=== PATIENT | female | born 1975 | race Caucasian/White ===

== ENCOUNTER 2016-05-05 16:12 | Inpatient (IN) | payer OTHER ==
[~2016-05-05] VITALS: Ht 167.6 cm; Wt 100.2 kg
[~2016-05-05 16:12] MED LIST: ALBUTEROL0.09 MG/A1 INH; ALBUTEROL1.25 MG/3 INH; AMITRIPTYLINE50 MG PO; ANUSOL-HC30 GM TOP; ATIVAN0.5 MG PO; ATIVAN1 M1 PO; ATIVAN1 MG PO; AUGMENTIN 875 M1 TAB PO; AUGMENTIN 875875 MG PO; BACTRIM 400 MG-1 TAB PO; BACTRIM DS 8001 TAB PO; BENADRYL25 MG PO; CLINDAMYCIN HC300 M1 PO; CYMBALTA 20 MG20 MG PO; DILAUDID2 MG PO; DIPHENHYDRAMINE25 M1 PO; DIPHENHYDRAMINE25 M4 PO; DRISDOL50000 UNIT PO; FLAGYL500 MG/100 IV; FORTAZ IV; GABAPENTIN300 MG PO; HYDROCORTISONE30 G1 TOP; HYDROXYZINE HCL50 M1 PO; HYDROXYZINE50 MG PO; KEFLEX500 MG PO; LANTUS SOLOS100 U/ML SC; LEVEMIR 10100 UNITS/ SC; LEVEMIR FL100 UNIT/1 SC; LEVEMIR FL300 UNITS/ SC; LEVEMIR FLEX100 U/M1 SC; LEVEMIR100 U/ML SC; LEVEMIR100 UNIT/1 SC; LEXAPRO5 MG PO; LOMOTIL 2.5-0.1 EACH PO; LORAZEPAM1 MG PO; LYRICA150 M1 PO; LYRICA25 MG PO; LYRICA75 M1 PO; MELATONIN3 MG PO; MICORT-HC28.4 GM TOP; MYCOSTATIN POWD15 GM TOP; Mucinex PO; NOVOLOG 10300 UNITS/ SC; NOVOLOG100 U/ML; NOVOLOG100 U/ML SC; NOVOLOG100 UNIT/2 SC; ONE DAILY MULT1 EAC2 PO; OXACILLIN SODIUM2 G1 IV; OXACILLIN SODIUM2 G2 IV; OXACILLIN2 GM/50 M1 IV; OXYCODONE HCL15 M1 PO; OXYCODONE HCL5 M1 PO; OXYCODONE5 M1 PO; OXYCONTIN15 MG PO; OXYCONTIN30 MG PO; PERCOCET 325 MG1 TA2 PO; PERCOCET 325 MG1 TAB PO; PERCOCET 5-3251 EACH PO; PHENERGAN25 M1 PO; PHENERGAN25 MG PR; PREDNISONE 20MG20 MG PO; PREDNISONE10 MG PO; PRILOSEC 20MG C20 MG PO; PROAIR HFA0.09 MG/Ac INH; PROAIR HFA0.09 MG/Ac PO; PROAIR HFA8.5 GM INH; PROMETHAZINE12.5 M1 PO; PROMETHAZINE25 M1 PO; PROPRANOLOL HCL20 M1 PO; REGLAN10 M1 PO; REGLAN10 MG PO; ROXICODONE15 M1 PO; ROXICODONE30 MG PO; ROXICODONE5 M1 PO; SEROQUEL (MONO200 MG PO; SEROQUEL 100MG100 MG PO; TRAMADOL HCL50 M1 PO; TRIAMCINOLONE A15 G3 TOP; TYLENOL TAB 32325 MG PO; VALIUM5 M2 PO; VANCOMYCIN 11000 MG IV; VANCOMYCIN HCL125 MG PO; VANCOMYCIN HCL5 G1 PO; XANAX1 M1 PO; ZOFRAN ODT4 M1 PO; ZOFRAN ODT4 M1 SL; ZOFRAN4 M2 PO; ZOSYN 4 GM/100100 ML OTHER
--- NOTE | 2016-05-05 16:15 | ED GENERAL ADULT ---
See Addendum History of Present Illness General Chief Complaint: Female Urogenital Problems Stated Complaint: BIBA PELVIC PAIN Source: patient Exam Limitations: poor historian Vital Signs & Intake/Output Vital Signs & Intake/Output Vital Signs Date Time Temp Pulse Resp B/P Pulse O2 O2 Flow FiO2 Ox Delivery Rate 05/05 2139 99.8 113 16 128/74 96 Room Air 05/05 1951 98.0 114 18 128/60 95 Room Air Room Air 05/05 1744 Room Air Room Air 05/05 1618 97.9 108 16 172/65 99 Room Air Allergies Coded Allergies: codeine (Intermediate, HIVES 05/05/16) nickel (Intermediate, RASH 05/05/16) adhesive tape (Mild, RASH 05/05/16) duloxetine (Intermediate, NAUSEA 05/05/16) hydrocodone (GI UPSET (ESOPHAGITIS) 05/05/16) ibuprofen (GI UPSET (ESOPHAGITIS) 05/05/16) Reconcile Medications Albuterol Sulfate (Proair Hfa) 90 MCG HFA.AER.AD 2 PUF INH Q4-6 PRN PRN SOB ( Reported) Diphenhydramine HCl (Benadryl) 25 MG CAPSULE 1 CAP PO Q6 PRN ITCHING ( Reported) Ergocalciferol (Vitamin D2) (Drisdol) 50,000 UNIT CAPSULE 1 CAP PO QW Supplement Please take one of these medications every week for the next eight weeks. After that, you will be required to take one every two weeks for mainainance of your vitamin D Levels. Hydrocortisone Acetate (Micort-Hc) 2.5 % CREAM.APPL 1 DEMETRA TOP TID ITCHING ( Reported) Hydroxyzine HCl 50 MG TABLET 1 TAB PO TID PRN itching Insulin Aspart (Novolog) 100 UNIT/ML VIAL 0 SC SEE ADMIN CRITERIA Diabetes Your insulin coverage was changed while in hospital. Sliding Scale Blood Sugar Less that 80mg/dl Initiate Hypoglycemia protocol 80-150 mg/dl 12 units 151-200 mg/dl 14 units 201-250 mg/dl 16 units 251-300 mg/dl 18 units 301-350 mg/dl 20 units 351-400 mg/dl 22 units More than 400 mg/dl 24 units call MD Please check your blood sugar at least three times a day. Inform your management consulting about this change. Insulin Detemir (Levemir) 100 UNIT/ML VIAL 50 UNITS SC BID DM (Reported) Ondansetron HCl (Zofran) 4 MG TABLET 1 TAB PO Q6-8P PRN nausea Oxacillin Sodium 2 GRAM VIAL.PORT 2,000 MG IV Q4 Sepsis Please dose 2000mg. Q4. IV. 100ml 0.9% NaCL Oxycodone HCl (Roxicodone) 15 MG TABLET 1 TAB PO TID PRN pain Pregabalin (Lyrica) 150 MG CAPSULE 1 CAP PO BID NEUROPATHY (Reported) Propranolol HCl 20 MG TABLET 1 TAB PO BID ANXIETY (Reported) Triage Nurses Notes Reviewed? yes Onset: Abrupt Duration: week(s): Timing: recent history Severity: severe HPI: 05/05/16 40-year-old female complains of severe pelvic pain. 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 She has severe pain in her pelvic area. The onset of the symptoms have been gradual, the duration has been days, the severity is significant as her symptoms required to come to the emergency department for care. She admits to low-grade fever. Also generalized myalgias. Past History Travel History Traveled to [place] past 21 day No Medical History Any Pertinent Medical History? see below for history Neurological: NONE EENT: hearing loss (? if real) Cardiovascular: NONE Respiratory: asthma Gastrointestinal: necrotizing fasciitis of the perineum Hepatic: NONE Renal: left pararenal abscess Musculoskeletal: OSTEOMYELITIS OF PUBIS PUBIS FX HX MRSA- CURRENTLY HAS PROLINE ACCESS L CHEST WALL FOR IV ABX. 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 FH: cirrhosis Hx Contributory? No Review of Systems Review of Systems Constitutional: Reports: fever. EENTM: Reports: no symptoms. Respiratory: Denies: short of breath. Cardiovascular: Reports: no symptoms. GI: Reports: abdominal pain (pelvic). Genitourinary: Reports: no symptoms. Musculoskeletal: Reports: see HPI. Skin: Reports: no symptoms. Neurological/Psychological: Reports: no symptoms. Hematologic/Endocrine: Reports: no symptoms. Physical Exam Physical Exam General Appearance: alert, awake, anxious, moderate distress Head: atraumatic, normal appearance Eyes: Bilateral: normal appearance, PERRL, EOMI. Ears, Nose, Throat: normal pharynx, normal ENT inspection Neck: normal inspection, supple Respiratory: normal breath sounds, chest non-tender, no respiratory distress Cardiovascular: regular rate/rhythm Peripheral Pulses: 4+ radial (R), 4+ radial (L) Gastrointestinal: soft, pain in bilateral inguinal ligament areas, severe tenderness with any motion of the pelvis, Back: decreased range of motion Extremities: pedal edema, tenderness Neurologic/Psych: no motor/sensory deficits, awake, alert, oriented x 3 Skin: intact, normal color, warm/dry Core Measures ACS in differential dx? No CVA/TIA Diagnosis: No Severe Sepsis Present: No Septic Shock Present: No Progress Differential Diagnoses I considered the following diagnoses in my evaluation of the patient: [ Hyponatremia, DKA, pelvic osteomyelitis, pelvic fracture, exacerbation of chronic.] Plan of Care: Orders Procedure Date/time Status Heart Healthy Diet 05/06 B Active BASIC ELECTROLYTES PLUS BUN&CR 05/05 2200 Active URINALYSIS 05/05 2137 Active FingerStick- Glucose 05/05 2136 Active URINE OSMOLALITY 05/05 2136 Active SERUM OSMOLALITY 05/05 2136 Active Patient Data 05/05 2135 Active Admit to inpatient 05/05 1912 Active Vital Signs 05/05 1912 Active Code Status 05/05 1912 Active EKG 05/05 1858 Active COMPREHENSIVE METABOLIC PANEL 05/05 162 Complete CBC WITHOUT DIFFERENTIAL 05/05 162 Complete Laboratory Tests 05/05/16 1725: Anion Gap 13, Estimated GFR > 60, BUN/Creatinine Ratio 29.0 H, Glucose 628 *H, Calcium 8.6, Total Bilirubin 1.0, AST 50 H, ALT 64 H, Alkaline Phosphatase 162 H, Total Protein 6.6, Albumin 3.7, Globulin 2.9, Albumin/Globulin Ratio 1.3, CBC w Diff MAN DIFF ORDERED, RBC 4.62, MCV 73.2 L, MCH 23.4 L, RDW 19.5 H, MPV 12.0 H, Gran % 94.9 H, Lymphocytes % 2.0 L, Monocytes % 2.8, Eosinophils % 0.3, Basophils % 0 L, Absolute Granulocytes 9.3 H, Segmented Neutrophils 43, Band Neutrophils 48 H, Absolute Lymphocytes 0.2 L, Lymphocytes 4 L, Monocytes 5, Absolute Monocytes 0.3, Absolute Eosinophils 0, Absolute Basophils 0, Platelet Estimate VERIFIED BY SMEAR, Polychromasia 1+, Anisocytosis 1+, PUBS MCHC 32.0 L, Fld Total RBCs Counted 100 Initial ED EKG: NSR Departure Departure Disposition: STILL A PATIENT Condition: Stable Clinical Impression Primary Impression: Hyponatremia Secondary Impressions: Chronic pain, Hyperglycemia Referrals: YUNG BENOIT MD (PCP/Family) Referred to [facility] as new patient No Departure Forms: Customer Survey General Discharge Information Comments The patient was treated with IV fluids (normal saline), IV insulin 10 units, IV Diluadid, IV Ativan, IV Zofran. She was admitted to the hospital for further care. Admission Note Spoke With: ANGEL WOOD MD Documentation of Exam: Documentation of any treatments & extenuating circumstances including Concerns Regarding Discharge (functional status, medication knowledge or non-compliance, living conditions, etc.) that warrant an admission rather than observation: [The patient needs IV normal saline, IV insulin, consider MRI of the pelvis, PT evaluation. The patient cannot manage in her current home setting.] Critical Care Note Critical Care Note Critical Care Time: non-applicable
--- NOTE | 2016-05-05 16:34 | NUR ---
PT BIBA TO [facility] C/C PELVIC PAIN WHICH IS CAUSING HER TO HAVE DIFFICULTY WITH AMBULATING. PT WAS SEEN HERE YESTERDAY FOR SAME AND D/C'D WITH INSTRUCTIONS ON CHRONIC PAIN AND PRESCRIPTIONS FOR OXYCODONE AND ZOFRAN. STATES SHE HAS BEEN TAKING THEM BUT HAS BEEN VOMITING AND UNABLE TO KEEP THEM DOWN. DR ALMARAZ OVER TO EVALUATE PATIENT ON ARRIVAL TO ER. PT HAS PREHOSPITAL PICC LINE, DR ALMARAZ ORDERING XRAY TO CONFIRM PLACEMENT.
--- NOTE | 2016-05-05 16:45 | NUR ---
PT MOVED TO [facility] RM 11
--- NOTE | 2016-05-05 16:56 | NUR ---
TO BEDSIDE FOR EVALUATION.
--- NOTE | 2016-05-05 17:04 | NUR ---
PORTABLE XRAY BEING DONE AT PRESENT
[2016-05-05 17:32] LABS: ABSOLUTE BASOPHIL COUNT 0 /CUMM (0.0-0.2); ABSOLUTE EOSINOPHIL COUNT 0 /CUMM (0.0-0.7); ABSOLUTE GRANULOCYTE CT 9.3 /CUMM (1.4-6.5); ABSOLUTE LYMPH COUNT 0.2 /CUMM (1.2-3.4); ABSOLUTE MONOCYTE COUNT 0.3 /CUMM (0.10-0.60); BASOPHIL % 0 % (0.0-2.0); EOSINOPHIL % 0.3 % (0-5); HEMATOCRIT 33.8 % (37-47); MEAN CORPUSCULAR HGB 23.4 PG (27.0-31.0); MEAN CORPUSCULAR VOLUME 73.2 FL (81.0-99.0); RBC DISTRIBUTION WIDTH 19.5 % (11.5-14.5); RED BLOOD CELL CT 4.62 /CUMM (4.20-5.40); WHITE BLOOD CELL COUNT 9.8 /CUMM (4.8-10.8)
--- NOTE | 2016-05-05 17:33 | RADIOLOGY REPORT ---
EXAMINATION: XR PORTABLE CHEST CLINICAL INFORMATION: Confirm PICC line position. COMPARISON: 03/06/2016 TECHNIQUE: AP portable semiupright view of the chest FINDINGS: Left IJ central venous catheter terminates in the SVC at the cavoatrial junction. Examination is somewhat apical lordotic. No consolidation. No effusion or pneumothorax. Cardiac and mediastinal contours are within normal limits. Pulmonary vasculature is unremarkable. Osseous structures are normal. IMPRESSION: Left IJ central venous catheter terminates at the cavoatrial junction.
--- NOTE | 2016-05-05 17:40 | NUR ---
PLACEMENT OF PREHOSPITAL CENTRAL LINE TO L CHEST WALL CONFIRMED VIA XRAY. OK TO USE PER DR ALMARAZ. LABS DRAWN/SENT IVF N/S INFUSION INITIATED AND PATIENT MEDICATED WITH ZOFRAN AND DILAUDID.
[2016-05-05 17:45] LABS: GRANULOCYTE % 94.9 % (42.2-75.2)
[2016-05-05 18:17] LABS: PLATELET COUNT 59 /CUMM (130-400)
--- NOTE | 2016-05-05 18:18 | NUR ---
CRITICAL TEST RESULTS [id number] SIS MARTINI 40 F TESTS AND RESULTS: GLUCOSE 628, SODIUM 114 Results received and read back by: MERY REYES Results received date and time: 05/05/161818 The following provider was notified of the results, and read the results back: DR ALMARAZ Notified date and time: 05/05/16 at 1819
--- NOTE | 2016-05-05 19:36 | NUR ---
PT CARE ASSUMED BY THIS RN AT THIS TIME. PT CHANGED INTO HOSPITAL GOWN, PT REFUSING TO CHANGE OUT OF PANTS. PT MEDICATED WITH ATIVAN 1MG IV, PHENERGAN 12.5MG IV AND NOVOLIN 10 UNITS IV. NS RUNNING AT 150ML/HR. PT REQUESTING MORE PAIN MEDICATION, DR. ALMARAZ MADE AWARE.
--- NOTE | 2016-05-05 22:53 | NUR ---
PT ASSISTED TO BEDSIDE COMMODE. URINE TRIO SENT.
--- NOTE | 2016-05-05 23:31 | NUR ---
HELD IV INFUSION PER HOUSESTAFF.
--- NOTE | 2016-05-06 00:30 | NUR ---
MOVED TO ROOM 16. MEDICATED WITH DILAUDID IVP, INSULINS ORDERED FOR FINGER STICK >500. MEDICATED WITH TYLENOL PO FOR TEMP 100.1. CALL LIGHT WITHIN REACH
--- NOTE | 2016-05-06 01:43 | NUR ---
BLOOD CULTURE FIRST SET DRAWN AND SENT. SECOND SET IN PROGRESS.
--- NOTE | 2016-05-06 02:40 | NUR ---
CT SCAN DONE. SECOND SET OF BLOOD CULTURES DRAWN AND SENT. AWAITING ANTIBIOTIC FROM PHARMACY. FINGER STICK 444. RECHECK TEMPERATURE 99.8. NOTIFIED HOUSE STAFF.
[2016-05-06 02:42] VITALS: BP 107/63
--- NOTE | 2016-05-06 03:20 | NUR ---
Emergency Dept UC Admit Note: To be admitted to [facility] by DR. WOOD with HYPERGLYCEMIA as the diagnosis, to HOLD NO BEDS location. Nursing Oxygen Equipment Aide and admitting notified 05/06/16 at
--- NOTE | 2016-05-06 03:36 | NUR ---
PT SOUND ASLEEP. NO S/S RESPIRATORY DISTRESS. O2 SAT 99%RA AT THIS TIME.
--- NOTE | 2016-05-06 04:19 | CT SCAN REPORT ---
EXAMINATION: CT ABDOMEN AND PELVIS WITHOUT CONTRAST CLINICAL INFORMATION: Abdominal pain COMPARISON: 04/16/2016 TECHNIQUE: Multidetector volumetric imaging was performed from the superior aspect of the liver through the pubic symphysis. Sagittal and coronal reformatted images were obtained on the technologist's workstation. DLP: 1330.77 mGy-cm. FINDINGS: LUNG BASES: There are mild dependent pulmonary opacities favoring atelectasis. LIVER, GALLBLADDER, AND BILIARY TREE: The liver is enlarged, measuring approximately 23 cm in craniocaudal dimension. No focal hepatic lesion or biliary ductal dilatation is present. The gallbladder is unremarkable with no evidence of radiopaque gallstones, gallbladder wall thickening, or obvious pericholecystic inflammatory changes. PANCREAS: Parenchymal atrophy is again noted. SPLEEN: Mildly enlarged, measuring approximately 14 cm in craniocaudal dimension. ADRENAL GLANDS: Unremarkable. KIDNEYS AND URETERS: No hydronephrosis bilaterally. No renal or ureteral calculi are identified. The previously seen subtle hypodensity in the posterior renal cortex is suboptimally assessed in the absence of intravenous contrast. BLADDER: Unremarkable. GASTROINTESTINAL TRACT: No evidence of bowel obstruction. No abnormal bowel wall thickening is seen. A suture line is noted in the transverse colon. The appendix is unremarkable. ABDOMINAL WALL: There is a small fat-containing umbilical hernia. LYMPH NODES: Scattered mesenteric and retroperitoneal subcentimeter lymph nodes are present, without significant enlargement by size criteria. VASCULAR: Scattered atherosclerotic calcifications are present. PELVIC VISCERA: Unremarkable. OSSEOUS STRUCTURES: There are essentially nondisplaced fractures of the anterior column of the right acetabulum as well as the right inferior pubic ramus; these are suspected to be subacute in nature, with minimal surrounding calcified callus formation. There is chronic osseous deformity around the pubic symphysis. Degenerative changes are noted in the spine. IMPRESSION: 1. No acute findings identified in the abdomen/pelvis. 2. Subacute appearing fractures of the right anterior acetabular column and inferior pubic ramus.
--- NOTE | 2016-05-06 04:40 | History & Physical ---
[facility] 05/06/16 0439: General Information and HPI MD Statement: I have seen and personally examined SIS MARTINI and documented this H&P. The patient is a 40 year old F who presented with a patient stated chief complaint of [right hip pain for 2 days]. Source of Information: patient, old records Exam Limitations: poor historian History of Present Illness: Ms. Martini is 40-year-old female with chief complaint of right pelvic and hip pain for 2 days. She has past medical history of osteomyelitis of pubis, necrotizing fasciitis of the perineum, hysterectomy, colostomy reversed, left renal abscess, C. difficile colitis,anxiety, depression, chronic pain disorder, chronic back pain,chronic anemia, insulin-dependent diabetes mellitus type 2 uncontrolled, DKA, recent fall with minimal displaced pelvic fracture, right shoulder cellulitis s/p incision and drainage on oxacillin to finish a course of 4 weeks (May 12) was discharged 04/18/16. The patient is a very poor historian. She reported that 2 days ago she started to have severe right hip and pelvic pain that radiated to her right abdomen, used to take oxcodeine for the pain but ran out of it 2 days ago, contacted Dr. Benoit (her pcp) looks like she didnot get a refill prescription. She has a very high glucose level on admission 600, reported not taking her insulin or levemir yesterday. She reported nausea and vomiting 3 times, fever, denied chills. She reported chest pain on and off on exertion. Allergies/Medications Allergies: Coded Allergies: codeine (Intermediate, HIVES 05/05/16) nickel (Intermediate, RASH 05/05/16) adhesive tape (Mild, RASH 05/05/16) duloxetine (Intermediate, NAUSEA 05/05/16) hydrocodone (GI UPSET (ESOPHAGITIS) 05/05/16) ibuprofen (GI UPSET (ESOPHAGITIS) 05/05/16) Home Med list Albuterol Sulfate (Proair Hfa) 90 MCG HFA.AER.AD 2 PUF INH Q4-6 PRN PRN SOB ( Reported) Diphenhydramine HCl (Benadryl) 25 MG CAPSULE 1 CAP PO Q6 PRN ITCHING ( Reported) Ergocalciferol (Vitamin D2) (Drisdol) 50,000 UNIT CAPSULE 1 CAP PO QW Supplement Please take one of these medications every week for the next eight weeks. After that, you will be required to take one every two weeks for mainainance of your vitamin D Levels. Hydrocortisone Acetate (Micort-Hc) 2.5 % CREAM.APPL 1 DEMETRA TOP TID ITCHING ( Reported) Hydroxyzine HCl 50 MG TABLET 1 TAB PO TID PRN itching Insulin Aspart (Novolog) 100 UNIT/ML VIAL 0 SC SEE ADMIN CRITERIA Diabetes Your insulin coverage was changed while in hospital. Sliding Scale Blood Sugar Less that 80mg/dl Initiate Hypoglycemia protocol 80-150 mg/dl 12 units 151-200 mg/dl 14 units 201-250 mg/dl 16 units 251-300 mg/dl 18 units 301-350 mg/dl 20 units 351-400 mg/dl 22 units More than 400 mg/dl 24 units call MD Please check your blood sugar at least three times a day. Inform your draw bench operator helper about this change. Insulin Detemir (Levemir) 100 UNIT/ML VIAL 50 UNITS SC BID DM (Reported) Ondansetron HCl (Zofran) 4 MG TABLET 1 TAB PO Q6-8P PRN nausea Oxacillin Sodium 2 GRAM VIAL.PORT 2,000 MG IV Q4 Sepsis Please dose 2000mg. Q4. IV. 100ml 0.9% NaCL Oxycodone HCl (Roxicodone) 15 MG TABLET 1 TAB PO TID PRN pain Pregabalin (Lyrica) 150 MG CAPSULE 1 CAP PO BID NEUROPATHY (Reported) Propranolol HCl 20 MG TABLET 1 TAB PO BID ANXIETY (Reported) Past History Travel History Traveled to [place] past 21 day No Medical History Neurological: NONE EENT: hearing loss (? if real) Cardiovascular: NONE Respiratory: asthma Gastrointestinal: necrotizing fasciitis of the perineum Hepatic: NONE Renal: left pararenal abscess Musculoskeletal: OSTEOMYELITIS OF PUBIS PUBIS FX HX MRSA- CURRENTLY HAS PROLINE ACCESS L CHEST WALL FOR IV ABX. Psychiatric: anxiety, chronic pain disorder, depression, opioid dependence, POLYSUBSTANCE ABUSE NARCOTIC DEPENDENCE SUICIDAL IDEATION Endocrine: INSULIN DEPENDENT DIABETES - noncompliant Blood Disorders: anemia Cancer(s): NONE BUILDING SERVICES TECHNICIAN/Reproductive: ECTOPIC Other Medical Hx: Left axillary abscess secondary to MSSA status post I&D November 2014 History of MRSA: No History of VRE: Yes History of CDIFF: Yes Surgical History Surgical History: , hysterectomy, D&C colostomy with reversal left axillary abscess November 2014 Past Family/Social History Family History Relations & Conditions if any FATHER (diabetese mellitis Currently 06/16/2015- unable to get any meaningful FHx from patient, s/p drug OD.). FH: cirrhosis Psychosocial History Who Do You Live With? with friend Primary Language: Vietnamese ETOH Use: denies use Illicit Drug Use: denies illicit drug use Living Will? no Power of Real Estate Appraiser/HCP? no Functional Ability ADLs Independent: dressing, eating, toileting, bathing. Ambulation: independent IADLs Independent: shopping, housework, finances, food prep, telephone, transportation , medication admin. Review of Systems Review of Systems Constitutional: Denies: see HPI. Exam & Diagnostic Data Last 24 Hrs of Vital Signs/I&O Vital Signs Date Time Temp Pulse Resp B/P Pulse O2 O2 Flow FiO2 Ox Delivery Rate 05/06 0742 98.7 122 18 123/56 96 05/06 0643 100.0 91 18 130/56 96 Room Air 05/06 0626 100.0 05/06 0242 99.8 111 24 107/63 94 Room Air 05/06 0236 99.8 05/06 0100 100.1 113 05/05 2330 101.1 114 20 145/64 96 Room Air 05/05 2139 99.8 113 16 128/74 96 Room Air 05/05 1951 98.0 114 18 128/60 95 Room Air Room Air 05/05 1744 Room Air Room Air 05/05 1618 97.9 108 16 172/65 99 Room Air Intake & Output 05/06 1600 05/06 0800 05/06 0000 Intake Total 1000 Output Total Balance 1000 Intake, IV 1000 Patient 100.244 kg 100.244 kg Weight Physical Exam General Appearance Alert, Cooperative, Mild Distress, orianted to time and person Skin No Rashes, No Breakdown, No Significant Lesion HEENT Atraumatic, PERRLA, EOMI, Mucous Membr. moist/pink Neck Supple, No JVD Cardiovascular Regular Rate, Normal S1, Normal S2, No Murmurs Abdomen Normal Bowel Sounds, mild tenderness on the right side Neurological Normal Speech, Strength at 5/5 X4 Ext, Normal Tone Extremities No Clubbing, No Cyanosis, No Edema, right shoulder wound, oozing pus , mutiple scratch beckwith over all over her body Vascular Normal Pulses Assessment/Plan Assessment: Ms. Martini is 40-year-old female with chief complaint of right pelvic and hip pain for 2 days. She has past medical history of osteomyelitis of pubis, necrotizing fasciitis of the perineum, hysterectomy, colostomy reversed, left renal abscess, C. difficile colitis,anxiety, depression, chronic pain disorder, chronic back pain,chronic anemia, insulin-dependent diabetes mellitus type 2 uncontrolled, DKA, recent fall with minimal displaced pelvic fracture, right shoulder cellulitis s/p incision and drainage on oxacillin to finish a course of 4 weeks (May 12) was discharged 04/18/16. On admission Vital signs temperature 97.9, pulse 108, respirations 16. 99% saturation, blood pressure 172/65 TUTORING ASSISTANT 9.5, H&H 10.8/33.8, platelets 59, sodium 114, AST 50, ALT 64, alkaline phosphatase 162 Problem list #Right hip/pelvic pain #Right abdomen pain #Right shoulder cellulitis/osteomyelitis #Chronic pain #Thrombocytopenia #Hyponatremia #Right hip/pelvic pain -History of minimally displaced fracture of the right inferior pubic ramus. Orthopedic consultation was obtained during last admission, with recommendation for mobilization out of bed, and weightbearing as tolerated on the right lower extremity. #Right abdomen pain -We'll obtain abdomen CT to rule out other causes #Right shoulder cellulitis/osteomyelitis -Patient supposed to finish 4 weeks of IV oxacillin, PICC line was placed patent with no erythema. -It's not clear when the last time patient received last dose of oxacillin -Will receive amoxicillin to finish total of 4 weeks -We'll get shoulder x-ray to rule out osteomyelitis #Chronic pain -Patient used to complain of pain all over, was on OxyContin that ran out 2 days ago #Thrombocytopenia -new finding, had normal level during last admission one month ago -f/u CBC -CT abdomin for any signs of splenomegally - No history of bleeding -Could be drug related -Consider hepatitis panel and HIV #Hyponatremia -Consider serum osmolarity -Check urine sodium excretion and urine osmolarity -Patient has history of chronic pain but couldn't participate SIAADH Diet regular diet DVT prophylaxis heparin subcutaneous Full code As Ranked By This Provider Problem List: 1. Pubic ramus fracture 2. Diabetes mellitus 3. Cellulitis 4. Skin abscess Core Measures/Miscellaneous Acute Coronary Syndrome ACS Diagnosis: No Cerebrovascular Accident CVA/TIA Diagnosis: No Congestive Heart Failure CHF Diagnosis: No Venous Thromboembolism VTE Risk Factors: Acute medical illness VTE Prophylaxis Ordered Inpt: Pharm- Heparin No Mech VTE prophylaxis d/t: No contraindications No VTE Pharm Prophylaxis d/t: No contraindications VTE Diagnosis: No VTE Type: NONE VTE Confirmed by (Test): NONE Severe Sepsis Severe Sepsis Present: No Septic Shock Septic Shock Present: No Miscellaneous Documentation Attending Case Discussed With: ANGEL WOOD MD Primary Care Physician: YUNG BENOIT MD Patient sees these Specialists endocrine Level of Patient Care: General Medicine RIC LEGER MD 05/06/16 0443: Resident Review Statement Resident Statement: examined this patient, discussed with brand marketing intern, agreed with brand marketing intern Other Findings: 40 YO F with pmh of chronic pain, uncontrolled dm, asthma, osteomyelits presents to the er complaining of severe abdominal pain that will not provide clear description. Despite multipe times proving about context of pain provides limited details, only yelling that pain is severe in her lower abdomen. She is found to have elevated bloodsugars w/o gap. Admits to not taking medications as prescribed, however will not provide a reason for non complaince. was recently admitted and discharged on oxacillin that is to be continued until 05/12/16 by the recommendation of ID for recurrent staph infection in deltoid region. Soduim 114, in the presence of BS 628, correction 122. Imaging demonstates no new findings. We will provide pain control at this time, control her sugars with basal-bolus coverage, continue antibiotics as recommended by ID. Monitor Na levels. DVT ppx platelets low, started heparin, monitor closely. ANGEL WOOD 05/06/16 0928: Attending MD Review Statement Attending Statement Attending MD Statement: examined this patient, discuss w/resident/PA/BUILDING PERFORMANCE SPECIALIST, agreed w/resident/PA/BUILDING PERFORMANCE SPECIALIST, reviewed EMR data (avail), reviewed images, amended to note Attending Assessment/Plan: CC: Pain all over, especially right hip PMHx : DM, chronic pain, anxiety depression, history of C. difficile, history of osteomyelitis of pubis, history of necrotizing fasciitis of perineum, history of MRSA infections, history of renal abscess, status post hysterectomy. Patient has extensive past medical history along with the chronic pain and opiate dependence came for multiple location pain especially right hip pain according to ER notes patient mentioned that "my pelvic osteomyelitis is acting up." Patient has a central line in she takes antibiotics at home. Patient constantly cries and does not provide any history. She was recently admitted and discharged for right scapular area region abscess status post I/D and on antibiotics. Tmax 101.1, Tachycardia, BP stable, saturating well on room air. On exam a O 3, extremely anxious, and cries most of the time, RS: Clear CVS: S1-S2 RRR abdomen: Some fall smelling discharge in her umbilicus, abdominal fold shows fungal infection, otherwise abdomen soft bowel sounds present. Complete examination of her skin shows unhealthy granulation of the right shoulder/scapular region wound. Multiple skin lesions without signs of infection, PICC line on the left side. dressed, I could not see the site for inflammation. NO ulcers on dependent area on back or pelvis. No focal neuro deficit but she does move her right LE, due to pain. NO obvious effusion. Labs: WBC 9.8 but neutrophils 94%. Platelets 59, sodium 114, glucose 629, AST 50, ALT 62, alkaline phosphatase 162, anion gap 13. UA shows ketone no leukocyte esterase or nitrites. CXR: Left IJ CT abdomen and pelvis: Subacute appearing fractures of the right anterior acetabular column and inferior pubic ramus. A and P #1 hyponatremia: sodium 114 patient has chronic hyponatremia but this is lower than her previous values. Even though it's corrected for pseudohyponatremia secondary to hyperglycemia, her stool sodium is still around 122, does not have any neurological symptoms, checked urine osmolality serum osmolality. Patient received some IV fluids in ER. Saline lock IV, it appears more like SIADH been volume restrict, and correct glucose with subcutaneous insulin and basal insulin. (Avoid corrected sodium increase more than 8-10 mEq per 24-hour) #2 hyperglycemia: patient has been noncompliant and reportedly comes for hyperglycemia. Continue basal and sliding scale insulin. #3 chronic pain: Currently patient has is right hip pain, CT abdomen and pelvis shows old pubic rami fracture. Obtained x-ray of her right hip. #4 patient is febrile in ER, uncertain source of infection except her recent abscess which was drained and dressed and scapular region. Does not have any other skin infections after complete examination. Chest x-ray and chest examination is clear. CT abdomen and pelvis unremarkable. Continue her oxacillin. Consult ID #[id number] depression and anxiety continue her home medications. #6 DVT prophylaxis, pain pathway for pain control.
--- NOTE | 2016-05-06 05:00 | NUR ---
FINGER STICK 326. PAGED HOUSE STAFF.
--- NOTE | 2016-05-06 05:00 | NUR ---
NOTED DEEP 4CMX 4CM DEEP OPEN ABCESS WOUND ON RIGHT SHOULDER. NO DRAINS NOTED.
--- NOTE | 2016-05-06 05:14 | NUR ---
NOTIFIED HOUSE STAFF ABOUT PT'S FINGER STICK 326. NO NEW ORDER.
--- NOTE | 2016-05-06 06:42 | NUR ---
IV OXACILLIN INFUSING ORDERED. TYLENOL PO FOR [id number]. DILAUDID IVP ORDERED.
--- NOTE | 2016-05-06 07:40 | NUR ---
PT AWAKE AND ALERT,COMPLAINS OF ALL OVER BODY PAIN BUT STATES THAT SHE HAD IMPROVEMENT FROM HER PRN PAIN MEDICATION, PT SINUS TACH ON MONITOR WITH HR 122, AND FS 410, HOUSE STAFF AWARE OF HR AND BS, PT MEDICATED WITH 14 UNITS INSULIN PER ORDER, PT O2 SAT NOTED TO BE 86 % ON RA WHILE PT AT REST, PLACED ON 2L VIA NC AND SAT UP TO 94 % . HOUSE STAFF AT BEDSIDE
--- NOTE | 2016-05-06 08:24 | Admission Certification ---
Admission Certification Certification Statement - As attending physician, I certify that at the time of - admission, based on clinical presentation, severity of - symptoms, need for further diagnostic testing and - therapeutic interventions, and risk of adverse outcomes - without in-hospital treatment, in my clinical assessment, - this patient requires an acute hospital stay for a minimum - of two nights or longer. I have also considered psychsocial - factors such as support system, advanced age, financial - issues, cognitive issues, and failed out-patient treatments, - past re-admission history, safety of patient, and lack of - compliance as applicable. Specific rationale supporting this admission is: hyponatremia, nyperglycemia
--- NOTE | 2016-05-06 08:36 | NUR ---
PT MEDICATED WITH ADDITIONAL 1 MG DILAUDID AT THIS TIME
[2016-05-06 09:01] VITALS: BP 123/56
--- NOTE | 2016-05-06 09:07 | NUR ---
LEFT FOR XRAY
--- NOTE | 2016-05-06 09:35 | NUR ---
PHARMACY CALLED FOR 10 AM MEDS
--- NOTE | 2016-05-06 09:36 | RADIOLOGY REPORT ---
EXAMINATION: XR SHOULDER, RIGHT CLINICAL INFORMATION: Injury COMPARISON: Chest radiograph performed previous day TECHNIQUE: 3 views FINDINGS: There is normal alignment. No fracture is demonstrated. No soft tissue calcifications or radiopaque foreign body. IMPRESSION: No acute finding.
--- NOTE | 2016-05-06 11:10 | NUR ---
CARE ASSUMED BY THIS RN NOW. PT SLEEPING, NORMAL RR NOTED.
--- NOTE | 2016-05-06 12:18 | NUR ---
LACTIC DRAWN AND SENT TO LAB.
--- NOTE | 2016-05-06 12:19 | NUR ---
PT MEDICATED WITH INSULIN PER EMAR.
--- NOTE | 2016-05-06 12:23 | PN- Att Addend ---
Attending Addendum Attending Brief Note Patient seen and examined. Lying in bed in the emergency room sleepy but easily aroused. Patient reports not feeling well for the past several days. She admits to not taking her insulin yesterday due to her malaise. She reports that she continues to have pain in the pelvic area and hips. She reports that at home the pain was controlled with analgesia 6 but she ran out of prescriptions. She reports current emergency room for evaluation in order to obtain more pain medications. The ER she was found to be markedly hyperglycemic and referred for inpatient admission. While in the emergency room about 7 patient has been tachycardic (sinus per EKG) , blood pressure occasionally in the low 100 and a MAXIMUM TEMPERATURE of 101 overnight. Blood cultures have returned with gram-positive cocci in clusters in 1 sets of cultures. Patient recently completed 14 days of oral vancomycin and is to complete a four- week course of oxacillin next week for MSSA bacteremia and the right trapezius wound. She had a negative CT scan of the abdomen and pelvis overnight and negative MONICA last week. Vital Signs Date Time Temp Pulse Resp B/P Pulse O2 O2 Flow FiO2 Ox Delivery Rate 05/06 1058 98.9 112 18 120/52 96 Nasal 2.0L Cannula 05/06 1051 96.9 113 18 152/70 05/06 0909 94 Nasal 2.0L Cannula 05/06 0901 98.7 122 20 123/56 94 Nasal 2.0L Cannula 05/06 0742 98.7 122 18 123/56 96 05/06 0643 100.0 91 18 130/56 96 Room Air 05/06 0626 100.0 05/06 0242 99.8 111 24 107/63 94 Room Air 05/06 0236 99.8 05/06 0100 100.1 113 05/05 2330 101.1 114 20 145/64 96 Room Air 05/05 2139 99.8 113 16 128/74 96 Room Air 05/05 1951 98.0 114 18 128/60 95 Room Air Room Air 05/05 1744 Room Air Room Air 05/05 1618 97.9 108 16 172/65 99 Room Air Intake & Output 05/06 1600 05/06 0800 05/06 0000 Intake Total 340 1000 Output Total Balance 340 1000 Intake, IV 1000 Intake, Oral 340 Patient 100.244 kg 100.244 kg Weight Gen. appearance: Obese, not in acute distress Neurologic: Alert and oriented 3 when awake with no gross focal deficit. Extremities: She has a 3 x 3 cm deep ulcer over the right trapezius muscle. It is extremely foul-smelling with a purulent discharge. The surrounding skin has no erythema. It is nontender to touch. She has no tenderness over the shoulder. Range of motion is intact. Trace pedal edema bilaterally. She has capillary refill greater than 2 seconds. Pulses are normal. Skin is warm and not cyanotic. HEENT: Anicteric, no pallor. Heart: S1-S2 regular Lungs: Good entry bilaterally, clear to auscultation. PICC line is intact with no surrounding erythema at the point of insertion. Abdomen: Soft, nontender with normal bowel sounds Laboratory Tests 05/06/16 0635: Anion Gap 12, Estimated GFR 55 L, BUN/Creatinine Ratio 27.3 H 05/05/16 2250: Urine Osmolality 404 05/05/16 2250: Urinalysis LIGHT H, Urine Color STRAW, Urine Clarity CLDY H, Urine pH 6.0, Ur Specific Cowan 1.010, Urine Protein NEG, Urine Ketones 15 H, Urine Nitrite NEG, Urine Bilirubin NEG, Urine Urobilinogen 0.2, Ur Leukocyte Esterase NEG, Ur Microscopic SEDIMENT EXAMINED, Urine RBC 1-3, Urine WBC 5-10 H, Ur Epithelial Cells MOD H, Urine Mucus RARE, Urine Hemoglobin LARGE H, Urine Glucose >=1000 H 05/05/16 2230: Anion Gap 13, Estimated GFR > 60, BUN/Creatinine Ratio 27.0 H, Glucose 494 H, Serum Osmolality 293 05/05/16 2136: Serum Osmolality Cancelled 05/05/16 1725: Anion Gap 13, Estimated GFR > 60, BUN/Creatinine Ratio 29.0 H, Glucose 628 *H, Calcium 8.6, Total Bilirubin 1.0, AST 50 H, ALT 64 H, Alkaline Phosphatase 162 H, Total Protein 6.6, Albumin 3.7, Globulin 2.9, Albumin/Globulin Ratio 1.3, CBC w Diff MAN DIFF ORDERED, RBC 4.62, MCV 73.2 L, MCH 23.4 L, RDW 19.5 H, MPV 12.0 H, Gran % 94.9 H, Lymphocytes % 2.0 L, Monocytes % 2.8, Eosinophils % 0.3, Basophils % 0 L, Absolute Granulocytes 9.3 H, Segmented Neutrophils 43, Band Neutrophils 48 H, Absolute Lymphocytes 0.2 L, Lymphocytes 4 L, Monocytes 5, Absolute Monocytes 0.3, Absolute Eosinophils 0, Absolute Basophils 0, Platelet Estimate VERIFIED BY SMEAR, Polychromasia 1+, Anisocytosis 1+, PUBS MCHC 32.0 L, Fld Total RBCs Counted 100 Microbiology 05/06 1115 URINE ROUT: Urine Culture - ORD 05/06 0230 BLOOD: Blood Culture - RECD 05/06 0100 BLOOD: Blood Culture - RES GRAM POSITIVE COCCI Problems: 1. Sepsis secondary to bacteremia and nonhealing right trapezius cellulitis 2. Uncontrolled diabetes; likely secondary to underlying infection or medication compliance. 3. Chronic pain syndrome 4. Hyponatremia secondary to hyperglycemia. 5. History of pelvic fracture. 6. Chronic anemia Plan: -Follow-up with the ID service regarding appropriate antibiotic regimen. -Wound care consult. -We'll consider further imaging of the shoulder after discussing with ID service to rule out underlying abscess or bone involvement. -Obtain baseline ESR. -Obtain by pain regimen. -Patient has been restarted on her home insulin regimen. Monitor blood glucose levels closely. Levels have currently improved significantly from admission.
--- NOTE | 2016-05-06 13:24 | NUR ---
LAV SENT TO LAB NOW. PT SLEEPING, NORMAL RR NOTED. AROUSABLE TO VERBAL STIMULI.
--- NOTE | 2016-05-06 14:13 | NUR ---
PT ASSIGNED TO ROOM 221, RN NOTIFIED
--- NOTE | 2016-05-06 14:49 | NUR ---
DR. COWART AT BEDSIDE.
--- NOTE | 2016-05-06 15:05 | NUR ---
REPORT GIVEN TO REINA GRESHAM.
--- NOTE | 2016-05-06 15:12 | NUR ---
IV NS BOLUS INFUSING NOW.
--- NOTE | 2016-05-06 15:34 | NUR ---
PT MEDICATED WITH TYLENOL FOR PAIN.
--- NOTE | 2016-05-06 16:19 | NUR ---
pt arrived on unit from ED on stretcher, pt was a Ax3 onto bed and c/o pain to r hip. pt has r chest proline with NS bolus infusing. abx line was backed up with blood, abx line was disconnected and flushed witn 10ml ns. pt was noteded to be incontinent of urine, yao was placed per order and drained cloudy urine, interin denis rodríguez notified. pt c/o pain to r hip requesting pain meds before being turned and having extra bedding removed. VS bp 100/70, hr 116, o2 97 on 2lnc. oriented to room bed controls and call button. will cont to monitor
--- NOTE | 2016-05-06 16:27 | Cons- Infect Disease ---
General Information and HPI Consulting Request Date of Consult: 05/06/16 Requested By: ANGEL WOOD MD Reason for Consult: Positive blood cultures for gram-positive cocci in clusters Source of Information: patient, old records History of Present Illness: This is a 40-year-old woman with diabetes, with a history of necrotizing fasciitis of the perineum with osteomyelitis of the pubic symphysis over one year prior to admission, treated with multiple surgeries, including a temporary colostomy, which was complicated by a nonhealing abdominal wound, hospitalized 6 months prior to admission with MSSA sepsis secondary to a pararenal abscess, requiring drainage and a four-week course of IV antibiotics, with a relapse for which she required another four-week course of IV antibiotics, followed by several weeks of oral antibiotics, which was complicated by C. difficile 3 months prior to admission, treated with a two-week course of po Vancomycin, hospitalized 3 1/2 weeks prior to admission, after several falls, found to have a minimally displaced fracture of the right inferior pubic ramus and with a right trapezius infection, drained at the bedside, with no cultures obtained, but with blood cultures again positive for MSSA, and with C. difficile again positive, treated with Oxacillin and po Vancomycin, with a Pro-Line inserted and discharged after one week on Oxacillin to complete a four-week course, and po Vancomycin to complete a two-week course, seen in the ER 9 days after discharge with "pelvic pain", treated with pain meds, seen again in the ER 1 day prior to admission with pain in the right upper back and right hip, found to be afebrile and discharged on pain meds, admitted on May 05 after returning to the emergency room with pelvic pain causing her difficulty in ambulating. On admission she was febrile to 101.1. Laboratory data revealed a white blood cell count of 10,000, with 43 segs and 48 bands, platelet count 59,000, glucose 628, BUN/creatinine 29 and 1.0, sodium 114, alk phosphatase 162, AST/ALT 50 and 64. Urinalysis 1-3 RBC/5-10 WBCs. Chest x-ray was negative. CT of the abdomen and pelvis without contrast revealed subacute appearing fractures of the right anterior acetabular column and inferior pubic ramus, with a mildly enlarged spleen. X-ray of the right shoulder was negative. She was restarted on Oxacillin. She had low-grade fevers of 100 this morning. At present she complains of pain all over, particularly in her hips, hands and lower back. She notes nausea and abdominal discomfort, but no significant diarrhea. She denies any respiratory symptoms and has had no urinary complaints. She does report undocumented fevers at home and chills. Allergies/Medications Allergies: Coded Allergies: codeine (Intermediate, HIVES 05/05/16) nickel (Intermediate, RASH 05/05/16) adhesive tape (Mild, RASH 05/05/16) duloxetine (Intermediate, NAUSEA 05/05/16) hydrocodone (GI UPSET (ESOPHAGITIS) 05/05/16) ibuprofen (GI UPSET (ESOPHAGITIS) 05/05/16) Home Med List: Albuterol Sulfate (Proair Hfa) 90 MCG HFA.AER.AD 2 PUF INH Q4-6 PRN PRN SOB ( Reported) Diphenhydramine HCl (Benadryl) 25 MG CAPSULE 1 CAP PO Q6 PRN ITCHING ( Reported) Ergocalciferol (Vitamin D2) (Drisdol) 50,000 UNIT CAPSULE 1 CAP PO QW Supplement Please take one of these medications every week for the next eight weeks. After that, you will be required to take one every two weeks for mainainance of your vitamin D Levels. Hydrocortisone Acetate (Micort-Hc) 2.5 % CREAM.APPL 1 DEMETRA TOP TID ITCHING ( Reported) Hydroxyzine HCl 50 MG TABLET 1 TAB PO TID PRN itching Insulin Aspart (Novolog) 100 UNIT/ML VIAL 0 SC SEE ADMIN CRITERIA Diabetes Your insulin coverage was changed while in hospital. Sliding Scale Blood Sugar Less that 80mg/dl Initiate Hypoglycemia protocol 80-150 mg/dl 12 units 151-200 mg/dl 14 units 201-250 mg/dl 16 units 251-300 mg/dl 18 units 301-350 mg/dl 20 units 351-400 mg/dl 22 units More than 400 mg/dl 24 units call MD Please check your blood sugar at least three times a day. Inform your general scrap worker about this change. Insulin Detemir (Levemir) 100 UNIT/ML VIAL 50 UNITS SC BID DM (Reported) Ondansetron HCl (Zofran) 4 MG TABLET 1 TAB PO Q6-8P PRN nausea Oxacillin Sodium 2 GRAM VIAL.PORT 2,000 MG IV Q4 Sepsis Please dose 2000mg. Q4. IV. 100ml 0.9% NaCL Oxycodone HCl (Roxicodone) 15 MG TABLET 1 TAB PO TID PRN pain Pregabalin (Lyrica) 150 MG CAPSULE 1 CAP PO BID NEUROPATHY (Reported) Propranolol HCl 20 MG TABLET 1 TAB PO BID ANXIETY (Reported) Past History Travel History Traveled to [place] past 21 day No Medical History Neurological: NONE EENT: hearing loss Cardiovascular: NONE Respiratory: asthma Gastrointestinal: necrotizing fasciitis of the perineum Hepatic: NONE Renal: left pararenal abscess Musculoskeletal: OSTEOMYELITIS OF PUBIS PUBIS FX Psychiatric: anxiety, chronic pain disorder, depression, opioid dependence, POLYSUBSTANCE ABUSE NARCOTIC DEPENDENCE SUICIDAL IDEATION Endocrine: INSULIN DEPENDENT DIABETES - noncompliant Blood Disorders: anemia Cancer(s): NONE STUDIO ASSISTANT/Reproductive: ECTOPIC Other Medical Hx: Left axillary abscess secondary to MSSA status post I&D November 2014 Right deltoid abscess March 2016 secondary to MSSA History of MRSA: No History of VRE: Yes History of CDIFF: Yes Isolation History: Contact Surgical History Surgical History: , hysterectomy, D&C colostomy with reversal left axillary abscess November 2014 Family History Relations & Conditions If Any: FATHER (diabetese mellitis Currently 06/16/2015- unable to get any meaningful FHx from patient, s/p drug OD.). FH: cirrhosis Psychosocial History Where Do You Live? Home Who Do You Live With? with friend Primary Language: Portuguese Smoking Status: Current Everyday Smoker ETOH Use: denies use Illicit Drug Use: denies illicit drug use Living Will? no Power of Wax Pourer/HCP? no Functional Ability ADLs Independent: dressing, eating, toileting, bathing. Ambulation: independent IADLs Independent: shopping, housework, finances, food prep, telephone, transportation , medication admin. Review of Systems Review of Systems Cardiovascular: Denies: chest pain. Respiratory: Denies: cough, short of breath. GI: Reports: see HPI. Genitourinary: Reports: no symptoms. Musculoskeletal: Reports: back pain, joint pain, muscle pain, neck pain. Skin: Reports: rash (pruritus). All Other Systems: Reviewed and Negative Exam & Diagnostic Data Last 24 Hrs of Vital Signs/I&O Vital Signs Date Time Temp Pulse Resp B/P Pulse O2 O2 Flow FiO2 Ox Delivery Rate 05/06 1458 100/50 05/06 1431 98.7 96 18 99/54 96 05/06 1058 98.9 112 18 120/52 96 Nasal 2.0L Cannula 05/06 1051 96.9 113 18 152/70 05/06 0909 94 Nasal 2.0L Cannula 05/06 0901 98.7 122 20 123/56 94 Nasal 2.0L Cannula 05/06 0742 98.7 122 18 123/56 96 05/06 0643 100.0 91 18 130/56 96 Room Air 05/06 0626 100.0 05/06 0242 99.8 111 24 107/63 94 Room Air 05/06 0236 99.8 05/06 0100 100.1 113 05/05 2330 101.1 114 20 145/64 96 Room Air 05/05 2139 99.8 113 16 128/74 96 Room Air 05/05 1951 98.0 114 18 128/60 95 Room Air Room Air 05/05 1744 Room Air Room Air Intake & Output 05/06 1600 05/06 0800 05/06 0000 Intake Total 540 1000 Output Total 0 Balance 540 1000 Intake, IV 200 1000 Intake, Oral 340 Output, Urine 0 Patient 221 lb 221 lb Weight Physical Exam Other Physical Findings: She is awake and alert in no acute distress. MAXIMUM TEMPERATURE 101.1. Skin reveals scattered excoriations. HEENT exam is negative. Neck is supple with no adenopathy. Chest left upper chest Pro-Line catheter site with no inflammation. Lungs are clear. Heart regular rhythm with no murmur. Abdomen is soft, mildly tender over the lower abdomen, with no guarding or rebound, positive bowel sounds. Back right upper back wound clean, with a necrotic eschar, but with no purulent drainage, induration or surrounding erythema; no CVA tenderness. Extremities no cyanosis, clubbing or edema; limited exam secondary to pain on flexion of her hips. Neuro is without focality. Last 24 Hours of Lab Results: Laboratory Tests 05/06 05/06 05/06 05/05 1320 1215 0635 2250 Chemistry Sodium (137 - 145 mmol/L) 129 L Potassium (3.5 - 5.1 mmol/L) 4.3 Chloride (98 - 107 mmol/L) 93 L Carbon Dioxide (22 - 30 mmol/L) 24 Anion Gap (5 - 16) 12 BUN (7 - 17 mg/dL) 30 H Creatinine (0.5 - 1.0 mg/dL) 1.1 H Estimated GFR (>60 ml/min) 55 L BUN/Creatinine Ratio (7 - 25 %) 27.3 H Lactic Acid (0.7 - 2.1 mmol/L) 1.5 Hematology ESR Westergren (0 - 20 MM) 7 Urines Urine Osmolality (300 - 1000 MOSM/KG) 404 05/05 05/05 05/05 2250 2230 2136 Chemistry Sodium (137 - 145 mmol/L) 123 L Potassium (3.5 - 5.1 mmol/L) 4.8 Chloride (98 - 107 mmol/L) 89 L Carbon Dioxide (22 - 30 mmol/L) 22 Anion Gap (5 - 16) 13 BUN (7 - 17 mg/dL) 27 H Creatinine (0.5 - 1.0 mg/dL) 1.0 Estimated GFR (>60 ml/min) > 60 BUN/Creatinine Ratio (7 - 25 %) 27.0 H Glucose (65 - 99 mg/dL) 494 H Serum Osmolality (285 - 295 MOSM/KG) 293 Cancelled Urines Urinalysis LIGHT H Urine Color (YEL,AMB,STR) STRAW Urine Clarity (CLEAR) CLDY H Urine pH (5.0 - 8.0) 6.0 Ur Specific Moodus (1.001 - 1.035) 1.010 Urine Protein (NEG,<30 MG/DL) NEG Urine Ketones (NEG) 15 H Urine Nitrite (NEG) NEG Urine Bilirubin (NEG) NEG Urine Urobilinogen (0.1 - 1.0 EU/dl) 0.2 Ur Leukocyte Esterase (NEG) NEG Ur Microscopic SEDIMENT EXAMINED Urine RBC (0 - 5 /HPF) 1-3 Urine WBC (0 - 2 /HPF) 5-10 H Ur Epithelial Cells (NONE,FEW) MOD H Urine Mucus (FEW,NONE) RARE Urine Hemoglobin (NEG) LARGE H Urine Glucose (N MG/DL) >=1000 H 05/05 1725 Chemistry Sodium (137 - 145 mmol/L) 114 *L Potassium (3.5 - 5.1 mmol/L) 5.4 H Chloride (98 - 107 mmol/L) 80 L Carbon Dioxide (22 - 30 mmol/L) 21 L Anion Gap (5 - 16) 13 BUN (7 - 17 mg/dL) 29 H Creatinine (0.5 - 1.0 mg/dL) 1.0 Estimated GFR (>60 ml/min) > 60 BUN/Creatinine Ratio (7 - 25 %) 29.0 H Glucose (65 - 99 mg/dL) 628 *H Calcium (8.4 - 10.2 mg/dL) 8.6 Total Bilirubin (0.2 - 1.3 mg/dL) 1.0 AST (14 - 36 U/L) 50 H ALT (9 - 52 U/L) 64 H Alkaline Phosphatase (<127 U/L) 162 H Total Protein (6.3 - 8.2 g/dL) 6.6 Albumin (3.5 - 5.0 g/dL) 3.7 Globulin (1.9 - 4.2 gm/dL) 2.9 Albumin/Globulin Ratio (1.1 - 2.2 %) 1.3 Hematology CBC w Diff MAN DIFF ORDERED WBC (4.8 - 10.8 /CUMM) 9.8 RBC (4.20 - 5.40 /CUMM) 4.62 Hgb (12.0 - 16.0 G/DL) 10.8 L Hct (37 - 47 %) 33.8 L MCV (81.0 - 99.0 FL) 73.2 L MCH (27.0 - 31.0 PG) 23.4 L RDW (11.5 - 14.5 %) 19.5 H Plt Count (130 - 400 /CUMM) 59 L MPV (7.4 - 10.4 FL) 12.0 H Gran % (42.2 - 75.2 %) 94.9 H Lymphocytes % (20.5 - 51.1 %) 2.0 L Monocytes % (1.7 - 9.3 %) 2.8 Eosinophils % (0 - 5 %) 0.3 Basophils % (0.0 - 2.0 %) 0 L Absolute Granulocytes (1.4 - 6.5 /CUMM) 9.3 H Segmented Neutrophils (42.2 - 75.2 %) 43 Band Neutrophils (0.0 - 5.0 %) 48 H Absolute Lymphocytes (1.2 - 3.4 /CUMM) 0.2 L Lymphocytes (20.5 - 51.1 %) 4 L Monocytes (1.7 - 9.3 %) 5 Absolute Monocytes (0.10 - 0.60 /CUMM) 0.3 Absolute Eosinophils (0.0 - 0.7 /CUMM) 0 Absolute Basophils (0.0 - 0.2 /CUMM) 0 Platelet Estimate (ADEQUATE) VERIFIED BY SMEAR Polychromasia 1+ Anisocytosis 1+ PUBS MCHC (33.0 - 37.0 G/DL) 32.0 L Other Body Source Fld Total RBCs Counted (%) 100 Last 24 Hours of Haris Results: Blood cultures 2 May 06 positive for gram-positive cocci in clusters Diagnostic Data Recent Imaging Findings: Chest x-ray May 05, personally reviewed, negative CT of the abdomen and pelvis without contrast May 06 subacute appearing fractures of the right anterior acetabular column and inferior pubic ramus X-ray of the right shoulder negative Assessment/Plan Assessment/Plan Impression: This is a 40-year-old woman with diabetes, multiple infections including necrotizing fasciitis of the perineum, recurrent MSSA sepsis over the past 6 months, initially associated with a left pararenal abscess, which appears to have resolved, and, most recently, a right trapezius infection, for which she is currently on Oxacillin, and with a right pubic ramus fracture diagnosed on her last hospitalization secondary to a previous fall, and with 2 episodes of C. difficile over the past 3 months, admitted on May 05 with pelvic pain, found to be febrile with a normal white blood cell count but with significant bandemia, and with blood cultures again positive for gram-positive cocci in clusters. If this proves to be MSSA this would imply that she has an occult focus of infection, for example an abscess, which was likely seeded from her recent bacteremia. Areas of concern would include her lower back or pelvis, including the right hip, given her current complaints, though the CT scan does not demonstrate any obvious collection, as well as endocarditis, with with splenomegaly noted on the CT scan, (she had a negative transthoracic echo on her recent admission, but no MONICA was done). Her Pro-Line catheter could also have become seeded, though there is no overlying inflammation. If her positive blood culture proves to be MRSA or coag-negative Staph then a new infection must be considered and would then be more concerned about the Pro-Line catheter. There does not appear to be any residual inflammation over the right trapezius other than the necrotic eschar, which has been unroofed. The left pararenal process appears to be resolved on her recent CT scan, though this was without contrast. The hyponatremia is likely in part related to her hyperglycemia and has improved. Her thrombocytopenia is likely secondary to sepsis. Suggestion: 1. Repeat blood cultures 2 2. Echocardiogram, with consideration of a MONICA if negative 3. Would do an MRI of the pelvis with gadolinium 4. Consider further imaging, for example a nuclear study such as a bone scan or HMPAO scan, based on above 5. Follow-up recent blood cultures 6. Begin Vancomycin 1 g IV every 12 hours pending above 7. Continue Oxacillin pending above Consult Acknowledgment - Thank you for your consult request.
[2016-05-06 16:43] VITALS: BP 104/70
[2016-05-06 17:05] VITALS: BP 98/58
--- NOTE | 2016-05-06 17:16 | NUR ---
S/P NS BOLUS BP 98/58 INTER PRADEEP NOTIFED, NS 1L BOLUS #2 NOW INFUSING
[2016-05-06 18:30] VITALS: BP 94/44
--- NOTE | 2016-05-06 18:33 | NUR ---
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
--- NOTE | 2016-05-06 19:11 | NUR ---
BP 94/44 MANUALLY, O2 WAS 89% ON RA PLACE ON 2L AND INCREASED TO 93%, TEMP 99.3, HR 109 BOLUS #3 INFUSING AT 500ML/HR. PT DROUSY AND AROUSABLE HOWEVER TOOK STERNAL RUB TO AWAKEN. 2 SETS OF BLOOD CULTURES BEING DRAWN. ELIAS DRAINING DARK URINE ORDER FOR PT TO BE TRANSFERED TO ICU, ASSIGNED RM 111, REPORT WAS CALLED HOWEVER UNIT IS IN EMERGENCY RIGHT NOW, TOLD RN HOLLEY VELAZQUEZ TO HAVE ASSIGNED NURSE CALL THE FLOOR WHEN READY TO RECEIVE.
--- NOTE | 2016-05-06 21:36 | Event Note ---
Event Note Event Note: Patient was having low BP 90/70, discussed with Dr Clark, advised to give 1000cc bolus/hr and watch for BP. I also stopped propranolol as BP was low.There are a wound on the left shoulder and cetntral line is having a small oozing of serouse fluids. Updated to the Dr Clark and also advised to nurse to continue Dry dressigs.
--- NOTE | 2016-05-07 01:40 | NUR ---
PT TRANSFER FROM FLOOR VIA BED WITH NO ISSUES.DROWSY BUT AROUSABLE.ORIENTED PT TO SURROUNDINGS.C/O GEN DISCOMFORT AND PAIN MGT MAINTAINED.AVSS.SB 90'S.RECEIVED 1L IV BOLUS WITH NO ISSUES.LUNG SOUNDS DIMINISHED.ON 2L WITH SATS >95%.HOB ELEVATED.+PP.IVF AND ABX CONT VIA PICC LINE.LABS SENT AND RESULTS PENDING.JARRET PO WELL. ELIAS PATENT WITH GOOD UO.RIGHT SHOULDER DSG CDI.PLAN OF CARE REVIEWED.
[2016-05-07 01:41] LABS: MEAN CORPUSCULAR HGB 23.5 PG (27.0-31.0); MEAN CORPUSCULAR HGB CONC 32.3 G/DL (33.0-37.0); MEAN CORPUSCULAR VOLUME 72.7 FL (81.0-99.0); MEAN PLATELET VOLUME 11.4 FL (7.4-10.4); RBC DISTRIBUTION WIDTH 19.3 % (11.5-14.5); RED BLOOD CELL CT 3.91 /CUMM (4.20-5.40); WHITE BLOOD CELL COUNT 7.7 /CUMM (4.8-10.8)
[2016-05-07 01:46] LABS: HEMATOCRIT 28.4 % (37-47); PLATELET COUNT 40 /CUMM (130-400)
[2016-05-07 05:02] LABS: ABSOLUTE BASOPHIL COUNT 0 /CUMM (0.0-0.2); ABSOLUTE EOSINOPHIL COUNT 0.4 /CUMM (0.0-0.7); ABSOLUTE GRANULOCYTE CT 6.3 /CUMM (1.4-6.5); ABSOLUTE LYMPH COUNT 0.7 /CUMM (1.2-3.4); ABSOLUTE MONOCYTE COUNT 0.2 /CUMM (0.10-0.60); BASOPHIL % 0 % (0.0-2.0); GRANULOCYTE % 83.2 % (42.2-75.2); HEMATOCRIT 27.6 % (37-47); MEAN CORPUSCULAR HGB 23.6 PG (27.0-31.0); MEAN CORPUSCULAR HGB CONC 32.5 G/DL (33.0-37.0); MEAN CORPUSCULAR VOLUME 72.7 FL (81.0-99.0); RBC DISTRIBUTION WIDTH 19.7 % (11.5-14.5); WHITE BLOOD CELL COUNT 7.6 /CUMM (4.8-10.8)
[2016-05-07 05:45] LABS: PLATELET COUNT 36 /CUMM (130-400)
[2016-05-07 07:00] VITALS: BP 110/60
--- NOTE | 2016-05-07 08:22 | Cons- Wound Care ---
General Information and HPI Consulting Request Date of Consult: 05/07/16 Requested By: ERIBERTO MORATAYA M.D Reason for Consult: Right upper back ulcer present on admission History of Present Illness: DOHERTY 80-year-old with diabetes, kidney past medical history of osteomyelitis of the pelvis renal abscess C. difficile who is again admitted with pelvic pain and found to have staph bacteremia. She reports having had a abscess over her right upper back which was incised and drained Lan Trammell MD the past. She's had a small area of residual necrotic eschar. There's been no significant drainage periwound induration. Allergies/Medications Allergies: Coded Allergies: codeine (Intermediate, HIVES 05/05/16) nickel (Intermediate, RASH 05/05/16) adhesive tape (Mild, RASH 05/05/16) duloxetine (Intermediate, NAUSEA 05/05/16) hydrocodone (GI UPSET (ESOPHAGITIS) 05/05/16) ibuprofen (GI UPSET (ESOPHAGITIS) 05/05/16) Home Med List: Albuterol Sulfate (Proair Hfa) 90 MCG HFA.AER.AD 2 PUF INH Q4-6 PRN PRN SOB ( Reported) Diphenhydramine HCl (Benadryl) 25 MG CAPSULE 1 CAP PO Q6 PRN ITCHING ( Reported) Ergocalciferol (Vitamin D2) (Drisdol) 50,000 UNIT CAPSULE 1 CAP PO QW Supplement Please take one of these medications every week for the next eight weeks. After that, you will be required to take one every two weeks for mainainance of your vitamin D Levels. Hydrocortisone Acetate (Micort-Hc) 2.5 % CREAM.APPL 1 DEMETRA TOP TID ITCHING ( Reported) Hydroxyzine HCl 50 MG TABLET 1 TAB PO TID PRN itching Insulin Aspart (Novolog) 100 UNIT/ML VIAL 0 SC SEE ADMIN CRITERIA Diabetes Your insulin coverage was changed while in hospital. Sliding Scale Blood Sugar Less that 80mg/dl Initiate Hypoglycemia protocol 80-150 mg/dl 12 units 151-200 mg/dl 14 units 201-250 mg/dl 16 units 251-300 mg/dl 18 units 301-350 mg/dl 20 units 351-400 mg/dl 22 units More than 400 mg/dl 24 units call MD Please check your blood sugar at least three times a day. Inform your boat painter about this change. Insulin Detemir (Levemir) 100 UNIT/ML VIAL 50 UNITS SC BID DM (Reported) Ondansetron HCl (Zofran) 4 MG TABLET 1 TAB PO Q6-8P PRN nausea Oxacillin Sodium 2 GRAM VIAL.PORT 2,000 MG IV Q4 Sepsis Please dose 2000mg. Q4. IV. 100ml 0.9% NaCL Oxycodone HCl (Roxicodone) 15 MG TABLET 1 TAB PO TID PRN pain Pregabalin (Lyrica) 150 MG CAPSULE 1 CAP PO BID NEUROPATHY (Reported) Propranolol HCl 20 MG TABLET 1 TAB PO BID ANXIETY (Reported) Review of Systems Review of Systems: Patient has continued right hip and pelvic pain Past History Travel History Traveled to [place] past 21 day No Medical History Neurological: NONE EENT: hearing loss Cardiovascular: NONE Respiratory: asthma Gastrointestinal: necrotizing fasciitis of the perineum Hepatic: NONE Renal: left pararenal abscess Musculoskeletal: OSTEOMYELITIS OF PUBIS PUBIS FX Psychiatric: anxiety, chronic pain disorder, depression, opioid dependence, POLYSUBSTANCE ABUSE NARCOTIC DEPENDENCE SUICIDAL IDEATION Endocrine: INSULIN DEPENDENT DIABETES - noncompliant Blood Disorders: anemia Cancer(s): NONE 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 FH: cirrhosis Psychosocial History Where Do You Live? Home Who Do You Live With? with friend Primary Language: Polish Smoking Status: Current Everyday Smoker ETOH Use: denies use Illicit Drug Use: denies illicit drug use Living Will? no Power of Employee Relations Assistant/HCP? no Functional Ability ADLs Independent: dressing, eating, toileting, bathing. Ambulation: independent IADLs Independent: shopping, housework, finances, food prep, telephone, transportation , medication admin. Exam & Diagnostic Data Vital Signs and I&O Vital Signs Result Date Time Pulse Ox 95 05/07 347 O2 Delivery Nasal Cannula 05/07 347 O2 Flow Rate 2.0L 05/07 347 Temp 99.3 05/06 1846 Pulse 107 05/06 1846 B/P 94/44 05/06 1830 Resp 20 05/06 1643 Intake & Output 05/07 0000 05/06 1600 05/06 0800 Intake Total 1620 540 Output Total 580 0 Balance 1040 540 Intake, IV 1500 200 Intake, Oral 120 340 Output, Urine 580 0 Patient 221 lb Weight On exam of the right posterior upper back shows her to be a 5.5 x 3.5 cm full- thickness ulcer with an area of dry necrotic eschar. It is no undermining sinus tracking exposed bone periwound erythema or induration Assessment/Plan Impression/Plan: 40-year-old woman with diabetes multiple medical problems with recurrent staph rectum anemia was admitted with persistent right hip and pelvic pain and again found to be bacteremic. The right posterior chest wound does not appear to be infected. The eschar was easily removed was loosely adherent. Recommend wound care with daily cleansing avoidance of pressure and daily Aquacel Ag dressings Consult Acknowledgment - Thank you for your consult request.
--- NOTE | 2016-05-07 09:05 | NUR ---
ASSUMED CARE OF PATIENT. PATIENT ALERT AND ORIENTATED X3. VSS. C/O RIGHT ARM AND HIP PAIN 02/24. MEDICATED WITH OXICODONE 10MG PO AND DILAUDID 1MG IV FOR BREAKTHROUGH PAIN. PATIENT WEEPY. WOUND EVAL DONE BY DR RANDOLPH. PLANNED MRI TODAY AT 1130 A.M. PATIENT AWARE. WILL CONTINUE WITH CURRENT PLAN OF CARE.
--- NOTE | 2016-05-07 09:33 | PN- Housestaff ---
Assessment/Plan Assessment: Ms. Urias is 40-year-old female with a past medical history of osteomyelitis of pubis, necrotizing fasciitis of the perineum, hysterectomy, colostomy reversed, left renal abscess, C. difficile colitis,anxiety, depression, chronic pain disorder,chronic back pain,chronic anemia, poorly controlled IDDM 2, DKA, recent fall with minimal displaced pelvic fracture, right shoulder cellulitis s/ p incision and drainage on oxacillin to finish a course of 4 weeks (May 12) discharged 04/18/16, presenting with a chief complaint of worsening right pelvic and hip pain for 2 days. # GPC sepsis 2/2 bacteremia and celluitis Patient found to be septic on admission with fever, tachycardia and first set of blood cultures growing staph aureus. Patient was placed on vancomycin in addition to oxacillin which patient had already been on for cellulitis prior the this admission. Patient was persistently hypotensive in 90's systolically despite aggressive IVF resucitation, resulting in a septic shock and subsequent transfer to ICU on 05/07. Patient's SBP was evetually brought up above 100 without pharmacological interventions and she returned to on 05/08. * ID consulted, follow recs * Follow repeat blood cultures 2 - growing GPC * Follow TTE to rule out endocarditis * Follow MRI pelvis to look for possible other source of infection * Follow Doppler of the right upper extremity * Continue Oxacillin * Discontinue vancomycin * Cont to monitor for signs of infection, especially blood pressure # Hyponatremia: Patient presented with a sodium level of 114 (corrected Na 122), consistent with acute on chronic hyponatremia. This is most attributable to pseudohyponatremia in the setting of hyperglycemia, possibly with a component of SIADH/sepsis/poor intake. Patient is currently with no significantn neurological symptoms, checked urine osmolality serum osmolality. Patient received some IV fluids in ER. Saline lock IV, it appears more like SIADH been volume restrict, and correct glucose with subcutaneous insulin and basal insulin. (Avoid corrected sodium increase more than 8-10 mEq per 24-hour) #2 hyperglycemia: patient has been noncompliant and reportedly comes for hyperglycemia. Continue basal and sliding scale insulin. #3 chronic pain: Currently patient has is right hip pain, CT abdomen and pelvis shows old pubic rami fracture. Obtained x-ray of her right hip. #4 patient is febrile in ER, uncertain source of infection except her recent abscess which was drained and dressed and scapular region. Does not have any other skin infections after complete examination. Chest x-ray and chest examination is clear. CT abdomen and pelvis unremarkable. Continue her oxacillin. Consult ID #[id number] depression and anxiety continue her home medications. #6 DVT prophylaxis, pain pathway for pain control. Diet regular diet DVT prophylaxis heparin subcutaneous Full code
--- NOTE | 2016-05-07 10:32 | PN- Housestaff ---
Subjective Follow-up For: Bacteremia Right hip pain Generalized malaise Subjective: Patient seen and examined at bedside in ICU. Patient was reportedly transferred to critical unit yesterday evening because of persistent hypotension despite IVF resucitation. Per records patient received normal saline amounting to about 8L total yesterday. Since then patient's blood pressure has improved and been holding above 100 systolically this morning. Patient is subsequently being transferred back to service today. Patient currently complains of severe pain "all over the body," worst in the right hip and abdomen diffusely. Patient also continues to be febrile but nontachcardic. Denies any dizziness/lightheadedness, n/v/c/d. Review of Systems Constitutional: Reports: fever, malaise. Denies: chills, diaphoresis. Comments: Genitourinary: Denies: dysuria, frequency, hematuria. Skin: Denies: rash. Neurological/Psychological: Denies: confusion, numbness. Hematologic/Endocrine: Denies: bruising, bleeding. Objective Last 24 Hrs of Vital Signs/I&O Vital Signs Date Time Temp Pulse Resp B/P Pulse O2 O2 Flow FiO2 Ox Delivery Rate 05/07 0800 96 Nasal 2.0L Cannula 05/07 0700 99.8 100 20 110/60 95 Nasal 2.0L Cannula 05/07 0347 95 Nasal 2.0L Cannula 05/07 0109 95 Nasal 2.0L Cannula 05/06 2015 96 Nasal 2.0L Cannula 05/06 1846 99.3 107 05/06 1830 94/44 05/06 1705 98/58 05/06 1643 97.6 112 20 104/70 97 05/06 1458 100/50 05/06 1431 98.7 96 18 99/54 96 Intake & Output 05/07 1600 05/07 0800 05/07 0000 Intake Total 1640 1620 Output Total 440 580 Balance 1200 1040 Intake, IV 1200 1500 Intake, Oral 440 120 Output, Urine 440 580 Physical Exam General Appearance: Alert, Oriented X3, Cooperative, Moderate Distress Other Physical Findings: Skin right shoulder wound, oozing pus, mutiple scratch beckwith over all over her body HEENT Atraumatic, PERRLA, EOMI, Mucous Membr. moist/pink Neck Supple, No JVD Cardiovascular Regular Rate, Normal S1, Normal S2, No Murmurs Abdomen Normal Bowel Sounds, mild tenderness on the right side Neurological Normal Speech, Strength at 5/5 X4 Ext, Normal Tone Extremities No Clubbing, No Cyanosis, No Edema, Vascular Normal Pulses Current Medications: Current Medications Sig/Shahla Start time Last Medication Dose Route Stop Time Status Admin Acetaminophen 0 .STK-MED ONE 05/06 1532 DC PO Acetaminophen 1,000 MG Q6P PRN 05/06 0600 AC IV Acetaminophen 650 MG Q6P PRN 05/06 0015 AC 05/06 PO 1534 Albuterol Sulfate 2 PUF Q4-6 PRN PRN 05/06 0100 AC INH Heparin Sodium 0 .STK-MED ONE 05/06 1429 DC (Porcine) .ROUTE Heparin Sodium 5,000 UNIT Q8 05/06 0600 AC 05/07 (Porcine) SC 0502 Hydromorphone HCl 2 MG Q3P PRN 05/07 1045 AC 05/07 IV 1120 Hydromorphone HCl 1 MG Q4P PRN 05/06 1300 DC 05/07 IV 0828 Influenza Virus 0.5 ML ONCE ONE 05/06 1945 DC Vaccine IM 05/06 1946 Insulin Aspart 0 TIDAC 05/06 0800 AC 05/06 SC 1635 Insulin Detemir 50 UNITS BID 05/06 1000 AC 05/07 SC 1006 Lorazepam 1 MG ONE ONE 05/07 1130 DC 05/07 IV 05/07 1131 1124 Oxacillin Sodium 2,000 MG Q4 05/06 0200 AC 05/07 Sodium Chloride 100 ML IV 05/16 1300 1009 Oxycodone HCl 10 MG Q8P PRN 05/06 1130 AC 05/07 PO 0817 Pregabalin 150 MG BID 05/06 0046 AC 05/07 PO 1008 Propranolol HCl 20 MG BID 05/06 1000 DC 05/06 PO 1051 Sodium Chloride 1,000 ML BOLUS ONE 05/06 2130 DC 05/06 IV 05/06 2229 2141 Sodium Chloride 1,000 ML BOLUS ONE 05/06 1845 DC 05/06 IV 05/06 2044 1848 Sodium Chloride 1,000 ML BOLUS ONE 05/06 1700 DC 05/06 IV 05/06 1859 1709 Sodium Chloride 1,000 ML BOLUS ONE 05/06 1500 DC 05/06 IV 05/06 1559 1512 Sodium Chloride 1,000 ML .Q8H 05/06 1200 AC 05/07 IV 0834 Vancomycin HCl 1,000 MG 7:30 AM, & 4:30 PM 05/07 0730 DC 05/07 Sodium Chloride 250 ML IV 0817 Vancomycin HCl 1,000 MG ONCE ONE 05/06 1645 DC 05/06 Sodium Chloride 250 ML IV 05/06 1744 1818 Last 24 Hrs of Lab/Haris Results Last 24 Hrs of Labs/Mics: Laboratory Tests 05/07/16 0410: Lactic Acid 1.1 05/07/16 041: Anion Gap 5, Estimated GFR > 60, BUN/Creatinine Ratio 30.0 H, CBC w Diff NO MAN DIFF REQ, RBC 3.80 L, MCV 72.7 L, MCH 23.6 L, RDW 19.7 H, MPV 11.0 H, Gran % 83.2 H, Lymphocytes % 9.1 L, Monocytes % 2.7, Eosinophils % 5.0, Basophils % 0 L, Absolute Granulocytes 6.3, Absolute Lymphocytes 0.7 L, Absolute Monocytes 0.2, Absolute Eosinophils 0.4, Absolute Basophils 0, PUBS MCHC 32.5 L 05/07/16 0100: Lactic Acid 1.1, CBC w Diff MAN DIFF ORDERED, RBC 3.91 L, MCV 72.7 L, MCH 23.5 L, RDW 19.3 H, MPV 11.4 H, Segmented Neutrophils 78 H, Band Neutrophils 10 H, Lymphocytes 2 L, Monocytes 5, Eosinophils 5, Platelet Estimate DECREASED, Polychromasia 1+, Hypochromic-Microcytic 1+, Poikilocytosis 1+, Anisocytosis 1+, Microcytic Cells 1+, Ovalocytes 1+, Elliptocytes FEW, PUBS MCHC 32.3 L, Fld Total RBCs Counted 100 Microbiology 05/06 2231 UPPER RESP: Surveillance Culture - RECD 05/06 2231 GI: Surveillance Culture - RECD 05/06 1910 BLOOD: Blood Culture - RES GRAM POSITIVE COCCI 05/06 1900 BLOOD: Blood Culture - RES GRAM POSITIVE COCCI Assessment/Plan Assessment: Ms. Urias is 40-year-old female with a past medical history of osteomyelitis of pubis, necrotizing fasciitis of the perineum, hysterectomy, colostomy reversed, left renal abscess, C. difficile colitis,anxiety, depression, chronic pain disorder,chronic back pain,chronic anemia, poorly controlled IDDM 2, DKA, recent fall with minimal displaced pelvic fracture, right shoulder cellulitis s/ p incision and drainage on oxacillin to finish a course of 4 weeks (untill May 12) discharged 04/18/16, presenting with a chief complaint of worsening right pelvic and hip pain for 2 days. # GPC sepsis 2/2 bacteremia and celluitis Patient found to be septic on admission with fever, tachycardia and first set of blood cultures growing staph aureus. Patient was placed on vancomycin in addition to oxacillin which patient had already been on for cellulitis prior the this admission. Patient was persistently hypotensive in 90's systolically despite aggressive IVF resucitation, resulting in a septic shock and subsequent transfer to ICU on 05/07. Patient's SBP was evetually brought up above 100 without pharmacological interventions and she returned to on 05/08. * ID consulted, follow recs * Follow repeat blood cultures 2 - growing GPC * Follow TTE to rule out endocarditis * Follow MRI pelvis to look for possible other source of infection * Follow Doppler of the right upper extremity * Continue Oxacillin * Discontinue vancomycin * Cont to monitor for signs of infection, especially blood pressure # Hyponatremia Patient presented with a sodium level of 114 (corrected Na 122), consistent with acute on chronic hyponatremia. This is most attributable to pseudohyponatremia in the setting of hyperglycemia, possibly with a component of SIADH/sepsis/poor intake. Patient is currently has no significant neurological symptoms. * Follow urine osmolality * Check BEP daily, trend Na # Poor controlled diabetes * Novolog SSI with accuchecks * Continue Levemir 50U SQ BID # Chronic pain syndrome Patient carries a hx of chronic pain disorder. Patient does have a fracture in the right hip from a fall a month ago. Ortho saw the patient and recommended conservative management without any further interventions at that time. * Adequate pain control with Dilaudid 2mg Q3 PRN breaktrhoughs and Roxicodone 10mg PO TID # Diet regular diet # Moderate-Severe pain pathway # DVT prophylaxis heparin subcutaneous # Full code Problem List: 1. Sepsis 2. Cellulitis 3. Fracture of right inferior pubic ramus 4. Chronic pain syndrome 5. Hyponatremia 6. Bacteremia Pain Ratin Pain Location: Right hip Diffuse abdomen Pain Goal: Pain 4 or less Pain Plan: Dilaudid 2mg Q4 breaktrhough Roxicodone 10mg Q8 Tomorrow's Labs & Rationales: CBC - trend WBC to monitor infection and H/H to monitor for acute on chronic anemia BEP - monitor for electrolyte disturbance and renal fx in the setting of sepsis Dilaudid 2mg Q4 breaktrhough Roxicodone 10mg Q8 Tomorrow's Labs & Rationales: CBC - trend WBC to monitor infection and H/H to monitor for acute on chronic anemia BEP - monitor for electrolyte disturbance and renal fx in the setting of sepsis
--- NOTE | 2016-05-07 11:05 | PN- Infect Dx ---
Subjective Subjective: Afebrile. She complains of pain in both hands, with swelling of the right hand, resulting in inability to raise her arms. She also reports severe pain in the right hip, preventing her from raising her right leg. Objective Last 24 Hrs of Vital Signs/I&O Vital Signs Date Time Temp Pulse Resp B/P Pulse O2 O2 Flow FiO2 Ox Delivery Rate 05/07 0800 96 Nasal 2.0L Cannula 05/07 0700 99.8 100 20 110/60 95 Nasal 2.0L Cannula 05/07 0347 95 Nasal 2.0L Cannula 05/07 0109 95 Nasal 2.0L Cannula 05/06 2015 96 Nasal 2.0L Cannula 05/06 1846 99.3 107 05/06 1830 94/44 05/06 1705 98/58 05/06 1643 97.6 112 20 104/70 97 05/06 1458 100/50 05/06 1431 98.7 96 18 99/54 96 05/06 1058 98.9 112 18 120/52 96 Nasal 2.0L Cannula Intake & Output 05/07 1600 05/07 0800 05/07 0000 Intake Total 1640 1620 Output Total 440 580 Balance 1200 1040 Intake, IV 1200 1500 Intake, Oral 440 120 Output, Urine 440 580 Physical Exam Other Physical Findings: She is awake and alert in no acute distress, but very emotional Lungs are clear Heart regular rhythm with no murmur Chest Pro-Line catheter site in the left upper chest with no inflammation at the site Back right upper back wound clean, with no surrounding inflammation Extremities right hand swelling, tender to palpation, with no erythema; right forearm larger than the left forearm; right hip tender on minimal movement Neuro unable to evaluate fully secondary to pain Orta catheter is in place Results Last 24 Hours of Lab Results: Laboratory Tests 05/07 05/07 0410 0410 Chemistry Sodium (137 - 145 mmol/L) 125 L Potassium (3.5 - 5.1 mmol/L) 3.7 Chloride (98 - 107 mmol/L) 98 Carbon Dioxide (22 - 30 mmol/L) 22 Anion Gap (5 - 16) 5 BUN (7 - 17 mg/dL) 30 H Creatinine (0.5 - 1.0 mg/dL) 1.0 Estimated GFR (>60 ml/min) > 60 BUN/Creatinine Ratio (7 - 25 %) 30.0 H Lactic Acid (0.7 - 2.1 mmol/L) 1.1 Hematology CBC w Diff NO MAN DIFF REQ WBC (4.8 - 10.8 /CUMM) 7.6 RBC (4.20 - 5.40 /CUMM) 3.80 L Hgb (12.0 - 16.0 G/DL) 9.0 L Hct (37 - 47 %) 27.6 L MCV (81.0 - 99.0 FL) 72.7 L MCH (27.0 - 31.0 PG) 23.6 L RDW (11.5 - 14.5 %) 19.7 H Plt Count (130 - 400 /CUMM) 36 L MPV (7.4 - 10.4 FL) 11.0 H Gran % (42.2 - 75.2 %) 83.2 H Lymphocytes % (20.5 - 51.1 %) 9.1 L Monocytes % (1.7 - 9.3 %) 2.7 Eosinophils % (0 - 5 %) 5.0 Basophils % (0.0 - 2.0 %) 0 L Absolute Granulocytes (1.4 - 6.5 /CUMM) 6.3 Absolute Lymphocytes (1.2 - 3.4 /CUMM) 0.7 L Absolute Monocytes (0.10 - 0.60 /CUMM) 0.2 Absolute Eosinophils (0.0 - 0.7 /CUMM) 0.4 Absolute Basophils (0.0 - 0.2 /CUMM) 0 PUBS MCHC (33.0 - 37.0 G/DL) 32.5 L 05/07 05/06 05/06 0100 1320 1215 Chemistry Lactic Acid (0.7 - 2.1 mmol/L) 1.1 1.5 Hematology CBC w Diff MAN DIFF ORDERED WBC (4.8 - 10.8 /CUMM) 7.7 RBC (4.20 - 5.40 /CUMM) 3.91 L Hgb (12.0 - 16.0 G/DL) 9.2 L Hct (37 - 47 %) 28.4 L MCV (81.0 - 99.0 FL) 72.7 L MCH (27.0 - 31.0 PG) 23.5 L RDW (11.5 - 14.5 %) 19.3 H Plt Count (130 - 400 /CUMM) 40 L MPV (7.4 - 10.4 FL) 11.4 H Segmented Neutrophils (42.2 - 75.2 %) 78 H Band Neutrophils (0.0 - 5.0 %) 10 H Lymphocytes (20.5 - 51.1 %) 2 L Monocytes (1.7 - 9.3 %) 5 Eosinophils (0 - 5.0 %) 5 Platelet Estimate (ADEQUATE) DECREASED Polychromasia 1+ Hypochromic-Microcytic 1+ Poikilocytosis 1+ Anisocytosis 1+ Microcytic Cells 1+ Ovalocytes 1+ Elliptocytes FEW PUBS MCHC (33.0 - 37.0 G/DL) 32.3 L ESR Westergren (0 - 20 MM) 7 Other Body Source Fld Total RBCs Counted (%) 100 Last 24 Hours of Haris Results: Blood cultures 2 May 06 positive for Staph aureus sensitive to Oxacillin Repeat blood cultures 2 later on May 06 positive for gram-positive cocci in clusters Assessment/Plan Impression: Recurrent Methicillin sensitive Staph aureus sepsis despite treatment with Oxacillin now Day 23 for recent MSSA sepsis presumed secondary to the abscess on her right upper back, which appears to have resolved. She presumably has a focus of infection that she seeded on her recent bacteremia and she will require further workup to identify this focus. Given her multiple complaints this will be challenging, but would focus first on her right hip, which appears to be her primary complaint. The etiology of her right hand inflammation is unclear, with no report of any venipuncture, attempts at IV placement or trauma to this area. Other areas of concern would include the spine, though the recent CT of the abdomen and pelvis did not reveal any paraspinal process, and the Pro-Line catheter, which may require removal if her bacteremia persists. Finally endocarditis must be ruled out. Her thrombocytopenia is presumably secondary to her sepsis. Suggestion: 1. Repeat blood cultures 2 2. Echocardiogram, followed by [facility] if negative 3. Await MRI of the pelvis 4. Consider Doppler of the right upper extremity 5. Consider further imaging, for example a nuclear study such as a bone scan or HMPAO scan, based on above 6. Psychiatric evaluation 7. Discontinue Vancomycin 8. Continue Oxacillin
--- NOTE | 2016-05-07 11:06 | PN- Att Addend ---
Attending Addendum Attending Brief Note In the emergency room yesterday patient remained tachycardic and blood pressure dropped into the 90s. Following over 2 L fluid bolus she remained hypotensive and was transferred to the intensive care unit for further management. Fluid resuscitation continued to the ICU with improvement of her blood pressure overnight. This morning her blood pressure is in the 120s systolic. She remains mildly tachycardic. She has been afebrile overnight with MAXIMUM TEMPERATURE of 100.0 yesterday. She is currently growing gram-positive cocci in clusters in 4 out of 4 bottles. On examination while in the ICU patient was lying in bed crying stating that she remains in pain. She reports suboptimal pain control overnight with her current pain regimen. Vital Signs Date Time Temp Pulse Resp B/P Pulse O2 O2 Flow FiO2 Ox Delivery Rate 05/07 0800 96 Nasal 2.0L Cannula 05/07 0700 99.8 100 20 110/60 95 Nasal 2.0L Cannula 05/07 0347 95 Nasal 2.0L Cannula 05/07 0109 95 Nasal 2.0L Cannula 05/06 2015 96 Nasal 2.0L Cannula 05/06 1846 99.3 107 05/06 1830 94/44 05/06 1705 98/58 05/06 1643 97.6 112 20 104/70 97 05/06 1458 100/50 05/06 1431 98.7 96 18 99/54 96 Gen. appearance: Well-developed, not in any respiratory distress. HEENT: Anicteric, no pallor Heart: S1-S2 mildly tachycardic, no murmurs Lungs: Fair entry bilaterally with no added sounds Abdomen: Normal bowel sounds, soft right upper quadrant tenderness with no rebound or guarding. Extremities: No pedal edema. The necrotic eschar over the right trapezius ulcer has been removed. The ulcer base is clean. There is no foul-smelling or focal discharge. CT abdomen done yesterday. LIVER, GALLBLADDER, AND BILIARY TREE: The liver is enlarged, measuring approximately 23 cm in craniocaudal dimension. No focal hepatic lesion or biliary ductal dilatation is present. The gallbladder is unremarkable with no evidence of radiopaque gallstones, gallbladder wall thickening, or obvious pericholecystic inflammatory changes. Laboratory Tests 05/07/16 0410: Lactic Acid 1.1 05/07/16 0410: Anion Gap 5, Estimated GFR > 60, BUN/Creatinine Ratio 30.0 H, CBC w Diff NO MAN DIFF REQ, RBC 3.80 L, MCV 72.7 L, MCH 23.6 L, RDW 19.7 H, MPV 11.0 H, Gran % 83.2 H, Lymphocytes % 9.1 L, Monocytes % 2.7, Eosinophils % 5.0, Basophils % 0 L, Absolute Granulocytes 6.3, Absolute Lymphocytes 0.7 L, Absolute Monocytes 0.2, Absolute Eosinophils 0.4, Absolute Basophils 0, PUBS MCHC 32.5 L 05/07/16 0100: Lactic Acid 1.1, CBC w Diff MAN DIFF ORDERED, RBC 3.91 L, MCV 72.7 L, MCH 23.5 L, RDW 19.3 H, MPV 11.4 H, Segmented Neutrophils 78 H, Band Neutrophils 10 H, Lymphocytes 2 L, Monocytes 5, Eosinophils 5, Platelet Estimate DECREASED, Polychromasia 1+, Hypochromic-Microcytic 1+, Poikilocytosis 1+, Anisocytosis 1+, Microcytic Cells 1+, Ovalocytes 1+, Elliptocytes FEW, PUBS MCHC 32.3 L, Fld Total RBCs Counted 100 05/06/16 1320: ESR Westergren 7 05/06/16 1215: Lactic Acid 1.5 Microbiology 05/06 223 UPPER RESP: Surveillance Culture - RECD 05/06 223 GI: Surveillance Culture - RECD 05/06 1910 BLOOD: Blood Culture - RES GRAM POSITIVE COCCI 05/06 190 BLOOD: Blood Culture - RES GRAM POSITIVE COCCI 05/06 1115 URINE ROUT: Urine Culture - COLB Problems: 1. Sepsis with possible septic shock in view of her hypotension. 2. Staph aureus bacteremia; query etiology 3. Right trapezius ulcer 4. Chronic pain syndrome 5. Subacute pelvic Fracture. 6. Thrombocytopenia; likely secondary to sepsis Plan: -Continue antibiotic therapy with IV vancomycin and oxacillin. -Follow-up transthoracic echocardiogram to rule out underlying endocarditis -MRI of the pelvis has been ordered to evaluate for any other source causing seeding to the bloodstream. -No gross evidence of recurrent renal abscess on CT imaging. -Increase Dilaudid to 2 mg every 3 hours to further optimize pain control. -Maintain thrombocytopenia precautions. DVT prophylaxis with compression devices. -Patient may be downgraded to general medical floor. -Case discussed with nursing staff and medical team.
--- NOTE | 2016-05-07 14:18 | ULTRASOUND REPORT ---
EXAMINATION: US DUPLEX UPPER EXTREMITY VEINS, RIGHT CLINICAL INFORMATION: Right upper extremity pain and edema. COMPARISON: None. TECHNIQUE: Doppler spectral analysis and color mapping was performed of the right upper extremity. Compression and augmentation maneuvers were performed where feasible. FINDINGS: The right brachial, basilic, and cephalic veins from the antecubital region to the shoulder were visualized and compressible. The axillary and subclavian veins were visualized and compressible where feasible. The lower aspect of the jugular vein was visualized and compressible. The central portion of the brachiocephalic vein were examined. There is color saturation of the venous system of the upper extremity. IMPRESSION: No evidence for right upper extremity vein thrombosis.
[2016-05-07 16:45] VITALS: BP 112/62
--- NOTE | 2016-05-07 17:17 | MRI REPORT ---
EXAMINATION: MR PELVIS WITHOUT CONTRAST CLINICAL INFORMATION: 40-year-old female with history of sepsis and right hip pain. Evaluate for osteomyelitis. COMPARISON: CT of the abdomen pelvis from 05/14/2015, 03/06/2016, 04/16/2016 and 05/06/2016. TECHNIQUE: MR imaging of the pelvis was performed on a high-field 1.5 Joanna magnet without contrast using axial, coronal and sagittal T1-weighted, coronal STIR and axial STIR pulse sequences. FINDINGS: Multiple images are partially degraded by motion. At L4-L5, there is severe degenerative loss of disc space with endplate irregularity, T2 signal hyperintensity within the disc space, disc bulge and osteophyte formation. There is no surrounding reactive marrow edema at the vertebral endplates of this chronically degenerated disc. At L5-S1, there is mild disc bulge. There is soft tissue edema extending along the psoas muscles without focal paraspinal fluid collection. Small amount of T2 signal hyperintensity/fluid is present within both sacroiliac joints; these joints exhibit vacuum phenomenon on the CT exam of 05/06/2016. There is no periarticular marrow edema at either sacroiliac joint. At the chronically widened pubic symphysis, the comparison CT images demonstrate old, healed articular surface erosions. There is articular surface irregularity and T2 hyperintense, fluid like signal intensity within the joint space of the pubic symphysis -- possibly chronic. The pubic plate is suboptimally evaluated due to motion degradation of images. There appears to be a cleft/tear within the pubic plate attachment to the right pubic bone (image 16, series 3). A 1.3 x 2.2 x 1.3 cm focus of fluidlike signal intensity extends from the region of the pubic symphysis and overlies the right pubic bone (image 31, series 7). It is not possible to determine whether this is a bland fluid collection or infected collection. There is bone marrow edema of the right pubic rami, and the mildly displaced fracture of the right inferior pubic ramus is suboptimally visualized due to motion degradation of images. Also, the nondisplaced fracture involving the base of the right superior ramus is poorly visualized. There is surrounding soft tissue edema, predominantly involving the adjacent obturator internus and externus muscles and extending into the proximal thigh. There is a small right hip joint effusion; this appears new compared to 04/16/2016 but is nonspecific and could be reactive to trauma or altered biomechanical stress at the hip. In a patient with history of sepsis, septic arthritis would be difficult to exclude. There is no osseous resorption at the hip observed on the recent CT exam of 05/06/2016. Also, no osseous erosion or periostitis is observed at the right hip on this suboptimal MRI examination. The femoral head is well-positioned within the acetabulum and the femur has normal marrow signal intensity. There is soft tissue edema extending along right and left iliopsoas. Also, subcutaneous tissue edema is present within each thigh. Urinary bladder is decompressed by a Orta catheter. There is edema within the presacral space. IMPRESSION: 1. The known pubic rami fractures are suboptimally visualized on these motion degraded images. Bone marrow edema within the pubic rami extending to the right acetabulum is compatible with posttraumatic inflammatory change. Soft tissue edema surrounds the rami fractures without evidence of a focal, organized fluid collection in this region. 2. Small right hip joint effusion is nonspecific and may be reactive to recent trauma and/or altered biomechanical stress at the hip. However, in a patient with sepsis, early infectious arthritis would be difficult to exclude. However, there is no bone marrow edema in the femoral head to significantly raise suspicion for septic arthritis, and there is no osteomyelitis. 3. 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 Likely septic arthritis of the pubic symphysis in the past. On this MRI, fluid signal intensity is present within the pubic symphysis and overlying the adjacent right pubic bone -- possibly chronic. There is no gross inflammatory change within the surrounding soft tissue. No acute findings within the pubic symphysis on the recent CT exams.
--- NOTE | 2016-05-07 18:38 | NUR ---
16:45- PT ARRIVED TO FLOOR VIA STRETCHER. DRESSING TO R SHOULDER C,D,I. DL PROLINE TO LCW. VSS. ELEVATED HR [address] ROSARIO. 18:00- DR. ROSARIO NOTIFIED PT HAS BILATERAL CRACKLES TO LUNG BASES. EDEMA TO R HAND AND TRACE EDEMA TO BLE. PT HAS IVF AT 125 ML/HR. PT REC'D 8L IVF 05/06 FOR HYPOTENSION. NO SOB AT THIS TIME. PER DR. ROSARIO, IVF TO BE DISCONTINUED.
[2016-05-07 22:54] VITALS: BP 112/60
--- NOTE | 2016-05-08 04:19 | NUR ---
NURSING NOTE: PT LYING IN BED SHOUTING "OW,OW,OW" "SOMEONE HELP ME, PLEASE SOMEONE HELP ME". RN PROVIDED EMOTIONAL SUPPORT TO THE PT AND ADMINISTERED 2MG IV DIALUDID PER PRN MED ORDER FOR A PAIN OF 10/10 TO "WHOLE BODY". MD FLOR ZIMMERMAN PAGED PT IS STATING SHE HAS ITCHING OVER HER ENTIRE BACK. PER THIS COIL ASSEMBLER THERE IS NO VISUAL RASH ON BACK. SLIGHT RASH TO BILAT FEET THAT PT IS STATING IS NEW ONSET. WILL MONITOR PT & AWAIT CALL BACK FROM .
[2016-05-08 06:30] VITALS: BP 110/60
--- NOTE | 2016-05-08 06:33 | PN- Housestaff ---
MARLENE FARFAN,ROXANNE 05/08/16 0632: Subjective Follow-up For: Bacteremia Right hip pain Subjective: Patient seen and examined at bedside. Patient continues to report pain in the lower abdomen and in right pelvis. She would like higher dose of narcotics. When told about removing Yao, patient breaks down and cries, stating that she cannot get up and move. Review of Systems Constitutional: Reports: malaise, weakness. Denies: chills, diaphoresis, fever. Comments: Genitourinary: Denies: dysuria, frequency, hematuria. Skin: Denies: rash. Neurological/Psychological: Denies: confusion, numbness. Hematologic/Endocrine: Denies: bruising, bleeding. Objective Last 24 Hrs of Vital Signs/I&O Vital Signs Date Time Temp Pulse Resp B/P Pulse O2 O2 Flow FiO2 Ox Delivery Rate 05/08 1543 99.3 113 22 110/70 93 05/08 0800 Nasal 2.0L Cannula 05/08 0630 98.9 106 20 110/60 95 Nasal Cannula 05/08 0000 94 Nasal 2.0L Cannula 05/07 2254 99.9 108 20 112/60 94 Nasal Cannula Intake & Output 05/08 1600 05/08 0800 05/08 0000 Intake Total 1550 800 800 Output Total 4787 830 1437 Balance 250 250 -300 Intake, IV 350 300 150 Intake, Oral 1200 500 650 Number 0 Bowel Movements Output, Urine 9853 714 0318 Physical Exam General Appearance: Alert, Oriented X3, Cooperative, Mild Distress Other Physical Findings: Skin right shoulder wound, oozing pus, mutiple scratch beckwith over all over her body HEENT Atraumatic, PERRLA, EOMI, Mucous Membr. moist/pink Neck Supple, No JVD Cardiovascular Regular Rate, Normal S1, Normal S2, No Murmurs Abdomen Normal Bowel Sounds, mild tenderness on the right side Neurological Normal Speech, Strength at 5/5 X4 Ext, Normal Tone Extremities No Clubbing, No Cyanosis, No Edema, Vascular Normal Pulses Current Medications: Current Medications Sig/Shahla Start time Last Medication Dose Route Stop Time Status Admin Acetaminophen 1,000 MG Q6P PRN 05/06 0600 AC IV Acetaminophen 650 MG Q6P PRN 05/06 0015 AC 05/06 PO 1534 Albuterol Sulfate 2 PUF Q4-6 PRN PRN 05/06 0100 AC INH Diphenhydramine HCl 25 MG Q8P PRN 05/08 0830 AC PO Diphenhydramine HCl 25 MG ONCE ONE 05/08 0445 DC 05/08 IV 05/08 0446 0454 Heparin Sodium 5,000 UNIT Q8 05/06 0600 AC 05/08 (Porcine) SC 1403 Hydromorphone HCl 2 MG Q3P PRN 05/07 1045 AC 05/08 IV 1406 Insulin Aspart 0 TIDAC 05/06 0800 AC 05/08 SC 1817 Insulin Detemir 50 UNITS BID 05/06 1000 AC 05/08 SC 0942 Oxacillin Sodium 2,000 MG Q4 05/06 0200 AC 05/08 Sodium Chloride 100 ML IV 05/16 1300 1817 Oxycodone HCl 10 MG Q8P PRN 05/06 1130 AC 05/07 PO 0817 Pregabalin 150 MG BID 05/06 0046 AC 05/08 PO 0942 Last 24 Hrs of Lab/Haris Results Last 24 Hrs of Labs/Mics: Laboratory Tests 05/08/16 0505: Anion Gap 9, Estimated GFR > 60, BUN/Creatinine Ratio 26.3 H, CBC w Diff NO MAN DIFF REQ, RBC 3.69 L, MCV 73.7 L, MCH 24.0 L, RDW 20.4 H, MPV 12.2 H, Gran % 78.3 H, Lymphocytes % 13.9 L, Monocytes % 3.3, Eosinophils % 4.3, Basophils % 0.2, Absolute Granulocytes 5.7, Absolute Lymphocytes 1.0 L, Absolute Monocytes 0.2, Absolute Eosinophils 0.3, Absolute Basophils 0, PUBS MCHC 32.5 L Microbiology 05/08 1035 BLOOD: Blood Culture - RECD 05/08 1000 BLOOD: Blood Culture - RECD 05/08 0926 BLOOD: Blood Culture - CAN Cancelled: Cancelled via OE: Duplicate Order Assessment/Plan Assessment: Ms. Urias is 40-year-old female with a past medical history of osteomyelitis of pubis, necrotizing fasciitis of the perineum, hysterectomy, colostomy reversed, left renal abscess, C. difficile colitis,anxiety, depression, chronic pain disorder,chronic back pain,chronic anemia, poorly controlled IDDM 2, DKA, recent fall with minimal displaced pelvic fracture, right shoulder cellulitis s/ p incision and drainage on oxacillin to finish a course of 4 weeks (untill May 12) discharged 04/18/16, presenting with a chief complaint of worsening right pelvic and hip pain for 2 days. # GPC sepsis 2/2 bacteremia and celluitis Patient found to be septic on admission with fever, tachycardia and first set of blood cultures growing staph aureus. Patient was placed on vancomycin in addition to oxacillin on which patient had already been for cellulitis prior the this admission. Patient went into a septic shock which resolved with aggressive IVF resucsitation. Blood cultures are growing staph aureus. At this point, there is still need to search the source of bacteremia besides the cellulitis. TTE was negative fbut MONICA is still warranted to rule out endocarditis. MRI pelvis (05/07) - Bone marrow edema within the pubic rami extending to the right acetabulum compatible with posttraumatic inflammatory change. Soft tissue edema surrounds the rami fractures without evidence of a focal, organized fluid collection in this region. Small right hip joint effusion nonspecific but possibly indicative of early infectious arthritis. * ID consulted, follow recs * Continue Oxacillin * Cont to monitor for signs of infection, especially blood pressure * Follow repeat blood cultures 2 * Follow MONICA to rule out endocarditis (Dr. Moseley consulted) * IR aspiration of joint effusion was pursued but refused by the patient * WBC scan tomorrow * Remove yao and substitute with straight cath when patient agrees. # Hyponatremia Patient presented with a sodium level of 114 (corrected Na 122), consistent with acute on chronic hyponatremia. This is most attributable to pseudohyponatremia in the setting of hyperglycemia, possibly with a component of SIADH/sepsis/poor intake. Patient is currently has no significant neurological symptoms. * Follow urine osmolality * Check BEP daily, trend Na # Poor controlled diabetes * Novolog SSI with accuchecks * Continue Levemir 50U SQ BID # Chronic pain syndrome Patient carries a hx of chronic pain disorder. Patient does have a fracture in the right hip from a fall a month ago. Ortho saw the patient and recommended conservative management without any further interventions at that time. * Adequate pain control with Dilaudid 2mg Q3 PRN breaktrhoughs and Roxicodone 10mg PO TID # Mood disorders * Psych consulted, appreciate recs * Clonidine 0.1 mg PO every 8 hours as needed, if opiate withdrawal symptoms. Hold Clonidine for blood pressure less than 90 mmHg systolic, less than 60 mmHg diastolic or pulse less than 55 BPM. * Baclofen 10 mg PO every 6 hours, as needed, for muscle cramps. * Dicyclomine (Bentyl) 20 mg PO every 6 hours, as needed, for GI cramps. * Hydroxyzine (Atarax or Vistaril) 50 mg PO every 6 hours, as needed, for anxiety. # Diet regular diet # Moderate-Severe pain pathway # DVT prophylaxis heparin subcutaneous # Full code Problem List: 1. Abdominal pain in 2. Constipation 3. Diabetes mellitus 4. HYPEREMISIS 5. LOWER GI BLEEDING 6. intractable vomitting 7. Abdominal pain 8. Hypoglycemia 9. 10. Hyperemesis gravidarum 11. Abdominal pain complicating 12. Anxiety 13. Vomiting and diarrhea 14. Hyperglycemia 15. Hypoglycemia associated with diabetes 16. Drug abuse 17. Urinary tract infection 18. Bronchitis 19. Rib pain 20. Asthma exacerbation 21. Skin abscess 22. Cellulitis 23. Cellulitis 24. Diabetes mellitus 25. Asthma 26. DVT prophylaxis 27. Full code status 28. Pain management 29. Abscess 30. DKA (diabetic ketoacidoses) 31. Renal failure 32. Sepsis 33. Cellulitis and abscess 34. Hyponatremia 35. Anay-rectal abscess 36. Perineal abscess, superficial 37. 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 Depressive disorder, not elsewhere classified 40. Dehydration 41. Ketosis 42. Intractable abdominal pain 43. Opioid dependence 44. Pain, abdominal, nonspecific 45. Vomiting alone 46. Intractable nausea and vomiting 47. Narcotic withdrawal 48. Narcotic dependence 49. Colostomy care 50. Abdominal pain 51. Perineal abscess 52. Leukocytosis 53. Abdominal pain 54. Back pain 55. Muscle spasm 56. Chronic osteomyelitis 57. Necrotizing fasciitis 58. Hypokalemia 59. Anemia 60. Vitamin D deficiency 61. Chronic pain 62. Depression (emotion) 63. Acute hypoxemic respiratory failure 64. Aspiration pneumonitis 65. Overdose 66. Overdose 67. PCP abuse 68. Chronic abdominal pain 69. Chronic back pain 70. Hyperglycemia due to type 2 diabetes mellitus 71. Abdominal pain 72. Metabolic acidosis 73. Osteomyelitis 74. Morbid obesity 75. Asthma 76. DVT prophylaxis 77. Full code status 78. Depression 79. Altered mental status 80. DKA (diabetic ketoacidoses) 81. Hematemesis 82. Acute blood loss anemia 83. Hypotension 84. Anemia 85. Guaiac positive stools 86. Parastomal hernia 87. Polysubstance abuse 88. Abnormal LFTs 89. Colostomy hernia 90. Coffee ground emesis 91. Pneumonia 92. Exacerbation of chronic back pain 93. Abdominal pain 94. Elevated transaminase level 95. Uncontrolled diabetes mellitus 96. Postoperative pain 97. Post-op pain 98. Abdominal pain 99. Vomiting 100. Abdominal wall abscess 101. Abdominal pain 102. Nausea and vomiting 103. Hyperglycemia without ketosis 104. Nausea & vomiting 105. Hyperglycemia 106. Urinary tract infection 107. Abscess 108. Perinephric abscess 109. Nephrostomy complication 110. Abdominal pain 111. Diarrhea 112. Flank pain 113. Hematuria 114. Hyperkalemia 115. Hypernatremia 116. Acute kidney injury 117. Bacteremia 118. Intractable vomiting 119. Abdominal pain 120. C. difficile colitis 121. Flank pain, chronic 122. Chest pain 123. Chronic vomiting 124. Contact dermatitis 125. Contact dermatitis 126. Hyponatremia 127. Chronic pain syndrome 128. C. difficile colitis 129. Uncontrolled diabetes mellitus with ketoacidosis 130. Opiate withdrawal 131. Polysubstance abuse 132. Anemia 133. Head injury 134. Knee contusion 135. Hip strain 136. Fall 137. Fracture of right inferior pubic ramus 138. Cellulitis 139. Abscess or cellulitis of back 140. Sepsis 141. Pubic ramus fracture 142. Chronic pruritus 143. Wound check, abscess Pain Ratin Pain Location: Right hip, lower abdomen Pain Goal: Pain 4 or less Pain Plan: Moderate pain pathway Tomorrow's Labs & Rationales: CBC - trend WBC to monitor infection and H/H to monitor for acute on chronic anemia BEP - monitor for electrolyte disturbance and renal fx in the setting of sepsis [facility]E [facility] 1811: Attending MD Review Statement Attending Statement Attending MD Statement: examined this patient, discuss w/resident/PA/INDUCTION FURNACE OPERATOR, agreed w/resident/PA/INDUCTION FURNACE OPERATOR, reviewed EMR data (avail), discussed with nursing, discussed with case mgmt, amended to note Attending Assessment/Plan: Patient seen and examined. Lying in bed and not in acute distress. She continues complain of pelvic pain. Reports adequate control with her current regimen. She was upset this morning when nursing staff could not administer her medications during the shift change. She Complains of generalized pruritus and is requesting for Benadryl. She has been hemodynamically stable since transferring out of the ICU yesterday. She has been afebrile. MRI of the hip done yesterday shows small right joint effusion. Case was discussed with ID service. Recommendations from the ID service is to obtain IR guided drainage of the hip joint to rule out septic joint. Patient reports that no abdominal pain is worse than baseline has been requiring IV Dilaudid essentially around-the- clock for pain relief. On examination the upper back wound has a clean base with no surrounding erythema and no drainage. Abdomen is soft with diffuse lower abdominal tenderness and with normal bowel sounds. Recommendations; -Continue current antibiotic course for her bacteremia. Repeat blood cultures. -Infectious sources likely from her back wound however joint aspiration and MONICA will be attempted per the ID recommendations to rule out other infectious etiology. -Continue current pain regimen. -Discontinuation of Yao catheter was recommended. Patient however became very tearful and wants the Yao catheter to remain. Psychiatric consultation was placed on account of her labile emotions.
--- NOTE | 2016-05-08 08:24 | NUR ---
NURSING NOTE: PT NOTED TO HAVE BREAK DOWN TO COCCYX/BUTTOCKS. AREA IS PURPLE/NON BLANCHABLE. SIZEWISE ORDERED. SKIN MAN, SKIN INTEGRITY PROTOCOL, AND T&P INTERVENTIONS ENTERED. PT EDUCATED ON SKIN CARE BUT IS REFUSING TO BE POSITIONED ON SIDE DUE TO PAIN. CONSULT PLACED WITH BREANA.
[2016-05-08 08:27] LABS: ABSOLUTE BASOPHIL COUNT 0 /CUMM (0.0-0.2); ABSOLUTE EOSINOPHIL COUNT 0.3 /CUMM (0.0-0.7); ABSOLUTE GRANULOCYTE CT 5.7 /CUMM (1.4-6.5); ABSOLUTE MONOCYTE COUNT 0.2 /CUMM (0.10-0.60); BASOPHIL % 0.2 % (0.0-2.0); EOSINOPHIL % 4.3 % (0-5); GRANULOCYTE % 78.3 % (42.2-75.2); HEMATOCRIT 27.2 % (37-47); MEAN CORPUSCULAR HGB CONC 32.5 G/DL (33.0-37.0); MEAN CORPUSCULAR VOLUME 73.7 FL (81.0-99.0); MEAN PLATELET VOLUME 12.2 FL (7.4-10.4); PLATELET COUNT 53 /CUMM (130-400); RBC DISTRIBUTION WIDTH 20.4 % (11.5-14.5); RED BLOOD CELL CT 3.69 /CUMM (4.20-5.40); WHITE BLOOD CELL COUNT 7.2 /CUMM (4.8-10.8)
--- NOTE | 2016-05-08 10:01 | ECHOCARDIOGRAM REPORT ---
SIS MARTINI Age: 40 : 1975 Gender: F Exam Date: 05/07/2016 18:58 Exam Location: [facility] Ht (in): 66 Wt (lb): 221 BSA: 2.20 BP: 94 / 44 Ordering Physician: MICHEL ROSARIO MD Referring Physician: MICHEL ROSARIO MD Technologist: Nisa Epps [facility] Room Number: 237 Indications: INFECTIVE ENDOCARDITIS Rhythm: Sinus Technical Quality: Fair FINDINGS Left Ventricle Normal size left ventricle. Mild concentric left ventricular hypertrophy. Normal left ventricular ejection fraction visually estimated at >65 %. No obvious regional wall motion abnormalities. Normal left ventricular diastolic filling pattern for age. Right Ventricle The right ventricle is normal in size and function. Right Atrium The right atrium is normal in size. Left Atrium The left atrium is normal in size. The interatrial septum is intact. Mitral Valve The mitral valve is normal in structure and function. There is no mitral regurgitation. Aortic Valve Structurally normal aortic valve without significant sclerosis or stenosis. There is no aortic regurgitation. Tricuspid Valve The tricuspid valve is normal in structure and function. There is mild tricuspid regurgitation. Pulmonary artery systolic pressure is normal. Pulmonic Valve Structurally normal pulmonic valve. There is no pulmonic regurgitation. Pericardium Normal pericardium without effusion. No pleural effusion. Great Vessels Normal aortic root dimension. The aortic arch and great vessels are well seen and are normal. CONCLUSIONS Mild concentric left ventricular hypertrophy. Normal left ventricular ejection fraction visually estimated at >65 No significant valve abnormalities. Physiologic valvular regurgitation. No evidence of valvular vegetations on this study, MONICA is more sensitive if cliiniclally indicated. Mehrdad Moseley M.D. (Electronically Signed) Final Date: 08 May 2016 10:00 MEASUREMENTS (Male / Female) Normal Values 2D ECHO LV Diastolic Diameter PLAX 4.6 cm 4.2 - 5.9 / 3.9 - 5.3 cm LV Systolic Diameter PLAX 2.6 cm 2.1 - 4.0 cm LV Fractional Shortening PLAX 43.5 % 25 - 46 % LV Ejection Fraction 2D Teich 74.7 % IVS Diastolic Thickness 1.2 cm LVPW Diastolic Thickness 1.2 cm LV Relative Wall Thickness 0.5 RV Internal Dim ED PLAX 2.2 cm 1.9 - 3.8 cm LVOT Diameter 2.1 cm Aortic Root Diameter 2.6 cm LA Systolic Diameter LX 4.1 cm 3.0 - 4.0 / 2.7 - 3.8 cm LA Volume 17.0 cm 18 - 58 / 22 - 52 cm Ascending Aorta Diameter 2.6 cm DOPPLER AV Peak Velocity 166.0 cm/s AV Peak Gradient 11.0 mmHg AV Mean Velocity 118.0 cm/s AV Mean Gradient 7.0 mmHg AV Velocity Time Integral 24.5 cm LVOT Peak Velocity 117.0 cm/s LVOT Peak Gradient 5.5 mmHg LVOT Mean Velocity 81.6 cm/s LVOT Mean Gradient 3.0 mmHg LVOT Velocity Time Integral 18.3 cm LVOT Stroke Volume 63.4 cm AV Area Cont Eq vti 2.6 cm AV Area Cont Eq pk 2.4 cm MV Peak Velocity 138.0 cm/s MV Peak Gradient 7.6 mmHg MV Mean Velocity 80.0 cm/s MV Mean Gradient 3.0 mmHg Mitral E Point Velocity 101.0 cm/s Mitral A Point Velocity 82.9 cm/s Mitral E to A Ratio 1.2 MV PHT Velocity 146.0 cm/s MV Deceleration [place] 874.0 cm/s MV Pressure Half Time 50.1 ms MV Area PHT 4.4 cm MV Deceleration Time 164.0 ms TR Peak Velocity 258.0 cm/s TR Peak Gradient 26.6 mmHg Right Atrial Pressure 5.0 mmHg Pulmonary Artery Systolic Pressu 31.6 mmHg Right Ventricular Systolic Press 31.6 mmHg PV Peak Velocity 123.0 cm/s PV Peak Gradient 6.1 mmHg PV Mean Velocity 83.0 cm/s PV Mean Gradient 3.0 mmHg PV Velocity Time Integral 22.7 cm LV E' Lateral Velocity 12.7 cm/s Mitral E to LV E' Lateral Ratio 8.0 LV E' Septal Velocity 8.8 cm/s Mitral E to LV E' Septal Ratio 11.5
--- NOTE | 2016-05-08 10:29 | PN- Infect Dx ---
Subjective Subjective: Afebrile. She feels somewhat improved though continues to complain of right hip pain, preventing her from moving and ambulating. She also complains of bilateral upper extremity pain, right-sided lower back pain, abdominal pain and shortness of breath with wheezing. Objective Last 24 Hrs of Vital Signs/I&O Vital Signs Date Time Temp Pulse Resp B/P Pulse O2 O2 Flow FiO2 Ox Delivery Rate 05/08 0630 98.9 106 20 110/60 95 Nasal Cannula 05/08 0000 94 Nasal 2.0L Cannula 05/07 2254 99.9 108 20 112/60 94 Nasal Cannula 05/07 1700 98 Nasal 2.0L Cannula 05/07 1645 99.0 118 20 112/62 98 Nasal 2.0L Cannula 05/07 1400 97 Nasal 2.0L Cannula Intake & Output 05/08 1600 05/08 0800 05/08 0000 Intake Total 800 800 Output Total 550 1100 Balance 250 -300 Intake, IV 300 150 Intake, Oral 500 650 Number 0 Bowel Movements Output, Urine 550 1100 Physical Exam Other Physical Findings: She appears comfortable in no acute distress Skin maculopapular rash over her lower extremities Chest Pro-Line catheter in the left upper chest with no inflammation Lungs mild expiratory wheezing bilaterally Heart regular rhythm with no murmur Abdomen is soft, tender on minimal palpation, with no guarding or rebound, positive bowel sounds Back right upper back lesion clean, with no surrounding inflammation Extremities pain on minimal movement or palpation of the right hip; 1+ edema both lower extremities Neuro unable to fully evaluate secondary to pain Orta catheter remains in place Results Last 24 Hours of Lab Results: Laboratory Tests 05/08 05/07 0505 1945 Chemistry Sodium (137 - 145 mmol/L) 131 L 126 L Potassium (3.5 - 5.1 mmol/L) 3.4 L 3.5 Chloride (98 - 107 mmol/L) 101 99 Carbon Dioxide (22 - 30 mmol/L) 21 L 21 L Anion Gap (5 - 16) 9 6 BUN (7 - 17 mg/dL) 21 H 22 H Creatinine (0.5 - 1.0 mg/dL) 0.8 0.9 Estimated GFR (>60 ml/min) > 60 > 60 BUN/Creatinine Ratio (7 - 25 %) 26.3 H 24.4 Hematology CBC w Diff NO MAN DIFF REQ WBC (4.8 - 10.8 /CUMM) 7.2 RBC (4.20 - 5.40 /CUMM) 3.69 L Hgb (12.0 - 16.0 G/DL) 8.8 L Hct (37 - 47 %) 27.2 L MCV (81.0 - 99.0 FL) 73.7 L MCH (27.0 - 31.0 PG) 24.0 L RDW (11.5 - 14.5 %) 20.4 H Plt Count (130 - 400 /CUMM) 53 L MPV (7.4 - 10.4 FL) 12.2 H Gran % (42.2 - 75.2 %) 78.3 H Lymphocytes % (20.5 - 51.1 %) 13.9 L Monocytes % (1.7 - 9.3 %) 3.3 Eosinophils % (0 - 5 %) 4.3 Basophils % (0.0 - 2.0 %) 0.2 Absolute Granulocytes (1.4 - 6.5 /CUMM) 5.7 Absolute Lymphocytes (1.2 - 3.4 /CUMM) 1.0 L Absolute Monocytes (0.10 - 0.60 /CUMM) 0.2 Absolute Eosinophils (0.0 - 0.7 /CUMM) 0.3 Absolute Basophils (0.0 - 0.2 /CUMM) 0 PUBS MCHC (33.0 - 37.0 G/DL) 32.5 L Last 24 Hours of Haris Results: Blood cultures May 06 positive for MSSA Recent Imaging Studies: MRI of the pelvis May 07 bone marrow edema within the pubic rami extending to the right acetabulum compatible with posttraumatic inflammatory change; soft tissue edema surrounding the rami fractures with no evidence of any focal, organized fluid collection; small right hip joint effusion; old articular erosive deformity/osteolysis of the chronically widened pubic symphysis; no surrounding reactive marrow edema at the vertebral endplates of the chronically degenerated L4-L5 disc with no focal paraspinal fluid collections Doppler of the right upper extremity May 07 negative Echocardiogram May 07 no valvular vegetations Assessment/Plan Impression: Recurrent Methicillin sensitive Staph aureus sepsis despite treatment with Oxacillin now Day 24 for recent MSSA sepsis presumed secondary to the abscess on her right upper back, which has resolved. She presumably has a focus of infection that she seeded on her recent bacteremia and she will require further workup to identify this focus. Areas of concern include the right hip, status post a recent fracture, with a small effusion noted on the MRI, the heart valves , including an abscess, with MONICA not performed on her recent admission, though her transthoracic echo is negative, the Pro-Line catheter, placed on her recent admission, though there is no inflammation at the site and it was placed after blood cultures were negative, and the spine, though the MRI did not reveal any paraspinal process. She appears fluid overloaded, with wheezing likely related to this. Suggestion: 1. Repeat blood cultures 2 2. Would pursue aspiration of the right hip (discussed with IR) 3. Would pursue a MONICA 4. Consider white blood cell scan if above negative 5. Would consider need for diuresis given I's and O's 6. Would remove Orta catheter once I's and O's are stable 7. Continue Oxacillin
--- NOTE | 2016-05-08 13:01 | Cons- Cardiology ---
General Information and HPI Consulting Request Date of Consult: 05/08/16 Requested By: ERIBERTO MORATAYA M.D Reason for Consult: Question need for transesophageal echocardiogram Source of Information: patient, old records Exam Limitations: poor historian History of Present Illness: Patient is a 40-year-old female with type I diabetes and multiple other medical problems, but no known heart disease. She presents with recurrent staph aureus sepsis thought to be from a skin abscess. This is despite being on long-term antibiotics. She had an echocardiogram done yesterday which was technically a suboptimal study but did not show any evidence of infective endocarditis. Infectious disease consult has suggested MONICA for completeness. The patient gives no history of heart disease. She does have shortness of breath on exertion. She does not describe chest pain or edema. Her EKGs have been unremarkable. She's had a few troponins over the years in the computer and none have shown significant elevations. Allergies/Medications Allergies: Coded Allergies: codeine (Intermediate, HIVES 05/05/16) nickel (Intermediate, RASH 05/05/16) adhesive tape (Mild, RASH 05/05/16) duloxetine (Intermediate, NAUSEA 05/05/16) hydrocodone (GI UPSET (ESOPHAGITIS) 05/05/16) ibuprofen (GI UPSET (ESOPHAGITIS) 05/05/16) Home Med List: Albuterol Sulfate (Proair Hfa) 90 MCG HFA.AER.AD 2 PUF INH Q4-6 PRN PRN SOB ( Reported) Diphenhydramine HCl (Benadryl) 25 MG CAPSULE 1 CAP PO Q6 PRN ITCHING ( Reported) Ergocalciferol (Vitamin D2) (Drisdol) 50,000 UNIT CAPSULE 1 CAP PO QW Supplement Please take one of these medications every week for the next eight weeks. After that, you will be required to take one every two weeks for mainainance of your vitamin D Levels. Hydrocortisone Acetate (Micort-Hc) 2.5 % CREAM.APPL 1 DEMETRA TOP TID ITCHING ( Reported) Hydroxyzine HCl 50 MG TABLET 1 TAB PO TID PRN itching Insulin Aspart (Novolog) 100 UNIT/ML VIAL 0 SC SEE ADMIN CRITERIA Diabetes Your insulin coverage was changed while in hospital. Sliding Scale Blood Sugar Less that 80mg/dl Initiate Hypoglycemia protocol 80-150 mg/dl 12 units 151-200 mg/dl 14 units 201-250 mg/dl 16 units 251-300 mg/dl 18 units 301-350 mg/dl 20 units 351-400 mg/dl 22 units More than 400 mg/dl 24 units call MD Please check your blood sugar at least three times a day. Inform your it systems engineer about this change. Insulin Detemir (Levemir) 100 UNIT/ML VIAL 50 UNITS SC BID DM (Reported) Ondansetron HCl (Zofran) 4 MG TABLET 1 TAB PO Q6-8P PRN nausea Oxacillin Sodium 2 GRAM VIAL.PORT 2,000 MG IV Q4 Sepsis Please dose 2000mg. Q4. IV. 100ml 0.9% NaCL Oxycodone HCl (Roxicodone) 15 MG TABLET 1 TAB PO TID PRN pain Pregabalin (Lyrica) 150 MG CAPSULE 1 CAP PO BID NEUROPATHY (Reported) Propranolol HCl 20 MG TABLET 1 TAB PO BID ANXIETY (Reported) Current Medications: Current Medications Sig/Shahla Start time Last Medication Dose Route Stop Time Status Admin Acetaminophen 1,000 MG Q6P PRN 05/06 0600 AC IV Acetaminophen 650 MG Q6P PRN 05/06 0015 AC 05/06 PO 1534 Albuterol Sulfate 2 PUF Q4-6 PRN PRN 05/06 0100 AC INH Diphenhydramine HCl 25 MG Q8P PRN 05/08 0830 AC PO Diphenhydramine HCl 25 MG ONCE ONE 05/08 0445 DC 05/08 IV 05/08 0446 0454 Heparin Sodium 5,000 UNIT Q8 05/06 0600 AC 05/08 (Porcine) SC 0500 Hydromorphone HCl 2 MG Q3P PRN 05/07 1045 AC 05/08 IV 1118 Insulin Aspart 0 TIDAC 05/06 0800 AC 05/08 SC 1256 Insulin Detemir 50 UNITS BID 05/06 1000 AC 05/08 SC 0942 Oxacillin Sodium 2,000 MG Q4 05/06 0200 AC 05/08 Sodium Chloride 100 ML IV 05/16 1300 0942 Oxycodone HCl 10 MG Q8P PRN 05/06 1130 AC 05/07 PO 0817 Pregabalin 150 MG BID 05/06 0046 AC 05/08 PO 0942 Sodium Chloride 1,000 ML .Q8H 05/06 1200 DC 05/07 IV 1431 Review of Systems Review of Systems: She complains of generalized pain Past History Travel History Traveled to [place] past 21 day No Medical History Neurological: NONE EENT: hearing loss Cardiovascular: NONE Respiratory: asthma Gastrointestinal: necrotizing fasciitis of the perineum Hepatic: NONE Renal: left pararenal abscess Musculoskeletal: OSTEOMYELITIS OF PUBIS PUBIS FX Psychiatric: anxiety, chronic pain disorder, depression, opioid dependence, POLYSUBSTANCE ABUSE NARCOTIC DEPENDENCE SUICIDAL IDEATION Endocrine: INSULIN DEPENDENT DIABETES - noncompliant Blood Disorders: anemia Cancer(s): NONE 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 FH: cirrhosis Psychosocial History Where Do You Live? Home Who Do You Live With? with friend Primary Language: Kenyan Smoking Status: Current Everyday Smoker ETOH Use: denies use Illicit Drug Use: denies illicit drug use Living Will? no Power of Digital Computer Systems Analyst/HCP? no Functional Ability ADLs Independent: dressing, eating, toileting, bathing. Ambulation: independent IADLs Independent: shopping, housework, finances, food prep, telephone, transportation , medication admin. Exam & Diagnostic Data Vital Signs and I&O Vital Signs Date Time Temp Pulse Resp B/P Pulse O2 O2 Flow FiO2 Ox Delivery Rate 05/08 0630 98.9 106 20 110/60 95 Nasal Cannula 05/08 0000 94 Nasal 2.0L Cannula 05/07 2254 99.9 108 20 112/60 94 Nasal Cannula 05/07 1700 98 Nasal 2.0L Cannula 05/07 1645 99.0 118 20 112/62 98 Nasal 2.0L Cannula 05/07 1400 97 Nasal 2.0L Cannula Intake & Output 05/08 1600 05/08 0800 05/08 0000 05/07 1600 05/07 0800 05/07 0000 Intake Total 609 690 5076 1640 1620 Output Total 550 1100 1325 440 580 Balance 250 -924 652 9237 1040 Intake, IV 856 380 4514 1200 1500 Intake, Oral 500 650 480 440 120 Number 0 Bowel Movements Output, Urine 550 1100 1325 440 580 Physical Exam: This is an obese young middle-aged female complaining of generalized pain HEENT exam is normal Chest is clear to limited exam Heart reveals regular rhythm and no murmurs Extremities reveal good pulses and no edema. There are no stigmata of infective endocarditis found Assessment/Plan Assessment/Plan This patient presents with recurrent staph aureus septicemia. The source is probably the skin but it has apparently been difficult to eradicate even with long-term IV antibiotic therapy. A recent transthoracic echocardiogram was negative but was a suboptimal study. MONICA is indicated for completeness. We will try and schedule this soon. Consult Acknowledgment - Thank you for your consult request.
--- NOTE | 2016-05-08 14:00 | NUR ---
ORDER TO REMOVE ELIAS. PT REFUSED, STATES "I CAN'T GET OUT OF BED TO PEE, AND I CAN'T USE THE BEDPAN BECAUSE IT IS TOO PAINFUL." DR ROSARIO NOTIFIED, HE WILL SEE PT AND SPEAK TO HER.
--- NOTE | 2016-05-08 14:30 | NUR ---
TRANSPORT ARRIVED TO SR VICE PRESIDENT PT FOR HIP ASPIRATION PROCEDURE. PT BEGAN CRYING STATING HER FEARS OF THE PROCDEURE AND PAIN, AND THAT HER PAIN MEDS ARE DUE AT 1715 AND SHE DOES NOT WANT TO MISS THEM. CALLED, AND CAME IN TO SEE PT. PT WILL HAVE A DIFFERENT PROCEDURE TOMORROW INSTEAD.
[2016-05-08 15:43] VITALS: BP 110/70
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
--- NOTE | 2016-05-08 19:03 | Event Note ---
Event Note Event Note: Refused IR aspiration. Spoke to Dr. Dunbar who said pt will get tagged WBC scan tommorrow. order placed. Pt informed.
--- NOTE | 2016-05-08 20:47 | NUR ---
NSG NOTE: PATIENT IS REFUSING TO BE PLACED ON SIZEWISE MATTRESS AT THIS TIME; THIS RN EXPLAINED TO PATIENT THE BENEFITS OF THE SIZEWISE; PATIENT STATES " I AM FEELING VERY DEPRESSED RIGHT NOW AND I DONT WANT TO MOVE, I AM COMFORTABLE WHERE I AM" RADIATION CONTROL SPECIALIST KAITLIN GRESHAM AND [employer] AWARE;
[2016-05-08 23:02] VITALS: BP 106/48
--- NOTE | 2016-05-09 06:31 | PN- Housestaff ---
See Addendum Subjective Follow-up For: Bacteremia Right hip pain Subjective: Patient seen and examined at bedside. Patient complains of persistent pain in the right hip. Refusing IR aspiration, stating "I don't want anybody to touch me." Patient requests general anesthesia for further procedures. Remains HDS and afebrile with no active signs of SIRS on oxacillin. Blood culture from the Pro line is growing GPC. NGTD in the culture from peripheral line. Review of Systems Constitutional: Denies: chills, diaphoresis, fever. Musculoskeletal: Reports: joint pain (Right hip pain). Comments: Genitourinary: Denies: dysuria, frequency, hematuria. Skin: Denies: rash. Neurological/Psychological: Denies: confusion, numbness. Hematologic/Endocrine: Denies: bruising, bleeding. Objective Last 24 Hrs of Vital Signs/I&O Vital Signs Date Time Temp Pulse Resp B/P Pulse O2 O2 Flow FiO2 Ox Delivery Rate 05/09 0730 98.0 93 18 116/64 95 Room Air 05/09 0000 Nasal 2.0L Cannula 05/08 2302 99.0 104 20 106/48 93 Room Air 05/08 1543 99.3 113 22 110/70 93 Intake & Output 05/09 1600 05/09 0800 05/09 0000 Intake Total 330 570 Output Total 900 1350 Balance -570 -780 Intake, IV 330 120 Intake, Oral 450 Number 0 0 Bowel Movements Output, Urine 900 1350 Physical Exam General Appearance: Alert, Oriented X3, Cooperative, Mild Distress Other Physical Findings: Skin right shoulder wound oozing - improving HEENT Atraumatic, PERRLA, EOMI, Mucous Membr. moist/pink Neck Supple, No JVD Cardiovascular Regular Rate, Normal S1, Normal S2, No Murmurs Abdomen Normal Bowel Sounds, mild tenderness on the right side Neurological Normal Speech, Strength at 5/5 X4 Ext, Normal Tone MSK severe TTP and limited ROM in R hip Extremities No Clubbing, No Cyanosis, No Edema, Vascular Normal Pulses Current Medications: Current Medications Sig/Shahla Start time Last Medication Dose Route Stop Time Status Admin Acetaminophen 1,000 MG Q6P PRN 05/06 0600 AC IV Acetaminophen 650 MG Q6P PRN 05/06 0015 AC 05/06 PO 1534 Albuterol Sulfate 2 PUF Q4-6 PRN PRN 05/06 0100 AC INH Baclofen 10 MG Q6P PRN 05/08 2030 AC PO Clonidine 0.1 MG Q8 05/080 AC PO Dicyclomine HCl 20 MG 4 TIMES/DAY PRN 05/08 2030 AC PO Diphenhydramine HCl 25 MG Q8P PRN 05/08 0830 DC PO Heparin Sodium 5,000 UNIT Q8 05/06 0600 AC 05/09 (Porcine) SC 0620 Hydromorphone HCl 2 MG Q3P PRN 05/07 1045 AC 05/09 IV 0901 Hydroxyzine HCl 50 MG Q6-PRN PRN 05/08 2030 AC PO Insulin Aspart 0 TIDAC 05/06 0800 DC 05/08 SC 1817 Insulin Detemir 50 UNITS BID 05/06 1000 AC 05/08 SC 2200 Insulin Human Regular 0 Q6 05/09 1200 AC SC Oxacillin Sodium 2,000 MG Q4 05/06 0200 AC 05/09 Sodium Chloride 100 ML IV 05/16 1300 0620 Oxycodone HCl 10 MG Q8P PRN 05/06 1130 AC 05/07 PO 0817 Potassium Chloride 10 MEQ ONCE ONE 05/08 2115 DC IV 05/08 2116 Potassium Chloride 10 MEQ ONCE ONE 05/08 2115 DC 05/09 IV 05/08 211 0520 Pregabalin 150 MG BID 05/06 0046 AC 05/08 PO 2200 Last 24 Hrs of Lab/Haris Results Last 24 Hrs of Labs/Mics: Laboratory Tests 05/09/16 0705: Anion Gap 8, Estimated GFR > 60, BUN/Creatinine Ratio 27.1 H, Magnesium 1.7, CBC w Diff NO MAN DIFF REQ, RBC 3.78 L, MCV 73.0 L, MCH 23.5 L, RDW 19.8 H, MPV 12.2 H, Gran % 80.9 H, Lymphocytes % 11.3 L, Monocytes % 2.2, Eosinophils % 5.5 H, Basophils % 0.1, Absolute Granulocytes 6.3, Absolute Lymphocytes 0.9 L, Absolute Monocytes 0.2, Absolute Eosinophils 0.4, Absolute Basophils 0, PUBS MCHC 32.2 L Microbiology 05/09 1017 BLOOD: Blood Culture - COLB 05/09 1017 BLOOD: Blood Culture - COLB Assessment/Plan Assessment: Ms. Urias is 40-year-old female with a past medical history of osteomyelitis of pubis, necrotizing fasciitis of the perineum, hysterectomy, colostomy reversed, left renal abscess, C. difficile colitis,anxiety, depression, chronic pain disorder,chronic back pain,chronic anemia, poorly controlled IDDM 2, DKA, recent fall with minimal displaced pelvic fracture, right shoulder cellulitis s/ p incision and drainage on oxacillin to finish a course of 4 weeks (untilMay 12) discharged 04/18/16, presenting with a chief complaint of worsening right pelvic and hip pain for 2 days. # GPC sepsis 2/2 bacteremia and celluitis Patient found to be septic on admission with fever, tachycardia and first set of blood cultures growing staph aureus. Patient was placed on vancomycin in addition to oxacillin on which patient had already been for cellulitis prior the this admission. Patient went into a septic shock on 05/06 which resolved with aggressive IVF resucsitation. Blood cultures are growing staph aureus. At this point, there is still need to search for the definite source of bacteremia besides the cellulitis. TTE was negative fbut MONICA is still warranted to rule out endocarditis. Blood culture from the Pro line is growing GPC but nothing in the culture from peripheral line. This could potentially indicate the source of infection is the central line. - MRI pelvis (05/07) - Bone marrow edema within the pubic rami extending to the right acetabulum compatible with posttraumatic inflammatory change. Soft tissue edema surrounds the rami fractures without evidence of a focal, organized fluid collection in this region. Small right hip joint effusion nonspecific but possibly indicative of early infectious arthritis. * ID consulted, follow recs * Continue Oxacillin * Cont to monitor for signs of infection, especially blood pressure * Pursue IR aspiration of joint effusion (patient currently refusing) * Repeat blood cultures 2 (one from pro-line, other from periph line) * MONICA today - to rule out endocarditis (Dr. Moseley consulted) * WBC scan at 3:30PM today * Remove yao and substitute with straight cath once patient tolerates/consents # Hyponatremia Patient presented with a sodium level of 114 (corrected Na 122), consistent with acute on chronic hyponatremia. This is most attributable to pseudohyponatremia in the setting of hyperglycemia, possibly with a component of SIADH/sepsis/poor intake. Patient is currently has no significant neurological symptoms. Serum & urine osmolality WNL. * Check BEP daily, trend Na - improving, currently stable # Poor controlled diabetes * Novolog SSI with accuchecks * Continue Levemir 50U SQ BID # Chronic pain syndrome Patient carries a hx of chronic pain disorder. Patient does have a fracture in the right hip from a fall a month ago. Ortho saw the patient and recommended conservative management without any further interventions at that time. * Adequate pain control with Dilaudid 2mg Q3 PRN breaktrhoughs and Roxicodone 10mg PO TID # Mood disorders * Psych consulted, appreciate recs * Clonidine 0.1 mg PO every 8 hours as needed, if opiate withdrawal symptoms. Hold Clonidine for blood pressure less than 90 mmHg systolic, less than 60 mmHg diastolic or pulse less than 55 BPM. * Baclofen 10 mg PO every 6 hours, as needed, for muscle cramps. * Dicyclomine (Bentyl) 20 mg PO every 6 hours, as needed, for GI cramps. * Hydroxyzine (Atarax or Vistaril) 50 mg PO every 6 hours, as needed, for anxiety and itching. # Diet regular diet # Moderate-Severe pain pathway # DVT prophylaxis heparin subcutaneous # Full code Problem List: 1. Pubic ramus fracture 2. Cellulitis 3. Fracture of right inferior pubic ramus 4. Chronic pain syndrome 5. Right hip pain Pain Ratin Pain Location: R hip Pain Goal: Pain 4 or less Pain Plan: Moderate pain pathway Tomorrow's Labs & Rationales: CBC - trend WBC to monitor infection and H/H to monitor for acute on chronic anemia BEP - monitor for electrolyte disturbance and renal fx in the setting of sepsis
[2016-05-09 07:30] VITALS: BP 116/64
[2016-05-09 08:50] LABS: ABSOLUTE BASOPHIL COUNT 0 /CUMM (0.0-0.2); ABSOLUTE EOSINOPHIL COUNT 0.4 /CUMM (0.0-0.7); ABSOLUTE GRANULOCYTE CT 6.3 /CUMM (1.4-6.5); ABSOLUTE LYMPH COUNT 0.9 /CUMM (1.2-3.4); ABSOLUTE MONOCYTE COUNT 0.2 /CUMM (0.10-0.60); BASOPHIL % 0.1 % (0.0-2.0); EOSINOPHIL % 5.5 % (0-5); HEMATOCRIT 27.6 % (37-47); MEAN CORPUSCULAR HGB 23.5 PG (27.0-31.0); MEAN CORPUSCULAR HGB CONC 32.2 G/DL (33.0-37.0); MEAN PLATELET VOLUME 12.2 FL (7.4-10.4); PLATELET COUNT 78 /CUMM (130-400); RBC DISTRIBUTION WIDTH 19.8 % (11.5-14.5); RED BLOOD CELL CT 3.78 /CUMM (4.20-5.40); WHITE BLOOD CELL COUNT 7.7 /CUMM (4.8-10.8)
[2016-05-09 09:32] LABS: GRANULOCYTE % 80.9 % (42.2-75.2)
--- NOTE | 2016-05-09 11:01 | PN- Infect Dx ---
Subjective Subjective: Afebrile. She continues to complain of generalized pain, but does focus on the right hip and, to a lesser extent, the left shoulder. Objective Last 24 Hrs of Vital Signs/I&O Vital Signs Date Time Temp Pulse Resp B/P Pulse O2 O2 Flow FiO2 Ox Delivery Rate 05/09 0730 98.0 93 18 116/64 95 Room Air 05/09 0000 Nasal 2.0L Cannula 05/08 2302 99.0 104 20 106/48 93 Room Air 05/08 1543 99.3 113 22 110/70 93 Intake & Output 05/09 1600 05/09 0800 05/09 0000 Intake Total 330 570 Output Total 900 1350 Balance -570 -780 Intake, IV 330 120 Intake, Oral 450 Number 0 0 Bowel Movements Output, Urine 900 1350 Physical Exam Other Physical Findings: She is emotional and tearful but appears in no acute distress Lungs are clear Chest Pro-Line catheter in the left upper chest with no inflammation at the site Heart regular rhythm with no murmur Extremities tender on palpation over the left shoulder with good range of motion ; right hip difficult to evaluate given pain on minimal movement or palpation; right thigh swelling compared to the left thigh, with no tenderness on palpation Orta catheter remains in place Results Last 24 Hours of Lab Results: Laboratory Tests 05/09 07 Chemistry Sodium (137 - 145 mmol/L) 129 L Potassium (3.5 - 5.1 mmol/L) 3.9 Chloride (98 - 107 mmol/L) 100 Carbon Dioxide (22 - 30 mmol/L) 22 Anion Gap (5 - 16) 8 BUN (7 - 17 mg/dL) 19 H Creatinine (0.5 - 1.0 mg/dL) 0.7 Estimated GFR (>60 ml/min) > 60 BUN/Creatinine Ratio (7 - 25 %) 27.1 H Magnesium (1.6 - 2.3 mg/dL) 1.7 Hematology CBC w Diff NO MAN DIFF REQ WBC (4.8 - 10.8 /CUMM) 7.7 RBC (4.20 - 5.40 /CUMM) 3.78 L Hgb (12.0 - 16.0 G/DL) 8.9 L Hct (37 - 47 %) 27.6 L MCV (81.0 - 99.0 FL) 73.0 L MCH (27.0 - 31.0 PG) 23.5 L RDW (11.5 - 14.5 %) 19.8 H Plt Count (130 - 400 /CUMM) 78 L MPV (7.4 - 10.4 FL) 12.2 H Gran % (42.2 - 75.2 %) 80.9 H Lymphocytes % (20.5 - 51.1 %) 11.3 L Monocytes % (1.7 - 9.3 %) 2.2 Eosinophils % (0 - 5 %) 5.5 H Basophils % (0.0 - 2.0 %) 0.1 Absolute Granulocytes (1.4 - 6.5 /CUMM) 6.3 Absolute Lymphocytes (1.2 - 3.4 /CUMM) 0.9 L Absolute Monocytes (0.10 - 0.60 /CUMM) 0.2 Absolute Eosinophils (0.0 - 0.7 /CUMM) 0.4 Absolute Basophils (0.0 - 0.2 /CUMM) 0 PUBS MCHC (33.0 - 37.0 G/DL) 32.2 L Last 24 Hours of Haris Results: Blood cultures May 08 one bottle (drawn from the line) positive for gram- positive cocci in clusters Urine culture May 06 greater than 100,000 colonies of gram negative rods Assessment/Plan Impression: Recurrent Methicillin sensitive Staph aureus sepsis despite treatment with Oxacillin now Day 25 for recent MSSA sepsis presumed secondary to the abscess on her right upper back, which has resolved. She presumably has a focus of infection that she seeded on her recent bacteremia, with areas of concern including the right hip, status post a recent fracture, with a small effusion noted on the MRI, with right hip aspiration scheduled for yesterday canceled by IR, the heart valves, including an abscess, with MONICA scheduled for later today, the Pro-Line catheter, placed on her recent admission, though there is no inflammation at the site and it was placed after blood cultures were negative, and the spine, though the MRI did not reveal any paraspinal process. The positive urine culture is of unclear significance and, as she had no urinary symptoms on admission, likely represents asymptomatic bacteriuria. The right thigh swelling may be related to her right hip fracture, but a DVT should be ruled out. Suggestion: 1. Repeat blood cultures 2 (one from the line and 1 from the periphery) 2. Await MONICA later today 3. Await white blood cell scan (to be done today) 4. Doppler of the right lower extremity 5. Would check INR 6. Would remove Orta catheter as soon as feasible 7. Continue Oxacillin
--- NOTE | 2016-05-09 13:10 | ECHOCARDIOGRAM REPORT ---
SIS MARTINI Age: 40 : Gender: F Exam Date: 05/09/2016 11:16 Exam Location: [place] Ht (in): 65 Wt (lb): 221 BSA: 2.19 BP: 108 / 58 Ordering Physician: GAYATHRI MOSELEY MD Referring Physician: GAYATHRI MOSELEY MD Technologist: Fede Conner [facility] Room Number: 237-1 Indications: INFECTIVE ENDOCARDITIS Rhythm: Sinus Technical Quality: Good Medications Propofol administered by Anesthesiology. Ease of Transducer Insertion No Difficulty Complications None. Technical Difficulty none FINDINGS Left Ventricle Normal left ventricular size, wall thickness and systolic function with no obvious regional wall motion abnormalities. Right Ventricle The right ventricle is normal in size and function. Right Atrium The right atrium is normal in size. Left Atrium The left atrium is normal in size. The interatrial septum is intact. LA Appendage Normal IA Septum Intact Mitral Valve The mitral valve is normal in structure and function. There is trace mitral regurgitation. Aortic Valve Structurally normal aortic valve without significant sclerosis or stenosis. There is no aortic regurgitation. Tricuspid Valve The tricuspid valve is normal in structure and function. There is trace tricuspid regurgitation. Pulmonic Valve Structurally normal pulmonic valve. There is no pulmonic regurgitation. Pericardium Normal pericardium without effusion Great Vessels Normal descending aorta and aortic arch. CONCLUSIONS Normal transesophageal echocardiogram. No vegetations seen on this study. Gayathri Moseley M.D. (Electronically Signed) Final Date: 09 May 2016 13:09 MEASUREMENTS (Male / Female) Normal Values
[2016-05-09 14:22] VITALS: BP 100/68
[2016-05-09 15:05] LABS: PT 11.1 SEC (9.4-12.5)
--- NOTE | 2016-05-09 16:51 | ULTRASOUND REPORT ---
EXAMINATION: US TRIPLEX LOWER EXTREMITY, RIGHT CLINICAL INFORMATION: Right leg pain COMPARISON: None. TECHNIQUE: Color-flow triplex imaging with spectral analysis and compression Doppler were performed on the right lower extremity. FINDINGS: Respiratory variation, normal compression and augmented flow are noted throughout the lower extremity. The visualized common femoral vein, superficial femoral vein, profunda femoral vein, popliteal vein and mid calf peroneal and posterior tibial venous segments show no evidence of deep venous thrombosis. There is no Turner's cyst. IMPRESSION: Normal triplex scan without evidence of deep venous thrombosis involving the right lower extremity.
--- NOTE | 2016-05-09 18:07 | NUCLEAR MEDICINE REPORT ---
EXAMINATION: TC-99M CERETEC WHITE BLOOD CELL STUDY CLINICAL INFORMATION: Infection. Bacteremia. COMPARISON: No previous labeled white cell study is available for comparison. Radiographs of the chest dated 05/05/2016 are available for comparison. The diagnostic CT scan of the abdomen and pelvis, dated 05/06/2016, is available for comparison. TECHNIQUE: Multiple gamma scintillation camera images of the whole body were performed 2 hours following the intravenous administration via the patient's PICC line of 17.5 millicuries technetium 99m Ceretec labeled autologous white cells. Abdomen and pelvis additional oblique views of the chest, abdomen, and pelvis were also obtained. FINDINGS: There is moderately intense diffusely increased activity present in the lungs. A small focus of activity in the region of the superior vena cava likely represents some minimal retention of activity in the intravenous line used to to administer the labeled white cells, and is best seen on the posterior view of the whole body. No other abnormal activity is visualized. The spleen is moderately enlarged but the activity in the spleen appears homogeneous. All the other activity visualized appears physiological. Some urinary activity is visualized in the bladder and a a draining Orta catheter. Chest radiographs dated 05/05/2016 is the most recent available for comparison and shows no abnormality that would correspond to the diffuse white cell activity visualized in the lungs on this study. IMPRESSION: Moderately intense diffuse lung activity is nonspecific and may be due to some white cell damage during the labeling procedure. A diffuse inflammatory process in the lungs cannot be ruled out, however. The spleen is moderately enlarged, but the activity in the spleen is homogeneous. No other abnormalities are noted. All the other activity appears physiological.
[2016-05-09 23:09] VITALS: BP 110/70
[2016-05-10 05:49] LABS: ABSOLUTE BASOPHIL COUNT 0 /CUMM (0.0-0.2); ABSOLUTE EOSINOPHIL COUNT 0.6 /CUMM (0.0-0.7); ABSOLUTE GRANULOCYTE CT 6.9 /CUMM (1.4-6.5); ABSOLUTE LYMPH COUNT 1.1 /CUMM (1.2-3.4); ABSOLUTE MONOCYTE COUNT 0.3 /CUMM (0.10-0.60); BASOPHIL % 0.3 % (0.0-2.0); EOSINOPHIL % 7.1 % (0-5); GRANULOCYTE % 77.2 % (42.2-75.2); HEMATOCRIT 26.7 % (37-47); MEAN CORPUSCULAR HGB 23.6 PG (27.0-31.0); MEAN CORPUSCULAR HGB CONC 32.1 G/DL (33.0-37.0); MEAN CORPUSCULAR VOLUME 73.5 FL (81.0-99.0); MEAN PLATELET VOLUME 11.2 FL (7.4-10.4); PLATELET COUNT 114 /CUMM (130-400); RED BLOOD CELL CT 3.64 /CUMM (4.20-5.40)
[2016-05-10 06:24] VITALS: BP 110/64
--- NOTE | 2016-05-10 08:40 | PN- Housestaff ---
FRANNY FARFAN,[facility] [place] 05/10/16 0840: Subjective Follow-up For: Bacteremia Right hip pain Subjective: Patient seen and examined this morning. She is complaining of severe pain in her R hip and L shoulder and crying. She endorses pain at the left chest Pro-Line site. She feels itchy all over and reports that only IV Benadryl works. Review of Systems Constitutional: Denies: chills, fever. Cardiovascular: Denies: chest pain. Respiratory: Denies: cough, short of breath. Gastrointestinal: Denies: abdominal pain, constipation, diarrhea, nausea, vomiting. Musculoskeletal: Reports: joint pain. Objective Last 24 Hrs of Vital Signs/I&O Vital Signs Date Time Temp Pulse Resp B/P Pulse O2 O2 Flow FiO2 Ox Delivery Rate 05/10 1459 97.6 90 22 120/72 98 05/10 1314 84 120/72 05/10 0624 97.7 100 20 110/64 96 Room Air 05/10 0524 100 100/64 05/09 2309 97.9 95 20 110/70 97 Room Air 05/09 2217 95 110/70 Intake & Output 05/10 1600 05/10 0800 05/10 0000 Intake Total 600 900 600 Output Total 350 650 401 Balance 250 250 199 Intake, IV 300 Intake, Oral 600 600 600 Number 2 1 1 Bowel Movements Output, Stool 1 Output, Urine 350 650 400 Patient 100.244 kg Weight Physical Exam General Appearance: Alert, Oriented X3, Mild Distress, Crying HEENT: Mucous Membr. moist/pink Cardiovascular: Regular Rate, Normal S1, Normal S2, No Murmurs, Gallops, Rubs Lungs: Clear to Auscultation, Normal Air Movement Abdomen: Soft, No Tenderness, Positive Bowel Sounds Extremities: No Clubbing, No Cyanosis, No Edema Current Medications: Current Medications Sig/Shahla Start time Last Medication Dose Route Stop Time Status Admin Acetaminophen 1,000 MG Q6P PRN 05/06 0600 AC IV Acetaminophen 650 MG Q6P PRN 05/06 0015 AC 05/06 PO 1534 Albuterol Sulfate 2 PUF Q4-6 PRN PRN 05/06 0100 AC INH Baclofen 10 MG Q6P PRN 05/08 2030 AC PO Clonidine 0.1 MG Q8 05/08 2200 AC 05/10 PO 1314 Dicyclomine HCl 20 MG 4 TIMES/DAY PRN 05/08 2030 AC PO Diphenhydramine HCl 25 MG ONCE ONE 05/10 1045 DC 05/10 IV 05/10 1046 1217 Diphenhydramine HCl 25 MG ONCE ONE 05/09 2230 DC 05/09 IV 05/09 2231 2308 Heparin Sodium 5,000 UNIT Q8 05/06 0600 AC 05/10 (Porcine) SC 1322 Hydromorphone HCl 2 MG ONCE PRN 05/09 1430 AC 05/09 IV 1701 Hydromorphone HCl 2 MG Q3P PRN 05/07 1045 AC 05/10 IV 1843 Hydroxyzine HCl 50 MG Q6-PRN PRN 05/08 2030 AC PO Insulin Aspart 0 TIDAC 05/09 1700 AC 05/10 SC 1826 Insulin Detemir 50 UNITS BID 05/06 1000 AC 05/10 SC 1001 Oxacillin Sodium 2,000 MG Q4H 05/10 0200 AC 05/10 Sodium Chloride 100 ML IV 1830 Oxacillin Sodium 2,000 MG Q4 05/06 0200 DC 05/09 Sodium Chloride 100 ML IV 05/16 1300 2210 Oxycodone HCl 10 MG Q8P PRN 05/06 1130 AC 05/07 PO 0817 Pregabalin 150 MG .STK-MED ONE 05/09 2149 DC PO 05/09 2150 Pregabalin 150 MG BID 05/06 0046 AC 05/10 PO 1001 Last 24 Hrs of Lab/Haris Results Last 24 Hrs of Labs/Mics: Laboratory Tests 05/10/16 0525: Anion Gap 7, Estimated GFR > 60, BUN/Creatinine Ratio 23.3, CBC w Diff NO MAN DIFF REQ, RBC 3.64 L, MCV 73.5 L, MCH 23.6 L, RDW 20.0 H, MPV 11.2 H, Gran % 77.2 H, Lymphocytes % 12.5 L, Monocytes % 2.9, Eosinophils % 7.1 H, Basophils % 0.3, Absolute Granulocytes 6.9 H, Absolute Lymphocytes 1.1 L, Absolute Monocytes 0.3, Absolute Eosinophils 0.6, Absolute Basophils 0, PUBS MCHC 32.1 L Microbiology BCx (05/08): GPCs in pairs and chains from both line and periphery BCx (05/09): GPCs in pairs and chains from line culture, periphery culture negative Orders Radiology Findings: RLE VENOUS DOPPLER (05/09): Normal triplex scan without evidence of deep venous thrombosis involving the right lower extremity. MONICA (05/09): Normal transesophageal echocardiogram. No vegetations seen on this study. Assessment/Plan Assessment: Ms. Urias is 40-year-old female with a past medical history of osteomyelitis of pubis, necrotizing fasciitis of the perineum, hysterectomy, colostomy reversed, left renal abscess, C. difficile colitis,anxiety, depression, chronic pain disorder,chronic back pain,chronic anemia, poorly controlled IDDM 2, DKA, recent fall with minimal displaced pelvic fracture, right shoulder cellulitis s/ p incision and drainage on oxacillin to finish a course of 4 weeks (untill May 12) discharged 04/18/16, presenting with a chief complaint of worsening right pelvic and hip pain for 2 days. # GPC sepsis 2/2 bacteremia and celluitis Patient found to be septic on admission with fever, tachycardia and first set of blood cultures growing staph aureus. Patient was placed on vancomycin in addition to oxacillin on which patient had already been for cellulitis prior the this admission. Patient went into a septic shock on 05/06 which resolved with aggressive IVF resucsitation. Blood cultures are growing staph aureus. At this point, there is still need to search for the definite source of bacteremia besides the cellulitis. TTE was negative fbut MONICA is still warranted to rule out endocarditis. Blood culture from the Pro line is growing GPC but nothing in the culture from peripheral line. This could potentially indicate the source of infection is the central line. - MRI pelvis (05/07) - Bone marrow edema within the pubic rami extending to the right acetabulum compatible with posttraumatic inflammatory change. Soft tissue edema surrounds the rami fractures without evidence of a focal, organized fluid collection in this region. Small right hip joint effusion nonspecific but possibly indicative of early infectious arthritis. Per nursing staff, PICC line could not be successfully placed. * ID consulted, follow recs * Continue Oxacillin * Cont to monitor for signs of infection, especially blood pressure * Pursue IR aspiration of joint effusion (patient currently refusing) * Repeat blood cultures 2 (one from pro-line, other from periph line) * MONICA with no evidence of endocarditis. * WBC scan with moderately diffuse lung activity which may be an artifact, although an inflammatory process in the lungs cannot be ruled out. * Remove yao and substitute with straight cath once patient tolerates/consents # Hyponatremia Patient presented with a sodium level of 114 (corrected Na 122), consistent with acute on chronic hyponatremia. This is most attributable to pseudohyponatremia in the setting of hyperglycemia, possibly with a component of SIADH/sepsis/poor intake. Patient is currently has no significant neurological symptoms. Serum & urine osmolality WNL. * Check BEP daily, trend Na - improving, currently stable # Poor controlled diabetes * Novolog SSI with accuchecks * Continue Levemir 50U SQ BID # Chronic pain syndrome Patient carries a hx of chronic pain disorder. Patient does have a fracture in the right hip from a fall a month ago. Ortho saw the patient and recommended conservative management without any further interventions at that time. * Adequate pain control with Dilaudid 2mg Q3 PRN breaktrhoughs and Roxicodone 10mg PO TID # Mood disorders * Psych consulted, appreciate recs * Clonidine 0.1 mg PO every 8 hours as needed, if opiate withdrawal symptoms. Hold Clonidine for blood pressure less than 90 mmHg systolic, less than 60 mmHg diastolic or pulse less than 55 BPM. * Baclofen 10 mg PO every 6 hours, as needed, for muscle cramps. * Dicyclomine (Bentyl) 20 mg PO every 6 hours, as needed, for GI cramps. * Hydroxyzine (Atarax or Vistaril) 50 mg PO every 6 hours, as needed, for anxiety and itching. # Diet regular diet # Moderate-Severe pain pathway # DVT prophylaxis heparin subcutaneous # Full code Problem List: 1. Abdominal pain in 2. Constipation 3. Diabetes mellitus 4. HYPEREMISIS 5. LOWER GI BLEEDING 6. intractable vomitting 7. Abdominal pain 8. Hypoglycemia 9. 10. Hyperemesis gravidarum 11. Abdominal pain complicating 12. Anxiety 13. Vomiting and diarrhea 14. Hyperglycemia 15. Hypoglycemia associated with diabetes 16. Drug abuse 17. Urinary tract infection 18. Bronchitis 19. Rib pain 20. Asthma exacerbation 21. Skin abscess 22. Cellulitis 23. Cellulitis 24. Diabetes mellitus 25. Asthma 26. DVT prophylaxis 27. Full code status 28. Pain management 29. Abscess 30. DKA (diabetic ketoacidoses) 31. Renal failure 32. Sepsis 33. Cellulitis and abscess 34. Hyponatremia 35. Anay-rectal abscess 36. Perineal abscess, superficial 37. 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 Depressive disorder, not elsewhere classified 40. Dehydration 41. Ketosis 42. Intractable abdominal pain 43. Opioid dependence 44. Pain, abdominal, nonspecific 45. Vomiting alone 46. Intractable nausea and vomiting 47. Narcotic withdrawal 48. Narcotic dependence 49. Colostomy care 50. Abdominal pain 51. Perineal abscess 52. Leukocytosis 53. Abdominal pain 54. Back pain 55. Muscle spasm 56. Chronic osteomyelitis 57. Necrotizing fasciitis 58. Hypokalemia 59. Anemia 60. Vitamin D deficiency 61. Chronic pain 62. Depression (emotion) 63. Acute hypoxemic respiratory failure 64. Aspiration pneumonitis 65. Overdose 66. Overdose 67. PCP abuse 68. Chronic abdominal pain 69. Chronic back pain 70. Hyperglycemia due to type 2 diabetes mellitus 71. Abdominal pain 72. Metabolic acidosis 73. Osteomyelitis 74. Morbid obesity 75. Asthma 76. DVT prophylaxis 77. Full code status 78. Depression 79. Altered mental status 80. DKA (diabetic ketoacidoses) 81. Hematemesis 82. Acute blood loss anemia 83. Hypotension 84. Anemia 85. Guaiac positive stools 86. Parastomal hernia 87. Polysubstance abuse 88. Abnormal LFTs 89. Colostomy hernia 90. Coffee ground emesis 91. Pneumonia 92. Exacerbation of chronic back pain 93. Abdominal pain 94. Elevated transaminase level 95. Uncontrolled diabetes mellitus 96. Postoperative pain 97. Post-op pain 98. Abdominal pain 99. Vomiting 100. Abdominal wall abscess 101. Abdominal pain 102. Nausea and vomiting 103. Hyperglycemia without ketosis 104. Nausea & vomiting 105. Hyperglycemia 106. Urinary tract infection 107. Abscess 108. Perinephric abscess 109. Nephrostomy complication 110. Abdominal pain 111. Diarrhea 112. Flank pain 113. Hematuria 114. Hyperkalemia 115. Hypernatremia 116. Acute kidney injury 117. Bacteremia 118. Intractable vomiting 119. Abdominal pain 120. C. difficile colitis 121. Flank pain, chronic 122. Chest pain 123. Chronic vomiting 124. Contact dermatitis 125. Contact dermatitis 126. Hyponatremia 127. Chronic pain syndrome 128. C. difficile colitis 129. Uncontrolled diabetes mellitus with ketoacidosis 130. Opiate withdrawal 131. Polysubstance abuse 132. Anemia 133. Head injury 134. Knee contusion 135. Hip strain 136. Fall 137. Fracture of right inferior pubic ramus 138. Cellulitis 139. Abscess or cellulitis of back 140. Sepsis 141. Pubic ramus fracture 142. Chronic pruritus 143. Wound check, abscess 144. Right hip pain Pain Ratin Pain Location: R hip and L shoulder Pain Goal: Remain pain free Pain Plan: Dilaudid 2 mg IV PRN for severe pain (scale 7-10) Dilaudid 2 mg IV Q3H PRN for breakthrough pain Roxicodone 10 mg PO Q8H PRN for severe pain (scale 7-10) Tylenol 1 g IV Q6H PRN for moderate pain (scale 4-6) Lyrica 150 mg PO BID Tylenol 650 mg PO Q6H PRN for mild pain (scale 1-3) Tomorrow's Labs & Rationales: CBC to monitor WBC in the setting of active infection BMP and Mg to monitor lytes and kidney function in the setting of electrolyte disturbances ROCKY FARFAN,[facility] 05/10/16 1255: Attending MD Review Statement Attending Statement Attending MD Statement: examined this patient, discuss w/resident/PA/MINE MANAGER, agreed w/resident/PA/MINE MANAGER, reviewed EMR data (avail), reviewed images Attending Assessment/Plan: 40-year-old female with past medical history significant for diabetes mellitus and recently discharged with a ronal cath after being managed for MSSA. She was monitored again complaining of worsening pelvic pain at the site of her pelvic fracture. She was found to be in sepsis with positive blood cultures and was initially ICU but then downgraded to the general floor. Her recent MRI shows small fluid in the right pelvic joint but the patient has refused to allow joint aspiration. Her carotids esophageal echocardiogram, lower extremity Dopplers and white blood cell scan remained inconclusive for a clear source of infection. She remains on oxacillin 2 g IV every 4. She is on IV insulin for control of her diabetes. Her recent to sets of line blood cultures cultures grew gram- positive cocci. The resident discussed the planned with the idea in detail and would follow his recommendations.
[2016-05-10 14:59] VITALS: BP 120/72
[2016-05-10 22:58] VITALS: BP 130/80
[2016-05-11 06:41] VITALS: BP 120/70
[2016-05-11 08:09] LABS: ABSOLUTE BASOPHIL COUNT 0 /CUMM (0.0-0.2); ABSOLUTE EOSINOPHIL COUNT 0.5 /CUMM (0.0-0.7); ABSOLUTE GRANULOCYTE CT 4.9 /CUMM (1.4-6.5); ABSOLUTE MONOCYTE COUNT 0.4 /CUMM (0.10-0.60); BASOPHIL % 0.4 % (0.0-2.0); EOSINOPHIL % 7.8 % (0-5); GRANULOCYTE % 71.5 % (42.2-75.2); HEMATOCRIT 24.9 % (37-47); MEAN CORPUSCULAR HGB 23.5 PG (27.0-31.0); MEAN CORPUSCULAR HGB CONC 31.7 G/DL (33.0-37.0); MEAN CORPUSCULAR VOLUME 74.3 FL (81.0-99.0); MEAN PLATELET VOLUME 10.4 FL (7.4-10.4); PLATELET COUNT 149 /CUMM (130-400); RBC DISTRIBUTION WIDTH 20.1 % (11.5-14.5); RED BLOOD CELL CT 3.36 /CUMM (4.20-5.40); WHITE BLOOD CELL COUNT 6.8 /CUMM (4.8-10.8)
--- NOTE | 2016-05-11 08:49 | PN- Housestaff ---
MARLENE FARFAN,MICHEL 05/11/16 0849: Subjective Follow-up For: Bacteremia Right hip pain Subjective: Patient seen and examined at bedside. Patient continues to have pain in the right hip. 8 out of 10 after receiving Dilaudid this morning. Remains HDS and afebrile with no active signs of SIRS on oxacillin. Repeat blood cultures growing GPC. Review of Systems Constitutional: Reports: see HPI. Objective Last 24 Hrs of Vital Signs/I&O Vital Signs Date Time Temp Pulse Resp B/P Pulse O2 O2 Flow FiO2 Ox Delivery Rate 05/11 0641 98.1 92 20 120/70 96 Room Air 05/11 0618 92 120/70 05/10 2258 97.6 86 22 130/80 98 Room Air 05/10 2231 130/80 05/10 1459 97.6 90 22 120/72 98 05/10 1314 84 120/72 Intake & Output 05/11 1600 05/11 0800 05/11 0000 Intake Total 150 390 Output Total 400 450 Balance -400 150 -60 Intake, IV 150 150 Intake, Oral 240 Number 1 Bowel Movements Output, Urine 400 450 Physical Exam General Appearance: Alert, Oriented X3, Cooperative, Mild Distress Other Physical Findings: Skin right shoulder wound oozing - improving HEENT Atraumatic, PERRLA, EOMI, Mucous Membr. moist/pink Neck Supple, No JVD Cardiovascular Regular Rate, Normal S1, Normal S2, No Murmurs Abdomen Normal Bowel Sounds, mild tenderness on the right side Neurological Normal Speech, Strength at 5/5 X4 Ext, Normal Tone MSK severe TTP and limited ROM in R hip Extremities No Clubbing, No Cyanosis, No Edema, Vascular Normal Pulses Current Medications: Current Medications Sig/Shahla Start time Last Medication Dose Route Stop Time Status Admin Acetaminophen 1,000 MG Q6P PRN 05/06 06 AC IV Acetaminophen 650 MG Q6P PRN 05/06 0015 AC 05/06 PO 1534 Albuterol Sulfate 2 PUF Q4-6 PRN PRN 05/06 100 AC INH Baclofen 10 MG Q6P PRN 05/08 2030 AC PO Clonidine 0.1 MG Q8 05/08 2200 AC 05/11 PO 0618 Dicyclomine HCl 20 MG 4 TIMES/DAY PRN 05/08 2030 AC PO Heparin Sodium 5,000 UNIT Q8 05/06 0600 AC 05/11 (Porcine) SC 0624 Hydromorphone HCl 2 MG ONCE PRN 05/09 1430 AC 05/09 IV 1701 Hydromorphone HCl 2 MG Q3P PRN 05/07 1045 AC 05/11 IV 0924 Hydroxyzine HCl 50 MG Q6-PRN PRN 05/08 2030 AC PO Insulin Aspart 0 TIDAC 05/09 1700 AC 05/11 SC 0924 Insulin Detemir 50 UNITS BID 05/06 1000 AC 05/11 SC 0925 Magnesium Oxide 400 MG ONE ONE 05/100 DC 05/11 PO 05/10 2131 0023 Oxacillin Sodium 2,000 MG Q4H 05/10 0200 AC 05/11 Sodium Chloride 100 ML IV 0925 Oxycodone HCl 10 MG Q8P PRN 05/06 1130 AC 05/11 PO 1046 Potassium Chloride 40 MEQ ONCE ONE 05/10 2115 DC 05/10 PO 05/10 2116 223 Pregabalin 150 MG BID 05/06 0046 AC 05/11 PO 0925 Last 24 Hrs of Lab/Haris Results Last 24 Hrs of Labs/Mics: Laboratory Tests 05/11/16 0630: Anion Gap 5, Estimated GFR > 60, BUN/Creatinine Ratio 20.0, Magnesium 1.4 L, CBC w Diff NO MAN DIFF REQ, RBC 3.36 L, MCV 74.3 L, MCH 23.5 L, RDW 20.1 H, MPV 10.4, Gran % 71.5, Lymphocytes % 15.1 L, Monocytes % 5.2, Eosinophils % 7.8 H, Basophils % 0.4, Absolute Granulocytes 4.9, Absolute Lymphocytes 1.0 L, Absolute Monocytes 0.4, Absolute Eosinophils 0.5, Absolute Basophils 0, PUBS MCHC 31.7 L Microbiology 05/10 1250 BLOOD: Blood Culture - RECD 05/10 1115 BLOOD: Blood Culture - RECD Assessment/Plan Assessment: Ms. Urias is 40-year-old female with a past medical history of osteomyelitis of pubis, necrotizing fasciitis of the perineum, hysterectomy, colostomy reversed, left renal abscess, C. difficile colitis,anxiety, depression, chronic pain disorder,chronic back pain,chronic anemia, poorly controlled IDDM 2, DKA, recent fall with minimal displaced pelvic fracture, right shoulder cellulitis s/ p incision and drainage on oxacillin to finish a course of 4 weeks (untill May 12) discharged 04/18/16, presenting with a chief complaint of worsening right pelvic and hip pain for 2 days. # S. aureus bacteremia Patient found to be septic on admission with fever, tachycardia and first set of blood cultures growing staph aureus. Patient was placed on vancomycin in addition to oxacillin on which patient had already been for cellulitis prior the this admission. Patient went into a septic shock on 05/06 which resolved with aggressive IVF resucsitation. Initial blood cultures grew staph aureus. Repeat cultures growing GPC. At this point, there is still need to search for the definite source of bacteremia besides the cellulitis. TTE and MONICA negative for endocarditis. Blood culture from the Pro line grew GPC before the peripheral line. This raises the suspicion that the source of infection could be from the Pro-line. - MRI pelvis (05/07): - Bone marrow edema within the pubic rami extending to the right acetabulum compatible with posttraumatic inflammatory change. Soft tissue edema surrounds the rami fractures without evidence of a focal, organized fluid collection in this region. Small right hip joint effusion nonspecific but possibly indicative of early infectious arthritis. - WBC scan (05/09): Grossly unremarkable except for moderately intense diffuse lung activity (nonspecific), possibly due to a diffuse inflammatoryprocess in the lungs * ID consulted, follow recs * Continue Oxacillin * Cont to monitor for signs of infection, especially blood pressure * Pursue IR aspiration of joint effusion (patient currently refusing) * Repeat blood cultures 2 (one from pro-line, other from periph line) * Remove Pro-line and try to establish IV access (IV oxacillin may be substituted with IM CTX) * Remove yao and substitute with straight cath once patient tolerates/consents # Hyponatremia Patient presented with a sodium level of 114 (corrected Na 122), consistent with acute on chronic hyponatremia. This is most attributable to pseudohyponatremia in the setting of hyperglycemia, possibly with a component of SIADH/sepsis/poor intake. Patient is currently has no significant neurological symptoms. Serum & urine osmolality WNL. * Check BEP daily, trend Na - improving, currently stable # Poor controlled diabetes * Novolog SSI with accuchecks * Continue Levemir 50U SQ BID # Chronic pain syndrome Patient carries a hx of chronic pain disorder. Patient does have a fracture in the right hip from a fall a month ago. Ortho saw the patient and recommended conservative management without any further interventions at that time. * Adequate pain control with Dilaudid 2mg Q3 PRN breaktrhoughs and Roxicodone 10mg PO TID # Mood disorders * Psych consulted, appreciate recs * Clonidine 0.1 mg PO every 8 hours as needed, if opiate withdrawal symptoms. Hold Clonidine for blood pressure less than 90 mmHg systolic, less than 60 mmHg diastolic or pulse less than 55 BPM. * Baclofen 10 mg PO every 6 hours, as needed, for muscle cramps. * Dicyclomine (Bentyl) 20 mg PO every 6 hours, as needed, for GI cramps. * Hydroxyzine (Atarax or Vistaril) 50 mg PO every 6 hours, as needed, for anxiety and itching. # Diet regular diet # Moderate-Severe pain pathway # DVT prophylaxis heparin subcutaneous # Full code Problem List: 1. Sepsis 2. Pubic ramus fracture 3. Right hip pain 4. Cellulitis 5. Diabetes mellitus Pain Ratin Pain Location: R hip Pain Goal: Pain 4 or less Pain Plan: Moderate-Severe pain pathway Tomorrow's Labs & Rationales: CBC - trend WBC to monitor infection and H/H to monitor for acute on chronic anemia BEP - monitor for electrolyte disturbance and renal fx in the setting of sepsis [facility] 1301: Attending MD Review Statement Attending Statement Attending MD Statement: examined this patient, discuss w/resident/PA/INSURANCE INSTRUCTOR, agreed w/resident/PA/INSURANCE INSTRUCTOR, reviewed EMR data (avail), discussed with nursing, reviewed images Attending Assessment/Plan: 40-year-old female with past medical history significant for diabetes mellitus and recently discharged with a ronal cath after being managed for MSSA. She was monitored again complaining of worsening pelvic pain at the site of her pelvic fracture. She was found to be in sepsis with positive blood cultures and was initially ICU but then downgraded to the general floor. Her recent MRI shows small fluid in the right pelvic joint but the patient has refused to allow joint aspiration. Her carotids esophageal echocardiogram, lower extremity Dopplers and white blood cell scan remained inconclusive for a clear source of infection. She remains on oxacillin 2 g IV every 4. She is on IV insulin for control of her diabetes. Her recent to sets of line blood cultures cultures grew gram- positive cocci. IDs on board and is suggested that her Proline cathetor might be the source for her infection, and is recommended that it should be removed and send the tip for culture, but since the patient is a hard stick and previous multiple attempts has been a failure to get an IV line, patient is reluctant to remove the proline as she won't then be able to get her IV pain medications. The issue has been discussed with the residents and contents and we tried to get an experience nurse to help us putting an IV line for continuation of oxacillin and removing the Proline, or else would give ceftriaxone 1 g IM every 24 hours. We'll continue to follow-up on the patient.
--- NOTE | 2016-05-11 10:18 | PN- Infect Dx ---
Subjective Subjective: Afebrile. She continues to complain of pain in both groins and, to a lesser extent, in the left shoulder. Objective Last 24 Hrs of Vital Signs/I&O Vital Signs Date Time Temp Pulse Resp B/P Pulse O2 O2 Flow FiO2 Ox Delivery Rate 05/11 0641 98.1 92 20 120/70 96 Room Air 05/11 0618 92 120/70 05/10 2258 97.6 86 22 130/80 98 Room Air 05/10 2231 130/80 05/10 1459 97.6 90 22 120/72 98 05/10 1314 84 120/72 Intake & Output 05/11 1600 05/11 0800 05/11 0000 Intake Total 150 390 Output Total 400 450 Balance -400 150 -60 Intake, IV 150 150 Intake, Oral 240 Number 1 Bowel Movements Output, Urine 400 450 Physical Exam Other Physical Findings: She appears more comfortable in no acute distress Chest Pro-Line in the left upper chest with no inflammation at the site Abdomen is soft, nontender Extremities left shoulder with no overlying inflammation and with full range of motion; right hip pain with any movement or palpation Results Last 24 Hours of Lab Results: Laboratory Tests 05/11 0630 Chemistry Sodium (137 - 145 mmol/L) 134 L Potassium (3.5 - 5.1 mmol/L) 3.8 Chloride (98 - 107 mmol/L) 106 Carbon Dioxide (22 - 30 mmol/L) 23 Anion Gap (5 - 16) 5 BUN (7 - 17 mg/dL) 12 Creatinine (0.5 - 1.0 mg/dL) 0.6 Estimated GFR (>60 ml/min) > 60 BUN/Creatinine Ratio (7 - 25 %) 20.0 Magnesium (1.6 - 2.3 mg/dL) 1.4 L Hematology CBC w Diff NO MAN DIFF REQ WBC (4.8 - 10.8 /CUMM) 6.8 RBC (4.20 - 5.40 /CUMM) 3.36 L Hgb (12.0 - 16.0 G/DL) 7.9 L Hct (37 - 47 %) 24.9 L MCV (81.0 - 99.0 FL) 74.3 L MCH (27.0 - 31.0 PG) 23.5 L RDW (11.5 - 14.5 %) 20.1 H Plt Count (130 - 400 /CUMM) 149 MPV (7.4 - 10.4 FL) 10.4 Gran % (42.2 - 75.2 %) 71.5 Lymphocytes % (20.5 - 51.1 %) 15.1 L Monocytes % (1.7 - 9.3 %) 5.2 Eosinophils % (0 - 5 %) 7.8 H Basophils % (0.0 - 2.0 %) 0.4 Absolute Granulocytes (1.4 - 6.5 /CUMM) 4.9 Absolute Lymphocytes (1.2 - 3.4 /CUMM) 1.0 L Absolute Monocytes (0.10 - 0.60 /CUMM) 0.4 Absolute Eosinophils (0.0 - 0.7 /CUMM) 0.5 Absolute Basophils (0.0 - 0.2 /CUMM) 0 PUBS MCHC (33.0 - 37.0 G/DL) 31.7 L Last 24 Hours of Haris Results: Blood cultures May 09 positive for gram positive cocci in clusters Blood cultures May 10 negative so far Recent Imaging Studies: White blood cell scan May 09 reveals moderately intense diffuse lung activity, which is nonspecific, with no other abnormalities noted Right lower extremity Doppler May 09 negative MONICA May 09 no evidence of vegetations Assessment/Plan Impression: Recurrent Methicillin sensitive Staph aureus sepsis despite treatment with Oxacillin now Day 27 for MSSA sepsis identified on her recent admission, which was presumed secondary to the abscess on her right upper back, which has resolved. Her workup to date has not revealed any new focus of infection, with the white blood cell scan only revealing uptake in the lungs, which is felt to be a nonspecific finding and which does not correlate with any clinical findings. She continues to complain of right hip pain, but, with no uptake on the white blood cell scan, and with just a minimal right hip effusion, doubt this is the source of infection and suspect that her pain is secondary to the recent fracture. Her MONICA was negative, making endocarditis unlikely. At this point it appears that the Pro-Line catheter is her most likely source and, therefore, feel that it should be removed. If no peripheral access is able to be obtained then options include placement of a short-term central venous catheter or leaving her with no IV access and giving her medications orally or IM temporarily. Ultimately she will require placement of another tunneled catheter, but this would be done only after her blood cultures are clearly negative. Suggestion: 1. Repeat blood cultures 2 (one from the line and 1 from the periphery) IF her recent blood cultures from May 10 turn positive 2. Would remove the Pro-Line catheter and send the tip for culture 3. Attempt to obtain peripheral access or, if not feasible, would place a short -term central line 4. Continue Oxacillin, but if she is left with no IV access, would begin Ceftriaxone 1 g IM every 24 hours
[2016-05-11 14:31] VITALS: BP 125/72
--- NOTE | 2016-05-11 17:09 | Event Note ---
Event Note Event Note: I spoke to IR work media services coordinator for the weekend and requested the removal of the pro line cathetet as it was placed under IR guidance. I gave my personal cell phone number and the floor number for the call back. No response was received in the next 2 hours. I then discussed with the ID staff who recommended that we should consult to Gen. surgery in seeking help regarding the removal of the pro line. I spoke to Dr. Farrell who was medical secretary receptionist and after discussing with him he recommended and requested the surgical PA to a evaluated the patient. After discussing with the surgical PA was decided that the patient would need IR guided removal of the pro line catheter and also recommend that the patient should receive PICC line at the time the catheter is removed.
[2016-05-11 22:54] VITALS: BP 136/60
[2016-05-12 06:00] VITALS: BP 140/66
[2016-05-12 06:06] LABS: ABSOLUTE BASOPHIL COUNT 0 /CUMM (0.0-0.2); ABSOLUTE EOSINOPHIL COUNT 0.5 /CUMM (0.0-0.7); ABSOLUTE GRANULOCYTE CT 4.3 /CUMM (1.4-6.5); ABSOLUTE LYMPH COUNT 1.2 /CUMM (1.2-3.4); ABSOLUTE MONOCYTE COUNT 0.4 /CUMM (0.10-0.60); BASOPHIL % 0.4 % (0.0-2.0); EOSINOPHIL % 7.9 % (0-5); GRANULOCYTE % 66.8 % (42.2-75.2); HEMATOCRIT 27.3 % (37-47); MEAN CORPUSCULAR HGB 23.8 PG (27.0-31.0); MEAN CORPUSCULAR VOLUME 74.3 FL (81.0-99.0); MEAN PLATELET VOLUME 8.9 FL (7.4-10.4); PLATELET COUNT 187 /CUMM (130-400); RBC DISTRIBUTION WIDTH 20.7 % (11.5-14.5); RED BLOOD CELL CT 3.67 /CUMM (4.20-5.40); WHITE BLOOD CELL COUNT 6.5 /CUMM (4.8-10.8)
--- NOTE | 2016-05-12 06:31 | PN- Housestaff ---
MARLENE FARFAN,MICHEL 05/12/16 0631: Subjective Follow-up For: Bacteremia Right hip pain Subjective: Patient seen and examined this morning. Patient endorses right hip pain stable from yesterday but well-controlled with the current regimen. She reports pain rated at 4 out of 10 with Dilaudid and Roxicodone. No new complaints otherwise. Review of Systems Constitutional: Reports: see HPI. Objective Last 24 Hrs of Vital Signs/I&O Vital Signs Date Time Temp Pulse Resp B/P Pulse O2 O2 Flow FiO2 Ox Delivery Rate 05/12 0705 88 136/68 05/12 06 98.3 85 20 140/66 95 Room Air 05/11 2254 97.9 102 20 136/60 99 Room Air 05/11 2157 102 148/74 05/11 1431 98.5 72 20 125/72 96 Intake & Output 05/12 1600 05/12 0800 05/12 0000 Intake Total 250 250 Output Total 550 575 Balance -300 -325 Intake, IV 150 150 Intake, Oral 100 100 Output, Urine 550 575 Physical Exam General Appearance: Alert, Oriented X3, Cooperative, No Acute Distress Other Physical Findings: Cardiovascular: Denies: chest pain. Respiratory: Denies: cough, short of breath. Gastrointestinal: Denies: abdominal pain, constipation, diarrhea, nausea, vomiting. Musculoskeletal: Reports: joint pain. Current Medications: Current Medications Sig/Shahla Start time Last Medication Dose Route Stop Time Status Admin Acetaminophen 1,000 MG Q6P PRN 05/06 06 AC IV Acetaminophen 650 MG Q6P PRN 05/06 0015 AC 05/06 PO 1534 Albuterol Sulfate 2 PUF Q4-6 PRN PRN 05/06 0100 AC INH Baclofen 10 MG Q6P PRN 05/08 2030 AC PO Clonidine 0.1 MG Q8 05/08 2200 AC 05/12 PO 0705 Dicyclomine HCl 20 MG 4 TIMES/DAY PRN 05/08 2030 AC PO Heparin Sodium 5,000 UNIT Q8 05/06 06 AC 05/12 (Porcine) SC 0542 Hydromorphone HCl 2 MG ONCE PRN 05/09 1430 AC 05/09 IV 1701 Hydromorphone HCl 2 MG Q3P PRN 05/07 1045 AC 05/12 IV 0542 Hydroxyzine HCl 50 MG Q6-PRN PRN 12/22 2030 AC PO Insulin Aspart 0 TIDAC 05/09 1700 AC 05/11 SC 1745 Insulin Detemir 50 UNITS BID 05/06 1000 AC 05/11 SC 2159 Magnesium Chloride 64 MG BID 05/11 1127 DC 05/11 PO 05/11 2300 2156 Oxacillin Sodium 2,000 MG Q4H 05/10 0200 AC 05/12 Sodium Chloride 100 ML IV 0542 Oxycodone HCl 10 MG Q8P PRN 05/06 1130 AC 05/11 PO 1046 Pregabalin 150 MG BID 05/06 0046 AC 05/11 PO 2155 Last 24 Hrs of Lab/Haris Results Last 24 Hrs of Labs/Mics: Laboratory Tests 05/12/16 0550: Magnesium 1.4 L, CBC w Diff NO MAN DIFF REQ, RBC 3.67 L, MCV 74.3 L, MCH 23.8 L, RDW 20.7 H, MPV 8.9, Gran % 66.8, Lymphocytes % 18.9 L, Monocytes % 6.0, Eosinophils % 7.9 H, Basophils % 0.4, Absolute Granulocytes 4.3, Absolute Lymphocytes 1.2, Absolute Monocytes 0.4, Absolute Eosinophils 0.5, Absolute Basophils 0, PUBS MCHC 32.0 L Microbiology 05/11 1500 BLOOD: Blood Culture - CAN Cancelled: Cancelled via OE: Per MD Decision 05/11 1500 BLOOD: Blood Culture - CAN Cancelled: Cancelled via OE: Per MD Decision 05/11 1325 CATH TIP: Catheter Tip Culture - COLB Assessment/Plan Assessment: Ms. Urias is 40-year-old female with a past medical history of osteomyelitis of pubis, necrotizing fasciitis of the perineum, hysterectomy, colostomy reversed, left renal abscess, C. difficile colitis,anxiety, depression, chronic pain disorder,chronic back pain,chronic anemia, poorly controlled IDDM 2, DKA, recent fall with minimal displaced pelvic fracture, right shoulder cellulitis s/ p incision and drainage on oxacillin to finish a course of 4 weeks (untill May 12) discharged 04/18/16, presenting with a chief complaint of worsening right pelvic and hip pain for 2 days. # S. aureus bacteremia Patient found to be septic on admission with fever, tachycardia and first set of blood cultures growing staph aureus. Patient was placed on vancomycin in addition to oxacillin on which patient had already been for cellulitis prior the this admission. Patient went into a septic shock on 05/06 which resolved with aggressive IVF resucsitation. Initial blood cultures grew staph aureus. Repeat cultures growing GPC. At this point, there is still need to search for the definite source of bacteremia besides the cellulitis. TTE and MONICA negative for endocarditis. Blood culture from the Pro line grew GPC before the peripheral line. This raises the suspicion that the source of infection could be from the Pro-line. - MRI pelvis (05/07): - Bone marrow edema within the pubic rami extending to the right acetabulum compatible with posttraumatic inflammatory change. Soft tissue edema surrounds the rami fractures without evidence of a focal, organized fluid collection in this region. Small right hip joint effusion nonspecific but possibly indicative of early infectious arthritis. - WBC scan (05/09): Grossly unremarkable except for moderately intense diffuse lung activity (nonspecific), possibly due to a diffuse inflammatoryprocess in the lungs * ID consulted, follow recs * Continue Oxacillin * Cont to monitor for signs of infection, especially blood pressure * Pursue IR aspiration of joint effusion (patient currently refusing) * Repeat blood cultures 2 (one from pro-line, other from periph line) * Remove Pro-line (IV oxacillin may be substituted with IM CTX). IR was contacted today and yesterday regarding Pro-Line removal. Per [facility] protocol, Pro-Line must be removed by IR only. Order and consult placed for IR intervention accordingly this morning. Pending their input. * Remove yao and substitute with straight cath once patient tolerates/consents * Follow wound care recs # Hyponatremia Patient presented with a sodium level of 114 (corrected Na 122), consistent with acute on chronic hyponatremia. This is most attributable to pseudohyponatremia in the setting of hyperglycemia, possibly with a component of SIADH/sepsis/poor intake. Patient is currently has no significant neurological symptoms. Serum & urine osmolality WNL. * Check BEP daily, trend Na - improving, currently stable # Poor controlled diabetes * Novolog SSI with accuchecks * Continue Levemir 50U SQ BID # Chronic pain syndrome Patient carries a hx of chronic pain disorder. Patient does have a fracture in the right hip from a fall a month ago. Ortho saw the patient and recommended conservative management without any further interventions at that time. * Adequate pain control with Dilaudid 2mg Q3 PRN breaktrhoughs and Roxicodone 10mg PO TID # Mood disorders * Psych consulted, appreciate recs * Clonidine 0.1 mg PO every 8 hours as needed, if opiate withdrawal symptoms. Hold Clonidine for blood pressure less than 90 mmHg systolic, less than 60 mmHg diastolic or pulse less than 55 BPM. * Baclofen 10 mg PO every 6 hours, as needed, for muscle cramps. * Dicyclomine (Bentyl) 20 mg PO every 6 hours, as needed, for GI cramps. * Hydroxyzine (Atarax or Vistaril) 50 mg PO every 6 hours, as needed, for anxiety and itching. # Diet regular diet # Moderate-Severe pain pathway # DVT prophylaxis heparin subcutaneous # Full code Problem List: 1. Abdominal pain in 2. Constipation 3. Diabetes mellitus 4. HYPEREMISIS 5. LOWER GI BLEEDING 6. intractable vomitting 7. Abdominal pain 8. Hypoglycemia 9. 10. Hyperemesis gravidarum 11. Abdominal pain complicating 12. Anxiety 13. Vomiting and diarrhea 14. Hyperglycemia 15. Hypoglycemia associated with diabetes 16. Drug abuse 17. Urinary tract infection 18. Bronchitis 19. Rib pain 20. Asthma exacerbation 21. Skin abscess 22. Cellulitis 23. Cellulitis 24. Diabetes mellitus 25. Asthma 26. DVT prophylaxis 27. Full code status 28. Pain management 29. Abscess 30. DKA (diabetic ketoacidoses) 31. Renal failure 32. Sepsis 33. Cellulitis and abscess 34. Hyponatremia 35. Anay-rectal abscess 36. Perineal abscess, superficial 37. 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 Depressive disorder, not elsewhere classified 40. Dehydration 41. Ketosis 42. Intractable abdominal pain 43. Opioid dependence 44. Pain, abdominal, nonspecific 45. Vomiting alone 46. Intractable nausea and vomiting 47. Narcotic withdrawal 48. Narcotic dependence 49. Colostomy care 50. Abdominal pain 51. Perineal abscess 52. Leukocytosis 53. Abdominal pain 54. Back pain 55. Muscle spasm 56. Chronic osteomyelitis 57. Necrotizing fasciitis 58. Hypokalemia 59. Anemia 60. Vitamin D deficiency 61. Chronic pain 62. Depression (emotion) 63. Acute hypoxemic respiratory failure 64. Aspiration pneumonitis 65. Overdose 66. Overdose 67. PCP abuse 68. Chronic abdominal pain 69. Chronic back pain 70. Hyperglycemia due to type 2 diabetes mellitus 71. Abdominal pain 72. Metabolic acidosis 73. Osteomyelitis 74. Morbid obesity 75. Asthma 76. DVT prophylaxis 77. Full code status 78. Depression 79. Altered mental status 80. DKA (diabetic ketoacidoses) 81. Hematemesis 82. Acute blood loss anemia 83. Hypotension 84. Anemia 85. Guaiac positive stools 86. Parastomal hernia 87. Polysubstance abuse 88. Abnormal LFTs 89. Colostomy hernia 90. Coffee ground emesis 91. Pneumonia 92. Exacerbation of chronic back pain 93. Abdominal pain 94. Elevated transaminase level 95. Uncontrolled diabetes mellitus 96. Postoperative pain 97. Post-op pain 98. Abdominal pain 99. Vomiting 100. Abdominal wall abscess 101. Abdominal pain 102. Nausea and vomiting 103. Hyperglycemia without ketosis 104. Nausea & vomiting 105. Hyperglycemia 106. Urinary tract infection 107. Abscess 108. Perinephric abscess 109. Nephrostomy complication 110. Abdominal pain 111. Diarrhea 112. Flank pain 113. Hematuria 114. Hyperkalemia 115. Hypernatremia 116. Acute kidney injury 117. Bacteremia 118. Intractable vomiting 119. Abdominal pain 120. C. difficile colitis 121. Flank pain, chronic 122. Chest pain 123. Chronic vomiting 124. Contact dermatitis 125. Contact dermatitis 126. Hyponatremia 127. Chronic pain syndrome 128. C. difficile colitis 129. Uncontrolled diabetes mellitus with ketoacidosis 130. Opiate withdrawal 131. Polysubstance abuse 132. Anemia 133. Head injury 134. Knee contusion 135. Hip strain 136. Fall 137. Fracture of right inferior pubic ramus 138. Cellulitis 139. Abscess or cellulitis of back 140. Sepsis 141. Pubic ramus fracture 142. Chronic pruritus 143. Wound check, abscess 144. Right hip pain Pain Ratin Pain Location: R hip Pain Goal: Pain 4 or less Pain Plan: Dilaudid 2 mg IV PRN for severe pain (scale 7-10) Dilaudid 2 mg IV Q3H PRN for breakthrough pain Roxicodone 10 mg PO Q8H PRN for severe pain (scale 7-10) Tylenol 1 g IV Q6H PRN for moderate pain (scale 4-6) Lyrica 150 mg PO BID Tylenol 650 mg PO Q6H PRN for mild pain (scale 1-3) Tomorrow's Labs & Rationales: CBC to monitor WBC in the setting of active infection BMP and Mg to monitor lytes and kidney function in the setting of electrolyte disturbances ROCKY FARFAN,BERNAL 05/12/16 1250: Attending MD Review Statement Attending Statement Attending MD Statement: examined this patient, discuss w/resident/PA/[employer], agreed w/resident/PA/[employer], reviewed EMR data (avail), reviewed images Attending Assessment/Plan: thank [id number] female with past medical history significant for diabetes mellitus and recently discharged with a ronal cath after being managed for MSSA. She was monitored again complaining of worsening pelvic pain at the site of her pelvic fracture. She was found to be in sepsis with positive blood cultures and was initially ICU but then downgraded to the general floor. Her recent MRI shows small fluid in the right pelvic joint but the patient has refused to allow joint aspiration. Her carotids esophageal echocardiogram, lower extremity Dopplers and white blood cell scan remained inconclusive for a clear source of infection. She remains on oxacillin 2 g IV every 4. She is on IV insulin for control of her diabetes. Her recent to sets of line blood cultures cultures grew gram-positive cocci. IDs on board and is suggested that her Proline cathetor might be the source for her infection, and is recommended that it should be removed and send the tip for culture, but since the patient is a hard stick and previous multiple attempts has been a failure to get an IV line, patient is reluctant to remove the proline as she won't then be able to get her IV pain medications. Currently waiting for IV remove the And put a PICC line at the same time. For now continue on oxacillin for MSSA.
--- NOTE | 2016-05-12 09:11 | PN- Wound Care ---
Subjective Subjective: Patient denies pain over her right shoulder has noticed markedly reduced drainage Objective Vital Signs and I&Os Vital Signs Result Date Time B/P 136/68 05/12 07 Pulse 88 05/12 07 Pulse Ox 95 05/12 600 O2 Delivery Room Air 05/12 600 Temp 98.3 05/12 06 Resp 20 05/12 600 O2 Flow Rate 2.0L 05/09 0000 Intake & Output 05/12 0000 05/11 1600 05/11 0800 Intake Total 250 600 150 Output Total 575 850 Balance -325 -250 150 Intake, IV 150 150 Intake, Oral 100 600 Output, Urine 575 850 Right shoulder ulcer has clean base and appears to be healing there is minimal drainage is no periwound erythema or induration. Impression/Plan Impression/Plan Impression/Plan: 40-year-old woman with diabetes multiple medical problems with recurrent staph rectum anemia was admitted with persistent right hip and pelvic pain and again found to be bacteremic. The right posterior chest wound does not appear to be infected. The eschar was easily removed was loosely adherent. Recommend wound care with daily cleansing avoidance of pressure and daily Aquacel Ag dressings. Continue offloading the area daily cleansing and Aquacel Ag dressings
--- NOTE | 2016-05-12 12:29 | Event Note ---
Event Note Event Note: Consulted interventional radiologist education research analyst regarding Pro-line removal today. Discussed about the patient's bacteremia and urgent need to take out the line as soon as possible as it is the most likely source of her infection at this point. The physician education research analyst stated that he is currently in [facility] and will take him at least several hours for him to come in today. He said he will try to come in today and keep me updated about the timing later.
[2016-05-12 14:54] VITALS: BP 125/72
--- NOTE | 2016-05-12 16:05 | NUR ---
16:00- REPORTED TO DR. ARREOLA THAT WHEN PROLINE DRESSING WAS CHANGED, A CLOUDY, SLIMY SUBSTANCE WAS NOTED UNDER THE BIOPATCH AT THE PROLINE INSERTION SITE. NO ODOR NOTED. OF THIS NOTE, PROLINE REMAINS IN PLACE AND IS TO BE REMOVED BY INTERVENTIONAL RADIOLOGY.
[2016-05-12 22:35] VITALS: BP 140/70
--- NOTE | 2016-05-13 06:39 | PN- Housestaff ---
MARLENE FARFAN,MICHEL 05/13/16 0639: Subjective Follow-up For: Bacteremia Right hip pain Subjective: Patient seen and examined this morning. Patient is crying because of right hip pain, asking more additional dose of IV Dilaudid. No new complaints otherwise. Understands the need for removing Pro-line and agrees with the plan. Review of Systems Constitutional: Reports: see HPI. Objective Last 24 Hrs of Vital Signs/I&O Vital Signs Date Time Temp Pulse Resp B/P Pulse O2 O2 Flow FiO2 Ox Delivery Rate 05/13 1418 98.0 99 18 160/90 96 Room Air 05/13 1302 156/80 05/13 0708 97.9 98 20 142/78 97 Room Air 05/13 0652 98 142/78 05/12 2235 98.0 95 20 140/70 96 Room Air 05/12 2147 140/71 Intake & Output 05/13 1600 05/13 0800 05/13 0000 Intake Total 600 800 900 Output Total 1050 751 Balance 600 -250 149 Intake, IV 100 400 Intake, Oral 500 800 500 Number 0 Bowel Movements Output, Stool 1 Output, Urine 1050 750 Physical Exam General Appearance: Alert, Oriented X3, Cooperative, Mild Distress Other Physical Findings: Cardiovascular: Denies: chest pain. Respiratory: Denies: cough, short of breath. Gastrointestinal: Denies: abdominal pain, constipation, diarrhea, nausea, vomiting. Musculoskeletal: Reports: right hip pain Current Medications: Current Medications Sig/Shahla Start time Last Medication Dose Route Stop Time Status Admin Acetaminophen 1,000 MG Q6P PRN 05/06 06 AC IV Acetaminophen 650 MG Q6P PRN 05/06 0015 AC 05/06 PO 1534 Albuterol Sulfate 2 PUF Q4-6 PRN PRN 05/06 0100 AC INH Baclofen 10 MG Q6P PRN 05/08 2030 AC 05/13 PO 0859 Clonidine 0.1 MG Q8 05/08 2200 AC 05/13 PO 1302 Dicyclomine HCl 20 MG 4 TIMES/DAY PRN 05/08 2030 AC PO Heparin Sodium 5,000 UNIT Q8 05/06 0600 AC 05/13 (Porcine) SC 1301 Hydromorphone HCl 0.6 MG ONCE ONE 05/13 0845 DC 05/13 IV 05/13 0846 0858 Hydromorphone HCl 2 MG ONCE PRN 05/09 1430 AC 05/09 IV 1701 Hydromorphone HCl 2 MG Q3P PRN 05/07 1045 AC 05/13 IV 1301 Hydroxyzine HCl 50 MG Q6-PRN PRN 05/08 2030 AC 05/13 PO 0859 Influenza Virus 0.5 ML ONCE ONE 05/06 1945 AC Vaccine IM 05/13 2359 Insulin Aspart 0 TIDAC 05/09 1700 AC 05/13 SC 1201 Insulin Detemir 50 UNITS BID 05/06 1000 AC 05/13 SC 0857 Magnesium Sulfate 1 GM Q2H 05/12 1330 DC 05/12 Dextrose/Water 100 ML IV 05/12 1729 1848 Oxacillin Sodium 2,000 MG Q4H 05/10 0200 AC 05/13 Sodium Chloride 100 ML IV 1301 Oxycodone HCl 10 MG Q8P PRN 05/06 1130 AC 05/13 PO 1107 Patient Medication 1 ED .STK-MED ONE 05/13 1427 [facility] Teaching ED 05/13 1428 Pregabalin 150 MG BID 05/06 0046 AC 05/13 PO 0907 Last 24 Hrs of Lab/Haris Results Last 24 Hrs of Labs/Mics: Laboratory Tests 05/13/16 0640: Anion Gap 8, Estimated GFR > 60, BUN/Creatinine Ratio 17.1, Magnesium 1.5 L, CBC w Diff NO MAN DIFF REQ, RBC 3.39 L, MCV 74.8 L, MCH 24.1 L, RDW 21.3 H, MPV 8.9, Gran % 66.9, Lymphocytes % 19.6 L, Monocytes % 6.0, Eosinophils % 7.1 H, Basophils % 0.4, Absolute Granulocytes 4.3, Absolute Lymphocytes 1.3, Absolute Monocytes 0.4, Absolute Eosinophils 0.5, Absolute Basophils 0, PUBS MCHC 32.2 L Microbiology 05/13 1451 URINE ROUT: Urine Culture - ORD 05/13 1451 BLOOD: Blood Culture - ORD 05/13 145 BLOOD: Blood Culture - ORD 05/13 0945 CATH TIP: Catheter Tip Culture - RECD Assessment/Plan Assessment: Ms. Urias is 40-year-old female with a past medical history of osteomyelitis of pubis, necrotizing fasciitis of the perineum, hysterectomy, colostomy reversed, left renal abscess, C. difficile colitis,anxiety, depression, chronic pain disorder,chronic back pain,chronic anemia, poorly controlled IDDM 2, DKA, recent fall with minimal displaced pelvic fracture, right shoulder cellulitis s/ p incision and drainage on oxacillin to finish a course of 4 weeks (untill May 12) discharged 04/18/16, presenting with a chief complaint of worsening right pelvic and hip pain for 2 days. # S. aureus bacteremia Patient found to be septic on admission with fever, tachycardia and first set of blood cultures growing staph aureus. Patient was placed on vancomycin in addition to oxacillin on which patient had already been for cellulitis prior the this admission. Patient went into a septic shock on 05/06 which resolved with aggressive IVF resucsitation. Initial blood cultures grew staph aureus. Repeat cultures growing GPC. TTE and MONICA negative for endocarditis. Blood culture from the Pro line grew GPC before the peripheral line. This raises the suspicion that the source of infection could be from the Pro-line. Blood culture from 2nd venous on 05/10 growing staph coag negative and GPC. Bcx from Pro-line on 05/12 growing GNR. - MRI pelvis (05/07): - Bone marrow edema within the pubic rami extending to the right acetabulum compatible with posttraumatic inflammatory change. Soft tissue edema surrounds the rami fractures without evidence of a focal, organized fluid collection in this region. Small right hip joint effusion nonspecific but possibly indicative of early infectious arthritis. - WBC scan (05/09): Grossly unremarkable except for moderately intense diffuse lung activity (nonspecific), possibly due to a diffuse inflammatoryprocess in the lungs * ID consulted, follow recs * Continue IV Oxacillin - if periph access cannot be established, start IM CTX 1g daily * Cont to monitor for signs of infection, especially blood pressure * Consider IR aspiration of joint effusion (patient currently refusing) * Follow wound care recs * Repeat blood cultures (from periph line) * Remove Pro-line * Follow culture of the tip of catheter * Follow UA, Ucx * Appreciate ortho recs about right hip fracture # Hyponatremia Patient presented with a sodium level of 114 (corrected Na 122), consistent with acute on chronic hyponatremia. This is most attributable to pseudohyponatremia in the setting of hyperglycemia, possibly with a component of SIADH/sepsis/poor intake. Patient is currently has no significant neurological symptoms. Serum & urine osmolality WNL. * Check BEP daily, trend Na - improving, currently stable # Poor controlled diabetes * Novolog SSI with accuchecks * Continue Levemir 50U SQ BID # Chronic pain syndrome Patient carries a hx of chronic pain disorder. Patient does have a fracture in the right hip from a fall a month ago. Ortho saw the patient and recommended conservative management without any further interventions at that time. * Adequate pain control with Dilaudid 2mg Q3 PRN breaktrhoughs and Roxicodone 10mg PO TID # Mood disorders * Psych consulted, appreciate recs * Clonidine 0.1 mg PO every 8 hours as needed, if opiate withdrawal symptoms. Hold Clonidine for blood pressure less than 90 mmHg systolic, less than 60 mmHg diastolic or pulse less than 55 BPM. * Baclofen 10 mg PO every 6 hours, as needed, for muscle cramps. * Dicyclomine (Bentyl) 20 mg PO every 6 hours, as needed, for GI cramps. * Hydroxyzine (Atarax or Vistaril) 50 mg PO every 6 hours, as needed, for anxiety and itching. # Diet regular diet # Moderate-Severe pain pathway # DVT prophylaxis heparin subcutaneous # Full code Problem List: 1. Right hip pain 2. C. difficile colitis 3. Anemia 4. Anxiety 5. Bacteremia Pain Ratin Pain Location: R hip Pain Goal: Pain 4 or less Pain Plan: Dilaudid 2 mg IV PRN for severe pain (scale 7-10) Dilaudid 2 mg IV Q3H PRN for breakthrough pain Roxicodone 10 mg PO Q8H PRN for severe pain (scale 7-10) Tylenol 1 g IV Q6H PRN for moderate pain (scale 4-6) Lyrica 150 mg PO BID Tylenol 650 mg PO Q6H PRN for mild pain (scale 1-3) Tomorrow's Labs & Rationales: CBC to monitor WBC in the setting of active infection BMP and Mg to monitor lytes and kidney function in the setting of electrolyte disturbances ANDREY ALVAREZ MD 05/13/16 1158: Attending MD Review Statement Attending Statement Attending MD Statement: examined this patient, discuss w/resident/PA/SALVAGE MACHINE OPERATOR, agreed w/resident/PA/SALVAGE MACHINE OPERATOR, reviewed EMR data (avail), discussed with nursing, discussed with case mgmt, reviewed images, amended to note Attending Assessment/Plan: Patient seen and examined, complains of pain in the left hip. Patient is here with the staph aureus bacteremia. The source of bacteremia is considered to be her pro-line which is removed today. Vital Signs Date Time Temp Pulse Resp B/P Pulse O2 O2 Flow FiO2 Ox Delivery Rate 05/13 0708 97.9 98 20 142/78 97 Room Air 05/13 0652 98 142/78 05/12 2235 98.0 95 20 140/70 96 Room Air 05/12 2147 140/71 05/12 1454 98.2 80 20 125/72 98 05/12 1422 80 140/64 on exam; aox3, nad. cv; s1,s2, rrr. chest; Pro-line removed and the site has a dressing on now. NO surrounding erythema. resp; clear abd; spft, nt, bs+. ext: no edema Laboratory Tests 05/13 0640 Chemistry Sodium (137 - 145 mmol/L) 135 L Potassium (3.5 - 5.1 mmol/L) 3.8 Chloride (98 - 107 mmol/L) 100 Carbon Dioxide (22 - 30 mmol/L) 27 Anion Gap (5 - 16) 8 BUN (7 - 17 mg/dL) 12 Creatinine (0.5 - 1.0 mg/dL) 0.7 Estimated GFR (>60 ml/min) > 60 BUN/Creatinine Ratio (7 - 25 %) 17.1 Magnesium (1.6 - 2.3 mg/dL) 1.5 L Hematology CBC w Diff NO MAN DIFF REQ WBC (4.8 - 10.8 /CUMM) 6.4 RBC (4.20 - 5.40 /CUMM) 3.39 L Hgb (12.0 - 16.0 G/DL) 8.2 L Hct (37 - 47 %) 25.3 L MCV (81.0 - 99.0 FL) 74.8 L MCH (27.0 - 31.0 PG) 24.1 L RDW (11.5 - 14.5 %) 21.3 H Plt Count (130 - 400 /CUMM) 212 MPV (7.4 - 10.4 FL) 8.9 Gran % (42.2 - 75.2 %) 66.9 Lymphocytes % (20.5 - 51.1 %) 19.6 L Monocytes % (1.7 - 9.3 %) 6.0 Eosinophils % (0 - 5 %) 7.1 H Basophils % (0.0 - 2.0 %) 0.4 Absolute Granulocytes (1.4 - 6.5 /CUMM) 4.3 Absolute Lymphocytes (1.2 - 3.4 /CUMM) 1.3 Absolute Monocytes (0.10 - 0.60 /CUMM) 0.4 Absolute Eosinophils (0.0 - 0.7 /CUMM) 0.5 Absolute Basophils (0.0 - 0.2 /CUMM) 0 PUBS MCHC (33.0 - 37.0 G/DL) 32.2 L A/P; Ms. Urias is 40-year-old female with a past medical history of osteomyelitis of pubis, necrotizing fasciitis of the perineum, hysterectomy, colostomy reversed, left renal abscess, C. difficile colitis,anxiety, depression , chronic pain disorder,chronic back pain,chronic anemia, poorly controlled IDDM 2, DKA, recent fall with minimal displaced pelvic fracture, right shoulder cellulitis s/p incision and drainage on oxacillin to finish a course of 4 weeks (untill May 12) discharged 04/18/16, presenting with a chief complaint of worsening right pelvic and hip pain. Currently admitted with STaph Aureus MSSA bacteremia. Had an extensive workup done and so far the source of bacteremia is considered to be her pro-line which was removed today. Transesophageal echocardiogram was negative for endocarditis. Patient currently getting treated with oxacillin. Currently she has a peripheral IV line. As per Gerald Dunbar MD, if she loses her IV then can be treated with ceftriaxone IM. She will ultimately need another pro-line for the long course of antibiotics. Currently her pain is managed with IV Dilaudid. Blood sugars are in acceptable range on current insulin regimen. DVT prophylaxis: Heparin subcutaneous.
[2016-05-13 07:08] VITALS: BP 142/78
[2016-05-13 08:08] LABS: ABSOLUTE BASOPHIL COUNT 0 /CUMM (0.0-0.2); ABSOLUTE EOSINOPHIL COUNT 0.5 /CUMM (0.0-0.7); ABSOLUTE GRANULOCYTE CT 4.3 /CUMM (1.4-6.5); ABSOLUTE LYMPH COUNT 1.3 /CUMM (1.2-3.4); ABSOLUTE MONOCYTE COUNT 0.4 /CUMM (0.10-0.60); BASOPHIL % 0.4 % (0.0-2.0); EOSINOPHIL % 7.1 % (0-5); GRANULOCYTE % 66.9 % (42.2-75.2); HEMATOCRIT 25.3 % (37-47); MEAN CORPUSCULAR HGB 24.1 PG (27.0-31.0); MEAN CORPUSCULAR HGB CONC 32.2 G/DL (33.0-37.0); MEAN CORPUSCULAR VOLUME 74.8 FL (81.0-99.0); MEAN PLATELET VOLUME 8.9 FL (7.4-10.4); PLATELET COUNT 212 /CUMM (130-400); RBC DISTRIBUTION WIDTH 21.3 % (11.5-14.5); RED BLOOD CELL CT 3.39 /CUMM (4.20-5.40); WHITE BLOOD CELL COUNT 6.4 /CUMM (4.8-10.8)
--- NOTE | 2016-05-13 10:32 | NUR ---
PT REMAINS ANXIOUS, CRYING, INCONSOLABLE. MEDICATED WITH DILAUDID 06. MG IV IN ADDITION TO HER SCHEDULED PAIN MEDS. PROLINE TO BE REMOVED TODAY . LACK OF IV ACCESS EXCEPT FOR ONE PEREPHERAL #24 DISCUSSED WITH TEAM.
--- NOTE | 2016-05-13 10:32 | PN- Infect Dx ---
Subjective Subjective: Afebrile. She continues to complain of pain in the right groin. Objective Last 24 Hrs of Vital Signs/I&O Vital Signs Date Time Temp Pulse Resp B/P Pulse O2 O2 Flow FiO2 Ox Delivery Rate 05/13 0708 97.9 98 20 142/78 97 Room Air 05/13 0652 98 142/78 05/12 2235 98.0 95 20 140/70 96 Room Air 05/12 2147 140/71 05/12 1454 98.2 80 20 125/72 98 05/12 1422 80 140/64 Intake & Output 05/13 1600 05/13 0800 05/13 0000 Intake Total 800 900 Output Total 1050 751 Balance -250 149 Intake, IV 400 Intake, Oral 800 500 Output, Stool 1 Output, Urine 1050 750 Physical Exam Other Physical Findings: She is awake and alert in no acute distress Chest Pro-Line in the left upper chest with no inflammation at the site Lungs are clear Heart regular rhythm with no murmur Extremities right lower extremity pain on minimal palpation or movement Results Last 24 Hours of Lab Results: Laboratory Tests 05/13 0640 Chemistry Sodium (137 - 145 mmol/L) 135 L Potassium (3.5 - 5.1 mmol/L) 3.8 Chloride (98 - 107 mmol/L) 100 Carbon Dioxide (22 - 30 mmol/L) 27 Anion Gap (5 - 16) 8 BUN (7 - 17 mg/dL) 12 Creatinine (0.5 - 1.0 mg/dL) 0.7 Estimated GFR (>60 ml/min) > 60 BUN/Creatinine Ratio (7 - 25 %) 17.1 Magnesium (1.6 - 2.3 mg/dL) 1.5 L Hematology CBC w Diff NO MAN DIFF REQ WBC (4.8 - 10.8 /CUMM) 6.4 RBC (4.20 - 5.40 /CUMM) 3.39 L Hgb (12.0 - 16.0 G/DL) 8.2 L Hct (37 - 47 %) 25.3 L MCV (81.0 - 99.0 FL) 74.8 L MCH (27.0 - 31.0 PG) 24.1 L RDW (11.5 - 14.5 %) 21.3 H Plt Count (130 - 400 /CUMM) 212 MPV (7.4 - 10.4 FL) 8.9 Gran % (42.2 - 75.2 %) 66.9 Lymphocytes % (20.5 - 51.1 %) 19.6 L Monocytes % (1.7 - 9.3 %) 6.0 Eosinophils % (0 - 5 %) 7.1 H Basophils % (0.0 - 2.0 %) 0.4 Absolute Granulocytes (1.4 - 6.5 /CUMM) 4.3 Absolute Lymphocytes (1.2 - 3.4 /CUMM) 1.3 Absolute Monocytes (0.10 - 0.60 /CUMM) 0.4 Absolute Eosinophils (0.0 - 0.7 /CUMM) 0.5 Absolute Basophils (0.0 - 0.2 /CUMM) 0 PUBS MCHC (33.0 - 37.0 G/DL) 32.2 L Last 24 Hours of Haris Results: Blood cultures May 08 positive for Staph aureus sensitive to Oxacillin Blood cultures May 09 positive for Staph aureus, with coag-negative Staph also isolated from one of the bottles Blood cultures May 10 1 (labeled venous) positive for coag-negative Staph Blood culture 1 (labeled line) May 12 negative so far Assessment/Plan Impression: Recurrent Methicillin sensitive Staph aureus sepsis despite treatment with Oxacillin now Day 29 for MSSA sepsis identified on her recent admission, which was presumed secondary to the abscess on her right upper back, which has resolved. Her workup to date has not revealed any new focus of infection, with the white blood cell scan only revealing uptake in the lungs, which is felt to be a nonspecific finding and which does not correlate with any clinical findings. She continues to complain of right hip pain, but, with no uptake on the white blood cell scan, and with just a minimal right hip effusion, doubt this is the source of infection and suspect that her pain is secondary to the recent fracture. Her MONICA was negative, making endocarditis unlikely. At this point it appears that the Pro-Line catheter is her most likely source and, therefore, feel that it should be removed. She does have peripheral access currently, but if she loses this access, options would include placement of a short-term central venous catheter or leaving her with no IV access and giving her medications orally, subcutaneously or intramuscularly temporarily. Ultimately she will require placement of another tunneled catheter, but this would be done only after her blood cultures are clearly negative. Of interest her most recent positive blood culture is positive for coag-negative Staph, and this may represent a contaminant. Suggestion: 1. Would remove the Pro-Line catheter and send the tip for culture 2. Orthopedic follow-up regarding her pelvic fracture 3. Continue Oxacillin, but if she is left with no IV access, would begin Ceftriaxone 1 g IM every 24 hours
--- NOTE | 2016-05-13 12:36 | INTERVENTIONAL RADIOLOGY RPT ---
EXAMINATION: FL GUIDED LEFT INTERNAL JUGULAR VEIN TUNNELED PROLINE CATHETER REMOVAL INTERVENTIONAL RADIOLOGIST: Joseph Monreal CLINICAL HISTORY: 40-year-old female with question of infected left IJ tunneled proline catheter. COMPARISON: None TECHNIQUE: Informed consent was obtained from the patient prior to the procedure. During this process, the procedure and potential alternatives were explained along with the intended outcome and benefits. The risks of the procedure, including the possibility of an unsuccessful procedure, as well as the risk of not doing the procedure were discussed. The patient was given the opportunity to ask questions regarding the procedure and appeared competent to make medical decisions. A signed consent form which documents this discussion was placed in the medical record. A timeout procedure was performed. Following informed consent the procedure was performed portably in the patient's room. Intravenous conscious sedation was not utilized. Fluoroscopic guidance was not utilized. The left neck and chest were prepped and draped in usual sterile fashion. The retention sutures on the patient's catheter were cut and removed. Using gentle traction to break up the adhesions between the cuff and the subcutaneous tissues, the catheter was removed from the tunnel in total. The tip of the catheter was sent for culture and sensitivity. Good hemostasis was achieved. Sterile dressing was placed on the wound site. The patient tolerated the procedure well. IMPRESSION: Successful removal of tunneled proline catheter. The tip was sent for culture and sensitivity.
[2016-05-13 14:18] VITALS: BP 160/90
--- NOTE | 2016-05-13 15:25 | PN- Psychiatry ---
Assessment/Plan Impression: 40-year-old single female well known to this service presents to [facility] emergency department on May 06 with severe right hip pain. She was hyperglycemic and hypotensive on admission was transferred to critical care unit now on 2NA being treated for bacteremia. Attempted to interview patient in bed and she declines psychiatric evaluation at this time due to pain and fatigue. She is open to responding to a few questions , denies SI/HI/AVH and contracts for safety the hospital. She denies any symptoms of opiate withdrawal, stating that her Dilaudid is keeping symptoms at bay. Does however report continued high anxiety. She reports IV Ativan has worked well for her in the past, educated on risks of combining benzodiazepine medication with opiates. States clonidine and Atarax have been ineffective, states Neurontin has been ineffective in the past. Verbalizes understanding that Seroquel and other SGAs like it would potentially contribute to further poor glycemic control. Mental Status Exam Orientation/Presentation: Alert, grossly oriented, hospital garb Mood: "I'm tired," somewhat irritable related to being woken by a student. Affect: Somewhat constricted Sadness: Tearful, does not explicitly endorse depression Anxiety: Endorses high anxiety Denies SI/HI, AH/VH, PI. States and also believes they will not kill themselves. 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 Please increase hydroxyzine to 100 mg every 6 hours as needed for anxiety. 2. Continue other medications per opiate withdrawal protocol for potential breakthrough withdrawal symptoms. May consider increasing clonidine in the future. 3. Patient is open to outpatient psychiatry and regular psychotropic medication , we'll make recommendations once patient is able to engage in discussion regarding risks and benefits. Preferred agents as per previous note. Thank you for including psychiatry in this case we'll continue to follow. Yrn Morillo APRN, pager [phone] Subjective Subjective: .
--- NOTE | 2016-05-13 17:40 | Event Note ---
Event Note Event Note: I received a call back from Dr. Camp from orthopedics regarding consultation for subacute pubic rami fracture. Patient was discussed in detail and Dr. Camp reviewed her imaging from this admission and also other workup. At this point Dr. Camp is thinking patient does not need any surgical intervention and needs to be managed conservatively and he will also give Gerald Dunbar MD a call and will discuss with him as well. Attending Addendum Attending Brief Note Discussed case with Dr. Quick. Orthopaedic re-evaluation suggested by Dr. Dunbar due to continued right hip pain. Patient not re-examined as of time of this note, but additional imaging studies including a TC99M WBC study on 2015 and pelvis MRI on 05/07/2016 were reviewed. The TC99M WBC study showed increased lung activity but was negative for increased bone activity. The pelvis MRI once again showed a chronically widened pubic symphysis with old healed articular surface erosions and with probable chronic fluid like signal intensity within the joint space of the pubic symphysis and a cleft/tear within the pubic plate attachment to the right pubic bone. Some fluidlike signal intensity extends from the region of the pubic symphysis and overlies the right pubic bone. The radiologist could not determine if this this was an unremarkable fluid collection or an infected collection. MRI of the right inferior pubic ramus was suboptimally visualized due to motion artificat but bone marrow edema of the right pubic rami and mildly displaced fracture of the right infermior pubic ramus was identified. A nondisplaced fracture involving the base of the right superior pubic ramus was identified but again poorly visualized. There was some surrounding soft tissue edema, predominantly involving the adjacent obturator internus and externus muscles extending into the proximal thigh. A small nonspecific right hip joint effusion was noted and was suggested to possibly be reactive or secondary to trauma, though septic arthritis was not ruled out based upon MRI. No osseoius resorption and no evidence of periostitis observed. The cause of the patient's continued right hip girdle pain is not specific and is likely related to her healing subacture pubic rami fractures. There is no compelling evidence for anything new found on workup that would seem to correlate clearly with the patient having continued right hip pain. Unfortunately, in a patient with widespread chronic multi-focal pain, this is likely a specific area of pain for the moment and may certainly continue indefinitely. There is really nothing that I see that would warrant any orthopaedic intervention at this time. If there is concern about the small right hip joint effusion then an image guided aspiration of the hip joint could be performed by interventional radiology for fluid for microbiological analysis to definitively rule out a septic joint. If there is concern about the fluid over and about the pubic ramus as identified on MRI, I would suggest perhaps having interventional radiology perform a needle aspiration of the fluid to send to microbiology. If this in fact should field return repairer to be an infected collection, then it would seem to me that gynecology or urology would be best to debride and irrigate the tissues. If there is remote concern for infection (osteomyelitis) involving the pubic ramus then perhaps an image guided needle or core biopsy could be performed by interventional radiology. In the event that a bone infection should be found then this should be treated nonoperatively with IV antibiotics. If bone debridement should be felt to be needed then once again either gynecology or perhaps urology would need to perform an approach to the pubic ramus and if they could not scrape the bone then certainly orthopaedics could come in to the OR suite after exposure to debride bone. Again, I think this is not at all likely. I would suggest a pain management consult at some point, but this will have to be performed on an outpatient basis after the patient has been discharged from acute inpatient care. Attending MD Review Statement Attending Statement Attending MD Statement: discuss w/resident/PA/GUSSET MAKER, agreed w/resident/PA/GUSSET MAKER
[2016-05-13 23:08] VITALS: BP 168/78
--- NOTE | 2016-05-14 06:27 | PN- Housestaff ---
MARLENE FARFAN,MICHEL 05/14/16626: Subjective Follow-up For: Bacteremia Right hip pain Subjective: Patient seen and examined this morning. Patient is sitting on the chair today with no new complaints. She is still complaining of severe right hip pain. Pro- line has been removed finally with an establishment of a new peripheral line access. Currently HDS, alert, awake and oriented x 3. Denies any chest pain, palpitations, short of breath, fever, chills, nausea, vomiting, abdominal pain, diarrhea. Review of Systems Constitutional: Reports: see HPI. Objective Last 24 Hrs of Vital Signs/I&O Vital Signs Date Time Temp Pulse Resp B/P Pulse O2 O2 Flow FiO2 Ox Delivery Rate 05/14 0631 97.5 77 20 120/60 94 Room Air 05/14 0506 79 168/68 05/13 2308 98.1 99 18 168/78 96 Room Air 05/13 2136 99 160/90 05/13 1418 98.0 99 18 160/90 96 Room Air Intake & Output 05/14 1600 05/14 0800 05/14 0000 Intake Total 800 800 Output Total 600 1101 Balance 200 -301 Intake, Oral 800 800 Output, Stool 1 Output, Urine 600 1100 Physical Exam General Appearance: Alert, Oriented X3, Cooperative, Mild Distress Other Physical Findings: HEENT: Mucous Membr. moist/pink Cardiovascular: Regular Rate, Normal S1, Normal S2, No Murmurs, Gallops, Rubs Pulmonary: CTA, no crackles/rales/rhonchi Abdomen: Normal Bowel Sounds, Soft, Mild Diffuse Tenderness to Palpation, Percutaneous Biliary Catheter with no leakage or signs of infection MSK: severe pain in the right hip Extremities: No Clubbing, No Cyanosis, No Edema Current Medications: Current Medications Sig/Shahla Start time Last Medication Dose Route Stop Time Status Admin Acetaminophen 1,000 MG Q6P PRN 05/06 0600 AC IV Acetaminophen 650 MG Q6P PRN 05/06 0015 AC 05/06 PO 1534 Albuterol Sulfate 2 PUF Q4-6 PRN PRN 05/06 0100 AC INH Baclofen 10 MG Q6P PRN 05/08 2030 AC 05/13 PO 0859 Ceftriaxone Sodium 1,000 MG DAILY 05/13 1536 DC 05/13 IM 1734 Clonidine 0.1 MG Q8 05/08 2200 AC 05/14 PO 0506 Dicyclomine HCl 20 MG 4 TIMES/DAY PRN 05/08 2030 AC PO Heparin Sodium 5,000 UNIT Q8 05/06 0600 AC 05/13 (Porcine) SC 1301 Hydromorphone HCl 2 MG Q3P PRN 05/14 0215 AC 05/14 IV 1128 Hydromorphone HCl 2 MG Q3P PRN 05/13 1630 DC 05/13 SC 2208 Hydromorphone HCl 2 MG ONCE PRN 05/13 1615 DC 05/13 SC 1616 Hydromorphone HCl 2 MG ONCE PRN 05/09 1430 DC 05/09 IV 1701 Hydromorphone HCl 2 MG Q3P PRN 05/07 1045 DC 05/13 IV 1301 Hydroxyzine HCl 100 MG Q6-PRN PRN 05/13 1545 AC PO Hydroxyzine HCl 50 MG Q6-PRN PRN 05/08 2030 DC 05/13 PO 0859 Influenza Virus 0.5 ML ONCE ONE 05/06 1945 DC Vaccine IM 05/13 2359 Insulin Aspart 0 TIDAC 05/09 1700 AC 05/14 SC 1141 Insulin Detemir 50 UNITS BID 05/06 1000 05/14 SC 0806 Magnesium Chloride 64 MG ONCE ONE 05/14 0915 DC 05/14 PO 05/14 0916 1127 Oxacillin Sodium 2,000 MG Q4H 05/14 0800 AC 05/14 Sodium Chloride 100 ML IV 1127 Oxacillin Sodium 2,000 MG Q4H 05/14 0230 DC Sodium Chloride 100 ML IV Oxacillin Sodium 2,000 MG Q4H 05/10 0200 DC 05/13 Sodium Chloride 100 ML IV 1301 Oxycodone HCl 10 MG Q8P PRN 05/06 1130 05/14 PO 0631 Patient Medication 1 ED .STK-MED ONE 05/13 1427 DC Teaching ED 05/13 1428 Pregabalin 150 MG BID 05/06 0046 AC 05/14 PO 0806 Last 24 Hrs of Lab/Haris Results Last 24 Hrs of Labs/Mics: Laboratory Tests 05/14/16 0700: Anion Gap 9, Estimated GFR > 60, BUN/Creatinine Ratio 25.0, CBC w Diff NO MAN DIFF REQ, RBC 3.45 L, MCV 74.2 L, MCH 23.7 L, RDW 20.8 H, MPV 8.7, Gran % 68.0, Lymphocytes % 20.5, Monocytes % 5.8, Eosinophils % 5.2 H, Basophils % 0.5 , Absolute Granulocytes 4.7, Absolute Lymphocytes 1.4, Absolute Monocytes 0.4, Absolute Eosinophils 0.4, Absolute Basophils 0, PUBS MCHC 31.9 L Microbiology 05/13 1720 BLOOD: Blood Culture - RES 05/13 1553 BLOOD: Blood Culture - RES 05/13 1451 URINE ROUT: Urine Culture - CAN Cancelled: NO SAMPLE COLLECTED FOR [facility] DE[facility]\ Assessment/Plan Assessment: Ms. Urias is 40-year-old female with a past medical history of osteomyelitis of pubis, necrotizing fasciitis of the perineum, hysterectomy, colostomy reversed, left renal abscess, C. difficile colitis,anxiety, depression, chronic pain disorder,chronic back pain,chronic anemia, poorly controlled IDDM 2, DKA, recent fall with minimal displaced pelvic fracture, right shoulder cellulitis s/ p incision and drainage on oxacillin to finish a course of 4 weeks (untill May 12) discharged 04/18/16, presenting with a chief complaint of worsening right pelvic and hip pain for 2 days. # S. aureus bacteremia Patient found to be septic on admission with fever, tachycardia and first set of blood cultures growing staph aureus. Patient was placed on vancomycin in addition to oxacillin on which patient had already been for cellulitis prior the this admission. Patient went into a septic shock on 05/06 which resolved with aggressive IVF resucsitation. Initial blood cultures and a series of repeat bcx' s grew MSSA. TTE and MONICA negative for endocarditis. Blood culture from the Pro line grew GPC before the peripheral line. This raised the suspicion that the source of infection could be from the Pro-line. Blood cultures from 05/12 growing GNR. Pro-line removed on 05/13. Tip of the catheter growing GNR, GPC, and staph coag negative. - MRI pelvis (05/07): - Bone marrow edema within the pubic rami extending to the right acetabulum compatible with posttraumatic inflammatory change. Soft tissue edema surrounds the rami fractures without evidence of a focal, organized fluid collection in this region. Small right hip joint effusion nonspecific but possibly indicative of early infectious arthritis. - WBC scan (05/09): Grossly unremarkable except for moderately intense diffuse lung activity (nonspecific), possibly due to a diffuse inflammatoryprocess in the lungs * ID consulted, follow recs * Continue IV Oxacillin - if periph access cannot be established, start IM CTX 1g daily * Consider IR aspiration of joint effusion (patient currently refusing) * Follow wound care recs * Repeat blood cultures * Follow UA, Ucx # Chronic pain syndrome Patient carries a hx of chronic pain disorder. Patient does have a fracture in the right hip from a fall a month ago. Ortho saw the patient and recommended conservative management without any further interventions at that time. Ortho was contacted again on 05/13 and no interventions were recommended. * Roxicodone 10mg PO TID and Dilaudid 2mg Q3 PRN breaktrhoughs # Hyponatremia - resolved Patient presented with a sodium level of 114 (corrected Na 122), consistent with acute on chronic hyponatremia. This is most attributable to pseudohyponatremia in the setting of hyperglycemia, possibly with a component of SIADH/sepsis/poor intake. Patient is currently has no significant neurological symptoms. Serum & urine osmolality WNL. * Check BEP daily, trend Na - improving, currently stable # Poor controlled diabetes * Novolog SSI with accuchecks * Continue Levemir 50U SQ BID # Mood disorders * Psych consulted, appreciate recs * Clonidine 0.1 mg PO every 8 hours as needed, if opiate withdrawal symptoms. Hold Clonidine for blood pressure less than 90 mmHg systolic, less than 60 mmHg diastolic or pulse less than 55 BPM. * Baclofen 10 mg PO every 6 hours, as needed, for muscle cramps. * Dicyclomine (Bentyl) 20 mg PO every 6 hours, as needed, for GI cramps. * Hydroxyzine (Atarax or Vistaril) 50 mg PO every 6 hours, as needed, for anxiety and itching. # Diet regular diet # Moderate-Severe pain pathway # DVT prophylaxis heparin subcutaneous # Full code Problem List: 1. Bacteremia 2. Right hip pain 3. Cellulitis 4. Pubic ramus fracture 5. Anemia 6. Diabetes mellitus Pain Ratin Pain Location: R hip Pain Goal: Pain 4 or less Pain Plan: Dilaudid 2 mg IV PRN for severe pain (scale 7-10) Dilaudid 2 mg IV Q3H PRN for breakthrough pain Roxicodone 10 mg PO Q8H PRN for severe pain (scale 7-10) Tylenol 1 g IV Q6H PRN for moderate pain (scale 4-6) Lyrica 150 mg PO BID Tylenol 650 mg PO Q6H PRN for mild pain (scale 1-3) Tomorrow's Labs & Rationales: CBC to monitor WBC in the setting of active infection BMP and Mg to monitor lytes and kidney function in the setting of electrolyte disturbances ERIBERTO MORATAYA MD 05/14/16 1216: Attending MD Review Statement Attending Statement Attending MD Statement: examined this patient, discuss w/resident/PA/ROUSTABOUT SUPERVISOR, agreed w/resident/PA/ROUSTABOUT SUPERVISOR, reviewed EMR data (avail), discussed with nursing, discussed with case mgmt, amended to note Attending Assessment/Plan: Patient seen and examined. No issues overnight reported by nursing staff. Patient remains afebrile hemodynamically stable. Her sister reports that she ambulates freely out of bed unassisted to the bathroom. She continues to complain of abdominal pain continues to require IV analgesics essentially around -the-clock. Observed patient lying comfortably in bed and not in any acute distress. I did talk with her about transitioning to oral allergy 6. She however very adamantly refused insistent on receiving only IV appears well in the hospital and transitioned to oral medication upon discharge. I did discuss with her that one advantage of transitioning to oral medications would be to assess for what dose controls her pain. She however continued to refuse and remains insistent on only IV medications. ID and orthopedic follow-up appreciated. The impression is that her pain is not secondary to an infectious process. The orthopedic service has recommended LAUNDR[facility] OPERATOR W[facility] ROOM and urology evaluation if surgical intervention is to be pursued. However at present there does not appear to be any clear evidence for need for surgical intervention. This was discussed with the patient. Her most recent blood cultures from yesterday are negative. Blood cultures from May 12 is growing gram-negative rods. Catheter tip is growing gram- negative rods, gram-positive cocci coagulation negative. Blood from the catheter is growing GNR, likely contaminant. Recommendations: -Follow-up with the ID service regarding antibiotic recommendations on duration. -Continue present pain regimen. Transition to oral medications at the time of discharge. -Patient encouraged to continue to mobilize as tolerated. -Place on bowel regimen to prevent opioid-induced constipation.
[2016-05-14 06:31] VITALS: BP 120/60
[2016-05-14 08:15] LABS: ABSOLUTE BASOPHIL COUNT 0 /CUMM (0.0-0.2); ABSOLUTE EOSINOPHIL COUNT 0.4 /CUMM (0.0-0.7); ABSOLUTE GRANULOCYTE CT 4.7 /CUMM (1.4-6.5); ABSOLUTE LYMPH COUNT 1.4 /CUMM (1.2-3.4); ABSOLUTE MONOCYTE COUNT 0.4 /CUMM (0.10-0.60); BASOPHIL % 0.5 % (0.0-2.0); EOSINOPHIL % 5.2 % (0-5); HEMATOCRIT 25.6 % (37-47); MEAN CORPUSCULAR HGB 23.7 PG (27.0-31.0); MEAN CORPUSCULAR HGB CONC 31.9 G/DL (33.0-37.0); MEAN CORPUSCULAR VOLUME 74.2 FL (81.0-99.0); MEAN PLATELET VOLUME 8.7 FL (7.4-10.4); PLATELET COUNT 238 /CUMM (130-400); RBC DISTRIBUTION WIDTH 20.8 % (11.5-14.5); RED BLOOD CELL CT 3.45 /CUMM (4.20-5.40); WHITE BLOOD CELL COUNT 6.8 /CUMM (4.8-10.8)
--- NOTE | 2016-05-14 08:38 | NUR ---
WOUNDCARE RN (BREANA) AND THIS RN AT THE PATIENT'S BEDSIDE AT THIS TIME. OFFERED PATIENT SPECIALITY MATRESS SHE HAS BREAKDOWN TO HER COCCYX. PATIENT CRYING HYSTERICALLY AND SAYING SHE "I CAN'T MOVE IN THAT BED". CONTINUES TO CRY AND SHE SAY'S SHE DOES NOT WANT A DIFFERENT MATRESS AT THIS TIME. SHE WILL THINK ABOUT IT AND LET US KNOW IF SHE CHANGES HER MIND. WILL CONT TO OFFER PATIENT THE SPECIALTY MATRESS SHE NEEDS OFFLOADING FROM HER COCCYX. WILL CONT TO MONITOR
--- NOTE | 2016-05-14 13:41 | PN- Infect Dx ---
Subjective Subjective: Afebrile. She continues to report right hip pain but appears to be more mobile. Objective Last 24 Hrs of Vital Signs/I&O Vital Signs Date Time Temp Pulse Resp B/P Pulse O2 O2 Flow FiO2 Ox Delivery Rate 05/14 0631 97.5 77 20 120/60 94 Room Air 05/14 0506 79 168/68 05/13 2308 98.1 99 18 168/78 96 Room Air 05/13 2136 99 160/90 05/13 1418 98.0 99 18 16090 96 Room Air Intake & Output 05/14 1600 05/14 0800 05/14 0000 Intake Total 800 800 Output Total 600 1101 Balance 200 -301 Intake, Oral 800 800 Output, Stool 1 Output, Urine 600 1100 Physical Exam Other Physical Findings: She is in good spirits and appears more comfortable Exam unchanged Results Last 24 Hours of Lab Results: Laboratory Tests 05/14 0700 Chemistry Sodium (137 - 145 mmol/L) 137 Potassium (3.5 - 5.1 mmol/L) 3.8 Chloride (98 - 107 mmol/L) 99 Carbon Dioxide (22 - 30 mmol/L) 29 Anion Gap (5 - 16) 9 BUN (7 - 17 mg/dL) 15 Creatinine (0.5 - 1.0 mg/dL) 0.6 Estimated GFR (>60 ml/min) > 60 BUN/Creatinine Ratio (7 - 25 %) 25.0 Hematology CBC w Diff NO MAN DIFF REQ WBC (4.8 - 10.8 /CUMM) 6.8 RBC (4.20 - 5.40 /CUMM) 3.45 L Hgb (12.0 - 16.0 G/DL) 8.2 L Hct (37 - 47 %) 25.6 L MCV (81.0 - 99.0 FL) 74.2 L MCH (27.0 - 31.0 PG) 23.7 L RDW (11.5 - 14.5 %) 20.8 H Plt Count (130 - 400 /CUMM) 238 MPV (7.4 - 10.4 FL) 8.7 Gran % (42.2 - 75.2 %) 68.0 Lymphocytes % (20.5 - 51.1 %) 20.5 Monocytes % (1.7 - 9.3 %) 5.8 Eosinophils % (0 - 5 %) 5.2 H Basophils % (0.0 - 2.0 %) 0.5 Absolute Granulocytes (1.4 - 6.5 /CUMM) 4.7 Absolute Lymphocytes (1.2 - 3.4 /CUMM) 1.4 Absolute Monocytes (0.10 - 0.60 /CUMM) 0.4 Absolute Eosinophils (0.0 - 0.7 /CUMM) 0.4 Absolute Basophils (0.0 - 0.2 /CUMM) 0 PUBS MCHC (33.0 - 37.0 G/DL) 31.9 L Last 24 Hours of Haris Results: Blood cultures 2 May 13 remain negative Proline tip culture greater than 15 colonies of Staph coag-negative and less than 15 colonies of gram-negative rods and a second gram-positive cocci Blood cultures May 12 1 bottle (drawn from the line) positive for probable Klebsiella Assessment/Plan Impression: Appears improved with less discomfort, with repeat blood cultures from yesterday so far negative and with temperatures and white blood cell count remaining normal on Oxacillin now Day 30 of treatment for MSSA sepsis, initially diagnosed on her previous admission, felt to be secondary to the right upper back abscess, with recurrent MSSA sepsis developing while on treatment with Oxacillin. The most like source of her sepsis appears to be the Pro-Line catheter, which was removed yesterday, with the tip positive for greater than 15 colonies of coag- negative Staph, with gram-negative rods and a second gram-positive cocci also isolated, though in lower colony counts. She does have peripheral access currently, but she did receive a dose of Ceftriaxone IM yesterday prior to its establishment and, if she again loses peripheral IV access, options would include placement of a short-term central venous catheter or leaving her with no IV access and giving all of her medications orally, subcutaneously or intramuscularly temporarily. Ultimately she will require placement of another tunneled catheter, but this can be done only after her blood cultures are clearly negative. Suggestion: 1. Continue Oxacillin, but if she is left with no IV access, would again give Ceftriaxone 1 g IM every 24 hours until or unless IV access can be established.
[2016-05-14 14:10] VITALS: BP 120/70
--- NOTE | 2016-05-14 15:47 | NUR ---
WOUND CARE: PT EVALUATED THIS AM 730 WITH (2) STAFF NURSES PRESENT AT BEDSIDE - PT PRESENTS WITH A 4X2 UNSTAGEABLE PRESSURE INJURY TO THE COCCYX 100% MOIST YELLOW SLOUGH WITH PERIWOUND EDGE LIGHT PURPLE DISCOLORED HUE - SCANT DRNG - PT RESISTIVE TO REPOSITIONING AND ASSESSMENTN INITIALLY CRYING STATING "IT HURTS, I CANT MOVE" - PT EDUCATED RE: NECESSITY FOR REPOSITIONING TO PREVENT DETERIORATION AND NEED FOR GROUP 2 APM - PT REFUSED ALL INTERVENTIONS TO PREVENT DETERIORATION AND PROMOTE HEALING - DR TESFAYE MADE AWARE - WILL CONT TO MONITOR AND EDUCATE RECOMMENDATION: SIZE HARRIS MATTRESS - APPLY DUODERM CGF Q 3 DAYS AND PRN - ENCOURAGE SIDELYING POSITION WIB
[2016-05-14 22:51] VITALS: BP 132/64
[2016-05-15 06:27] VITALS: BP 116/60
--- NOTE | 2016-05-15 06:33 | PN- Housestaff ---
MARLENE FARFAN,MICHEL 05/15/16 0632: Subjective Follow-up For: Bacteremia Right hip pain Subjective: Patient seen and examined this morning. Patient continues to feel better today. Still complaining of right hip pain but also that is improving. Complaining of mild soreness in the arm from pulling the muscle. Currently HDS, alert, awake and oriented x 3. Bcx from 05/13 negative. Denies any chest pain, palpitations, short of breath, fever, chills, nausea, vomiting, abdominal pain, diarrhea. Eating well without constipation. Review of Systems Constitutional: Reports: see HPI. Objective Last 24 Hrs of Vital Signs/I&O Vital Signs Date Time Temp Pulse Resp B/P Pulse O2 O2 Flow FiO2 Ox Delivery Rate 05/15 06 98.1 88 20 116/60 93 Room Air 05/15 0500 74 138/64 05/14 2251 98.2 89 20 132/64 96 Room Air 05/14 2158 80 120/72 05/14 1426 118/68 05/14 1410 97.2 77 20 120/70 98 Intake & Output 05/15 1600 05/15 0800 05/15 0000 Intake Total 1100 510 Output Total 800 826 Balance 300 -316 Intake, IV 300 150 Intake, Oral 800 360 Number 3 1 Bowel Movements Output, Stool 1 Output, Urine 800 825 Physical Exam General Appearance: Alert, Oriented X3, Cooperative, No Acute Distress Other Physical Findings: Skin cellulitis healing well on the right shoulder with no oozing or drainage HEENT: Mucous Membr. moist/pink Cardiovascular: Regular Rate, Normal S1, Normal S2, No Murmurs, Gallops, Rubs Pulmonary: CTA, no crackles/rales/rhonchi Abdomen: Normal Bowel Sounds, Soft, Mild Diffuse Tenderness to Palpation, Percutaneous Biliary Catheter with no leakage or signs of infection MSK: severe pain in the right hip Extremities: No Clubbing, No Cyanosis, No Edema Current Medications: Current Medications Sig/Shahla Start time Last Medication Dose Route Stop Time Status Admin Acetaminophen 1,000 MG Q6P PRN 05/06 0600 AC IV Acetaminophen 650 MG Q6P PRN 05/06 0015 AC 05/06 PO 1534 Albuterol Sulfate 2 PUF Q4-6 PRN PRN 05/06 0100 AC INH Baclofen 10 MG Q6P PRN 05/08 2030 AC 05/13 PO 0859 Clonidine 0.1 MG Q8 05/08 2200 AC 05/15 PO 0500 Dicyclomine HCl 20 MG 4 TIMES/DAY PRN 05/08 2030 AC PO Heparin Sodium 5,000 UNIT Q8 05/06 0600 AC 05/14 (Porcine) SC 2158 Hydromorphone HCl 2 MG Q3P PRN 05/14 0215 AC 05/15 IV 0807 Hydroxyzine HCl 100 MG Q6-PRN PRN 05/13 1545 AC 05/14 PO 2231 Insulin Aspart 0 TIDAC 05/09 1700 AC 05/15 SC 0807 Insulin Detemir 50 UNITS BID 05/06 1000 AC 05/15 SC 0930 Oxacillin Sodium 2,000 MG Q4H 05/14 0800 AC 05/15 Sodium Chloride 100 ML IV 0807 Oxycodone HCl 10 MG Q8P PRN 05/06 1130 AC 05/15 PO 0315 Pregabalin 150 MG BID 05/06 0046 AC 05/15 PO 0931 Last 24 Hrs of Lab/Haris Results Last 24 Hrs of Labs/Mics: Laboratory Tests 05/15/16 0710: CBC w Diff NO MAN DIFF REQ, RBC 3.28 L, MCV 74.3 L, MCH 23.1 L, RDW 20.7 H, MPV 8.4, Gran % 58.1, Lymphocytes % 26.5, Monocytes % 7.8, Eosinophils % 7.0 H, Basophils % 0.6, Absolute Granulocytes 3.1, Absolute Lymphocytes 1.4, Absolute Monocytes 0.4, Absolute Eosinophils 0.4, Absolute Basophils 0, PUBS MCHC 31.1 L Assessment/Plan Assessment: Ms. Urias is 40-year-old female with a past medical history of osteomyelitis of pubis, necrotizing fasciitis of the perineum, hysterectomy, colostomy reversed, left renal abscess, C. difficile colitis,anxiety, depression, chronic pain disorder,chronic back pain,chronic anemia, poorly controlled IDDM 2, DKA, recent fall with minimal displaced pelvic fracture, right shoulder cellulitis s/ p incision and drainage on oxacillin to finish a course of 4 weeks (untill May 12) discharged 04/18/16, presenting with a chief complaint of worsening right pelvic and hip pain for 2 days. # S. aureus bacteremia Patient found to be septic on admission with fever, tachycardia and first set of blood cultures growing staph aureus. Patient was placed on vancomycin in addition to oxacillin on which patient had already been for cellulitis prior the this admission. Patient went into a septic shock on 05/06 which resolved with aggressive IVF resucsitation. Initial blood cultures and a series of repeat bcx' s grew MSSA. TTE and MONICA negative for endocarditis. Blood culture from the Pro line grew GPC before the peripheral line. This raised the suspicion that the source of infection could be from the Pro-line. Blood cultures from 05/12 growing GNR. Pro-line removed on 05/13. Tip of the catheter growing GNR, GPC, and staph coag negative. Repeat blood cultures from 05/13 NGTD - MRI pelvis (05/07): - Bone marrow edema within the pubic rami extending to the right acetabulum compatible with posttraumatic inflammatory change. Soft tissue edema surrounds the rami fractures without evidence of a focal, organized fluid collection in this region. Small right hip joint effusion nonspecific but possibly indicative of early infectious arthritis. - WBC scan (05/09): Grossly unremarkable except for moderately intense diffuse lung activity (nonspecific), possibly due to a diffuse inflammatoryprocess in the lungs * ID consulted, follow recs * Continue IV Oxacillin - if periph access cannot be established, start IM CTX 1g daily * Consider IR aspiration of joint effusion (patient currently refusing) * Follow wound care recs * Repeat blood culture next Thursday * Pro-line placement by IR tentatively planned for next Thursday # Chronic pain syndrome Patient carries a hx of chronic pain disorder. Patient does have a fracture in the right hip from a fall a month ago. Ortho saw the patient and recommended conservative management without any further interventions at that time. Ortho was contacted again on 05/13 and no interventions were recommended. * Roxicodone 10mg PO TID and Dilaudid 2mg Q3 PRN breaktrhoughs # Hyponatremia - resolved Patient presented with a sodium level of 114 (corrected Na 122), consistent with acute on chronic hyponatremia. This is most attributable to pseudohyponatremia in the setting of hyperglycemia, possibly with a component of SIADH/sepsis/poor intake. Patient is currently has no significant neurological symptoms. Serum & urine osmolality WNL. # Poor controlled diabetes * Novolog SSI with accuchecks * Continue Levemir 50U SQ BID # Mood disorders * Psych consulted, appreciate recs * Clonidine 0.1 mg PO Q8P, if opiate withdrawal symptoms. Hold Clonidine for blood pressure less than 90 mmHg systolic, less than 60 mmHg diastolic or pulse less than 55 BPM. * Baclofen 10 mg PO every 6 hours, as needed, for muscle cramps. * Dicyclomine 20 mg PO every 6 hours, as needed, for GI cramps. * Hydroxyzine 100 mg PO every 6 hours, as needed, for anxiety and itching. # Diet regular diet # Moderate-Severe pain pathway # DVT prophylaxis heparin subcutaneous # Full code Problem List: 1. Diabetes mellitus 2. Bacteremia 3. Right hip pain Pain Ratin Pain Location: Right hip Pain Goal: Pain 4 or less Pain Plan: Dilaudid 2 mg IV PRN for severe pain (scale 7-10) Dilaudid 2 mg IV Q3H PRN for breakthrough pain Roxicodone 10 mg PO Q8H PRN for severe pain (scale 7-10) Tylenol 1 g IV Q6H PRN for moderate pain (scale 4-6) Lyrica 150 mg PO BID Tylenol 650 mg PO Q6H PRN for mild pain (scale 1-3) Tomorrow's Labs & Rationales: CBC to monitor WBC in the setting of active infection BMP to monitor lytes and kidney function in the setting of electrolyte disturbances ERIBERTO MORATAYA MD 05/15/16 1248: Attending MD Review Statement Attending Statement Attending MD Statement: examined this patient, discuss w/resident/PA/GLASS DEPOSITION TENDER, agreed w/resident/PA/GLASS DEPOSITION TENDER, reviewed EMR data (avail), discussed with nursing, discussed with case mgmt, amended to note Attending Assessment/Plan: Patient seen and examined. Resting comfortably not in any acute distress. She is quite please with her current pain regimen. She does no want any change in her current pain management until she is ready for discharge. She has been afebrile and hemodynamically stable. Repeat blood cultures are currently negative. We'll follow-up with the ID service. Her right shoulder wound has improved remarkably compared to its appearance on admission. The base is very clean. There is no surrounding erythema. There is no discharge or foul smell. If she remains afebrile and cultures are negative, Will plan for placement of a new PICC line probably tomorrow and to discharging patient on long-term antibiotic therapy.
[2016-05-15 08:06] LABS: ABSOLUTE BASOPHIL COUNT 0 /CUMM (0.0-0.2); ABSOLUTE EOSINOPHIL COUNT 0.4 /CUMM (0.0-0.7); ABSOLUTE GRANULOCYTE CT 3.1 /CUMM (1.4-6.5); ABSOLUTE LYMPH COUNT 1.4 /CUMM (1.2-3.4); ABSOLUTE MONOCYTE COUNT 0.4 /CUMM (0.10-0.60); BASOPHIL % 0.6 % (0.0-2.0); GRANULOCYTE % 58.1 % (42.2-75.2); HEMATOCRIT 24.3 % (37-47); MEAN CORPUSCULAR HGB 23.1 PG (27.0-31.0); MEAN CORPUSCULAR HGB CONC 31.1 G/DL (33.0-37.0); MEAN CORPUSCULAR VOLUME 74.3 FL (81.0-99.0); MEAN PLATELET VOLUME 8.4 FL (7.4-10.4); PLATELET COUNT 243 /CUMM (130-400); RBC DISTRIBUTION WIDTH 20.7 % (11.5-14.5); RED BLOOD CELL CT 3.28 /CUMM (4.20-5.40); WHITE BLOOD CELL COUNT 5.4 /CUMM (4.8-10.8)
--- NOTE | 2016-05-15 08:53 | PN- Wound Care ---
Subjective Subjective: Patient feels well she has no local tenderness over the right shoulder ulcer Objective Vital Signs and I&Os Vital Signs Result Date Time Pulse Ox 93 05/15 627 B/P 116/60 05/15 627 O2 Delivery Room Air 05/15 627 Temp 98.1 05/15 627 Pulse 88 05/15 627 Resp 20 05/15 627 O2 Flow Rate 2.0L 05/09 0000 Intake & Output 05/15 0000 05/14 1600 05/14 0800 Intake Total 510 1900 800 Output Total 826 450 600 Balance -316 1450 200 Intake, IV 150 Intake, Oral 360 1900 800 Number 1 1 Bowel Movements Output, Stool 1 Output, Urine 825 450 600 Exam of the right shoulder ulcers shows it to have 100% granulation tissue there is evidence of new skin growth emanating from the edges the wound is smaller clean without erythema or induration Impression/Plan Impression/Plan Impression/Plan: 40-year-old woman with diabetes multiple medical problems with recurrent staph bacteremia. The right shoulder ulcer is healing well with minimal drainage and no evidence of local infection. Continue daily cleansing and Aquacel Ag wound care dressings
--- NOTE | 2016-05-15 12:37 | PN- Infect Dx ---
Subjective Subjective: Afebrile without new complaints. Objective Last 24 Hrs of Vital Signs/I&O Vital Signs Date Time Temp Pulse Resp B/P Pulse O2 O2 Flow FiO2 Ox Delivery Rate 05/15 0627 98.1 88 20 116/60 93 Room Air 05/15 0500 74 138/64 05/14 2251 98.2 89 20 132/64 96 Room Air 05/14 2158 80 120/72 05/14 1426 118/68 05/14 1410 97.2 77 20 120/70 98 Intake & Output 05/15 1600 05/15 0800 05/15 0000 Intake Total 1100 510 Output Total 1000 826 Balance 100 -316 Intake, IV 300 150 Intake, Oral 800 360 Number 4 1 Bowel Movements Output, Stool 1 Output, Urine 1000 825 Physical Exam Other Physical Findings: She appears comfortable in no acute distress Lungs are clear Heart regular rhythm with no murmur Extremities right hip tender on movement Results Last 24 Hours of Lab Results: Laboratory Tests 05/15 0710 Hematology CBC w Diff NO MAN DIFF REQ WBC (4.8 - 10.8 /CUMM) 5.4 RBC (4.20 - 5.40 /CUMM) 3.28 L Hgb (12.0 - 16.0 G/DL) 7.6 L Hct (37 - 47 %) 24.3 L MCV (81.0 - 99.0 FL) 74.3 L MCH (27.0 - 31.0 PG) 23.1 L RDW (11.5 - 14.5 %) 20.7 H Plt Count (130 - 400 /CUMM) 243 MPV (7.4 - 10.4 FL) 8.4 Gran % (42.2 - 75.2 %) 58.1 Lymphocytes % (20.5 - 51.1 %) 26.5 Monocytes % (1.7 - 9.3 %) 7.8 Eosinophils % (0 - 5 %) 7.0 H Basophils % (0.0 - 2.0 %) 0.6 Absolute Granulocytes (1.4 - 6.5 /CUMM) 3.1 Absolute Lymphocytes (1.2 - 3.4 /CUMM) 1.4 Absolute Monocytes (0.10 - 0.60 /CUMM) 0.4 Absolute Eosinophils (0.0 - 0.7 /CUMM) 0.4 Absolute Basophils (0.0 - 0.2 /CUMM) 0 PUBS MCHC (33.0 - 37.0 G/DL) 31.1 L Last 24 Hours of Haris Results: Blood cultures 2 May 13 remain negative Pro-Line tip culture May 13 greater than 15 colonies of coag-negative Staph and less than 15 colonies of Enterobacter and Staph aureus Blood culture May 12 positive for Enterobacter aerogenes Assessment/Plan Impression: Stable with her most recent blood cultures sent 2 days ago remaining negative and with temperatures and white blood cell count remaining normal on Oxacillin now Day 31 of treatment for recurrent MSSA sepsis despite treatment with Oxacillin. The most like source of her sepsis appears to be the Pro-Line catheter, which was removed 2 days ago, and her most recent blood cultures remain negative. She will require another Pro-Line as she will require a four- week course of IV antibiotics from the date of her negative blood cultures, but would prefer that this be delayed until it is clear that her bacteremia has cleared. She does have peripheral access currently, but if she loses this, options would include placement of a short-term central venous catheter or leaving her with no IV access and giving all of her medications orally, subcutaneously or intramuscularly temporarily. The positive blood culture for Enterobacter is of unclear significance as it was drawn from the line and suspect that it represents contamination, particularly as the repeat blood cultures from May 13 remain negative. Likewise the previous positive blood culture for coag-negative Staph also likely represents a contaminant. Suggestion: 1. Repeat blood cultures 2 today 2. Would prefer to defer on placement of a new Pro-Line for several more days 3. Continue Oxacillin, but if she is left with no IV access, would give Ceftriaxone 1 gram IM every 24 hours until or unless IV access can be established.
[2016-05-15 13:31] VITALS: BP 122/70
--- NOTE | 2016-05-15 14:43 | NUR ---
10:00- DUODERM APPLIED TO COCCYX. EDUCATED PT ON NEED FOR SIZEWISE MATTRESS AND FREQUENT REPOSITIONING. PT REFUSES SIZEWISE MATTRESS, STATING IT IS TOO HARD FOR HER TO MOVE ON THAT TYPE OF MATTRESS. SIDELYING POSITION ENCOURAGED WHILE IN BED, HOWEVER PT STATES THAT IT IS NOT COMFORTABLE FOR HER.
[2016-05-15 22:40] VITALS: BP 130/80
--- NOTE | 2016-05-16 06:21 | PN- Housestaff ---
MARLENE FARFAN,MICHEL 05/16/16 0621: Subjective Follow-up For: Bacteremia Right hip pain Subjective: Patient seen and examined this morning. Patient reports feeling well. Right hip pain well-controlled with Dilaudid. Complains of worsening soreness in the left arm from, however. Agreeable to trying a lidocane patch. Remains afebrile and HDS, alert, awake and oriented x 3. Bcx from 05/13 still negative. Denies any chest pain, palpitations, short of breath, fever, chills, nausea, vomiting, abdominal pain, diarrhea. Eating well without constipation. Review of Systems Constitutional: Reports: see HPI. Objective Last 24 Hrs of Vital Signs/I&O Vital Signs Date Time Temp Pulse Resp B/P Pulse O2 O2 Flow FiO2 Ox Delivery Rate 05/16 1456 130/80 05/16 1450 98.1 90 18 128/68 98 05/16 0630 97.9 83 20 120/70 97 Room Air 05/16 0622 120/70 05/15 2240 97.6 104 20 130/80 95 Room Air 05/15 2041 130/70 Intake & Output 05/16 1600 05/16 0800 05/16 0000 Intake Total 1120 440 240 Output Total 800 951 600 Balance 320 -511 -360 Intake, IV 400 200 Intake, Oral 720 240 240 Number 3 1 Bowel Movements Output, Stool 1 Output, Urine 800 950 600 Physical Exam General Appearance: Alert, Oriented X3, Cooperative, No Acute Distress Other Physical Findings: Skin cellulitis healing well on the right shoulder with no oozing or drainage, no signs of infection around the previous Pro-line insertion site - mild serous drainage but intact without erythema/tenderness. 4 x 2 unstageable pressure ulcer in the coccyx - moist yellow slough with periwound edge light purple discolored hue and scant drainage. HEENT: Mucous Membr. moist/pink Cardiovascular: Regular Rate, Normal S1, Normal S2, No Murmurs, Gallops, Rubs Pulmonary: CTA, no crackles/rales/rhonchi Abdomen: Normal Bowel Sounds, Soft, Mild Diffuse Tenderness to Palpation, Percutaneous Biliary Catheter with no leakage or signs of infection MSK: severe pain in the right hip Extremities: No Clubbing, No Cyanosis, No Edema Current Medications: Current Medications Sig/Shahla Start time Last Medication Dose Route Stop Time Status Admin Acetaminophen 1,000 MG Q6P PRN 05/06 06 AC IV Acetaminophen 650 MG Q6P PRN 05/06 0015 AC 05/06 PO 1534 Albuterol Sulfate 2 PUF Q4-6 PRN PRN 05/06 0100 AC INH Baclofen 10 MG Q6P PRN 05/08 2030 AC 05/13 PO 0859 Clonidine 0.1 MG Q8 05/08 2200 AC 05/16 PO 1456 Dicyclomine HCl 20 MG 4 TIMES/DAY PRN 05/08 2030 AC PO Diphenhydramine HCl 25 MG ONCE ONE 05/16 630 DC 05/16 IV 05/16 0631 0633 Heparin Sodium 5,000 UNIT Q8 05/06 06 AC 05/16 (Porcine) SC 1455 Hydromorphone HCl 2 MG Q3P PRN 05/14 0215 AC 05/16 IV 1910 Hydroxyzine HCl 100 MG Q6-PRN PRN 05/13 1545 AC 05/14 PO 2231 Insulin Aspart 0 TIDAC 05/09 1700 AC 05/16 SC 1710 Insulin Detemir 50 UNITS BID 05/06 1000 AC 05/16 SC 0941 Lidocaine 1 PAT ONCE ONE 05/16 09 DC 05/16 EXT 05/16 0901 1131 Oxacillin Sodium 2,000 MG Q4H 05/14 08 AC 05/16 Sodium Chloride 100 ML IV 1601 Oxycodone HCl 10 MG Q8P PRN 05/06 1130 AC 05/15 PO 2150 Pantoprazole Sodium 40 MG ONCE ONE 05/16 1600 CAN IV 05/16 1601 Pregabalin 150 MG BID 05/06 0046 AC 05/16 PO 0942 Last 24 Hrs of Lab/Haris Results Last 24 Hrs of Labs/Mics: Laboratory Tests 05/16/16 0625: PT 10.6, INR 1.01, APTT 30, CBC w Diff NO MAN DIFF REQ, RBC 3.32 L, MCV 74.4 L , MCH 23.5 L, RDW 20.7 H, MPV 8.2, Gran % 59.5, Lymphocytes % 24.7, Monocytes % 6.5, Eosinophils % 8.6 H, Basophils % 0.7, Absolute Granulocytes 3.3, Absolute Lymphocytes 1.4, Absolute Monocytes 0.4, Absolute Eosinophils 0.5, Absolute Basophils 0, PUBS MCHC 31.6 L Assessment/Plan Assessment: Ms. Urias is 40-year-old female with a past medical history of osteomyelitis of pubis, necrotizing fasciitis of the perineum, hysterectomy, colostomy reversed, left renal abscess, C. difficile colitis,anxiety, depression, chronic pain disorder,chronic back pain,chronic anemia, poorly controlled IDDM 2, DKA, recent fall with minimal displaced pelvic fracture, right shoulder cellulitis s/ p incision and drainage on oxacillin to finish a course of 4 weeks (untilMay 12) discharged 04/18/16, presenting with a chief complaint of worsening right pelvic and hip pain for 2 days. # S. aureus bacteremia Patient found to be septic on admission with fever, tachycardia and first set of blood cultures growing staph aureus. Patient was placed on vancomycin in addition to oxacillin on which patient had already been for cellulitis prior the this admission. Patient went into a septic shock on 05/06 which resolved with aggressive IVF resucsitation. Initial blood cultures and a series of repeat bcx' s grew MSSA. TTE and MONICA negative for endocarditis. Blood culture from the Pro line grew GPC before the peripheral line. This raised the suspicion that the source of infection could be from the Pro-line. Blood cultures from 05/12 growing GNR. Pro-line removed on 05/13. Tip of the catheter growing GNR, GPC, and staph coag negative. Repeat blood cultures from 05/13 and 05/15 NGTD - MRI pelvis (05/07): - Bone marrow edema within the pubic rami extending to the right acetabulum compatible with posttraumatic inflammatory change. Soft tissue edema surrounds the rami fractures without evidence of a focal, organized fluid collection in this region. Small right hip joint effusion nonspecific but possibly indicative of early infectious arthritis. - WBC scan (05/09): Grossly unremarkable except for moderately intense diffuse lung activity (nonspecific), possibly due to a diffuse inflammatoryprocess in the lungs * ID consulted, follow recs * Continue IV Oxacillin - if periph access cannot be established, start IM CTX 1g daily * Consider IR aspiration of joint effusion (patient currently refusing) * Follow wound care recs * Pro-line placement by IR tentatively planned for next week # Chronic pain syndrome Patient carries a hx of chronic pain disorder. Patient does have a fracture in the right hip from a fall a month ago. Ortho saw the patient and recommended conservative management without any further interventions at that time. Ortho was contacted again on 05/13 and no interventions were recommended. * Roxicodone 10mg PO TID and Dilaudid 2mg Q3 PRN breaktrhoughs # Hyponatremia - resolved Patient presented with a sodium level of 114 (corrected Na 122), consistent with acute on chronic hyponatremia. This is most attributable to pseudohyponatremia in the setting of hyperglycemia, possibly with a component of SIADH/sepsis/poor intake. Patient is currently has no significant neurological symptoms. Serum & urine osmolality WNL. # Poor controlled diabetes * Novolog SSI with accuchecks * Continue Levemir 50U SQ BID # Mood disorders * Psych consulted, appreciate recs * Clonidine 0.1 mg PO Q8P, if opiate withdrawal symptoms. Hold Clonidine for blood pressure less than 90 mmHg systolic, less than 60 mmHg diastolic or pulse less than 55 BPM. * Baclofen 10 mg PO every 6 hours, as needed, for muscle cramps. * Dicyclomine 20 mg PO every 6 hours, as needed, for GI cramps. * Hydroxyzine 100 mg PO every 6 hours, as needed, for anxiety and itching. # Diet regular diet # Moderate-Severe pain pathway # DVT prophylaxis heparin subcutaneous # Full code Problem List: 1. Diabetes mellitus 2. Bacteremia 3. Right hip pain Pain Ratin Pain Location: R hip LUE Pain Goal: Pain 4 or less Pain Plan: Dilaudid 2 mg IV PRN for severe pain (scale 7-10) Dilaudid 2 mg IV Q3H PRN for breakthrough pain Roxicodone 10 mg PO Q8H PRN for severe pain (scale 7-10) Tylenol 1 g IV Q6H PRN for moderate pain (scale 4-6) Lyrica 150 mg PO BID Tylenol 650 mg PO Q6H PRN for mild pain (scale 1-3) Tomorrow's Labs & Rationales: CBC to monitor WBC in the setting of active infection ERIBERTO MORATAYA MD 05/16/16 1541: Attending MD Review Statement Attending Statement Attending Statement: examined this patient, discuss w/resident/PA/DOCTOR OF NAPRAPATHY, agreed w/resident/PA/DOCTOR OF NAPRAPATHY, reviewed EMR data (avail), discussed with nursing, discussed with case mgmt, amended to note Attending Assessment/Plan: Patient seen and examined. Resting comfortably. Not in any distress. No issues overnight. She remains afebrile and repeat cultures have been negative. Case discussed with ID service. We'll monitor patient over the weekend. If blood cultures remain negative we'll consider placing a central line for long- term antibiotic therapy. She is anemic likely secondary to chronic disease. No evidence of active bleeding at present. We'll repeat CBC in 48 hours. Please ensure that stool guaiac is done.
[2016-05-16 06:30] VITALS: BP 120/70
[2016-05-16 08:02] LABS: ABSOLUTE BASOPHIL COUNT 0 /CUMM (0.0-0.2); ABSOLUTE EOSINOPHIL COUNT 0.5 /CUMM (0.0-0.7); ABSOLUTE GRANULOCYTE CT 3.3 /CUMM (1.4-6.5); ABSOLUTE LYMPH COUNT 1.4 /CUMM (1.2-3.4); ABSOLUTE MONOCYTE COUNT 0.4 /CUMM (0.10-0.60); BASOPHIL % 0.7 % (0.0-2.0); EOSINOPHIL % 8.6 % (0-5); GRANULOCYTE % 59.5 % (42.2-75.2); HEMATOCRIT 24.7 % (37-47); MEAN CORPUSCULAR HGB 23.5 PG (27.0-31.0); MEAN CORPUSCULAR HGB CONC 31.6 G/DL (33.0-37.0); MEAN CORPUSCULAR VOLUME 74.4 FL (81.0-99.0); MEAN PLATELET VOLUME 8.2 FL (7.4-10.4); PLATELET COUNT 256 /CUMM (130-400); RBC DISTRIBUTION WIDTH 20.7 % (11.5-14.5); RED BLOOD CELL CT 3.32 /CUMM (4.20-5.40); WHITE BLOOD CELL COUNT 5.6 /CUMM (4.8-10.8)
[2016-05-16 08:31] LABS: PT 10.6 SEC (9.4-12.5); PTT 30 SEC (25-37)
[2016-05-16 14:50] VITALS: BP 128/68
--- NOTE | 2016-05-16 18:36 | NUR ---
11:00- PT EDUCATED ON NEED FOR SIZEWISE MATTRESS AND NEED FOR REPOSITIONING. PT REFUSED SIZEWISE MATTRESS. PT AGREED TO REPOSITION. DUODERM IN PLACE TO COCCYX.
--- NOTE | 2016-05-16 19:54 | ULTRASOUND REPORT ---
EXAMINATION: US TRIPLEX UPPER EXTREMITY, LEFT CLINICAL INFORMATION: Left upper extremity pain. COMPARISON: None available. TECHNIQUE: Color-flow triplex imaging with spectral analysis and compression Doppler were performed on the left upper extremity. FINDINGS: The visualized left internal jugular vein, subclavian vein, axillary vein, brachial vein, basilic vein, and cephalic vein exhibit normal color Doppler fill in without evidence of venous thrombosis. IMPRESSION: There is no deep venous thrombosis within the left upper extremity.
[2016-05-16 22:27] VITALS: BP 128/80
[2016-05-17 07:27] VITALS: BP 122/68
--- NOTE | 2016-05-17 09:03 | NUR ---
PATIENT REFUSED BLOOD WORK THIS AM. PT STATES TOO MUCH PAIN AND DIFFICULT STICK, NERVOUS OF MULTIPLE STICKS. PHOTO TECH RUTH HIDALGO NOTIFIED.
--- NOTE | 2016-05-17 09:11 | NUR ---
ROUGH ROUNDER AT BEDSIDE EVALUATING PT AND DISCUSSING BLOOD WORK. ENCOURAGING PT TO HAVE BLOOD WORK DRAWN TODAY IF POSSIBLE. PT AGREEABLE AND WILL LET RN KNOW WHEN ALLOWING BLOOD TO BE DRAWN. PT STATES ARMS "FEEL RAW" AND KNOWS "ALCOHOL SWABS WILL BURN ALOT". WILL MONITOR.
--- NOTE | 2016-05-17 11:22 | PN- Housestaff ---
ROCKY FARFAN,[facility] 05/17/16 1121: Subjective Follow-up For: Bacteremia Right hip pain Subjective: And seen and examined this morning. Was alert oriented. She was complaining of feeling weak. He refused labs this a.m. Stating that alcohol swabs make her itchy. Remains afebrile, Denies any chest pain, palpitations, short of breath, fever, chills, nausea, vomiting, abdominal pain, diarrhea. Review of Systems Constitutional: Reports: see HPI. Objective Last 24 Hrs of Vital Signs/I&O Vital Signs Date Time Temp Pulse Resp B/P Pulse O2 O2 Flow FiO2 Ox Delivery Rate 05/17 0727 98.0 88 18 122/68 96 Room Air 05/17 0522 88 122/68 05/17 0000 98 Room Air 05/16 2227 98.4 94 20 128/80 98 Room Air 05/16 2209 94 128/80 05/16 1456 130/80 05/16 1450 98.1 90 18 128/68 98 Intake & Output 05/17 1600 05/17 0800 05/17 0000 Intake Total 600 800 Output Total 300 Balance 300 800 Intake, IV 300 300 Intake, Oral 300 500 Number 1 1 Bowel Movements Output, Urine 300 Physical Exam General Appearance: Alert, Oriented X3 Skin: ellulitis healing well on the right shoulderwith no oozing or drainage, no signs of infection around pro line insertion site, Cardiovascular: Regular Rate, Normal S1, Normal S2, No Murmurs Lungs: Clear to Auscultation, Normal Air Movement Abdomen: Normal Bowel Sounds, Soft, No Tenderness Extremities: No Clubbing, No Cyanosis, No Edema Current Medications: Current Medications Sig/Shahla Start time Last Medication Dose Route Stop Time Status Admin Acetaminophen 1,000 MG Q6P PRN 05/06 0600 AC IV Acetaminophen 650 MG Q6P PRN 05/06 0015 AC 05/06 PO 1534 Albuterol Sulfate 2 PUF Q4-6 PRN PRN 05/06 0100 AC INH Baclofen 10 MG Q6P PRN 05/08 2030 AC 05/13 PO 0859 Clonidine 0.1 MG Q8 05/08 2200 AC 05/17 PO 0522 Dicyclomine HCl 20 MG 4 TIMES/DAY PRN 05/08 2030 AC PO Diphenhydramine HCl 25 MG ONCE PRN 05/16 2245 DC 05/17 IV 05/17 0700 0411 Heparin Sodium 5,000 UNIT Q8 05/06 0600 AC 05/17 (Porcine) SC 0522 Hydromorphone HCl 2 MG Q3P PRN 05/14 0215 AC 05/17 IV 1004 Hydroxyzine HCl 100 MG Q6-PRN PRN 05/13 1545 AC 05/14 PO 2231 Insulin Aspart 0 TIDAC 05/09 1700 AC 05/17 SC 0818 Insulin Detemir 50 UNITS BID 05/06 1000 AC 05/17 SC 1004 Oxacillin Sodium 2,000 MG Q4H 05/14 0800 AC 05/17 Sodium Chloride 100 ML IV 0819 Oxycodone HCl 10 MG Q8P PRN 05/06 1130 AC 05/16 PO 2002 Pantoprazole Sodium 40 MG ONCE ONE 05/16 1600 CAN IV 05/16 1601 Pregabalin 150 MG BID 05/06 0046 AC 05/17 PO 1004 Assessment/Plan Assessment: Ms. Urias is 40-year-old female with a past medical history of osteomyelitis of pubis, necrotizing fasciitis of the perineum, hysterectomy, colostomy reversed, left renal abscess, C. difficile colitis,anxiety, depression, chronic pain disorder,chronic back pain,chronic anemia, poorly controlled IDDM 2, DKA, recent fall with minimal displaced pelvic fracture, right shoulder cellulitis s/ p incision and drainage on oxacillin to finish a course of 4 weeks (untill May 12) discharged 04/18/16, presenting with a chief complaint of worsening right pelvic and hip pain for 2 days. # S. aureus bacteremia Patient found to be septic on admission with fever, tachycardia and first set of blood cultures growing staph aureus. Patient was placed on vancomycin in addition to oxacillin on which patient had already been for cellulitis prior the this admission. Patient went into a septic shock on 05/06 which resolved with aggressive IVF resucsitation. Initial blood cultures and a series of repeat bcx' s grew MSSA. TTE and MONICA negative for endocarditis. Blood culture from the Pro line grew GPC before the peripheral line. This raised the suspicion that the source of infection could be from the Pro-line. Blood cultures from 05/12 growing GNR. Pro-line removed on 05/13. Tip of the catheter growing GNR, GPC, and staph coag negative. Repeat blood cultures from 05/13 and 05/15 NGTD - MRI pelvis (05/07): - Bone marrow edema within the pubic rami extending to the right acetabulum compatible with posttraumatic inflammatory change. Soft tissue edema surrounds the rami fractures without evidence of a focal, organized fluid collection in this region. Small right hip joint effusion nonspecific but possibly indicative of early infectious arthritis. - WBC scan (05/09): Grossly unremarkable except for moderately intense diffuse lung activity (nonspecific), possibly due to a diffuse inflammatoryprocess in the lungs * ID consulted, follow recs * Continue IV Oxacillin - if periph access cannot be established, start IM CTX 1g daily * Consider IR aspiration of joint effusion (patient currently refusing) * Follow wound care recs * Pro-line placement by IR tentatively planned for next week # Chronic pain syndrome Patient carries a hx of chronic pain disorder. Patient does have a fracture in the right hip from a fall a month ago. Ortho saw the patient and recommended conservative management without any further interventions at that time. Ortho was contacted again on 05/13 and no interventions were recommended. * Roxicodone 10mg PO TID and Dilaudid 2mg Q3 PRN breaktrhoughs # Hyponatremia - resolved Patient presented with a sodium level of 114 (corrected Na 122), consistent with acute on chronic hyponatremia. This is most attributable to pseudohyponatremia in the setting of hyperglycemia, possibly with a component of SIADH/sepsis/poor intake. Patient is currently has no significant neurological symptoms. Serum & urine osmolality WNL. # Poor controlled diabetes * Novolog SSI with accuchecks * Continue Levemir 50U SQ BID # Mood disorders * Psych consulted, appreciate recs * Clonidine 0.1 mg PO Q8P, if opiate withdrawal symptoms. Hold Clonidine for blood pressure less than 90 mmHg systolic, less than 60 mmHg diastolic or pulse less than 55 BPM. * Baclofen 10 mg PO every 6 hours, as needed, for muscle cramps. * Dicyclomine 20 mg PO every 6 hours, as needed, for GI cramps. * Hydroxyzine 100 mg PO every 6 hours, as needed, for anxiety and itching. # Diet regular diet # Moderate-Severe pain pathway # DVT prophylaxis heparin subcutaneous # Full code Problem List: 1. Bacteremia 2. Right hip pain 3. Chronic pruritus 4. Cellulitis 5. Abscess or cellulitis of back Pain Ratin Pain Location: R hip LUE Pain Goal: Remain pain free Pain Plan: Dilaudid 2 mg IV Q3H PRN for breakthrough pain Roxicodone 10 mg PO Q8H PRN for severe pain (scale 7-10) Tylenol 1 g IV Q6H PRN for moderate pain (scale 4-6) Lyrica 150 mg PO BID Tylenol 650 mg PO Q6H PRN for mild pain (scale 1-3) Tomorrow's Labs & Rationales: CBC to monitor WBC in the setting of active infection ERIBERTO MORATAYA MD 05/17/16 1215: Attending MD Review Statement Attending Statement Attending MD Statement: examined this patient, discuss w/resident/PA/LIFE MANAGER, agreed w/resident/PA/LIFE MANAGER, reviewed EMR data (avail), discussed with nursing, discussed with case mgmt, amended to note Attending Assessment/Plan: Patient seen and examined. Lying comfortably in bed not in any acute distress when I evaluated her. No issues overnight. She remains afebrile and hemodynamically stable. Blood cultures remain negative. Right shoulder wound is healing appropriately. I did have an extensive discussion with the patient this morning about transitioning her to oral Dilaudid. Patient became very tearful stating that she has tried oral Dilaudid in the past and it doesn't provide pain relief. She reports that she also has no pain relief with oxycodone which was taken at home. I did discuss trial of oral analgesic regimen however patient continues to refuse despite extensive counseling about the side effects and potential complications of continued opioid use. Records showed that she was started on a methadone taper during a previous admission to [facility]. She does no want to undergo a methadone taper. Recommendations: -Continue current antibiotic course. -If cultures remain negative after the weekend follow-up with the ID service regarding placement of a central line for long-term antibiotic therapy. -Continue current analgesic regimen. Recommend referral to outpatient pain management program upon discharge.
[2016-05-17 14:59] VITALS: BP 120/70
--- NOTE | 2016-05-17 22:54 | NUR ---
PT REFUSED HS DOSE OF SC HEPARIN STATED "NOT TONIGHT IM TIRED OF BEING POKED" ALSO, REFUSED DAILY LABS WHEN [facility] AND THIS NURSE ASKED. "I TOLD THEM THIS MORNING NO AND I STILL DONT WANT IT, THE ALCOHOL HURTS MY SKIN AND I DONT WANT TO BE POKED AGAIN" . INTERN PRODUCT MARKETING MANAGER MADE AWARE
[2016-05-17 22:58] VITALS: BP 130/72
--- NOTE | 2016-05-18 00:59 | NUR ---
2330 REC'D PT IN THE ROOM CRYING WHILE IN BED. ASKED HER WHAT'S WRONG, PT STATED SHE FEELS VERY ANXIOUS & GETS PANIC ATTACKS. REQUESTED ATIVAN WHICH HELPS HER ANXIETY. INFORMED DR. MIKE HANSON RE. PT'S STATUS. ORDERS GIVEN. ATIVAN 0.5MG IV GIVEN SEE EMAR FOR TIMES. ON RA POX STABLE. NON LABORED BREATHING. NO C/O PAIN VOICEDWAS MEDICATED EARLIER. 0000 AFTER FEW MINUTES FELT RELAXED. PT DID NOT WANT TO SHOW THE RN/MYSELF HER BUTTOCK ONLY WHEN SHE GETS UP TO THE [facility]. CMS+VE RLE, DIMINISHED PEDAL PULSES TO R FOOT. CONT TO MONITOR.
[2016-05-18 07:35] VITALS: BP 128/70
--- NOTE | 2016-05-18 08:40 | PN- Housestaff ---
ROCKY FARFAN,[facility] 05/18/16 0840: Subjective Follow-up For: Bacteremia Right hip pain Subjective: Patient seen and examined this morning. He was lying in bed in no acute distress. Remains afebrile, Denies any chest pain, palpitations, short of breath, fever, chills, nausea, vomiting, abdominal pain, diarrhea. She will get a new Pro line on Thursday Review of Systems Constitutional: Reports: see HPI. Objective Last 24 Hrs of Vital Signs/I&O Vital Signs Date Time Temp Pulse Resp B/P Pulse O2 O2 Flow FiO2 Ox Delivery Rate 05/18 0735 98.1 70 20 128/70 95 Room Air 05/18 0508 88 136/70 05/18 0000 96 Room Air 05/17 2258 98.3 94 20 130/72 96 Room Air 05/17 1459 98.0 70 20 120/70 96 05/17 1358 85 110/78 Intake & Output 05/18 1600 05/18 0800 05/18 0000 Intake Total 370 850 Output Total 300 852 Balance 70 -2 Intake, IV 250 250 Intake, Oral 120 600 Number 0 Bowel Movements Output, Stool 2 Output, Urine 300 850 Physical Exam General Appearance: Alert, Oriented X3, Cooperative, No Acute Distress Cardiovascular: Regular Rate, Normal S1, Normal S2, No Murmurs Lungs: Clear to Auscultation, Normal Air Movement Abdomen: Normal Bowel Sounds, Soft, No Tenderness Extremities: No Clubbing, No Cyanosis, No Edema Current Medications: Current Medications Sig/Shahla Start time Last Medication Dose Route Stop Time Status Admin Acetaminophen 1,000 MG Q6P PRN 05/06 06 AC IV Acetaminophen 650 MG Q6P PRN 05/06 0015 AC 05/06 PO 1534 Albuterol Sulfate 2 PUF Q4-6 PRN PRN 05/06 0100 AC INH Baclofen 10 MG Q6P PRN 05/08 2030 AC 05/13 PO 0859 Clonidine 0.1 MG Q8 05/08 2200 AC 05/18 PO 0508 Dicyclomine HCl 20 MG 4 TIMES/DAY PRN 05/08 2030 AC PO Diphenhydramine HCl 25 MG ONCE ONE 05/18 0500 DC 05/18 IV 05/18 0501 0507 Heparin Sodium 5,000 UNIT Q8 05/06 06 AC 05/18 (Porcine) SC 0507 Hydromorphone HCl 2 MG Q3P PRN 05/14 0215 AC 05/18 IV 1000 Hydroxyzine HCl 100 MG Q6-PRN PRN 05/13 1545 AC 05/14 PO 2231 Insulin Aspart 0 TIDAC 05/09 1700 AC 05/18 SC 0812 Insulin Detemir 50 UNITS BID 05/06 1000 AC 05/18 SC 0812 Lorazepam 0.5 MG ONCE ONE 05/17 2345 DC 05/17 IV 05/17 2346 2354 Oxacillin Sodium 2,000 MG Q4H 05/14 0800 AC 05/18 Sodium Chloride 100 ML IV 0812 Oxycodone HCl 10 MG Q8P PRN 05/06 1130 AC 05/16 PO 2002 Pregabalin 150 MG BID 05/06 0046 AC 05/18 PO 0812 Assessment/Plan Assessment: Ms. Urias is 40-year-old female with a past medical history of osteomyelitis of pubis, necrotizing fasciitis of the perineum, hysterectomy, colostomy reversed, left renal abscess, C. difficile colitis,anxiety, depression, chronic pain disorder,chronic back pain,chronic anemia, poorly controlled IDDM 2, DKA, recent fall with minimal displaced pelvic fracture, right shoulder cellulitis s/ p incision and drainage on oxacillin to finish a course of 4 weeks (untill May 12) discharged 04/18/16, presenting with a chief complaint of worsening right pelvic and hip pain for 2 days. # S. aureus bacteremia Patient found to be septic on admission with fever, tachycardia and first set of blood cultures growing staph aureus. Patient was placed on vancomycin in addition to oxacillin on which patient had already been for cellulitis prior the this admission. Patient went into a septic shock on 05/06 which resolved with aggressive IVF resucsitation. Initial blood cultures and a series of repeat bcx' s grew MSSA. TTE and MONICA negative for endocarditis. Blood culture from the Pro line grew GPC before the peripheral line. This raised the suspicion that the source of infection could be from the Pro-line. Blood cultures from 05/12 growing GNR. Pro-line removed on 05/13. Tip of the catheter growing GNR, GPC, and staph coag negative. Repeat blood cultures from 05/13 and 05/15 NGTD - MRI pelvis (05/07): - Bone marrow edema within the pubic rami extending to the right acetabulum compatible with posttraumatic inflammatory change. Soft tissue edema surrounds the rami fractures without evidence of a focal, organized fluid collection in this region. Small right hip joint effusion nonspecific but possibly indicative of early infectious arthritis. - WBC scan (05/09): Grossly unremarkable except for moderately intense diffuse lung activity (nonspecific), possibly due to a diffuse inflammatoryprocess in the lungs * ID consulted, follow recs * Continue IV Oxacillin - if periph access cannot be established, start IM CTX 1g daily * Consider IR aspiration of joint effusion (patient currently refusing) * Follow wound care recs * Pro-line placement by IR tentatively planned for Thursday. # Chronic pain syndrome Patient carries a hx of chronic pain disorder. Patient does have a fracture in the right hip from a fall a month ago. Ortho saw the patient and recommended conservative management without any further interventions at that time. Ortho was contacted again on 05/13 and no interventions were recommended. * Roxicodone 10mg PO TID and Dilaudid 2mg Q3 PRN breaktrhoughs # Hyponatremia - resolved Patient presented with a sodium level of 114 (corrected Na 122), consistent with acute on chronic hyponatremia. This is most attributable to pseudohyponatremia in the setting of hyperglycemia, possibly with a component of SIADH/sepsis/poor intake. Patient is currently has no significant neurological symptoms. Serum & urine osmolality WNL. # Poor controlled diabetes * Novolog SSI with accuchecks * Continue Levemir 50U SQ BID # Mood disorders * Psych consulted, appreciate recs * Clonidine 0.1 mg PO Q8P, if opiate withdrawal symptoms. Hold Clonidine for blood pressure less than 90 mmHg systolic, less than 60 mmHg diastolic or pulse less than 55 BPM. * Baclofen 10 mg PO every 6 hours, as needed, for muscle cramps. * Dicyclomine 20 mg PO every 6 hours, as needed, for GI cramps. * Hydroxyzine 100 mg PO every 6 hours, as needed, for anxiety and itching. # Diet regular diet # Moderate-Severe pain pathway # DVT prophylaxis heparin subcutaneous # Full code Problem List: 1. Bacteremia 2. Right hip pain 3. Cellulitis Pain Ratin Pain Location: R hip LUE Pain Goal: Remain pain free Pain Plan: Dilaudid 2 mg IV Q3H PRN for breakthrough pain Roxicodone 10 mg PO Q8H PRN for severe pain (scale 7-10) Tylenol 1 g IV Q6H PRN for moderate pain (scale 4-6) Lyrica 150 mg PO BID Tylenol 650 mg PO Q6H PRN for mild pain (scale 1-3) Tomorrow's Labs & Rationales: CBC to monitor WBC in the setting of active infection ERIBERTO MORATAYA MD 05/18/16 1031: Attending MD Review Statement Attending Statement Attending MD Statement: examined this patient, discuss w/resident/PA/MARKETING GRAPHICS SPECIALIST, agreed w/resident/PA/MARKETING GRAPHICS SPECIALIST, reviewed EMR data (avail), discussed with nursing, discussed with case mgmt, amended to note Attending Assessment/Plan: Patient seen and examined. Audial, lying comfortably in bed, not in any acute distress. She is pleased to continue receiving her IV Dilaudid. She does no want to transition to oral medications on to the time of discharge despite counseling regarding transitioning to oral medications. She complains of left upper extremity discomfort. On examination she has no significant edema. Distal pulses are palpable. Doppler of the left upper extremity shows no evidence of thrombosis. Patient reports she believes she strained her arm as she uses that for support whenever she gets out of bed. She reports that she has been ambulating freely with in her room. Continue to encourage her to try to ambulate outside of the room and calling the nursing staff for help if needed. Right shoulder wound continues to heal adequately with no drainage or discharge. She remains afebrile and hemodynamically stable. Lab work has been difficult to obtain as she is a difficult stick. Recommendations: -Case discussed with the ID service. She will receive a proline on Thursday. -Continue current antibiotic course. -Continue current pain regimen. We'll transition to oral analgesics at the time of discharge. -Continue to encourage mobilization. -Her blood glucose levels remain in the 200s. Continue current insulin regimen. Her hemoglobin A1c was 11.3, 3 months ago. Repeat hemoglobin A1c level. If no significant improvement will reconsult endocrinology service.
--- NOTE | 2016-05-18 11:20 | PN- Infect Dx ---
Subjective Subjective: Afebrile without complaints Objective Last 24 Hrs of Vital Signs/I&O Vital Signs Date Time Temp Pulse Resp B/P Pulse O2 O2 Flow FiO2 Ox Delivery Rate 05/18 0735 98.1 70 20 128/70 95 Room Air 05/18 0508 88 136/70 05/18 0000 96 Room Air 05/17 2258 98.3 94 20 130/72 96 Room Air 05/17 1459 98.0 70 20 120/70 96 05/17 1358 85 110/78 Intake & Output 05/18 1600 05/18 0800 05/18 0000 Intake Total 370 850 Output Total 300 852 Balance 70 -2 Intake, IV 250 250 Intake, Oral 120 600 Number 0 Bowel Movements Output, Stool 2 Output, Urine 300 850 Physical Exam Other Physical Findings: She appears more comfortable Exam is unchanged Results Last 24 Hours of Lab Results: Laboratory Tests 05/17 0600 Hematology CBC w Diff Cancelled WBC Cancelled RBC Cancelled Hgb Cancelled Hct Cancelled MCV Cancelled MCH Cancelled RDW Cancelled Plt Count Cancelled MPV Cancelled PUBS MCHC Cancelled Last 24 Hours of Haris Results: Blood cultures May 13 remain negative Blood cultures May 15 remain negative Assessment/Plan Impression: Stable with her most recent blood cultures sent 3 and 5 days ago remaining negative and with temperatures and white blood cell count remaining normal on Oxacillin now Day 34 of treatment for recurrent MSSA sepsis despite treatment with Oxacillin. The most like source of her sepsis appears to be the Pro-Line catheter, which was removed 5 days ago, and, as her most recent blood cultures remain negative, a new Pro-Line should be able to be inserted on May 20. She will need to be continued on Oxacillin to complete a four-week course of antibiotics from the date of her negative blood cultures. Suggestion: 1. Would proceed with placement of a new Pro-Line on May 20 if blood cultures remain negative 2. Continue Oxacillin, but if she is left with no IV access, would give Ceftriaxone 1 gram IM every 24 hours until or unless IV access can be established.
[2016-05-18 15:22] VITALS: BP 126/62
[2016-05-18 22:45] VITALS: BP 120/70
[2016-05-19 06:02] VITALS: BP 140/80
--- NOTE | 2016-05-19 08:21 | PN- Housestaff ---
ANG FARFAN,[facility] 05/19/16 0821: Subjective Follow-up For: bacteremia Subjective: pt seen today, was lying comfortably in bed. she was in good spirit. she has been walking to the [place] by herself with a walker, and would only need help getting her legs up on the bed. She still has pain in the right hip, and also some muscle pain in the left shoulder, however neither is particularly bothering her at this point. plan for proline insertion with IR tomorrow, possibly needing anesthesia. will put her NPO past midnight. benadryl ordered for itching. told her to avoid itching the proline removal site. site currently without dressing, appears to be healing well. will keep it that way. Review of Systems Constitutional: Denies: chills, diaphoresis, fever. EENTM: Denies: visual changes. Cardiovascular: Denies: chest pain, palpitations. Respiratory: Denies: cough, short of breath. Gastrointestinal: Denies: abdominal pain, bloating, constipation, diarrhea. Genitourinary: Denies: dysuria. Objective Last 24 Hrs of Vital Signs/I&O Vital Signs Date Time Temp Pulse Resp B/P Pulse O2 O2 Flow FiO2 Ox Delivery Rate 05/19 0602 97.9 94 20 140/80 96 Room Air 05/19 0429 94 140/80 05/18 2245 98.0 99 20 120/70 95 Room Air 05/18 2201 86 128/64 05/18 1522 98.5 84 20 126/62 95 Intake & Output 05/19 1600 05/19 0800 05/19 0000 Intake Total 660 200 Output Total 801 1252 Balance -141 -1052 Intake, IV 300 200 Intake, Oral 360 Output, Stool 1 2 Output, Urine 800 1250 Physical Exam General Appearance: Alert, Oriented X3, Cooperative, No Acute Distress Skin: left chest proline removal site clean HEENT: Atraumatic, PERRLA Cardiovascular: Regular Rate, Normal S1, Normal S2 Lungs: Clear to Auscultation, Normal Air Movement Abdomen: Normal Bowel Sounds, Soft, No Tenderness Neurological: Normal Speech Extremities: No Edema Current Medications: Current Medications Sig/Shahla Start time Last Medication Dose Route Stop Time Status Admin Acetaminophen 1,000 MG Q6P PRN 05/06 0600 AC IV Acetaminophen 650 MG Q6P PRN 05/06 0015 AC 05/06 PO 1534 Albuterol Sulfate 2 PUF Q4-6 PRN PRN 05/06 0100 AC INH Baclofen 10 MG Q6P PRN 05/08 2030 AC 05/13 PO 0859 Clonidine 0.1 MG Q8 05/08 2200 AC 05/19 PO 0429 Dicyclomine HCl 20 MG 4 TIMES/DAY PRN 05/08 2030 AC PO Diphenhydramine HCl 25 MG Q6P PRN 05/19 1200 AC PO Heparin Sodium 5,000 UNIT Q8 05/06 0600 AC 05/18 (Porcine) SC 2201 Hydromorphone HCl 2 MG Q3P PRN 05/14 0215 AC 05/19 IV 1121 Hydroxyzine HCl 100 MG Q6-PRN PRN 05/13 1545 AC 05/19 PO 0824 Insulin Aspart 0 TIDAC 05/09 1700 AC 05/19 SC 0753 Insulin Detemir 50 UNITS BID 05/06 1000 AC 05/19 SC 0954 Lorazepam 0.5 MG ONCE ONE 05/18 2330 DC 05/18 IV 05/18 2331 2332 Oxacillin Sodium 2,000 MG Q4H 05/14 0800 AC 05/19 Sodium Chloride 100 ML IV 1121 Oxycodone HCl 10 MG Q8P PRN 05/06 1130 AC 05/16 PO 2003 Pregabalin 150 MG BID 05/06 0046 AC 05/19 PO 0955 Last 24 Hrs of Lab/Haris Results Last 24 Hrs of Labs/Mics: Laboratory Tests 05/19/16 0757: Hemoglobin A1c Pending Assessment/Plan Assessment: Ms. Urias is 40-year-old female with a past medical history of osteomyelitis of pubis, necrotizing fasciitis of the perineum, hysterectomy, colostomy reversed, left renal abscess, C. difficile colitis,anxiety, depression, chronic pain disorder,chronic back pain,chronic anemia, poorly controlled IDDM 2, DKA, recent fall with minimal displaced pelvic fracture, right shoulder cellulitis s/ p incision and drainage on oxacillin to finish a course of 4 weeks (untill May 12) discharged 04/18/16, presenting with a chief complaint of worsening right pelvic and hip pain for 2 days. # S. aureus bacteremia Patient found to be septic on admission with fever, tachycardia and first set of blood cultures growing staph aureus. Patient was placed on vancomycin in addition to oxacillin on which patient had already been for cellulitis prior the this admission. Patient went into a septic shock on 05/06 which resolved with aggressive IVF resucsitation. Initial blood cultures and a series of repeat bcx' s grew MSSA. TTE and MONICA negative for endocarditis. Blood culture from the Pro line grew GPC before the peripheral line. This raised the suspicion that the source of infection could be from the Pro-line. Blood cultures from 05/12 growing GNR. Pro-line removed on 05/13. Tip of the catheter growing GNR, GPC, and staph coag negative. Repeat blood cultures from 05/13 and 05/15 NGTD - MRI pelvis (05/07): - Bone marrow edema within the pubic rami extending to the right acetabulum compatible with posttraumatic inflammatory change. Soft tissue edema surrounds the rami fractures without evidence of a focal, organized fluid collection in this region. Small right hip joint effusion nonspecific but possibly indicative of early infectious arthritis. - WBC scan (05/09): Grossly unremarkable except for moderately intense diffuse lung activity (nonspecific), possibly due to a diffuse inflammatoryprocess in the lungs * ID consulted, follow recs * Continue IV Oxacillin - if periph access cannot be established, start IM CTX 1g daily * Consider IR aspiration of joint effusion (patient currently refusing) * Follow wound care recs * Pro-line placement by IR tentatively planned for Thursday, order in, NPO past midnight, migt need general anesthesia. # Chronic pain syndrome Patient carries a hx of chronic pain disorder. Patient does have a fracture in the right hip from a fall a month ago. Ortho saw the patient and recommended conservative management without any further interventions at that time. Ortho was contacted again on 05/13 and no interventions were recommended. * Roxicodone 10mg PO TID and Dilaudid 2mg Q3 PRN breaktrhoughs # Hyponatremia - resolved Patient presented with a sodium level of 114 (corrected Na 122), consistent with acute on chronic hyponatremia. This is most attributable to pseudohyponatremia in the setting of hyperglycemia, possibly with a component of SIADH/sepsis/poor intake. Patient is currently has no significant neurological symptoms. Serum & urine osmolality WNL. # Poor controlled diabetes * Novolog SSI with accuchecks * Continue Levemir 50U SQ BID # Mood disorders * Psych consulted, appreciate recs * Clonidine 0.1 mg PO Q8P, if opiate withdrawal symptoms. Hold Clonidine for blood pressure less than 90 mmHg systolic, less than 60 mmHg diastolic or pulse less than 55 BPM. * Baclofen 10 mg PO every 6 hours, as needed, for muscle cramps. * Dicyclomine 20 mg PO every 6 hours, as needed, for GI cramps. * Hydroxyzine 100 mg PO every 6 hours, as needed, for anxiety and itching. # Diet regular diet # Moderate-Severe pain pathway # DVT prophylaxis heparin subcutaneous # Full code Problem List: 1. Bacteremia Pain Ratin Pain Location: right hip and left shoulder Pain Goal: Pain 4 or less Pain Plan: mod pp Tomorrow's Labs & Rationales: none DVT/Prophylaxis: mechanical, pharmacological RAFIA FARFAN,ERIBERTO 05/19/16 1157: Attending MD Review Statement Attending Statement Attending MD Statement: examined this patient, discuss w/resident/PA/STEEL CHIPPER, agreed w/resident/PA/STEEL CHIPPER, reviewed EMR data (avail), discussed with nursing, discussed with case mgmt, amended to note Attending Assessment/Plan: Patient seen and examined. Resting comfortably not in acute distress. Complains of some pruritus. She reports relief with use of Benadryl. Denies chest pain or shortness of breath. She has been afebrile and hemodynamically stable. On examination the right shoulder wound continues to heal appropriately. Her lungs are clear bilaterally. Abdomen is soft and nontender. Left lower extremity edema is improving. She reports less pain. Recommendations: -Place proline tomorrow. -Obtain CBC and serum chemistry tomorrow once proline in place. -Following placement of proline we will begin discharge planning. Patient agrees to be transitioned to oral analgesics medications at that time. -PT consultation for discharge planning.
--- NOTE | 2016-05-19 13:43 | NUR ---
10:00- PER LASHA HSIEH PROLINE PUNCTURE SITE TO BE LEFT OPEN TO AIR.
[2016-05-19 14:10] VITALS: BP 120/70
[2016-05-19 22:51] VITALS: BP 110/70
--- NOTE | 2016-05-20 06:07 | PN- Housestaff ---
MARLENE FARFAN,MICHEL 05/20/16 0607: Subjective Follow-up For: Bacteremia Right hip pain Subjective: Patient seen and examined at bedside. No events reported overnight. Patient reports improvement in the right hip pain and left arm soreness. Remains HDS and afebrile with a normal white count. Feels very anxious about the IR procedure today and crying. No acute complaints otherwise. Eating well without constipation. Denies any chest pain, palpitations, short of breath, fever, chills, nausea, vomiting, abdominal pain, diarrhea. Review of Systems Constitutional: Reports: see HPI. Objective Last 24 Hrs of Vital Signs/I&O Vital Signs Date Time Temp Pulse Resp B/P Pulse O2 O2 Flow FiO2 Ox Delivery Rate 05/20 0741 98.5 88 20 110/60 95 Room Air 05/20 0606 86 100/60 05/19 2251 98.9 93 20 110/70 94 Room Air 05/19 2141 110/70 05/19 1410 98.2 111 20 120/70 94 05/19 1406 140/80 Intake & Output 05/20 1600 05/20 0800 05/20 0000 Intake Total 600 650 Output Total 801 450 Balance -201 200 Intake, IV 300 150 Intake, Oral 300 500 Output, Stool 1 Output, Urine 800 450 Physical Exam General Appearance: Alert, Oriented X3, Cooperative, No Acute Distress Other Physical Findings: Skin cellulitis healing well on the right shoulder with no oozing or drainage, no signs of infection around the previous Pro-line insertion site without drainage/erythema/tenderness. 4 x 2 unstageable pressure ulcer in the coccyx - moist yellow slough with periwound edge light purple discolored hue and scant drainage. HEENT: Mucous Membr. moist/pink Cardiovascular: Regular Rate, Normal S1, Normal S2, No Murmurs, Gallops, Rubs Pulmonary: CTA, no crackles/rales/rhonchi Abdomen: Normal Bowel Sounds, Soft, Mild Diffuse Tenderness to Palpation, Percutaneous Biliary Catheter with no leakage or signs of infection MSK: severe pain in the right hip Extremities: No Clubbing, No Cyanosis, No Edema Current Medications: Current Medications Sig/Shahla Start time Last Medication Dose Route Stop Time Status Admin Acetaminophen 1,000 MG Q6P PRN 05/06 0600 DC IV Acetaminophen 650 MG Q6P PRN 05/06 0015 DC 05/06 PO 1534 Albuterol Sulfate 2 PUF Q4-6 PRN PRN 05/06 0100 AC INH Baclofen 10 MG Q6P PRN 05/08 2030 AC 05/13 PO 0859 Clonidine 0.1 MG Q8 05/08 2200 AC 05/20 PO 0606 Dextrose/Sodium 1,000 ML Q10H 05/20 0900 AC 05/20 Chloride IV 0859 Dicyclomine HCl 20 MG 4 TIMES/DAY PRN 05/08 2030 AC PO Diphenhydramine HCl 25 MG Q6P PRN 05/19 1200 AC PO Heparin Sodium 0 .STK-MED ONE 05/20 1130 DC (Porcine) IV Heparin Sodium 5,000 UNIT Q8 05/06 0600 AC 05/20 (Porcine) SC 0600 Hydromorphone HCl 4 MG Q4P PRN 05/21 0000 AC PO Hydromorphone HCl 4 MG Q4P PRN 05/20 1100 DC PO Hydromorphone HCl 2 MG Q3P PRN 05/14 0215 AC 05/20 IV 05/21 0000 0953 Hydroxyzine HCl 100 MG Q6-PRN PRN 05/13 1545 AC 05/19 PO 0824 Insulin Aspart 0 TIDAC 05/09 1700 DC 05/19 SC 1710 Insulin Detemir 50 UNITS BID 05/06 1000 AC 05/19 SC 2137 Insulin Human Regular 0 Q6 05/20 0839 AC SC Lidocaine 0 .STK-MED ONE 05/20 1131 DC .ROUTE Lidocaine/Epinephrine 0 .STK-MED ONE 05/20 1131 DC .ROUTE Lorazepam 0.5 MG ONCE ONE 05/20 0845 DC 05/20 IV 05/20 0846 0859 Oxacillin Sodium 2,000 MG Q4H 05/14 0800 AC 05/20 Sodium Chloride 100 ML IV 0858 Oxycodone HCl 10 MG Q8P PRN 05/06 1130 AC 05/19 PO 2005 Oxycodone/ 1 TAB Q4P PRN 05/21 0000 AC Acetaminophen PO Pregabalin 150 MG BID 05/06 0046 AC 05/19 PO 2138 Assessment/Plan Assessment: Ms. Urias is 40-year-old female with a past medical history of osteomyelitis of pubis, necrotizing fasciitis of the perineum, hysterectomy, colostomy reversed, left renal abscess, C. difficile colitis,anxiety, depression, chronic pain disorder,chronic back pain,chronic anemia, poorly controlled IDDM 2, DKA, recent fall with minimal displaced pelvic fracture, right shoulder cellulitis s/ p incision and drainage on oxacillin to finish a course of 4 weeks (untilMay 12) discharged 04/18/16, presenting with a chief complaint of worsening right pelvic and hip pain for 2 days. # S. aureus bacteremia Patient found to be septic on admission with fever, tachycardia and first set of blood cultures growing staph aureus. Patient was placed on vancomycin in addition to oxacillin on which patient had already been for cellulitis prior the this admission. Patient went into a septic shock on 05/06 which resolved with aggressive IVF resucsitation. Initial blood cultures and a series of repeat bcx' s grew MSSA. TTE and MONICA negative for endocarditis. Blood culture from the Pro line grew GPC before the peripheral line. This raised the suspicion that the source of infection could be from the Pro-line. Blood cultures from 05/12 growing GNR. Pro-line removed on 05/13. Tip of the catheter growing GNR, GPC, and staph coag negative. Repeat blood cultures from 05/13 and 05/15 NGTD - MRI pelvis (05/07): - Bone marrow edema within the pubic rami extending to the right acetabulum compatible with posttraumatic inflammatory change. Soft tissue edema surrounds the rami fractures without evidence of a focal, organized fluid collection in this region. Small right hip joint effusion nonspecific but possibly indicative of early infectious arthritis. - WBC scan (05/09): Grossly unremarkable except for moderately intense diffuse lung activity (nonspecific), possibly due to a diffuse inflammatoryprocess in the lungs * ID consulted, follow recs * Continue IV Oxacillin - if periph access cannot be established, start IM CTX 1g daily * Consider IR aspiration of joint effusion (patient currently refusing) * Follow wound care recs * Pro-line placement by IR today # Chronic pain syndrome Patient carries a hx of chronic pain disorder. Patient does have a fracture in the right hip from a fall a month ago. Ortho saw the patient and recommended conservative management without any further interventions at that time. Ortho was contacted again on 05/13 and no interventions were recommended. * Roxicodone 10mg PO TID and Dilaudid 2mg Q3 PRN breaktrhoughs # Hyponatremia - resolved Patient presented with a sodium level of 114 (corrected Na 122), consistent with acute on chronic hyponatremia. This is most attributable to pseudohyponatremia in the setting of hyperglycemia, possibly with a component of SIADH/sepsis/poor intake. Patient is currently has no significant neurological symptoms. Serum & urine osmolality WNL. # Poor controlled diabetes * Novolog SSI with accuchecks * Continue Levemir 50U SQ BID # Mood disorders * Psych consulted, appreciate recs * Clonidine 0.1 mg PO Q8P, if opiate withdrawal symptoms. Hold Clonidine for blood pressure less than 90 mmHg systolic, less than 60 mmHg diastolic or pulse less than 55 BPM. * Baclofen 10 mg PO every 6 hours, as needed, for muscle cramps. * Dicyclomine 20 mg PO every 6 hours, as needed, for GI cramps. * Hydroxyzine 100 mg PO every 6 hours, as needed, for anxiety and itching. # Diet regular diet # Moderate-Severe pain pathway # DVT prophylaxis heparin subcutaneous # Full code Problem List: 1. Bacteremia 2. Right hip pain Pain Ratin Pain Location: R hip Pain Goal: Pain 4 or less Pain Plan: Dilaudid 2 mg IV PRN for severe pain (scale 7-10) Dilaudid 2 mg IV Q3H PRN for breakthrough pain Roxicodone 10 mg PO Q8H PRN for severe pain (scale 7-10) Tylenol 1 g IV Q6H PRN for moderate pain (scale 4-6) Lyrica 150 mg PO BID Tylenol 650 mg PO Q6H PRN for mild pain (scale 1-3) Tomorrow's Labs & Rationales: CBC to monitor WBC in the setting of active infection BEP to monitor for electrolyte disturbances ERIBERTO MORATAYA MD 05/20/16 1128: Attending MD Review Statement Attending Statement Attending MD Statement: examined this patient, discuss w/resident/PA/MACHINE FITTER, agreed w/resident/PA/MACHINE FITTER, reviewed EMR data (avail), discussed with nursing, discussed with case mgmt, amended to note Attending Assessment/Plan: She is seen and examined. No issues overnight. She remains afebrile and hemodynamically stable. She is scheduled to undergo proline placement today and is a little anxious. She reports adequate control of her pain with the current regimen. Following placement of the line she will be medically stable for discharge. Patient has only been ambulating within her room and declined to ambulate outside. She feels she is okay to be discharged home and does not want to consider short-term rehabilitation. We will obtain physical therapy consult to assist in discharge disposition. Continue antibiotics as recommended by the ID service. Follow-up serum chemistry and CBC today
[2016-05-20 07:41] VITALS: BP 110/60
--- NOTE | 2016-05-20 08:42 | Discharge Summary ---
Visit Information Visit Dates Admission Date: 05/05/16 Discharge Date: 06/10/16 Hospital Course Course Attending Physician: ERIBERTO MORATAYA M.D Primary Care Physician: YUNG BENOIT MD Consulting Request: Consulting Specialty: Infectious Disease Consulting Physician: Gerald Dunbar MD Reason for Consult: bacteremia Hospital Course: Patient is 40 year old woman with a complicated past medical history including poorly controlled insulin-dependent diabetes type 2, DKA, necrotizing fasciitis of the perineum of the perineum with osteomyelitis of the pubic symphysis, MSSA sepsis secondary to pararenal abscess, C. diff colitis, recurrent cellulitis, displaced fracture of right inferior pubic ramus status post fall, neck pain syndrome, and mood disorders including depression and anxiety, who presented with intractable right hip pain on 05/05/2016. On admission patient was found to septic with a fever and tachycardia. The patient was admitted to general medicine floor where she was treated and managed for the following problems with the plans as discussed below: # MSSA sepsis secondary to bacteremia and cellulitis Patient was found to be septic on admission with a fever up to 101.1 and tachycardia. The first set of blood culture grew staph aureus. Patient was placed on vancomycin in addition to oxacillin on which she had already been for cellulitis prior to this admission. Vancomycin was discontinued as the organism was identified as MSSA. Patient was continued on oxacillin through the existing Pro-Line. On May 07, the patient was persistently hypotensive with systolic BP down to 90's despite aggressive IV fluid resuscitation. She was subsequently transferred to ICU for septic shock and possible need for vasopressor infusion. In ICU, patient's blood pressure was brought up with aggressive IV fluid resuscitation and transferred back to general medical floor on May 08. Despite the antibiotic therapy the patient's repeat cultures continued to grow MSSA. She patient was presumed to have a focus of infection that she possibly seeded on her recent bacteremia, with areas of concern including the right hip s/p a recent fracture with a small effusion noted on the MRI, the heart valves, the Pro-Line catheter placed on her previous admission a month prior (though there was no inflammation at the site and it was placed after blood cultures were negative), and the spine (though the MRI did not reveal any paraspinal process). At that time transthoracic and transesophageal echocardiogram were done and showed no evidence of infective endocarditis. White blood cell scan was subsequently done on 05/09/2016 and only revealed uptake in the lungs, which was considered a nonspecific finding given its inconsistency with any clinical findings. At this point we attributed her source of infection to the Pro-Line catheter and therefore it was removed on May 13. The tip of the Pro-Line cathether was cultured and positive for staph coag negative with gram-negative rods and MSSA. Of note her blood culture drawn from the peripheral line on May 12 was positive for Enterobacter but this was considered a contaminant along with the staph negative from the tip of the Pro-Line. The repeat blood cultures from May 13 remained negative. A new Pro-Line was placed and patient received oxacillin for 52 days, completed on 06/10/15. # Acute on chronic anemia most likely 2/2 hemothorax Since the admission, patient's H/H gradually decreased, which was initially considered to be secondary to hemodilution. However her hemoglobin actuely dropped to 6.9 on May 21. She was transfused 3 unit of packed red blood cells with an appropriate response. The source of her acute anemia was unclear initially as stool guaic was negative and there was no gross bleeding from any orifice. Her anemia was later attributted to hemothorax when we incidentally found on the CTA on 06/05/2016. Problem #3 hyponatremia Patient had hyponatremia which was profound on admission (114) and later resolved with treatment likely secondary to underlying hyperglycemia. Problem #4 Poorly controlled diabetes Patient was noncompliant with her medications as outpatient. During her admission patient was kept on Accu-Cheks and on NovoLog sliding scale and her blood sugars were adequately controlled. She will require close follow up. Problem #5 Chronic pain syndrome/shoulder abscess status post I&D last admission Wound consultation was placed and the dressings were changed regularly while on admission. Right shoulder ulcer was healing adequately with minimal drainage. No evidence of local infection, daily cleansing and Aquacel AG wound care dressings were done. Shoulder xray shows no abnormality. Pain management was with IV dilaudid will be discontinued on discharge. She is on Roxicodone 15mg Q4hrs PRN, increased from her home medication. She needs a pain mgt consult as out patient for adequate pain control. Problem #5 depression/anxiety Anxiety and depression because of underlying multiple comorbidities. She is on hydroxyzine 100 mg every 6 hours and PO benadryl 25mg Q6hrs as needed for anxiety and seroquel was added for depression. Patient has been instructed to follow-up with outpatient psychiatry on discharge. Problem #6 Large Right sided Pleural Effusion Following new complaints of chest pain by the patient about 2+ weeks into admission, CTA was done to r/o a PE and revealed a new large right pleural effusion that was in part loculated with associated complete collapse of the right lower lobe and partial collapse of the right middle and right upper lobes. There were also a few patchy airspace opacities within the right upper and right middle lobes suspicious for superimposed pneumonia, as well several nodular opacities in the left lung suspicious for septic emboli. She denied any trauma to the chest wall, her proline is on the left chest wall and her vitals remained stable. A pleurex catheter was placed which has drained more than 3L of serosanguinous fluid since placement. Culture of the fluid and blood cultures drawn afterward have revelead no growth so far. Repeat CXRs show interval improvement in fluid collection and airspace disease. Plan is to remove pleurex catheter when drainage is less than 50cc/day. Follow surgery and pulm recommendations. Complications: Hemothorax Allergies: Coded Allergies: codeine (Intermediate, HIVES 05/05/16) nickel (Intermediate, RASH 05/05/16) adhesive tape (Mild, RASH 05/05/16) duloxetine (Intermediate, NAUSEA 05/05/16) hydrocodone (GI UPSET (ESOPHAGITIS) 05/05/16) ibuprofen (GI UPSET (ESOPHAGITIS) 05/05/16) Significant Procedures: 1. Right Thoracentesis-Draining Serosanguinous fluid 2. MONICA Indications: INFECTIVE ENDOCARDITIS Rhythm: Sinus Technical Quality: Good Medications Propofol administered by Anesthesiology. Ease of Transducer Insertion No Difficulty Complications None. Technical Difficulty none FINDINGS Left Ventricle Normal left ventricular size, wall thickness and systolic function with no obvious regional wall motion abnormalities. Right Ventricle The right ventricle is normal in size and function. Right Atrium The right atrium is normal in size. Left Atrium The left atrium is normal in size. The interatrial septum is intact. LA Appendage Normal IA Septum Intact Mitral Valve The mitral valve is normal in structure and function. There is trace mitral regurgitation. Aortic Valve Structurally normal aortic valve without significant sclerosis or stenosis. There is no aortic regurgitation. Tricuspid Valve The tricuspid valve is normal in structure and function. There is trace tricuspid regurgitation. Pulmonic Valve Structurally normal pulmonic valve. There is no pulmonic regurgitation. Pericardium Normal pericardium without effusion Great Vessels Normal descending aorta and aortic arch. CONCLUSIONS Normal transesophageal echocardiogram. No vegetations seen on this study. Mehrdad Moseley M.D. (Electronically Signed) Final Date: 09 May 2016 13:09 MEASUREMENTS (Male / Female) Normal Values Disposition Summary Disposition Principal Diagnosis: MSSA sepsis/bacteremia, Acute Anemia Additional Diagnosis: Diabetes, Anxiety, Depression, Hyponatremia, Chronic pain syndrome (chronic hip pain) Discharge Disposition: SNF Discharge Instructions General Discharge Information Code Status: Full Code Patient's Diet: Consistent carbohydrate 3 Patient's Activity: As tolerated with assistance Follow-Up Instructions/Appts: 1. Please follow up with Dr. Benoit (primary care), Dr. Dunbar (infection disease) and outpatient psychiatrist/psychologist. 2. Follow up with Dr. Lester (pain specialist) and Dr. Camp (orthopedist) if your right hip pain persists or worsens. 3. Take medications as prescribed and instructed. Medications at Discharge Discharge Medications: Stop taking the following medications: Hydroxyzine HCl (Hydroxyzine HCl) 50 MG TABLET ORAL THREE TIMES DAILY as needed for itching Qty = 30 Ondansetron HCl (Zofran) 4 MG TABLET ORAL Every 6-8 Hours as Needed as needed for nausea Qty = 10 Continue taking these medications: Pregabalin (Lyrica) 150 MG CAPSULE 1 Capsule ORAL TWICE DAILY Comments: Last Taken:06/10/16 Time: 1000 Albuterol Sulfate (Proair Hfa) 90 MCG HFA.AER.AD 2 Puff Inhale through mouth EVERY 4-6 HOURS NEEDED as needed for SOB Comments: Last Taken: 06/10/16 Time: 1000 Propranolol HCl (Propranolol HCl) 20 MG TABLET 1 Tablet ORAL TWICE DAILY Comments: NOT TAKEN IN HOSPITAL Diphenhydramine HCl (Benadryl) 25 MG CAPSULE 1 Capsule ORAL EVERY SIX HOURS as needed for ITCHING Comments: Last Taken: 06/10/16 Time:0800 Hydrocortisone Acetate (Micort-Hc) 2.5 % CREAM.APPL 1 Application On the skin THREE TIMES DAILY Comments: NOT TAKEN IN HOSPITAL Ergocalciferol (Vitamin D2) (Drisdol) 50,000 UNIT CAPSULE 1 Capsule ORAL Once a Week Qty = 8 Instructions: Please take one of these medications every week for the next eight weeks. After that, you will be required to take one every two weeks for mainainance of your vitamin D Levels. Comments: Last Taken:NOT GIVEN IN HOSPITAL Time: Insulin Aspart (Novolog) 100 UNIT/ML VIAL 0 Inject into fatty tissue SEE INSTRUCTIONS Days = 30 Instructions: Your insulin coverage was changed while in hospital. Sliding Scale Blood Sugar Less that 80mg/dl Initiate Hypoglycemia protocol 80-150 mg/dl 12 units 151-200 mg/dl 14 units 201-250 mg/dl 16 units 251-300 mg/dl 18 units 301-350 mg/dl 20 units 351-400 mg/dl 22 units More than 400 mg/dl 24 units call MD Please check your blood sugar at least three times a day. Inform your service center specialist about this change. Comments: Last Taken:06/10/16 Time:1145 AM Oxycodone HCl (Roxicodone) 15 MG TABLET 1 Tablet ORAL EVERY 4 HOURS NEEDED as needed for SEVERE PAIN Qty = 15 Comments: Last Taken: 06/10/16 Time: 1145 This prescription has been renewed Start taking the following new medications: Furosemide (Lasix) 20 MG TABLET 1 Tablet ORAL DAILY as needed for LEG SWELLING Qty = 3 No Refills Comments: Last Taken: 06/10/16 Time: 1000 Clonidine HCl (Clonidine HCl) 0.1 MG TABLET 0.1 Milligram ORAL EVERY 8 HOURS Days = 14 No Refills Instructions: Stop if you feel lightheaded or dizzy. Stop if your systolic blood pressure is below 90. Comments: Last Taken: 06/10/16 Time: 0600 Ferrous Sulfate (Ferrous Sulfate) 325 MG (65 MG IRON) TABLET. 325 Milligram ORAL THREE TIMES DAILY Days = 30 No Refills Comments: Last Taken: 06/10/16 Time: 1000 Quetiapine Fumarate (Quetiapine Fumarate) 100 MG TABLET 100 Milligram ORAL AT BEDTIME Days = 14 No Refills Comments: Last Taken: 06/09/16 Time: 2215 Magnesium Chloride (Slow-Mag) 71.5 MG TABLET. 64 Milligram ORAL DAILY Days = 30 No Refills Comments: Last Taken: 06/10/16 Time: 1000 Baclofen (Baclofen) 10 MG TABLET 10 Milligram ORAL EVERY SIX HOURS NEEDED as needed for muscle cramp Days = 14 No Refills Comments: NOT TAKEN IN HOSPITAL The following medications have been changed: Old: Insulin Detemir (Levemir) 100 UNIT/ML VIAL 55 Units Inject into fatty tissue TWICE DAILY Days = 30 New: Insulin Detemir (Levemir) 100 UNIT/ML VIAL 60 Units Inject into fatty tissue TWICE DAILY Days = 30 Comments: Last Taken: 06/10/16 Time: 1000 Copies To: CY FARFAN,YUNG Attending Review Statement Documenting Attending: ERIBERTO MORATAYA M.D
--- NOTE | 2016-05-20 10:56 | NUR ---
PHYSICAL THERAPY: RECIEVED CONSULT ORDERS, REVIEWED CHART, SPOKE W/ RN. PATIENT PREPARING FOR PROLINE PROCEDURE AND WILL BE FREDRICK. P.T. WILL F/U APPROPRIATE LATER TODAY TO COMPLETE EVALUATION AND D/C RECS.
--- NOTE | 2016-05-20 13:48 | NUR ---
PHYSICAL THERAPY: PATIENT RECENTLY RETURNED FROM PROCEDURE; P.T. ENTERED TO INTRODUCE SELF AND ROLE. PATIENT DEFERRING EVALUATION AT THIS TIME DUE TO PAIN; PATIENT IN VISIBLE DISTRESS. P.T. DISCUSSED W/ RN; WILL F/U APPROPRIATE.
--- NOTE | 2016-05-20 13:51 | ULTRASOUND REPORT ---
LEFT-SIDED TUNNELED [facility] INTERVENTIONAL RADIOLOGIST: Joseph Monreal M.D. CLINICAL INDICATION: Needs long-term antibiotics. ACCESS: Left internal jugular vein. GUIDANCE: Ultrasound and Fluoroscopy-39 seconds. SEDATION: Provided by the anesthesia service. COMPLICATIONS: None. CONTRAST: None. INFORMED CONSENT: Informed consent was obtained from the patient prior to the procedure. During this process, the procedure and potential alternatives were explained, along with the intended outcome and benefits. The risks of the procedure including the possibility of an unsuccessful procedure, as well as the risk of not doing the procedure were discussed. The patient was given the opportunity to ask questions regarding the procedure and appeared competent to make decisions. A signed consent form documenting this discussion was placed in the medical record. A time out procedure was performed. DESCRIPTION: The left neck and chest wall were prepped and draped. Ultrasound guidance for vascular access was utilized with ultrasound evaluation of the potential access site and documentation that the left internal jugular vein was patent. Under real-time ultrasound, I visualized the vascular needle entry and recorded and reported US images from this in our PACS system. Under fluoroscopic guidance, a 0.018 guidewire was advanced into the right atrium. Fluoroscopic landmarks were utilized to calculate a tunnel length. A tunnel was then created along the left chest wall to the jugular puncture site. A 6-Austrian double-lumen Pro-Line catheter was then pulled through the tunnel. After serial dilatation with 6 and 8-Austrian dilators, a 7-Austrian peel-away sheath was then placed into the left jugular vein. During a breath-hold, the Pro-Line catheter was passed through the peel-away sheath and positioned with its tip in the mid-right atrium. The peel-away sheath was removed and the wings of the Pro-Line catheter were secured to the skin using 2-0 Ethilon. The jugular entry site was closed with Dermabond. The lumens of the Pro-Line catheter were flushed with normal saline and subsequently filled with Hep-Lock. A sterile dressing was applied. IMPRESSION: Successful placement of tunneled left sided jugular Pro-Line catheter.
--- NOTE | 2016-05-20 15:31 | NUR ---
PHYSICAL THERAPY: ATTEMPTED TO SEE PATIENT AFTER ADM OF PAIN MEDS; PATIENT ADAMENTLY REFUSING. WITH ENCOURAGEMENT AND EDUCATION ON THE BENEFITS OF P.T. AND FORMAL ASSESSMENT, PATIENT STATES THAT SHE IS "TIRED" AND "UNWELL." PATIENT STATES SHE WILL TRY TOMORROW. P.T. TO F/U APPROPRIATE IN A.M.
--- NOTE | 2016-05-20 15:50 | NUR ---
11:10- PT LEFT FLOOR VIA STRETCHER FOR IR FOR PROLONE PLACEMENT. 13:30- PT RETURNED TO FLOOR VIA STRETCHER. REPORT RECEIVED FROM ANYI MORA RN. PROLINE PLACED TO LCW, TUNNELED DOUBLE LUMEN AND IS READY TO BE USED. VSS UPON RETURN TO FLOOR.
--- NOTE | 2016-05-20 15:56 | NUR ---
09:00- LABS FOR 06:00 NOT DRAWN. WHEN MST WENT TO DRAW LABS, PT BEING BUT ON STRETCHER FOR PROLINE PLACEMENT. PT DID NOT RETURN TO FLOOR UNTIL 13:50. DR. ROSARIO NOTIFIED OF ABOVE. DR. ROSARIO TO D/C 6 AM LABS AND REORDER NECESSARY LABS FOR NOW.
[2016-05-20 17:44] LABS: ABSOLUTE BASOPHIL COUNT 0.1 /CUMM (0.0-0.2); ABSOLUTE EOSINOPHIL COUNT 0.3 /CUMM (0.0-0.7); ABSOLUTE GRANULOCYTE CT 2.9 /CUMM (1.4-6.5); ABSOLUTE LYMPH COUNT 1.1 /CUMM (1.2-3.4); ABSOLUTE MONOCYTE COUNT 0.3 /CUMM (0.10-0.60); BASOPHIL % 1.1 % (0.0-2.0); EOSINOPHIL % 6.8 % (0-5); GRANULOCYTE % 62.2 % (42.2-75.2); HEMATOCRIT 24.4 % (37-47); MEAN CORPUSCULAR HGB 23.5 PG (27.0-31.0); MEAN CORPUSCULAR HGB CONC 31.6 G/DL (33.0-37.0); MEAN CORPUSCULAR VOLUME 74.3 FL (81.0-99.0); MEAN PLATELET VOLUME 7.9 FL (7.4-10.4); PLATELET COUNT 291 /CUMM (130-400); RBC DISTRIBUTION WIDTH 20.4 % (11.5-14.5); RED BLOOD CELL CT 3.28 /CUMM (4.20-5.40); WHITE BLOOD CELL COUNT 4.6 /CUMM (4.8-10.8)
[2016-05-20 22:47] VITALS: BP 120/80
--- NOTE | 2016-05-21 06:27 | PN- Housestaff ---
MARLENE FARFAN,MICHEL 05/21/16 0626: Subjective Follow-up For: Bacteremia Right hip pain Subjective: Patient seen and examined at bedside. Patient had a new Pro-line placed yesterday. Hgb dropped to 7.1 from 7.5 this morning. Received 1 unit of pRBC. Patient endorses persistent right hip pain, demanding IV Dilaudid or increased dose of Roxicodone. No acute complaints otherwise. Remains aferbile. Eating well without constipation. Denies any chest pain, palpitations, short of breath, fever, chills, nausea, vomiting, abdominal pain, diarrhea. Review of Systems Constitutional: Reports: see HPI. Objective Last 24 Hrs of Vital Signs/I&O Vital Signs Date Time Temp Pulse Resp B/P Pulse O2 O2 Flow FiO2 Ox Delivery Rate 05/21 1442 98.4 84 20 118/64 95 05/21 1431 85 110/60 05/21 0643 98.3 96 18 124/76 93 Room Air 05/21 0549 78 112/80 05/20 2247 98.5 98 20 120/80 92 Room Air Intake & Output 05/21 1600 05/21 0800 05/21 0000 Intake Total 8520 513 7067 Output Total 1100 600 Balance 70 200 1000 Intake, Blood 350 Product Intake, IV 220 300 Intake, Oral 711 065 7629 Number 0 1 2 Bowel Movements Output, Urine 1100 600 Physical Exam General Appearance: Alert, Oriented X3, Cooperative, Mild Distress Other Physical Findings: Skin cellulitis healing well on the right shoulder with no oozing or drainage, no signs of infection around the previous Pro-line insertion site without drainage/erythema/tenderness. 4 x 2 unstageable pressure ulcer in the coccyx - moist yellow slough with periwound edge light purple discolored hue and scant drainage. HEENT: Mucous Membr. moist/pink Cardiovascular: Regular Rate, Normal S1, Normal S2, No Murmurs, Gallops, Rubs Pulmonary: CTA, no crackles/rales/rhonchi Abdomen: Normal Bowel Sounds, Soft, Mild Diffuse Tenderness to Palpation, Percutaneous Biliary Catheter with no leakage or signs of infection MSK: severe pain in the right hip Extremities: No Clubbing, No Cyanosis, No Edema Current Medications: Current Medications Sig/Shahla Start time Last Medication Dose Route Stop Time Status Admin Albuterol Sulfate 2 PUF Q4-6 PRN PRN 05/06 0100 AC INH Baclofen 10 MG Q6P PRN 05/08 2030 AC 05/13 PO 0859 Clonidine 0.1 MG Q8 05/08 2200 AC 05/21 PO 1431 Dicyclomine HCl 20 MG 4 TIMES/DAY PRN 05/08 2030 AC PO Diphenhydramine HCl 25 MG Q6P PRN 05/19 1200 AC 05/21 PO 1518 Ferrous Sulfate 325 MG TID 05/21 1600 AC 05/21 PO 1623 Heparin Sodium 5,000 UNIT Q8 05/06 0600 AC 05/21 (Porcine) SC 0547 Hydromorphone HCl 1 MG Q4P PRN 05/21 1430 AC 05/21 IV 1431 Hydromorphone HCl 2 MG ONCE ONE 05/21 0945 DC 05/21 IV 05/21 0946 0945 Hydromorphone HCl 2 MG ONCE ONE 05/21 0200 DC 05/21 IV 05/21 0201 0149 Hydromorphone HCl 4 MG Q4P PRN 05/21 0000 DC PO Hydromorphone HCl 2 MG Q3P PRN 05/14 0215 DC 05/20 IV 05/21 0000 2243 Hydroxyzine HCl 100 MG Q6-PRN PRN 05/13 1545 AC 05/20 PO 2247 Insulin Aspart 0 TIDAC 05/20 1700 AC 05/21 MO 1623 Insulin Detemir 50 UNITS BID 05/06 1000 AC 05/21 SC 0945 Lorazepam 0.5 MG ONCE ONE 05/20 2115 DC 05/20 IV 05/20 2116 2130 Magnesium Chloride 64 MG DAILY 05/21 1246 AC 05/21 PO 1508 Oxacillin Sodium 2,000 MG Q4H 05/20 1800 AC 05/21 Sodium Chloride 100 ML IV 1430 Oxycodone HCl 15 MG Q6P PRN 05/21 1430 AC PO Oxycodone HCl 15 MG Q8 05/21 1400 DC 05/21 PO 1309 Oxycodone HCl 10 MG Q4P PRN 05/21 0945 DC PO Oxycodone HCl 10 MG Q8P PRN 05/06 1130 DC 05/19 PO 2005 Oxycodone/ 1 TAB Q4P PRN 05/21 0000 AC Acetaminophen PO Pregabalin 150 MG BID 05/06 0046 AC 05/21 PO 0945 Last 24 Hrs of Lab/Haris Results Last 24 Hrs of Labs/Mics: Laboratory Tests 05/21/16 0530: Anion Gap 11, Estimated GFR > 60, BUN/Creatinine Ratio 36.7 H, Iron 18 L, TIBC 453, Ferritin 14.1, CBC w Diff NO MAN DIFF REQ, RBC 3.03 L, MCV 74.5 L, MCH 23.3 L, RDW 20.4 H, MPV 8.4, Gran % 49.4, Lymphocytes % 32.2, Monocytes % 7.0, Eosinophils % 10.0 H, Basophils % 1.4, Absolute Granulocytes 2.0, Absolute Lymphocytes 1.3, Absolute Monocytes 0.3, Absolute Eosinophils 0.4, Absolute Basophils 0.1, PUBS MCHC 31.3 L Assessment/Plan Assessment: Ms. Urias is 40-year-old female with a past medical history of osteomyelitis of pubis, necrotizing fasciitis of the perineum, hysterectomy, colostomy reversed, left renal abscess, C. difficile colitis,anxiety, depression, chronic pain disorder,chronic back pain,chronic anemia, poorly controlled IDDM 2, DKA, recent fall with minimal displaced pelvic fracture, right shoulder cellulitis s/ p incision and drainage on oxacillin to finish a course of 4 weeks (untilMay 12) discharged 04/18/16, presenting with a chief complaint of worsening right pelvic and hip pain for 2 days. # S. aureus bacteremia Patient found to be septic on admission with fever, tachycardia and first set of blood cultures growing staph aureus. Patient was placed on vancomycin in addition to oxacillin on which patient had already been for cellulitis prior the this admission. Patient went into a septic shock on 05/06 which resolved with aggressive IVF resucsitation. Initial blood cultures and a series of repeat bcx' s grew MSSA. TTE and MONICA negative for endocarditis. Blood culture from the Pro line grew GPC before the peripheral line. This raised the suspicion that the source of infection could be from the Pro-line. Blood cultures from 05/12 growing GNR. Pro-line removed on 05/13. Tip of the catheter growing GNR, GPC, and staph coag negative. Repeat blood cultures from 05/13 and 05/15 NGTD - MRI pelvis (05/07): - Bone marrow edema within the pubic rami extending to the right acetabulum compatible with posttraumatic inflammatory change. Soft tissue edema surrounds the rami fractures without evidence of a focal, organized fluid collection in this region. Small right hip joint effusion nonspecific but possibly indicative of early infectious arthritis. New Pro-line placement on 05/20. - WBC scan (05/09): Grossly unremarkable except for moderately intense diffuse lung activity (nonspecific), possibly due to a diffuse inflammatoryprocess in the lungs * ID consulted, follow recs * Continue IV Oxacillin - if periph access cannot be established, start IM CTX 1g daily * Follow wound care recs # Chronic pain syndrome Patient carries a hx of chronic pain disorder. Patient does have a fracture in the right hip from a fall a month ago. Ortho saw the patient and recommended conservative management without any further interventions at that time. Ortho was contacted again on 05/13 and no interventions were recommended. * Roxicodone 15mg PO Q6 and Dilaudid 1mg Q4 PRN breaktrhoughs # Anemia Patient's hemoglobin dropped to 7.1 this morning. Iron studies normal. Patient was transfused 1 unit. Most likely anemia of chronic disease vs. ACBL. * Check repeat CBC at 6PM * Transfuse if Hgb < 7 * Follow [place] stool test # Hyponatremia - resolved Patient presented with a sodium level of 114 (corrected Na 122), consistent with acute on chronic hyponatremia. This is most attributable to pseudohyponatremia in the setting of hyperglycemia, possibly with a component of SIADH/sepsis/poor intake. Patient is currently has no significant neurological symptoms. Serum & urine osmolality WNL. # Poor controlled diabetes * Novolog SSI with accuchecks * Continue Levemir 50U SQ BID # Mood disorders * Psych consulted, appreciate recs * Clonidine 0.1 mg PO Q8P, if opiate withdrawal symptoms. Hold Clonidine for blood pressure less than 90 mmHg systolic, less than 60 mmHg diastolic or pulse less than 55 BPM. * Baclofen 10 mg PO every 6 hours, as needed, for muscle cramps. * Dicyclomine 20 mg PO every 6 hours, as needed, for GI cramps. * Hydroxyzine 100 mg PO every 6 hours, as needed, for anxiety and itching. # Diet regular diet # Moderate-Severe pain pathway # DVT prophylaxis heparin subcutaneous # Full code Problem List: 1. Diabetes mellitus 2. Anemia 3. Bacteremia 4. Cellulitis 5. Right hip pain Pain Ratin Pain Location: R hip Pain Goal: Remain pain free Pain Plan: Moderate pathway Tomorrow's Labs & Rationales: CBC to check for leukocytosis and anemia Consulting Request: Consulting Specialty: Infectious Disease Consulting Physician: Gerald Dunbar MD Reason for Consult: bacteremia RAFIA FARFAN,ERIBERTO 05/21/16 1440: Attending MD Review Statement Attending Statement Attending MD Statement: examined this patient, discuss w/resident/PA/SURGERY SCHEDULING COORDINATOR, agreed w/resident/PA/SURGERY SCHEDULING COORDINATOR, reviewed EMR data (avail), discussed with nursing, discussed with case mgmt, amended to note Attending Assessment/Plan: Patient seen and examined. Hemodynamically stable and afebrile. This morning hemoglobin level continues to trend downwards. No evidence of rectal bleeding. Her guaiac was negative earlier on. She is hemodynamically stable. Anemia is likely secondary to chronic disease. There is no evidence of bleeding at the site of proline placement. She continues to complain of pain request and analgesic therapy. She has agreed to transition to oral medication but prefers OxyContin at her home dose rather than Dilaudid. Recommendations: -Transfuse 1 unit of PRBC. Repeat hemoglobin posttransfusion today and begin in the morning. -If her hemoglobin level is stable will anticipate discharge. -Physical therapy consult was placed as patient refused ambulate outside the room. She reports ambulating inside the room and insists on being discharged home. She was found to be unsteady by the physical therapist and recommendations are for discharge to [facility] facility. Patient is currently resisting this. We will continue to encourage her discharge to [facility] facility for her safety.
[2016-05-21 06:43] VITALS: BP 124/76
[2016-05-21] MEDS ORDERED: HYDROMORPHONE HC2 M1 PO (06:49)
[2016-05-21] MEDS ORDERED: ROXICODONE15 M1 PO (06:49)
[2016-05-21] MEDS ORDERED: PERCOCET 5-3251 EACH PO (06:49)
[2016-05-21] MEDS ORDERED: CLONIDINE HCL0.1 MG PO (06:53)
[2016-05-21] MEDS ORDERED: HYDROXYZINE HCL50 M1 PO (06:53)
[2016-05-21 08:14] LABS: ABSOLUTE BASOPHIL COUNT 0.1 /CUMM (0.0-0.2); ABSOLUTE EOSINOPHIL COUNT 0.4 /CUMM (0.0-0.7); ABSOLUTE LYMPH COUNT 1.3 /CUMM (1.2-3.4); ABSOLUTE MONOCYTE COUNT 0.3 /CUMM (0.10-0.60); BASOPHIL % 1.4 % (0.0-2.0); MEAN CORPUSCULAR HGB 23.3 PG (27.0-31.0); MEAN CORPUSCULAR HGB CONC 31.3 G/DL (33.0-37.0); MEAN CORPUSCULAR VOLUME 74.5 FL (81.0-99.0); MEAN PLATELET VOLUME 8.4 FL (7.4-10.4); RBC DISTRIBUTION WIDTH 20.4 % (11.5-14.5); RED BLOOD CELL CT 3.03 /CUMM (4.20-5.40); WHITE BLOOD CELL COUNT 4.1 /CUMM (4.8-10.8)
[2016-05-21 08:36] LABS: HEMATOCRIT 22.6 % (37-47)
--- NOTE | 2016-05-21 08:46 | NUR ---
PHYSICAL THERAPY: ATTEMPTED TO SEE PATIENT THIS A.M. PATIENT ADAMENTLY REFUSING P.T. STATING THAT SHE "PAIN ALL OVER, IN MY CHEST, IN MY L HIP AND LEG, I CANNOT DO ANYTHING, I CANNOT MOVE." WITH EDUCATION REGARDING TO EFFECTS OF BED REST, THE IMPROTANCE/BENEFIT OF PHYSICAL THERAPY, AND THE NEED FOR FORMAL D/C RECOMMENDATIONS/ASSESSMENT, AND OFFERED TO TRIAL SITITNG EOB IF UNABLE TO TRANSFER/AMBULATION. PATIENT CONTINUES TO REFUSE STATING "I CANNOT DO ANYTHING, YOU ARE STRESSING ME OUT, I WILL NOT SIT AT THE EDGE OF THE BED, STOP COMING HERE AND ASKING ME." P.T. WILL F/U WITH MD AND RN REGARDING MULTIPLE REFUSALS FOR P.T. EVALUATION.
[2016-05-21 09:20] LABS: GRANULOCYTE % 49.4 % (42.2-75.2); PLATELET COUNT 270 /CUMM (130-400)
[2016-05-21 14:42] VITALS: BP 118/64
--- NOTE | 2016-05-21 15:57 | PN- Infect Dx ---
Subjective Subjective: Afebrile. She continues to complain of pain in the right groin. Objective Last 24 Hrs of Vital Signs/I&O Vital Signs Date Time Temp Pulse Resp B/P Pulse O2 O2 Flow FiO2 Ox Delivery Rate 05/21 1442 98.4 84 20 118/64 95 05/21 1431 85 110/60 05/21 0643 98.3 96 18 124/76 93 Room Air 05/21 0549 78 112/80 05/20 2247 98.5 98 20 120/80 92 Room Air Intake & Output 05/21 1600 05/21 0800 05/21 0000 Intake Total 800 1000 Output Total 600 Balance 200 1000 Intake, IV 300 Intake, Oral 500 1000 Number 1 2 Bowel Movements Output, Urine 600 Physical Exam Other Physical Findings: She appears comfortable in no acute distress Chest Pro-Line in the left upper chest with no inflammation at the site Lungs are clear Heart regular rhythm with no murmur Results Last 24 Hours of Lab Results: Laboratory Tests 05/21 05/20 0530 1640 Chemistry Sodium (137 - 145 mmol/L) 136 L Potassium (3.5 - 5.1 mmol/L) 4.5 Chloride (98 - 107 mmol/L) 98 Carbon Dioxide (22 - 30 mmol/L) 28 Anion Gap (5 - 16) 11 BUN (7 - 17 mg/dL) 22 H Creatinine (0.5 - 1.0 mg/dL) 0.6 Estimated GFR (>60 ml/min) > 60 BUN/Creatinine Ratio (7 - 25 %) 36.7 H Hemoglobin A1c Pending Iron (37 - 170 ug/dL) 18 L TIBC (265 - 497 ug/dL) 453 Ferritin (6.24 - 137 ng/mL) 14.1 Hematology CBC w Diff NO MAN DIFF REQ WBC (4.8 - 10.8 /CUMM) 4.1 L RBC (4.20 - 5.40 /CUMM) 3.03 L Hgb (12.0 - 16.0 G/DL) 7.1 *L Hct (37 - 47 %) 22.6 L MCV (81.0 - 99.0 FL) 74.5 L MCH (27.0 - 31.0 PG) 23.3 L RDW (11.5 - 14.5 %) 20.4 H Plt Count (130 - 400 /CUMM) 270 MPV (7.4 - 10.4 FL) 8.4 Gran % (42.2 - 75.2 %) 49.4 Lymphocytes % (20.5 - 51.1 %) 32.2 Monocytes % (1.7 - 9.3 %) 7.0 Eosinophils % (0 - 5 %) 10.0 H Basophils % (0.0 - 2.0 %) 1.4 Absolute Granulocytes (1.4 - 6.5 /CUMM) 2.0 Absolute Lymphocytes (1.2 - 3.4 /CUMM) 1.3 Absolute Monocytes (0.10 - 0.60 /CUMM) 0.3 Absolute Eosinophils (0.0 - 0.7 /CUMM) 0.4 Absolute Basophils (0.0 - 0.2 /CUMM) 0.1 PUBS MCHC (33.0 - 37.0 G/DL) 31.3 L 01/03 1640 Chemistry Sodium (137 - 145 mmol/L) 138 Potassium (3.5 - 5.1 mmol/L) 4.1 Chloride (98 - 107 mmol/L) 100 Carbon Dioxide (22 - 30 mmol/L) 28 Anion Gap (5 - 16) 10 BUN (7 - 17 mg/dL) 19 H Creatinine (0.5 - 1.0 mg/dL) 0.6 Estimated GFR (>60 ml/min) > 60 BUN/Creatinine Ratio (7 - 25 %) 31.7 H Magnesium (1.6 - 2.3 mg/dL) 1.4 L Hematology CBC w Diff NO MAN DIFF REQ WBC (4.8 - 10.8 /CUMM) 4.6 L RBC (4.20 - 5.40 /CUMM) 3.28 L Hgb (12.0 - 16.0 G/DL) 7.7 L Hct (37 - 47 %) 24.4 L MCV (81.0 - 99.0 FL) 74.3 L MCH (27.0 - 31.0 PG) 23.5 L RDW (11.5 - 14.5 %) 20.4 H Plt Count (130 - 400 /CUMM) 291 MPV (7.4 - 10.4 FL) 7.9 Gran % (42.2 - 75.2 %) 62.2 Lymphocytes % (20.5 - 51.1 %) 24.2 Monocytes % (1.7 - 9.3 %) 5.7 Eosinophils % (0 - 5 %) 6.8 H Basophils % (0.0 - 2.0 %) 1.1 Absolute Granulocytes (1.4 - 6.5 /CUMM) 2.9 Absolute Lymphocytes (1.2 - 3.4 /CUMM) 1.1 L Absolute Monocytes (0.10 - 0.60 /CUMM) 0.3 Absolute Eosinophils (0.0 - 0.7 /CUMM) 0.3 Absolute Basophils (0.0 - 0.2 /CUMM) 0.1 PUBS MCHC (33.0 - 37.0 G/DL) 31.6 L Last 24 Hours of Haris Results: Blood cultures May 13 negative Blood cultures May 15 negative Assessment/Plan Impression: Stable on Oxacillin now Day 37 of treatment for recurrent MSSA sepsis, felt most likely secondary to the Pro-Line catheter, which was removed 8 days ago, with her most recent blood cultures sent 6 days and 8 days ago remaining negative and with temperatures and white blood cell count remaining normal. A new Pro-Line catheter was inserted yesterday, and she will need to be continued on Oxacillin to complete a four-week course of antibiotics from the date of her negative blood cultures. Suggestion: 1. Continue Oxacillin until June 10 2. CBC and CMP weekly while on Oxacillin
[2016-05-21 20:31] LABS: ABSOLUTE BASOPHIL COUNT 0.1 /CUMM (0.0-0.2); ABSOLUTE EOSINOPHIL COUNT 0.4 /CUMM (0.0-0.7); ABSOLUTE GRANULOCYTE CT 2.3 /CUMM (1.4-6.5); ABSOLUTE LYMPH COUNT 1.2 /CUMM (1.2-3.4); ABSOLUTE MONOCYTE COUNT 0.3 /CUMM (0.10-0.60); BASOPHIL % 1.2 % (0.0-2.0); EOSINOPHIL % 8.9 % (0-5); GRANULOCYTE % 54.3 % (42.2-75.2); MEAN CORPUSCULAR HGB 23.5 PG (27.0-31.0); MEAN CORPUSCULAR HGB CONC 30.8 G/DL (33.0-37.0); MEAN CORPUSCULAR VOLUME 76.2 FL (81.0-99.0); MEAN PLATELET VOLUME 8.4 FL (7.4-10.4); PLATELET COUNT 254 /CUMM (130-400); RED BLOOD CELL CT 2.94 /CUMM (4.20-5.40); WHITE BLOOD CELL COUNT 4.2 /CUMM (4.8-10.8)
[2016-05-21 20:44] LABS: HEMATOCRIT 22.4 % (37-47)
[2016-05-21 22:34] VITALS: BP 122/60
--- NOTE | 2016-05-22 06:26 | PN- Housestaff ---
MARLEEN FARFAN,MICHEL 05/22/16 0626: Subjective Follow-up For: Bacteremia Right hip pain Anemia Subjective: Patient seen and examined at bedside. Patient's Hgb dropped to 6.9 despite receiving 1 unit of pRBC. She received 2 additional units with an appropriate response - Hgb over 10 this morning. Patient feels anxious and complains of right hip pain, asking for more IV Dilaudid. Agrees to going to rehab facility upon discharge. No acute complaints otherwise. Remains aferbile. Eating well without constipation. Denies any chest pain, palpitations, short of breath, fever, chills, nausea, vomiting, abdominal pain, diarrhea. Review of Systems Constitutional: Reports: see HPI. Objective Last 24 Hrs of Vital Signs/I&O Vital Signs Date Time Temp Pulse Resp B/P Pulse O2 O2 Flow FiO2 Ox Delivery Rate 05/22 0510 82 116/80 05/22 0000 90 05/21 2234 99.0 90 20 122/60 91 Room Air 05/21 2202 140/88 05/21 1442 98.4 84 20 118/64 95 05/21 1431 85 110/60 Intake & Output 05/22 1600 05/22 0800 05/22 0000 Intake Total 1350 550 Output Total 350 500 Balance 1000 50 Intake, Blood 500 Product Intake, IV 400 Intake, Oral 450 550 Number 2 2 Bowel Movements Output, Urine 350 500 Physical Exam General Appearance: Alert, Oriented X3, Cooperative, No Acute Distress Other Physical Findings: Skin cellulitis healing well on the right shoulder with no oozing or drainage, no signs of infection around the Pro-line insertion site without drainage/ erythema/tenderness. 4 x 2 unstageable pressure ulcer in the coccyx - moist yellow slough with periwound edge light purple discolored hue and scant drainage. HEENT: Mucous Membr. moist/pink Cardiovascular: Regular Rate, Normal S1, Normal S2, No Murmurs, Gallops, Rubs Pulmonary: CTA, no crackles/rales/rhonchi Abdomen: Normal Bowel Sounds, Soft, Mild Diffuse Tenderness to Palpation, Percutaneous Biliary Catheter with no leakage or signs of infection MSK: severe pain in the right hip Extremities: No Clubbing, No Cyanosis, No Edema Current Medications: Current Medications Sig/Shahla Start time Last Medication Dose Route Stop Time Status Admin Albuterol Sulfate 2 PUF Q4-6 PRN PRN 05/06 0100 AC INH Baclofen 10 MG Q6P PRN 05/08 2030 AC 05/13 PO 0859 Clonidine 0.1 MG Q8 05/08 2200 AC 05/22 PO 0510 Dicyclomine HCl 20 MG 4 TIMES/DAY PRN 05/08 2030 AC PO Diphenhydramine HCl 25 MG .STK-MED ONE 05/22 0527 DC PO 05/22 0528 Diphenhydramine HCl 25 MG Q6P PRN 05/19 1200 AC 05/22 PO 0543 Ferrous Sulfate 325 MG TID 05/21 1600 AC 05/22 PO 1112 Heparin Sodium 5,000 UNIT Q8 05/06 0600 AC 05/21 (Porcine) SC 0547 Hydromorphone HCl 1 MG ONCE ONE 05/22 0900 DC 05/22 IV 05/22 0901 0910 Hydromorphone HCl 1 MG ONCE ONE 05/22 0830 DC 05/22 IV 05/22 0831 0840 Hydromorphone HCl 1 MG ONCE ONE 05/22 0030 DC 05/22 IV 05/22 0031 0059 Hydromorphone HCl 1 MG Q4P PRN 05/21 1430 DC 05/22 IV 0510 Hydroxyzine HCl 100 MG Q6-PRN PRN 05/13 1545 AC 05/20 PO 2247 Insulin Aspart 0 TIDAC 05/20 1700 AC 05/21 SC 1623 Insulin Detemir 50 UNITS BID 05/06 1000 AC 05/22 SC 1113 Lorazepam 1 MG ONCE ONE 05/22 1130 DC 05/22 IV 05/22 1131 1125 Lorazepam 0.5 MG ONCE ONE 05/21 2100 DC 05/21 IV 05/21 2101 2106 Magnesium Chloride 64 MG DAILY 05/21 1246 AC 05/22 PO 1113 Oxacillin Sodium 2,000 MG Q4H 05/20 1800 AC 05/22 Sodium Chloride 100 ML IV 1110 Oxycodone HCl 15 MG Q4 HRS NEEDED PRN 05/22 1030 AC 05/22 PO 1111 Oxycodone HCl 15 MG Q6P PRN 05/21 1430 DC 05/22 PO 0351 Oxycodone HCl 15 MG Q8 05/21 1400 DC 05/21 PO 1309 Oxycodone/ 1 TAB Q4P PRN 05/21 0000 AC Acetaminophen PO Pregabalin 150 MG BID 05/06 0046 AC 05/22 PO 1112 Last 24 Hrs of Lab/Haris Results Last 24 Hrs of Labs/Mics: Laboratory Tests 05/22/16 0520: CBC w Diff NO MAN DIFF REQ, RBC 4.01 L, MCV 78.8 L, MCH 25.4 L, RDW 19.6 H, MPV 8.2, Gran % 46.5, Lymphocytes % 31.9, Monocytes % 9.7 H, Eosinophils % 10.9 H, Basophils % 1.0, Absolute Granulocytes 2.3, Absolute Lymphocytes 1.6, Absolute Monocytes 0.5, Absolute Eosinophils 0.5, Absolute Basophils 0.1, PUBS MCHC 32.3 L 05/21/16 1730: CBC w Diff NO MAN DIFF REQ, RBC 2.94 L, MCV 76.2 L, MCH 23.5 L, RDW 20.0 H, MPV 8.4, Gran % 54.3, Lymphocytes % 28.6, Monocytes % 7.0, Eosinophils % 8.9 H, Basophils % 1.2, Absolute Granulocytes 2.3, Absolute Lymphocytes 1.2, Absolute Monocytes 0.3, Absolute Eosinophils 0.4, Absolute Basophils 0.1, PUBS MCHC 30.8 L Assessment/Plan Assessment: Ms. Urias is 40-year-old female with a past medical history of osteomyelitis of pubis, necrotizing fasciitis of the perineum, hysterectomy, colostomy reversed, left renal abscess, C. difficile colitis,anxiety, depression, chronic pain disorder,chronic back pain,chronic anemia, poorly controlled IDDM 2, DKA, recent fall with minimal displaced pelvic fracture, right shoulder cellulitis s/ p incision and drainage on oxacillin to finish a course of 4 weeks (untill May 12) discharged 04/18/16, presenting with a chief complaint of worsening right pelvic and hip pain for 2 days. # S. aureus bacteremia Patient found to be septic on admission with fever, tachycardia and first set of blood cultures growing staph aureus. Patient was placed on vancomycin in addition to oxacillin on which patient had already been for cellulitis prior the this admission. Patient went into a septic shock on 05/06 which resolved with aggressive IVF resucsitation. Initial blood cultures and a series of repeat bcx' s grew MSSA. TTE and MONICA negative for endocarditis. Blood culture from the Pro line grew GPC before the peripheral line. This raised the suspicion that the source of infection could be from the Pro-line. Blood cultures from 05/12 growing GNR. Pro-line removed on 05/13. Tip of the catheter growing GNR, GPC, and staph coag negative. Repeat blood cultures from 05/13 and 05/15 NGTD - MRI pelvis (05/07): - Bone marrow edema within the pubic rami extending to the right acetabulum compatible with posttraumatic inflammatory change. Soft tissue edema surrounds the rami fractures without evidence of a focal, organized fluid collection in this region. Small right hip joint effusion nonspecific but possibly indicative of early infectious arthritis. New Pro-line placement on 05/20. - WBC scan (05/09): Grossly unremarkable except for moderately intense diffuse lung activity (nonspecific), possibly due to a diffuse inflammatoryprocess in the lungs * ID consulted, follow recs * Continue IV oxacillin - if periph access cannot be established, start IM CTX 1g daily * To be discharged on IV oxacillin until 06/10/16 * Follow wound care recs # Chronic pain syndrome Patient carries a hx of chronic pain disorder. Patient does have a fracture in the right hip from a fall a month ago. Ortho saw the patient and recommended conservative management without any further interventions at that time. Ortho was contacted again on 05/13 and no interventions were recommended. * Increase Roxicodone to 15mg PO Q4 PRN * Discontinue IV Dilaudid 1mg Q4 PRN breaktrhoughs # Anemia most likely 2/2 iron deficiency and possibly acute GI blood loss Patient's hemoglobin dropped to 7.1 on 05/22. Hgb dropped to 6.9 despite receiving 1 unit of pRBC. She received 2 additional units with an appropriate response. Gu[place] stool test negative. Iron studies significant for low Fe and slightly elevated TIBC. Patient was transfused a total of 3 units on 05/22. Most likely anemia of chronic disease vs. ACBL vs. Fe deficiency. * Repeat CBC - 10.2 today * Cont iron supplementation * Transfuse if Hgb < 7 # Hyponatremia - resolved Patient presented with a sodium level of 114 (corrected Na 122), consistent with acute on chronic hyponatremia. This is most attributable to pseudohyponatremia in the setting of hyperglycemia, possibly with a component of SIADH/sepsis/poor intake. Patient is currently has no significant neurological symptoms. Serum & urine osmolality WNL. # Poor controlled diabetes * Novolog SSI with accuchecks * Continue Levemir 50U SQ BID # Mood disorders * Psych consulted, appreciate recs * Clonidine 0.1 mg PO Q8P, if opiate withdrawal symptoms. Hold Clonidine for blood pressure less than 90 mmHg systolic, less than 60 mmHg diastolic or pulse less than 55 BPM. * Baclofen 10 mg PO every 6 hours, as needed, for muscle cramps. * Dicyclomine 20 mg PO every 6 hours, as needed, for GI cramps. * Hydroxyzine 100 mg PO every 6 hours, as needed, for anxiety and itching. # Diet regular diet # Moderate-Severe pain pathway # DVT prophylaxis heparin subcutaneous # Full code Problem List: 1. Anxiety 2. Diabetes mellitus 3. Cellulitis 4. Sepsis 5. Bacteremia 6. Right hip pain Pain Ratin Pain Location: R hip Pain Goal: Pain 4 or less Pain Plan: Roxicodone 15mg Q4 PRN Tomorrow's Labs & Rationales: CBC - anemia and leukocytosis Consulting Request: Consulting Specialty: Infectious Disease Consulting Physician: Gerald Dunbar MD Reason for Consult: bacteremia RAFIA FARFAN,ERIBERTO 05/22/16 1207: Attending MD Review Statement Attending Statement Attending MD Statement: examined this patient, discuss w/resident/PA/CHICKEN TENDER, agreed w/resident/PA/CHICKEN TENDER, reviewed EMR data (avail), discussed with nursing, discussed with case mgmt, amended to note Attending Assessment/Plan: Patient seen and examined. She received a total of 3 units of blood yesterday as labs after the initial unit appeared to show drop in hemoglobin. However she did have significant improvement overnight suggesting that the initial posttransfusion lab may not have been entirely accurate. I hemoglobin however is currently in an acceptable range. She is hemodynamically stable. She is not tachycardic. Stool guaiac was negative yesterday. The right shoulder wound continues to heal appropriately. At this point in time she is medically stable to be discharged. She is in agreement with recommendations from the physical therapist to discharge to a shelter facility for short-term rehabilitation. Recommendations: -Continue antibiotic therapy with OXACILLIN with last date on June 10. -Patient is requesting only Roxicodone for pain control. She is however requested higher doses for control. At home she is on 15 mg 3 times a day. Her dose has been increased to 15 mg every 4 hours. She is in agreement with this recommendation. -Add bowel regimen to her discharge medications to prevent opioid-induced constipation. -She is being discharged on clonidine and hydroxyzine as recommended by the psychiatric service. -She is medically stable to be discharged once a bed becomes available at a shelter facility.
[2016-05-22 08:09] LABS: ABSOLUTE BASOPHIL COUNT 0.1 /CUMM (0.0-0.2); ABSOLUTE EOSINOPHIL COUNT 0.5 /CUMM (0.0-0.7); ABSOLUTE LYMPH COUNT 1.6 /CUMM (1.2-3.4); ABSOLUTE MONOCYTE COUNT 0.5 /CUMM (0.10-0.60)
[2016-05-22 08:50] LABS: ABSOLUTE GRANULOCYTE CT 2.3 /CUMM (1.4-6.5); EOSINOPHIL % 10.9 % (0-5); GRANULOCYTE % 46.5 % (42.2-75.2); MEAN CORPUSCULAR HGB 25.4 PG (27.0-31.0); MEAN CORPUSCULAR HGB CONC 32.3 G/DL (33.0-37.0); MEAN CORPUSCULAR VOLUME 78.8 FL (81.0-99.0); MEAN PLATELET VOLUME 8.2 FL (7.4-10.4); PLATELET COUNT 279 /CUMM (130-400); RBC DISTRIBUTION WIDTH 19.6 % (11.5-14.5); WHITE BLOOD CELL COUNT 4.9 /CUMM (4.8-10.8)
[2016-05-22 08:58] LABS: HEMATOCRIT 31.6 % (37-47); RED BLOOD CELL CT 4.01 /CUMM (4.20-5.40)
[2016-05-22] MEDS ORDERED: ROXICODONE15 M1 PO (09:10)
--- NOTE | 2016-05-22 09:33 | Patient Discharge Instructions ---
Discharge Instructions General Discharge Information You were seen/treated for: Sepsis Bacteremia Cellulitis Chronic hip pain You had these procedures: Thoracentesis with a peural catheter placement Pro-Line placement Watch for these problems: Return to ED if you have persisent/worsening fever, chills, chest/abdominal pain , shortness of breath, etc. Special Instructions: 1. Please follow up with Dr. Espinosa (primary care) within a week of discharge. 2. Please follow up with Dr. Batista (lung doctor), Dr. Yang (pain specialist) within a week of discharge. Please get a chest X-ray taken before you see Dr. Brown. 3. Please call and make an appointment at [facility] unit within a week of discharge. 4. Follow up with Dr. Camp (orthopedist) if your right hip pain persists or worsens. 5. Take medications as prescribed and instructed. Diet Continue normal diet: Yes Activity Activity Limited to: Weight bear as tolerated Acute Coronary Syndrome Inclusion Criteria At DC or during hospital stay patient has or had the following: ACS DIAGNOSIS No Discharge Core Measures Meds if any: Prescribed or Continued at Discharge Meds if any: NOT Prescribed or Continued at Discharge Congestive Heart Failure Inclusion Criteria At DC or during hospital stay patient has or had the following: CHF DIAGNOSIS No Discharge Core Measures Meds if any: Prescribed or Continued at Discharge Meds if any: NOT Prescribed or Continued at Discharge Cerebrovascular accident Inclusion Criteria At DC or during hospital stay patient has or had the following: CVA/TIA Diagnosis No Discharge Core Measures Meds if any: Prescribed or Continued at Discharge Meds if any: NOT Prescribed or Continued at Discharge Venous thromboembolism Inclusion Criteria VTE Diagnosis No VTE Type NONE VTE Confirmed by (Test) NONE Discharge Core Measures - Per Current guidelines, there needs to be overlap - treatment for the first 5 days of Warfarin therapy. - If discharged on Warfarin prior to 5 days of - overlap therapy, the patient will need to be - assessed for post discharge needs including - *Post discharge parental anticoagulation - *Warfarin and/or parental anticoagulation education - *Follow up date to check INR post discharge At least 5 days overlap therapy as Inpatient No Meds if any: Prescribed or Continued at Discharge Note: Overlap Therapy is Warfarin and Anticoagulant Meds if any: NOT Prescribed or Continued at Discharge Meds if any: NOT Prescribed or Continued at Discharge
[2016-05-22] MEDS ORDERED: OXACILLIN SODIUM2 G2 IV (09:35)
[2016-05-22] MEDS ORDERED: FERROUS SULFAT325 M2 PO (10:30)
[2016-05-22 15:49] VITALS: BP 126/80
--- NOTE | 2016-05-22 20:30 | NUR ---
AT THIS TIME, PT STATING "I AM GOING TO FREAK OUT" "I NEED IV DILAUDID, IT IS THE ONLY THING THAT WORKS FOR MY PAIN" "CALL THE INTERNS MANY TIMES YOU CAN, I AM GOING TO HAVE AN ANXIETY ATTACK". THIS RN CALLED MACHINE TURNER SWETHA AND NOTIFIED HER OF PTS COMPLAINTS. ONE TIME DILAUDID ORDER 0.6MG IV ORDERED AND 0.5MG OF IV ATIVAN ORDERED. THIS RN ADMINISTERED PTS MEDICATIONS. PT STATED ON PHONE "THEY AREN'T GIVING ME ENOUGH MEDICATIONS, THEY AREN'T MAKING ME COMFORTABLE". PT STATED "I WOULD LIKE TO SPEAK TO THE MACHINE TURNER" MACHINE TURNER SWETHA NOTIFIED. TO COME AND SPEAK WITH PT. WILL CONTINUE TO MONITOR.
[2016-05-22 22:51] VITALS: BP 120/70
--- NOTE | 2016-05-22 23:58 | Event Note ---
Event Note Event Note: Pt received roxicodone around 8pm and was still in severe pain 2 hours later. She was crying and anxious. With 1 time 0.5 mg IV ativan and 0.6 mg IV dilaudid, she was able to sleep. Around midnight, she was awake and again crying in pain, and anxious. She complains of pain most severe on the right hip, pleuritic chest pain when she breathe, and right and left shoulder pain. She also reported feeling sad that her family has not been coming to see her because they are busy working. Her dad has her baby but has not been bringing her to the hospital. She is anxious about going to [facility] but knows that it is the best discharge disposition for her. She also reports "feeling anxious just being on this hospital bed" She reports that the roxicodone does not help at all. She is aware that medicating her pain with IV dilaudid might prolong her hospital stay. She refused to try other medications for pain, including baclofen. I discontinued her roxicodone, i told the nurse to not give the midnight dose. I gave her another 0.5 mg of IV ativan and 0.6 mg of IV dilaudid. At 1AM, she is still crying and wants to have a total of 1 mg of IV dilaudid for her pain. I ordered another 0.4 mg of IV dilaudid once. At 630am, nurse called and said a friend visited her in the middle of the night and since then she has been asleep and no longer complaining of pain. She is arousable. There is a possibility of the friend could have given her medications.
--- NOTE | 2016-05-23 04:30 | NUR ---
NURSING NOTE: MD SWETHA FRY ON UNIT TO CHECK ON PT. PT CURRENTLY SLEEPING. PER , DO NOT WAKE PT FOR 0430 IV ABX. ABX TO BE ADMINISTER WHEN PT AWAKES.
--- NOTE | 2016-05-23 06:24 | PN- Housestaff ---
MARLENE FARFAN,MICHEL 05/23/16 0624: Subjective Follow-up For: Bacteremia Right hip pain Anemia Subjective: Patient seen and examined at bedside. No events reported overnight. Patient continues to complain of right hip pain despite increasing Roxicodone to 15mg Q4 yesterday. She is asking for IV Dilaudid, no less than 1mg. No acute complaints otherwise. Remains aferbile. Eating well without constipation. Denies any chest pain, palpitations, short of breath, fever, chills, nausea, vomiting, abdominal pain, diarrhea. Review of Systems Constitutional: Reports: see HPI. Objective Last 24 Hrs of Vital Signs/I&O Vital Signs Date Time Temp Pulse Resp B/P Pulse O2 O2 Flow FiO2 Ox Delivery Rate 05/22 2350 80 120/70 05/22 2251 98.0 80 20 120/70 91 Room Air 05/22 1549 98.0 79 20 126/80 91 05/22 1511 Room Air 2.0L 05/22 1507 94 126/80 05/22 0800 Room Air Intake & Output 05/23 0800 05/23 0000 05/22 1600 Intake Total 820 162 2182 Output Total 400 Balance 658 017 0060 Intake, IV 300 130 450 Intake, Oral 635 322 9476 Output, Urine 400 Physical Exam General Appearance: Alert, Oriented X3, Cooperative, No Acute Distress Other Physical Findings: Skin cellulitis healing well on the right shoulder with no oozing or drainage, no signs of infection around the Pro-line insertion site without drainage/ erythema/tenderness. 4 x 2 unstageable pressure ulcer in the coccyx - moist yellow slough with periwound edge light purple discolored hue and scant drainage. HEENT: Mucous Membr. moist/pink Cardiovascular: Regular Rate, Normal S1, Normal S2, No Murmurs, Gallops, Rubs Pulmonary: CTA, no crackles/rales/rhonchi Abdomen: Normal Bowel Sounds, Soft, Mild Diffuse Tenderness to Palpation, Percutaneous Biliary Catheter with no leakage or signs of infection MSK: severe pain in the right hip Extremities: No Clubbing, No Cyanosis, No Edema Current Medications: Current Medications Sig/Shahla Start time Last Medication Dose Route Stop Time Status Admin Albuterol Sulfate 2 PUF Q4-6 PRN PRN 05/06 0100 AC INH Baclofen 10 MG Q6P PRN 05/08 2030 AC 05/13 PO 0859 Clonidine 0.1 MG Q8 05/08 2200 AC 05/22 PO 2350 Dicyclomine HCl 20 MG 4 TIMES/DAY PRN 05/08 2030 AC PO Diphenhydramine HCl 25 MG Q6P PRN 05/19 1200 AC 05/23 PO 0121 Ferrous Sulfate 325 MG TID 05/21 1600 AC 05/22 PO 2350 Heparin Sodium 5,000 UNIT Q8 05/06 0600 AC 05/21 (Porcine) SC 0547 Hydromorphone HCl 0.4 MG ONCE ONE 05/23 0100 DC 05/23 IV 05/23 010 0121 Hydromorphone HCl 0.6 MG ONCE ONE 05/22 2345 DC 05/23 IV 05/22 234 0021 Hydromorphone HCl 0.6 MG ONCE ONE 05/22 2030 DC 05/22 IV 05/22 Hydromorphone HCl 1 MG ONCE ONE 05/22 1430 DC 05/22 IV 05/22 1431 1506 Hydromorphone HCl 1 MG ONCE ONE 05/22 0900 DC 05/22 IV 05/22 0901 0910 Hydromorphone HCl 1 MG ONCE ONE 05/22 0830 DC 05/22 IV 05/22 0831 0840 Hydromorphone HCl 1 MG Q4P PRN 05/21 1430 GA 05/22 IV 0510 Hydroxyzine HCl 100 MG Q6-PRN PRN 05/13 1545 05/20 PO 2247 Insulin Aspart 0 TIDAC 05/20 1700 05/22 LA 1814 Insulin Detemir 25 UNITS ONCE ONE 05/22 2315 DC 05/22 SC 05 2316 2351 Insulin Detemir 50 UNITS BID 05/06 1000 05/22 SC 1113 Lorazepam 0.5 MG ONCE ONE 05/22 2345 DC 05/23 IV 05/22 2346 0021 Lorazepam 0.5 MG ONCE ONE 05/22 2030 DC 05/22 IV 05/22 Lorazepam 1 MG ONCE ONE 05/22 1130 DC 05/22 IV 05/22 1131 1125 Magnesium Chloride 64 MG DAILY 05/21 1246 05/22 PO 1113 Oxacillin Sodium 2,000 MG Q4H 05/23 0030 05/23 Sodium Chloride 100 ML IV 0625 Oxacillin Sodium 2,000 MG Q4H 05/20 1800 DC 05/22 Sodium Chloride 100 ML IV 2032 Oxycodone HCl 15 MG Q4 HRS NEEDED PRN 05/22 1030 DC 05/22 PO 1813 Oxycodone HCl 15 MG Q6P PRN 05/21 1430 DC 05/22 PO 0351 Oxycodone/ 1 TAB Q4P PRN 05/21 0000 AC Acetaminophen PO Pregabalin 150 MG BID 05/06 0046 AC 05/22 PO 2351 Last 24 Hrs of Lab/Haris Results Last 24 Hrs of Labs/Mics: Laboratory Tests 05/23/16 0625: CBC w Diff Pending, WBC Pending, RBC Pending, Hgb Pending, Hct Pending, MCV Pending, MCH Pending, RDW Pending, Plt Count Pending, MPV Pending, PUBS MCHC Pending Assessment/Plan Assessment: Ms. Urias is 40-year-old female with a past medical history of osteomyelitis of pubis, necrotizing fasciitis of the perineum, hysterectomy, colostomy reversed, left renal abscess, C. difficile colitis,anxiety, depression, chronic pain disorder,chronic back pain,chronic anemia, poorly controlled IDDM 2, DKA, recent fall with minimal displaced pelvic fracture, right shoulder cellulitis s/ p incision and drainage on oxacillin to finish a course of 4 weeks (untill May 12) discharged 04/18/16, presenting with a chief complaint of worsening right pelvic and hip pain for 2 days. # S. aureus bacteremia Patient found to be septic on admission with fever, tachycardia and first set of blood cultures growing staph aureus. Patient was placed on vancomycin in addition to oxacillin on which patient had already been for cellulitis prior the this admission. Patient went into a septic shock on 05/06 which resolved with aggressive IVF resucsitation. Initial blood cultures and a series of repeat bcx' s grew MSSA. TTE and MONICA negative for endocarditis. Blood culture from the Pro line grew GPC before the peripheral line. This raised the suspicion that the source of infection could be from the Pro-line. Blood cultures from 05/12 growing GNR. Pro-line removed on 05/13. Tip of the catheter growing GNR, GPC, and staph coag negative. Repeat blood cultures from 05/13 and 12/29 NGTD - MRI pelvis (05/07): - Bone marrow edema within the pubic rami extending to the right acetabulum compatible with posttraumatic inflammatory change. Soft tissue edema surrounds the rami fractures without evidence of a focal, organized fluid collection in this region. Small right hip joint effusion nonspecific but possibly indicative of early infectious arthritis. New Pro-line placement on 05/20. - WBC scan (05/09): Grossly unremarkable except for moderately intense diffuse lung activity (nonspecific), possibly due to a diffuse inflammatoryprocess in the lungs * ID consulted, follow recs * Continue IV oxacillin - if periph access cannot be established, start IM CTX 1g daily * To be discharged on IV oxacillin until 06/10/16 * Follow wound care recs # Chronic pain syndrome Patient carries a hx of chronic pain disorder. Patient does have a fracture in the right hip from a fall a month ago. Ortho saw the patient and recommended conservative management without any further interventions at that time. Ortho was contacted again on 05/13 and no interventions were recommended. * Cont Roxicodone to 15mg PO Q4 PRN * Minimize IV narcotics # Anemia most likely 2/2 iron deficiency and possibly acute GI blood loss Patient's hemoglobin dropped to 7.1 on 05/22. Hgb dropped to 6.9 despite receiving 1 unit of pRBC. She received 2 additional units with an appropriate response. [place] stool test negative. Iron studies significant for low Fe and slightly elevated TIBC. Patient was transfused a total of 3 units on 05/22. Most likely anemia of chronic disease vs. ACBL vs. Fe deficiency. * Check CBC daily, trend H/H * Cont iron supplementation * Transfuse if Hgb < 7 # Hyponatremia - resolved Patient presented with a sodium level of 114 (corrected Na 122), consistent with acute on chronic hyponatremia. This is most attributable to pseudohyponatremia in the setting of hyperglycemia, possibly with a component of SIADH/sepsis/poor intake. Patient is currently has no significant neurological symptoms. Serum & urine osmolality WNL. # Poor controlled diabetes * Novolog SSI with accuchecks * Continue Levemir 50U SQ BID # Mood disorders * Psych consulted, appreciate recs * Clonidine 0.1 mg PO Q8P, if opiate withdrawal symptoms. Hold Clonidine for blood pressure less than 90 mmHg systolic, less than 60 mmHg diastolic or pulse less than 55 BPM. * Baclofen 10 mg PO every 6 hours, as needed, for muscle cramps. * Dicyclomine 20 mg PO every 6 hours, as needed, for GI cramps. * Hydroxyzine 100 mg PO every 6 hours, as needed, for anxiety and itching. # Diet regular diet # Moderate-Severe pain pathway # DVT prophylaxis heparin subcutaneous # Full code Problem List: 1. Diabetes mellitus 2. Cellulitis 3. Sepsis 4. Pubic ramus fracture 5. Right hip pain 6. Bacteremia Pain Ratin Pain Location: R hip pain Pain Goal: Pain 4 or less Pain Plan: Roxicodone to 15mg PO Q4 PRN Tomorrow's Labs & Rationales: None - discharge Consulting Request: Consulting Specialty: Infectious Disease Consulting Physician: Gerald Dunbar MD Reason for Consult: bacteremia RAFIA FARFAN,PAULETTESARINAPUJA 05/23/16 1730: Attending MD Review Statement Attending Statement Attending MD Statement: examined this patient, discuss w/resident/PA/MARINE PROPULSION TECHNICIAN, agreed w/resident/PA/MARINE PROPULSION TECHNICIAN, reviewed EMR data (avail), discussed with nursing, discussed with case mgmt, amended to note Attending Assessment/Plan: Patient seen and examined. His be medically stable for discharge to the fdc facility due to deconditioning and unsafe ambulation from her pelvic fracture and to complete her antibiotic course. A bed has been obtained for her at a fdc facility however bilingual patient support caseworker are awaited state approval. Since transition to oral analgesia and doubling of her home dose patient has a very adamant on returning to IV analgesics. She becomes very emotional and prompted Several calls to housestaff overnight. Pain management consult was obtained this morning to assist in optimizing her pain control. We have recommended discontinuing IV Dilaudid and prescribing Percocet. Patient however remains very adamant in stating on IV analgesics. She becomes very emotional and coop provided with IV Dilaudid she becomes very calm and off was no complaints. Recommendations for lumbar CT and MRI noted however patient complains of pain in the lower pelvic region at the site of her pelvic fracture. Her right shoulder wound continues to heal appropriately. Recommendations: -Maintain patient on Dilaudid 1 mg IV every 4 hours. -Reduce the Roxicodone back to home dose of 15mg 3 times a day. -Add Flexeril to her regimen. -Continue bowel regimen. -Continue IV antibiotics. -Nursing staff to mobilize patient daily. -Discharge to fdc facility once approval is obtained.
[2016-05-23 08:00] LABS: ABSOLUTE BASOPHIL COUNT 0.1 /CUMM (0.0-0.2); ABSOLUTE EOSINOPHIL COUNT 0.7 /CUMM (0.0-0.7); ABSOLUTE GRANULOCYTE CT 2.5 /CUMM (1.4-6.5); ABSOLUTE LYMPH COUNT 1.5 /CUMM (1.2-3.4); ABSOLUTE MONOCYTE COUNT 0.5 /CUMM (0.10-0.60); BASOPHIL % 1.2 % (0.0-2.0); EOSINOPHIL % 12.9 % (0-5); GRANULOCYTE % 47.7 % (42.2-75.2); MEAN CORPUSCULAR HGB 25.5 PG (27.0-31.0); MEAN CORPUSCULAR HGB CONC 32.5 G/DL (33.0-37.0); MEAN CORPUSCULAR VOLUME 78.3 FL (81.0-99.0); MEAN PLATELET VOLUME 8.3 FL (7.4-10.4); PLATELET COUNT 258 /CUMM (130-400); RBC DISTRIBUTION WIDTH 20.6 % (11.5-14.5); RED BLOOD CELL CT 3.96 /CUMM (4.20-5.40); WHITE BLOOD CELL COUNT 5.3 /CUMM (4.8-10.8)
--- NOTE | 2016-05-23 08:00 | NUR ---
PT C/O ALL OVER PAIN 10/10 THIS MORNING, NOT RELIEVED BY REPOSITIONING. REPORTED TO DR ROSARIO, WHO ORDERED ONE TIME DOSE OF 1MG IV DILAUDID.
[2016-05-23 08:10] VITALS: BP 122/72
--- NOTE | 2016-05-23 08:10 | PN- Wound Care ---
Subjective Subjective: Patient continues to complain of pain. Right shoulder wound continues to heal nicely Objective Vital Signs and I&Os Vital Signs Result Date Time B/P 120/70 05/22 2349 Pulse 80 05/22 2349 Pulse Ox 91 05/22 2250 O2 Delivery Room Air 05/22 2250 Temp 98.0 05/22 2250 Resp 20 05/22 2250 O2 Flow Rate 2.0L 05/22 1511 Intake & Output 05/23 0000 05/22 1600 05/22 0800 Intake Total 630 1750 1350 Output Total 400 350 Balance 630 1350 1000 Intake, Blood 500 Product Intake, IV 130 450 400 Intake, Oral 500 1300 450 Number 2 Bowel Movements Output, Urine 400 350 Exam of the right shoulder shows a small dry eschar measuring approximately 0.5 x 0.8 cm the remainder of the wound is epithelialized Impression/Plan Impression/Plan Impression/Plan: 40-year-old woman with diabetes multiple medical problems with recurrent staph bacteremia. The right shoulder ulcer is healing well with minimal drainage and no evidence of local infection. The wound appears overly dry with DC Aquacel Ag and begin Xeroform daily
--- NOTE | 2016-05-23 11:34 | NUR ---
09:30- OPEN AREA TO R AXILLARY NOTED: 3.0X 1.2CM. PER PT, PT HAS BEEN PICKING AND SCRATCHING AREA. SKIN/WOUND MAN UPDATED WITH OPEN AREAS TO BODY. PT CONTINUES TO REFUSE SIZEWISE MATTRESS. DR. ROSARIO NOTIFIED OF ABOVE.
[2016-05-23 14:16] VITALS: BP 120/80
--- NOTE | 2016-05-23 15:26 | NUR ---
PT HAD TWO EPISODES OF URINARY INCONTINENCE TODAY. DENIES BURNGING WITH URINATION. DR ROSARIO NOTIFIED, WILL CONTINUE TO MONITOR.
--- NOTE | 2016-05-23 16:57 | Cons- Pain Management ---
General Information and HPI Consulting Request Date of Consult: 05/23/16 Requested By: ERIBERTO MORATAYA M.D History of Present Illness: I was asked to consult on this patient who was admitted to the floor for hyperglycemia and right hip pain and possible endocarditis. Found to be laying in her bed comfortably on arrival. She has a history of uncontrolled Type II diabetes. Alert and oriented X3. She states today that she has pain in her right hip from a fracture. She also complains of body-wide but she is very unspecific to where this body wide pain is. She is currently not in pain management. She states she gets medications from any proivder willing to prescribe her pain medication. Allergies/Medications Allergies: Coded Allergies: codeine (Intermediate, HIVES 05/05/16) nickel (Intermediate, RASH 05/05/16) adhesive tape (Mild, RASH 05/05/16) duloxetine (Intermediate, NAUSEA 05/05/16) hydrocodone (GI UPSET (ESOPHAGITIS) 05/05/16) ibuprofen (GI UPSET (ESOPHAGITIS) 05/05/16) Home Med List: Albuterol Sulfate (Proair Hfa) 90 MCG HFA.AER.AD 2 PUF INH Q4-6 PRN PRN SOB ( Reported) Clonidine HCl 0.1 MG TABLET 0.1 MG PO Q8 Anxiety Stop if you feel lightheaded or dizzy. Stop if your systolic blood pressure is below 90. Diphenhydramine HCl (Benadryl) 25 MG CAPSULE 1 CAP PO Q6 PRN ITCHING ( Reported) Ergocalciferol (Vitamin D2) (Drisdol) 50,000 UNIT CAPSULE 1 CAP PO QW Supplement Please take one of these medications every week for the next eight weeks. After that, you will be required to take one every two weeks for mainainance of your vitamin D Levels. Ferrous Sulfate 325 MG (65 MG IRON) TABLET.DR 325 MG PO TID IRON DEFICIENCY Hydrocortisone Acetate (Micort-Hc) 2.5 % CREAM.APPL 1 DEMETRA TOP TID ITCHING ( Reported) Hydroxyzine HCl 50 MG TABLET 1 TAB PO TID PRN itching Hydroxyzine HCl 50 MG TABLET 100 MG PO Q6-PRN PRN Anxiety or Itching Insulin Aspart (Novolog) 100 UNIT/ML VIAL 0 SC SEE ADMIN CRITERIA Diabetes Your insulin coverage was changed while in hospital. Sliding Scale Blood Sugar Less that 80mg/dl Initiate Hypoglycemia protocol 80-150 mg/dl 12 units 151-200 mg/dl 14 units 201-250 mg/dl 16 units 251-300 mg/dl 18 units 301-350 mg/dl 20 units 351-400 mg/dl 22 units More than 400 mg/dl 24 units call MD Please check your blood sugar at least three times a day. Inform your storage facility rental clerk about this change. Insulin Detemir (Levemir) 100 UNIT/ML VIAL 50 UNITS SC BID DM (Reported) Ondansetron HCl (Zofran) 4 MG TABLET 1 TAB PO Q6-8P PRN nausea Oxacillin Sodium 2 GRAM VIAL.PORT 2,000 MG IV Q4 Sepsis Please dose 2000mg. Q4. IV. 100ml 0.9% NaCL Last dose to be administered on 06/10/16. Oxycodone HCl (Roxicodone) 15 MG TABLET 1 TAB PO Q4 HRS NEEDED PRN SEVERE PAIN Pregabalin (Lyrica) 150 MG CAPSULE 1 CAP PO BID NEUROPATHY (Reported) Propranolol HCl 20 MG TABLET 1 TAB PO BID ANXIETY (Reported) Past History Medical History Neurological: NONE EENT: hearing loss Cardiovascular: NONE Respiratory: asthma Gastrointestinal: necrotizing fasciitis of the perineum Hepatic: NONE Renal: left pararenal abscess Musculoskeletal: OSTEOMYELITIS OF PUBIS PUBIS FX Psychiatric: anxiety, chronic pain disorder, depression, opioid dependence, POLYSUBSTANCE ABUSE NARCOTIC DEPENDENCE SUICIDAL IDEATION Endocrine: INSULIN DEPENDENT DIABETES - noncompliant Blood Disorders: anemia Cancer(s): NONE RIBBON WEAVER/Reproductive: ECTOPIC Other Medical Hx Left axillary abscess secondary to MSSA status post I&D November 2014 Right deltoid abscess March 2016 secondary to MSSA Surgical History Surgical History: , hysterectomy, D&C colostomy with reversal left axillary abscess November 2014 Family History Relations & Conditions If Any FATHER (diabetese mellitis Currently 06/16/2015- unable to get any meaningful FHx from patient, s/p drug OD.). FH: cirrhosis Psychosocial History Where Do You Live? Home Who Do You Live With? with friend Primary Language: Romanian Smoking Status: Current Everyday Smoker ETOH Use: denies use Illicit Drug Use: denies illicit drug use Living Will? no Power of Supervisor Pig Machine/HCP? no Functional Ability ADLs Independent: dressing, eating, toileting, bathing. Ambulation: independent IADLs Independent: shopping, housework, finances, food prep, telephone, transportation , medication admin. Educational History Highest Level of Education: some college Highest Grade Completed: 2 years comm college Special Communication Needs: None reported Exam & Diagnostic Data Last 24 Hrs of Vitals/I&Os: Vital Signs Date Time Temp Pulse Resp B/P Pulse O2 O2 Flow FiO2 Ox Delivery Rate 05/23 1627 68 120/80 05/23 1416 98.2 80 20 120/80 96 05/23 0851 60 122/72 05/23 0810 98.8 60 20 122/72 98 05/22 2350 80 120/70 05/22 2251 98.0 80 20 120/70 91 Room Air Intake & Output 05/23 1600 05/23 0800 05/23 0000 Intake Total 900 700 630 Output Total Balance 900 700 630 Intake, IV 300 300 130 Intake, Oral 600 400 500 Assessment/Plan Assessment/Plan: The following is my reccommendations for this patient: - D/C IV Dilaudid - Continue percocet 5mg Q6 hours - Consider CT scan or MRI dedicated to Lumbar spine due to L4-L5 herniated disc with severe disc degeneration seen on Pelvic CT scan - Consider steriod dose pack obviouslly control for hyperglycemia - Consider Flexeril 10mg QHS PRN fo rmuscle spasms - Increase Physical Therapy with dedicated lumbar spine ROM and exercises - Needs referall for outpatient pain management if chronic pain continues (not a candidiate for [facility] because we do not accept medicaid [place]) - D/C to home or rehab [facility] Consult Acknowledgment - Thank you for your consult request.
[2016-05-23 22:12] VITALS: BP 110/80
[2016-05-24 06:37] VITALS: BP 120/70
--- NOTE | 2016-05-24 07:27 | PN- Housestaff ---
See Addendum Subjective Follow-up For: Bacteremia Right hip pain Anemia Subjective: Patient seen and examined at bedside. Patient starts crying as soon as I come into the room, complaining of right hip pain. Patient was resumed on IV Dilaudid 1mg Q4P yesterday. She is asking for her next IV Dilaudid to be given now. She also says she is "about to have panic attack," asking for IV Ativan. No new complaints. Remains aferbile. Eating well without constipation. Denies any chest pain, palpitations, short of breath, fever, chills, nausea, vomiting, abdominal pain, diarrhea. No events reported overnight. Review of Systems Constitutional: Reports: see HPI. Objective Last 24 Hrs of Vital Signs/I&O Vital Signs Date Time Temp Pulse Resp B/P Pulse O2 O2 Flow FiO2 Ox Delivery Rate 05/24 637 97.0 70 18 132/74 05/24 0637 98.1 82 20 120/70 92 Room Air 05/23 2212 98.1 75 18 110/80 93 Room Air 05/23 2205 78 130/68 05/23 1627 68 120/80 05/23 1416 98.2 80 20 120/80 96 05/23 0851 60 122/72 Intake & Output 05/24 1600 05/24 0800 05/24 0000 Intake Total 100 Output Total 700 700 Balance -700 -600 Intake, IV 100 Number 1 Bowel Movements Output, Urine 700 700 Physical Exam General Appearance: Alert, Oriented X3, Cooperative, No Acute Distress Other Physical Findings: Skin cellulitis healing well on the right shoulder with no oozing or drainage, no signs of infection around the Pro-line insertion site without drainage/ erythema/tenderness. 4 x 2 unstageable pressure ulcer in the coccyx - moist yellow slough with periwound edge light purple discolored hue and scant drainage. HEENT: Mucous Membr. moist/pink Cardiovascular: Regular Rate, Normal S1, Normal S2, No Murmurs, Gallops, Rubs Pulmonary: CTA, no crackles/rales/rhonchi Abdomen: Normal Bowel Sounds, Soft, Mild Diffuse Tenderness to Palpation, Percutaneous Biliary Catheter with no leakage or signs of infection MSK: severe pain in the right hip Extremities: No Clubbing, No Cyanosis, No Edema Current Medications: Current Medications Sig/Shahla Start time Last Medication Dose Route Stop Time Status Admin Albuterol Sulfate 2 PUF Q4-6 PRN PRN 05/06 0100 AC INH Baclofen 10 MG Q6P PRN 05/08 2030 AC 05/13 PO 0859 Clonidine 0.1 MG Q8 05/08 2200 AC 05/24 PO 0638 Cyclobenzaprine HCl 10 MG AT BEDTIME 05/23 2200 AC 05/23 PO 2206 Dicyclomine HCl 20 MG 4 TIMES/DAY PRN 05/08 2030 AC PO Diphenhydramine HCl 25 MG Q6P PRN 05/19 1200 AC 05/24 PO 0110 Ferrous Sulfate 325 MG TID 05/21 1600 AC 05/23 PO 1627 Heparin Sodium 5,000 UNIT Q8 05/06 0600 AC 05/21 (Porcine) SC 0547 Hydromorphone HCl 1 MG Q4P PRN 05/23 2245 AC 05/24 IV 0639 Hydromorphone HCl 1 MG Q4P PRN 05/23 1430 DC 05/23 IV 1845 Hydromorphone HCl 4 MG .STK-MED ONE 05/23 0845 DC IV 05/23 0846 Hydromorphone HCl 1 MG ONCE ONE 05/23 0830 DC 05/23 IV 05/23 0831 0850 Hydroxyzine HCl 100 MG Q6-PRN PRN 05/13 1545 AC 05/20 PO 2247 Insulin Aspart 0 TIDAC 05/20 1700 AC 05/23 SC 1252 Insulin Detemir 50 UNITS BID 05/06 1000 AC 05/23 SC 1046 Lorazepam 1 MG ONCE ONE 05/23 1100 DC 05/23 IV 05/23 1101 1113 Magnesium Chloride 64 MG DAILY 05/21 1246 AC 05/23 PO 1046 Oxacillin Sodium 2,000 MG Q4H 05/23 1030 AC 05/24 Sodium Chloride 100 ML IV 0642 Oxacillin Sodium 2,000 MG Q4H 05/23 0030 DC 05/23 Sodium Chloride 100 ML IV 0625 Oxycodone HCl 15 MG Q8P PRN 05/23 1730 AC PO Oxycodone/ 1 TAB Q4P PRN 05/21 0000 DC 05/23 Acetaminophen PO 1252 Pregabalin 150 MG BID 05/06 0046 AC 05/23 PO 1045 Assessment/Plan Assessment: Ms. Landino is 40-year-old female with a past medical history of osteomyelitis of pubis, necrotizing fasciitis of the perineum, hysterectomy, colostomy reversed, left renal abscess, C. difficile colitis,anxiety, depression, chronic pain disorder,chronic back pain,chronic anemia, poorly controlled IDDM 2, DKA, recent fall with minimal displaced pelvic fracture, right shoulder cellulitis s/ p incision and drainage on oxacillin to finish a course of 4 weeks (untilMay 12) discharged 04/18/16, presenting with a chief complaint of worsening right pelvic and hip pain for 2 days. # S. aureus bacteremia Patient found to be septic on admission with fever, tachycardia and first set of blood cultures growing staph aureus. Patient was placed on vancomycin in addition to oxacillin on which patient had already been for cellulitis prior the this admission. Patient went into a septic shock on 05/06 which resolved with aggressive IVF resucsitation. Initial blood cultures and a series of repeat bcx' s grew MSSA. TTE and MONICA negative for endocarditis. Blood culture from the Pro line grew GPC before the peripheral line. This raised the suspicion that the source of infection could be from the Pro-line. Blood cultures from 05/12 growing GNR. Pro-line removed on 05/13. Tip of the catheter growing GNR, GPC, and staph coag negative. Repeat blood cultures from 05/13 and 05/15 NGTD - MRI pelvis (05/07): - Bone marrow edema within the pubic rami extending to the right acetabulum compatible with posttraumatic inflammatory change. Soft tissue edema surrounds the rami fractures without evidence of a focal, organized fluid collection in this region. Small right hip joint effusion nonspecific but possibly indicative of early infectious arthritis. New Pro-line placement on 05/20. - WBC scan (05/09): Grossly unremarkable except for moderately intense diffuse lung activity (nonspecific), possibly due to a diffuse inflammatoryprocess in the lungs * ID consulted, follow recs * Continue IV oxacillin - if periph access cannot be established, start IM CTX 1g daily * To be discharged on IV oxacillin until 06/10/16 * Follow wound care recs # Chronic pain syndrome Patient carries a hx of chronic pain disorder. Patient does have a fracture in the right hip from a fall a month ago. Ortho saw the patient and recommended conservative management without any further interventions at that time. Ortho was contacted again on 05/13 and no interventions were recommended. * Cont Roxicodone to 15mg PO Q8P with IV Dilaudid 1mg IV Q4P * Minimize IV narcotics * Pain management was consulted - recommended discontuing IV Dilaudid # Anemia most likely 2/2 iron deficiency - Resolved Patient's hemoglobin dropped to 7.1 on 05/22. Hgb dropped to 6.9 despite receiving 1 unit of pRBC. She received 2 additional units with an appropriate response. Guaic stool test negative. Iron studies significant for low Fe and slightly elevated TIBC. Patient was transfused a total of 3 units on 05/22. Most likely anemia of chronic disease vs. ACBL vs. Fe deficiency. * Cont iron supplementation * Transfuse if Hgb < 7 # Hyponatremia -Resolved Patient presented with a sodium level of 114 (corrected Na 122), consistent with acute on chronic hyponatremia. This is most attributable to pseudohyponatremia in the setting of hyperglycemia, possibly with a component of SIADH/sepsis/poor intake. Patient is currently has no significant neurological symptoms. Serum & urine osmolality WNL. # Poor controlled diabetes * Novolog SSI with accuchecks * Continue Levemir 50U SQ BID # Mood disorders * Psych consulted, appreciate recs * Clonidine 0.1 mg PO Q8P, if opiate withdrawal symptoms. Hold Clonidine for blood pressure less than 90 mmHg systolic, less than 60 mmHg diastolic or pulse less than 55 BPM. * Baclofen 10 mg PO every 6 hours, as needed, for muscle cramps. * Dicyclomine 20 mg PO every 6 hours, as needed, for GI cramps. * Hydroxyzine 100 mg PO every 6 hours, as needed, for anxiety and itching. # Diet regular diet # Moderate-Severe pain pathway # DVT prophylaxis heparin subcutaneous # Full code Problem List: 1. Right hip pain 2. Cellulitis 3. Full code status 4. DVT prophylaxis Pain Ratin Pain Location: Right hip Pain Goal: Pain 4 or less Pain Plan: Dilaudid 1mg IV Q4P Roxicodone to 15mg PO Q8 PRN Tomorrow's Labs & Rationales: None - discharge Consulting Request: Consulting Specialty: Infectious Disease Consulting Physician: Gerald Dunbar MD Reason for Consult: bacteremia
--- NOTE | 2016-05-24 10:15 | NUR ---
PT C/O SEVERE PAIN 10/10 IN R HIP AT 0930, PRN OXYCODONE GIVEN WITH REPORTED POOR EFFECT. DR ROSARIO IN TO SEE PT. DR ROSARIO SAID OKAY TO GIVEN PRN DILAUDID 30 MIN EARLY THAN DUE, AND ORDERED OBTAINED FOR 0.5MG ATIVAN IV X1. AWARE THAT PT HAD JUST RECIEVED OXYCODONE 15MG AND BENADRYL AT 0930.
--- NOTE | 2016-05-24 10:37 | NUR ---
PHYSICAL THERAPY: Pt HYSTERICAL THIS AM AND SPOKE WITH NURSING REPORTING SHE GOT PAIN MEDS BUT THE Pt WANTED DIFFERENT PAIN MEDS (DILUADED). HOWEVER, THIS Pt WAS NOT DUE UNTIL 10:30AM. Pt REFUSING THERAPY REPORTING "I JUST GOT MY PAIN MEDS I JUST WANT TO RELAX NOW". PT WILL NOT RETURN PER Pt NOT RELIABLE PER PREVIOUS NOTE.
[2016-05-24 14:52] VITALS: BP 120/62
[2016-05-24 21:53] VITALS: BP 143/80
[2016-05-25 06:00] VITALS: BP 118/72
[2016-05-25 08:28] LABS: ABSOLUTE BASOPHIL COUNT 0.1 /CUMM (0.0-0.2); ABSOLUTE GRANULOCYTE CT 2.4 /CUMM (1.4-6.5); ABSOLUTE LYMPH COUNT 1.8 /CUMM (1.2-3.4); ABSOLUTE MONOCYTE COUNT 0.6 /CUMM (0.10-0.60); BASOPHIL % 0.9 % (0.0-2.0); GRANULOCYTE % 42.4 % (42.2-75.2)
[2016-05-25 08:59] LABS: ABSOLUTE EOSINOPHIL COUNT 0.8 /CUMM (0.0-0.7); EOSINOPHIL % 14.9 % (0-5); MEAN CORPUSCULAR HGB 25.4 PG (27.0-31.0); MEAN CORPUSCULAR HGB CONC 32.2 G/DL (33.0-37.0); MEAN CORPUSCULAR VOLUME 79.1 FL (81.0-99.0); MEAN PLATELET VOLUME 8.4 FL (7.4-10.4); PLATELET COUNT 281 /CUMM (130-400); RBC DISTRIBUTION WIDTH 21.1 % (11.5-14.5); RED BLOOD CELL CT 4.69 /CUMM (4.20-5.40); WHITE BLOOD CELL COUNT 5.7 /CUMM (4.8-10.8)
--- NOTE | 2016-05-25 09:01 | PN- Housestaff ---
ROCKY FARFAN,[facility] 05/25/16 0900: Subjective Follow-up For: Bacteremia Right hip pain Anemia Subjective: pt seen and examined. She was crying and c/o pain in her back and left hip. vitals otherwise in normal limits Review of Systems Constitutional: Reports: see HPI. Objective Last 24 Hrs of Vital Signs/I&O Vital Signs Date Time Temp Pulse Resp B/P Pulse O2 O2 Flow FiO2 Ox Delivery Rate 05/25 1452 98.2 68 20 120/72 98 05/25 1417 140/82 05/25 0600 97.8 91 18 118/72 93 Room Air 05/25 0512 97.8 91 18 118/72 05/24 2158 92 143/80 05/24 2153 98.0 92 20 143/80 93 Intake & Output 05/25 1600 05/25 0800 05/25 0000 Intake Total 980 250 340 Output Total 600 500 Balance 380 -250 340 Intake, IV 260 250 100 Intake, Oral 720 240 Output, Urine 600 500 Physical Exam General Appearance: Alert, Oriented X3, Cooperative Cardiovascular: Regular Rate, Normal S1, Normal S2 Lungs: Clear to Auscultation, Normal Air Movement Abdomen: Normal Bowel Sounds, Soft, No Tenderness Extremities: No Clubbing, No Cyanosis Current Medications: Current Medications Sig/Shahla Start time Last Medication Dose Route Stop Time Status Admin Albuterol Sulfate 2 PUF Q4-6 PRN PRN 05/06 0100 AC INH Baclofen 10 MG Q6P PRN 05/08 2030 AC 05/13 PO 0859 Clonidine 0.1 MG Q8 05/08 2200 AC 05/25 PO 1417 Cyclobenzaprine HCl 10 MG AT BEDTIME 05/23 2200 AC 05/24 PO 2200 Dicyclomine HCl 20 MG 4 TIMES/DAY PRN 05/08 2030 AC PO Diphenhydramine HCl 25 MG Q6P PRN 05/19 1200 AC 05/25 PO 1249 Ferrous Sulfate 325 MG TID 05/21 1600 AC 05/25 PO 1717 Heparin Sodium 5,000 UNIT Q8 05/06 0600 AC 05/25 (Porcine) SC 1416 Hydromorphone HCl 1 MG Q4P PRN 05/23 2245 AC 05/25 IV 1717 Hydroxyzine HCl 100 MG Q6-PRN PRN 05/13 1545 AC 05/20 PO 2247 Insulin Aspart 0 TIDAC 05/20 1700 05/25 [place] 1415 Insulin Detemir 50 UNITS BID 05/06 1000 AC 05/25 SC 0930 Magnesium Chloride 64 MG DAILY 05/21 1246 AC 05/25 PO 0930 Oxacillin Sodium 2,000 MG Q4H 05/23 1030 AC 05/25 Sodium Chloride 100 ML IV 1843 Oxycodone HCl 15 MG Q8P PRN 05/23 1730 AC 05/25 PO 1842 Pregabalin 150 MG BID 05/06 0046 AC 05/25 PO 0930 Last 24 Hrs of Lab/Haris Results Last 24 Hrs of Labs/Mics: Laboratory Tests 05/25/16 0510: Anion Gap 15, Estimated GFR > 60, BUN/Creatinine Ratio 32.0 H, Magnesium 1.7, CBC w Diff NO MAN DIFF REQ, RBC 4.69, MCV 79.1 L, MCH 25.4 L, RDW 21.1 H, MPV 8.4, Gran % 42.4, Lymphocytes % 31.0, Monocytes % 10.8 H, Eosinophils % 14.9 H , Basophils % 0.9, Absolute Granulocytes 2.4, Absolute Lymphocytes 1.8, Absolute Monocytes 0.6, Absolute Eosinophils 0.8, Absolute Basophils 0.1, PUBS MCHC 32.2 L Assessment/Plan Assessment: Ms. Urias is 40-year-old female with a past medical history of osteomyelitis of pubis, necrotizing fasciitis of the perineum, hysterectomy, colostomy reversed, left renal abscess, C. difficile colitis,anxiety, depression, chronic pain disorder,chronic back pain,chronic anemia, poorly controlled IDDM 2, DKA, recent fall with minimal displaced pelvic fracture, right shoulder cellulitis s/ p incision and drainage on oxacillin to finish a course of 4 weeks (untill May 12) discharged 04/18/16, presenting with a chief complaint of worsening right pelvic and hip pain for 2 days. # S. aureus bacteremia Patient found to be septic on admission with fever, tachycardia and first set of blood cultures growing staph aureus. Patient was placed on vancomycin in addition to oxacillin on which patient had already been for cellulitis prior the this admission. Patient went into a septic shock on 05/06 which resolved with aggressive IVF resucsitation. Initial blood cultures and a series of repeat bcx' s grew MSSA. TTE and MONICA negative for endocarditis. Blood culture from the Pro line grew GPC before the peripheral line. This raised the suspicion that the source of infection could be from the Pro-line. Blood cultures from 05/12 growing GNR. Pro-line removed on 05/13. Tip of the catheter growing GNR, GPC, and staph coag negative. Repeat blood cultures from 05/13 and 05/15 NGTD - MRI pelvis (05/07): - Bone marrow edema within the pubic rami extending to the right acetabulum compatible with posttraumatic inflammatory change. Soft tissue edema surrounds the rami fractures without evidence of a focal, organized fluid collection in this region. Small right hip joint effusion nonspecific but possibly indicative of early infectious arthritis. New Pro-line placement on 05/20. - WBC scan (05/09): Grossly unremarkable except for moderately intense diffuse lung activity (nonspecific), possibly due to a diffuse inflammatoryprocess in the lungs * ID consulted, follow recs * Continue IV oxacillin - if periph access cannot be established, start IM CTX 1g daily * To be discharged on IV oxacillin until 06/10/16 * Follow wound care recs # Chronic pain syndrome Patient carries a hx of chronic pain disorder. Patient does have a fracture in the right hip from a fall a month ago. Ortho saw the patient and recommended conservative management without any further interventions at that time. Ortho was contacted again on 05/13 and no interventions were recommended. * Cont Roxicodone to 15mg PO Q8P with IV Dilaudid 1mg IV Q4P * Minimize IV narcotics * Pain management was consulted - recommended discontuing IV Dilaudid # Anemia most likely 2/2 iron deficiency - Resolved Patient's hemoglobin dropped to 7.1 on 05/22. Hgb dropped to 6.9 despite receiving 1 unit of pRBC. She received 2 additional units with an appropriate response. Guaic stool test negative. Iron studies significant for low Fe and slightly elevated TIBC. Patient was transfused a total of 3 units on 05/22. Most likely anemia of chronic disease vs. ACBL vs. Fe deficiency. * Cont iron supplementation * Transfuse if Hgb < 7 # Hyponatremia -Resolved Patient presented with a sodium level of 114 (corrected Na 122), consistent with acute on chronic hyponatremia. This is most attributable to pseudohyponatremia in the setting of hyperglycemia, possibly with a component of SIADH/sepsis/poor intake. Patient is currently has no significant neurological symptoms. Serum & urine osmolality WNL. # Poor controlled diabetes * Novolog SSI with accuchecks * Continue Levemir 50U SQ BID # Mood disorders * Psych consulted, appreciate recs * Clonidine 0.1 mg PO Q8P, if opiate withdrawal symptoms. Hold Clonidine for blood pressure less than 90 mmHg systolic, less than 60 mmHg diastolic or pulse less than 55 BPM. * Baclofen 10 mg PO every 6 hours, as needed, for muscle cramps. * Dicyclomine 20 mg PO every 6 hours, as needed, for GI cramps. * Hydroxyzine 100 mg PO every 6 hours, as needed, for anxiety and itching. # Diet regular diet # Moderate-Severe pain pathway # DVT prophylaxis heparin subcutaneous # Full code Problem List: 1. Bacteremia 2. Right hip pain Pain Ratin Pain Location: right hip Pain Goal: Remain pain free Pain Plan: dilaudid Tomorrow's Labs & Rationales: bep to monitor lytes Consulting Request: Consulting Specialty: Infectious Disease Consulting Physician: Gerald Dunbar MD Reason for Consult: bacteremia [facility] 05/25/16 1509: Attending MD Review Statement Attending Statement Attending MD Statement: examined this patient, discuss w/resident/PA/SECURITY SYSTEMS INTEGRATOR, agreed w/resident/PA/SECURITY SYSTEMS INTEGRATOR, reviewed EMR data (avail), discussed with nursing, reviewed images Attending Assessment/Plan: 60-year-old female with past medical history significant for uncontrolled diverticulitis and a recent pelvic fracture is being admitted on the floor for sepsis secondary to his left shoulder cellulitis. She is currently getting IV oxacillin white PICC line. Patient is clinically stable to be discharged but is awaiting clearance from the state [facility]. He was seen and examined on the bedside and did not complain of any pain, though she had an episode of hypoglycemia which was treated with orange juice. The patient reported that she did not eat yesterday which could have provoked her hypoglycemia as she doesn't gets hypoglycemic episodes ever. Patient will remained admitted on the floor until Thursday. Patient has been receiving IV Dilaudid for her uncontrolled pain. She is also getting oral Benadryl. We will continue to monitor over the weekeekend.
[2016-05-25 09:12] LABS: HEMATOCRIT 37.1 % (37-47)
[2016-05-25 14:52] VITALS: BP 120/72
--- NOTE | 2016-05-25 15:19 | NUR ---
1000- PT REFUSES SIZEWISE BED AND ALPS. EDUCATED ON NEED FOR DVT PROPHYLAXIS. PT STATES SHE WILL TAKE HEPARIN WHEN DUE. 1400- PT HAD HEPARIN SC.
--- NOTE | 2016-05-25 20:48 | NUR ---
0730- PT BS 66- ORANGE JUICE GIVEN 0800- BS 74- PT BREAKFAST TRAY IN FRONT OF PT AND PT EATING 0900- BS 91 DR. RUTH HIDALGO NOTIFIED OF ABOVE.
[2016-05-25 22:19] VITALS: BP 132/82
--- NOTE | 2016-05-26 06:25 | PN- Housestaff ---
Subjective Follow-up For: Bactermia Chronic pain syndrome Subjective: Patient seen and examined at bedside. Patient endorses significant amount of substernal chest pain, worsened with breathing. She also reports associated dyspnea. Patient starts crying and asks for additional IV Dilaudid along with IV Ativan. Her right hip pain persists without much improvement. She repeatedly asserts that IV Dilaudid 1mg Q4P is not enough for her. She is asking for her next IV Dilaudid to be given now. Denies any chest pain, palpitations, short of breath, fever, chills, nausea, vomiting, abdominal pain, diarrhea. No events reported overnight. Review of Systems Constitutional: Reports: see HPI. Objective Last 24 Hrs of Vital Signs/I&O Vital Signs Date Time Temp Pulse Resp B/P Pulse O2 O2 Flow FiO2 Ox Delivery Rate 05/26 0956 Room Air 2.0L 05/26 0653 98.1 98 20 104/70 91 Room Air 05/25 2219 97.7 86 20 132/82 94 05/25 1452 98.2 68 20 120/72 98 05/25 1417 140/82 Intake & Output 05/26 1600 05/26 0800 05/26 0000 Intake Total 250 250 Output Total 1600 Balance -1350 250 Intake, IV 150 250 Intake, Oral 100 Output, Urine 1600 Physical Exam General Appearance: Alert, Oriented X3, Cooperative, No Acute Distress Other Physical Findings: Skin cellulitis on the right shoulder healing well with scar formation, no oozing or drainage. No signs of infection around the Pro-line insertion site without drainage/erythema/tenderness. 4 x 2 unstageable pressure ulcer in the coccyx - moist yellow slough with periwound edge light purple discolored hue and scant drainage - improving. HEENT: Mucous Membr. moist/pink Cardiovascular: Regular Rate, Normal S1, Normal S2, No Murmurs, Gallops, Rubs Pulmonary: CTA, no crackles/rales/rhonchi Abdomen: Normal Bowel Sounds, Soft, Mild Diffuse Tenderness to Palpation, Percutaneous Biliary Catheter with no leakage or signs of infection MSK: severe pain in the right hip Extremities: No Clubbing, No Cyanosis, No Edema Current Medications: Current Medications Sig/Shahla Start time Last Medication Dose Route Stop Time Status Admin Albuterol Sulfate 2 PUF Q4-6 PRN PRN 05/06 0100 AC INH Baclofen 10 MG Q6P PRN 05/08 2030 AC 05/13 PO 0859 Clonidine 0.1 MG Q8 05/08 2200 AC 05/26 PO 0626 Cyclobenzaprine HCl 10 MG AT BEDTIME 05/23 2200 AC 05/25 PO 2137 Dicyclomine HCl 20 MG 4 TIMES/DAY PRN 05/08 2030 AC PO Diphenhydramine HCl 25 MG Q6P PRN 05/19 1200 AC 05/25 PO 2140 Ferrous Sulfate 325 MG TID 05/21 1600 AC 05/25 PO 2137 Heparin Sodium 5,000 UNIT Q8 05/06 0600 AC 05/25 (Porcine) SC 1416 Hydromorphone HCl 0.6 MG ONCE ONE 05/26 844 DC 05/26 IV 05/26 0846 0919 Hydromorphone HCl 1 MG Q4P PRN 05/23 2245 AC 05/26 IV 1333 Hydroxyzine HCl 100 MG Q6-PRN PRN 05/13 1545 AC 05/20 PO 2247 Insulin Aspart 0 TIDAC 05/20 1700 AC 05/25 SC 1415 Insulin Detemir 50 UNITS BID 05/06 1000 05/26 SC 1100 Lorazepam 0.5 MG ONCE ONE 05/26 1100 DC 05/26 IV 05/26 1101 1104 Lorazepam 0.5 MG ONCE ONE 05/26 0845 DC 05/26 IV 05/26 0846 0918 Lorazepam 0.5 MG ONCE ONE 05/26 0200 DC 05/26 IV 05/26 0201 0219 Lorazepam 0.5 MG ONCE ONE 05/25 2030 DC 05/25 IV 05/25 2031 2045 Magnesium Chloride 64 MG DAILY 05/21 1246 AC 05/25 PO 0930 Oxacillin Sodium 2,000 MG Q4H 05/23 1030 AC 05/26 Sodium Chloride 100 ML IV 1246 Oxycodone HCl 15 MG Q8P PRN 05/23 1730 AC 05/26 PO 0655 Pregabalin 150 MG BID 05/06 0046 DC 05/25 PO 2137 Last 24 Hrs of Lab/Haris Results Last 24 Hrs of Labs/Mics: Laboratory Tests 05/26/16 1045: Urinalysis LIGHT H, Urine Color YEL, Urine Clarity HAZY H, Urine pH 6.0, Ur Specific [place] 1.025, Urine Protein NEG, Urine Ketones NEG, Urine Nitrite NEG, Urine Bilirubin NEG, Urine Urobilinogen 0.2, Ur Leukocyte Esterase LARGE H, Ur Microscopic SEDIMENT EXAMINED, Urine RBC 1-3, Urine WBC > 75 H, Ur Epithelial Cells MOD H, Urine Mucus RARE, Urine Hemoglobin TRACE-INTACT, Urine Glucose NEG 05/26/16 1000: Troponin I < 0.01 05/26/16 0845: D-Dimer 950 H Microbiology 05/26 1045 URINE ROUT: Urine Culture - RECD Assessment/Plan Assessment: Ms. Urias is 40-year-old female with a past medical history of osteomyelitis of pubis, necrotizing fasciitis of the perineum, hysterectomy, colostomy reversed, left renal abscess, C. difficile colitis,anxiety, depression, chronic pain disorder,chronic back pain,chronic anemia, poorly controlled IDDM 2, DKA, recent fall with minimal displaced pelvic fracture, right shoulder cellulitis s/ p incision and drainage on oxacillin to finish a course of 4 weeks (untill May 12) discharged 04/18/16, presenting with a chief complaint of worsening right pelvic and hip pain for 2 days. # S. aureus bacteremia Patient found to be septic on admission with fever, tachycardia and first set of blood cultures growing staph aureus. Patient was placed on vancomycin in addition to oxacillin on which patient had already been for cellulitis prior the this admission. Patient went into a septic shock on 05/06 which resolved with aggressive IVF resucsitation. Initial blood cultures and a series of repeat bcx' s grew MSSA. TTE and MONICA negative for endocarditis. Blood culture from the Pro line grew GPC before the peripheral line. This raised the suspicion that the source of infection could be from the Pro-line. Blood cultures from 05/12 growing GNR. Pro-line removed on 05/13. Tip of the catheter growing GNR, GPC, and staph coag negative. Repeat blood cultures from 05/13 and 05/15 NGTD - MRI pelvis (05/07): - Bone marrow edema within the pubic rami extending to the right acetabulum compatible with posttraumatic inflammatory change. Soft tissue edema surrounds the rami fractures without evidence of a focal, organized fluid collection in this region. Small right hip joint effusion nonspecific but possibly indicative of early infectious arthritis. New Pro-line placement on 05/20. - WBC scan (05/09): Grossly unremarkable except for moderately intense diffuse lung activity (nonspecific), possibly due to a diffuse inflammatoryprocess in the lungs * ID consulted, follow recs * Continue IV oxacillin, to be discontinued on 06/10/16 * Follow wound care recs # Chronic pain syndrome Patient carries a hx of chronic pain disorder. Patient does have a fracture in the right hip from a fall a month ago. Ortho saw the patient and recommended conservative management without any further interventions at that time. Ortho was contacted again on 05/13 and no interventions were recommended. * Cont Roxicodone to 15mg PO Q8P with IV Dilaudid 1mg IV Q4P * Minimize IV narcotics * Pain management was consulted - recommended discontuing IV Dilaudid # Substernal/pleuritic chest pain Patient endorses significant amount of substernal chest pain, worsened with breathing. She also reports associated dyspnea. * Follow CTA chest given elevated D-dimer in 900s. * Check troponin and EKG to r/o ACS - negative # Dysuria Patient reports a new onset of right flank pain with dysuria and oliguria, concerning for possible pyelonephritis. CVA tenderness positive on physical exam. UA remakrable for a large amount of leuk esterase and WBC, and moderate epith cells. * Hold onto antibiotic tx for UTI * Follow urine culture # Anemia most likely 2/2 iron deficiency - Resolved Patient's hemoglobin dropped to 7.1 on 05/22. Hgb dropped to 6.9 despite receiving 1 unit of pRBC. She received 2 additional units with an appropriate response. [place] stool test negative. Iron studies significant for low Fe and slightly elevated TIBC. Patient was transfused a total of 3 units on 05/22. Most likely anemia of chronic disease vs. ACBL vs. Fe deficiency. * Cont iron supplementation * Transfuse if Hgb < 7 # Hyponatremia -Resolved Patient presented with a sodium level of 114 (corrected Na 122), consistent with acute on chronic hyponatremia. This is most attributable to pseudohyponatremia in the setting of hyperglycemia, possibly with a component of SIADH/sepsis/poor intake. Patient is currently has no significant neurological symptoms. Serum & urine osmolality WNL. # Poor controlled diabetes * Novolog SSI with accuchecks * Continue Levemir 50U SQ BID # Mood disorders * Psych consulted, appreciate recs * Clonidine 0.1 mg PO Q8P, if opiate withdrawal symptoms. Hold Clonidine for blood pressure less than 90 mmHg systolic, less than 60 mmHg diastolic or pulse less than 55 BPM. * Baclofen 10 mg PO every 6 hours, as needed, for muscle cramps. * Dicyclomine 20 mg PO every 6 hours, as needed, for GI cramps. * Hydroxyzine 100 mg PO every 6 hours, as needed, for anxiety and itching. # Diet regular diet # Moderate-Severe pain pathway # DVT prophylaxis heparin subcutaneous # Full code Problem List: 1. Bacteremia 2. Chronic pruritus 3. Cellulitis 4. Full code status 5. DVT prophylaxis 6. Pain management 7. Diabetes mellitus Pain Ratin Pain Location: R hip Chest R flank Pain Goal: Pain 4 or less Pain Plan: Dilaudid 1mg IV Q4P Roxicodone to 15mg PO Q8 PRN Tomorrow's Labs & Rationales: None - discharge Consulting Request: Consulting Specialty: Infectious Disease Consulting Physician: Gerald Dunbar MD Reason for Consult: bacteremia
[2016-05-26 06:53] VITALS: BP 104/70
--- NOTE | 2016-05-26 09:04 | NUR ---
WOUND CARE: LATE ENTRY Thursday05/23/15 11 AM - PT EXAMINED AT CHAIR SIDE WITH RN AND MD PRESENT - F/U WOUND ASSESSMENT - PT CONT TO REFUSE MULTIPLE RECOMMENDATIONS FOR REPOSITIONING AND USE OF GROUP 2 ALTERNATING PRESSURE MATTRESS - EDUCATED RE: RISKS AND CONT TO REFUSE - COCCYX UNSTAGEABLE 1.2 X 0.3 CM, RIGHT BUTTOCKS 1.8 X 1.1 CM UNSTAGEABLE, LOWER BACK UNSTAGEABLE INJURY 0.3 X 0.7 CM - SL PERIRECTAL EXCORATION ALSO NOTED PT INC SOFT BM - RECOMMENDATION: CONT CURRENT WOUND CARE PREVIOSLY ORDERED - TO NOTE, DR TESFAYE HAS BEEN AWARE OF ALL PTS SKIN PRESSURE RELATED CHANGES AND REQUESTED TO EVALUATE WELL
--- NOTE | 2016-05-26 16:35 | CT SCAN REPORT ---
EXAMINATION: CT ANGIOGRAM CHEST CLINICAL INFORMATION: Pleuritic chest pain and substernal chest pain. COMPARISON: Abdominal CT from 05/06/2016 and chest x-ray from 05/05/2016. Chest CT from 04/11/2016. TECHNIQUE: Multiple axial images were obtained through the chest after the administration of 50 mL of Optiray 320 intravenous contrast. Images were reviewed on a dedicated 3-D workstation. FINDINGS: No central, lobar, or segmental pulmonary emboli. Subsegmental pulmonary arterial branches are limitedly assessed secondary to artifact. There is a new large right pleural effusion that is in part loculated with associated complete collapse of the right lower lobe and partial collapse of the right middle and right upper lobes. There are also a few patchy airspace opacities within the right upper and right middle lobes. There are several 1 cm areas of intraparenchymal hypoattenuation within the right upper lobe on image 37 of series 400, within the collapsed right lower lobe on image 29 of series 400, and within the right lower lobe on image 44 of series 400 with the latter of several areas associated with small volume gas. There is a 6 mm subpleural nodular opacity within the left upper lobe that is not present on the previous study and there are several nodular opacities within the posterior aspect of the left upper lobe and within the superior segment of the left lower lobe that are not seen previously. An infectious etiology such as septic emboli is favored in light of the clinical history and short interval development time. The left lung is otherwise clear. No pneumothorax. The partially imaged thyroid gland is normal. There is no mediastinal lymphadenopathy. No axillary lymphadenopathy. Heart is normal in size. Small pericardial effusion. Nondiagnostic assessment for striated nephrograms given the presence of significant streak artifact obscuring the kidneys bilaterally. Pyelonephritis cannot be excluded by this study. Remainder the visualized upper abdomen appears unremarkable. No acute osseous findings. There is a left IJ central venous catheter in place. Previously seen inflammatory changes within the right upper back have resolved. IMPRESSION: - No pulmonary emboli. - There is a new large right pleural effusion that is in part loculated with associated complete collapse of the right lower lobe and partial collapse of the right middle and right upper lobes. There are also a few patchy airspace opacities within the right upper and right middle lobes and I cannot exclude superimposed pneumonia. - There are several 1 cm areas of intraparenchymal hypoattenuation within the right upper lobe on image 37 of series 400, within the collapsed right lower lobe on image 29 of series 400, and within the right lower lobe on image 44 of series 400 with the latter of several areas associated with small volume gas that are concerning for areas of pulmonary abscess formation. - There is a 6 mm subpleural nodular opacity within the left upper lobe that is not present on the previous study and there are several nodular opacities within the posterior aspect of the left upper lobe and within the superior segment of the left lower lobe that are not seen previously. An infectious etiology such as septic emboli is favored in light of the clinical history and short interval development time. - Nondiagnostic assessment for striated nephrograms given the presence of significant streak artifact obscuring the kidneys bilaterally. Pyelonephritis cannot be excluded by this study. Findings discussed with Jazmyne Venegas M.D. at 4:26 PM on 05/26/2016.
--- NOTE | 2016-05-26 17:00 | PN- Att Addend ---
Attending Addendum Attending Brief Note Patient seen and examined. Complains of new right sided chest pain posteriorly radiating to the flank. She denies any trauma. Denies any cough or shortness of breath. Denies palpitations. She remains afebrile and hemodynamically stable. She complains of this new pain despite her current analgesic regimen. Gen. appearance: Well-developed, not in respiratory distress HEENT: Anicteric. No pallor. Heart: S1-S2 regular with no audible normal Lungs: Diminished air entry right lung base. Tenderness right chest wall posteriorly. Abdomen: Soft, nontender with normal bowel sounds. Right lower abdominal tenderness. No rebound. No guarding. Bowel sounds normal. Extremities: No pedal edema. Wound over right shoulder is healing appropriately. CT angiogram done to evaluate her chest pain shows no evidence of pulmonary embolism. He shows a new large pleural effusion at is in part loculated with associated collapse of the right lower lobe and partial collapse of the right upper and middle lobe. Few patchy opacities in the lungs. There is concern for pulmonary abscess and septic emboli. A similar concern for septic emboli in the left lung as well. Problems: 1. Large right pleural effusion with lung collapse. 2. Concern for septic emboli to the lungs. 3. Right lower quadrant abdominal pain. 4. Sepsis with MSSA bacteremia; currently on long-term antibiotic therapy with Oxacillin. Probably due to line sepsis versus right shoulder wound. Negative MONICA 2. Negative white cell nuclear scan 5. Chronic pain syndrome 6. Anxiety disorder 7. Insulin-dependent diabetes mellitus Plan: -Patient is currently afebrile and hemodynamically stable. She is currently not requiring oxygen supplementation. She has no leukocytosis on previous labs however it is noted that even while bacteremic her white cell count was within normal limits. -Hold off changing antibiotic regimen until reevaluation by the ID service. -Consultation has been placed with the thoracic surgery service with Timbo Anne MD. -Obtain Pulmonary consultation. Patient will require diagnostic and therapeutic thoracocentesis. -Repeat CBC and serum chemistry. Check PTT INR for procedure in the a.m. -Patient continues to request increasing amount of pain medication. In light of the new right-sided chest pain will increase her Dilaudid to 1.5 mg every 4 hours. Recommend caution to avoid oversedation. -Obtain CT of the abdomen and pelvis to further evaluate her complaint of abdominal pain and rule out pelvic abscess. -If patient develops shortness of breath, recommend transferring to the intensive care unit for closer monitoring and ventilatory support as needed.
[2016-05-26 17:41] LABS: ABSOLUTE BASOPHIL COUNT 0 /CUMM (0.0-0.2); ABSOLUTE EOSINOPHIL COUNT 0.7 /CUMM (0.0-0.7); ABSOLUTE GRANULOCYTE CT 2.5 /CUMM (1.4-6.5); ABSOLUTE LYMPH COUNT 1.3 /CUMM (1.2-3.4); ABSOLUTE MONOCYTE COUNT 0.5 /CUMM (0.10-0.60); BASOPHIL % 0.9 % (0.0-2.0); EOSINOPHIL % 13.8 % (0-5); HEMATOCRIT 33.2 % (37-47); MEAN CORPUSCULAR HGB CONC 31.6 G/DL (33.0-37.0); MEAN CORPUSCULAR VOLUME 78.9 FL (81.0-99.0); MEAN PLATELET VOLUME 7.4 FL (7.4-10.4); PLATELET COUNT 239 /CUMM (130-400); RBC DISTRIBUTION WIDTH 21.8 % (11.5-14.5); RED BLOOD CELL CT 4.21 /CUMM (4.20-5.40)
--- NOTE | 2016-05-26 18:05 | PN- Thoracic Surgery ---
Subjective Subjective: Consult placed for Pleural effusion management recommendations Patient is complaining of new right sided chest pain posteriorly radiating to the flank. She denies any trauma. Denies any cough or shortness of breath. Denies palpitations. She remains afebrile and hemodynamically stable. Objective Vital Signs and I&Os Vital Signs Date Time Temp Pulse Resp B/P Pulse O2 O2 Flow FiO2 Ox Delivery Rate 05/26 1516 98 104/70 05/26 0956 Room Air 2.0L 05/26 0653 98.1 98 20 104/70 91 Room Air 05/25 2219 97.7 86 20 132/82 94 Intake & Output 05/26 1600 05/26 0800 05/26 0000 05/25 1600 05/25 0800 05/25 0000 Intake Total 250 250 980 250 340 Output Total 1600 600 500 Balance -1350 250 380 -250 340 Intake, IV 150 250 260 250 100 Intake, Oral 100 720 240 Output, Urine 1600 600 500 Results Last 48 Hours of Labs: Laboratory Tests 05/26 05/26 1720 1045 Chemistry Sodium (137 - 145 mmol/L) 136 L Potassium (3.5 - 5.1 mmol/L) 4.4 Chloride (98 - 107 mmol/L) 98 Carbon Dioxide (22 - 30 mmol/L) 27 Anion Gap (5 - 16) 11 BUN (7 - 17 mg/dL) 14 Creatinine (0.5 - 1.0 mg/dL) 0.6 Estimated GFR (>60 ml/min) > 60 BUN/Creatinine Ratio (7 - 25 %) 23.3 Hematology CBC w Diff NO MAN DIFF REQ WBC (4.8 - 10.8 /CUMM) 5.0 RBC (4.20 - 5.40 /CUMM) 4.21 Hgb (12.0 - 16.0 G/DL) 10.5 L Hct (37 - 47 %) 33.2 L MCV (81.0 - 99.0 FL) 78.9 L MCH (27.0 - 31.0 PG) 25.0 L RDW (11.5 - 14.5 %) 21.8 H Plt Count (130 - 400 /CUMM) 239 MPV (7.4 - 10.4 FL) 7.4 Gran % (42.2 - 75.2 %) 50.0 Lymphocytes % (20.5 - 51.1 %) 25.8 Monocytes % (1.7 - 9.3 %) 9.5 H Eosinophils % (0 - 5 %) 13.8 H Basophils % (0.0 - 2.0 %) 0.9 Absolute Granulocytes (1.4 - 6.5 /CUMM) 2.5 Absolute Lymphocytes (1.2 - 3.4 /CUMM) 1.3 Absolute Monocytes (0.10 - 0.60 /CUMM) 0.5 Absolute Eosinophils (0.0 - 0.7 /CUMM) 0.7 Absolute Basophils (0.0 - 0.2 /CUMM) 0 PUBS MCHC (33.0 - 37.0 G/DL) 31.6 L Urines Urinalysis LIGHT H Urine Color (YEL,AMB,STR) YEL Urine Clarity (CLEAR) HAZY H Urine pH (5.0 - 8.0) 6.0 Ur Specific [place] (1.001 - 1.035) 1.025 Urine Protein (NEG,<30 MG/DL) NEG Urine Ketones (NEG) NEG Urine Nitrite (NEG) NEG Urine Bilirubin (NEG) NEG Urine Urobilinogen (0.1 - 1.0 EU/dl) 0.2 Ur Leukocyte Esterase (NEG) LARGE H Ur Microscopic SEDIMENT EXAMINED Urine RBC (0 - 5 /HPF) 1-3 Urine WBC (0 - 2 /HPF) > 75 H Ur Epithelial Cells (NONE,FEW) MOD H Urine Mucus (FEW,NONE) RARE Urine Hemoglobin (NEG) TRACE-INTACT Urine Glucose (N MG/DL) NEG 05/26 05/26 05/25 1000 0845 0510 Chemistry Sodium (137 - 145 mmol/L) 138 Potassium (3.5 - 5.1 mmol/L) 4.2 Chloride (98 - 107 mmol/L) 98 Carbon Dioxide (22 - 30 mmol/L) 26 Anion Gap (5 - 16) 15 BUN (7 - 17 mg/dL) 16 Creatinine (0.5 - 1.0 mg/dL) 0.5 Estimated GFR (>60 ml/min) > 60 BUN/Creatinine Ratio (7 - 25 %) 32.0 H Magnesium (1.6 - 2.3 mg/dL) 1.7 Troponin I (< 0.11 ng/ml) < 0.01 Coagulation D-Dimer (70 - 232 ng/ml) 950 H Hematology CBC w Diff NO MAN DIFF REQ WBC (4.8 - 10.8 /CUMM) 5.7 RBC (4.20 - 5.40 /CUMM) 4.69 Hgb (12.0 - 16.0 G/DL) 11.9 L Hct (37 - 47 %) 37.1 MCV (81.0 - 99.0 FL) 79.1 L MCH (27.0 - 31.0 PG) 25.4 L RDW (11.5 - 14.5 %) 21.1 H Plt Count (130 - 400 /CUMM) 281 MPV (7.4 - 10.4 FL) 8.4 Gran % (42.2 - 75.2 %) 42.4 Lymphocytes % (20.5 - 51.1 %) 31.0 Monocytes % (1.7 - 9.3 %) 10.8 H Eosinophils % (0 - 5 %) 14.9 H Basophils % (0.0 - 2.0 %) 0.9 Absolute Granulocytes (1.4 - 6.5 /CUMM) 2.4 Absolute Lymphocytes (1.2 - 3.4 /CUMM) 1.8 Absolute Monocytes (0.10 - 0.60 /CUMM) 0.6 Absolute Eosinophils (0.0 - 0.7 /CUMM) 0.8 Absolute Basophils (0.0 - 0.2 /CUMM) 0.1 PUBS MCHC (33.0 - 37.0 G/DL) 32.2 L Recent Imaging Studies: CT angiogram done to evaluate her chest pain shows no evidence of pulmonary embolism. But a new large pleural effusion in part loculated with associated collapse of the right lower lobe and partial collapse of the right upper and middle lobe. Few patchy opacities in the lungs. There is concern for pulmonary abscess and septic emboli. A similar concern for septic emboli in the left lung as well. Assessment/Plan Assessment/Plan Discussed with Dr Anne who has spoken to Dr Delgado Plan: -Patient is currently afebrile and hemodynamically stable. She is currently not requiring oxygen supplementation. She has no leukocytosis on previous labs however it is noted that even while bacteremic her white cell count was within normal limits. -Abx per medical team and ID -?diagnostic and therapeutic thoracocentesis. Recommendation from thoracic surgery is for IR catheter to be placed to drain the chest Follow up recommendations will be based on drainage - need for lytics etc assessed at that time Will follow
--- NOTE | 2016-05-26 19:21 | CT SCAN REPORT ---
EXAMINATION: CT ABDOMEN AND PELVIS WITHOUT CONTRAST CLINICAL INFORMATION: Abdominal pain. Presumptive diagnosis of colitis or diverticulitis. COMPARISON: CTA of the chest dated 05/26/2016. CT scan of the abdomen and pelvis dated 05/06/2016 and 04/16/2016. TECHNIQUE: Multidetector volumetric imaging was performed from the superior aspect of the liver through the pubic symphysis. Sagittal and coronal reformatted images were obtained on the technologist's workstation. DLP: 1458.49 mGy-cm FINDINGS: LUNG BASES: As seen on the CTA, there is a large right-sided pleural effusion with collapse of the right lower lobe. Mild dependent atelectasis is also seen in the left lower lobe. LIVER, GALLBLADDER, AND BILIARY TREE: The liver is normal in size, shape, and attenuation. No focal hepatic lesion on noncontrast imaging. No biliary ductal dilatation is present. The gallbladder is unremarkable with no evidence of radiopaque gallstones, gallbladder wall thickening, or obvious pericholecystic inflammatory changes. PANCREAS: Markedly atrophic, similar to the previous exam. Only portions of the pancreatic body and head are visualized. No pancreatic mass. SPLEEN: Enlarged, measuring 14.8 cm longitudinally. No focal splenic mass. ADRENAL GLANDS: Unremarkable on noncontrast imaging. KIDNEYS AND URETERS: The kidneys are normal in size, shape, and attenuation. No hydronephrosis, hydroureter, or calculi seen. No perinephric stranding. Contrast excretion into the renal collecting system and the ureters is seen from prior CTA today. BLADDER: Well-distended and filled with contrast. A few air locules also seen, likely due to recent catheterization. GASTROINTESTINAL TRACT: Suture line is seen in the transverse colon region, similar to the prior exam. Small and large bowel loops are decompressed and grossly unremarkable. The appendix is unremarkable. ABDOMINAL WALL: There is a small fat-containing umbilical hernia. An indirect left inguinal hernia is seen, containing nonobstructed loops of small and large bowel. Anasarca is seen in the soft tissues of the pelvis. LYMPH NODES, VASCULAR: Unremarkable. PELVIC VISCERA: Air locules are seen within the vagina, presumably related to recent manipulation. No definite fistulous connection to bowel is appreciated. Uterus otherwise unremarkable. No suspicious adnexal mass. OSSEOUS STRUCTURES: Ununited fracture of the right inferior pubic ramus and partially healed fracture of the right superior pubic ramus are again noted, similar to the prior exam. Diffuse osteopenia is seen with mild wedge compression deformity of the T11 vertebral body (30% reduction in vertebral body height). Moderate degenerative disc disease with discogenic sclerosis, spurring and cystic changes in the vertebral endplates seen at L4-L5. Mild convex left lumbar scoliosis. IMPRESSION: 1. No acute intra-abdominal or pelvic process is seen. Specifically, no evidence of colitis or diverticulitis is seen. 2. Large right-sided pleural effusion with collapse of the right lower lobe. 3. Markedly atrophic pancreas. Enlarged spleen, similar to the prior exam. 4. Air locules are seen within the bladder and the vagina, presumably related to recent manipulation. No definite fistulous connections noted. 5. Healing fracture deformities of the right superior and inferior pubic rami.
[2016-05-26 22:24] VITALS: BP 140/60
[2016-05-27 01:54] VITALS: BP 130/70
[2016-05-27 06:00] VITALS: BP 140/68
--- NOTE | 2016-05-27 06:19 | PN- Housestaff ---
See Addendum Subjective Follow-up For: Pleural effusion Bactermia Chronic pain syndrome Subjective: Patient seen and examined at bedside. Patient continues to complain of severe pain in the right sided chest and flank. Pain worse with breathing. Denies dysuria this morning. Patient would like extra IV Dilaudid and Ativan. Denies any palpitations, shortness of breath, fever, chills, nausea, vomiting, abdominal pain, diarrhea. Thoracentesis pending. Review of Systems Constitutional: Reports: see HPI. Objective Last 24 Hrs of Vital Signs/I&O Vital Signs Date Time Temp Pulse Resp B/P Pulse O2 O2 Flow FiO2 Ox Delivery Rate 05/27 0745 110 22 91 Room Air 05/27 0609 90 140/60 05/27 0600 98.4 90 18 140/68 91 05/27 0313 92 Room Air 05/27 0154 98.3 97 19 130/70 94 Room Air 05/27 0000 94 Room Air 05/26 2224 98.0 103 20 140/60 95 Room Air 05/26 2100 98.0 103 20 140/80 05/26 1516 98 104/70 Intake & Output 05/27 1600 05/27 0800 05/27 0000 Intake Total 425 680 Output Total 800 1600 Balance -800 425 -920 Intake, IV 300 200 Intake, Oral 125 480 Output, Urine 800 1600 Physical Exam General Appearance: Alert, Oriented X3, Cooperative, Mild Distress Other Physical Findings: Skin cellulitis on the right shoulder healing well with scar formation, no oozing or drainage. No signs of infection around the Pro-line insertion site without drainage/erythema/tenderness. 4 x 2 unstageable pressure ulcer in the coccyx - moist yellow slough with periwound edge light purple discolored hue and scant drainage - improving. HEENT: Mucous Membr. moist/pink Cardiovascular: Regular Rate, Normal S1, Normal S2, No Murmurs, Gallops, Rubs Pulmonary: CTA, no crackles/rales/rhonchi Abdomen: Normal Bowel Sounds, Soft, Severe tenderenss in right flank. MSK: severe pain in the right hip Extremities: No Clubbing, No Cyanosis, No Edema Current Medications: Current Medications Sig/Shahla Start time Last Medication Dose Route Stop Time Status Admin Albuterol Sulfate 2 PUF Q4-6 PRN PRN 05/06 0100 AC INH Baclofen 10 MG Q6P PRN 05/08 2030 AC 05/13 PO 0859 Clonidine 0.1 MG Q8 05/08 2200 AC 05/27 PO 0609 Cyclobenzaprine HCl 10 MG AT BEDTIME 05/23 2200 AC 05/26 PO 2100 Dextrose/Sodium 1,000 ML Q20H 05/27 0945 AC 05/27 Chloride IV 1011 Dicyclomine HCl 20 MG 4 TIMES/DAY PRN 05/08 2030 AC PO Diphenhydramine HCl 50 MG .STK-MED ONE 05/26 2140 DC IM 05/26 2141 Diphenhydramine HCl 25 MG Q6P PRN 05/19 1200 AC 05/25 PO 2140 Ferrous Sulfate 325 MG TID 05/21 1600 AC 05/27 PO 1011 Heparin Sodium 5,000 UNIT Q8 05/06 0600 DC 05/26 (Porcine) SC 2120 Hydromorphone HCl 1 MG ONCE ONE 05/27 1245 DC IV 05/27 1246 Hydromorphone HCl 1 MG ONCE ONE 05/27 08 DC 05/27 IV 05/27 0801 0809 Hydromorphone HCl 1.5 MG Q4P PRN 05/26 1645 AC 05/27 IV 1005 Hydromorphone HCl 1 MG ONCE ONE 05/26 1515 DC 05/26 IV 05/26 1516 1516 Hydromorphone HCl 1 MG Q4P PRN 05/23 2245 DC 05/26 IV 1333 Hydroxyzine HCl 100 MG Q6-PRN PRN 05/13 1545 AC 05/20 PO 2247 Insulin Aspart 0 TIDAC 05/20 1700 DC 05/25 SC 1415 Insulin Detemir 25 UNITS BID 05/27 1000 CAN SC Insulin Detemir 10 UNITS ONCE ONE 05/27 0945 DC 05/27 SC 05/27 0946 1006 Insulin Detemir 50 UNITS BID 05/06 1000 DC 05/26 SC 2102 Insulin Human Regular 0 Q6 05/27 1200 DC SC Insulin Human Regular 0 Q6 05/27 1200 AC SC Lorazepam 0.5 MG ONCE ONE 05/27 0800 DC 05/27 IV 05/27 0801 0809 Lorazepam 1 MG ONCE ONE 05/27 0245 DC 05/27 IV 05/27 0246 0245 Lorazepam 1 MG ONCE ONE 05/26 2300 DC 05/26 IV 05/26 2301 2255 Lorazepam 1 MG ONCE ONE 05/26 1745 DC 05/26 IV 05/26 1746 1744 Magnesium Chloride 64 MG DAILY 05/21 1246 AC 05/27 PO 1005 Oxacillin Sodium 2,000 MG Q4H 05/23 1030 AC 05/27 Sodium Chloride 100 ML IV 1006 Oxycodone HCl 15 MG Q8P PRN 05/23 1730 AC 05/26 PO 1733 Pregabalin 150 MG BID 05/27 1000 AC 05/27 PO 1005 Pregabalin 150 MG BID 05/06 0046 DC 05/25 PO 2137 Last 24 Hrs of Lab/Haris Results Last 24 Hrs of Labs/Mics: Laboratory Tests 05/27/16 0615: Anion Gap 13, Estimated GFR > 60, BUN/Creatinine Ratio 21.4, Magnesium 1.6, Lactate Dehydrogenase 539, Troponin I < 0.01, Total Protein 5.9 L, Albumin 3.1 L, PT 11.2, INR 1.07, APTT 31, CBC w Diff NO MAN DIFF REQ, RBC 4.01 L, MCV 79.2 L, MCH 25.6 L, RDW 22.3 H, MPV 8.5, Gran % 45.1, Lymphocytes % 27.5, Monocytes % 10.6 H, Eosinophils % 16.0 H, Basophils % 0.8, Absolute Granulocytes 2.0, Absolute Lymphocytes 1.2, Absolute Monocytes 0.5, Absolute Eosinophils 0.7, Absolute Basophils 0, PUBS MCHC 32.3 L 05/26/16 1720: Anion Gap 11, Estimated GFR > 60, BUN/Creatinine Ratio 23.3, CBC w Diff NO MAN DIFF REQ, RBC 4.21, MCV 78.9 L, MCH 25.0 L, RDW 21.8 H, MPV 7.4, Gran % 50.0, Lymphocytes % 25.8, Monocytes % 9.5 H, Eosinophils % 13.8 H, Basophils % 0.9, Absolute Granulocytes 2.5, Absolute Lymphocytes 1.3, Absolute Monocytes 0.5, Absolute Eosinophils 0.7, Absolute Basophils 0, PUBS MCHC 31.6 L Microbiology 05/27 08 BODY FLUID: Body Fluid Culture - COLB 05/27 799 BODY FLUID: Gram Stain - COLB 01/09 2120 BLOOD: Blood Culture - RES 05/26 2114 BLOOD: Blood Culture - RES 05/26 2099 BLOOD: Blood Culture - RES Assessment/Plan Assessment: Ms. Urias is 40-year-old female with a past medical history of osteomyelitis of pubis, necrotizing fasciitis of the perineum, hysterectomy, colostomy reversed, left renal abscess, C. difficile colitis,anxiety, depression, chronic pain disorder,chronic back pain,chronic anemia, poorly controlled IDDM 2, DKA, recent fall with minimal displaced pelvic fracture, right shoulder cellulitis s/ p incision and drainage on oxacillin to finish a course of 4 weeks (untilMay 12) discharged 04/18/16, presenting with a chief complaint of worsening right pelvic and hip pain. Now found to have pulmonary findings on CTA including a large pleural effusion, concerning for pneumonia, septic embolism and lung abscess. # Pulmonary abscess with possible pneumonia and septic emboli - CTA (05/27) shows a new large right pleural effusion with collapse of the right lung and patchy airspace opacities concerning for pneumonia. There are also severeal areas of intraparenchymal hypoattenuation and small volume gas concerning for areas of pulmonary abscess formation. In the left lung there are 6 mm subpleural nodular opacity and several nodular opacities, concerning for septic emboli. Pyelonephritis cannot be excluded. * ID/Pulm/Thoracic surgery consulted, follow recs * Chest tube to be inserted today under general anesthesia * Follow pleural fluid analysis * Monitor off abx pending above per ID rec * Check CBC daily, trend WBC * Vitals per protocol, watch for fever # S. aureus bacteremia Patient found to be septic on admission with fever, tachycardia and first set of blood cultures growing staph aureus. Patient was placed on vancomycin in addition to oxacillin on which patient had already been for cellulitis prior the this admission. Patient went into a septic shock on 05/06 which resolved with aggressive IVF resucsitation. Initial blood cultures and a series of repeat bcx' s grew MSSA. TTE and MONICA negative for endocarditis. Blood culture from the Pro line grew GPC before the peripheral line. This raised the suspicion that the source of infection could be from the Pro-line. Blood cultures from 05/12 growing GNR. Pro-line removed on 05/13. Tip of the catheter growing GNR, GPC, and staph coag negative. Repeat blood cultures from 05/13 and 05/15 NGTD - MRI pelvis (05/07): - Bone marrow edema within the pubic rami extending to the right acetabulum compatible with posttraumatic inflammatory change. Soft tissue edema surrounds the rami fractures without evidence of a focal, organized fluid collection in this region. Small right hip joint effusion nonspecific but possibly indicative of early infectious arthritis. New Pro-line placement on 05/20. - WBC scan (05/09): Grossly unremarkable except for moderately intense diffuse lung activity (nonspecific), possibly due to a diffuse inflammatoryprocess in the lungs * ID consulted, follow recs * Continue IV oxacillin, to be discontinued on 06/10/16 * Follow wound care recs # Chronic pain syndrome Patient carries a hx of chronic pain disorder. Patient does have a fracture in the right hip from a fall a month ago. Ortho saw the patient and recommended conservative management without any further interventions at that time. Ortho was contacted again on 05/13 and no interventions were recommended. * Cont Roxicodone to 15mg PO Q8P with IV Dilaudid 1mg IV Q4P * Minimize IV narcotics * Pain management was consulted - recommended discontuing IV Dilaudid # Substernal/pleuritic chest pain Patient endorses significant amount of substernal chest pain, worsened with breathing. She also reports associated dyspnea. * Follow CTA chest given elevated D-dimer in 900s. * Check troponin and EKG to r/o ACS - negative # Dysuria Patient reports a new onset of right flank pain with dysuria and oliguria, concerning for possible pyelonephritis. CVA tenderness positive on physical exam. UA remakrable for a large amount of leuk esterase and WBC, and moderate epith cells. * Hold onto antibiotic tx for UTI * Follow urine culture # Anemia most likely 2/2 iron deficiency - Resolved Patient's hemoglobin dropped to 7.1 on 05/22. Hgb dropped to 6.9 despite receiving 1 unit of pRBC. She received 2 additional units with an appropriate response. [place] stool test negative. Iron studies significant for low Fe and slightly elevated TIBC. Patient was transfused a total of 3 units on 05/22. Most likely anemia of chronic disease vs. ACBL vs. Fe deficiency. * Cont iron supplementation * Transfuse if Hgb < 7 # Hyponatremia -Resolved Patient presented with a sodium level of 114 (corrected Na 122), consistent with acute on chronic hyponatremia. This is most attributable to pseudohyponatremia in the setting of hyperglycemia, possibly with a component of SIADH/sepsis/poor intake. Patient is currently has no significant neurological symptoms. Serum & urine osmolality WNL. # Poor controlled diabetes * Novolog SSI with accuchecks * Continue Levemir 50U SQ BID # Mood disorders * Psych consulted, appreciate recs * Clonidine 0.1 mg PO Q8P, if opiate withdrawal symptoms. Hold Clonidine for blood pressure less than 90 mmHg systolic, less than 60 mmHg diastolic or pulse less than 55 BPM. * Baclofen 10 mg PO every 6 hours, as needed, for muscle cramps. * Dicyclomine 20 mg PO every 6 hours, as needed, for GI cramps. * Hydroxyzine 100 mg PO every 6 hours, as needed, for anxiety and itching. # Diet regular diet # Moderate-Severe pain pathway # DVT prophylaxis heparin subcutaneous # Full code Problem List: 1. Right hip pain 2. S/P colostomy takedown 3. Pleural effusion 4. Bacteremia 5. Pubic ramus fracture Pain Ratin Pain Location: 0 Pain Goal: Remain pain free Pain Plan: Dilaudid 1.5mg IV Q4P Roxicodone to 15mg PO Q8 PRN Tomorrow's Labs & Rationales: CBC to monitor for infection BEP to monitor for electrolyte disturbance and renal fx Consulting Request: Consulting Specialty: Infectious Disease Consulting Physician: Gerald Dunbar MD Reason for Consult: bacteremia
--- NOTE | 2016-05-27 07:46 | NUR ---
LATE ENTRY NURSING NOTE: PT WOKE UP AROUND 0240 - SHOUTING IN PAIN, RR 20, O2SAT @ 94% RA, PAIN 10/10 TO R CHEST. MD SWETHA FRY PLACED 1 TIME ORDER FOR IV ATIVAN PER PT SHE IS EXTREMELY ANXIOUS. AFTER ATIVAN, PT CALMED DOWN & WENT TO BED. AROUND 0430 PT WOKE UP - ONCE AGAIN SHOUTING, YELLING "I NEED HELP. I CAN'T TAKE THIS PAIN". MD SWETHA FRY MADE AWARE. PER , OK TO GIVE SCHED. DILAUDID DOSE EARLY. PT EXPRESSING PAIN ON R SIDE OF CHEST WHICH WORSENS W BREATHING. AWARE. PLACED ORDER FOR 0630 EKG. RN WILL CONTINUE TO MONITOR.
[2016-05-27 08:20] LABS: ABSOLUTE BASOPHIL COUNT 0 /CUMM (0.0-0.2); ABSOLUTE EOSINOPHIL COUNT 0.7 /CUMM (0.0-0.7); ABSOLUTE LYMPH COUNT 1.2 /CUMM (1.2-3.4); ABSOLUTE MONOCYTE COUNT 0.5 /CUMM (0.10-0.60); BASOPHIL % 0.8 % (0.0-2.0); GRANULOCYTE % 45.1 % (42.2-75.2); HEMATOCRIT 31.7 % (37-47); MEAN CORPUSCULAR HGB 25.6 PG (27.0-31.0); MEAN CORPUSCULAR HGB CONC 32.3 G/DL (33.0-37.0); MEAN CORPUSCULAR VOLUME 79.2 FL (81.0-99.0); MEAN PLATELET VOLUME 8.5 FL (7.4-10.4); PLATELET COUNT 220 /CUMM (130-400); RBC DISTRIBUTION WIDTH 22.3 % (11.5-14.5); RED BLOOD CELL CT 4.01 /CUMM (4.20-5.40); WHITE BLOOD CELL COUNT 4.5 /CUMM (4.8-10.8)
[2016-05-27 08:25] LABS: PT 11.2 SEC (9.4-12.5); PTT 31 SEC (25-37)
--- NOTE | 2016-05-27 11:02 | PN- Infect Dx ---
Subjective Subjective: Afebrile. She complains of right sided chest pain, which began yesterday, prompting a CTA of the chest, which revealed a large right pleural effusion. She does report continued chest pain on the right side of her chest, radiating to the back, with mild shortness of breath but with no cough. She denies dysuria though states she is urinating less. She continues to complain of right hip pain. Objective Last 24 Hrs of Vital Signs/I&O Vital Signs Date Time Temp Pulse Resp B/P Pulse O2 O2 Flow FiO2 Ox Delivery Rate 05/27 0745 110 22 91 Room Air 05/27 0609 90 140/60 05/27 0600 98.4 90 18 140/68 91 05/27 0313 92 Room Air 05/27 0154 98.3 97 19 130/70 94 Room Air 05/27 0000 94 Room Air 05/26 2224 98.0 103 20 140/60 95 Room Air 05/26 2100 98.0 103 20 140/80 05/26 1516 98 104/70 Intake & Output 05/27 1600 05/27 0800 05/27 0000 Intake Total 425 680 Output Total 800 1600 Balance -800 425 -920 Intake, IV 300 200 Intake, Oral 125 480 Output, Urine 800 1600 Physical Exam Other Physical Findings: She appears comfortable in no acute distress but resistant to any movement required for a proper examination Chest Pro-Line in the left upper chest with no inflammation at the site Lungs decreased breath sounds bilaterally, with exam limited Heart regular rhythm with no murmur Abdomen is soft, nontender with positive bowel sounds Extremities exam limited secondary to right hip pain Results Last 24 Hours of Lab Results: Laboratory Tests 05/27 05/26 0615 1720 Chemistry Sodium (137 - 145 mmol/L) 137 136 L Potassium (3.5 - 5.1 mmol/L) 4.3 4.4 Chloride (98 - 107 mmol/L) 97 L 98 Carbon Dioxide (22 - 30 mmol/L) 27 27 Anion Gap (5 - 16) 13 11 BUN (7 - 17 mg/dL) 15 14 Creatinine (0.5 - 1.0 mg/dL) 0.7 0.6 Estimated GFR (>60 ml/min) > 60 > 60 BUN/Creatinine Ratio (7 - 25 %) 21.4 23.3 Magnesium (1.6 - 2.3 mg/dL) 1.6 Lactate Dehydrogenase (313 - 618 U/L) 539 Troponin I (< 0.11 ng/ml) < 0.01 Total Protein (6.3 - 8.2 g/dL) 5.9 L Albumin (3.5 - 5.0 g/dL) 3.1 L Coagulation PT (9.4 - 12.5 SEC) 11.2 INR (0.90 - 1.19) 1.07 APTT (25 - 37 SEC) 31 Hematology CBC w Diff NO MAN DIFF REQ NO MAN DIFF REQ WBC (4.8 - 10.8 /CUMM) 4.5 L 5.0 RBC (4.20 - 5.40 /CUMM) 4.01 L 4.21 Hgb (12.0 - 16.0 G/DL) 10.3 L 10.5 L Hct (37 - 47 %) 31.7 L 33.2 L MCV (81.0 - 99.0 FL) 79.2 L 78.9 L MCH (27.0 - 31.0 PG) 25.6 L 25.0 L RDW (11.5 - 14.5 %) 22.3 H 21.8 H Plt Count (130 - 400 /CUMM) 220 239 MPV (7.4 - 10.4 FL) 8.5 7.4 Gran % (42.2 - 75.2 %) 45.1 50.0 Lymphocytes % (20.5 - 51.1 %) 27.5 25.8 Monocytes % (1.7 - 9.3 %) 10.6 H 9.5 H Eosinophils % (0 - 5 %) 16.0 H 13.8 H Basophils % (0.0 - 2.0 %) 0.8 0.9 Absolute Granulocytes (1.4 - 6.5 /CUMM) 2.0 2.5 Absolute Lymphocytes (1.2 - 3.4 /CUMM) 1.2 1.3 Absolute Monocytes (0.10 - 0.60 /CUMM) 0.5 0.5 Absolute Eosinophils (0.0 - 0.7 /CUMM) 0.7 0.7 Absolute Basophils (0.0 - 0.2 /CUMM) 0 0 PUBS MCHC (33.0 - 37.0 G/DL) 32.3 L 31.6 L Last 24 Hours of Haris Results: Blood cultures May 26 (2 from venous and one from the line) negative Urine culture May 26 negative Recent Imaging Studies: CTA of the chest May 26 reveals a new large right pleural effusion, in part loculated with associated complete collapse of the right lower lobe and partial collapse of the right middle lobe and right upper lobes, with a few patchy airspace opacities within the right upper lobe and right middle lobe; no evidence of pulmonary emboli; several nodular opacities within the posterior aspect of the left upper lobe and within the superior segment of the left lower lobe CT of the abdomen and pelvis May 26 no acute intra-abdominal or pelvic process; enlarged spleen, also seen on the previous exam; air locules within the bladder and vagina, with no definite fistulous connections; healing fractures of the right superior and inferior pubic rami Assessment/Plan Impression: New right pleural effusion, possibly secondary to seeding from her recent bacteremia, with nodular opacities also noted, raising concern for septic pulmonary emboli, though her MONICA on this admission was negative. She remains afebrile with white blood cell count normal on Oxacillin now Day 43 of treatment for recurrent MSSA sepsis, felt most likely secondary to the Pro-Line catheter, which was removed 2 weeks ago, with her last positive blood cultures for Staph aureus 18 days ago. The pyuria, increased from previous urinalyses, is noted, but she has no urinary symptoms. The air locules within the bladder and vagina seen on the recent CT scan are of unclear significance, with no recent instrumentation, but with no evidence of fistula on the recent exam. Suggestion: 1. Await right thoracentesis 2. Ensure that she is not injecting any drugs into her Pro-Line catheter 3. Follow-up recent blood and urine cultures 4. Continue Oxacillin
--- NOTE | 2016-05-27 12:06 | Cons- Pulmonary ---
General Information and HPI Consulting Request Date of Consult: 05/27/16 Requested By: Dr. Delgado Reason for Consult: abnromal ct, pleural effusion Source of Information: patient Exam Limitations: no limitations History of Present Illness: Consultation for an abnormal CT chest: Pleural effusion on right, loculated, RLL atelectasis, RML and RUL partial atelectasis. Patchy airspace opacities. Several areas associated with small volume gas that are concerning for abscess formation. Complicated history including DM, hx of necrotizing fasciitis of perineum, OM of pubic symphysis. Multiple surgical interventions. MSSA bacteremia, currently on Oxacillin therapy second month. History of C.diff. Proline catheter likely source of mssa bactermia. Now with CT sherwin findings above, CT performed after patient has had right sided chest pain. Dyspnea on exertion, no cough. No fevers, normal wbc. Allergies/Medications Allergies: Coded Allergies: codeine (Intermediate, HIVES 05/05/16) nickel (Intermediate, RASH 05/05/16) adhesive tape (Mild, RASH 05/05/16) duloxetine (Intermediate, NAUSEA 05/05/16) hydrocodone (GI UPSET (ESOPHAGITIS) 05/05/16) ibuprofen (GI UPSET (ESOPHAGITIS) 05/05/16) Home Med List: Albuterol Sulfate (Proair Hfa) 90 MCG HFA.AER.AD 2 PUF INH Q4-6 PRN PRN SOB ( Reported) Clonidine HCl 0.1 MG TABLET 0.1 MG PO Q8 Anxiety Stop if you feel lightheaded or dizzy. Stop if your systolic blood pressure is below 90. Diphenhydramine HCl (Benadryl) 25 MG CAPSULE 1 CAP PO Q6 PRN ITCHING ( Reported) Ergocalciferol (Vitamin D2) (Drisdol) 50,000 UNIT CAPSULE 1 CAP PO QW Supplement Please take one of these medications every week for the next eight weeks. After that, you will be required to take one every two weeks for mainainance of your vitamin D Levels. Ferrous Sulfate 325 MG (65 MG IRON) TABLET.DR 325 MG PO TID IRON DEFICIENCY Hydrocortisone Acetate (Micort-Hc) 2.5 % CREAM.APPL 1 DEMETRA TOP TID ITCHING ( Reported) Hydroxyzine HCl 50 MG TABLET 1 TAB PO TID PRN itching Hydroxyzine HCl 50 MG TABLET 100 MG PO Q6-PRN PRN Anxiety or Itching Insulin Aspart (Novolog) 100 UNIT/ML VIAL 0 SC SEE ADMIN CRITERIA Diabetes Your insulin coverage was changed while in hospital. Sliding Scale Blood Sugar Less that 80mg/dl Initiate Hypoglycemia protocol 80-150 mg/dl 12 units 151-200 mg/dl 14 units 201-250 mg/dl 16 units 251-300 mg/dl 18 units 301-350 mg/dl 20 units 351-400 mg/dl 22 units More than 400 mg/dl 24 units call MD Please check your blood sugar at least three times a day. Inform your doper about this change. Insulin Detemir (Levemir) 100 UNIT/ML VIAL 50 UNITS SC BID DM (Reported) Ondansetron HCl (Zofran) 4 MG TABLET 1 TAB PO Q6-8P PRN nausea Oxacillin Sodium 2 GRAM VIAL.PORT 2,000 MG IV Q4 Sepsis Please dose 2000mg. Q4. IV. 100ml 0.9% NaCL Last dose to be administered on 06/10/16. Oxycodone HCl (Roxicodone) 15 MG TABLET 1 TAB PO Q4 HRS NEEDED PRN SEVERE PAIN Pregabalin (Lyrica) 150 MG CAPSULE 1 CAP PO BID NEUROPATHY (Reported) Propranolol HCl 20 MG TABLET 1 TAB PO BID ANXIETY (Reported) Current Medications: Current Medications Sig/Shahla Start time Last Medication Dose Route Stop Time Status Admin Albuterol Sulfate 2 PUF Q4-6 PRN PRN 05/06 0100 AC INH Baclofen 10 MG Q6P PRN 05/08 2030 AC 05/13 PO 0859 Clonidine 0.1 MG Q8 05/080 AC 05/27 PO 0609 Cyclobenzaprine HCl 10 MG AT BEDTIME 05/23 2200 AC 05/26 PO 2100 Dextrose/Sodium 1,000 ML Q20H 05/27 0945 AC 05/27 Chloride IV 1011 Dicyclomine HCl 20 MG 4 TIMES/DAY PRN 05/08 2030 AC PO Diphenhydramine HCl 50 MG .STK-MED ONE 05/26 2139 DC IM 05/26 2140 Diphenhydramine HCl 25 MG Q6P PRN 05/19 1200 AC 05/25 PO 2140 Ferrous Sulfate 325 MG TID 05/21 1600 AC 05/27 PO 1011 Heparin Sodium 5,000 UNIT Q8 05/06 0600 DC 05/26 (Porcine) SC 2120 Hydromorphone HCl 1 MG ONCE ONE 05/27 0800 DC 05/27 IV 05/27 0801 0809 Hydromorphone HCl 1.5 MG Q4P PRN 05/26 1645 AC 05/27 IV 1005 Hydromorphone HCl 1 MG ONCE ONE 05/26 1515 DC 05/26 IV 05/26 1516 1516 Hydromorphone HCl 1 MG Q4P PRN 05/23 2245 DC 05/26 IV 1333 Hydroxyzine HCl 100 MG Q6-PRN PRN 05/13 1545 AC 05/20 PO 2247 Insulin Aspart 0 TIDAC 05/20 1700 DC 05/25 SC 1415 Insulin Detemir 25 UNITS BID 05/27 1000 CAN SC Insulin Detemir 10 UNITS ONCE ONE 05/27 0945 DC 05/27 SC 05/27 0946 1006 Insulin Detemir 50 UNITS BID 05/06 1000 DC 05/26 SC 2102 Insulin Human Regular 0 Q6 05/27 1200 DC SC Insulin Human Regular 0 Q6 05/27 1200 AC SC Lorazepam 0.5 MG ONCE ONE 05/27 0800 DC 05/27 IV 05/27 0801 0809 Lorazepam 1 MG ONCE ONE 05/27 0245 DC 05/27 IV 05/27 0246 0245 Lorazepam 1 MG ONCE ONE 05/26 2300 DC 05/26 IV 05/26 2301 2255 Lorazepam 1 MG ONCE ONE 05/26 1745 DC 05/26 IV 05/26 1746 1744 Magnesium Chloride 64 MG DAILY 05/21 1246 AC 05/27 PO 1005 Oxacillin Sodium 2,000 MG Q4H 05/23 1030 AC 05/27 Sodium Chloride 100 ML IV 1006 Oxycodone HCl 15 MG Q8P PRN 05/23 1730 AC 05/26 PO 1733 Pregabalin 150 MG BID 05/27 1000 AC 05/27 PO 1005 Pregabalin 150 MG BID 05/06 0046 DC 05/25 PO 2137 Review of Systems Comments 18 point Review of Systems performed. Positive and negative pertinent findings are deliniated in the HPI. Otherwise the ROS is negative. 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 FH: cirrhosis Psychosocial History Where Do You Live? Home Who Do You Live With? with friend Primary Language: Citizen Of [place] Smoking Status: Current Everyday Smoker ETOH Use: denies use Illicit Drug Use: denies illicit drug use Living Will? no Power of Fruit [employer] Veget[employer] Factory Worker/HCP? no Functional Ability ADLs Independent: dressing, eating, toileting, bathing. Ambulation: independent IADLs Independent: shopping, housework, finances, food prep, telephone, transportation , medication admin. Exam & Diagnostic Data Last 24 Hrs of Vital Signs/I&O Vital Signs Date Time Temp Pulse Resp B/P Pulse O2 O2 Flow FiO2 Ox Delivery Rate 05/27 0745 110 22 91 Room Air 05/27 0609 90 140/60 05/27 0600 98.4 90 18 140/68 91 05/27 0313 92 Room Air 05/27 0154 98.3 97 19 130/70 94 Room Air 05/27 0000 94 Room Air 05/26 2224 98.0 103 20 140/60 95 Room Air 05/26 2100 98.0 103 20 140/80 05/26 1516 98 104/70 Intake & Output 05/27 1600 05/27 0800 05/27 0000 Intake Total 425 680 Output Total 800 1600 Balance -800 425 -920 Intake, IV 300 200 Intake, Oral 125 480 Output, Urine 800 1600 Physical Exam Other Physical Findings: General - Alert, awake and oriented HEENT - normocephalic, atraumatic Cardiovascular - S1, S2 Lungs - diminished breath sounds bilaterally, left-sided central catheter Abdomen - soft, bowel sounds positive, no tenderness Extremities - without edema or cyanosis Last 48 Hrs of Labs/Haris: Laboratory Tests 05/27/16 0615: Anion Gap 13, Estimated GFR > 60, BUN/Creatinine Ratio 21.4, Magnesium 1.6, Lactate Dehydrogenase 539, Troponin I < 0.01, Total Protein 5.9 L, Albumin 3.1 L, PT 11.2, INR 1.07, APTT 31, CBC w Diff NO MAN DIFF REQ, RBC 4.01 L, MCV 79.2 L, MCH 25.6 L, RDW 22.3 H, MPV 8.5, Gran % 45.1, Lymphocytes % 27.5, Monocytes % 10.6 H, Eosinophils % 16.0 H, Basophils % 0.8, Absolute Granulocytes 2.0, Absolute Lymphocytes 1.2, Absolute Monocytes 0.5, Absolute Eosinophils 0.7, Absolute Basophils 0, PUBS MCHC 32.3 L 05/26/16 1720: Anion Gap 11, Estimated GFR > 60, BUN/Creatinine Ratio 23.3, CBC w Diff NO MAN DIFF REQ, RBC 4.21, MCV 78.9 L, MCH 25.0 L, RDW 21.8 H, MPV 7.4, Gran % 50.0, Lymphocytes % 25.8, Monocytes % 9.5 H, Eosinophils % 13.8 H, Basophils % 0.9, Absolute Granulocytes 2.5, Absolute Lymphocytes 1.3, Absolute Monocytes 0.5, Absolute Eosinophils 0.7, Absolute Basophils 0, PUBS MCHC 31.6 L 05/26/16 1045: Urinalysis LIGHT H, Urine Color YEL, Urine Clarity HAZY H, Urine pH 6.0, Ur Specific [place] 1.025, Urine Protein NEG, Urine Ketones NEG, Urine Nitrite NEG, Urine Bilirubin NEG, Urine Urobilinogen 0.2, Ur Leukocyte Esterase LARGE H, Ur Microscopic SEDIMENT EXAMINED, Urine RBC 1-3, Urine WBC > 75 H, Ur Epithelial Cells MOD H, Urine Mucus RARE, Urine Hemoglobin TRACE-INTACT, Urine Glucose NEG 05/26/16 1000: Troponin I < 0.01 05/26/16 0845: D-Dimer 950 H Assessment/Plan Impression/Plan: Impression Pleural effusion on right, loculated, RLL atelectasis, RML and RUL partial atelectasis. Patchy airspace opacities. MSSA bacteremia, C.diff. Plan -IR guided pleural drainage and indwelling pleural catheter insertion -will evaluate pleural fluid - check cytology, microbiology and lights criteria including t.protein, cell count, ldh -f/u Dr. Dunbar's recommendations -DVT prophylaxis at all times Consult Acknowledgment - Thank you for your consult request.
--- NOTE | 2016-05-27 16:51 | CT SCAN REPORT ---
PROCEDURE: CT Guided Chest Tube Placement. INDICATION: Large right pleural effusion. ACCESS: 6 Fr. One-Step Needle REQUESTING PRACTITIONER: MICHEL ROSARIO MD Interventional Radiologist: Can Dunaway M.D. CONSENT: Informed consent was obtained from the patient prior to the procedure. During this process, the procedure and potential alternatives were explained along with the intended outcome and benefits. The risks of the procedure, including the possibility of an unsuccessful procedure as well as the risk of not doing the procedure were discussed. The patient was given the opportunity to ask any questions regarding the procedure and appeared competent to make medical decisions. A signed consent form which documents this discussion was placed in the medical record. A timeout procedure was performed. HISTORY: SIS MARTINI is a 40 years old Female with shortness of breath. A recent chest x-ray demonstrates a right pleural effusion. The patient was referred for CT-guided right chest tube placement. MEDICATIONS: - 10ml 1% lidocaine. - Sedation was provided by the anesthesia department. Please see their note for detailed findings. TECHNIQUE/FINDINGS: Appropriate pre-procedure medical history and imaging studies were reviewed. The patient was placed in the left side down decubitus position on the scanner table. CT images of the right thorax were obtained to localize a large pleural effusion. Images were permanently saved to the record. An area of the patient's right back was prepped and draped in the standard sterile fashion. 10 mL of 1% lidocaine was used to obtain local anesthesia of the skin and deeper tissues. A standard small bore needle was introduced to sample fluid and demonstrate a safe access route. A 6 Tamazight one step needle was then used to access the pleural cavity. Nonclotting blood-tinged fluid was aspirated. A guidewire was then placed through the introducer into the chest. The access site was then sequentially dilated using dilators sized 8, 10 and 12 Tamazight. A 12 Tamazight pigtail catheter was then advanced over the wire into the pleural cavity. The wire was removed and the catheter was secured to the skin with a single suture, StatLock device and a sterile dressing was placed over the site. The catheter was then connected to a closed chest drainage system. Approximately 1 L of nonclotting, blood-tinged fluid was drained. The closed drainage system was then clamped off. The patient was recovered from sedation by the anesthesia department and returned to the floor following verbal and written instructions. The patient tolerated the procedure well without evidence of complications. IMPRESSION: Successful CT-guided placement of right-sided pleural drain as described above. RECOMMENDATIONS: Findings and case discussed with Dinh Rosario M.D. Primary team will manage closed chest drainage system.
--- NOTE | 2016-05-27 17:26 | Cons- Thoracic Surgery ---
General Information and HPI Consulting Request Date of Consult: 05/27/16 Requested By: ERIBERTO MORATAYA M.D Reason for Consult: Evaluate large right pleural effusion Source of Information: patient, old records, PCP Exam Limitations: no limitations History of Present Illness: I was asked to evaluate Ms. Urias who is a 40-year-old woman who has had a prolonged hospitalization for multiple problems of many of them infectious. She was recently being evaluated with hopes for discharge and began complaining of right-sided pleuritic chest pain. A CT scan of the chest was done showing a an unsuspected large right pleural effusion with significant atelectasis associated with it. A pleural catheter has been placed for drainage and thoracic surgical evaluation is asked for help in management and treatment. Allergies/Medications Allergies: Coded Allergies: codeine (Intermediate, HIVES 05/05/16) nickel (Intermediate, RASH 05/05/16) adhesive tape (Mild, RASH 05/05/16) duloxetine (Intermediate, NAUSEA 05/05/16) hydrocodone (GI UPSET (ESOPHAGITIS) 05/05/16) ibuprofen (GI UPSET (ESOPHAGITIS) 05/05/16) Home Med List: Albuterol Sulfate (Proair Hfa) 90 MCG HFA.AER.AD 2 PUF INH Q4-6 PRN PRN SOB ( Reported) Clonidine HCl 0.1 MG TABLET 0.1 MG PO Q8 Anxiety Stop if you feel lightheaded or dizzy. Stop if your systolic blood pressure is below 90. Diphenhydramine HCl (Benadryl) 25 MG CAPSULE 1 CAP PO Q6 PRN ITCHING ( Reported) Ergocalciferol (Vitamin D2) (Drisdol) 50,000 UNIT CAPSULE 1 CAP PO QW Supplement Please take one of these medications every week for the next eight weeks. After that, you will be required to take one every two weeks for mainainance of your vitamin D Levels. Ferrous Sulfate 325 MG (65 MG IRON) TABLET.DR 325 MG PO TID IRON DEFICIENCY Hydrocortisone Acetate (Micort-Hc) 2.5 % CREAM.APPL 1 DEMETRA TOP TID ITCHING ( Reported) Hydroxyzine HCl 50 MG TABLET 1 TAB PO TID PRN itching Hydroxyzine HCl 50 MG TABLET 100 MG PO Q6-PRN PRN Anxiety or Itching Insulin Aspart (Novolog) 100 UNIT/ML VIAL 0 SC SEE ADMIN CRITERIA Diabetes Your insulin coverage was changed while in hospital. Sliding Scale Blood Sugar Less that 80mg/dl Initiate Hypoglycemia protocol 80-150 mg/dl 12 units 151-200 mg/dl 14 units 201-250 mg/dl 16 units 251-300 mg/dl 18 units 301-350 mg/dl 20 units 351-400 mg/dl 22 units More than 400 mg/dl 24 units call MD Please check your blood sugar at least three times a day. Inform your publications inspector about this change. Insulin Detemir (Levemir) 100 UNIT/ML VIAL 50 UNITS SC BID DM (Reported) Ondansetron HCl (Zofran) 4 MG TABLET 1 TAB PO Q6-8P PRN nausea Oxacillin Sodium 2 GRAM VIAL.PORT 2,000 MG IV Q4 Sepsis Please dose 2000mg. Q4. IV. 100ml 0.9% NaCL Last dose to be administered on 06/10/16. Oxycodone HCl (Roxicodone) 15 MG TABLET 1 TAB PO Q4 HRS NEEDED PRN SEVERE PAIN Pregabalin (Lyrica) 150 MG CAPSULE 1 CAP PO BID NEUROPATHY (Reported) Propranolol HCl 20 MG TABLET 1 TAB PO BID ANXIETY (Reported) Current Medications: Current Medications Sig/Shahla Start time Last Medication Dose Route Stop Time Status Admin Albuterol Sulfate 2 PUF Q4-6 PRN PRN 05/06 0100 AC INH Baclofen 10 MG Q6P PRN 05/08 2030 AC 05/13 PO 0859 Clonidine 0.1 MG Q8 05/080 AC 05/27 PO 1314 Cyclobenzaprine HCl 10 MG AT BEDTIME 05/23 2200 AC 05/26 PO 2100 Dextrose/Sodium 1,000 ML Q20H 05/27 0945 AC 05/27 Chloride IV 1011 Dicyclomine HCl 20 MG 4 TIMES/DAY PRN 05/08 2030 AC PO Diphenhydramine HCl 50 MG .STK-MED ONE 05/26 2140 DC IM 05/26 2141 Diphenhydramine HCl 25 MG Q6P PRN 05/19 1200 AC 05/25 PO 2140 Ferrous Sulfate 325 MG TID 05/21 1600 AC 05/27 PO 1011 Heparin Sodium 5,000 UNIT Q8 05/06 0600 DC 05/26 (Porcine) SC 2120 Hydromorphone HCl 1 MG ONCE ONE 05/27 1245 DC 05/27 IV 05/27 1246 1313 Hydromorphone HCl 1 MG ONCE ONE 05/27 0800 DC 05/27 IV 05/27 0801 0809 Hydromorphone HCl 1.5 MG Q4P PRN 05/26 1645 AC 05/27 IV 1005 Hydroxyzine HCl 100 MG Q6-PRN PRN 05/13 1545 AC 05/20 PO 2247 Insulin Aspart 0 TIDAC 05/27 1700 AC SC Insulin Aspart 0 TIDAC 05/20 1700 DC 05/25 SC 1415 Insulin Detemir 25 UNITS BID 05/27 1000 CAN SC Insulin Detemir 10 UNITS ONCE ONE 05/27 0945 DC 05/27 SC 05/27 0946 1006 Insulin Detemir 50 UNITS BID 05/06 1000 DC 05/26 SC 2102 Insulin Human Regular 0 Q6 05/27 1200 DC SC Insulin Human Regular 0 Q6 05/27 1200 DC SC Lidocaine 1 ML .STK-MED ONE 05/27 1415 DC ID 05/27 1416 Lorazepam 0.5 MG ONCE ONE 05/27 0800 DC 05/27 IV 05/27 0801 0809 Lorazepam 1 MG ONCE ONE 05/27 0245 DC 05/27 IV 05/27 0246 0245 Lorazepam 1 MG ONCE ONE 05/26 2300 DC 05/26 IV 05/26 2301 2255 Lorazepam 1 MG ONCE ONE 05/26 1745 DC 05/26 IV 05/26 1746 1744 Magnesium Chloride 64 MG DAILY 05/21 1246 AC 05/27 PO 1005 Oxacillin Sodium 2,000 MG Q4H 05/23 1030 AC 05/27 Sodium Chloride 100 ML IV 1321 Oxycodone HCl 15 MG Q8P PRN 05/23 1730 AC 05/26 PO 1733 Pregabalin 150 MG BID 05/27 1000 AC 05/27 PO 1005 Past History Medical History Neurological: NONE EENT: hearing loss Cardiovascular: NONE Respiratory: asthma Gastrointestinal: necrotizing fasciitis of the perineum Hepatic: NONE Renal: left pararenal abscess Musculoskeletal: OSTEOMYELITIS OF PUBIS PUBIS FX Psychiatric: anxiety, chronic pain disorder, depression, opioid dependence, POLYSUBSTANCE ABUSE NARCOTIC DEPENDENCE SUICIDAL IDEATION Endocrine: INSULIN DEPENDENT DIABETES - noncompliant Blood Disorders: anemia Cancer(s): NONE 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 FH: cirrhosis Psychosocial History Where Do You Live? Home Who Do You Live With? with friend Primary Language: [place] Smoking Status: Current Everyday Smoker ETOH Use: denies use Illicit Drug Use: denies illicit drug use Living Will? no Power of Engineer Booster And Exhauster/HCP? no Functional Ability ADLs Independent: dressing, eating, toileting, bathing. Ambulation: independent IADLs Independent: shopping, housework, finances, food prep, telephone, transportation , medication admin. Review of Systems Review of Systems: Is notable for some right-sided chest pain which is worse now at the catheter site. She says her breathing is improved with significantly less dyspnea. She has had no fevers or night sweats. The rest of her current 12 point review of systems unremarkable. Exam & Diagnostic Data Vital Signs and I&O Vital Signs Date Time Temp Pulse Resp B/P Pulse O2 O2 Flow FiO2 Ox Delivery Rate 05/27 1314 101 140/70 05/27 0745 110 22 91 Room Air 05/27 0609 90 140/60 05/27 0600 98.4 90 18 140/68 91 05/27 0313 92 Room Air 05/27 0154 98.3 97 19 130/70 94 Room Air 05/27 0000 94 Room Air 05/26 2224 98.0 103 20 140/60 95 Room Air 05/26 2100 98.0 103 20 140/80 Intake & Output 05/27 1600 05/27 0800 05/27 0000 05/26 1600 05/26 0000 Intake Total 425 680 650 250 250 Output Total 800 3996 015 1236 Balance -800 425 - 250 Intake, IV 300 200 250 150 250 Intake, Oral 125 480 400 100 Number 0 Bowel Movements Output, Urine [phone] Physical Exam: On physical examination she appears well. Her skin is warm and well perfused no suspicious lesions noted. The sclerae are anicteric and mucous membranes are moist. There is no cervical or subclavicular lymphadenopathy. Her breath sounds are diminished on the right side. There is a pleural catheter in place and is draining serosanguineous fluid for a total of 1200 mL. Her cardiac exam shows a regular rhythm and rate no murmurs or sounds. The abdomen is soft and nontender with no masses. Periphery shows no cyanosis clubbing or edema. Her neurologic exam is grossly normal motor and sensory function. Last 24 Hours of Labs: Laboratory Tests 05/27 05/27 05/27 1515 1500 1500 Miscellaneous Phlebotomy Draw Site R THORACENTESIS Other Body Source Fluid WBC Pending Fld Total RBCs Counted Pending Fluid Glucose (mg/dL) 77 Fluid Total Protein (g/dL) 4.1 Fluid Albumin (g/dL) 2.0 Fluid LDH (U/L) 2142 Fluid Amylase (U/L) < 30 Pleural pH (PH) 7.25 05/27 0615 Chemistry Sodium (137 - 145 mmol/L) 137 Potassium (3.5 - 5.1 mmol/L) 4.3 Chloride (98 - 107 mmol/L) 97 L Carbon Dioxide (22 - 30 mmol/L) 27 Anion Gap (5 - 16) 13 BUN (7 - 17 mg/dL) 15 Creatinine (0.5 - 1.0 mg/dL) 0.7 Estimated GFR (>60 ml/min) > 60 BUN/Creatinine Ratio (7 - 25 %) 21.4 Magnesium (1.6 - 2.3 mg/dL) 1.6 Lactate Dehydrogenase (313 - 618 U/L) 539 Troponin I (< 0.11 ng/ml) < 0.01 Total Protein (6.3 - 8.2 g/dL) 5.9 L Albumin (3.5 - 5.0 g/dL) 3.1 L Coagulation PT (9.4 - 12.5 SEC) 11.2 INR (0.90 - 1.19) 1.07 APTT (25 - 37 SEC) 31 Hematology CBC w Diff NO MAN DIFF REQ WBC (4.8 - 10.8 /CUMM) 4.5 L RBC (4.20 - 5.40 /CUMM) 4.01 L Hgb (12.0 - 16.0 G/DL) 10.3 L Hct (37 - 47 %) 31.7 L MCV (81.0 - 99.0 FL) 79.2 L MCH (27.0 - 31.0 PG) 25.6 L RDW (11.5 - 14.5 %) 22.3 H Plt Count (130 - 400 /CUMM) 220 MPV (7.4 - 10.4 FL) 8.5 Gran % (42.2 - 75.2 %) 45.1 Lymphocytes % (20.5 - 51.1 %) 27.5 Monocytes % (1.7 - 9.3 %) 10.6 H Eosinophils % (0 - 5 %) 16.0 H Basophils % (0.0 - 2.0 %) 0.8 Absolute Granulocytes (1.4 - 6.5 /CUMM) 2.0 Absolute Lymphocytes (1.2 - 3.4 /CUMM) 1.2 Absolute Monocytes (0.10 - 0.60 /CUMM) 0.5 Absolute Eosinophils (0.0 - 0.7 /CUMM) 0.7 Absolute Basophils (0.0 - 0.2 /CUMM) 0 PUBS MCHC (33.0 - 37.0 G/DL) 32.3 L Assessment/Plan Assessment/Plan The patient has a very large new onset right pleural effusion. Given the appearance I am suspicious that there was some degree of trauma. However her scan also shows him evidence of lung parenchymal abscesses. This does not appear like a grossly infected fluid collection. I think it is a simple effusion and I think complete drainage should allow for resolution. Will allow her to drain over the course of the next 24-48 hours and then reevaluate with repeat CT scan of the chest. Catheter along with pulmonary and for now I can remain on low wall suction. Consult Acknowledgment - Thank you for your consult request.
[2016-05-27 17:30] VITALS: BP 140/90
--- NOTE | 2016-05-27 21:08 | NUR ---
MD IS AWARE OF PT'S PAIN LEVEL. PT REMAINS ON DILAUDID 1.5MG Q 4. PT HAD A PIGTAIL CATH PLACED ATTACHED TO CHEST TUBE TO LWS. SURGICAL PA'S AWARE. PT'S SUGAR WAS 68 SINCE PT WAS NPO. MD AWARE. ORANGE JUICE AND FOOD WAS GIVEN SUGAR WENT UP TO 120'S. NO FURTHER ORDERS. SPOKE TO MD TO HAVE HIM PUT CHEST TUBE ORDER IN. NO FURTHER ORDERS CONTINUE TO MONITOR.
[2016-05-27 22:31] VITALS: BP 132/90
--- NOTE | 2016-05-28 06:19 | PN- Housestaff ---
MARLENE FARFAN,MICHEL 05/28/16 0619: Subjective Follow-up For: Pleural effusion Bactermia Chronic pain syndrome Subjective: Patient seen and examined at bedside. Day 1 s/p pleural catheter placement. Drainage amounting to about 2L of blood tinged fluid. She starts crying as soon as I come into the room, complaining of persistent pain in the right sided chest , flank and hip. She demands that IV Dilaudid be increased to 2mg Q4. She refuses to take any PO narcotics, however. Denies any palpitations, shortness of breath, fever, chills, nausea, vomiting, abdominal pain, diarrhea. Review of Systems Constitutional: Reports: see HPI. Objective Last 24 Hrs of Vital Signs/I&O Vital Signs Date Time Temp Pulse Resp B/P Pulse O2 O2 Flow FiO2 Ox Delivery Rate 05/28 1536 98.2 107 20 126/72 97 05/28 1422 Room Air 2.0L 05/28 1327 100 130/60 05/28 0810 105 97 Nasal 2.0L Cannula 05/28 0800 97 Nasal 2.0L Cannula 05/28 0645 98.0 106 20 136/74 86 Room Air 05/28 0532 102 120/70 05/28 0000 91 Room Air 05/27 2231 98.1 108 20 132/90 92 Room Air 05/27 2157 105 120/80 Intake & Output 05/28 1600 05/28 0800 05/28 0000 Intake Total 850 450 550 Output Total 450 937 8431 Balance 0 -270 -1525 Intake, IV 250 300 300 Intake, Oral 600 150 250 Output, Chest 954 062 2223 Tube Drainage Output, Urine 500 Physical Exam General Appearance: Alert, Oriented X3, Cooperative, Mild Distress Other Physical Findings: Skin cellulitis on the right shoulder healing well with scar formation, no oozing or drainage. No signs of infection around the Pro-line insertion site without drainage/erythema/tenderness. 4 x 2 unstageable pressure ulcer in the coccyx - moist yellow slough with periwound edge light purple discolored hue and scant drainage - improving. HEENT: Mucous Membr. moist/pink Cardiovascular: Regular Rate, Normal S1, Normal S2, No Murmurs, Gallops, Rubs Pulmonary: CTA, no crackles/rales/rhonchi Abdomen: Normal Bowel Sounds, Soft, Severe tenderenss in right flank. MSK: Severe pain in the right hip with limited ROM. Extremities: No Clubbing, No Cyanosis, No Edema Current Medications: Current Medications Sig/Shahla Start time Last Medication Dose Route Stop Time Status Admin Albuterol Sulfate 2 PUF Q4-6 PRN PRN 05/06 0100 AC INH Baclofen 10 MG Q6P PRN 05/08 2030 AC 05/13 PO 0859 Clonidine 0.1 MG Q8 05/08 2200 AC 05/28 PO 1327 Cyclobenzaprine HCl 10 MG AT BEDTIME 05/23 2200 AC 05/27 PO 2157 Dextrose/Sodium 1,000 ML Q20H 05/27 0945 DC 05/27 Chloride IV 1011 Dicyclomine HCl 20 MG 4 TIMES/DAY PRN 05/08 2030 AC PO Diphenhydramine HCl 25 MG Q6P PRN 05/19 1200 AC 05/25 PO 2140 Ferrous Sulfate 325 MG TID 05/21 1600 AC 05/28 PO 1633 Hydromorphone HCl 2 MG Q4P PRN 05/28 0930 AC 05/28 IV 1810 Hydromorphone HCl 1 MG ONCE ONE 05/28 08 DC 05/28 IV 05/28 0801 0806 Hydromorphone HCl 1.5 MG Q4P PRN 05/26 1645 DC 05/28 IV 0526 Hydroxyzine HCl 100 MG Q6-PRN PRN 05/13 1545 AC 05/20 PO 2247 Insulin Aspart 0 TIDAC 05/27 1700 AC 05/28 SC 1810 Lorazepam 0.5 MG ONCE ONE 05/28 799 DC 05/28 IV 05/28 0801 0806 Lorazepam 0.5 MG ONCE ONE 05/27 2014 DC 05/27 IV 05/27 2016 203 Magnesium Chloride 64 MG DAILY 05/21 1246 AC 05/28 PO 1056 Oxacillin Sodium 2,000 MG Q4H 05/23 1030 AC 05/28 Sodium Chloride 100 ML IV 06/13 2355 1810 Oxycodone HCl 15 MG Q4 HRS NEEDED PRN 05/28 0900 AC 05/28 PO 1637 Oxycodone HCl 15 MG Q8P PRN 05/23 1730 AC 05/26 PO 1733 Pregabalin 150 MG BID 05/27 1000 AC 05/28 PO 1056 Quetiapine Fumarate 100 MG AT BEDTIME 05/28 2200 AC PO Quetiapine Fumarate 25 MG Q8P PRN 05/28 1515 AC 05/28 PO 1703 Last 24 Hrs of Lab/Haris Results Last 24 Hrs of Labs/Mics: Laboratory Tests 05/28/16 0540: CBC w Diff NO MAN DIFF REQ, RBC 4.22, MCV 79.1 L, MCH 25.6 L, RDW 22.9 H, MPV 8.5, Gran % 51.4, Lymphocytes % 26.4, Monocytes % 9.1, Eosinophils % 12.6 H, Basophils % 0.5, Absolute Granulocytes 2.3, Absolute Lymphocytes 1.2, Absolute Monocytes 0.4, Absolute Eosinophils 0.6, Absolute Basophils 0, PUBS MCHC 32.4 L Assessment/Plan Assessment: Ms. Urias is 40-year-old female with a past medical history of osteomyelitis of pubis, necrotizing fasciitis of the perineum, hysterectomy, colostomy reversed, left renal abscess, C. difficile colitis,anxiety, depression, chronic pain disorder,chronic back pain,chronic anemia, poorly controlled IDDM 2, DKA, recent fall with minimal displaced pelvic fracture, right shoulder cellulitis s/ p incision and drainage on oxacillin to finish a course of 4 weeks (untill May 12) discharged 04/18/16, presenting with a chief complaint of worsening right pelvic and hip pain. Now found to have pulmonary findings on CTA including a large pleural effusion, concerning for pneumonia, septic embolism and lung abscess. # Right sided pleural effusion - CTA (05/27) shows a new large right pleural effusion with collapse of the right lung and patchy airspace opacities concerning for pneumonia. There are also severeal areas of intraparenchymal hypoattenuation and small volume gas concerning for areas of pulmonary abscess formation. In the left lung there are 6 mm subpleural nodular opacity and several nodular opacities, concerning for septic emboli. Pyelonephritis cannot be excluded. - Pleural catheter placement (05/28) - Drained about 1L of blood-tinged fluid. * ID/Pulm/Thoracic surgery consulted, follow recs * Continue low wall suction per thoracic surg rec. * Follow pleural fluid analysis * Monitor off abx pending above per ID rec * Check CBC daily, trend WBC * Vitals per protocol, watch for fever # S. aureus bacteremia Patient found to be septic on admission with fever, tachycardia and first set of blood cultures growing staph aureus. Patient was placed on vancomycin in addition to oxacillin on which patient had already been for cellulitis prior the this admission. Patient went into a septic shock on 05/06 which resolved with aggressive IVF resucsitation. Initial blood cultures and a series of repeat bcx' s grew MSSA. TTE and MONICA negative for endocarditis. Blood culture from the Pro line grew GPC before the peripheral line. This raised the suspicion that the source of infection could be from the Pro-line. Blood cultures from 05/12 growing GNR. Pro-line removed on 05/13. Tip of the catheter growing GNR, GPC, and staph coag negative. Repeat blood cultures from 05/13 and 05/15 NGTD - MRI pelvis (05/07): - Bone marrow edema within the pubic rami extending to the right acetabulum compatible with posttraumatic inflammatory change. Soft tissue edema surrounds the rami fractures without evidence of a focal, organized fluid collection in this region. Small right hip joint effusion nonspecific but possibly indicative of early infectious arthritis. New Pro-line placement on 05/20. - WBC scan (05/09): Grossly unremarkable except for moderately intense diffuse lung activity (nonspecific), possibly due to a diffuse inflammatoryprocess in the lungs * ID consulted, follow recs * Continue IV oxacillin, to be discontinued on 06/10/16 * Follow wound care recs # Chronic pain syndrome Patient carries a hx of chronic pain disorder. Patient does have a fracture in the right hip from a fall a month ago. Ortho saw the patient and recommended conservative management without any further interventions at that time. Ortho was contacted again on 05/13 and no interventions were recommended. * Increase IV Dilaudid 1mg IV Q4P to 2mg IV Q4P * Cont Roxicodone to 15mg PO Q8P * Minimize IV narcotics * Pain management was consulted - recommended discontuing IV Dilaudid # Substernal/pleuritic chest pain Patient endorses significant amount of substernal chest pain, worsened with breathing. She also reports associated dyspnea. * Follow CTA chest given elevated D-dimer in 900s. * Check troponin and EKG to r/o ACS - negative # Dysuria Patient reports a new onset of right flank pain with dysuria and oliguria, concerning for possible pyelonephritis. CVA tenderness positive on physical exam. UA remakrable for a large amount of leuk esterase and WBC, and moderate epith cells. * Hold onto antibiotic tx for UTI * Follow urine culture # Anemia most likely 2/2 iron deficiency - Resolved Patient's hemoglobin dropped to 7.1 on 05/22. Hgb dropped to 6.9 despite receiving 1 unit of pRBC. She received 2 additional units with an appropriate response. [place] stool test negative. Iron studies significant for low Fe and slightly elevated TIBC. Patient was transfused a total of 3 units on 05/22. Most likely anemia of chronic disease vs. ACBL vs. Fe deficiency. * Cont iron supplementation * Transfuse if Hgb < 7 # Hyponatremia -Resolved Patient presented with a sodium level of 114 (corrected Na 122), consistent with acute on chronic hyponatremia. This is most attributable to pseudohyponatremia in the setting of hyperglycemia, possibly with a component of SIADH/sepsis/poor intake. Patient is currently has no significant neurological symptoms. Serum & urine osmolality WNL. # Poor controlled diabetes * Novolog SSI with accuchecks * Continue Levemir 50U SQ BID # Mood disorders * Psych consulted, appreciate recs * Clonidine 0.1 mg PO Q8P, if opiate withdrawal symptoms. Hold Clonidine for blood pressure less than 90 mmHg systolic, less than 60 mmHg diastolic or pulse less than 55 BPM. * Baclofen 10 mg PO every 6 hours, as needed, for muscle cramps. * Dicyclomine 20 mg PO every 6 hours, as needed, for GI cramps. * Hydroxyzine 100 mg PO every 6 hours, as needed, for anxiety and itching. # Diet regular diet # Moderate-Severe pain pathway # DVT prophylaxis heparin subcutaneous # Full code Problem List: 1. Pleural effusion 2. Bacteremia 3. Right hip pain 4. Cellulitis 5. Fracture of right inferior pubic ramus Pain Ratin Pain Location: Right sided chest/abdomen/hip Pain Goal: Pain 4 or less Pain Plan: Dilaudid 2mg IV Q4P Roxicodone to 15mg PO Q8 PRN Tomorrow's Labs & Rationales: CBC to monitor for infection Consulting Request: Consulting Specialty: Infectious Disease Consulting Physician: Gerald Dunbar MD Reason for Consult: bacteremia RAFIA FARFAN,ERIBERTO 05/28/16 1416: Attending MD Review Statement Attending Statement Attending MD Statement: examined this patient, discuss w/resident/PA/CLOCK REPAIR TECHNICIAN, agreed w/resident/PA/CLOCK REPAIR TECHNICIAN, reviewed EMR data (avail), discussed with nursing, discussed with case mgmt, amended to note Attending Assessment/Plan: Patient seen and examined. We entered room she was sleeping soundly and did not pain acute distress. When she awoke for the round she complained of generalized pain insisting on high doses of Dilaudid. I suggested resuming her home regimen of oxycodone however she was adamant on not taking the medication. I Counseled her on the need to try oral analgesia 6 as opposed to strictly intravenous medications and she later agreed. We will be increasing her Dilaudid to 2 mg every 4 hours but have encouraged her to utilize her oxycodone as well. On examination she has diminished breath sounds in the right lung base. Heart sounds are regular with no audible murmur. Proline site is intact with mild excoriation beckwith. Apparently she has allergy to adhesives. She has no peripheral edema. She has tenderness. Thoracocentesis was done yesterday with placement of a pigtail catheter. About 2 L of fluid was drained yesterday. Fluid was bloody in nature. Her last fall was 2 months ago that resulted in her pelvic fracture. Imaging since then has not shown evidence of an effusion. It is noted that a week ago she became anemic requiring blood transfusion. Workup for bleeding was negative at that time. The progressed very content suggested old blood. Her H&H has been stable. Input output results noted. Problems: 1. Large right-sided pleural effusion 2. Concern for septic pulmonary emboli. 3. Status post fall with pelvic fracture in March 2016. 4. Chronic pain syndrome. Opioid dependence. Status post rapid methadone taper in the hospital in 2016. 5. Diabetes mellitus. 6. MSSA bacteremia Plan: -Continue drainage with a pigtail catheter per recommendations of the cardiothoracic surgery service. -Pleural fluid cultures are currently negative. Follow up cytology. -Follow-up with ID service for antibiotics recommendations. She is currently on Oxacillin for MSSA bacteremia. -Please recall psychiatry service regarding evaluating patient for another inpatient rapid methadone taper. She is also insistent on having IV Ativan as well. Please follow-up with psychiatry service regarding medication therapy for her anxiety.
[2016-05-28 06:45] VITALS: BP 136/74
[2016-05-28 08:08] LABS: ABSOLUTE BASOPHIL COUNT 0 /CUMM (0.0-0.2); ABSOLUTE EOSINOPHIL COUNT 0.6 /CUMM (0.0-0.7); ABSOLUTE GRANULOCYTE CT 2.3 /CUMM (1.4-6.5); ABSOLUTE LYMPH COUNT 1.2 /CUMM (1.2-3.4); ABSOLUTE MONOCYTE COUNT 0.4 /CUMM (0.10-0.60); BASOPHIL % 0.5 % (0.0-2.0); GRANULOCYTE % 51.4 % (42.2-75.2); HEMATOCRIT 33.4 % (37-47); MEAN CORPUSCULAR HGB 25.6 PG (27.0-31.0); MEAN CORPUSCULAR HGB CONC 32.4 G/DL (33.0-37.0); MEAN CORPUSCULAR VOLUME 79.1 FL (81.0-99.0); MEAN PLATELET VOLUME 8.5 FL (7.4-10.4); PLATELET COUNT 235 /CUMM (130-400); RBC DISTRIBUTION WIDTH 22.9 % (11.5-14.5); RED BLOOD CELL CT 4.22 /CUMM (4.20-5.40); WHITE BLOOD CELL COUNT 4.4 /CUMM (4.8-10.8)
--- NOTE | 2016-05-28 08:22 | NUR ---
0730- SURG ADI PHIPPS NOTIFIED OF DARK RED BLOOD DRAINING FROM PIGTAIL CHEST CATHETER TO R POSTERIOR CHEST. 800ML DRAINED OVERNIGHT. ADDITIONAL 150 ML SINCE 0600. PER SURG ADI PHIPPS, HE IS AWARE OF ABOVE AND IS EXPECTED. O2 SAT 97% ON 2L NC. HR 105. 0745- CXR ORDERED, PT CRYING AND REFUSING. DR. ROSARIO ASSESSED AT BEDSIDE. IV DILAUDID AND ATIVAN ORDERED PRIOR TO PORTABLE CXR AND TO BE GIVEN. 0815-PORTABLE CXR TAKEN. RESULTS PENDING.
[2016-05-28 08:30] LABS: EOSINOPHIL % 12.6 % (0-5)
--- NOTE | 2016-05-28 08:58 | RADIOLOGY REPORT ---
EXAMINATION: XR PORTABLE CHEST CLINICAL INFORMATION: Follow-up pleural effusion with chest tube. COMPARISON: Chest CT of 05/26/2016 and 05/27/2016 TECHNIQUE: Portable view of the chest was obtained. FINDINGS: The tip of the left internal jugular central catheter appears to terminate in the mid superior vena cava. A moderate right pleural effusion has decreased in size after pleural catheter placement. There is persistent opacity of the right lower lobe and middle lobe. Also, subsegmental atelectasis is present in the right upper lobe. No pulmonary edema, pneumothorax or other significant interval change. IMPRESSION: Moderate right pleural effusion has decreased after pleural catheter placement. There is atelectasis and/or consolidation within the right lung base. No new pulmonary findings compared to the chest CT of 05/26/2016.
--- NOTE | 2016-05-28 09:41 | NUR ---
PHYSICAL THERAPY: ATTEMPTED TO SEE PATIENT THIS A.M., PATIENT REFUSING P.T. STATING THAT SHE "IS IN A LOT OF PAIN SINCE CHEST TUBE PLACEMENT" THIS VERBAL ENCOURAGEMENT AND EDUCATION, PATIENT IS AGREEABLE TO BEDLEVEL THEREX ONLY AFTER PAIN MEDICATIONS ARE ADMINISTERED. P.T. F/U WITH RN REGARDING MED SCHEDULE AND WILL F/U APPROPRIATE.
--- NOTE | 2016-05-28 12:57 | PN- Pulmonary ---
Subjective HPI/Critical Care Issues: Patient seen and examined this morning. She is been afebrile and saturating 97% 2 L nasal cannula. She was saturating as low as 86% on room air however earlier this morning. White blood cell count is 4.4. She status post a right-sided pleural drain catheter. The 12 Angolan in nature. Objective Current Medications: Current Medications Sig/Shahla Start time Last Medication Dose Route Stop Time Status Admin Albuterol Sulfate 2 PUF Q4-6 PRN PRN 05/06 0100 AC INH Baclofen 10 MG Q6P PRN 05/08 2030 AC 05/13 PO 0859 Clonidine 0.1 MG Q8 05/08 2200 AC 05/28 PO 0532 Cyclobenzaprine HCl 10 MG AT BEDTIME 05/23 2200 AC 05/27 PO 2157 Dextrose/Sodium 1,000 ML Q20H 05/27 0945 DC 05/27 Chloride IV 1011 Dicyclomine HCl 20 MG 4 TIMES/DAY PRN 05/08 2030 AC PO Diphenhydramine HCl 25 MG Q6P PRN 05/19 1200 AC 05/25 PO 2140 Ferrous Sulfate 325 MG TID 05/21 1600 AC 05/28 PO 1056 Hydromorphone HCl 2 MG Q4P PRN 05/28 0930 AC 05/28 IV 1023 Hydromorphone HCl 1 MG ONCE ONE 05/28 0800 DC 05/28 IV 05/28 0801 0806 Hydromorphone HCl 0.6 MG ONCE ONE 05/27 1815 DC 05/27 IV 05/27 1816 1823 Hydromorphone HCl 1.5 MG Q4P PRN 05/26 1645 DC 05/28 IV 0526 Hydroxyzine HCl 100 MG Q6-PRN PRN 05/13 1545 AC 05/20 PO 2247 Insulin Aspart 0 TIDAC 05/27 1700 AC 05/28 SC 1023 Insulin Human Regular 0 Q6 05/27 1200 DC SC Ketamine HCl 50 MG .STK-MED ONE 05/27 1341 DC IM 05/27 1342 Lidocaine 1 ML .STK-MED ONE 05/27 1415 DC ID 05/27 1416 Lorazepam 0.5 MG ONCE ONE 05/28 0800 DC 05/28 IV 05/28 0801 0806 Lorazepam 0.5 MG ONCE ONE 05/27 2014 DC 05/27 IV 05/27 Magnesium Chloride 64 MG DAILY 05/21 1246 AC 05/28 PO 1056 Midazolam HCl 5 MG .STK-MED ONE 05/27 1421 DC IM 05/27 1422 Midazolam HCl 5 MG .STK-MED ONE 05/27 1341 DC IM 05/27 1342 Oxacillin Sodium 2,000 MG Q4H 05/23 1030 AC 05/28 Sodium Chloride 100 ML IV 06/13 2355 1056 Oxycodone HCl 15 MG Q4 HRS NEEDED PRN 05/28 0900 AC PO Oxycodone HCl 15 MG Q8P PRN 05/23 1730 AC 05/26 PO 1733 Pregabalin 150 MG BID 05/27 1000 AC 05/28 PO 1056 Vital Signs & I&O Last 24 Hrs of Vitals and I&O: Vital Signs Date Time Temp Pulse Resp B/P Pulse O2 O2 Flow FiO2 Ox Delivery Rate 05/28 08 105 97 Nasal 2.0L Cannula 05/28 08 97 Nasal 2.0L Cannula 05/28 0645 98.0 106 20 136/74 86 Room Air 05/28 0532 102 120/70 05/28 0000 91 Room Air 05/27 2231 98.1 108 20 132/90 92 Room Air 05/27 2157 105 120/80 05/27 1730 102 19 140/90 05/27 1314 101 140/70 Intake & Output 05/28 1600 05/28 0800 05/28 0000 Intake Total 450 550 Output Total 720 2075 Balance -270 -1525 Intake, IV 300 300 Intake, Oral 150 250 Output, Chest 720 2075 Tube Drainage Exam Other Physical Findings: General - Alert, awake and oriented HEENT - normocephalic, atraumatic Cardiovascular - S1, S2 Lungs - diminished breath sounds bilaterally, left-sided central catheter, 12 Angolan indwelling pleural catheter is present Abdomen - soft, bowel sounds positive, no tenderness Extremities - without edema or cyanosis Results Last 24 Hrs of Lab Results: Laboratory Tests 05/28/16 0540: CBC w Diff NO MAN DIFF REQ, RBC 4.22, MCV 79.1 L, MCH 25.6 L, RDW 22.9 H, MPV 8.5, Gran % 51.4, Lymphocytes % 26.4, Monocytes % 9.1, Eosinophils % 12.6 H, Basophils % 0.5, Absolute Granulocytes 2.3, Absolute Lymphocytes 1.2, Absolute Monocytes 0.4, Absolute Eosinophils 0.6, Absolute Basophils 0, PUBS MCHC 32.4 L 05/27/16 1515: Phlebotomy Draw Site R THORACENTESIS, Pleural pH 7.25 05/27/16 1500: Fluid WBC 889 H, Fld Mesothelial Cells 7, Fld Total RBCs Counted 181668 H 05/27/16 1500: Lymphocytes 16, % Normal PMNs 77, Fluid Glucose 77, Fluid Total Protein 4.1, Fluid Albumin 2.0, Fluid LDH 2142, Fluid Amylase < 30 Impression/Plan Impression/Plan Impression/Plan: Impression Pleural effusion on right, loculated, RLL atelectasis, RML and RUL partial atelectasis. Patchy airspace opacities. MSSA bacteremia, C.diff. Hemorrhagic exudative pleural fluid Plan -Continue drainage of the 12 Angolan indwelling pleural catheter -will evaluate pleural fluid -Hemorrhagic exudative fluid cytologies pending, follow-up all labs and microbiology -f/u Dr. Dunbar's recommendations -DVT prophylaxis at all times
--- NOTE | 2016-05-28 14:38 | PN- Psychiatry ---
Assessment/Plan Impression: Identifying Info: 40-year-old single female well known to this service presents to emergency department on May 06 with severe right hip pain. She was hyperglycemic and hypotensive on admission was transferred to critical care unit now on 2NA being treated for bacteremia and pulmonary abscess. SUBJECTIVE "I'm in pain." Pt continues to endorse pain and high anxiety related to it. States IV ativan is the only medication that has been helpful to her. Educated re: issues with ativan and her current respiratory status but pt continues to ask for medication. Offered alternatives to help with baseline mood instability and anxiety. Is agreeable to Seroquel. OBJECTIVE Mental Status Exam Presentation/Appearance: Cooperative with evaluation. Hospital garb. Lying in bed Orientation: Oriented x4 Sensorium: Awake and alert Eye contact: Appropriate Affect: Somewhat blunted but congruent with stated mood Mood: Dysphoric, anxious Depression: Endorses Anxiety: Endorses Thought Content: - Denies SI/HI, AH/VH, PI. States and also believes they will not kill themselves. - Denies Hopeless/Helpless Thoughts Thought Process: Linear and goal directed with some perseveration on medications Speech: Normal tone and rate Language: Hungarian, fluent Judgment: Fair Insight: Fair Cognition: Memory: Grossly intact Attention/Concentration: Grossly intact MMSE: Did not assess Brief ROS Gait: Impaired, pt is fall risk Sleep: Reports is poor r/t pain Appetite: Adequate ASSESSMENT 40 yo SCF with pain and high medication tolerance is requesting benzos for anxiety. At this point she is agreeable to Seroquel. 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 Please start seroquel 100mg po qhs. 2. Please start seroquel 25mg po prn anxiety q8h. 3. Pt to call Dual dx [facility] for intake appointment post d/c from [facility]. Thank you for including psychiatry in this case we'll continue to follow. Yrn Morillo APRN, pager [phone] Subjective Subjective: . Objective Last 24 Hrs of Vital Signs/I&O Vital Signs Date Time Temp Pulse Resp B/P Pulse O2 O2 Flow FiO2 Ox Delivery Rate 05/28 1327 100 130/60 05/28 0810 105 97 Nasal 2.0L Cannula 05/28 08 97 Nasal 2.0L Cannula 05/28 0645 98.0 106 20 136/74 86 Room Air 05/28 0532 102 120/70 05/28 0000 91 Room Air 05/27 2231 98.1 108 20 132/90 92 Room Air 05/27 2157 105 120/80 05/27 1730 102 19 140/90 Intake & Output 05/28 1600 05/28 0800 05/28 0000 Intake Total 450 550 Output Total 720 2075 Balance -270 -1525 Intake, IV 300 300 Intake, Oral 150 250 Output, Chest 720 2075 Tube Drainage
[2016-05-28 15:36] VITALS: BP 126/72
--- NOTE | 2016-05-28 16:18 | PN- Infect Dx ---
Subjective Subjective: Afebrile. She notes right chest discomfort at the site of the chest tube. She continues to complain of right hip pain, though this has improved with pain meds. Objective Last 24 Hrs of Vital Signs/I&O Vital Signs Date Time Temp Pulse Resp B/P Pulse O2 O2 Flow FiO2 Ox Delivery Rate 05/28 1536 98.2 107 20 126/72 97 05/28 1422 Room Air 2.0L 05/28 1327 100 130/60 05/28 0810 105 97 Nasal 2.0L Cannula 05/28 0800 97 Nasal 2.0L Cannula 05/28 0645 98.0 106 20 136/74 86 Room Air 05/28 0532 102 120/70 05/28 0000 91 Room Air 05/27 2231 98.1 108 20 132/90 92 Room Air 05/27 2157 105 120/80 05/27 1730 102 19 140/90 Intake & Output 05/28 1600 05/28 0800 05/28 0000 Intake Total 850 450 550 Output Total 198 564 6968 Balance 0 -270 -1525 Intake, IV 250 300 300 Intake, Oral 600 150 250 Output, Chest 847 028 3476 Tube Drainage Output, Urine 500 Physical Exam Other Physical Findings: She appears comfortable in no acute distress Lungs decreased breath sounds on the right Chest pleural catheter in place in the right chest, with serosanguineous fluid draining; Pro-Line catheter in the left upper chest with no inflammation at the site Heart regular rhythm with no murmur Extremities no cyanosis, clubbing or edema Results Last 24 Hours of Lab Results: Laboratory Tests 05/28 0540 Hematology CBC w Diff NO MAN DIFF REQ WBC (4.8 - 10.8 /CUMM) 4.4 L RBC (4.20 - 5.40 /CUMM) 4.22 Hgb (12.0 - 16.0 G/DL) 10.8 L Hct (37 - 47 %) 33.4 L MCV (81.0 - 99.0 FL) 79.1 L MCH (27.0 - 31.0 PG) 25.6 L RDW (11.5 - 14.5 %) 22.9 H Plt Count (130 - 400 /CUMM) 235 MPV (7.4 - 10.4 FL) 8.5 Gran % (42.2 - 75.2 %) 51.4 Lymphocytes % (20.5 - 51.1 %) 26.4 Monocytes % (1.7 - 9.3 %) 9.1 Eosinophils % (0 - 5 %) 12.6 H Basophils % (0.0 - 2.0 %) 0.5 Absolute Granulocytes (1.4 - 6.5 /CUMM) 2.3 Absolute Lymphocytes (1.2 - 3.4 /CUMM) 1.2 Absolute Monocytes (0.10 - 0.60 /CUMM) 0.4 Absolute Eosinophils (0.0 - 0.7 /CUMM) 0.6 Absolute Basophils (0.0 - 0.2 /CUMM) 0 PUBS MCHC (33.0 - 37.0 G/DL) 32.4 L Last 24 Hours of Haris Results: Blood cultures 3 May 26 negative Urine culture May 26 negative Right pleural fluid culture May 27 negative Recent Imaging Studies: Chest x-ray May 28, personally reviewed, reveals a decreased right pleural effusion, with persistent opacity of the right lower lobe and middle lobe Assessment/Plan Impression: Stable status post drainage of 2 L of serosanguineous pleural fluid from the right chest yesterday, with fluid suggestive of an exudate, but with no evidence of infection. The etiology of this hemorrhagic effusion is unclear, and it may be related to her recent trauma, though this was nearly 2 months ago. The nodular opacities seen on the CT scan raise concern for septic pulmonary emboli, though her MONICA, done earlier on this admission, was negative. She remains afebrile with white blood cell count normal on Oxacillin now Day 44 of treatment for recurrent MSSA sepsis, felt most likely secondary to the Pro-Line catheter, which was removed 15 days ago, with her last positive blood cultures for Staph aureus 19 days ago and with blood cultures obtained 18 days ago negative for Staph aureus. The significance of the pyuria is unclear, with the urine culture negative, though the recent CT scan did reveal air locules within the bladder and vagina, raising concern for a possible fistula. Suggestion: 1. Would review CT findings with Radiology to further evaluate for possible fistula 2. Follow-up pleural fluid culture and cytology 3. Continue Oxacillin
[2016-05-28 22:08] VITALS: BP 104/70
[2016-05-29 06:14] LABS: ABSOLUTE BASOPHIL COUNT 0 /CUMM (0.0-0.2); ABSOLUTE EOSINOPHIL COUNT 0.7 /CUMM (0.0-0.7); ABSOLUTE LYMPH COUNT 1.2 /CUMM (1.2-3.4); ABSOLUTE MONOCYTE COUNT 0.5 /CUMM (0.10-0.60); BASOPHIL % 0.7 % (0.0-2.0); EOSINOPHIL % 15.7 % (0-5); GRANULOCYTE % 46.3 % (42.2-75.2); HEMATOCRIT 30.2 % (37-47); MEAN CORPUSCULAR HGB 25.7 PG (27.0-31.0); MEAN CORPUSCULAR HGB CONC 32.2 G/DL (33.0-37.0); MEAN CORPUSCULAR VOLUME 79.9 FL (81.0-99.0); MEAN PLATELET VOLUME 8.2 FL (7.4-10.4); PLATELET COUNT 216 /CUMM (130-400); RBC DISTRIBUTION WIDTH 23.3 % (11.5-14.5); RED BLOOD CELL CT 3.78 /CUMM (4.20-5.40); WHITE BLOOD CELL COUNT 4.4 /CUMM (4.8-10.8)
[2016-05-29 06:15] VITALS: BP 120/72
--- NOTE | 2016-05-29 06:21 | PN- Housestaff ---
MARLENE FARFAN,ROXANNE 05/29/16 0621: Subjective Follow-up For: Pleural effusion Bactermia Chronic pain syndrome Subjective: Patient seen and examined at bedside. Day 2 s/p pleural catheter placement. Drainage amounting to about -0.5L of pink fluid. Patient endroses persistent pain in the right sided chest, flank and hip, under control with the current regimen. She demands that IV Dilaudid be increased to 2mg Q3 though. She agrees to take any PO narcotics first. Denies any palpitations, shortness of breath, fever, chills, nausea, vomiting, abdominal pain, diarrhea. Review of Systems Constitutional: Reports: see HPI. Objective Last 24 Hrs of Vital Signs/I&O Vital Signs Date Time Temp Pulse Resp B/P Pulse O2 O2 Flow FiO2 Ox Delivery Rate 05/29 0615 97.7 101 20 120/72 93 Nasal 2.0L Cannula 05/29 0550 120/72 05/29 0000 Nasal 2.0L Cannula 05/28 2208 97.9 126 20 104/70 91 Room Air 05/28 2135 126 104/70 05/28 1600 96 Nasal 2.0L Cannula 05/28 1536 98.2 107 20 126/72 97 05/28 1422 Room Air 2.0L 05/28 1327 100 130/60 Intake & Output 05/29 1600 05/29 0800 05/29 0000 Intake Total 520 680 Output Total 1000 230 Balance -480 450 Intake, IV 270 200 Intake, Oral 250 480 Output, Chest 230 Tube Drainage Output, Urine 1000 Physical Exam General Appearance: Alert, Oriented X3, Cooperative, No Acute Distress Other Physical Findings: Skin cellulitis on the right shoulder healing well with scar formation, no oozing or drainage. No signs of infection around the Pro-line insertion site without drainage/erythema/tenderness. 4 x 2 unstageable pressure ulcer in the coccyx - moist yellow slough with periwound edge light purple discolored hue and scant drainage - improving. HEENT: Mucous Membr. moist/pink Cardiovascular: Regular Rate, Normal S1, Normal S2, No Murmurs, Gallops, Rubs Pulmonary: CTA, no crackles/rales/rhonchi Abdomen: Normal Bowel Sounds, Soft, Severe tenderenss in right flank. MSK: Severe pain in the right hip with limited ROM. Extremities: No Clubbing, No Cyanosis, No Edema Current Medications: Current Medications Sig/Shahla Start time Last Medication Dose Route Stop Time Status Admin Albuterol Sulfate 2 PUF Q4-6 PRN PRN 05/06 0100 AC INH Baclofen 10 MG Q6P PRN 05/08 2030 AC 05/13 PO 0859 Clonidine 0.1 MG Q8 05/08 2200 AC 05/29 PO 0550 Cyclobenzaprine HCl 10 MG AT BEDTIME 05/23 2200 AC 05/28 PO 2135 Dicyclomine HCl 20 MG 4 TIMES/DAY PRN 05/08 2030 AC PO Diphenhydramine HCl 50 MG .STK-MED ONE 05/28 2219 DC IM 05/28 222 Diphenhydramine HCl 25 MG Q6P PRN 05/19 1200 AC 05/29 PO 0556 Ferrous Sulfate 325 MG TID 05/21 1600 AC 05/28 PO 2135 Hydromorphone HCl 2 MG Q4P PRN 05/28 0930 AC 05/29 IV 0548 Hydromorphone HCl 1.5 MG Q4P PRN 05/26 1645 DC 05/28 IV 0526 Hydroxyzine HCl 100 MG Q6-PRN PRN 05/13 1545 AC 05/20 PO 2247 Insulin Aspart 0 TIDAC 05/27 1700 AC 05/29 SC 0816 Magnesium Chloride 64 MG DAILY 05/21 1246 AC 05/28 PO 1056 Oxacillin Sodium 2,000 MG Q4H 05/23 1030 AC 05/29 Sodium Chloride 100 ML IV 06/13 2355 0552 Oxycodone HCl 15 MG Q4 HRS NEEDED PRN 05/28 0900 AC 05/28 PO 1637 Oxycodone HCl 15 MG Q8P PRN 05/23 1730 AC 05/26 PO 1733 Pregabalin 150 MG BID 05/27 1000 AC 05/28 PO 2135 Quetiapine Fumarate 100 MG AT BEDTIME 05/28 2200 AC 05/28 PO 2135 Quetiapine Fumarate 25 MG Q8P PRN 05/28 1515 AC 05/28 PO 1703 Last 24 Hrs of Lab/Ahris Results Last 24 Hrs of Labs/Mics: Laboratory Tests 05/29/16 0555: CBC w Diff MAN DIFF ORDERED, RBC 3.78 L, MCV 79.9 L, MCH 25.7 L, RDW 23.3 H, MPV 8.2, Gran % 46.3, Lymphocytes % 27.0, Monocytes % 10.3 H, Eosinophils % 15.7 H, Basophils % 0.7, Absolute Granulocytes 2.0, Segmented Neutrophils 35 L , Band Neutrophils 1, Absolute Lymphocytes 1.2, Lymphocytes 39, Monocytes 6, Absolute Monocytes 0.5, Eosinophils 17 H, Absolute Eosinophils 0.7, Basophils 1 , Absolute Basophils 0, Metamyelocytes 1, Platelet Estimate ADEQUATE, Polychromasia 1+, Hypochromic-Microcytic 1+, Poikilocytosis 1+, Basophilic Stippling RARE, Anisocytosis 1+, Microcytic Cells 1+, Ovalocytes 1+, PUBS MCHC 32.2 L, Fld Total RBCs Counted 100 Assessment/Plan Assessment: Ms. Urias is 40-year-old female with a past medical history of osteomyelitis of pubis, necrotizing fasciitis of the perineum, hysterectomy, colostomy reversed, left renal abscess, C. difficile colitis,anxiety, depression, chronic pain disorder,chronic back pain,chronic anemia, poorly controlled IDDM 2, DKA, recent fall with minimal displaced pelvic fracture, right shoulder cellulitis s/ p incision and drainage on oxacillin to finish a course of 4 weeks (untill May 12) discharged 04/18/16, presenting with a chief complaint of worsening right pelvic and hip pain. Now found to have pulmonary findings on CTA including a large pleural effusion, concerning for pneumonia, septic embolism and lung abscess. # Right sided pleural effusion - CTA (05/27) shows a new large right pleural effusion with collapse of the right lung and patchy airspace opacities concerning for pneumonia. There are also severeal areas of intraparenchymal hypoattenuation and small volume gas concerning for areas of pulmonary abscess formation. In the left lung there are 6 mm subpleural nodular opacity and several nodular opacities, concerning for septic emboli. Pyelonephritis cannot be excluded. - Pleural catheter placement (05/28) - Drained about 1L of blood-tinged fluid. * ID/Pulm/Thoracic surgery consulted, follow recs * Continue low wall suction per thoracic surg rec. * Follow pleural fluid analysis * Monitor off abx pending above per ID rec * Check CBC daily, trend WBC * Vitals per protocol, watch for fever # S. aureus bacteremia Patient found to be septic on admission with fever, tachycardia and first set of blood cultures growing staph aureus. Patient was placed on vancomycin in addition to oxacillin on which patient had already been for cellulitis prior the this admission. Patient went into a septic shock on 05/06 which resolved with aggressive IVF resucsitation. Initial blood cultures and a series of repeat bcx' s grew MSSA. TTE and MONICA negative for endocarditis. Blood culture from the Pro line grew GPC before the peripheral line. This raised the suspicion that the source of infection could be from the Pro-line. Blood cultures from 05/12 growing GNR. Pro-line removed on 05/13. Tip of the catheter growing GNR, GPC, and staph coag negative. Repeat blood cultures from 05/13 and 05/15 NGTD - MRI pelvis (05/07): - Bone marrow edema within the pubic rami extending to the right acetabulum compatible with posttraumatic inflammatory change. Soft tissue edema surrounds the rami fractures without evidence of a focal, organized fluid collection in this region. Small right hip joint effusion nonspecific but possibly indicative of early infectious arthritis. New Pro-line placement on 05/20. - WBC scan (05/09): Grossly unremarkable except for moderately intense diffuse lung activity (nonspecific), possibly due to a diffuse inflammatoryprocess in the lungs * ID consulted, follow recs * Continue IV oxacillin, to be discontinued on 06/10/16 * Follow wound care recs # Chronic pain syndrome Patient carries a hx of chronic pain disorder. Patient does have a fracture in the right hip from a fall a month ago. Ortho saw the patient and recommended conservative management without any further interventions at that time. Ortho was contacted again on 05/13 and no interventions were recommended. * Increase IV Dilaudid 1mg IV Q4P to 2mg IV Q4P * Cont Roxicodone to 15mg PO Q8P * Minimize IV narcotics * Pain management was consulted - recommended discontuing IV Dilaudid # Substernal/pleuritic chest pain Patient endorses significant amount of substernal chest pain, worsened with breathing. She also reports associated dyspnea. * Follow CTA chest given elevated D-dimer in 900s. * Check troponin and EKG to r/o ACS - negative # Dysuria Patient reports a new onset of right flank pain with dysuria and oliguria, concerning for possible pyelonephritis. CVA tenderness positive on physical exam. UA remakrable for a large amount of leuk esterase and WBC, and moderate epith cells. * Hold onto antibiotic tx for UTI * Follow urine culture # Anemia most likely 2/2 iron deficiency - Resolved Patient's hemoglobin dropped to 7.1 on 05/22. Hgb dropped to 6.9 despite receiving 1 unit of pRBC. She received 2 additional units with an appropriate response. [place] stool test negative. Iron studies significant for low Fe and slightly elevated TIBC. Patient was transfused a total of 3 units on 05/22. Most likely anemia of chronic disease vs. ACBL vs. Fe deficiency. * Cont iron supplementation * Transfuse if Hgb < 7 # Hyponatremia -Resolved Patient presented with a sodium level of 114 (corrected Na 122), consistent with acute on chronic hyponatremia. This is most attributable to pseudohyponatremia in the setting of hyperglycemia, possibly with a component of SIADH/sepsis/poor intake. Patient is currently has no significant neurological symptoms. Serum & urine osmolality WNL. # Poor controlled diabetes * Novolog SSI with accuchecks * Continue Levemir 50U SQ BID # Mood disorders * Psych consulted, appreciate recs * Clonidine 0.1 mg PO Q8P, if opiate withdrawal symptoms. Hold Clonidine for blood pressure less than 90 mmHg systolic, less than 60 mmHg diastolic or pulse less than 55 BPM. * Baclofen 10 mg PO every 6 hours, as needed, for muscle cramps. * Dicyclomine 20 mg PO every 6 hours, as needed, for GI cramps. * Hydroxyzine 100 mg PO every 6 hours, as needed, for anxiety and itching. # Diet regular diet # Moderate-Severe pain pathway # DVT prophylaxis heparin subcutaneous # Full code Problem List: 1. Fall 2. Pleural effusion 3. Bacteremia 4. Right hip pain 5. Chronic pruritus 6. Pubic ramus fracture Pain Ratin Pain Location: Right hip/abdomen/chest Pain Goal: Pain 4 or less Pain Plan: Dilaudid 2mg IV Q4P Roxicodone to 15mg PO Q8 PRN Tomorrow's Labs & Rationales: CBC to monitor for infection Consulting Request: Consulting Specialty: Infectious Disease Consulting Physician: Gerald Dunbar MD Reason for Consult: bacteremia PARADAJOSE TAVERASLINDA 05/29/16 8079: Attending MD Review Statement Attending Statement Attending MD Statement: examined this patient, discuss w/resident/PA/[employer], agreed w/resident/PA/[employer], reviewed EMR data (avail), discussed with nursing, discussed with case mgmt Attending Assessment/Plan: Patient had chest tube Drainage of 1300 cc in last 24 hours. We'll continue to monitor the drainage for now. Uncontrolled diabetes-patient was off Levemir due to previous hypoglycemic episode. Resumed the Levemir and will follow up on blood sugar. Pain management consulted to help with pain meds management.
--- NOTE | 2016-05-29 11:13 | PN- Pulmonary ---
Subjective HPI/Critical Care Issues: Patient seen and examined. Improved dyspnea with drainage Afebrile and hemodynamically stable. Objective Current Medications: Current Medications Sig/Shahla Start time Last Medication Dose Route Stop Time Status Admin Albuterol Sulfate 2 PUF Q4-6 PRN PRN 05/06 0100 AC INH Baclofen 10 MG Q6P PRN 05/08 2030 AC 05/13 PO 0859 Clonidine 0.1 MG Q8 05/08 2200 AC 05/29 PO 0550 Cyclobenzaprine HCl 10 MG AT BEDTIME 05/23 2200 AC 05/28 PO 2135 Dicyclomine HCl 20 MG 4 TIMES/DAY PRN 05/08 2030 AC PO Diphenhydramine HCl 12.5 MG ONCE ONE 05/29 0915 DC 05/29 PO 05/29 0916 0930 Diphenhydramine HCl 50 MG .STK-MED ONE 05/28 2219 DC IM 05/28 2220 Diphenhydramine HCl 25 MG Q6P PRN 05/19 1200 AC 05/29 PO 0556 Ferrous Sulfate 325 MG TID 05/21 1600 AC 05/29 PO 0927 Hydromorphone HCl 0.4 MG ONCE ONE 05/29 0900 CAN IV 05/29 0901 Hydromorphone HCl 2 MG Q4P PRN 05/28 0930 AC 05/29 IV 0924 Hydroxyzine HCl 100 MG Q6-PRN PRN 05/13 1545 AC 05/20 PO 2247 Insulin Aspart 0 TIDAC 05/27 1700 AC 05/29 SC 0816 Insulin Detemir 25 UNITS BID 05/29 1000 AC SC Magnesium Chloride 64 MG DAILY 05/21 1246 AC 05/29 PO 0927 Oxacillin Sodium 2,000 MG Q4H 05/23 1030 AC 05/29 Sodium Chloride 100 ML IV 06/13 2355 0927 Oxycodone HCl 15 MG Q4 HRS NEEDED PRN 05/28 0900 AC 05/28 PO 1637 Oxycodone HCl 15 MG Q8P PRN 05/23 1730 AC 05/26 PO 1733 Pregabalin 150 MG BID 05/27 1000 AC 05/29 PO 0927 Quetiapine Fumarate 100 MG AT BEDTIME 05/28 2200 AC 05/28 PO 2135 Quetiapine Fumarate 25 MG Q8P PRN 05/28 1515 AC 05/28 PO 1703 Vital Signs & I&O Last 24 Hrs of Vitals and I&O: Vital Signs Date Time Temp Pulse Resp B/P Pulse O2 O2 Flow FiO2 Ox Delivery Rate 05/29 0615 97.7 101 20 120/72 93 Nasal 2.0L Cannula 05/29 0550 120/72 05/29 0000 Nasal 2.0L Cannula 05/28 2208 97.9 126 20 104/70 91 Room Air 05/28 2135 126 104/70 05/28 1600 96 Nasal 2.0L Cannula 05/28 1536 98.2 107 20 126/72 97 11 1422 Room Air 2.0L 05/28 1327 100 130/60 Intake & Output 05/29 1600 05/29 0800 05/29 0000 Intake Total 520 680 Output Total 1000 230 Balance -480 450 Intake, IV 270 200 Intake, Oral 250 480 Output, Chest 230 Tube Drainage Output, Urine 1000 Exam Other Physical Findings: General - Alert, awake and oriented HEENT - normocephalic, atraumatic Cardiovascular - S1, S2 Lungs - diminished breath sounds bilaterally, left-sided central catheter, 12 [place] indwelling pleural catheter is present Abdomen - soft, bowel sounds positive, no tenderness Extremities - without edema or cyanosis Results Last 24 Hrs of Lab Results: Laboratory Tests 05/29/16 0555: CBC w Diff MAN DIFF ORDERED, RBC 3.78 L, MCV 79.9 L, MCH 25.7 L, RDW 23.3 H, MPV 8.2, Gran % 46.3, Lymphocytes % 27.0, Monocytes % 10.3 H, Eosinophils % 15.7 H, Basophils % 0.7, Absolute Granulocytes 2.0, Segmented Neutrophils 35 L , Band Neutrophils 1, Absolute Lymphocytes 1.2, Lymphocytes 39, Monocytes 6, Absolute Monocytes 0.5, Eosinophils 17 H, Absolute Eosinophils 0.7, Basophils 1 , Absolute Basophils 0, Metamyelocytes 1, Platelet Estimate ADEQUATE, Polychromasia 1+, Hypochromic-Microcytic 1+, Poikilocytosis 1+, Basophilic Stippling RARE, Anisocytosis 1+, Microcytic Cells 1+, Ovalocytes 1+, PUBS MCHC 32.2 L, Fld Total RBCs Counted 100 Impression/Plan Impression/Plan Impression/Plan: Impression Pleural effusion on right, loculated, RLL atelectasis, RML and RUL partial atelectasis. Patchy airspace opacities. MSSA bacteremia, C.diff. Hemorrhagic exudative pleural fluid Plan -Continue drainage of the 12 [place] indwelling pleural catheter until reduced to about <100/24hrs -Hemorrhagic exudative fluid cytologies pending, follow-up all labs and microbiology -f/u Dr. Dunbar's recommendations -DVT prophylaxis at all times
[2016-05-29 14:03] VITALS: BP 110/88
--- NOTE | 2016-05-29 16:06 | PN- Psychiatry ---
Assessment/Plan Impression: Identifying Info: 40-year-old single female well known to this service presents to [facility] emergency department on May 06 with severe right hip pain. She was hyperglycemic and hypotensive on admission was transferred to critical care unit now on 2NA being treated for bacteremia and pulmonary abscess. SUBJECTIVE Patient continues to complain of pain and anxiety. Reports worry about stopping diluadid. States Seroquel just made her tired but she wants continue taking it. Brief ROS Gait: Impaired, pt is fall risk Sleep: Endorses quality sleep last night Appetite: Poor today OBJECTIVE Mental Status Exam Presentation/Appearance: Cooperative with evaluation. Hospital garb. Lying in bed Orientation: Oriented x4 Sensorium: Awake and alert Eye contact: Appropriate Affect: Somewhat blunted but congruent with stated mood, affect is brighter today Mood: Dysphoric, anxious Depression: Endorses Anxiety: Endorses Thought Content: - Denies SI/HI, AH/VH, PI. States and also believes they will not kill themselves. - Denies Hopeless/Helpless Thoughts Thought Process: Linear and goal directed with continued perseveration on medications Speech: Normal tone and rate Language: [place], fluent Judgment: Fair Insight: Fair Cognition: Memory: Grossly intact Attention/Concentration: Grossly intact MMSE: Did not assess ASSESSMENT 40 yo SCF with pain and high medication tolerance reports continued distress but some relief with Seroquel. Would likely benefit from increase in the evening dose in a few days to bring her closer to a mood stabilizing dose. 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 Continue psychotropic medication as currently ordered, we may recommend increase in Seroquel and a few days. 2. Pt to call [facility] for intake appointment post d/c from [facility]. 3. Continue to monitor blood glucose closely. Patient has tolerated Seroquel past but can increase blood sugars and lipids. Thank you for including psychiatry in this case we'll continue to follow. Yrn Morillo APRN, pager [phone] Subjective Subjective: .
--- NOTE | 2016-05-29 20:12 | NUR ---
1000- PT REFUSES SIZEWISE MATTRESS. DRESSING CHANGED TO OPEN AREAS TO COCCYX/BUTTOCKS. EDUCATED ON NEED TO REPOSITION FREQUENTLY.
[2016-05-29 22:53] VITALS: BP 120/70
--- NOTE | 2016-05-30 06:27 | PN- Housestaff ---
MARLENE FARFAN,MICHEL 05/30/16 0626: Subjective Follow-up For: Pleural effusion Bactermia Chronic pain syndrome Subjective: Patient seen and examined at bedside. Day 3 s/p pleural catheter placement. Drainage amounting to about 500cc of pink fluid over the past 24 hours. Patient endorses persistent pain in the right sided chest, flank and hip, under control with the current regimen. Denies any palpitations, shortness of breath, fever, chills, nausea, vomiting, abdominal pain, diarrhea. Review of Systems Constitutional: Reports: see HPI. Objective Last 24 Hrs of Vital Signs/I&O Vital Signs Date Time Temp Pulse Resp B/P Pulse O2 O2 Flow FiO2 Ox Delivery Rate 05/30 0651 97.9 97 20 120/74 96 Nasal 3.0L Cannula 05/30 0552 97 120/74 05/30 0000 96 Nasal 3.0L Cannula 05/29 2253 97.9 102 20 120/70 96 Nasal 3.0L Cannula 05/29 1403 97.9 103 20 110/88 95 Intake & Output 05/30 1600 05/30 0800 05/30 0000 Intake Total 780 440 Output Total 175 Balance 605 440 Intake, IV 300 200 Intake, Oral 480 240 Output, Chest 175 Tube Drainage Physical Exam General Appearance: Alert, Oriented X3, Cooperative, No Acute Distress Other Physical Findings: Skin cellulitis on the right shoulder healing well with scar formation, no oozing or drainage. No signs of infection around the Pro-line insertion site without drainage/erythema/tenderness. 4 x 2 unstageable pressure ulcer in the coccyx - moist yellow slough with periwound edge light purple discolored hue and scant drainage - improving. HEENT: Mucous Membr. moist/pink Cardiovascular: Regular Rate, Normal S1, Normal S2, No Murmurs, Gallops, Rubs Pulmonary: CTA, no crackles/rales/rhonchi Abdomen: Normal Bowel Sounds, Soft, Severe tenderenss in right flank. MSK: Severe pain in the right hip with limited ROM. Extremities: No Clubbing, No Cyanosis, No Edema Current Medications: Current Medications Sig/Shahla Start time Last Medication Dose Route Stop Time Status Admin Albuterol Sulfate 2 PUF Q4-6 PRN PRN 05/06 0100 AC INH Baclofen 10 MG Q6P PRN 05/08 2030 AC 05/29 PO 2113 Clonidine 0.1 MG Q8 05/08 2200 AC 05/30 PO 0552 Cyclobenzaprine HCl 10 MG AT BEDTIME 05/23 2200 AC 05/29 PO 2124 Dicyclomine HCl 20 MG 4 TIMES/DAY PRN 05/08 2030 AC PO Diphenhydramine HCl 12.5 MG ONCE ONE 05/29 0915 DC 05/29 PO 05/29 0916 0930 Diphenhydramine HCl 25 MG Q6P PRN 05/19 1200 AC 05/30 PO 0552 Ferrous Sulfate 325 MG TID 05/21 1600 AC 05/29 PO 2124 Hydromorphone HCl 0.4 MG ONCE ONE 05/29 0900 CAN IV 05/29 09 Hydromorphone HCl 2 MG Q4P PRN 05/28 0930 AC 05/30 IV 0541 Hydroxyzine HCl 100 MG Q6-PRN PRN 05/13 1545 AC 05/20 PO 2247 Insulin Aspart 0 TIDAC 05/27 1700 AC 05/29 SC 1806 Insulin Detemir 30 UNITS BID 05/30 1000 AC SC Insulin Detemir 25 UNITS BID 05/29 1000 DC 05/29 SC 2216 Lorazepam 0.5 MG ONCE ONE 05/29 1700 DC 05/29 IV 05/29 1701 1718 Magnesium Chloride 64 MG DAILY 05/21 1246 AC 05/29 PO 0927 Oxacillin Sodium 2,000 MG Q4H 05/23 1030 AC 05/30 Sodium Chloride 100 ML IV 06/13 2355 0552 Oxycodone HCl 15 MG Q4 HRS NEEDED PRN 05/28 0900 AC 05/29 PO 205 Oxycodone HCl 15 MG Q8P PRN 05/23 1730 DC 05/26 PO 1733 Pregabalin 150 MG BID 05/27 1000 AC 05/29 PO 2123 Quetiapine Fumarate 100 MG AT BEDTIME 05/28 2200 AC 05/29 PO 212 Quetiapine Fumarate 25 MG Q8P PRN 05/28 1515 AC 05/29 PO 1135 Last 24 Hrs of Lab/Haris Results Last 24 Hrs of Labs/Mics: Laboratory Tests 05/30/16 0545: CBC w Diff Pending, WBC Pending, RBC Pending, Hgb Pending, Hct Pending, MCV Pending, MCH Pending, RDW Pending, Plt Count Pending, MPV Pending, Gran % Pending, Lymphocytes % Pending, Monocytes % Pending, Eosinophils % Pending, Basophils % Pending, Absolute Granulocytes Pending, Absolute Lymphocytes Pending , Absolute Monocytes Pending, Absolute Eosinophils Pending, Absolute Basophils Pending, PUBS MCHC Pending Assessment/Plan Assessment: Ms. Urias is 40-year-old female with a past medical history of osteomyelitis of pubis, necrotizing fasciitis of the perineum, hysterectomy, colostomy reversed, left renal abscess, C. difficile colitis,anxiety, depression, chronic pain disorder,chronic back pain,chronic anemia, poorly controlled IDDM 2, DKA, recent fall with minimal displaced pelvic fracture, right shoulder cellulitis s/ p incision and drainage on oxacillin to finish a course of 4 weeks (untill May 12) discharged 04/18/16, presenting with a chief complaint of worsening right pelvic and hip pain. Now found to have pulmonary findings on CTA including a large pleural effusion, concerning for pneumonia, septic embolism and lung abscess. # Right sided pleural effusion - CTA (05/27) shows a new large right pleural effusion with collapse of the right lung and patchy airspace opacities concerning for pneumonia. There are also severeal areas of intraparenchymal hypoattenuation and small volume gas concerning for areas of pulmonary abscess formation. In the left lung there are 6 mm subpleural nodular opacity and several nodular opacities, concerning for septic emboli. Pyelonephritis cannot be excluded. - Pleural catheter placement (05/28) - Drained about 1L of blood-tinged fluid at the time of placement. * ID/Pulm/Thoracic surgery consulted, follow recs * Continue low wall suction per thoracic surg rec. * Follow pleural fluid analysis - hemorrhagic exudative fluid * Follow pleural cytology * Monitor off abx pending above per ID rec * Check CBC daily, trend WBC - WNL * Vitals per protocol, watch for fever # S. aureus bacteremia Patient found to be septic on admission with fever, tachycardia and first set of blood cultures growing staph aureus. Patient was placed on vancomycin in addition to oxacillin on which patient had already been for cellulitis prior the this admission. Patient went into a septic shock on 05/06 which resolved with aggressive IVF resucsitation. Initial blood cultures and a series of repeat bcx' s grew MSSA. TTE and MONICA negative for endocarditis. Blood culture from the Pro line grew GPC before the peripheral line. This raised the suspicion that the source of infection could be from the Pro-line. Blood cultures from 05/12 growing GNR. Pro-line removed on 05/13. Tip of the catheter growing GNR, GPC, and staph coag negative. Repeat blood cultures from 05/13 and 05/15 NGTD - MRI pelvis (05/07): - Bone marrow edema within the pubic rami extending to the right acetabulum compatible with posttraumatic inflammatory change. Soft tissue edema surrounds the rami fractures without evidence of a focal, organized fluid collection in this region. Small right hip joint effusion nonspecific but possibly indicative of early infectious arthritis. New Pro-line placement on 05/20. - WBC scan (05/09): Grossly unremarkable except for moderately intense diffuse lung activity (nonspecific), possibly due to a diffuse inflammatoryprocess in the lungs * ID consulted, follow recs * Continue IV oxacillin, to be discontinued on 06/10/16 * Follow wound care recs # Chronic pain syndrome Patient carries a hx of chronic pain disorder. Patient does have a fracture in the right hip from a fall a month ago. Ortho saw the patient and recommended conservative management without any further interventions at that time. Ortho was contacted again on 05/13 and no interventions were recommended. * Cont IV Dilaudid 2mg IV Q4P * Cont Roxicodone to 15mg PO Q8P * Minimize IV narcotics * Pain management was consulted about methadone taper, follow recs # Dysuria - Resolved Patient reports a new onset of right flank pain with dysuria and oliguria, concerning for possible pyelonephritis. CVA tenderness positive on physical exam. UA remakrable for a large amount of leuk esterase and WBC, and moderate epith cells. * Hold onto antibiotic tx for UTI * Follow urine culture - negative # Anemia most likely 2/2 iron deficiency - Resolved Patient's hemoglobin dropped to 7.1 on 05/22. Hgb dropped to 6.9 despite receiving 1 unit of pRBC. She received 2 additional units with an appropriate response. [place] stool test negative. Iron studies significant for low Fe and slightly elevated TIBC. Patient was transfused a total of 3 units on 05/22. Most likely anemia of chronic disease vs. ACBL vs. Fe deficiency. * Cont iron supplementation * Transfuse if Hgb < 7 # Hyponatremia - Resolved Patient presented with a sodium level of 114 (corrected Na 122), consistent with acute on chronic hyponatremia. This is most attributable to pseudohyponatremia in the setting of hyperglycemia, possibly with a component of SIADH/sepsis/poor intake. Patient is currently has no significant neurological symptoms. Serum & urine osmolality WNL. # Poor controlled diabetes * Novolog SSI with accuchecks * Continue Levemir 50U SQ BID # Mood disorders * Psych consulted, appreciate recs * Clonidine 0.1 mg PO Q8P, if opiate withdrawal symptoms. Hold Clonidine for blood pressure less than 90 mmHg systolic, less than 60 mmHg diastolic or pulse less than 55 BPM. * Baclofen 10 mg PO every 6 hours, as needed, for muscle cramps. * Dicyclomine 20 mg PO every 6 hours, as needed, for GI cramps. * Hydroxyzine 100 mg PO every 6 hours, as needed, for anxiety and itching. # Diet regular diet # Moderate-Severe pain pathway # DVT prophylaxis heparin subcutaneous # Full code Problem List: 1. Pleural effusion 2. Bacteremia 3. Right hip pain 4. Pubic ramus fracture Pain Ratin Pain Location: Right-sided flank/chest/hip Pain Goal: Pain 4 or less Pain Plan: Dilaudid 2mg IV Q4P Roxicodone to 15mg PO Q8 PRN Tomorrow's Labs & Rationales: CBC to monitor for infection Consulting Request: Consulting Specialty: Pain Food Or Baggage Handling [place]ampman Physician: Gerald Dunbar MD Reason for Consult: bacteremia LONDON PARADA 05/30/16 1702: Attending MD Review Statement Attending Statement Attending MD Statement: examined this patient, discuss w/resident/PA/BRAID CUTTER, agreed w/resident/PA/BRAID CUTTER, reviewed EMR data (avail), discussed with nursing, discussed with case mgmt Attending Assessment/Plan: Patient seen and examined at bedside. Still having a lot of output through her chest tubes. We'll continue to monitor the output. Discussed with data services developer and patient the care plan. Appreciate pain management input. Once patient's output from chest tube decreases we will be able to take out the chest tube. Patient's blood sugars are better compared with yesterday. We will continue to monitor them closely and increase her Levemir as needed. Discussed with patient the care plan
[2016-05-30 06:51] VITALS: BP 120/74
[2016-05-30 08:10] LABS: ABSOLUTE BASOPHIL COUNT 0 /CUMM (0.0-0.2); ABSOLUTE EOSINOPHIL COUNT 0.9 /CUMM (0.0-0.7); ABSOLUTE GRANULOCYTE CT 1.9 /CUMM (1.4-6.5); ABSOLUTE LYMPH COUNT 1.3 /CUMM (1.2-3.4); ABSOLUTE MONOCYTE COUNT 0.5 /CUMM (0.10-0.60); BASOPHIL % 0.7 % (0.0-2.0); GRANULOCYTE % 42.7 % (42.2-75.2); HEMATOCRIT 28.9 % (37-47); MEAN CORPUSCULAR HGB 26.2 PG (27.0-31.0); MEAN CORPUSCULAR HGB CONC 32.5 G/DL (33.0-37.0); MEAN CORPUSCULAR VOLUME 80.5 FL (81.0-99.0); MEAN PLATELET VOLUME 8.4 FL (7.4-10.4); PLATELET COUNT 210 /CUMM (130-400); RBC DISTRIBUTION WIDTH 22.6 % (11.5-14.5); RED BLOOD CELL CT 3.59 /CUMM (4.20-5.40); WHITE BLOOD CELL COUNT 4.6 /CUMM (4.8-10.8)
--- NOTE | 2016-05-30 08:52 | RADIOLOGY REPORT ---
EXAMINATION: XR PORTABLE CHEST CLINICAL INFORMATION: Status post pigtail drainage of pleural effusion. COMPARISON: CXR from 05/28/2016 TECHNIQUE: Portable view of the chest was obtained. FINDINGS: The tip of the left internal jugular central catheter terminates in the proximal superior vena cava. The lungs are hypoexpanded. A moderate right pleural effusion appears loculated. The effusion has slightly decreased in size compared to 05/28/2016. A small amount of fluid appears loculated within the minor fissure, as well. The pigtail pleural drainage catheter remains in stable position at the base of the hemithorax. No pneumothorax. Minimal atelectasis is present within the left lung base. There is persistent opacity of the right middle/lower lobes. No acute skeletal findings. IMPRESSION: The pigtail drainage catheter remains in stable position at the base of the right hemithorax. The loculated right pleural effusion has decreased in size compared to 05/28/2016.
[2016-05-30 09:03] LABS: EOSINOPHIL % 18.8 % (0-5)
[2016-05-30] MEDS ORDERED: QUETIAPINE FUM100 M1 PO (10:06)
--- NOTE | 2016-05-30 11:40 | PN- Pulmonary ---
Subjective HPI/Critical Care Issues: Patient seen and examined. No chest pain, at respiratory baseline. No nausea, vomiting, diarrhea or constipation. Afebrile and hemodynamically stable. Some discomfort at the chest tube site night. Objective Current Medications: Current Medications Sig/Shahla Start time Last Medication Dose Route Stop Time Status Admin Albuterol Sulfate 2 PUF Q4-6 PRN PRN 05/06 0100 AC INH Baclofen 10 MG Q6P PRN 05/08 2030 AC 05/29 PO 2114 Clonidine 0.1 MG Q8 05/08 2200 AC 05/30 PO 0552 Cyclobenzaprine HCl 10 MG AT BEDTIME 05/23 220 AC 05/29 PO 2124 Dicyclomine HCl 20 MG 4 TIMES/DAY PRN 05/08 2030 AC PO Diphenhydramine HCl 25 MG Q6P PRN 05/19 1200 AC 05/30 PO 0552 Ferrous Sulfate 325 MG TID 05/21 1600 AC 05/30 PO 1131 Hydromorphone HCl 2 MG Q4P PRN 05/28 0930 AC 05/30 IV 0851 Hydroxyzine HCl 100 MG Q6-PRN PRN 05/13 1545 AC 05/20 PO 2247 Insulin Aspart 0 TIDAC 05/27 1700 AC 05/30 SC 0849 Insulin Detemir 30 UNITS BID 05/30 1000 AC 05/30 SC 1129 Insulin Detemir 25 UNITS BID 05/29 1000 DC 05/29 SC 2216 Lorazepam 0.5 MG ONCE ONE 05/29 1700 DC 05/29 IV 05/29 1701 1718 Magnesium Chloride 64 MG DAILY 05/21 1246 AC 05/30 PO 1130 Oxacillin Sodium 2,000 MG Q4H 05/23 1030 AC 05/30 Sodium Chloride 100 ML IV 06/13 2355 1128 Oxycodone HCl 15 MG Q4 HRS NEEDED PRN 05/28 0900 AC 05/30 PO 1130 Oxycodone HCl 15 MG Q8P PRN 05/23 1730 DC 05/26 PO 1733 Pregabalin 150 MG BID 05/27 1000 AC 05/30 PO 1130 Quetiapine Fumarate 100 MG AT BEDTIME 05/28 2200 AC 05/29 PO 2124 Quetiapine Fumarate 25 MG Q8P PRN 05/28 1515 AC 05/29 PO 1135 Vital Signs & I&O Last 24 Hrs of Vitals and I&O: Vital Signs Date Time Temp Pulse Resp B/P Pulse O2 O2 Flow FiO2 Ox Delivery Rate 05/30 1135 Room Air 2.0L 05/30 0651 97.9 97 20 120/74 96 Nasal 3.0L Cannula 05/30 0552 97 120/74 05/30 0000 96 Nasal 3.0L Cannula 05/29 2253 97.9 102 20 120/70 96 Nasal 3.0L Cannula 05/29 1403 97.9 103 20 110/88 95 Intake & Output 05/30 1600 05/30 0800 05/30 0000 Intake Total 780 440 Output Total 175 Balance 605 440 Intake, IV 300 200 Intake, Oral 480 240 Output, Chest 175 Tube Drainage Exam Other Physical Findings: General - Alert, awake and oriented HEENT - normocephalic, atraumatic Cardiovascular - S1, S2 Lungs - bilateral wheezing Abdomen - soft, bowel sounds positive, no tenderness Extremities - some edema Neuro patient is paraplegic Skin wound was not evaluated during this examination Results Last 24 Hrs of Lab Results: Laboratory Tests 05/30/16 0545: CBC w Diff NO MAN DIFF REQ, RBC 3.59 L, MCV 80.5 L, MCH 26.2 L, RDW 22.6 H, MPV 8.4, Gran % 42.7, Lymphocytes % 27.9, Monocytes % 9.9 H, Eosinophils % 18.8 H, Basophils % 0.7, Absolute Granulocytes 1.9, Absolute Lymphocytes 1.3, Absolute Monocytes 0.5, Absolute Eosinophils 0.9, Absolute Basophils 0, PUBS MCHC 32.5 L Impression/Plan Impression/Plan Impression/Plan: Impression Pleural effusion on right, loculated, RLL atelectasis, RML and RUL partial atelectasis. Patchy airspace opacities. MSSA bacteremia, C.diff. Hemorrhagic exudative pleural fluid Plan -Continue drainage of the 12 Japanese indwelling pleural catheter until reduced to about <100/24hrs -Once fluid slows down to the above-mentioned number would repeat CAT scan of the chest to reevaluate lung parenchyma and pleural disease -Hemorrhagic exudative fluid cytologies pending, follow-up all labs and microbiology -f/u Dr. Dunbar's recommendations -DVT prophylaxis at all times
--- NOTE | 2016-05-30 11:46 | NUR ---
PHYSICAL THERAPY: Attempted to see patient; patient politely refusing at this time stating that she is awaiting to speak with MD regarding her current pain levels. Patient states that she does want to ambulate however and is motivated to work w/ PT towards home goals. P.T. to f/u as appropriate this afternoon.
--- NOTE | 2016-05-30 12:59 | PN- Pain Management ---
Subjective Subjective: Patient states severe pain from chest tube and pneumothorax Objective Last 24 Hrs of Vital Signs/I&O Vital Signs Date Time Temp Pulse Resp B/P Pulse O2 O2 Flow FiO2 Ox Delivery Rate 05/30 1135 Room Air 2.0L 05/30 0651 97.9 97 20 120/74 96 Nasal 3.0L Cannula 05/30 0552 97 120/74 05/30 0000 96 Nasal 3.0L Cannula 05/29 2253 97.9 102 20 120/70 96 Nasal 3.0L Cannula 05/29 1403 97.9 103 20 110/88 95 Intake & Output 05/30 1600 05/30 0800 05/30 0000 Intake Total 780 440 Output Total 175 Balance 605 440 Intake, IV 300 200 Intake, Oral 480 240 Output, Chest 175 Tube Drainage Assessment/Plan Assessment/Recommendations: The following is my reccommendations for this patient: -We will decrease IV dilaudid over the next three days and we will transition patient to oral methadone over time according to the following schedule: Dilaudid- Decrease to 2mg IV Q6 hours today; Beginning Thursday, decrease to 1mg IV Q6 hours; Beginning Thursday, decrease to 0.5mg IV Q8 hours; D/C all IV dilaudid by Thursday morning Methadone- Today begin Methadone 5mg bid po for 10 days. You must start this slow to prime the receptors and allow for metabolization because if not you risk a a build up of methadone in the system causing toxic adverse reactions; After 10 days, may increase methadone 5mg every week untill provider feels patient is appropriately titrated - D/C oxycodone 15mg - Begin oxycodone 10mg Q8 hours prn for break through pain only - Consult social science analyst to find patient more consistent pain management
--- NOTE | 2016-05-30 14:58 | PN- Infect Dx ---
Subjective Subjective: Afebrile. She complains of pain at the chest tube site. Her right hip pain has improved. Objective Last 24 Hrs of Vital Signs/I&O Vital Signs Date Time Temp Pulse Resp B/P Pulse O2 O2 Flow FiO2 Ox Delivery Rate 05/30 1135 Room Air 2.0L 05/30 0651 97.9 97 20 120/74 96 Nasal 3.0L Cannula 05/30 0552 97 120/74 05/30 0000 96 Nasal 3.0L Cannula 05/29 2253 97.9 102 20 120/70 96 Nasal 3.0L Cannula Intake & Output 05/30 1600 05/30 0800 05/30 0000 Intake Total 780 440 Output Total 175 Balance 605 440 Intake, IV 300 200 Intake, Oral 480 240 Output, Chest 175 Tube Drainage Physical Exam Other Physical Findings: She appears more comfortable, sitting up in a chair Chest Pro-Line in the left upper chest with no inflammation at the site Lungs decreased breath sounds on the right; pigtail catheter in place with 125 mL output yesterday and 175 mL output overnight of bloody fluid Heart regular rhythm with no murmur Extremities no cyanosis, clubbing or edema Results Last 24 Hours of Lab Results: Laboratory Tests 05/30 0545 Hematology CBC w Diff NO MAN DIFF REQ WBC (4.8 - 10.8 /CUMM) 4.6 L RBC (4.20 - 5.40 /CUMM) 3.59 L Hgb (12.0 - 16.0 G/DL) 9.4 L Hct (37 - 47 %) 28.9 L MCV (81.0 - 99.0 FL) 80.5 L MCH (27.0 - 31.0 PG) 26.2 L RDW (11.5 - 14.5 %) 22.6 H Plt Count (130 - 400 /CUMM) 210 MPV (7.4 - 10.4 FL) 8.4 Gran % (42.2 - 75.2 %) 42.7 Lymphocytes % (20.5 - 51.1 %) 27.9 Monocytes % (1.7 - 9.3 %) 9.9 H Eosinophils % (0 - 5 %) 18.8 H Basophils % (0.0 - 2.0 %) 0.7 Absolute Granulocytes (1.4 - 6.5 /CUMM) 1.9 Absolute Lymphocytes (1.2 - 3.4 /CUMM) 1.3 Absolute Monocytes (0.10 - 0.60 /CUMM) 0.5 Absolute Eosinophils (0.0 - 0.7 /CUMM) 0.9 Absolute Basophils (0.0 - 0.2 /CUMM) 0 PUBS MCHC (33.0 - 37.0 G/DL) 32.5 L Pleural fluid cytology May 28 negative Last 24 Hours of Haris Results: Right pleural fluid culture May 27 negative Blood cultures 3 May 26 negative Recent Imaging Studies: Chest x-ray May 30 decreased size of right loculated pleural effusion Assessment/Plan Impression: Stable status post drainage of 2 L of serosanguineous pleural fluid from the right chest 2 days ago, with characteristics of an exudate, but with etiology unclear, with cytology and culture negative, and it may be related to her previous trauma, though this was nearly 2 months ago. The nodular opacities seen on the CT scan raise concern for septic pulmonary emboli, though her MONICA, done earlier on this admission, was negative. She remains afebrile with white blood cell count normal on Oxacillin now Day 46 of treatment for recurrent MSSA sepsis , felt most likely secondary to the Pro-Line catheter, which was removed 17 days ago, with her last positive blood cultures for Staph aureus 21 days ago and with blood cultures obtained 20 days ago negative for Staph aureus. The significance of the pyuria is unclear, with the urine culture negative, though the recent CT scan did reveal air locules within the bladder and vagina, raising concern for a possible fistula in the absence of any recent instrumentation/catheterization. Suggestion: 1. Would repeat the CT of the abdomen and pelvis with oral, IV and rectal contrast 2. Continue Oxacillin
[2016-05-30 15:59] VITALS: BP 132/86
--- NOTE | 2016-05-30 19:07 | Event Note ---
Event Note Event Note: The patient is supposed to get a CT scan of abdomen and pelvis to check on the GI tract problems she is having right now. She received the oral contrast and a plan was made with the radiologist earlier during the day to conduct a rectal contrast procedure as well at the same time. However, I have been informed by the radiology department that a radiologist is currently not available to carry out the procedure and the person can only get up oral and IV contrast CAT scan right now. However, this creates a problem, because the patient cannot get another IV contrast within next 48 hours for the risk of acute renal injury. I have discussed this with the nursing staff and my resident, to plan further management. 1906hrs. After discussing with my resident Dr Joe Cazares, patient sent to CT scan for the available tests, i.e. CT scan with oral and IV contrast. Nursing staff notified. Signed out to the night staff accordingly.
--- NOTE | 2016-05-30 20:45 | NUR ---
17:00- CT OF ABD/PELVIS ORDERED WITH IV, RECTAL AND ORAL CONTRAST. PT DRINKING CONTRAST NOW. DR. ROSARIO TO PUT IN ORDERS FOR ATIVAN AND DILAUDID PRIOR TO LEAVING FLOOR FOR RADILOGY 19:00- PT READY TO HAVE CT STUDY. RADILOGY CALLED TO INFORM RECTAL CONTRAST CANNOT BE GIVEN DUE TO NO RADIOLOGIST IN HOUSE AT THIS TIME. DR. SUAREZ, RN ANIMAL SCIENCE PROFESSOR AND RN RELIEF CHARGE NOTIFIED 19:30- PT TO HAVE SCANS REQUIRING IV AND ORAL CONTRAST NOW. WILL HAVE SCAN REQUIRING RECTAL CONTRAST TOMORROW. PT LEFT FLOOR VIA STRETCHER. PT CANNOT HAVE IV CONTRAST TOMORROW 05/30, DUE TO HAVING IV CONTRAST TODAY.
[2016-05-30 23:05] VITALS: BP 98/60
--- NOTE | 2016-05-30 23:27 | CT SCAN REPORT ---
EXAMINATION: CT ABDOMEN AND PELVIS WITH CONTRAST CLINICAL INFORMATION: Pain. Suspect infection. COMPARISON: CT from 05/26/2016 TECHNIQUE: Multidetector volumetric imaging was performed of the abdomen and pelvis before and after the IV administration of 91 mL of Optiray 320 intravenous contrast. Sagittal and coronal reformatted images were obtained on the technologist's workstation. DLP: 1595 mGy-cm. FINDINGS: LUNG BASES: There is a pigtail catheter in place within the right-sided pleural effusion. There is gas within the effusion. The size of the pleural effusion appears to have decreased since the prior study. There is consolidation along the right major fissure and at the periphery of the right lung. Minimal left basilar atelectasis. LIVER, GALLBLADDER, AND BILIARY TREE: The liver is normal in size, shape, and attenuation. No focal hepatic lesion or biliary ductal dilatation is present. The gallbladder is unremarkable with no evidence of radiopaque gallstones, gallbladder wall thickening, or obvious pericholecystic inflammatory changes. PANCREAS: Atrophic. Minimal pancreatic parenchyma is visualized. No focal abnormality. SPLEEN: The spleen remains mildly prominent. No focal abnormality. ADRENAL GLANDS: Unremarkable. KIDNEYS AND URETERS: The kidneys are normal in size and attenuation with a somewhat lobulated contour. No hydronephrosis, hydroureter, or calculi seen. No perinephric stranding. BLADDER: The bladder is mostly decompressed. Gas is seen within the bladder lumen. GASTROINTESTINAL TRACT: The stomach is unremarkable. The small bowel is nonobstructed. Fecalization of the distal ileum suggests slow transit. There is no colonic wall thickening or inflammatory change. No free air or free fluid. ABDOMINAL WALL: Mild anasarca. Prominent pannus. There is laxity of the abdominal wall with eventration. This is particularly evident in the left lower quadrant. LYMPH NODES: Normal. VASCULAR: Scattered upper carotid calcifications. PELVIC VISCERA: The uterus and adnexa are unremarkable. Calcification noted adjacent to the uterine body. This is unchanged. OSSEOUS STRUCTURES: Redemonstration of the fractures of the right superior and inferior pubic rami. Diffuse osteopenia. Degenerative changes at L4-L5. IMPRESSION: 1. Drainage catheter in place in the right pleural effusion. Multiple foci of gas are seen within the fluid. Areas of consolidation are seen in the right lung along the major fissure and at the periphery which could represent atelectasis or pneumonia. 2. Gas is seen within the bladder lumen, which is mostly decompressed. Correlate for recent catheterization. No definite fistula is visualized. 3. Additional stable findings as above.
[2016-05-31 07:21] VITALS: BP 124/80
--- NOTE | 2016-05-31 08:43 | PN- Housestaff ---
Subjective Follow-up For: Pleural effusion Bactermia Chronic pain syndrome Subjective: Patient seen and examined at bedside. Day 4 s/p pleural catheter placement. Drainage amounting to about 70cc of serosanguinous fluid over the past 24 hours. Patient endorses persistent pain in the right sided chest, flank and hip, under control with the current regimen. Denies any palpitations, shortness of breath, fever, chills, nausea, vomiting, abdominal pain, diarrhea. Review of Systems Constitutional: Reports: see HPI. Objective Last 24 Hrs of Vital Signs/I&O Vital Signs Date Time Temp Pulse Resp B/P Pulse O2 O2 Flow FiO2 Ox Delivery Rate 05/31 0721 97.8 100 20 124/80 96 Room Air 05/31 0654 102 132/82 05/31 0000 Nasal 3.0L Cannula 05/30 2305 97.8 109 20 98/60 96 Nasal Cannula 05/30 2151 102 122/82 05/30 1559 97.9 104 20 132/86 97 Nasal Cannula 05/30 1555 90 124/70 05/30 1135 Room Air 2.0L Intake & Output 05/31 1600 05/31 0800 05/31 0000 Intake Total 400 350 Output Total 470 575 Balance -70 -225 Intake, IV 300 150 Intake, Oral 100 200 Output, Chest 70 75 Tube Drainage Output, Urine 400 500 Physical Exam General Appearance: Alert, Oriented X3, Cooperative, No Acute Distress Other Physical Findings: Skin cellulitis on the right shoulder healing well with scar formation, no oozing or drainage. No signs of infection around the Pro-line insertion site without drainage/erythema/tenderness. 4 x 2 unstageable pressure ulcer in the coccyx - moist yellow slough with periwound edge light purple discolored hue and scant drainage - improving. HEENT: Mucous Membr. moist/pink Cardiovascular: Regular Rate, Normal S1, Normal S2, No Murmurs, Gallops, Rubs Pulmonary: CTA, no crackles/rales/rhonchi Abdomen: Normal Bowel Sounds, Soft, Severe tenderenss in right flank. MSK: Severe pain in the right hip with limited ROM. Extremities: No Clubbing, No Cyanosis, No Edema Current Medications: Current Medications Sig/Shahla Start time Last Medication Dose Route Stop Time Status Admin Albuterol Sulfate 2 PUF Q4-6 PRN PRN 05/06 0100 AC INH Baclofen 10 MG Q6P PRN 05/08 2030 AC 05/29 PO 2114 Clonidine 0.1 MG Q8 05/08 2200 AC 05/31 PO 0654 Cyclobenzaprine HCl 10 MG AT BEDTIME 05/23 220 AC 05/30 PO 2136 Dicyclomine HCl 20 MG 4 TIMES/DAY PRN 05/08 2030 AC PO Diphenhydramine HCl 25 MG Q6P PRN 05/19 1200 AC 05/30 PO 0552 Ferrous Sulfate 325 MG TID 05/21 1600 AC 05/30 PO 2136 Hydromorphone HCl 1 MG ONCE ONE 05/30 1900 DC 05/30 IV 05/30 Hydromorphone HCl 0.6 MG ONCE ONE 05/30 1245 CAN IV 05/30 124 Hydromorphone HCl 2 MG Q4P PRN 05/28 0930 AC 05/31 IV 0628 Hydroxyzine HCl 100 MG Q6-PRN PRN 05/13 1545 AC 05/20 PO 2247 Insulin Aspart 0 AT BEDTIME 05/31 2199 AC SC Insulin Aspart 0 TIDAC/HS 05/31 0800 CAN SC Insulin Aspart 0 TIDAC 05/31 0800 AC SC Insulin Aspart 4 UNITS ONCE ONE 05/31 0230 DC 05/31 SC 05/31 0231 0243 Insulin Aspart 4 UNITS ONCE ONE 05/30 2345 DC 05/31 SC 05/30 2346 0001 Insulin Aspart 8 UNITS ONCE ONE 05/30 2145 DC 05/30 SC 05/30 214 2137 Insulin Aspart 0 TIDAC 05/27 1700 DC 05/30 MN 1219 Insulin Detemir 30 UNITS BID 05/30 1000 05/30 SC 2139 Lorazepam 0.5 MG ONCE ONE 05/30 1900 DC 05/30 IV 05/30 190 2000 Magnesium Chloride 64 MG DAILY 05/21 1246 AC 05/30 PO 1130 Oxacillin Sodium 2,000 MG Q4H 05/23 1030 AC 05/31 Sodium Chloride 100 ML IV 06/13 2355 0628 Oxycodone HCl 15 MG Q4 HRS NEEDED PRN 05/28 0900 AC 05/31 PO 0830 Pregabalin 150 MG BID 05/27 1000 AC 05/30 PO 2136 Quetiapine Fumarate 100 MG AT BEDTIME 05/28 220 AC 05/30 PO 2136 Quetiapine Fumarate 25 MG Q8P PRN 05/28 1515 AC 05/30 PO 1307 Last 24 Hrs of Lab/Haris Results Last 24 Hrs of Labs/Mics: Laboratory Tests 05/31/16 0815: Sodium Pending, Potassium Pending, Chloride Pending, Carbon Dioxide Pending, Anion Gap Pending, BUN Pending, Creatinine Pending, BUN/Creatinine Ratio Pending , Magnesium Pending, CBC w Diff Pending, WBC Pending, RBC Pending, Hgb Pending, Hct Pending, MCV Pending, MCH Pending, RDW Pending, Plt Count Pending, MPV Pending, PUBS MCHC Pending Assessment/Plan Assessment: Ms. Urias is 40-year-old female with a past medical history of osteomyelitis of pubis, necrotizing fasciitis of the perineum, hysterectomy, colostomy reversed, left renal abscess, C. difficile colitis,anxiety, depression, chronic pain disorder,chronic back pain,chronic anemia, poorly controlled IDDM 2, DKA, recent fall with minimal displaced pelvic fracture, right shoulder cellulitis s/ p incision and drainage on oxacillin to finish a course of 4 weeks (untill May 12) discharged 04/18/16, presenting with a chief complaint of worsening right pelvic and hip pain. Now found to have pulmonary findings on CTA including a large pleural effusion, concerning for pneumonia, septic embolism and lung abscess. # Right sided pleural effusion - CTA (05/27) shows a new large right pleural effusion with collapse of the right lung and patchy airspace opacities concerning for pneumonia. There are also severeal areas of intraparenchymal hypoattenuation and small volume gas concerning for areas of pulmonary abscess formation. In the left lung there are 6 mm subpleural nodular opacity and several nodular opacities, concerning for septic emboli. Pyelonephritis cannot be excluded. - Pleural catheter placement (05/28) - Drained about 1L of blood-tinged fluid at the time of placement. * ID/Pulm/Thoracic surgery consulted, follow recs * Continue low wall suction per thoracic surg rec. * Follow pleural fluid analysis - hemorrhagic exudative fluid * Follow pleural cytology & culture - negative * Monitor off abx pending above per ID rec * Check CBC daily, trend WBC - WNL * Vitals per protocol, watch for fever # Pyuria possibly 2/2 fistula UA remakrable for a large amount of leuk esterase and WBC, and moderate epith cells. Ucx was negative. Patient currently has no urinary symptoms but CT abdomen/pelvis (05/27) showed air locules within the bladder and vagina. No h/o recent instrumentation and no evidence of signs/sxs of fistula on physical exam. - CT abd/pelvis with contrast (05/30): Drainage catheter in place in the right pleural effusion. Multiple foci of gas are seen within the fluid. Areas of consolidation are seen in the right lung along the major fissure and at the periphery which could represent atelectasis or pneumonia. Gas is seen within the bladder lumen, which is mostly decompressed. Correlate for recent catheterization. No definite fistula is visualized. * Rule out fistula on CT abdomen/pevlis with rectal IV (this couldn't be done yesterday because radiologist was not available) # S. aureus bacteremia Patient found to be septic on admission with fever, tachycardia and first set of blood cultures growing staph aureus. Patient was placed on vancomycin in addition to oxacillin on which patient had already been for cellulitis prior the this admission. Patient went into a septic shock on 05/06 which resolved with aggressive IVF resucsitation. Initial blood cultures and a series of repeat bcx' s grew MSSA. TTE and MONICA negative for endocarditis. Blood culture from the Pro line grew GPC before the peripheral line. This raised the suspicion that the source of infection could be from the Pro-line. Blood cultures from 05/12 growing GNR. Pro-line removed on 05/13. Tip of the catheter growing GNR, GPC, and staph coag negative. Repeat blood cultures from 05/13 and 05/15 NGTD - MRI pelvis (05/07): - Bone marrow edema within the pubic rami extending to the right acetabulum compatible with posttraumatic inflammatory change. Soft tissue edema surrounds the rami fractures without evidence of a focal, organized fluid collection in this region. Small right hip joint effusion nonspecific but possibly indicative of early infectious arthritis. New Pro-line placement on 05/20. - WBC scan (05/09): Grossly unremarkable except for moderately intense diffuse lung activity (nonspecific), possibly due to a diffuse inflammatoryprocess in the lungs * ID consulted, follow recs * Continue IV oxacillin, to be discontinued on 06/10/16 * Follow wound care recs # Chronic pain syndrome Patient carries a hx of chronic pain disorder. Patient does have a fracture in the right hip from a fall a month ago. Ortho saw the patient and recommended conservative management without any further interventions at that time. Ortho was contacted again on 05/13 and no interventions were recommended. * Cont IV Dilaudid 2mg IV Q4P * Cont Roxicodone to 15mg PO Q8P * Minimize IV narcotics * Pain management was consulted about methadone taper, follow recs # Anemia most likely 2/2 iron deficiency - Resolved Patient's hemoglobin dropped to 7.1 on 05/22. Hgb dropped to 6.9 despite receiving 1 unit of pRBC. She received 2 additional units with an appropriate response. [place] stool test negative. Iron studies significant for low Fe and slightly elevated TIBC. Patient was transfused a total of 3 units on 05/22. Most likely anemia of chronic disease vs. ACBL vs. Fe deficiency. * Cont iron supplementation * Transfuse if Hgb < 7 # Hyponatremia - Resolved Patient presented with a sodium level of 114 (corrected Na 122), consistent with acute on chronic hyponatremia. This is most attributable to pseudohyponatremia in the setting of hyperglycemia, possibly with a component of SIADH/sepsis/poor intake. Patient is currently has no significant neurological symptoms. Serum & urine osmolality WNL. # Poor controlled diabetes * Novolog SSI with accuchecks * Increase Levemir to 39U SQ BID # Mood disorders * Psych consulted, appreciate recs * Clonidine 0.1 mg PO Q8P, if opiate withdrawal symptoms. Hold Clonidine for blood pressure less than 90 mmHg systolic, less than 60 mmHg diastolic or pulse less than 55 BPM. * Baclofen 10 mg PO every 6 hours, as needed, for muscle cramps. * Dicyclomine 20 mg PO every 6 hours, as needed, for GI cramps. * Hydroxyzine 100 mg PO every 6 hours, as needed, for anxiety and itching. # Diet regular diet # Moderate-Severe pain pathway # DVT prophylaxis heparin subcutaneous # Full code Problem List: 1. Pleural effusion 2. Bacteremia 3. Right hip pain 4. Chronic pruritus 5. Pubic ramus fracture 6. Cellulitis Pain Ratin Pain Location: Right sided chest/abdomen/hip Pain Goal: Pain 4 or less Pain Plan: Dilaudid 2mg IV Q4P Roxicodone to 15mg PO Q8 PRN Tomorrow's Labs & Rationales: CBC to monitor for infection Consulting Request: Consulting Specialty: Pain Supervisor Assembly And Packing Physician: Gerald Dunbar MD Reason for Consult: bacteremia
[2016-05-31 08:58] LABS: ABSOLUTE BASOPHIL COUNT 0 /CUMM (0.0-0.2); ABSOLUTE EOSINOPHIL COUNT 0.8 /CUMM (0.0-0.7); ABSOLUTE GRANULOCYTE CT 2.3 /CUMM (1.4-6.5); ABSOLUTE LYMPH COUNT 1.1 /CUMM (1.2-3.4); ABSOLUTE MONOCYTE COUNT 0.4 /CUMM (0.10-0.60); BASOPHIL % 0.7 % (0.0-2.0); EOSINOPHIL % 18.1 % (0-5); GRANULOCYTE % 49.1 % (42.2-75.2); HEMATOCRIT 27.2 % (37-47); MEAN CORPUSCULAR HGB 26.3 PG (27.0-31.0); MEAN CORPUSCULAR HGB CONC 32.8 G/DL (33.0-37.0); MEAN CORPUSCULAR VOLUME 80.3 FL (81.0-99.0); PLATELET COUNT 219 /CUMM (130-400); RBC DISTRIBUTION WIDTH 23.1 % (11.5-14.5); RED BLOOD CELL CT 3.39 /CUMM (4.20-5.40); WHITE BLOOD CELL COUNT 4.6 /CUMM (4.8-10.8)
--- NOTE | 2016-05-31 13:37 | PN- Pulmonary ---
Subjective HPI/Critical Care Issues: Patient seen and examined at bedside. Day 3 s/p pleural catheter placement. Drainage amounting to about 500cc of pink fluid over the past 24 hours. Patient endorses persistent pain in the right sided chest, flank and hip, under control with the current regimen. Denies any palpitations, shortness of breath, fever, chills, nausea, vomiting, abdominal pain, diarrhea. Review of Systems Constitutional: Reports: see HPI. Objective Current Medications: Current Medications Sig/Shahla Start time Last Medication Dose Route Stop Time Status Admin Albuterol Sulfate 2 PUF Q4-6 PRN PRN 05/06 0100 AC INH Baclofen 10 MG Q6P PRN 05/08 2030 AC 05/29 PO 2114 Clonidine 0.1 MG Q8 05/080 AC 05/31 PO 0654 Cyclobenzaprine HCl 10 MG AT BEDTIME 05/23 2200 AC 05/30 PO 2136 Dicyclomine HCl 20 MG 4 TIMES/DAY PRN 05/08 2030 AC PO Diphenhydramine HCl 25 MG Q6P PRN 05/19 1200 AC 05/31 PO 1132 Ferrous Sulfate 325 MG TID 05/21 1600 AC 05/31 PO 1012 Heparin Sodium 5,000 UNIT Q8 05/31 1400 AC (Porcine) SC Hydromorphone HCl 1 MG ONCE ONE 05/30 1900 DC 05/30 IV 05/30 190 2000 Hydromorphone HCl 2 MG Q4P PRN 05/28 0930 AC 05/31 IV 1017 Hydroxyzine HCl 100 MG Q6-PRN PRN 05/13 1545 AC 05/20 PO 2247 Insulin Aspart 0 AT BEDTIME 05/31 2200 AC SC Insulin Aspart 0 TIDAC/HS 05/31 0800 CAN SC Insulin Aspart 0 TIDAC 05/31 0800 AC 05/31 SC 1306 Insulin Aspart 4 UNITS ONCE ONE 05/31 0230 DC 05/31 SC 05/31 0231 0243 Insulin Aspart 4 UNITS ONCE ONE 05/30 2345 DC 05/31 SC 05/30 2346 0001 Insulin Aspart 8 UNITS ONCE ONE 05/30 2145 DC 05/30 SC 05/30 2146 2137 Insulin Aspart 0 TIDAC 05/27 1700 DC 05/30 SC 1219 Insulin Detemir 39 UNITS BID 05/31 2200 AC SC Insulin Detemir 30 UNITS BID 05/30 1000 DC 05/31 [place] 1013 Lorazepam 0.5 MG ONCE ONE 05/30 1900 DC 05/30 IV 05/30 1901999 Magnesium Chloride 64 MG DAILY 05/21 1246 AC 05/31 PO 1013 Oxacillin Sodium 2,000 MG Q4H 05/23 1030 AC 05/31 Sodium Chloride 100 ML IV 06/13 2355 1014 Oxycodone HCl 15 MG Q4 HRS NEEDED PRN 05/28 0900 AC 05/31 PO 1247 Pregabalin 150 MG BID 05/27 1000 AC 05/31 PO 1012 Quetiapine Fumarate 100 MG AT BEDTIME 05/28 2200 AC 05/30 PO 2136 Quetiapine Fumarate 25 MG Q8P PRN 05/28 1515 AC 05/30 PO 1307 Vital Signs & I&O Last 24 Hrs of Vitals and I&O: Vital Signs Date Time Temp Pulse Resp B/P Pulse O2 O2 Flow FiO2 Ox Delivery Rate 05/31 0721 97.8 100 20 124/80 96 Room Air 05/31 0654 102 132/82 05/31 0000 Nasal 3.0L Cannula 05/30 2305 97.8 109 20 98/60 96 Nasal Cannula 05/30 2151 102 122/82 05/30 1559 97.9 104 20 132/86 97 Nasal Cannula 05/30 1555 90 124/70 Intake & Output 05/31 1600 05/31 0800 05/31 0000 Intake Total 400 350 Output Total 470 575 Balance -70 -225 Intake, IV 300 150 Intake, Oral 100 200 Output, Chest 70 75 Tube Drainage Output, Urine 400 500 Laboratory Tests 05/31 05/30 0815 0545 Chemistry Sodium (137 - 145 mmol/L) 135 L Potassium (3.5 - 5.1 mmol/L) 4.4 Chloride (98 - 107 mmol/L) 95 L Carbon Dioxide (22 - 30 mmol/L) 31 H Anion Gap (5 - 16) 9 BUN (7 - 17 mg/dL) 15 Creatinine (0.5 - 1.0 mg/dL) 0.7 Estimated GFR (>60 ml/min) > 60 BUN/Creatinine Ratio (7 - 25 %) 21.4 Magnesium (1.6 - 2.3 mg/dL) 1.5 L Hematology CBC w Diff MAN DIFF ORDERED NO MAN DIFF REQ WBC (4.8 - 10.8 /CUMM) 4.6 L 4.6 L RBC (4.20 - 5.40 /CUMM) 3.39 L 3.59 L Hgb (12.0 - 16.0 G/DL) 8.9 L 9.4 L Hct (37 - 47 %) 27.2 L 28.9 L MCV (81.0 - 99.0 FL) 80.3 L 80.5 L MCH (27.0 - 31.0 PG) 26.3 L 26.2 L RDW (11.5 - 14.5 %) 23.1 H 22.6 H Plt Count (130 - 400 /CUMM) 219 210 MPV (7.4 - 10.4 FL) 8.0 8.4 Gran % (42.2 - 75.2 %) 49.1 42.7 Lymphocytes % (20.5 - 51.1 %) 23.6 27.9 Monocytes % (1.7 - 9.3 %) 8.5 9.9 H Eosinophils % (0 - 5 %) 18.1 H 18.8 H Basophils % (0.0 - 2.0 %) 0.7 0.7 Absolute Granulocytes (1.4 - 6.5 /CUMM) 2.3 1.9 Absolute Lymphocytes (1.2 - 3.4 /CUMM) 1.1 L 1.3 Absolute Monocytes (0.10 - 0.60 /CUMM) 0.4 0.5 Absolute Eosinophils (0.0 - 0.7 /CUMM) 0.8 0.9 Absolute Basophils (0.0 - 0.2 /CUMM) 0 0 Platelet Estimate (ADEQUATE) VERIFIED BY SMEAR Polychromasia 1+ Hypochromic-Microcytic 1+ Anisocytosis 1+ PUBS MCHC (33.0 - 37.0 G/DL) 32.8 L 32.5 L Impression/Plan Impression/Plan Impression/Plan: Physical Exam General Appearance: Alert, Oriented X3, Cooperative, No Acute Distress Other Physical Findings: Skin cellulitis on the right shoulder healing well with scar formation, no oozing or drainage. No signs of infection around the Pro-line insertion site without drainage/erythema/tenderness. 4 x 2 unstageable pressure ulcer in the coccyx - moist yellow slough with periwound edge light purple discolored hue and scant drainage - improving. HEENT: Mucous Membr. moist/pink Cardiovascular: Regular Rate, Normal S1, Normal S2, No Murmurs, Gallops, Rubs Pulmonary: CTA, no crackles/rales/rhonchi Abdomen: Normal Bowel Sounds, Soft, Severe tenderenss in right flank. MSK: Severe pain in the right hip with limited ROM. Extremities: No Clubbing, No Cyanosis, No Edema Pleural effusion on right, loculated, RLL atelectasis, RML and RUL partial atelectasis. Patchy airspace opacities. MSSA bacteremia, C.diff. Hemorrhagic exudative pleural fluid REC Cont drainage Still has sig amount Adequate po fluid Follow ID rec CT abd noted Will follow Pt may need decortication if no sig improvement
[2016-05-31 14:56] VITALS: BP 118/56
--- NOTE | 2016-05-31 15:47 | PN- Att Addend ---
Attending MD Review Statement Attending Statement Attending MD Statement: examined this patient, discuss w/resident/PA/METAL MACHINE OPERATOR, agreed w/resident/PA/METAL MACHINE OPERATOR, reviewed EMR data (avail), discussed w/nursing, discussed w/ case mgmt Attending Assessment/Plan: Patient seen and examined at bedside and they agree with the resident's care plan. Hemothorax status post chest tube placement. Patient still currently having the significant drainage from the chest tube which though has decreased. We'll follow up with pulmonary recommendations regarding discontinuation of chest tube once the drainage decreases below a certain level. We will continue with oxacillin until June 10 for possible endocarditis. Infectious disease is following we'll follow up with the recommendations. We'll try to get CT abdomen and pelvis with rectal contrast to rule out fistula done today. Next Discussed with patient the care plan and patient is agreeable to the above plan.
--- NOTE | 2016-05-31 16:29 | CT SCAN REPORT ---
EXAMINATION: CT ABDOMEN AND PELVIS WITHOUT CONTRAST CLINICAL INFORMATION: Assess for fistula. COMPARISON: CT abdomen and pelvis 05/30/2016. TECHNIQUE: Multidetector volumetric imaging was performed from the superior aspect of the liver through the pubic symphysis. Rectal contrast was administered. Sagittal and coronal reformatted images were obtained on the technologist's workstation. DLP: 1599 mGy-cm. FINDINGS: LUNG BASES: Right basilar chest tube with small pleural effusion and foci of gas are redemonstrated. There is adjacent right basilar consolidation. LIVER, GALLBLADDER, AND BILIARY TREE: The liver is normal in size, shape, and attenuation. No focal hepatic lesion or biliary ductal dilatation is present. The gallbladder is unremarkable with no evidence of radiopaque gallstones, gallbladder wall thickening, or obvious pericholecystic inflammatory changes. PANCREAS: Unremarkable. SPLEEN: Mild splenomegaly. ADRENAL GLANDS: Unremarkable. KIDNEYS AND URETERS: The kidneys are normal in size, shape, and attenuation. No hydronephrosis, hydroureter, or calculi seen. No perinephric stranding. BLADDER: High density material within the bladder lumen. GASTROINTESTINAL TRACT: Bowel gas pattern is nonobstructive. Rectal tube is in place. Contrast extends through the colon and into the terminal ileum. Surgical anastomotic material along the transverse colon redemonstrated. No evidence of extravasation of contrast or discrete fistula. No acute bowel pathology is demonstrated. ABDOMINAL WALL: No significant hernia is appreciated. LYMPH NODES: No pathologically enlarged lymph nodes are demonstrated. VASCULAR: Minimal scattered atherosclerotic calcification. PELVIC VISCERA: No suspicious uterine or adnexal lesion. OSSEOUS STRUCTURES: No acute osseous abnormalities. Degenerative endplate changes at L4-L5. Suggestion of increased cortical irregularity of the endplates at L4-L5 compared to prior CT scan from 05/06/2016. This is superimposed on significant degenerative endplate sclerosis/degenerative endplate change. IMPRESSION: 1. No evidence of acute bowel pathology. No fistula is demonstrated. 2. Right-sided chest tube in place. Small right pleural effusion with foci of gas. Persistent right basilar consolidation. 3. Suggestion of increased cortical irregularity at the L4-L5 endplates compared to CT 05/06/2016. This is superimposed on significant local degenerative endplate change. Although nonspecific, local osteomyelitis/discitis is not excluded. 4. Additional findings as above.
--- NOTE | 2016-05-31 17:13 | NUR ---
Session canceled today as pt is [facility] for testing.
[2016-05-31 22:07] VITALS: BP 140/80
[2016-06-01 06:00] VITALS: BP 116/70
--- NOTE | 2016-06-01 06:02 | PN- Housestaff ---
MARLENE FARFAN,MICHEL 06/01/16 0601: Subjective Follow-up For: Pleural effusion Bactermia Chronic pain syndrome Subjective: Patient seen and examined at bedside. Day 5 s/p pleural catheter placement. Drainage amounting to about 190 mL of serosanguinous fluid over the past 24 hours. Patient endorses persistent pain in the right sided chest, flank and hip, under control with the current regimen, currently at 4 out of 10. However she c/ o worsening pain in the left shoulder and says that "it feels like the bones are dislocated." Denies any palpitations, shortness of breath, fever, chills, nausea , vomiting, abdominal pain, diarrhea. Review of Systems Constitutional: Reports: see HPI. Objective Last 24 Hrs of Vital Signs/I&O Vital Signs Date Time Temp Pulse Resp B/P Pulse O2 O2 Flow FiO2 Ox Delivery Rate 06/01 0600 108 18 116/70 99 Nasal 3.0L Cannula 06/01 0552 108 18 116/70 06/01 0000 Nasal 3.0L Cannula 05/31 2207 98.2 113 20 140/80 96 Nasal 3.0L Cannula 05/31 2131 113 140/84 05/31 1600 Nasal 3.0L Cannula 05/31 1456 98.6 113 20 118/56 98 05/31 1416 80 124/68 Intake & Output 06/01 1600 06/01 0800 06/01 0000 Intake Total 540 950 Output Total 950 1340 Balance -410 -390 Intake, IV 240 Intake, Oral 300 950 Number 1 2 Bowel Movements Output, Chest 50 40 Tube Drainage Output, Urine 900 1300 Physical Exam General Appearance: Alert, Oriented X3, Cooperative, No Acute Distress Other Physical Findings: Skin cellulitis on the right shoulder healing well with scar formation, no oozing or drainage. No signs of infection around the Pro-line insertion site without drainage/erythema/tenderness. 4 x 2 unstageable pressure ulcer in the coccyx - moist yellow slough with periwound edge light purple discolored hue and scant drainage - improving. HEENT: Mucous Membr. moist/pink Cardiovascular: Regular Rate, Normal S1, Normal S2, No Murmurs, Gallops, Rubs Pulmonary: CTA, no crackles/rales/rhonchi Abdomen: Normal Bowel Sounds, Soft, Severe tenderenss in right flank. MSK: Severe pain in the right hip with limited ROM. Extremities: No Clubbing, No Cyanosis, No Edema Current Medications: Current Medications Sig/Shahla Start time Last Medication Dose Route Stop Time Status Admin Albuterol Sulfate 2 PUF Q4-6 PRN PRN 05/06 0100 AC INH Baclofen 10 MG Q6P PRN 05/08 2030 AC 05/29 PO 2114 Clonidine 0.1 MG Q8 05/08 2200 AC 06/01 PO 0552 Cyclobenzaprine HCl 10 MG AT BEDTIME 05/23 2200 AC 05/31 PO 2130 Dicyclomine HCl 20 MG 4 TIMES/DAY PRN 05/08 2030 AC PO Diphenhydramine HCl 25 MG Q6P PRN 05/19 1200 AC 06/01 PO 0404 Ferrous Sulfate 325 MG TID 05/21 1600 AC 06/01 PO 0800 Heparin Sodium 5,000 UNIT Q8 05/31 1400 AC 06/01 (Porcine) MA 0549 Hydromorphone HCl 0.6 MG ONCE ONE 05/31 1500 DC 05/31 IV 05/31 1501 1456 Hydromorphone HCl 0.6 MG ONCE ONE 05/31 1445 DC IV 05/31 1446 Hydromorphone HCl 2 MG Q4P PRN 05/28 0930 AC 06/01 IV 0900 Hydroxyzine HCl 100 MG Q6-PRN PRN 05/13 1545 AC 05/20 PO 2247 Insulin Aspart 0 AT BEDTIME 05/31 2200 AC 05/31 MA 2132 Insulin Aspart 0 TIDAC 05/31 0800 AC 06/01 MA 0801 Insulin Detemir 39 UNITS BID 05/31 2200 AC 06/01 MA 0802 Insulin Detemir 30 UNITS BID 05/30 1000 DC 05/31 MA 1013 Lorazepam 0.5 MG ONCE ONE 05/31 1500 DC 05/31 IV 05/31 1501 1456 Lorazepam 0.5 MG ONCE ONE 05/31 1445 DC IV 05/31 1446 Magnesium Chloride 64 MG DAILY 05/21 1246 AC 06/01 PO 0801 Oxacillin Sodium 2,000 MG Q4H 05/23 1030 AC 06/01 Sodium Chloride 100 ML IV 06/13 2355 0802 Oxycodone HCl 15 MG Q4 HRS NEEDED PRN 05/28 0900 AC 06/01 PO 0801 Pregabalin 150 MG BID 05/27 1000 AC 06/01 PO 0801 Quetiapine Fumarate 100 MG AT BEDTIME 05/28 2200 AC 05/31 PO 2134 Quetiapine Fumarate 25 MG Q8P PRN 05/28 1515 AC 05/30 PO 1307 Last 24 Hrs of Lab/Haris Results Last 24 Hrs of Labs/Mics: Laboratory Tests 06/01/16 0548: CBC w Diff MAN DIFF ORDERED, RBC 3.36 L, MCV 80.8 L, MCH 26.2 L, RDW 23.2 H, MPV 8.5, Gran % 45.0, Lymphocytes % 29.1, Monocytes % 9.4 H, Eosinophils % 15.8 H, Basophils % 0.7, Absolute Granulocytes 1.9, Absolute Lymphocytes 1.3, Absolute Monocytes 0.4, Absolute Eosinophils 0.7, Absolute Basophils 0, Platelet Estimate VERIFIED BY SMEAR, Polychromasia 1+, Basophilic Stippling SLIGHT, Anisocytosis 1+, PUBS MCHC 32.4 L Assessment/Plan Assessment: Ms. Urias is 40-year-old female with a past medical history of osteomyelitis of pubis, necrotizing fasciitis of the perineum, hysterectomy, colostomy reversed, left renal abscess, C. difficile colitis,anxiety, depression, chronic pain disorder,chronic back pain,chronic anemia, poorly controlled IDDM 2, DKA, recent fall with minimal displaced pelvic fracture, right shoulder cellulitis s/ p incision and drainage on oxacillin to finish a course of 4 weeks (untill May 12) discharged 04/18/16, presenting with a chief complaint of worsening right pelvic and hip pain. Now found to have pulmonary findings on CTA including a large pleural effusion, concerning for pneumonia, septic embolism and lung abscess. # Right sided pleural effusion - CTA (05/27) shows a new large right pleural effusion with collapse of the right lung and patchy airspace opacities concerning for pneumonia. There are also severeal areas of intraparenchymal hypoattenuation and small volume gas concerning for areas of pulmonary abscess formation. In the left lung there are 6 mm subpleural nodular opacity and several nodular opacities, concerning for septic emboli. Pyelonephritis cannot be excluded. - Pleural catheter placement (05/28) - Drained about 1L of blood-tinged fluid at the time of placement. Pleural fluid analysis - hemorrhagic exudative fluid, pleural cytology & culture - negativ. * 06/01: Draining 190 mL of serosanguinous fluid over the past 24 hours. * ID/Pulm/Thoracic surgery consulted, follow recs * Continue low wall suction until [id number] < 100 mL * Monitor off abx pending above per ID rec * Check CBC daily, trend WBC - WNL * Vitals per protocol, watch for fever # Pyuria possibly 2/2 fistula UA remakrable for a large amount of leuk esterase and WBC, and moderate epith cells. Ucx was negative. Patient currently has no urinary symptoms but CT abdomen/pelvis (05/27) showed air locules within the bladder and vagina. No h/o recent instrumentation and no evidence of signs/sxs of fistula on physical exam. - CT abd/pelvis with oral/IV/rectal contrast (05/30): No evidence of fistula or any other acute bowel pathology. Drainage catheter in place in the right pleural effusion with multiple foci of gas within the fluid. Areas of consolidation in the right lung concerning for possible atelectasis vs. pneumonia. Gas is seen within the bladder lumen, which is mostly decompressed. # S. aureus bacteremia Patient found to be septic on admission with fever, tachycardia and first set of blood cultures growing staph aureus. Patient was placed on vancomycin in addition to oxacillin on which patient had already been for cellulitis prior the this admission. Patient went into a septic shock on 05/06 which resolved with aggressive IVF resucsitation. Initial blood cultures and a series of repeat bcx' s grew MSSA. TTE and MONICA negative for endocarditis. Blood culture from the Pro line grew GPC before the peripheral line. This raised the suspicion that the source of infection could be from the Pro-line. Blood cultures from 05/12 growing GNR. Pro-line removed on 05/13. Tip of the catheter growing GNR, GPC, and staph coag negative. Repeat blood cultures from 05/13 and 05/15 NGTD - MRI pelvis (05/07): - Bone marrow edema within the pubic rami extending to the right acetabulum compatible with posttraumatic inflammatory change. Soft tissue edema surrounds the rami fractures without evidence of a focal, organized fluid collection in this region. Small right hip joint effusion nonspecific but possibly indicative of early infectious arthritis. New Pro-line placement on 05/20. - WBC scan (12/23): Grossly unremarkable except for moderately intense diffuse lung activity (nonspecific), possibly due to a diffuse inflammatoryprocess in the lungs * ID consulted, follow recs * Continue IV oxacillin, to be discontinued on 06/10/16 * Follow wound care recs # Chronic pain syndrome Patient carries a hx of chronic pain disorder. Patient does have a fracture in the right hip from a fall a month ago. Ortho saw the patient and recommended conservative management without any further interventions at that time. Ortho was contacted again on 05/13 and no interventions were recommended. * Cont IV Dilaudid 2mg IV Q4P * Cont Roxicodone to 15mg PO Q8P * Minimize IV narcotics * Pain management was consulted about methadone taper, follow recs # Anemia most likely 2/2 iron deficiency - Resolved Patient's hemoglobin dropped to 7.1 on 05/22. Hgb dropped to 6.9 despite receiving 1 unit of pRBC. She received 2 additional units with an appropriate response. [place] stool test negative. Iron studies significant for low Fe and slightly elevated TIBC. Patient was transfused a total of 3 units on 05/22. Most likely anemia of chronic disease vs. ACBL vs. Fe deficiency. * Cont iron supplementation * Transfuse if Hgb < 7 # Hyponatremia - Resolved Patient presented with a sodium level of 114 (corrected Na 122), consistent with acute on chronic hyponatremia. This is most attributable to pseudohyponatremia in the setting of hyperglycemia, possibly with a component of SIADH/sepsis/poor intake. Patient is currently has no significant neurological symptoms. Serum & urine osmolality WNL. # Poor controlled diabetes * Novolog SSI with accuchecks * Increase Levemir to 39U SQ BID # Mood disorders * Psych consulted, appreciate recs * Clonidine 0.1 mg PO Q8P, if opiate withdrawal symptoms. Hold Clonidine for blood pressure less than 90 mmHg systolic, less than 60 mmHg diastolic or pulse less than 55 BPM. * Baclofen 10 mg PO every 6 hours, as needed, for muscle cramps. * Dicyclomine 20 mg PO every 6 hours, as needed, for GI cramps. * Hydroxyzine 100 mg PO every 6 hours, as needed, for anxiety and itching. # Diet regular diet # Moderate-Severe pain pathway # DVT prophylaxis heparin subcutaneous # Full code Problem List: 1. Bacteremia 2. Pleural effusion 3. Right hip pain 4. Cellulitis Pain Ratin Pain Location: R hip Pain Goal: Pain 4 or less Pain Plan: Dilaudid 2mg IV Q4P Roxicodone to 15mg PO Q8 PRN Tomorrow's Labs & Rationales: CBC to monitor for infection Consulting Request: Consulting Specialty: Pain Web Master Physician: Gerald Dunbar MD Reason for Consult: bacteremia LONDON PARADA 06/06/16 1247: Attending MD Review Statement Attending Statement Attending MD Statement: examined this patient, discuss w/resident/PA/MUNITIONS WORKER, agreed w/resident/PA/MUNITIONS WORKER, reviewed EMR data (avail) Attending Assessment/Plan: Hemothorax status post chest tube placement. Patient still currently having the significant drainage from the chest tube which though has decreased to 190ml over last 24 hrs.. We'll follow up with pulmonary recommendations regarding discontinuation of chest tube once the drainage decreases below a certain level. Recurrent MSSA sepsis, felt most likely secondary to the Pro-Line catheter-We will continue with oxacillin until June 10 . Infectious disease is following we'll follow up with the recommendations. ? Fistula- CT abdomen and pelvis with rectal contrast to rule out fistula done on thursday-no fistula .
[2016-06-01 07:47] LABS: ABSOLUTE BASOPHIL COUNT 0 /CUMM (0.0-0.2); ABSOLUTE EOSINOPHIL COUNT 0.7 /CUMM (0.0-0.7); ABSOLUTE GRANULOCYTE CT 1.9 /CUMM (1.4-6.5); ABSOLUTE LYMPH COUNT 1.3 /CUMM (1.2-3.4); ABSOLUTE MONOCYTE COUNT 0.4 /CUMM (0.10-0.60); BASOPHIL % 0.7 % (0.0-2.0); EOSINOPHIL % 15.8 % (0-5); HEMATOCRIT 27.2 % (37-47); MEAN CORPUSCULAR HGB 26.2 PG (27.0-31.0); MEAN CORPUSCULAR HGB CONC 32.4 G/DL (33.0-37.0); MEAN CORPUSCULAR VOLUME 80.8 FL (81.0-99.0); MEAN PLATELET VOLUME 8.5 FL (7.4-10.4); PLATELET COUNT 210 /CUMM (130-400); RBC DISTRIBUTION WIDTH 23.2 % (11.5-14.5); RED BLOOD CELL CT 3.36 /CUMM (4.20-5.40); WHITE BLOOD CELL COUNT 4.3 /CUMM (4.8-10.8)
--- NOTE | 2016-06-01 10:47 | PN- Pulmonary ---
See Addendum Subjective HPI/Critical Care Issues: Day 5 s/p pleural catheter placement. Drainage amounting to about 190 mL of serosanguinous fluid over the past 24 hours. Patient endorses persistent pain in the right sided chest, flank and hip, under control with the current regimen, currently at 4 out of 10. However she c/o worsening pain in the left shoulder and says that "it feels like the bones are dislocated." Denies any palpitations, shortness of breath, fever, chills, nausea, vomiting, abdominal pain, diarrhea. Review of Systems Constitutional: Reports: see HPI. Objective Current Medications: Current Medications Sig/Shahla Start time Last Medication Dose Route Stop Time Status Admin Albuterol Sulfate 2 PUF Q4-6 PRN PRN 05/06 0100 AC INH Baclofen 10 MG Q6P PRN 05/08 2030 AC 05/29 PO 2114 Clonidine 0.1 MG Q8 05/080 AC 06/01 PO 0552 Cyclobenzaprine HCl 10 MG AT BEDTIME 05/23 2200 AC 05/31 PO 2130 Dicyclomine HCl 20 MG 4 TIMES/DAY PRN 05/08 2030 AC PO Diphenhydramine HCl 25 MG Q6P PRN 05/19 1200 AC 06/01 PO 0404 Ferrous Sulfate 325 MG TID 05/21 1600 AC 06/01 PO 0800 Heparin Sodium 5,000 UNIT Q8 05/31 1400 AC 06/01 (Porcine) SC 0549 Hydromorphone HCl 0.6 MG ONCE ONE 05/31 1500 DC 05/31 IV 05/31 1501 1456 Hydromorphone HCl 0.6 MG ONCE ONE 05/31 1445 DC IV 05/31 1446 Hydromorphone HCl 2 MG Q4P PRN 05/28 0930 AC 06/01 IV 0900 Hydroxyzine HCl 100 MG Q6-PRN PRN 05/13 1545 AC 05/20 PO 2247 Insulin Aspart 0 AT BEDTIME 05/31 2199 AC 05/31 SC 2132 Insulin Aspart 0 TIDAC 05/31 0800 AC 06/01 SC 0801 Insulin Detemir 39 UNITS BID 05/31 2200 AC 06/01 SC 0802 Insulin Detemir 30 UNITS BID 05/30 1000 DC 05/31 SC 1013 Lidocaine 1 PAT DAILY 01/15 1000 AC EXT Lorazepam 0.5 MG ONCE ONE 05/31 1500 DC 05/31 IV 05/31 1501 1456 Lorazepam 0.5 MG ONCE ONE 05/31 1445 DC IV 05/31 1446 Magnesium Chloride 64 MG DAILY 05/21 1246 AC 06/01 PO 0801 Oxacillin Sodium 2,000 MG Q4H 05/23 1030 AC 06/01 Sodium Chloride 100 ML IV 06/13 2355 0802 Oxycodone HCl 15 MG Q4 HRS NEEDED PRN 05/28 0900 AC 06/01 PO 0801 Pregabalin 150 MG BID 05/27 1000 AC 06/01 PO 0801 Quetiapine Fumarate 100 MG AT BEDTIME 05/28 2200 AC 05/31 PO 2134 Quetiapine Fumarate 25 MG Q8P PRN 05/28 1515 AC 05/30 PO 1307 Laboratory Tests 06/01 0548 Hematology CBC w Diff MAN DIFF ORDERED WBC (4.8 - 10.8 /CUMM) 4.3 L RBC (4.20 - 5.40 /CUMM) 3.36 L Hgb (12.0 - 16.0 G/DL) 8.8 L Hct (37 - 47 %) 27.2 L MCV (81.0 - 99.0 FL) 80.8 L MCH (27.0 - 31.0 PG) 26.2 L RDW (11.5 - 14.5 %) 23.2 H Plt Count (130 - 400 /CUMM) 210 MPV (7.4 - 10.4 FL) 8.5 Gran % (42.2 - 75.2 %) 45.0 Lymphocytes % (20.5 - 51.1 %) 29.1 Monocytes % (1.7 - 9.3 %) 9.4 H Eosinophils % (0 - 5 %) 15.8 H Basophils % (0.0 - 2.0 %) 0.7 Absolute Granulocytes (1.4 - 6.5 /CUMM) 1.9 Absolute Lymphocytes (1.2 - 3.4 /CUMM) 1.3 Absolute Monocytes (0.10 - 0.60 /CUMM) 0.4 Absolute Eosinophils (0.0 - 0.7 /CUMM) 0.7 Absolute Basophils (0.0 - 0.2 /CUMM) 0 Platelet Estimate (ADEQUATE) VERIFIED BY SMEAR Polychromasia 1+ Basophilic Stippling SLIGHT Anisocytosis 1+ PUBS MCHC (33.0 - 37.0 G/DL) 32.4 L 05/31 0815 Chemistry Sodium (137 - 145 mmol/L) 135 L Potassium (3.5 - 5.1 mmol/L) 4.4 Chloride (98 - 107 mmol/L) 95 L Carbon Dioxide (22 - 30 mmol/L) 31 H Anion Gap (5 - 16) 9 BUN (7 - 17 mg/dL) 15 Creatinine (0.5 - 1.0 mg/dL) 0.7 Estimated GFR (>60 ml/min) > 60 BUN/Creatinine Ratio (7 - 25 %) 21.4 Magnesium (1.6 - 2.3 mg/dL) 1.5 L Hematology CBC w Diff MAN DIFF ORDERED WBC (4.8 - 10.8 /CUMM) 4.6 L RBC (4.20 - 5.40 /CUMM) 3.39 L Hgb (12.0 - 16.0 G/DL) 8.9 L Hct (37 - 47 %) 27.2 L MCV (81.0 - 99.0 FL) 80.3 L MCH (27.0 - 31.0 PG) 26.3 L RDW (11.5 - 14.5 %) 23.1 H Plt Count (130 - 400 /CUMM) 219 MPV (7.4 - 10.4 FL) 8.0 Gran % (42.2 - 75.2 %) 49.1 Lymphocytes % (20.5 - 51.1 %) 23.6 Monocytes % (1.7 - 9.3 %) 8.5 Eosinophils % (0 - 5 %) 18.1 H Basophils % (0.0 - 2.0 %) 0.7 Absolute Granulocytes (1.4 - 6.5 /CUMM) 2.3 Absolute Lymphocytes (1.2 - 3.4 /CUMM) 1.1 L Absolute Monocytes (0.10 - 0.60 /CUMM) 0.4 Absolute Eosinophils (0.0 - 0.7 /CUMM) 0.8 Absolute Basophils (0.0 - 0.2 /CUMM) 0 Platelet Estimate (ADEQUATE) VERIFIED BY SMEAR Polychromasia 1+ Hypochromic-Microcytic 1+ Anisocytosis 1+ PUBS MCHC (33.0 - 37.0 G/DL) 32.8 L Vital Signs & I&O Last 24 Hrs of Vitals and I&O: Vital Signs Date Time Temp Pulse Resp B/P Pulse O2 O2 Flow FiO2 Ox Delivery Rate 06/01 0600 108 18 116/70 99 Nasal 3.0L Cannula 06/01 0552 108 18 116/70 06/01 0000 Nasal 3.0L Cannula 05/31 2207 98.2 113 20 140/80 96 Nasal 3.0L Cannula 05/31 2131 113 140/84 05/31 1600 Nasal 3.0L Cannula 05/31 1456 98.6 113 20 118/56 98 05/31 1416 80 124/68 Intake & Output 06/01 1600 06/01 0800 06/01 0000 Intake Total 540 950 Output Total 950 1340 Balance -410 -390 Intake, IV 240 Intake, Oral 300 950 Number 1 2 Bowel Movements Output, Chest 50 40 Tube Drainage Output, Urine 900 1300 Impression/Plan Impression/Plan Impression/Plan: Physical Exam General Appearance: Alert, Oriented X3, Cooperative, No Acute Distress Other Physical Findings: Skin cellulitis on the right shoulder healing well with scar formation, no oozing or drainage. No signs of infection around the Pro-line insertion site without drainage/erythema/tenderness. 4 x 2 unstageable pressure ulcer in the coccyx - moist yellow slough with periwound edge light purple discolored hue and scant drainage - improving. HEENT: Mucous Membr. moist/pink Cardiovascular: Regular Rate, Normal S1, Normal S2, No Murmurs, Gallops, Rubs Pulmonary: CTA, no crackles/rales/rhonchi Abdomen: Normal Bowel Sounds, Soft, Severe tenderenss in right flank. MSK: Severe pain in the right hip with limited ROM. Extremities: No Clubbing, No Cyanosis, No Edema IMPRESSION Pleural effusion on right, loculated, RLL atelectasis, RML and RUL partial atelectasis. Patchy airspace opacities. MSSA bacteremia, C.diff. Hemorrhagic exudative pleural fluid REC Cont drainage Still has more than 100 mL drainage Adequate po fluid Follow ID rec Repeat chest x-ray Pt may need decortication if no sig improvement
--- NOTE | 2016-06-01 13:02 | RADIOLOGY REPORT ---
EXAMINATION: 2 VIEW CHEST AND LEFT SHOULDER CLINICAL INFORMATION: Shortness of breath. Left shoulder pain with diminished range of motion. COMPARISON: Chest x-ray of May 30, 2016 and studies dating back to November 25, 2015 TECHNIQUE: Three-view left shoulder. AP and lateral chest. FINDINGS: AP and lateral views of the chest again demonstrate parenchymal disease in the right hemithorax which is a combination of pleural fluid and airspace disease. A right-sided chest tube is seen in place with what appears to be partially loculated pleural effusion with density seen about the anterior hemithorax as well as the posterior pleura where the catheter is located. There is a discoid region of atelectasis seen within the lower left lung. Heart normal size. No evidence of pulmonary edema. No pneumothorax is appreciated. Left internal jugular catheter is seen in place with its tip region of the junction of the left innominate vein and superior vena cava. Appearance of airspace disease is improved compared to prior study of May 30, 2016 3 views of the left shoulder do not demonstrate any evidence of acute fracture or dislocation. No calcific tendinitis. Glenohumeral joint appears unremarkable other than for some inferior spurring of the glenoid. IMPRESSION: Right-sided chest tube in place with continued airspace space disease and pleural effusion with improvement of right upper lung airspace disease. No significant left shoulder abnormality identified.
[2016-06-01 14:50] VITALS: BP 118/58
--- NOTE | 2016-06-01 18:00 | PN- Att Addend ---
Attending MD Review Statement Attending Statement Attending MD Statement: examined this patient, discuss w/resident/PA/CIRCUS LABORER, agreed w/resident/PA/CIRCUS LABORER, reviewed EMR data (avail), discussed w/nursing Attending Assessment/Plan: Patient seen and examined at bedside and they agree with the resident's care plan. Hemothorax status post chest tube placement. Patient still currently having the significant drainage from the chest tube which though has decreased to 190ml over last 24 hrs.. We'll follow up with pulmonary recommendations regarding discontinuation of chest tube once the drainage decreases below a certain level. Recurrent MSSA sepsis, felt most likely secondary to the Pro-Line catheter-We will continue with oxacillin until June 10 . Infectious disease is following we'll follow up with the recommendations. ? Fistula- CT abdomen and pelvis with rectal contrast to rule out fistula done on thursday-no fistula . d/w pt the care plan.
--- NOTE | 2016-06-01 18:08 | NUR ---
ADI CAREY NOTIFIED OF DRESSING CHANGE TO CHEST TUBE SITE. ADI IN PROCESS OF FINDING DRESSING CHANGE KIT.
[2016-06-01 22:26] VITALS: BP 138/76
--- NOTE | 2016-06-02 06:27 | PN- Housestaff ---
MARLENE FARFAN,MICHEL 06/02/16 0627: Subjective Follow-up For: Pleural effusion Bactermia Chronic pain syndrome Subjective: Patient seen and examined at bedside. Pleural cath draning about 250 mL of serosanguinous fluid over the past 24 hours. Patient endorses persistent pain in the right sided chest, flank and hip, under control with the current regimen. She reports feeling well with no new complaints. Denies any palpitations, shortness of breath, fever, chills, nausea, vomiting, abdominal pain, diarrhea. Review of Systems Constitutional: Reports: see HPI. Objective Last 24 Hrs of Vital Signs/I&O Vital Signs Date Time Temp Pulse Resp B/P Pulse O2 O2 Flow FiO2 Ox Delivery Rate 06/02 0731 97.6 102 20 136/74 97 Nasal 3.0L Cannula 06/02 0613 102 118/70 06/02 0000 Nasal 3.0L Cannula 06/01 2226 97.8 105 20 138/76 98 Nasal 3.0L Cannula 06/01 2127 105 138/76 06/01 1600 Nasal 3.0L Cannula 06/01 1450 98.7 107 20 118/58 97 06/01 1241 108 116/70 Intake & Output 06/02 1600 06/02 0800 06/02 0000 Intake Total 500 250 Output Total 1140 221 Balance -640 29 Intake, IV 300 150 Intake, Oral 200 100 Number 1 Bowel Movements Output, Chest 40 20 Tube Drainage Output, Stool 1 Output, Urine 1100 200 Physical Exam General Appearance: Alert, Oriented X3, Cooperative, No Acute Distress Other Physical Findings: Skin cellulitis on the right shoulder healing well with scar formation, no oozing or drainage. No signs of infection around the Pro-line insertion site without drainage/erythema/tenderness. 4 x 2 unstageable pressure ulcer in the coccyx - moist yellow slough with periwound edge light purple discolored hue and scant drainage - improving. HEENT: Mucous Membr. moist/pink Cardiovascular: Regular Rate, Normal S1, Normal S2, No Murmurs, Gallops, Rubs Pulmonary: Decreased breath sounds on the right lung. CTA on the left lung. Abdomen: Normal Bowel Sounds, Soft, Severe tenderenss in right flank. MSK: Severe pain in the right hip with limited ROM. Extremities: No Clubbing, No Cyanosis, No Edema Current Medications: Current Medications Sig/Shahla Start time Last Medication Dose Route Stop Time Status Admin Albuterol Sulfate 2 PUF Q4-6 PRN PRN 05/06 0100 AC INH Baclofen 10 MG Q6P PRN 05/08 2030 AC 05/29 PO 211 Clonidine 0.1 MG Q8 05/08 2200 AC 06/02 PO 0613 Cyclobenzaprine HCl 10 MG AT BEDTIME 05/23 2200 AC 06/01 PO 211 Dicyclomine HCl 20 MG 4 TIMES/DAY PRN 05/08 2030 AC PO Diphenhydramine HCl 25 MG ONCE ONE 06/02 0415 DC 06/02 PO 06/02 0416 0413 Diphenhydramine HCl 25 MG Q6P PRN 05/19 1200 AC 06/01 PO 1345 Ferrous Sulfate 325 MG TID 05/21 1600 AC 06/01 PO 211 Heparin Sodium 5,000 UNIT Q8 05/31 1400 AC 06/02 (Porcine) SC 0612 Hydromorphone HCl 2 MG Q4P PRN 05/28 0930 AC 06/02 IV 0803 Hydroxyzine HCl 100 MG Q6-PRN PRN 05/13 1545 AC 05/20 PO 2247 Insulin Aspart 0 AT BEDTIME 05/31 2199 AC 06/01 SC 2215 Insulin Aspart 0 TIDAC 05/31 0800 AC 06/02 SC 0803 Insulin Detemir 39 UNITS BID 05/31 220 AC 06/01 SC 211 Lidocaine 1 PAT DAILY 06/01 1000 AC 06/01 EXT 1201 Lorazepam 0.5 MG ONCE ONE 06/01 2199 DC 06/01 IV 06/01 220 2214 Magnesium Chloride 64 MG DAILY 05/21 1246 AC 06/01 PO 0801 Oxacillin Sodium 2,000 MG Q4H 05/23 1030 AC 06/02 Sodium Chloride 100 ML IV 06/13 2355 0613 Oxycodone HCl 15 MG Q4 HRS NEEDED PRN 05/28 0900 AC 06/02 PO 0654 Pregabalin 150 MG BID 05/27 1000 AC 06/01 PO 211 Quetiapine Fumarate 100 MG AT BEDTIME 05/28 2200 AC 06/01 PO 2114 Quetiapine Fumarate 25 MG Q8P PRN 05/28 1515 AC 05/30 PO 1307 Last 24 Hrs of Lab/Haris Results Last 24 Hrs of Labs/Mics: Laboratory Tests 06/02/16 0600: CBC w Diff Pending, WBC Pending, RBC Pending, Hgb Pending, Hct Pending, MCV Pending, MCH Pending, RDW Pending, Plt Count Pending, MPV Pending, PUBS MCHC Pending Assessment/Plan Assessment: Ms. Urias is 40-year-old female with a past medical history of osteomyelitis of pubis, necrotizing fasciitis of the perineum, hysterectomy, colostomy reversed, left renal abscess, C. difficile colitis,anxiety, depression, chronic pain disorder,chronic back pain,chronic anemia, poorly controlled IDDM 2, DKA, recent fall with minimal displaced pelvic fracture, right shoulder cellulitis s/ p incision and drainage on oxacillin to finish a course of 4 weeks (untill May 12) discharged 04/18/16, presenting with a chief complaint of worsening right pelvic and hip pain. Now found to have pulmonary findings on CTA including a large pleural effusion, concerning for pneumonia, septic embolism and lung abscess. # Right sided pleural effusion - CTA (05/27) shows a new large right pleural effusion with collapse of the right lung and patchy airspace opacities concerning for pneumonia. There are also severeal areas of intraparenchymal hypoattenuation and small volume gas concerning for areas of pulmonary abscess formation. In the left lung there are 6 mm subpleural nodular opacity and several nodular opacities, concerning for septic emboli. Pyelonephritis cannot be excluded. - Pleural catheter placement (05/28) - Drained about 1L of blood-tinged fluid at the time of placement. Pleural fluid analysis - hemorrhagic exudative fluid, pleural cytology & culture - negativ. * 06/02: Draining 250 mL of serosanguinous fluid over the past 24 hours. * ID/Pulm/Thoracic surgery consulted, follow recs * Continue low wall suction until 25-jlag-caxrjnzo < 100 mL * Monitor off abx pending above per ID rec * Check CBC daily, trend WBC - WNL * Vitals per protocol, watch for fever # Pyuria possibly 2/2 fistula UA remakrable for a large amount of leuk esterase and WBC, and moderate epith cells. Ucx was negative. Patient currently has no urinary symptoms but CT abdomen/pelvis (05/27) showed air locules within the bladder and vagina. No h/o recent instrumentation and no evidence of signs/sxs of fistula on physical exam. - CT abd/pelvis with oral/IV/rectal contrast (05/30): No evidence of fistula or any other acute bowel pathology. Drainage catheter in place in the right pleural effusion with multiple foci of gas within the fluid. Areas of consolidation in the right lung concerning for possible atelectasis vs. pneumonia. Gas is seen within the bladder lumen, which is mostly decompressed. # S. aureus bacteremia Patient found to be septic on admission with fever, tachycardia and first set of blood cultures growing staph aureus. Patient was placed on vancomycin in addition to oxacillin on which patient had already been for cellulitis prior the this admission. Patient went into a septic shock on 05/06 which resolved with aggressive IVF resucsitation. Initial blood cultures and a series of repeat bcx' s grew MSSA. TTE and MONICA negative for endocarditis. Blood culture from the Pro line grew GPC before the peripheral line. This raised the suspicion that the source of infection could be from the Pro-line. Blood cultures from 05/12 growing GNR. Pro-line removed on 05/13. Tip of the catheter growing GNR, GPC, and staph coag negative. Repeat blood cultures from 05/13 and 05/15 NGTD - MRI pelvis (05/07): - Bone marrow edema within the pubic rami extending to the right acetabulum compatible with posttraumatic inflammatory change. Soft tissue edema surrounds the rami fractures without evidence of a focal, organized fluid collection in this region. Small right hip joint effusion nonspecific but possibly indicative of early infectious arthritis. New Pro-line placement on 05/20. - WBC scan (05/09): Grossly unremarkable except for moderately intense diffuse lung activity (nonspecific), possibly due to a diffuse inflammatoryprocess in the lungs * ID consulted, follow recs * Continue IV oxacillin, to be discontinued on 06/10/16 * Follow wound care recs # Chronic pain syndrome Patient carries a hx of chronic pain disorder. Patient does have a fracture in the right hip from a fall a month ago. Ortho saw the patient and recommended conservative management without any further interventions at that time. Ortho was contacted again on 05/13 and no interventions were recommended. * Cont IV Dilaudid 2mg IV Q4P * Cont Roxicodone to 15mg PO Q8P * Minimize IV narcotics * Pain management was consulted about methadone taper, follow recs # Anemia most likely 2/2 iron deficiency - Resolved Patient's hemoglobin dropped to 7.1 on 05/22. Hgb dropped to 6.9 despite receiving 1 unit of pRBC. She received 2 additional units with an appropriate response. [place] stool test negative. Iron studies significant for low Fe and slightly elevated TIBC. Patient was transfused a total of 3 units on 05/22. Most likely anemia of chronic disease vs. ACBL vs. Fe deficiency. * Cont iron supplementation * Transfuse if Hgb < 7 # Hyponatremia - Resolved Patient presented with a sodium level of 114 (corrected Na 122), consistent with acute on chronic hyponatremia. This is most attributable to pseudohyponatremia in the setting of hyperglycemia, possibly with a component of SIADH/sepsis/poor intake. Patient is currently has no significant neurological symptoms. Serum & urine osmolality WNL. # Poor controlled diabetes * Novolog SSI with accuchecks * Increase Levemir to 39U SQ BID # Mood disorders * Psych consulted, appreciate recs * Clonidine 0.1 mg PO Q8P, if opiate withdrawal symptoms. Hold Clonidine for blood pressure less than 90 mmHg systolic, less than 60 mmHg diastolic or pulse less than 55 BPM. * Baclofen 10 mg PO every 6 hours, as needed, for muscle cramps. * Dicyclomine 20 mg PO every 6 hours, as needed, for GI cramps. * Hydroxyzine 100 mg PO every 6 hours, as needed, for anxiety and itching. # Diet regular diet # Moderate-Severe pain pathway # DVT prophylaxis - Lovenox # Full code Problem List: 1. Diabetes mellitus 2. Cellulitis 3. Pleural effusion 4. Bacteremia Pain Ratin Pain Location: R chest Pain Goal: Pain 4 or less Pain Plan: Dilaudid Roxicodone Tomorrow's Labs & Rationales: CBC to monitor for infection Consulting Request: Consulting Specialty: Pain Buggy Operator Physician: Gerald Dunbar MD Reason for Consult: bacteremia PARADAJOSELINDA 06/03/16 1328: Attending MD Review Statement Attending Statement Attending MD Statement: examined this patient, discuss w/resident/PA/INSPECTOR MACHINE CUT GLASS, agreed w/resident/PA/INSPECTOR MACHINE CUT GLASS, reviewed EMR data (avail), discussed with case mgmt Attending Assessment/Plan: Hemothorax status post chest tube placement. Patients drainage from the chest tube since 10pm last night is 60 ml. We'll follow up with pulmonary recommendations regarding discontinuation of chest tube once the drainage decreases below a certain level. Recurrent MSSA sepsis, felt most likely secondary to the Pro-Line catheter-We will continue with oxacillin until June 10 . Infectious disease is following we'll follow up with the recommendations. ? Fistula- CT abdomen and pelvis with rectal contrast to rule out fistula done on thursday-no fistula .
[2016-06-02 07:31] VITALS: BP 136/74
[2016-06-02 08:34] LABS: ABSOLUTE BASOPHIL COUNT 0 /CUMM (0.0-0.2); ABSOLUTE EOSINOPHIL COUNT 0.6 /CUMM (0.0-0.7); ABSOLUTE GRANULOCYTE CT 2.4 /CUMM (1.4-6.5); ABSOLUTE LYMPH COUNT 1.2 /CUMM (1.2-3.4); ABSOLUTE MONOCYTE COUNT 0.4 /CUMM (0.10-0.60); BASOPHIL % 0.5 % (0.0-2.0); EOSINOPHIL % 13.2 % (0-5); HEMATOCRIT 27.5 % (37-47); MEAN CORPUSCULAR HGB 26.3 PG (27.0-31.0); MEAN CORPUSCULAR HGB CONC 32.2 G/DL (33.0-37.0); MEAN CORPUSCULAR VOLUME 81.6 FL (81.0-99.0); MEAN PLATELET VOLUME 8.4 FL (7.4-10.4); PLATELET COUNT 216 /CUMM (130-400); RBC DISTRIBUTION WIDTH 23.3 % (11.5-14.5); RED BLOOD CELL CT 3.38 /CUMM (4.20-5.40); WHITE BLOOD CELL COUNT 4.6 /CUMM (4.8-10.8)
--- NOTE | 2016-06-02 09:38 | PN- Pulmonary ---
See Addendum Subjective HPI/Critical Care Issues: pt seen and examined continues to have some discomfort and chest tube output is continued no quintanilla no n/v/d/c no dyspnea at rest Objective Current Medications: Current Medications Sig/Shahla Start time Last Medication Dose Route Stop Time Status Admin Albuterol Sulfate 2 PUF Q4-6 PRN PRN 05/06 0100 AC INH Baclofen 10 MG Q6P PRN 05/08 2030 AC 05/29 PO 211 Clonidine 0.1 MG Q8 05/08 2200 AC 06/02 PO 0613 Cyclobenzaprine HCl 10 MG AT BEDTIME 05/23 2200 AC 06/01 PO 211 Dicyclomine HCl 20 MG 4 TIMES/DAY PRN 05/08 2030 AC PO Diphenhydramine HCl 25 MG ONCE ONE 06/02 0415 DC 06/02 PO 06/02 0416 0413 Diphenhydramine HCl 25 MG Q6P PRN 05/19 1200 AC 06/01 PO 1345 Ferrous Sulfate 325 MG TID 05/21 1600 AC 06/01 PO 211 Heparin Sodium 5,000 UNIT Q8 05/31 1400 AC 06/02 (Porcine) SC 0612 Hydromorphone HCl 2 MG Q4P PRN 05/28 0930 AC 06/02 IV 0803 Hydroxyzine HCl 100 MG Q6-PRN PRN 05/13 1545 AC 05/20 PO 2247 Insulin Aspart 0 AT BEDTIME 05/31 220 AC 06/01 SC 2215 Insulin Aspart 0 TIDAC 05/31 0800 AC 06/02 SC 0803 Insulin Detemir 39 UNITS BID 05/31 2200 AC 06/01 SC 211 Lidocaine 1 PAT DAILY 06/01 1000 AC 06/01 EXT 1201 Lorazepam 0.5 MG ONCE ONE 06/01 2199 DC 06/01 IV 06/01 220 221 Magnesium Chloride 64 MG DAILY 05/21 1246 AC 06/01 PO 0801 Oxacillin Sodium 2,000 MG Q4H 05/23 1030 AC 06/02 Sodium Chloride 100 ML IV 06/13 2355 0613 Oxycodone HCl 15 MG Q4 HRS NEEDED PRN 05/28 0900 AC 06/02 PO 0654 Pregabalin 150 MG BID 05/27 1000 AC 06/01 PO 211 Quetiapine Fumarate 100 MG AT BEDTIME 05/28 220 AC 06/01 PO 2114 Quetiapine Fumarate 25 MG Q8P PRN 05/28 1515 AC 05/30 PO 1307 Vital Signs & I&O Last 24 Hrs of Vitals and I&O: Vital Signs Date Time Temp Pulse Resp B/P Pulse O2 O2 Flow FiO2 Ox Delivery Rate 06/02 0731 97.6 102 20 136/74 97 Nasal 3.0L Cannula 06/02 06 102 118/70 06/02 0000 Nasal 3.0L Cannula 06/01 2226 97.8 105 20 138/76 98 Nasal 3.0L Cannula 06/01 2127 105 138/76 06/01 1600 Nasal 3.0L Cannula 06/01 1450 98.7 107 20 118/58 97 06/01 1241 108 116/70 Intake & Output 06/02 1600 06/02 0800 06/02 0000 Intake Total 500 250 Output Total 1140 221 Balance -640 29 Intake, IV 300 150 Intake, Oral 200 100 Number 1 Bowel Movements Output, Chest 40 20 Tube Drainage Output, Stool 1 Output, Urine 1100 200 Exam Other Physical Findings: General - Alert, awake and oriented HEENT - normocephalic, atraumatic Cardiovascular - S1, S2 Lungs - bilateral wheezing Abdomen - soft, bowel sounds positive, no tenderness Extremities - some edema Neuro patient is paraplegic Skin wound was not evaluated during this examination Results Last 24 Hrs of Lab Results: Laboratory Tests 06/02/16 0600: CBC w Diff NO MAN DIFF REQ, RBC 3.38 L, MCV 81.6, MCH 26.3 L, RDW 23.3 H, MPV 8.4, Gran % 52.0, Lymphocytes % 25.3, Monocytes % 9.0, Eosinophils % 13.2 H, Basophils % 0.5, Absolute Granulocytes 2.4, Absolute Lymphocytes 1.2, Absolute Monocytes 0.4, Absolute Eosinophils 0.6, Absolute Basophils 0, PUBS MCHC 32.2 L Impression/Plan Impression/Plan Impression/Plan: Impression Pleural effusion on right, loculated, RLL atelectasis, RML and RUL partial atelectasis. Patchy airspace opacities. MSSA bacteremia, C.diff. Hemorrhagic exudative pleural fluid Plan -Continue drainage of the 12 Danish indwelling pleural catheter until reduced to about <100/24hrs -Once fluid slows down to the above-mentioned number would repeat CAT scan of the chest to reevaluate lung parenchyma and pleural disease -Hemorrhagic exudative fluid, cytology negative -f/u Dr. Dunbar's recommendations -DVT prophylaxis at all times
--- NOTE | 2016-06-02 11:44 | NUR ---
PHYSICAL THERAPY-ATTEMPTED TO SEE Pt THIS AM. Pt POLITELY REFUSED AT THIS TIME STATING THAT SHE NEEDS TO GET SOME REST SHE HAD DIFFICULTY SLEEPING LAST NIGHT DUE TO THE PAIN. SHE IS REQUESTING FOR SOMEONE TO COME BACK LATER AT HER NEXT DOSE OF MEDICATION (3 PM). WILL F/U APPROPRIATE
--- NOTE | 2016-06-02 13:14 | PN- Infect Dx ---
Subjective Subjective: Afebrile. She feels improved with decreased pain in the right hip. She is ambulating more. She still notes discomfort in the right chest at the site of the pleural catheter. Objective Last 24 Hrs of Vital Signs/I&O Vital Signs Date Time Temp Pulse Resp B/P Pulse O2 O2 Flow FiO2 Ox Delivery Rate 06/02 1041 Room Air 2.0L 06/02 1039 Room Air 2.0L 06/02 0731 97.6 102 20 136/74 97 Nasal 3.0L Cannula 06/02 0613 102 118/70 06/02 0000 Nasal 3.0L Cannula 06/01 2226 97.8 105 20 138/76 98 Nasal 3.0L Cannula 06/01 2127 105 138/76 06/01 1600 Nasal 3.0L Cannula 06/01 1450 98.7 107 20 118/58 97 Intake & Output 06/02 1600 06/02 0800 06/02 0000 Intake Total 500 250 Output Total 1140 221 Balance -640 29 Intake, IV 300 150 Intake, Oral 200 100 Number 1 Bowel Movements Output, Chest 40 20 Tube Drainage Output, Stool 1 Output, Urine 1100 200 Physical Exam Other Physical Findings: She appears comfortable in no acute distress Chest Pro-Line in the left upper chest with no inflammation at the site; pleural catheter in place in the right chest, with 305 mL output yesterday and 40 mL overnight Lungs decreased breath sounds bilaterally Results Last 24 Hours of Lab Results: Laboratory Tests 06/02 0600 Hematology CBC w Diff NO MAN DIFF REQ WBC (4.8 - 10.8 /CUMM) 4.6 L RBC (4.20 - 5.40 /CUMM) 3.38 L Hgb (12.0 - 16.0 G/DL) 8.9 L Hct (37 - 47 %) 27.5 L MCV (81.0 - 99.0 FL) 81.6 MCH (27.0 - 31.0 PG) 26.3 L RDW (11.5 - 14.5 %) 23.3 H Plt Count (130 - 400 /CUMM) 216 MPV (7.4 - 10.4 FL) 8.4 Gran % (42.2 - 75.2 %) 52.0 Lymphocytes % (20.5 - 51.1 %) 25.3 Monocytes % (1.7 - 9.3 %) 9.0 Eosinophils % (0 - 5 %) 13.2 H Basophils % (0.0 - 2.0 %) 0.5 Absolute Granulocytes (1.4 - 6.5 /CUMM) 2.4 Absolute Lymphocytes (1.2 - 3.4 /CUMM) 1.2 Absolute Monocytes (0.10 - 0.60 /CUMM) 0.4 Absolute Eosinophils (0.0 - 0.7 /CUMM) 0.6 Absolute Basophils (0.0 - 0.2 /CUMM) 0 PUBS MCHC (33.0 - 37.0 G/DL) 32.2 L Last 24 Hours of Haris Results: No recent cultures Recent Imaging Studies: CT of the abdomen and pelvis with oral, IV and rectal contrast May 30 and negative for any fistula Chest x-ray June 01 improved aeration in the right lung Assessment/Plan Impression: Overall improved status post placement of a pleural catheter for a hemorrhagic pleural effusion in the right chest 5 days ago, possibly related to her prior trauma nearly 2 months prior to admission, with cytology and culture negative. She remains afebrile with white blood cell count normal on Oxacillin now Day 49 of treatment for recurrent MSSA sepsis, felt most likely secondary to the Pro- Line catheter, which was removed 20 days ago, with her last positive blood cultures for Staph aureus 24 days ago and with blood cultures obtained 23 days ago negative for Staph aureus. The recent CT scan did not suggest any evidence for a fistula despite the presence of air in the bladder on the previous CT scan. Suggestion: 1. Further management of her pleural catheter per Pulmonary 2. Continue Oxacillin
[2016-06-02 14:33] VITALS: BP 140/80
--- NOTE | 2016-06-02 15:43 | NUR ---
WOUND CARE: REEVAL OF WOUNDS - HEALING WELL DESPITE PT NONADHERENCE TO TOPICAL MANAGEMENT AND REFUSAL OF OFFLOADING MATTRESSES - COCCYX UNSTAGEABLE 1 X 0.3 CM PALE PINK BED WITH < 25% MOIST NONADHERENT SLOUGH - RIGHT BUTTOCKS UNSTAGEABLE 0.5 X 0.3 CM CLEAN PINK FILL WITH EPIBOLE - IN NEED OF CHEMICAL CAUTERIZATION TO WOUND EDGES - PT REFUSING RECOMMENDATION: CONT CURRENT WOUND CARE PREVIOUSLY ORDERED
--- NOTE | 2016-06-02 15:57 | PN- Att Addend ---
Attending MD Review Statement Attending Statement Attending MD Statement: examined this patient, discuss w/resident/PA/ANTENNA MACHINE OPERATOR, agreed w/resident/PA/ANTENNA MACHINE OPERATOR, reviewed EMR data (avail) Attending Assessment/Plan: Patient seen and examined at bedside and they agree with the resident's care plan. Hemothorax status post chest tube placement. Patients drainage from the chest tube since 10pm last night is 60 ml. We'll follow up with pulmonary recommendations regarding discontinuation of chest tube once the drainage decreases below a certain level. Recurrent MSSA sepsis, felt most likely secondary to the Pro-Line catheter-We will continue with oxacillin until June 10 . Infectious disease is following we'll follow up with the recommendations. ? Fistula- CT abdomen and pelvis with rectal contrast to rule out fistula done on thursday-no fistula . once the chest tube is removed, will switch her pain meds to po.
[2016-06-02 22:28] VITALS: BP 150/88
--- NOTE | 2016-06-03 06:35 | PN- Housestaff ---
See Addendum Subjective Follow-up For: Hemothorax Bactermia Chronic pain syndrome Subjective: Patient seen and examined at bedside. Pleural cath draning about 310 mL of serosanguinous fluid over the past 24 hours. She reports feeling well and even organized the room today. She endorses persistent pain in the right sided chest, flank and hip, under control with the current regimen. No new complaints. Denies any palpitations, shortness of breath, fever, chills, nausea, vomiting, abdominal pain, diarrhea, constipation. Review of Systems Constitutional: Reports: see HPI. Objective Last 24 Hrs of Vital Signs/I&O Vital Signs Date Time Temp Pulse Resp B/P Pulse O2 O2 Flow FiO2 Ox Delivery Rate 06/03 0800 Nasal 3.0L Cannula 06/03 0714 98.0 100 18 114/62 94 Room Air 06/03 0634 98.0 100 18 114/62 06/02 2228 97.9 105 20 150/88 93 Room Air 06/02 1452 100 140/80 06/02 1433 97.9 100 20 140/80 98 Room Air Intake & Output 06/03 1600 06/03 0800 06/03 0000 Intake Total 1240 950 Output Total 400 1980 40 Balance -400 -740 910 Intake, IV 260 250 Intake, Oral 980 700 Number 0 2 Bowel Movements Output, Chest 130 40 Tube Drainage Output, Urine 400 1850 Physical Exam General Appearance: Alert, Oriented X3, Cooperative, No Acute Distress Other Physical Findings: Skin cellulitis on the right shoulder healing well with scar formation, no oozing or drainage. No signs of infection around the Pro-line insertion site without drainage/erythema/tenderness. 4 x 2 unstageable pressure ulcer in the coccyx - moist yellow slough with periwound edge light purple discolored hue and scant drainage - improving. HEENT: Mucous Membr. moist/pink Cardiovascular: Regular Rate, Normal S1, Normal S2, No Murmurs, Gallops, Rubs Pulmonary: Decreased breath sounds on the right lung. CTA on the left lung. Abdomen: Normal Bowel Sounds, Soft, Severe tenderenss in right flank. MSK: Severe pain in the right hip with limited ROM. Extremities: No Clubbing, No Cyanosis, No Edema Current Medications: Current Medications Sig/Shahla Start time Last Medication Dose Route Stop Time Status Admin Albuterol Sulfate 2 PUF Q4-6 PRN PRN 05/06 0100 AC INH Baclofen 10 MG Q6P PRN 05/08 2030 AC 06/02 PO 2229 Clonidine 0.1 MG Q8 05/08 220 AC 06/03 PO 0634 Cyclobenzaprine HCl 10 MG AT BEDTIME 05/23 2200 AC 06/02 PO 2143 Dicyclomine HCl 20 MG 4 TIMES/DAY PRN 05/08 2030 AC PO Diphenhydramine HCl 25 MG Q6P PRN 05/19 1200 AC 06/03 PO 0642 Enoxaparin Sodium 40 MG DAILY@1500 06/02 1501 SC Ferrous Sulfate 325 MG TID 05/21 1600 AC 06/03 PO 0823 Heparin Sodium 5,000 UNIT Q8 05/31 1400 DC 06/02 (Porcine) SC 1500 Hydromorphone HCl 2 MG Q4P PRN 05/28 0930 06/03 IV 1021 Hydroxyzine HCl 100 MG Q6-PRN PRN 05/13 1545 AC 05/20 PO 2247 Insulin Aspart 0 AT BEDTIME 05/31 2199 06/02 SC 2141 Insulin Aspart 0 TIDAC 05/31 0800 06/03 SC 1238 Insulin Detemir 45 UNITS BID 06/02 2199 AC 06/03 SC 0824 Insulin Detemir 39 UNITS BID 05/31 220 DC 06/02 SC 1110 Lidocaine 1 PAT DAILY 06/01 1000 AC 06/03 EXT 0824 Lorazepam 0.5 MG ONCE ONE 06/02 1315 DC 06/02 IV 06/02 1316 1329 Magnesium Chloride 64 MG DAILY 05/21 1246 06/03 PO 0823 Oxacillin Sodium 2,000 MG Q4H 05/23 1030 06/03 Sodium Chloride 100 ML IV 06/13 2355 1024 Oxycodone HCl 15 MG Q4 HRS NEEDED PRN 05/28 09 AC 06/03 PO 1238 Pregabalin 150 MG BID 05/27 1000 06/03 PO 0823 Quetiapine Fumarate 100 MG AT BEDTIME 05/28 220 AC 06/02 PO 2143 Quetiapine Fumarate 25 MG Q8P PRN 05/28 1515 DC 05/30 PO 1307 Last 24 Hrs of Lab/Haris Results Last 24 Hrs of Labs/Mics: Laboratory Tests 06/03/16 0615: Anion Gap 7, Estimated GFR > 60, BUN/Creatinine Ratio 30.0 H, CBC w Diff NO MAN DIFF REQ, RBC 3.55 L, MCV 81.8, MCH 26.5 L, RDW 23.7 H, MPV 8.3, Gran % 48.8, Lymphocytes % 29.2, Monocytes % 8.9, Eosinophils % 12.5 H, Basophils % 0.6, Absolute Granulocytes 2.3, Absolute Lymphocytes 1.4, Absolute Monocytes 0.4, Absolute Eosinophils 0.6, Absolute Basophils 0, PUBS MCHC 32.4 L Assessment/Plan Assessment: Ms. Urias is 40-year-old female with a past medical history of osteomyelitis of pubis, necrotizing fasciitis of the perineum, hysterectomy, colostomy reversed, left renal abscess, C. difficile colitis,anxiety, depression, chronic pain disorder,chronic back pain,chronic anemia, poorly controlled IDDM 2, DKA, recent fall with minimal displaced pelvic fracture, right shoulder cellulitis s/ p incision and drainage on oxacillin to finish a course of 4 weeks (untill May 12) discharged 04/18/16, presenting with a chief complaint of worsening right pelvic and hip pain. Now found to have pulmonary findings on CTA including a large pleural effusion, concerning for pneumonia, septic embolism and lung abscess. # Right sided pleural effusion - CTA (05/27) shows a new large right pleural effusion with collapse of the right lung and patchy airspace opacities concerning for pneumonia. There are also severeal areas of intraparenchymal hypoattenuation and small volume gas concerning for areas of pulmonary abscess formation. In the left lung there are 6 mm subpleural nodular opacity and several nodular opacities, concerning for septic emboli. Pyelonephritis cannot be excluded. - Pleural catheter placement (05/28) - Drained about 1L of blood-tinged fluid at the time of placement. Pleural fluid analysis - hemorrhagic exudative fluid, pleural cytology & culture - negativ. * 06/03: Draining 310 mL of serosanguinous fluid over the past 24 hours. * ID/Pulm/Thoracic surgery consulted, follow recs * Continue low wall suction until 99-[id number]-[id number] < 100 mL * Monitor off abx pending above per ID rec * Check CBC daily, trend WBC - WNL * Vitals per protocol, watch for fever # Pyuria possibly 2/2 fistula UA remakrable for a large amount of leuk esterase and WBC, and moderate epith cells. Ucx was negative. Patient currently has no urinary symptoms but CT abdomen/pelvis (05/27) showed air locules within the bladder and vagina. No h/o recent instrumentation and no evidence of signs/sxs of fistula on physical exam. - CT abd/pelvis with oral/IV/rectal contrast (05/30): No evidence of fistula or any other acute bowel pathology. Drainage catheter in place in the right pleural effusion with multiple foci of gas within the fluid. Areas of consolidation in the right lung concerning for possible atelectasis vs. pneumonia. Gas is seen within the bladder lumen, which is mostly decompressed. # S. aureus bacteremia Patient found to be septic on admission with fever, tachycardia and first set of blood cultures growing staph aureus. Patient was placed on vancomycin in addition to oxacillin on which patient had already been for cellulitis prior the this admission. Patient went into a septic shock on 05/06 which resolved with aggressive IVF resucsitation. Initial blood cultures and a series of repeat bcx' s grew MSSA. TTE and MONICA negative for endocarditis. Blood culture from the Pro line grew GPC before the peripheral line. This raised the suspicion that the source of infection could be from the Pro-line. Blood cultures from 05/12 growing GNR. Pro-line removed on 05/13. Tip of the catheter growing GNR, GPC, and staph coag negative. Repeat blood cultures from 05/13 and 05/15 NGTD - MRI pelvis (05/07): - Bone marrow edema within the pubic rami extending to the right acetabulum compatible with posttraumatic inflammatory change. Soft tissue edema surrounds the rami fractures without evidence of a focal, organized fluid collection in this region. Small right hip joint effusion nonspecific but possibly indicative of early infectious arthritis. New Pro-line placement on 05/20. - WBC scan (05/09): Grossly unremarkable except for moderately intense diffuse lung activity (nonspecific), possibly due to a diffuse inflammatoryprocess in the lungs * ID consulted, follow recs * Continue IV oxacillin, to be discontinued on 06/10/16 * Arrange Pro-line removal outpatient by IR * Follow wound care recs # Chronic pain syndrome Patient carries a hx of chronic pain disorder. Patient does have a fracture in the right hip from a fall a month ago. Ortho saw the patient and recommended conservative management without any further interventions at that time. Ortho was contacted again on 05/13 and no interventions were recommended. * Cont IV Dilaudid 2mg IV Q4P * Cont Roxicodone to 15mg PO Q8P * Minimize IV narcotics * Pain management was consulted about methadone taper, follow recs # Anemia most likely 2/2 iron deficiency - Resolved Patient's hemoglobin dropped to 7.1 on 05/22. Hgb dropped to 6.9 despite receiving 1 unit of pRBC. She received 2 additional units with an appropriate response. [place] stool test negative. Iron studies significant for low Fe and slightly elevated TIBC. Patient was transfused a total of 3 units on 05/22. Most likely anemia of chronic disease vs. ACBL vs. Fe deficiency. * Cont iron supplementation * Transfuse if Hgb < 7 # Hyponatremia - Resolved Patient presented with a sodium level of 114 (corrected Na 122), consistent with acute on chronic hyponatremia. This is most attributable to pseudohyponatremia in the setting of hyperglycemia, possibly with a component of SIADH/sepsis/poor intake. Patient is currently has no significant neurological symptoms. Serum & urine osmolality WNL. # Poor controlled diabetes * Novolog SSI with accuchecks * Increase Levemir to 45U SQ BID # Mood disorders * Psych consulted, appreciate recs * Cont Seroquel at bedtime as pt finds it helpful # Diet regular diet # Moderate-Severe pain pathway # DVT prophylaxis - Lovenox # Full code Problem List: 1. Diabetes mellitus 2. Hypoglycemia 3. Pleural effusion 4. Bacteremia 5. Right hip pain Pain Ratin Pain Location: R chest/hip Pain Goal: Pain 4 or less Pain Plan: Dilaudid Roxicodone Tomorrow's Labs & Rationales: CBC to monitor for infection Consulting Request: Consulting Specialty: Pain Cash Applications Analyst Physician: Gerald Dunbar MD Reason for Consult: bacteremia
[2016-06-03 07:14] VITALS: BP 114/62
[2016-06-03 08:13] LABS: ABSOLUTE BASOPHIL COUNT 0 /CUMM (0.0-0.2); ABSOLUTE EOSINOPHIL COUNT 0.6 /CUMM (0.0-0.7); ABSOLUTE GRANULOCYTE CT 2.3 /CUMM (1.4-6.5); ABSOLUTE LYMPH COUNT 1.4 /CUMM (1.2-3.4); ABSOLUTE MONOCYTE COUNT 0.4 /CUMM (0.10-0.60); BASOPHIL % 0.6 % (0.0-2.0); EOSINOPHIL % 12.5 % (0-5); GRANULOCYTE % 48.8 % (42.2-75.2); MEAN CORPUSCULAR HGB 26.5 PG (27.0-31.0); MEAN CORPUSCULAR HGB CONC 32.4 G/DL (33.0-37.0); MEAN CORPUSCULAR VOLUME 81.8 FL (81.0-99.0); MEAN PLATELET VOLUME 8.3 FL (7.4-10.4); PLATELET COUNT 221 /CUMM (130-400); RBC DISTRIBUTION WIDTH 23.7 % (11.5-14.5); RED BLOOD CELL CT 3.55 /CUMM (4.20-5.40); WHITE BLOOD CELL COUNT 4.7 /CUMM (4.8-10.8)
--- NOTE | 2016-06-03 12:04 | PN- Pulmonary ---
Subjective HPI/Critical Care Issues: Patient seen and examined. No chest pain, at respiratory baseline. No nausea, vomiting, diarrhea or constipation. Afebrile and hemodynamically stable. Objective Current Medications: Current Medications Sig/Shahla Start time Last Medication Dose Route Stop Time Status Admin Albuterol Sulfate 2 PUF Q4-6 PRN PRN 05/06 0100 AC INH Baclofen 10 MG Q6P PRN 05/08 2030 AC 06/02 PO 2229 Clonidine 0.1 MG Q8 05/080 AC 06/03 PO 0634 Cyclobenzaprine HCl 10 MG AT BEDTIME 05/23 2200 AC 06/02 PO 2143 Dicyclomine HCl 20 MG 4 TIMES/DAY PRN 05/08 2030 AC PO Diphenhydramine HCl 25 MG Q6P PRN 05/19 1200 AC 06/03 PO 0642 Enoxaparin Sodium 40 MG DAILY@1500 06/02 1501 AC SC Ferrous Sulfate 325 MG TID 05/21 1600 AC 06/03 PO 0823 Heparin Sodium 5,000 UNIT Q8 05/31 1400 DC 06/02 (Porcine) SC 1500 Hydromorphone HCl 2 MG Q4P PRN 05/28 0930 AC 06/03 IV 1021 Hydroxyzine HCl 100 MG Q6-PRN PRN 05/13 1545 AC 05/20 PO 2247 Insulin Aspart 0 AT BEDTIME 05/31 2199 AC 06/02 SC 2141 Insulin Aspart 0 TIDAC 05/31 0800 AC 06/03 SC 0824 Insulin Detemir 45 UNITS BID 06/02 220 AC 06/03 SC 0824 Insulin Detemir 39 UNITS BID 05/31 2200 DC 06/02 SC 1110 Lidocaine 1 PAT DAILY 06/01 1000 AC 06/03 EXT 0824 Lorazepam 0.5 MG ONCE ONE 06/02 1315 DC 06/02 IV 06/02 1316 1329 Magnesium Chloride 64 MG DAILY 05/21 1246 AC 06/03 PO 0823 Oxacillin Sodium 2,000 MG Q4H 05/23 1030 AC 06/03 Sodium Chloride 100 ML IV 06/13 2355 1024 Oxycodone HCl 15 MG Q4 HRS NEEDED PRN 05/28 0900 AC 06/03 PO 0822 Pregabalin 150 MG BID 05/27 1000 AC 06/03 PO 0823 Quetiapine Fumarate 100 MG AT BEDTIME 05/28 2200 AC 06/02 PO 2143 Quetiapine Fumarate 25 MG Q8P PRN 05/28 1515 DC 05/30 PO 1307 Vital Signs & I&O Last 24 Hrs of Vitals and I&O: Vital Signs Date Time Temp Pulse Resp B/P Pulse O2 O2 Flow FiO2 Ox Delivery Rate 06/03 0800 Nasal 3.0L Cannula 06/03 0714 98.0 100 18 114/62 94 Room Air 06/03 0634 98.0 100 18 114/62 06/02 2228 97.9 105 20 150/88 93 Room Air 06/02 1452 100 140/80 06/02 1433 97.9 100 20 140/80 98 Room Air Intake & Output 06/03 1600 06/03 0800 06/03 0000 Intake Total 1240 950 Output Total 1980 40 Balance -740 910 Intake, IV 260 250 Intake, Oral 980 700 Number 0 2 Bowel Movements Output, Chest 130 40 Tube Drainage Output, Urine 1850 Exam Other Physical Findings: General - Alert and awake HEENT - NCAT Cardiovascular - S1, S2 Lungs - diminished breath sounds bilaterally, left-sided central catheter, 12 [place] indwelling pleural catheter Abdomen - soft, bowel sounds positive, no tenderness Extremities - without edema or cyanosis Results Last 24 Hrs of Lab Results: Laboratory Tests 06/03/16 0615: Anion Gap 7, Estimated GFR > 60, BUN/Creatinine Ratio 30.0 H, CBC w Diff NO MAN DIFF REQ, RBC 3.55 L, MCV 81.8, MCH 26.5 L, RDW 23.7 H, MPV 8.3, Gran % 48.8, Lymphocytes % 29.2, Monocytes % 8.9, Eosinophils % 12.5 H, Basophils % 0.6, Absolute Granulocytes 2.3, Absolute Lymphocytes 1.4, Absolute Monocytes 0.4, Absolute Eosinophils 0.6, Absolute Basophils 0, PUBS MCHC 32.4 L Impression/Plan Impression/Plan Impression/Plan: Impression Pleural effusion on right, loculated, RLL atelectasis, RML and RUL partial atelectasis. Patchy airspace opacities. MSSA bacteremia, C.diff. Hemorrhagic exudative pleural fluid Plan -will d/w Dr. Anne consideration for lytics -Hemorrhagic exudative fluid, cytology negative -f/u Dr. Dunbar's recommendations -DVT prophylaxis at all times
[2016-06-03 13:58] VITALS: BP 120/80
[2016-06-03] MEDS ORDERED: SLOW-MAG71.5 MG PO (15:34)
[2016-06-03] MEDS ORDERED: CYCLOBENZAPRINE10 M1 PO (15:37)
[2016-06-03] MEDS ORDERED: BACLOFEN10 M1 PO (15:37)
--- NOTE | 2016-06-03 15:56 | NUR ---
SHARIFA HAS ARRIVED AT THIS TIME CALL PLACED TO SURGICAL PA
--- NOTE | 2016-06-03 16:15 | NUR ---
SURGICAL PA WILFRID TO FLOOR AT THIS TIME TO INSTILL [place]. CLAMPED OFF AT THIS TIME PER ORDERS FOR 4 HOURS, WILL UNCLAMP AT 2000.
--- NOTE | 2016-06-03 16:16 | PN- Thoracic Surgery ---
Subjective Subjective: AT BEDSIDE AT REQUEST OF DR MALONE FOR LYTICS Objective Vital Signs and I&Os Vital Signs Date Time Temp Pulse Resp B/P Pulse O2 O2 Flow FiO2 Ox Delivery Rate 06/03 1358 97.6 100 20 120/80 97 Nasal 3.0L Cannula 06/03 1316 100 114/62 06/03 0800 Nasal 3.0L Cannula 06/03 0714 98.0 100 18 114/62 94 Room Air 06/03 0634 98.0 100 18 114/62 06/02 2228 97.9 105 20 150/88 93 Room Air Intake & Output 06/03 1600 06/03 0800 06/03 0000 06/02 1600 06/02 0800 06/02 0000 Intake Total 940 8036 148 6076 500 250 Output Total 2450 1980 40 2690 1140 221 Balance -1510 -740 910 -1430 -640 29 Intake, IV 220 260 250 260 300 150 Intake, Oral 720 019 263 6986 200 100 Number 0 2 1 1 Bowel Movements Output, Chest 100 130 40 140 40 20 Tube Drainage Output, Stool 1 Output, Urine 2350 1850 2550 1100 200 Physical Exam: COMFORTABLE Assessment/Plan Assessment/Plan AT BEDSIDE FOR ALTEPLASE INJECTION INTO RIGTH CHEST TUBE ALTEPLASE 10MG/1OML NS INJECTED INTO L\RIGHT CHEST TUBE PATIENT TOLERATED PROCEDURE PLAN CLAMP CHEST TUBE FOR [address]HR [address] BACK ON SUCTION
--- NOTE | 2016-06-03 18:57 | NUR ---
1819 CALLED INTO ROOM BY PT AT THIS TIME STATING SHE "FEELS SO ANXIOUS" AND "NEEDS SOMETHING TO CALM DOWN" ACCOUNTING/FINANCE TUTOR MARILU ON FLOOR AT THIS TIME. ONE TIME ORDER PLACED FOR 1MG IV DILAUDID, MEDICATION ADMINISTERED AT THIS TIME ORDERED. PT STATING THAT SHE HAS "SHARP PAINS" IN RIGHT SIDE "WHERE THE TUBE IS" AND STATING "REALLY ANXIOUS". 1899 CALLED TO ROOM BY PT STATING THAT "MEDICATION DIDNT WORK" AND "NEED SOMETHING ELSE, THIS HURTS AND IM SO ANXIOUS" PT ROCKING BACK AND FORTH, CRYING. CALL PLACED TO ACCOUNTING/FINANCE TUTOR MARILU AT THIS TIME, SEE NEW ORDERS. EMOTIONAL SUPPORT GIVEN, WILL CONTINUE TO MONITOR
--- NOTE | 2016-06-03 20:25 | NUR ---
CHEST TUBE UNCLAMPED AT THIS TIME PT C/O 02/24 PAIN TO SITE RIGHT BEFORE AND AFTER UNCLAMPING. BLOODY DRAINAGE FREELY FLOWING FROM TUBE INTO CANISTER. TOTAL OF 500 OBTAINED INITIALLY. CANISTER CHANGED AT THIS TIME PREVIOUS HAS MAXED OUT TOTAL VOLUME TO HOLD. CALL PLACED TO WOOL SAMPLER AT THIS TIME PT CONTINUES TO COMPAIN OF " EXTREME PAIN IN MY SIDE" HOLDING RIGHT SIDE, HUNCHED OVER. CALL PLACED TO MOD AT THIS TIME
--- NOTE | 2016-06-03 20:35 | NUR ---
call from corporate communications intern at this time, stated to try prn roxicodone, pt is refusing this medication "NO! Zainab been sitting here all this time tell her to come here i need dilaudid!" call placed back to corporate communications intern
[2016-06-03 21:57] VITALS: BP 108/68
--- NOTE | 2016-06-04 06:24 | PN- Housestaff ---
See Addendum Subjective Follow-up For: Hemothorax Bactermia Chronic pain syndrome Subjective: Patient seen and examined at bedside. Patient reports increasing pain after tPA injection yesterday. She starts crying as soon as I come into the room, complaining of persistent pain in the right sided chest, flank and hip. She demands that IV Dilaudid be increased to every 3 hours. Denies any palpitations, shortness of breath, fever, chills, nausea, vomiting, abdominal pain, diarrhea. Review of Systems Constitutional: Reports: see HPI. Objective Last 24 Hrs of Vital Signs/I&O Vital Signs Date Time Temp Pulse Resp B/P Pulse O2 O2 Flow FiO2 Ox Delivery Rate 06/04 0640 98.4 109 20 110/70 97 Nasal Cannula 06/04 0625 98.4 109 20 110/70 06/03 2157 98.7 119 20 108/68 97 Nasal Cannula 06/03 1358 97.6 100 20 120/80 97 Nasal 3.0L Cannula 06/03 1316 100 114/62 Intake & Output 06/04 1600 06/04 0800 06/04 0000 Intake Total 1200 Output Total 900 Balance 300 Intake, IV 500 Intake, Oral 700 Number 1 Bowel Movements Output, Chest 900 Tube Drainage Physical Exam General Appearance: Alert, Oriented X3, Cooperative, Mild Distress Other Physical Findings: Skin cellulitis on the right shoulder healing well with scar formation, no oozing or drainage. No signs of infection around the Pro-line insertion site without drainage/erythema/tenderness. 4 x 2 unstageable pressure ulcer in the coccyx - moist yellow slough with periwound edge light purple discolored hue and scant drainage - improving. HEENT: Mucous Membr. moist/pink Cardiovascular: Regular Rate, Normal S1, Normal S2, No Murmurs, Gallops, Rubs Pulmonary: Decreased breath sounds on the right lung. CTA on the left lung. Abdomen: Normal Bowel Sounds, Soft, Severe tenderenss in right flank. MSK: Severe pain in the right hip with limited ROM. Extremities: No Clubbing, No Cyanosis, No Edema Assessment/Plan Assessment: Ms. Urias is 40-year-old female with a past medical history of osteomyelitis of pubis, necrotizing fasciitis of the perineum, hysterectomy, colostomy reversed, left renal abscess, C. difficile colitis,anxiety, depression, chronic pain disorder,chronic back pain,chronic anemia, poorly controlled IDDM 2, DKA, recent fall with minimal displaced pelvic fracture, right shoulder cellulitis s/ p incision and drainage on oxacillin to finish a course of 4 weeks (untill May 12) discharged 04/18/16, presenting with a chief complaint of worsening right pelvic and hip pain. Now found to have pulmonary findings on CTA including a large pleural effusion, concerning for pneumonia, septic embolism and lung abscess. # Right sided pleural effusion - CTA (05/27) shows a new large right pleural effusion with collapse of the right lung and patchy airspace opacities concerning for pneumonia. There are also severeal areas of intraparenchymal hypoattenuation and small volume gas concerning for areas of pulmonary abscess formation. In the left lung there are 6 mm subpleural nodular opacity and several nodular opacities, concerning for septic emboli. Pyelonephritis cannot be excluded. - Pleural catheter placement (05/28) - Drained about 1L of blood-tinged fluid at the time of placement. Pleural fluid analysis - hemorrhagic exudative fluid, pleural cytology & culture - negativ. * 06/04: Drained close to 1L of serosanguinous fluid over the past 24 hours after TPA injection by surgery * ID/Pulm/Thoracic surgery consulted, follow recs * Remove pleural cath when [id number] < 100 mL and then repeat CT chest * Monitor off abx pending above per ID rec * Check CBC daily, trend WBC - WNL * Vitals per protocol, watch for fever # Pyuria possibly 2/2 fistula UA remakrable for a large amount of leuk esterase and WBC, and moderate epith cells. Ucx was negative. Patient currently has no urinary symptoms but CT abdomen/pelvis (05/27) showed air locules within the bladder and vagina. No h/o recent instrumentation and no evidence of signs/sxs of fistula on physical exam. - CT abd/pelvis with oral/IV/rectal contrast (05/30): No evidence of fistula or any other acute bowel pathology. Drainage catheter in place in the right pleural effusion with multiple foci of gas within the fluid. Areas of consolidation in the right lung concerning for possible atelectasis vs. pneumonia. Gas is seen within the bladder lumen, which is mostly decompressed. # S. aureus bacteremia Patient found to be septic on admission with fever, tachycardia and first set of blood cultures growing staph aureus. Patient was placed on vancomycin in addition to oxacillin on which patient had already been for cellulitis prior the this admission. Patient went into a septic shock on 05/06 which resolved with aggressive IVF resucsitation. Initial blood cultures and a series of repeat bcx' s grew MSSA. TTE and MONICA negative for endocarditis. Blood culture from the Pro line grew GPC before the peripheral line. This raised the suspicion that the source of infection could be from the Pro-line. Blood cultures from 05/12 growing GNR. Pro-line removed on 05/13. Tip of the catheter growing GNR, GPC, and staph coag negative. Repeat blood cultures from 05/13 and 05/15 NGTD - MRI pelvis (05/07): - Bone marrow edema within the pubic rami extending to the right acetabulum compatible with posttraumatic inflammatory change. Soft tissue edema surrounds the rami fractures without evidence of a focal, organized fluid collection in this region. Small right hip joint effusion nonspecific but possibly indicative of early infectious arthritis. New Pro-line placement on 05/20. - WBC scan (05/09): Grossly unremarkable except for moderately intense diffuse lung activity (nonspecific), possibly due to a diffuse inflammatoryprocess in the lungs * ID consulted, follow recs * Continue IV oxacillin, to be discontinued on 06/10/16 * Arrange Pro-line removal outpatient by IR * Follow wound care recs # Chronic pain syndrome Patient carries a hx of chronic pain disorder. Patient does have a fracture in the right hip from a fall a month ago. Ortho saw the patient and recommended conservative management without any further interventions at that time. Ortho was contacted again on 05/13 and no interventions were recommended. * Cont IV Dilaudid 2mg IV Q4P * Cont Roxicodone to 15mg PO Q8P * Minimize IV narcotics * Pain management was consulted about methadone taper, follow recs # Poor controlled diabetes * Novolog SSI with accuchecks * Increase Levemir to 50U SQ BID # Anemia most likely 2/2 iron deficiency - Resolved Patient's hemoglobin dropped to 7.1 on 05/22. Hgb dropped to 6.9 despite receiving 1 unit of pRBC. She received 2 additional units with an appropriate response. [place] stool test negative. Iron studies significant for low Fe and slightly elevated TIBC. Patient was transfused a total of 3 units on 05/22. Most likely anemia of chronic disease vs. ACBL vs. Fe deficiency. * Cont iron supplementation * Transfuse if Hgb < 7 # Hyponatremia - Resolved Patient presented with a sodium level of 114 (corrected Na 122), consistent with acute on chronic hyponatremia. This is most attributable to pseudohyponatremia in the setting of hyperglycemia, possibly with a component of SIADH/sepsis/poor intake. Patient is currently has no significant neurological symptoms. Serum & urine osmolality WNL. # Mood disorders * Psych consulted, appreciate recs * Cont Seroquel at bedtime as pt finds it helpful # Diet regular diet # Moderate-Severe pain pathway # DVT prophylaxis - Lovenox # Full code Problem List: 1. Pleural effusion 2. Bacteremia 3. Right hip pain 4. Cellulitis 5. Fracture of right inferior pubic ramus Pain Ratin Pain Location: Right hip/chest/flank Pain Goal: Pain 4 or less Pain Plan: Dilaudid Roxicodone Tomorrow's Labs & Rationales: CBC to monitor H/H for possible anemia Consulting Request: Consulting Specialty: Pain Core Drier Physician: Gerald Dunbar MD Reason for Consult: bacteremia
[2016-06-04 06:40] VITALS: BP 110/70
[2016-06-04 08:55] LABS: ABSOLUTE BASOPHIL COUNT 0 /CUMM (0.0-0.2); ABSOLUTE EOSINOPHIL COUNT 0.5 /CUMM (0.0-0.7); MEAN CORPUSCULAR HGB 26.7 PG (27.0-31.0); RBC DISTRIBUTION WIDTH 24.1 % (11.5-14.5)
[2016-06-04 09:03] LABS: ABSOLUTE GRANULOCYTE CT 5.8 /CUMM (1.4-6.5); ABSOLUTE LYMPH COUNT 1.2 /CUMM (1.2-3.4); ABSOLUTE MONOCYTE COUNT 0.4 /CUMM (0.10-0.60); BASOPHIL % 0.3 % (0.0-2.0); EOSINOPHIL % 6.3 % (0-5); HEMATOCRIT 31.4 % (37-47); MEAN CORPUSCULAR HGB CONC 32.5 G/DL (33.0-37.0); MEAN CORPUSCULAR VOLUME 82.3 FL (81.0-99.0); MEAN PLATELET VOLUME 8.4 FL (7.4-10.4); PLATELET COUNT 214 /CUMM (130-400); RED BLOOD CELL CT 3.81 /CUMM (4.20-5.40)
[2016-06-04 09:05] LABS: WHITE BLOOD CELL COUNT 7.9 /CUMM (4.8-10.8)
--- NOTE | 2016-06-04 10:10 | PN- Pulmonary ---
Subjective HPI/Critical Care Issues: Patient seen and examined. No chest pain, at respiratory baseline. No nausea, vomiting, diarrhea or constipation. Afebrile and hemodynamically stable. Objective Current Medications: Current Medications Sig/Shahla Start time Last Medication Dose Route Stop Time Status Admin Albuterol Sulfate 2 PUF Q4-6 PRN PRN 05/06 0100 AC INH Alteplase, 10 MG ONE ONE 06/04 0930 DC Recombinant IV 06/04 0931 Alteplase, 10 MG ONE ONE 06/03 1430 DC 06/03 Recombinant IV 06/03 1431 1606 Alteplase, 10 MG ONE ONE 06/03 1400 CAN Recombinant IV 06/04 1401 Baclofen 10 MG Q6P PRN 05/08 2030 AC 06/02 PO 2229 Clonidine 0.1 MG Q8 05/08 2200 AC 06/04 PO 0625 Cyclobenzaprine HCl 10 MG AT BEDTIME 05/23 2200 AC 06/03 PO 2140 Dicyclomine HCl 20 MG 4 TIMES/DAY PRN 05/08 2030 AC PO Diphenhydramine HCl 25 MG Q6P PRN 05/19 1200 AC 06/04 PO 0822 Enoxaparin Sodium 40 MG DAILY@1500 06/02 1501 AC 06/03 SC 1316 Ferrous Sulfate 325 MG TID 05/21 1600 AC 06/04 PO 0823 Hydromorphone HCl 2 MG ONCE PRN 06/03 2045 AC 06/03 IV 2043 Hydromorphone HCl 1 MG ONCE ONE 06/03 1830 DC 06/03 IV 06/03 1831 1823 Hydromorphone HCl 2 MG Q4P PRN 05/28 0930 AC 06/04 IV 0730 Hydroxyzine HCl 100 MG Q6-PRN PRN 05/13 1545 AC 05/20 PO 2247 Insulin Aspart 0 AT BEDTIME 05/31 2200 AC 06/03 SC 2141 Insulin Aspart 0 TIDAC 05/31 0800 AC 06/04 SC 0822 Insulin Detemir 47 UNITS BID 06/04 1000 DC 06/04 SC 0822 Insulin Detemir 50 UNITS BID 06/04 1000 AC SC Insulin Detemir 45 UNITS BID 06/02 2200 DC 06/03 SC 2141 Lidocaine 1 PAT DAILY 06/01 1000 AC 06/04 EXT 0823 Lorazepam 0.5 MG ONCE ONE 06/04 0800 DC 06/04 IV 06/04 0801 0822 Lorazepam 0.5 MG ONCE ONE 06/03 1999 DC 06/03 IV 06/03 Magnesium Chloride 64 MG DAILY 05/21 1246 AC 06/04 PO 0823 Oxacillin Sodium 2,000 MG Q4H 05/23 1030 AC 06/04 Sodium Chloride 100 ML IV 06/13 2355 0633 Oxycodone HCl 15 MG Q4 HRS NEEDED PRN 05/28 0900 AC 06/04 PO 0620 Pregabalin 150 MG BID 05/27 1000 AC 06/04 PO 0823 Quetiapine Fumarate 100 MG AT BEDTIME 05/28 2200 AC 06/03 PO 2140 Vital Signs & I&O Last 24 Hrs of Vitals and I&O: Vital Signs Date Time Temp Pulse Resp B/P Pulse O2 O2 Flow FiO2 Ox Delivery Rate 06/04 08 Nasal 4.0L Cannula 06/04 0640 98.4 109 20 110/70 97 Nasal Cannula 06/04 0625 98.4 109 20 110/70 06/03 2157 98.7 119 20 108/68 97 Nasal Cannula 06/03 1358 97.6 100 20 120/80 97 Nasal 3.0L Cannula 06/03 1316 100 114/62 Intake & Output 06/04 1600 06/04 0800 06/04 0000 Intake Total 1200 Output Total 900 Balance 300 Intake, IV 500 Intake, Oral 700 Number 1 Bowel Movements Output, Chest 900 Tube Drainage Exam Other Physical Findings: General - Alert and awake HEENT - NCAT Cardiovascular - S1, S2 Lungs - diminished breath sounds bilaterally, left-sided central catheter, 12 Irish indwelling pleural catheter Abdomen - soft, bowel sounds positive, no tenderness Extremities - without edema or cyanosis Results Last 24 Hrs of Lab Results: Laboratory Tests 06/04/16 0830: CBC w Diff NO MAN DIFF REQ, RBC 3.81 L, MCV 82.3, MCH 26.7 L, RDW 24.1 H, MPV 8.4, Gran % 73.0, Lymphocytes % 14.9 L, Monocytes % 5.5, Eosinophils % 6.3 H, Basophils % 0.3, Absolute Granulocytes 5.8, Absolute Lymphocytes 1.2, Absolute Monocytes 0.4, Absolute Eosinophils 0.5, Absolute Basophils 0, PUBS MCHC 32.5 L Impression/Plan Impression/Plan Impression/Plan: Impression Pleural effusion on right, loculated, RLL atelectasis, RML and RUL partial atelectasis. Patchy airspace opacities. MSSA bacteremia, C.diff. Hemorrhagic exudative pleural fluid Plan -Status post TPA will continue lytic therapy and re-image after completion -Hemorrhagic exudative fluid, cytology negative -f/u Dr. Dunbar's recommendations -DVT prophylaxis at all times
--- NOTE | 2016-06-04 11:39 | PN- Thoracic Surgery ---
Subjective Subjective: She reportedly experienced significant right sided pleuritic pain just prior to placing the chest tube to drainage yesterday (after alteplase). She has drained over a liter of serosang drainage since the alteplase was instilled yesterday. Although she initially refused repeat treatment today, she is now agreeable after receiving pain and anxiety medication. Objective Vital Signs and I&Os Vital Signs Date Time Temp Pulse Resp B/P Pulse O2 O2 Flow FiO2 Ox Delivery Rate 06/04 0800 Nasal 4.0L Cannula 06/04 0640 98.4 109 20 110/70 97 Nasal Cannula 06/04 0625 98.4 109 20 110/70 06/04 0000 97 Room Air 06/03 2157 98.7 119 20 108/68 97 Nasal Cannula 06/03 1358 97.6 100 20 120/80 97 Nasal 3.0L Cannula 06/03 1316 100 114/62 Intake & Output 06/04 1600 06/04 0800 06/04 0000 06/03 1600 06/03 0800 06/03 0000 Intake Total 460 5414 598 9304 950 Output Total 275 557 2457 1980 40 Balance -40 300 -1510 -740 910 Intake, IV 260 500 220 260 250 Intake, Oral 200 700 720 980 700 Number 0 1 0 2 Bowel Movements Output, Chest 900 100 130 40 Tube Drainage Output, Urine 500 2350 1850 Assessment/Plan Assessment/Plan 40 year old white female with multiple medical problems and right sided pleural effusion s/p IR catheter and alteplase treatment yesterday repeat alteplase done today @ 11:30 am after given pain & anxiety medication opent to drainage in 4 hours f/u cxr will d/w
[2016-06-04 14:27] VITALS: BP 110/80
--- NOTE | 2016-06-04 15:53 | NUR ---
NURSING NOTE: 1530 UNCLAMPED CHEST TUBE BACK TO REGULAR DRAINAGE AND LOW WALL SUCTION PER SURGICAL PA BARI. WILL CONTINUE TO MONITOR.
--- NOTE | 2016-06-04 20:35 | NUR ---
AT THIS TIME, PT STATED TO THIS RN THAT SHE IS IN 10/10 PAIN AND IS MOANING AND GRIMACING WITH MOVEMENT. BRAKE OPERATOR HELPER PAGED, MOD PAGED. MOD STATED HE WILL LOOK IT UP AND GET BACK TO THIS RN. AT 2099: NO RESPONSE FROM BRAKE OPERATOR HELPER OR MOD. AT 2109: BRAKE OPERATOR HELPER RESPONDED THAT SHE WILL BE UP IN 20 MINUTES TO SEE PT. PT STILL GRAIMCING IN PLACE, STATING SHE WANTS ME TO CALL THE DOCTOR. DR JASSO NOTIFIED OF PTS PAIN LEVEL AT 2114. WILL CONTINUE TO MONITOR.
--- NOTE | 2016-06-04 21:30 | NUR ---
ENGINEERING PRODUCTION WORKER KARINA AND SHAYY UP TO FLOOR. STATED "PT SLEEPING, SO SHE DOESN'T APPEAR TO BE IN ANY PAIN". TOLD THIS RN TO CALL IF PT WAKES UP AND STATES SHE IS IN PAIN. NO NEW ORDERS. WILL CONTINUE TO MONITOR.
--- NOTE | 2016-06-04 22:00 | NUR ---
PT AWAKE AT THIS TIME, CRYING. PT ASKING IF DOCTOR CAME UP TO SEE PT. PT STATED "YOU SHOULDVE WOKEN ME UP TO TALK TO THE DOCTORS". PT STATING HER PAIN IS 10/10. ADMISSIONS RN KARINA IN TO SEE PT AT THIS TIME. WILL CONTINUE TO MONITOR.
[2016-06-04 22:31] VITALS: BP 120/70
--- NOTE | 2016-06-05 06:36 | PN- Housestaff ---
MARLENE FARFAN,MICHEL 06/05/16 0636: Subjective Follow-up For: Hemothorax Bactermia Chronic pain syndrome Subjective: Patient seen and examined at bedside. Pleural cath draning about 700 mL of serosanguinous fluid over the past 24 hours. She reports significant pain in the right sided chest, flank and hip, under control with the current regimen. No new complaints. Denies any palpitations, shortness of breath, fever, chills, nausea, vomiting, abdominal pain, diarrhea, constipation. Review of Systems Constitutional: Reports: see HPI. Objective Last 24 Hrs of Vital Signs/I&O Vital Signs Date Time Temp Pulse Resp B/P Pulse O2 O2 Flow FiO2 Ox Delivery Rate 06/05 1431 112 120/70 06/05 0800 Nasal 4.0L Cannula 06/05 0654 98.4 108 20 120/70 98 Nasal 4.0L Cannula 06/05 0620 109 118/80 06/05 0000 97 Nasal 4.0L Cannula 06/04 2231 97.9 115 20 120/70 98 Nasal Cannula 06/04 2229 115 120/70 06/04 1600 Nasal 4.0L Cannula Intake & Output 06/05 1600 06/05 0800 06/05 0000 Intake Total 540 1060 Output Total 1040 1300 Balance -500 -240 Intake, IV 240 360 Intake, Oral 300 700 Number 0 Bowel Movements Output, Chest 40 600 Tube Drainage Output, Urine 1000 700 Physical Exam General Appearance: Alert, Oriented X3, Cooperative, Mild Distress Other Physical Findings: Skin cellulitis on the right shoulder healing well with scar formation, no oozing or drainage. No signs of infection around the Pro-line insertion site without drainage/erythema/tenderness. 4 x 2 unstageable pressure ulcer in the coccyx - moist yellow slough with periwound edge light purple discolored hue and scant drainage - improving. HEENT: Mucous Membr. moist/pink Cardiovascular: Regular Rate, Normal S1, Normal S2, No Murmurs, Gallops, Rubs Pulmonary: Decreased breath sounds on the right lung. CTA on the left lung. Abdomen: Normal Bowel Sounds, Soft, Severe tenderenss in right flank. MSK: Severe pain in the right hip with limited ROM. Extremities: No Clubbing, No Cyanosis, No Edema Current Medications: Current Medications Sig/Shahla Start time Last Medication Dose Route Stop Time Status Admin Albuterol Sulfate 2 PUF Q4-6 PRN PRN 05/06 0100 AC INH Baclofen 10 MG Q6P PRN 05/08 2030 AC 06/02 PO 2229 Clonidine 0.1 MG Q8 05/08 2200 AC 06/05 PO 1431 Cyclobenzaprine HCl 10 MG AT BEDTIME 05/23 2200 AC 06/04 PO 2229 Dicyclomine HCl 20 MG 4 TIMES/DAY PRN 05/08 2030 AC PO Diphenhydramine HCl 25 MG Q6P PRN 05/19 1200 AC 06/05 PO 1303 Enoxaparin Sodium 40 MG DAILY@1500 06/02 1501 AC 06/05 SC 1425 Ferrous Sulfate 325 MG TID 05/21 1600 AC 06/05 PO 1135 Hydromorphone HCl 2 MG Q3P PRN 06/05 1000 AC 06/05 IV 1425 Hydromorphone HCl 2 MG ONCE ONE 06/05 0445 DC 06/05 IV 06/05 0446 0454 Hydromorphone HCl 1 MG ONCE ONE 06/04 1600 DC 06/04 IV 06/04 1601 1604 Hydromorphone HCl 2 MG ONCE PRN 06/03 2045 DC 06/03 IV 2043 Hydromorphone HCl 2 MG Q4P PRN 05/28 0930 DC 06/05 IV 0814 Hydroxyzine HCl 100 MG Q6-PRN PRN 05/13 1545 AC 05/20 PO 2247 Insulin Aspart 0 AT BEDTIME 05/31 2200 AC 06/04 SC 2229 Insulin Aspart 0 TIDAC 05/31 0800 06/05 SC 1228 Insulin Detemir 50 UNITS BID 06/04 1000 AC 06/05 SC 1135 Lidocaine 1 PAT DAILY 06/01 1000 AC 06/05 EXT 1136 Lorazepam 0.5 MG ONCE ONE 06/05 1330 DC 06/05 IV 06/05 1331 1343 Lorazepam 1 MG ONCE ONE 06/05 0830 DC 06/05 IV 06/05 0831 0846 Lorazepam 1 MG ONE ONE 06/04 2230 DC 06/04 IV 06/04 2231 2254 Lorazepam 0.5 MG ONCE ONE 06/04 1600 DC 06/04 IV 06/04 1601 1604 Magnesium Chloride 64 MG DAILY 05/21 1246 AC 06/05 PO 1135 Oxacillin Sodium 2,000 MG Q4H 05/23 1030 AC 06/05 Sodium Chloride 100 ML IV 06/13 2355 1425 Oxycodone HCl 15 MG Q4 HRS NEEDED PRN 05/28 0900 DC 06/04 PO 0620 Pregabalin 150 MG BID 05/27 1000 AC 06/05 PO 1135 Quetiapine Fumarate 100 MG AT BEDTIME 05/28 2200 AC 06/04 PO 2229 Last 24 Hrs of Lab/Haris Results Last 24 Hrs of Labs/Mics: Laboratory Tests 06/05/16 0630: CBC w Diff NO MAN DIFF REQ, RBC 3.42 L, MCV 82.6, MCH 26.8 L, RDW 24.5 H, MPV 8.5, Gran % 56.5, Lymphocytes % 25.1, Monocytes % 8.6, Eosinophils % 9.2 H, Basophils % 0.6, Absolute Granulocytes 2.7, Absolute Lymphocytes 1.2, Absolute Monocytes 0.4, Absolute Eosinophils 0.4, Absolute Basophils 0, PUBS MCHC 32.5 L Assessment/Plan Assessment: Ms. Urias is 40-year-old female with a past medical history of osteomyelitis of pubis, necrotizing fasciitis of the perineum, hysterectomy, colostomy reversed, left renal abscess, C. difficile colitis,anxiety, depression, chronic pain disorder,chronic back pain,chronic anemia, poorly controlled IDDM 2, DKA, recent fall with minimal displaced pelvic fracture, right shoulder cellulitis s/ p incision and drainage on oxacillin to finish a course of 4 weeks (untill May 12) discharged 04/18/16, presenting with a chief complaint of worsening right pelvic and hip pain. Now found to have pulmonary findings on CTA including a large pleural effusion, concerning for pneumonia, septic embolism and lung abscess. # Right sided pleural effusion - CTA (05/27) shows a new large right pleural effusion with collapse of the right lung and patchy airspace opacities concerning for pneumonia. There are also severeal areas of intraparenchymal hypoattenuation and small volume gas concerning for areas of pulmonary abscess formation. In the left lung there are 6 mm subpleural nodular opacity and several nodular opacities, concerning for septic emboli. Pyelonephritis cannot be excluded. - Pleural catheter placement (05/28) - Drained about 1L of blood-tinged fluid at the time of placement. Pleural fluid analysis - hemorrhagic exudative fluid, pleural cytology & culture - negativ. - Repeat CXR (06/05): right drainage catheter remains in place, unchanged, with persistent right pleural effusion. There is a new small amount of lucency, likely air, along the lateral aspect of the pleural space. Increasing discoid atelectasis at the left base. * 06/05: Drained close to 700L of serosanguinous fluid over the past 24 hours after second TPA injection by surgery yest. Per surgery and Dr. Brown's recommendation the pleural cath will most likely be removed tomorrow after which CT chest without contrast will be done. * ID/Pulm/Thoracic surgery consulted, follow recs * Remove pleural cath when [id number] < 100 mL [address] then [address] chest * Monitor off abx pending above per ID rec * Check CBC daily, trend WBC - WNL * Vitals per protocol, watch for fever * Provide incentive spirometry * Pain control as discussed below # Poor controlled diabetes * Novolog SSI with accuchecks - increase from medium to high dose * Increase Levemir to 50U SQ BID # Pyuria possibly 2/2 fistula UA remakrable for a large amount of leuk esterase and WBC, and moderate epith cells. Ucx was negative. Patient currently has no urinary symptoms but CT abdomen/pelvis (05/27) showed air locules within the bladder and vagina. No h/o recent instrumentation and no evidence of signs/sxs of fistula on physical exam. - CT abd/pelvis with oral/IV/rectal contrast (05/30): No evidence of fistula or any other acute bowel pathology. Drainage catheter in place in the right pleural effusion with multiple foci of gas within the fluid. Areas of consolidation in the right lung concerning for possible atelectasis vs. pneumonia. Gas is seen within the bladder lumen, which is mostly decompressed. # S. aureus bacteremia Patient found to be septic on admission with fever, tachycardia and first set of blood cultures growing staph aureus. Patient was placed on vancomycin in addition to oxacillin on which patient had already been for cellulitis prior the this admission. Patient went into a septic shock on 05/06 which resolved with aggressive IVF resucsitation. Initial blood cultures and a series of repeat bcx' s grew MSSA. TTE and MONICA negative for endocarditis. Blood culture from the Pro line grew GPC before the peripheral line. This raised the suspicion that the source of infection could be from the Pro-line. Blood cultures from 05/12 growing GNR. Pro-line removed on 05/13. Tip of the catheter growing GNR, GPC, and staph coag negative. Repeat blood cultures from 05/13 and 05/15 NGTD - MRI pelvis (05/07): - Bone marrow edema within the pubic rami extending to the right acetabulum compatible with posttraumatic inflammatory change. Soft tissue edema surrounds the rami fractures without evidence of a focal, organized fluid collection in this region. Small right hip joint effusion nonspecific but possibly indicative of early infectious arthritis. New Pro-line placement on 05/20. - WBC scan (05/09): Grossly unremarkable except for moderately intense diffuse lung activity (nonspecific), possibly due to a diffuse inflammatoryprocess in the lungs * ID consulted, follow recs * Continue IV oxacillin, to be discontinued on 06/10/16 * Arrange Pro-line removal outpatient by IR * Follow wound care recs # Chronic pain syndrome Patient carries a hx of chronic pain disorder. Patient does have a fracture in the right hip from a fall a month ago. Ortho saw the patient and recommended conservative management without any further interventions at that time. Ortho was contacted again on 05/13 and no interventions were recommended. * Increase IV Dilaudid 2mg IV Q4P to Q3P * Discontinue Roxicodone to 15mg PO Q8P * Minimize IV narcotics * Pain management was consulted about methadone taper, follow recs # Anemia most likely 2/2 iron deficiency - Resolved Patient's hemoglobin dropped to 7.1 on 05/22. Hgb dropped to 6.9 despite receiving 1 unit of pRBC. She received 2 additional units with an appropriate response. [place] stool test negative. Iron studies significant for low Fe and slightly elevated TIBC. Patient was transfused a total of 3 units on 05/22. Most likely anemia of chronic disease vs. ACBL vs. Fe deficiency. * Cont iron supplementation * Transfuse if Hgb < 7 # Hyponatremia - Resolved Patient presented with a sodium level of 114 (corrected Na 122), consistent with acute on chronic hyponatremia. This is most attributable to pseudohyponatremia in the setting of hyperglycemia, possibly with a component of SIADH/sepsis/poor intake. Patient is currently has no significant neurological symptoms. Serum & urine osmolality WNL. # Mood disorders * Psych consulted, appreciate recs * Cont Seroquel at bedtime as pt finds it helpful # Diet regular diet # Moderate-Severe pain pathway # DVT prophylaxis - Lovenox # Full code Problem List: 1. Pleural effusion 2. Bacteremia 3. Right hip pain Pain Ratin Pain Location: Right hip/flank/chest Pain Goal: Pain 4 or less Pain Plan: Dilaudid 2mg IV Q3P Tomorrow's Labs & Rationales: CBC to monitor for infection and anemia Consulting Request: Consulting Specialty: Pain Orthotic Practitioner Physician: Gerald Dunbar MD Reason for Consult: bacteremia RAFIA FARFAN,OMARIGERALDMonica 06/05/16 1651: Attending MD Review Statement Attending Statement Attending MD Statement: examined this patient, discuss w/resident/PA/NURSE FIRST AID, agreed w/resident/PA/NURSE FIRST AID, reviewed EMR data (avail), discussed with nursing, discussed with case mgmt, amended to note Attending Assessment/Plan: Patient seen and examined. No issues overnight reported by nursing staff. She continues to have drainage from her chest tube. She put out about 750 mL in the past 24 hours. Case was discussed with Dr. Timbo Anne MD. Patient is currently refusing to have further thrombolytic therapy administered. The thoracic surgery service is recommending monitor patient overnight and possibly discontinuing her chest tube tomorrow with surveillance CT scans. Patient continues reports Anxiety on and off and requesting for IV Ativan to be administered as needed. She refuses to comply with recommendations from the psychiatric service.
[2016-06-05 06:54] VITALS: BP 120/70
--- NOTE | 2016-06-05 07:57 | NUR ---
CALLED INTO PT'S ROOM AT 0400, PT CRYING STATING "I'M IN SO MUCH PAIN, CALL THE DR TO GET A ONE TIME ORDER OF DILAUDID". LAST PRN DILAUDID IV GIVEN AT 0300, PT NOT DUE TILL 0700, PAGED KARINA CASTLE MD, 2MG IV DILAUDID ORDERED.
[2016-06-05 08:18] LABS: ABSOLUTE BASOPHIL COUNT 0 /CUMM (0.0-0.2); ABSOLUTE EOSINOPHIL COUNT 0.4 /CUMM (0.0-0.7); ABSOLUTE GRANULOCYTE CT 2.7 /CUMM (1.4-6.5); ABSOLUTE LYMPH COUNT 1.2 /CUMM (1.2-3.4); ABSOLUTE MONOCYTE COUNT 0.4 /CUMM (0.10-0.60); BASOPHIL % 0.6 % (0.0-2.0); EOSINOPHIL % 9.2 % (0-5); GRANULOCYTE % 56.5 % (42.2-75.2); HEMATOCRIT 28.2 % (37-47); MEAN CORPUSCULAR HGB 26.8 PG (27.0-31.0); MEAN CORPUSCULAR HGB CONC 32.5 G/DL (33.0-37.0); MEAN CORPUSCULAR VOLUME 82.6 FL (81.0-99.0); MEAN PLATELET VOLUME 8.5 FL (7.4-10.4); PLATELET COUNT 194 /CUMM (130-400); RBC DISTRIBUTION WIDTH 24.5 % (11.5-14.5); RED BLOOD CELL CT 3.42 /CUMM (4.20-5.40); WHITE BLOOD CELL COUNT 4.9 /CUMM (4.8-10.8)
--- NOTE | 2016-06-05 12:21 | PN- Pulmonary ---
Subjective HPI/Critical Care Issues: pt seen and examined had significant discomfort with lytics hesitant in pursuing lytics at this point will get a cxr and if improvement plan for removal of cather with a further plan to rescan the chest. Objective Current Medications: Current Medications Sig/Shahla Start time Last Medication Dose Route Stop Time Status Admin Albuterol Sulfate 2 PUF Q4-6 PRN PRN 05/06 0100 AC INH Baclofen 10 MG Q6P PRN 05/08 2030 AC 06/02 PO 2229 Clonidine 0.1 MG Q8 05/08 2200 AC 06/05 PO 0620 Cyclobenzaprine HCl 10 MG AT BEDTIME 05/23 2200 AC 06/04 PO 2229 Dicyclomine HCl 20 MG 4 TIMES/DAY PRN 05/08 2030 AC PO Diphenhydramine HCl 25 MG Q6P PRN 05/19 1200 AC 06/05 PO 0619 Enoxaparin Sodium 40 MG DAILY@1500 06/02 1501 AC 06/04 SC 1314 Ferrous Sulfate 325 MG TID 05/21 1600 AC 06/05 PO 1135 Hydromorphone HCl 2 MG Q3P PRN 06/05 1000 AC 06/05 IV 1135 Hydromorphone HCl 2 MG ONCE ONE 06/05 0445 DC 06/05 IV 06/05 0446 0454 Hydromorphone HCl 1 MG ONCE ONE 06/04 1600 DC 06/04 IV 06/04 1601 1604 Hydromorphone HCl 1 MG ONCE ONE 06/04 1315 DC 06/04 IV 06/04 1316 1314 Hydromorphone HCl 2 MG ONCE PRN 06/03 2045 DC 06/03 IV 2043 Hydromorphone HCl 2 MG Q4P PRN 05/28 0930 DC 06/05 IV 0814 Hydroxyzine HCl 100 MG Q6-PRN PRN 05/13 1545 AC 05/20 PO 2247 Insulin Aspart 0 AT BEDTIME 05/31 2200 AC 06/04 SC 2229 Insulin Aspart 0 TIDAC 05/31 0800 AC 06/05 SC 0814 Insulin Detemir 50 UNITS BID 06/04 1000 AC 06/05 SC 1135 Lidocaine 1 PAT DAILY 06/01 1000 AC 06/05 EXT 1136 Lorazepam 1 MG ONCE ONE 06/05 0830 DC 06/05 IV 06/05 0831 0846 Lorazepam 1 MG ONE ONE 06/04 2230 DC 06/04 IV 06/04 2231 2254 Lorazepam 0.5 MG ONCE ONE 06/04 1600 DC 06/04 IV 06/04 1601 1604 Magnesium Chloride 64 MG DAILY 05/21 1246 AC 06/05 PO 1135 Oxacillin Sodium 2,000 MG Q4H 05/23 1030 AC 06/05 Sodium Chloride 100 ML IV 06/13 2355 1135 Oxycodone HCl 15 MG Q4 HRS NEEDED PRN 05/28 0900 DC 06/04 PO 0620 Pregabalin 150 MG BID 05/27 1000 AC 06/05 PO 1135 Quetiapine Fumarate 100 MG AT BEDTIME 05/28 2200 AC 06/04 PO 2229 Vital Signs & I&O Last 24 Hrs of Vitals and I&O: Vital Signs Date Time Temp Pulse Resp B/P Pulse O2 O2 Flow FiO2 Ox Delivery Rate 06/05 0800 Nasal 4.0L Cannula 06/05 0654 98.4 108 20 120/70 98 Nasal 4.0L Cannula 06/05 0620 109 118/80 06/05 0000 97 Nasal 4.0L Cannula 06/04 2231 97.9 115 20 120/70 98 Nasal Cannula 06/04 2229 115 120/70 06/04 1600 Nasal 4.0L Cannula 06/04 1427 97.9 114 20 110/80 97 Nasal 4.0L Cannula 06/04 1314 109 110/70 Intake & Output 06/05 1600 06/05 0800 06/05 0000 Intake Total 540 1060 Output Total 1040 1300 Balance -500 -240 Intake, IV 240 360 Intake, Oral 300 700 Number 0 Bowel Movements Output, Chest 40 600 Tube Drainage Output, Urine 1000 700 Exam Other Physical Findings: General - Alert and awake HEENT - NCAT Cardiovascular - S1, S2 Lungs - diminished breath sounds bilaterally, left-sided central catheter, 12 Pashto indwelling pleural catheter Abdomen - soft, bowel sounds positive, no tenderness Extremities - without edema or cyanosis Results Last 24 Hrs of Lab Results: Laboratory Tests 06/05/16 0630: CBC w Diff NO MAN DIFF REQ, RBC 3.42 L, MCV 82.6, MCH 26.8 L, RDW 24.5 H, MPV 8.5, Gran % 56.5, Lymphocytes % 25.1, Monocytes % 8.6, Eosinophils % 9.2 H, Basophils % 0.6, Absolute Granulocytes 2.7, Absolute Lymphocytes 1.2, Absolute Monocytes 0.4, Absolute Eosinophils 0.4, Absolute Basophils 0, PUBS MCHC 32.5 L Impression/Plan Impression/Plan Impression/Plan: Impression Pleural effusion on right, loculated, RLL atelectasis, RML and RUL partial atelectasis. Patchy airspace opacities. MSSA bacteremia, C.diff. Hemorrhagic exudative pleural fluid Plan -Status post TPA, cxr today, pt declines lytic therapy at this time, will remove catheter if cxr improved, will need further re-imaging afterwards -Hemorrhagic exudative fluid, cytology negative -DVT prophylaxis at all times
--- NOTE | 2016-06-05 13:56 | RADIOLOGY REPORT ---
EXAMINATION: XR PORTABLE CHEST CLINICAL INFORMATION: Pleural effusion. COMPARISON: Multiple prior examinations most recent chest 06/01/2016. TECHNIQUE: Portable view of the chest was obtained. FINDINGS: Right pleural drainage catheter remains in place at the right base. There is a persistent right pleural effusion. There appears to be some lucency, likely air, noted within the pleural space laterally in the area of pleural density\E\fluid. This is new compared to prior. The lung volumes are decreased bilaterally. There is slight increased linear opacity at the left base compatible with worsening atelectasis. A central venous catheter remains in place with the tip in the region of the SVC, unchanged. Chest otherwise unchanged IMPRESSION: 1. Right drainage catheter remains in place, unchanged, with persistent right pleural effusion. There is a new small amount of lucency, likely air, along the lateral aspect of the pleural space. 2. Increasing discoid atelectasis at the left base.
[2016-06-05 15:23] VITALS: BP 120/70
--- NOTE | 2016-06-05 17:49 | PN- Infect Dx ---
Subjective Subjective: Afebrile. She continues to complain pain at the site of the right pleural catheter. Objective Last 24 Hrs of Vital Signs/I&O Vital Signs Date Time Temp Pulse Resp B/P Pulse O2 O2 Flow FiO2 Ox Delivery Rate 06/05 1523 98.2 112 20 120/70 99 06/05 1431 112 120/70 06/05 0800 Nasal 4.0L Cannula 06/05 0654 98.4 108 20 120/70 98 Nasal 4.0L Cannula 06/05 0620 109 118/80 06/05 0000 97 Nasal 4.0L Cannula 06/04 2231 97.9 115 20 120/70 98 Nasal Cannula 06/04 2229 115 120/70 Intake & Output 06/05 1600 06/05 0800 06/05 0000 Intake Total 885 535 2939 Output Total 575 1040 1300 Balance 125 -500 -240 Intake, IV 200 240 360 Intake, Oral 500 300 700 Number 0 Bowel Movements Output, Chest 40 600 Tube Drainage Output, Urine 575 1000 700 Physical Exam Other Physical Findings: She appears comfortable in no acute distress Chest right pleural catheter bloody drainage, with 750 mL out yesterday and 40 mL overnight; Pro-Line catheter in the left upper chest with no inflammation at the site Results Last 24 Hours of Lab Results: Laboratory Tests 06/05 0630 Hematology CBC w Diff NO MAN DIFF REQ WBC (4.8 - 10.8 /CUMM) 4.9 RBC (4.20 - 5.40 /CUMM) 3.42 L Hgb (12.0 - 16.0 G/DL) 9.2 L Hct (37 - 47 %) 28.2 L MCV (81.0 - 99.0 FL) 82.6 MCH (27.0 - 31.0 PG) 26.8 L RDW (11.5 - 14.5 %) 24.5 H Plt Count (130 - 400 /CUMM) 194 MPV (7.4 - 10.4 FL) 8.5 Gran % (42.2 - 75.2 %) 56.5 Lymphocytes % (20.5 - 51.1 %) 25.1 Monocytes % (1.7 - 9.3 %) 8.6 Eosinophils % (0 - 5 %) 9.2 H Basophils % (0.0 - 2.0 %) 0.6 Absolute Granulocytes (1.4 - 6.5 /CUMM) 2.7 Absolute Lymphocytes (1.2 - 3.4 /CUMM) 1.2 Absolute Monocytes (0.10 - 0.60 /CUMM) 0.4 Absolute Eosinophils (0.0 - 0.7 /CUMM) 0.4 Absolute Basophils (0.0 - 0.2 /CUMM) 0 PUBS MCHC (33.0 - 37.0 G/DL) 32.5 L Last 24 Hours of Haris Results: No recent cultures Recent Imaging Studies: Chest x-ray June 05 persistent right pleural effusion with some lucency, likely air, within the pleural space Assessment/Plan Impression: Overall stable status post placement of a pleural catheter for a right-sided hemorrhagic pleural effusion 8 days ago, with cytology and culture negative. She was given lytic therapy twice, with good results, though she has refused further treatments and her drainage does appear to have decreased today, possibly related to this. She remains afebrile with white blood cell count normal on Oxacillin now Day 52 of treatment for recurrent MSSA sepsis, felt most likely secondary to the Pro-Line catheter, which was removed 23 days ago, with her last positive blood cultures for Staph aureus 27 days ago and with blood cultures obtained 26 days ago negative for Staph aureus. The significance of the lucency within the right pleural space seen on the recent chest x-ray is unclear. Suggestion: 1. Further evaluation/management of her pleural catheter per Pulmonary 2. Continue Oxacillin
--- NOTE | 2016-06-05 17:50 | PN- Psychiatry ---
Assessment/Plan Impression: Identifying Info: 40-year-old single female well known to this service presents to [facility] emergency department on May 06 with severe right hip pain. She was hyperglycemic and hypotensive on admission was transferred to critical care unit now on 2NA being treated for bacteremia and pulmonary abscess. SUBJECTIVE Patient endorses high anxiety and pain despite IV medication. States she understands the need for her thrombolytics but "they feel like knives when they are coming out of me." Brief ROS Gait: Impaired but improved. Patient ambulated unit independently with a walker today Sleep: Endorses quality sleep last night Appetite: Poor today OBJECTIVE Mental Status Exam Presentation/Appearance: Cooperative with evaluation. Hospital garb. Lying in bed Orientation: Oriented x4 Sensorium: Somnolent Eye contact: Appropriate Affect: Somewhat blunted but congruent with stated mood Mood: Dysphoric, anxious Depression: Endorses Anxiety: Endorses Thought Content: - Denies SI/HI, AH/VH, PI. States and also believes they will not kill themselves. - Denies Hopeless/Helpless Thoughts Thought Process: Linear and goal directed with continued perseveration on medications Speech: Normal tone and rate Judgment: Fair Insight: Fair Cognition: Memory: Grossly intact Attention/Concentration: Grossly intact MMSE: Did not assess ASSESSMENT 40 yo SCF with pain and high medication tolerance reports continued distress but some relief with IV Ativan. 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 Consider increasing evening Seroquel dose to 200 mg for increased mood stabilization and decreased anxiety. 2. Pt to call [facility] for intake appointment post d/c from [facility]. 3. Continue to monitor blood glucose closely. Patient has tolerated Seroquel past but can increase blood sugars and lipids. Thank you for including psychiatry in this case we'll continue to follow. Yrn Morillo APRN, pager [phone] Subjective Subjective: .
[2016-06-05 22:40] VITALS: BP 112/60
--- NOTE | 2016-06-05 23:28 | NUR ---
LATE ENTRY- THIS NURSE CHANGED CENTRAL LINE DRESSING TO PT'S LCW PROLINE APPROX 2130-PT REQUESTED STATING "ITS LEAKING CAN YOU CHANGE IT" SMALL AMOUNT OF BROWISH-YELLOWISH FLUID NOTED AT SITE WHEN OLD DRESSING REMOVED. OLD BIOPATCH SATURATED WITH BROWN FLUID. SOME REDNESS NOTED TO SKIN AREA. DRESSING CHANGED PER PROTOCOL. BOTTLE HOP MADE AWARE
--- NOTE | 2016-06-06 03:38 | PN- Housestaff ---
MARLENE FARFAN,MICHEL 06/06/16 0338: Subjective Follow-up For: Hemothorax Bactermia Chronic pain syndrome Subjective: Patient seen and examined at bedside. Pleural cath draning about 50 mL of serosanguinous fluid over the past 24 hours. She reports an improvement pain in the right sided chest, flank and hip, under control with the current regimen. She says her Pro-line is "leaky" although it appears to be intact with no active leakage when the nursing staff and I checked. Denies any palpitations, shortness of breath, fever, chills, nausea, vomiting, abdominal pain, diarrhea, constipation. Review of Systems Constitutional: Reports: see HPI. Objective Last 24 Hrs of Vital Signs/I&O Vital Signs Date Time Temp Pulse Resp B/P Pulse O2 O2 Flow FiO2 Ox Delivery Rate 06/06 0640 97.6 103 20 120/70 98 Nasal 3.0L Cannula 06/06 0612 102 120/70 06/06 0000 Nasal 3.0L Cannula 06/05 2240 97.6 106 20 112/60 98 Nasal Cannula 06/05 2024 Nasal 5.0L Cannula 06/05 1523 98.2 112 20 120/70 99 06/05 1431 112 120/70 Intake & Output 06/06 1600 06/06 0800 06/06 0000 Intake Total 560 1050 Output Total 1825 0 Balance -1265 1050 Intake, IV 240 250 Intake, Oral 320 800 Number 0 Bowel Movements Output, Chest 25 0 Tube Drainage Output, Urine 1800 Physical Exam General Appearance: Alert, Oriented X3, Cooperative, No Acute Distress Current Medications: Current Medications Sig/Shahla Start time Last Medication Dose Route Stop Time Status Admin Albuterol Sulfate 2 PUF Q4-6 PRN PRN 05/06 0100 AC INH Baclofen 10 MG Q6P PRN 05/08 2030 AC 06/02 PO 2229 Clonidine 0.1 MG Q8 05/08 2200 AC 06/06 PO 0612 Cyclobenzaprine HCl 10 MG AT BEDTIME 05/23 2199 AC 06/05 PO 2017 Dicyclomine HCl 20 MG 4 TIMES/DAY PRN 05/08 2030 AC PO Diphenhydramine HCl 25 MG Q6P PRN 05/19 1200 AC 06/06 PO 0212 Enoxaparin Sodium 40 MG DAILY@1500 06/02 1501 AC 06/05 SC 1425 Ferrous Sulfate 325 MG TID 05/21 1600 AC 06/06 PO 0940 Hydromorphone HCl 1 MG ONCE ONE 06/06 1300 DC IV 06/06 1301 Hydromorphone HCl 2 MG Q3P PRN 06/05 1000 AC 06/06 IV 1058 Hydroxyzine HCl 100 MG Q6-PRN PRN 05/13 1545 AC 05/20 PO 2247 Insulin Aspart 0 AT BEDTIME 05/31 2200 AC 06/05 SC 2050 Insulin Aspart 0 TIDAC 05/31 0800 AC 06/06 SC 1231 Insulin Detemir 55 UNITS BID 06/06 2200 AC AL Insulin Detemir 60 UNITS BID 06/06 1000 DC 06/06 SC 0940 Insulin Detemir 50 UNITS BID 06/04 1000 DC 06/05 SC 2049 Lidocaine 1 PAT DAILY 06/01 1000 AC 06/06 EXT 0940 Lorazepam 0.5 MG ONCE ONE 06/06 0900 DC 06/06 IV 06/06 0901 0937 Magnesium Chloride 64 MG DAILY 05/21 1246 AC 06/06 PO 0940 Oxacillin Sodium 2,000 MG Q4H 05/23 1030 AC 06/06 Sodium Chloride 100 ML IV 06/13 2355 1049 Pregabalin 150 MG BID 05/27 1000 AC 06/06 PO 0941 Quetiapine Fumarate 100 MG AT BEDTIME 05/28 220 AC 06/05 PO 2018 Last 24 Hrs of Lab/Haris Results Last 24 Hrs of Labs/Mics: Laboratory Tests 06/06/16 0615: Anion Gap 5, Estimated GFR > 60, BUN/Creatinine Ratio 26.7 H, Magnesium 1.7, CBC w Diff NO MAN DIFF REQ, RBC 3.33 L, MCV 82.4, MCH 27.1, RDW 24.3 H, MPV 8.1, Gran % 57.0, Lymphocytes % 23.1, Monocytes % 8.5, Eosinophils % 10.8 H, Basophils % 0.6, Absolute Granulocytes 2.7, Absolute Lymphocytes 1.1 L, Absolute Monocytes 0.4, Absolute Eosinophils 0.5, Absolute Basophils 0, PUBS MCHC 32.9 L Assessment/Plan Assessment: Ms. Urias is 40-year-old female with a past medical history of osteomyelitis of pubis, necrotizing fasciitis of the perineum, hysterectomy, colostomy reversed, left renal abscess, C. difficile colitis,anxiety, depression, chronic pain disorder,chronic back pain,chronic anemia, poorly controlled IDDM 2, DKA, recent fall with minimal displaced pelvic fracture, right shoulder cellulitis s/ p incision and drainage on oxacillin to finish a course of 4 weeks (untill May 12) discharged 04/18/16, presenting with a chief complaint of worsening right pelvic and hip pain. Now found to have pulmonary findings on CTA including a large pleural effusion, concerning for pneumonia, septic embolism and lung abscess. # Right sided pleural effusion - CTA (05/27) shows a new large right pleural effusion with collapse of the right lung and patchy airspace opacities concerning for pneumonia. There are also severeal areas of intraparenchymal hypoattenuation and small volume gas concerning for areas of pulmonary abscess formation. In the left lung there are 6 mm subpleural nodular opacity and several nodular opacities, concerning for septic emboli. Pyelonephritis cannot be excluded. - Pleural catheter placement (05/28) - Drained about 1L of blood-tinged fluid at the time of placement. Pleural fluid analysis - hemorrhagic exudative fluid, pleural cytology & culture - negativ. - Repeat CXR (06/05): right drainage catheter remains in place, unchanged, with persistent right pleural effusion. There is a new small amount of lucency, likely air, along the lateral aspect of the pleural space. Increasing discoid atelectasis at the left base. * 06/06: Drained about 50mL of serosanguinous fluid over the past 24 hours. She received a tPA injection for 2 days but has been refusing it since yest. improvement. * Repeat CT chest w/o contrast, remove pleural cath if CT chest shows improvement per pulm/surgery recs. * ID/Pulm/Thoracic surgery consulted, follow recs * Monitor off abx pending above per ID rec * Check CBC daily, trend WBC - WNL * Vitals per protocol, watch for fever * Encourage incentive spirometry use * Pain control as discussed below # S. aureus bacteremia Patient found to be septic on admission with fever, tachycardia and first set of blood cultures growing staph aureus. Patient was placed on vancomycin in addition to oxacillin on which patient had already been for cellulitis prior the this admission. Patient went into a septic shock on 05/06 which resolved with aggressive IVF resucsitation. Initial blood cultures and a series of repeat bcx' s grew MSSA. TTE and MONICA negative for endocarditis. Blood culture from the Pro line grew GPC before the peripheral line. This raised the suspicion that the source of infection could be from the Pro-line. Blood cultures from 05/12 growing GNR. Pro-line removed on 05/13. Tip of the catheter growing GNR, GPC, and staph coag negative. Repeat blood cultures from 05/13 and 05/15 NGTD - MRI pelvis (05/07): - Bone marrow edema within the pubic rami extending to the right acetabulum compatible with posttraumatic inflammatory change. Soft tissue edema surrounds the rami fractures without evidence of a focal, organized fluid collection in this region. Small right hip joint effusion nonspecific but possibly indicative of early infectious arthritis. New Pro-line placement on 05/20. - WBC scan (05/09): Grossly unremarkable except for moderately intense diffuse lung activity (nonspecific), possibly due to a diffuse inflammatoryprocess in the lungs * ID consulted, follow recs * Continue IV oxacillin, to be discontinued on 06/10/16 * Arrange Pro-line removal outpatient by IR - per IR dept, patient needs to follow up with a PCP in order to set up the appointment for Pro-line removal outpatient. An appointment was scheduled with Dr. Espinosa on 06/09/16 at 1:15PM. IR dept and Dr. Espinosa's office both notified about the need for the Pro-line to be removed on 06/10. * Follow wound care recs # Poor controlled diabetes * Increase Levemir to 55U SQ BID * Novolog SSI with accuchecks - decrease back to medium dose SSI # Pyuria possibly 2/2 fistula UA remakrable for a large amount of leuk esterase and WBC, and moderate epith cells. Ucx was negative. Patient currently has no urinary symptoms but CT abdomen/pelvis (05/27) showed air locules within the bladder and vagina. No h/o recent instrumentation and no evidence of signs/sxs of fistula on physical exam. - CT abd/pelvis with oral/IV/rectal contrast (05/30): No evidence of fistula or any other acute bowel pathology. Drainage catheter in place in the right pleural effusion with multiple foci of gas within the fluid. Areas of consolidation in the right lung concerning for possible atelectasis vs. pneumonia. Gas is seen within the bladder lumen, which is mostly decompressed. # Chronic pain syndrome Patient carries a hx of chronic pain disorder. Patient does have a fracture in the right hip from a fall a month ago. Ortho saw the patient and recommended conservative management without any further interventions at that time. Ortho was contacted again on 05/13 and no interventions were recommended. * Increase IV Dilaudid 2mg IV Q4P to Q3P * Discontinue Roxicodone to 15mg PO Q8P * Minimize IV narcotics * Pain management was consulted about methadone taper, follow recs # Anemia most likely 2/2 iron deficiency - Resolved Patient's hemoglobin dropped to 7.1 on 05/22. Hgb dropped to 6.9 despite receiving 1 unit of pRBC. She received 2 additional units with an appropriate response. [place] stool test negative. Iron studies significant for low Fe and slightly elevated TIBC. Patient was transfused a total of 3 units on 05/22. Most likely anemia of chronic disease vs. ACBL vs. Fe deficiency. * Cont iron supplementation * Transfuse if Hgb < 7 # Hyponatremia - Resolved Patient presented with a sodium level of 114 (corrected Na 122), consistent with acute on chronic hyponatremia. This is most attributable to pseudohyponatremia in the setting of hyperglycemia, possibly with a component of SIADH/sepsis/poor intake. Patient is currently has no significant neurological symptoms. Serum & urine osmolality WNL. # Mood disorders * Psych consulted, appreciate recs * Cont Seroquel at bedtime as pt finds it helpful # Diet regular diet # Moderate-Severe pain pathway # DVT prophylaxis - Lovenox # Full code Problem List: 1. Pleural effusion 2. Bacteremia 3. Right hip pain Pain Ratin Pain Location: Left hip/flank Pain Goal: Pain 4 or less Pain Plan: Severe pathway Tomorrow's Labs & Rationales: CBC to monitor H/H for anemia Consulting Request: Consulting Specialty: Pain Dat Instructor Physician: Gerald Dunbar MD Reason for Consult: bacteremia RAFIA FARFAN,ERIBERTO 06/06/16 1303: Attending MD Review Statement Attending Statement Attending MD Statement: examined this patient, discuss w/resident/PA/CONFECTIONERY COOKER, agreed w/resident/PA/CONFECTIONERY COOKER, reviewed EMR data (avail), discussed with nursing, discussed with case mgmt, amended to note Attending Assessment/Plan: Patient seen and examined. She ambulates around the unit freely with the aid of walker. When observed she is resting comfortably and not in acute distress however when she is engaged she becomes very tearful complaining of pain requesting to have intravenous analgesia. I did discuss with the patient about transitioning to oral analgesics ambulating without her regimen however she remains adamant receiving only IV pain medications. She again becomes very tearful. She refuses to follow recommendations of the psychiatric service. I have discussed the case further with the psychiatric team and their recommendations are for patient to follow-up in the outpatient setting as she does not appear willing to follow any inpatient medication recommendations. We also concerned that her prolactin was leaking. On evaluation it is intact. There is no surrounding erythema. There is no discharge or leakage. She does have allergies to the adhesive and this needs to be changed regularly. She remains afebrile and hemodynamically stable. She has no evidence of an acute infection at present. She will be completing her antibiotic dose early next week. Her blood glucose levels have been trending on the high side since starting the patient on Seroquel. This is a known side effect. That being said her hemoglobin A1c at home is 11 suggesting poor glucose control. We are titrating up her Levemir slowly with close monitoring of her glucose levels. She is scheduled to have a chest CT today prior to discontinuation of her chest tube. Once a chest tube is discontinued she will be monitored over the weekend and repeat imaged to determining the extent of fluid reaccumulation. After this if stable she may be discharged during the week after completion of her antibiotic regimen. She is not willing to transition to oral analgesics prior to then.
[2016-06-06 06:40] VITALS: BP 120/70
[2016-06-06 08:08] LABS: ABSOLUTE BASOPHIL COUNT 0 /CUMM (0.0-0.2); ABSOLUTE EOSINOPHIL COUNT 0.5 /CUMM (0.0-0.7); ABSOLUTE GRANULOCYTE CT 2.7 /CUMM (1.4-6.5); ABSOLUTE LYMPH COUNT 1.1 /CUMM (1.2-3.4); ABSOLUTE MONOCYTE COUNT 0.4 /CUMM (0.10-0.60); BASOPHIL % 0.6 % (0.0-2.0); EOSINOPHIL % 10.8 % (0-5); HEMATOCRIT 27.5 % (37-47); MEAN CORPUSCULAR HGB 27.1 PG (27.0-31.0); MEAN CORPUSCULAR HGB CONC 32.9 G/DL (33.0-37.0); MEAN CORPUSCULAR VOLUME 82.4 FL (81.0-99.0); MEAN PLATELET VOLUME 8.1 FL (7.4-10.4); PLATELET COUNT 196 /CUMM (130-400); RBC DISTRIBUTION WIDTH 24.3 % (11.5-14.5); RED BLOOD CELL CT 3.33 /CUMM (4.20-5.40); WHITE BLOOD CELL COUNT 4.8 /CUMM (4.8-10.8)
--- NOTE | 2016-06-06 10:47 | PN- Pulmonary ---
Subjective HPI/Critical Care Issues: Patient seen and examined. No chest pain, at respiratory baseline. No nausea, vomiting, diarrhea or constipation. Afebrile and hemodynamically stable. Objective Current Medications: Current Medications Sig/Shahla Start time Last Medication Dose Route Stop Time Status Admin Albuterol Sulfate 2 PUF Q4-6 PRN PRN 05/06 0100 AC INH Baclofen 10 MG Q6P PRN 05/08 2030 AC 06/02 PO 2229 Clonidine 0.1 MG Q8 05/08 2200 AC 06/06 PO 0612 Cyclobenzaprine HCl 10 MG AT BEDTIME 05/23 2200 AC 06/05 PO 2017 Dicyclomine HCl 20 MG 4 TIMES/DAY PRN 05/08 2030 AC PO Diphenhydramine HCl 25 MG Q6P PRN 05/19 1200 AC 06/06 PO 0212 Enoxaparin Sodium 40 MG DAILY@1500 06/02 1501 AC 06/05 SC 1425 Ferrous Sulfate 325 MG TID 05/21 1600 AC 06/06 PO 0940 Hydromorphone HCl 2 MG Q3P PRN 06/05 1000 AC 06/06 IV 0801 Hydroxyzine HCl 100 MG Q6-PRN PRN 05/13 1545 AC 05/20 PO 2247 Insulin Aspart 0 AT BEDTIME 05/31 2200 AC 06/05 SC 2050 Insulin Aspart 0 TIDAC 05/31 0800 AC 06/05 SC 1729 Insulin Detemir 55 UNITS BID 06/06 2200 AC SC Insulin Detemir 60 UNITS BID 06/06 1000 DC 06/06 SC 0940 Insulin Detemir 50 UNITS BID 06/04 1000 DC 06/05 SC 2049 Lidocaine 1 PAT DAILY 06/01 1000 AC 06/06 EXT 0940 Lorazepam 0.5 MG ONCE ONE 06/06 0900 DC 06/06 IV 06/06 0901 0937 Lorazepam 0.5 MG ONCE ONE 06/05 1330 DC 06/05 IV 06/05 1331 1343 Magnesium Chloride 64 MG DAILY 05/21 1246 AC 06/06 PO 0940 Oxacillin Sodium 2,000 MG Q4H 05/23 1030 AC 06/06 Sodium Chloride 100 ML IV 06/13 2355 0612 Pregabalin 150 MG BID 05/27 1000 AC 06/06 PO 0941 Quetiapine Fumarate 100 MG AT BEDTIME 05/28 2200 AC 06/05 PO 2018 Vital Signs & I&O Last 24 Hrs of Vitals and I&O: Vital Signs Date Time Temp Pulse Resp B/P Pulse O2 O2 Flow FiO2 Ox Delivery Rate 06/06 0640 97.6 103 20 120/70 98 Nasal 3.0L Cannula 06/06 0612 102 120/70 06/06 0000 Nasal 3.0L Cannula 06/05 2240 97.6 106 20 112/60 98 Nasal Cannula 06/05 2024 Nasal 5.0L Cannula 06/05 1523 98.2 112 20 120/70 99 06/05 1431 112 120/70 Intake & Output 06/06 1600 06/06 0800 06/06 0000 Intake Total 560 1050 Output Total 1825 0 Balance -1265 1050 Intake, IV 240 250 Intake, Oral 320 800 Number 0 Bowel Movements Output, Chest 25 0 Tube Drainage Output, Urine 1800 Exam Other Physical Findings: General - Alert and awake HEENT - NCAT Cardiovascular - S1, S2 Lungs - diminished breath sounds bilaterally, left-sided central catheter, 12 [place] indwelling pleural catheter Abdomen - soft, bowel sounds positive, no tenderness Extremities - without edema or cyanosis Results Last 24 Hrs of Lab Results: Laboratory Tests 06/06/1615: Anion Gap 5, Estimated GFR > 60, BUN/Creatinine Ratio 26.7 H, Magnesium 1.7, CBC w Diff NO MAN DIFF REQ, RBC 3.33 L, MCV 82.4, MCH 27.1, RDW 24.3 H, MPV 8.1, Gran % 57.0, Lymphocytes % 23.1, Monocytes % 8.5, Eosinophils % 10.8 H, Basophils % 0.6, Absolute Granulocytes 2.7, Absolute Lymphocytes 1.1 L, Absolute Monocytes 0.4, Absolute Eosinophils 0.5, Absolute Basophils 0, PUBS MCHC 32.9 L Impression/Plan Impression/Plan Impression/Plan: Impression Pleural effusion on right, loculated, RLL atelectasis, RML and RUL partial atelectasis. Patchy airspace opacities. MSSA bacteremia, C.diff. Hemorrhagic exudative pleural fluid Plan -s/p tpa, declines further tpa tx -get CT chest today to evaluate previous ?gas formation and assess fluid, if improvement, will consider CT removal -Hemorrhagic exudative fluid, cytology negative -DVT prophylaxis at all times
[2016-06-06 14:25] VITALS: BP 120/90
--- NOTE | 2016-06-06 14:49 | Event Note ---
Event Note Event Note: Right chest pigtail catheter dc'd bedside. Patient tolerated well. Site dressed with occlusive dressing of xeroform and cover bandages. Patient stable post pull.
--- NOTE | 2016-06-06 15:01 | CT SCAN REPORT ---
EXAMINATION: CT CHEST WITHOUT CONTRAST CLINICAL INFORMATION: Chest pain, persisting hemothorax and pleural effusion. COMPARISON: 05/27/2016, CTA 05/26/2016. 04/11/2016. TECHNIQUE: Multidetector volumetric CT imaging of the chest was done. Axial MIP volume rendering provided. Sagittal and coronal reformatted images were obtained. DLP: 740 mGy-cm. FINDINGS: Previously identified right-sided drainage tube has been removed. There is been a dramatic decrease in the large right-sided pleural effusion since the previous examination with only a small residual right-sided pleural effusion. There is a moderate-sized loculated hydropneumothorax identified posteriorly and inferiorly just above the pleural catheter. The air is likely iatrogenic given the indwelling chest drain. Clinical correlation recommended. There is persistent collapse involving a large portion of the right lower lobe. The majority of the superior segment appears reexpanded. There is a rounded density abutting the right lateral chest wall which likely a focus of rounded atelectasis extending to the minor fissure. Peripheral groundglass opacity identified anteriorly in the right upper lobe laterally appears largely unchanged from the 04/06/2016 exam. There is some fluid along the major fissure. There are some scattered pulmonary nodules bilaterally likely related to the patient's acute process, none of these were definitively identified on the 04/11/2016 exam. Soft tissue stranding involving the upper lateral right hemithorax posteriorly appears improved. There is a left IJ central venous catheter with its tip in the lower SVC. Mediastinum is otherwise unremarkable. Imaging through the upper abdomen demonstrates persistent mild splenomegaly,: Is stool-filled, stomach debris filled. Osseous structures demonstrate no suspicious findings appear IMPRESSION: 1. Decreasing pleural effusion with a chest drain in place. 2. There is a small to moderate size hydropneumothorax. Iatrogenic versus infectious. Clinical correlation recommended. 3. Majority of the right lower lobe with the exception of the superior segment remain collapsed. Otherwise findings appear largely unchanged. Left lung remains relatively clear.
--- NOTE | 2016-06-06 16:06 | NUR ---
CHEST TUBE REMOVED AT 1435 BY SURGICAL ADI LANGLEY.
[2016-06-06] MEDS ORDERED: LEVEMIR100 UNIT/1 SC (21:48)
[2016-06-06 22:19] VITALS: BP 148/88
[2016-06-07 07:14] VITALS: BP 130/76
--- NOTE | 2016-06-07 07:59 | PN- Housestaff ---
See Addendum Subjective Follow-up For: Hemothorax Bactermia Chronic pain syndrome Subjective: Patient seen and examined at bedside this AM. She reports she is feeling better, though she occasionally becomes anxious and appreciates IV ativan. She also reports mild splinting secondary to pain at site of catheter removal, though this is getting better as she uses her incentive spirometer. Review of Systems Constitutional: Denies: chills, malaise. EENTM: Denies: visual changes, nasal congestion. Cardiovascular: Denies: chest pain, palpitations. Respiratory: Reports: short of breath (Mild, improving). Denies: stridor, wheezing. Gastrointestinal: Denies: abdominal pain, diarrhea. Genitourinary: Denies: dysuria, hematuria. Musculoskeletal: Reports: muscle pain (Right sided chest). Skin: Reports: dryness. Neurological/Psychological: Denies: confusion, headache. Hematologic/Endocrine: Denies: bruising, bleeding. Objective Last 24 Hrs of Vital Signs/I&O Vital Signs Date Time Temp Pulse Resp B/P Pulse O2 O2 Flow FiO2 Ox Delivery Rate 06/07 0714 97.6 101 20 130/76 99 06/07 0607 101 130/76 06/07 0000 98 Nasal 3.0L Cannula 06/06 2219 107 148/88 06/06 2219 98.1 107 20 148/88 98 Nasal 3.0L Cannula 06/06 1426 100 120/90 06/06 1425 98.1 120 20 120/90 94 Intake & Output 06/07 1600 06/07 0800 06/07 0000 Intake Total 780 780 Output Total Balance 780 780 Intake, IV 300 300 Intake, Oral 480 480 Physical Exam General Appearance: Alert, Oriented X3, Cooperative, No Acute Distress Skin: Occasional excoriations, dryness appreciated. HEENT: Atraumatic, Mucous Membr. moist/pink Neck: Supple Lymphatic: Cervical nl Cardiovascular: Normal S1, Normal S2 Lungs: Normal Air Movement Abdomen: Normal Bowel Sounds, Soft Neurological: Normal Gait, Normal Speech, Normal Tone Extremities: No Clubbing, No Cyanosis Vascular: Pulses Symmetrical Current Medications: Current Medications Sig/Shahla Start time Last Medication Dose Route Stop Time Status Admin Albuterol Sulfate 2 PUF Q4-6 PRN PRN 05/06 0100 AC INH Baclofen 10 MG Q6P PRN 05/08 2030 AC 06/02 PO 2229 Clonidine 0.1 MG Q8 05/08 2200 AC 06/07 PO 0607 Cyclobenzaprine HCl 10 MG AT BEDTIME 05/23 2200 AC 06/06 PO 2219 Dicyclomine HCl 20 MG 4 TIMES/DAY PRN 05/08 2030 AC PO Diphenhydramine HCl 25 MG Q6P PRN 05/19 1200 AC 06/07 PO 0156 Enoxaparin Sodium 40 MG DAILY@1500 06/02 1501 AC 06/06 SC 1427 Ferrous Sulfate 325 MG TID 05/21 1600 AC 06/06 PO 2219 Hydromorphone HCl 1 MG ONCE ONE 06/06 1300 DC 06/06 IV 06/06 1301 1320 Hydromorphone HCl 2 MG Q3P PRN 06/05 1000 AC 06/07 IV 0631 Hydroxyzine HCl 100 MG Q6-PRN PRN 05/13 1545 AC 05/20 PO 2247 Insulin Aspart 0 AT BEDTIME 05/31 2200 AC 06/06 SC 2218 Insulin Aspart 0 TIDAC 05/31 0800 AC 06/07 SC 0820 Insulin Detemir 55 UNITS BID 06/06 2200 AC 06/06 SC 2218 Insulin Detemir 60 UNITS BID 06/06 1000 DC 06/06 SC 0940 Lidocaine 1 PAT DAILY 06/01 1000 AC 06/06 EXT 0940 Lorazepam 1 MG ONCE ONE 06/06 1500 DC 06/06 IV 06/06 1501 1511 Lorazepam 0.5 MG ONCE ONE 06/06 0900 DC 06/06 IV 06/06 0901 0937 Magnesium Chloride 64 MG DAILY 05/21 1246 AC 06/06 PO 0940 Oxacillin Sodium 2,000 MG Q4H 05/23 1030 AC 06/07 Sodium Chloride 100 ML IV 06/13 2355 0607 Patient Medication 1 ED .STK-MED ONE 06/06 1339 DC Teaching ED 06/06 1340 Pregabalin 150 MG BID 05/27 1000 AC 06/06 PO 2219 Quetiapine Fumarate 100 MG AT BEDTIME 05/28 220 AC 06/06 PO 2219 Last 24 Hrs of Lab/Haris Results Last 24 Hrs of Labs/Mics: Laboratory Tests 06/07/16 0600: CBC w Diff Pending, WBC Pending, RBC Pending, Hgb Pending, Hct Pending, MCV Pending, MCH Pending, RDW Pending, Plt Count Pending, MPV Pending, PUBS MCHC Pending Orders Radiology Findings: EXAMINATION: CT CHEST WITHOUT CONTRAST CLINICAL INFORMATION: Chest pain, persisting hemothorax and pleural effusion. COMPARISON: 05/27/2016, CTA 05/26/2016. 04/11/2016. TECHNIQUE: Multidetector volumetric CT imaging of the chest was done. Axial MIP volume rendering provided. Sagittal and coronal reformatted images were obtained. DLP: 740 mGy-cm. FINDINGS: Previously identified right-sided drainage tube has been removed. There is been a dramatic decrease in the large right-sided pleural effusion since the previous examination with only a small residual right-sided pleural effusion. There is a moderate-sized loculated hydropneumothorax identified posteriorly and inferiorly just above the pleural catheter. The air is likely iatrogenic given the indwelling chest drain. Clinical correlation recommended. There is persistent collapse involving a large portion of the right lower lobe. The majority of the superior segment appears reexpanded. There is a rounded density abutting the right lateral chest wall which likely a focus of rounded atelectasis extending to the minor fissure. Peripheral groundglass opacity identified anteriorly in the right upper lobe laterally appears largely unchanged from the 04/06/2016 exam. There is some fluid along the major fissure. There are some scattered pulmonary nodules bilaterally likely related to the patient's acute process, none of these were definitively identified on the 04/11/2016 exam. Soft tissue stranding involving the upper lateral right hemithorax posteriorly appears improved. There is a left IJ central venous catheter with its tip in the lower SVC. Mediastinum is otherwise unremarkable. Imaging through the upper abdomen demonstrates persistent mild splenomegaly,: Is stool-filled, stomach debris filled. Osseous structures demonstrate no suspicious findings appear IMPRESSION: 1. Decreasing pleural effusion with a chest drain in place. 2. There is a small to moderate size hydropneumothorax. Iatrogenic versus infectious. Clinical correlation recommended. 3. Majority of the right lower lobe with the exception of the superior segment remain collapsed. Otherwise findings appear largely unchanged. Left lung remains relatively clear. Assessment/Plan Assessment: Ms. Urias is 40-year-old female with a past medical history of osteomyelitis of pubis, necrotizing fasciitis of the perineum, hysterectomy, colostomy reversed, left renal abscess, C. difficile colitis,anxiety, depression, chronic pain disorder,chronic back pain,chronic anemia, poorly controlled IDDM 2, DKA, recent fall with minimal displaced pelvic fracture, right shoulder cellulitis s/ p incision and drainage on oxacillin to finish a course of 4 weeks (untill May 12) discharged 04/18/16, presenting with a chief complaint of worsening right pelvic and hip pain. Now found to have pulmonary findings on CTA including a large pleural effusion, concerning for pneumonia, septic embolism and lung abscess. # Right sided pleural effusion - CTA (05/27) shows a new large right pleural effusion with collapse of the right lung and patchy airspace opacities concerning for pneumonia. There are also severeal areas of intraparenchymal hypoattenuation and small volume gas concerning for areas of pulmonary abscess formation. In the left lung there are 6 mm subpleural nodular opacity and several nodular opacities, concerning for septic emboli. Pyelonephritis cannot be excluded. - Pleural catheter placement (05/28) - Drained about 1L of blood-tinged fluid at the time of placement. Pleural fluid analysis - hemorrhagic exudative fluid, pleural cytology & culture - negativ. - Repeat CXR (06/05): right drainage catheter remains in place, unchanged, with persistent right pleural effusion. There is a new small amount of lucency, likely air, along the lateral aspect of the pleural space. Increasing discoid atelectasis at the left base. * 06/06: Drained about 50mL of serosanguinous fluid over the past 24 hours. She received a tPA injection for 2 days but has been refusing it since yest. improvement. * Repeat CT chest on 06/06 showed decreased effusion size with small/moderate hydropneumothorax. Right pigtail catheter discontinued by surgery yesterday without complication, patient tolerated removal well and reports only mild pain. * Patient will require repeat imaging later this weekend to monitor for reaccumulation of fluid before discharge * ID/Pulm/Thoracic surgery consulted, follow recs * Monitor off abx pending above per ID rec * Check CBC daily, trend WBC - WNL * Vitals per protocol, watch for fever * Encourage incentive spirometry use * Pain control as discussed below # S. aureus bacteremia Patient found to be septic on admission with fever, tachycardia and first set of blood cultures growing staph aureus. Patient was placed on vancomycin in addition to oxacillin on which patient had already been for cellulitis prior the this admission. Patient went into a septic shock on 05/06 which resolved with aggressive IVF resucsitation. Initial blood cultures and a series of repeat bcx' s grew MSSA. TTE and MONICA negative for endocarditis. Blood culture from the Pro line grew GPC before the peripheral line. This raised the suspicion that the source of infection could be from the Pro-line. Blood cultures from 05/12 growing GNR. Pro-line removed on 05/13. Tip of the catheter growing GNR, GPC, and staph coag negative. Repeat blood cultures from 05/13 and 05/15 NGTD - MRI pelvis (05/07): - Bone marrow edema within the pubic rami extending to the right acetabulum compatible with posttraumatic inflammatory change. Soft tissue edema surrounds the rami fractures without evidence of a focal, organized fluid collection in this region. Small right hip joint effusion nonspecific but possibly indicative of early infectious arthritis. New Pro-line placement on 05/20. - WBC scan (05/09): Grossly unremarkable except for moderately intense diffuse lung activity (nonspecific), possibly due to a diffuse inflammatoryprocess in the lungs * ID consulted, follow recs * Continue IV oxacillin, to be discontinued on 06/10/16 (renewed on 06/07/16) * Arrange Pro-line removal outpatient by IR - per IR dept, patient needs to follow up with a PCP in order to set up the appointment for Pro-line removal outpatient. An appointment was scheduled with Dr. Espinosa on 06/09/16 at 1:15PM. IR dept and Dr. Espinosa's office both notified about the need for the Pro-line to be removed on 06/10. * Follow wound care recs # Poor controlled diabetes * Increased Levemir to 55U SQ BID yesterday, patient's FSGs remain slightly elevated and close to 100 * Novolog SSI with accuchecks - decrease back to medium dose SSI # Pyuria possibly 2/2 fistula UA remakrable for a large amount of leuk esterase and WBC, and moderate epith cells. Ucx was negative. Patient currently has no urinary symptoms but CT abdomen/pelvis (05/27) showed air locules within the bladder and vagina. No h/o recent instrumentation and no evidence of signs/sxs of fistula on physical exam. - CT abd/pelvis with oral/IV/rectal contrast (05/30): No evidence of fistula or any other acute bowel pathology. Drainage catheter in place in the right pleural effusion with multiple foci of gas within the fluid. Areas of consolidation in the right lung concerning for possible atelectasis vs. pneumonia. Gas is seen within the bladder lumen, which is mostly decompressed. # Chronic pain syndrome Patient carries a hx of chronic pain disorder. Patient does have a fracture in the right hip from a fall a month ago. Ortho saw the patient and recommended conservative management without any further interventions at that time. Ortho was contacted again on 05/13 and no interventions were recommended. * IV Dilaudid 2mg IV Q4P to Q3P * Discontinue Roxicodone to 15mg PO Q8P * Minimize IV narcotics * Pain management was consulted about methadone taper, follow recs # Anemia most likely 2/2 iron deficiency - Resolved Patient's hemoglobin dropped to 7.1 on 05/22. Hgb dropped to 6.9 despite receiving 1 unit of pRBC. She received 2 additional units with an appropriate response. [place] stool test negative. Iron studies significant for low Fe and slightly elevated TIBC. Patient was transfused a total of 3 units on 05/22. Most likely anemia of chronic disease vs. ACBL vs. Fe deficiency. * Cont iron supplementation * Transfuse if Hgb < 7 # Hyponatremia - Resolved Patient presented with a sodium level of 114 (corrected Na 122), consistent with acute on chronic hyponatremia. This is most attributable to pseudohyponatremia in the setting of hyperglycemia, possibly with a component of SIADH/sepsis/poor intake. Patient is currently has no significant neurological symptoms. Serum & urine osmolality WNL. # Mood disorders * Psych consulted, appreciate recs * Cont Seroquel at bedtime as pt finds it helpful # Diet regular diet # Moderate-Severe pain pathway # DVT prophylaxis - Lovenox # Full code Problem List: 1. Pleural effusion 2. Bacteremia 3. Right hip pain Pain Ratin Pain Location: Back, shoulder, leg, right chest. Pain Goal: Pain 7 or less Pain Plan: Severe pain pathway. Tomorrow's Labs & Rationales: CBC to monitor H/H for anemia Consulting Request: Consulting Specialty: Pain Church Organist Physician: Gerald Dunbar MD Reason for Consult: bacteremia
[2016-06-07 08:36] LABS: ABSOLUTE BASOPHIL COUNT 0 /CUMM (0.0-0.2); ABSOLUTE EOSINOPHIL COUNT 0.5 /CUMM (0.0-0.7); ABSOLUTE GRANULOCYTE CT 2.7 /CUMM (1.4-6.5); ABSOLUTE LYMPH COUNT 1.1 /CUMM (1.2-3.4); ABSOLUTE MONOCYTE COUNT 0.4 /CUMM (0.10-0.60); BASOPHIL % 0.6 % (0.0-2.0); EOSINOPHIL % 11.2 % (0-5); GRANULOCYTE % 56.7 % (42.2-75.2); MEAN CORPUSCULAR HGB 27.1 PG (27.0-31.0); MEAN CORPUSCULAR HGB CONC 32.3 G/DL (33.0-37.0); MEAN CORPUSCULAR VOLUME 83.9 FL (81.0-99.0); MEAN PLATELET VOLUME 8.3 FL (7.4-10.4); PLATELET COUNT 186 /CUMM (130-400); RBC DISTRIBUTION WIDTH 24.5 % (11.5-14.5); RED BLOOD CELL CT 3.34 /CUMM (4.20-5.40); WHITE BLOOD CELL COUNT 4.8 /CUMM (4.8-10.8)
--- NOTE | 2016-06-07 11:08 | PN- Pulmonary ---
Subjective HPI/Critical Care Issues: Chest tube has been removed patient is comfortable on room air Objective Current Medications: Current Medications Sig/Shahla Start time Last Medication Dose Route Stop Time Status Admin Albuterol Sulfate 2 PUF Q4-6 PRN PRN 05/06 0100 AC INH Baclofen 10 MG Q6P PRN 05/08 2030 AC 06/02 PO 2229 Clonidine 0.1 MG Q8 05/08 2200 AC 06/07 PO 0607 Cyclobenzaprine HCl 10 MG AT BEDTIME 05/23 2200 AC 06/06 PO 2219 Dicyclomine HCl 20 MG 4 TIMES/DAY PRN 05/08 2030 AC PO Diphenhydramine HCl 25 MG Q6P PRN 05/19 1200 AC 06/07 PO 0156 Enoxaparin Sodium 40 MG DAILY@1500 06/02 1501 AC 06/06 SC 1427 Ferrous Sulfate 325 MG TID 05/21 1600 AC 06/07 PO 0921 Hydromorphone HCl 1 MG ONCE ONE 06/06 1300 DC 06/06 IV 06/06 1301 1320 Hydromorphone HCl 2 MG Q3P PRN 06/05 1000 AC 06/07 IV 0921 Hydroxyzine HCl 100 MG Q6-PRN PRN 05/13 1545 AC 05/20 PO 2247 Insulin Aspart 0 AT BEDTIME 05/31 2200 AC 06/06 SC 2218 Insulin Aspart 0 TIDAC 05/31 0800 AC 06/07 SC 0820 Insulin Detemir 55 UNITS BID 06/06 2200 AC 06/07 SC 0921 Lidocaine 1 PAT DAILY 06/01 1000 AC 06/07 EXT 0921 Lorazepam 0.5 MG ONCE ONE 06/07 0915 DC 06/07 IV 06/07 0916 0921 Lorazepam 1 MG ONCE ONE 06/06 1500 DC 06/06 IV 06/06 1501 1511 Magnesium Chloride 64 MG DAILY 05/21 1246 AC 06/07 PO 0921 Oxacillin Sodium 2,000 MG Q4H 05/23 1030 AC 06/07 Sodium Chloride 100 ML IV 06/13 2355 0607 Patient Medication 1 ED .STK-MED ONE 06/06 1339 DC Teaching ED 06/06 1340 Pregabalin 150 MG BID 05/27 1000 AC 06/07 PO 0920 Quetiapine Fumarate 100 MG AT BEDTIME 05/28 220 AC 06/06 PO 2219 Similar chest shows diminished breath sounds over the right hemithorax left chest is clear cardiac exam shows regular S1 and S2 without murmurs Vital Signs & I&O Last 24 Hrs of Vitals and I&O: Vital Signs Date Time Temp Pulse Resp B/P Pulse O2 O2 Flow FiO2 Ox Delivery Rate 06/07 0714 97.6 101 20 130/76 99 06/07 0607 101 130/76 06/07 0000 98 Nasal 3.0L Cannula 06/06 2218 107 148/88 06/06 221 98.1 107 20 148/88 98 Nasal 3.0L Cannula 06/06 1426 100 120/90 06/06 1425 98.1 120 20 120/90 94 Intake & Output 06/07 1600 06/07 0800 06/07 0000 Intake Total 780 780 Output Total Balance 780 780 Intake, IV 300 300 Intake, Oral 480 480 Symptoms the chest continues showed diminished breath sounds over the right Impression/Plan Impression/Plan Impression/Plan: 40-year-old woman status post removal of chest strain with residual small hydropneumothorax and Recommendations: Aggressive pulmonary toilet. Incentive spirometry. Increased mobilization. Repeat chest x-ray tomorrow
[2016-06-07 14:04] VITALS: BP 110/70
--- NOTE | 2016-06-07 16:40 | NUR ---
THIS RN INTO PTS ROOM AT THIS TIME, PT STATING SHE IS 10/10 PAIN IN HER HIPS. PT NOT DUE AT THIS TIME FOR PRN IV DILAUDID. APPLIANCE LINE ASSEMBLER MARILU MADE AWARE. ORDER FOR 1MG IV DILAUDID ACKNOWLEDGED. WHEN THIS RN WENT INTO PTS ROOM, PT SLEEPING. APPLIANCE LINE ASSEMBLER MARILU MADE AWARE. DILAUDID NOT GIVEN. WILL CONTINUE TO MONITOR.
--- NOTE | 2016-06-07 17:02 | NUR ---
PT AWAKE AT THIS TIME, CRYING THAT SHE IS IN PAIN. SHOPPING CENTRE MANAGER MARILU MADE AWARE. PER SHOPPING CENTRE MANAGER, OK TO GIVE PRN DOSE 30 MIN EARLY AT 1725. WILL CONTINUE TO MONITOR.
--- NOTE | 2016-06-07 21:00 | NUR ---
PT STATING TO THIS RN THAT SHE IS IN 10/10 PAIN AND THE 2MG IV DILAUDID AT 2019 DID NOT HELP HER. SHE IS STATING THAT SHE CANNOT WAIT UNTIL 2319 TO HAVE THE NEXT DOSE. NITRIC ACID PLANT OPERATOR KARINA NOTIFIED. ORDER ACKNOWLEDGED FOR 1MG IV DILAUDID AT THIS TIME. PT AWARE THAT NEXT DOSE DUE FOR DILAUDID WOULD BE 3 HOURS FROM 1MG IV DILAUDID DOSE. PT A/V/OX3. AMBULATING THE HALLS. RR 20. WILL CONTINUE TO MONITOR.
[2016-06-07 22:00] VITALS: BP 134/86
[2016-06-08 06:48] VITALS: BP 136/90
[2016-06-08 07:59] LABS: ABSOLUTE BASOPHIL COUNT 0 /CUMM (0.0-0.2); ABSOLUTE EOSINOPHIL COUNT 0.6 /CUMM (0.0-0.7); ABSOLUTE GRANULOCYTE CT 3.4 /CUMM (1.4-6.5); ABSOLUTE LYMPH COUNT 1.4 /CUMM (1.2-3.4); ABSOLUTE MONOCYTE COUNT 0.6 /CUMM (0.10-0.60); BASOPHIL % 0.4 % (0.0-2.0); EOSINOPHIL % 9.3 % (0-5); GRANULOCYTE % 56.9 % (42.2-75.2); HEMATOCRIT 29.9 % (37-47); MEAN CORPUSCULAR HGB 27.3 PG (27.0-31.0); MEAN CORPUSCULAR HGB CONC 32.9 G/DL (33.0-37.0); MEAN CORPUSCULAR VOLUME 83.2 FL (81.0-99.0); MEAN PLATELET VOLUME 8.6 FL (7.4-10.4); PLATELET COUNT 201 /CUMM (130-400); RBC DISTRIBUTION WIDTH 24.2 % (11.5-14.5); RED BLOOD CELL CT 3.59 /CUMM (4.20-5.40)
--- NOTE | 2016-06-08 08:32 | PN- Housestaff ---
MARLENE FARFAN,MICHEL 06/08/16 0832: Subjective Follow-up For: Hemothorax Bactermia Chronic pain syndrome Subjective: Patient seen and examined at bedside. She reports persistent pain in the right sided chest, flank and hip, still requiring IV analgesics and refusing any PO. She also has persistent anxiety for which she demands IV Ativan. Denies any palpitations, shortness of breath, fever, chills, nausea, vomiting, abdominal pain, diarrhea, constipation. Review of Systems Constitutional: Reports: see HPI. Objective Last 24 Hrs of Vital Signs/I&O Vital Signs Date Time Temp Pulse Resp B/P Pulse O2 O2 Flow FiO2 Ox Delivery Rate 06/08 211 113 172/98 06/08 1355 98.1 100 18 122/60 98 Room Air 06/08 0648 97.9 109 20 136/90 95 Room Air 06/08 0628 134/86 Intake & Output 06/08 1600 06/08 0800 06/08 0000 Intake Total 700 400 860 Output Total Balance 700 400 860 Intake, IV 200 260 Intake, Oral 500 400 600 Physical Exam General Appearance: Alert, Oriented X3, Cooperative, Mild Distress Other Physical Findings: Skin cellulitis on the right shoulder healing well with scar formation, no oozing or drainage. No signs of infection around the Pro-line insertion site without drainage/erythema/tenderness. 4 x 2 unstageable pressure ulcer in the coccyx - moist yellow slough with periwound edge light purple discolored hue and scant drainage - improving. HEENT: Mucous Membr. moist/pink Cardiovascular: Regular Rate, Normal S1, Normal S2, No Murmurs, Gallops, Rubs Pulmonary: Decreased breath sounds on the right lung. CTA on the left lung. Abdomen: Normal Bowel Sounds, Soft, Severe tenderenss in right flank. MSK: Severe pain in the right hip with limited ROM. Extremities: No Clubbing, No Cyanosis, No Edema Current Medications: Current Medications Sig/Shahla Start time Last Medication Dose Route Stop Time Status Admin Albuterol Sulfate 2 PUF Q4-6 PRN PRN 05/06 0100 AC INH Baclofen 10 MG Q6P PRN 05/08 2030 AC 06/02 PO 2228 Clonidine 0.1 MG Q8 05/08 2200 AC 06/08 PO 2115 Cyclobenzaprine HCl 10 MG AT BEDTIME 05/23 2199 AC 06/08 PO 2116 Dicyclomine HCl 20 MG 4 TIMES/DAY PRN 05/08 2030 AC PO Diphenhydramine HCl 25 MG Q6P PRN 05/19 1200 AC 06/08 PO 1545 Enoxaparin Sodium 40 MG DAILY@1500 06/02 1501 06/06 SC 1427 Ferrous Sulfate 325 MG TID 05/21 1600 AC 06/08 PO 2115 Hydromorphone HCl 2 MG Q3P PRN 06/08 1815 AC 06/08 IV 2111 Hydromorphone HCl 2 MG Q4 HRS NEEDED PRN 06/08 1530 DC 06/08 IV 1541 Hydromorphone HCl 1 MG ONCE ONE 06/08 1300 DC 06/08 IV 06/08 1301 1210 Hydromorphone HCl 1 MG ONCE ONE 06/08 1100 DC 06/08 IV 06/08 1101 1118 Hydromorphone HCl 2 MG Q3P PRN 06/05 1000 DC 06/08 IV 0908 Hydroxyzine HCl 100 MG Q6-PRN PRN 05/13 1545 05/20 PO 2247 Insulin Aspart 0 AT BEDTIME 05/31 220 06/08 ND 2116 Insulin Aspart 0 TIDAC 05/31 0800 06/08 SC 1210 Insulin Detemir 55 UNITS BID 06/06 220 06/08 SC 2115 Lidocaine 1 PAT DAILY 06/01 1000 AC 06/08 EXT 0909 Lorazepam 0.5 MG ONCE ONE 06/08 1800 DC 06/08 IV 06/08 1801 1810 Lorazepam 1 MG ONCE ONE 06/08 1100 DC 06/08 IV 06/08 1101 1118 Lorazepam 1 MG ONE ONE 06/07 2230 DC 06/07 IV 06/07 2231 2224 Magnesium Chloride 64 MG DAILY 05/21 1246 06/08 PO 0909 Oxacillin Sodium 2,000 MG Q4H 05/23 1030 AC 06/08 Sodium Chloride 100 ML IV 06/13 2355 2211 Pregabalin 150 MG BID 05/27 1000 AC 06/08 PO 2115 Quetiapine Fumarate 100 MG AT BEDTIME 05/28 220 AC 06/08 PO 2116 Last 24 Hrs of Lab/Haris Results Last 24 Hrs of Labs/Mics: Laboratory Tests 06/08/16 0630: CBC w Diff NO MAN DIFF REQ, RBC 3.59 L, MCV 83.2, MCH 27.3, RDW 24.2 H, MPV 8.6, Gran % 56.9, Lymphocytes % 23.9, Monocytes % 9.5 H, Eosinophils % 9.3 H, Basophils % 0.4, Absolute Granulocytes 3.4, Absolute Lymphocytes 1.4, Absolute Monocytes 0.6, Absolute Eosinophils 0.6, Absolute Basophils 0, PUBS MCHC 32.9 L Assessment/Plan Assessment: Ms. Urias is 40-year-old female with a past medical history of osteomyelitis of pubis, necrotizing fasciitis of the perineum, hysterectomy, colostomy reversed, left renal abscess, C. difficile colitis,anxiety, depression, chronic pain disorder,chronic back pain,chronic anemia, poorly controlled IDDM 2, DKA, recent fall with minimal displaced pelvic fracture, right shoulder cellulitis s/ p incision and drainage on oxacillin to finish a course of 4 weeks (untill May 12) discharged 04/18/16, presenting with a chief complaint of worsening right pelvic and hip pain. Now found to have pulmonary findings on CTA including a large pleural effusion, concerning for pneumonia, septic embolism and lung abscess. # Right sided pleural effusion - CTA (05/27) shows a new large right pleural effusion with collapse of the right lung and patchy airspace opacities concerning for pneumonia. There are also severeal areas of intraparenchymal hypoattenuation and small volume gas concerning for areas of pulmonary abscess formation. In the left lung there are 6 mm subpleural nodular opacity and several nodular opacities, concerning for septic emboli. Pleural catheter inserted on 05/28 and removed on 06/07. - Repeat CXR (06/08): No pneumothorax is seen status-post right thoracostomy tube removal. There is persistent moderate right base airspace disease and effusion. There is a stable mild linear scar/subsegmental atelectasis at the lateral left base. * Consider repeat CXR tmrw * ID/Pulm/Thoracic surgery consulted, follow recs * Monitor off abx pending above per ID rec * Check CBC daily, trend WBC - WNL * Vitals per protocol, watch for fever * Encourage incentive spirometry use * Pain control as discussed below # S. aureus bacteremia Patient found to be septic on admission with fever, tachycardia and first set of blood cultures growing staph aureus. Patient was placed on vancomycin in addition to oxacillin on which patient had already been for cellulitis prior the this admission. Patient went into a septic shock on 05/06 which resolved with aggressive IVF resucsitation. Initial blood cultures and a series of repeat bcx' s grew MSSA. TTE and MONICA negative for endocarditis. Blood culture from the Pro line grew GPC before the peripheral line. This raised the suspicion that the source of infection could be from the Pro-line. Blood cultures from 05/12 growing GNR. Pro-line removed on 05/13. Tip of the catheter growing GNR, GPC, and staph coag negative. Repeat blood cultures from 05/13 and 05/15 NGTD - MRI pelvis (05/07): - Bone marrow edema within the pubic rami extending to the right acetabulum compatible with posttraumatic inflammatory change. Soft tissue edema surrounds the rami fractures without evidence of a focal, organized fluid collection in this region. Small right hip joint effusion nonspecific but possibly indicative of early infectious arthritis. New Pro-line placement on 05/20. - WBC scan (05/09): Grossly unremarkable except for moderately intense diffuse lung activity (nonspecific), possibly due to a diffuse inflammatoryprocess in the lungs * ID consulted, follow recs * Continue IV oxacillin, to be discontinued on 06/10/16 (renewed on 06/07/16) * In case the patient gets discharged tomorrow, Pro-line removal arranged outpatient by IR - per IR dept, patient needs to follow up with a PCP in order to set up the appointment for Pro-line removal outpatient. An appointment was scheduled with Dr. Espinosa on 06/09/16 at 1:15PM. IR dept and Dr. Espinosa's office both notified about the need for the Pro-line to be removed on 06/10. * Follow wound care recs # Poor controlled diabetes * Increase Levemir to 58U SQ BID * Novolog SSI with accuchecks - decrease back to medium dose SSI # Pyuria possibly 2/2 fistula UA remakrable for a large amount of leuk esterase and WBC, and moderate epith cells. Ucx was negative. Patient currently has no urinary symptoms but CT abdomen/pelvis (05/27) showed air locules within the bladder and vagina. No h/o recent instrumentation and no evidence of signs/sxs of fistula on physical exam. - CT abd/pelvis with oral/IV/rectal contrast (05/30): No evidence of fistula or any other acute bowel pathology. Drainage catheter in place in the right pleural effusion with multiple foci of gas within the fluid. Areas of consolidation in the right lung concerning for possible atelectasis vs. pneumonia. Gas is seen within the bladder lumen, which is mostly decompressed. # Chronic pain syndrome Patient carries a hx of chronic pain disorder. Patient does have a fracture in the right hip from a fall a month ago. Ortho saw the patient and recommended conservative management without any further interventions at that time. Ortho was contacted again on 05/13 and no interventions were recommended. * IV Dilaudid 2mg IV Q4P to Q3P * Discontinue Roxicodone to 15mg PO Q8P * Minimize IV narcotics * Pain management was consulted about methadone taper, follow recs # Anemia most likely 2/2 iron deficiency - Resolved Patient's hemoglobin dropped to 7.1 on 05/22. Hgb dropped to 6.9 despite receiving 1 unit of pRBC. She received 2 additional units with an appropriate response. [place] stool test negative. Iron studies significant for low Fe and slightly elevated TIBC. Patient was transfused a total of 3 units on 05/22. Most likely anemia of chronic disease vs. ACBL vs. Fe deficiency. * Cont iron supplementation * Transfuse if Hgb < 7 # Hyponatremia - Resolved Patient presented with a sodium level of 114 (corrected Na 122), consistent with acute on chronic hyponatremia. This is most attributable to pseudohyponatremia in the setting of hyperglycemia, possibly with a component of SIADH/sepsis/poor intake. Patient is currently has no significant neurological symptoms. Serum & urine osmolality WNL. # Mood disorders * Psych consulted, appreciate recs * Cont Seroquel at bedtime as pt finds it helpful # Diet regular diet # Moderate-Severe pain pathway # DVT prophylaxis - Lovenox # Full code Problem List: 1. S/P colostomy takedown 2. Pleural effusion 3. Bacteremia 4. Right hip pain 5. Chronic pruritus Pain Ratin Pain Location: Right chest, hip, flank Pain Goal: Pain 4 or less Pain Plan: Severe pathway Tomorrow's Labs & Rationales: CBC to monitor for infection and anemia Consulting Request: Consulting Specialty: Pain Passenger Locomotive Engineer Physician: Gerald Dunbar MD Reason for Consult: bacteremia HAN FARFNA,[facility] 06/08/16 1331: Attending MD Review Statement Attending Statement Attending MD Statement: examined this patient, discuss w/resident/PA/HAND VIOLIN MAKER, agreed w/resident/PA/HAND VIOLIN MAKER, discussed with family, reviewed EMR data (avail), discussed with nursing, discussed with case mgmt, reviewed images, amended to note Attending Assessment/Plan: Patient seen and examined. Agree with interns assessment and plan. Patient sitting comfortably, has anxiety. She is still requesting IV pain medications not agreeable to switch to by mouth. Appreciate pulmonary input. Repeat chest x-ray showed stable effusion.
--- NOTE | 2016-06-08 10:01 | RADIOLOGY REPORT ---
EXAMINATION: XR PORTABLE CHEST CLINICAL INFORMATION: Status-post right thoracostomy tube removal. COMPARISON: Chest radiographs, most recently 06/05/2016; CT thorax dated 06/06/2016. TECHNIQUE: An AP portable upright view of the chest was obtained. FINDINGS: The heart, great vessels, pulmonary vasculature and mediastinum are stable. There is interim removal of the previously placed right thoracostomy tube. There is persistent right base pleural and parenchymal disease. No pneumothorax is seen. There is stable linear atelectasis at the lateral left base. A left central line is unchanged position. There is no acute osseous abnormality. IMPRESSION: No pneumothorax is seen status-post right thoracostomy tube removal. There is persistent moderate right base airspace disease and effusion. There is a stable mild linear scar/subsegmental atelectasis at the lateral left base.
[2016-06-08 13:55] VITALS: BP 122/60
--- NOTE | 2016-06-08 16:15 | NUR ---
PT WALKING DOWN HALLWAY STATING SHE WANTS TO GO HOME. STRATEGIC BUSINESS DEVELOPMENT MICHEL NOTIFIED AND TO COME SEE PT. AFTER SEEING PT, PT AGREEABLE TO STAY AT HOSP. WILL CONTINUE TO MONITOR.
--- NOTE | 2016-06-08 20:24 | NUR ---
PT C/O OF STICKINESS TO HER LCW PROLINE SITE. PT STATES SHE HAS A SUBSTANCE THAT IS SECRETED FROM HER SKIN UNDERNEATH DRSG. DRSG INTACT. FURNACE MAINTENANCE KARINA MADE AWARE. WILL CONTINUE TO MONITOR.
--- NOTE | 2016-06-08 21:10 | NUR ---
CHECKED PTS BP MANUALLY 172/98 SITTING. PULSE 113. PT DENIES CHEST PAIN. PT C/O OF PAIN 10/10 THROUGHOUT BODY. MEDICATED WITH 2MG IV DILAUDID PER EMAR. PROFESSOR OF GRAPHIC DESIGN KARINA NOTIFIED. TO REASSESS BP IN HALF AN HOUR. WILL CONTINUE TO MONITOR.
[2016-06-08 22:11] VITALS: BP 172/98
[2016-06-08 22:18] VITALS: BP 142/70
--- NOTE | 2016-06-08 22:20 | NUR ---
REASSESSMENT OF PTS PULSE MANUALLY 142/70. PULSE 110. SUPERVISOR WET END KARINA MADE AWARE. NO NEW ORDERS AT THIS TIME. WILL CONTINUE TO MONITOR.
--- NOTE | 2016-06-09 02:50 | NUR ---
PT REQUESTED PAIN MEDICATION EARLY. MD ORELLANA AWARE, AND GRANTED PERMISSION TO GIVE DILAUDID 20 MINUTES EARLY.
[2016-06-09 06:21] VITALS: BP 150/90
--- NOTE | 2016-06-09 06:47 | PN- Housestaff ---
MARLENE FARFAN,MICHEL 06/09/16 0647: Subjective Follow-up For: Chronic pain syndrome Subjective: Patient seen and examined at bedside. No events reported overnight. Patient continues to complain of right hip/chest/flank pain. She is asking for IV Dilaudid but understands that this will delay her discharge to home. She agrees to discontinuing IV opiates and staying on by mouth oxycodone only. , no less than 1mg. No acute complaints otherwise. Remains aferbile. Denies any chest pain , palpitations, short of breath, fever, chills, nausea, vomiting, abdominal pain , diarrhea. Review of Systems Constitutional: Reports: see HPI. Objective Last 24 Hrs of Vital Signs/I&O Vital Signs Date Time Temp Pulse Resp B/P Pulse O2 O2 Flow FiO2 Ox Delivery Rate 06/09 1408 97.9 100 18 128/60 98 Room Air 06/09 0621 98.3 106 20 150/90 94 Room Air 06/09 0620 106 150/90 06/08 2218 110 142/70 06/08 2211 98.1 113 18 172/98 98 Room Air 06/08 2116 113 172/98 Intake & Output 06/09 1600 06/09 0800 06/09 0000 Intake Total 250 960 Output Total Balance 250 960 Intake, IV 130 260 Intake, Oral 120 700 Physical Exam General Appearance: Alert, Oriented X3, Cooperative, No Acute Distress Other Physical Findings: Skin cellulitis on the right shoulder nearly recovered with scar formation, no oozing or drainage. No signs of infection around the Pro-line insertion site or the ex-pleural cath site, without drainage/erythema/tenderness. 4 x 2 unstageable pressure ulcer in the coccyx improving. HEENT: Mucous Membr. moist/pink Cardiovascular: Regular Rate, Normal S1, Normal S2, No Murmurs, Gallops, Rubs Pulmonary: Decreased breath sounds on the right lung. CTA on the left lung. Abdomen: Normal Bowel Sounds, Soft, Severe tenderenss in right flank. MSK: Severe pain in the right hip with limited ROM. Extremities: No Clubbing, No Cyanosis, No Edema Current Medications: Current Medications Sig/Shahla Start time Last Medication Dose Route Stop Time Status Admin Albuterol Sulfate 2 PUF Q4-6 PRN PRN 05/06 0100 AC INH Baclofen 10 MG Q6P PRN 05/08 2030 AC 06/02 PO 2229 Clonidine 0.1 MG Q8 05/08 2200 AC 06/09 PO 0620 Cyclobenzaprine HCl 10 MG AT BEDTIME 05/23 2200 AC 06/08 PO 2116 Dicyclomine HCl 20 MG 4 TIMES/DAY PRN 05/08 2030 AC PO Diphenhydramine HCl 25 MG Q6P PRN 05/19 1200 AC 06/09 PO 1025 Enoxaparin Sodium 40 MG DAILY@1500 06/02 1501 AC 06/06 SC 1427 Ferrous Sulfate 325 MG TID 05/21 1600 AC 06/09 PO 1029 Hydromorphone HCl 2 MG Q3P PRN 06/09 0945 DC 06/09 IV 06/09 0946 1022 Hydromorphone HCl 2 MG Q3P PRN 06/08 1815 DC 06/09 IV 0824 Hydromorphone HCl 2 MG Q4 HRS NEEDED PRN 06/08 1530 DC 06/08 IV 1541 Hydroxyzine HCl 100 MG Q6-PRN PRN 05/13 1545 AC 05/20 PO 2247 Insulin Aspart 0 AT BEDTIME 05/31 2200 AC 06/08 SC 2116 Insulin Aspart 0 TIDAC 05/31 0800 AC 06/09 SC 1238 Insulin Detemir 58 UNITS BID 06/09 1000 AC 06/09 SC 1023 Insulin Detemir 55 UNITS BID 06/06 2200 DC 06/08 SC 2115 Lidocaine 1 PAT DAILY 06/01 1000 AC 06/09 EXT 1030 Lorazepam 1 MG ONE ONE 06/09 1015 DC 06/09 PO 06/09 1016 1025 Lorazepam 0.5 MG ONCE ONE 06/08 1800 DC 06/08 IV 06/08 1801 1810 Magnesium Chloride 64 MG DAILY 05/21 1246 AC 06/09 PO 1029 Oxacillin Sodium 2,000 MG Q4H 05/23 1030 AC 06/09 Sodium Chloride 100 ML IV 06/13 2355 1031 Oxycodone HCl 15 MG Q4-6 PRN PRN 06/09 0945 AC 06/09 PO 1242 Polyethylene Glycol 17 GM DAILY 06/09 1000 AC PO Pregabalin 150 MG BID 05/27 1000 AC 06/09 PO 1024 Quetiapine Fumarate 100 MG AT BEDTIME 05/28 2200 AC 06/08 PO 2116 Senna/Docusate Sodium 1 TAB BID PRN 06/09 0945 AC PO Last 24 Hrs of Lab/Haris Results Last 24 Hrs of Labs/Mics: Laboratory Tests 06/09/16 0615: Anion Gap 8, Estimated GFR > 60, BUN/Creatinine Ratio 30.0 H, CBC w Diff NO MAN DIFF REQ, RBC 3.63 L, MCV 83.7, MCH 27.7, RDW 24.9 H, MPV 8.6, Gran % 58.4, Lymphocytes % 23.0, Monocytes % 6.5, Eosinophils % 11.5 H, Basophils % 0.6, Absolute Granulocytes 3.2, Absolute Lymphocytes 1.3, Absolute Monocytes 0.4, Absolute Eosinophils 0.6, Absolute Basophils 0, PUBS MCHC 33.1 Assessment/Plan Assessment: Ms. Urias is 40-year-old female with a past medical history of osteomyelitis of pubis, necrotizing fasciitis of the perineum, hysterectomy, colostomy reversed, left renal abscess, C. difficile colitis,anxiety, depression, chronic pain disorder,chronic back pain,chronic anemia, poorly controlled IDDM 2, DKA, recent fall with minimal displaced pelvic fracture, right shoulder cellulitis s/ p incision and drainage on oxacillin to finish a course of 4 weeks (untill May 12) discharged 04/18/16, presenting with a chief complaint of worsening right pelvic and hip pain. Now found to have pulmonary findings on CTA including a large pleural effusion, concerning for pneumonia, septic embolism and lung abscess. # Right sided pleural effusion most likely due to hemothorax - CTA (05/27) shows a new large right pleural effusion with collapse of the right lung and patchy airspace opacities concerning for pneumonia. There are also severeal areas of intraparenchymal hypoattenuation and small volume gas concerning for areas of pulmonary abscess formation. In the left lung there are 6 mm subpleural nodular opacity and several nodular opacities, concerning for septic emboli. Pleural catheter inserted on 05/28 and removed on 06/07. - Repeat CXR (06/08): No pneumothorax is seen status-post right thoracostomy tube removal. There is persistent moderate right base airspace disease and effusion. There is a stable mild linear scar/subsegmental atelectasis at the lateral left base. * Follow repeat CXR tmrw * ID/Pulm/Thoracic surgery consulted, follow recs * Monitor off abx pending above per ID rec * Check CBC daily, trend WBC - WNL * Vitals per protocol, watch for fever * Encourage incentive spirometry use * Pain control as discussed below # S. aureus bacteremia Patient found to be septic on admission with fever, tachycardia and first set of blood cultures growing staph aureus. Patient was placed on vancomycin in addition to oxacillin on which patient had already been for cellulitis prior the this admission. Patient went into a septic shock on 05/06 which resolved with aggressive IVF resucsitation. Initial blood cultures and a series of repeat bcx' s grew MSSA. TTE and MONICA negative for endocarditis. Blood culture from the Pro line grew GPC before the peripheral line. This raised the suspicion that the source of infection could be from the Pro-line. Blood cultures from 05/12 growing GNR. Pro-line removed on 05/13. Tip of the catheter growing GNR, GPC, and staph coag negative. Repeat blood cultures from 05/13 and 05/15 NGTD - MRI pelvis (05/07): - Bone marrow edema within the pubic rami extending to the right acetabulum compatible with posttraumatic inflammatory change. Soft tissue edema surrounds the rami fractures without evidence of a focal, organized fluid collection in this region. Small right hip joint effusion nonspecific but possibly indicative of early infectious arthritis. New Pro-line placement on 05/20. - WBC scan (05/09): Grossly unremarkable except for moderately intense diffuse lung activity (nonspecific), possibly due to a diffuse inflammatoryprocess in the lungs * ID consulted, follow recs * Continue IV oxacillin, to be discontinued on 06/10/16 * In case the patient gets discharged tomorrow, Pro-line removal arranged outpatient by IR - per IR dept, patient needs to follow up with a PCP in order to set up the appointment for Pro-line removal outpatient. An appointment was scheduled with Dr. Espinosa on 06/09/16 at 1:15PM. IR dept and Dr. Espinosa's office both notified about the need for the Pro-line to be removed on 06/10. * Follow wound care recs # Poor controlled diabetes * Increase Levemir to60U SQ BID * Novolog SSI with accuchecks - decrease back to medium dose SSI # Pyuria possibly 2/2 fistula UA remakrable for a large amount of leuk esterase and WBC, and moderate epith cells. Ucx was negative. Patient currently has no urinary symptoms but CT abdomen/pelvis (05/27) showed air locules within the bladder and vagina. No h/o recent instrumentation and no evidence of signs/sxs of fistula on physical exam. - CT abd/pelvis with oral/IV/rectal contrast (05/30): No evidence of fistula or any other acute bowel pathology. Drainage catheter in place in the right pleural effusion with multiple foci of gas within the fluid. Areas of consolidation in the right lung concerning for possible atelectasis vs. pneumonia. Gas is seen within the bladder lumen, which is mostly decompressed. # Chronic pain syndrome Patient carries a hx of chronic pain disorder. Patient does have a fracture in the right hip from a fall a month ago. Ortho saw the patient and recommended conservative management without any further interventions at that time. Ortho was contacted again on 05/13 and no interventions were recommended. * IV Dilaudid 2mg IV Q4P to Q3P * Discontinue Roxicodone to 15mg PO Q8P * Minimize IV narcotics * Pain management was consulted about methadone taper, follow recs # Anemia most likely 2/2 iron deficiency - Resolved Patient's hemoglobin dropped to 7.1 on 05/22. Hgb dropped to 6.9 despite receiving 1 unit of pRBC. She received 2 additional units with an appropriate response. [place] stool test negative. Iron studies significant for low Fe and slightly elevated TIBC. Patient was transfused a total of 3 units on 05/22. Most likely anemia of chronic disease vs. ACBL vs. Fe deficiency. * Cont iron supplementation * Transfuse if Hgb < 7 # Hyponatremia - Resolved Patient presented with a sodium level of 114 (corrected Na 122), consistent with acute on chronic hyponatremia. This is most attributable to pseudohyponatremia in the setting of hyperglycemia, possibly with a component of SIADH/sepsis/poor intake. Patient is currently has no significant neurological symptoms. Serum & urine osmolality WNL. # Mood disorders * Psych consulted, appreciate recs * Cont Seroquel at bedtime as pt finds it helpful # Diet regular diet # Moderate-Severe pain pathway # DVT prophylaxis - Lovenox # Full code Problem List: 1. Diabetes mellitus 2. Pleural effusion 3. Bacteremia 4. 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 Resting comfortably, she is not in acute distress today. She is not tearful this morning when we examined her. She is due to complete her antibiotic dose today and will be medically stable for discharge tomorrow. We did discuss the need to transition to oral analgesic therapy. Patient is known to be transitioned to oral Dilaudid. She wants to be transitioned to oral Roxicodone. She stated that after a dose of IV Dilaudid this morning she was willing to transition to oral analgesic therapy. Once her antibiotic course is completed her pro-line will be discontinued she can be discharged home in the morning.
[2016-06-09 08:14] LABS: ABSOLUTE BASOPHIL COUNT 0 /CUMM (0.0-0.2); ABSOLUTE EOSINOPHIL COUNT 0.6 /CUMM (0.0-0.7); ABSOLUTE GRANULOCYTE CT 3.2 /CUMM (1.4-6.5); ABSOLUTE LYMPH COUNT 1.3 /CUMM (1.2-3.4); ABSOLUTE MONOCYTE COUNT 0.4 /CUMM (0.10-0.60); BASOPHIL % 0.6 % (0.0-2.0); EOSINOPHIL % 11.5 % (0-5); GRANULOCYTE % 58.4 % (42.2-75.2); HEMATOCRIT 30.4 % (37-47); MEAN CORPUSCULAR HGB 27.7 PG (27.0-31.0); MEAN CORPUSCULAR HGB CONC 33.1 G/DL (33.0-37.0); MEAN CORPUSCULAR VOLUME 83.7 FL (81.0-99.0); MEAN PLATELET VOLUME 8.6 FL (7.4-10.4); PLATELET COUNT 214 /CUMM (130-400); RBC DISTRIBUTION WIDTH 24.9 % (11.5-14.5); RED BLOOD CELL CT 3.63 /CUMM (4.20-5.40); WHITE BLOOD CELL COUNT 5.5 /CUMM (4.8-10.8)
--- NOTE | 2016-06-09 12:03 | PN- Pulmonary ---
Subjective HPI/Critical Care Issues: pt seen and examined chest tube has been removed some discomfort xr stable no fevers comfortable Objective Current Medications: Current Medications Sig/Shahla Start time Last Medication Dose Route Stop Time Status Admin Albuterol Sulfate 2 PUF Q4-6 PRN PRN 05/06 0100 AC INH Baclofen 10 MG Q6P PRN 05/08 2030 AC 06/02 PO 2229 Clonidine 0.1 MG Q8 05/08 2200 AC 06/09 PO 0620 Cyclobenzaprine HCl 10 MG AT BEDTIME 05/23 2200 AC 06/08 PO 2116 Dicyclomine HCl 20 MG 4 TIMES/DAY PRN 05/08 2030 AC PO Diphenhydramine HCl 25 MG Q6P PRN 05/19 1200 AC 06/09 PO 1025 Enoxaparin Sodium 40 MG DAILY@1500 06/02 1501 AC 06/06 SC 1427 Ferrous Sulfate 325 MG TID 05/21 1600 AC 06/09 PO 1029 Hydromorphone HCl 2 MG Q3P PRN 06/09 0945 DC 06/09 IV 06/09 0946 1022 Hydromorphone HCl 2 MG Q3P PRN 06/08 1815 DC 06/09 IV 0824 Hydromorphone HCl 2 MG Q4 HRS NEEDED PRN 06/08 1530 DC 06/08 IV 1541 Hydromorphone HCl 1 MG ONCE ONE 06/08 1300 DC 06/08 IV 06/08 1301 1210 Hydroxyzine HCl 100 MG Q6-PRN PRN 05/13 1545 AC 05/20 PO 2247 Insulin Aspart 0 AT BEDTIME 05/31 2200 AC 06/08 PR 2116 Insulin Aspart 0 TIDAC 05/31 0800 AC 06/09 SC 0826 Insulin Detemir 58 UNITS BID 06/09 1000 AC 06/09 SC 1023 Insulin Detemir 55 UNITS BID 06/06 2200 DC 06/08 SC 2115 Lidocaine 1 PAT DAILY 06/01 1000 AC 06/09 EXT 1030 Lorazepam 1 MG ONE ONE 06/09 1015 DC 06/09 PO 06/09 1016 1025 Lorazepam 0.5 MG ONCE ONE 06/08 1800 DC 06/08 IV 06/08 1801 1810 Magnesium Chloride 64 MG DAILY 05/21 1246 AC 06/09 PO 1029 Oxacillin Sodium 2,000 MG Q4H 05/23 1030 AC 06/09 Sodium Chloride 100 ML IV 06/13 2355 1031 Oxycodone HCl 15 MG Q4-6 PRN PRN 06/09 0945 AC PO Polyethylene Glycol 17 GM DAILY 06/09 1000 AC PO Pregabalin 150 MG BID 05/27 1000 AC 06/09 PO 1024 Quetiapine Fumarate 100 MG AT BEDTIME 05/28 2200 AC 06/08 PO 2116 Senna/Docusate Sodium 1 TAB BID PRN 06/09 0945 AC PO Vital Signs & I&O Last 24 Hrs of Vitals and I&O: Vital Signs Date Time Temp Pulse Resp B/P Pulse O2 O2 Flow FiO2 Ox Delivery Rate 06/09 0621 98.3 106 20 150/90 94 Room Air 06/09 06 106 150/90 06/08 2218 110 142/70 06/08 2211 98.1 113 18 172/98 98 Room Air 06/08 2116 113 172/98 06/08 1355 98.1 100 18 122/60 98 Room Air Intake & Output 06/09 1600 06/09 0800 06/09 0000 Intake Total 250 960 Output Total Balance 250 960 Intake, IV 130 260 Intake, Oral 120 700 Exam Other Physical Findings: General - Alert and awake HEENT - NCAT Cardiovascular - S1, S2 Lungs - diminished breath sounds bilaterally, left-sided central catheter, 12 Kinyarwanda indwelling pleural catheter Abdomen - soft, bowel sounds positive, no tenderness Extremities - without edema or cyanosis Results Last 24 Hrs of Lab Results: Laboratory Tests 06/09/16 0615: Anion Gap 8, Estimated GFR > 60, BUN/Creatinine Ratio 30.0 H, CBC w Diff NO MAN DIFF REQ, RBC 3.63 L, MCV 83.7, MCH 27.7, RDW 24.9 H, MPV 8.6, Gran % 58.4, Lymphocytes % 23.0, Monocytes % 6.5, Eosinophils % 11.5 H, Basophils % 0.6, Absolute Granulocytes 3.2, Absolute Lymphocytes 1.3, Absolute Monocytes 0.4, Absolute Eosinophils 0.6, Absolute Basophils 0, PUBS MCHC 33.1 Impression/Plan Impression/Plan Impression/Plan: Impression Pleural effusion on right, loculated, RLL atelectasis, RML and RUL partial atelectasis. Patchy airspace opacities. MSSA bacteremia, C.diff. Mild hydropneumothorax Plan -residual hydropneumothorax mild -pain control -can repeat cxr in a few days to a week, dc planning -DVT prophylaxis at all times
[2016-06-09 14:08] VITALS: BP 128/60
--- NOTE | 2016-06-09 16:18 | RADIOLOGY REPORT ---
EXAMINATION: XR PORTABLE CHEST CLINICAL INFORMATION: Status post pigtail catheter removal. Evaluate for pneumothorax or pleural effusion. COMPARISON: Several prior chest x-rays, most recent of which is dated 06/08/2016. CT scan of the chest dated 06/06/2016. TECHNIQUE: AP semierect portable view of the chest was obtained. FINDINGS: A left jugular central venous line is in place with tip in the proximal SVC, unchanged. The cardiomediastinal silhouette is within normal in size. There is persistent opacity seen in the right mid and lower lung with obscuration of the right hemidiaphragm, consistent with small right-sided pleural effusion and associated consolidation/collapse of the right lower lobe. Findings have not significantly changed compared to the prior exam. No significant pneumothorax is seen. The left lung is fully expanded and clear. Bony structures are unremarkable. IMPRESSION: 1. No pneumothorax seen. 2. Persistent right basilar consolidation/right lower lobe collapse and associated small right pleural effusion. Findings are similar to the previous exam.
--- NOTE | 2016-06-09 21:00 | NUR ---
LATE ENTRY NURSING NOTE: PT DUE TO HAVE US OF RLE FOR PAIN. PT REFUSING US. MD KARINA MUSTAFA AWARE.
[2016-06-09 22:25] VITALS: BP 120/80
[2016-06-10 05:43] VITALS: BP 130/60
[2016-06-10 05:44] VITALS: BP 130/60
--- NOTE | 2016-06-10 06:06 | PN- Housestaff ---
MARLENE FARFAN,MICHEL 06/10/16 0606: Subjective Follow-up For: Chronic pain syndrome Bacteremia Subjective: Patient seen and examined at bedside. No events reported overnight. Patient continues to complain of right hip/chest/flank pain but under control with the by mouth narcotics. Patient is very excited about going home today. He reports improvement in her leg swelling and pain. She continues to refuse ultrasound of 4 bilateral lower extremities however. Remains aferbile. Denies any chest pain, palpitations, short of breath, fever, chills, nausea, vomiting, abdominal pain, diarrhea. Review of Systems Constitutional: Reports: see HPI. Objective Last 24 Hrs of Vital Signs/I&O Vital Signs Date Time Temp Pulse Resp B/P Pulse O2 O2 Flow FiO2 Ox Delivery Rate 06/10 0544 106 130/60 06/10 0543 97.6 103 20 130/60 96 Nasal 3.0L Cannula 06/10 0000 98 Nasal 3.0L Cannula 06/09 2225 97.6 94 20 120/80 98 Nasal Cannula 06/09 2218 100 160/80 06/09 1408 97.9 100 18 128/60 98 Room Air Intake & Output 06/10 1600 06/10 0800 06/10 0000 Intake Total 800 1100 Output Total Balance 800 1100 Intake, IV 300 300 Intake, Oral 500 800 Physical Exam General Appearance: Alert, Oriented X3, Cooperative, No Acute Distress Other Physical Findings: Skin cellulitis on the right shoulder nearly recovered with scar formation, no oozing or drainage. No signs of infection around the Pro-line insertion site or the ex-pleural cath site, without drainage/erythema/tenderness. 4 x 2 unstageable pressure ulcer in the coccyx improving. HEENT: Mucous Membr. moist/pink Cardiovascular: Regular Rate, Normal S1, Normal S2, No Murmurs, Gallops, Rubs Pulmonary: Decreased breath sounds on the right lung. CTA on the left lung. Abdomen: Normal Bowel Sounds, Soft, Severe tenderenss in right flank. MSK: Severe pain in the right hip with limited ROM. Extremities: No Clubbing, No Cyanosis, No Edema Current Medications: Current Medications Sig/Shahla Start time Last Medication Dose Route Stop Time Status Admin Albuterol Sulfate 3 ML ONCE ONE 06/10 829 DC 06/10 INH 06/10 830 0832 Albuterol Sulfate 2 PUF Q4-6 PRN PRN 05/06 0100 DCD INH Baclofen 10 MG Q6P PRN 05/08 2030 DCD 06/02 PO 2229 Clonidine 0.1 MG Q8 05/08 2200 DCD 06/10 PO 0544 Cyclobenzaprine HCl 10 MG AT BEDTIME 05/23 2200 DCD 06/09 PO 2214 Dicyclomine HCl 20 MG 4 TIMES/DAY PRN 05/08 2030 DCD PO Diphenhydramine HCl 50 MG ONCE ONE 06/09 1815 DC 06/09 IV 06/09 1816 1843 Diphenhydramine HCl 25 MG Q6P PRN 05/19 1200 DCD 06/10 PO 1343 Enoxaparin Sodium 40 MG DAILY@1500 06/02 1501 DCD 06/06 SC 1427 Ferrous Sulfate 325 MG TID 05/21 1600 DCD 06/10 PO 1012 Furosemide 20 MG ONCE ONE 06/10 0830 DC 06/10 PO 06/10 0831 1012 Furosemide 20 MG ONCE ONE 06/09 1645 DC 06/09 PO 06/09 1646 1700 Hydroxyzine HCl 100 MG Q6-PRN PRN 05/13 1545 DCD 05/20 PO 2247 Insulin Aspart 0 AT BEDTIME 05/31 2200 DCD 06/09 SC 2215 Insulin Aspart 0 TIDAC 05/31 0800 DCD 06/10 SC 1151 Insulin Detemir 60 UNITS BID 06/09 2200 DCD 06/10 SC 1013 Insulin Detemir 58 UNITS BID 06/09 1000 DC 06/09 SC 1023 Lidocaine 1 PAT ONCE ONE 06/09 1645 DC EXT 06/09 1646 Lidocaine 1 PAT DAILY 06/09 1633 DC EXT Lidocaine 1 PAT DAILY 06/01 1000 DCD 06/10 EXT 1012 Magnesium Chloride 64 MG DAILY 05/21 1246 DCD 06/10 PO 1012 Oxacillin Sodium 2,000 MG Q4H 05/23 1030 DC 06/10 Sodium Chloride 100 ML IV 06/13 2355 1012 Oxycodone HCl 20 MG Q4-6 PRN PRN 06/09 1815 DCD 06/10 PO 1152 Oxycodone HCl 15 MG Q4-6 PRN PRN 06/09 1630 DC 06/09 PO 1659 Oxycodone HCl 15 MG Q4-6 PRN PRN 06/09 0945 DC 06/09 PO 1242 Polyethylene Glycol 17 GM DAILY 06/09 1000 DCD PO Pregabalin 150 MG BID 05/27 1000 DCD 06/10 PO 1013 Quetiapine Fumarate 25 MG TIDPRN PRN 06/09 1630 DCD 06/09 PO 1836 Quetiapine Fumarate 100 MG AT BEDTIME 05/28 2200 DCD 06/09 PO 2214 Senna/Docusate Sodium 1 TAB BID PRN 06/09 0945 DCD PO Assessment/Plan Assessment: Ms. Urias is 40-year-old female with a past medical history of osteomyelitis of pubis, necrotizing fasciitis of the perineum, hysterectomy, colostomy reversed, left renal abscess, C. difficile colitis,anxiety, depression, chronic pain disorder,chronic back pain,chronic anemia, poorly controlled IDDM 2, DKA, recent fall with minimal displaced pelvic fracture, right shoulder cellulitis s/ p incision and drainage on oxacillin to finish a course of 4 weeks (untill May 12) discharged 04/18/16, presenting with a chief complaint of worsening right pelvic and hip pain. Now found to have pulmonary findings on CTA including a large pleural effusion, concerning for pneumonia, septic embolism and lung abscess. # Right sided pleural effusion most likely due to hemothorax - CTA (05/27) showed a new large right pleural effusion with collapse of the right lung and patchy airspace opacities concerning for pneumonia. There are also severeal areas of intraparenchymal hypoattenuation and small volume gas concerning for areas of pulmonary abscess formation. In the left lung there are 6 mm subpleural nodular opacity and several nodular opacities, concerning for septic emboli. Pleural catheter inserted on 05/28 and drained liters of serosanguinous fluid consisting of a large amount of blood, most likely 2/2 hemothorax from the trauma given her recent h/o fall about 2 months ago. Catheter was removed on 06/07. - Repeat CXR (06/08): No pneumothorax is seen status-post right thoracostomy tube removal. There is persistent moderate right base airspace disease and effusion. There is a stable mild linear scar/subsegmental atelectasis at the lateral left base. * ID/Pulm/Thoracic surgery consulted, follow recs * Check CBC daily, trend WBC - WNL * Vitals per protocol, watch for fever * Encourage incentive spirometry use * Pain control as discussed below # S. aureus bacteremia Patient found to be septic on admission with fever, tachycardia and first set of blood cultures growing staph aureus. Patient was placed on vancomycin in addition to oxacillin on which patient had already been for cellulitis prior the this admission. Patient went into a septic shock on 05/06 which resolved with aggressive IVF resucsitation. Initial blood cultures and a series of repeat bcx' s grew MSSA. TTE and MONICA negative for endocarditis. Blood culture from the Pro line grew GPC before the peripheral line. This raised the suspicion that the source of infection could be from the Pro-line. Blood cultures from 05/12 growing GNR. Pro-line removed on 05/13. Tip of the catheter growing GNR, GPC, and staph coag negative. Repeat blood cultures from 05/13 and 05/15 NGTD - MRI pelvis (05/07): - Bone marrow edema within the pubic rami extending to the right acetabulum compatible with posttraumatic inflammatory change. Soft tissue edema surrounds the rami fractures without evidence of a focal, organized fluid collection in this region. Small right hip joint effusion nonspecific but possibly indicative of early infectious arthritis. New Pro-line placement on 05/20. - WBC scan (05/09): Grossly unremarkable except for moderately intense diffuse lung activity (nonspecific), possibly due to a diffuse inflammatoryprocess in the lungs * ID consulted, follow recs * Discontinue IV oxacillin * Pro line removal scheduled for 2 PM per IR. * Follow wound care recs # Poor controlled diabetes * Continue and discharged on Levemir 60U SQ BID * Novolog SSI with accuchecks -medium dose SSI # Pyuria possibly 2/2 fistula UA remakrable for a large amount of leuk esterase and WBC, and moderate epith cells. Ucx was negative. Patient currently has no urinary symptoms but CT abdomen/pelvis (05/27) showed air locules within the bladder and vagina. No h/o recent instrumentation and no evidence of signs/sxs of fistula on physical exam. - CT abd/pelvis with oral/IV/rectal contrast (05/30): No evidence of fistula or any other acute bowel pathology. Drainage catheter in place in the right pleural effusion with multiple foci of gas within the fluid. Areas of consolidation in the right lung concerning for possible atelectasis vs. pneumonia. Gas is seen within the bladder lumen, which is mostly decompressed. # Chronic pain syndrome Patient carries a hx of chronic pain disorder. Patient does have a fracture in the right hip from a fall a month ago. Ortho saw the patient and recommended conservative management without any further interventions at that time. Ortho was contacted again on 05/13 and no interventions were recommended. * Discontinued IV Dilaudid * Continue and discharged on Roxicodone to 15mg PO Q4P * Minimize IV narcotics # Anemia most likely 2/2 iron deficiency - Resolved Patient's hemoglobin dropped to 7.1 on 05/22. Hgb dropped to 6.9 despite receiving 1 unit of pRBC. She received 2 additional units with an appropriate response. [place] stool test negative. Iron studies significant for low Fe and slightly elevated TIBC. Patient was transfused a total of 3 units on 05/22. Most likely anemia of chronic disease vs. ACBL vs. Fe deficiency. * Cont iron supplementation * Transfuse if Hgb < 7 # Hyponatremia - Resolved Patient presented with a sodium level of 114 (corrected Na 122), consistent with acute on chronic hyponatremia. This is most attributable to pseudohyponatremia in the setting of hyperglycemia, possibly with a component of SIADH/sepsis/poor intake. Patient is currently has no significant neurological symptoms. Serum & urine osmolality WNL. # Mood disorders * Psych consulted, appreciate recs * Cont Seroquel at bedtime as pt finds it helpful # Diet regular diet # Moderate-Severe pain pathway # DVT prophylaxis - Lovenox # Full code Problem List: 1. Pleural effusion 2. Bacteremia 3. Right hip pain 4. Chronic pruritus 5. Pubic ramus fracture 6. Cellulitis Pain Ratin Pain Location: Right hip chest Pain Goal: Pain 4 or less Pain Plan: Moderate pain pathway Tomorrow's Labs & Rationales: None Consulting Request: Consulting Specialty: Pain Cell Maker Physician: Gerald Dunbar MD Reason for Consult: bacteremia RAFIA FARFAN,ERIBERTO 06/10/16 1303: Attending MD Review Statement Attending Statement Attending MD Statement: examined this patient, discuss w/resident/PA/MISSILE MECHANIC, agreed w/resident/PA/MISSILE MECHANIC, reviewed EMR data (avail), discussed with nursing, discussed with case mgmt, amended to note Attending Assessment/Plan: Patient seen and examined. She was actually quite jovial today. She is eager to go home. She has no new complaints today. She has been provided with referrals to outpatient pain management service and will continue on dose of OxyContin she was on prior to admission. She reports that she usually comes to the emergency room to obtain prescription for analgesia 6. We have advised her to follow-up with her primary care provider and with the pain management service. She has also been advised to follow-up with the pulmonary service as an outpatient. She will require repeat imaging to ensure that her pleural effusion is not reaccumulating. She has completed her course of antibiotic therapy and her proline will be discontinued today prior to discharge. She has been advised to return to the emergency room should she develop fever Patient noted to have mild bilateral lower extremity edema. Doppler studies have been negative. The past. She has no cough tenderness. She has been on DVT prophylaxis and is ambulatory. We are discharging her with Lasix for now 3 days and advised her to follow-up with her PCP. Noted to be wheezing elevated this morning. She did receive bronchodilator therapy and this has currently resolved. She saturating 90% on room air. She is medically stable to be discharged home today.
[2016-06-10] MEDS ORDERED: LASIX20 M1 PO ×2 (08:28→11:39)
[2016-06-10] MEDS ORDERED: LEVEMIR100 UNIT/1 SC (08:35)
--- NOTE | 2016-06-10 11:58 | PN- Infect Dx ---
Subjective Subjective: Afebrile. She continues to complain of pain at the site of the recent pleural catheter, which was removed 4 days ago. Objective Last 24 Hrs of Vital Signs/I&O Vital Signs Date Time Temp Pulse Resp B/P Pulse O2 O2 Flow FiO2 Ox Delivery Rate 06/10 0544 106 130/60 06/10 0543 97.6 103 20 130/60 96 Nasal 3.0L Cannula 06/10 0000 98 Nasal 3.0L Cannula 06/09 2225 97.6 94 20 120/80 98 Nasal Cannula 06/09 2218 100 160/80 06/09 1408 97.9 100 18 128/60 98 Room Air Intake & Output 06/10 1600 06/10 0800 06/10 0000 Intake Total 800 1100 Output Total Balance 800 1100 Intake, IV 300 300 Intake, Oral 500 800 Physical Exam Other Physical Findings: She appears comfortable in no acute distress Chest Pro-Line catheter in the left upper chest with no inflammation at the site Lungs decreased breath sounds on the right Heart regular rhythm with no murmur Extremities no cyanosis, clubbing or edema Results Last 24 Hours of Lab Results: Laboratory Tests 06/09 0615 Chemistry Sodium (137 - 145 mmol/L) 137 Potassium (3.5 - 5.1 mmol/L) 4.4 Chloride (98 - 107 mmol/L) 101 Carbon Dioxide (22 - 30 mmol/L) 28 Anion Gap (5 - 16) 8 BUN (7 - 17 mg/dL) 21 H Creatinine (0.5 - 1.0 mg/dL) 0.7 Estimated GFR (>60 ml/min) > 60 BUN/Creatinine Ratio (7 - 25 %) 30.0 H Hematology CBC w Diff NO MAN DIFF REQ WBC (4.8 - 10.8 /CUMM) 5.5 RBC (4.20 - 5.40 /CUMM) 3.63 L Hgb (12.0 - 16.0 G/DL) 10.1 L Hct (37 - 47 %) 30.4 L MCV (81.0 - 99.0 FL) 83.7 MCH (27.0 - 31.0 PG) 27.7 RDW (11.5 - 14.5 %) 24.9 H Plt Count (130 - 400 /CUMM) 214 MPV (7.4 - 10.4 FL) 8.6 Gran % (42.2 - 75.2 %) 58.4 Lymphocytes % (20.5 - 51.1 %) 23.0 Monocytes % (1.7 - 9.3 %) 6.5 Eosinophils % (0 - 5 %) 11.5 H Basophils % (0.0 - 2.0 %) 0.6 Absolute Granulocytes (1.4 - 6.5 /CUMM) 3.2 Absolute Lymphocytes (1.2 - 3.4 /CUMM) 1.3 Absolute Monocytes (0.10 - 0.60 /CUMM) 0.4 Absolute Eosinophils (0.0 - 0.7 /CUMM) 0.6 Absolute Basophils (0.0 - 0.2 /CUMM) 0 PUBS MCHC (33.0 - 37.0 G/DL) 33.1 Last 24 Hours of [place] Results: No recent cultures Recent Imaging Studies: Chest x-ray June 10 persistent opacity in the right mid and lower lung with obscuration of the right hemidiaphragm consistent with right pleural effusion and associated consolidation/collapse of the right lower lobe Assessment/Plan Impression: Overall stable status post removal of the right-sided pleural catheter 4 days ago for the hemorrhagic pleural effusion, felt possibly secondary to previous trauma. She remains afebrile with white blood cell count normal on Oxacillin now Day 57 of treatment for recurrent MSSA sepsis, felt most likely secondary to the Pro-Line catheter, which was removed 4 weeks ago, with her last positive blood cultures for Staph aureus 32 days ago and with blood cultures obtained 31 days ago negative for Staph aureus. Suggestion: 1. Await removal of the Pro-Line catheter, scheduled for later today 2. Discontinue Oxacillin and follow off antibiotics
--- NOTE | 2016-06-10 15:13 | INTERVENTIONAL RADIOLOGY RPT ---
CLINICAL HISTORY: This patient is a 40-year-old female with multiple recurrent infections, who requires removal of a proline catheter as the catheter is no longer needed. PROCEDURES: 1. Removal of central venous catheter. PHYSICIANS: Dr. Kathryn Sam (attending). MEDICATIONS: 0 mL of 1% lidocaine SQ. COMPLICATIONS: None. ESTIMATED BLOOD LOSS: <50 mL. SPECIMENS: None. CONTRAST: None. FLUOROSCOPY TIME: 0. PROCEDURE NOTE: Informed consent was obtained from the patient prior to the procedure. During this process, the procedure and potential alternatives were explained along with the intended outcome and benefits. The risks of the procedure, including the possibility of an unsuccessful procedure, as well as the risk of not doing the procedure, were discussed. The patient was given the opportunity to ask questions regarding the procedure and appeared competent to make decisions. A signed consent form documenting this discussion was placed in the medical record. A time-out procedure was performed. The patient was placed supine on the hospital bed. The catheter entry site was prepped and draped in the usual sterile fashion. The catheter was removed using traction and blunt dissection. The cuff was removed with the catheter. Direct pressure was applied at the venotomy site and along the tunnel until hemostasis was achieved. The exit site of the tunnel was covered with a sterile dressing. FINDINGS: The exit site of the catheter tunnel was non- erythematous and non- tender. IMPRESSION: Successful removal of the tunneled central venous catheter in the left chest. PLAN: 1. The patient was stable after the procedure. 2. The patient was instructed regarding wound care.
--- NOTE | 2016-06-11 15:59 | Discharge Summary ---
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 diff colitis, recurrent cellulitis, displaced fracture of right inferior pubic ramus status post fall, neck pain syndrome, and mood disorders including depression and anxiety, who presented with intractable right hip pain on 05/05/2016. On admission patient was found to septic with a fever and tachycardia. The patient was admitted to general medicine floor where she was treated and managed for the following problems with the plans as discussed below: # MSSA sepsis secondary to bacteremia and cellulitis Patient was found to be septic on admission with a fever up to 101.1 and tachycardia. The first set of blood culture grew staph aureus. Patient was placed on vancomycin in addition to oxacillin on which she had already been for cellulitis prior to this admission. Vancomycin was discontinued as the organism was identified as MSSA. Patient was continued on oxacillin through the existing Pro-Line. On May 07, the patient was persistently hypotensive with systolic BP down to 90's despite aggressive IV fluid resuscitation. She was subsequently transferred to ICU for septic shock and possible need for vasopressor infusion. In ICU, patient's blood pressure was brought up with aggressive IV fluid resuscitation and transferred back to general medical floor on May 08. Despite the antibiotic therapy the patient's repeat cultures continued to grow MSSA. She patient was presumed to have a focus of infection that she possibly seeded on her recent bacteremia, with areas of concern including the right hip s/p a recent fracture with a small effusion noted on the MRI, the heart valves, the Pro-Line catheter placed on her previous admission a month prior (though there was no inflammation at the site and it was placed after blood cultures were negative), and the spine (though the MRI did not reveal any paraspinal process). At that time transthoracic and transesophageal echocardiogram were done and showed no evidence of infective endocarditis. White blood cell scan was subsequently done on 05/09/2016 and only revealed uptake in the lungs, which was considered a nonspecific finding given its inconsistency with any clinical findings. At this point we attributed her source of infection to the Pro-Line catheter and therefore it was removed on May 13. The tip of the Pro-Line cathether was cultured and positive for staph coag negative with gram-negative rods and MSSA. Of note her blood culture drawn from the peripheral line on May 12 was positive for Enterobacter but this was considered a contaminant along with the staph negative from the tip of the Pro-Line. The repeat blood cultures from May 13 remained negative. A new Pro-Line was placed and patient received oxacillin for 52 days after which her Pro-Line was removed on 06/10/15. # Right sided pleural effusion most likely due to hemothorax On May 26 patient reported a suddneon onset of pleuritic chest pain. CTA was done to rule out pulmonary embolism. There was no evidence of PE. However the CAT scan showed marked for incidental findings including a new large right pleural effusion with collapse of the right lung and patchy airspace opacities concerning for pneumonia. There were also severeal areas of intraparenchymal hypoattenuation and small volume gas concerning for areas of pulmonary abscess formation. In the left lung there were 6 mm subpleural nodular opacity and several nodular opacities, concerning for septic emboli. However patient was afebrile with white blood cell count WNL on Oxacillin (Day 43) at that time. Pleural catheter was inserted on May 28 and drained liters of serosanguinous fluid consisting of a large amount of blood, most likely from the trauma in the setting of her recent fall about 2 months ago. Pleural fluid was suggestive of an exudate but with no evidence of infection. Catheter was removed on 06/07. Repeat CXR (06/08) showed no pneumothorax status-post right thoracostomy tube removal. However there was persistent moderate right base airspace disease and effusion. The patient was instructed to follow up with her it security consultant Dr. Brown with a repeat CXR within a week of discharge. # Acute on chronic anemia most likely 2/2 hemothorax Since the admission, patient's H/H gradually decreased, which was initially considered to be secondary to hemodilution. However her hemoglobin actuely dropped to 6.9 on May 21. She was transfused 3 unit of packed red blood cells with an appropriate response. The source of her acute anemia was unclear initially as stool guaic was negative and there was no gross bleeding from any orifice. Iron studies significant for low Fe and slightly elevated TIBC. As such she was started on iron supplements. Her anemia was later attributed to hemothorax when we incidentally found on the CTA on 05/26/2016. # Hyponatremia Patient presented with a sodium level of 114 (corrected Na 122), consistent with acute on chronic hyponatremia. This is most attributable to pseudohyponatremia in the setting of hyperglycemia, possibly with a component of SIADH/sepsis/poor intake. Patient is currently has no significant neurological symptoms. Serum & urine osmolality WNL. Her sodium level normalized with IV fluid resuscitation. # Poorly controlled diabetes Patient was noncompliant with her medications as outpatient. At home she takes Levemir 50 units twice a day. During her admission patient was initially on Levemir 20 units twice a day with NovoLog sliding scale. However her blood sugars were not adequately controlled. Her Levemir dose was increased to 60 units twice a day by the time of discharge. # Pyuria possibly 2/2 fistula UA remakrable for a large amount of leuk esterase and WBC, and moderate epith cells. Ucx was negative. Patient currently has no urinary symptoms but CT abdomen/pelvis (05/27) showed air locules within the bladder and vagina. No h/o recent instrumentation and no evidence of signs/sxs of fistula on physical exam. - CT abd/pelvis with oral/IV/rectal contrast (05/30): No evidence of fistula or any other acute bowel pathology. Drainage catheter in place in the right pleural effusion with multiple foci of gas within the fluid. Areas of consolidation in the right lung concerning for possible atelectasis vs. pneumonia. Gas is seen within the bladder lumen, which is mostly decompressed. # Chronic pain syndrome Patient carries a hx of chronic pain disorder. Patient does have a fracture in the right hip from a fall a month ago. Ortho saw the patient and recommended conservative management without any further interventions at that time. Ortho was contacted again on 05/13 and no interventions were recommended. Patient was kept on IV Dilaudid 2mg Q3 for the right sided chest pain from the effusion and for her hip pain. She refused to take any other kinds of pain medications including any narcotics by mouth during the admission. This was discontinued the day before the discharge. Patient was sent home on 15 tablets of Roxicodone to 15mg PO Q4P. She was instructed to follow up with us especially upon discharge. # Mood disorders Per psych's recommendation patient was started on Seroquel 100mg at bedtime and clonidine 0.5mg PO Q8 for anxiety. Patient occasionally requested IV Ativan stating that she might go into pending otherwise. She refused to take any other medications for her anxiety especially the ones by by mouth. Allergies: Coded Allergies: codeine (Intermediate, HIVES 05/05/16) nickel (Intermediate, RASH 05/05/16) adhesive tape (Mild, RASH 05/05/16) duloxetine (Intermediate, NAUSEA 05/05/16) hydrocodone (GI UPSET (ESOPHAGITIS) 05/05/16) ibuprofen (GI UPSET (ESOPHAGITIS) 05/05/16) Disposition Summary Disposition Principal Diagnosis: Sepsis Bacteremia Cellulitis Additional Diagnosis: Hemothorax Discharge Disposition: home or self care Discharge Instructions General Discharge Information Code Status: Full Code Patient's Diet: Diabetic Patient's Activity: As tolerated Follow-Up Instructions/Appts: 1. Please follow up with Dr. Benoit (primary care) within a week of discharge. 2. Please follow up with Dr. Batista (lung doctor), Dr. Yang (pain specialist) within a week of discharge. Please get a chest X-ray taken before you see Dr. Brown. 3. Please call and make an appointment at [facility] within a week of discharge. 4. Follow up with Dr. Camp (orthopedist) if your right hip pain persists or worsens. 5. Take medications as prescribed and instructed. Medications at Discharge Discharge Medications: Stop taking the following medications: Hydroxyzine HCl (Hydroxyzine HCl) 50 MG TABLET ORAL THREE TIMES DAILY as needed for itching Qty = 30 Ondansetron HCl (Zofran) 4 MG TABLET ORAL Every 6-8 Hours as Needed as needed for nausea Qty = 10 Continue taking these medications: Pregabalin (Lyrica) 150 MG CAPSULE 1 Capsule ORAL TWICE DAILY Comments: Last Taken:06/10/16 Time: 1000 Albuterol Sulfate (Proair Hfa) 90 MCG HFA.AER.AD 2 Puff Inhale through mouth EVERY 4-6 HOURS NEEDED as needed for SOB Comments: Last Taken: 06/10/16 Time: 1000 Propranolol HCl (Propranolol HCl) 20 MG TABLET 1 Tablet ORAL TWICE DAILY Comments: NOT TAKEN IN HOSPITAL Diphenhydramine HCl (Benadryl) 25 MG CAPSULE 1 Capsule ORAL EVERY SIX HOURS as needed for ITCHING Comments: Last Taken: 06/10/16 Time:0800 Hydrocortisone Acetate (Micort-Hc) 2.5 % CREAM.APPL 1 Application On the skin THREE TIMES DAILY Comments: NOT TAKEN IN HOSPITAL Ergocalciferol (Vitamin D2) (Drisdol) 50,000 UNIT CAPSULE 1 Capsule ORAL Once a Week Qty = 8 Instructions: Please take one of these medications every week for the next eight weeks. After that, you will be required to take one every two weeks for mainainance of your vitamin D Levels. Comments: Last Taken:NOT GIVEN IN HOSPITAL Time: Insulin Aspart (Novolog) 100 UNIT/ML VIAL 0 Inject into fatty tissue SEE INSTRUCTIONS Days = 30 Instructions: Your insulin coverage was changed while in hospital. Sliding Scale Blood Sugar Less that 80mg/dl Initiate Hypoglycemia protocol 80-150 mg/dl 12 units 151-200 mg/dl 14 units 201-250 mg/dl 16 units 251-300 mg/dl 18 units 301-350 mg/dl 20 units 351-400 mg/dl 22 units More than 400 mg/dl 24 units call MD Please check your blood sugar at least three times a day. Inform your rigging helper about this change. Comments: Last Taken:06/10/16 Time:1145 AM Oxycodone HCl (Roxicodone) 15 MG TABLET 1 Tablet ORAL EVERY 4 HOURS NEEDED as needed for SEVERE PAIN Qty = 15 Comments: Last Taken: 06/10/16 Time: 1145 This prescription has been renewed Start taking the following new medications: Furosemide (Lasix) 20 MG TABLET 1 Tablet ORAL DAILY as needed for LEG SWELLING Qty = 3 No Refills Comments: Last Taken: 06/10/16 Time: 1000 Clonidine HCl (Clonidine HCl) 0.1 MG TABLET 0.1 Milligram ORAL EVERY 8 HOURS Days = 14 No Refills Instructions: Stop if you feel lightheaded or dizzy. Stop if your systolic blood pressure is below 90. Comments: Last Taken: 06/10/16 Time: 0600 Ferrous Sulfate (Ferrous Sulfate) 325 MG (65 MG IRON) TABLET. 325 Milligram ORAL THREE TIMES DAILY Days = 30 No Refills Comments: Last Taken: 06/10/16 Time: 1000 Quetiapine Fumarate (Quetiapine Fumarate) 100 MG TABLET 100 Milligram ORAL AT BEDTIME Days = 14 No Refills Comments: Last Taken: 06/09/16 Time: 2215 Magnesium Chloride (Slow-Mag) 71.5 MG TABLET. 64 Milligram ORAL DAILY Days = 30 No Refills Comments: Last Taken: 06/10/16 Time: 1000 Baclofen (Baclofen) 10 MG TABLET 10 Milligram ORAL EVERY SIX HOURS NEEDED as needed for muscle cramp Days = 14 No Refills Comments: NOT TAKEN IN HOSPITAL The following medications have been changed: Old: Insulin Detemir (Levemir) 100 UNIT/ML VIAL 55 Units Inject into fatty tissue TWICE DAILY Days = 30 New: Insulin Detemir (Levemir) 100 UNIT/ML VIAL 60 Units Inject into fatty tissue TWICE DAILY Days = 30 Comments: Last Taken: 06/10/16 Time: 1000 Copies To: CY FARFAN,YUNG; DOMINGUEZ FARFAN,ALISHA [place]; YENNY FARFAN,JERICHO Palma MD Review Statement Documenting Attending: ERIBERTO MORATAYA M.D Other Findings: I have reviewed the discharge summary
== END 2016-06-10 13:53 | DRG 721 ==
LOC: ERH 16:12 → 2NA 19:12 → ENPENDDIS 19:12 → ERHI 19:12 → CRI 19:12 → 2NA 05-06 15:38 → CRI 05-06 20:07 → 2NA 05-07 16:41
PROVIDERS: Dermatology; Emergency Medicine; Internal Medicine; Student in an Organized Health Care Education/Training Program; ADMIT Internal Medicine
PROC: B246ZZ4 Ultrasonography of Right and Left Heart, Transesophageal (ICD-10-PCS; 2016-05-09)
PROC: 2W5 Placement, Anatomical Regions, Removal (ICD-10-PCS; 2016-05-13)
PROC: 3E04329 Introduction of Other Anti-infective into Central Vein, Percutaneous Approach (ICD-10-PCS; 2016-05-20)
PROC: B514ZZA Fluoroscopy of Left Jugular Veins, Guidance (ICD-10-PCS; 2016-05-20)
PROC: 05HN33Z Insertion of Infusion Device into Left Internal Jugular Vein, Percutaneous Approach (ICD-10-PCS; 2016-05-20)
PROC: 30233N1 Transfusion of Nonautologous Red Blood Cells into Peripheral Vein, Percutaneous Approach (ICD-10-PCS; 2016-05-22)
PROC: 0B9N30Z Drainage of Right Pleura with Drainage Device, Percutaneous Approach (ICD-10-PCS; principal; 2016-05-27)
PROC: 2W54XYZ Removal of Other Device on Chest Wall (ICD-10-PCS; 2016-06-10)
DX: T80.211A Bloodstream infection due to central venous catheter, initial encounter (principal); F19.10 Other psychoactive substance abuse, uncomplicated; E87.1 Hypo-osmolality and hyponatremia; G89.29 Other chronic pain; E11.65 Type 2 diabetes mellitus with hyperglycemia; Z79.4 Long term (current) use of insulin; Z91.14 Patient's other noncompliance with medication regimen; F11.20 Opioid dependence, uncomplicated; D69.6 Thrombocytopenia, unspecified; B36.8 Other specified superficial mycoses; F32.9 Major depressive disorder, single episode, unspecified; M60.011 Infective myositis, right shoulder; B95.61 Methicillin susceptible Staphylococcus aureus infection as the cause of diseases classified elsewhere; L98.421 Non-pressure chronic ulcer of back limited to breakdown of skin; I95.9 Hypotension, unspecified; R65.21 Severe sepsis with septic shock; S32.401A Unspecified fracture of right acetabulum, initial encounter for closed fracture; A41.01 Sepsis due to Methicillin susceptible Staphylococcus aureus; L03.312 Cellulitis of back [any part except buttock and flank]; J90 Pleural effusion, not elsewhere classified; D64.89 Other specified anemias; J94.2 Hemothorax
CPT/HCPCS: 04007; 2NAP; 75633; 87070; 87075; 87184; 87205; CCU; ERO; 36415; 73030-LT; 73030-RT; 74176; 74177; 77001; 77012; 81001; 82436; 86920; 87040; 87086; 87147; 88305; 93005; 93010; 93306; 93325; 96374; 96375; 96376; 97001-GP; 97110-GO; 97116-GO; 97161-GP; 97530-GO; 99233; A9569; C1769; G0479; G8988-GP; J0131; J0696; J1170; J1200; J1642; J1644; J1650; J1815; J2060; J2405; J2550; J2997; J3370; J3490; J7040; J7042; J7060; P9016; Q2036

== ENCOUNTER 2016-06-12 02:20 | Observation (INO) | payer OTHER ==
[~2016-06-12] VITALS: Ht 167.6 cm; Wt 95.7 kg
[~2016-06-12 02:20] MED LIST changes: +BACLOFEN10 M1 PO; +CLONIDINE HCL0.1 MG PO; +CYCLOBENZAPRINE10 M1 PO; +FERROUS SULFAT325 M2 PO; +HYDROMORPHONE HC2 M1 PO; +LASIX20 M1 PO; +QUETIAPINE FUM100 M1 PO; +SLOW-MAG71.5 MG PO
--- NOTE | 2016-06-12 02:27 | ED GI/GU/ABDOMINAL COMPLAINT ---
History of Present Illness General Chief Complaint: Nausea, Vomiting, Diarrhea Stated Complaint: NAUSEA AND VOMITING Source: patient Exam Limitations: no limitations Vital Signs & Intake/Output Vital Signs & Intake/Output Vital Signs Date Time Temp Pulse Resp B/P Pulse O2 O2 Flow FiO2 Ox Delivery Rate 06/12 0402 98.6 120 18 179/81 95 Room Air 06/12 0401 96 Room Air Allergies Coded Allergies: codeine (Intermediate, HIVES 06/12/16) nickel (Intermediate, RASH 06/12/16) adhesive tape (Mild, RASH 06/12/16) duloxetine (Intermediate, NAUSEA 06/12/16) hydrocodone (GI UPSET (ESOPHAGITIS) 06/12/16) ibuprofen (GI UPSET (ESOPHAGITIS) 06/12/16) Reconcile Medications Albuterol Sulfate (Proair Hfa) 90 MCG HFA.AER.AD 2 PUF INH Q4-6 PRN PRN SOB ( Reported) Baclofen 10 MG TABLET 10 MG PO Q6P PRN muscle cramp Clonidine HCl 0.1 MG TABLET 0.1 MG PO Q8 Anxiety Stop if you feel lightheaded or dizzy. Stop if your systolic blood pressure is below 90. Diphenhydramine HCl (Benadryl) 25 MG CAPSULE 1 CAP PO Q6 PRN ITCHING ( Reported) Ergocalciferol (Vitamin D2) (Drisdol) 50,000 UNIT CAPSULE 1 CAP PO QW Supplement Please take one of these medications every week for the next eight weeks. After that, you will be required to take one every two weeks for mainainance of your vitamin D Levels. Ferrous Sulfate 325 MG (65 MG IRON) TABLET.DR 325 MG PO TID IRON DEFICIENCY Furosemide (Lasix) 20 MG TABLET 1 TAB PO DAILY PRN LEG SWELLING Hydrocortisone Acetate (Micort-Hc) 2.5 % CREAM.APPL 1 DEMETRA TOP TID ITCHING ( Reported) Insulin Aspart (Novolog) 100 UNIT/ML VIAL 0 SC SEE ADMIN CRITERIA Diabetes Your insulin coverage was changed while in hospital. Sliding Scale Blood Sugar Less that 80mg/dl Initiate Hypoglycemia protocol 80-150 mg/dl 12 units 151-200 mg/dl 14 units 201-250 mg/dl 16 units 251-300 mg/dl 18 units 301-350 mg/dl 20 units 351-400 mg/dl 22 units More than 400 mg/dl 24 units call MD Please check your blood sugar at least three times a day. Inform your vibrator operator about this change. Insulin Detemir (Levemir) 100 UNIT/ML VIAL 60 UNITS SC BID DM Magnesium Chloride (Slow-Mag) 71.5 MG TABLET.DR 64 MG PO DAILY SUPPLEMENT Oxycodone HCl (Roxicodone) 15 MG TABLET 1 TAB PO Q4 HRS NEEDED PRN SEVERE PAIN Pregabalin (Lyrica) 150 MG CAPSULE 1 CAP PO BID NEUROPATHY (Reported) Propranolol HCl 20 MG TABLET 1 TAB PO BID ANXIETY (Reported) Quetiapine Fumarate 100 MG TABLET 100 MG PO AT BEDTIME ANXIETY/SLEEP Triage Nurses Notes Reviewed? yes ? n Is pt currently ? No Duration: day(s):, waxing and waning Timing: recent history Quality/Severity: cramping Severity Numbers: 8 Location: epigastric, generalized abdomen Radiation: no radiation Activities at Onset: none Prior Abdominal Problems: similar symptoms Modifying Factors: Worsens With: vomiting. Associated Symptoms: abdominal pain, nausea/vomiting HPI: 40-year-old woman with a history of advanced diabetes recent admission with the chest to presents with diffuse abdominal pain body aches bilious vomiting for the past several hours. She notes that she has been unable to tolerate her Roxicodone. She shares that she was discharged yesterday after having her chest tube removed. She notes slight increased work of breathing and fatigue. She notes that she has no diarrhea fever. She is otherwise well Past History Travel History Traveled to [place] past 21 day No Medical History Any Pertinent Medical History? 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 FH: cirrhosis Hx Contributory? No Review of Systems Review of Systems Constitutional: Reports: no symptoms. EENTM: Reports: no symptoms. Respiratory: Reports: no symptoms. Cardiovascular: Reports: no symptoms. GI: Reports: no symptoms. Genitourinary: Reports: no symptoms. Musculoskeletal: Reports: no symptoms. Skin: Reports: no symptoms. Neurological/Psychological: Reports: no symptoms. Hematologic/Endocrine: Reports: no symptoms. Immunologic/Allergic: Reports: no symptoms. All Other Systems: Reviewed and Negative Physical Exam Physical Exam General Appearance: well developed/nourished, moderate distress Head: atraumatic, normal appearance Eyes: Bilateral: normal appearance. Ears, Nose, Throat, Mouth: hearing grossly normal Neck: normal inspection, supple, full range of motion Respiratory: chest wall tenderness, decreased breath sounds on right. Cardiovascular: regular rate/rhythm Gastrointestinal: normal bowel sounds, soft, diffuse abdominal tenderness. no rebound. no guarding. Back: normal inspection, normal range of motion Extremities: normal range of motion Neurologic/Psych: no motor/sensory deficits, awake, alert, oriented x 3 Skin: intact, normal color Core Measures ACS in differential dx? No Severe Sepsis Present: No Septic Shock Present: No Progress Differential Diagnosis: appendicitis, biliary colic, bowel obstruction, diverticulitis, gastritis, hepatitis, hernia, ischemic bowel, inflamm bowel dis Plan of Care: Orders Procedure Date/time Status Nothing by Mouth 06/12 B Active Saline Lock 06/[address] in observation 06/12 523 Active Misc Message 06/12 523 Active ED Holding Orders 06/12 523 Active Vital Signs 06/12 523 Active Code Status 06/12 523 Active TROPONIN LEVEL 06/12 0240 Complete ACETONE 06/12 0240 Complete LACTIC ACID 06/12 0230 Complete EKG 06/129 Active LIPASE 06/12 226 Complete HEPATIC FUNCTION PANEL 06/12 226 Complete CBC WITHOUT DIFFERENTIAL 06/12 226 Complete BASIC METABOLIC PANEL 06/12 226 Complete AMYLASE 06/12 226 Complete Current Medications Sig/Shahla Start time Last Medication Dose Stop Time Status Admin Insulin Human Regular 10 UNITS ONCE ONE 06/12 05 UNVr (Novolin R Inj) 06/12 0531 Laboratory Tests 06/12/16 0240: Lactic Acid 1.8 06/12/16 0240: Anion Gap 16, Estimated GFR > 60, BUN/Creatinine Ratio 33.3 H, Glucose 387 H, Calcium 9.9, Total Bilirubin 0.8, Direct Bilirubin 0.5 H, AST 72 H, ALT 91 H, Alkaline Phosphatase 145 H, Troponin I < 0.01, Total Protein 7.7, Albumin 4.3, Amylase 32, Lipase 13 L, CBC w Diff MAN DIFF ORDERED, RBC 4.42, MCV 84.3, MCH 27.4, RDW 23.9 H, MPV 8.2, Gran % 84.7 H, Lymphocytes % 10.2 L, Monocytes % 3.0, Eosinophils % 1.7, Basophils % 0.4, Absolute Granulocytes 7.6 H, Segmented Neutrophils 90 H, Absolute Lymphocytes 0.9 L, Lymphocytes 6 L, Monocytes 1 L , Absolute Monocytes 0.3, Eosinophils 3, Absolute Eosinophils 0.2, Absolute Basophils 0, Platelet Estimate ADEQUATE, Polychromasia 1+, Hypochromic- Microcytic 1+, Poikilocytosis 1+, Ovalocytes 1+, Elliptocytes FEW, PUBS MCHC 32.5 L, Fld Total RBCs Counted 100, Acetone Level NEGATIVE 06/12/16 0229: Troponin I Cancelled Diagnostic Imaging: Viewed by Me: Radiology Read, CT Scan. Discussed w/RAD: Radiology Read, CT Scan. Radiology Impression: ct angio/abd-pelvic - increased fluid, pneumothorax... full report below. CXR Impression: decreased pleural effusion Initial ED EKG: normal axis, normal intervals, normal p-waves, normal QRS complex, normal sinus rhythm Comments: PATIENT: SIS MARTINI PRESENT AGE: 40 PATIENT ACCOUNT NO: [id number] : 76 LOCATION: [facility] ORDERING PHYSICIAN: MAYRA CALDERON MD SERVICE DATE: 06/12/16 EXAM TYPE: CAT - CT ABD & PELVIS W/O IV CONTRAS; CTA CHEST-PULMONARY EMBOLISM EXAMINATION: CT ANGIOGRAM OF THE CHEST WITH AND WITHOUT CONTRAST (CT PULMONARY ANGIOGRAM FOR PE) CT ABDOMEN AND PELVIS WITH IV CONTRAST CLINICAL INFORMATION: Dyspnea. Bilious vomiting. COMPARISON: Chest CT 06/06/[address] 05/31/2015. TECHNIQUE: Prior to contrast administration, noncontrast localization images were obtained. Subsequently, multidetector volumetric imaging was performed from the thoracic inlet to below the diaphragms following the administration of 80 mL Omnipaque 350 intravenous contrast. Additionally, a CT of the abdomen and pelvis was obtained. No contrast reaction reported Sagittal, coronal, and MIP oblique sagittal reformatted images were obtained on the CT workstation, uploaded to PACS, and reviewed. FINDINGS: CHEST: No central, lobar, or segmental pulmonary emboli. Moderate-sized right hemopneumothorax is increased in size in comparison to the 06/06/2016 CT. Associated right lower lobe collapse/consolidation. A small loculated component of pleural fluid along the lateral aspect of the right thoracic cavity is stable and fluid tracks along the major fissure. The left lung remains clear. The central airways are maintained. Thyroid gland normal. Enlarged subcarinal lymph node is stable. No additional mediastinal lymphadenopathy. The thoracic aorta is normal. No significant soft tissue findings. No acute osseous abnormalities. ABDOMEN/PELVIS: The liver, gallbladder, spleen, and adrenal glands are normal. Pancreatic atrophy is again noted. Common bile duct and intrahepatic bile ducts are normal in size. Kidneys exhibit symmetric nephrograms without hydronephrosis nor nephrolithiasis. Slightly lobulated contour of the left kidney is again noted. There is mild aortoiliac atherosclerotic calcification. No retroperitoneal lymphadenopathy. There is a moderate amount of intracolonic stool. There are no inflammatory changes adjacent to the large or the small bowel. Surgical suture surrounding the transverse colon is redemonstrated. The appendix is normal. There is no bowel obstruction. No free air and no free fluid. The uterus and adnexa are normal. Bladder is normal. Opposing endplate sclerosis at L4-L5 with associated endplate irregularity remain stable. No adjacent soft tissue effacement of fat planes. Old ununited fractures of the right inferior pubic ramus and right superior pubic ramus. IMPRESSION: - No pulmonary emboli. - Moderate-sized right hemopneumothorax is increased in size in comparison to the 06/06/2016 CT. Associated right lower lobe collapse/consolidation. A probable small loculated component of pleural fluid along the lateral aspect of the right thoracic cavity is stable and fluid tracks along the major fissure. - No acute findings within the abdomen or pelvis. DICTATED BY: DESIREE BRANHAM MD DATE/TIME DICTATED:06/12/16447 APPLICATIONS SYSTEMS ENGINEER:SHELBIE DATE/TIME TRANSCRIBED:06/12/16447 CONFIDENTIAL, DO NOT COPY WITHOUT APPROPRIATE AUTHORIZATION. <Electronically signed in Other Vendor System> SIGNED BY: DESIREE BRANHAM MD 06/12/16 0507 PATIENT: SIS MARTINI PRESENT AGE: 40 PATIENT ACCOUNT NO: [id number] : 76 LOCATION: [facility] ORDERING PHYSICIAN: MAYRA CALDERON MD SERVICE DATE: 06/12/16 EXAM TYPE: RAD - XRY-PORTABLE CHEST XRAY EXAMINATION: XR PORTABLE CHEST CLINICAL INFORMATION: Dyspnea. COMPARISON: Chest x-ray June 09 2016. TECHNIQUE: Portable view of the chest was obtained. FINDINGS: The left IJ central venous catheter has been removed. A small radiodensity projects over the medial right upper lung that may be external to the patient and should be clinically correlated. Slightly improved opacity of the right lung base most consistent with a small pleural effusion with adjacent airspace disease. Left lung remains clear. No pneumothorax. Cardiac silhouette is normal. Osseous structures stable. Old healed left rib fracture. IMPRESSION: Slightly improved opacity at the right lung base reflecting a small pleural effusion with adjacent airspace disease. A small radiodensity projects over the medial right upper lung that may be external to the patient and should be clinically correlated. DICTATED BY: DESIREE BRANHAM MD DATE/TIME DICTATED:06/12/16405 APPLICATIONS SYSTEMS ENGINEER:SHELBIE DATE/TIME TRANSCRIBED:06/12/16405 CONFIDENTIAL, DO NOT COPY WITHOUT APPROPRIATE AUTHORIZATION. <Electronically signed in Other Vendor System> SIGNED BY: DESIREE BRANHAM MD 06/12/16 0413 Departure Departure Disposition: HOME OR SELF CARE Condition: Stable Clinical Impression Primary Impression: Abdominal pain Secondary Impressions: Nausea and vomiting, Pleural effusion Referrals: YUNG BENOIT MD (PCP/Family) Departure Forms: Customer Survey General Discharge Information Observation Note Spoke With: ANGEL WOOD MD Physician Advisor Notified: DESIREE ALMARAZ DO Place Patient In: Non-ED OBS Care Area Rationale for Observation: My rational for observation is as follows . pt with large pleural effusion, recently discharged after chest tube pulled.... now with increased effusion, vomiting, pain... pt merits evaluation to consider replacing chest tube and optimize pain/medical management.
--- NOTE | 2016-06-12 02:39 | NUR ---
TRIAGE: BIBA FROM HOME S/P CHEST TUBE REMOVED HERE THURSDAY (HAD CHEST TUBE FOR INC FLUID IN LUNGS) AND WAS D/MAUREEN FROM INPATIENT ON THURSDAY. REPORTS PAIN TO ENTIRE BODY, "I DON'T LIKE THE PRINCESS, I THINK THAT'S WHATS MAKING ME +N/V." NOTED W/ APPROX 200ML GREEN BILE ON ARRIVAL. REPORTS HAS NOT HAD DILAUDID SINCE DISCHARGED. LAST TOOK PRINCESS THIS AM. EVALUATED BY MD CALDERON.
--- NOTE | 2016-06-12 02:48 | NUR ---
LABS DRAWN AND SENT BY THIS RN (SST, LAV, BLUE, DE LA ROSA)
--- NOTE | 2016-06-12 02:49 | NUR ---
PT MEDICATED WITH 2MG ATIVAN, NS LITER #1 BOLUS INFUSING, 40MG PROTONIX, 4MG ZOFRAN PER EMAR.
[2016-06-12 02:50] LABS: ABSOLUTE BASOPHIL COUNT 0 /CUMM (0.0-0.2); ABSOLUTE EOSINOPHIL COUNT 0.2 /CUMM (0.0-0.7); ABSOLUTE GRANULOCYTE CT 7.6 /CUMM (1.4-6.5); ABSOLUTE LYMPH COUNT 0.9 /CUMM (1.2-3.4); ABSOLUTE MONOCYTE COUNT 0.3 /CUMM (0.10-0.60); BASOPHIL % 0.4 % (0.0-2.0); EOSINOPHIL % 1.7 % (0-5); GRANULOCYTE % 84.7 % (42.2-75.2); MEAN CORPUSCULAR HGB 27.4 PG (27.0-31.0); MEAN CORPUSCULAR HGB CONC 32.5 G/DL (33.0-37.0); MEAN CORPUSCULAR VOLUME 84.3 FL (81.0-99.0); MEAN PLATELET VOLUME 8.2 FL (7.4-10.4); PLATELET COUNT 262 /CUMM (130-400); RBC DISTRIBUTION WIDTH 23.9 % (11.5-14.5); RED BLOOD CELL CT 4.42 /CUMM (4.20-5.40)
--- NOTE | 2016-06-12 02:53 | NUR ---
PT MEDICATED WITH 2MG DILAUDID IV PER EMAR FOR PAIN 02/24. PT YELLING "I WANT MY DILAUDID IN AN IV PUSH"
--- NOTE | 2016-06-12 02:54 | NUR ---
2MG DILAUDID HUNG IN 50ML NS OVER 30MINS INFUSING.
[2016-06-12 02:55] LABS: WHITE BLOOD CELL COUNT 8.9 /CUMM (4.8-10.8)
[2016-06-12 02:56] LABS: HEMATOCRIT 37.3 % (37-47)
--- NOTE | 2016-06-12 02:59 | NUR ---
PT MEDICATED WITH 50MG BENADRYL PER EMAR.
--- NOTE | 2016-06-12 03:15 | NUR ---
PT STILL STATING SHE IS IN "PAIN, ITS SO BAD", DR CALDERON INFORMED
--- NOTE | 2016-06-12 03:21 | NUR ---
PT MEDICATED WITH 2MG DILAUDID PER EMAR FOR PAIN 12/25.
--- NOTE | 2016-06-12 03:22 | NUR ---
2MG DILAUDID HUNG IN 50ML NS INFUSING OVER 30 MINS, PT STATES "WHY CANT I GET IT IV PUSH??"
--- NOTE | 2016-06-12 03:48 | NUR ---
PT STATING "IM STILL IN PAIN, CANT YOU DO SOMETHING AND GIVE ME IV PUSH DILAUDID, I DONT UNDERSTAND WHY YOU HAVE TO HANG IT IN A BAG WITH SALINE"
--- NOTE | 2016-06-12 03:58 | NUR ---
PT MEDICATED WITH 25 MG PHENERGEN IV INFUSING OVER 30 MINS.
--- NOTE | 2016-06-12 04:07 | NUR ---
PT MEDICATED WITH 2MG DILAUDID PER EMAR FOR PAIN 12/25.
--- NOTE | 2016-06-12 04:08 | NUR ---
2MG DILAUDID HUNG IN 50ML NS INFUSING OVER 30MINS, PT STILL COMPLAINING OF PAIN.
--- NOTE | 2016-06-12 04:13 | RADIOLOGY REPORT ---
EXAMINATION: XR PORTABLE CHEST CLINICAL INFORMATION: Dyspnea. COMPARISON: Chest x-ray June 09 2016. TECHNIQUE: Portable view of the chest was obtained. FINDINGS: The left IJ central venous catheter has been removed. A small radiodensity projects over the medial right upper lung that may be external to the patient and should be clinically correlated. Slightly improved opacity of the right lung base most consistent with a small pleural effusion with adjacent airspace disease. Left lung remains clear. No pneumothorax. Cardiac silhouette is normal. Osseous structures stable. Old healed left rib fracture. IMPRESSION: Slightly improved opacity at the right lung base reflecting a small pleural effusion with adjacent airspace disease. A small radiodensity projects over the medial right upper lung that may be external to the patient and should be clinically correlated.
--- NOTE | 2016-06-12 04:20 | NUR ---
PT TO CT SCAN
--- NOTE | 2016-06-12 05:07 | CT SCAN REPORT ---
EXAMINATION: CT ANGIOGRAM OF THE CHEST WITH AND WITHOUT CONTRAST (CT PULMONARY ANGIOGRAM FOR PE) CT ABDOMEN AND PELVIS WITH IV CONTRAST CLINICAL INFORMATION: Dyspnea. Bilious vomiting. COMPARISON: Chest CT 06/06/[address] 05/31/2015. TECHNIQUE: Prior to contrast administration, noncontrast localization images were obtained. Subsequently, multidetector volumetric imaging was performed from the thoracic inlet to below the diaphragms following the administration of 80 mL Omnipaque 350 intravenous contrast. Additionally, a CT of the abdomen and pelvis was obtained. No contrast reaction reported Sagittal, coronal, and MIP oblique sagittal reformatted images were obtained on the CT workstation, uploaded to PACS, and reviewed. FINDINGS: CHEST: No central, lobar, or segmental pulmonary emboli. Moderate-sized right hemopneumothorax is increased in size in comparison to the 06/06/2016 CT. Associated right lower lobe collapse/consolidation. A small loculated component of pleural fluid along the lateral aspect of the right thoracic cavity is stable and fluid tracks along the major fissure. The left lung remains clear. The central airways are maintained. Thyroid gland normal. Enlarged subcarinal lymph node is stable. No additional mediastinal lymphadenopathy. The thoracic aorta is normal. No significant soft tissue findings. No acute osseous abnormalities. ABDOMEN/PELVIS: The liver, gallbladder, spleen, and adrenal glands are normal. Pancreatic atrophy is again noted. Common bile duct and intrahepatic bile ducts are normal in size. Kidneys exhibit symmetric nephrograms without hydronephrosis nor nephrolithiasis. Slightly lobulated contour of the left kidney is again noted. There is mild aortoiliac atherosclerotic calcification. No retroperitoneal lymphadenopathy. There is a moderate amount of intracolonic stool. There are no inflammatory changes adjacent to the large or the small bowel. Surgical suture surrounding the transverse colon is redemonstrated. The appendix is normal. There is no bowel obstruction. No free air and no free fluid. The uterus and adnexa are normal. Bladder is normal. Opposing endplate sclerosis at L4-L5 with associated endplate irregularity remain stable. No adjacent soft tissue effacement of fat planes. Old ununited fractures of the right inferior pubic ramus and right superior pubic ramus. IMPRESSION: - No pulmonary emboli. - Moderate-sized right hemopneumothorax is increased in size in comparison to the 06/06/2016 CT. Associated right lower lobe collapse/consolidation. A probable small loculated component of pleural fluid along the lateral aspect of the right thoracic cavity is stable and fluid tracks along the major fissure. - No acute findings within the abdomen or pelvis.
--- NOTE | 2016-06-12 05:38 | NUR ---
PTS FS 277, DR CALDERON INFORMED
--- NOTE | 2016-06-12 05:47 | NUR ---
PT MEDICATED WITH 10 UNITS SC NOVOLIN REGULAR PER EMAR FOR BS 277.
--- NOTE | 2016-06-12 07:08 | NUR ---
ASSUMED CARE AT THIS TIME , PT NOTED TO BE SLEEPING AT THIS TIME , REGULAR RESP RATE NOTED. O2 SAT 98 % ON RA,
--- NOTE | 2016-06-12 07:49 | NUR ---
REPORT TO AURELIO
--- NOTE | 2016-06-12 07:51 | History & Physical ---
MAME DIXON 06/12/16 0750: General Information and HPI MD Statement: I have seen and personally examined SIS MARTINI and documented this H&P. The patient is a 40 year old F who presented with a patient stated chief complaint of nausea vomiting and intractable body aches/pain since discharge from hospital on []. 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 difficile colitis, recurrent cellulitis, displaced fracture of right inferior pubic ramus status post fall managed conservatively, neck pain syndrome, mood disorder including depression and anxiety recently discharged from [facility] on after a long hospital stay for intractable right hip pain complicated with MSSA sepsis secondary to bacteremia and cellulitis, right sided pleural effusion most likely due to hemothorax due to recent fall at that point status post chest tube placement and removed on June 07 with persistent moderate right basilar airspace disease and effusion came back this morning to ER with severe body aches along with nausea and vomiting and cannot hold her pain meds because of that. During interview patient was continuously crying and complaining of severe body pains including intractable back pain and pain abdomen. But she was denying any nausea or vomiting at that moment. She denies shortness of breath, chest pain, chills, fever, any drainage from her shoulder wound, chest tube incision wound. She denied headache or dizziness. Vital signs on admission were temperature 98.6, pulse 120, respiratory rate 18, blood pressure 179/81 and she was saturating 96% on room air. Her initial labs were WBC count 8.9, hemoglobin 12.1, hematocrit 37.3, platelet count 262, sodium 141, potassium 4.3, BUNs 20 and creatinine 0.6. Glucose was 387 and lactic as it was 1.8. Bilirubin 0.5, AST 72, AST 91 and alkaline phosphatase 145. Amylase 32 and lipase 13 Allergies/Medications Allergies: Coded Allergies: codeine (Intermediate, HIVES 06/12/16) nickel (Intermediate, RASH 06/12/16) adhesive tape (Mild, RASH 06/12/16) duloxetine (Intermediate, NAUSEA 01/26/17) hydrocodone (GI UPSET (ESOPHAGITIS) 06/12/16) ibuprofen (GI UPSET (ESOPHAGITIS) 06/12/16) Home Med list Albuterol Sulfate (Proair Hfa) 90 MCG HFA.AER.AD 2 PUF INH Q4-6 PRN PRN SOB ( Reported) Baclofen 10 MG TABLET 10 MG PO Q6P PRN muscle cramp Clonidine HCl 0.1 MG TABLET 0.1 MG PO Q8 Anxiety Stop if you feel lightheaded or dizzy. Stop if your systolic blood pressure is below 90. Diphenhydramine HCl (Benadryl) 25 MG CAPSULE 1 CAP PO Q6 PRN ITCHING ( Reported) Ergocalciferol (Vitamin D2) (Drisdol) 50,000 UNIT CAPSULE 1 CAP PO QW Supplement Please take one of these medications every week for the next eight weeks. After that, you will be required to take one every two weeks for mainainance of your vitamin D Levels. Ferrous Sulfate 325 MG (65 MG IRON) TABLET. 325 MG PO TID IRON DEFICIENCY Furosemide (Lasix) 20 MG TABLET 1 TAB PO DAILY PRN LEG SWELLING Hydrocortisone Acetate (Micort-Hc) 2.5 % CREAM.APPL 1 DEMETRA TOP TID ITCHING ( Reported) Insulin Aspart (Novolog) 100 UNIT/ML VIAL 0 SC SEE ADMIN CRITERIA Diabetes Your insulin coverage was changed while in hospital. Sliding Scale Blood Sugar Less that 80mg/dl Initiate Hypoglycemia protocol 80-150 mg/dl 12 units 151-200 mg/dl 14 units 201-250 mg/dl 16 units 251-300 mg/dl 18 units 301-350 mg/dl 20 units 351-400 mg/dl 22 units More than 400 mg/dl 24 units call MD Please check your blood sugar at least three times a day. Inform your manager mining about this change. Insulin Detemir (Levemir) 100 UNIT/ML VIAL 60 UNITS SC BID DM Magnesium Chloride (Slow-Mag) 71.5 MG TABLET. 64 MG PO DAILY SUPPLEMENT Oxycodone HCl (Roxicodone) 15 MG TABLET 1 TAB PO Q4 HRS NEEDED PRN SEVERE PAIN Pregabalin (Lyrica) 150 MG CAPSULE 1 CAP PO BID NEUROPATHY (Reported) Propranolol HCl 20 MG TABLET 1 TAB PO BID ANXIETY (Reported) Quetiapine Fumarate 100 MG TABLET 100 MG PO AT BEDTIME ANXIETY/SLEEP Compliance With Home Meds: FAIR Past History Travel History Traveled to [place] past 21 day No Medical History Neurological: NONE EENT: hearing loss Cardiovascular: NONE Respiratory: asthma, S/P CHEST TUBE 05/2016 Gastrointestinal: necrotizing fasciitis of the perineum S/P COLOSTOMY Hepatic: NONE Renal: left pararenal abscess Musculoskeletal: OSTEOMYELITIS OF PUBIS PUBIS FX Psychiatric: anxiety, chronic pain disorder, depression, opioid dependence, POLYSUBSTANCE ABUSE NARCOTIC DEPENDENCE SUICIDAL IDEATION Endocrine: INSULIN DEPENDENT DIABETES - noncompliant Blood Disorders: anemia Cancer(s): NONE 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 FH: cirrhosis Psychosocial History Who Do You Live With? with friend Primary Language: Albanian Living Will? no Power of Data Analytics Specialist/HCP? no Functional Ability ADLs Independent: dressing, eating, toileting, bathing. Ambulation: independent IADLs Independent: shopping, housework, finances, food prep, telephone, transportation , medication admin. Review of Systems Review of Systems Constitutional: Denies: chills, diaphoresis, fever. EENTM: Denies: blurred vision. Cardiovascular: Denies: chest pain, orthopena. Respiratory: Denies: cough, hemoptysis, orthopnea. GI: Reports: abdominal pain, diarrhea, nausea. Genitourinary: Denies: discharge, dysuria. Musculoskeletal: Reports: joint pain, muscle pain. Exam & Diagnostic Data Last 24 Hrs of Vital Signs/I&O Vital Signs Date Time Temp Pulse Resp B/P Pulse O2 O2 Flow FiO2 Ox Delivery Rate 06/12 0914 95 Room Air Room Air 06/12 0824 98.1 122 20 142/98 94 Room Air 06/12 0731 98.2 116 18 109/59 97 Room Air 06/12 0539 98.6 122 18 114/50 93 06/12 0402 98.6 120 18 179/81 95 Room Air 06/12 0401 96 Room Air Intake & Output 06/12 1600 06/12 0800 06/12 0000 Intake Total Output Total Balance Patient 211 lb 211 lb Weight Physical Exam General Appearance Alert, Oriented X3, Mild Distress Skin No Rashes HEENT Atraumatic Cardiovascular Normal S1, Normal S2 Lungs decreased air movement at right lung base Abdomen Soft, No Tenderness Extremities trace bilateral lower extremity edema Last 24 Hrs of Labs/Haris: Laboratory Tests 06/12/16 0530: Lactic Acid Cancelled 06/12/16 0240: Lactic Acid 1.8 06/12/16 0240: Anion Gap 16, Estimated GFR > 60, BUN/Creatinine Ratio 33.3 H, Glucose 387 H, Calcium 9.9, Total Bilirubin 0.8, Direct Bilirubin 0.5 H, AST 72 H, ALT 91 H, Alkaline Phosphatase 145 H, Troponin I < 0.01, Total Protein 7.7, Albumin 4.3, Amylase 32, Lipase 13 L, CBC w Diff MAN DIFF ORDERED, RBC 4.42, MCV 84.3, MCH 27.4, RDW 23.9 H, MPV 8.2, Gran % 84.7 H, Lymphocytes % 10.2 L, Monocytes % 3.0, Eosinophils % 1.7, Basophils % 0.4, Absolute Granulocytes 7.6 H, Segmented Neutrophils 90 H, Absolute Lymphocytes 0.9 L, Lymphocytes 6 L, Monocytes 1 L , Absolute Monocytes 0.3, Eosinophils 3, Absolute Eosinophils 0.2, Absolute Basophils 0, Platelet Estimate ADEQUATE, Polychromasia 1+, Hypochromic- Microcytic 1+, Poikilocytosis 1+, Ovalocytes 1+, Elliptocytes FEW, PUBS MCHC 32.5 L, Fld Total RBCs Counted 100, Acetone Level NEGATIVE 06/12/16 0229: Troponin I Cancelled Diagnostic Data CXR Results SERVICE DATE: 06/12/16 EXAM TYPE: RAD - XRY-PORTABLE CHEST XRAY EXAMINATION: XR PORTABLE CHEST CLINICAL INFORMATION: Dyspnea. COMPARISON: Chest x-ray June 09 2016. TECHNIQUE: Portable view of the chest was obtained. FINDINGS: The left IJ central venous catheter has been removed. A small radiodensity projects over the medial right upper lung that may be external to the patient and should be clinically correlated. Slightly improved opacity of the right lung base most consistent with a small pleural effusion with adjacent airspace disease. Left lung remains clear. No pneumothorax. Cardiac silhouette is normal. Osseous structures stable. Old healed left rib fracture. IMPRESSION: Slightly improved opacity at the right lung base reflecting a small pleural effusion with adjacent airspace disease. A small radiodensity projects over the medial right upper lung that may be external to the patient and should be clinically correlated. Other Results SERVICE DATE: 06/12/16 EXAM TYPE: CAT - CT ABD & PELVIS W/O IV CONTRAS; CTA CHEST-PULMONARY EMBOLISM EXAMINATION: CT ANGIOGRAM OF THE CHEST WITH AND WITHOUT CONTRAST (CT PULMONARY ANGIOGRAM FOR PE) CT ABDOMEN AND PELVIS WITH IV CONTRAST CLINICAL INFORMATION: Dyspnea. Bilious vomiting. COMPARISON: Chest CT 06/06/[address] 05/31/2015. TECHNIQUE: Prior to contrast administration, noncontrast localization images were obtained. Subsequently, multidetector volumetric imaging was performed from the thoracic inlet to below the diaphragms following the administration of 80 mL Omnipaque 350 intravenous contrast. Additionally, a CT of the abdomen and pelvis was obtained. No contrast reaction reported Sagittal, coronal, and MIP oblique sagittal reformatted images were obtained on the CT workstation, uploaded to PACS, and reviewed. FINDINGS: CHEST: No central, lobar, or segmental pulmonary emboli. Moderate-sized right hemopneumothorax is increased in size in comparison to the 06/06/2016 CT. Associated right lower lobe collapse/consolidation. A small loculated component of pleural fluid along the lateral aspect of the right thoracic cavity is stable and fluid tracks along the major fissure. The left lung remains clear. The central airways are maintained. Thyroid gland normal. Enlarged subcarinal lymph node is stable. No additional mediastinal lymphadenopathy. The thoracic aorta is normal. No significant soft tissue findings. No acute osseous abnormalities. ABDOMEN/PELVIS: The liver, gallbladder, spleen, and adrenal glands are normal. Pancreatic atrophy is again noted. Common bile duct and intrahepatic bile ducts are normal in size. Kidneys exhibit symmetric nephrograms without hydronephrosis nor nephrolithiasis. Slightly lobulated contour of the left kidney is again noted. There is mild aortoiliac atherosclerotic calcification. No retroperitoneal lymphadenopathy. There is a moderate amount of intracolonic stool. There are no inflammatory changes adjacent to the large or the small bowel. Surgical suture surrounding the transverse colon is redemonstrated. The appendix is normal. There is no bowel obstruction. No free air and no free fluid. The uterus and adnexa are normal. Bladder is normal. Opposing endplate sclerosis at L4-L5 with associated endplate irregularity remain stable. No adjacent soft tissue effacement of fat planes. Old ununited fractures of the right inferior pubic ramus and right superior pubic ramus. IMPRESSION: - No pulmonary emboli. - Moderate-sized right hemopneumothorax is increased in size in comparison to the 06/06/2016 CT. Associated right lower lobe collapse/consolidation. A probable small loculated component of pleural fluid along the lateral aspect of the right thoracic cavity is stable and fluid tracks along the major fissure. - No acute findings within the abdomen or pelvis. 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 difficile colitis, recurrent cellulitis, displaced fracture of right inferior pubic ramus status post fall managed conservatively, neck pain syndrome, mood disorder including depression and anxiety recently discharged from [facility] on after a long hospital stay for intractable right hip pain complicated with MSSA sepsis secondary to bacteremia and cellulitis, right sided pleural effusion most likely due to hemothorax due to recent fall at that point status post chest tube placement and removed on June 07 with persistent moderate right basilar airspace disease and effusion came back this morning to ER with severe body aches along with nausea and vomiting. CT chest showed moderate sized right hemopneumothorax which is increased in size in comparison with CAT scan on June 06. Will admit patient to general medical floor and will address following problems Problem #1 nausea and vomiting with severe body aches and abdominal pain most likely due to her underlying chronic pain syndrome -Vital signs every shift -Adequate analgesia with antiemetics, will start with IV Dilaudid and pain management consultation was requested and we will follow their recommendations. -Patient is afebrile with no leukocytosis but if in case of fever we will trend WBC count Problem #2 mildly increased right-sided hemopneumothorax status post chest tube placement and removal on June 07 -Currently patient is not short of breath without any symptoms of infection, pulmonology consultation was requested and Dr. Anne was also notified in case patient needs any chest tube placement again. Problem #3 diabetes mellitus on insulin -We will start her on 40 units subcutaneous twice a day Levemir and NovoLog sliding scale -Accu-Cheks 3 times a day and at bedtime Problem #4 history of anxiety and depression -We will continue her home medications.' Patient is full code Full liquid diet pharmacological DVT prophylaxis As Ranked By This Provider Problem List: 1. Diabetes mellitus 2. Pleural effusion 3. Nausea & vomiting Core Measures/Miscellaneous Acute Coronary Syndrome ACS Diagnosis: No Cerebrovascular Accident CVA/TIA Diagnosis: No Congestive Heart Failure CHF Diagnosis: No Venous Thromboembolism VTE Risk Factors: Acute medical illness VTE Prophylaxis Ordered Inpt: Pharm- Lovenox No Mech VTE prophylaxis d/t: No contraindications No VTE Pharm Prophylaxis d/t: No contraindications VTE Diagnosis: No VTE Type: NONE VTE Confirmed by (Test): NONE Severe Sepsis Severe Sepsis Present: No Septic Shock Septic Shock Present: No Miscellaneous Documentation Attending Case Discussed With: ANGEL WOOD MD Primary Care Physician: YUNG BENOIT MD Patient sees these Specialists Micro Photographer Level of Patient Care: General Medicine Consults Needed: Consulting Specialty: Pulmonary Disease ERIBERTO MORATAYA MD 06/12/16 1523: Attending MD Review Statement Attending Statement Attending MD Statement: examined this patient, discuss w/resident/PA/OUTSIDE MAINTENANCE WORKER, agreed w/resident/PA/OUTSIDE MAINTENANCE WORKER, reviewed EMR data (avail), discussed with nursing, discussed with case mgmt, amended to note Attending Assessment/Plan: Patient returns to the emergency room following a recent discharge from hospital with complaints of nausea vomiting and pain at the site of previous chest tube. On my evaluation she repeatedly denied any history of shortness of breath, cough or anterior chest pain. She states that she has been taking her oxycodone at home but states that she prefers utilizing Dilaudid for pain relief. She reports nausea vomiting however nursing staff on the floor have not witnessed any vomiting. She has received several doses of IV Dilaudid in the emergency room and was continued on Dilaudid IV on admission to the general medical floor. She has been seen by the pain management service this today. Their preliminary recommendations are to discontinue further use of intravenous Dilaudid. I did speak with the patient at length today with herpresent at the bedside. I did explain that she is developing a dependency to intravenous narcotics. I also explained recommendations of the pain management service. He acknowledges their recommendations and is currently requesting a rapid methadone detox. I did explain to her that these have been attempted in the past and she was readmitted and ended up on intravenous narcotics again. I did discuss going to an outpatient drug detox program. She is willing to consider this but states that transportation will be an issue for her. She would like to be rapidly weaned off narcotics him hospital however I did explain to her that she requires a more concrete long-term plan. Problems: 1. Pain syndrome 2. Right hemopneumothorax 3. Insulin-dependent diabetes mellitus 4. Chronic transaminitis 5. Tachycardia; Sinus Plan: -Follow-up full recommendations of the pain management service. -Follow-up with the social worker masters regarding outpatient alcohol rehabilitation program. -May add Lidoderm patch at the site of the previous chesttube -In the absence of any pulmonary symptoms and patient's reluctance to receive lytic therapy as documented by the pulmonary service, no further workup for her hemopneumothorax for now. She will require serial imaging for monitoring which can be done as an outpatient. -Up with her diet. If she is tolerating this change her insulin regimen to her routine home dose. For now she is on a reduced sliding scale coverage and will receive hydration with D5 half half-normal saline at 75 mL an hour. -Her viral hepatitis panel is negative. No acute hepatobiliary disease noted on CT scan. LFTs have been chronically elevated. Avoid hepatotoxic medications. Obtain right upper quadrant sonogram. -Her sinus tachy ma be secondary to her anxiety and agitation. Unklikely withdrawing from opiods as she has been recieving opiod medications.
--- NOTE | 2016-06-12 07:56 | NUR ---
PT REFUSES TO TAKE HER SWEAT PANTS OFF
[2016-06-12 08:24] VITALS: BP 142/98
--- NOTE | 2016-06-12 08:45 | NUR ---
PATIENT ARRIVED TO FLOOR, EMOTIONAL/CRYING, A+OX3. PATIENT C/O PAIN 10/10 TO BACK, MOSTLY NEAR OLD CHEST TUBE SITE. ORDERED IV DILAUDID ADMINISTERED. HR 122, MD AWARE. OTHER VVS. ORIENTED TO ROOM AND CALL HANSEN. ISOLATION PRECAUTIONS FOR VRE INTITIATED. WALKER PROVIDED FOR SAFE AMBULATION. AWAITING FURTHER ORDERS AT THIS TIME WILL CONTINUE TO MONITOR.
--- NOTE | 2016-06-12 10:15 | Cons- Pulmonary ---
General Information and HPI Consulting Request Date of Consult: 06/12/16 Requested By: Dr. Gann Reason for Consult: hydropneumothorax Source of Information: patient Exam Limitations: no limitations History of Present Illness: Consultation for hydropneumothorax. 40 year old woman recent admission for a pleural effusion that was hemorrhagic requiring a pigtail cathter drain. Remained with a residual hydropneumothorax and significant pain. Did not allow full completion of tpa/lytics. Complicated history including DM, hx of necrotizing fasciitis of perineum, OM of pubic symphysis. Multiple surgical interventions. MSSA bacteremia, currently on Oxacillin therapy second month. History of C.diff. S/p cessation of abx and removal of Proline catheter. Returns for vomiting and significant back pain including at the cathter site. No leukocytosis, CT shows a moderate-sized right hemopneumothorax is increased in size in comparison to the 06/06/2016 CT. Associated right lower lobe collapse/consolidation. A probable small loculated component of pleural fluid along the lateral aspect of the right thoracic cavity is stable and fluid tracks along the major fissure. Allergies/Medications Allergies: Coded Allergies: codeine (Intermediate, HIVES 06/12/16) nickel (Intermediate, RASH 06/12/16) adhesive tape (Mild, RASH 06/12/16) duloxetine (Intermediate, NAUSEA 06/12/16) hydrocodone (GI UPSET (ESOPHAGITIS) 06/12/16) ibuprofen (GI UPSET (ESOPHAGITIS) 06/12/16) Home Med List: Albuterol Sulfate (Proair Hfa) 90 MCG HFA.AER.AD 2 PUF INH Q4-6 PRN PRN SOB ( Reported) Baclofen 10 MG TABLET 10 MG PO Q6P PRN muscle cramp Clonidine HCl 0.1 MG TABLET 0.1 MG PO Q8 Anxiety Stop if you feel lightheaded or dizzy. Stop if your systolic blood pressure is below 90. Diphenhydramine HCl (Benadryl) 25 MG CAPSULE 1 CAP PO Q6 PRN ITCHING ( Reported) Ergocalciferol (Vitamin D2) (Drisdol) 50,000 UNIT CAPSULE 1 CAP PO QW Supplement Please take one of these medications every week for the next eight weeks. After that, you will be required to take one every two weeks for mainainance of your vitamin D Levels. Ferrous Sulfate 325 MG (65 MG IRON) TABLET.DR 325 MG PO TID IRON DEFICIENCY Furosemide (Lasix) 20 MG TABLET 1 TAB PO DAILY PRN LEG SWELLING Hydrocortisone Acetate (Micort-Hc) 2.5 % CREAM.APPL 1 DEMETRA TOP TID ITCHING ( Reported) Insulin Aspart (Novolog) 100 UNIT/ML VIAL 0 SC SEE ADMIN CRITERIA Diabetes Your insulin coverage was changed while in hospital. Sliding Scale Blood Sugar Less that 80mg/dl Initiate Hypoglycemia protocol 80-150 mg/dl 12 units 151-200 mg/dl 14 units 201-250 mg/dl 16 units 251-300 mg/dl 18 units 301-350 mg/dl 20 units 351-400 mg/dl 22 units More than 400 mg/dl 24 units call MD Please check your blood sugar at least three times a day. Inform your vice president global digital marketing about this change. Insulin Detemir (Levemir) 100 UNIT/ML VIAL 60 UNITS SC BID DM Magnesium Chloride (Slow-Mag) 71.5 MG TABLET. 64 MG PO DAILY SUPPLEMENT Oxycodone HCl (Roxicodone) 15 MG TABLET 1 TAB PO Q4 HRS NEEDED PRN SEVERE PAIN Pregabalin (Lyrica) 150 MG CAPSULE 1 CAP PO BID NEUROPATHY (Reported) Propranolol HCl 20 MG TABLET 1 TAB PO BID ANXIETY (Reported) Quetiapine Fumarate 100 MG TABLET 100 MG PO AT BEDTIME ANXIETY/SLEEP Current Medications: Current Medications Sig/Shahla Start time Last Medication Dose Route Stop Time Status Admin Acetaminophen 650 MG BID PRN 06/12 0800 AC PO Acetaminophen 1,000 MG Q6P PRN 06/12 0800 AC IV Albuterol Sulfate 2 PUF Q4-6 PRN PRN 06/12 0930 AC INH Baclofen 10 MG Q6P PRN 06/12 0930 AC PO Clonidine 0.1 MG Q8 06/12 1400 AC PO Diphenhydramine HCl 0 .STK-MED ONE 06/13 0257 DC .ROUTE Diphenhydramine HCl 25 MG Q6 PRN 06/12 0930 AC PO Diphenhydramine HCl 50 MG ONCE ONE 06/12 0300 DC 06/12 IV 06/12 0301 0258 Enoxaparin Sodium 40 MG DAILY 06/12 1000 AC SC Furosemide 20 MG DAILY PRN 06/12 0930 AC PO Hydromorphone HCl 0 .STK-MED ONE 06/13 0407 DC .ROUTE Hydromorphone HCl 0 .STK-MED ONE 06/13 0321 DC .ROUTE Hydromorphone HCl 0 .STK-MED ONE 06/13 0236 DC .ROUTE Hydromorphone HCl 1 MG Q6P PRN 06/12 0800 AC 06/12 IV 0831 Hydromorphone HCl 2 MG ONCE ONE 06/12 0415 DC 06/12 IV 06/12 0416 0407 Hydromorphone HCl 2 MG ONCE ONE 06/12 0415 DC IV 06/12 0416 Hydromorphone HCl 2 MG ONCE ONE 06/12 0315 DC 06/12 IV 06/12 0316 0321 Hydromorphone HCl 2 MG ONCE ONE 06/12 0230 DC 06/12 IV 06/12 0231 0253 Insulin Aspart 0 TIDAC 06/12 1200 AC SC Insulin Detemir 40 UNITS BID 06/12 1000 AC SC Insulin Human Regular 0 Q6 06/12 1200 CAN SC Insulin Human Regular 10 UNITS ONCE ONE 06/12 0530 DC 06/12 SC 06/12 0531 0547 Lorazepam 0 .STK-MED ONE 06/13 0236 DC .ROUTE Lorazepam 2 MG ONCE ONE 06/12 0230 DC 06/12 IV 06/12 0231 0249 Ondansetron HCl 0 .STK-MED ONE 06/13 0236 DC .ROUTE Ondansetron HCl 4 MG TID PRN 06/12 0815 AC PO Ondansetron HCl 4 MG ONCE ONE 06/12 0245 DC 06/12 IV 06/12 0246 0249 Pantoprazole Sodium 0 .STK-MED ONE 06/13 0239 DC IV Pantoprazole Sodium 40 MG ONCE ONE 06/12 0245 DC 06/12 IV 06/12 0246 0249 Pregabalin 150 MG BID 06/12 1000 AC PO Promethazine HCl 0 .STK-MED ONE 06/13 0356 DC .ROUTE Promethazine HCl 25 MG ONCE ONE 06/12 0400 DC 06/12 IV 06/12 040 0358 Propranolol HCl 20 MG BID 06/12 1000 AC PO Quetiapine Fumarate 100 MG AT BEDTIME 06/12 2200 AC PO Sodium Chloride 1,000 ML BOLUS ONE 06/12 0545 DC 06/12 IV 06/12 0644 0540 Sodium Chloride 1,000 ML BOLUS ONE 06/12 0230 DC 06/12 IV 06/12 0329 0249 Review of Systems Comments 18 point review of systems was performed and reviewed. Please see pertinent positives and pertinent negatives in the HPI. Otherwise ROS is negative. Past History Travel History Traveled to [place] past 21 day No Medical History Blood Transfusion Hx: Yes Neurological: NONE EENT: hearing loss Cardiovascular: NONE Respiratory: asthma, S/P CHEST TUBE 05/2016 Gastrointestinal: necrotizing fasciitis of the perineum S/P COLOSTOMY Hepatic: NONE Renal: left pararenal abscess Musculoskeletal: OSTEOMYELITIS OF PUBIS PUBIS FX Psychiatric: anxiety, chronic pain disorder, depression, opioid dependence, POLYSUBSTANCE ABUSE NARCOTIC DEPENDENCE SUICIDAL IDEATION Endocrine: INSULIN DEPENDENT DIABETES - noncompliant Blood Disorders: anemia Cancer(s): NONE TUBE BENDER HAND/Reproductive: ECTOPIC Other Medical Hx: Left axillary abscess secondary to MSSA status post I&D November 2014 Right deltoid abscess March 2016 secondary to MSSA Surgical History Surgical History: , hysterectomy, D&C colostomy with reversal left axillary abscess November 2014 Family History Relations & Conditions If Any: FATHER (diabetese mellitis Currently 06/16/2015- unable to get any meaningful FHx from patient, s/p drug OD.). FH: cirrhosis Psychosocial History Who Do You Live With? with friend Primary Language: Iranian Smoking Status: Former Smoker Living Will? no Power of Audio Production Instructor/HCP? no Functional Ability ADLs Independent: dressing, eating, toileting, bathing. Ambulation: independent IADLs Independent: shopping, housework, finances, food prep, telephone, transportation , medication admin. Exam & Diagnostic Data Last 24 Hrs of Vital Signs/I&O Vital Signs Date Time Temp Pulse Resp B/P Pulse O2 O2 Flow FiO2 Ox Delivery Rate 06/12 0914 95 Room Air Room Air 06/12 0824 98.1 122 20 142/98 94 Room Air 06/12 0731 98.2 116 18 109/59 97 Room Air 06/12 0539 98.6 122 18 114/50 93 06/12 0402 98.6 120 18 179/81 95 Room Air 06/12 0401 96 Room Air Intake & Output 06/12 1600 06/12 0800 06/12 0000 Intake Total Output Total Balance Patient 211 lb 211 lb Weight Physical Exam Other Physical Findings: General - Alert and awake HEENT - NCAT Cardiovascular - S1, S2 Lungs - diminished breath sounds bilaterally Abdomen - soft, bowel sounds positive, no tenderness Extremities - without edema or cyanosis Last 48 Hrs of Labs/Haris: Laboratory Tests 06/12/16 0530: Lactic Acid Cancelled 06/12/16 0240: Lactic Acid 1.8 06/12/16 0240: Anion Gap 16, Estimated GFR > 60, BUN/Creatinine Ratio 33.3 H, Glucose 387 H, Calcium 9.9, Total Bilirubin 0.8, Direct Bilirubin 0.5 H, AST 72 H, ALT 91 H, Alkaline Phosphatase 145 H, Troponin I < 0.01, Total Protein 7.7, Albumin 4.3, Amylase 32, Lipase 13 L, CBC w Diff MAN DIFF ORDERED, RBC 4.42, MCV 84.3, MCH 27.4, RDW 23.9 H, MPV 8.2, Gran % 84.7 H, Lymphocytes % 10.2 L, Monocytes % 3.0, Eosinophils % 1.7, Basophils % 0.4, Absolute Granulocytes 7.6 H, Segmented Neutrophils 90 H, Absolute Lymphocytes 0.9 L, Lymphocytes 6 L, Monocytes 1 L , Absolute Monocytes 0.3, Eosinophils 3, Absolute Eosinophils 0.2, Absolute Basophils 0, Platelet Estimate ADEQUATE, Polychromasia 1+, Hypochromic- Microcytic 1+, Poikilocytosis 1+, Ovalocytes 1+, Elliptocytes FEW, PUBS MCHC 32.5 L, Fld Total RBCs Counted 100, Acetone Level NEGATIVE 06/12/16 0229: Troponin I Cancelled Assessment/Plan Impression/Plan: Impression 40-year-old woman Plan -Residual hydropneumothorax slightly increased -The patient is hesitant into pursuing any further management of this point she has not completed a lytic therapy in the past and she is not keen on any further drainage at this point -We'll discuss with cardiothoracic surgery and obtain their opinion -DVT prophylaxis at all times Consult Acknowledgment - Thank you for your consult request.
--- NOTE | 2016-06-12 10:34 | PN- Thoracic Surgery ---
Surgical Brief Attending Note Brief Attending Note: Spoke with Dr. Brown. No indication for further intervention on Right chest. Patient is not consenting to any reintervention according to him. No thoracic surgical issues.
[2016-06-12 11:52] VITALS: BP 142/98
--- NOTE | 2016-06-12 13:34 | NUR ---
PATIENT HAS BEEN REFUSING ALL ORAL MEDS THROUGHOUT SHIFT. INCLUDING BETA BLOCKERS AND OTHER HTN MEDS, HR CONTINUES TO RUN AROUND 120, MD HILL ROSARIO AWARE OF HR AND MEDICATION REFUSAL. PT ALSO REFUSED EKG THIS AM. AWARE.
--- NOTE | 2016-06-12 16:23 | Patient Discharge Instructions ---
Discharge Instructions General Discharge Information You were seen/treated for: Pleural effusion Special Instructions: 1. Please follow up with Dr. Espinosa (primary care) within a week of discharge. 2. Please follow up with Dr. Batista (lung doctor), Dr. Yang (pain specialist) within a week of discharge. Please get a chest X-ray taken before you see Dr. Brown. 3. Please call and make an appointment at [facility] Out[facility] unit within a week of discharge. 4. Follow up with Dr. Camp (orthopedist) if your right hip pain persists or worsens. 5. Take medications as prescribed and instructed. Diet Recommended Diet: Diabetic Activity Full Activity/No Limits: Yes (as tolerated) Acute Coronary Syndrome Inclusion Criteria At DC or during hospital stay patient has or had the following: ACS DIAGNOSIS No Discharge Core Measures Meds if any: Prescribed or Continued at Discharge Meds if any: NOT Prescribed or Continued at Discharge Congestive Heart Failure Inclusion Criteria At DC or during hospital stay patient has or had the following: CHF DIAGNOSIS No Discharge Core Measures Meds if any: Prescribed or Continued at Discharge Meds if any: NOT Prescribed or Continued at Discharge Cerebrovascular accident Inclusion Criteria At DC or during hospital stay patient has or had the following: CVA/TIA Diagnosis No Discharge Core Measures Meds if any: Prescribed or Continued at Discharge Meds if any: NOT Prescribed or Continued at Discharge Venous thromboembolism Inclusion Criteria VTE Diagnosis No VTE Type NONE VTE Confirmed by (Test) NONE Discharge Core Measures - Per Current guidelines, there needs to be overlap - treatment for the first 5 days of Warfarin therapy. - If discharged on Warfarin prior to 5 days of - overlap therapy, the patient will need to be - assessed for post discharge needs including - *Post discharge parental anticoagulation - *Warfarin and/or parental anticoagulation education - *Follow up date to check INR post discharge At least 5 days overlap therapy as Inpatient No Meds if any: Prescribed or Continued at Discharge Note: Overlap Therapy is Warfarin and Anticoagulant Meds if any: NOT Prescribed or Continued at Discharge
--- NOTE | 2016-06-12 16:56 | PN- Pain Management ---
Subjective Subjective: Patient states severe lumbar spine pain as well as N/V/D. Objective Last 24 Hrs of Vital Signs/I&O Vital Signs Date Time Temp Pulse Resp B/P Pulse O2 O2 Flow FiO2 Ox Delivery Rate 06/12 1600 95 Room Air 06/12 1152 122 142/98 06/12 0914 95 Room Air Room Air 06/12 0824 98.1 122 20 142/98 94 Room Air 06/12 0731 98.2 116 18 109/59 97 Room Air 06/12 0539 98.6 122 18 114/50 93 06/12 0402 98.6 120 18 179/81 95 Room Air 06/12 0401 96 Room Air Intake & Output 06/12 1600 06/12 0800 06/12 0000 Intake Total 1500 Output Total 1200 Balance 300 Intake, Oral 1500 Output, 600 Emesis Output, Urine 600 Patient 211 lb 211 lb Weight Assessment/Plan Assessment/Recommendations: Reccommendations are as follows: - Agree with decision to D/C IV Dilaudid - D/C PO Oxycodone and trial Morphine Sulfate Immediate Release 15mg PO Q8 hours prn for severe pain - D/C Zofran and trial Reglan 10mg PO Q8 hours PRN (trial giving 30-45 minutes before MSIR). - If Reglan is non-formulary, trial zofran ODT instead of PO and trial 8mg ODT 30-45 minutes before oral opioids. - Consult with Social work. Patient may qualify for in home PT and if not, she should be referred to outpatient PT for conditioning, core strengthening, gait training, etc. I believe she was given Dr. Yang's name at the [facility] in [place], [place] for pain management but patient never followed through and made an appointment. Please refer again. Patient states she has a follow up appointment with PCP the week of 06/16/2016. - Consider consult with a systems architecture analyst/nutrition for education surrounding food choices and dieting. -Consider consult with PT. - Consider speaking with [facility] physicans to limit all benzodiazepine's and opioid scripts on discharge. Patient has filled multiple scripts for opioids and Benzos from [facility] and [facility] over the last 6 months which is reflected in CTPMP. I do not reccommend any IV or oral Opioids or Benzo's for this patient going forward at least untill she has established herself with a pain management clinic. -Scripts on D/C are not neccessary for this patient considering she has strictly been on short actings alone which do require titrating and do not cause withdrawal symtpoms.
--- NOTE | 2016-06-12 18:51 | NUR ---
EARLIER IN SHIFT PT REQUESTED TO LEAVE AMA. DUCK FARMER CALLED AND HE PRESCRIBED PO PAIN MEDS FOR PT AND SHE AGREED TO STAY. LATER IN SHIFT 1800 WENT TO RE-CHECK FOR PAIN. PT NOT IN ROOM. SEARCHED DEPARTMENT THEN CALLED CODE DEPARTURE. SENIOR CONTROLLER ALERTED US THAT PT LEFT THE BUILDING. WE CALLED [facility] POLICE BECAUSE PT MAY STILL HAVE IV IN [facility]. WE SPOKE TO DISPATCHER CONSULEO AND POLICE ARE ENROUTE TO HER ADDRESS.
--- NOTE | 2016-06-12 18:55 | NUR ---
LATE ENTRY: 1630 PT AGITATED AND ANGRY DUE TO FACT THAT SHE IS NOT GETTING IV PAIN MEDS. PT FOLLOWING DR. MORATAYA AND DRAINMAN AROUND FLOOR. ORDERED US FOR PT AND SHE REFUSED. WHEN THEY STATED THAT THEY WOULD NOT ORDER IV DILAUDID FOR HER SHE STATED TO THIS NURSE "TAKE OUT MY IV, I'M LEAVING AND I'M NOT WAiting FOR THE PAPERWORK" DRAINMAN AND MOD CALLED. DRAINMAN MICHEL CAME TO SPEAK WITH PT. PT AGREED TO GO TO DRUG REHAB IN A.M. AND TO TAKE PO ROXYCODONE 15MG PRESCRIBED AT HOME. PT AGREED TO STAY UNTIL THE MORNING TO GET SET UP WITH DRUG REHAB. PT GIVEN PO PAIN MEDS AT 1652. WILL REASSESS. PT STILL REFUSING VITALS AND BS CHECK. WILL CONTINUE TO MONITOR.
--- NOTE | 2016-06-12 20:11 | NUR ---
AT [address] [facility] NOTIFIED US THAT PT WAS FOUND AND DID NOT HAVE AN IV IN EITHER ARM. PT STATED "I TOOK IT OUT AT THE HOSPITAL AND THREW IT IN THE SHARPS CONTAINER". PT REFUSED TO COME BACK TO THE HOSPITAL.
--- NOTE | 2016-06-25 00:31 | Event Note ---
Event Note Event Note: Notified by the nursing staff around 1900 on 06/12 that patient absconded from the hospital. Patient was last seen by the staffs walking around in the hallway with the walker. She was found to be missing after about 10 minutes with the walker left near the end of 2NA. This was notified to the attending physician. Nursing hatchery supervisor was also became aware.
== END 2016-06-12 18:00 | disposition left against medical advice (07) ==
LOC: ENRESERVTM → ENRESERVDT → ERH 02:20 → ERHI 05:24 → EDBEDREQ 06:45 → 2NB 08:05
PROVIDERS: Pediatrics; ADMIT Internal Medicine
DX: J90 Pleural effusion, not elsewhere classified (principal); R11.2 Nausea with vomiting, unspecified; R10.9 Unspecified abdominal pain; E11.9 Type 2 diabetes mellitus without complications; F41.9 Anxiety disorder, unspecified; G89.29 Other chronic pain; F32.9 Major depressive disorder, single episode, unspecified; F11.20 Opioid dependence, uncomplicated; D64.9 Anemia, unspecified
CPT/HCPCS: 6040; 74176; 93005; 93010; 96365; 96366; 96375; 96376; G0378; J0131; J1200; J1650; J1815; J2405; J2550; J3101; J3490

== ENCOUNTER 2016-06-13 02:40 | Emergency (ER) | payer OTHER ==
[2016-06-13 02:47] VITALS: BP 142/93
--- NOTE | 2016-06-13 04:47 | ED GENERAL ADULT ---
History of Present Illness General Chief Complaint: Abdominal Pain/Flank Pain Stated Complaint: BIBA ABD PAIN Source: patient, old records, EMS Exam Limitations: no limitations Vital Signs & Intake/Output Vital Signs & Intake/Output Vital Signs Date Time Temp Pulse Resp B/P Pulse O2 O2 Flow FiO2 Ox Delivery Rate 06/13 0247 99.7 125 20 142/93 98 Room Air Allergies Coded Allergies: codeine (Intermediate, HIVES 06/12/16) nickel (Intermediate, RASH 06/12/16) adhesive tape (Mild, RASH 06/12/16) duloxetine (Intermediate, NAUSEA 06/12/16) hydrocodone (GI UPSET (ESOPHAGITIS) 06/12/16) ibuprofen (GI UPSET (ESOPHAGITIS) 06/12/16) Reconcile Medications Albuterol Sulfate (Proair Hfa) 90 MCG HFA.AER.AD 2 PUF INH Q4-6 PRN PRN SOB ( Reported) Baclofen 10 MG TABLET 10 MG PO Q6P PRN muscle cramp Clonidine HCl 0.1 MG TABLET 0.1 MG PO Q8 Anxiety Stop if you feel lightheaded or dizzy. Stop if your systolic blood pressure is below 90. Diphenhydramine HCl (Benadryl) 25 MG CAPSULE 1 CAP PO Q6 PRN ITCHING ( Reported) Ergocalciferol (Vitamin D2) (Drisdol) 50,000 UNIT CAPSULE 1 CAP PO QW Supplement Please take one of these medications every week for the next eight weeks. After that, you will be required to take one every two weeks for mainainance of your vitamin D Levels. Ferrous Sulfate 325 MG (65 MG IRON) TABLET.DR 325 MG PO TID IRON DEFICIENCY Furosemide (Lasix) 20 MG TABLET 1 TAB PO DAILY PRN LEG SWELLING Hydrocortisone Acetate (Micort-Hc) 2.5 % CREAM.APPL 1 DEMETRA TOP TID ITCHING ( Reported) Insulin Aspart (Novolog) 100 UNIT/ML VIAL 0 SC SEE ADMIN CRITERIA Diabetes Your insulin coverage was changed while in hospital. Sliding Scale Blood Sugar Less that 80mg/dl Initiate Hypoglycemia protocol 80-150 mg/dl 12 units 151-200 mg/dl 14 units 201-250 mg/dl 16 units 251-300 mg/dl 18 units 301-350 mg/dl 20 units 351-400 mg/dl 22 units More than 400 mg/dl 24 units call MD Please check your blood sugar at least three times a day. Inform your furniture removalist about this change. Insulin Detemir (Levemir) 100 UNIT/ML VIAL 60 UNITS SC BID DM Magnesium Chloride (Slow-Mag) 71.5 MG TABLET.DR 64 MG PO DAILY SUPPLEMENT Oxycodone HCl (Roxicodone) 15 MG TABLET 1 TAB PO Q4 HRS NEEDED PRN SEVERE PAIN Pregabalin (Lyrica) 150 MG CAPSULE 1 CAP PO BID NEUROPATHY (Reported) Propranolol HCl 20 MG TABLET 1 TAB PO BID ANXIETY (Reported) Quetiapine Fumarate 100 MG TABLET 100 MG PO AT BEDTIME ANXIETY/SLEEP Triage Note: TRIAGE: PATIENT PHILIP S/P BEING DISCHARGED FROM INPATIENT FLOOR AT 7PM TONIGHT W/ COMPLAINTS OF GENERALIZED ABDOMEN PAIN AND PAIN TO CHEST TUBE REMOVAL SITE. PATIENT REFUSING TO LET EMS / RN EVALUATE SITE. PATIENT REPORTS PAIN /, IMMEDIATLEY REQUESTING DILAUDID ON ARRIVAL. PLACED ON CONTACT PRECAUTIONS. SPOKE W/ MD JONES. PER PATIENT INPATIENT PAIN MANAGEMENT REPORT, NO IV NARCOTICS AND NO IV BENZOS TO BE ADMINISTERED IN THE ER. Triage Nurses Notes Reviewed? yes Onset: Just prior to arrival Duration: hour(s):, constant, continues in ED Timing: recent history Injury Environment: home Severity: severe Modifying Factors: Improves With: medication. Worsens With: movement. Associated Symptoms: back pain LMP (ages 10-50): unknown : No Patient currently breastfeeds: No HPI: Patient was admitted to the hospital yesterday and discharged 8 hours prior to admission. Pain management consultation was obtained with recommendations to stop IV benzodiazepine and opiate administration. She complains of continued pain about chest catheter site nausea vomiting after taking Roxicodone not improved with Zofran. She denies fever chills diarrhea shortness of breath headache dysuria rash bleeding. Past History Travel History Traveled to [place] past 21 day No Medical History Any Pertinent Medical History? see below for history Neurological: NONE EENT: hearing loss Cardiovascular: NONE Respiratory: asthma, S/P CHEST TUBE 05/2016 Gastrointestinal: necrotizing fasciitis of the perineum S/P COLOSTOMY Hepatic: NONE Renal: left pararenal abscess Musculoskeletal: OSTEOMYELITIS OF PUBIS PUBIS FX Psychiatric: anxiety, chronic pain disorder, depression, opioid dependence, POLYSUBSTANCE ABUSE NARCOTIC DEPENDENCE SUICIDAL IDEATION Endocrine: INSULIN DEPENDENT DIABETES - noncompliant Blood Disorders: anemia Cancer(s): NONE GUEST RELATION OFFICER/Reproductive: ECTOPIC Other Medical Hx: Left axillary abscess secondary to MSSA status post I&D November 2014 Right deltoid abscess March 2016 secondary to MSSA History of MRSA: No History of VRE: Yes History of CDIFF: No Surgical History Surgical History: , hysterectomy, D&C colostomy with reversal left axillary abscess November 2014 Psychosocial History Who do you live with Friend What is your primary language Bulgarian Tobacco Use: Refused to answer Family History Family History, If Any: FATHER (maritza krause Currently 06/16/2015- unable to get any meaningful FHx from patient, s/p drug OD.). FH: cirrhosis Hx Contributory? No Review of Systems Review of Systems Constitutional: Reports: no symptoms. EENTM: Reports: no symptoms. Respiratory: Reports: no symptoms. Cardiovascular: Reports: no symptoms. GI: Reports: see HPI, nausea, vomiting. Genitourinary: Reports: no symptoms. Musculoskeletal: Reports: see HPI, back pain. Skin: Reports: no symptoms. Neurological/Psychological: Reports: no symptoms. Hematologic/Endocrine: Reports: no symptoms. Immunologic/Allergic: Reports: no symptoms. All Other Systems: Reviewed and Negative Physical Exam Physical Exam General Appearance: well developed/nourished, alert, awake, anxious, moderate distress, obese Head: atraumatic, normal appearance Eyes: Bilateral: normal appearance, PERRL, EOMI. Ears, Nose, Throat: normal pharynx, normal ENT inspection Neck: normal inspection, supple, full range of motion Respiratory: normal breath sounds, no respiratory distress, decreased breath sounds, rales Cardiovascular: regular rate/rhythm, normal peripheral pulses, norml femoral pulses equa Peripheral Pulses: 4+ carotid (R), 4+ carotid (L) Gastrointestinal: soft, non-tender, no organomegaly, abnormal bowel sounds Back: decreased range of motion, no vertebral tenderness Extremities: normal inspection, normal capillary refill, normal range of motion, no edema Neurologic/Psych: no motor/sensory deficits, awake, alert, oriented x 3, normal mood/affect, kiss setter hand II-XII nml as tested Reflexes: 2+: bicep (R), bicep (L). Skin: normal color, warm/dry, patient refuses evaluation of chest tube site Lymphatic: no anterior cervical cristobal Core Measures ACS in differential dx? No CVA/TIA Diagnosis: No Severe Sepsis Present: No Septic Shock Present: No Progress Differential Diagnoses I considered the following diagnoses in my evaluation of the patient: drug seeking behavior chronic pain syndrome Plan of Care: Pain management recommendations to be upheld Phenergan IM or HI offerred and patient refused Initial ED EKG: none Departure Departure Time of Disposition: 0500 Disposition: HOME OR SELF CARE Condition: Stable Clinical Impression Primary Impression: Opiate addiction Secondary Impressions: Chronic pain syndrome, Nausea and vomiting Referrals: YUNG BENOIT MD (PCP/Family) Departure Forms: Customer Survey General Discharge Information Critical Care Note Critical Care Note Critical Care Time: non-applicable
== END 2016-06-13 05:10 ==
LOC: ERH 02:40
DX: F11.20 Opioid dependence, uncomplicated (principal); G89.4 Chronic pain syndrome; R11.2 Nausea with vomiting, unspecified

== ENCOUNTER 2016-06-17 22:10 | Emergency (ER) | payer OTHER ==
[~2016-06-17] VITALS: Ht 167.6 cm; Wt 95.7 kg
--- NOTE | 2016-06-17 22:24 | ED AMS/SEIZURE/WEAK/DIZZY ---
History of Present Illness General Chief Complaint: General Adult Stated Complaint: BIBA FOR EVAL HYPERGLYCEMIA Source: patient, old records Exam Limitations: confusion Vital Signs & Intake/Output Vital Signs & Intake/Output Vital Signs Date Time Temp Pulse Resp B/P Pulse O2 O2 Flow FiO2 Ox Delivery Rate 06/18 0641 96.8 89 18 133/98 98 Room Air 06/17 2255 Room Air 06/17 2213 97.6 118 16 194/86 100 Room Air ED Intake and Output 06/18 0000 06/17 1200 Intake Total 0 Output Total Balance 0 Intake, Oral 0 Patient 211 lb Weight Allergies Coded Allergies: codeine (Intermediate, HIVES 06/17/16) nickel (Intermediate, RASH 06/17/16) adhesive tape (Mild, RASH 06/17/16) duloxetine (Intermediate, NAUSEA 06/17/16) hydrocodone (GI UPSET (ESOPHAGITIS) 06/17/16) ibuprofen (GI UPSET (ESOPHAGITIS) 06/17/16) Reconcile Medications Albuterol Sulfate (Proair Hfa) 90 MCG HFA.AER.AD 2 PUF INH Q4-6 PRN PRN SOB ( Reported) Baclofen 10 MG TABLET 10 MG PO Q6P PRN muscle cramp Clonidine HCl 0.1 MG TABLET 0.1 MG PO Q8 Anxiety Stop if you feel lightheaded or dizzy. Stop if your systolic blood pressure is below 90. Diphenhydramine HCl (Benadryl) 25 MG CAPSULE 1 CAP PO Q6 PRN ITCHING ( Reported) Ergocalciferol (Vitamin D2) (Drisdol) 50,000 UNIT CAPSULE 1 CAP PO QW Supplement Please take one of these medications every week for the next eight weeks. After that, you will be required to take one every two weeks for mainainance of your vitamin D Levels. Ferrous Sulfate 325 MG (65 MG IRON) TABLET.DR 325 MG PO TID IRON DEFICIENCY Furosemide (Lasix) 20 MG TABLET 1 TAB PO DAILY PRN LEG SWELLING Hydrocortisone Acetate (Micort-Hc) 2.5 % CREAM.APPL 1 DEMETRA TOP TID ITCHING ( Reported) Insulin Aspart (Novolog) 100 UNIT/ML VIAL 0 SC SEE ADMIN CRITERIA Diabetes Your insulin coverage was changed while in hospital. Sliding Scale Blood Sugar Less that 80mg/dl Initiate Hypoglycemia protocol 80-150 mg/dl 12 units 151-200 mg/dl 14 units 201-250 mg/dl 16 units 251-300 mg/dl 18 units 301-350 mg/dl 20 units 351-400 mg/dl 22 units More than 400 mg/dl 24 units call MD Please check your blood sugar at least three times a day. Inform your early childhood aide classroom about this change. Insulin Detemir (Levemir) 100 UNIT/ML VIAL 60 UNITS SC BID DM Magnesium Chloride (Slow-Mag) 71.5 MG TABLET.DR 64 MG PO DAILY SUPPLEMENT Oxycodone HCl (Roxicodone) 15 MG TABLET 1 TAB PO Q4 HRS NEEDED PRN SEVERE PAIN Pregabalin (Lyrica) 150 MG CAPSULE 1 CAP PO BID NEUROPATHY (Reported) Propranolol HCl 20 MG TABLET 1 TAB PO BID ANXIETY (Reported) Quetiapine Fumarate 100 MG TABLET 100 MG PO AT BEDTIME ANXIETY/SLEEP Triage Note: BIBA FROM HOME FOR HTN AND HYPERGLYCEMIA. FINGERSTICK IN 500'S BY EMS. UPON ARRIVAL BP 194/86, HR 118. ANSWERING MOST QUESTIONS APPROPRIATELY Triage Nurses Notes Reviewed? yes Onset: UNKNOWN Duration: unknown duration Injury Environment: home No Modifying Factors: none HPI: 40-year-old female comes into emergency room with unknown complaint. Patient is confused in the room and is not sure exactly why she is here. Disoriented 2. Patient is not really able to offer any type of information. Denies any pain currently. (OLGA GUNN) Past History Travel History Traveled to [place] past 21 day No Medical History Any Pertinent Medical History? 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 FH: cirrhosis Hx Contributory? No (OLGA GUNN) Review of Systems Review of Systems Constitutional: Reports: no symptoms. EENTM: Reports: no symptoms. Respiratory: Reports: no symptoms. Cardiovascular: Reports: no symptoms. GI: Reports: no symptoms. Genitourinary: Reports: no symptoms. Musculoskeletal: Reports: no symptoms. Skin: Reports: no symptoms. Neurological/Psychological: Reports: see HPI. Hematologic/Endocrine: Reports: no symptoms. Immunologic/Allergic: Reports: no symptoms. All Other Systems: Reviewed and Negative (OLGA GUNN) Physical Exam Physical Exam General Appearance: well developed/nourished, no apparent distress, alert, awake Head: atraumatic, normal appearance Eyes: Bilateral: normal appearance, EOMI. Ears, Nose, Throat: normal pharynx, normal ENT inspection, hearing grossly normal Neck: normal inspection, full range of motion Respiratory: normal breath sounds, no respiratory distress Cardiovascular: regular rate/rhythm, tachycardia Gastrointestinal: soft Back: normal inspection Extremities: normal range of motion Neurologic/Psych: DISORIENTED 2 Skin: intact, normal color Core Measures ACS in differential dx? No CVA/TIA Diagnosis: No Severe Sepsis Present: No Septic Shock Present: No (OLGA GUNN) Progress Differential Diagnosis: arrythmia, alcohol intoxication, anemia, benign positional vertigo, dehydration, drug intoxication, encephalitis, electrolyte imbalance Plan of Care: Orders Procedure Date/time Status Straight Cath 06/18 0237 Active AMMONIA LEVEL 06/17 2352 Complete URINE DRUGS OF ABUSE 06/17 2335 Complete URINALYSIS 06/17 2335 Complete LACTIC ACID 06/17 2224 Complete COMPREHENSIVE METABOLIC PANEL 06/17 222 Complete CBC WITHOUT DIFFERENTIAL 06/17 2222 Complete EKG 06/17 2222 Active Laboratory Tests 06/18/16 0243: Urine Opiates Screen < 100.00, Methadone Screen < 40, Barbiturate Screen < 60, Ur Phencyclidine Scrn > 72.00 H, Amphetamines Screen < 100, U Benzodiazepines Scrn < 85, Urine Cocaine Screen < 50, Urine Cannabis Screen 8.90, Urinalysis LIGHT H, Urine Color STRAW, Urine Clarity CLDY H, Urine pH 6.5, Ur Specific Brutus 1.010, Urine Protein 30 H, Urine Ketones NEG, Urine Nitrite NEG, Urine Bilirubin NEG, Urine Urobilinogen 0.2, Ur Leukocyte Esterase SMALL H, Ur Microscopic SEDIMENT EXAMINED, Urine RBC 3-5, Urine WBC 5-10 H, Ur Epithelial Cells MANY H, Urine Mucus FEW, Urine Hemoglobin TRACE-INTACT, Urine Glucose >= 1000 H 06/18/16 0124: Lactic Acid Cancelled 06/18/16 0000: Ammonia 9 06/17/16 2304: Lactic Acid 2.1 06/17/16 2304: Anion Gap 12, Estimated GFR > 60, BUN/Creatinine Ratio 30.0 H, Glucose 603 *H, Calcium 9.7, Total Bilirubin 0.6, AST 29, ALT 53 H, Alkaline Phosphatase 157 H , Total Protein 7.6, Albumin 4.4, Globulin 3.2, Albumin/Globulin Ratio 1.4, CBC w Diff NO MAN DIFF REQ, RBC 4.62, MCV 83.4, MCH 27.3, RDW 20.2 H, MPV 7.9, Gran % 77.6 H, Lymphocytes % 12.6 L, Monocytes % 4.5, Eosinophils % 5.0, Basophils % 0.3, Absolute Granulocytes 7.9 H, Absolute Lymphocytes 1.3, Absolute Monocytes 0.5, Absolute Eosinophils 0.5, Absolute Basophils 0, PUBS MCHC 32.8 L Initial ED EKG: normal intervals, normal p-waves, normal sinus rhythm, rate (108 ) Hand-Off Endorsed To: RYAN TYLER MD Endorsed Time: 101 Pending: labs (ZOE JOSHI,OLGA) Comments: Patient admits to taking extra narcotic pain medication. I did discuss with the patient that per the plan of her last discharge she was to quickly taper off the narcotic medication. Patient stated that she has a problem and that is why she has been taking extra. Patient denies any suicidal ideations. 06/18/16 0640: Patient is awake alert and oriented. Patient walks with a steady gait. Patient is stable for discharge. (RYAN TYLER MD) Departure Departure Disposition: STILL A PATIENT Condition: Stable Clinical Impression Primary Impression: Hyperglycemia Referrals: CY MD,YUNG (PCP/Family) Departure Forms: Customer Survey General Discharge Information Comments 06/18/2016 12:35:31 AM Patient is being IV hydrated with subcutaneous insulin. (ZOE JOSHI,OLGA) Departure Additional Instructions: RETURN IF SYMPTOMS WORSEN OR FOR ANY CONCERNS (NAYELI FARFAN,RYAN Rodriguez)
[2016-06-17 23:15] LABS: ABSOLUTE BASOPHIL COUNT 0 /CUMM (0.0-0.2); ABSOLUTE EOSINOPHIL COUNT 0.5 /CUMM (0.0-0.7); ABSOLUTE GRANULOCYTE CT 7.9 /CUMM (1.4-6.5); ABSOLUTE LYMPH COUNT 1.3 /CUMM (1.2-3.4); ABSOLUTE MONOCYTE COUNT 0.5 /CUMM (0.10-0.60); BASOPHIL % 0.3 % (0.0-2.0); GRANULOCYTE % 77.6 % (42.2-75.2); HEMATOCRIT 38.6 % (37-47); MEAN CORPUSCULAR HGB 27.3 PG (27.0-31.0); MEAN CORPUSCULAR HGB CONC 32.8 G/DL (33.0-37.0); MEAN CORPUSCULAR VOLUME 83.4 FL (81.0-99.0); MEAN PLATELET VOLUME 7.9 FL (7.4-10.4); PLATELET COUNT 248 /CUMM (130-400); RBC DISTRIBUTION WIDTH 20.2 % (11.5-14.5); RED BLOOD CELL CT 4.62 /CUMM (4.20-5.40); WHITE BLOOD CELL COUNT 10.2 /CUMM (4.8-10.8)
[2016-06-18 06:41] VITALS: BP 133/98
== END 2016-06-18 07:07 ==
LOC: ERH 22:10
PROVIDERS: Physician Assistant Medical
DX: E11.65 Type 2 diabetes mellitus with hyperglycemia (principal); R41.0 Disorientation, unspecified; Z91.14 Patient's other noncompliance with medication regimen
CPT/HCPCS: 80307; 81001; 93005; 93010; 96360; 96372; J1815

== ENCOUNTER 2016-06-19 19:20 | Emergency (ER) | payer OTHER ==
[~2016-06-19] VITALS: Ht 167.6 cm; Wt 113.4 kg
--- NOTE | 2016-06-19 19:46 | ED MVC/FALL/TRAUMA COMPLAINT ---
History of Present Illness General Chief Complaint: General Adult Stated Complaint: BACK PAIN Source: patient, old records, EMS Exam Limitations: no limitations Vital Signs & Intake/Output Vital Signs & Intake/Output Vital Signs Date Time Temp Pulse Resp B/P Pulse O2 O2 Flow FiO2 Ox Delivery Rate 06/20 0324 98.6 98 18 150/90 98 Room Air 06/19 2136 97.9 101 18 185/100 97 Room Air 06/19 1929 99.6 120 20 166/98 98 Room Air ED Intake and Output 06/20 0000 06/19 1200 Intake Total 1620 Output Total Balance 1620 Intake, IV 1500 Intake, Oral 120 Patient 250 lb Weight Allergies Coded Allergies: codeine (Intermediate, HIVES 06/17/16) nickel (Intermediate, RASH 06/17/16) adhesive tape (Mild, RASH 06/17/16) duloxetine (Intermediate, NAUSEA 06/17/16) hydrocodone (GI UPSET (ESOPHAGITIS) 06/17/16) ibuprofen (GI UPSET (ESOPHAGITIS) 06/17/16) Reconcile Medications Albuterol Sulfate (Proair Hfa) 90 MCG HFA.AER.AD 2 PUF INH Q4-6 PRN PRN SOB ( Reported) Baclofen 10 MG TABLET 10 MG PO Q6P PRN muscle cramp Clonidine HCl 0.1 MG TABLET 0.1 MG PO Q8 Anxiety Stop if you feel lightheaded or dizzy. Stop if your systolic blood pressure is below 90. Diphenhydramine HCl (Benadryl) 25 MG CAPSULE 1 CAP PO Q6 PRN ITCHING ( Reported) Ergocalciferol (Vitamin D2) (Drisdol) 50,000 UNIT CAPSULE 1 CAP PO QW Supplement Please take one of these medications every week for the next eight weeks. After that, you will be required to take one every two weeks for mainainance of your vitamin D Levels. Ferrous Sulfate 325 MG (65 MG IRON) TABLET.DR 325 MG PO TID IRON DEFICIENCY Furosemide (Lasix) 20 MG TABLET 1 TAB PO DAILY PRN LEG SWELLING Hydrocortisone Acetate (Micort-Hc) 2.5 % CREAM.APPL 1 DEMETRA TOP TID ITCHING ( Reported) Insulin Aspart (Novolog) 100 UNIT/ML VIAL 0 SC SEE ADMIN CRITERIA Diabetes Your insulin coverage was changed while in hospital. Sliding Scale Blood Sugar Less that 80mg/dl Initiate Hypoglycemia protocol 80-150 mg/dl 12 units 151-200 mg/dl 14 units 201-250 mg/dl 16 units 251-300 mg/dl 18 units 301-350 mg/dl 20 units 351-400 mg/dl 22 units More than 400 mg/dl 24 units call MD Please check your blood sugar at least three times a day. Inform your ferry hand about this change. Insulin Detemir (Levemir) 100 UNIT/ML VIAL 60 UNITS SC BID DM Magnesium Chloride (Slow-Mag) 71.5 MG TABLET.DR 64 MG PO DAILY SUPPLEMENT Oxycodone HCl (Roxicodone) 15 MG TABLET 1 TAB PO Q4 HRS NEEDED PRN SEVERE PAIN Pregabalin (Lyrica) 150 MG CAPSULE 1 CAP PO BID NEUROPATHY (Reported) Propranolol HCl 20 MG TABLET 1 TAB PO BID ANXIETY (Reported) Quetiapine Fumarate 100 MG TABLET 100 MG PO AT BEDTIME ANXIETY/SLEEP Triage Note: PT BIBA FROM HOME C/O CONSTANT LOW BACK PAIN S/P FALL 6 WEEKS AGO. ADI Benítez IN TO [facility] PT Triage Nurses Notes Reviewed? yes Onset: Abrupt Duration: week(s): (1), constant, getting worse Timing: recent history Severity: severe Severity Numbers: 10 Injuries/Fall Location: pelvis Method of Injury: fall Loss of Consciousness: no loss of consciousness No Modifying Factors: none Associated Symptoms: denies : No Patient currently breastfeeds: No HPI: 40 year old female with past medical history including poorly controlled insulin -dependent diabetes type 2, DKA, necrotizing fasciitis of the perineum of the perineum with osteomyelitis of the pubic symphysis, MSSA sepsis secondary to pararenal abscess, C. diff colitis, recurrent cellulitis, displaced fracture of right inferior pubic ramus status post fall, neck pain syndrome, and mood disorders including depression and anxiety who presents brought in by ambulance complaining of exacerbation of her chronic right hip pain after she fell 6 weeks ago sustaining a displaced right inferior pubic rami fracture for which she's been seen numerous times in the past for. The patient ambulates at home with a walker there's been no recent new injury or fall. The patient denies any shortness of breath chest pain abdominal pain nausea vomiting or diarrhea however on arrival patient's blood sugars noted to be 500. She is been compliant with her medications for diabetes no fevers no chills she does not take any medications at home for her pain because she states she "does not want to go through withdrawal" there are no modifying factors or associated symptoms otherwise. (ANALI CURRY) Past History Travel History Traveled to [place] past 21 day No Medical History Any Pertinent Medical History? 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 FH: cirrhosis Hx Contributory? No (ANALI CURRY) Review of Systems Review of Systems Constitutional: Reports: see HPI. All Other Systems: Reviewed and Negative Comments Review of systems: See HPI, All other systems negative. Constitutional, no chills no fever, no malaise no weight loss HEENT: No visual changes no sore throat no congestion, no ear pain Cardiovascular: No chest pain , no palpitation , no orthopnea no ankle swelling Skin, no jaundice no rashes, no change in skin Respiratory: No dyspnea no cough no sputum no hemoptysis GI: No nausea no vomiting, no diarrhea, no bloating/constipation : No dysuria No hematuria, no frequency, no discharge Muscle skeletal: Chronic joint pain, no joint swelling, no back pain, no neck pain, Neurologic: No numbness no headache Psych: No stress Heme/endocrine: No bruising no bleeding Immunology: No lymphadenopathy (ANALI CURRY) Physical Exam Physical Exam General Appearance: well developed/nourished, no apparent distress, alert Comments: Well-developed well-nourished person in no acute distress HEENT: Normal EENT exam; PERRL, EOMI, HEAD is atraumatic. moist mucous membranes. Neck: Supple, no lymphadenopathy, normal range of motion Back: Nontender, no CVA tenderness. Full range of motion Cardiovascular: Regular rate and rhythms no murmurs rubs Respiratory: Chest nontender.There were no bony deformities, no asymmetry. No respiratory distress. Patient speaking in full complete sentences. Breath sounds clear to auscultation bilaterally: NO W/R/R Abdomen: Soft, nontender nondistended, no appreciable organomegaly. Normal bowel sounds. No rebound/guarding Extremity: No edema, full range of motion of extremities, normal and equal pulses bilaterally, 5 out of 5 strength noted to bilateral upper and lower extremities Neuro: Alert oriented x3, motor sensory normal,. There were no obvious focal neurologic abnormalities. Skin: No appreciable rash on exposed skin, skin is warm and dry. Psych: Mood and affect is normal, memory and judgment is normal. Core Measures ACS in differential dx? No Severe Sepsis Present: No Septic Shock Present: No (ANALI CURRY) Progress Differential Diagnosis: C/T/L spine injury, ext injury, DKA, HHS, ELECTROLYTE ABNORMALITY, CHRONIC PAIN Plan of Care: Orders Procedure Date/time Status SERUM OSMOLALITY 06/19 1936 Complete ACETONE 06/19 1936 Complete Saline Lock 06/19 1934 Active HUMAN BETA HCG SCREEN 06/19 1934 Complete COMPREHENSIVE METABOLIC PANEL 06/19 1934 Complete CBC WITHOUT DIFFERENTIAL 06/19 1934 Complete Current Medications Sig/Shahla Start time Last Medication Dose Stop Time Status Admin Hydromorphone HCl 1 MG ONCE ONE 06/19 2214 CAN (Dilaudid) 06/19 2215 Laboratory Tests 06/19/161940: Serum Osmolality 329 H 06/19/161940: Anion Gap 9, Estimated GFR > 60, BUN/Creatinine Ratio 24.3, Glucose 760 *H, Calcium 9.6, Total Bilirubin 0.6, AST 54 H, ALT 64 H, Alkaline Phosphatase 161 H, Total Protein 7.1, Albumin 4.0, Globulin 3.1, Albumin/Globulin Ratio 1.3, Total Beta HCG NEGATIVE, CBC w Diff NO MAN DIFF REQ, RBC 4.74, MCV 83.5, MCH 27.2, RDW 20.3 H, MPV 7.9, Gran % 75.2, Lymphocytes % 10.5 L, Monocytes % 5.7, Eosinophils % 8.0 H, Basophils % 0.6, Absolute Granulocytes 4.7, Absolute Lymphocytes 0.7 L, Absolute Monocytes 0.4, Absolute Eosinophils 0.5, Absolute Basophils 0, PUBS MCHC 32.6 L, Acetone Level NEGATIVE Old records reviewed labs ordered IV fluids running for elevated sugar Discussed with patient all her lab results to date she states she has been compliant with her insulin. She's been seen numerous times in the past and most recently last week for uncontrolled diabetes patient reports pain is improved with Dilaudid I discussed with her her CT findings blood sugar is responding with insulin and fluids, case d/w dr jones Patient attempted ambulation here in the emergency room with unstable gait worsening pain secondary to chronic hip pain will place patient in ED observation for PT consult in the morning (ROMY JOSHI,ANALI) Diagnostic Imaging: Viewed by Me: CT Scan. Discussed w/RAD: CT Scan. Radiology Impression: PATIENT: SIS MARTINI PRESENT AGE: 40 PATIENT ACCOUNT NO: [id number] : 76 LOCATION: [facility] ORDERING PHYSICIAN: ANALI JOSHI SERVICE DATE: 06/19/16 EXAM TYPE: CAT - CT PELVIS WO IV CONTRAST EXAMINATION: CT PELVIS WITHOUT CONTRAST CLINICAL INFORMATION: Pubic rami fracture with worsening hip pain. COMPARISON: 05/31/2016 TECHNIQUE: Helical scanning was performed with submillimeter collimation through the pelvis. Sagittal and coronal multiplanar 2-D reconstructions were obtained. DLP: 1030 mGy-cm. FINDINGS: There has been some callus formation along the inferior pubic ramus fracture as well as a fracture at the junction of the acetabulum and superior pubic ramus although no osseous bridging is evident. Otherwise, no significant change again noting extensive endplate erosions and sclerosis at L4-L5 and marked arthritis of the pubic symphysis. Normal appendix. IMPRESSION: 1. Some callus formation although no osseous bridging is demonstrated of the right pubic fractures. 2. Again demonstrated are marked arthritic changes of the pubic symphysis and endplate sclerosis and erosions at L4-L5, potentially sites of treated or chronic infection. DICTATED BY: EDUIN ARENAS MD DATE/TIME DICTATED:06/19/162115 STAFF AIR DEFENSE OFFICER: SHELBIE DATE/TIME TRANSCRIBED:06/19/162115 CONFIDENTIAL, DO NOT COPY WITHOUT APPROPRIATE AUTHORIZATION. <Electronically signed in Other Vendor System> SIGNED BY: EDUIN ARENAS MD 06/19/162129 (ANALI CURRY) Comments: Multiple episodes demanding narcotics. Found lying in her vomit, urine and feces. Ambulates about ED without walker. (NBA JONES MD) Departure Departure Time of Disposition: 2338 Referrals: YUNG BENOIT MD (PCP/Family) Observation Note Spoke With: NBA JONES MD Place Patient In: ED Observation Rationale for Observation: My rational for observation is as follows patient with worsening pain requiring multiple rounds of IV pain medication given patient is a fall risk premature discharge would BE medically harmful will require PT consult (ANALI CURRY) Departure Time of Disposition: 313 Disposition: HOME OR SELF CARE Condition: Stable Clinical Impression Primary Impression: Hip pain Qualifiers: Laterality: unspecified laterality Qualified Code: M25.559 - Pain in unspecified hip Secondary Impressions: Drug-seeking behavior Gait instability Hyperglycemia Pubic ramus fracture Qualifiers: Encounter type: subsequent encounter Laterality: unspecified laterality Fracture healing: with delayed healing Qualified Code: S32.599G - Other specified fracture of unspecified pubis, subsequent encounter for fracture with delayed healing Departure Forms: General Discharge Information PA/ENVIRONMENTAL TECHNICAL OFFICER Co-Sign Statement Statement: ED Attending supervision documentation- x I saw and evaluated the patient. I have also reviewed all the pertinent lab results and diagnostic results. I agree with the findings and the plan of care as documented in the PA's/ENVIRONMENTAL TECHNICAL OFFICER's documentation. [] I have reviewed the ED Record and agree with the PA's/ENVIRONMENTAL TECHNICAL OFFICER's documentation. [] Additions or exceptions (if any) to the PAs/ENVIRONMENTAL TECHNICAL OFFICER's note and plan are summarized below: [] (NBA JONES MD)
[2016-06-19 19:55] LABS: ABSOLUTE BASOPHIL COUNT 0 /CUMM (0.0-0.2); ABSOLUTE EOSINOPHIL COUNT 0.5 /CUMM (0.0-0.7); ABSOLUTE GRANULOCYTE CT 4.7 /CUMM (1.4-6.5); ABSOLUTE LYMPH COUNT 0.7 /CUMM (1.2-3.4); ABSOLUTE MONOCYTE COUNT 0.4 /CUMM (0.10-0.60); BASOPHIL % 0.6 % (0.0-2.0); GRANULOCYTE % 75.2 % (42.2-75.2); HEMATOCRIT 39.5 % (37-47); MEAN CORPUSCULAR HGB 27.2 PG (27.0-31.0); MEAN CORPUSCULAR HGB CONC 32.6 G/DL (33.0-37.0); MEAN CORPUSCULAR VOLUME 83.5 FL (81.0-99.0); MEAN PLATELET VOLUME 7.9 FL (7.4-10.4); PLATELET COUNT 218 /CUMM (130-400); RBC DISTRIBUTION WIDTH 20.3 % (11.5-14.5); RED BLOOD CELL CT 4.74 /CUMM (4.20-5.40); WHITE BLOOD CELL COUNT 6.3 /CUMM (4.8-10.8)
--- NOTE | 2016-06-19 21:30 | CT SCAN REPORT ---
EXAMINATION: CT PELVIS WITHOUT CONTRAST CLINICAL INFORMATION: Pubic rami fracture with worsening hip pain. COMPARISON: 05/31/2016 TECHNIQUE: Helical scanning was performed with submillimeter collimation through the pelvis. Sagittal and coronal multiplanar 2-D reconstructions were obtained. DLP: 1030 mGy-cm. FINDINGS: There has been some callus formation along the inferior pubic ramus fracture as well as a fracture at the junction of the acetabulum and superior pubic ramus although no osseous bridging is evident. Otherwise, no significant change again noting extensive endplate erosions and sclerosis at L4-L5 and marked arthritis of the pubic symphysis. Normal appendix. IMPRESSION: 1. Some callus formation although no osseous bridging is demonstrated of the right pubic fractures. 2. Again demonstrated are marked arthritic changes of the pubic symphysis and endplate sclerosis and erosions at L4-L5, potentially sites of treated or chronic infection.
[2016-06-20 03:24] VITALS: BP 150/90
== END 2016-06-20 03:28 ==
LOC: ERH 19:20
PROVIDERS: Physician Assistant Medical
DX: S32.509A Unspecified fracture of unspecified pubis, initial encounter for closed fracture (principal); R73.9 Hyperglycemia, unspecified; R26.81 Unsteadiness on feet; Z76.5 Malingerer [conscious simulation]; W19.XXXA Unspecified fall, initial encounter
CPT/HCPCS: 96361; 96372; 96374; J1815

== ENCOUNTER 2016-07-27 23:31 | Inpatient (IN) | payer OTHER ==
[~2016-07-27] VITALS: Ht 167.6 cm; Wt 119.9 kg
--- NOTE | 2016-07-27 23:38 | NUR ---
PT BIBA FROM HOME C/O R HIP PAIN/PELVIC PAIN. PT HAS HX OF PELVIC FRACTURE AND FELL AGAIN THURSDAY. PT REPORTS BEING UNABLE TO WALK SINCE. PT CRYING UPON ARRIVAL TO ER SPEAKING TO THIS RN AND STATING "I WAS HOPING I COULD JUST GET A CAT SCAN, IT SHOWS IT BETTER, MEDICINE THROUGH THE IV AND TO BE ADMITTED.
--- NOTE | 2016-07-27 23:38 | NUR ---
PT SMELLS OF URINE. REFUSING TO LET THIS RN CHANGE HER.
--- NOTE | 2016-07-27 23:43 | ED UPPER/LOWER EXTREMITY COMPL ---
See Addendum History of Present Illness General Chief Complaint: Hip Injury Stated Complaint: BIBA RIGHT HIP PAIN Source: patient, old records, EMS Exam Limitations: no limitations Vital Signs & Intake/Output Vital Signs & Intake/Output Vital Signs Date Time Temp Pulse Resp B/P Pulse O2 O2 Flow FiO2 Ox Delivery Rate 07/28 0521 98.3 113 20 126/58 97 Room Air 07/27 2343 Room Air 07/27 2336 96.4 112 22 120/57 97 Room Air ED Intake and Output 07/28 0000 07/27 1200 Intake Total 0 Output Total Balance 0 Intake, Oral 0 Patient 211 lb Weight Allergies Coded Allergies: codeine (Intermediate, HIVES 06/17/16) nickel (Intermediate, RASH 06/17/16) adhesive tape (Mild, RASH 06/17/16) duloxetine (Intermediate, NAUSEA 06/17/16) hydrocodone (GI UPSET (ESOPHAGITIS) 06/17/16) ibuprofen (GI UPSET (ESOPHAGITIS) 06/17/16) Triage Note: PT BIBA FROM HOME C/O R HIP PAIN/PELVIC PAIN. PT HAS HX OF PELVIC FRACTURE AND FELL AGAIN THURSDAY. PT REPORTS BEING UNABLE TO WALK SINCE. PT CRYING UPON ARRIVAL TO ER SPEAKING TO THIS RN AND STATING "I WAS HOPING I COULD JUST GET A CAT SCAN, IT SHOWS IT BETTER, MEDICINE THROUGH THE IV AND TO BE ADMITTED. Triage Nurses Notes Reviewed? yes Onset: Abrupt Duration: day(s): Timing: recent history Severity: moderate Pain/Injury Location: Right: Hip. Method of Injury: fall Modifying Factors: Worsens With: movement. Associated Symptoms: right hip/pelvic pain HPI: 40 yo woman, h/o chronic pain, presents after a fall 3 days ago. "I had a pelvis fracture and I think I broke it again... It really hurts and I can't walk." She states that she has been spending most of her time in bed. (KVNG FARFAN,MAYRA Welsh) Reconcile Medications Albuterol Sulfate (Proair Hfa) 90 MCG HFA.AER.AD 2 PUF INH Q4-6 PRN PRN SOB ( Reported) Diphenhydramine HCl (Benadryl) 25 MG CAPSULE 1 CAP PO Q6 PRN ITCHING ( Reported) Ergocalciferol (Vitamin D2) (Drisdol) 50,000 UNIT CAPSULE 1 CAP PO QW Supplement Please take one of these medications every week for the next eight weeks. After that, you will be required to take one every two weeks for mainainance of your vitamin D Levels. Hydrocortisone Acetate (Micort-Hc) 2.5 % CREAM.APPL 1 DEMETRA TOP TID ITCHING ( Reported) Insulin Aspart (Novolog) 100 UNIT/ML VIAL 0 SC SEE ADMIN CRITERIA Diabetes Your insulin coverage was changed while in hospital. Sliding Scale Blood Sugar Less that 80mg/dl Initiate Hypoglycemia protocol 80-150 mg/dl 12 units 151-200 mg/dl 14 units 201-250 mg/dl 16 units 251-300 mg/dl 18 units 301-350 mg/dl 20 units 351-400 mg/dl 22 units More than 400 mg/dl 24 units call MD Please check your blood sugar at least three times a day. Inform your skin pass operator about this change. Insulin Detemir (Levemir) 100 UNIT/ML VIAL 60 UNITS SC BID DM Pregabalin (Lyrica) 150 MG CAPSULE 1 CAP PO BID NEUROPATHY (Reported) Propranolol HCl 20 MG TABLET 1 TAB PO BID ANXIETY (Reported) Quetiapine Fumarate 100 MG TABLET 100 MG PO AT BEDTIME ANXIETY/SLEEP (KAREN FARFAN,NBA) Past History Travel History Traveled to [place] past 21 day No Medical History Any Pertinent Medical History? 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 FH: cirrhosis Hx Contributory? No (KVNG FARFAN,MAYRA Welsh) Review of Systems Review of Systems Constitutional: Reports: no symptoms. EENTM: Reports: no symptoms. Respiratory: Reports: no symptoms. Cardiovascular: Reports: no symptoms. Gastrointestinal/Abdominal: Reports: no symptoms. Genitourinary: Reports: no symptoms. Musculoskeletal: Reports: no symptoms. Skin: Reports: no symptoms. Neurological/Psychological: Reports: no symptoms. Hematologic/Endocrine: Reports: no symptoms. Immunological: Reports: no symptoms. All Other Systems: Reviewed and Negative (KVNG FARFAN,MAYRA Welsh) Physical Exam Physical Exam General Appearance: well developed/nourished, mild distress Head: atraumatic Eyes: Bilateral: normal appearance. Ears, Nose, Throat: normal pharynx, normal ENT inspection, hearing grossly normal Neck: normal inspection, supple Cardiovascular/Respiratory: regular rate/rhythm Back: normal inspection Hip Right: diffuse pain in right groin area. no rotation. 2+ distal pulse. Skin: intact, normal color, warm/dry Lymphatic: no anterior cervical cristobal (KVNG FARFAN,MAYRA Welsh) Progress Differential Diagnosis: contusion, dislocation, fracture Plan of Care: Orders Procedure Date/time Status Consistent Carbohydrate 2 07/28 B Active COMPREHENSIVE METABOLIC PANEL 07/28 0630 Active CBC WITHOUT DIFFERENTIAL 07/28 729 Active ACETONE 07/28 07 Active Continuous Observation Monitor 07/28 0615 Active Continuous Observation Monitor 07/28 214 Active ED CRISIS PSYCH CONSULT 07/28 214 Active Diagnostic Imaging: Viewed by Me: CT Scan. Discussed w/RAD: CT Scan. Radiology Impression: abd/pelvic ct... no acute fx... likely hematomas... full report below. Hand-Off Endorsed To: NBA JONES MD Endorsed Time: 0700 Pending: consult Comments: PATIENT: SIS MARTINI PRESENT AGE: 40 PATIENT ACCOUNT NO: [id number] : 76 LOCATION: [facility] ORDERING PHYSICIAN: MAYRA CALDERON MD SERVICE DATE: 07/27/169063 EXAM TYPE: CAT - CT PELVIS WO IV CONTRAST EXAMINATION: CT PELVIS WITHOUT CONTRAST CLINICAL INFORMATION: Fall with history of pubic rami fracture. Question new fracture. COMPARISON: CT from 06/19/2016 TECHNIQUE: Helical scanning was performed with submillimeter collimation through the pelvis. Sagittal and coronal multiplanar 2-D reconstructions were obtained. DLP: 1271 mGy-cm FINDINGS: PELVIS: There is a prominent collection, likely a hematoma, in the right hemipelvis with mass effect upon the bladder. This measures approximately 9.3 x 5.4 x 10.7 cm. There is additional asymmetric thickening of the right iliopsoas muscle. This is suggestive of hemorrhage. These findings are new when compared to the prior CT. The bladder is partially distended without wall thickening. The uterus and adnexa are unremarkable. The visualized bowel is unremarkable. No lymphadenopathy. OSSEOUS STRUCTURES: There is a comminuted right superior pubic ramus fracture with extension to the acetabulum. A fracture line remains present. There is partial interval healing since the prior study, with bony bridging seen and increased callus formation. There is also evidence of partial healing of the inferior pubic ramus fracture on the right. Diffuse heterogeneous ossification is seen at the pubic symphysis, similar to prior. There is no acute fracture. There is increased sclerosis of the right pubic rami. Prominent endplate changes are seen at L4-L5 which are similar to prior. There is associated sclerosis. The sacroiliac joints are intact. The femoral heads are well-seated within their acetabula. Mild degenerative changes are seen bilaterally. IMPRESSION: 1. Fractures of the right superior and inferior pubic rami are again noted with partial interval healing since the prior study. No acute fractures are seen. Increased sclerosis at the right pubic rami is nonspecific. An infectious process is difficult to exclude. 2. New appearance of a right pelvic collection with mass effect upon the bladder. This likely represents hematoma in the setting of fracture. There is also hematoma of the right iliopsoas. 3. Chronic changes at L4-L5 disc space. DICTATED BY: JONAS MOON MD DATE/TIME DICTATED:07/28/1616 DYNAMICS AX DEVELOPER:SHELBIE DATE/TIME TRANSCRIBED:07/28/1616 CONFIDENTIAL, DO NOT COPY WITHOUT APPROPRIATE AUTHORIZATION. <Electronically signed in Other Vendor System> SIGNED BY: JONAS MOON MD 07/28 0028 (KVNG FARFANMAYRA) Hand-Off Endorsed To: DESIREE ALMARAZ DO Endorsed Time: 0700 Pending: consult (crisis, case mgmt, PT) (KAREN FARFAN,NBA) Departure Departure Disposition: HOME OR SELF CARE Condition: Stable Clinical Impression Primary Impression: Fall Secondary Impressions: Hematoma, Pubic ramus fracture Referrals: YUNG BENOIT MD (PCP/Family) Departure Forms: Customer Survey General Discharge Information (KVNG FARFAN,MAYRA Welsh) Departure Comments 07/28/16 7 am The patient was signed out to me by Dr. Camacho. She is pending evaluation by crisis. (DESIREE ALMARAZ DO)
--- NOTE | 2016-07-27 23:57 | NUR ---
PT TO CAT SCAN VIA STRETCHER
--- NOTE | 2016-07-28 00:20 | NUR ---
PT SHOUTING FOR THE NURSES AND "I NEED SOMEONE TO GIVE ME PAIN MEDICATION." "I NEED A SHOT!" PT REDIRECTED TO STOP YELLING, PROVIDED WITH WATER BY FATOU AND MP DE OLIVEIRA.
--- NOTE | 2016-07-28 00:28 | CT SCAN REPORT ---
EXAMINATION: CT PELVIS WITHOUT CONTRAST CLINICAL INFORMATION: Fall with history of pubic rami fracture. Question new fracture. COMPARISON: CT from 06/19/2016 TECHNIQUE: Helical scanning was performed with submillimeter collimation through the pelvis. Sagittal and coronal multiplanar 2-D reconstructions were obtained. DLP: 1271 mGy-cm FINDINGS: PELVIS: There is a prominent collection, likely a hematoma, in the right hemipelvis with mass effect upon the bladder. This measures approximately 9.3 x 5.4 x 10.7 cm. There is additional asymmetric thickening of the right iliopsoas muscle. This is suggestive of hemorrhage. These findings are new when compared to the prior CT. The bladder is partially distended without wall thickening. The uterus and adnexa are unremarkable. The visualized bowel is unremarkable. No lymphadenopathy. OSSEOUS STRUCTURES: There is a comminuted right superior pubic ramus fracture with extension to the acetabulum. A fracture line remains present. There is partial interval healing since the prior study, with bony bridging seen and increased callus formation. There is also evidence of partial healing of the inferior pubic ramus fracture on the right. Diffuse heterogeneous ossification is seen at the pubic symphysis, similar to prior. There is no acute fracture. There is increased sclerosis of the right pubic rami. Prominent endplate changes are seen at L4-L5 which are similar to prior. There is associated sclerosis. The sacroiliac joints are intact. The femoral heads are well-seated within their acetabula. Mild degenerative changes are seen bilaterally. IMPRESSION: 1. Fractures of the right superior and inferior pubic rami are again noted with partial interval healing since the prior study. No acute fractures are seen. Increased sclerosis at the right pubic rami is nonspecific. An infectious process is difficult to exclude. 2. New appearance of a right pelvic collection with mass effect upon the bladder. This likely represents hematoma in the setting of fracture. There is also hematoma of the right iliopsoas. 3. Chronic changes at L4-L5 disc space.
--- NOTE | 2016-07-28 01:00 | NUR ---
PATIENT NOTED TO BE YELLING IN ROOM, SCREAMING "NURSE!! I NEED HELP!!" THIS RN TO BEDSIDE, PATIENT YELLING REQUESTING WATER. PATIENT INFORMED THAT YELLING WILL NOT BE TOLERATED, PATIENT NOW APOLOGETIC. WATER PROVIDED. WHEN THIS RN WALKED OUT OF ROOM AFTER PROVIDING WATER, PATIENT THEN BEGAN YELLING AGAIN, THIS RN RETURNED TO ROOM, PATIENT STATES "SORRY, I CAN'T TALK. I NEED MILK." PATIENT INFORMED AGAIN THAT YELLNIG WILL NOT BE TOLERATED. PATIENT APOLOGETIC AGAIN. TV AND LIGHTS ALSO TURNED OFF PER REQUEST.
--- NOTE | 2016-07-28 01:27 | NUR ---
PT MEDICATED WITH GI COCKTAIL PER EMAR.
--- NOTE | 2016-07-28 01:29 | NUR ---
AFTER THIS RN WALKED OUT OF ROOM FROM MEDICATED PT WITH GI COCKTAIL PT YELLING "I NEED AN IV FOR PAIN MEDS." AWARE.
--- NOTE | 2016-07-28 01:32 | NUR ---
PER PT WILL BE HELD IN ED FOR REMAINDER OF THE NIGHT TO SEE CASE MANAGMENT AND PHYSICAL THERAPY IN THE MORNING.
--- NOTE | 2016-07-28 01:45 | NUR ---
PT ASSISTED TO BED MOROCHO. VOIDED APPROX 400 CCS CLEAR YELLOW URINE. NOW ALLOWED THIS RN TO CHANGE HER. PT YELLING AT THIS RN, DEMANDING I BRING HER "50MG BENADRYL AND 30MG ROXICODONE NOW." LINEN CHANGED AND PT CONTINUES TO YELL "JUST BRING ME MILK." MILK PROVIDED.
--- NOTE | 2016-07-28 01:46 | NUR ---
PT NOW SCREAMING FOR SOMETHING FOR HEARTBURN. REMINDED THAT PT WAS JUST GIVEN GI COCKTAIL AND IT NEEDS TIME TO WORK.
--- NOTE | 2016-07-28 02:20 | NUR ---
PT STATED "IF I DO NOT GET PAIN MEDS I WILL KILL MYSELF AND HAVE A PANIC ATTACK." ASKED PT IF HOMICIDAL, PT DENIES. MD CALDERON AWARE. SECURITY, THIS RN AND ÁNGEL RN WENT INTO ROOM TO WAND AND CHANGE PT AND DISCUSS PLAN. PT SCREAMING "I DID NOT MEAN IT, I DID NOT MEAN IT, I DO NOT WANT TO ." ÁNGEL GRESHAM AND THIS RN EXPLAINED THESE COMMENTS ARE TAKEN SERIOUSLY AND THEREFORE SHE HAS TO SPEAK WITH CRISIS. PT CHANGED INTO HOSPITAL GOWN D/T INJURED R LEG AND PHYSICAL THERAPY EVAL BY THIS RN AND ÁNGEL GRESHAM WITH SECURITY AT BEDSIDE FOR ASSISTANCE. PT WANDED AND MOVED TO [facility]. COOPERATIVE ABOUT TRANSFER. YELLING FOR PEGGYL AT THIS TIME. 2 BELONGINGS IN CLOSET.
--- NOTE | 2016-07-28 02:48 | NUR ---
REPORT TO THIS RN TAKEN, PATIENT TO GRACIE Bill SPEAKING W/ AMY GRESHAM. PATIENT YELLING, AWARE THAT YELLING WILL NOT BE TOLERATED. PATIENT NOW QUIET. SITTERS REMAIN W/ PATIENT.
--- NOTE | 2016-07-28 03:03 | NUR ---
PATIENT YELLING FOR DR. CALDERON AGAIN. MD CALDERON AT BEDSIDE. PATIENT INFORMED BY MD THAT BENADRYL PO HAD BEEN ORDERED, PATIENT STATES "I CAN'T TAKE PILLS BECAUSE I'M ALLERGIC!" MD INFORMED PATIENT THAT MED WILL BE GIVEN LIQUID, NO INJECTIONS WILL BE GIVEN PER MD.
--- NOTE | 2016-07-28 03:30 | NUR ---
PATIENT MEDICATED W/ BENADRYL 50MG PO LIQUID PER EMAR. TOLERATED WELL. PATIENT NOW ASKING FOR MILK, ADDITIONAL MILK PROVIDED.
--- NOTE | 2016-07-28 04:08 | NUR ---
PATIENT NOW CRYING AND YELLING IN HALLWAY, RN TO BEDSIDE. PATIENT STATES "I NEED A BEDPAN, I CAN'T WALK." PATIENT TAKEN TO ROOM 11 BY STRETCHER TO BE PLACED ON BEDPAN BY RNS.
--- NOTE | 2016-07-28 04:11 | NUR ---
PATIENT VOIDED APPROX 200ML INTO BEDPAN. APTIENT TAKEN BACK TO BOWMAN BY ANILA RICHARD REMAIN W/ PATIENT.
--- NOTE | 2016-07-28 05:14 | NUR ---
PT MEDICATED WITH 975MG ACETAMINOPHEN FOR PAIN PER EMAR
--- NOTE | 2016-07-28 07:05 | NUR ---
PATIENT AWAKE X APPROX 30 SECONDS AT THIS TIME, YELLING, THIS RN TO BEDSIDE. PATIENT REPORTS "NEED TO USE BEDPAN!" RN IMMEDIATLEY WENT TO ROOM TO MOVE STRETCHER FOR PATIENT PRIVACY W/ MST PARRISH AND PATIENT NOTED TO HAVE BEEN INCONTINENT OF URINE ON STRETCHER AND ON FLOOR D/T "LONG WAIT." ENVIRONMENTAL CALLED.
--- NOTE | 2016-07-28 07:30 | NUR ---
ASSUMED CARE, ACCU CHECK GREATER THAN 500, DR. ALMARAZ AWARE. REQUESTING PAIN MEDICATION.
--- NOTE | 2016-07-28 07:58 | NUR ---
andrea drawn and sent to lab
--- NOTE | 2016-07-28 07:59 | NUR ---
LABS DRAWN, ( 2 SST'S, 1 BLUE, 1 RICHARDSON).
[2016-07-28 08:04] LABS: ABSOLUTE BASOPHIL COUNT 0 /CUMM (0.0-0.2); ABSOLUTE EOSINOPHIL COUNT 0.1 /CUMM (0.0-0.7); ABSOLUTE GRANULOCYTE CT 13.1 /CUMM (1.4-6.5); ABSOLUTE LYMPH COUNT 0.5 /CUMM (1.2-3.4); ABSOLUTE MONOCYTE COUNT 0.2 /CUMM (0.10-0.60); BASOPHIL % 0.1 % (0.0-2.0); EOSINOPHIL % 0.8 % (0-5); GRANULOCYTE % 94.2 % (42.2-75.2); HEMATOCRIT 38.8 % (37-47); MEAN CORPUSCULAR HGB 26.2 PG (27.0-31.0); MEAN CORPUSCULAR HGB CONC 32.6 G/DL (33.0-37.0); MEAN CORPUSCULAR VOLUME 80.3 FL (81.0-99.0); MEAN PLATELET VOLUME 8.6 FL (7.4-10.4); PLATELET COUNT 180 /CUMM (130-400); RBC DISTRIBUTION WIDTH 17.5 % (11.5-14.5); RED BLOOD CELL CT 4.84 /CUMM (4.20-5.40); WHITE BLOOD CELL COUNT 13.9 /CUMM (4.8-10.8)
--- NOTE | 2016-07-28 08:49 | NUR ---
CRITICAL TEST RESULTS [id number] SIS MARTINI 40 F TESTS AND RESULTS: GLUCOSE 619 Results received and read back by: GEOVANNY NICHOLS Results received date and time: 07/28/16 0849 The following provider was notified of the results, and read the results back: DR. HANSEN Notified date and time: 07/28/16 at 0850
--- NOTE | 2016-07-28 09:33 | ED CARE PLAN ---
Plan of Care - Opiate analgesics and benzodiazepines should only be utilized if there is objective criteria to necessitate their use.
--- NOTE | 2016-07-28 09:51 | NUR ---
IV ATTEMPTED X 2, UNSUCCESSFUL.
--- NOTE | 2016-07-28 10:04 | NUR ---
EVALUATED BY SEAFOOD FARMER. PT REFUSING TORADOL, WANTS STRONGER PAIN MED AND ATIVAN. CONTINUES TO YELL OUT FOR MEDS.
--- NOTE | 2016-07-28 10:08 | ED PSYCH CRISIS CONSULTATION ---
Crisis Consult Basic Assessment Date of Consult: 07/28/16 Responsible Person/Accompanied By: self Insurance Authorization: Insurance #1: Insurance name: DARRELL Anderson C&A Phone number: Policy number: [id number] Group number: Authorization number: ED Provider: Patient's ED Provider: DESIREE ALMARAZ DO Primary Care Physician: Patient's PCP: YUNG BENOIT MD PCP's Current Psychiatrist: none Chief Complaint: Hip Injury Patient's Quote: "I did not say I was going to kill myself." Present Illness: Pt is a 40yo female who presented to the ED due to hip pain. When pt did not get her pain meds she reportedly told the ED staff that she was going to kill herself if they don't give her pain meds. Therefore, crisis was asked to see pt. Upon crisis eval, pt denies making suicidal statements, and says they misunderstood her as she was expressing that she was in so much pain that she felt like she was dying. Pt adamantly denies suicidal ideation. She expressed that she is in pain and just wants help with her pain. Pt denies that she is in any current out pt mental health tx and she declines any referral for out pt tx for follow-up. Pt does have a previous mental health hx for substance induced mood disorder where she was admitted to [facility] in 2011 and 2016. Pt was also in [facility] in 2016. Pt expresses that she would like to go to a snf. Crisis spoke to pt's friend Risa Bhatia who confirmed that pt becomes hopeless and depressed about her pain, but she has never known her to be suicidal. Pt denies that she has any pain management. She was seeing a primary care Doctor Dr. Kaba at [facility], but pt has not followed-up there since Dr. Benoit left the practice. Pt denies she has any current PCP. This clinician called and spoke to Arlette Moran who confirmed that pt has not followed up and was last seen in November 2015 and has not kept any appointments since. Pt expresses that she would like to go to a snf because she is in so much pain that she can't walk. Dr. Valerio and case management are aware of this and they plan to have PT evaluate pt. Case reviewed with Dr. Walton of Psychiatry who informed that if pt is discharged she would follow-up with out pt psych tx and if she goes to an ECF than psych should see her there. Dr. Valerio and Vangie from Case Management made aware of Dr. Walton's recommendations. Patient's Address: [address] [place] [address] [address] [place] [place] [address] Other Phone Number: Who Do You Live With? Patient/Self Family/Informants Interviewed: Friend and GFP Allergies - Coded Allergies: codeine (Intermediate, HIVES 06/17/16) nickel (Intermediate, RASH 06/17/16) adhesive tape (Mild, RASH 06/17/16) duloxetine (Intermediate, NAUSEA 06/17/16) hydrocodone (GI UPSET (ESOPHAGITIS) 06/17/16) ibuprofen (GI UPSET (ESOPHAGITIS) 06/17/16) Current Medications - Scheduled Medications Ergocalciferol (Vitamin D2) (Drisdol) 50,000 UNIT CAPSULE 1 CAP PO QW Supplement #8 CAP Prescribed by VARUN MORALES MD on 04/16/16 Hydrocortisone Acetate (Micort-Hc) 2.5 % CREAM.APPL 1 DEMETRA TOP TID ITCHING ( Reported) Entered as Reported by LAURITA GROVE MD on 04/11/162208 Last Taken: At an unknown date and time Insulin Aspart (Novolog) 100 UNIT/ML VIAL 0 SC SEE ADMIN CRITERIA Diabetes 30 Days Prescribed by VARUN MORALES MD on 04/17/16 Last Taken: At an unknown date and time Insulin Detemir (Levemir) 100 UNIT/ML VIAL 60 UNITS SC BID DM 30 Days Prescribed by MICHEL ROSARIO MD on 06/10/16 Last Taken: At an unknown date and time Pregabalin (Lyrica) 150 MG CAPSULE 1 CAP PO BID NEUROPATHY (Reported) Entered as Reported by LAURITA GROVE MD on 04/11/162206 Last Taken: At an unknown date and time Propranolol HCl 20 MG TABLET 1 TAB PO BID ANXIETY (Reported) Entered as Reported by LAURITA GROVE MD on 04/11/162206 Last Taken: At an unknown date and time Quetiapine Fumarate 100 MG TABLET 100 MG PO AT BEDTIME ANXIETY/SLEEP 14 Days Prescribed by MICHEL ROSARIO MD on 05/30/16 Last Taken: At an unknown date and time Scheduled PRN Medications Albuterol Sulfate (Proair Hfa) 90 MCG HFA.AER.AD 2 PUF INH Q4-6 PRN PRN SOB ( Reported) Entered as Reported by LAURITA GROVE MD on 04/11/162206 Diphenhydramine HCl (Benadryl) 25 MG CAPSULE 1 CAP PO Q6 PRN ITCHING ( Reported) Entered as Reported by LAURITA GROVE MD on 04/11/162207 Laboratory Results: Laboratory Tests 07/28/16 1334: Sodium Pending, Potassium Pending, Chloride Pending, Carbon Dioxide Pending, Anion Gap Pending, BUN Pending, Creatinine Pending, BUN/Creatinine Ratio Pending , Glucose Pending, Calcium Pending 07/28/16 0757: Anion Gap 18 H, Estimated GFR > 60, BUN/Creatinine Ratio 34.4 H, Glucose 619 * H, Calcium 9.6, Total Bilirubin 0.5, AST 15, ALT 30, Alkaline Phosphatase 189 H , Total Protein 5.2 L, Albumin 2.9 L, Globulin 2.3, Albumin/Globulin Ratio 1.3 , CBC w Diff NO MAN DIFF REQ, RBC 4.84, MCV 80.3 L, MCH 26.2 L, RDW 17.5 H, MPV 8.6, Gran % 94.2 H, Lymphocytes % 3.7 L, Monocytes % 1.2 L, Eosinophils % 0.8, Basophils % 0.1, Absolute Granulocytes 13.1 H, Absolute Lymphocytes 0.5 L , Absolute Monocytes 0.2, Absolute Eosinophils 0.1, Absolute Basophils 0, PUBS MCHC 32.6 L, Acetone Level POSITIVE AT 1:16 DIL Past History Past Medical History Neurological: NONE EENT: hearing loss Cardiovascular: NONE Respiratory: asthma, S/P CHEST TUBE 05/2016 Gastrointestinal: necrotizing fasciitis of the perineum S/P COLOSTOMY Hepatic: NONE Renal: left pararenal abscess Musculoskeletal: OSTEOMYELITIS OF PUBIS PUBIS FX Psychiatric: anxiety, chronic pain disorder, depression, opioid dependence, POLYSUBSTANCE ABUSE NARCOTIC DEPENDENCE SUICIDAL IDEATION Endocrine: INSULIN DEPENDENT DIABETES - noncompliant Blood Disorders: anemia Cancer(s): NONE 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 Past Surgical History Surgical History: , hysterectomy, D&C colostomy with reversal left axillary abscess November 2014 Psychosocial History Strengths/Capabilities: Able to articulate her needs Physical Limitations (Interventions): hip pain Psychiatric Treatment History Psych Treatment Psychiatric Treatment Yes Inpatient Treatment Yes Outpatient Treatment Yes Location of Treatment [facility] Reason for Treatment substance ind mood d/o Dates of Treatment 2011, 2015 Response to Treatment variable Diagnosis by History: F43.10 PTSD/Unspecified R/O F41.1 Generalized Anxiety Disorder vs Bipolar Disorder F11.10 Opiate Use Disorder, severe, 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, severe F12.10 Cannibis Use Disorder F14.10 Cocaine Use Disorder Substance Use/Abuse History Drug Use/Abuse Substances Used/Abused Yes Substance Used/Abused Prescribed Opiates Substance Abuse Treatment Substance Abuse Treatment Past Substance Abuse [place] Yes Inpatient Treatment Yes Outpatient Treatment Yes Location of Treatment [place] Reason for Treatment Opiate use Dates of Treatment 2015 Response to Treatment variable Current Mental Status Mental Status Orientation: Person, Place, Situation Affect: Anxious, Angry Speech: WNL Neuro-vegetative: WNL Appearance Appearance- Dress/Hygiene: fairly goomed, tearful at times Behaviors Thought Process: WNL Thought Content: WNL Memory: WNL Insight: Poor SI/HI Risk Assessment Past Suicidal Ideation/Attempts Yes Current Suicidal Ideation/Att No Past Homicidal Ideation/Att: No Current Homicidal Ideation/Attempts No Degree of Intent: None Gravely Disabled: Lack of Insight Risk Factors: chronic/serious med cond., high anxiety/distress, SA/MH hospitalized, substance abuse, lives alone, limited support Lethality Ratin (mild) PTSD Checklist PTSD Done? patient declined ED Management Sitter: Yes Restraints: No DSM5/PS Stressors/Medical Prob Diagnosis' (DSM 5, Stressors, Medical): unspecified depression f32.9, chronic pain, opiate use d/o f11.20 Current GAF: 35 Departure Disposition Psych Medical Clearance Date: 07/28/16 Medically Cleared at: 1000 Time Started: 1000 Time Ended: 1020 Psychiatrist Consulted: Percy Walton MD Date Disposition Established: 07/28/16 Time Disposition Established: 1019 Plan for Disposition - Modality: case management/PT Facility: pending Rationale for Disposition: Denies active SI and wants to go to an ECF Referrals YUNG BENOIT MD (PCP/Family)
--- NOTE | 2016-07-28 10:53 | NUR ---
Jeyson, MARVIN GRESHAM IN ROOM ATTEMPTING IV.
--- NOTE | 2016-07-28 11:00 | NUR ---
AWAITING CRISIS EVALUATION.
--- NOTE | 2016-07-28 11:32 | NUR ---
PT HITTING CALL [facility] FOR BACK SCRATCH. UPON INTRODUCING SELF TO PT, PT REFUSING REQUEST TO ATTEMPT AMBULATION. EXPLAINED THAT TRIAL IS NEEDED FOR EVALUATION FOR APPROPRIATE PLACEMENT. PT STATES "I THOUGHT THAT'S WHAT PHYSICAL THERAPY IS FOR, I SAID I WANTED TO SEE THEM AND GO TO A REHAB".
--- NOTE | 2016-07-28 12:02 | NUR ---
07/28 CASE MGMT- PAGED PT- AWAITING RETURN CALL BACK.
--- NOTE | 2016-07-28 13:36 | NUR ---
SST X 2 SENT TO LAB FOR REEVAL OF SERUM GLUCOSE AND ANION GAP. PT CONT TO COMPLAIN OF R ELBOW SWELLING AND PAIN, PITTING EDEMA OBSERVED WITH MILD ERYTHEMA. ELEVATED AND PT WHIMPERING IN PAIN. DECLINING ICE PACK OFFERED. REQUESTING PAIN MEDICINE AND INFORMED THAT THIS RN WILL DISCUSS OPTIONS WITH DR ALMARAZ
--- NOTE | 2016-07-28 13:50 | NUR ---
MEDICATED WITH TYLENOL IV PER eMAR AND NS IVF BOLUS RUNNING. LIGHTS REMAIN OFF PER REQUEST AND DOOR SLIGHTLY AJAR. CALL HANSEN IN REACH.
--- NOTE | 2016-07-28 14:38 | NUR ---
PT ADMITTED TO ROOM 226-1
--- NOTE | 2016-07-28 14:58 | History & Physical ---
General Information and HPI Allergies/Medications Allergies: Coded Allergies: codeine (Intermediate, HIVES 06/17/16) nickel (Intermediate, RASH 06/17/16) adhesive tape (Mild, RASH 06/17/16) duloxetine (Intermediate, NAUSEA 06/17/16) hydrocodone (GI UPSET (ESOPHAGITIS) 06/17/16) ibuprofen (GI UPSET (ESOPHAGITIS) 06/17/16) Home Med list Albuterol Sulfate (Proair Hfa) 90 MCG HFA.AER.AD 2 PUF INH Q4-6 PRN PRN SOB ( Reported) Diphenhydramine HCl (Benadryl) 25 MG CAPSULE 1 CAP PO Q6 PRN ITCHING ( Reported) Ergocalciferol (Vitamin D2) (Drisdol) 50,000 UNIT CAPSULE 1 CAP PO QW Supplement Please take one of these medications every week for the next eight weeks. After that, you will be required to take one every two weeks for mainainance of your vitamin D Levels. Hydrocortisone Acetate (Micort-Hc) 2.5 % CREAM.APPL 1 DEMETRA TOP TID ITCHING ( Reported) Insulin Aspart (Novolog) 100 UNIT/ML VIAL 0 SC SEE ADMIN CRITERIA Diabetes Your insulin coverage was changed while in hospital. Sliding Scale Blood Sugar Less that 80mg/dl Initiate Hypoglycemia protocol 80-150 mg/dl 12 units 151-200 mg/dl 14 units 201-250 mg/dl 16 units 251-300 mg/dl 18 units 301-350 mg/dl 20 units 351-400 mg/dl 22 units More than 400 mg/dl 24 units call MD Please check your blood sugar at least three times a day. Inform your city planning engineer about this change. Insulin Detemir (Levemir) 100 UNIT/ML VIAL 60 UNITS SC BID DM Pregabalin (Lyrica) 150 MG CAPSULE 1 CAP PO BID NEUROPATHY (Reported) Propranolol HCl 20 MG TABLET 1 TAB PO BID ANXIETY (Reported) Quetiapine Fumarate 100 MG TABLET 100 MG PO AT BEDTIME ANXIETY/SLEEP Past History Travel History Traveled to [place] past 21 day No Medical History Neurological: NONE EENT: hearing loss Cardiovascular: NONE Respiratory: asthma, S/P CHEST TUBE 05/2016 Gastrointestinal: necrotizing fasciitis of the perineum S/P COLOSTOMY Hepatic: NONE Renal: left pararenal abscess Musculoskeletal: OSTEOMYELITIS OF PUBIS PUBIS FX Psychiatric: anxiety, chronic pain disorder, depression, opioid dependence, POLYSUBSTANCE ABUSE NARCOTIC DEPENDENCE SUICIDAL IDEATION Endocrine: INSULIN DEPENDENT DIABETES - noncompliant Blood Disorders: anemia Cancer(s): NONE 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 FH: cirrhosis Psychosocial History Who Do You Live With? with friend Primary Language: Cambodian ETOH Use: denies use Living Will? no Power of Catalyst Unit Operator/HCP? no Functional Ability ADLs Independent: dressing, eating, toileting, bathing. Ambulation: independent IADLs Independent: shopping, housework, finances, food prep, telephone, transportation , medication admin. Core Measures/Miscellaneous Severe Sepsis Severe Sepsis Present: No Septic Shock Septic Shock Present: No
--- NOTE | 2016-07-28 15:44 | NUR ---
REPORT GIVEN TO MP DE LA FUENTE WHO WILL CALL TO INFORM WHEN ROOM IS READY
--- NOTE | 2016-07-28 16:09 | History & Physical ---
See Addendum RAMBO GARCIA 07/28/16 1608: General Information and HPI MD Statement: I have seen and personally examined SIS MARTINI and documented this H&P. The patient is a 40 year old F who presented with a patient stated chief complaint of [right hip pain]. Source of Information: patient Exam Limitations: no limitations History of Present Illness: Ms Martini is a 40-year-old lady with a PMH of diabetes, previous right-sided hemorrhagic pleural effusion S/P Pleurx catheter, lytic therapy 2, previous MSSA sepsis likely secondary to pro-line catheter, previous necrotizing fasciitis of the perineum, left pararenal abscess, osteomyelitis of pubic bone, polysubstance abuse, depression, opiate dependence who presented with complaints of right-sided hip pain. Patient endorses a recent fall while walking with resultant right-sided groin pain, cramping/stabbing in nature, exacerbated with any kind of movement. She denies any fevers, chills but does endorse poor oral intake since then. Patient endorses some right upper extremity discomfort that occurred with the fall. Allergies/Medications Allergies: Coded Allergies: codeine (Intermediate, HIVES 06/17/16) nickel (Intermediate, RASH 06/17/16) adhesive tape (Mild, RASH 06/17/16) duloxetine (Intermediate, NAUSEA 06/17/16) hydrocodone (GI UPSET (ESOPHAGITIS) 06/17/16) ibuprofen (GI UPSET (ESOPHAGITIS) 06/17/16) Home Med list Albuterol Sulfate (Proair Hfa) 90 MCG HFA.AER.AD 2 PUF INH Q4-6 PRN PRN SOB ( Reported) Diphenhydramine HCl (Benadryl) 25 MG CAPSULE 1 CAP PO Q6 PRN ITCHING ( Reported) Ergocalciferol (Vitamin D2) (Drisdol) 50,000 UNIT CAPSULE 1 CAP PO QW Supplement Please take one of these medications every week for the next eight weeks. After that, you will be required to take one every two weeks for mainainance of your vitamin D Levels. Hydrocortisone Acetate (Micort-Hc) 2.5 % CREAM.APPL 1 DEMETRA TOP TID ITCHING ( Reported) Insulin Aspart (Novolog) 100 UNIT/ML VIAL 0 SC SEE ADMIN CRITERIA Diabetes Your insulin coverage was changed while in hospital. Sliding Scale Blood Sugar Less that 80mg/dl Initiate Hypoglycemia protocol 80-150 mg/dl 12 units 151-200 mg/dl 14 units 201-250 mg/dl 16 units 251-300 mg/dl 18 units 301-350 mg/dl 20 units 351-400 mg/dl 22 units More than 400 mg/dl 24 units call MD Please check your blood sugar at least three times a day. Inform your head of commission department about this change. Insulin Detemir (Levemir) 100 UNIT/ML VIAL 60 UNITS SC BID DM Pregabalin (Lyrica) 150 MG CAPSULE 1 CAP PO BID NEUROPATHY (Reported) Propranolol HCl 20 MG TABLET 1 TAB PO BID ANXIETY (Reported) Quetiapine Fumarate 100 MG TABLET 100 MG PO AT BEDTIME ANXIETY/SLEEP Past History Travel History Traveled to [place] past 21 day No Medical History Neurological: NONE EENT: hearing loss Cardiovascular: NONE Respiratory: asthma, S/P CHEST TUBE 05/2016 Gastrointestinal: necrotizing fasciitis of the perineum S/P COLOSTOMY Hepatic: NONE Renal: left pararenal abscess Musculoskeletal: OSTEOMYELITIS OF PUBIS PUBIS FX Psychiatric: anxiety, chronic pain disorder, depression, opioid dependence, POLYSUBSTANCE ABUSE NARCOTIC DEPENDENCE SUICIDAL IDEATION Endocrine: INSULIN DEPENDENT DIABETES - noncompliant Blood Disorders: anemia Cancer(s): NONE 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 FH: cirrhosis Psychosocial History Who Do You Live With? with friend Primary Language: Nepali ETOH Use: denies use Living Will? no Power of Geriatric Physical Therapist/HCP? no Functional Ability ADLs Independent: dressing, eating, toileting, bathing. Ambulation: independent IADLs Independent: shopping, housework, finances, food prep, telephone, transportation , medication admin. Review of Systems Review of Systems Constitutional: Reports: see HPI. EENTM: Reports: see HPI. Cardiovascular: Reports: no symptoms. Respiratory: Reports: no symptoms. GI: Reports: see HPI. Musculoskeletal: Reports: see HPI. Skin: Reports: see HPI. Neurological/Psychological: Reports: see HPI. Exam & Diagnostic Data Last 24 Hrs of Vital Signs/I&O Vital Signs Date Time Temp Pulse Resp B/P Pulse O2 O2 Flow FiO2 Ox Delivery Rate 07/28 1422 98.2 102 18 129/65 98 Room Air 07/28 1350 98.2 07/28 1046 98.2 116 18 115/70 98 Room Air 07/28 0807 98.2 110 18 124/60 98 Room Air 07/28 0521 98.3 113 20 126/58 97 Room Air 07/27 2343 Room Air 07/27 2336 96.4 112 22 120/57 97 Room Air Intake & Output 07/28 1600 07/28 0800 07/28 0000 Intake Total 1000 0 Output Total 200 Balance 1000 -200 0 Intake, IV 1000 Intake, Oral 0 Output, Urine 200 Patient 211 lb Weight Physical Exam General Appearance Mild Distress Skin RUE extemity appears mildly bruised. HEENT EOMI, Mucous Membr. moist/pink Cardiovascular Regular Rate, Normal S1, Normal S2 Lungs Normal Air Movement, Diminished breath sounds in the basilar regions BL Abdomen Normal Bowel Sounds, Soft, No Tenderness Extremities Tenderness elicited on palpation of tyher right hip Vascular Pulses Symmetrical Last 24 Hrs of Labs/Haris: Laboratory Tests 07/28/16 1334: Anion Gap 12, Estimated GFR > 60, BUN/Creatinine Ratio 42.9 H, Glucose 312 H, Calcium 9.0 07/28/16 0757: Anion Gap 18 H, Estimated GFR > 60, BUN/Creatinine Ratio 34.4 H, Glucose 619 * H, Calcium 9.6, Total Bilirubin 0.5, AST 15, ALT 30, Alkaline Phosphatase 189 H , Total Protein 5.2 L, Albumin 2.9 L, Globulin 2.3, Albumin/Globulin Ratio 1.3 , CBC w Diff NO MAN DIFF REQ, RBC 4.84, MCV 80.3 L, MCH 26.2 L, RDW 17.5 H, MPV 8.6, Gran % 94.2 H, Lymphocytes % 3.7 L, Monocytes % 1.2 L, Eosinophils % 0.8, Basophils % 0.1, Absolute Granulocytes 13.1 H, Absolute Lymphocytes 0.5 L , Absolute Monocytes 0.2, Absolute Eosinophils 0.1, Absolute Basophils 0, PUBS MCHC 32.6 L, Acetone Level POSITIVE AT 1:16 DIL Diagnostic Data Other Results CT pelvis without IV contrast: Fractures of the right superior and inferior pubic rami are again noted with partial interval healing since the prior study. No acute fractures are seen. Increased sclerosis at the right pubic rami is nonspecific. An infectious process is difficult to exclude. New appearance of a right pelvic collection with mass effect upon the bladder. This likely represents hematoma in the setting of fracture. There is also hematoma of the right iliopsoas. Chronic changes at L4-L5 disc space. Assessment/Plan Assessment: 40-year-old lady with a PMH of diabetes, previous right-sided hemorrhagic pleural effusion S/P Pleurx catheter, lytic therapy 2, previous MSSA sepsis likely secondary to pro-line catheter, previous necrotizing fasciitis of the perineum, left pararenal abscess, osteomyelitis of pubic bone, polysubstance abuse, depression, opiate dependence who presented with complaints of right-sided hip pain. VS on admission: BP 120/57, HR 112, RR 22, SPO2 97% on RA, T 96.4 Pertinent labs: WBC 13.9, H&H 4.7/30.8, sodium 120, chloride 88, BUN/CR/0.9, glucose 619 Anion gap: 18 CT abdomen and pelvis: PELVIS: There is a prominent collection, likely a hematoma, in the right hemipelvis with mass effect upon the bladder. This measures approximately 9.3 x 5.4 x 10.7 cm. There is additional asymmetric thickening of the right iliopsoas muscle. This is suggestive of hemorrhage. These findings are new when compared to the prior CT. Problem list: 1. Fluid collection in right pelvis: DDX hematoma versus abscess 2. Diabetes with hyperglycemia, elevated anion gap 3. Polysubstance abuse 4. Depression 5. Peripheral neuropathy Plan: * Admit to general medicine floor * We'll consult with IR in the morning for possible drainage of fluid collection in the pelvis. NPO after midnight * ID consult in the a.m. Patient spikes fever, will obtain blood cultures. CBC in the a.m. * Pain management: Patient has an established history of narcotic dependence. However in the setting of current CT findings, will provide appropriate analgesia overnight with Dilaudid 0.4 mg Q6P, lidocaine patch * History of anxiety/depression: We'll provide Benadryl for symptomatic control and propranolol 20 mg PO * Peripheral neuropathy: Continuing Lyrica 150 mg PO BID * Diabetic diet, continue Levemir 60 units BID, insulin sliding scale * NPO after midnight, NPO sliding scale starting the a.m. * History of asthma: TRCs * CODE STATUS: Full code * DVT prophylaxis: ALPs As Ranked By This Provider Problem List: 1. Hematoma 2. Hyperglycemia 3. Diabetes mellitus 4. Hyponatremia Core Measures/Miscellaneous Acute Coronary Syndrome ACS Diagnosis: No Cerebrovascular Accident CVA/TIA Diagnosis: No Congestive Heart Failure CHF Diagnosis: No Venous Thromboembolism VTE Risk Factors: Acute medical illness No Mech VTE prophylaxis d/t: No contraindications No VTE Pharm Prophylaxis d/t: No contraindications VTE Diagnosis: No VTE Type: NONE VTE Confirmed by (Test): NONE Severe Sepsis Severe Sepsis Present: No Septic Shock Septic Shock Present: No Miscellaneous Documentation Attending Case Discussed With: KARIN CARPENTER MD Primary Care Physician: YUNG BENOIT MD Patient sees these Specialists NA Level of Patient Care: General Medicine Resident Review Statement Resident Statement: examined this patient, discussed with director internal communications, agreed with director internal communications, reviewed EMR data (avail), discussed with nursing, reviewed images KARIN CARPENTER MD 07/28/168: Attending Review Statement Attending Statement Attending Statement: examined this patient, discuss w/resident/PA/PHYSICIAN SCIENTIST, agreed w/resident/PA/PHYSICIAN SCIENTIST, reviewed EMR data (avail), discussed with nursing, reviewed images, amended to note Attending Assessment/Plan: The patient is a 40 yo female with h/o polysubstance abuse/narcotic addiction with h/o multiple [facility] admissions for various diagnoses that required IV narcotics who presented on the day of admission in the [facility] ED s/p another fall onto her right side with c/o right hip & pelvic pain. CT scan shows a new large right pelvic hematoma (10.7 cm) that is causing deviation of the bladder ot the left side. She has a h/o necrotizing fasciitis, para- renal abscess, h/o hemothorax requiring drainage, h/o recent pelvic fractures. In the ED decision was for no narcotics and was given IV Tylenol and toradol. She had psych evaluation due to some expression of suicidal ideation and was felt not to be suicidal. Upon arrival on the floor the patient c/o severe pain in spite of above medication. Her blood sugar was noted to be 619 with bicarb 14 with significant decrease in sugar post insulin and fluids in ED. Physical Exam: VS: T 98.2, P 102, R 18, BP 129/65, PO 98% HEENT: eyes- PERRLA, EOMI [place]- moist mucosa w/o lesions Neck: no JVD/bruits/adenopathy Chest: clear Cor: tachy, reg, nl S1, S2 w/o murm Abd: BS+, soft, ? minimal tenderness right pelvic area w/o guarding/rebound when distracted Ext: some tenderness right hip/thigh area and right arm (s/p fall on right side) Neuro: non-focal, alert & oriented Labs/Tests- as above Impression/Plan: #Hyperglycemia/Acidosis- sugars decreased post fluids/insulin in ED (sugar in 300 range). Unclear if patient had run out of medication at home. Plan: Admit to medical floor. Monitor sugars closely- insulin coverage. Consider Endocrinology input in morning. #Right Pelvic Fluid Collection- ? hematoma vs infection. Concern is that patient has had multiple infections in the past. She fell again after her prior pelvic fractures that appear to be healing on CT. Plan: Check INR, ESR. Follow-up H/H and WBC count in morning. Would get ID input regarding potential that this could be infected (has elevated WBC). Surgical evaluation- consider whether drainage is needed. #Acute on Chronic Pain- patient c/o severe right hip/pelvic pain and above large hematoma is a new finding suggesting acute post fall. Concern that patient has presented with multiple illnesses producing pain and has required narcotics. She states no response to IV Tylenol/Toradol. Plan: Will treat patient tonight with low dose of Dilaudid along with tylenol. Await surgical and ID evaluations to see if drainage of this collection is suggested. Agree with lidocaine patch. May consider pain consult. Will attempt to minimize narcotics. Physical Therapy evaluation. Restart Lyrica (she had run out). #Anxiety/Depression-patient had stopped psych meds. Attempting to avoid benzos as she has also had dependence. Plan: Will treat with benadryl this evening. Psych consult in morning. #Asthma- lungs are clear at present. Plan: Continue Albuterol inhaler prn. Will attempt to minimize narcotics, however with new finding of large probable right pelvic hematoma need to consider possibility that she had true pain. Await specialty evaluations and PT evaluation.
[2016-07-28 17:15] VITALS: BP 118/70
--- NOTE | 2016-07-28 19:50 | NUR ---
PT ARRIVED TO FLOOR AT 0515, REPORT RECEIVED FROM LEISA GRESHAM AT 1900. PT IS CRYING IN PAIN STATING "PLEASE CALL THE DR FOR MORE PAIN MEDS". PT RECEIVED IV DILAUDID AT 1809 0.6MG, SPOKE WITH ZA GARCIA MD, PER NOT TO GIVE ANY ADDITIONAL IV DILAUDID, WILL ORDER IV TORADOL ONCE FOR PAIN. MD AT BEDSIDE TO INFORM PT, PT IS A/0X3 ON RA, LUNGS CLEAR, FALL RISK PRECAUTIONS IN PLACE BUT PT REFUSES BED ALARM, ZA GARCIA MD MADE AWARE, PT ALSO REFUSES TO LET THIS RN ASSESS SKIN AND BOTTOM, ALSO AWARE. VSS, ORIENTED PT TO ROOM, CALL HANSEN AND STAFF. WILL MONITOR.
--- NOTE | 2016-07-28 21:56 | Admission Certification ---
Admission Certification Certification Statement - As attending physician, I certify that at the time of - admission, based on clinical presentation, severity of - symptoms, need for further diagnostic testing and - therapeutic interventions, and risk of adverse outcomes - without in-hospital treatment, in my clinical assessment, - this patient requires an acute hospital stay for a minimum - of two nights or longer. I have also considered psychsocial - factors such as support system, advanced age, financial - issues, cognitive issues, and failed out-patient treatments, - past re-admission history, safety of patient, and lack of - compliance as applicable. Specific rationale supporting this admission is: The patient presents with hyperglycemia (glu 619), severe right pelvic pain and large pelvic hematoma that is new (s/p another fall on right side per patient), h/o DM2, h/o hemorrhagic pleural effusion, h/o necrotizing fasciitis of the perineum, h/o left pararenal abscess, recent pelvic fractures and poly substance abuse. Unable to ambulate secondary to pain. Needs admission for pain control. Evaluation for drainage of hematoma. Psych evaluation.
--- NOTE | 2016-07-29 01:25 | NUR ---
MST IN TO CHANGE PT BED. SATURATED WITH URINE. PT REFUSING BED CHANGE AT THIS TIME.
[2016-07-29 07:29] VITALS: BP 142/68
[2016-07-29 09:52] LABS: ABSOLUTE BASOPHIL COUNT 0 /CUMM (0.0-0.2); ABSOLUTE EOSINOPHIL COUNT 0.1 /CUMM (0.0-0.7); ABSOLUTE GRANULOCYTE CT 11.7 /CUMM (1.4-6.5); ABSOLUTE LYMPH COUNT 0.5 /CUMM (1.2-3.4); ABSOLUTE MONOCYTE COUNT 0.1 /CUMM (0.10-0.60); BASOPHIL % 0 % (0.0-2.0); EOSINOPHIL % 1.2 % (0-5); GRANULOCYTE % 93.6 % (42.2-75.2); HEMATOCRIT 40.7 % (37-47); MEAN CORPUSCULAR HGB 26.1 PG (27.0-31.0); MEAN CORPUSCULAR HGB CONC 32.6 G/DL (33.0-37.0); MEAN CORPUSCULAR VOLUME 80.3 FL (81.0-99.0); MEAN PLATELET VOLUME 8.4 FL (7.4-10.4); PLATELET COUNT 191 /CUMM (130-400); RED BLOOD CELL CT 5.08 /CUMM (4.20-5.40); WHITE BLOOD CELL COUNT 12.5 /CUMM (4.8-10.8)
[2016-07-29 10:14] LABS: PT 10.3 SEC (9.4-12.5)
--- NOTE | 2016-07-29 10:53 | PN- Housestaff ---
RAMBO GARCIA 07/29/16 1039: Subjective Follow-up For: Pelvic hematoma Diabetes Pain management Anxiety/depression Subjective: Interval history: This morning the patient states that her pelvic pain has been better controlled. She does report intermittent throbbing discomfort in the pelvic region. Patient complains of pain in her right arm with no improvement over the past 24 hours. She endorses new onset vaginal discomfort that was managed with miconazole topical cream. She denies any nausea, vomiting, abdominal pain, fevers. Review of Systems Constitutional: Reports: see HPI. EENTM: Reports: no symptoms. Cardiovascular: Reports: no symptoms. Respiratory: Reports: no symptoms. Gastrointestinal: Reports: no symptoms. Genitourinary: Reports: see HPI. Musculoskeletal: Reports: see HPI. Objective Last 24 Hrs of Vital Signs/I&O Vital Signs Date Time Temp Pulse Resp B/P Pulse O2 O2 Flow FiO2 Ox Delivery Rate 07/29 0729 98.1 94 20 142/68 94 07/28 2331 97.5 92 20 94 Room Air 07/28 2151 90 140/65 07/28 2125 Room Air Room Air 07/28 1715 97.3 102 18 118/70 95 Room Air 07/28 1422 98.2 102 18 129/65 98 Room Air 07/28 1350 98.2 07/28 1046 98.2 116 18 115/70 98 Room Air Intake & Output 07/29 1600 07/29 0800 07/29 0000 Intake Total 120 Output Total Balance 120 Intake, Oral 120 Patient 211 lb Weight Physical Exam General Appearance: Alert, Cooperative, No Acute Distress Skin: RUE skin slightly more erythematous than left HEENT: EOMI, Mucous Membr. moist/pink Cardiovascular: Regular Rate, Normal S1, Normal S2 Lungs: Normal Air Movement Abdomen: Normal Bowel Sounds, Soft, No Tenderness Neurological: Normal Speech Extremities: No Edema, Normal Pulses Vascular: Pulses Symmetrical Current Medications: Current Medications Sig/Shahla Start time Last Medication Dose Route Stop Time Status Admin Acetaminophen 1,000 MG Q6P PRN 07/29 0630 AC 07/29 IV 0829 Acetaminophen 0 .STK-MED ONE 07/28 1346 DC IV Acetaminophen 1,000 MG ONCE ONE 07/28 1345 DC 07/28 IV 07/28 1346 1350 Diphenhydramine HCl 50 MG Q6P PRN 07/28 1745 AC 07/29 IV 0547 Diphenhydramine HCl 0 .STK-MED ONE 07/28 1108 DC .ROUTE Diphenhydramine HCl 50 MG ONCE ONE 07/28 1100 DC 07/28 IV PUSH 07/28 1101 1109 Hydromorphone HCl 0.5 MG Q4P PRN 07/29 0630 DC IV Hydromorphone HCl 0.6 MG Q6P PRN 07/28 1745 AC 07/29 IV 0547 Insulin Aspart 0 TIDAC 07/29 0800 DC SC 07/29 0805 Insulin Aspart 0 TIDAC 07/28 1945 DC 07/28 SC 07/29 0000 2010 Insulin Detemir 60 UNITS BID 07/28 2200 AC 07/28 SC 2151 Insulin Human Regular 0 Q6 07/29 0800 DC SC Insulin Human Regular 0 Q6 07/29 0100 AC 07/29 SC 0002 Ketorolac 30 MG ONCE ONE 07/29 0145 DC 07/29 Tromethamine IV 07/29 0146 0147 Ketorolac 30 MG ONCE PRN 07/28 1945 AC 07/28 Tromethamine IV 2003 Ketorolac 0 .STK-MED ONE 07/28 1114 DC Tromethamine .ROUTE Lidocaine 1 PAT Q24H 07/29 0630 CAN EXT Lidocaine 1 PAT DAILY 07/28 1800 AC 07/28 EXT 2004 Miconazole Nitrate 1 DEMETRA AT BEDTIME 07/29 0130 AC 07/29 VAG 0200 Pregabalin 150 MG BID 07/28 2200 AC 07/28 PO 2151 Propranolol HCl 20 MG BID 07/28 2200 AC 07/28 PO 2151 Sodium Chloride 1,000 ML ONCE ONE 07/29 0100 AC IV 07/29 1419 Sodium Chloride 1,000 ML BOLUS ONE 07/28 1330 DC 07/28 IV 07/28 1429 1350 Last 24 Hrs of Lab/Haris Results Last 24 Hrs of Labs/Mics: Laboratory Tests 07/29/16 0900: Anion Gap 7, Estimated GFR > 60, BUN/Creatinine Ratio 41.3 H, PT 10.3, INR 0.98 , CBC w Diff MAN DIFF ORDERED, RBC 5.08, MCV 80.3 L, MCH 26.1 L, RDW 17.0 H, MPV 8.4, Gran % 93.6 H, Lymphocytes % 4.4 L, Monocytes % 0.8 L, Eosinophils % 1.2, Basophils % 0 L, Absolute Granulocytes 11.7 H, Segmented Neutrophils 63, Band Neutrophils 28 H, Absolute Lymphocytes 0.5 L, Lymphocytes 7 L, Monocytes 1 L, Absolute Monocytes 0.1 L, Eosinophils 1, Absolute Eosinophils 0.1, Absolute Basophils 0, Platelet Estimate VERIFIED BY SMEAR, Polychromasia , Anisocytosis 1+, Stomatocytes 1+, PUBS MCHC 32.6 L, ESR [facility] Pending 07/28/16 1334: Anion Gap 12, Estimated GFR > 60, BUN/Creatinine Ratio 42.9 H, Glucose 312 H, Calcium 9.0 Assessment/Plan Assessment: 40-year-old lady with a PMH of diabetes, previous right-sided hemorrhagic pleural effusion S/P Pleurx catheter, lytic therapy 2, previous MSSA sepsis likely secondary to pro-line catheter, previous necrotizing fasciitis of the perineum, left pararenal abscess, osteomyelitis of pubic bone, polysubstance abuse, depression, opiate dependence who presented with complaints of right-sided hip pain. CT abdomen and pelvis: PELVIS: There is a prominent collection, likely a hematoma, in the right hemipelvis with mass effect upon the bladder. This measures approximately 9.3 x 5.4 x 10.7 cm. There is additional asymmetric thickening of the right iliopsoas muscle. This is suggestive of hemorrhage. These findings are new when compared to the prior CT. Problem list 1. Pelvic hematoma 2. Leukocytosis 3. Right shoulder pain and swelling 4. Diabetes 5. Depression/anxiety 6. Peripheral neuropathy 7. Pain management Plan: 1. Pelvic hematoma * Spoke with interventional radiologist this morning (Dr. Dunaway). Based on findings shown on CT, it appears that the fluid collection is a hematoma. Recommend conservative management. Concerned that placement of a drain into a sterile fluid collection may be a nidus for infection to setting. Hematoma should resolve over time * No need for repeat imaging unless worsening pain 2. Leukocytosis * Persistent leukocytosis, new onset bandemia 28% * Afebrile at this time * Fluid collection less likely to be an abscess * Etiology could be secondary to her vaginal discomfort * We'll obtain blood and urine cultures 3. Right shoulder pain and swelling: DDX fracture versus sprain versus hematoma * Symptoms occurred s/p fall * We'll obtain x-rays right forearm/humerus * Supportive therapy with arm elevation 4. Diabetes * We'll restart her diet. Levemir 60 mg BID * Consistent carbohydrate 3 5. Depression/anxiety * Holding off restarting Seroquel * Psychiatry consult tomorrow on recommendations on restarting dosage 6. Peripheral neuropathy * Continue Lyrica 150 mg BID 7. DVT prophylaxis * ALps, Lovenox 8. CODE STATUS * Full code Problem List: 1. Hematoma 2. Leukocytosis 3. Arm pain 4. Anxiety 5. Diabetes mellitus 6. Fall 7. Right hip pain Pain Ratin Pain Location: Right pelvis Pain Goal: Pain 4 or less Pain Plan: Dilaudid Lidocaine patch Tomorrow's Labs & Rationales: CBC _ monitoring bandemia DVT/Prophylaxis: pharmacological KARIN CARPENTER MD 07/29/16 1233: Attending MD Review Statement Attending Statement Attending MD Statement: examined this patient, discuss w/resident/PA/ELEVATOR DISPATCHER, agreed w/resident/PA/ELEVATOR DISPATCHER, reviewed EMR data (avail), discussed with nursing, reviewed images, amended to note Attending Assessment/Plan: The patient was seen and discussed with house staff. Agree with the plan of care as outlined.
--- NOTE | 2016-07-29 12:00 | NUR ---
PT HAD PREVIOUS BEEN REFUSING TO TURN OR LET NURSE ASSESS SKIN. PT FOUND TO BE IN WET LINENS, TOLD SHE MUST BE CHANGED. PT TURNED TO SIDE, 4X3 CM NECROTIC AREA NOTED TO RIGHT BUTTOCK. PT TOLD THAT SHE WILL HAVE AN AIR MATTRESS ORDERED AND IS ADAMANTLY REFUSING. PT INFORMED OF RISKS ASSOCIATED WITH NONCOMPIANCE TO SKIN INTEGRITY PROTOCOLS AND VERBALIZES UNDERSTANDING OF RISKS. CONTINUES TO REFUSE ANY REPOSITIONING. WILL MONITOR.
[2016-07-29 14:36] VITALS: BP 80/60
[2016-07-29 15:15] VITALS: BP 80/50
--- NOTE | 2016-07-29 15:18 | RADIOLOGY REPORT ---
EXAMINATION: XR HUMERUS, RIGHT CLINICAL INFORMATION: Pain. Swelling. Trauma. Fall. COMPARISON: None TECHNIQUE: AP and lateral views of the right humerus. FINDINGS: No fracture of humerus. Elbow and shoulder are unremarkable. No soft tissue abnormality. IMPRESSION: Normal right humerus.
--- NOTE | 2016-07-29 15:19 | RADIOLOGY REPORT ---
EXAMINATION: XR FOREARM, RIGHT CLINICAL INFORMATION: Fall. Pain. Swelling. COMPARISON: None TECHNIQUE: AP and lateral views of the right forearm were obtained. FINDINGS: No fracture. Radius and ulna are intact. Wrist and elbow are unremarkable. No soft tissue abnormality. IMPRESSION: Normal right forearm.
[2016-07-29 22:15] VITALS: BP 80/60
--- NOTE | 2016-07-30 05:54 | PN- Housestaff ---
HIRAM FARFAN,DERECK 07/30/16 0554: Subjective Follow-up For: Pelvic hematoma Hyponatremia Polysubtance abuse Subjective: Patient seen and examined. She is seen lying flat in bed resting comfortably. She appear uncomfortable and in mild distress. She states that her pain is uncontrolled and is requesting increases in her pain medication, specifically asking for dilaudid. She is refusing to ambulate or participate with physical therapy. Otherwise she denies any headache, fever, chills, chest pain, palpitations, shortness of breath, nausea, vomiting, diarrhea, urinary frequency/urgency/ burning pain. No overnight events reported. Review of Systems Constitutional: Reports: see HPI. Objective Last 24 Hrs of Vital Signs/I&O Vital Signs Date Time Temp Pulse Resp B/P Pulse O2 O2 Flow FiO2 Ox Delivery Rate 07/30 0637 98.6 98 20 102/56 94 Room Air 07/29 2215 99.2 101 20 80/60 95 Room Air 07/29 2120 101 80/60 07/29 1625 99.1 07/29 1622 99.1 07/29 1518 101.4 07/29 1515 96 80/50 07/29 1436 101.4 102 20 80/60 93 Room Air Intake & Output 07/30 1600 07/30 0800 07/30 0000 Intake Total 500 450 Output Total Balance 500 450 Intake, Oral 500 450 Physical Exam General Appearance: Alert, Mild Distress Other Physical Findings: General - well developed, well nourished obese woman in mild distress HEENT - NCAT, PERRL, EOMI, anicteric sclera CVS - S1, S2 w/o m/g/r Resp -CTA bilaterally GI - soft, obese, nontender, nondistended, bowel sounds intact Neuro - Awake and alert, argumentative and agitated, CN II - XII grossly intact Ext - normal pulses, no cyanosis/clubbing/edema Current Medications: Current Medications Sig/Shahla Start time Last Medication Dose Route Stop Time Status Admin Acetaminophen 1,000 MG Q6P PRN 07/29 0630 AC 07/30 IV 0800 Celecoxib 100 MG BID 07/30 1000 UNVr PO Diphenhydramine HCl 50 MG Q6P PRN 07/28 1745 AC 07/30 IV 0530 Enoxaparin Sodium 40 MG DAILY 07/30 1000 AC 07/30 SC 0804 Hydromorphone HCl 0.6 MG Q6P PRN 07/28 1745 AC 07/30 IV 0530 Insulin Aspart 0 TIDAC 07/29 1200 AC 07/30 SC 0803 Insulin Detemir 60 UNITS BID 07/28 2200 AC 07/30 SC 0803 Insulin Human Regular 0 Q6 07/29 0100 DC 07/29 SC 0002 Ketorolac 15 MG ONCE ONE 07/29 1245 DC 07/29 Tromethamine IV 07/29 1246 1254 Ketorolac 30 MG ONCE PRN 07/28 1945 AC 07/28 Tromethamine IV 2002 Lidocaine 1 PAT DAILY 07/28 1800 AC 07/28 EXT 2004 Miconazole Nitrate 1 DEMETRA AT BEDTIME 07/29 0130 AC 07/29 VAG 2120 Pregabalin 150 MG BID 07/28 220 AC 07/30 PO 0804 Propranolol HCl 20 MG BID 07/28 220 AC 07/30 PO 0804 Sodium Chloride 1,000 ML ONCE ONE 07/29 0100 DC IV 07/29 1419 Last 24 Hrs of Lab/Haris Results Last 24 Hrs of Labs/Mics: Laboratory Tests 07/30/16 0930: Sodium Pending, Potassium Pending, Chloride Pending, Carbon Dioxide Pending, Anion Gap Pending, BUN Pending, Creatinine Pending, BUN/Creatinine Ratio Pending , CBC w Diff Pending, WBC Pending, RBC Pending, Hgb Pending, Hct Pending, MCV Pending, MCH Pending, RDW Pending, Plt Count Pending, MPV Pending, PUBS MCHC Pending 07/29/16 1530: Urine Color YEL, Urine Clarity HAZY H, Urine pH 6.0, Ur Specific Roy 1.020, Urine Protein NEG, Urine Ketones TRACE H, Urine Nitrite NEG, Urine Bilirubin NEG@ICTO, Urine Urobilinogen 0.2, Ur Leukocyte Esterase SMALL H, Ur Microscopic SEDIMENT EXAMINED, Urine RBC RARE, Urine WBC 50-75 H, Ur Epithelial Cells RARE, Urine Bacteria PACKD H, Urine Hemoglobin NEG, Urine Glucose 250 H Microbiology 07/29 1541 BLOOD: Blood Culture - [facility] 07/29 1530 URINE ROUT: Urine Culture - RES GRAM NEGATIVE RODS 07/29 1130 BLOOD: Blood Culture - [facility] Assessment/Plan Assessment: Patient is continuing to request intravenous narcotic pain medications and is refusing to ambulate or get out of bed. There is some concern that patient is harming herself to gain medical attention as she is a frequent flyer and consistently requesting Dilaudid for pain relief. Patient is to be started on celebrex for pain control while being encouraged to ambulate as tolerated with warm compresses applied as necessary. She is to be discontinued from dilaudid today with strict instruction to follow up off any intravenous medications. Pelvic Hematoma CT abdomen/pelivs demonstrated a new right pelvic collection with mass effect upon the bladder most likely account service representative of a hematoma, additional hematoma of the right iliopoas also identified. -General medicine -Warm compresses -NO NARCOTICS -Celebrex 100mg PO BID -PT evaluation Anxiety/Depression -Propranolol 20mg PO BID -Psych consult Insulin Dependent Diabetes Mellitus -Accuchecks TIDAC/HS -Hold oral hypoglycemics -Novolog Sliding Scale insulin -Levemir on hold Right shoulder/arm pain Radiographs of the right upper extremity did not demonstrate any acute process. Peripheral Neuropathy- racquel 150mg PO BID Pain Plan- Celebrex, NO NARCOTICS Diet-Diabetic Diet DVT PPx- Lovenox Code Status- FULL CODE Problem List: 1. Hematoma Pain Ratin Pain Location: Pelvis Right shoulder Pain Goal: Pain 7 or less Pain Plan: As noted in plan Tomorrow's Labs & Rationales: CBC - leukocytosis BEP - hyponatremia KARIN CARPENTER MD 07/30/16 1335: Attending MD Review Statement Attending Statement Attending MD Statement: examined this patient, discuss w/resident/PA/PRECISION OPTICAL GOODS WORKER, agreed w/resident/PA/PRECISION OPTICAL GOODS WORKER, reviewed EMR data (avail), discussed with nursing, discussed with case mgmt, reviewed images, amended to note Attending Assessment/Plan: The patient was seen and discussed with house staff. Agree with the plan of care as outlined. The patient was advised that we will not give further narcotics. Will try Celebrex. She will not take po benadryl as it is "pink" and she is concerned regarding allergy. We will substitute Atarax which is a white pill. Psychiatry to see regarding use of anti-depressant. * Continue Lyrica 150 mg BID 7. DVT prophylaxis * ALps, Lovenox 8. CODE STATUS * Full code Problem List: 1. Hematoma Pain Ratin Pain Location: Pelvis Right shoulder Pain Goal: Pain 7 or less Pain Plan: As noted in plan Tomorrow's Labs & Rationales: CBC - leukocytosis BEP - hyponatremia KARIN ACRPENTER MD 07/30/16 1335: Attending MD Review Statement Attending Statement Attending MD Statement: examined this patient, discuss w/resident/PA/PRECISION OPTICAL GOODS WORKER, agreed w/resident/PA/PRECISION OPTICAL GOODS WORKER, reviewed EMR data (avail), discussed with nursing, discussed with case mgmt, reviewed images, amended to note Attending Assessment/Plan: The patient was seen and discussed with house staff. Agree with the plan of care as outlined. The patient was advised that we will not give further narcotics. Will try Celebrex. She will not take po benadryl as it is "pink" and she is concerned regarding allergy. We will substitute Atarax which is a white pill. Psychiatry to see regarding use of anti-depressant.
[2016-07-30 06:37] VITALS: BP 102/56
[2016-07-30 10:16] LABS: ABSOLUTE BASOPHIL COUNT 0 /CUMM (0.0-0.2); ABSOLUTE EOSINOPHIL COUNT 0.1 /CUMM (0.0-0.7); ABSOLUTE LYMPH COUNT 0.4 /CUMM (1.2-3.4); ABSOLUTE MONOCYTE COUNT 0.2 /CUMM (0.10-0.60); BASOPHIL % 0.1 % (0.0-2.0); EOSINOPHIL % 0.6 % (0-5); GRANULOCYTE % 95.9 % (42.2-75.2); MEAN CORPUSCULAR HGB 26.3 PG (27.0-31.0); MEAN CORPUSCULAR HGB CONC 32.7 G/DL (33.0-37.0); MEAN CORPUSCULAR VOLUME 80.4 FL (81.0-99.0); MEAN PLATELET VOLUME 8.9 FL (7.4-10.4); PLATELET COUNT 181 /CUMM (130-400); RBC DISTRIBUTION WIDTH 17.1 % (11.5-14.5); WHITE BLOOD CELL COUNT 16.7 /CUMM (4.8-10.8)
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
[2016-07-30 14:56] VITALS: BP 102/58
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
[2016-07-30 22:53] VITALS: BP 110/60
[2016-07-31 06:27] VITALS: BP 98/56
--- NOTE | 2016-07-31 07:12 | PN- Housestaff ---
DERECK GANDHI MD 07/31/16 0711: Subjective Follow-up For: Pelvic hematoma Hyponatremia Polysubtance abuse Subjective: Patient seen and examined. She is seen lying flat in bed resting comfortably. She appears uncomfortable but in no acute distress. She reports sleeping poorly last night secondary to pain/discomfort. She also states that she is unable to ambulate under any circumstances, even getting out of bed to chair. The room is malodorous as patient is refusing to shower. She is cooperative with the interview however she is visibly agitated. She does also admit that her right upper extremity is still quite painful and she is "unable to move it". Other than multiple old pain complaints she reports no new issues. Additionally she denies any headache, fever, chills, chest pain, palpitations, shortness of breath, cough, nausea, vomiting, diarrhea. No overnight events reported. Review of Systems Constitutional: Reports: see HPI. Objective Last 24 Hrs of Vital Signs/I&O Vital Signs Date Time Temp Pulse Resp B/P Pulse O2 O2 Flow FiO2 Ox Delivery Rate 07/31 0627 98.7 91 20 98/56 96 Room Air 07/31 0000 96 Room Air 07/30 2253 99.0 99 20 110/60 96 07/30 2106 84 114/60 07/30 1508 Room Air Room Air 07/30 1456 98.8 90 20 102/58 94 Intake & Output 07/31 1600 07/31 0800 07/31 0000 Intake Total 550 500 Output Total 825 Balance 550 -325 Intake, Oral 550 500 Number 1 1 Bowel Movements Output, Urine 825 Physical Exam General Appearance: Alert, Cooperative, No Acute Distress Other Physical Findings: General - well developed, well nourished obese woman in no acute distress HEENT - NCAT, PERRL, EOMI, anicteric sclera CVS - S1, S2 w/o m/g/r Resp -CTA bilaterally GI - soft, obese, nontender, nondistended, bowel sounds intact Neuro - Awake and alert, argumentative and agitated, CN II - XII grossly intact Ext - normal pulses, no cyanosis/clubbing/edema, right upper extremity is tender to passive range of motion with no obvious deformity or bruising, sensation and pulses intact Current Medications: Current Medications Sig/Shahla Start time Last Medication Dose Route Stop Time Status Admin Acetaminophen 650 MG Q4 HRS NEEDED PRN 07/31 0800 AC PO Acetaminophen 325 MG Q4P PRN 07/30 1930 DC 07/31 PO 0403 Acetaminophen 650 MG Q6P PRN 07/30 1200 DC 07/30 PO 1452 Acetaminophen 1,000 MG Q6P PRN 07/29 0630 DC 07/30 IV 0800 Albuterol Sulfate 2 PUF Q4P PRN 07/30 2200 AC INH Celecoxib 100 MG BID 07/30 1000 AC 07/30 PO 2108 Diclofenac Sodium 1 DEMETRA TID PRN 07/30 1145 AC 07/30 TOP 2107 Diphenhydramine HCl 50 MG Q6P PRN 07/31 0830 AC PO Diphenhydramine HCl 25 MG ONCE ONE 07/30 2030 DC 07/30 PO 07/30 2031 210 Diphenhydramine HCl 25 MG Q6P PRN 07/30 1730 DC 07/31 PO 0223 Diphenhydramine HCl 50 MG Q6P PRN 07/28 1745 DC 07/30 IV 1138 Enoxaparin Sodium 40 MG DAILY 07/30 1000 AC 07/30 SC 0804 Hydromorphone HCl 0.6 MG Q6P PRN 07/28 1745 DC 07/30 IV 1137 Hydroxyzine HCl 10 MG 4 TIMES/DAY PRN 07/30 1145 DC PO Insulin Aspart 0 TIDAC 07/29 1200 AC 07/30 SC 1712 Insulin Detemir 60 UNITS BID 07/28 2200 AC 07/30 SC 2107 Ketorolac 30 MG ONCE PRN 07/28 1945 DC 07/28 Tromethamine IV 2002 Lidocaine 1 PAT DAILY 07/28 1800 AC 07/28 EXT 2004 Miconazole Nitrate 1 DEMETRA AT BEDTIME 07/29 0130 AC 07/30 VAG 2108 Pregabalin 150 MG BID 07/28 2200 AC 07/30 PO 210 Propranolol HCl 20 MG BID 07/28 2200 AC 07/30 PO 210 Last 24 Hrs of Lab/Haris Results Last 24 Hrs of Labs/Mics: Laboratory Tests 07/31/16 0740: Sodium Pending, Potassium Pending, Chloride Pending, Carbon Dioxide Pending, Anion Gap Pending, BUN Pending, Creatinine Pending, BUN/Creatinine Ratio Pending , CBC w Diff Pending, WBC Pending, RBC Pending, Hgb Pending, Hct Pending, MCV Pending, MCH Pending, RDW Pending, Plt Count Pending, MPV Pending, PUBS MCHC Pending 07/30/16 0930: Anion Gap 9, Estimated GFR 55 L, BUN/Creatinine Ratio 39.1 H, Serum Osmolality 294, CBC w Diff MAN DIFF ORDERED, RBC 4.60, MCV 80.4 L, MCH 26.3 L, RDW 17.1 H, MPV 8.9, Gran % 95.9 H, Lymphocytes % 2.5 L, Monocytes % 0.9 L, Eosinophils % 0.6, Basophils % 0.1, Absolute Granulocytes 16.0 H, Segmented Neutrophils 71, Band Neutrophils 27 H, Absolute Lymphocytes 0.4 L, Lymphocytes 1 L, Monocytes 1 L, Absolute Monocytes 0.2, Absolute Eosinophils 0.1, Absolute Basophils 0, Platelet Estimate VERIFIED BY SMEAR, Anisocytosis 1+, PUBS MCHC 32.7 L 07/30/16 0830: Urine Osmolality Cancelled, Ur Random Creatinine Cancelled, Ur Random Sodium Cancelled, Ur Random Potassium Cancelled, Fraction Sodium Excret Cancelled Assessment/Plan Assessment: Patient did not require or receive any intravenous medications, including narcotics overnight as per the recommendations of the day team. She is stating that her pain is floridly uncontrolled and she is unwilling to participate in physical therapy or get out of bed to chair, or even shower. She is requesting an increase of her Benadryl to 50 mg by mouth. She is tolerating the Celebrex well but does not believe it is helping with her pain. She is consistently saying that her right upper extremity still painful and she is unable to move it. Patient is to be seen by occupational therapy for further evaluation of these findings. Patient was begun on Zoloft today that will be monitored as an outpatient. Novolog SSI was increased for persistently elevated blood sugars. Urine culture demonstrated growth of Klebsiella. For persistent/worsening bandemia infectious disease consult was placed. Case was discussed with Dr. Dunbar whom recommended trending lactic acid, intravenous hydration, following off macrodantin as patient consistent has positive urine culture without symptoms, and to consider IR aspiration of the hematoma to assess for occult infection. Case was discussed with Dr. Dunaway of interventional radiology whom determined that aspiration of the hematoma would most likely yield a sterile aspirate and potentially introduce a source of infection; however would consider the procedure should her clinical condition worsen. Patient was made NPO overnight in anticipation of this with celebrex and lovenox on hold. 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 -General medicine -Warm compresses -NO NARCOTICS -Celebrex 100mg PO BID -Acetaminophen 650 mg by mouth every 4 hours as needed (4 g daily maximum) -Physical therapy/occupational therapy evaluation Sepsis / Elevated Lactic Acid Patient meets criteria for SIRS with tachycardia, bandemia, and being febrile to 101.4. Patient also has several potential sites of infection. Lactic found to be elevated. -Trend Lactic acid until normal -Intravenous normal saline -Monitor for hemodynamic instability Hyponatremia Corrected sodium within normal limits. Urinary Tract Infection Patient denies any urinary frequency/urgency/burning pain. She has been incontinent secondary to refusing to ambulate to the restroom. She denies any saddle anesthia or fecal incontinence. -Urine culture: Klebsiella Anxiety/Depression -Propranolol 20mg PO BID -Zoloft 25 mg by mouth daily started -Psych consult Insulin Dependent Diabetes Mellitus -Accuchecks TIDAC/HS -Hold oral hypoglycemics -Novolog Sliding Scale insulin -Levemir on hold Right shoulder/arm pain Radiographs of the right upper extremity did not demonstrate any acute process. Peripheral Neuropathy- racquel 150mg PO BID Pain Plan- Celebrex, NO NARCOTICS Diet-NPO overnight, restart diabetic diet when able DVT PPx- Lovenox Code Status- FULL CODE Problem List: 1. Hip pain Pain Ratin Pain Location: Right hip Right arm Pain Goal: Pain 7 or less Pain Plan: As noted in plan Tomorrow's Labs & Rationales: CBC - sepsis BEP - hyponatremia KARIN CARPENTER MD 07/31/16 3344: Attending MD Review Statement Attending Statement Attending MD Statement: examined this patient, discuss w/resident/PA/BUTTERMILK DRIER OPERATOR, agreed w/resident/PA/BUTTERMILK DRIER OPERATOR, reviewed EMR data (avail), discussed with nursing, discussed with case mgmt, amended to note Attending Assessment/Plan: The patient was seen and discussed with house staff. Agree with the plan of care as outlined. ID input in morning.
[2016-07-31 08:36] LABS: ABSOLUTE BASOPHIL COUNT 0 /CUMM (0.0-0.2); ABSOLUTE EOSINOPHIL COUNT 0.1 /CUMM (0.0-0.7); ABSOLUTE GRANULOCYTE CT 11.9 /CUMM (1.4-6.5); ABSOLUTE LYMPH COUNT 0.5 /CUMM (1.2-3.4); ABSOLUTE MONOCYTE COUNT 0.1 /CUMM (0.10-0.60); BASOPHIL % 0 % (0.0-2.0); EOSINOPHIL % 0.9 % (0-5); GRANULOCYTE % 93.9 % (42.2-75.2); MEAN CORPUSCULAR HGB 26.6 PG (27.0-31.0); MEAN CORPUSCULAR HGB CONC 33.2 G/DL (33.0-37.0); MEAN CORPUSCULAR VOLUME 79.9 FL (81.0-99.0); MEAN PLATELET VOLUME 8.7 FL (7.4-10.4); PLATELET COUNT 207 /CUMM (130-400); RBC DISTRIBUTION WIDTH 17.3 % (11.5-14.5); RED BLOOD CELL CT 4.88 /CUMM (4.20-5.40); WHITE BLOOD CELL COUNT 12.7 /CUMM (4.8-10.8)
--- NOTE | 2016-07-31 09:59 | NUR ---
PHYSICAL THERAPY: ATTEMPTED TO SEE PATIENT THIS A.M. WITH OCCUPATIONAL THERAPY. PATIENT IS REFUSING TO TRANSFER OR AMBULATE. PATIENT STATES "MY PAIN IS TOO HIGH, I WILL NOT MOVE MY LEG, I HAVE A HEMATOMA IN MY HIP AND IT IS ALL BRUISED. I CANNOT MOVE MY ARM, IT IS ALL SWOLLEN. THEY JUST CHANGED ME AND THAT WAS AWFUL." PATIENT WAS EDUCATED ON BENEFITS OF MOBILITY, EFFECTS OF BEDREST, AND NEED FOR FURTHER ASSESSMENT. PATIENT CONTINUES TO REFUSE STATING "PLEASE JUST LET ME BE, LEAVE, I WANT TO BE ALONE." AND BECAME VISIBLY UPSET. P.T. TO F/U APPROPRAITE TOMORROW.
--- NOTE | 2016-07-31 11:38 | NUR ---
OCCUPATIONAL THERAPY NOTE: OT CONSULT RECEIVED AND CHART REVIEWED. BOTH OT AND PT PROVIDED MAXIMUM ENCOURAGEMENT AND EDUCATION OF BENEFITS OF MOBILITY TO PATIENT. PT C/O PAIN TO LEFT SHOULDER AND LEFT LEG REFUSING ALL AND ANY MOBILITY TODAY. OT WILL F/U WITH PT TOMORROW IF APPROPRIATE.
[2016-07-31 15:35] VITALS: BP 110/60
--- NOTE | 2016-07-31 17:41 | NUR ---
PT FSG AT DINNER 426 FIELD ARTILLERY CREWMEMBER GIANNI MADE AWARE AND INSULIN COVERAGE INCREASED 14 UNITS GIVEN PER NEW INSULIN SCALE. IVF ORDERED FOR PT. PT HAS NO IV ACCESS. EXTREMLY DIFFICULT STICK FIELD ARTILLERY CREWMEMBER AWARE OF NO LINE. ? PLAN TO INSERTR IV TOMORROW IN IR PER FIELD ARTILLERY CREWMEMBER GIANNI. WILL MONITOR
--- NOTE | 2016-07-31 22:00 | NUR ---
3-11 SHIFT NOTE. PT RESISTANT TO T/R TO OFFSET PRESSURE POINTS. PER REPORT PT WITH NECROTIC AREA TO R BUTTOCK. THIS RN UNABALE TO ASSESS. PT YELLIN AT THIS RN THAT PT WILL NOT BE TURNING. PT EDUCATED ON RISKS OF NOT CHANGING POSITIONS SUCH SKIN BREAKDOWN AND ULCER FORMATION . PER PT " I DONT CARE ". CUBE MACHINE TENDER BRITTANY AWARE OF PT REFUSAL OF NOT BEING REPOSITIONED. PT NONAMBULATORY AT THIS TIME. PER PT PAIN NOT CONTROLLED PAIN LEVEL 10/10 WITH NO RELIEF. CUBE MACHINE TENDER BRITTANY AND NADEEN BEYER MADE WELL AWARE. NO CHANGES MADE TO PAIN REGIME . RICE SOCKS HEATED FREQUENTLY TO ASSIST WITH PAIN RELIEF TO GROIN AND R HIP.PT YELLING OUT MOST OF SHIFT AND USING VULGARITIES AT STAFF. APOLOGETIC AT TIMES. INTERNS X 2 IN TO SEE PT. PT REFUSED LACTIC ACID BLOODRAWN AT 2100 IN ADDITION REFUSED VITALS AND ALPS. CUBE MACHINE TENDER PEPITO AWARE
[2016-08-01 06:40] VITALS: BP 112/56
--- NOTE | 2016-08-01 07:30 | PN- Housestaff ---
HIRAM FARFAN,DERECK 08/01/16 1498: Subjective Follow-up For: Pelvic hematoma Hyponatremia Polysubtance abuse Subjective: Patient seen and examined. She is seen lying flat in bed in mild discomfort. However she appears to be in no acute distress. She remains tearful and is requesting intravenous narcotic pain medications, specifically Dilaudid. She reports persistent severe pelvic pain and continues to decline any physical therapy. No new complaints at this time. Additionally she denies any fever, chills, chest pain, shortness of breath, nausea, vomiting, diarrhea, urinary frequency/urgency/burning/pain. Overnight patient requested multiple times from nursing/housestaff to be given intravenous narcotic pain medications and Benadryl. Review of Systems Constitutional: Reports: see HPI. Objective Last 24 Hrs of Vital Signs/I&O Vital Signs Date Time Temp Pulse Resp B/P Pulse O2 O2 Flow FiO2 Ox Delivery Rate 08/01 1531 Room Air Room Air 08/01 0918 90/50 08/01 0640 98.2 64 18 112/56 96 Room Air 07/31 1957 70 148/70 Intake & Output 08/01 1600 08/01 0800 08/01 0000 Intake Total 180 Output Total 900 Balance 180 -900 Intake, Oral 180 Output, Urine 900 Physical Exam General Appearance: Alert, Oriented X3, Cooperative, Mild Distress Other Physical Findings: General - well developed, well nourished obese woman in no acute distress HEENT - NCAT, PERRL, EOMI, anicteric sclera, EJ line in place on right neck, triple-lumen catheter in place on left neck CVS - S1, S2 w/o m/g/r Resp -CTA bilaterally GI - soft, obese, nontender, nondistended, bowel sounds intact Neuro - Awake and alert, argumentative and agitated, CN II - XII grossly intact Ext - normal pulses, no cyanosis/clubbing/edema, right upper extremity is tender to passive range of motion with no obvious deformity or bruising, sensation and pulses intact Current Medications: Current Medications Sig/Shahla Start time Last Medication Dose Route Stop Time Status Admin Acetaminophen 1,000 MG ONCE ONE 08/01 1630 DC N/A 1 UNIT IV 08/01 1644 Acetaminophen 650 MG .STK-MED ONE 08/01 0524 DC PO 08/01 0525 Acetaminophen 650 MG .STK-MED ONE 08/01 0148 DC PO 08/01 0149 Acetaminophen 650 MG Q4 HRS NEEDED PRN 07/31 0800 AC 08/01 PO 1038 Albuterol Sulfate 2 PUF Q4P PRN 07/30 2200 AC INH Ceftriaxone Sodium 1,000 MG DAILY 08/01 1545 AC IV Ceftriaxone Sodium 0 .STK-MED ONE 08/01 1308 DC .ROUTE Celecoxib 100 MG BID 08/01 2200 AC PO Diclofenac Sodium 1 DEMETRA TID PRN 07/30 1145 AC 08/01 TOP 1044 Diphenhydramine HCl 50 MG ONCE ONE 08/01 1630 DC IV 08/01 1631 Diphenhydramine HCl 75 MG Q6P PRN 07/31 1100 AC 08/01 PO 0900 Docusate Sodium 100 MG DAILY 07/31 1000 AC 08/01 PO 0903 Enoxaparin Sodium 40 MG DAILY 08/02 1000 AC SC Hydromorphone HCl 0.4 MG ONCE ONE 08/01 1515 DC 08/01 IV 08/01 1516 1538 Insulin Aspart 0 TIDAC/HS 08/01 0800 AC 08/01 SC 0917 Insulin Aspart 0 TIDAC 07/31 1700 DC 07/31 SC 1702 Insulin Detemir 60 UNITS BID 07/28 2200 AC 08/01 SC 0918 Lidocaine 1 PAT DAILY 07/28 1800 AC 07/28 EXT 2004 Miconazole Nitrate 1 DEMETRA AT BEDTIME 07/29 0130 AC 07/31 VAG 1958 Pregabalin 150 MG BID 07/28 2200 AC 08/01 PO 0917 Propranolol HCl 20 MG BID 07/28 2200 AC 08/01 PO 0918 Quetiapine Fumarate 100 MG AT BEDTIME 08/01 2200 AC PO Ramelteon 8 MG ONCE ONE 07/31 2145 DC 07/31 PO 07/31 2146 2200 Senna/Docusate Sodium 2 TAB DAILY 07/31 1000 AC PO Sertraline HCl 25 MG DAILY 07/31 1054 AC 08/01 PO 0902 Sodium Chloride 1,000 ML BOLUS ONE 08/01 1545 DC 08/01 IV 08/01 1644 1544 Sodium Chloride 250 ML BOLUS ONE 08/01 1515 DC 08/01 IV 08/01 1614 1505 Sodium Chloride 1,000 ML BOLUS ONE 08/01 1015 DC 08/01 IV 08/01 1114 1040 Sodium Chloride 500 ML BOLUS ONE 08/01 1015 CAN IV 08/01 1114 Sodium Chloride 1,000 ML Q8H 07/31 1515 AC IV Vancomycin HCl 1,250 MG Q12H 08/01 1600 AC Dextrose/Water 250 ML IV Last 24 Hrs of Lab/Haris Results Last 24 Hrs of Labs/Mics: Laboratory Tests 08/01/16 0958: Lactic Acid 4.0 H 08/01/16 0750: Anion Gap 10, Estimated GFR 55 L, BUN/Creatinine Ratio 38.2 H, CBC w Diff MAN DIFF ORDERED, RBC 4.48, MCV 80.3 L, MCH 26.4 L, RDW 17.0 H, MPV 8.9, Gran % 90.8 H, Lymphocytes % 6.3 L, Monocytes % 1.7, Eosinophils % 1.2, Basophils % 0 L, Absolute Granulocytes 8.2 H, Segmented Neutrophils 57, Band Neutrophils 31 H, Absolute Lymphocytes 0.6 L, Lymphocytes 6 L, Monocytes 4, Absolute Monocytes 0.2, Eosinophils 1, Absolute Eosinophils 0.1, Absolute Basophils 0, Metamyelocytes 1, Platelet Estimate VERIFIED BY SMEAR, Anisocytosis 1+, PUBS MCHC 32.9 L 07/31/16 2100: Lactic Acid Cancelled 07/31/16 1800: Lactic Acid 4.0 H Microbiology 08/01 1638 UPPER RESP: Surveillance Culture - ORD 08/01 1638 GI: Surveillance Culture - ORD 08/01 1522 BLOOD: Blood Culture - COLB 08/01 1522 BLOOD: Blood Culture - COLB 08/01 UNK TRUNK/O.R.: Culture & Sensitivity - RECD 08/01 UNK TRUNK/O.R.: Gram Stain - RECD Assessment/Plan Assessment: Patient was NPO overnight in anticipation for an potential intervention radiology procedure this morning pending potential imaging studies. A triple lumen catheter was placed in her left IJ in order to give constrast for chest/ abdomen/pelvis CT scan. The imaging demonstrated fluid accumulation in the abdomen for which roughly 300cc of pus was aspirated with drains put in place by interventional radiology. Patient reportedly became hypotensive during the procedure and was transferred to the ICU for closer monitoring. ID Consult placed, formal recommendations pending. 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 -General medicine -Warm compresses -NO NARCOTICS -Celebrex 100mg PO BID -Acetaminophen 650 mg by mouth every 4 hours as needed (4 g daily maximum) -Physical therapy/occupational therapy evaluation Sepsis / Elevated Lactic Acid Patient meets criteria for SIRS with tachycardia, bandemia, and being febrile to 101.4. Patient also has several potential sites of infection. Lactic found to be elevated. -Trend Lactic acid until normal -Intravenous normal saline -Monitor for hemodynamic instability Hyponatremia Corrected sodium within normal limits. Urinary Tract Infection Patient denies any urinary frequency/urgency/burning pain. She has been incontinent secondary to refusing to ambulate to the restroom. She denies any saddle anesthia or fecal incontinence. -Urine culture: Klebsiella Anxiety/Depression -Propranolol 20mg PO BID -Zoloft 25 mg by mouth daily started -Psych consult Insulin Dependent Diabetes Mellitus -Accuchecks TIDAC/HS -Hold oral hypoglycemics -Novolog Sliding Scale insulin -Levemir on hold Right shoulder/arm pain Radiographs of the right upper extremity did not demonstrate any acute process. Peripheral Neuropathy- racquel 150mg PO BID Pain Plan- Celebrex, NO NARCOTICS Diet-NPO overnight, restart diabetic diet when able DVT PPx- Lovenox Code Status- FULL CODE Problem List: 1. Hematoma Pain Ratin Pain Location: Pelvis Pain Goal: Remain pain free Pain Plan: As noted in plan Tomorrow's Labs & Rationales: As per ICU staff KARIN CARPENTER MD 08/01/16 2150: Attending MD Review Statement Attending Statement Attending MD Statement: examined this patient, discuss w/resident/PA/ABORIGINAL COMMUNITY COUNCIL MEMBER, agreed w/resident/PA/ABORIGINAL COMMUNITY COUNCIL MEMBER, reviewed EMR data (avail), discussed with nursing, discussed with case mgmt, reviewed images, amended to note Attending Assessment/Plan: The patient was seen and discussed with house staff. ID and IR input appreciated. S/P drainage of pelvic abscess. Agree with the plan of care to transfer to ICU for closer nursing observation due to low BP. Antibiotics as per ID.
[2016-08-01 08:39] LABS: ABSOLUTE BASOPHIL COUNT 0 /CUMM (0.0-0.2); ABSOLUTE EOSINOPHIL COUNT 0.1 /CUMM (0.0-0.7); ABSOLUTE GRANULOCYTE CT 8.2 /CUMM (1.4-6.5); ABSOLUTE LYMPH COUNT 0.6 /CUMM (1.2-3.4); ABSOLUTE MONOCYTE COUNT 0.2 /CUMM (0.10-0.60); BASOPHIL % 0 % (0.0-2.0); EOSINOPHIL % 1.2 % (0-5); GRANULOCYTE % 90.8 % (42.2-75.2); MEAN CORPUSCULAR HGB 26.4 PG (27.0-31.0); MEAN CORPUSCULAR HGB CONC 32.9 G/DL (33.0-37.0); MEAN CORPUSCULAR VOLUME 80.3 FL (81.0-99.0); MEAN PLATELET VOLUME 8.9 FL (7.4-10.4); PLATELET COUNT 216 /CUMM (130-400); RED BLOOD CELL CT 4.48 /CUMM (4.20-5.40)
--- NOTE | 2016-08-01 09:49 | NUR ---
PHYSICAL THERAPY: Pt RECIEVED IN BED WITH NURSING. REFUSING PT AT THIS TIME STATING "I PHYSICALY CAN NOT GET UP, AND HAVE BEEN MOVING MY L LEG AND ARMS MUCH I CAN". SHE WAS EDUCATED ON BENEFITS OF MOBILITY AND RISKS OF IMMOBILITY. DESPITE THIS EDUCATION Pt ADAMANTLY REFUSING. Pt TO HAVE R HIP DRAINED. WILL F/U TOMORROW APPROPRIATELY. THANK YOU.
--- NOTE | 2016-08-01 10:37 | Cons- Infect Disease ---
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, with initial source felt to be her abdominal wound from a previous colostomy, which was placed at the time of her Bianka's gangrene and eventually reversed, with a recurrent left perirenal abscess, treated with multiple courses of IV antibiotics, most recently hospitalized 3 months prior to admission with persistent pelvic pain after a previous fall that had resulted in a fracture of the right inferior pubic ramus, managed conservatively by Orthopedics, with recurrent MSSA bacteremia felt to be secondary to an infected Pro-Line, treated with a total of nearly 8 weeks of IV Oxacillin, which was completed 2 months prior to admission, with her hospital course also complicated by a right hemothorax, requiring a chest tube, seen in the emergency room several times after discharge with various complaints, most recent 5 weeks prior to admission, with a CT of the pelvis on one of those visits only revealing the right pubic fracture and a CT of the chest revealing a moderate right hemopneumothorax, admitted on July 27, 3 days after a fall with the complaint of right hip and pelvic pain and inability to walk. On admission she was afebrile. Laboratory data revealed a white blood cell count of 14,000, glucose 619, BUN/creatine 31 and 0.9, sodium 120, alk phosphatase 189. CT of the pelvis revealed old fractures of the right superior and inferior pubic rami with partial interval healing and with no acute fractures and a new right pelvic collection with mass effect upon the bladder, measuring 9.3 x 5.4 x 10.7 cm, suggestive of a hematoma. She was followed off antibiotics. She did have a fever to 101.4 on July 29 but has been otherwise afebrile with no complaints of chills or sweats. Her white blood cell count has remained elevated with bandemia. She has had persistent pain since admission, managed with Tylenol and Benadryl. She was begun on Nitrofurantoin yesterday because of a positive urine culture, but this was discontinued after discussion with me as she has had no urinary symptoms. She denies any respiratory or GI symptoms at this time. Allergies/Medications Allergies: Coded Allergies: codeine (Intermediate, HIVES 06/17/16) nickel (Intermediate, RASH 06/17/16) adhesive tape (Mild, RASH 06/17/16) duloxetine (Intermediate, NAUSEA 06/17/16) hydrocodone (GI UPSET (ESOPHAGITIS) 06/17/16) ibuprofen (GI UPSET (ESOPHAGITIS) 06/17/16) Home Med List: Albuterol Sulfate (Proair Hfa) 90 MCG HFA.AER.AD 2 PUF INH Q4-6 PRN PRN SOB ( Reported) Diphenhydramine HCl (Benadryl) 25 MG CAPSULE 1 CAP PO Q6 PRN ITCHING ( Reported) Ergocalciferol (Vitamin D2) (Drisdol) 50,000 UNIT CAPSULE 1 CAP PO QW Supplement Please take one of these medications every week for the next eight weeks. After that, you will be required to take one every two weeks for mainainance of your vitamin D Levels. Hydrocortisone Acetate (Micort-Hc) 2.5 % CREAM.APPL 1 DEMETRA TOP TID ITCHING ( Reported) Insulin Aspart (Novolog) 100 UNIT/ML VIAL 0 SC SEE ADMIN CRITERIA Diabetes Your insulin coverage was changed while in hospital. Sliding Scale Blood Sugar Less that 80mg/dl Initiate Hypoglycemia protocol 80-150 mg/dl 12 units 151-200 mg/dl 14 units 201-250 mg/dl 16 units 251-300 mg/dl 18 units 301-350 mg/dl 20 units 351-400 mg/dl 22 units More than 400 mg/dl 24 units call MD Please check your blood sugar at least three times a day. Inform your airveyor operator about this change. 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 Hepatic: NONE Renal: left pararenal abscess Musculoskeletal: OSTEOMYELITIS OF PUBIS PUBIS FX Psychiatric: anxiety, chronic pain disorder, depression, opioid dependence, POLYSUBSTANCE ABUSE NARCOTIC DEPENDENCE SUICIDAL IDEATION Endocrine: INSULIN DEPENDENT DIABETES - noncompliant Blood Disorders: anemia Cancer(s): NONE 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 FH: cirrhosis Psychosocial History Where Do You Live? Home Who Do You Live With? with friend Primary Language: Spanish Smoking Status: Current Everyday Smoker ETOH Use: denies use Living Will? no Power of [place]/HCP? no Functional Ability ADLs Independent: dressing, eating, toileting, bathing. Ambulation: independent IADLs Independent: shopping, housework, finances, food prep, telephone, transportation , medication admin. Review of Systems Review of Systems All Other Systems: Reviewed and Negative Exam & Diagnostic Data Last 24 Hrs of Vital Signs/I&O Vital Signs Date Time Temp Pulse Resp B/P Pulse O2 O2 Flow FiO2 Ox Delivery Rate 08/01 0918 90/50 08/01 0640 98.2 64 18 112/56 96 Room Air 07/31 1957 70 148/70 07/31 1535 98.1 95 20 110/60 97 Room Air Intake & Output 08/01 1600 08/01 0800 08/01 0000 Intake Total 180 Output Total 900 Balance 180 -900 Intake, Oral 180 Output, Urine 900 Physical Exam Other Physical Findings: She is awake and alert in no acute distress but tearful and hysterical upon any attempts to examine her. She is afebrile. Skin reveals scattered excoriations. HEENT exam 2 fluctuant collections on her scalp, exquisitely tender to palpation. Neck is supple with no adenopathy. Lungs are clear. Heart regular rhythm with no murmur. Abdomen is obese, soft, nontender with positive bowel sounds. Back no CVA tenderness. Extremities right thigh swelling, tender to minimal palpation, with no overlying erythema; right knee unable to evaluate secondary to pain; right upper extremity erythema, swelling and tenderness to palpation particularly around the right elbow, with good range of motion of the right elbow; no cyanosis or clubbing of the lower extremities. Neuro is without focality. Last 24 Hours of Lab Results: Laboratory Tests 08/01 08/01 07/31 0958 0750 2100 Chemistry Sodium (137 - 145 mmol/L) 127 L Potassium (3.5 - 5.1 mmol/L) 4.7 Chloride (98 - 107 mmol/L) 96 L Carbon Dioxide (22 - 30 mmol/L) 21 L Anion Gap (5 - 16) 10 BUN (7 - 17 mg/dL) 42 H Creatinine (0.5 - 1.0 mg/dL) 1.1 H Estimated GFR (>60 ml/min) 55 L BUN/Creatinine Ratio (7 - 25 %) 38.2 H Lactic Acid Pending Cancelled Hematology CBC w Diff MAN DIFF ORDERED WBC (4.8 - 10.8 /CUMM) 9.0 RBC (4.20 - 5.40 /CUMM) 4.48 Hgb (12.0 - 16.0 G/DL) 11.8 L Hct (37 - 47 %) 36.0 L MCV (81.0 - 99.0 FL) 80.3 L MCH (27.0 - 31.0 PG) 26.4 L RDW (11.5 - 14.5 %) 17.0 H Plt Count (130 - 400 /CUMM) 216 MPV (7.4 - 10.4 FL) 8.9 Gran % (42.2 - 75.2 %) 90.8 H Lymphocytes % (20.5 - 51.1 %) 6.3 L Monocytes % (1.7 - 9.3 %) 1.7 Eosinophils % (0 - 5 %) 1.2 Basophils % (0.0 - 2.0 %) 0 L Absolute Granulocytes (1.4 - 6.5 /CUMM) 8.2 H Segmented Neutrophils (42.2 - 75.2 %) 57 Band Neutrophils (0.0 - 5.0 %) 31 H Absolute Lymphocytes (1.2 - 3.4 /CUMM) 0.6 L Lymphocytes (20.5 - 51.1 %) 6 L Monocytes (1.7 - 9.3 %) 4 Absolute Monocytes (0.10 - 0.60 /CUMM) 0.2 Eosinophils (0 - 5.0 %) 1 Absolute Eosinophils (0.0 - 0.7 /CUMM) 0.1 Absolute Basophils (0.0 - 0.2 /CUMM) 0 Metamyelocytes (0.0 - 1.0 %) 1 Platelet Estimate (ADEQUATE) VERIFIED BY SMEAR Anisocytosis 1+ PUBS MCHC (33.0 - 37.0 G/DL) 32.9 L 07/31 07/31 1800 1330 Chemistry Lactic Acid (0.7 - 2.1 mmol/L) 4.0 H 4.4 H Last 24 Hours of [place] Results: Blood cultures 2 July 29 negative Urine culture July 29 greater than 100,000 colonies of Klebsiella resistant to Ampicillin Diagnostic Data Recent Imaging Findings: CT of the pelvis July 27 revealed old fractures of the right superior and inferior pubic rami with partial interval healing and with no acute fractures and a new right pelvic collection with mass effect upon the bladder, measuring 9.3 x 5.4 x 10.7 cm, suggestive of a hematoma X-rays of the right humerus and forearm negative Assessment/Plan Assessment/Plan Impression: This is a 40-year-old woman with diabetes, polysubstance abuse and recurrent infections, most frequently secondary to MSSA, recently treated with a nearly 8 week course of IV Oxacillin, which was completed 2 months prior to admission, with frequent falls that have resulted in pelvic fractures, managed conservatively, admitted on July 28 after another fall with the complaint of severe pelvic pain, found to be afebrile with a mild leukocytosis, with a CT scan revealing a pelvic collection suggestive of a hematoma, but with intermittent fevers and persistent leukocytosis (though her white blood cell count has decreased today) with bandemia. I am concerned about a recurrent or residual infection, with the right pelvic collection a possible source, especially with her pain, perhaps related to her previous fracture, though intervening imaging, including a white blood cell scan on her recent admission, have been negative for any suggestion of infection in this area. Other possible sources of infection include her right upper extremity, perhaps a bursitis, with evidence of inflammation on exam, the scalp lesions, which appear fluctuant, the urinary tract, with her positive urine culture, though she has no urinary symptoms, and the lungs, given her recent hydropneumothorax. Finally endocarditis must again be considered, particularly with her multiple potential foci of infection. Further evaluation will be necessary to identify the source of her presumed infection. Unfortunately her underlying psychological issues and drug dependence make her evaluation difficult. Suggestion: 1. Would pursue CT-guided aspiration of her right pelvic collection (discussed with IR) 2. Would include CT of the chest and right upper extremity with her repeat CT of the abdomen and pelvis (that has been requested by IR with IV contrast) 3. Orthopedic evaluation of her right upper extremity and nonhealing pelvic fractures 4. General or plastic surgery evaluation for I&D of her scalp lesions 5. Will need to establish adequate IV access (for example with a triple lumen catheter) 6. Repeat blood cultures 2 today 7. Would continue to follow off antibiotics pending above Consult Acknowledgment - Thank you for your consult request.
--- NOTE | 2016-08-01 10:39 | PN- Psychiatry ---
Assessment/Plan Impression: The patient is awaiting a decision of whether her hematoma will be aspirated today. Her Celebrex for pain is on hold and she is NPO pending a decision on the procedure. The patient has not been up and working with PT yet. She is agreeable to come to OPS for further evaluation and treatment of her anxiety. The patient verbalizes understanding that she must not use street drugs, specifically PCP, cocaine and cannabis. She is agreeable to re-start quetiapine to help her sleep, and reports that Benadryl is helpful, too. She agrees to continue Zoloft, and reports she is tolerating it well. Suggestion: 1. Continue sertraline/Zoloft 25 mg PO daily. May be advanced to 50 mg PO daily after one week. Further titration may be necessary to effect. This is prescribed to help with depression, panic disorder, generalized anxiety disorder (An off- label use). a. Monitor EKG and stop this medication if arrythmia or QTc greater than 475 mS. b. Stop this medication if exacerbation of hyponatremia. 2. Please start quetiapine 100 mg PO at bedtime. a. Monitor EKG and stop this medication if arrythmia or QTc greater than 475 mS. b. Monitor and replete electrolytes, especially potassium and magnesium. 3. On the W-10 and the discharge instructions, please ask the receiving facility /ECF to call and make an intake appointment at [facility], [address] [place] [address] when her discharge date is known, . We will continue to follow along with you. Deonte Patrick APRN, Pager [phone] Subjective Subjective: A+OX4 Denies SI/HI Reports some mild depression; "I was anxious when the doctors were in here." Patient does not scale either mood. She is tearful secondary to pain in her right arm, right hip and shoulder. Insight and judgment intact. Thought processes logical and linear. Objective Last 24 Hrs of Vital Signs/I&O Vital Signs Date Time Temp Pulse Resp B/P Pulse O2 O2 Flow FiO2 Ox Delivery Rate 08/01 0918 90/50 08/01 0640 98.2 64 18 112/56 96 Room Air 07/31 1957 70 148/70 07/31 1535 98.1 95 20 110/60 97 Room Air Intake & Output 08/01 1600 08/01 0800 08/01 0000 Intake Total 180 Output Total 900 Balance 180 -900 Intake, Oral 180 Output, Urine 900
--- NOTE | 2016-08-01 11:29 | NUR ---
LATE ENTRY: PT'S BP NOTED TO BE 90/50 WITHOUT SYMPTOMS. PATIENT IS A/OX3. DR. DERECK GANDHI & DR. BLACKBURN AT THE BEDSIDE. AWARE OF BP. PT DOES NOT HAVE IV ACCESS AT THIS TIME. PENDING IJ PLACEMENT. WILL RESUME BOLUS FLUIDS AT THAT TIME PER DR. GANDHI. HELD AM DOSE OF PROPANOLOL. WILL CONT TO MONITOR.
--- NOTE | 2016-08-01 12:27 | NUR ---
OCCUPATIONAL THERAPY NOTE: PT REFUSING OT AND PT INTERVENTION. PT STATES SHE IS IN PAIN AND CAN NOT PARTICIPATE. OT WILL F/U ON THURSDAY IF APPROPRIATE.
--- NOTE | 2016-08-01 13:35 | CT SCAN REPORT ---
EXAMINATION: CT CHEST WITHOUT IV CONTRAST CT ABDOMEN AND PELVIS WITH IV CONTRAST CLINICAL INFORMATION: 40-year-old female with sepsis, trauma and central line placement. Evaluate for fracture, abscess and occult disease. Also, history of pelvic hematoma and renal abscess. Evaluate for abscess. COMPARISON: CT of the chest, abdomen and pelvis from 06/12/2016. CT of the pelvis from 07/27/2016. TECHNIQUE: Noncontrast multidetector CT imaging of the chest was performed. Subsequently, multidetector CT imaging evaluation of the abdomen and pelvis was performed with intravenous administration of 95 mL of Optiray 320 nonionic contrast material. Coronal and sagittal reformatted images were generated at the technologist's workstation and submitted for review. DLP: 2209 mGy-cm FINDINGS: CHEST - LUNGS and PLEURA: Trachea and central airways are widely patent and normal in caliber. Stable 0.4 cm subpleural nodule in the lateral aspect of the posterior segment of the right upper lobe (image 211, series 4). Small, 0.2 cm nodular focus is present within the anterior segment of the right upper lobe (image 213, series 4). Discoid atelectasis within the lateral segment of the right middle lobe is seen in a region of prior consolidation. Curvilinear opacity of scarring within the middle lobe, as well. A small, loculated, posteroinferiorly located right pleural effusion is surrounded by thickened visceral and parietal pleura. The pleural fluid has attenuation of approximately 30-35 Hounsfield units, and the size of the pleural collection has decreased compared to 06/12/2016. The right lower lobe is partially collapsed. The consolidation and/or rounded atelectasis in the right lower lobe remains similar in appearance compared to 06/12/2016. There is a stable 0.2 cm nodule within the superior segment of the left lower lobe (image 220, series 4). No acute findings within the left lung. MEDIASTINUM: There is a left IJ central catheter in satisfactory position, its tip terminating in the distal superior vena cava. Cardiac chambers, pulmonary arteries and thoracic aorta are normal in caliber. No pericardial effusion. The esophagus and thyroid gland are grossly unremarkable. LYMPHATICS: No pathologic sized axillary or hilar lymph nodes. Subcarinal lymph node is approximately 1 cm AP. No enlarging mediastinal lymph nodes. CHEST WALL/BONES: There is edema within subcutaneous tissues predominantly observed posterior to the right shoulder without focal fluid collection in this region. The underlying muscles appear swollen and without focal intramuscular collection. This could represent posttraumatic soft tissue contusion. No evidence of scapular fracture or glenohumeral joint effusion. No acute, displaced right rib fractures. ABDOMEN AND PELVIS - HEPATOBILIARY: There is hepatomegaly without focal hepatic lesion or intrahepatic bile duct dilatation. Gallbladder is unremarkable. PANCREAS: Unremarkable. SPLEEN: Prominent spleen is 14.7 cm craniocaudal and not significantly changed in size compared to 06/12/2016. No focal splenic lesions. ADRENAL GLANDS: Unremarkable. KIDNEYS, URETERS, BLADDER: Kidneys are normal in size and enhance symmetrically. No nephrolithiasis, hydronephrosis or perinephric fluid collection. The ureters are normal in caliber. Urinary bladder is compressed and displaced by the complex right pelvic fluid collection, which remains similar in size compared to 07/27/2016. GASTROINTESTINAL TRACT: Stomach is unremarkable. Loops of bowel remain normal in caliber. No evidence of acute inflammation or obstruction along the gastrointestinal tract. The appendix is normal. ABDOMINAL WALL: There is a small fat-containing umbilical hernia. Edema is present within subcutaneous tissues of the flanks and thighs (right more so than left). VASCULAR: Mild atherosclerotic calcification of the abdominal aorta without aneurysm. Inferior vena cava is unremarkable. The right iliac vessels are medially displaced by the persistent fluid collection extending along the distal right iliopsoas muscle. LYMPH NODES: No pathologic sized lymph nodes. Within the infrarenal region, an aortocaval lymph node is 0.8 cm short axis dimension, unchanged. PELVIC VISCERA: Uterus and ovaries are grossly unremarkable. MUSCULOSKELETAL STRUCTURES: Again noted are mildly displaced fractures of right pubic rami. A multiloculated fluid collection within the right pelvis that extends along the distal right iliopsoas and medial to the right obturator internus has a component that exerts mass effect upon the urinary bladder. The collection is difficult to precisely measure given its multiloculated nature and craniocaudal extension. It measures approximately 7.3 cm transverse, 12.5 cm AP and 14 cm craniocaudal and remains similar in size compared to 07/27/2016. The loculated fluid has attenuation in the range of 15-40 Hounsfield units. This could represent complex hematoma and/or abscess. A component of the collection extends posterolaterally along the obturator internus to the posterior hip region. Also, there appears to be a separate collection overlying the right greater trochanter, suggestive of trochanteric bursitis, and a small amount of fluid extends superiorly between the gluteus medius and ashley muscles, as well (images [id number], series 6). At L4-L5, there is chronic endplate erosion and vertebral sclerosis; this could be the sequela of prior discitis-osteomyelitis. There is no paraspinal fluid collection at this level. IMPRESSION: 1. 1. Loculated right pleural effusion has decreased in size compared to 06/12/2016. The loculated fluid has relatively high attenuation and there is persistent thickening of the visceral and parietal pleura. This could represent a decreasing hemothorax or pyothorax. The right lower lobe atelectasis/consolidation remains similar in appearance compared to 06/12/2016. 2. Complex, multiloculated fluid collection in the right pelvis (possibly an infected collection/abscess) exerts mass effect upon the bladder and has a component that travels along the right obturator internus muscle toward the posterior hip. Compared to 07/27/2016, there is a new, small amount of fluid in the right greater trochanteric bursa, suggestive of bursitis. Also, there is a new, small amount of fluid that tracks superiorly from this level between the gluteus muscles. Other findings, as noted above.
--- NOTE | 2016-08-01 15:46 | NUR ---
wound care: reviewed skin integrity reported by icu staff - pt has an unstageable pressure injury to right buttocks 80% thick black eschar 20% nonviable red hue to wound edges - periwound erythematous rash extending across gary buttocks extending to ischium and posterior superior thighs with satelite lesions present - lft buttocks also noted with stage 2 pressure injury clean red fill - pt cont to refuse repositioning and wound consultations despite education recommendation: clinitron mattress or group 2 mattress if pt cont to refuse specialty mattress - pt wound benefit from surgical consult to score necrotic tissue prior to application of enzymatic debridement agent - cleanse buttocks wound with ns fb santyl ointment, xeroform, and dpd daily - cont to encourage repostioning in bed please
--- NOTE | 2016-08-01 15:53 | Event Note ---
See Addendum Event Note Event Note: Pt transferred to ICU after IR drainage of pelvic abscess due to hypotension. I spoke to Dr. Dunbar over the phone about starting her on antibiotics and he recommended starting ceftriaxone 1gm daily and vancomycin 1.25g q12. Can also wait to obtain ortho and gen surg consult. Current active meds: Ceftriaxone Vancomycin Celecoxib 100 bid Diclofenac Lyrica 150 bid Lidocaine patch Benadryl po 75 q6P Sertraline 25 daily (may be advanced to 50 mg PO daily after one week, watch for hyponatremia) Quetiapine 100 mg PO at bedtime Propanolol 20 bid Novolog tidac/qhs Levemir 60 bid Senna Docusate Miconazole Lovenox Plan: - On the W-10 and the discharge instructions, please ask the receiving facility/ ECF to call and make an intake appointment at [facility], [address] [place] [address] when her discharge date is known, . - Minimize narcotics, if needed, she can get dilaudid 0.6mg q6 - Avoid benzo given hx of benzo dependence - Pt will be discharged to rehab - Consider ortho consult for right upper extremity possible bursitis? - Consider gen surg/plastic surg for aspiration/biopsy of scalp lesion..seeding of MSSA?
--- NOTE | 2016-08-01 15:58 | Cons- CRCU ---
ANG FARFAN,SWETHA 08/01/16 1553: General Information and HPI Consulting Request Date of Consult: 08/01/16 Requested By: Dr. Bean Reason for Consult: Hypotension sp IR abscess drainage History of Present Illness: Pt transferred to ICU after IR drainage of pelvic abscess due to hypotension. I spoke to Dr. Dunbar over the phone about starting her on antibiotics and he recommended starting ceftriaxone 1gm daily and vancomycin 1.25g q12. Can also wait to obtain ortho and gen surg consult. Allergies/Medications Allergies: Coded Allergies: codeine (Intermediate, HIVES 06/17/16) nickel (Intermediate, RASH 06/17/16) adhesive tape (Mild, RASH 06/17/16) duloxetine (Intermediate, NAUSEA 06/17/16) hydrocodone (GI UPSET (ESOPHAGITIS) 06/17/16) ibuprofen (GI UPSET (ESOPHAGITIS) 06/17/16) Home Med List: Albuterol Sulfate (Proair Hfa) 90 MCG HFA.AER.AD 2 PUF INH Q4-6 PRN PRN SOB ( Reported) Diphenhydramine HCl (Benadryl) 25 MG CAPSULE 1 CAP PO Q6 PRN ITCHING ( Reported) Ergocalciferol (Vitamin D2) (Drisdol) 50,000 UNIT CAPSULE 1 CAP PO QW Supplement Please take one of these medications every week for the next eight weeks. After that, you will be required to take one every two weeks for mainainance of your vitamin D Levels. Hydrocortisone Acetate (Micort-Hc) 2.5 % CREAM.APPL 1 DEMETRA TOP TID ITCHING ( Reported) Insulin Aspart (Novolog) 100 UNIT/ML VIAL 0 SC SEE ADMIN CRITERIA Diabetes Your insulin coverage was changed while in hospital. Sliding Scale Blood Sugar Less that 80mg/dl Initiate Hypoglycemia protocol 80-150 mg/dl 12 units 151-200 mg/dl 14 units 201-250 mg/dl 16 units 251-300 mg/dl 18 units 301-350 mg/dl 20 units 351-400 mg/dl 22 units More than 400 mg/dl 24 units call MD Please check your blood sugar at least three times a day. Inform your auto specialty services manager about this change. Insulin Detemir (Levemir) 100 UNIT/ML VIAL 60 UNITS SC BID DM Pregabalin (Lyrica) 150 MG CAPSULE 1 CAP PO BID NEUROPATHY (Reported) Propranolol HCl 20 MG TABLET 1 TAB PO BID ANXIETY (Reported) Quetiapine Fumarate 100 MG TABLET 100 MG PO AT BEDTIME ANXIETY/SLEEP Past History Travel History Traveled to [place] past 21 day No Medical History Blood Transfusion Hx: Yes Neurological: NONE EENT: hearing loss Cardiovascular: NONE Respiratory: asthma, S/P CHEST TUBE 05/2016 Gastrointestinal: necrotizing fasciitis of the perineum S/P COLOSTOMY Hepatic: NONE Renal: left pararenal abscess Musculoskeletal: OSTEOMYELITIS OF PUBIS PUBIS FX Psychiatric: anxiety, chronic pain disorder, depression, opioid dependence, POLYSUBSTANCE ABUSE NARCOTIC DEPENDENCE SUICIDAL IDEATION Endocrine: INSULIN DEPENDENT DIABETES - noncompliant Blood Disorders: anemia Cancer(s): NONE 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 FH: cirrhosis Psychosocial History Where Do You Live? Home Who Do You Live With? with friend Primary Language: Bermudian Smoking Status: Current Everyday Smoker ETOH Use: denies use Living Will? no Power of Making Department Preparer/HCP? no Functional Ability ADLs Independent: dressing, eating, toileting, bathing. Ambulation: independent IADLs Independent: shopping, housework, finances, food prep, telephone, transportation , medication admin. Exam & Diagnostic Data Last 24 Hrs of Vital Signs/I&O Vital Signs Date Time Temp Pulse Resp B/P Pulse O2 O2 Flow FiO2 Ox Delivery Rate 08/01 1531 Room Air Room Air 08/01 0918 90/50 08/01 0640 98.2 64 18 112/56 96 Room Air 07/31 1957 70 148/70 Intake & Output 08/01 1600 08/01 0800 08/01 0000 Intake Total 180 Output Total 900 Balance 180 -900 Intake, Oral 180 Output, Urine 900 Last 48 Hrs of Labs/Haris: Laboratory Tests 08/01/16 0958: Lactic Acid 4.0 H 08/01/16 0750: Anion Gap 10, Estimated GFR 55 L, BUN/Creatinine Ratio 38.2 H, CBC w Diff MAN DIFF ORDERED, RBC 4.48, MCV 80.3 L, MCH 26.4 L, RDW 17.0 H, MPV 8.9, Gran % 90.8 H, Lymphocytes % 6.3 L, Monocytes % 1.7, Eosinophils % 1.2, Basophils % 0 L, Absolute Granulocytes 8.2 H, Segmented Neutrophils 57, Band Neutrophils 31 H, Absolute Lymphocytes 0.6 L, Lymphocytes 6 L, Monocytes 4, Absolute Monocytes 0.2, Eosinophils 1, Absolute Eosinophils 0.1, Absolute Basophils 0, Metamyelocytes 1, Platelet Estimate VERIFIED BY SMEAR, Anisocytosis 1+, PUBS MCHC 32.9 L 07/31/16 2100: Lactic Acid Cancelled 07/31/16 1800: Lactic Acid 4.0 H 07/31/16 1330: Lactic Acid 4.4 H 07/31/16 0740: Anion Gap 10, Estimated GFR > 60, BUN/Creatinine Ratio 43.8 H, CBC w Diff MAN DIFF ORDERED, RBC 4.88, MCV 79.9 L, MCH 26.6 L, RDW 17.3 H, MPV 8.7, Gran % 93.9 H, Lymphocytes % 4.3 L, Monocytes % 0.9 L, Eosinophils % 0.9, Basophils % 0 L, Absolute Granulocytes 11.9 H, Segmented Neutrophils 60, Band Neutrophils 33 H, Absolute Lymphocytes 0.5 L, Lymphocytes 2 L, Monocytes 4, Absolute Monocytes 0.1 L, Eosinophils 1, Absolute Eosinophils 0.1, Absolute Basophils 0, Platelet Estimate ADEQUATE, Normocytic RBCs VERIFIED, Normochromic RBCs VERIFIED, PUBS MCHC 33.2 Assessment/Plan Impression/Plan: 40-year-old lady with a PMH of diabetes, previous right-sided hemorrhagic pleural effusion S/P Pleurx catheter, lytic therapy 2, previous MSSA sepsis likely secondary to pro-line catheter, previous necrotizing fasciitis of the perineum, left pararenal abscess, osteomyelitis of pubic bone, polysubstance abuse, depression, opiate dependence who presented with complaints of right-sided hip pain, s/p aspiration of 300 ml of purulent fluid, by Dr. Kathryn Sam on 08/01/16, subsequently found to be hypotensive, requiring close monitoring in the ICU. Cardiovascular # Hypotension * IJ central line in place * Continue NS 125 ml/hr, bolus as needed * Consider levophed if continues to be hypotensive ID # Pelvic abscess sp IR drainage * On Ceftriaxone and Vancomycin * For pain, continue Celecoxib 100 bid, Diclofenac, Lyrica 150 bid, Lidocaine patch, Benadryl po 75 q6P * F/U cultures * Consider ortho consult for right upper extremity possible bursitis? * Consider gen surg/plastic surg for aspiration/biopsy of scalp lesion..seeding of MSSA? * Plan for discharge to rehab * Continue Miconazole * Minimize narcotics, if needed, she can get dilaudid 0.6mg q6 * Avoid benzo given hx of benzo dependence * The tube should be open to external gravity drainage via drainage bag. Tube should be flushed Q shift with 10 mL normal saline. Strict output should be measured, not including these flushes. Psych # Depression * Continue Sertraline 25 daily (may be advanced to 50 mg PO daily after one week , watch for hyponatremia) * Started Quetiapine 100 mg PO at bedtime * Continue Propanolol 20 bid * On the W-10 and the discharge instructions, please ask the receiving facility/ ECF to call and make an intake appointment at [facility], [address] [place] [address] when her discharge date is known, . Endocrinology # Diabetes mellitus * Novolog tidac/qhs * Levemir 60 bid * Watch blood sugar closely * Consider endo consult Alimenrary * Continue Senna, Docusate Diet: CC2 DVT ppx: alps and Lovenox FC Consult Acknowledgment - Thank you for your consult request. MIR RAMON MD 08/01/16 9057: Assessment/Plan Other Findings/Comments: Mir Escobar M.D. 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 The past history and parts of the chart have been autopopulated. TTS 40 min Consult Acknowledgment - Thank you for your consult request.
[2016-08-01 16:00] VITALS: BP 100/48
--- NOTE | 2016-08-01 16:33 | CT SCAN REPORT ---
CLINICAL HISTORY: This patient is a 40 years old Female with right pelvic collection. Aspiration and possible drainage catheter is requested. PROCEDURES: 1. Limited CT of the pelvis. 2. Placement of a 10 Fr locking all-purpose drainage catheter under CT-guidance. PHYSICIANS: Dr. Kathryn Sam (attending). MONITORING: The procedure was performed with total intravenous anesthesia. MEDICATIONS: 1 g ceftriaxone IV COMPLICATIONS: None. ESTIMATED BLOOD LOSS: <5 mL SPECIMENS: Purulent fluid. TOTAL DLP: 2814.73 mGy-cm. PROCEDURE NOTE: Informed consent was obtained from the patient prior to the procedure. During this process, the procedure and potential alternatives were explained along with the intended outcome and benefits. The risks of the procedure, including the possibility of an unsuccessful procedure, as well as the risk of not doing the procedure, were discussed. The patient was given the opportunity to ask questions regarding the procedure and appeared competent to make decisions. A signed consent form documenting this discussion was placed in the medical record. A time-out procedure was performed. The patient was placed in the supine position on the CT table. A limited CT of the pelvis was performed to localize the collection and choose appropriate needle access entry point and trajectory. The anterior lower abdomen was prepped and draped in usual sterile fashion. The skin and subcutaneous tissues were anesthetized with lidocaine. Under CT-guidance, a 6 Fr One Step catheter was advanced into the fluid collection right lateral of the bladder. Purulent fluid was aspirated. A 0.035 in Amplatz super stiff wire was advanced through the needle and coiled in the fluid collection. The needle was removed and exchanged for serial fascial dilators followed by a 10 Fr locking all-purpose catheter. Catheter position within the fluid collection was confirmed by CT evaluation. The wire was removed from the catheter and the tip was coiled within the fluid collection, again confirmed by CT evaluation. Maximal aspiration was performed which indicated partial decompression of the adjacent iliopsoas and posterior ischial fluid collections. Resistance was encountered to further aspiration. Using the plastic stiffener, the drain was advanced deeper into the collection adjacent to the bladder and air was injected through the tube. A repeat scan was performed demonstrating a tiny loculation of air any additional fluid collections. Therefore, the tearing was advanced slightly more deeply into the collection and purulent fluid once again flowed quite easily from the pigtail catheter. A total of 300 mL of purulent fluid was aspirated. A post scan demonstrated decompression at all 3 sites. At the end of the procedure, the patient's blood pressure began to decline and it was decided to transfer the patient to the ICU for further care. The drain was sutured to skin with 0 silk suture and a StatLock device. Samples were sent for microbiology. FINDINGS: 1. Fluid collection located in the pelvis with CT appearance of complex fluid. 2. Successful placement of a 10 Fr locking all-purpose drainage catheter into the fluid collection. IMPRESSION: Successful drainage of a right pelvic abscess and placement of a drainage catheter. PLAN: 1. The patient was stable after the procedure and was transferred to the ICU. 2. The tube should be open to external gravity drainage via drainage bag. 3. Tube should be flushed Q shift with 10 mL normal saline. Strict output should be measured, not including these flushes.
--- NOTE | 2016-08-01 21:11 | NUR ---
NOTIFIED MD DELONG OF PT MANUAL BP 82/48, PER MD THIS IS PT BASELINE BP. NO FURTHER INTERVENTIONS GIVEN.
--- NOTE | 2016-08-01 22:39 | NUR ---
PT MANUAL BP 78/42 NOTIFIED MD MOON, 1LNS BOLUS ORDERED AND HUNG. PT BLOOD SUGAR 75, HAS BEEN SLEEPING MOST OF SHIFT, PT UP AND EATING CHEESEBURGER AND SODA PER PT REQUEST. PT VERY UPSET WHEN DISCUSSING NEED FOR CHANGING INCONTINENCE PAD, EXPLAINED IMPORTANCE OF KEEPING HER CLEAN AND DRY D/T MULTIPLE SKIN ISSUES, PT VERY RELUCTANT. OFFERED EMOTIONAL SUPPORT AT THIS TIME
[2016-08-02] VITALS: BP 78/40
--- NOTE | 2016-08-02 00:30 | Event Note ---
Event Note Event Note: It was reported that patient has persistent low BP, which is not responding to fluid rescusitation. Chart was reviewed Patient was admitted for new right sided hip mass (hematoma vs abscess) in CT scan after sustaining a mechanical fall. Her labs were also remarkable for elevated WBC and also LA of 4, which did not decreased since 07/31/2016. ROS: patient is complaining of pain, tearful (base line), and asking for IV benedryl PH/EX: AOx3; Central line is in IJ Heart: WNL, -JVD; Lungs: clear Abscess drainage is functional, brownish-prulent discharge. urinary incontinence ( base line). List of DDx In the setting of hypotension and elevated lactic acid and clear source of infection the most improtant diagnoses are : 1) sepsis Vs septic shock: patient does not maintain her BP and has elevated LA, which in turn indicates organ hypoperfusion, though, in the review of her prior labs she did not have any eveidence of EOD. 2) Medication side effect: Another possibility for elevation of her LA is medication such as Albuterol and inderal ( which she is on). Other mdication, Seroquel also associated with sever hypotension. Narcotic pain meds( specially Morphine family: e.g Dilaudid) could also contributes to her condition. Plan 1) repeat labs stat: CBC and ICU bunddle: looking for evidence of end organ damage. 2) trending lactic acid- expect 20% reduction ( in case of effective rescusitation) 3) stop the anti HTN medication and possible Seroquel ( if remaiend persistently hypotenssive) 4) continue Abx as is 5) possible CRCU consult in the am- per medical team 6) avoid dilaudid and inderal 7) pain management w/ po acteminophen and IV tylenol for mild-moderate and severe pain, respectively. 8) start Levophed drip; titrate Per MAP w/ the goal of 65 mmhg 9) continue IV fluid resuscitation 10) FC
[2016-08-02 00:45] LABS: ABSOLUTE BASOPHIL COUNT 0 /CUMM (0.0-0.2); ABSOLUTE EOSINOPHIL COUNT 0.1 /CUMM (0.0-0.7); ABSOLUTE GRANULOCYTE CT 10.7 /CUMM (1.4-6.5); ABSOLUTE LYMPH COUNT 0.5 /CUMM (1.2-3.4); ABSOLUTE MONOCYTE COUNT 0.1 /CUMM (0.10-0.60); BASOPHIL % 0 % (0.0-2.0); GRANULOCYTE % 94.4 % (42.2-75.2); MEAN CORPUSCULAR HGB 26.6 PG (27.0-31.0); MEAN CORPUSCULAR HGB CONC 32.7 G/DL (33.0-37.0); MEAN CORPUSCULAR VOLUME 81.5 FL (81.0-99.0); MEAN PLATELET VOLUME 8.9 FL (7.4-10.4); PLATELET COUNT 213 /CUMM (130-400); RBC DISTRIBUTION WIDTH 17.4 % (11.5-14.5); RED BLOOD CELL CT 3.62 /CUMM (4.20-5.40); WHITE BLOOD CELL COUNT 11.4 /CUMM (4.8-10.8)
[2016-08-02 01:02] LABS: HEMATOCRIT 29.5 % (37-47)
--- NOTE | 2016-08-02 01:27 | NUR ---
@2300 PT MANUAL BP 78/40 DESPITE 1LNS BOLUS, PT AWAKE AND CONVERSING. NOTIFIED MD HERNANDEZ. PER MD GIVE ANOTHER 1LNS BOLUS. @0000 SBP REMAINS 70'S AFTER 1LNS BOLUS. NOTIFIED MD HERNANDEZ AND LEVOPHED STARTED AT 5MCG/MIN AND TITRATING FOR MAP OF 65 PER MD. SEE FLOWSHEET FOR TITRATION.
[2016-08-02 05:01] LABS: ABSOLUTE BASOPHIL COUNT 0 /CUMM (0.0-0.2); ABSOLUTE EOSINOPHIL COUNT 0.1 /CUMM (0.0-0.7); ABSOLUTE GRANULOCYTE CT 12.2 /CUMM (1.4-6.5); ABSOLUTE LYMPH COUNT 0.5 /CUMM (1.2-3.4); ABSOLUTE MONOCYTE COUNT 0.1 /CUMM (0.10-0.60); BASOPHIL % 0.1 % (0.0-2.0); EOSINOPHIL % 1.1 % (0-5); GRANULOCYTE % 94.6 % (42.2-75.2); HEMATOCRIT 30.8 % (37-47); MEAN CORPUSCULAR HGB 26.6 PG (27.0-31.0); MEAN CORPUSCULAR HGB CONC 32.7 G/DL (33.0-37.0); MEAN CORPUSCULAR VOLUME 81.4 FL (81.0-99.0); MEAN PLATELET VOLUME 8.6 FL (7.4-10.4); PLATELET COUNT 210 /CUMM (130-400); RBC DISTRIBUTION WIDTH 17.7 % (11.5-14.5); RED BLOOD CELL CT 3.78 /CUMM (4.20-5.40); WHITE BLOOD CELL COUNT 12.9 /CUMM (4.8-10.8)
--- NOTE | 2016-08-02 07:32 | NUR ---
PHYSICAL THERAPY- PT TRANSFERRED TO ICU D/T CHANGE IN MEDICAL STATUS FROM HYPOTENSION AND ?SEPSIS. WILL NEED A NEW PHYSICAL THERAPY CONSULT TO EVALUATE AND FOLLOW. THANK YOU, LEANDRA DOMÍNGUEZT
[2016-08-02 08:00] VITALS: BP 104/40
--- NOTE | 2016-08-02 08:44 | PN- Resident CRCU ---
See Addendum Subjective HPI/CRCU Issues: Patient and examined this point. She is lying in bed in mild distress, complaining of pain in her right pelvic area. she was started on Levophed overnight through the left IJ, Goal map of 65. Blood pressure overnight has been ranging between 93 and 104 systolic, heart rate between 96 and 106, CVP have been maintained above 8, MAXIMUM TEMPERATURE of 99, Remains on vancomycin and ceftriaxone, will monitor white count and fever. Objective Vital Signs & I&O Last 8 Hrs of Vitals and I&O: Laboratory Tests 08/02/16 0416: Anion Gap 9, Estimated GFR 39 L, BUN/Creatinine Ratio 30.7 H, Lactic Acid 3.1 H, CBC w Diff NO MAN DIFF REQ, RBC 3.78 L, MCV 81.4, MCH 26.6 L, RDW 17.7 H, MPV 8.6, Gran % 94.6 H, Lymphocytes % 3.5 L, Monocytes % 0.7 L, Eosinophils % 1.1, Basophils % 0.1, Absolute Granulocytes 12.2 H, Absolute Lymphocytes 0.5 L , Absolute Monocytes 0.1 L, Absolute Eosinophils 0.1, Absolute Basophils 0, PUBS MCHC 32.7 L 08/02/16 0253: Lactic Acid Cancelled 08/02/16 0014: Anion Gap 6, Estimated GFR 42 L, Glucose 99, Calcium 7.8 L, Phosphorus 3.9, Magnesium 1.6, Total Bilirubin 0.2, AST 16, ALT 24, Albumin 1.7 L, CBC w Diff MAN DIFF ORDERED, RBC 3.62 L, MCV 81.5, MCH 26.6 L, RDW 17.4 H, MPV 8.9, Gran % 94.4 H, Lymphocytes % 4.1 L, Monocytes % 0.5 L, Eosinophils % 1.0, Basophils % 0 L, Absolute Granulocytes 10.7 H, Segmented Neutrophils 58, Band Neutrophils 30 H, Absolute Lymphocytes 0.5 L, Lymphocytes 8 L, Monocytes 1 L , Absolute Monocytes 0.1 L, Eosinophils 2, Absolute Eosinophils 0.1, Absolute Basophils 0, Metamyelocytes 1, Platelet Estimate ADEQUATE, Polychromasia 1+, Hypochromic-Microcytic 1+, Anisocytosis 1+, Microcytic Cells 1+, Macrocytic Cells 1+, PUBS MCHC 32.7 L 08/02/16 0008: Lactic Acid 3.5 H Microbiology 08/01 1810 BLOOD: Blood Culture - RES 08/01 1720 BLOOD: Blood Culture - RES Vital Signs Date Time Temp Pulse Resp B/P Pulse O2 O2 Flow FiO2 Ox Delivery Rate 08/02 1200 97.8 118 22 110/48 94 Room Air 08/02 0929 115 118/51 08/02 0800 Nasal 3.0L Cannula 08/02 0800 99.0 110 20 104/40 100 Nasal 3.0L Cannula 08/02 0533 97.5 106 21 93/54 08/02 0400 99 Nasal 3.0L Cannula 08/02 0003 96.9 96 22 75/34 08/02 0000 98 Nasal 3.0L Cannula 08/02 0000 97.4 96 19 78/40 98 Nasal 3.0L Cannula 08/01 2228 78/42 08/01 2000 99 Nasal 3.0L Cannula Intake & Output 08/02 1600 08/02 0800 08/02 0000 Intake Total 2564 2312.6 3766 Output Total 100 20 460 Balance 2464 2292.6 3306 Intake, IV 1124 2072.6 3206 Intake, Oral 1440 240 560 Number 0 Bowel Movements Output, 20 460 Drainage Output, 100 Emesis Exam General Appearance: well developed/nourished, alert, awake, mild distress Head: atraumatic, normal appearance Respiratory: decreased breath sounds Cardiovascular: regular rate/rhythm Gastrointestinal: normal bowel sounds IV Drips IV Drips: Levophed Normal saline thousand mL at 125 mL per hour Nutrition Nutrition: P.O. diet Current Medications: Current Medications Sig/Shahla Start time Last Medication Dose Route Stop Time Status Admin Acetaminophen 1,000 MG ONCE ONE 08/02 0630 DC 08/02 N/A 1 UNIT IV 08/02 0644 0625 Acetaminophen 650 MG .STK-MED ONE 08/01 2249 DC PO 08/01 2250 Acetaminophen 1,000 MG ONCE ONE 08/01 1630 DC 08/01 N/A 1 UNIT IV 08/01 1644 1630 Acetaminophen 650 MG Q4 HRS NEEDED PRN 07/31 0800 AC 08/02 PO 0911 Albuterol Sulfate 2 PUF Q4P PRN 07/30 2200 AC INH Ceftriaxone Sodium 1,000 MG DAILY 08/01 1545 AC 08/02 IV 0911 Ceftriaxone Sodium 0 .STK-MED ONE 08/01 1308 DC .ROUTE Celecoxib 100 MG BID 08/01 2200 AC 08/02 PO 0910 Diclofenac Sodium 1 DEMETRA TID PRN 07/30 1145 AC 08/01 TOP 1044 Diphenhydramine HCl 50 MG ONCE ONE 08/01 2230 DC 08/01 IV 08/01 2231 2227 Diphenhydramine HCl 50 MG ONCE ONE 08/01 1630 DC 08/01 IV 08/01 1631 1630 Diphenhydramine HCl 75 MG Q6P PRN 07/31 1100 AC 08/02 PO 0618 Docusate Sodium 100 MG DAILY 07/31 1000 AC 08/01 PO 0903 Enoxaparin Sodium 40 MG DAILY 08/02 1000 AC 08/02 SC 0911 Hydromorphone HCl 1 MG ONCE ONE 08/02 1045 DC 08/02 IV 08/02 1046 1048 Hydromorphone HCl 0.4 MG ONCE ONE 08/01 1930 DC 08/01 IV 08/01 1931 1922 Hydromorphone HCl 0.4 MG ONCE ONE 08/01 1515 DC 08/01 IV 08/01 1516 1538 Insulin Aspart 0 TIDAC/HS 08/01 0800 AC 08/01 SC 0917 Insulin Detemir 60 UNITS BID 07/28 2200 AC 08/02 SC 0919 Ketamine HCl 50 MG .STK-MED ONE 08/01 1143 DC IM 08/01 1144 Lidocaine 1 PAT DAILY 07/28 1800 AC 07/28 EXT 2004 Magnesium Sulfate 1 GM ONCE ONE 08/02 1100 AC Dextrose/Water 100 ML IV 08/02 1459 Miconazole Nitrate 1 DEMETRA AT BEDTIME 07/29 0130 AC 08/01 VAG 2318 Midazolam HCl 5 MG .STK-MED ONE 08/01 1143 DC IM 08/01 1144 Norepinephrine 4 MG .STK-MED ONE 08/01 2351 DC IV 08/01 2352 Norepinephrine 4 MG Q24H 08/01 2345 AC 08/02 Sodium Chloride 250 ML IV 0533 Pregabalin 150 MG BID 07/28 2200 AC 08/02 PO 0910 Propranolol HCl 20 MG BID 07/28 2200 AC 08/01 PO 0918 Quetiapine Fumarate 100 MG AT BEDTIME 08/01 2200 DC 08/01 PO 2226 Senna/Docusate Sodium 2 TAB DAILY 07/31 1000 AC PO Sertraline HCl 25 MG DAILY 07/31 1054 AC 08/02 PO 1047 Sodium Chloride 1,000 ML ONCE ONE 08/01 2345 DC 08/02 IV 08/02 0624 0053 Sodium Chloride 1,000 ML BOLUS ONE 08/01 2330 DC 08/01 IV 08/02 0029 2319 Sodium Chloride 1,000 ML BOLUS ONE 08/01 2145 DC 08/01 IV 08/01 2244 2229 Sodium Chloride 1,000 ML BOLUS ONE 08/01 1545 DC 08/01 IV 08/01 1644 1544 Sodium Chloride 250 ML BOLUS ONE 08/01 1515 DC 08/01 IV 08/01 1614 1505 Sodium Chloride 1,000 ML Q8H 07/31 1515 AC 08/02 IV 1052 Vancomycin HCl 1,250 MG Q12H 08/01 1600 AC 08/02 Dextrose/Water 250 ML IV 0411 Antibiotics Day #: 2 Impression/Plan Impression/Problem List Impression: 40-year-old lady with a PMH of diabetes, previous right-sided hemorrhagic pleural effusion S/P Pleurx catheter, lytic therapy 2, previous MSSA sepsis likely secondary to pro-line catheter, previous necrotizing fasciitis of the perineum, left pararenal abscess, osteomyelitis of pubic bone, polysubstance abuse, depression, opiate dependence who presented with complaints of right-sided hip pain, s/p aspiration of 300 ml of purulent fluid, by Dr. Kathryn Sam on 08/01/16, subsequently found to be hypotensive, requiring close monitoring in the ICU. Cardiovascular # Hypotension * Left IJ central line in place * Continue NS 125 ml/hr, bolus as needed * Overnight levophed drip was started, titrating per MAP with goal of 65 mmHg ID # Pelvic abscess sp IR drainage * On Ceftriaxone and Vancomycin D#2 * For pain, continue Celecoxib 100 bid, Diclofenac, Lyrica 150 bid, Lidocaine patch, Benadryl po 75 q6P * F/U cultures * Consider ortho consult for right upper extremity possible bursitis? * Consider gen surg/plastic surg for aspiration/biopsy of scalp lesion..seeding of MSSA? * Plan for discharge to rehab * Continue Miconazole * Minimize narcotics, if needed, she can get dilaudid 0.6mg q6 * Avoid benzo given hx of benzo dependence * The tube should be open to external gravity drainage via drainage bag. Tube should be flushed Q shift with 10 mL normal saline. Strict output should be measured, not including these flushes. Psych # Depression * Continue Sertraline 25 daily (may be advanced to 50 mg PO daily after one week , watch for hyponatremia) * Started Quetiapine 100 mg PO at bedtime * Continue Propanolol 20 bid * On the W-10 and the discharge instructions, please ask the receiving facility/ ECF to call and make an intake appointment at [facility], [address] [place] [address] when her discharge date is known, . # Diabetes mellitus * Novolog tidac/qhs * Levemir 60 bid * Watch blood sugar closely * Consider endo consult Alimenrary * Continue Senna, Docusate Diet: CC2 DVT ppx: alps and Lovenox FC Problem List: 1. Pleural effusion 2. Hip pain Pain Ratin Tomorrow's Labs & Rationales: CBC for WBC monitoring BEP for lites monitoring Plan DVT/Prophylaxis: pharmacological
--- NOTE | 2016-08-02 10:06 | Proc Note Internal Medicine ---
Medicine Procedure Procedure Date: 08/01/16 Medical Procedure(s): central venous cath place Pre-Operative Diagnosis: No access Post-Operative Diagnosis: same Estimated Blood Loss: scant Anesthesia: local monitored anesthesi Procedure Findings: Indication: No access - required for IV contrast. Consent was obtained. A time-out was completed verifying correct patient, procedure, site, positioning, and equipment. The patient was placed in a dependent position appropriate for central line placement. The patients LEFT neck was prepped and draped in sterile fashion. 1% Lidocaine was used to anesthetize the surrounding skin area. A triple lumen 7-[place] Arrow catheter was introduced into the the LEFT Internal Jugular vein using the Seldinger technique and under ultrasound guidance. The catheter was threaded smoothly over the guide wire and appropriate blood return was obtained. Each lumen of the catheter was evacuated of air and flushed with sterile saline. A biopatch was placed and the catheter was then sutured in place to the skin and a sterile dressing applied. A chest CT confirmed placement without complications of pneumothorax. Estimated Blood Loss: <5 mL The patient tolerated the procedure well and there were no complications.
--- NOTE | 2016-08-02 10:19 | PN- CRCU ---
Subjective HPI/Critical Care Issues: pt seen and examined started on levophed overnight through her left IJ vancomycin/ceftriaxone pain is tx with dilaudid no other events afebrile respiratory status stable Objective Current Medications: Current Medications Sig/Shahla Start time Last Medication Dose Route Stop Time Status Admin Acetaminophen 1,000 MG ONCE ONE 08/02 0630 DC 08/02 N/A 1 UNIT IV 08/02 0644 0625 Acetaminophen 650 MG .STK-MED ONE 08/01 2249 DC PO 08/01 2250 Acetaminophen 1,000 MG ONCE ONE 08/01 1630 DC 08/01 N/A 1 UNIT IV 08/01 1644 1630 Acetaminophen 650 MG .STK-MED ONE 08/01 1010 DC PO 08/01 1011 Acetaminophen 650 MG Q4 HRS NEEDED PRN 07/31 0800 AC 08/02 PO 0911 Albuterol Sulfate 2 PUF Q4P PRN 07/30 2200 AC INH Ceftriaxone Sodium 1,000 MG DAILY 08/01 1545 AC 08/02 IV 0911 Ceftriaxone Sodium 0 .STK-MED ONE 08/01 1308 DC .ROUTE Celecoxib 100 MG BID 08/01 2200 AC 08/02 PO 0910 Diclofenac Sodium 1 DEMETRA TID PRN 07/30 1145 AC 08/01 TOP 1044 Diphenhydramine HCl 50 MG ONCE ONE 08/01 2230 DC 08/01 IV 08/01 2231 2227 Diphenhydramine HCl 50 MG ONCE ONE 08/01 1630 DC 08/01 IV 08/01 1631 1630 Diphenhydramine HCl 75 MG Q6P PRN 07/31 1100 AC 08/02 PO 0618 Docusate Sodium 100 MG DAILY 07/31 1000 AC 08/01 PO 0903 Enoxaparin Sodium 40 MG DAILY 08/02 1000 AC 08/02 SC 0911 Hydromorphone HCl 0.4 MG ONCE ONE 08/01 1930 DC 08/01 IV 08/01 1931 1922 Hydromorphone HCl 0.4 MG ONCE ONE 08/01 1515 DC 08/01 IV 08/01 1516 1538 Insulin Aspart 0 TIDAC/HS 08/01 0800 AC 08/01 SC 0917 Insulin Detemir 60 UNITS BID 07/28 2200 AC 08/02 SC 0919 Ketamine HCl 50 MG .STK-MED ONE 08/01 1143 DC IM 08/01 1144 Lidocaine 1 PAT DAILY 07/28 1800 AC 07/28 EXT 2004 Miconazole Nitrate 1 DEMETRA AT BEDTIME 07/29 0130 AC 08/01 VAG 2318 Midazolam HCl 5 MG .STK-MED ONE 08/01 1143 DC IM 08/01 1144 Norepinephrine 4 MG .STK-MED ONE 08/01 2351 DC IV 08/01 2352 Norepinephrine 4 MG Q24H 08/01 2345 AC 08/02 Sodium Chloride 250 ML IV 0533 Pregabalin 150 MG BID 07/28 2200 AC 08/02 PO 0910 Propranolol HCl 20 MG BID 07/28 2200 AC 08/01 PO 0918 Quetiapine Fumarate 100 MG AT BEDTIME 08/01 2200 DC 08/01 PO 2226 Senna/Docusate Sodium 2 TAB DAILY 07/31 1000 AC PO Sertraline HCl 25 MG DAILY 07/31 1054 AC 08/01 PO 0902 Sodium Chloride 1,000 ML ONCE ONE 08/01 2345 DC 08/02 IV 08/02 0624 0053 Sodium Chloride 1,000 ML BOLUS ONE 08/01 2330 DC 08/01 IV 08/02 0029 2319 Sodium Chloride 1,000 ML BOLUS ONE 08/01 2145 DC 08/01 IV 08/01 2244 2229 Sodium Chloride 1,000 ML BOLUS ONE 08/01 1545 DC 08/01 IV 08/01 1644 1544 Sodium Chloride 250 ML BOLUS ONE 08/01 1515 DC 08/01 IV 08/01 1614 1505 Sodium Chloride 1,000 ML BOLUS ONE 08/01 1015 DC 08/01 IV 08/01 1114 1040 Sodium Chloride 500 ML BOLUS ONE 08/01 1015 CAN IV 08/01 1114 Sodium Chloride 1,000 ML Q8H 07/31 1515 AC 08/01 IV 1600 Vancomycin HCl 1,250 MG Q12H 08/01 1600 AC 08/02 Dextrose/Water 250 ML IV 0411 Vital Signs & I&O Last 24 Hrs of Vitals and I&O: Vital Signs Date Time Temp Pulse Resp B/P Pulse O2 O2 Flow FiO2 Ox Delivery Rate 08/02 0929 115 118/51 08/02 0800 Nasal 3.0L Cannula 08/02 0800 99.0 110 20 104/40 100 Nasal 3.0L Cannula 08/02 0533 97.5 106 21 93/54 08/02 0400 99 Nasal 3.0L Cannula 08/02 0003 96.9 96 22 75/34 08/02 0000 98 Nasal 3.0L Cannula 08/02 0000 97.4 96 19 78/40 98 Nasal 3.0L Cannula 08/01 2228 78/42 08/02 1999 99 Nasal 3.0L Cannula 08/01 1600 95 Nasal 4.0L Cannula 08/01 1600 98.6 86 14 100/48 93 Nasal 4.0L Cannula 08/01 1531 Room Air Room Air Intake & Output 08/02 1600 08/02 0800 08/02 0000 Intake Total 2312.6 3766 Output Total 20 460 Balance 2292.6 3306 Intake, IV 2072.6 3206 Intake, Oral 240 560 Number 0 Bowel Movements Output, 20 460 Drainage Exam Other Physical Findings: gen awake alert heent ncat, left IJ cvs s1, s2 lungs diminished bases abd diffuse tendereness ext no edema Results Last 24 Hrs of Lab Results: Laboratory Tests 08/02/16 0416: Anion Gap 9, Estimated GFR 39 L, BUN/Creatinine Ratio 30.7 H, Lactic Acid 3.1 H, CBC w Diff NO MAN DIFF REQ, RBC 3.78 L, MCV 81.4, MCH 26.6 L, RDW 17.7 H, MPV 8.6, Gran % 94.6 H, Lymphocytes % 3.5 L, Monocytes % 0.7 L, Eosinophils % 1.1, Basophils % 0.1, Absolute Granulocytes 12.2 H, Absolute Lymphocytes 0.5 L , Absolute Monocytes 0.1 L, Absolute Eosinophils 0.1, Absolute Basophils 0, PUBS MCHC 32.7 L 08/02/16 0253: Lactic Acid Cancelled 08/02/16 0014: Anion Gap 6, Estimated GFR 42 L, Glucose 99, Calcium 7.8 L, Phosphorus 3.9, Magnesium 1.6, Total Bilirubin 0.2, AST 16, ALT 24, Albumin 1.7 L, CBC w Diff MAN DIFF ORDERED, RBC 3.62 L, MCV 81.5, MCH 26.6 L, RDW 17.4 H, MPV 8.9, Gran % 94.4 H, Lymphocytes % 4.1 L, Monocytes % 0.5 L, Eosinophils % 1.0, Basophils % 0 L, Absolute Granulocytes 10.7 H, Segmented Neutrophils 58, Band Neutrophils 30 H, Absolute Lymphocytes 0.5 L, Lymphocytes 8 L, Monocytes 1 L , Absolute Monocytes 0.1 L, Eosinophils 2, Absolute Eosinophils 0.1, Absolute Basophils 0, Metamyelocytes 1, Platelet Estimate ADEQUATE, Polychromasia 1+, Hypochromic-Microcytic 1+, Anisocytosis 1+, Microcytic Cells 1+, Macrocytic Cells 1+, PUBS MCHC 32.7 L 08/02/16 0008: Lactic Acid 3.5 H Impression/Plan Impression/Plan Impression/Plan: Impression 40 year old woman - hx of multiple collections/pus, usual pathogen is MSSA, pt now on vasopressors with hypotension consistent with septic shock secondary to purulent drained pelvic collection with staph aureus in sampled fluid - loculated right pleural effusion - hyponatremia - improved - [place] - hypomagnesemia Plan - vancomycin, ceftraixone, ID follow up, f/u all cultures - pain control - hemodynamic monitoring - levophed titrate to MAP of 65 - replete magnesium - monitor mag, phos, k - finger stick monitoring - check CVP - goal >8, normal saline bolus to achieve CVP of 8 - DVT prophylaxis TTS 40 min
--- NOTE | 2016-08-02 10:33 | NUR ---
0800: RECEIVED PT IN BED. A+OX3. ON 3L NC, LUNGS CLEAR, NO SOB. SINUS TACH ON MONITOR, LOW GRADE TEMP. B/P 104/40, ON LEVO AT 9 MCG/KG/HR. TITRATING FOR MAP OF 65, SEE FLOW SHEET FOR TITRATIONS. DENIES CHEST PAIN. ABDOMEN SOFT, +BS. TOLERATING REGULAR DIET. PT IS INCONTINENT OF URINE AT TIMES. MULTIPLE SKIN ISSUES. UNSTAGEABLE TO BOTTOM, STAGE 2 TO LEFT BUTTOCKS. MULTIPLE SCABS ALL OVER BODY, RIGHT GROIN/ABDOMEN RED, WARM. PERC DRAIN TO RIGHT ABDOMEN DRAINING SERROUS DRAINAGE. WILL MONITOR.
[2016-08-02 12:00] VITALS: BP 110/48
--- NOTE | 2016-08-02 13:05 | PN- Infect Dx ---
Subjective Subjective: Afebrile. She continues to complain of pain in the right hip and pelvis as well as the right upper extremity including the shoulder. Objective Last 24 Hrs of Vital Signs/I&O Vital Signs Date Time Temp Pulse Resp B/P Pulse O2 O2 Flow FiO2 Ox Delivery Rate 08/02 0929 115 118/51 08/02 0800 Nasal 3.0L Cannula 08/02 0800 99.0 110 20 104/40 100 Nasal 3.0L Cannula 08/02 0533 97.5 106 21 93/54 08/02 0400 99 Nasal 3.0L Cannula 08/02 0003 96.9 96 22 75/34 08/02 0000 98 Nasal 3.0L Cannula 08/02 0000 97.4 96 19 78/40 98 Nasal 3.0L Cannula 08/01 2228 78/42 08/01 2000 99 Nasal 3.0L Cannula 08/01 1600 95 Nasal 4.0L Cannula 08/01 1600 98.6 86 14 100/48 93 Nasal 4.0L Cannula 08/01 1531 Room Air Room Air Intake & Output 08/02 1600 08/02 0800 08/02 0000 Intake Total 2312.6 3766 Output Total 20 460 Balance 2292.6 3306 Intake, IV 2072.6 3206 Intake, Oral 240 560 Number 0 Bowel Movements Output, 20 460 Drainage Physical Exam Other Physical Findings: She appears more comfortable in no acute distress HEENT two fluctuant lesions on her scalp unchanged Neck left IJ triple lumen catheter with no inflammation at the site Lungs are clear Heart regular rhythm with no murmur Abdomen is soft, tender on palpation of the right lower quadrant, positive bowel sounds; catheter in place in the lower abdomen with 460 mL output yesterday and 20 mL overnight Extremities right thigh/hip swelling, tender to palpation, limiting ability to fully examine her; right upper extremity swelling with induration over the olecranon bursa, tender to palpation, with swelling, tenderness and limitation to movement of the right shoulder without erythema Results Last 24 Hours of Lab Results: Laboratory Tests 08/02 08/02 0416 0253 Chemistry Sodium (137 - 145 mmol/L) 130 L Potassium (3.5 - 5.1 mmol/L) 5.1 Chloride (98 - 107 mmol/L) 103 Carbon Dioxide (22 - 30 mmol/L) 17 L Anion Gap (5 - 16) 9 BUN (7 - 17 mg/dL) 46 H Creatinine (0.5 - 1.0 mg/dL) 1.5 H Estimated GFR (>60 ml/min) 39 L BUN/Creatinine Ratio (7 - 25 %) 30.7 H Lactic Acid (0.7 - 2.1 mmol/L) 3.1 H Cancelled Hematology CBC w Diff NO MAN DIFF REQ WBC (4.8 - 10.8 /CUMM) 12.9 H RBC (4.20 - 5.40 /CUMM) 3.78 L Hgb (12.0 - 16.0 G/DL) 10.1 L Hct (37 - 47 %) 30.8 L MCV (81.0 - 99.0 FL) 81.4 MCH (27.0 - 31.0 PG) 26.6 L RDW (11.5 - 14.5 %) 17.7 H Plt Count (130 - 400 /CUMM) 210 MPV (7.4 - 10.4 FL) 8.6 Gran % (42.2 - 75.2 %) 94.6 H Lymphocytes % (20.5 - 51.1 %) 3.5 L Monocytes % (1.7 - 9.3 %) 0.7 L Eosinophils % (0 - 5 %) 1.1 Basophils % (0.0 - 2.0 %) 0.1 Absolute Granulocytes (1.4 - 6.5 /CUMM) 12.2 H Absolute Lymphocytes (1.2 - 3.4 /CUMM) 0.5 L Absolute Monocytes (0.10 - 0.60 /CUMM) 0.1 L Absolute Eosinophils (0.0 - 0.7 /CUMM) 0.1 Absolute Basophils (0.0 - 0.2 /CUMM) 0 PUBS MCHC (33.0 - 37.0 G/DL) 32.7 L 08/0218 0014 0008 Chemistry Sodium (137 - 145 mmol/L) 127 L Potassium (3.5 - 5.1 mmol/L) 4.6 Chloride (98 - 107 mmol/L) 103 Carbon Dioxide (22 - 30 mmol/L) 18 L Anion Gap (5 - 16) 6 BUN (7 - 17 mg/dL) 44 H Creatinine (0.5 - 1.0 mg/dL) 1.4 H Estimated GFR (>60 ml/min) 42 L Glucose (65 - 99 mg/dL) 99 Lactic Acid (0.7 - 2.1 mmol/L) 3.5 H Calcium (8.4 - 10.2 mg/dL) 7.8 L Phosphorus (2.5 - 4.5 mg/dL) 3.9 Magnesium (1.6 - 2.3 mg/dL) 1.6 Total Bilirubin (0.2 - 1.3 mg/dL) 0.2 AST (14 - 36 U/L) 16 ALT (9 - 52 U/L) 24 Albumin (3.5 - 5.0 g/dL) 1.7 L Hematology CBC w Diff MAN DIFF ORDERED WBC (4.8 - 10.8 /CUMM) 11.4 H RBC (4.20 - 5.40 /CUMM) 3.62 L Hgb (12.0 - 16.0 G/DL) 9.6 L Hct (37 - 47 %) 29.5 L MCV (81.0 - 99.0 FL) 81.5 MCH (27.0 - 31.0 PG) 26.6 L RDW (11.5 - 14.5 %) 17.4 H Plt Count (130 - 400 /CUMM) 213 MPV (7.4 - 10.4 FL) 8.9 Gran % (42.2 - 75.2 %) 94.4 H Lymphocytes % (20.5 - 51.1 %) 4.1 L Monocytes % (1.7 - 9.3 %) 0.5 L Eosinophils % (0 - 5 %) 1.0 Basophils % (0.0 - 2.0 %) 0 L Absolute Granulocytes (1.4 - 6.5 /CUMM) 10.7 H Segmented Neutrophils (42.2 - 75.2 %) 58 Band Neutrophils (0.0 - 5.0 %) 30 H Absolute Lymphocytes (1.2 - 3.4 /CUMM) 0.5 L Lymphocytes (20.5 - 51.1 %) 8 L Monocytes (1.7 - 9.3 %) 1 L Absolute Monocytes (0.10 - 0.60 /CUMM) 0.1 L Eosinophils (0 - 5.0 %) 2 Absolute Eosinophils (0.0 - 0.7 /CUMM) 0.1 Absolute Basophils (0.0 - 0.2 /CUMM) 0 Metamyelocytes (0.0 - 1.0 %) 1 Platelet Estimate (ADEQUATE) ADEQUATE Polychromasia 1+ Hypochromic-Microcytic 1+ Anisocytosis 1+ Microcytic Cells 1+ Macrocytic Cells 1+ PUBS MCHC (33.0 - 37.0 G/DL) 32.7 L Last 24 Hours of [place] Results: Pelvic abscess culture August 01 positive for Staph aureus Blood cultures 2 August 01 negative Recent Imaging Studies: CT of the chest, abdomen and pelvis with IV contrast August 01 reveals a small, loculated posteroinferiorly located right pleural effusion, decreased in size from previous study, with partial collapse of the right lower lobe; edema within the subcutaneous tissues posterior to the right shoulder with no focal fluid collection; hepatomegaly; prominent spleen; mildly displaced fractures of the right pubic rami, with a multiloculated fluid collection within the right pelvis extending along the distal right iliopsoas and medial to the right obturator internus exerting a mass effect upon the urinary bladder, measuring approximately 7.3 x 12.5 x 14 cm, extending posterolaterally along the obturator internus to the posterior hip region; a separate collection overlying the right greater trochanter; a small amount of fluid extending superiorly between the gluteus medius and ashley muscles; chronic endplate erosion at L4-L5 with no paraspinal fluid collection Assessment/Plan Impression: Stable status post CT-guided drainage of 300 mL of purulent fluid from the right pelvic collection seen on the CT scan, with Staph aureus isolated from the preliminary culture. I suspect that this infection represents a residual infection from her previous sepsis likely secondary to seeding of the pubic rami , though previous imaging 5 weeks prior to admission (and 9 days after her discharge and discontinuation of antibiotics) was negative for any evidence of this collection. A new process is possible, for example secondary to more recent trauma, though this seems less likely. Her right upper extremity inflammation may be secondary to her recent trauma, but this may also may also need to be evaluated for infection if the inflammation persists. Her scalp lesions may be related to trauma but these may warrant drainage if they do not resolve. She remains afebrile with white blood cell count elevated, though with no bands noted, on empiric treatment with Vancomycin and Ceftriaxone pending her cultures. The positive urine culture likely represents asymptomatic bacteriuria and should not require treatment. Her creatinine has increased, possibly secondary to sepsis or medications, but would rule out urinary retention. Suggestion: 1. Follow-up recent culture of the pelvic abscess 2. Bladder scan and straight cath if necessary for urinary retention 3. Reevaluate all of her medications, particularly Celebrex, in view of her renal failure 4. Orthopedic evaluation of her right upper extremity if her inflammation persists 5. General or plastic surgery evaluation for I&D of her scalp lesions if they do not resolve 6. Discontinue Ceftriaxone 7. Continue Vancomycin but would obtain a Vancomycin random level in the morning 8. If Staph aureus proves to be MSSA, would discontinue Vancomycin and begin Oxacillin 2 g IV every 4 hours
[2016-08-02 16:00] VITALS: BP 106/50
--- NOTE | 2016-08-02 16:45 | NUR ---
PT REFUSING INCONTINENT CARE AT THIS TIME. ATTEMPTED TO TURN AND CLEAN PT. PT CRYING AND STATING THAT SHE CAN'T DO IT RIGHT NOW. TOLD PT THAT WE WILL LET HER REST FOR A LITTLE BUT THAT WE DO NEED TO CLEAN HER UP, WE CANNOT LET HER SIT IN URINE. PT AGREED TO GET CLEANED UP IN A LITTLE WHILE.
--- NOTE | 2016-08-02 19:17 | NUR ---
PT FINALLY ALLOWED INCONTINENT CARE TO BE PROVIDED. PT WAS INCONTINENT OF LARGE AMOUNT OF URINE. MULTIPLE SKIN ISSUES TO BOTTOM.
--- NOTE | 2016-08-02 20:28 | NUR ---
PT HAS TWO MODERATE SIZE OPEN AREAS TO TOP OF HEAD THAT PT STATED "BOILS THAT JUST POPPED", BLOODY DRAINAGE NOTED TO [place] AT BEDSIDE. NOTIFIED MD ANDREI VALENZUELA AND WILL ASSESS.
[2016-08-03] VITALS: BP 118/52
--- NOTE | 2016-08-03 00:12 | NUR ---
PT C/O NAUSEA AND BELCHING, PT TEARFUL AND REQUESTING PHENERGAN. NOTIFIED MD ANDREI VALENZUELA AND ONE TIME ORDER OF PHENERGAN ORDERED. AFTER BEGINNING PHENERGAN PT WANTED A SIP OF WATER AND ASKED IF SHE COULD RECEIVE HER DILAUDID EARLY. PT HAS ONLY LAST 3 HOURS BETWEEN DOSES, PT STATES PAIN IN CAUSING HER NAUSEA. OFFERED PT REPOSITIONING MULTIPLE TIMES BUT REFUSING AND STATES PAIN MED IS ONLY THING THAT HELPS HER. NOTIFIED MD VALENZUELA OF [facility]
[2016-08-03 05:24] LABS: ABSOLUTE BASOPHIL COUNT 0 /CUMM (0.0-0.2); ABSOLUTE EOSINOPHIL COUNT 0.1 /CUMM (0.0-0.7); ABSOLUTE GRANULOCYTE CT 10.9 /CUMM (1.4-6.5); ABSOLUTE LYMPH COUNT 0.4 /CUMM (1.2-3.4); ABSOLUTE MONOCYTE COUNT 0.1 /CUMM (0.10-0.60); BASOPHIL % 0.1 % (0.0-2.0); EOSINOPHIL % 0.7 % (0-5); GRANULOCYTE % 95.5 % (42.2-75.2); HEMATOCRIT 31.6 % (37-47); MEAN CORPUSCULAR HGB 26.4 PG (27.0-31.0); MEAN CORPUSCULAR HGB CONC 32.6 G/DL (33.0-37.0); MEAN CORPUSCULAR VOLUME 80.9 FL (81.0-99.0); MEAN PLATELET VOLUME 8.3 FL (7.4-10.4); PLATELET COUNT 199 /CUMM (130-400); RBC DISTRIBUTION WIDTH 17.4 % (11.5-14.5); RED BLOOD CELL CT 3.91 /CUMM (4.20-5.40); WHITE BLOOD CELL COUNT 11.4 /CUMM (4.8-10.8)
[2016-08-03 08:00] VITALS: BP 100/60
--- NOTE | 2016-08-03 08:23 | PN- Resident CRCU ---
Subjective HPI/CRCU Issues: Pt seen today, reports she did not have a good night sleep and feeling tired. Pain currently 5/10. Dr. Brown recommended dilaudid 1 q6P for pain. Ceftriaxone has been discontinued on 08/02, vanc level 31.8 today. Would check if vancomycin dose needs to be adjusted based on current kidney functions. Would change to oxacillin 2g IV q4 if cultures come back MSSA. She has not had bowel movement in 3 days, and is feeling gassy and burpy. Noted right elbow swelling, will get repeat xray of the right elbow to further evaluate. Noted worsening of BUN/Cr from 31/0.9 on admission to 56/1.9. Will get renal ultrasound to rule out obstruction. Na 130 to 121, with glucose around 200, ordered fena, urine lytes, serum osm and urine osm. Continue IVF 125ml/hr. Would discontinue zoloft. Will put renal consult given constillation of hyponatremia, hyperkalemia, and BROOKLYNN. The scalp lesion popped last night, with some pus still draining. Levo has been off since last night, with blood pressure stable. She still complains of right shoulder pain with decreased passive ROM. Objective Vital Signs & I&O Last 8 Hrs of Vitals and I&O: Intake & Output 08/03 1600 08/03 0800 08/03 0000 Intake Total 1504 1728.3 Output Total 40 10 Balance 1464 1718.3 Intake, IV 1104 958.3 Intake, Oral 400 770 Number 0 0 Bowel Movements Output, 40 10 Drainage Laboratory Tests 08/03 0444 Chemistry Sodium (137 - 145 mmol/L) 121 L Potassium (3.5 - 5.1 mmol/L) 5.6 H Chloride (98 - 107 mmol/L) 98 Carbon Dioxide (22 - 30 mmol/L) 16 L Anion Gap (5 - 16) 6 BUN (7 - 17 mg/dL) 56 H Creatinine (0.5 - 1.0 mg/dL) 1.9 H Estimated GFR (>60 ml/min) 29 L Glucose (65 - 99 mg/dL) 190 H Serum Osmolality (285 - 295 MOSM/KG) 290 Calcium (8.4 - 10.2 mg/dL) 8.0 L Phosphorus (2.5 - 4.5 mg/dL) 5.0 H Magnesium (1.6 - 2.3 mg/dL) 1.9 Total Bilirubin (0.2 - 1.3 mg/dL) 0.2 AST (14 - 36 U/L) 24 ALT (9 - 52 U/L) 34 Albumin (3.5 - 5.0 g/dL) 1.8 L Hematology CBC w Diff MAN DIFF ORDERED WBC (4.8 - 10.8 /CUMM) 11.4 H RBC (4.20 - 5.40 /CUMM) 3.91 L Hgb (12.0 - 16.0 G/DL) 10.3 L Hct (37 - 47 %) 31.6 L MCV (81.0 - 99.0 FL) 80.9 L MCH (27.0 - 31.0 PG) 26.4 L RDW (11.5 - 14.5 %) 17.4 H Plt Count (130 - 400 /CUMM) 199 MPV (7.4 - 10.4 FL) 8.3 Gran % (42.2 - 75.2 %) 95.5 H Lymphocytes % (20.5 - 51.1 %) 3.1 L Monocytes % (1.7 - 9.3 %) 0.6 L Eosinophils % (0 - 5 %) 0.7 Basophils % (0.0 - 2.0 %) 0.1 Absolute Granulocytes (1.4 - 6.5 /CUMM) 10.9 H Segmented Neutrophils (42.2 - 75.2 %) 93 H Band Neutrophils (0.0 - 5.0 %) 6 H Absolute Lymphocytes (1.2 - 3.4 /CUMM) 0.4 L Lymphocytes (20.5 - 51.1 %) 1 L Absolute Monocytes (0.10 - 0.60 /CUMM) 0.1 L Absolute Eosinophils (0.0 - 0.7 /CUMM) 0.1 Absolute Basophils (0.0 - 0.2 /CUMM) 0 Platelet Estimate (ADEQUATE) ADEQUATE Hypochromic-Microcytic 1+ Poikilocytosis FEW Anisocytosis 1+ Microcytic Cells 1+ Ovalocytes FEW PUBS MCHC (33.0 - 37.0 G/DL) 32.6 L Other Body Source Fld Total RBCs Counted (%) 100 Toxicology Random Vancomycin (ug/ml) 31.8 Microbiology Date/Time Procedure - Status Source Growth 08/03 0825 Urine Culture - ORD URINE ROUT Vital Signs Date Time Temp Pulse Resp B/P Pulse O2 O2 Flow FiO2 Ox Delivery Rate 08/03 1001 110 107/58 08/03 0800 97.5 110 18 100/60 96 Room Air 08/03 0400 94 Room Air 08/03 0000 97 Nasal 4.0L Cannula 08/03 0000 97.0 107 17 118/52 97 Nasal 4.0L Cannula 08/02 2133 113 118/85 08/02 2000 99 Nasal 4.0L Cannula 08/02 1600 Nasal 4.0L Cannula 08/02 1600 98.3 122 20 106/50 94 Nasal 4.0L Cannula 08/02 1200 97.8 118 22 110/48 94 Room Air Exam General Appearance: alert, awake, comfortable Head: pus draining from lesion on the scalp Respiratory: normal breath sounds, chest non-tender Cardiovascular: regular rate/rhythm Gastrointestinal: normal bowel sounds, soft Extremities: no edema Current Medications: Current Medications Sig/Shahla Start time Last Medication Dose Route Stop Time Status Admin Acetaminophen 650 MG Q4 HRS NEEDED PRN 07/31 0800 AC 08/02 PO 0911 Albuterol Sulfate 2 PUF Q4P PRN 07/30 2200 AC INH Ceftriaxone Sodium 1,000 MG DAILY 08/01 1545 DC 08/02 IV 0911 Celecoxib 100 MG BID 08/01 2200 DC 08/02 PO 2130 Diclofenac Sodium 1 DEMETRA TID PRN 07/30 1145 AC 08/01 TOP 1044 Diphenhydramine HCl 75 MG Q6P PRN 07/31 1100 AC 08/03 PO 0845 Docusate Sodium 100 MG DAILY 07/31 1000 AC 08/03 PO 1001 Enoxaparin Sodium 40 MG DAILY 08/02 1000 AC 08/03 SC 1000 Hydromorphone HCl 1 MG Q6P PRN 08/03 1030 AC IV Hydromorphone HCl 0.6 MG Q6P PRN 08/03 0830 DC 08/03 IV 0834 Hydromorphone HCl 0.6 MG Q4P PRN 08/02 1745 DC 08/03 IV 0441 Hydromorphone HCl 0.6 MG ONCE ONE 08/02 1430 DC 08/02 IV 08/02 1431 1428 Hydromorphone HCl 1 MG ONCE ONE 08/02 1045 DC 08/02 IV 08/02 1046 1048 Insulin Aspart 0 TIDAC/HS 08/01 0800 AC 08/03 SC 0816 Insulin Detemir 60 UNITS BID 07/28 2200 AC 08/03 SC 1000 Lidocaine 1 PAT DAILY 07/28 1800 AC 07/28 EXT 2004 Magnesium Sulfate 1 GM ONCE ONE 08/02 1100 DC 08/02 Dextrose/Water 100 ML IV 08/02 1459 1301 Miconazole Nitrate 1 DEMETRA AT BEDTIME 07/29 0130 AC 08/01 VAG 2318 Norepinephrine 4 MG Q24H 08/01 2345 DC 08/02 Sodium Chloride 250 ML IV 0533 Oxacillin Sodium 2,000 MG Q4 08/03 1400 AC Sodium Chloride 100 ML IV Pregabalin 150 MG BID 07/28 2200 AC 08/03 PO 1000 Promethazine HCl 12.5 MG ONCE ONE 08/02 2345 DC 08/03 IV 08/02 2346 0018 Promethazine HCl 12.5 MG ONCE ONE 08/02 1400 DC 08/02 IV 08/02 1401 1405 Propranolol HCl 20 MG BID 07/28 2200 AC 08/01 PO 0918 Senna/Docusate Sodium 2 TAB DAILY 07/31 1000 AC 08/03 PO 1001 Sertraline HCl 25 MG DAILY 07/31 1054 DC 08/03 PO 1001 Simethicone 80 MG Q6P PRN 08/03 0830 AC 08/03 PO 1001 Sodium Chloride 1,000 ML Q8H 07/31 1515 AC 08/03 IV 1001 Vancomycin HCl 1,250 MG Q12H 08/01 1600 DC 08/03 Dextrose/Water 250 ML IV 0423 Impression/Plan Impression/Problem List Impression: 40-year-old lady with a PMH of diabetes, previous right-sided hemorrhagic pleural effusion S/P Pleurx catheter, lytic therapy 2, previous MSSA sepsis likely secondary to pro-line catheter, previous necrotizing fasciitis of the perineum, left pararenal abscess, osteomyelitis of pubic bone, polysubstance abuse, depression, opiate dependence who presented with complaints of right-sided hip pain, s/p aspiration of 300 ml of purulent fluid, by Dr. Kathryn Sam on 08/01/16, subsequently found to be hypotensive, requiring close monitoring in the ICU. She did require levophed for 1 day, with her BP now stable. Quetiapine discontinued due to concerns of hypotension. She was started on vancomycin and ceftriaxone after the procedure. Ceftriaxone discontinued on day # 2 of abx and vancomycin discontinued on day # 3 of abx. Currently on cefazolin for MSSA. She subsequently developed acute kidney injury, hyponatremia, hyperkalemia while she is in the ICU, thought to be multifactorial, including renal insult by IV contrast, NSAIDs, hypotension, urinary retention. Nephrology consulted. Sertraline, celecoxib, and vancomycin discontinued. While she was in the ICU, the lesion on her scalp spontaneously drained purulent material, with alopecia noted in the affected area. She continues to endorse right upper extremity and shoulder pain. Yao: Day #1 Central line: Day # 3 ID # Pelvic abscess sp IR drainage * Received vancomycin for 2 days (last dose 08/03 at 4am). Vanc level 31.8 today. Vancomycin 1250 Q12 discontinued based on Dr. Dunbar's and pharmacist, Mayra' s recc. Started oxacillin 2g IV q4 for MSSA on 3. * Ceftriaxone has been discontinued after 2 days. * For pain, continue Diclofenac, Lyrica 150 bid, Lidocaine patch, Benadryl po 75 q6P * F/U cultures * Consider gen surg/plastic surg for aspiration/biopsy of scalp lesion..seeding of MSSA? * Plan for discharge to rehab * Continue Miconazole * Continue dilaudid 1mg Q6P * Avoid benzo given hx of benzo dependence * The tube should be open to external gravity drainage via drainage bag. Tube should be flushed Q shift with 10 mL normal saline. Strict output should be measured, not including these flushes. # Right shoulder pain with decreased passive ROM # Right elbow swelling * Would obtain repeat Xray * Would also get ultrasound of right elbow to look for pus pockets * Consider ortho consult for right upper extremity possible bursitis? # The scalp lesion popped 3/18 PM, with purulent drainage noted Metabolic # Acute kidney injury most likely due to IV contrast, NSAIDs, hypotension, urinary retention - Noted worsening of BUN/Cr from 31/0.9 on admission to 56/1.9. - Straight cath put out > 1L of urine , pt also complains of incontinence , would like yao in * Will get renal ultrasound to rule out obstruction. * Follow up fena, urine lytes, serum osm and urine osm. * NS IVF 125ml/hr changed to D51/2NS plus 75 meq/L of NaHCO3, as this will help with acidemia and potassium, start at 100cc/hr, modify depending on UO. * Zoloft discontinued * Appreciate renal input * Celecoxib 100 bid discontinued * Vancomycin discontinued * Yao inserted * No NSAIDs, IV contrast or aminoglycosides # Hyponatremia Hyponatremia predated renal failure, probably related to ADH release with stress /pain as well as contributed by antidepressants, NSAIDS - Na 130 to 121, with glucose around 200 * All drips/IV fluids should be put in NS if possible to try and limit free water. # Hyperkalemia - Most likely resultant of renal insufficiency. Cardiovascular # Hypotension (resolved) * Left IJ central line in place * Levophed from 08/01 at 2345 to 08/02 at 1931. Now off. BP stable Psych # Depression * Started Sertraline 25 daily, but discontinued due to hyponatremia * Started Quetiapine 100 mg PO at bedtime, but discontinued due to concerns of causing hypotension * Continue Propanolol 20 bid * On the -10 and the discharge instructions, please ask the receiving facility/ ECF to call and make an intake appointment at [facility], [address] [place] [address] when her discharge date is known, . # Diabetes mellitus * Novolog tidac/qhs * Levemir 60 bid * Watch blood sugar closely * Consider endo consult Alimentary - She has not had bowel movement since 07/31, and is feeling gassy and burpy. * Continue Senna, Docusate Diet: CC2 DVT ppx: alps and Lovenox FC Consults: ID, psych,renal Labs: bep mag phos for acute kidney injury , cbc for leukocytosis Problem List: 1. Right hip pain Pain Ratin Tomorrow's Labs & Rationales: bep mag phos for acute kidney injury cbc for leukocytosis Plan DVT/Prophylaxis: mechanical, pharmacological
--- NOTE | 2016-08-03 09:50 | PN- CRCU ---
Subjective HPI/Critical Care Issues: pt seen and examined pain controlled with dilaudid nausea overnight off levophed, bp improved Objective Current Medications: Current Medications Sig/Shahla Start time Last Medication Dose Route Stop Time Status Admin Acetaminophen 650 MG Q4 HRS NEEDED PRN 07/31 0800 AC 08/02 PO 0911 Albuterol Sulfate 2 PUF Q4P PRN 07/30 2200 AC INH Ceftriaxone Sodium 1,000 MG DAILY 08/01 1545 DC 08/02 IV 0911 Celecoxib 100 MG BID 08/01 2200 DC 08/02 PO 2130 Diclofenac Sodium 1 DEMETRA TID PRN 07/30 1145 AC 08/01 TOP 1044 Diphenhydramine HCl 75 MG Q6P PRN 07/31 1100 AC 08/03 PO 0845 Docusate Sodium 100 MG DAILY 07/31 1000 AC 08/01 PO 0903 Enoxaparin Sodium 40 MG DAILY 08/02 1000 AC 08/02 SC 0911 Hydromorphone HCl 0.6 MG Q6P PRN 08/03 0830 AC 08/03 IV 0834 Hydromorphone HCl 0.6 MG Q4P PRN 08/02 1745 DC 08/03 IV 0441 Hydromorphone HCl 0.6 MG ONCE ONE 08/02 1430 DC 08/02 IV 08/02 1431 1428 Hydromorphone HCl 1 MG ONCE ONE 08/02 1045 DC 08/02 IV 08/02 1046 1048 Insulin Aspart 0 TIDAC/HS 08/01 0800 AC 08/03 SC 0816 Insulin Detemir 60 UNITS BID 07/28 2200 AC 08/02 SC 2131 Lidocaine 1 PAT DAILY 07/28 1800 AC 07/28 EXT 2004 Magnesium Sulfate 1 GM ONCE ONE 08/02 1100 DC 08/02 Dextrose/Water 100 ML IV 08/02 1459 1301 Miconazole Nitrate 1 DEMETRA AT BEDTIME 07/29 0130 AC 08/01 VAG 2318 Norepinephrine 4 MG Q24H 08/01 2345 DC 08/02 Sodium Chloride 250 ML IV 0533 Pregabalin 150 MG BID 07/28 2200 AC 08/02 PO 2131 Promethazine HCl 12.5 MG ONCE ONE 08/02 2345 DC 08/03 IV 08/02 2346 0018 Promethazine HCl 12.5 MG ONCE ONE 08/02 1400 DC 08/02 IV 08/02 1401 1405 Propranolol HCl 20 MG BID 07/28 2200 AC 08/01 PO 0918 Senna/Docusate Sodium 2 TAB DAILY 07/31 1000 AC PO Sertraline HCl 25 MG DAILY 07/31 1054 AC 08/02 PO 1047 Simethicone 80 MG Q6P PRN 08/03 0830 AC PO Sodium Chloride 1,000 ML Q8H 07/31 1515 AC 08/02 IV 2320 Vancomycin HCl 1,250 MG Q12H 08/01 1600 AC 08/03 Dextrose/Water 250 ML IV 0423 Vital Signs & I&O Last 24 Hrs of Vitals and I&O: Vital Signs Date Time Temp Pulse Resp B/P Pulse O2 O2 Flow FiO2 Ox Delivery Rate 08/03 0800 97.5 110 18 100/60 96 Room Air 08/03 0400 94 Room Air 08/03 0000 97 Nasal 4.0L Cannula 08/03 0000 97.0 107 17 118/52 97 Nasal 4.0L Cannula 08/02 2133 113 118/85 08/02 2000 99 Nasal 4.0L Cannula 08/02 1600 Nasal 4.0L Cannula 08/02 1600 98.3 122 20 106/50 94 Nasal 4.0L Cannula 08/02 1200 97.8 118 22 110/48 94 Room Air Intake & Output 08/03 1600 08/03 0800 08/03 0000 Intake Total 1504 1728.3 Output Total 40 10 Balance 1464 1718.3 Intake, IV 1104 958.3 Intake, Oral 400 770 Number 0 0 Bowel Movements Output, 40 10 Drainage Exam Other Physical Findings: gen awake alert heent ncat, left IJ cvs s1, s2 lungs diminished bases abd diffuse tendereness ext no edema Results Last 24 Hrs of Lab Results: Laboratory Tests 08/03/16 0444: Anion Gap 6, Estimated GFR 29 L, Glucose 190 H, Serum Osmolality 290, Calcium 8.0 L, Phosphorus 5.0 H, Magnesium 1.9, Total Bilirubin 0.2, AST 24, ALT 34, Albumin 1.8 L, CBC w Diff MAN DIFF ORDERED, RBC 3.91 L, MCV 80.9 L, MCH 26.4 L, RDW 17.4 H, MPV 8.3, Gran % 95.5 H, Lymphocytes % 3.1 L, Monocytes % 0.6 L, Eosinophils % 0.7, Basophils % 0.1, Absolute Granulocytes 10.9 H, Segmented Neutrophils 93 H, Band Neutrophils 6 H, Absolute Lymphocytes 0.4 L, Lymphocytes 1 L, Absolute Monocytes 0.1 L, Absolute Eosinophils 0.1, Absolute Basophils 0, Platelet Estimate ADEQUATE, Hypochromic-Microcytic 1+, Poikilocytosis FEW, Anisocytosis 1+, Microcytic Cells 1+, Ovalocytes FEW, PUBS MCHC 32.6 L, Fld Total RBCs Counted 100, Random Vancomycin 31.8 Impression/Plan Impression/Plan Impression/Plan: Impression 40 year old woman - hx of multiple collections/pus, usual pathogen is MSSA, pt now on vasopressors with hypotension consistent with septic shock secondary to purulent drained pelvic collection with staph aureus in sampled fluid - loculated right pleural effusion - hyponatremia - 121 - BROOKLYNN 1.9 - hypomagnesemia Plan - vancomycin, off ceftriaxone, f/u levels - nephrology consultation - hyponatremia/brooklynn/hyperkalemia - adrenal pathology? - pain control - hemodynamic monitoring - off levophed - monitor mag, phos, k and replete as needed - finger stick monitoring - DVT prophylaxis - Dilaudid for pain, increased to 1mg q6h TTS 40 min
--- NOTE | 2016-08-03 09:55 | Event Note ---
Event Note Event Note: Patient's reports of worsening erythema and swelling of her right elbow this morning. The reddness and swelling is extending till mid forarm and she has pitting edema in the surrounding area. She had a fever of 99.9 yesterday morning but has been afebrile since then. Right arm movement is extremely painful at right elbow joint. Will get an urgent right elbow usg to evaluate underlying pus pockets. Patient is already on vancomycin. Will continue to watch her closely.
--- NOTE | 2016-08-03 11:06 | NUR ---
[id number]: RECEIVED PT IN BED. A+OX3. ON RA. LUNGS CLEAR, ON RA. ST ON MONITOR. AFEBRILE. DENIES CHEST PAIN. B/P 90-110'S. PROPRANOLOL HELD, HOUSE STAFF AWARE. PT BURPING A LOT, COMPLAINING OF ABDOMINAL DISTENTION, ABD SOFT, HYPOACTIVE BOWEL SOUNDS, PT DID HAVE ONE SMALL EPISODE OF EMESIS, DARK BROWN IN COLOR. HOWEVER PT KEEPS ASKING FOR WATER, DID NOT EAT BREAKFAST. PT WAS INCONTINENT OF URINE PRIOR TO STRAIGHT CATH FOR LAB SAMPLE, PT REFUSING INCONTINENT CARE AT THIS TIME, EXPRESSED IMPORTANCE FOR SKIN BREAK DOWN, THIS RN AND MP BABB PLACED A DRY PAD FAR UNDER PT POSSIBLE AT THIS TIME TO KEEP WET PAD OFF PT. STRAIGHT CATH 1200ML, NOTIFIED ABOUT LARGE AMOUNT OF URINE RETAINED. WILL MONITOR. RIGHT ARM WARM, RED, SWOLLEN, PAINFUL. RIGHT UPPER THIGH WARM, RED, SWOLLEN, PAINFUL. MULTIPLE SCABS NOTED TO EXTREMITIES AND TO TOP OF PT'S HEAD. TAPE ALLERGY NOTED AROUND LIJ TLC SITE. PT SCRATCHING, INFORMED PT TO NOT SCRATCH AT DRESSINGS, PT HAD SCRATCHED AT REJ AND THE DRESSING AND IV WERE OUT AND KINKED. REJ REMOVED. MULTIPLE SKIN ISSUES TO BOTTOM, PT REFUSING TO TURN TO ALLOW PAD TO BE CHANGED OR SKIN ASSESSMENT. CVP 12. IVF RUNNING AT 125 ML/HR. PRECUTANEOUS DRAIN TO RUQ OF ABOMEN IN PLACE, FLUSHED WITH 10ML NS, REINOSO OUTPUT. AWAITING RIGHT ARM XRAY AND RENAL US. BED ROTATION TURNED ON. WILL MONITOR.
[2016-08-03 12:00] VITALS: BP 110/60
--- NOTE | 2016-08-03 12:06 | Cons- Nephrology ---
General Information and HPI Consulting Request Date of Consult: 08/03/16 Requested By: JERICHO RAMON MD Reason for Consult: brooklynn History of Present Illness: 40 yo femle with DM, multiple infections over last year. 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 She also had fall with pelvic fracure, multiple abdominal collections as well as a right hemothorax after a fall. Most ecently she as admitted after fall, right hip and leg pain, unable to ambulate. CT scan withotut IV contrast showed and right pelvic collection with mass effect on the bladder. Clinically she deteriorated on August [address] scan, with IV contrast, showed persisent pelvic collection, which was drained. After that she developed hypotension and septic picture, required pressors. Her creatinine was normal on admission, but by August 02 it had begun to rise and was 1.9 today. She was incontinent of urine so unclear how much urine she was making. She has been hyponatremic since admission and sodium was down to 121 today. She also has become more hyperkalemic at 5.6 She was straight cathed two hours ago for 1200 cc volume, Orta was not left in. FH: no history of renal disease SH: positive for smoking, negative for ethanol abuse. Allergies/Medications Allergies: Coded Allergies: codeine (Intermediate, HIVES 06/17/16) nickel (Intermediate, RASH 06/17/16) adhesive tape (Mild, RASH 06/17/16) duloxetine (Intermediate, NAUSEA 06/17/16) hydrocodone (GI UPSET (ESOPHAGITIS) 06/17/16) ibuprofen (GI UPSET (ESOPHAGITIS) 06/17/16) Home Med List: Albuterol Sulfate (Proair Hfa) 90 MCG HFA.AER.AD 2 PUF INH Q4-6 PRN PRN SOB ( Reported) Diphenhydramine HCl (Benadryl) 25 MG CAPSULE 1 CAP PO Q6 PRN ITCHING ( Reported) Ergocalciferol (Vitamin D2) (Drisdol) 50,000 UNIT CAPSULE 1 CAP PO QW Supplement Please take one of these medications every week for the next eight weeks. After that, you will be required to take one every two weeks for mainainance of your vitamin D Levels. Hydrocortisone Acetate (Micort-Hc) 2.5 % CREAM.APPL 1 DEMETRA TOP TID ITCHING ( Reported) Insulin Aspart (Novolog) 100 UNIT/ML VIAL 0 SC SEE ADMIN CRITERIA Diabetes Your insulin coverage was changed while in hospital. Sliding Scale Blood Sugar Less that 80mg/dl Initiate Hypoglycemia protocol 80-150 mg/dl 12 units 151-200 mg/dl 14 units 201-250 mg/dl 16 units 251-300 mg/dl 18 units 301-350 mg/dl 20 units 351-400 mg/dl 22 units More than 400 mg/dl 24 units call MD Please check your blood sugar at least three times a day. Inform your customer services manager about this change. Insulin Detemir (Levemir) 100 UNIT/ML VIAL 60 UNITS SC BID DM Pregabalin (Lyrica) 150 MG CAPSULE 1 CAP PO BID NEUROPATHY (Reported) Propranolol HCl 20 MG TABLET 1 TAB PO BID ANXIETY (Reported) Quetiapine Fumarate 100 MG TABLET 100 MG PO AT BEDTIME ANXIETY/SLEEP Current Medications: Current Medications Sig/Shahla Start time Last Medication Dose Route Stop Time Status Admin Acetaminophen 650 MG Q4 HRS NEEDED PRN 07/31 0800 AC 08/02 PO 0911 Albuterol Sulfate 2 PUF Q4P PRN 07/30 2200 AC INH Ceftriaxone Sodium 1,000 MG DAILY 08/01 1545 DC 08/02 IV 0911 Celecoxib 100 MG BID 08/01 2200 DC 08/02 PO 2130 Diclofenac Sodium 1 DEMETRA TID PRN 07/30 1145 AC 08/01 TOP 1044 Diphenhydramine HCl 75 MG Q6P PRN 07/31 1100 AC 08/03 PO 0845 Docusate Sodium 100 MG DAILY 07/31 1000 AC 08/03 PO 1001 Enoxaparin Sodium 40 MG DAILY 08/02 1000 AC 08/03 SC 1000 Hydromorphone HCl 1 MG Q6P PRN 08/03 1030 AC IV Hydromorphone HCl 0.6 MG Q6P PRN 08/03 0830 DC 08/03 IV 0834 Hydromorphone HCl 0.6 MG Q4P PRN 08/02 1745 DC 08/03 IV 0441 Hydromorphone HCl 0.6 MG ONCE ONE 08/02 1430 DC 08/02 IV 08/02 1431 1428 Insulin Aspart 0 TIDAC/HS 08/01 0800 AC 08/03 SC 0816 Insulin Detemir 60 UNITS BID 07/28 2200 AC 08/03 SC 1000 Lidocaine 1 PAT DAILY 07/28 1800 AC 07/28 EXT 2004 Magnesium Sulfate 1 GM ONCE ONE 08/02 1100 DC 08/02 Dextrose/Water 100 ML IV 08/02 1459 1301 Miconazole Nitrate 1 DEMETRA AT BEDTIME 07/29 0130 AC 08/01 VAG 2318 Norepinephrine 4 MG Q24H 08/01 2345 DC 08/02 Sodium Chloride 250 ML IV 0533 Oxacillin Sodium 2,000 MG Q4 08/03 1400 AC Sodium Chloride 100 ML IV Pregabalin 150 MG BID 07/28 2200 AC 08/03 PO 1000 Promethazine HCl 12.5 MG ONCE ONE 08/02 2345 DC 08/03 IV 08/02 2346 0018 Promethazine HCl 12.5 MG ONCE ONE 08/02 1400 DC 08/02 IV 08/02 1401 1405 Propranolol HCl 20 MG BID 07/28 2200 AC 08/01 PO 0918 Senna/Docusate Sodium 2 TAB DAILY 07/31 1000 AC 08/03 PO 1001 Sertraline HCl 25 MG DAILY 07/31 1054 DC 08/03 PO 1001 Simethicone 80 MG Q6P PRN 08/03 0830 AC 08/03 PO 1001 Sodium Chloride 1,000 ML Q8H 07/31 1515 AC 08/03 IV 1001 Vancomycin HCl 1,250 MG Q12H 08/01 1600 DC 08/03 Dextrose/Water 250 ML IV 0423 Review of Systems Review of Systems: Negative except as noted above. 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 FH: cirrhosis Psychosocial History Where Do You Live? Home Who Do You Live With? with friend Primary Language: Kiswahili Smoking Status: Current Everyday Smoker ETOH Use: denies use Living Will? no Power of Lead Tinner/HCP? no Functional Ability ADLs Independent: dressing, eating, toileting, bathing. Ambulation: independent IADLs Independent: shopping, housework, finances, food prep, telephone, transportation , medication admin. Exam & Diagnostic Data Vital Signs and I&O Vital Signs Date Time Temp Pulse Resp B/P Pulse O2 O2 Flow FiO2 Ox Delivery Rate 08/03 1001 110 107/58 08/03 0800 97.5 110 18 100/60 96 Room Air 08/03 0400 94 Room Air 08/03 0000 97 Nasal 4.0L Cannula 08/03 0000 97.0 107 17 118/52 97 Nasal 4.0L Cannula 08/02 2133 113 118/85 08/02 2000 99 Nasal 4.0L Cannula 08/02 1600 Nasal 4.0L Cannula 08/02 1600 98.3 122 20 106/50 94 Nasal 4.0L Cannula 08/02 1200 97.8 118 22 110/48 94 Room Air Intake & Output 08/03 1600 08/03 0400 08/02 1600 08/02 0400 08/01 1600 08/01 0400 Intake Total 1504 1728.3 4876.6 3766 180 Output Total 40 10 120 460 900 Balance 1464 1718.3 4756.6 3306 180 -900 Intake, IV 1104 958.3 3196.6 3206 Intake, Oral 112 155 2521 560 180 Number 0 0 0 Bowel Movements Output, 40 10 20 460 Drainage Output, 100 Emesis Output, Urine 900 Physical Exam: Patient complaint of right hip and side pain. VS as above Eyes: anicteric, PERRLA Neck: no mass or thryomegaly Nodes: negative cervical, couldn't examin inguinal Skin: no rash or induration Lungs: clear P&A CV: no rub or murmur Abd: drain in place, RLQ tenderness, BS positive Exts: 2+ right thigh, hip edema, also edema of right arm. Neuro: A&O, CNI, no asterixis. Results Pertinent Lab Results: Laboratory Tests 08/03 08/02 0444 0416 Chemistry Sodium (137 - 145 mmol/L) 121 L 130 L Potassium (3.5 - 5.1 mmol/L) 5.6 H 5.1 Chloride (98 - 107 mmol/L) 98 103 Carbon Dioxide (22 - 30 mmol/L) 16 L 17 L Anion Gap (5 - 16) 6 9 BUN (7 - 17 mg/dL) 56 H 46 H Creatinine (0.5 - 1.0 mg/dL) 1.9 H 1.5 H Estimated GFR (>60 ml/min) 29 L 39 L BUN/Creatinine Ratio (7 - 25 %) 30.7 H Glucose (65 - 99 mg/dL) 190 H Serum Osmolality (285 - 295 MOSM/KG) 290 Lactic Acid (0.7 - 2.1 mmol/L) 3.1 H Calcium (8.4 - 10.2 mg/dL) 8.0 L Phosphorus (2.5 - 4.5 mg/dL) 5.0 H Magnesium (1.6 - 2.3 mg/dL) 1.9 Total Bilirubin (0.2 - 1.3 mg/dL) 0.2 AST (14 - 36 U/L) 24 ALT (9 - 52 U/L) 34 Albumin (3.5 - 5.0 g/dL) 1.8 L Cortisol AM Sample (4.46 - 22.7 ug/dL) Pending Hematology CBC w Diff MAN DIFF ORDERED NO MAN DIFF REQ WBC (4.8 - 10.8 /CUMM) 11.4 H 12.9 H RBC (4.20 - 5.40 /CUMM) 3.91 L 3.78 L Hgb (12.0 - 16.0 G/DL) 10.3 L 10.1 L Hct (37 - 47 %) 31.6 L 30.8 L MCV (81.0 - 99.0 FL) 80.9 L 81.4 MCH (27.0 - 31.0 PG) 26.4 L 26.6 L RDW (11.5 - 14.5 %) 17.4 H 17.7 H Plt Count (130 - 400 /CUMM) 199 210 MPV (7.4 - 10.4 FL) 8.3 8.6 Gran % (42.2 - 75.2 %) 95.5 H 94.6 H Lymphocytes % (20.5 - 51.1 %) 3.1 L 3.5 L Monocytes % (1.7 - 9.3 %) 0.6 L 0.7 L Eosinophils % (0 - 5 %) 0.7 1.1 Basophils % (0.0 - 2.0 %) 0.1 0.1 Absolute Granulocytes (1.4 - 6.5 /CUMM) 10.9 H 12.2 H Segmented Neutrophils (42.2 - 75.2 %) 93 H Band Neutrophils (0.0 - 5.0 %) 6 H Absolute Lymphocytes (1.2 - 3.4 /CUMM) 0.4 L 0.5 L Lymphocytes (20.5 - 51.1 %) 1 L Absolute Monocytes (0.10 - 0.60 /CUMM) 0.1 L 0.1 L Absolute Eosinophils (0.0 - 0.7 /CUMM) 0.1 0.1 Absolute Basophils (0.0 - 0.2 /CUMM) 0 0 Platelet Estimate (ADEQUATE) ADEQUATE Hypochromic-Microcytic 1+ Poikilocytosis FEW Anisocytosis 1+ Microcytic Cells 1+ Ovalocytes FEW PUBS MCHC (33.0 - 37.0 G/DL) 32.6 L 32.7 L Other Body Source Fld Total RBCs Counted (%) 100 Toxicology Random Vancomycin (ug/ml) 31.8 18 18 08/02 0253 0014 0008 Chemistry Sodium (137 - 145 mmol/L) 127 L Potassium (3.5 - 5.1 mmol/L) 4.6 Chloride (98 - 107 mmol/L) 103 Carbon Dioxide (22 - 30 mmol/L) 18 L Anion Gap (5 - 16) 6 BUN (7 - 17 mg/dL) 44 H Creatinine (0.5 - 1.0 mg/dL) 1.4 H Estimated GFR (>60 ml/min) 42 L Glucose (65 - 99 mg/dL) 99 Lactic Acid (0.7 - 2.1 mmol/L) Cancelled 3.5 H Calcium (8.4 - 10.2 mg/dL) 7.8 L Phosphorus (2.5 - 4.5 mg/dL) 3.9 Magnesium (1.6 - 2.3 mg/dL) 1.6 Total Bilirubin (0.2 - 1.3 mg/dL) 0.2 AST (14 - 36 U/L) 16 ALT (9 - 52 U/L) 24 Albumin (3.5 - 5.0 g/dL) 1.7 L Hematology CBC w Diff MAN DIFF ORDERED WBC (4.8 - 10.8 /CUMM) 11.4 H RBC (4.20 - 5.40 /CUMM) 3.62 L Hgb (12.0 - 16.0 G/DL) 9.6 L Hct (37 - 47 %) 29.5 L MCV (81.0 - 99.0 FL) 81.5 MCH (27.0 - 31.0 PG) 26.6 L RDW (11.5 - 14.5 %) 17.4 H Plt Count (130 - 400 /CUMM) 213 MPV (7.4 - 10.4 FL) 8.9 Gran % (42.2 - 75.2 %) 94.4 H Lymphocytes % (20.5 - 51.1 %) 4.1 L Monocytes % (1.7 - 9.3 %) 0.5 L Eosinophils % (0 - 5 %) 1.0 Basophils % (0.0 - 2.0 %) 0 L Absolute Granulocytes (1.4 - 6.5 /CUMM) 10.7 H Segmented Neutrophils (42.2 - 75.2 %) 58 Band Neutrophils (0.0 - 5.0 %) 30 H Absolute Lymphocytes (1.2 - 3.4 /CUMM) 0.5 L Lymphocytes (20.5 - 51.1 %) 8 L Monocytes (1.7 - 9.3 %) 1 L Absolute Monocytes (0.10 - 0.60 /CUMM) 0.1 L Eosinophils (0 - 5.0 %) 2 Absolute Eosinophils (0.0 - 0.7 /CUMM) 0.1 Absolute Basophils (0.0 - 0.2 /CUMM) 0 Metamyelocytes (0.0 - 1.0 %) 1 Platelet Estimate (ADEQUATE) ADEQUATE Polychromasia 1+ Hypochromic-Microcytic 1+ Anisocytosis 1+ Microcytic Cells 1+ Macrocytic Cells 1+ PUBS MCHC (33.0 - 37.0 G/DL) 32.7 L 08/01 08/01 07/31 0958 0750 2100 Chemistry Sodium (137 - 145 mmol/L) 127 L Potassium (3.5 - 5.1 mmol/L) 4.7 Chloride (98 - 107 mmol/L) 96 L Carbon Dioxide (22 - 30 mmol/L) 21 L Anion Gap (5 - 16) 10 BUN (7 - 17 mg/dL) 42 H Creatinine (0.5 - 1.0 mg/dL) 1.1 H Estimated GFR (>60 ml/min) 55 L BUN/Creatinine Ratio (7 - 25 %) 38.2 H Lactic Acid (0.7 - 2.1 mmol/L) 4.0 H Cancelled Hematology CBC w Diff MAN DIFF ORDERED WBC (4.8 - 10.8 /CUMM) 9.0 RBC (4.20 - 5.40 /CUMM) 4.48 Hgb (12.0 - 16.0 G/DL) 11.8 L Hct (37 - 47 %) 36.0 L MCV (81.0 - 99.0 FL) 80.3 L MCH (27.0 - 31.0 PG) 26.4 L RDW (11.5 - 14.5 %) 17.0 H Plt Count (130 - 400 /CUMM) 216 MPV (7.4 - 10.4 FL) 8.9 Gran % (42.2 - 75.2 %) 90.8 H Lymphocytes % (20.5 - 51.1 %) 6.3 L Monocytes % (1.7 - 9.3 %) 1.7 Eosinophils % (0 - 5 %) 1.2 Basophils % (0.0 - 2.0 %) 0 L Absolute Granulocytes (1.4 - 6.5 /CUMM) 8.2 H Segmented Neutrophils (42.2 - 75.2 %) 57 Band Neutrophils (0.0 - 5.0 %) 31 H Absolute Lymphocytes (1.2 - 3.4 /CUMM) 0.6 L Lymphocytes (20.5 - 51.1 %) 6 L Monocytes (1.7 - 9.3 %) 4 Absolute Monocytes (0.10 - 0.60 /CUMM) 0.2 Eosinophils (0 - 5.0 %) 1 Absolute Eosinophils (0.0 - 0.7 /CUMM) 0.1 Absolute Basophils (0.0 - 0.2 /CUMM) 0 Metamyelocytes (0.0 - 1.0 %) 1 Platelet Estimate (ADEQUATE) VERIFIED BY SMEAR Anisocytosis 1+ PUBS MCHC (33.0 - 37.0 G/DL) 32.9 L 07/31 02/ 1800 1330 Chemistry Lactic Acid (0.7 - 2.1 mmol/L) 4.0 H 4.4 H Imaging/Other Studies: CT scan did not show obstruction on 08-01 Assessment/Plan Assessment/Recommendations Assessment: BROOKLYNN, probably mutifactorial. She had IV contrast, was getting NSAIDs at that time, became septic and hypotensive. At some point after the CT she developed urinary retention, reason not entirely clear although abscess did affect bladder. Hyponatremia predated renal failure, probably related to ADH release with stress/pain as well as contributed by antidepressants, NSAIDS. Hyperkalemia resultant of renal insufficiency. Recommendations: Need to leave Orta in to document urine output in this critically ill woman. I would suggest changing IV fluids to D51/2NS plus 75 meq/L of NaHCO3, as this will help with acidemia and potassium. Would start at around 100 cc/hr, modify rate depending on UO. All drips/IV fluids should be put in NS if possible to try and limit free water. Obviously would not give further NSAIDs, IV contrast or aminoglycosides.
--- NOTE | 2016-08-03 12:15 | RADIOLOGY REPORT ---
EXAMINATION: XR ELBOW, RIGHT CLINICAL INFORMATION: Worsening swelling COMPARISON: None TECHNIQUE: Two views of the right elbow. FINDINGS: Generalized subcutaneous edema. Limited positioning. Assessment for joint effusion is not possible. No gross bony lesion. No periosteal new bone formation. IMPRESSION: Very limited positioning. Nonspecific soft tissue swelling. Assessment for joint effusion not possible.
--- NOTE | 2016-08-03 12:40 | NUR ---
ELIAS PLACED PER DR DURAN. YELLOW CLOUDY URINE OBTAINED. PT TOLERATED WELL. INCONINENT PADS REMOVED AT THIS TIME PER PT REQUEST. WILL MONITOR.
--- NOTE | 2016-08-03 14:04 | NUR ---
1200 CVP NOT DONE, PT REFUSING TO HAVE BED PUT FLAT AT THIS TIME. WILL ATTEMPT LATER.
--- NOTE | 2016-08-03 15:32 | NUR ---
REPEAT ICU BUNDLE DRAWN VIA LIJ TLC, BLOOD FLOW SLOW THRU BLUE PORT, NO BLOOD RETURN THRU WHITE OR BROWN PORT. HAD PT REPOSITION HEAD. CAP CHANGED.
[2016-08-03 16:00] VITALS: BP 112/60
--- NOTE | 2016-08-03 17:43 | ULTRASOUND REPORT ---
EXAMINATION: RIGHT ELBOW ULTRASOUND AND RENAL ULTRASOUND CLINICAL INFORMATION: Right elbow swelling. Renal insufficiency. Left-sided flank pain. COMPARISON: 08/01/2016 TECHNIQUE: As above. Grayscale and color Doppler. FINDINGS: Within the symptomatic area about the posterior aspect of the right upper extremity, extending to the right elbow is diffuse subcutaneous edema. There is a small hypoechoic area measuring approximately 16 x 4 x 9 mm posterior to the elbow which represent a small infected fluid collection versus bursal fluid. No other focal lesion. Imaging of the kidneys demonstrate normal appearance of both kidneys. Right kidney measures approximately 11 cm. Left kidney measures approximately 12.1 cm. No hydronephrosis, mass, or calculus. No perinephric abnormality. The bladder is relatively decompressed. Please note, overall imaging is limited due to body habitus. IMPRESSION: Small amount of likely bursal fluid about the posterior aspect of the right elbow. Limited imaging of the kidneys demonstrate no hydronephrosis or focal lesion.
[2016-08-04] VITALS: BP 98/42
[2016-08-04 04:58] LABS: ABSOLUTE BASOPHIL COUNT 0 /CUMM (0.0-0.2); ABSOLUTE EOSINOPHIL COUNT 0.1 /CUMM (0.0-0.7); ABSOLUTE GRANULOCYTE CT 10.9 /CUMM (1.4-6.5); ABSOLUTE LYMPH COUNT 0.3 /CUMM (1.2-3.4); ABSOLUTE MONOCYTE COUNT 0 /CUMM (0.10-0.60); BASOPHIL % 0.1 % (0.0-2.0); GRANULOCYTE % 95.6 % (42.2-75.2); HEMATOCRIT 31.2 % (37-47); MEAN CORPUSCULAR HGB 26.3 PG (27.0-31.0); MEAN CORPUSCULAR HGB CONC 32.5 G/DL (33.0-37.0); MEAN CORPUSCULAR VOLUME 81.1 FL (81.0-99.0); MEAN PLATELET VOLUME 8.1 FL (7.4-10.4); PLATELET COUNT 216 /CUMM (130-400); RBC DISTRIBUTION WIDTH 17.7 % (11.5-14.5); RED BLOOD CELL CT 3.85 /CUMM (4.20-5.40); WHITE BLOOD CELL COUNT 11.4 /CUMM (4.8-10.8)
--- NOTE | 2016-08-04 06:00 | NUR ---
PT URINE OUTPUT CONTINUES TO DROP. CVP 6. MD NOTIFIED. NS BOLUS 500 MLS GIVEN. PT URINE OUTPUT 12MLS AFTER BOLUS. DR. VALENZUELA AWARE. BP IMPROVED IN THE 120S/60S. PT PREVIOUSLY MEDICATED FOR PAIN AND PT REPOSITIONED TO GIVE HYGIENE. PT WEEPING LARGE AMOUTS OF FLUID FROM RIGHT LEG. SKIN MACERATED. PT HAS LARGE UNSTAGEABLE TO RIGHT BUTTOCK AND SMALL STAGE 2 TO LEFT BUTTOCK. PERCUTANEOUS DRAIN FLUSHED WITH 10 MLS, 10 ML RETURNED.
--- NOTE | 2016-08-04 06:59 | PN- Resident CRCU ---
Subjective HPI/CRCU Issues: Pt seen this morning, reports "feeling like crap", awaiting her pain meds. She continues to feel pain on her left abdomen/flank, she jumps to the slightest touch. She continues to have limited ROM on the right shoulder and elbow. I spoke to Dr. Schulz from orthopedic and she recommended getting MRI. They need her arm to be positioned above her head and she is unwilling to do it, unless she is totally sedated with anesthesia, she refuses the MRI. Proline can only be scheduled on , August 07, at 1030 am, due to anesthesia availability. Pt should be NPO past midnight and have her lovenox held for that day. Na improved from 121 to 127. Fena 0.1. Serum osm 290, urine osm 350. K improved from 5.6 to 4.6 UO 10-20 ml/hr on the 100 ml/hr of 75 meq bicarb in d51/2 . however the catheter was leaking, so urine output measurement was not accurate BUN/cr from 56/1.8 to 59/2.2 Increased rate of 75 meq bicarb in d51/2 to 150 ml/hr --> UO about 30-40ml/hr ABG obtained this morning, ph 7.29. with co2 32, bicarb 15. She has not been eating much, with blood glucose 72, 101, 103. Held this am levemir. 24 Hour Events: Max temp 97 ST 102-112 RR 12-20 Systolic BP 77-129 Diastolic BP 57-69 CVP 6 + 5178 -1877 UO 10-20ml/hr total output from pelvic drain 530ml since it was placed Objective Vital Signs & I&O Last 8 Hrs of Vitals and I&O: Intake & Output 08/04 1600 08/04 0800 08/04 0000 Intake Total 1770 1754 Output Total 117 360 Balance 1653 1394 Intake, IV 1530 1314 Intake, Oral 240 440 Number 0 Bowel Movements Output, 0 Drainage Output, Stool 0 Output, Urine 117 360 Laboratory Tests 08/04 08/04 08/03 1008 0435 1530 Blood Gas pH (7.35 - 7.45 PH) 7.29 *L pCO2 (35 - 45 TORR) 32 L pO2 (80 - 100 TORR) 72 L HCO3 (21 - 28 MEQ/L) 15 L ABG O2 Sat (Measured) (>96.0 %) 94.0 L P-50 (Temp Corrected) N Carboxyhemoglobin (1.5 - 5.0 %) 0.4 L O2 Concentration % .21 Temperature (97.0 - 100.0 FARH) 96.5 L O2 Delivery Method RA Chemistry Sodium (137 - 145 mmol/L) 127 L 124 L Potassium (3.5 - 5.1 mmol/L) 4.6 4.8 Chloride (98 - 107 mmol/L) 100 104 Carbon Dioxide (22 - 30 mmol/L) 17 L 14 L Anion Gap (5 - 16) 9 6 BUN (7 - 17 mg/dL) 59 H 56 H Creatinine (0.5 - 1.0 mg/dL) 2.2 H 1.8 H Estimated GFR (>60 ml/min) 25 L 31 L BUN/Creatinine Ratio (7 - 25 %) 26.8 H Glucose (65 - 99 mg/dL) 104 H Calcium (8.4 - 10.2 mg/dL) 7.6 L Phosphorus (2.5 - 4.5 mg/dL) 4.8 H 4.6 H Magnesium (1.6 - 2.3 mg/dL) 1.9 1.8 Total Bilirubin (0.2 - 1.3 mg/dL) 0.2 AST (14 - 36 U/L) 22 ALT (9 - 52 U/L) 28 Albumin (3.5 - 5.0 g/dL) 1.7 L Hematology CBC w Diff MAN DIFF ORDERED WBC (4.8 - 10.8 /CUMM) 11.4 H RBC (4.20 - 5.40 /CUMM) 3.85 L Hgb (12.0 - 16.0 G/DL) 10.1 L Hct (37 - 47 %) 31.2 L MCV (81.0 - 99.0 FL) 81.1 MCH (27.0 - 31.0 PG) 26.3 L RDW (11.5 - 14.5 %) 17.7 H Plt Count (130 - 400 /CUMM) 216 MPV (7.4 - 10.4 FL) 8.1 Gran % (42.2 - 75.2 %) 95.6 H Lymphocytes % (20.5 - 51.1 %) 2.9 L Monocytes % (1.7 - 9.3 %) 0.4 L Eosinophils % (0 - 5 %) 1.0 Basophils % (0.0 - 2.0 %) 0.1 Absolute Granulocytes (1.4 - 6.5 /CUMM) 10.9 H Segmented Neutrophils (42.2 - 75.2 %) 84 H Band Neutrophils (0.0 - 5.0 %) 11 H Absolute Lymphocytes (1.2 - 3.4 /CUMM) 0.3 L Lymphocytes (20.5 - 51.1 %) 3 L Monocytes (1.7 - 9.3 %) 2 Absolute Monocytes (0.10 - 0.60 /CUMM) 0 L Absolute Eosinophils (0.0 - 0.7 /CUMM) 0.1 Absolute Basophils (0.0 - 0.2 /CUMM) 0 Platelet Estimate (ADEQUATE) ADEQUATE Hypochromic-Microcytic 1+ Ovalocytes 1+ PUBS MCHC (33.0 - 37.0 G/DL) 32.5 L Miscellaneous Phlebotomy Draw Site LEFT RADIAL Vital Signs Date Time Temp Pulse Resp B/P Pulse O2 O2 Flow FiO2 Ox Delivery Rate 08/04 1120 Room Air Room Air 08/04 1109 117 92/64 08/04 0800 96.5 113 20 124/70 98 Room Air 08/04 0800 96 Room Air 08/04 0401 97 Room Air 08/04 0000 96.1 112 16 98/42 99 Room Air 08/04 0000 99 Room Air 08/03 2326 112 96/48 08/03 2000 96 Room Air 08/03 1600 97.0 104 20 112/60 97 Room Air Exam General Appearance: alert, awake, mild distress Head: alopecia noted Respiratory: decreased breath sounds Cardiovascular: tachycardia Gastrointestinal: normal bowel sounds, soft, tender on the left to slightest palpation Extremities: ROM severely limited on right shoulder and right elbow Current Medications: Current Medications Sig/Shahla Start time Last Medication Dose Route Stop Time Status Admin Acetaminophen 650 MG Q4 HRS NEEDED PRN 07/31 0800 AC 08/02 PO 0911 Albuterol Sulfate 2 PUF Q4P PRN 07/30 2200 AC INH Collagenase 1 DEMETRA DAILY 08/04 1000 AC TOP Diclofenac Sodium 1 DEMETRA TID PRN 07/30 1145 AC 08/01 TOP 1044 Diphenhydramine HCl 75 MG Q6P PRN 07/31 1100 AC 08/04 PO 0610 Docusate Sodium 100 MG DAILY 07/31 1000 AC 08/03 PO 1001 Enoxaparin Sodium 40 MG DAILY 08/02 1000 AC 08/04 SC 0955 Hydromorphone HCl 0.2 MG ONCE ONE 08/04 0830 DC 08/04 IV 08/04 0831 0827 Hydromorphone HCl 0.2 MG ONCE ONE 08/03 2315 DC 08/03 IV 08/03 2316 2325 Hydromorphone HCl 1 MG Q6P PRN 08/03 1030 AC 08/04 IV 1108 Insulin Aspart 0 TIDAC/HS 08/01 0800 AC 08/03 SC 1221 Insulin Detemir 20 UNITS ONCE ONE 08/03 2245 DC 08/03 SC 08/03 2300 2324 Insulin Detemir 60 UNITS BID 07/28 2200 AC 08/03 SC 1000 Lidocaine 1 PAT DAILY 07/28 1800 AC 07/28 EXT 2004 Miconazole Nitrate 1 DEMETRA AT BEDTIME 07/29 0130 AC 08/01 VAG 2318 Oxacillin Sodium 2,000 MG Q4 08/03 1400 AC 08/04 Sodium Chloride 100 ML IV 0949 Oxymetazoline HCl 1 SPRAY Q12 08/03 1518 AC ANNETTE 08/05 2201 Pregabalin 150 MG BID 07/28 2200 AC 08/04 PO 0950 Propranolol HCl 20 MG BID 07/28 2200 AC 08/01 PO 0918 Senna/Docusate Sodium 2 TAB DAILY 07/31 1000 AC 08/04 PO 0953 Simethicone 80 MG Q6P PRN 08/03 0830 AC 08/03 PO 1001 Sodium Bicarbonate 150 MEQ Q10H 08/04 1845 DC Dextrose/Sodium 1,000 ML IV Chloride Sodium Bicarbonate 75 MEQ Q6H 08/04 0930 AC 08/04 Dextrose/Sodium 1,000 ML IV 0950 Chloride Sodium Bicarbonate 75 MEQ Q10H 08/03 1245 DC 08/03 Dextrose/Sodium 1,000 ML IV 2325 Chloride Sodium Chloride 500 ML BOLUS ONE 08/04 0500 DC 08/04 IV 08/04 0559 0510 Impression/Plan Impression/Problem List Impression: 40-year-old lady with a PMH of diabetes, previous right-sided hemorrhagic pleural effusion S/P Pleurx catheter, lytic therapy 2, previous MSSA sepsis likely secondary to pro-line catheter, previous necrotizing fasciitis of the perineum, left pararenal abscess, osteomyelitis of pubic bone, polysubstance abuse, depression, opiate dependence who presented with complaints of right-sided hip pain, s/p aspiration of 300 ml of purulent fluid, by Dr. Kahtryn Sam on 08/01/16, subsequently found to be hypotensive, requiring close monitoring in the ICU. She did require levophed for 1 day, with her BP now stable. Quetiapine discontinued due to concerns of hypotension. She was started on vancomycin and ceftriaxone after the procedure. Ceftriaxone discontinued on day # 2 of abx and vancomycin discontinued on day # 3 of abx. Currently on oxacillin for MSSA. She developed acute kidney injury, hyponatremia, hyperkalemia while she is in the ICU, thought to be multifactorial, including renal insult by IV contrast, NSAIDs, hypotension, urinary retention, and vancomycin. Nephrology consulted. Sertraline, celecoxib, and vancomycin discontinued. She was put on 75meq bicarb in d51/2ns, and her hyponatremia and hyperkalemia improved, although BUN/cr continues to be elevated. While she was in the ICU, the lesion on her scalp spontaneously drained purulent material, with alopecia noted in the affected area. She continues to endorse right upper extremity and shoulder pain. Dr. Schulz contacted and recommended MRI to further evaluate soft tissue contusion, but pt refuses to get an MRI or hold her right upper extremity above her head unless she is sedated with anesthesia. Currently stable to be transferred to . Orta: Day #2 Central line: Day #4 Proline can only be scheduled on August 07, at 1030 am, due to anesthesia availability. Pt should be NPO past midnight and have her lovenox held for that day. ID # Pelvic abscess sp IR drainage * Received vancomycin for 2 days (last dose 08/03 at 4am). Vanc level 31.8 on . Vancomycin 1250 Q12 discontinued based on Dr. Dunbar's and pharmacistMayra's recc. Started oxacillin 2g IV q4 for MSSA on 08/03. Today abx day #4 * Proline can only be scheduled on August 07, at 1030 am, due to anesthesia availability. Pt should be NPO past midnight and have her lovenox held for that day. * Ceftriaxone has been discontinued after 2 days. * For pain, continue Diclofenac, Lyrica 150 bid, Lidocaine patch, Benadryl po 75 q6P * F/U cultures (MSSA) * Plan for discharge to rehab (needs to be on IV abx) * Continue Miconazole * Continue dilaudid 1mg Q6P * Avoid benzo given hx of benzo dependence * The tube should be open to external gravity drainage via drainage bag. Tube should be flushed Q shift with 10 mL normal saline. Strict output should be measured, not including these flushes. # Right shoulder pain with decreased passive ROM # Right elbow swelling * Xray and US obtained * Refuses MRI * Ortho (Dr. Schulz) consulted # The scalp lesion popped 08/02 PM, with purulent drainage noted Metabolic # Acute kidney injury most likely due to IV contrast, NSAIDs, hypotension, urinary retention, vancomycin - Noted worsening of BUN/Cr from 31/0.9 on admission to 56/1.9. - Straight cath put out > 1L of urine , pt also complains of incontinence - Renal US did not show hydronephrosis * Follow up fena, urine lytes, serum osm and urine osm. * D51/2NS plus 75 meq/L of NaHCO3 at 150 ml/hr * Zoloft discontinued * Appreciate renal input * Celecoxib 100 bid discontinued * Vancomycin discontinued * Orta inserted * No NSAIDs, IV contrast or aminoglycosides # Hyponatremia Hyponatremia predated renal failure, probably related to ADH release with stress /pain as well as contributed by antidepressants, NSAIDS - 08/03: Na 130 to 121, with glucose around 200. Fena 0.1. Serum osm 290, urine osm 350. * All drips/IV fluids should be put in NS if possible to try and limit free water. * Na improved from 121 to 127. # Hyperkalemia - Most likely resultant of renal insufficiency. - 08/04: K improved from 5.6 to 4.6 Cardiovascular # Hypotension (resolved) * Left IJ central line in place * Levophed from 08/01 at 2345 to 08/02 at 1931. Now off. BP stable Psych # Depression * Started Sertraline 25 daily, but discontinued due to hyponatremia * Started Quetiapine 100 mg PO at bedtime, but discontinued due to concerns of causing hypotension * Continue Propanolol 20 bid (hold if hypotensive) * On the W-10 and the discharge instructions, please ask the receiving facility/ ECF to call and make an intake appointment at [facility], [address] [place] [address] when her discharge date is known, . # Diabetes mellitus * Novolog tidac/qhs * Levemir 60 bid (hold if poor po intake) * Watch blood sugar closely * Consider endo consult Alimentary - She has not had bowel movement since 07/31, and is feeling gassy and burpy. * Continue Senna, Docusate Skin - Pt refused to be examined on admission and refused to be changed, very reluctant to be turned - On 07/30: wound care nurse Latia noted unstageably pressure injury to right buttocks and stage 2 ulcers on left buttocks. I have not seen it personally myself because she refuses to turn or even move slightly for me, but these ulcers are most likely present on admission Diet: CC3 DVT ppx: alps and Lovenox FC Consults: ID, psych,renal Labs: bep mag phos for acute kidney injury , cbc for leukocytosis Problem List: 1. Hip pain 2. Arm pain Pain Ratin Tomorrow's Labs & Rationales: bep mag phos for acute kidney injury , cbc for leukocytosis Plan DVT/Prophylaxis: mechanical, pharmacological
[2016-08-04 08:00] VITALS: BP 124/70
--- NOTE | 2016-08-04 08:01 | NUR ---
OCCUPATIONAL THERAPY NOTE: CHART REVIEWED. PT WITH CHANGE IN MEDICAL STATUS, TRANSFERRED TO ICU. OT ON HOLD. PLEASE RE-CONSULT FOR OT WHEN MEDICALLY APPROPRIATE. THANK YOU.
--- NOTE | 2016-08-04 09:45 | PN- CRCU ---
Subjective HPI/Critical Care Issues: pt seen and examined renal usg no hydronephrosis creatinine now 2.2 sodium improved to 127 nephrology following on bicarbonate drip, no ph on file, will get abg Objective Current Medications: Current Medications Sig/Shahla Start time Last Medication Dose Route Stop Time Status Admin Acetaminophen 650 MG Q4 HRS NEEDED PRN 07/31 0800 AC 08/02 PO 0911 Albuterol Sulfate 2 PUF Q4P PRN 07/30 2200 AC INH Collagenase 1 DEMETRA DAILY 08/04 1000 AC TOP Diclofenac Sodium 1 DEMETRA TID PRN 07/30 1145 AC 08/01 TOP 1044 Diphenhydramine HCl 75 MG Q6P PRN 07/31 1100 AC 08/04 PO 0610 Docusate Sodium 100 MG DAILY 07/31 1000 AC 08/03 PO 1001 Enoxaparin Sodium 40 MG DAILY 08/02 1000 AC 08/03 SC 1000 Hydromorphone HCl 0.2 MG ONCE ONE 08/04 0830 DC 08/04 IV 08/04 0831 0827 Hydromorphone HCl 0.2 MG ONCE ONE 08/03 2315 DC 08/03 IV 08/03 2316 2325 Hydromorphone HCl 1 MG Q6P PRN 08/03 1030 AC 08/04 IV 0446 Hydromorphone HCl 0.6 MG Q6P PRN 08/03 0830 DC 08/03 IV 0834 Insulin Aspart 0 TIDAC/HS 08/01 0800 AC 08/03 SC 1221 Insulin Detemir 20 UNITS ONCE ONE 08/03 2245 DC 08/03 SC 08/03 2300 2324 Insulin Detemir 60 UNITS BID 07/28 2200 AC 08/03 SC 1000 Lidocaine 1 PAT DAILY 07/28 1800 AC 07/28 EXT 2004 Miconazole Nitrate 1 DEMETRA AT BEDTIME 07/29 0130 AC 08/01 VAG 2318 Oxacillin Sodium 2,000 MG Q4 08/03 1400 AC 08/04 Sodium Chloride 100 ML IV 0609 Oxymetazoline HCl 1 SPRAY Q12 08/03 1518 AC ANNETTE 08/05 2201 Pregabalin 150 MG BID 07/28 2200 AC 08/03 PO 2136 Propranolol HCl 20 MG BID 07/28 2200 AC 08/01 PO 0918 Senna/Docusate Sodium 2 TAB DAILY 07/31 1000 AC 08/03 PO 1001 Sertraline HCl 25 MG DAILY 07/31 1054 DC 08/03 PO 1001 Simethicone 80 MG Q6P PRN 08/03 0830 AC 08/03 PO 1001 Sodium Bicarbonate 150 MEQ Q10H 08/04 1845 DC Dextrose/Sodium 1,000 ML IV Chloride Sodium Bicarbonate 75 MEQ Q6H 08/04 0930 AC Dextrose/Sodium 1,000 ML IV Chloride Sodium Bicarbonate 75 MEQ Q10H 08/03 1245 DC 08/03 Dextrose/Sodium 1,000 ML IV 2325 Chloride Sodium Chloride 500 ML BOLUS ONE 08/04 0500 DC 08/04 IV 08/04 0559 0510 Sodium Chloride 1,000 ML Q8H 07/31 1515 DC 08/03 IV 1001 Vancomycin HCl 1,250 MG Q12H 08/01 1600 DC 08/03 Dextrose/Water 250 ML IV 0423 Vital Signs & I&O Last 24 Hrs of Vitals and I&O: Vital Signs Date Time Temp Pulse Resp B/P Pulse O2 O2 Flow FiO2 Ox Delivery Rate 08/04 0800 96.5 113 20 124/70 98 Room Air 08/04 0800 96 Room Air 08/04 0401 97 Room Air 08/04 0000 96.1 112 16 98/42 99 Room Air 08/04 0000 99 Room Air 08/03 2326 112 96/48 08/03 2000 96 Room Air 08/03 1600 97.0 104 20 112/60 97 Room Air 08/03 1200 97.4 102 18 110/60 94 Room Air 08/03 1001 110 107/58 Intake & Output 08/04 1600 08/04 0800 08/04 0000 Intake Total 1770 1754 Output Total 117 360 Balance 1653 1394 Intake, IV 1530 1314 Intake, Oral 240 440 Number 0 Bowel Movements Output, 0 Drainage Output, Stool 0 Output, Urine 117 360 Exam Other Physical Findings: gen awake alert heent ncat, left IJ cvs s1, s2 lungs diminished bases abd diffuse tendereness ext no edema Results Last 24 Hrs of Lab Results: Laboratory Tests 08/04/16 0435: Anion Gap 9, Estimated GFR 25 L, BUN/Creatinine Ratio 26.8 H, Phosphorus 4.8 H, Magnesium 1.9, CBC w Diff MAN DIFF ORDERED, RBC 3.85 L, MCV 81.1, MCH 26.3 L, RDW 17.7 H, MPV 8.1, Gran % 95.6 H, Lymphocytes % 2.9 L, Monocytes % 0.4 L, Eosinophils % 1.0, Basophils % 0.1, Absolute Granulocytes 10.9 H, Segmented Neutrophils 84 H, Band Neutrophils 11 H, Absolute Lymphocytes 0.3 L, Lymphocytes 3 L, Monocytes 2, Absolute Monocytes 0 L, Absolute Eosinophils 0.1 , Absolute Basophils 0, Platelet Estimate ADEQUATE, Hypochromic-Microcytic 1+, Ovalocytes 1+, PUBS MCHC 32.5 L 08/03/16 1530: Anion Gap 6, Estimated GFR 31 L, Glucose 104 H, Calcium 7.6 L, Phosphorus 4.6 H, Magnesium 1.8, Total Bilirubin 0.2, AST 22, ALT 28, Albumin 1.7 L 08/03/16 1040: Urine Color YEL, Urine Clarity HAZY H, Urine pH 6.5, Ur Specific [place] 1.010, Urine Protein TRACE H, Urine Ketones NEG, Urine Nitrite POS H, Urine Bilirubin NEG, Urine Urobilinogen 0.2, Ur Leukocyte Esterase SMALL H, Ur Microscopic SEDIMENT EXAMINED, Urine RBC 3-5, Urine WBC 10-15 H, Ur Epithelial Cells RARE, Urine Bacteria MANY H, Urine Hemoglobin NEG, Urine Glucose NEG 08/03/16 1040: Urine Osmolality 350, Ur Random Creatinine 101.6, Ur Random Sodium 8 L, Ur Random Potassium 28.9, Fraction Sodium Excret 0.1 Impression/Plan Impression/Plan Impression/Plan: Impression 40 year old woman - hx of multiple collections/pus, usual pathogen is MSSA, pt now on vasopressors with hypotension consistent with septic shock secondary to purulent drained pelvic collection with staph aureus in sampled fluid - loculated right pleural effusion chronic - hyponatremia - BROOK[place]NN Plan - abg today - f/u nephrology - oxacillin - nephrology consultation - hyponatremia/brooklynn/hyperkalemia - adrenal pathology? - pain control - hemodynamic monitoring - off levophed - monitor mag, phos, k and replete as needed - finger stick monitoring - DVT prophylaxis - Dilaudid for pain, increased to 1mg q6h TTS 35 min transfer to
--- NOTE | 2016-08-04 10:08 | PN- Infect Dx ---
Subjective Subjective: Afebrile. Her blood pressure is improved now off Levophed. She continues to complain of pain in the right hip region as well as the right upper extremity. A Orta catheter was inserted yesterday with 1200 mL of urine obtained. Objective Last 24 Hrs of Vital Signs/I&O Vital Signs Date Time Temp Pulse Resp B/P Pulse O2 O2 Flow FiO2 Ox Delivery Rate 08/04 0800 96.5 113 20 124/70 98 Room Air 08/04 0800 96 Room Air 08/04 0401 97 Room Air 08/04 0000 96.1 112 16 98/42 99 Room Air 08/04 0000 99 Room Air 08/03 2326 112 96/48 08/03 2000 96 Room Air 08/03 1600 97.0 104 20 112/60 97 Room Air 08/03 1200 97.4 102 18 110/60 94 Room Air 08/03 1001 110 107/58 Intake & Output 08/04 1600 08/04 0800 03 0000 Intake Total 1770 1754 Output Total 117 360 Balance 1653 1394 Intake, IV 1530 1314 Intake, Oral 240 440 Number 0 Bowel Movements Output, 0 Drainage Output, Stool 0 Output, Urine 117 360 Physical Exam Other Physical Findings: She appears comfortable until she is examined, at which point she becomes quite anxious and tearful, limiting ability to examine her. Neck left IJ triple-lumen catheter with no inflammation at the site Lungs are clear Heart regular rhythm with no murmur Abdomen is soft, tender on the right lower quadrant, with positive bowel sounds; drainage catheter in place, with 40 mL output yesterday Back large unstageable decubitus reported on the right buttock Extremities tender on palpation over the right hip; swelling of the right upper extremity, with mild erythema, edema and exquisite tenderness over the right elbow, though with good range of motion; tender over the right shoulder with exam limited by pain Orta catheter is in place Results Last 24 Hours of Lab Results: Laboratory Tests 08/04 08/03 0435 1530 Chemistry Sodium (137 - 145 mmol/L) 127 L 124 L Potassium (3.5 - 5.1 mmol/L) 4.6 4.8 Chloride (98 - 107 mmol/L) 100 104 Carbon Dioxide (22 - 30 mmol/L) 17 L 14 L Anion Gap (5 - 16) 9 6 BUN (7 - 17 mg/dL) 59 H 56 H Creatinine (0.5 - 1.0 mg/dL) 2.2 H 1.8 H Estimated GFR (>60 ml/min) 25 L 31 L BUN/Creatinine Ratio (7 - 25 %) 26.8 H Glucose (65 - 99 mg/dL) 104 H Calcium (8.4 - 10.2 mg/dL) 7.6 L Phosphorus (2.5 - 4.5 mg/dL) 4.8 H 4.6 H Magnesium (1.6 - 2.3 mg/dL) 1.9 1.8 Total Bilirubin (0.2 - 1.3 mg/dL) 0.2 AST (14 - 36 U/L) 22 ALT (9 - 52 U/L) 28 Albumin (3.5 - 5.0 g/dL) 1.7 L Hematology CBC w Diff MAN DIFF ORDERED WBC (4.8 - 10.8 /CUMM) 11.4 H RBC (4.20 - 5.40 /CUMM) 3.85 L Hgb (12.0 - 16.0 G/DL) 10.1 L Hct (37 - 47 %) 31.2 L MCV (81.0 - 99.0 FL) 81.1 MCH (27.0 - 31.0 PG) 26.3 L RDW (11.5 - 14.5 %) 17.7 H Plt Count (130 - 400 /CUMM) 216 MPV (7.4 - 10.4 FL) 8.1 Gran % (42.2 - 75.2 %) 95.6 H Lymphocytes % (20.5 - 51.1 %) 2.9 L Monocytes % (1.7 - 9.3 %) 0.4 L Eosinophils % (0 - 5 %) 1.0 Basophils % (0.0 - 2.0 %) 0.1 Absolute Granulocytes (1.4 - 6.5 /CUMM) 10.9 H Segmented Neutrophils (42.2 - 75.2 %) 84 H Band Neutrophils (0.0 - 5.0 %) 11 H Absolute Lymphocytes (1.2 - 3.4 /CUMM) 0.3 L Lymphocytes (20.5 - 51.1 %) 3 L Monocytes (1.7 - 9.3 %) 2 Absolute Monocytes (0.10 - 0.60 /CUMM) 0 L Absolute Eosinophils (0.0 - 0.7 /CUMM) 0.1 Absolute Basophils (0.0 - 0.2 /CUMM) 0 Platelet Estimate (ADEQUATE) ADEQUATE Hypochromic-Microcytic 1+ Ovalocytes 1+ PUBS MCHC (33.0 - 37.0 G/DL) 32.5 L 08/03 08/03 1040 1040 Urines Urine Color (YEL,AMB,STR) YEL Urine Clarity (CLEAR) HAZY H Urine pH (5.0 - 8.0) 6.5 Ur Specific [place] (1.001 - 1.035) 1.010 Urine Protein (NEG,<30 MG/DL) TRACE H Urine Ketones (NEG) NEG Urine Nitrite (NEG) POS H Urine Bilirubin (NEG) NEG Urine Urobilinogen (0.1 - 1.0 EU/dl) 0.2 Ur Leukocyte Esterase (NEG) SMALL H Ur Microscopic SEDIMENT EXAMINED Urine RBC (0 - 5 /HPF) 3-5 Urine WBC (0 - 2 /HPF) 10-15 H Ur Epithelial Cells (NONE,FEW) RARE Urine Bacteria (NEG/NONE) MANY H Urine Hemoglobin (NEG) NEG Urine Osmolality (300 - 1000 MOSM/KG) 350 Ur Random Creatinine (mg/dL) 101.6 Ur Random Sodium (30 - 90 mmol/L) 8 L Ur Random Potassium (mmol/L) 28.9 Fraction Sodium Excret (<1% %) 0.1 Urine Glucose (N MG/DL) NEG Last 24 Hours of [place] Results: Pelvic abscess August 01 positive for Staph aureus sensitive to Oxacillin Blood cultures 2 August 01 negative Urine culture August 03 negative Recent Imaging Studies: Renal ultrasound August 03 no hydronephrosis or focal lesion Right elbow ultrasound August 03 reveals diffuse subcutaneous edema with a small hypoechoic area measuring 16 x 4 x 9 mm posterior to the elbow, possibly within the bursa Assessment/Plan Impression: Recurrent MSSA sepsis likely related to her previous episode, possibly secondary to seeding of the pubic rami fracture, with the development of a large pelvic abscess, which was drained 3 days ago, with culture positive for MSSA. She remains afebrile and white blood cell count has decreased, with decreased bands, now on Oxacillin. Of interest previous imaging 5 weeks prior to admission (and 9 days after her discharge and discontinuation of antibiotics) was negative for any evidence of this collection. Her right upper extremity inflammation may be secondary to her recent trauma, but the possibility of infection, involving the bursa for example, must be considered. Her right shoulder is difficult to evaluate secondary to her reported pain. Her scalp lesions have apparently drained on their own. Her renal failure is likely multifactorial, with sepsis, urinary retention, for which a Orta catheter was inserted, contrast from the CT scan and medications. Suggestion: 1. Orthopedic evaluation of her right upper extremity 2. Will need to pursue placement of a Pro-Line catheter 3. Continue Oxacillin
--- NOTE | 2016-08-04 11:15 | PN- Nephrology ---
Assessment/Plan Assessment: 1. [place]: no improvement despite relief of urinary retention; likely nonoliguric ATN post mult insults including sepsis, hypotension, IV contrast, & NSAIDs. No renal replacement indication 2. Met acid: improving w IV bicarb supplement 3. Hyponatremia: improving --> continue isotonic IV Suggestion: 1. Continue current IV 2. Change Orta cath Subjective Subjective: No SOB C/o Abd pain; no vomiting Orta leaking but nonoliguric Objective Vital Signs and I&Os Vital Signs Date Time Temp Pulse Resp B/P Pulse O2 O2 Flow FiO2 Ox Delivery Rate 08/04 0800 96.5 113 20 124/70 98 Room Air 08/04 0800 96 Room Air 08/04 0401 97 Room Air 08/04 0000 96.1 112 16 98/42 99 Room Air 08/04 0000 99 Room Air 08/03 2326 112 96/48 08/03 2000 96 Room Air 08/03 1600 97.0 104 20 112/60 97 Room Air 08/03 1200 97.4 102 18 110/60 94 Room Air Intake & Output 08/04 1600 08/04 0400 08/03 1600 08/03 0400 08/02 1600 08/02 0400 Intake Total 1770 1754 3488 1728.3 4876.6 3766 Output Total 014 962 4124 10 120 460 Balance 1653 1394 2048 1718.3 4756.6 3306 Intake, IV 1530 1314 2608 958.3 3196.6 3206 Intake, Oral 240 440 039 120 3655 560 Number 0 0 0 0 Bowel Movements Output, 0 40 10 20 460 Drainage Output, 100 Emesis Output, Stool 0 Output, Urine 803 014 8705 Physical Exam General Appearance: well developed/nourished, no apparent distress, alert Head: atraumatic, normal appearance Ears, Nose, Throat: normal ENT inspection Neck: normal inspection Respiratory: normal breath sounds, no respiratory distress, lungs clear Cardiovascular: regular rate/rhythm, no rub Abdomen: soft, tender diffusely lowe rabd; drain mid lower abd in place Extremities: swelling Neurologic/Psychiatric: awake, alert, 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 nuclear II-XII nml as tested Skin: intact, normal color Current Medications: Current Medications Sig/Shahla Start time Last Medication Dose Route Stop Time Status Admin Acetaminophen 650 MG Q4 HRS NEEDED PRN 07/31 0800 AC 08/02 PO 0911 Albuterol Sulfate 2 PUF Q4P PRN 07/30 2200 AC INH Collagenase 1 DEMETRA DAILY 08/04 1000 AC TOP Diclofenac Sodium 1 DEMETRA TID PRN 07/30 1145 AC 08/01 TOP 1044 Diphenhydramine HCl 75 MG Q6P PRN 07/31 1100 AC 08/04 PO 0610 Docusate Sodium 100 MG DAILY 07/31 1000 AC 08/03 PO 1001 Enoxaparin Sodium 40 MG DAILY 08/02 1000 AC 08/04 SC 0955 Hydromorphone HCl 0.2 MG ONCE ONE 08/04 0830 DC 08/04 IV 08/04 0831 0827 Hydromorphone HCl 0.2 MG ONCE ONE 08/03 2315 DC 08/03 IV 08/03 2316 2325 Hydromorphone HCl 1 MG Q6P PRN 08/03 1030 AC 08/04 IV 0446 Insulin Aspart 0 TIDAC/HS 08/01 0800 AC 08/03 SC 1221 Insulin Detemir 20 UNITS ONCE ONE 08/03 2245 DC 08/03 SC 08/03 2300 2324 Insulin Detemir 60 UNITS BID 07/28 2200 AC 08/03 SC 1000 Lidocaine 1 PAT DAILY 07/28 1800 AC 07/28 EXT 2004 Miconazole Nitrate 1 DEMETRA AT BEDTIME 07/29 0130 AC 08/01 VAG 2318 Oxacillin Sodium 2,000 MG Q4 08/03 1400 AC 08/04 Sodium Chloride 100 ML IV 0949 Oxymetazoline HCl 1 SPRAY Q12 08/03 1518 AC ANNETTE 08/05 2201 Pregabalin 150 MG BID 07/28 2200 AC 08/04 PO 0950 Propranolol HCl 20 MG BID 07/28 2200 AC 08/01 PO 0918 Senna/Docusate Sodium 2 TAB DAILY 07/31 1000 AC 08/04 PO 0953 Simethicone 80 MG Q6P PRN 08/03 0830 AC 08/03 PO 1001 Sodium Bicarbonate 150 MEQ Q10H 08/04 1845 DC Dextrose/Sodium 1,000 ML IV Chloride Sodium Bicarbonate 75 MEQ Q6H 08/04 0930 AC 08/04 Dextrose/Sodium 1,000 ML IV 0950 Chloride Sodium Bicarbonate 75 MEQ Q10H 08/03 1245 DC 08/03 Dextrose/Sodium 1,000 ML IV 2325 Chloride Sodium Chloride 500 ML BOLUS ONE 08/04 0500 DC 08/04 IV 08/04 0559 0510 Sodium Chloride 1,000 ML Q8H 07/31 1515 DC 08/03 IV 1001 Results Pertinent Lab Results: Laboratory Tests 08/04 08/04 08/03 1008 0435 1530 Blood Gas pH (7.35 - 7.45 PH) 7.29 *L pCO2 (35 - 45 TORR) 32 L pO2 (80 - 100 TORR) 72 L HCO3 (21 - 28 MEQ/L) 15 L ABG O2 Sat (Measured) (>96.0 %) 94.0 L P-50 (Temp Corrected) N Carboxyhemoglobin (1.5 - 5.0 %) 0.4 L O2 Concentration % .21 Temperature (97.0 - 100.0 FARH) 96.5 L O2 Delivery Method RA Chemistry Sodium (137 - 145 mmol/L) 127 L 124 L Potassium (3.5 - 5.1 mmol/L) 4.6 4.8 Chloride (98 - 107 mmol/L) 100 104 Carbon Dioxide (22 - 30 mmol/L) 17 L 14 L Anion Gap (5 - 16) 9 6 BUN (7 - 17 mg/dL) 59 H 56 H Creatinine (0.5 - 1.0 mg/dL) 2.2 H 1.8 H Estimated GFR (>60 ml/min) 25 L 31 L BUN/Creatinine Ratio (7 - 25 %) 26.8 H Glucose (65 - 99 mg/dL) 104 H Calcium (8.4 - 10.2 mg/dL) 7.6 L Phosphorus (2.5 - 4.5 mg/dL) 4.8 H 4.6 H Magnesium (1.6 - 2.3 mg/dL) 1.9 1.8 Total Bilirubin (0.2 - 1.3 mg/dL) 0.2 AST (14 - 36 U/L) 22 ALT (9 - 52 U/L) 28 Albumin (3.5 - 5.0 g/dL) 1.7 L Hematology CBC w Diff MAN DIFF ORDERED WBC (4.8 - 10.8 /CUMM) 11.4 H RBC (4.20 - 5.40 /CUMM) 3.85 L Hgb (12.0 - 16.0 G/DL) 10.1 L Hct (37 - 47 %) 31.2 L MCV (81.0 - 99.0 FL) 81.1 MCH (27.0 - 31.0 PG) 26.3 L RDW (11.5 - 14.5 %) 17.7 H Plt Count (130 - 400 /CUMM) 216 MPV (7.4 - 10.4 FL) 8.1 Gran % (42.2 - 75.2 %) 95.6 H Lymphocytes % (20.5 - 51.1 %) 2.9 L Monocytes % (1.7 - 9.3 %) 0.4 L Eosinophils % (0 - 5 %) 1.0 Basophils % (0.0 - 2.0 %) 0.1 Absolute Granulocytes (1.4 - 6.5 /CUMM) 10.9 H Segmented Neutrophils (42.2 - 75.2 %) 84 H Band Neutrophils (0.0 - 5.0 %) 11 H Absolute Lymphocytes (1.2 - 3.4 /CUMM) 0.3 L Lymphocytes (20.5 - 51.1 %) 3 L Monocytes (1.7 - 9.3 %) 2 Absolute Monocytes (0.10 - 0.60 /CUMM) 0 L Absolute Eosinophils (0.0 - 0.7 /CUMM) 0.1 Absolute Basophils (0.0 - 0.2 /CUMM) 0 Platelet Estimate (ADEQUATE) ADEQUATE Hypochromic-Microcytic 1+ Ovalocytes 1+ PUBS MCHC (33.0 - 37.0 G/DL) 32.5 L Miscellaneous Phlebotomy Draw Site LEFT RADIAL 08/03 08/03 1040 1040 Urines Urine Color (YEL,AMB,STR) YEL Urine Clarity (CLEAR) HAZY H Urine pH (5.0 - 8.0) 6.5 Ur Specific [place] (1.001 - 1.035) 1.010 Urine Protein (NEG,<30 MG/DL) TRACE H Urine Ketones (NEG) NEG Urine Nitrite (NEG) POS H Urine Bilirubin (NEG) NEG Urine Urobilinogen (0.1 - 1.0 EU/dl) 0.2 Ur Leukocyte Esterase (NEG) SMALL H Ur Microscopic SEDIMENT EXAMINED Urine RBC (0 - 5 /HPF) 3-5 Urine WBC (0 - 2 /HPF) 10-15 H Ur Epithelial Cells (NONE,FEW) RARE Urine Bacteria (NEG/NONE) MANY H Urine Hemoglobin (NEG) NEG Urine Osmolality (300 - 1000 MOSM/KG) 350 Ur Random Creatinine (mg/dL) 101.6 Ur Random Sodium (30 - 90 mmol/L) 8 L Ur Random Potassium (mmol/L) 28.9 Fraction Sodium Excret (<1% %) 0.1 Urine Glucose (N MG/DL) NEG 08/03 08/02 9284 0416 Chemistry Sodium (137 - 145 mmol/L) 121 L 130 L Potassium (3.5 - 5.1 mmol/L) 5.6 H 5.1 Chloride (98 - 107 mmol/L) 98 103 Carbon Dioxide (22 - 30 mmol/L) 16 L 17 L Anion Gap (5 - 16) 6 9 BUN (7 - 17 mg/dL) 56 H 46 H Creatinine (0.5 - 1.0 mg/dL) 1.9 H 1.5 H Estimated GFR (>60 ml/min) 29 L 39 L BUN/Creatinine Ratio (7 - 25 %) 30.7 H Glucose (65 - 99 mg/dL) 190 H Serum Osmolality (285 - 295 MOSM/KG) 290 Lactic Acid (0.7 - 2.1 mmol/L) 3.1 H Calcium (8.4 - 10.2 mg/dL) 8.0 L Phosphorus (2.5 - 4.5 mg/dL) 5.0 H Magnesium (1.6 - 2.3 mg/dL) 1.9 Total Bilirubin (0.2 - 1.3 mg/dL) 0.2 AST (14 - 36 U/L) 24 ALT (9 - 52 U/L) 34 Albumin (3.5 - 5.0 g/dL) 1.8 L Cortisol AM Sample (4.46 - 22.7 ug/dL) 21.1 Hematology CBC w Diff MAN DIFF ORDERED NO MAN DIFF REQ WBC (4.8 - 10.8 /CUMM) 11.4 H 12.9 H RBC (4.20 - 5.40 /CUMM) 3.91 L 3.78 L Hgb (12.0 - 16.0 G/DL) 10.3 L 10.1 L Hct (37 - 47 %) 31.6 L 30.8 L MCV (81.0 - 99.0 FL) 80.9 L 81.4 MCH (27.0 - 31.0 PG) 26.4 L 26.6 L RDW (11.5 - 14.5 %) 17.4 H 17.7 H Plt Count (130 - 400 /CUMM) 199 210 MPV (7.4 - 10.4 FL) 8.3 8.6 Gran % (42.2 - 75.2 %) 95.5 H 94.6 H Lymphocytes % (20.5 - 51.1 %) 3.1 L 3.5 L Monocytes % (1.7 - 9.3 %) 0.6 L 0.7 L Eosinophils % (0 - 5 %) 0.7 1.1 Basophils % (0.0 - 2.0 %) 0.1 0.1 Absolute Granulocytes (1.4 - 6.5 /CUMM) 10.9 H 12.2 H Segmented Neutrophils (42.2 - 75.2 %) 93 H Band Neutrophils (0.0 - 5.0 %) 6 H Absolute Lymphocytes (1.2 - 3.4 /CUMM) 0.4 L 0.5 L Lymphocytes (20.5 - 51.1 %) 1 L Absolute Monocytes (0.10 - 0.60 /CUMM) 0.1 L 0.1 L Absolute Eosinophils (0.0 - 0.7 /CUMM) 0.1 0.1 Absolute Basophils (0.0 - 0.2 /CUMM) 0 0 Platelet Estimate (ADEQUATE) ADEQUATE Hypochromic-Microcytic 1+ Poikilocytosis FEW Anisocytosis 1+ Microcytic Cells 1+ Ovalocytes FEW PUBS MCHC (33.0 - 37.0 G/DL) 32.6 L 32.7 L Other Body Source Fld Total RBCs Counted (%) 100 Toxicology Random Vancomycin (ug/ml) 31.8 18 18 08/02 0253 0014 0008 Chemistry Sodium (137 - 145 mmol/L) 127 L Potassium (3.5 - 5.1 mmol/L) 4.6 Chloride (98 - 107 mmol/L) 103 Carbon Dioxide (22 - 30 mmol/L) 18 L Anion Gap (5 - 16) 6 BUN (7 - 17 mg/dL) 44 H Creatinine (0.5 - 1.0 mg/dL) 1.4 H Estimated GFR (>60 ml/min) 42 L Glucose (65 - 99 mg/dL) 99 Lactic Acid (0.7 - 2.1 mmol/L) Cancelled 3.5 H Calcium (8.4 - 10.2 mg/dL) 7.8 L Phosphorus (2.5 - 4.5 mg/dL) 3.9 Magnesium (1.6 - 2.3 mg/dL) 1.6 Total Bilirubin (0.2 - 1.3 mg/dL) 0.2 AST (14 - 36 U/L) 16 ALT (9 - 52 U/L) 24 Albumin (3.5 - 5.0 g/dL) 1.7 L Hematology CBC w Diff MAN DIFF ORDERED WBC (4.8 - 10.8 /CUMM) 11.4 H RBC (4.20 - 5.40 /CUMM) 3.62 L Hgb (12.0 - 16.0 G/DL) 9.6 L Hct (37 - 47 %) 29.5 L MCV (81.0 - 99.0 FL) 81.5 MCH (27.0 - 31.0 PG) 26.6 L RDW (11.5 - 14.5 %) 17.4 H Plt Count (130 - 400 /CUMM) 213 MPV (7.4 - 10.4 FL) 8.9 Gran % (42.2 - 75.2 %) 94.4 H Lymphocytes % (20.5 - 51.1 %) 4.1 L Monocytes % (1.7 - 9.3 %) 0.5 L Eosinophils % (0 - 5 %) 1.0 Basophils % (0.0 - 2.0 %) 0 L Absolute Granulocytes (1.4 - 6.5 /CUMM) 10.7 H Segmented Neutrophils (42.2 - 75.2 %) 58 Band Neutrophils (0.0 - 5.0 %) 30 H Absolute Lymphocytes (1.2 - 3.4 /CUMM) 0.5 L Lymphocytes (20.5 - 51.1 %) 8 L Monocytes (1.7 - 9.3 %) 1 L Absolute Monocytes (0.10 - 0.60 /CUMM) 0.1 L Eosinophils (0 - 5.0 %) 2 Absolute Eosinophils (0.0 - 0.7 /CUMM) 0.1 Absolute Basophils (0.0 - 0.2 /CUMM) 0 Metamyelocytes (0.0 - 1.0 %) 1 Platelet Estimate (ADEQUATE) ADEQUATE Polychromasia 1+ Hypochromic-Microcytic 1+ Anisocytosis 1+ Microcytic Cells 1+ Macrocytic Cells 1+ PUBS MCHC (33.0 - 37.0 G/DL) 32.7 L Imaging/Other Studies: Renal US: Imaging of the kidneys demonstrate normal appearance of both kidneys. Right kidney measures approximately 11 cm. Left kidney measures approximately 12.1 cm. No hydronephrosis, mass, or calculus. No perinephric abnormality. The bladder is relatively decompressed CT w IV contrast: 1. 1. Loculated right pleural effusion has decreased in size compared to 06/12/2016. The loculated fluid has relatively high attenuation and there is persistent thickening of the visceral and parietal pleura. This could represent a decreasing hemothorax or pyothorax. The right lower lobe atelectasis/consolidation remains similar in appearance compared to 06/12/2016. 2. Complex, multiloculated fluid collection in the right pelvis (possibly an infected collection/abscess) exerts mass effect upon the bladder and has a component that travels along the right obturator internus muscle toward the posterior hip. Compared to 07/27/2016, there is a new, small amount of fluid in the right greater trochanteric bursa, suggestive of bursitis. Also, there is a new, small amount of fluid that tracks superiorly from this level between the gluteus muscles. Other findings, as noted above
--- NOTE | 2016-08-04 12:00 | NUR ---
Patient is alert and oriented, periods where she hallucinates and becomes confused but is easily reoriented. Can follow commands and move all extremities. Can be uncooperative and will refuse certain care. ST on tele monitor, HR= 100-120's, SBP: 90-100's, pulses are palpable. BP meds were held per Dr. Rose Sun's order for a BP of 92/60 prior to medication administration. CVP this morning was 9. On room air, lungs are clear, O2 sats 94-96%. Lungs are clear and diminished at the bases. Abdomen is soft with + bowel sounds. A RLQ percuteous drain is in place with thick harrell drainage. Carb 3 diet- finger stick this morning was 64 and pt was given orange juice- levemir held per order and pts blood sugar increased to 155 at 0900. Orta was repositioned and 3mls of additional saline was added since catheter was noted to be leaking. At 1100 pt was medicated with IV dilaudid for turning and for wound care. R. buttock remains with an unstageable black necrotic pressure injury and santyl was applied per order. Periwound is macerated with areas of redness and excoration- Left buttock presents with a cluster of stage 2 pressure injuries. 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 Right inner and posterior thigh also presents macerated- A wound is noted the top of her head which patient states is related from her " bumping her head at home" scant amounts of bloody drainage is noted and area is soft. Patient educated multiple times on the importance of wound care and turning and repositioning however she does continue to refuse at times. Bed was turned on rotation mode. LUE is noted to be swollen and red- she can move this extremity however c/o pain 10/10. She refused the MRI since she stated that she will be unable to move her arm or shoulder for the procedure and this MRI requires arm to be lifted above her head. She was requesting to be sedated for exam MRI and Dr. Rose Sun was notified of this. MRI was cancelled at this time and ortho to be in to evaluate. LIJ TLC in place and dressing was reinforced. Blood return is noted on all 3 ports however is positional. Medicated with IV dilaudid for pain. Receiving IV abx per order. Bi-carb gtt continues to infuse at 150mls/hr. Vitals currently stable and pt is now a GEN MED hold. Plan is for proline placement this and this was correlated with anesthesia. Will continue to closely monitor patient.
[2016-08-04 16:00] VITALS: BP 110/80
--- NOTE | 2016-08-04 20:37 | NUR ---
PT C/O SEVERE PAIN "ALL OVER", LAST HAD DILAUDID AT 1730, CAN ONLY HAVE IT Q6. DR VALENZUELA NOTIFIED, NEW ORDER OBTAINED FOR ONE TIME IV DILAUDID 0.2MG. DILAUDID ADMINISTERED AND VOLTARAEN GEL APPLIED TO R HIP REQUESTED. WILL CONTINUE TO MONITOR.
[2016-08-04 22:15] VITALS: BP 122/60
--- NOTE | 2016-08-04 22:33 | Event Note ---
Event Note Event Note: At 10:30 PM rapid response was called bc pt was SOB. Satting 93% RA with sinus tachycardia. BP, RR and temp WNL. Pt AO X3, neuro exam normal. Upon auscultation pt was wheezy and tight. PRN albuteron was on med list but not administered. EKG ordered. TRC ordered. If pt does not improve will start steroids and consider ABG.
[2016-08-04 22:37] VITALS: BP 132/58
[2016-08-04 23:30] VITALS: BP 108/60
[2016-08-05] VITALS (9 sets, daily range): BP systolic 73–112; BP diastolic 33–61
--- NOTE | 2016-08-05 05:21 | NUR ---
0400 PT INC OF LARGE AMOUNTS OF URINE WITH ELIAS IN PLACE. ELIAS CATHETER CHECKED AND REPOSITIONED. DR Marquise TODD NOTIFIED OF THIS INC EPISODE. WILL CONTINUE TO MONITOR.
--- NOTE | 2016-08-05 07:31 | PN- Housestaff ---
HIRAM FARFAN,DERECK 08/05/16 0731: Subjective Follow-up For: Pelvic abscess Right shoulder pain Right elbow swelling/cellulitis Acute kidney injury Hyponatremia Hypotension Subjective: Patient seen and examined. She is seen lying upright in bed resting comfortably. She appears to be in mild respiratory distress. She admits to severe pain throughout her body, but localized to her right arm and pelvis. She also admits that her breathing is "not great" but is otherwise not concerned about it and is asking for her pain medications. She is tearful, apathetic, and requesting an increase to her narcotic pain medications. Otherwise she denies any fever, chills, headache, chest pain, palpitations, cough, nausea, vomiting, diarrhea. Overnight a rapid response was called for patient due to an apparent respiratory distress. Signout from demonstrates that patient was saturating 93% on room air however was audibly wheezing with a pulmonary exam demonstrating decreased airflow and wheezing. Patient was given breathing treatments that minimally resolved her symptoms. Review of Systems Constitutional: Reports: see HPI. Objective Last 24 Hrs of Vital Signs/I&O Vital Signs Date Time Temp Pulse Resp B/P Pulse O2 O2 Flow FiO2 Ox Delivery Rate 08/05 0825 9728.0 96 20 93/52 95 Nasal 2.0L Cannula 08/05 0524 98.4 94 24 105/55 94 Nasal 3.0L Cannula 08/05 0400 88/58 08/05 0327 97.6 92 24 73/55 94 Nasal 3.0L Cannula 08/05 0154 98.3 100 22 90/60 94 Nasal 3.0L Cannula 08/05 0000 94 Nasal 3.0L Cannula 08/04 2330 102 16 108/60 94 Nasal 3.0L Cannula 08/04 2244 130 122/60 08/04 2237 98.2 133 18 132/58 87 Room Air 08/04 2215 130 18 122/60 85 Room Air 08/04 1600 96.5 72 18 110/80 97 Room Air 08/04 1120 Room Air Room Air 08/04 1109 117 92/64 Intake & Output 08/05 1600 08/05 0800 08/05 0000 Intake Total 480 1324 Output Total 50 330 Balance 430 994 Intake, IV 844 Intake, Oral 480 480 Number 0 Bowel Movements Output, 30 Drainage Output, Urine 50 300 Physical Exam General Appearance: Alert, Oriented X3, Mild Distress Other Physical Findings: General -well-developed, well-nourished obese woman in mild respiratory distress HEENT - NCAT, PERRL, EOMI, anicteric sclera, multiple recently drained wounds on her scalp Cardio - S1, S2 w/o murmurs/gallops/rubs Resp -bibasilar wheezing with decreased air flow, use of accessory respiratory muscle, nasal cannula in place GI - soft, obese, nontender, nondistended, bowel sounds present Neuro - Awake and alert, CN II - XII grossly intact Extremities -1+ bilateral lower trimming edema, no cyanosis/clubbing, normal pulses, right upper extremity has limited range of motion secondary to pain without any obvious deformity, multiple wounds, right elbow has a large area of erythematous induration without any obvious drainage or wounds with mild fluctuance/tenderness to the elbow Current Medications: Current Medications Sig/Shahla Start time Last Medication Dose Route Stop Time Status Admin Acetaminophen 650 MG Q4 HRS NEEDED PRN 07/31 0800 AC 08/05 PO 0859 Albuterol Sulfate 3 ML ONCE PRN 08/04 2230 AC INH Albuterol Sulfate 2 PUF Q4P PRN 07/30 2200 AC 08/05 INH 0249 Collagenase 1 DEMETRA DAILY 08/04 1000 AC 08/04 TOP 1130 Diclofenac Sodium 1 DEMETRA TID PRN 07/30 1145 AC 08/04 TOP 2024 Diphenhydramine HCl 75 MG .STK-MED ONE 08/04 1358 DC PO 08/04 1359 Diphenhydramine HCl 50 MG .STK-MED ONE 08/04 1356 DC IM 08/04 1357 Diphenhydramine HCl 75 MG Q6P PRN 07/31 1100 AC 08/04 PO 1401 Docusate Sodium 100 MG DAILY 07/31 1000 AC 08/03 PO 1001 Enoxaparin Sodium 40 MG DAILY 08/02 1000 AC 08/04 SC 0955 Hydromorphone HCl 0.2 MG ONCE ONE 08/04 2014 DC 08/04 IV 08/04 2016 2017 Hydromorphone HCl 1 MG Q6P PRN 08/03 1030 AC 08/04 IV 2354 Insulin Aspart 0 TIDAC/HS 08/01 0800 AC 08/04 SC 1727 Insulin Detemir 20 UNITS ONCE ONE 08/04 2245 DC 08/04 SC 08/04 2246 2250 Insulin Detemir 60 UNITS BID 07/28 2200 AC 08/03 SC 1000 Lidocaine 1 PAT DAILY 07/28 1800 AC 07/28 EXT 2004 Miconazole Nitrate 1 DEMETRA AT BEDTIME 07/29 0130 AC 08/01 VAG 2318 Oxacillin Sodium 2,000 MG Q4 08/03 1400 AC 08/05 Sodium Chloride 100 ML IV 0619 Oxymetazoline HCl 1 SPRAY Q12 08/03 1518 AC 08/04 ANNETTE 08/05 2200 223 Pregabalin 150 MG BID 07/28 2200 AC 08/04 PO 2239 Propranolol HCl 10 MG BID 08/05 1000 AC PO Propranolol HCl 20 MG BID 07/28 2200 DC 08/04 PO 2244 Quetiapine Fumarate 100 MG AT BEDTIME PRN 08/05 220 AC PO Senna/Docusate Sodium 2 TAB DAILY 07/31 1000 AC 08/04 PO 0953 Sertraline HCl 25 MG DAILY 08/05 1000 AC PO Simethicone 80 MG Q6P PRN 08/03 0830 AC 08/03 PO 1001 Sodium Bicarbonate 150 MEQ Q10H 08/04 1845 DC Dextrose/Sodium 1,000 ML IV Chloride Sodium Bicarbonate 75 MEQ Q6H 08/04 0930 AC 08/05 Dextrose/Sodium 1,000 ML IV 0730 Chloride Sodium Chloride 1,000 ML BOLUS ONE 08/05 0400 DC 08/05 IV 08/05 0559 0413 Sodium Chloride 250 ML BOLUS ONE 08/05 0200 DC 08/05 IV 08/05 0259 0208 Last 24 Hrs of Lab/Haris Results Last 24 Hrs of Labs/Mics: Laboratory Tests 08/05/16 0630: Anion Gap 6, Estimated GFR 24 L, BUN/Creatinine Ratio 26.1 H, Phosphorus 5.9 H, Magnesium 1.8, CBC w Diff MAN DIFF ORDERED, RBC 3.60 L, MCV 80.9 L, MCH 26.3 L, RDW 17.9 H, MPV 8.4, Gran % 92.8 H, Lymphocytes % 5.0 L, Monocytes % 1.1 L, Eosinophils % 1.0, Basophils % 0.1, Absolute Granulocytes 8.8 H, Segmented Neutrophils 79 H, Band Neutrophils 14 H, Absolute Lymphocytes 0.5 L , Lymphocytes 4 L, Monocytes 1 L, Absolute Monocytes 0.1 L, Eosinophils 2, Absolute Eosinophils 0.1, Absolute Basophils 0, Platelet Estimate ADEQUATE, Anisocytosis 1+, PUBS MCHC 32.4 L Assessment/Plan Assessment: She was transferred from the intensive care unit to the general medicine floor for further evaluation after her clinical condition was stabilized. She was evaluated by orthopedics for her right shoulder complaints for which they recommended advanced imaging of the extremity to further characterize any occult pathology. She is currently declining any MRI imaging of the extremity unless she can be "knocked out". Her right shoulder has limited range of motion secondary to pain, however her right elbow is mobile but demonstrates a new cellulitis with an associated swelling of the joint. Her blood pressure is still labile for which her propranolol medication dose was reduced. She still maintained on a high dose of intravenous narcotic medications, but admits that her pain is still uncontrolled and is requesting more medications. Chest x-ray obtained this morning for her overnight event of respiratory distress insurance findings suggestive of multiple new areas of opacity in both lungs possibly consistent with sequelae of a multifocal infiltrative process. She is still maintained on intravenous oxacillin and remains afebrile without leukocytosis but with persistent bandemia. Patient is to be placed with a pro-line catheter on and coordination with anesthesia for which she will be made nothing by mouth overnight and Lovenox held that day. Patient was found to be hypotensive to 74/38 this afternoon after receiving a dose of Dilaudid. Given patient's fluid resection she was bolused with 250 mL of normal saline for which her blood pressure improved to 80/44. For hypotension in the setting of infection unresolved sepsis patient was transferred to the ICU for closer monitoring and hemodynamic stabilization and possible utilization of vasopressors. Pelvic abscess / Pelvic Hematoma CT abdomen/pelvis upon initial evaluation demonstrated a right pelvic collection with mass effect upon the bladder most likely maintenance representative of a hematoma. For further evaluation of persistent bandemia and no obvious site of infection a CT abdomen/pelvis with intravenous contrast was obtained that demonstrated a complex multiloculated fluid collection in the right pelvis in addition to the right hematoma. Interventional radiology placed several drains and reportedly removed 300 mL of purulent material from her pelvis. -Gen. medicine -Warm compresses -Oxacillin 2 g IV every 4 hours -Dilaudid 1 g IV every 6 hours as needed for severe pain -Physical therapy/occupational therapy evaluation -Infectious disease consult Right upper extremity pain/right elbow cellulitis Radiographs of the right upper extremity did not demonstrate any acute process. Orthopedic consult placed recommended advanced imaging of the right upper extremity for further characterization of any occult pathology. Patient is currently declining any MRI imaging unless she is "knocked out". -Obtain MRI right upper extremity as outpatient -Orthopedic consult following Respiratory distress with right pleural effusion/possible pneumonia Rapid response was called after transfer to the general floor for respiratory distress where patient was saturating 93% on room air however was audibly wheezing with pulmonary examination significant for decreased airflow in bibasilar wheezing. Chest x-ray obtained demonstrated multiple new areas of opacity in both lungs which may be consistent with sequelae of multifocal infiltrative \\process. -TRC with albuterol/ipratropium when necessary -Supplemental oxygen, goal >92%, taper as tolerated -Incentive spirometry -Pulmonology consult Septic Shock / Elevated Lactic Acid: Resolved Patient met criteria for severe sepsis upon admission. She subsequently developed septic shock for with she was transferred to ICU. During the ICU stay she was given aggressive intravenous fluid resuscitation and vasopressors. Patient subsequently developed end organ damage with acute kidney injury secondary to hypotension. -Monitor vital signs for hemodynamic instability -Triple-lumen catheter in place Hyponatremia Corrected sodium within normal limits. -BEP every 12 hours Acute kidney injury /metabolic acidosis / hyponatremia Patient received intravenous contrast for CT chest and suffered from hypotension /sepsis all of which most likely predispose patient to developing. Renal ultrasound demonstrated normal appearance of both kidneys without any hydronephrosis, mass, or calculus. -Avoid nephrotoxic medications such as NSAIDs -Fluid restriction: 800 mL from all sources -Hold IVF for fluid overload -Strict in's and outs -Orta catheter -D5 1/2NS + 75 mEq NaHCO3 discontinued -NaHCO3 1300mg PO TID started -Nephrology consult -Potassium restriction in diet -Daily BEP Positive urine culture for Klebsiella Patient denies any urinary frequency/urgency/burning pain. She has been incontinent secondary to refusing to ambulate to the restroom. She denies any saddle anesthia or fecal incontinence. -Follow off antibiotics for UTI Anxiety/Depression -Propranolol decreased to 10 mg by mouth twice a day -Zoloft 25 mg by mouth daily -Seroquel 100 mg by mouth daily at bedtime -Psych consult Insulin Dependent Diabetes Mellitus -Accuchecks TIDAC/HS -Hold oral hypoglycemics -Novolog Sliding Scale insulin -Levemir 60 units SC twice a day Unstageable right buttock wound-Local wound care as per wound care assessment Peripheral Neuropathy- Lyrica 150mg PO BID Pain Plan-acetaminophen/Dilaudid/lidocaine patch Bowel regimen-Senokot/Colace Diet-diabetic diet with 2 g potassium restriction DVT PPx- Lovenox Code Status- FULL CODE Problem List: 1. Cellulitis 2. Acute kidney injury Pain Ratin Pain Location: Generalized Right upper extremity Pelvis Pain Goal: Pain 7 or less Pain Plan: As noted in plan Tomorrow's Labs & Rationales: CBC - sepsis/cellulitis BEP - BROOKLYNN KARIN CARPENTER MD 08/05/162054: Attending MD Review Statement Attending Statement Attending MD Statement: examined this patient, discuss w/resident/PA/INTERNET MARKETING ANALYST, agreed w/resident/PA/INTERNET MARKETING ANALYST, reviewed EMR data (avail), discussed with nursing, reviewed images, amended to note Attending Assessment/Plan: The patient was seen and discussed with house staff. BP has been low in 70-80 sys range and increased respiratory rate. RUE appears warm and erythematous which is new since admission. Concern is that cellulitis is not responding to IV oxacillin. Patient now on fluid restriction per Nephrology and majority of allowed fluid is being given with oxacillin leaving only small amount of po intake of fluid. Discussed possibility of decreasing amount of fluid with each oxacillin dose with pharmacy and they were unable to do this. Also discussed with ID possibility of changing antibiotic that would require less frequent dosing and decrease fluid. Orthopedics wanted MRI of RUE, however patient would need anesthesia for this which is difficult in MRI trailer. Spoke with Radiology and they suggested repeating bedside US of RUE to see if any pockets of fluid that may be drained and cultured. Due to hypotension and increased respiratory rate the patient was transferred to ICU for closer observation. May require pressors. Dr. Brown approves of transfer for closer observation. Discussed with ICU team. Propranolol discontinued and will attempt to minimize Dilaudid.
[2016-08-05 08:08] LABS: ABSOLUTE BASOPHIL COUNT 0 /CUMM (0.0-0.2); ABSOLUTE EOSINOPHIL COUNT 0.1 /CUMM (0.0-0.7); ABSOLUTE GRANULOCYTE CT 8.8 /CUMM (1.4-6.5); ABSOLUTE LYMPH COUNT 0.5 /CUMM (1.2-3.4); ABSOLUTE MONOCYTE COUNT 0.1 /CUMM (0.10-0.60); BASOPHIL % 0.1 % (0.0-2.0); GRANULOCYTE % 92.8 % (42.2-75.2); HEMATOCRIT 29.2 % (37-47); MEAN CORPUSCULAR HGB 26.3 PG (27.0-31.0); MEAN CORPUSCULAR HGB CONC 32.4 G/DL (33.0-37.0); MEAN CORPUSCULAR VOLUME 80.9 FL (81.0-99.0); MEAN PLATELET VOLUME 8.4 FL (7.4-10.4); PLATELET COUNT 201 /CUMM (130-400); RBC DISTRIBUTION WIDTH 17.9 % (11.5-14.5); WHITE BLOOD CELL COUNT 9.5 /CUMM (4.8-10.8)
--- NOTE | 2016-08-05 08:15 | RADIOLOGY REPORT ---
EXAMINATION: XR PORTABLE CHEST CLINICAL INFORMATION: Shortness of breath and wheezing. Assess for pulmonary disease. COMPARISON: CT scan of the chest 08/01/2016 and chest x-ray 06/12/2016. TECHNIQUE: Portable AP 75 degree semierect view of the chest was obtained. FINDINGS: The lungs are hypoexpanded bilaterally. There are multiple patchy areas of density in the left and right lungs, most prominent in the right midzone, new compared to the prior studies. There is a right pleural effusion and relatively dense opacification at the right base. The cardiac silhouette is normal in size. No pneumothorax is demonstrated. The study redemonstrates the left internal jugular central venous catheter with the tip at the cavoatrial junction. There are no acute osseous findings. IMPRESSION: 1. There are multiple new areas of opacity in both lungs, which may be consistent with sequelae of multifocal infiltrative process. 2. There is persistent opacity at the right base consistent with a pleural effusion and underlying consolidation.
--- NOTE | 2016-08-05 08:38 | Cons- Orthopedic ---
General Information and HPI Consulting Request Date of Consult: 08/04/16 Requested By: JERICHO RAMON MD Reason for Consult: Right arm pain and swelling Source of Information: patient, old records History of Present Illness: 40yo F admitted on 07/27/2016 after a fall. Per patient, she was walking out of her home and fell down the stairs, injuring her right arm and right hip. She was found to have an intrapelvis abscess that was drained by IR on 08/01/2016; she still has drains in place producing grayish harrell material. Cultures grew MSSA and she is currently on Oxacillin. No positive blood cultures to date. Her WBC count has been trending down and she has been afebrile with Tmax 101.4 on . She has a history of right pelvic rami fractures from March following a fall; evidence of sclerosis but not healed. Per records, she has a history of several abscesses (perirenal, axillary, deltoid) that grow MSSA. Orthopedics was consulted for evaluation of her right upper extremity. Patient notes significant pain with movement and has diffuse swelling. She currently has cellulitis and edema surround the elbow and forearm; no open wounds. She has several scabbed over areas on the upper right shoulder. XRs of the arm do no show fracture or malalignment. An ultrasound of the arm showed bursal fluid posterior to the olecranon. Allergies/Medications Allergies: Coded Allergies: codeine (Intermediate, HIVES 06/17/16) nickel (Intermediate, RASH 06/17/16) adhesive tape (Mild, RASH 06/17/16) duloxetine (Intermediate, NAUSEA 06/17/16) hydrocodone (GI UPSET (ESOPHAGITIS) 06/17/16) ibuprofen (GI UPSET (ESOPHAGITIS) 06/17/16) Home Med List: Albuterol Sulfate (Proair Hfa) 90 MCG HFA.AER.AD 2 PUF INH Q4-6 PRN PRN SOB ( Reported) Diphenhydramine HCl (Benadryl) 25 MG CAPSULE 1 CAP PO Q6 PRN ITCHING ( Reported) Ergocalciferol (Vitamin D2) (Drisdol) 50,000 UNIT CAPSULE 1 CAP PO QW Supplement Please take one of these medications every week for the next eight weeks. After that, you will be required to take one every two weeks for mainainance of your vitamin D Levels. Hydrocortisone Acetate (Micort-Hc) 2.5 % CREAM.APPL 1 DEMETRA TOP TID ITCHING ( Reported) Insulin Aspart (Novolog) 100 UNIT/ML VIAL 0 SC SEE ADMIN CRITERIA Diabetes Your insulin coverage was changed while in hospital. Sliding Scale Blood Sugar Less that 80mg/dl Initiate Hypoglycemia protocol 80-150 mg/dl 12 units 151-200 mg/dl 14 units 201-250 mg/dl 16 units 251-300 mg/dl 18 units 301-350 mg/dl 20 units 351-400 mg/dl 22 units More than 400 mg/dl 24 units call MD Please check your blood sugar at least three times a day. Inform your cras about this change. 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 Hepatic: NONE Renal: left pararenal abscess Musculoskeletal: OSTEOMYELITIS OF PUBIS PUBIS FX Psychiatric: anxiety, chronic pain disorder, depression, opioid dependence, POLYSUBSTANCE ABUSE NARCOTIC DEPENDENCE SUICIDAL IDEATION Endocrine: INSULIN DEPENDENT DIABETES - noncompliant Blood Disorders: anemia Cancer(s): NONE SOLE PAINTER/Reproductive: ECTOPIC Other Medical Hx: Left axillary abscess secondary to MSSA status post I&D November 2014 Right deltoid abscess March 2016 secondary to MSSA Surgical History Pertinent Surgical History: , hysterectomy, D&C colostomy with reversal left axillary abscess November 2014 Family History Relations & Conditions If Any: FATHER (diabetese mellitis Currently 06/16/2015- unable to get any meaningful FHx from patient, s/p drug OD.). FH: cirrhosis Psychosocial History Where Do You Live? Home Who Do You Live With? with friend Primary Language: Albanian Smoking Status: Current Everyday Smoker ETOH Use: denies use Living Will? no Power of Motel Food Service Supervisor/HCP? no Functional Ability ADLs Independent: dressing, eating, toileting, bathing. Ambulation: independent IADLs Independent: shopping, housework, finances, food prep, telephone, transportation , medication admin. Exam & Diagnostic Data Vital Signs and I&O Vital Signs Date Time Temp Pulse Resp B/P Pulse O2 O2 Flow FiO2 Ox Delivery Rate 08/05 0825 9728.0 96 20 93/52 95 Nasal 2.0L Cannula 08/05 0524 98.4 94 24 105/55 94 Nasal 3.0L Cannula 08/05 0400 88/58 08/05 0327 97.6 92 24 73/55 94 Nasal 3.0L Cannula 08/05 0154 98.3 100 22 90/60 94 Nasal 3.0L Cannula 08/05 0000 94 Nasal 3.0L Cannula 08/04 2330 102 16 108/60 94 Nasal 3.0L Cannula 08/04 2244 130 122/60 08/04 2237 98.2 133 18 132/58 87 Room Air 08/04 2215 130 18 122/60 85 Room Air 08/04 1600 96.5 72 18 110/80 97 Room Air 08/04 1120 Room Air Room Air 08/04 1109 117 92/64 Intake & Output 08/05 1600 08/05 0800 08/05 0000 08/04 1600 08/04 0800 08/04 0000 Intake Total 480 1324 2130 1770 1754 Output Total 50 330 160 117 360 Balance 935 737 4716 1653 1394 Intake, IV 844 1480 1530 1314 Intake, Oral 480 480 650 240 440 Number 0 0 Bowel Movements Output, 30 10 0 Drainage Output, Stool 0 Output, Urine 50 300 150 117 360 Physical Exam: Obese female laying in bed, no distress. Eating ice chips. Venous access line in left neck. Skin abrasions to neck and chest, likely from tape. Upper Extremities: Swelling and erythema noted over right elbow and proximal forearm. No open wounds, lacerations, abrasions noted. Ecchymosis in small area over right hand. Several large closed scabs over right shoulder and neck, no drainage or surrounding erythema. No tenderness to palpation of right shoulder or upper arm; no tendernesss over right wrist or hand. Very tender over right elbow and proximal forearm. Intact right shoulder flexion; able to lift arm off the bed. Pain with attempted right elbow flexion and supination. No pain with right wrist flexion/extension or veterinarian. Sensation intact to light touch over bilateral UE in axillary, radial, ulnar, and median nerve distributions. Palpable radial pulses bilaterally. No tenderness over left upper extremity; no pain with shoulder flexion, elbow flexion/extension, or veterinarian with the left hand. Several small areas of ecchymosis and erythema. Lower Extremities: Tenderness to palpation of right lower extremity from hip to ankle. Moves right leg independently but reports pain. Drain from abdomen with mace-harrell thick fluid. Intact bilateral ankle DF/PF. Sensation intact to light touch in bilateral feet. Palpable DP pulses bilaterally. Imaging Results: XR elbow 08/03/2016: Generalized subcutaneous edema. Limited positioning. Assessment for joint effusion is not possible. No gross bony lesion. No periosteal new bone formation. XR right humerus 07/29/2016: No fracture of humerus. Elbow and shoulder are unremarkable. No soft tissue abnormality. XR right forearm 07/29/2016: No fracture. Radius and ulna are intact. Wrist and elbow are unremarkable. No soft tissue abnormality. Ultrasound right arm 08/03/2016: Small amount of likely bursal fluid about the posterior aspect of the right elbow. CT scan abdomen 08/05/2016: 1. Fractures of the right superior and inferior pubic rami are again noted with partial interval healing since the prior study. No acute fractures are seen. Increased sclerosis at the right pubic rami is nonspecific. An infectious process is difficult to exclude. 2. New appearance of a right pelvic collection with mass effect upon the bladder. This likely represents hematoma in the setting of fracture. There is also hematoma of the right iliopsoas. Assessment/Plan Assessment/Plan 40yo F with right elbow and proximal forearm cellulitis. Given history of other abscesses, including MSSA intrapelvic infection on this admission, recommend evaluation for soft tissue abscess. 1. Continue antibiotics for MSSA 2. Advanced imaging of right upper extremity with CT scan. IV contrast would be preferable, but given acute kidney injury recommend noncontrast study unless kidney function improves. 3. Pain control, elevation of arm. 4. May consider splinting of right arm for comfort. 5. Consider evaluation of patient's immune function given recurrent abscesses. Will continue to follow. Consult Acknowledgment - Thank you for your consult request. Attending MD Review Statement Attending Statement Attending MD Statement: examined this patient, reviewed EMR data (avail), reviewed images
--- NOTE | 2016-08-05 09:00 | NUR ---
0700 ELIAS CHANGED SINCE LEAKING CONTINUES.
--- NOTE | 2016-08-05 09:03 | NUR ---
LATE ENTRY FOR 08/04/162129 PT ARRIVED TO RM 211 FROM THE ICU. IVF INFUSING INTO [facility] T[facility]. CALL HANSEN IN REACH. PT IS AOX2-3 (CONFUSION TO TIME). PERC DRAIN TO ABDOMEN. SOME SCABS TO UPPER BODY. 2214 VSIGNS TAKEN AND ABNORMAL. HR 130/ROOM AIR O2 SAT 85%. PT REMAINS AOX2-3. RAPID RESPONSE CALLED TO EVALUATE THE PT. OXYGEN STARTED AT 3LNC. SEE MD NOTES AND VSIGNS.
--- NOTE | 2016-08-05 09:23 | NUR ---
08/05/16 [address] MCKINLEY BP 90/60 AND HR 100. SEE EMAR. [address] MCKINLEY AND MOD DR LEE BP 78/55 AND HR 92. SEE EMAR. 0400 DR TODD HERE TO EVAL THE PT. SEE EMAR FOR BOLUS GIVEN. BP 88/58. 0600 BP 105/54 AND HR 94-BOLUS COMPLETED.
--- NOTE | 2016-08-05 11:05 | PN- Nephrology ---
Assessment/Plan Assessment: 1. BROOK[place]NN: stable nonolioguric ATN post mult insults 2. Met acid: low AG - compensated prob due to BROOK[place]NN; continue bicarb --> change to po 3. Hyponatremia: worse - needs fluid restriction Suggestion: 1. d/c IV 2. Nabicarb 1300 mg tid 3. fluid rstrict 800 ml/day --> total po & IV 4. serial chemistries Subjective Subjective: SOB last night noted Better this AM No vomiting or diarrhea Nonoliguric Objective Vital Signs and I&Os Vital Signs Date Time Temp Pulse Resp B/P Pulse O2 O2 Flow FiO2 Ox Delivery Rate 08/05 0825 97.8 96 20 93/52 95 Nasal 2.0L Cannula 08/05 0524 98.4 94 24 105/55 94 Nasal 3.0L Cannula 08/05 0400 88/58 08/05 0327 97.6 92 24 73/55 94 Nasal 3.0L Cannula 08/05 0154 98.3 100 22 90/60 94 Nasal 3.0L Cannula 08/05 0000 94 Nasal 3.0L Cannula 08/04 2330 102 16 108/60 94 Nasal 3.0L Cannula 08/04 2244 130 122/60 08/04 2237 98.2 133 18 132/58 87 Room Air 08/04 2215 130 18 122/60 85 Room Air 08/04 1600 96.5 72 18 110/80 97 Room Air 08/04 1120 Room Air Room Air 08/04 1109 117 92/64 Intake & Output 08/05 1600 08/05 0400 08/04 1600 08/04 0400 08/03 1600 08/03 0400 Intake Total 480 1324 3900 1754 3488 1728.3 Output Total 50 330 868 074 8311 10 Balance 319 341 8279 1394 2048 1718.3 Intake, IV 844 3010 1314 2608 958.3 Intake, Oral 480 480 890 440 880 770 Number 0 0 0 0 Bowel Movements Output, 30 10 0 40 10 Drainage Output, Stool 0 Output, Urine 50 300 842 803 6702 Physical Exam General Appearance: well developed/nourished, alert Head: atraumatic Ears, Nose, Throat: normal ENT inspection Respiratory: normal breath sounds, lungs clear Cardiovascular: regular rate/rhythm, friction rub (none) Abdomen: soft, non-tender, obese Extremities: swelling (1= bilat legs), R arm erythematous Neurologic/Psychiatric: no motor/sensory deficits, awake, alert, oriented x 3, accountant budget II-XII nml as tested Skin: R arm erythema Current Medications: Current Medications Sig/Shahla Start time Last Medication Dose Route Stop Time Status Admin Acetaminophen 650 MG Q4 HRS NEEDED PRN 07/31 0800 AC 08/05 PO 0859 Albuterol Sulfate 3 ML ONCE PRN 08/04 2230 AC INH Albuterol Sulfate 2 PUF Q4P PRN 07/30 2200 AC 08/05 INH 0249 Collagenase 1 DEMETRA DAILY 08/04 1000 AC 08/04 TOP 1130 Diclofenac Sodium 1 DEMETRA TID PRN 07/30 1145 AC 08/04 TOP 202 Diphenhydramine HCl 75 MG .STK-MED ONE 08/04 1358 DC PO 08/04 1359 Diphenhydramine HCl 50 MG .STK-MED ONE 08/04 1356 DC IM 08/04 1357 Diphenhydramine HCl 75 MG Q6P PRN 07/31 1100 AC 08/04 PO 1401 Docusate Sodium 100 MG DAILY 07/31 1000 AC 08/03 PO 1001 Enoxaparin Sodium 40 MG DAILY 08/02 1000 AC 08/04 SC 0955 Hydromorphone HCl 0.2 MG ONCE ONE 08/04 2014 DC 08/04 IV 08/04 Hydromorphone HCl 1 MG Q6P PRN 08/03 1030 AC 08/04 IV 2354 Insulin Aspart 0 TIDAC/HS 08/01 0800 AC 08/04 SC 1727 Insulin Detemir 20 UNITS ONCE ONE 08/04 2245 DC 08/04 SC 08/04 2246 2250 Insulin Detemir 60 UNITS BID 07/28 2200 AC 08/03 SC 1000 Lidocaine 1 PAT DAILY 07/28 1800 AC 07/28 EXT 2004 Miconazole Nitrate 1 DEMETRA AT BEDTIME 07/29 0130 AC 08/01 VAG 2318 Oxacillin Sodium 2,000 MG Q4 08/03 1400 AC 08/05 Sodium Chloride 100 ML IV 0619 Oxymetazoline HCl 1 SPRAY Q12 08/03 1518 AC 08/04 ANNETTE 08/05 2201 2239 Pregabalin 150 MG BID 07/28 2200 AC 08/04 PO 2239 Propranolol HCl 10 MG BID 08/05 1000 AC PO Propranolol HCl 20 MG BID 07/28 2200 DC 08/04 PO 2244 Quetiapine Fumarate 100 MG AT BEDTIME PRN 08/05 2200 AC PO Senna/Docusate Sodium 2 TAB DAILY 07/31 1000 AC 08/04 PO 0953 Sertraline HCl 25 MG DAILY 08/05 1000 AC PO Simethicone 80 MG Q6P PRN 08/03 0830 AC 08/03 PO 1001 Sodium Bicarbonate 1,300 MG TID 08/05 1059 UNVr PO Sodium Bicarbonate 150 MEQ Q10H 08/04 1845 DC Dextrose/Sodium 1,000 ML IV Chloride Sodium Bicarbonate 75 MEQ Q6H 08/04 0930 DC 08/05 Dextrose/Sodium 1,000 ML IV 0730 Chloride Sodium Chloride 1,000 ML BOLUS ONE 08/05 0400 DC 08/05 IV 08/05 0559 0413 Sodium Chloride 250 ML BOLUS ONE 08/05 0200 DC 08/05 IV 08/05 0259 0208 Results Pertinent Lab Results: Laboratory Tests 08/05 08/04 0630 1008 Blood Gas pH (7.35 - 7.45 PH) 7.29 *L pCO2 (35 - 45 TORR) 32 L pO2 (80 - 100 TORR) 72 L HCO3 (21 - 28 MEQ/L) 15 L ABG O2 Sat (Measured) (>96.0 %) 94.0 L P-50 (Temp Corrected) N Carboxyhemoglobin (1.5 - 5.0 %) 0.4 L O2 Concentration % .21 Temperature (97.0 - 100.0 FARH) 96.5 L O2 Delivery Method RA Chemistry Sodium (137 - 145 mmol/L) 121 L Potassium (3.5 - 5.1 mmol/L) 5.2 H Chloride (98 - 107 mmol/L) 97 L Carbon Dioxide (22 - 30 mmol/L) 18 L Anion Gap (5 - 16) 6 BUN (7 - 17 mg/dL) 60 H Creatinine (0.5 - 1.0 mg/dL) 2.3 H Estimated GFR (>60 ml/min) 24 L BUN/Creatinine Ratio (7 - 25 %) 26.1 H Phosphorus (2.5 - 4.5 mg/dL) 5.9 H Magnesium (1.6 - 2.3 mg/dL) 1.8 Hematology CBC w Diff MAN DIFF ORDERED WBC (4.8 - 10.8 /CUMM) 9.5 RBC (4.20 - 5.40 /CUMM) 3.60 L Hgb (12.0 - 16.0 G/DL) 9.5 L Hct (37 - 47 %) 29.2 L MCV (81.0 - 99.0 FL) 80.9 L MCH (27.0 - 31.0 PG) 26.3 L RDW (11.5 - 14.5 %) 17.9 H Plt Count (130 - 400 /CUMM) 201 MPV (7.4 - 10.4 FL) 8.4 Gran % (42.2 - 75.2 %) 92.8 H Lymphocytes % (20.5 - 51.1 %) 5.0 L Monocytes % (1.7 - 9.3 %) 1.1 L Eosinophils % (0 - 5 %) 1.0 Basophils % (0.0 - 2.0 %) 0.1 Absolute Granulocytes (1.4 - 6.5 /CUMM) 8.8 H Segmented Neutrophils (42.2 - 75.2 %) 79 H Band Neutrophils (0.0 - 5.0 %) 14 H Absolute Lymphocytes (1.2 - 3.4 /CUMM) 0.5 L Lymphocytes (20.5 - 51.1 %) 4 L Monocytes (1.7 - 9.3 %) 1 L Absolute Monocytes (0.10 - 0.60 /CUMM) 0.1 L Eosinophils (0 - 5.0 %) 2 Absolute Eosinophils (0.0 - 0.7 /CUMM) 0.1 Absolute Basophils (0.0 - 0.2 /CUMM) 0 Platelet Estimate (ADEQUATE) ADEQUATE Anisocytosis 1+ PUBS MCHC (33.0 - 37.0 G/DL) 32.4 L Miscellaneous Phlebotomy Draw Site LEFT RADIAL 08/04 08/03 0435 1530 Chemistry Sodium (137 - 145 mmol/L) 127 L 124 L Potassium (3.5 - 5.1 mmol/L) 4.6 4.8 Chloride (98 - 107 mmol/L) 100 104 Carbon Dioxide (22 - 30 mmol/L) 17 L 14 L Anion Gap (5 - 16) 9 6 BUN (7 - 17 mg/dL) 59 H 56 H Creatinine (0.5 - 1.0 mg/dL) 2.2 H 1.8 H Estimated GFR (>60 ml/min) 25 L 31 L BUN/Creatinine Ratio (7 - 25 %) 26.8 H Glucose (65 - 99 mg/dL) 104 H Calcium (8.4 - 10.2 mg/dL) 7.6 L Phosphorus (2.5 - 4.5 mg/dL) 4.8 H 4.6 H Magnesium (1.6 - 2.3 mg/dL) 1.9 1.8 Total Bilirubin (0.2 - 1.3 mg/dL) 0.2 AST (14 - 36 U/L) 22 ALT (9 - 52 U/L) 28 Albumin (3.5 - 5.0 g/dL) 1.7 L Hematology CBC w Diff MAN DIFF ORDERED WBC (4.8 - 10.8 /CUMM) 11.4 H RBC (4.20 - 5.40 /CUMM) 3.85 L Hgb (12.0 - 16.0 G/DL) 10.1 L Hct (37 - 47 %) 31.2 L MCV (81.0 - 99.0 FL) 81.1 MCH (27.0 - 31.0 PG) 26.3 L RDW (11.5 - 14.5 %) 17.7 H Plt Count (130 - 400 /CUMM) 216 MPV (7.4 - 10.4 FL) 8.1 Gran % (42.2 - 75.2 %) 95.6 H Lymphocytes % (20.5 - 51.1 %) 2.9 L Monocytes % (1.7 - 9.3 %) 0.4 L Eosinophils % (0 - 5 %) 1.0 Basophils % (0.0 - 2.0 %) 0.1 Absolute Granulocytes (1.4 - 6.5 /CUMM) 10.9 H Segmented Neutrophils (42.2 - 75.2 %) 84 H Band Neutrophils (0.0 - 5.0 %) 11 H Absolute Lymphocytes (1.2 - 3.4 /CUMM) 0.3 L Lymphocytes (20.5 - 51.1 %) 3 L Monocytes (1.7 - 9.3 %) 2 Absolute Monocytes (0.10 - 0.60 /CUMM) 0 L Absolute Eosinophils (0.0 - 0.7 /CUMM) 0.1 Absolute Basophils (0.0 - 0.2 /CUMM) 0 Platelet Estimate (ADEQUATE) ADEQUATE Hypochromic-Microcytic 1+ Ovalocytes 1+ PUBS MCHC (33.0 - 37.0 G/DL) 32.5 L 08/03 08/03 1040 1040 Urines Urine Color (YEL,AMB,STR) YEL Urine Clarity (CLEAR) HAZY H Urine pH (5.0 - 8.0) 6.5 Ur Specific Scheller (1.001 - 1.035) 1.010 Urine Protein (NEG,<30 MG/DL) TRACE H Urine Ketones (NEG) NEG Urine Nitrite (NEG) POS H Urine Bilirubin (NEG) NEG Urine Urobilinogen (0.1 - 1.0 EU/dl) 0.2 Ur Leukocyte Esterase (NEG) SMALL H Ur Microscopic SEDIMENT EXAMINED Urine RBC (0 - 5 /HPF) 3-5 Urine WBC (0 - 2 /HPF) 10-15 H Ur Epithelial Cells (NONE,FEW) RARE Urine Bacteria (NEG/NONE) MANY H Urine Hemoglobin (NEG) NEG Urine Osmolality (300 - 1000 MOSM/KG) 350 Ur Random Creatinine (mg/dL) 101.6 Ur Random Sodium (30 - 90 mmol/L) 8 L Ur Random Potassium (mmol/L) 28.9 Fraction Sodium Excret (<1% %) 0.1 Urine Glucose (N MG/DL) NEG 08/03 0444 Chemistry Sodium (137 - 145 mmol/L) 121 L Potassium (3.5 - 5.1 mmol/L) 5.6 H Chloride (98 - 107 mmol/L) 98 Carbon Dioxide (22 - 30 mmol/L) 16 L Anion Gap (5 - 16) 6 BUN (7 - 17 mg/dL) 56 H Creatinine (0.5 - 1.0 mg/dL) 1.9 H Estimated GFR (>60 ml/min) 29 L Glucose (65 - 99 mg/dL) 190 H Serum Osmolality (285 - 295 MOSM/KG) 290 Calcium (8.4 - 10.2 mg/dL) 8.0 L Phosphorus (2.5 - 4.5 mg/dL) 5.0 H Magnesium (1.6 - 2.3 mg/dL) 1.9 Total Bilirubin (0.2 - 1.3 mg/dL) 0.2 AST (14 - 36 U/L) 24 ALT (9 - 52 U/L) 34 Albumin (3.5 - 5.0 g/dL) 1.8 L Cortisol AM Sample (4.46 - 22.7 ug/dL) 21.1 Hematology CBC w Diff MAN DIFF ORDERED WBC (4.8 - 10.8 /CUMM) 11.4 H RBC (4.20 - 5.40 /CUMM) 3.91 L Hgb (12.0 - 16.0 G/DL) 10.3 L Hct (37 - 47 %) 31.6 L MCV (81.0 - 99.0 FL) 80.9 L MCH (27.0 - 31.0 PG) 26.4 L RDW (11.5 - 14.5 %) 17.4 H Plt Count (130 - 400 /CUMM) 199 MPV (7.4 - 10.4 FL) 8.3 Gran % (42.2 - 75.2 %) 95.5 H Lymphocytes % (20.5 - 51.1 %) 3.1 L Monocytes % (1.7 - 9.3 %) 0.6 L Eosinophils % (0 - 5 %) 0.7 Basophils % (0.0 - 2.0 %) 0.1 Absolute Granulocytes (1.4 - 6.5 /CUMM) 10.9 H Segmented Neutrophils (42.2 - 75.2 %) 93 H Band Neutrophils (0.0 - 5.0 %) 6 H Absolute Lymphocytes (1.2 - 3.4 /CUMM) 0.4 L Lymphocytes (20.5 - 51.1 %) 1 L Absolute Monocytes (0.10 - 0.60 /CUMM) 0.1 L Absolute Eosinophils (0.0 - 0.7 /CUMM) 0.1 Absolute Basophils (0.0 - 0.2 /CUMM) 0 Platelet Estimate (ADEQUATE) ADEQUATE Hypochromic-Microcytic 1+ Poikilocytosis FEW Anisocytosis 1+ Microcytic Cells 1+ Ovalocytes FEW PUBS MCHC (33.0 - 37.0 G/DL) 32.6 L Other Body Source Fld Total RBCs Counted (%) 100 Toxicology Random Vancomycin (ug/ml) 31.8 Imaging/Other Studies: CXR: 1. There are multiple new areas of opacity in both lungs, which may be consistent with sequelae of multifocal infiltrative process. 2. There is persistent opacity at the right base consistent with a pleural effusion and underlying consolidatio
--- NOTE | 2016-08-05 13:31 | NUR ---
WOUND CARE: PT AGREED TO BODY ASSESSMENT AND BED BATH AFTER MULTIPLE ATTEMPTS TODAY - PT PREMEDICATED WITH IV DILAUDID PRIOR TO - SKIN ASSESSMENT FOLLOWS: RIGHT AXILLA 3X2 CM DRIED SCABBED AREA - RIGHT BREAST 3X2 CM THICK DRY DESICATED SCAB PROXIMAL TO NIPPLE NON DNRG - LEFT ARM BRUISED AREA - INC LARGE AMOUNT URINE - INC CARE PROVIDED - INCONTINENT ASSOCIATED DERMATITIS NOTED TO DOUG BUTTOCKS EXTENDING TO DOUG ISCHIUM WITH MACERATED/DENUDED TISSUE - RIGHT BUTTOCKS PERSISTS WITH AN UNSTAGEABLE PRESSURE INJURY 80% MOIST BLACK FILL, 20% MOIST YELLOW SLOUGH TO EDGES - SCANT SEROUS DRNG - NO EVIDENCE OF INFECTION - 4 X 2.7 CM - LEFT BUTTOCKS STAGE 2 PRESSUR INJURY 1 X 1 CM PALE RED FILL - TOP OF HEAD AT SCALP 1X1 CM UNSTAGEABLE LESION MIXED YELLOW AND BROEN FILL - BOGGY SOFT TEXTURE WITH PURULENT DRNG WHEN PALPATED - PT C/O TENDERNESS - PERIWOUND AREA HAIR LOSS CIRCUMFERENTIALLY TO WOUND - MOD SERSANG DRNG - ETIOLOGY UNKNOWN WOUND IS NOT PRESENT ON BONY PROMINENCE OR PRESSURE AREA - CALL PLACED TO DR TESFAYE TO UPDATE - MD TO EVALUATE TODAY RECOMMENDATION: DUE TO PTS FREQUENT REFUSAL FOR DRESSING CHANGES AND REPOSITIONING DESPITE MULTIPLE ATTEMPTS AT EDUCATION AND RISK REVIEW, CONSIDER DECREASING FREQUENCY OF DRESSING CHANGES TO HOPEFULLY IMPROVE PT COMPLIANCE - CLEANSE BUTTOCKS WITH SOAP AND WATER QS AFTER INC EPISODES - APPLY HYDROCOLLOID CGF DRESSING 3 DAYS AND PRN TO DOUG BUTTOCKS - APPLY DESITIN OINTMENT QS AND PRN AFTER INC EPISODES - CONSIDER IMAGING OF HEAD LESION - SIZE HARRIS MATTRESS HAS ALREADY BEEN ORDERED, AND PT HAS AGREED TO TRIAL GROUP 2 MATTRESS - CONT TO ENCOURAGE SIDE LYING POSITION TOLERATED - AWAIT FURTHER RECOMMEDNATIONS FROM DR TESFAYE FOR HEAD WOUND PLEASE
--- NOTE | 2016-08-05 13:32 | PN- Resident CRCU ---
EDY HERNANDEZ 08/05/16 1236: Subjective HPI/CRCU Issues: Icu post discharge follow up 24 Hour Events: At 10:30 PM rapid response was called bc pt was SOB. Satting 93% RA with sinus tachycardia. BP, RR and temp WNL. Pt AO X3, neuro exam normal. Upon auscultation pt was wheezy and tight. PRN albuteron was on med list but not administered. EKG ordered. TRC ordered. If pt does not improve will start steroids and consider ABG. We followed up on Mrs. Urias for hypoxia and letheragy, which was reported by the primary team. Patient seen and examined. She was sleeping comfortabl and we had to wake her up for interview. She does not appears to be in respiratory distress. She used full sentences and mentined that she had no particular problem with her breathing, though, she admits to severe pain throughout her body, but localized to her right arm and pelvis. She is tearful, apathetic, and requesting an increase to her narcotic pain medications. Otherwise she denies any fever, chills, headache, chest pain, palpitations, cough, nausea, vomiting, diarrhea. On 2 .5 lit of O2 Sat 94-94% Vital signs are all stable. Event note (as above). Labs for today showed worsenig renal function from her base line to Cr 2.3 (> 0.5 mg/dl) increase. WBC is decreasing. ABG was done: 7.29/32/72/15/ Na 121, K 5.2 Chloride 97 HCo3 18 PH/Ex: GA: tired and very sleep; but AO X3; apathic and tearful Chest: normal expansion; Lungs: scattered basilar ronchi; - wheezing; Heart: S1 S2 no murmur Ext: +2-3 b/l pitting pedal edema up to knees. Assessment Icu team follows up on Mrs. Urias, who was recently transferred to [facility] being managed for her septic shock. 1) Hypoxia and abnormal findings on CXR: last night, reportadely, patient became tachypnic and hypoxic and wheezing in PH/Ex. The CXR was done today, which was suggestive of multiple new areas of opacity in both lungs which may be consistent with sequelae of multifocal infiltrative process. Otherwise, patien has no finding suggestive of pneumonia.Additonally, the am CXR had technical difficulties duet to poor inspratory effort and underpenetration and poor positioning. Her lung Ph/Ex was clear w/ some basilar ronchi possibly due to ateletasis. * Obtain ABG and assess acidosis and hypoxia * Continue dueneb and TRc * avoid narcotics and hypnotics * incentive spirometry * O2 supplement 2lit with target O2 sat of 92-94% 2)Acute kidney injury /metabolic acidosis / hyponatremia: worsening Cr. Hold off diuretics. * get ABG and reassess acidosis * follow up w/ nephrology regarding acid-base disturbance and NaHCo3 drip. 3) worsesning B/L lower extremities edema. * obtain doppler U/S Objective Vital Signs & I&O Last 8 Hrs of Vitals and I&O: reviwed Exam General Appearance: no apparent distress, alert, awake, comfortable Head: atraumatic Respiratory: chest non-tender, quiet respiration, rhonchi Cardiovascular: regular rate/rhythm, norml femoral pulses equa Gastrointestinal: normal bowel sounds Extremities: pedal edema Current Medications: Current Medications Sig/Shahla Start time Last Medication Dose Route Stop Time Status Admin Acetaminophen 650 MG Q4 HRS NEEDED PRN 07/31 0800 AC 08/05 PO 0859 Albuterol Sulfate 3 ML ONCE PRN 08/04 2230 AC INH Albuterol Sulfate 2 PUF Q4P PRN 07/30 2200 AC 08/05 INH 0249 Collagenase 1 DEMETRA DAILY 08/04 1000 AC 08/05 TOP 1202 Diclofenac Sodium 1 DEMETRA TID PRN 07/30 1145 AC 08/04 TOP 2024 Diphenhydramine HCl 75 MG .STK-MED ONE 08/04 1358 DC PO 08/04 1359 Diphenhydramine HCl 50 MG .STK-MED ONE 08/04 1356 DC IM 08/04 1357 Diphenhydramine HCl 75 MG Q6P PRN 07/31 1100 AC 08/04 PO 1401 Docusate Sodium 100 MG DAILY 07/31 1000 AC 08/05 PO 1200 Enoxaparin Sodium 40 MG DAILY 08/02 1000 AC 08/05 SC 1202 Hydromorphone HCl 0.2 MG ONCE ONE 08/04 2014 DC 08/04 IV 08/04 Hydromorphone HCl 1 MG Q6P PRN 08/03 1030 AC 03/20 IV 2354 Insulin Aspart 0 TIDAC/HS 08/01 0800 AC 08/04 SC 1727 Insulin Detemir 20 UNITS ONCE ONE 08/04 2245 DC 08/04 SC 08/04 2246 2250 Insulin Detemir 60 UNITS BID 07/28 2200 AC 08/05 SC 1200 Lidocaine 1 PAT DAILY 07/28 1800 AC 07/28 EXT 2004 Miconazole Nitrate 1 DEMETRA AT BEDTIME 07/29 0130 AC 08/01 VAG 2318 Oxacillin Sodium 2,000 MG Q4 08/03 1400 AC 08/05 Sodium Chloride 100 ML IV 1159 Oxymetazoline HCl 1 SPRAY Q12 08/03 1518 AC 08/05 ANNETTE 08/05 2201 1201 Pregabalin 150 MG BID 07/28 2200 AC 08/04 PO 2239 Propranolol HCl 10 MG BID 08/05 1000 AC PO Propranolol HCl 20 MG BID 07/28 2200 DC 08/04 PO 2244 Quetiapine Fumarate 100 MG AT BEDTIME PRN 08/05 2200 AC PO Senna/Docusate Sodium 2 TAB DAILY 07/31 1000 AC 08/05 PO 1159 Sertraline HCl 25 MG DAILY 08/05 1000 AC 08/05 PO 1159 Simethicone 80 MG Q6P PRN 08/03 0830 AC 08/03 PO 1001 Sodium Bicarbonate 1,300 MG TID 08/05 1059 AC PO Sodium Bicarbonate 150 MEQ Q10H 08/04 1845 DC Dextrose/Sodium 1,000 ML IV Chloride Sodium Bicarbonate 75 MEQ Q6H 08/04 0930 DC 08/05 Dextrose/Sodium 1,000 ML IV 0730 Chloride Sodium Chloride 1,000 ML BOLUS ONE 08/05 0400 DC 08/05 IV 08/05 0559 0413 Sodium Chloride 250 ML BOLUS ONE 08/05 0200 DC 08/05 IV 08/05 0259 0208 Impression/Plan Impression/Problem List Impression: mentined above Problem List: 1. Hip pain 2. Pleural effusion 3. Right hip pain Pain Ratin Tomorrow's Labs & Rationales: cbc bep Plan DVT/Prophylaxis: mechanical, pharmacological MIR RAMON MD 08/05/16 1407: Attending MD Review Statement Attending Sign Off Attending Cosign Statement: I have: examined this patient, reviewed aval EMR data, personally reviewd images, discussd w/resident/PA/CRAWLER CRANE OPERATOR, discussed mgmt plan w/elsie, discussed mgmt plan w/CM, discussed mgmt plan w/pt, agreed w/resident/PA/CRAWLER CRANE OPERATOR, amended to note. Other Findings: Mir Escobar M.D. have examined this patient, reviewed available EMR data, personally reviewed images, discussed with resident/PA/CRAWLER CRANE OPERATOR, discussed management plan with housestaff and nursing staff, discussed managment plan all of healthcare providers, discussed management plan with patient and/or family, agreed with resident/PA/CRAWLER CRANE OPERATOR. The past history and parts of the chart have been autopopulated. TTS 35 minutes No ICU upgrade at this time, can remain on floors KARIN CARPENTER MD 08/05/16 5418: Attending MD Review Statement Attending Sign Off Other Findings: Above noted. Will follow.
--- NOTE | 2016-08-05 13:53 | PN- Infect Dx ---
Subjective Subjective: Afebrile. She apparently developed increased respiratory distress overnight with audible wheezing, for which she was given breathing treatments. Presently she feels somewhat improved and is not complaining of any pain at this time. Objective Last 24 Hrs of Vital Signs/I&O Vital Signs Date Time Temp Pulse Resp B/P Pulse O2 O2 Flow FiO2 Ox Delivery Rate 08/05 1201 93 112/61 08/05 0825 97.8 96 20 93/52 95 Nasal 2.0L Cannula 08/05 0524 98.4 94 24 105/55 94 Nasal 3.0L Cannula 08/05 0400 88/58 08/05 0327 97.6 92 24 73/55 94 Nasal 3.0L Cannula 08/05 0154 98.3 100 22 90/60 94 Nasal 3.0L Cannula 08/05 0000 94 Nasal 3.0L Cannula 08/04 2330 102 16 108/60 94 Nasal 3.0L Cannula 08/04 2244 130 122/60 08/04 2237 98.2 133 18 132/58 87 Room Air 08/04 2215 130 18 122/60 85 Room Air 08/04 1600 96.5 72 18 110/80 97 Room Air Intake & Output 08/05 1600 08/05 0800 08/05 0000 Intake Total 480 1324 Output Total 50 330 Balance 430 994 Intake, IV 844 Intake, Oral 480 480 Number 0 Bowel Movements Output, 30 Drainage Output, Urine 50 300 Physical Exam Other Physical Findings: She appears more sedate and comfortable in no acute distress Neck left IJ triple lumen catheter with no inflammation at the site Lungs are clear anteriorly Heart regular rhythm with no murmur Abdomen soft, nontender with positive bowel sounds; catheter remains in place with 10 mL output yesterday and 30 mL overnight Extremities no inflammation around the right shoulder; right elbow and forearm with marked edema and moderate erythema, tender to minimal palpation, with good range of motion of the right elbow; right hip pain on movement Orta catheter is in place Results Last 24 Hours of Lab Results: Laboratory Tests 08/05 08/05 1300 0630 Chemistry Sodium (137 - 145 mmol/L) Cancelled 121 L Potassium (3.5 - 5.1 mmol/L) Cancelled 5.2 H Chloride (98 - 107 mmol/L) Cancelled 97 L Carbon Dioxide (22 - 30 mmol/L) Cancelled 18 L Anion Gap (5 - 16) Cancelled 6 BUN (7 - 17 mg/dL) Cancelled 60 H Creatinine (0.5 - 1.0 mg/dL) Cancelled 2.3 H Estimated GFR (>60 ml/min) 24 L BUN/Creatinine Ratio (7 - 25 %) Cancelled 26.1 H Phosphorus (2.5 - 4.5 mg/dL) 5.9 H Magnesium (1.6 - 2.3 mg/dL) 1.8 Hematology CBC w Diff MAN DIFF ORDERED WBC (4.8 - 10.8 /CUMM) 9.5 RBC (4.20 - 5.40 /CUMM) 3.60 L Hgb (12.0 - 16.0 G/DL) 9.5 L Hct (37 - 47 %) 29.2 L MCV (81.0 - 99.0 FL) 80.9 L MCH (27.0 - 31.0 PG) 26.3 L RDW (11.5 - 14.5 %) 17.9 H Plt Count (130 - 400 /CUMM) 201 MPV (7.4 - 10.4 FL) 8.4 Gran % (42.2 - 75.2 %) 92.8 H Lymphocytes % (20.5 - 51.1 %) 5.0 L Monocytes % (1.7 - 9.3 %) 1.1 L Eosinophils % (0 - 5 %) 1.0 Basophils % (0.0 - 2.0 %) 0.1 Absolute Granulocytes (1.4 - 6.5 /CUMM) 8.8 H Segmented Neutrophils (42.2 - 75.2 %) 79 H Band Neutrophils (0.0 - 5.0 %) 14 H Absolute Lymphocytes (1.2 - 3.4 /CUMM) 0.5 L Lymphocytes (20.5 - 51.1 %) 4 L Monocytes (1.7 - 9.3 %) 1 L Absolute Monocytes (0.10 - 0.60 /CUMM) 0.1 L Eosinophils (0 - 5.0 %) 2 Absolute Eosinophils (0.0 - 0.7 /CUMM) 0.1 Absolute Basophils (0.0 - 0.2 /CUMM) 0 Platelet Estimate (ADEQUATE) ADEQUATE Anisocytosis 1+ PUBS MCHC (33.0 - 37.0 G/DL) 32.4 L Last 24 Hours of Haris Results: Blood cultures August 01 remain negative Urine culture August 03 negative Recent Imaging Studies: Chest x-ray August 05 reveals bilateral patchy densities with a right pleural effusion and dense opacification of the right base Assessment/Plan Impression: Pelvic abscess secondary to MSSA, most likely related to her previous sepsis, with possible seeding of the pubic rami fracture leading to the development of the large pelvic abscess, which was drained 4 days ago. She remains afebrile and white blood cell count has decreased, though with increased bands today, on Oxacillin. Her right upper extremity inflammation persists, with orthopedic evaluation noted and appreciated, and it is not clear if this is secondary to her recent trauma or if it represents seeding of the soft tissues, including muscles, of this area. Her right shoulder is difficult to evaluate, but is of less concern to Ortho and her recent CT of the chest, reviewed with Radiology, did not suggest any fluid within the shoulder joint. Her respiratory distress overnight and densities on chest x-ray most likely represent fluid overload, as she is approximately 18 L ahead. Her renal failure persists and is likely multifactorial, with sepsis, urinary retention, for which a Orta catheter was inserted, contrast from the CT scan and medications. Suggestion: 1. Consider CT of the right elbow and forearm if her inflammation persists 2. Further management of her fluid status per Renal 3. Would pursue placement of a Pro-Line catheter in anticipation of a prolonged course of IV antibiotics 4. Continue Oxacillin
--- NOTE | 2016-08-05 14:25 | NUR ---
EVENT NOTE; BP 76/42 MAUALLY, PT LYING, OXYGEN 89% ON 3L, PULSE 96. MD ARCHER NOTIFIED, CAME TO BEDSIDE. ORDER TO BOLUS 250MLS AT 250ML/HR. RECHECK BP AFTER BOLUS.
--- NOTE | 2016-08-05 17:30 | NUR ---
ASSUMED TRANSFER OF THIS PT. FROM [facility]; PT. A&OX3, BP 86/50, SR 65; PER MD NO PRESSORS AT THIS TIME. BS 122; NO INSULIN PER SS. 3L NC; LUNGS CLEAR/DI'D BM 07/31; PT ASKED FOR BEDPAN, PASSED FLATUS ONLY. WHILE TURNING BLACK AREAS NOTED TO RIGHT AND LEFT BUTTOCK; PER EMAR FROM THIS AM; SANTYL WAS APPLIED, WILL SEND MISSING MED FORM TO PHARMACY FOR MORE SANTYL CREAM FOR TONIGHTS APPLICATION. PT. ASKING FOR IV DILAUDID AND IV BENADRYL AT THIS TIME, ALSO ASKING TO SPEAK TO A DOCTOR. DR. MIRANDA TO BEDSIDE, EXPLAINED THAT PT. CAN HAVE BENADRYL BY MOUTH AT THIS TIME, BUT NO DILAUDID D/T LOW BP, PT. AGREED. TLC TO RIJ INTACT, NO BLOOD RETURN NOTED TO WHITE PORT, IV ANTIBIOTICS RUNNING. ELIAS CATHETER DRAINING CLEAR YELLOW URINE, PERCUTANEOUS DRAIN TO RLQ DRAINING PALE, THICK, YELLOW DRAINAGE. CELLULITIS TO RIGHT ARM CIRCLED WITH SKIN MARKER. PT. NOTED TO HAVE GENERALIZED SCABS OVER BODY. EDEMA NOTED TO RIGHT THIGH AND HIP, PLAN FOR PT. TO HAVE PROLINE PLACED ON THURSDAY. ALL PT.'S BELONGINGS WITH PT., SETTLED INTO ICU BED.CALL HANSEN ON CHEST
--- NOTE | 2016-08-05 17:53 | NUR ---
NURSING NOTE; LATE ENTRY; PT REFUSING SIZEWISE MATTRESS, WILL CONT TO MONITOR.
--- NOTE | 2016-08-05 17:54 | NUR ---
NURSING NOTE; LATE ENTRY; THIS RN ASSUMED CARE OF PATIENT AT 1500. PER PREVIOUS RN, PT B/P AT 1400 WAS 72/46, 250ML BOLUS RUNNING OVER AN HOUR TO IMPROVE HYPOTENSION. VITAL SIGNS CHECKED AT 1600 FOR ANY IMPROVEMENT, B/P 80/48, HR-94, R-24. PT TACHYPNEIC AND COMPLAINING OF HAVING TROUBLE BREATHING. DR. CARPENTER AT BEDSIDE TO ASSESS PT. PLAN TO TRANSFER PT TO ICU.
--- NOTE | 2016-08-05 18:07 | NUR ---
NURSING NOTE; LATE ENTRY; PT B/P-80/48 AFTER NS BOLUS. ORDER TO TRANSFER PATIENT TO ICU. PT ON EMERGENCY SERVICE RESTORER, BELOGNINGS PACKED, BUSINESS DEVELOPMENT MANAGER HIRAM AT BEDSIDE TO TRANSFER PT. AT THIS TIME PT ALERT AND ORIENTED X3, PT C/O "TROUBLE BREATHING" ON 3LNC, O2 SAT - 93%, LUNGS DIMINISHED, PERCUTANEOUS DRAIN TO RLQ DRAINING TO GRAVITY, ELIAS DRAINING ЕКАТЕРИНА URINE, SCABS NOTED OVER BODY, DUODERM TO BUTTOCK, EDEMA AND REDNESS TO COLBY, WILL CONT TO MONITOR
--- NOTE | 2016-08-05 19:24 | NUR ---
MD IN TO TALK TO PT WHO IS REQUESTING PAIN MEDICATION. PER MD CHECK BP, MANUAL BP AT THIS TIME 78/42, NOTIFIED MD RUTH HIDALGO. PT ALSO REQUESTING MORE WATER. PT ON 800ML FLUID RESTRICTION, EXPLAINED WILL CHECK HER INTAKE FOR THE DAY.
--- NOTE | 2016-08-05 20:09 | NUR ---
1939 PT TEARFUL AND REQUESTING DILAUDID "I'M IN SO MUCH PAIN AND NO ONE CARES", OFFERED EMOTIONAL SUPPORT, DISCUSSED WITH PT THAT WE COULD NOT GIVE DILAUDID AT THIS POINT WITH AT BP 78/42, PT VERBALIZED UNDERSTANDING OFFERED PO TYLENOL PT STATES "DOESN'T WORK, I CAN'T TAKE PILLS RIGHT NOW, PT AGREED TO IV TYLENOL BUT STATED "IF THIS DOES NOT WORK CAN I THEN HAVE DILAUDID", EXPLAINED AGAIN HER BP ISSUE. OFFERED TO REPOSTION PT AND GIVE BACK RUB PT CRIED AND SAID "NO LEAVE ME THE WAY I AM". NOTIFIED MD OF HER AGREEING TO IV TYLENOL, MEDICATION ORDERED. WILL MONITOR.
--- NOTE | 2016-08-05 20:19 | NUR ---
MANUAL BP 82/40, PER DR. AUGUSTE NO INTERVENTION AT THIS TIME. PT RECEIVING CHEST PT AND NEB TX AT THIS TIME AND NO COMPLAINTS.
--- NOTE | 2016-08-05 20:46 | NUR ---
AFTER CHEST PT, PT REQUESTING TO KEEP BED ON PERCUSSION FOR WHOLE NIGHT. BOTH THIS RN AND RESPIRATORY EXPLAINED ORDER IS FOR TWICE A DAY.
--- NOTE | 2016-08-05 22:19 | NUR ---
PT PAD NOTED TO BE SATURATED ? LEAKING FROM ELIAS OR DRAINAGE FROM PRESSURE WOUNDS? DISCUSSED WITH PT ABOUT NEEDING TO TURN AND CHANGE PAD TO SEE WHAT IS GOING ON. PT BECAME ANGRY AND STARTED TO REFUSE DEMANDING PAIN MEDICATION. EXPLAINED IV TYLENOL WAS GIVEN FOR HER PAIN D/T SBP 80'S. PT REFUSING AND DEMANDING TO TALK TO DR OR WILL NOT TURN. NOTIFIED MD AUGUSTE, TO BEDSIDE AND DISCUSSED WITH PT AFTER TURN IF BP IS STABLE AND 02 SAT REMAINS STABLE SHE CAN GIVE ONE TIME DOSE. PT AGREED AND TURNED WITH 3 RN'S. BP CHECKED 100/46, ONE TIME DOSE GIVEN 0.2MG IV. WILL MONITOR.
--- NOTE | 2016-08-05 23:35 | Event Note ---
Event Note Event Note: SITUATION : Low BP Brief : At around 1110 pm she was noted pt have low BP at 70/50, checked again in 10 mins manually also found it to be 70/48... rechecked 68/48... Rest of vitals : HR : 80's o2 sats : 95% on 3 litres PE : alert ,oriented X 3, mild distress c/o pain. Rs : aebe, no adventitous sounds. CVs : s1,s2 +, no gallops PA : soft, nontender. Plan : Will start double concetrated ( due to fluid restrictions) levophed for low BP with goal of MAP > 60,ICU lab bundle, CBC, troponin, EKG stat as she c/o chest tightness. will ct to follow.
[2016-08-06] VITALS: BP 80/48
[2016-08-06 00:25] LABS: ABSOLUTE BASOPHIL COUNT 0 /CUMM (0.0-0.2); ABSOLUTE EOSINOPHIL COUNT 0.1 /CUMM (0.0-0.7); ABSOLUTE GRANULOCYTE CT 11.2 /CUMM (1.4-6.5); ABSOLUTE LYMPH COUNT 0.5 /CUMM (1.2-3.4); ABSOLUTE MONOCYTE COUNT 0.1 /CUMM (0.10-0.60); BASOPHIL % 0.1 % (0.0-2.0); EOSINOPHIL % 0.5 % (0-5); GRANULOCYTE % 94.9 % (42.2-75.2); HEMATOCRIT 31.8 % (37-47); MEAN CORPUSCULAR HGB 26.4 PG (27.0-31.0); MEAN CORPUSCULAR VOLUME 80.2 FL (81.0-99.0); MEAN PLATELET VOLUME 7.9 FL (7.4-10.4); PLATELET COUNT 224 /CUMM (130-400); RBC DISTRIBUTION WIDTH 17.3 % (11.5-14.5); RED BLOOD CELL CT 3.96 /CUMM (4.20-5.40); WHITE BLOOD CELL COUNT 11.8 /CUMM (4.8-10.8)
--- NOTE | 2016-08-06 01:26 | Event Note ---
Event Note Event Note: Notified by nursing staff that patient had somewhat agonal breaths. Patient examined and significantly lethargic. On orientation questioning, she believed she was in her house. Exam showed generalized lethargy, sluggish pupils, and decreased breath sounds bilaterally. Recent ABG from this evening shows metabolic acidosis. Will give narcan once and if mental status does not improve will consider head CT. CXR portable ordered. Signed out all events to AM team.
--- NOTE | 2016-08-06 02:10 | RADIOLOGY REPORT ---
EXAMINATION: XR PORTABLE CHEST CLINICAL INFORMATION: Tachypnea. Decreased mental status. COMPARISON: Chest x-ray 08/05/2016 TECHNIQUE: Portable AP view of the chest was obtained. 1:46 AM FINDINGS: Left IJ catheter tip in superior vena cava. Persistent bilateral alveolar opacities and mild central hilar pulmonary vascular prominence. Persistent moderate volume right pleural effusion. Right basilar infiltrate or atelectasis could be present as well. There is no pneumothorax. IMPRESSION: No significant change since prior chest x-ray. Persistent pulmonary vascular congestion, persistent bilateral airspace disease and persistent right pleural effusion. Possible right basilar infiltrate or atelectasis
[2016-08-06 05:08] LABS: ABSOLUTE BASOPHIL COUNT 0 /CUMM (0.0-0.2); ABSOLUTE EOSINOPHIL COUNT 0.1 /CUMM (0.0-0.7); ABSOLUTE GRANULOCYTE CT 13.9 /CUMM (1.4-6.5); ABSOLUTE LYMPH COUNT 0.5 /CUMM (1.2-3.4); ABSOLUTE MONOCYTE COUNT 0.1 /CUMM (0.10-0.60); BASOPHIL % 0 % (0.0-2.0); EOSINOPHIL % 0.6 % (0-5); GRANULOCYTE % 95.3 % (42.2-75.2); HEMATOCRIT 31.5 % (37-47); MEAN CORPUSCULAR HGB 26.2 PG (27.0-31.0); MEAN CORPUSCULAR HGB CONC 32.6 G/DL (33.0-37.0); MEAN CORPUSCULAR VOLUME 80.3 FL (81.0-99.0); PLATELET COUNT 232 /CUMM (130-400); RBC DISTRIBUTION WIDTH 17.6 % (11.5-14.5); RED BLOOD CELL CT 3.92 /CUMM (4.20-5.40); WHITE BLOOD CELL COUNT 14.6 /CUMM (4.8-10.8)
--- NOTE | 2016-08-06 05:20 | NUR ---
@AROUND 2300 PT AUTO CUFF READING IN 70'S, MANUAL BP 74/40, PT NOTED TO HAVE LABORED BREATHING ON 3LNC SAT 95-97%, AWAKENED PT "WHAT I'M SLEEPING" THEN QUICKY FALLS BACK ASLEEP. DR. AUGUSTE TO BEDSIDE TO ASSESS.
--- NOTE | 2016-08-06 05:30 | NUR ---
@2330 SBP DROPPED INTO'S 60'S NOTIFIED MD AUGUSTE, LEVOPHED DOUBLE CONCENTRATED STARTED AT 1MCG/MIN PLEASE SEE ICU FLOWSHEET FOR TITRATION.
--- NOTE | 2016-08-06 05:39 | NUR ---
AROUND 0100 PT BECOMING MORE LETHARGIC AND AGONAL BREATHS, DR. VALENZUELA TO BEDSIDE TO ASSESS PT, AWAKENED PT AND PT WAS CONFUSED TO PLACE AND TIME AND QUICKLY FELL BACK ASLEEP, DECISION WAS MADE BY MD TO GIVE NARCAN 0.4MG X 1. PT THEN BECAME AGITATED AND TWITCHY, YELLING "I'M GOING TO ", PT BECAME TACHYCARDIC LOW 100'S, SBP REMAINED 90'S TO LOW 100'S. DR. TODD TO BEDSIDE TO DISCUSS NOT BEING ABLE TO MEDICATE WITH DILAUDID. STAT CXRAY ORDERED PER MD. WILL CONTINUE TO MONITOR.
--- NOTE | 2016-08-06 07:57 | PN- Resident CRCU ---
See Addendum Subjective HPI/CRCU Issues: Pt was transferred to ICU from for agonal breathing and decreased responsiveness. She received 0.4 mg Narcan around 2am with good response. She was screaming in pain at 5 am. No further opioids given. When I evaluated her around 7am, she was lethargic, and did not wake up even when I moved her right arm (that she usually would not let us do due to pain). I gave another 0.2 mg narcan. She was more responsive within 30 minutes, even before narcan drip was initiated. No narcan drip given. When the orthopedist doctor, Dr. Schulz evaluated her right arm, and she noted that her ROM was improved and reported less pain. Hence we will hold off further imaging for now, as discussed with Dr. Schulz and Dr. Dunbar. Her blood pressure was also noted to be low, for which levophed was started. Currently on levophed at 8, and we are titrating it down as long as MAP > 65. When her BP was 74/38 on the floor, she received 250 ml NS bolus because she is on 800ml fluid restriction (including meds). Urine toxicology obtained this morning and showed opiate 1417 (not surprising given she was given dilaudid, although her last dose was about 10 hours prior to when urine was obtained, was 1868 9 days prior), methadone 86 (same as utox from 9 days prior), PCP (66.50, >72 prior), benzodiazepine (155, NEVER ORDERED SINCE SHE HAS BEEN HERE, and was <85 9 days ago), cocaine (165, was >1000 prior), cannabis 5.30 (was 43.10 prior). Negative for barbiturate, amphetamines. Given the positive benzo screen although it has not been ordered for her since she has been in the hospital, it is likely that someone is bringing it to her or it is part of her belongings. Apparently, she is using an inhaler from home. Psych has been been aware of this. No one reports that she has a visitor yesterday. Her kidney functions continue to worsen despite fluid restriction. Noted increase in WBC from 11.8 to 14.6 with 6 bands Hyponatremia 123 --> 125 K 5.2 --> 5.4 BUN/Cr 60/2.3 to 66/2.9 24 Hour Events: Max temp 97.7 SR 65-90 RR 14-23 Systolic BP 72-114 Diastolic BP 39-63 CVP 9-13 3L NC Objective Vital Signs & I&O Last 8 Hrs of Vitals and I&O: Intake & Output 08/06 1600 08/06 0800 08/06 0000 Intake Total 557.9 750 Output Total 100 195 Balance 457.9 555 Intake, IV 317.9 390 Intake, Oral 240 360 Number 0 0 Bowel Movements Output, 20 Drainage Output, Urine 100 175 Laboratory Tests 08/06 08/06 08/06 1215 1015 0439 Chemistry Sodium (137 - 145 mmol/L) 125 L Potassium (3.5 - 5.1 mmol/L) 5.4 H Chloride (98 - 107 mmol/L) 98 Carbon Dioxide (22 - 30 mmol/L) 18 L Anion Gap (5 - 16) 8 BUN (7 - 17 mg/dL) 66 H Creatinine (0.5 - 1.0 mg/dL) 2.9 H Estimated GFR (>60 ml/min) 18 L BUN/Creatinine Ratio (7 - 25 %) 22.8 Phosphorus (2.5 - 4.5 mg/dL) 7.1 H Magnesium (1.6 - 2.3 mg/dL) 1.9 Hematology CBC w Diff MAN DIFF ORDERED WBC (4.8 - 10.8 /CUMM) 14.6 H RBC (4.20 - 5.40 /CUMM) 3.92 L Hgb (12.0 - 16.0 G/DL) 10.3 L Hct (37 - 47 %) 31.5 L MCV (81.0 - 99.0 FL) 80.3 L MCH (27.0 - 31.0 PG) 26.2 L RDW (11.5 - 14.5 %) 17.6 H Plt Count (130 - 400 /CUMM) 232 MPV (7.4 - 10.4 FL) 8.0 Gran % (42.2 - 75.2 %) 95.3 H Lymphocytes % (20.5 - 51.1 %) 3.6 L Monocytes % (1.7 - 9.3 %) 0.5 L Eosinophils % (0 - 5 %) 0.6 Basophils % (0.0 - 2.0 %) 0 L Absolute Granulocytes (1.4 - 6.5 /CUMM) 13.9 H Segmented Neutrophils (42.2 - 75.2 %) 86 H Band Neutrophils (0.0 - 5.0 %) 6 H Absolute Lymphocytes (1.2 - 3.4 /CUMM) 0.5 L Lymphocytes (20.5 - 51.1 %) 4 L Monocytes (1.7 - 9.3 %) 3 Absolute Monocytes (0.10 - 0.60 /CUMM) 0.1 L Eosinophils (0 - 5.0 %) 1 Absolute Eosinophils (0.0 - 0.7 /CUMM) 0.1 Absolute Basophils (0.0 - 0.2 /CUMM) 0 Platelet Estimate (ADEQUATE) ADEQUATE Polychromasia 1+ Hypochromic-Microcytic 1+ Poikilocytosis 1+ Basophilic Stippling SLIGHT Ovalocytes 1+ PUBS MCHC (33.0 - 37.0 G/DL) 32.6 L Other Body Source Fld Total RBCs Counted (%) 100 Toxicology Urine Opiates Screen (>2000 NG/ML) 1290.00 1417.00 Methadone Screen (>300 NG/ML) 84 86 Barbiturate Screen (>200 NG/ML) < 60 < 60 Ur Phencyclidine Scrn (>25 NG/ML) 63.50 H 66.50 H Amphetamines Screen (>1000 NG/ML) < 100 < 100 U Benzodiazepines Scrn (>200 NG/ML) 136 155 Urine Cocaine Screen (>300 NG/ML) 167 165 Urine Cannabis Screen (>50 NG/ML) < 5.00 5.30 08/06 08/06 08/06 0035 0006 0005 Blood Gas pH (7.35 - 7.45 PH) 7.26 *L pCO2 (35 - 45 TORR) 38 pO2 (80 - 100 TORR) 73 L HCO3 (21 - 28 MEQ/L) 17 L ABG O2 Sat (Measured) (>96.0 %) 95.0 L P-50 (Temp Corrected) Y Carboxyhemoglobin (1.5 - 5.0 %) 0.3 L O2 Concentration % 3 LPM Temperature (97.0 - 100.0 FARH) 95.6 L O2 Delivery Method N/C Chemistry Lactic Acid (0.7 - 2.1 mmol/L) 2.0 Hematology CBC w Diff MAN DIFF ORDERED WBC (4.8 - 10.8 /CUMM) 11.8 H RBC (4.20 - 5.40 /CUMM) 3.96 L Hgb (12.0 - 16.0 G/DL) 10.5 L Hct (37 - 47 %) 31.8 L MCV (81.0 - 99.0 FL) 80.2 L MCH (27.0 - 31.0 PG) 26.4 L RDW (11.5 - 14.5 %) 17.3 H Plt Count (130 - 400 /CUMM) 224 MPV (7.4 - 10.4 FL) 7.9 Gran % (42.2 - 75.2 %) 94.9 H Lymphocytes % (20.5 - 51.1 %) 4.0 L Monocytes % (1.7 - 9.3 %) 0.5 L Eosinophils % (0 - 5 %) 0.5 Basophils % (0.0 - 2.0 %) 0.1 Absolute Granulocytes (1.4 - 6.5 /CUMM) 11.2 H Segmented Neutrophils (42.2 - 75.2 %) 81 H Band Neutrophils (0.0 - 5.0 %) 8 H Absolute Lymphocytes (1.2 - 3.4 /CUMM) 0.5 L Lymphocytes (20.5 - 51.1 %) 6 L Monocytes (1.7 - 9.3 %) 2 Absolute Monocytes (0.10 - 0.60 /CUMM) 0.1 L Eosinophils (0 - 5.0 %) 2 Absolute Eosinophils (0.0 - 0.7 /CUMM) 0.1 Basophils (0.0 - 2.0 %) 1 Absolute Basophils (0.0 - 0.2 /CUMM) 0 Platelet Estimate (ADEQUATE) ADEQUATE Polychromasia 1+ Poikilocytosis 1+ Ovalocytes 1+ PUBS MCHC (33.0 - 37.0 G/DL) 33.0 Miscellaneous Phlebotomy Draw Site LEFT RADIAL Other Body Source Fld Total RBCs Counted (%) 100 08/05 08/05 2351 1600 Chemistry Sodium (137 - 145 mmol/L) 124 L 123 L Potassium (3.5 - 5.1 mmol/L) 5.3 H 5.2 H Chloride (98 - 107 mmol/L) 98 96 L Carbon Dioxide (22 - 30 mmol/L) 19 L 18 L Anion Gap (5 - 16) 7 9 BUN (7 - 17 mg/dL) 65 H 62 H Creatinine (0.5 - 1.0 mg/dL) 2.9 H 2.6 H Estimated GFR (>60 ml/min) 18 L 20 L BUN/Creatinine Ratio (7 - 25 %) 23.8 Glucose (65 - 99 mg/dL) 74 Calcium (8.4 - 10.2 mg/dL) 7.9 L Phosphorus (2.5 - 4.5 mg/dL) 7.1 H Magnesium (1.6 - 2.3 mg/dL) 1.9 Total Bilirubin (0.2 - 1.3 mg/dL) 0.1 L AST (14 - 36 U/L) 29 ALT (9 - 52 U/L) 27 Troponin I (< 0.11 ng/ml) < 0.01 Albumin (3.5 - 5.0 g/dL) 1.7 L Vital Signs Date Time Temp Pulse Resp B/P Pulse O2 O2 Flow FiO2 Ox Delivery Rate 08/06 1102 Room Air Room Air 08/06 1058 Room Air Room Air 08/06 0950 94 Nasal 4.0L Cannula 08/06 0911 98 Nasal 3.0L Cannula 08/06 0611 88 Nasal 3.0L Cannula 08/06 0400 98 Nasal 3.0L Cannula 08/06 0000 95.6 84 19 80/48 95 Nasal 3.0L Cannula 08/05 2337 85 64/38 08/05 2017 98 Nasal 3.0L Cannula 08/05 2000 95 Nasal 3.0L Cannula 08/05 1602 93 24 80/48 93 Nasal 3.0L Cannula 08/05 1600 Nasal 3.0L Cannula 08/05 1450 98.1 97 22 80/33 89 Nasal 2.0L Cannula 08/05 1425 96 20 76/42 89 Nasal 2.0L Cannula Exam General Appearance: lethargic Head: alopecia , no purulent discharge noted Respiratory: agonal breating Cardiovascular: regular rate/rhythm Gastrointestinal: normal bowel sounds, soft, non-tender Current Medications: Current Medications Sig/Shahla Start time Last Medication Dose Route Stop Time Status Admin Acetaminophen 1,000 MG ONCE ONE 08/06 0145 DC N/A 1 UNIT IV 08/06 015 Acetaminophen 1,000 MG .STK-MED ONE 08/05 1929 DC IV 08/05 1930 Acetaminophen 650 MG Q4 HRS NEEDED PRN 07/31 0800 AC 08/05 PO 0859 Albuterol Sulfate 3 ML BID 08/05 2200 AC 08/06 INH 0958 Albuterol Sulfate 3 ML ONCE PRN 08/04 2230 DC INH Albuterol Sulfate 2 PUF Q4P PRN 07/30 2200 AC 08/05 INH 0249 Collagenase 1 DEMETRA DAILY 08/04 1000 AC 08/06 TOP 1229 Diclofenac Sodium 1 DEMETRA TID PRN 07/30 1145 AC 08/05 TOP 2142 Diphenhydramine HCl 50 MG .STK-MED ONE 08/05 1759 DC IM 08/05 1800 Diphenhydramine HCl 75 MG Q6P PRN 07/31 1100 AC 08/05 PO 1808 Docusate Sodium 100 MG DAILY 07/31 1000 AC 08/06 PO 1027 Enoxaparin Sodium 40 MG DAILY 08/02 1000 AC 08/06 SC 1027 Escitalopram Oxalate 5 MG 0800 08/06 0800 AC 08/06 PO 1229 Hydromorphone HCl 1 MG Q6P PRN 08/06 1345 AC IV Hydromorphone HCl 1 MG ONCE ONE 08/06 1000 DC 08/06 IV 08/06 1001 1030 Hydromorphone HCl 0.2 MG ONCE ONE 08/05 2200 DC 08/05 IV 08/05 2201 2151 Hydromorphone HCl 0.6 MG Q6P PRN 08/05 1530 DC IV Hydromorphone HCl 1 MG Q6P PRN 08/03 1030 DC 08/05 IV 1230 Insulin Aspart 0 TIDAC/HS 08/01 0800 AC 08/05 SC 1346 Insulin Detemir 60 UNITS BID 07/28 2200 AC 08/06 SC 1027 Lidocaine 1 PAT DAILY 07/28 1800 AC 07/28 EXT 2004 Miconazole Nitrate 1 DEMETRA AT BEDTIME 07/29 0130 AC 08/01 VAG 2318 Naloxone HCl 4 MG Q24H 08/06 0845 DC Dextrose/Water 1,000 ML IV Naloxone HCl 0.2 MG ONCE ONE 08/06 0800 DC 08/06 IV 08/06 0801 0753 Naloxone HCl 0.4 MG ONCE ONE 08/06 0130 DC 08/06 IV 08/06 0131 0122 Norepinephrine 8 MG Q24H 08/05 2330 AC 08/05 Sodium Chloride 250 ML IV 2337 Norepinephrine 8 MG .STK-MED ONE 08/05 2328 DC IV 08/05 2329 Oxacillin Sodium 2,000 MG Q4 08/03 1400 AC 08/06 Sodium Chloride 100 ML IV 1027 Oxymetazoline HCl 1 SPRAY Q12 08/03 1518 DC 08/05 ANNETTE 08/05 2201 2142 Pregabalin 150 MG BID 07/28 2200 AC 08/06 PO 1027 Propranolol HCl 10 MG BID 08/05 1000 DC PO Quetiapine Fumarate 100 MG AT BEDTIME PRN 08/05 2200 AC 08/05 PO 2142 Senna/Docusate Sodium 2 TAB DAILY 07/31 1000 AC 08/06 PO 1027 Sertraline HCl 25 MG DAILY 08/05 1000 DC 08/05 PO 1159 Simethicone 80 MG Q6P PRN 08/03 0830 AC 08/03 PO 1001 Sodium Bicarbonate 1,300 MG TID 08/05 1059 AC 08/06 PO 1027 Sodium Chloride 250 ML BOLUS ONE 08/05 1500 DC 08/05 IV 08/05 1559 1456 Impression/Plan Impression/Problem List Impression: 40-year-old lady with a PMH of diabetes, previous right-sided hemorrhagic pleural effusion S/P Pleurx catheter, lytic therapy 2, previous MSSA sepsis likely secondary to pro-line catheter, previous necrotizing fasciitis of the perineum, left pararenal abscess, osteomyelitis of pubic bone, polysubstance abuse, depression, opiate dependence who presented with complaints of right-sided hip pain, found to have pelvic abscess, s/p IR drainage was transferred from to ICU for hypotension, lethargy, and agonal breathing. Her poor mentation could be due to drug overdose (urine toxicology suspicious for drug abuse in the hospital, positive benzo even though it has not been ordered for her since admission) or hypotension (possibly also due to drug overdose). Her mentation improved with narcan although she ends up screaming in pain. Orta: Day #4 Central line: Day #6 Proline scheduled on August 07, at 1030 am ID # Pelvic abscess sp IR drainage * Received vancomycin for 2 days (last dose 08/03 at 4am). Vanc level 31.8 on . Vancomycin 1250 Q12 discontinued based on Dr. Dunbar's and pharmacistMayra's recc. Started oxacillin 2g IV q4 for MSSA on 08/03. Today abx day #6 * Proline scheduled on August 07, at 1030 am. NPO in and lovenox discontinued. Consider imaging/aspiration of right upper extremity under anesthesia as well. * Ceftriaxone has been discontinued after 2 days. * Continue dilaudid 1mg Q6P * For pain, continue Diclofenac, Lyrica 150 bid, Lidocaine patch, Benadryl po 75 q6P * F/U cultures (MSSA) * Plan for discharge to rehab (needs to be on IV abx, hx of drug abuse) * Continue Miconazole * Avoid benzo given hx of benzo dependence * The tube should be open to external gravity drainage via drainage bag. Tube should be flushed Q shift with 10 mL normal saline. Strict output should be measured, not including these flushes. # Right shoulder pain with decreased passive and active ROM (improving) # Right elbow swelling (improving) * Xray and US obtained * Refuses MRI * Appreciate Ortho (Dr. Schulz) input. # The scalp lesion popped 08/02 PM, with purulent drainage noted - Alopecia noted Metabolic # Acute kidney injury most likely due to IV contrast, NSAIDs, hypotension, urinary retention, vancomycin - Noted worsening of BUN/Cr from 31/0.9 on admission to 56/1.9. Kidney functions continued to worsen despite IVF. She is then placed on 800ml fluid restriction with na bicarb tabs 1300 tid. Renal functions 60/2.3 to 66/2.9. - Renal US did not show hydronephrosis * continue 800ml fluid restriction (incl meds) with na bicarb tabs 1300 tid * Appreciate renal input * Celecoxib 100 bid discontinued * Vancomycin discontinued * Orta inserted * No NSAIDs, IV contrast or aminoglycosides # Hyponatremia - Hyponatremia predated renal failure, probably related to ADH release with stress/pain as well as contributed by antidepressants, NSAIDS - 08/03: Na 130 to 121, with glucose around 200. Fena 0.1. Serum osm 290, urine osm 350. * All drips/IV fluids should be put in NS if possible to try and limit free water. # Hyperkalemia - Most likely resultant of renal insufficiency. - 08/04: K improved from 5.6 to 4.6 Cardiovascular # Hypotension (resolved) * Left IJ central line in place * Levophed from 08/01 at 2345 to 08/02 at 1931. Now off. BP stable * Levophed again started on 08/05 at 2330 Psych # Depression * Started Sertraline 25 daily, but discontinued due to hyponatremia. * Started on lexapro on 08/05 * Started Quetiapine 100 mg PO at bedtime, but discontinued due to concerns of causing hypotension, restarted on 08/05 * Continue Propanolol 20 bid (hold if hypotensive) * On the W-10 and the discharge instructions, please ask the receiving facility/ ECF to call and make an intake appointment at [facility], [address] [place] [address], [place], [place] when her discharge date is known, . # Drug abuse Pt transferred to ICU from due to lethargy, agonal breathing and hypotension. 08/06 urine toxicology obtained: opiate 1417 (not surprising given she was given dilaudid, although her last dose was about 10 hours prior to when urine was obtained, was 1868 9 days prior), methadone 86 (same as utox from 9 days prior), PCP (66.50, >72 prior), benzodiazepine (155, NEVER ORDERED SINCE SHE HAS BEEN HERE, and was <85 9 days ago), cocaine (165, was >1000 prior), cannabis 5.30 (was 43.10 prior). Negative for barbiturate, amphetamines. Given the positive benzo screen although it has not been ordered for her since she has been in the hospital, it is likely that someone is bringing it to her or it is part of her belongings. Apparently, she is using an inhaler from home. Psych has been been aware of this. * LIMIT VISITORS Endocrine # Diabetes mellitus * Novolog tidac/qhs * Levemir 60 bid (hold if poor po intake) * Watch blood sugar closely * Consider endo consult Alimentary * Continue Senna, Docusate Skin - Pt refused to be examined on admission and refused to be changed, very reluctant to be turned - On 07/30: wound care nurse Latia noted unstageably pressure injury to right buttocks and stage 2 ulcers on left buttocks. I have not seen it personally myself because she refuses to turn or even move slightly for me, but these ulcers are most likely present on admission Diet: CC3 DVT ppx: alps and Lovenox (on hold for proline tomorrow) FC Consults: ID, psych,renal Labs: bep mag phos for acute kidney injury , cbc for leukocytosis Problem List: 1. Hip pain 2. Arm pain 3. Drug-seeking behavior Pain Ratin Tomorrow's Labs & Rationales: ICU bundle and CBC for leukocytosis and abnormal electrolytes Plan DVT/Prophylaxis: mechanical, pharmacological
[2016-08-06 08:00] VITALS: BP 95/50
--- NOTE | 2016-08-06 10:15 | PN- Nephrology ---
Assessment/Plan Assessment: 1. [place]: ATN post mult insults - no dialysis need yet 2. Acidemia: mixed metabolic & resp; pH still acceptable - continue po Nabicarb 3. Hyponatremia: chronic - no indication hypertonic saline or V2 receptor iva Suggestion: 1. continue Nabicarb 1300 mg tid 3. fluid rstrict 800 ml/day --> total po & IV 4. serial chemistries Subjective Subjective: Events overnight noted --> lethargy & hypotension --> given Narcan & begun on IV NE Now awake - coughing Leaking urine around Orta Objective Vital Signs and I&Os Vital Signs Last systolic BP 110 CVP 9 Date Time Temp Pulse Resp B/P Pulse O2 O2 Flow FiO2 Ox Delivery Rate 08/06 0911 98 Nasal 3.0L Cannula 08/06 0611 88 Nasal 3.0L Cannula 08/06 0400 98 Nasal 3.0L Cannula 08/06 0000 95.6 84 19 80/48 95 Nasal 3.0L Cannula 08/05 2337 85 64/38 08/05 2016 98 Nasal 3.0L Cannula 08/05 2000 95 Nasal 3.0L Cannula 08/05 1602 93 24 80/48 93 Nasal 3.0L Cannula 08/05 1600 Nasal 3.0L Cannula 08/05 1450 98.1 97 22 80/33 89 Nasal 2.0L Cannula 08/05 1425 96 20 76/42 89 Nasal 2.0L Cannula 08/05 1201 93 112/61 08/05 1200 98.9 93 20 112/61 95 Nasal 2.0L Cannula Intake & Output 08/06 1600 08/06 0400 08/05 1600 08/05 0400 08/04 1600 08/04 0400 Intake Total 557.9 750 1830 1324 3900 1754 Output Total 100 195 50 330 277 360 Balance 457.9 555 1070 458 1430 1394 Intake, IV 317.9 390 397 526 7236 1314 Intake, Oral 240 360 880 480 890 440 Number 0 0 0 0 Bowel Movements Output, 20 30 10 0 Drainage Output, Stool 0 Output, Urine 100 175 50 300 267 360 Physical Exam General Appearance: no apparent distress, alert, awake Head: atraumatic Ears, Nose, Throat: normal ENT inspection Neck: L IJ cath Respiratory: rhonchi, poor cooperation Cardiovascular: regular rate/rhythm, friction rub (none heard) Abdomen: soft, non-tender, no organomegaly Extremities: swelling Current Medications: Current Medications Sig/Shahla Start time Last Medication Dose Route Stop Time Status Admin Acetaminophen 1,000 MG ONCE ONE 08/06 0145 DC N/A 1 UNIT IV 08/06 0159 Acetaminophen 1,000 MG .STK-MED ONE 08/05 1930 DC IV 08/05 1931 Acetaminophen 650 MG Q4 HRS NEEDED PRN 07/31 0800 AC 08/05 PO 0859 Albuterol Sulfate 3 ML BID 08/05 2200 AC 08/06 INH 0958 Albuterol Sulfate 3 ML ONCE PRN 08/04 2230 DC INH Albuterol Sulfate 2 PUF Q4P PRN 07/30 2200 AC 08/05 INH 0249 Collagenase 1 DEMETRA DAILY 08/04 1000 AC 08/05 TOP 1202 Diclofenac Sodium 1 DEMETRA TID PRN 07/30 1145 AC 08/05 TOP 2142 Diphenhydramine HCl 50 MG .STK-MED ONE 08/05 1759 DC IM 08/05 1800 Diphenhydramine HCl 100 MG .STK-MED ONE 08/05 1342 DC IM 08/05 1343 Diphenhydramine HCl 75 MG .STK-MED ONE 08/05 1339 DC PO 08/05 1340 Diphenhydramine HCl 75 MG Q6P PRN 07/31 1100 AC 08/05 PO 1808 Docusate Sodium 100 MG DAILY 07/31 1000 AC 08/05 PO 1200 Enoxaparin Sodium 40 MG DAILY 08/02 1000 AC 08/05 SC 1202 Escitalopram Oxalate 5 MG 0800 08/06 0800 AC PO Hydromorphone HCl 1 MG ONCE ONE 08/06 1000 DC IV 08/06 1001 Hydromorphone HCl 0.2 MG ONCE ONE 08/05 2200 DC 08/05 IV 08/05 2201 2151 Hydromorphone HCl 0.6 MG Q6P PRN 08/05 1530 DC IV Hydromorphone HCl 1 MG Q6P PRN 08/03 1030 DC 08/05 IV 1230 Insulin Aspart 0 TIDAC/HS 08/01 0800 AC 08/05 SC 1346 Insulin Detemir 60 UNITS BID 07/28 2200 AC 08/05 SC 1200 Lidocaine 1 PAT DAILY 07/28 1800 AC 07/28 EXT 2004 Miconazole Nitrate 1 DEEMTRA AT BEDTIME 07/29 0130 AC 08/01 VAG 2318 Naloxone HCl 4 MG Q24H 08/06 0845 DC Dextrose/Water 1,000 ML IV Naloxone HCl 0.2 MG ONCE ONE 08/06 0800 DC 08/06 IV 08/06 0801 0753 Naloxone HCl 0.4 MG ONCE ONE 08/06 0130 DC 08/06 IV 08/06 0131 0122 Norepinephrine 8 MG Q24H 08/05 2330 AC 08/05 Sodium Chloride 250 ML IV 2337 Norepinephrine 8 MG .STK-MED ONE 08/05 2328 DC IV 08/05 2329 Oxacillin Sodium 2,000 MG Q4 08/03 1400 AC 08/06 Sodium Chloride 100 ML IV 0614 Oxymetazoline HCl 1 SPRAY Q12 08/03 1518 DC 08/05 ANNETTE 08/05 2201 2142 Pregabalin 150 MG BID 07/28 2200 AC 08/05 PO 2132 Propranolol HCl 10 MG BID 08/05 1000 DC PO Quetiapine Fumarate 100 MG AT BEDTIME PRN 08/05 2200 AC 08/05 PO 2142 Senna/Docusate Sodium 2 TAB DAILY 07/31 1000 AC 08/05 PO 1159 Sertraline HCl 25 MG DAILY 08/05 1000 DC 08/05 PO 1159 Simethicone 80 MG Q6P PRN 08/03 0830 AC 08/03 PO 1001 Sodium Bicarbonate 1,300 MG TID 08/05 1059 AC 08/05 PO 2124 Sodium Bicarbonate 75 MEQ Q6H 08/04 0930 DC 08/05 Dextrose/Sodium 1,000 ML IV 0730 Chloride Sodium Chloride 250 ML BOLUS ONE 08/05 1500 DC 08/05 IV 08/05 1559 1456 Results Pertinent Lab Results: Laboratory Tests 08/06 08/06 0439 0035 Chemistry Sodium (137 - 145 mmol/L) 125 L Potassium (3.5 - 5.1 mmol/L) 5.4 H Chloride (98 - 107 mmol/L) 98 Carbon Dioxide (22 - 30 mmol/L) 18 L Anion Gap (5 - 16) 8 BUN (7 - 17 mg/dL) 66 H Creatinine (0.5 - 1.0 mg/dL) 2.9 H Estimated GFR (>60 ml/min) 18 L BUN/Creatinine Ratio (7 - 25 %) 22.8 Lactic Acid (0.7 - 2.1 mmol/L) 2.0 Phosphorus (2.5 - 4.5 mg/dL) 7.1 H Magnesium (1.6 - 2.3 mg/dL) 1.9 Hematology CBC w Diff MAN DIFF ORDERED WBC (4.8 - 10.8 /CUMM) 14.6 H RBC (4.20 - 5.40 /CUMM) 3.92 L Hgb (12.0 - 16.0 G/DL) 10.3 L Hct (37 - 47 %) 31.5 L MCV (81.0 - 99.0 FL) 80.3 L MCH (27.0 - 31.0 PG) 26.2 L RDW (11.5 - 14.5 %) 17.6 H Plt Count (130 - 400 /CUMM) 232 MPV (7.4 - 10.4 FL) 8.0 Gran % (42.2 - 75.2 %) 95.3 H Lymphocytes % (20.5 - 51.1 %) 3.6 L Monocytes % (1.7 - 9.3 %) 0.5 L Eosinophils % (0 - 5 %) 0.6 Basophils % (0.0 - 2.0 %) 0 L Absolute Granulocytes (1.4 - 6.5 /CUMM) 13.9 H Segmented Neutrophils (42.2 - 75.2 %) 86 H Band Neutrophils (0.0 - 5.0 %) 6 H Absolute Lymphocytes (1.2 - 3.4 /CUMM) 0.5 L Lymphocytes (20.5 - 51.1 %) 4 L Monocytes (1.7 - 9.3 %) 3 Absolute Monocytes (0.10 - 0.60 /CUMM) 0.1 L Eosinophils (0 - 5.0 %) 1 Absolute Eosinophils (0.0 - 0.7 /CUMM) 0.1 Absolute Basophils (0.0 - 0.2 /CUMM) 0 Platelet Estimate (ADEQUATE) ADEQUATE Polychromasia 1+ Hypochromic-Microcytic 1+ Poikilocytosis 1+ Basophilic Stippling SLIGHT Ovalocytes 1+ PUBS MCHC (33.0 - 37.0 G/DL) 32.6 L Other Body Source Fld Total RBCs Counted (%) 100 08/06 08/06 08/05 0006 0005 2351 Blood Gas pH (7.35 - 7.45 PH) 7.26 *L pCO2 (35 - 45 TORR) 38 pO2 (80 - 100 TORR) 73 L HCO3 (21 - 28 MEQ/L) 17 L ABG O2 Sat (Measured) (>96.0 %) 95.0 L P-50 (Temp Corrected) Y Carboxyhemoglobin (1.5 - 5.0 %) 0.3 L O2 Concentration % 3 LPM Temperature (97.0 - 100.0 FARH) 95.6 L O2 Delivery Method N/C Chemistry Sodium (137 - 145 mmol/L) 124 L Potassium (3.5 - 5.1 mmol/L) 5.3 H Chloride (98 - 107 mmol/L) 98 Carbon Dioxide (22 - 30 mmol/L) 19 L Anion Gap (5 - 16) 7 BUN (7 - 17 mg/dL) 65 H Creatinine (0.5 - 1.0 mg/dL) 2.9 H Estimated GFR (>60 ml/min) 18 L Glucose (65 - 99 mg/dL) 74 Calcium (8.4 - 10.2 mg/dL) 7.9 L Phosphorus (2.5 - 4.5 mg/dL) 7.1 H Magnesium (1.6 - 2.3 mg/dL) 1.9 Total Bilirubin (0.2 - 1.3 mg/dL) 0.1 L AST (14 - 36 U/L) 29 ALT (9 - 52 U/L) 27 Troponin I (< 0.11 ng/ml) < 0.01 Albumin (3.5 - 5.0 g/dL) 1.7 L Hematology CBC w Diff MAN DIFF ORDERED WBC (4.8 - 10.8 /CUMM) 11.8 H RBC (4.20 - 5.40 /CUMM) 3.96 L Hgb (12.0 - 16.0 G/DL) 10.5 L Hct (37 - 47 %) 31.8 L MCV (81.0 - 99.0 FL) 80.2 L MCH (27.0 - 31.0 PG) 26.4 L RDW (11.5 - 14.5 %) 17.3 H Plt Count (130 - 400 /CUMM) 224 MPV (7.4 - 10.4 FL) 7.9 Gran % (42.2 - 75.2 %) 94.9 H Lymphocytes % (20.5 - 51.1 %) 4.0 L Monocytes % (1.7 - 9.3 %) 0.5 L Eosinophils % (0 - 5 %) 0.5 Basophils % (0.0 - 2.0 %) 0.1 Absolute Granulocytes (1.4 - 6.5 /CUMM) 11.2 H Segmented Neutrophils (42.2 - 75.2 %) 81 H Band Neutrophils (0.0 - 5.0 %) 8 H Absolute Lymphocytes (1.2 - 3.4 /CUMM) 0.5 L Lymphocytes (20.5 - 51.1 %) 6 L Monocytes (1.7 - 9.3 %) 2 Absolute Monocytes (0.10 - 0.60 /CUMM) 0.1 L Eosinophils (0 - 5.0 %) 2 Absolute Eosinophils (0.0 - 0.7 /CUMM) 0.1 Basophils (0.0 - 2.0 %) 1 Absolute Basophils (0.0 - 0.2 /CUMM) 0 Platelet Estimate (ADEQUATE) ADEQUATE Polychromasia 1+ Poikilocytosis 1+ Ovalocytes 1+ PUBS MCHC (33.0 - 37.0 G/DL) 33.0 Miscellaneous Phlebotomy Draw Site LEFT RADIAL Other Body Source Fld Total RBCs Counted (%) 100 08/05 08/05 08/05 1600 1300 UNK Chemistry Sodium (137 - 145 mmol/L) 123 L Cancelled Cancelled Potassium (3.5 - 5.1 mmol/L) 5.2 H Cancelled Cancelled Chloride (98 - 107 mmol/L) 96 L Cancelled Cancelled Carbon Dioxide (22 - 30 mmol/L) 18 L Cancelled Cancelled Anion Gap (5 - 16) 9 Cancelled Cancelled BUN (7 - 17 mg/dL) 62 H Cancelled Cancelled Creatinine (0.5 - 1.0 mg/dL) 2.6 H Cancelled Cancelled Estimated GFR (>60 ml/min) 20 L BUN/Creatinine Ratio (7 - 25 %) 23.8 Cancelled Glucose Cancelled Calcium Cancelled Phosphorus Cancelled Magnesium Cancelled Total Bilirubin Cancelled AST Cancelled ALT Cancelled Albumin Cancelled 08/05 08/04 0630 1008 Blood Gas pH (7.35 - 7.45 PH) 7.29 *L pCO2 (35 - 45 TORR) 32 L pO2 (80 - 100 TORR) 72 L HCO3 (21 - 28 MEQ/L) 15 L ABG O2 Sat (Measured) (>96.0 %) 94.0 L P-50 (Temp Corrected) N Carboxyhemoglobin (1.5 - 5.0 %) 0.4 L O2 Concentration % .21 Temperature (97.0 - 100.0 FARH) 96.5 L O2 Delivery Method RA Chemistry Sodium (137 - 145 mmol/L) 121 L Potassium (3.5 - 5.1 mmol/L) 5.2 H Chloride (98 - 107 mmol/L) 97 L Carbon Dioxide (22 - 30 mmol/L) 18 L Anion Gap (5 - 16) 6 BUN (7 - 17 mg/dL) 60 H Creatinine (0.5 - 1.0 mg/dL) 2.3 H Estimated GFR (>60 ml/min) 24 L BUN/Creatinine Ratio (7 - 25 %) 26.1 H Phosphorus (2.5 - 4.5 mg/dL) 5.9 H Magnesium (1.6 - 2.3 mg/dL) 1.8 Hematology CBC w Diff MAN DIFF ORDERED WBC (4.8 - 10.8 /CUMM) 9.5 RBC (4.20 - 5.40 /CUMM) 3.60 L Hgb (12.0 - 16.0 G/DL) 9.5 L Hct (37 - 47 %) 29.2 L MCV (81.0 - 99.0 FL) 80.9 L MCH (27.0 - 31.0 PG) 26.3 L RDW (11.5 - 14.5 %) 17.9 H Plt Count (130 - 400 /CUMM) 201 MPV (7.4 - 10.4 FL) 8.4 Gran % (42.2 - 75.2 %) 92.8 H Lymphocytes % (20.5 - 51.1 %) 5.0 L Monocytes % (1.7 - 9.3 %) 1.1 L Eosinophils % (0 - 5 %) 1.0 Basophils % (0.0 - 2.0 %) 0.1 Absolute Granulocytes (1.4 - 6.5 /CUMM) 8.8 H Segmented Neutrophils (42.2 - 75.2 %) 79 H Band Neutrophils (0.0 - 5.0 %) 14 H Absolute Lymphocytes (1.2 - 3.4 /CUMM) 0.5 L Lymphocytes (20.5 - 51.1 %) 4 L Monocytes (1.7 - 9.3 %) 1 L Absolute Monocytes (0.10 - 0.60 /CUMM) 0.1 L Eosinophils (0 - 5.0 %) 2 Absolute Eosinophils (0.0 - 0.7 /CUMM) 0.1 Absolute Basophils (0.0 - 0.2 /CUMM) 0 Platelet Estimate (ADEQUATE) ADEQUATE Anisocytosis 1+ PUBS MCHC (33.0 - 37.0 G/DL) 32.4 L Miscellaneous Phlebotomy Draw Site LEFT RADIAL 08/04 08/03 2219 1530 Chemistry Sodium (137 - 145 mmol/L) 127 L 124 L Potassium (3.5 - 5.1 mmol/L) 4.6 4.8 Chloride (98 - 107 mmol/L) 100 104 Carbon Dioxide (22 - 30 mmol/L) 17 L 14 L Anion Gap (5 - 16) 9 6 BUN (7 - 17 mg/dL) 59 H 56 H Creatinine (0.5 - 1.0 mg/dL) 2.2 H 1.8 H Estimated GFR (>60 ml/min) 25 L 31 L BUN/Creatinine Ratio (7 - 25 %) 26.8 H Glucose (65 - 99 mg/dL) 104 H Calcium (8.4 - 10.2 mg/dL) 7.6 L Phosphorus (2.5 - 4.5 mg/dL) 4.8 H 4.6 H Magnesium (1.6 - 2.3 mg/dL) 1.9 1.8 Total Bilirubin (0.2 - 1.3 mg/dL) 0.2 AST (14 - 36 U/L) 22 ALT (9 - 52 U/L) 28 Albumin (3.5 - 5.0 g/dL) 1.7 L Hematology CBC w Diff MAN DIFF ORDERED WBC (4.8 - 10.8 /CUMM) 11.4 H RBC (4.20 - 5.40 /CUMM) 3.85 L Hgb (12.0 - 16.0 G/DL) 10.1 L Hct (37 - 47 %) 31.2 L MCV (81.0 - 99.0 FL) 81.1 MCH (27.0 - 31.0 PG) 26.3 L RDW (11.5 - 14.5 %) 17.7 H Plt Count (130 - 400 /CUMM) 216 MPV (7.4 - 10.4 FL) 8.1 Gran % (42.2 - 75.2 %) 95.6 H Lymphocytes % (20.5 - 51.1 %) 2.9 L Monocytes % (1.7 - 9.3 %) 0.4 L Eosinophils % (0 - 5 %) 1.0 Basophils % (0.0 - 2.0 %) 0.1 Absolute Granulocytes (1.4 - 6.5 /CUMM) 10.9 H Segmented Neutrophils (42.2 - 75.2 %) 84 H Band Neutrophils (0.0 - 5.0 %) 11 H Absolute Lymphocytes (1.2 - 3.4 /CUMM) 0.3 L Lymphocytes (20.5 - 51.1 %) 3 L Monocytes (1.7 - 9.3 %) 2 Absolute Monocytes (0.10 - 0.60 /CUMM) 0 L Absolute Eosinophils (0.0 - 0.7 /CUMM) 0.1 Absolute Basophils (0.0 - 0.2 /CUMM) 0 Platelet Estimate (ADEQUATE) ADEQUATE Hypochromic-Microcytic 1+ Ovalocytes 1+ PUBS MCHC (33.0 - 37.0 G/DL) 32.5 L 08/03 08/03 1040 1040 Urines Urine Color (YEL,AMB,STR) YEL Urine Clarity (CLEAR) HAZY H Urine pH (5.0 - 8.0) 6.5 Ur Specific [place] (1.001 - 1.035) 1.010 Urine Protein (NEG,<30 MG/DL) TRACE H Urine Ketones (NEG) NEG Urine Nitrite (NEG) POS H Urine Bilirubin (NEG) NEG Urine Urobilinogen (0.1 - 1.0 EU/dl) 0.2 Ur Leukocyte Esterase (NEG) SMALL H Ur Microscopic SEDIMENT EXAMINED Urine RBC (0 - 5 /HPF) 3-5 Urine WBC (0 - 2 /HPF) 10-15 H Ur Epithelial Cells (NONE,FEW) RARE Urine Bacteria (NEG/NONE) MANY H Urine Hemoglobin (NEG) NEG Urine Osmolality (300 - 1000 MOSM/KG) 350 Ur Random Creatinine (mg/dL) 101.6 Ur Random Sodium (30 - 90 mmol/L) 8 L Ur Random Potassium (mmol/L) 28.9 Fraction Sodium Excret (<1% %) 0.1 Urine Glucose (N MG/DL) NEG
--- NOTE | 2016-08-06 10:50 | PN- Infect Dx ---
Subjective Subjective: Afebrile. Recent events noted with transfer to ICU because of hypotension, requiring Levophed, and with decreased responsiveness overnight, requiring Narcan. She continues to complain of pain all over. Objective Last 24 Hrs of Vital Signs/I&O Vital Signs Date Time Temp Pulse Resp B/P Pulse O2 O2 Flow FiO2 Ox Delivery Rate 08/06 0911 98 Nasal 3.0L Cannula 08/06 0611 88 Nasal 3.0L Cannula 08/06 0400 98 Nasal 3.0L Cannula 08/06 0000 95.6 84 19 80/48 95 Nasal 3.0L Cannula 08/05 2337 85 64/38 08/05 2017 98 Nasal 3.0L Cannula 08/05 2000 95 Nasal 3.0L Cannula 08/05 1602 93 24 80/48 93 Nasal 3.0L Cannula 08/05 1600 Nasal 3.0L Cannula 08/05 1450 98.1 97 22 80/33 89 Nasal 2.0L Cannula 08/05 1425 96 20 76/42 89 Nasal 2.0L Cannula 08/05 1201 93 112/61 08/05 1200 98.9 93 20 112/61 95 Nasal 2.0L Cannula Intake & Output 08/06 1600 08/06 0800 08/06 0000 Intake Total 557.9 750 Output Total 100 195 Balance 457.9 555 Intake, IV 317.9 390 Intake, Oral 240 360 Number 0 0 Bowel Movements Output, 20 Drainage Output, Urine 100 175 Physical Exam Other Physical Findings: She is awake and alert in no acute distress Neck left IJ triple lumen catheter with no inflammation at the site Lungs scattered rhonchi bilaterally Heart regular rhythm with no murmur Abdomen lower abdominal catheter in place with 50 mL output yesterday Extremities decreased erythema and edema of the right forearm and elbow, with decreased tenderness on palpation and good range of motion; right shoulder with no evidence of inflammation; right hip with no inflammation, able to move with decreased resistance Orta catheter remains in place Results Last 24 Hours of Lab Results: Laboratory Tests 08/06 08/06 08/06 1015 0439 0035 Chemistry Sodium (137 - 145 mmol/L) 125 L Potassium (3.5 - 5.1 mmol/L) 5.4 H Chloride (98 - 107 mmol/L) 98 Carbon Dioxide (22 - 30 mmol/L) 18 L Anion Gap (5 - 16) 8 BUN (7 - 17 mg/dL) 66 H Creatinine (0.5 - 1.0 mg/dL) 2.9 H Estimated GFR (>60 ml/min) 18 L BUN/Creatinine Ratio (7 - 25 %) 22.8 Lactic Acid (0.7 - 2.1 mmol/L) 2.0 Phosphorus (2.5 - 4.5 mg/dL) 7.1 H Magnesium (1.6 - 2.3 mg/dL) 1.9 Hematology CBC w Diff MAN DIFF ORDERED WBC (4.8 - 10.8 /CUMM) 14.6 H RBC (4.20 - 5.40 /CUMM) 3.92 L Hgb (12.0 - 16.0 G/DL) 10.3 L Hct (37 - 47 %) 31.5 L MCV (81.0 - 99.0 FL) 80.3 L MCH (27.0 - 31.0 PG) 26.2 L RDW (11.5 - 14.5 %) 17.6 H Plt Count (130 - 400 /CUMM) 232 MPV (7.4 - 10.4 FL) 8.0 Gran % (42.2 - 75.2 %) 95.3 H Lymphocytes % (20.5 - 51.1 %) 3.6 L Monocytes % (1.7 - 9.3 %) 0.5 L Eosinophils % (0 - 5 %) 0.6 Basophils % (0.0 - 2.0 %) 0 L Absolute Granulocytes (1.4 - 6.5 /CUMM) 13.9 H Segmented Neutrophils (42.2 - 75.2 %) 86 H Band Neutrophils (0.0 - 5.0 %) 6 H Absolute Lymphocytes (1.2 - 3.4 /CUMM) 0.5 L Lymphocytes (20.5 - 51.1 %) 4 L Monocytes (1.7 - 9.3 %) 3 Absolute Monocytes (0.10 - 0.60 /CUMM) 0.1 L Eosinophils (0 - 5.0 %) 1 Absolute Eosinophils (0.0 - 0.7 /CUMM) 0.1 Absolute Basophils (0.0 - 0.2 /CUMM) 0 Platelet Estimate (ADEQUATE) ADEQUATE Polychromasia 1+ Hypochromic-Microcytic 1+ Poikilocytosis 1+ Basophilic Stippling SLIGHT Ovalocytes 1+ PUBS MCHC (33.0 - 37.0 G/DL) 32.6 L Other Body Source Fld Total RBCs Counted (%) 100 Toxicology Methadone Screen (>300 NG/ML) Pending Barbiturate Screen (>200 NG/ML) Pending Ur Phencyclidine Scrn (>25 NG/ML) Pending Amphetamines Screen (>1000 NG/ML) Pending U Benzodiazepines Scrn (>200 NG/ML) Pending Urine Cocaine Screen (>300 NG/ML) Pending Urine Cannabis Screen (>50 NG/ML) Pending 08/06 08/06 08/05 0006 0005 2351 Blood Gas pH (7.35 - 7.45 PH) 7.26 *L pCO2 (35 - 45 TORR) 38 pO2 (80 - 100 TORR) 73 L HCO3 (21 - 28 MEQ/L) 17 L ABG O2 Sat (Measured) (>96.0 %) 95.0 L P-50 (Temp Corrected) Y Carboxyhemoglobin (1.5 - 5.0 %) 0.3 L O2 Concentration % 3 LPM Temperature (97.0 - 100.0 FARH) 95.6 L O2 Delivery Method N/C Chemistry Sodium (137 - 145 mmol/L) 124 L Potassium (3.5 - 5.1 mmol/L) 5.3 H Chloride (98 - 107 mmol/L) 98 Carbon Dioxide (22 - 30 mmol/L) 19 L Anion Gap (5 - 16) 7 BUN (7 - 17 mg/dL) 65 H Creatinine (0.5 - 1.0 mg/dL) 2.9 H Estimated GFR (>60 ml/min) 18 L Glucose (65 - 99 mg/dL) 74 Calcium (8.4 - 10.2 mg/dL) 7.9 L Phosphorus (2.5 - 4.5 mg/dL) 7.1 H Magnesium (1.6 - 2.3 mg/dL) 1.9 Total Bilirubin (0.2 - 1.3 mg/dL) 0.1 L AST (14 - 36 U/L) 29 ALT (9 - 52 U/L) 27 Troponin I (< 0.11 ng/ml) < 0.01 Albumin (3.5 - 5.0 g/dL) 1.7 L Hematology CBC w Diff MAN DIFF ORDERED WBC (4.8 - 10.8 /CUMM) 11.8 H RBC (4.20 - 5.40 /CUMM) 3.96 L Hgb (12.0 - 16.0 G/DL) 10.5 L Hct (37 - 47 %) 31.8 L MCV (81.0 - 99.0 FL) 80.2 L MCH (27.0 - 31.0 PG) 26.4 L RDW (11.5 - 14.5 %) 17.3 H Plt Count (130 - 400 /CUMM) 224 MPV (7.4 - 10.4 FL) 7.9 Gran % (42.2 - 75.2 %) 94.9 H Lymphocytes % (20.5 - 51.1 %) 4.0 L Monocytes % (1.7 - 9.3 %) 0.5 L Eosinophils % (0 - 5 %) 0.5 Basophils % (0.0 - 2.0 %) 0.1 Absolute Granulocytes (1.4 - 6.5 /CUMM) 11.2 H Segmented Neutrophils (42.2 - 75.2 %) 81 H Band Neutrophils (0.0 - 5.0 %) 8 H Absolute Lymphocytes (1.2 - 3.4 /CUMM) 0.5 L Lymphocytes (20.5 - 51.1 %) 6 L Monocytes (1.7 - 9.3 %) 2 Absolute Monocytes (0.10 - 0.60 /CUMM) 0.1 L Eosinophils (0 - 5.0 %) 2 Absolute Eosinophils (0.0 - 0.7 /CUMM) 0.1 Basophils (0.0 - 2.0 %) 1 Absolute Basophils (0.0 - 0.2 /CUMM) 0 Platelet Estimate (ADEQUATE) ADEQUATE Polychromasia 1+ Poikilocytosis 1+ Ovalocytes 1+ PUBS MCHC (33.0 - 37.0 G/DL) 33.0 Miscellaneous Phlebotomy Draw Site LEFT RADIAL Other Body Source Fld Total RBCs Counted (%) 100 08/05 08/05 1600 1300 Chemistry Sodium (137 - 145 mmol/L) 123 L Cancelled Potassium (3.5 - 5.1 mmol/L) 5.2 H Cancelled Chloride (98 - 107 mmol/L) 96 L Cancelled Carbon Dioxide (22 - 30 mmol/L) 18 L Cancelled Anion Gap (5 - 16) 9 Cancelled BUN (7 - 17 mg/dL) 62 H Cancelled Creatinine (0.5 - 1.0 mg/dL) 2.6 H Cancelled Estimated GFR (>60 ml/min) 20 L BUN/Creatinine Ratio (7 - 25 %) 23.8 Cancelled Last 24 Hours of [place] Results: No recent cultures Recent Imaging Studies: Chest x-ray August 06 no significant change with persistent pulmonary vascular congestion and bilateral airspace disease with right pleural effusion and right basilar density Assessment/Plan Impression: Condition remains poor with borderline hypotension, requiring Levophed, worsening renal function and now increasing white blood cell count despite treatment with Oxacillin for a pelvic abscess secondary to MSSA, most likely related to her previous sepsis, with possible seeding of the pubic rami fracture , status post drainage 5 days ago. Her right upper extremity inflammation appears to be improved and it is not clear if this is secondary to her recent trauma or if it represents seeding of the soft tissues, including muscles, of this area. Her renal failure persists and is likely multifactorial, with sepsis, urinary retention, for which a Orta catheter was inserted, contrast from the CT scan and medications. Her intermittent lethargy and response to Narcan suggests the possibility of extraneous opiate abuse. Suggestion: 1. Consider CT of the right elbow and forearm if her inflammation does not continue to improve 2. Further management of her fluid status per Renal 3. Follow-up urine tox screen 4. Await placement of Pro-Line catheter so that her left IJ triple-lumen catheter can be removed 5. Continue Oxacillin
--- NOTE | 2016-08-06 14:37 | PN- Orthopedic ---
Subjective Subjective: Patient seen and examined earlier today. She was moved back to the ICU over night for hypotension and started on Levophed. Continues to be somnolent and per RN, aggressive at times. Today she states that her arm still hurts, but her hip/pelvis is bothering her more. Afebrile but WBC elevated as compared to previous few days. Pelvic drain put out ~50cc fluid. Continues on Oxacillin. Objective Vital Signs and I&Os Vital Signs Date Time Temp Pulse Resp B/P Pulse O2 O2 Flow FiO2 Ox Delivery Rate 08/06 1102 Room Air Room Air 08/06 1058 Room Air Room Air 08/06 0950 94 Nasal 4.0L Cannula 08/06 0911 98 Nasal 3.0L Cannula 08/06 0611 88 Nasal 3.0L Cannula 08/06 0400 98 Nasal 3.0L Cannula 08/06 0000 95.6 84 19 80/48 95 Nasal 3.0L Cannula 08/05 2337 85 64/38 08/05 2016 98 Nasal 3.0L Cannula 08/05 2000 95 Nasal 3.0L Cannula 08/05 1602 93 24 80/48 93 Nasal 3.0L Cannula 08/05 1600 Nasal 3.0L Cannula 08/05 1450 98.1 97 22 80/33 89 Nasal 2.0L Cannula Intake & Output 08/06 1600 08/06 0800 08/06 0000 08/05 1600 08/05 0800 08/05 0000 Intake Total 557.9 750 3532 457 8309 Output Total 100 195 50 330 Balance 457.9 555 1350 430 994 Intake, IV 317.9 390 950 844 Intake, Oral 240 360 400 480 480 Number 0 0 0 Bowel Movements Output, 20 30 Drainage Output, Urine 100 175 50 300 Physical Exam: RUE: Improvement in cellulitis over right forearm/elbow as compared to yesterday; cellulitis appears to be regressing from skin markers proximally and distally. No streaking. Superficial abrasions/wounds over right axilla and right shoulder, no purulence or surrounding erythema. No right shoulder tenderness on examination. Active elbow flexion and extension without pain; flexion to 95 deg and full extension. Patient states extension is more comfortable. Skin appears dry. Sensation intact to light touch over hand and fingers. 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 Palpable radial pulse. Assessment/Plan Assessment/Plan 40yo F with complicated medical condition; s/p percutaneous drainage of right pelvic abscess (cultures MSSA, currently on Oxacillin). Improvement in right arm cellulitis; good elbow range of motion. Recommend continuing to observe right arm at this time; if cellulitis worsens, may consider CT scan of arm to looks for abscess/collections given her prior history of soft tissue abscesses. Will continue to follow.
--- NOTE | 2016-08-06 15:12 | PN- CRCU ---
Subjective HPI/Critical Care Issues: pt seen and examined on levophed at night significant pain responds to dilaudid awake and arouslabe no other events Objective Current Medications: Current Medications Sig/Shahla Start time Last Medication Dose Route Stop Time Status Admin Acetaminophen 1,000 MG ONCE ONE 08/06 0145 DC N/A 1 UNIT IV 08/06 0159 Acetaminophen 1,000 MG .STK-MED ONE 08/05 1930 DC IV 08/05 1931 Acetaminophen 650 MG Q4 HRS NEEDED PRN 07/31 0800 AC 08/05 PO 0859 Albuterol Sulfate 3 ML BID 08/05 2200 AC 08/06 INH 0958 Albuterol Sulfate 3 ML ONCE PRN 08/04 2230 DC INH Albuterol Sulfate 2 PUF Q4P PRN 07/30 220 AC 08/05 INH 0249 Collagenase 1 DEMETRA DAILY 08/04 1000 AC 08/06 TOP 1229 Diclofenac Sodium 1 DEMETRA TID PRN 07/30 1145 AC 08/05 TOP 2142 Diphenhydramine HCl 50 MG .STK-MED ONE 08/05 1759 DC IM 08/05 1800 Diphenhydramine HCl 75 MG Q6P PRN 07/31 1100 AC 08/05 PO 1808 Docusate Sodium 100 MG DAILY 07/31 1000 AC 08/06 PO 1027 Enoxaparin Sodium 40 MG DAILY 08/02 1000 DC 08/06 SC 1027 Escitalopram Oxalate 5 MG 0800 08/06 0800 AC 08/06 PO 1229 Hydromorphone HCl 1 MG Q6P PRN 08/06 1345 DC IV Hydromorphone HCl 1 MG ONCE ONE 08/06 1000 DC 08/06 IV 08/06 1001 1030 Hydromorphone HCl 0.2 MG ONCE ONE 08/05 2200 DC 08/05 IV 08/05 220 2151 Hydromorphone HCl 0.6 MG Q6P PRN 08/05 1530 DC IV Hydromorphone HCl 1 MG Q6P PRN 08/03 1030 DC 08/05 IV 1230 Insulin Aspart 0 TIDAC/HS 08/01 0800 AC 08/05 SC 1346 Insulin Detemir 60 UNITS BID 07/28 2200 AC 08/06 SC 1027 Lidocaine 1 PAT DAILY 07/28 1800 AC 07/28 EXT 2004 Miconazole Nitrate 1 DEMETRA AT BEDTIME 07/29 0130 AC 08/01 VAG 2318 Naloxone HCl 4 MG Q24H 08/06 0845 DC Dextrose/Water 1,000 ML IV Naloxone HCl 0.2 MG ONCE ONE 08/06 0800 DC 08/06 IV 08/06 0801 0753 Naloxone HCl 0.4 MG ONCE ONE 08/06 0130 DC 08/06 IV 08/06 0131 0122 Norepinephrine 8 MG Q24H 08/05 2330 AC 08/05 Sodium Chloride 250 ML IV 2337 Norepinephrine 8 MG .STK-MED ONE 08/05 2328 DC IV 08/05 2329 Oxacillin Sodium 2,000 MG Q4 08/03 1400 AC 08/06 Sodium Chloride 100 ML IV 1420 Oxymetazoline HCl 1 SPRAY Q12 08/03 1518 DC 08/05 ANNETTE 08/05 2201 2142 Pregabalin 150 MG BID 07/28 2200 AC 08/06 PO 1027 Propranolol HCl 10 MG BID 08/05 1000 DC PO Quetiapine Fumarate 100 MG AT BEDTIME PRN 08/05 2200 AC 08/05 PO 2142 Senna/Docusate Sodium 2 TAB DAILY 07/31 1000 AC 08/06 PO 1027 Sertraline HCl 25 MG DAILY 08/05 1000 DC 08/05 PO 1159 Simethicone 80 MG Q6P PRN 08/03 0830 AC 08/03 PO 1001 Sodium Bicarbonate 1,300 MG TID 08/05 1059 AC 08/06 PO 1027 Sodium Chloride 250 ML BOLUS ONE 08/05 1500 DC 08/05 IV 08/05 1559 1456 Vital Signs & I&O Last 24 Hrs of Vitals and I&O: Vital Signs Date Time Temp Pulse Resp B/P Pulse O2 O2 Flow FiO2 Ox Delivery Rate 08/06 1200 100 Nasal 5.0L Cannula 08/06 1102 Room Air Room Air 08/06 1058 Room Air Room Air 08/06 0950 94 Nasal 4.0L Cannula 08/06 0911 98 Nasal 3.0L Cannula 08/06 0611 88 Nasal 3.0L Cannula 08/06 0400 98 Nasal 3.0L Cannula 08/06 0000 95.6 84 19 80/48 95 Nasal 3.0L Cannula 08/05 2337 85 64/38 08/05 2016 98 Nasal 3.0L Cannula 08/06 1999 95 Nasal 3.0L Cannula 08/05 1602 93 24 80/48 93 Nasal 3.0L Cannula 08/05 1600 Nasal 3.0L Cannula Intake & Output 08/06 1600 08/06 0800 08/06 0000 Intake Total 667 557.9 750 Output Total 250 100 195 Balance 417 457.9 555 Intake, IV 307 317.9 390 Intake, Oral 360 240 360 Number 0 0 Bowel Movements Output, 20 Drainage Output, Urine 250 100 175 Exam Other Physical Findings: gen awake alert heent ncat, left IJ cvs s1, s2 lungs diminished bases abd diffuse tendereness ext no edema Results Last 24 Hrs of Lab Results: Laboratory Tests 08/06/16 1215: Urine Opiates Screen 1290.00, Methadone Screen 84, Barbiturate Screen < 60, Ur Phencyclidine Scrn 63.50 H, Amphetamines Screen < 100, U Benzodiazepines Scrn 136, Urine Cocaine Screen 167, Urine Cannabis Screen < 5.00 08/06/16 1015: Urine Opiates Screen 1417.00, Methadone Screen 86, Barbiturate Screen < 60, Ur Phencyclidine Scrn 66.50 H, Amphetamines Screen < 100, U Benzodiazepines Scrn 155, Urine Cocaine Screen 165, Urine Cannabis Screen 5.30 08/06/16 0439: Anion Gap 8, Estimated GFR 18 L, BUN/Creatinine Ratio 22.8, Phosphorus 7.1 H, Magnesium 1.9, CBC w Diff MAN DIFF ORDERED, RBC 3.92 L, MCV 80.3 L, MCH 26.2 L, RDW 17.6 H, MPV 8.0, Gran % 95.3 H, Lymphocytes % 3.6 L, Monocytes % 0.5 L, Eosinophils % 0.6, Basophils % 0 L, Absolute Granulocytes 13.9 H, Segmented Neutrophils 86 H, Band Neutrophils 6 H, Absolute Lymphocytes 0.5 L, Lymphocytes 4 L, Monocytes 3, Absolute Monocytes 0.1 L, Eosinophils 1, Absolute Eosinophils 0.1, Absolute Basophils 0, Platelet Estimate ADEQUATE, Polychromasia 1+, Hypochromic-Microcytic 1+, Poikilocytosis 1+, Basophilic Stippling SLIGHT, Ovalocytes 1+, PUBS MCHC 32.6 L, Fld Total RBCs Counted 100 08/06/16 0035: Lactic Acid 2.0 08/06/16 0006: CBC w Diff MAN DIFF ORDERED, RBC 3.96 L, MCV 80.2 L, MCH 26.4 L, RDW 17.3 H, MPV 7.9, Gran % 94.9 H, Lymphocytes % 4.0 L, Monocytes % 0.5 L, Eosinophils % 0.5, Basophils % 0.1, Absolute Granulocytes 11.2 H, Segmented Neutrophils 81 H , Band Neutrophils 8 H, Absolute Lymphocytes 0.5 L, Lymphocytes 6 L, Monocytes 2, Absolute Monocytes 0.1 L, Eosinophils 2, Absolute Eosinophils 0.1, Basophils 1, Absolute Basophils 0, Platelet Estimate ADEQUATE, Polychromasia 1+, Poikilocytosis 1+, Ovalocytes 1+, PUBS MCHC 33.0, Fld Total RBCs Counted 100 08/06/16 0005: pH 7.26 *L, pCO2 38, pO2 73 L, HCO3 17 L, ABG O2 Sat (Measured) 95.0 L, P-50 (Temp Corrected) Y, Carboxyhemoglobin 0.3 L, O2 Concentration % 3 LPM, Temperature 95.6 L, O2 Delivery Method N/C, Phlebotomy Draw Site LEFT RADIAL 08/05/16 2351: Anion Gap 7, Estimated GFR 18 L, Glucose 74, Calcium 7.9 L, Phosphorus 7.1 H, Magnesium 1.9, Total Bilirubin 0.1 L, AST 29, ALT 27, Troponin I < 0.01, Albumin 1.7 L 08/05/16 1600: Anion Gap 9, Estimated GFR 20 L, BUN/Creatinine Ratio 23.8 Impression/Plan Impression/Plan Impression/Plan: Impression 40 year old woman - hx of multiple collections/pus, MSSA - loculated right pleural effusion chronic - hyponatremia - [place] Plan - oxacillin, ID following - nephrology consultation appreciated - pain control - hemodynamic monitoring - levophed to goal MAP of >65 - monitor mag, phos, k and replete as needed - finger stick monitoring - DVT prophylaxis - Dilaudid for pain TTS 35 min
[2016-08-06 16:00] VITALS: BP 82/50
--- NOTE | 2016-08-06 20:04 | NUR ---
1600: Received patient drowsy/arousable, oriented to person and place but not time when aroused. Falling asleep while talking. Complaining of pain intermittently but not staying awake long enough to score the pain. Blood pressure noted to be 84 systolic. Levophed running through [place] of [place] [facility] and titrated per EMAR. Blood sugar checked at this time to be 52. Dr. Valenzuela made aware and 1 amp of D50 given. 1700: BLood sugar rechecked to be 64. Patient is more awake and eating her dinner. Continuing to prompt her to eat and keep her awake. Drank her glucerna as well. Blood sugar rechecked at 1850 to be 87.
[2016-08-07] VITALS: BP 120/60
[2016-08-07 05:13] LABS: ABSOLUTE BASOPHIL COUNT 0 /CUMM (0.0-0.2); ABSOLUTE EOSINOPHIL COUNT 0.1 /CUMM (0.0-0.7); ABSOLUTE GRANULOCYTE CT 11.9 /CUMM (1.4-6.5); ABSOLUTE LYMPH COUNT 0.5 /CUMM (1.2-3.4); ABSOLUTE MONOCYTE COUNT 0.1 /CUMM (0.10-0.60); BASOPHIL % 0 % (0.0-2.0); EOSINOPHIL % 0.9 % (0-5); GRANULOCYTE % 94.6 % (42.2-75.2); HEMATOCRIT 29.2 % (37-47); MEAN CORPUSCULAR HGB 26.3 PG (27.0-31.0); MEAN CORPUSCULAR HGB CONC 32.8 G/DL (33.0-37.0); MEAN CORPUSCULAR VOLUME 80.3 FL (81.0-99.0); MEAN PLATELET VOLUME 7.9 FL (7.4-10.4); PLATELET COUNT 272 /CUMM (130-400); RBC DISTRIBUTION WIDTH 17.8 % (11.5-14.5); RED BLOOD CELL CT 3.64 /CUMM (4.20-5.40); WHITE BLOOD CELL COUNT 12.6 /CUMM (4.8-10.8)
--- NOTE | 2016-08-07 07:03 | PN- Resident CRCU ---
Subjective HPI/CRCU Issues: When I saw her around 7am this morning, she was lethargic but arousable. Around 8am, she was wide awake and screaming for pain meds. Plan for proline placement today. She is NPO. Currently tritrating down her levo for goal MAP > 65. WBC 14.6 to 12.6, Hb 10.3 to 9.6, Na 125 to 131, k 5.4 to 4.9, bun/cr 66/2.9 --> 66/2.3. AG 8 --> 11. Glucose 66,74,87, 64, 52. Given dextrose X 1. I discontinued levemir. As her kidney functions and sodium improving, will inc fluid allowance to 1200ml /day when she comes back from her procedure. 24 Hour Events: Max temp 98.7 SR-St 96 - 108 RR 14-20 Systolic BP 95-103 Diastolic BP 50-63 +1813 -1650 Objective Vital Signs & I&O Last 8 Hrs of Vitals and I&O: Intake & Output 08/07 1600 08/07 0800 08/07 0000 Intake Total 330 646 Output Total 700 700 Balance -370 -54 Intake, IV 330 226 Intake, Oral 420 Output, Urine 700 700 Laboratory Tests 08/07 08/06 08/06 0353 1215 1015 Chemistry Sodium (137 - 145 mmol/L) 131 L Potassium (3.5 - 5.1 mmol/L) 4.9 Chloride (98 - 107 mmol/L) 101 Carbon Dioxide (22 - 30 mmol/L) 19 L Anion Gap (5 - 16) 11 BUN (7 - 17 mg/dL) 66 H Creatinine (0.5 - 1.0 mg/dL) 2.3 H Estimated GFR (>60 ml/min) 24 L Glucose (65 - 99 mg/dL) 66 Calcium (8.4 - 10.2 mg/dL) 8.1 L Phosphorus (2.5 - 4.5 mg/dL) 7.2 H Magnesium (1.6 - 2.3 mg/dL) 2.0 Total Bilirubin (0.2 - 1.3 mg/dL) 0.1 L AST (14 - 36 U/L) 47 H ALT (9 - 52 U/L) 40 Albumin (3.5 - 5.0 g/dL) 1.8 L Hematology CBC w Diff MAN DIFF ORDERED WBC (4.8 - 10.8 /CUMM) 12.6 H RBC (4.20 - 5.40 /CUMM) 3.64 L Hgb (12.0 - 16.0 G/DL) 9.6 L Hct (37 - 47 %) 29.2 L MCV (81.0 - 99.0 FL) 80.3 L MCH (27.0 - 31.0 PG) 26.3 L RDW (11.5 - 14.5 %) 17.8 H Plt Count (130 - 400 /CUMM) 272 MPV (7.4 - 10.4 FL) 7.9 Gran % (42.2 - 75.2 %) 94.6 H Lymphocytes % (20.5 - 51.1 %) 4.0 L Monocytes % (1.7 - 9.3 %) 0.5 L Eosinophils % (0 - 5 %) 0.9 Basophils % (0.0 - 2.0 %) 0 L Absolute Granulocytes (1.4 - 6.5 /CUMM) 11.9 H Segmented Neutrophils (42.2 - 75.2 %) 91 H Band Neutrophils (0.0 - 5.0 %) 7 H Absolute Lymphocytes (1.2 - 3.4 /CUMM) 0.5 L Lymphocytes (20.5 - 51.1 %) 2 L Absolute Monocytes (0.10 - 0.60 /CUMM) 0.1 L Absolute Eosinophils (0.0 - 0.7 /CUMM) 0.1 Absolute Basophils (0.0 - 0.2 /CUMM) 0 Platelet Estimate (ADEQUATE) ADEQUATE Polychromasia 1+ Hypochromic-Microcytic 1+ Poikilocytosis 1+ Ovalocytes 1+ PUBS MCHC (33.0 - 37.0 G/DL) 32.8 L Other Body Source Fld Total RBCs Counted (%) 100 Toxicology Urine Opiates Screen (>2000 NG/ML) 1290.00 1417.00 Methadone Screen (>300 NG/ML) 84 86 Barbiturate Screen (>200 NG/ML) < 60 < 60 Ur Phencyclidine Scrn (>25 NG/ML) 63.50 H 66.50 H Amphetamines Screen (>1000 NG/ML) < 100 < 100 U Benzodiazepines Scrn (>200 NG/ML) 136 155 Urine Cocaine Screen (>300 NG/ML) 167 165 Urine Cannabis Screen (>50 NG/ML) < 5.00 5.30 Laboratory Tests 08/07/16 0353: Anion Gap 11, Estimated GFR 24 L, Glucose 66, Calcium 8.1 L, Phosphorus 7.2 H , Magnesium 2.0, Total Bilirubin 0.1 L, AST 47 H, ALT 40, Albumin 1.8 L, CBC w Diff MAN DIFF ORDERED, RBC 3.64 L, MCV 80.3 L, MCH 26.3 L, RDW 17.8 H, MPV 7.9, Gran % 94.6 H, Lymphocytes % 4.0 L, Monocytes % 0.5 L, Eosinophils % 0.9 , Basophils % 0 L, Absolute Granulocytes 11.9 H, Segmented Neutrophils 91 H, Band Neutrophils 7 H, Absolute Lymphocytes 0.5 L, Lymphocytes 2 L, Absolute Monocytes 0.1 L, Absolute Eosinophils 0.1, Absolute Basophils 0, Platelet Estimate ADEQUATE, Polychromasia 1+, Hypochromic-Microcytic 1+, Poikilocytosis 1 +, Ovalocytes 1+, PUBS MCHC 32.8 L, Fld Total RBCs Counted 100 08/06/16 1215: Urine Opiates Screen 1290.00, Methadone Screen 84, Barbiturate Screen < 60, Ur Phencyclidine Scrn 63.50 H, Amphetamines Screen < 100, U Benzodiazepines Scrn 136, Urine Cocaine Screen 167, Urine Cannabis Screen < 5.00 08/06/16 1015: Urine Opiates Screen 1417.00, Methadone Screen 86, Barbiturate Screen < 60, Ur Phencyclidine Scrn 66.50 H, Amphetamines Screen < 100, U Benzodiazepines Scrn 155, Urine Cocaine Screen 165, Urine Cannabis Screen 5.30 Vital Signs Date Time Temp Pulse Resp B/P Pulse O2 O2 Flow FiO2 Ox Delivery Rate 08/07 0400 95 Nasal 2.0L Cannula 08/07 0000 94 Nasal 2.0L Cannula 08/07 0000 96.6 99 17 120/60 94 Nasal 2.0L Cannula 08/06 2000 96 Nasal 2.0L Cannula 08/06 1600 99 Nasal 5.0L Cannula 08/06 1600 97.5 96 15 82/50 100 Nasal 5.0L Cannula 08/06 1200 100 Nasal 5.0L Cannula 08/06 1102 Room Air Room Air 08/06 1058 Room Air Room Air Exam General Appearance: alert, awake, wants pain meds Head: alopecia Respiratory: mild exp wheeze Cardiovascular: tachycardia Gastrointestinal: normal bowel sounds, soft, non-tender Extremities: right upper extremity still edematous, with improved ROM Current Medications: Current Medications Sig/Shahla Start time Last Medication Dose Route Stop Time Status Admin Acetaminophen 1,000 MG ONCE ONE 08/07 0945 DC IV 08/07 0946 Acetaminophen 650 MG Q4 HRS NEEDED PRN 07/31 0800 AC 08/07 PO 0248 Albuterol Sulfate 3 ML BID 08/05 2200 AC 08/06 INH 1636 Albuterol Sulfate 2 PUF Q4P PRN 07/30 2200 AC 08/07 INH 0914 Collagenase 1 DEMETRA DAILY 08/04 1000 AC 08/06 TOP 1229 Dextrose 25 GM ONCE ONE 08/06 1615 DC 08/06 IV 08/06 1616 1635 Diclofenac Sodium 1 DEMETRA TID PRN 07/30 1145 AC 08/05 TOP 2142 Diphenhydramine HCl 75 MG Q6P PRN 07/31 1100 AC 08/05 PO 1808 Docusate Sodium 100 MG DAILY 07/31 1000 AC 08/06 PO 1027 Enoxaparin Sodium 40 MG DAILY 08/02 1000 DC 08/06 SC 1027 Escitalopram Oxalate 5 MG 0800 08/06 0800 AC 08/06 PO 1229 Heparin Sodium 0 .STK-MED ONE 08/07 0927 DC (Porcine) IV Hydromorphone HCl 1 MG Q6P PRN 08/06 1345 DC IV Hydromorphone HCl 1 MG ONCE ONE 08/06 1000 DC 08/06 IV 08/06 1001 1030 Insulin Aspart 0 TIDAC/HS 08/01 0800 AC 08/05 SC 1346 Insulin Detemir 60 UNITS BID 07/28 2200 DC 08/06 SC 1027 Lidocaine 0 .STK-MED ONE 08/07 09 DC .ROUTE Lidocaine 1 PAT DAILY 07/28 1800 AC 07/28 EXT 2004 Lidocaine/Epinephrine 0 .STK-MED ONE 08/07 0925 DC .ROUTE Miconazole Nitrate 1 DEMETRA AT BEDTIME 07/29 0130 AC 08/06 VAG 2210 Naloxone HCl 4 MG Q24H 08/06 0845 DC Dextrose/Water 1,000 ML IV Norepinephrine 8 MG Q24H 08/05 2330 AC 03/21 Sodium Chloride 250 ML IV 2337 Oxacillin Sodium 2,000 MG Q4 08/03 1400 AC 08/07 Sodium Chloride 100 ML IV 0546 Pregabalin 150 MG BID 07/28 220 AC 08/06 PO 2210 Quetiapine Fumarate 100 MG AT BEDTIME PRN 08/05 2200 AC 08/05 PO 2142 Senna/Docusate Sodium 2 TAB DAILY 07/31 1000 AC 08/06 PO 1027 Simethicone 80 MG Q6P PRN 08/03 0830 AC 08/03 PO 1001 Sodium Bicarbonate 1,300 MG TID 08/05 1059 AC 08/06 PO 2202 Impression/Plan Impression/Problem List Impression: 40-year-old lady with a PMH of diabetes, previous right-sided hemorrhagic pleural effusion S/P Pleurx catheter, lytic therapy 2, previous MSSA sepsis likely secondary to pro-line catheter, previous necrotizing fasciitis of the perineum, left pararenal abscess, osteomyelitis of pubic bone, polysubstance abuse, depression, opiate dependence who presented with complaints of right-sided hip pain, found to have pelvic abscess, s/p IR drainage was transferred from to ICU for hypotension, lethargy, and agonal breathing. Her lethargy could be due to opioid overdose, as she responded well to narcan, or it could be due to hypotension (unlikely because her mentation improved even when she was hypotensive). Orta: Day #5 Central line: Day #7 Proline scheduled on August 07, at 1030 am ID # Pelvic abscess sp IR drainage * Received vancomycin for 2 days (last dose 08/03 at 4am). Vanc level 31.8 on . Vancomycin 1250 Q12 discontinued based on Dr. Dunbar's and pharmacist, Mayra's recc. Started oxacillin 2g IV q4 for MSSA on 08/03. Today abx day #7 * Proline scheduled on August 07, at 1030 am. NPO in and lovenox discontinued. Consider imaging/aspiration of right upper extremity under anesthesia as well. * Ceftriaxone has been discontinued after 2 days. * dilaudid 1mg Q6P on hold. we tried to obtain pain management consult but they have seen her twice in the past and has noted that she only wants IV dilaudid and she lies, hence they feel that there is nothing to add and they won't consult on her again. * For pain, continue Diclofenac, Lyrica 150 bid, Lidocaine patch, Benadryl po 75 q6P * F/U cultures (MSSA) * Plan for discharge to rehab (needs to be on IV abx, hx of drug abuse) * Continue Miconazole * Avoid benzo given hx of benzo dependence * The tube should be open to external gravity drainage via drainage bag. Tube should be flushed Q shift with 10 mL normal saline. Strict output should be measured, not including these flushes. # Right shoulder pain with decreased passive and active ROM (improving) # Right elbow swelling (improving) * Xray and US obtained * Refuses MRI * Appreciate Ortho (Dr. Schulz) input. # The scalp lesion popped 08/02 PM, with purulent drainage noted - Alopecia noted Metabolic # Acute kidney injury most likely due to IV contrast, NSAIDs, hypotension, urinary retention, vancomycin - Noted worsening of BUN/Cr from 31/0.9 on admission to 56/1.9. Kidney functions continued to worsen despite IVF. She is then placed on 800ml fluid restriction with na bicarb tabs 1300 tid. Renal functions 60/2.3 to 66/2.9. - Renal US did not show hydronephrosis * 1200ml fluid restriction (incl meds) with na bicarb tabs 1300 tid * Appreciate renal input * Celecoxib 100 bid discontinued * Vancomycin discontinued * Orta inserted * No NSAIDs, IV contrast or aminoglycosides # Hyponatremia - Hyponatremia predated renal failure, probably related to ADH release with stress/pain as well as contributed by antidepressants, NSAIDS - 08/03: Na 130 to 121, with glucose around 200. Fena 0.1. Serum osm 290, urine osm 350. * All drips/IV fluids should be put in NS if possible to try and limit free water. # Hyperkalemia - Most likely resultant of renal insufficiency. - 08/04: K improved from 5.6 to 4.6 Cardiovascular # Hypotension (resolved) * Left IJ central line in place * Levophed from 08/01 at 2345 to 08/02 at 1931. Now off. BP stable * Levophed again started on 08/05 at 2330 , currently titrating off with goal MAP > 65 Psych # Depression * Started Sertraline 25 daily, but discontinued due to hyponatremia. * Started on lexapro on 08/05 * Started Quetiapine 100 mg PO at bedtime, but discontinued due to concerns of causing hypotension, restarted on 08/05 * Continue Propanolol 20 bid (hold if hypotensive) * On the W-10 and the discharge instructions, please ask the receiving facility/ ECF to call and make an intake appointment at [facility], [address] [place] [address], [place], [place] when her discharge date is known, . # Hx of drug abuse Pt transferred to ICU from due to lethargy, agonal breathing and hypotension. 08/06 urine toxicology obtained: opiate 1417 (not surprising given she was given dilaudid, although her last dose was about 10 hours prior to when urine was obtained, was 1868 9 days prior), methadone 86 (same as utox from 9 days prior), PCP (66.50, >72 prior), benzodiazepine (155, received midazolam 08/01during IR procedure), cocaine (165, was >1000 prior), cannabis 5.30 (was 43.10 prior). Negative for barbiturate, amphetamines. Given the positive benzo screen although it has not been ordered for her since she has been in the hospital, it is likely that someone is bringing it to her or it is part of her belongings. Apparently, she is using an inhaler from home. Psych has been been aware of this. * Limit visitors * OP psych follow up * Cannot go home with proline, must go to rehab Endocrine # Diabetes mellitus * Novolog tidac/qhs * Levemir 60 bid ON HOLD * Watch blood sugar closely * Consider endo consult Alimentary * Continue Senna, Docusate Skin - Pt refused to be examined on admission and refused to be changed, very reluctant to be turned - On 07/30: wound care nurse Latia noted unstageable pressure injury to right buttocks and stage 2 ulcers on left buttocks. I have not seen it personally myself because she refuses to turn or even move slightly for me, but these ulcers are most likely present on admission Diet: NPO for proline, will advance to CC3 with 1200 ml fluid restriction after DVT ppx: alps and Lovenox (on hold for proline) FC Consults: ID, psych,renal, ortho, PT, pain management Labs: bep mag phos for acute kidney injury , cbc for leukocytosis Problem List: 1. Right hip pain Pain Ratin Tomorrow's Labs & Rationales: bep mag phos for acute kidney injury , cbc for leukocytosis Plan DVT/Prophylaxis: mechanical, pharmacological
[2016-08-07 08:00] VITALS: BP 130/70
--- NOTE | 2016-08-07 08:54 | PN- Nephrology ---
Assessment/Plan Assessment: 1. [place]NN: ATN post mult insults; nonoliguric & starting to improve - no renal replacement indication 2. Acidemia: continue po Nabicarb 3. Hyponatremia: improving Suggestion: 1. continue Na bicarb 1300 mg tid 2. relax fluid 1200 ml/day --> total po & IV 3. serial chemistries 4. no NSAIDS, including IV Subjective Subjective: Awake - no SOb C/o pain Off NE w good BP - urine nonologuric Objective Vital Signs and I&Os Vital Signs Date Time Temp Pulse Resp B/P Pulse O2 O2 Flow FiO2 Ox Delivery Rate 08/07 0400 95 Nasal 2.0L Cannula 08/07 0000 94 Nasal 2.0L Cannula 08/07 0000 96.6 99 17 120/60 94 Nasal 2.0L Cannula 08/06 2000 96 Nasal 2.0L Cannula 08/06 1600 99 Nasal 5.0L Cannula 08/06 1600 97.5 96 15 82/50 100 Nasal 5.0L Cannula 08/06 1200 100 Nasal 5.0L Cannula 08/06 1102 Room Air Room Air 08/06 1058 Room Air Room Air 08/06 0950 94 Nasal 4.0L Cannula 08/06 0911 98 Nasal 3.0L Cannula Intake & Output 08/07 1600 08/07 0400 08/06 1600 08/06 0400 08/05 1600 08/05 0400 Intake Total 187 077 2203.9 750 1830 1324 Output Total 700 700 350 195 50 330 Balance -370 -54 874.9 555 1780 994 Intake, IV 330 226 624.9 390 950 844 Intake, Oral 420 600 360 880 480 Number 0 0 0 Bowel Movements Output, 20 30 Drainage Output, Urine 700 700 350 175 50 300 Physical Exam General Appearance: well developed/nourished, no apparent distress, anxious Head: normal appearance Ears, Nose, Throat: normal ENT inspection Neck: normal inspection Respiratory: quiet respiration, lungs clear Cardiovascular: regular rate/rhythm, edema Abdomen: soft, non-tender Extremities: swelling Neurologic/Psychiatric: awake, alert Current Medications: Current Medications Sig/Shahla Start time Last Medication Dose Route Stop Time Status Admin Acetaminophen 650 MG Q4 HRS NEEDED PRN 07/31 0800 AC 08/07 PO 0248 Albuterol Sulfate 3 ML BID 08/05 2199 AC 08/06 INH 1636 Albuterol Sulfate 2 PUF Q4P PRN 07/30 2200 AC 08/05 INH 0249 Collagenase 1 DEMETRA DAILY 08/04 1000 AC 08/06 TOP 1229 Dextrose 25 GM ONCE ONE 08/06 1615 DC 08/06 IV 08/06 1616 1635 Diclofenac Sodium 1 DEMETRA TID PRN 07/30 1145 AC 08/05 TOP 2142 Diphenhydramine HCl 75 MG Q6P PRN 07/31 1100 AC 08/05 PO 1808 Docusate Sodium 100 MG DAILY 07/31 1000 AC 08/06 PO 1027 Enoxaparin Sodium 40 MG DAILY 08/02 1000 DC 08/06 SC 1027 Escitalopram Oxalate 5 MG 0800 08/06 0800 AC 08/06 PO 1229 Hydromorphone HCl 1 MG Q6P PRN 08/06 1345 DC IV Hydromorphone HCl 1 MG ONCE ONE 08/06 1000 DC 08/06 IV 08/06 1001 1030 Hydromorphone HCl 0.6 MG Q6P PRN 08/05 1530 DC IV Insulin Aspart 0 TIDAC/HS 08/01 0800 AC 08/05 SC 1346 Insulin Detemir 60 UNITS BID 07/28 2200 DC 08/06 SC 1027 Lidocaine 1 PAT DAILY 07/28 1800 AC 07/28 EXT 2004 Miconazole Nitrate 1 DEMETRA AT BEDTIME 07/29 0130 AC 08/06 VAG 2210 Naloxone HCl 4 MG Q24H 08/06 0845 DC Dextrose/Water 1,000 ML IV Norepinephrine 8 MG Q24H 08/05 2330 AC 08/05 Sodium Chloride 250 ML IV 2337 Oxacillin Sodium 2,000 MG Q4 08/03 1400 AC 08/07 Sodium Chloride 100 ML IV 0546 Pregabalin 150 MG BID 07/28 2200 AC 08/06 PO 2210 Quetiapine Fumarate 100 MG AT BEDTIME PRN 08/05 2200 AC 08/05 PO 2142 Senna/Docusate Sodium 2 TAB DAILY 07/31 1000 AC 08/06 PO 1027 Simethicone 80 MG Q6P PRN 08/03 0830 AC 08/03 PO 1001 Sodium Bicarbonate 1,300 MG TID 08/05 1059 AC 08/06 PO 2202 Results Pertinent Lab Results: Laboratory Tests 08/07 08/06 08/06 0353 1215 1015 Chemistry Sodium (137 - 145 mmol/L) 131 L Potassium (3.5 - 5.1 mmol/L) 4.9 Chloride (98 - 107 mmol/L) 101 Carbon Dioxide (22 - 30 mmol/L) 19 L Anion Gap (5 - 16) 11 BUN (7 - 17 mg/dL) 66 H Creatinine (0.5 - 1.0 mg/dL) 2.3 H Estimated GFR (>60 ml/min) 24 L Glucose (65 - 99 mg/dL) 66 Calcium (8.4 - 10.2 mg/dL) 8.1 L Phosphorus (2.5 - 4.5 mg/dL) 7.2 H Magnesium (1.6 - 2.3 mg/dL) 2.0 Total Bilirubin (0.2 - 1.3 mg/dL) 0.1 L AST (14 - 36 U/L) 47 H ALT (9 - 52 U/L) 40 Albumin (3.5 - 5.0 g/dL) 1.8 L Hematology CBC w Diff MAN DIFF ORDERED WBC (4.8 - 10.8 /CUMM) 12.6 H RBC (4.20 - 5.40 /CUMM) 3.64 L Hgb (12.0 - 16.0 G/DL) 9.6 L Hct (37 - 47 %) 29.2 L MCV (81.0 - 99.0 FL) 80.3 L MCH (27.0 - 31.0 PG) 26.3 L RDW (11.5 - 14.5 %) 17.8 H Plt Count (130 - 400 /CUMM) 272 MPV (7.4 - 10.4 FL) 7.9 Gran % (42.2 - 75.2 %) 94.6 H Lymphocytes % (20.5 - 51.1 %) 4.0 L Monocytes % (1.7 - 9.3 %) 0.5 L Eosinophils % (0 - 5 %) 0.9 Basophils % (0.0 - 2.0 %) 0 L Absolute Granulocytes (1.4 - 6.5 /CUMM) 11.9 H Segmented Neutrophils (42.2 - 75.2 %) 91 H Band Neutrophils (0.0 - 5.0 %) 7 H Absolute Lymphocytes (1.2 - 3.4 /CUMM) 0.5 L Lymphocytes (20.5 - 51.1 %) 2 L Absolute Monocytes (0.10 - 0.60 /CUMM) 0.1 L Absolute Eosinophils (0.0 - 0.7 /CUMM) 0.1 Absolute Basophils (0.0 - 0.2 /CUMM) 0 Platelet Estimate (ADEQUATE) ADEQUATE Polychromasia 1+ Hypochromic-Microcytic 1+ Poikilocytosis 1+ Ovalocytes 1+ PUBS MCHC (33.0 - 37.0 G/DL) 32.8 L Other Body Source Fld Total RBCs Counted (%) 100 Toxicology Urine Opiates Screen (>2000 NG/ML) 1290.00 1417.00 Methadone Screen (>300 NG/ML) 84 86 Barbiturate Screen (>200 NG/ML) < 60 < 60 Ur Phencyclidine Scrn (>25 NG/ML) 63.50 H 66.50 H Amphetamines Screen (>1000 NG/ML) < 100 < 100 U Benzodiazepines Scrn (>200 NG/ML) 136 155 Urine Cocaine Screen (>300 NG/ML) 167 165 Urine Cannabis Screen (>50 NG/ML) < 5.00 5.30 03/22 03 0439 0035 Chemistry Sodium (137 - 145 mmol/L) 125 L Potassium (3.5 - 5.1 mmol/L) 5.4 H Chloride (98 - 107 mmol/L) 98 Carbon Dioxide (22 - 30 mmol/L) 18 L Anion Gap (5 - 16) 8 BUN (7 - 17 mg/dL) 66 H Creatinine (0.5 - 1.0 mg/dL) 2.9 H Estimated GFR (>60 ml/min) 18 L BUN/Creatinine Ratio (7 - 25 %) 22.8 Lactic Acid (0.7 - 2.1 mmol/L) 2.0 Phosphorus (2.5 - 4.5 mg/dL) 7.1 H Magnesium (1.6 - 2.3 mg/dL) 1.9 Hematology CBC w Diff MAN DIFF ORDERED WBC (4.8 - 10.8 /CUMM) 14.6 H RBC (4.20 - 5.40 /CUMM) 3.92 L Hgb (12.0 - 16.0 G/DL) 10.3 L Hct (37 - 47 %) 31.5 L MCV (81.0 - 99.0 FL) 80.3 L MCH (27.0 - 31.0 PG) 26.2 L RDW (11.5 - 14.5 %) 17.6 H Plt Count (130 - 400 /CUMM) 232 MPV (7.4 - 10.4 FL) 8.0 Gran % (42.2 - 75.2 %) 95.3 H Lymphocytes % (20.5 - 51.1 %) 3.6 L Monocytes % (1.7 - 9.3 %) 0.5 L Eosinophils % (0 - 5 %) 0.6 Basophils % (0.0 - 2.0 %) 0 L Absolute Granulocytes (1.4 - 6.5 /CUMM) 13.9 H Segmented Neutrophils (42.2 - 75.2 %) 86 H Band Neutrophils (0.0 - 5.0 %) 6 H Absolute Lymphocytes (1.2 - 3.4 /CUMM) 0.5 L Lymphocytes (20.5 - 51.1 %) 4 L Monocytes (1.7 - 9.3 %) 3 Absolute Monocytes (0.10 - 0.60 /CUMM) 0.1 L Eosinophils (0 - 5.0 %) 1 Absolute Eosinophils (0.0 - 0.7 /CUMM) 0.1 Absolute Basophils (0.0 - 0.2 /CUMM) 0 Platelet Estimate (ADEQUATE) ADEQUATE Polychromasia 1+ Hypochromic-Microcytic 1+ Poikilocytosis 1+ Basophilic Stippling SLIGHT Ovalocytes 1+ PUBS MCHC (33.0 - 37.0 G/DL) 32.6 L Other Body Source Fld Total RBCs Counted (%) 100 08/06 08/06 08/05 0006 0005 2351 Blood Gas pH (7.35 - 7.45 PH) 7.26 *L pCO2 (35 - 45 TORR) 38 pO2 (80 - 100 TORR) 73 L HCO3 (21 - 28 MEQ/L) 17 L ABG O2 Sat (Measured) (>96.0 %) 95.0 L P-50 (Temp Corrected) Y Carboxyhemoglobin (1.5 - 5.0 %) 0.3 L O2 Concentration % 3 LPM Temperature (97.0 - 100.0 FARH) 95.6 L O2 Delivery Method N/C Chemistry Sodium (137 - 145 mmol/L) 124 L Potassium (3.5 - 5.1 mmol/L) 5.3 H Chloride (98 - 107 mmol/L) 98 Carbon Dioxide (22 - 30 mmol/L) 19 L Anion Gap (5 - 16) 7 BUN (7 - 17 mg/dL) 65 H Creatinine (0.5 - 1.0 mg/dL) 2.9 H Estimated GFR (>60 ml/min) 18 L Glucose (65 - 99 mg/dL) 74 Calcium (8.4 - 10.2 mg/dL) 7.9 L Phosphorus (2.5 - 4.5 mg/dL) 7.1 H Magnesium (1.6 - 2.3 mg/dL) 1.9 Total Bilirubin (0.2 - 1.3 mg/dL) 0.1 L AST (14 - 36 U/L) 29 ALT (9 - 52 U/L) 27 Troponin I (< 0.11 ng/ml) < 0.01 Albumin (3.5 - 5.0 g/dL) 1.7 L Hematology CBC w Diff MAN DIFF ORDERED WBC (4.8 - 10.8 /CUMM) 11.8 H RBC (4.20 - 5.40 /CUMM) 3.96 L Hgb (12.0 - 16.0 G/DL) 10.5 L Hct (37 - 47 %) 31.8 L MCV (81.0 - 99.0 FL) 80.2 L MCH (27.0 - 31.0 PG) 26.4 L RDW (11.5 - 14.5 %) 17.3 H Plt Count (130 - 400 /CUMM) 224 MPV (7.4 - 10.4 FL) 7.9 Gran % (42.2 - 75.2 %) 94.9 H Lymphocytes % (20.5 - 51.1 %) 4.0 L Monocytes % (1.7 - 9.3 %) 0.5 L Eosinophils % (0 - 5 %) 0.5 Basophils % (0.0 - 2.0 %) 0.1 Absolute Granulocytes (1.4 - 6.5 /CUMM) 11.2 H Segmented Neutrophils (42.2 - 75.2 %) 81 H Band Neutrophils (0.0 - 5.0 %) 8 H Absolute Lymphocytes (1.2 - 3.4 /CUMM) 0.5 L Lymphocytes (20.5 - 51.1 %) 6 L Monocytes (1.7 - 9.3 %) 2 Absolute Monocytes (0.10 - 0.60 /CUMM) 0.1 L Eosinophils (0 - 5.0 %) 2 Absolute Eosinophils (0.0 - 0.7 /CUMM) 0.1 Basophils (0.0 - 2.0 %) 1 Absolute Basophils (0.0 - 0.2 /CUMM) 0 Platelet Estimate (ADEQUATE) ADEQUATE Polychromasia 1+ Poikilocytosis 1+ Ovalocytes 1+ PUBS MCHC (33.0 - 37.0 G/DL) 33.0 Miscellaneous Phlebotomy Draw Site LEFT RADIAL Other Body Source Fld Total RBCs Counted (%) 100 08/05 08/05 08/05 1600 1300 UNK Chemistry Sodium (137 - 145 mmol/L) 123 L Cancelled Cancelled Potassium (3.5 - 5.1 mmol/L) 5.2 H Cancelled Cancelled Chloride (98 - 107 mmol/L) 96 L Cancelled Cancelled Carbon Dioxide (22 - 30 mmol/L) 18 L Cancelled Cancelled Anion Gap (5 - 16) 9 Cancelled Cancelled BUN (7 - 17 mg/dL) 62 H Cancelled Cancelled Creatinine (0.5 - 1.0 mg/dL) 2.6 H Cancelled Cancelled Estimated GFR (>60 ml/min) 20 L BUN/Creatinine Ratio (7 - 25 %) 23.8 Cancelled Glucose Cancelled Calcium Cancelled Phosphorus Cancelled Magnesium Cancelled Total Bilirubin Cancelled AST Cancelled ALT Cancelled Albumin Cancelled 08/05 08/04 0630 1008 Blood Gas pH (7.35 - 7.45 PH) 7.29 *L pCO2 (35 - 45 TORR) 32 L pO2 (80 - 100 TORR) 72 L HCO3 (21 - 28 MEQ/L) 15 L ABG O2 Sat (Measured) (>96.0 %) 94.0 L P-50 (Temp Corrected) N Carboxyhemoglobin (1.5 - 5.0 %) 0.4 L O2 Concentration % .21 Temperature (97.0 - 100.0 FARH) 96.5 L O2 Delivery Method RA Chemistry Sodium (137 - 145 mmol/L) 121 L Potassium (3.5 - 5.1 mmol/L) 5.2 H Chloride (98 - 107 mmol/L) 97 L Carbon Dioxide (22 - 30 mmol/L) 18 L Anion Gap (5 - 16) 6 BUN (7 - 17 mg/dL) 60 H Creatinine (0.5 - 1.0 mg/dL) 2.3 H Estimated GFR (>60 ml/min) 24 L BUN/Creatinine Ratio (7 - 25 %) 26.1 H Phosphorus (2.5 - 4.5 mg/dL) 5.9 H Magnesium (1.6 - 2.3 mg/dL) 1.8 Hematology CBC w Diff MAN DIFF ORDERED WBC (4.8 - 10.8 /CUMM) 9.5 RBC (4.20 - 5.40 /CUMM) 3.60 L Hgb (12.0 - 16.0 G/DL) 9.5 L Hct (37 - 47 %) 29.2 L MCV (81.0 - 99.0 FL) 80.9 L MCH (27.0 - 31.0 PG) 26.3 L RDW (11.5 - 14.5 %) 17.9 H Plt Count (130 - 400 /CUMM) 201 MPV (7.4 - 10.4 FL) 8.4 Gran % (42.2 - 75.2 %) 92.8 H Lymphocytes % (20.5 - 51.1 %) 5.0 L Monocytes % (1.7 - 9.3 %) 1.1 L Eosinophils % (0 - 5 %) 1.0 Basophils % (0.0 - 2.0 %) 0.1 Absolute Granulocytes (1.4 - 6.5 /CUMM) 8.8 H Segmented Neutrophils (42.2 - 75.2 %) 79 H Band Neutrophils (0.0 - 5.0 %) 14 H Absolute Lymphocytes (1.2 - 3.4 /CUMM) 0.5 L Lymphocytes (20.5 - 51.1 %) 4 L Monocytes (1.7 - 9.3 %) 1 L Absolute Monocytes (0.10 - 0.60 /CUMM) 0.1 L Eosinophils (0 - 5.0 %) 2 Absolute Eosinophils (0.0 - 0.7 /CUMM) 0.1 Absolute Basophils (0.0 - 0.2 /CUMM) 0 Platelet Estimate (ADEQUATE) ADEQUATE Anisocytosis 1+ PUBS MCHC (33.0 - 37.0 G/DL) 32.4 L Miscellaneous Phlebotomy Draw Site LEFT RADIAL Imaging/Other Studies: CXR: IMPRESSION: No significant change since prior chest x-ray. Persistent pulmonary vascular congestion, persistent bilateral airspace disease and persistent right pleural effusion. Possible right basilar infiltrate or atelectasis
--- NOTE | 2016-08-07 11:02 | PN- Infect Dx ---
Subjective Subjective: Afebrile. She continues to complain of pain. Objective Last 24 Hrs of Vital Signs/I&O Vital Signs Date Time Temp Pulse Resp B/P Pulse O2 O2 Flow FiO2 Ox Delivery Rate 08/07 0955 Room Air Room Air 08/07 0400 95 Nasal 2.0L Cannula 08/07 0000 94 Nasal 2.0L Cannula 08/07 0000 96.6 99 17 120/60 94 Nasal 2.0L Cannula 08/06 2000 96 Nasal 2.0L Cannula 08/06 1600 99 Nasal 5.0L Cannula 08/06 1600 97.5 96 15 82/50 100 Nasal 5.0L Cannula 08/06 1200 100 Nasal 5.0L Cannula 08/06 1102 Room Air Room Air 08/06 1058 Room Air Room Air Intake & Output 08/07 1600 08/07 0800 08/07 0000 Intake Total 330 646 Output Total 700 700 Balance -370 -54 Intake, IV 330 226 Intake, Oral 420 Output, Urine 700 700 Physical Exam Other Physical Findings: She appears in no acute distress Neck left IJ triple lumen catheter with no inflammation at the site Lungs are clear Heart regular rhythm with no murmur Abdomen drainage catheter in place with no output reported Extremities right forearm and elbow swelling and induration persist, with decreased erythema, but tender to palpation; right elbow range of motion good; right shoulder with no signs of inflammation; right hip resistant to movement Orta catheter remains in place Results Last 24 Hours of Lab Results: Laboratory Tests 08/07 08/06 0353 1215 Chemistry Sodium (137 - 145 mmol/L) 131 L Potassium (3.5 - 5.1 mmol/L) 4.9 Chloride (98 - 107 mmol/L) 101 Carbon Dioxide (22 - 30 mmol/L) 19 L Anion Gap (5 - 16) 11 BUN (7 - 17 mg/dL) 66 H Creatinine (0.5 - 1.0 mg/dL) 2.3 H Estimated GFR (>60 ml/min) 24 L Glucose (65 - 99 mg/dL) 66 Calcium (8.4 - 10.2 mg/dL) 8.1 L Phosphorus (2.5 - 4.5 mg/dL) 7.2 H Magnesium (1.6 - 2.3 mg/dL) 2.0 Total Bilirubin (0.2 - 1.3 mg/dL) 0.1 L AST (14 - 36 U/L) 47 H ALT (9 - 52 U/L) 40 Albumin (3.5 - 5.0 g/dL) 1.8 L Hematology CBC w Diff MAN DIFF ORDERED WBC (4.8 - 10.8 /CUMM) 12.6 H RBC (4.20 - 5.40 /CUMM) 3.64 L Hgb (12.0 - 16.0 G/DL) 9.6 L Hct (37 - 47 %) 29.2 L MCV (81.0 - 99.0 FL) 80.3 L MCH (27.0 - 31.0 PG) 26.3 L RDW (11.5 - 14.5 %) 17.8 H Plt Count (130 - 400 /CUMM) 272 MPV (7.4 - 10.4 FL) 7.9 Gran % (42.2 - 75.2 %) 94.6 H Lymphocytes % (20.5 - 51.1 %) 4.0 L Monocytes % (1.7 - 9.3 %) 0.5 L Eosinophils % (0 - 5 %) 0.9 Basophils % (0.0 - 2.0 %) 0 L Absolute Granulocytes (1.4 - 6.5 /CUMM) 11.9 H Segmented Neutrophils (42.2 - 75.2 %) 91 H Band Neutrophils (0.0 - 5.0 %) 7 H Absolute Lymphocytes (1.2 - 3.4 /CUMM) 0.5 L Lymphocytes (20.5 - 51.1 %) 2 L Absolute Monocytes (0.10 - 0.60 /CUMM) 0.1 L Absolute Eosinophils (0.0 - 0.7 /CUMM) 0.1 Absolute Basophils (0.0 - 0.2 /CUMM) 0 Platelet Estimate (ADEQUATE) ADEQUATE Polychromasia 1+ Hypochromic-Microcytic 1+ Poikilocytosis 1+ Ovalocytes 1+ PUBS MCHC (33.0 - 37.0 G/DL) 32.8 L Other Body Source Fld Total RBCs Counted (%) 100 Toxicology Urine Opiates Screen (>2000 NG/ML) 1290.00 Methadone Screen (>300 NG/ML) 84 Barbiturate Screen (>200 NG/ML) < 60 Ur Phencyclidine Scrn (>25 NG/ML) 63.50 H Amphetamines Screen (>1000 NG/ML) < 100 U Benzodiazepines Scrn (>200 NG/ML) 136 Urine Cocaine Screen (>300 NG/ML) 167 Urine Cannabis Screen (>50 NG/ML) < 5.00 Last 24 Hours of [place] Results: No recent cultures Assessment/Plan Impression: Somewhat improved, now off pressors, with renal function improving and with white blood cell count decreased though her right upper extremity inflammation persists on Oxacillin for a pelvic abscess secondary to MSSA, status post drainage 6 days ago. She is scheduled for a Pro-Line later today, for which she apparently requires anesthesia, and further imaging of her right upper extremity may be able to be done at the same time. She has had no drainage reported from the pelvic abscess, suggesting either that the catheter has become dislodged or that the abscess has been adequately drained. Suggestion: 1. Await placement of Pro-Line catheter so that her left IJ can be removed 2. Would pursue MRI of the right elbow/forearm after the Pro-Line placement as discussed 3. Ensure that her drainage catheter is being flushed as per IR recommendations 4. Will need a repeat CT of the pelvis if drainage remains minimal 5. Would recheck HIV 6. Continue Oxacillin
--- NOTE | 2016-08-07 11:37 | PN- CRCU ---
Subjective HPI/Critical Care Issues: pt seen and examined continues to request for pain medications, however appears comfortable awaiting pro line placement no new events on oxacillin right arm pain Objective Current Medications: Current Medications Sig/Shahla Start time Last Medication Dose Route Stop Time Status Admin Acetaminophen 1,000 MG ONCE ONE 08/07 0945 DC 08/07 IV 08/07 0946 1007 Acetaminophen 650 MG .STK-MED ONE 08/07 0245 DC PO 08/07 0246 Acetaminophen 650 MG Q4 HRS NEEDED PRN 07/31 0800 AC 08/07 PO 0248 Albuterol Sulfate 3 ML BID 08/05 2200 AC 08/06 INH 1636 Albuterol Sulfate 2 PUF Q4P PRN 07/30 2200 AC 08/07 INH 0914 Collagenase 1 DEMETRA DAILY 08/04 1000 AC 08/06 TOP 1229 Dextrose 25 GM ONCE ONE 08/06 1615 DC 08/06 IV 08/06 1616 1635 Diclofenac Sodium 1 DEMETRA TID PRN 07/30 1145 AC 08/05 TOP 2142 Diphenhydramine HCl 75 MG Q6P PRN 07/31 1100 AC 08/05 PO 1808 Docusate Sodium 100 MG DAILY 07/31 1000 AC 08/06 PO 1027 Enoxaparin Sodium 40 MG DAILY 08/02 1000 DC 08/06 SC 1027 Escitalopram Oxalate 5 MG 0800 08/06 0800 AC 08/07 PO 1005 Fentanyl Citrate 0 .STK-MED ONE 08/07 1132 DC .ROUTE Heparin Sodium 0 .STK-MED ONE 08/07 0927 DC (Porcine) IV Hydromorphone HCl 1 MG Q6P PRN 08/06 1345 DC IV Insulin Aspart 0 TIDAC/HS 08/01 0800 AC 08/05 SC 1346 Insulin Detemir 60 UNITS BID 07/28 2200 DC 08/06 SC 1027 Lidocaine 0 .STK-MED ONE 08/07 0925 DC .ROUTE Lidocaine 1 PAT DAILY 07/28 1800 AC 07/28 EXT 2004 Lidocaine/Epinephrine 0 .STK-MED ONE 08/07 0925 DC .ROUTE Miconazole Nitrate 1 DEMETRA AT BEDTIME 07/29 0130 AC 08/06 VAG 2210 Midazolam HCl 0 .STK-MED ONE 08/07 1132 DC .ROUTE Norepinephrine 8 MG Q24H 08/05 2330 AC 08/05 Sodium Chloride 250 ML IV 2337 Oxacillin Sodium 2,000 MG Q4 08/03 1400 AC 08/07 Sodium Chloride 100 ML IV 1007 Pregabalin 150 MG BID 07/28 2200 AC 08/07 PO 1005 Quetiapine Fumarate 100 MG AT BEDTIME PRN 08/05 220 AC 08/05 PO 2142 Senna/Docusate Sodium 2 TAB DAILY 07/31 1000 AC 08/06 PO 1027 Simethicone 80 MG Q6P PRN 08/03 0830 AC 08/03 PO 1001 Sodium Bicarbonate 1,300 MG TID 08/05 1059 AC 08/07 PO 1005 Vital Signs & I&O Last 24 Hrs of Vitals and I&O: Vital Signs Date Time Temp Pulse Resp B/P Pulse O2 O2 Flow FiO2 Ox Delivery Rate 08/07 0955 Room Air Room Air 08/07 0400 95 Nasal 2.0L Cannula 08/07 0000 94 Nasal 2.0L Cannula 08/07 0000 96.6 99 17 120/60 94 Nasal 2.0L Cannula 08/06 2000 96 Nasal 2.0L Cannula 08/06 1600 99 Nasal 5.0L Cannula 08/06 1600 97.5 96 15 82/50 100 Nasal 5.0L Cannula 08/06 1200 100 Nasal 5.0L Cannula Intake & Output 08/07 1600 08/07 0800 08/07 0000 Intake Total 330 646 Output Total 700 700 Balance -370 -54 Intake, IV 330 226 Intake, Oral 420 Output, Urine 700 700 Exam Other Physical Findings: gen awake, alert heent ncat cvs s1, s2 lungs rare rhonchi abd obese ext without edema Results Last 24 Hrs of Lab Results: Laboratory Tests 08/07/16 0353: Anion Gap 11, Estimated GFR 24 L, Glucose 66, Calcium 8.1 L, Phosphorus 7.2 H , Magnesium 2.0, Total Bilirubin 0.1 L, AST 47 H, ALT 40, Albumin 1.8 L, CBC w Diff MAN DIFF ORDERED, RBC 3.64 L, MCV 80.3 L, MCH 26.3 L, RDW 17.8 H, MPV 7.9, Gran % 94.6 H, Lymphocytes % 4.0 L, Monocytes % 0.5 L, Eosinophils % 0.9 , Basophils % 0 L, Absolute Granulocytes 11.9 H, Segmented Neutrophils 91 H, Band Neutrophils 7 H, Absolute Lymphocytes 0.5 L, Lymphocytes 2 L, Absolute Monocytes 0.1 L, Absolute Eosinophils 0.1, Absolute Basophils 0, Platelet Estimate ADEQUATE, Polychromasia 1+, Hypochromic-Microcytic 1+, Poikilocytosis 1 +, Ovalocytes 1+, PUBS MCHC 32.8 L, Fld Total RBCs Counted 100 08/06/16 1215: Urine Opiates Screen 1290.00, Methadone Screen 84, Barbiturate Screen < 60, Ur Phencyclidine Scrn 63.50 H, Amphetamines Screen < 100, U Benzodiazepines Scrn 136, Urine Cocaine Screen 167, Urine Cannabis Screen < 5.00 Impression/Plan Impression/Plan Impression/Plan: Impression 40 year old woman - hx of multiple collections/pus, MSSA - loculated right pleural effusion chronic - hyponatremia - [place] Plan - oxacillin, ID following - nephrology following - pain control - hemodynamic monitoring - off levophed - monitor mag, phos, k and replete as needed - finger stick monitoring - DVT prophylaxis - Dilaudid for pain - await proline placement and imaging to follow of upper extremity/ortho follow up TTS 35 min
--- NOTE | 2016-08-07 13:30 | ULTRASOUND REPORT ---
Left sided TUNNELED PROLINE CATHETER INTERVENTIONAL RADIOLOGIST: Joseph Monreal M.D. CLINICAL INDICATION: Needs IV access. ACCESS: Left internal jugular vein. GUIDANCE: Ultrasound and Fluoroscopy 25 seconds SEDATION: Provided by the anesthesia service. COMPLICATIONS: none CONTRAST: none INFORMED CONSENT: Informed consent was obtained from the patient prior to the procedure. During this process, the procedure and potential alternatives were explained, along with the intended outcome and benefits. The risks of the procedure including the possibility of an unsuccessful procedure, as well as the risk of not doing the procedure were discussed. The patient was given the opportunity to ask questions regarding the procedure and appeared competent to make decisions. A signed consent form) by a witnessed as the patient was unable to sign because of arm swelling) documenting this discussion was placed in the medical record. A time out procedure was performed. DESCRIPTION: The right neck and chest wall were prepped and draped. All elements of maximal sterile barrier technique followed including use of cap, mask, sterile gown, sterile gloves, a sterile full body drape and hand hygiene. Also followed skin preparation with 2% chlorhexidine for cutaneous antisepsis, and sterile ultrasound preparation with sterile gel and probe cover. Ultrasound guidance for vascular access was utilized with ultrasound evaluation of the potential access site and documentation that the left internal jugular was patent. Under real-time ultrasound, I visualized the vascular needle entry and recorded and reported US images from this in our PACS system. Under fluoroscopic guidance, a 0.018 guidewire was advanced into the right atrium. Fluoroscopic landmarks were utilized to calculate a tunnel length. A tunnel was then created along the right chest wall to the jugular puncture site. A 6 Nigerien proline catheter was then pulled through the tunnel. The 0.018 wire was replaced with a 0.035 wire with its tip in the IVC. After serial dilatation a 7 Nigerien peel-away sheath was then placed into the left jugular vein. During a breath-hold, the Proline? was passed through the peel-away sheath and positioned with its tip in the mid-right atrium. The peel-away sheath was removed and the wings of the proline catheter were secured to the skin using 2-0 Ethilon. The left jugular entry site was closed with Dermabond. The lumens of the Proline? catheter were flushed with normal saline. A sterile dressing was applied. IMPRESSION: Successful placement of tunneled left sided jugular Proline? catheter.
--- NOTE | 2016-08-07 14:00 | NUR ---
PT SCREAMING, YELLING AT STAFF, UNABLE TO DIRECT HER CONCENTRATION TO ANSWERING ONE QUESTION AT A TIME. SHE DECLINES NURING CARE, INCLUDING ULCER CARE AND TURNING IN BED. SHE DECLINES MOUTH CARE. PROLINE PLACED IN IR WITH ANESTHESIA. REPORT FROM ANESTHESIA POST PROCEDURE . PT MONITOR SR-ST AND B/P STABLE OFF LEVO SUNCE 0900. ELIAS IN PLACE AND IS PATENT. PT ALSO DECLINES TO COMPLY WITH FLUID RESTRICTION.
--- NOTE | 2016-08-07 14:14 | PN- Psychiatry ---
Assessment/Plan Impression: Patient returned to [facility] following proline placement. On encounter, patient presented A&O to person, place, date/year. She appeared mildly fatigued, was alert and awake. Mood was irritable. Patient with frequent complaints about hospital treatments offered and staff. She was future oriented to return home and resume walking, which seems questionable at present given she is nonambulatory. She could not report that last time she ambulated independently. She made a request for a patient advocate and reported "no one is providing me the right care". She reported high anxiety secondary to chronic pain issues, reported she is not medicated correctly for pain. When asked if she felt depressed, she reported "a little." She denied passive and active suicidal ideation, plans and intent. She denied homicidal ideation. She stated and believed she will not harm herself or others. Reviewed case with nursing and medical staff. Per their reports, the patient demonstrates poor behavioral control, is very disruptive on unit; crying, screaming, refusing select medications in addition to nursing and PT care; is pain medication seeking. Patient has responded poorly to staff limits and redirection. 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 Recommend requesting a patient advocate for patient. 2. Recommend starting Haldol 2mg po Q8H prn for agitation. a. Monitor EKG and hold for arrhythmia or QTc greater than 475 mS. b. Monitor and replete electrolytes to the upper portion of the normal range, especially potassium and magnesium. 3. Recommend discontining prn Seroquel due to metabolic risk factors and recommendation to start prn Haldol. Subjective Subjective: Gait: nonambulatory Sleep: "ok" Appetite: "fine" Objective Last 24 Hrs of Vital Signs/I&O Vital Signs Date Time Temp Pulse Resp B/P Pulse O2 O2 Flow FiO2 Ox Delivery Rate 08/07 0955 Room Air Room Air 08/07 0400 95 Nasal 2.0L Cannula 08/07 0000 94 Nasal 2.0L Cannula 08/07 0000 96.6 99 17 120/60 94 Nasal 2.0L Cannula 08/07 1999 96 Nasal 2.0L Cannula 08/06 1600 99 Nasal 5.0L Cannula 08/06 1600 97.5 96 15 82/50 100 Nasal 5.0L Cannula Intake & Output 08/07 1600 08/07 0800 08/07 0000 Intake Total 330 646 Output Total 700 700 Balance -370 -54 Intake, IV 330 226 Intake, Oral 420 Output, Urine 700 700 Physical Exam: Mental Status Exam Presentation/Appearance: 40 CF appears older than stated age, mildly fatigued, obese, sedentary, wearing hospital garb. Orientation: Oriented to person, place, year and month. Sensorium: Awake and alert Eye contact: Hesitant Affect: Constricted Mood: "anxious." Appeared irritable. Depression: "a little" Anxiety: "yes" Thought Content: - pt denied SI/HI, plans or intent. - pt reported hopeless/helpless thoughts regarding pain issues Thought Process: linear Speech: loud, spontaneous Judgment: limited Insight: limited Cognition: grossly intact Memory: unable to assess Attention/Concentration: distractable Current Medications: Current Medications Sig/Shahla Start time Last Medication Dose Route Stop Time Status Admin Acetaminophen 1,000 MG ONCE ONE 08/07 0945 DC 08/07 IV 08/07 0946 1007 Acetaminophen 650 MG .STK-MED ONE 08/07 0245 DC PO 08/07 0246 Acetaminophen 650 MG Q4 HRS NEEDED PRN 07/31 0800 AC 08/07 PO 0248 Albuterol Sulfate 3 ML BID 08/05 2200 AC 08/07 INH 1317 Albuterol Sulfate 2 PUF Q4P PRN 07/30 2200 AC 08/07 INH 0914 Collagenase 1 DEMETRA DAILY 08/04 1000 AC 08/06 TOP 1229 Dextrose 25 GM ONCE ONE 08/06 1615 DC 08/06 IV 08/06 1616 1635 Diclofenac Sodium 1 DEMETRA TID PRN 07/30 1145 AC 08/05 TOP 2142 Diphenhydramine HCl 75 MG Q6P PRN 07/31 1100 AC 08/05 PO 1808 Docusate Sodium 100 MG DAILY 07/31 1000 AC 08/06 PO 1027 Escitalopram Oxalate 5 MG 0800 08/06 0800 AC 08/07 PO 1005 Fentanyl Citrate 0 .STK-MED ONE 08/07 1132 DC .ROUTE Heparin Sodium 0 .STK-MED ONE 08/07 0927 DC (Porcine) IV Hydromorphone HCl 1 MG Q6P PRN 08/06 1345 DC IV Insulin Aspart 0 TIDAC/HS 08/01 0800 AC 08/05 SC 1346 Insulin Detemir 60 UNITS BID 07/28 2200 DC 08/06 SC 1027 Lidocaine 0 .STK-MED ONE 08/07 0925 DC .ROUTE Lidocaine 1 PAT DAILY 07/28 1800 AC 07/28 EXT 2004 Lidocaine/Epinephrine 0 .STK-MED ONE 08/07 0925 DC .ROUTE Miconazole Nitrate 1 DEMETRA AT BEDTIME 07/29 0130 AC 08/06 VAG 2210 Midazolam HCl 0 .STK-MED ONE 08/07 1132 DC .ROUTE Norepinephrine 8 MG Q24H 08/05 2330 AC 08/05 Sodium Chloride 250 ML IV 2337 Oxacillin Sodium 2,000 MG Q4 08/03 1400 AC 08/07 Sodium Chloride 100 ML IV 1007 Pregabalin 150 MG BID 07/28 2200 AC 08/07 PO 1005 Quetiapine Fumarate 100 MG AT BEDTIME PRN 08/05 2200 AC 08/05 PO 2142 Senna/Docusate Sodium 2 TAB DAILY 07/31 1000 AC 08/06 PO 1027 Simethicone 80 MG Q6P PRN 08/03 0830 AC 08/03 PO 1001 Sodium Bicarbonate 1,300 MG TID 08/05 1059 AC 08/07 PO 1005 Results Last 24 Hrs of Labs/Mics: Laboratory Tests 08/07/16 0353: Anion Gap 11, Estimated GFR 24 L, Glucose 66, Calcium 8.1 L, Phosphorus 7.2 H , Magnesium 2.0, Total Bilirubin 0.1 L, AST 47 H, ALT 40, Albumin 1.8 L, CBC w Diff MAN DIFF ORDERED, RBC 3.64 L, MCV 80.3 L, MCH 26.3 L, RDW 17.8 H, MPV 7.9, Gran % 94.6 H, Lymphocytes % 4.0 L, Monocytes % 0.5 L, Eosinophils % 0.9 , Basophils % 0 L, Absolute Granulocytes 11.9 H, Segmented Neutrophils 91 H, Band Neutrophils 7 H, Absolute Lymphocytes 0.5 L, Lymphocytes 2 L, Absolute Monocytes 0.1 L, Absolute Eosinophils 0.1, Absolute Basophils 0, Platelet Estimate ADEQUATE, Polychromasia 1+, Hypochromic-Microcytic 1+, Poikilocytosis 1 +, Ovalocytes 1+, PUBS MCHC 32.8 L, Fld Total RBCs Counted 100, HIV 1&2 Ab Western Blot NONREACTIVE 08/06/16 1215: Urine Opiates Screen 1290.00, Methadone Screen 84, Barbiturate Screen < 60, Ur Phencyclidine Scrn 63.50 H, Amphetamines Screen < 100, U Benzodiazepines Scrn 136, Urine Cocaine Screen 167, Urine Cannabis Screen < 5.00 08/06/16 1015: Urine Opiates Screen 1417.00, Methadone Screen 86, Barbiturate Screen < 60, Ur Phencyclidine Scrn 66.50 H, Amphetamines Screen < 100, U Benzodiazepines Scrn 155, Urine Cocaine Screen 165, Urine Cannabis Screen 5.30 08/06/16 0439: Anion Gap 8, Estimated GFR 18 L, BUN/Creatinine Ratio 22.8, Phosphorus 7.1 H, Magnesium 1.9, CBC w Diff MAN DIFF ORDERED, RBC 3.92 L, MCV 80.3 L, MCH 26.2 L, RDW 17.6 H, MPV 8.0, Gran % 95.3 H, Lymphocytes % 3.6 L, Monocytes % 0.5 L, Eosinophils % 0.6, Basophils % 0 L, Absolute Granulocytes 13.9 H, Segmented Neutrophils 86 H, Band Neutrophils 6 H, Absolute Lymphocytes 0.5 L, Lymphocytes 4 L, Monocytes 3, Absolute Monocytes 0.1 L, Eosinophils 1, Absolute Eosinophils 0.1, Absolute Basophils 0, Platelet Estimate ADEQUATE, Polychromasia 1+, Hypochromic-Microcytic 1+, Poikilocytosis 1+, Basophilic Stippling SLIGHT, Ovalocytes 1+, PUBS MCHC 32.6 L, Fld Total RBCs Counted 100 08/06/16 0035: Lactic Acid 2.0 08/06/16 0006: CBC w Diff MAN DIFF ORDERED, RBC 3.96 L, MCV 80.2 L, MCH 26.4 L, RDW 17.3 H, MPV 7.9, Gran % 94.9 H, Lymphocytes % 4.0 L, Monocytes % 0.5 L, Eosinophils % 0.5, Basophils % 0.1, Absolute Granulocytes 11.2 H, Segmented Neutrophils 81 H , Band Neutrophils 8 H, Absolute Lymphocytes 0.5 L, Lymphocytes 6 L, Monocytes 2, Absolute Monocytes 0.1 L, Eosinophils 2, Absolute Eosinophils 0.1, Basophils 1, Absolute Basophils 0, Platelet Estimate ADEQUATE, Polychromasia 1+, Poikilocytosis 1+, Ovalocytes 1+, PUBS MCHC 33.0, Fld Total RBCs Counted 100 08/06/16 0005: pH 7.26 *L, pCO2 38, pO2 73 L, HCO3 17 L, ABG O2 Sat (Measured) 95.0 L, P-50 (Temp Corrected) Y, Carboxyhemoglobin 0.3 L, O2 Concentration % 3 LPM, Temperature 95.6 L, O2 Delivery Method N/C, Phlebotomy Draw Site LEFT RADIAL 08/05/16 2351: Anion Gap 7, Estimated GFR 18 L, Glucose 74, Calcium 7.9 L, Phosphorus 7.1 H, Magnesium 1.9, Total Bilirubin 0.1 L, AST 29, ALT 27, Troponin I < 0.01, Albumin 1.7 L 08/05/16 1600: Anion Gap 9, Estimated GFR 20 L, BUN/Creatinine Ratio 23.8 Thank you for including psychiatry in this case. We will continue to follow. Rosaura Ingram, INSULATION ESTIMATOR Pager: [phone]
[2016-08-07 16:00] VITALS: BP 110/70
--- NOTE | 2016-08-07 17:21 | Cons- Wound Care ---
General Information and HPI Consulting Request Date of Consult: 08/07/16 Requested By: JERICHO RAMON MD Reason for Consult: Ulcer of the coccyx present on admission History of Present Illness: She is 40-year-old with complicated history of recent hospitalization for management of right pleural effusion admitted with hip pain found to have staph sepsis requiring drainage of a pelvic abscess. 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 She reports having had an abscess of her scalp which spontaneously drained some time ago. She's been on a low air loss mattress but nursing is concerned that her coccyx wound is failing to progress with enzymatic debridement Allergies/Medications Allergies: Coded Allergies: codeine (Intermediate, HIVES 06/17/16) nickel (Intermediate, RASH 06/17/16) adhesive tape (Mild, RASH 06/17/16) duloxetine (Intermediate, NAUSEA 06/17/16) hydrocodone (GI UPSET (ESOPHAGITIS) 06/17/16) ibuprofen (GI UPSET (ESOPHAGITIS) 06/17/16) Home Med List: Albuterol Sulfate (Proair Hfa) 90 MCG HFA.AER.AD 2 PUF INH Q4-6 PRN PRN SOB ( Reported) Diphenhydramine HCl (Benadryl) 25 MG CAPSULE 1 CAP PO Q6 PRN ITCHING ( Reported) Ergocalciferol (Vitamin D2) (Drisdol) 50,000 UNIT CAPSULE 1 CAP PO QW Supplement Please take one of these medications every week for the next eight weeks. After that, you will be required to take one every two weeks for mainainance of your vitamin D Levels. Hydrocortisone Acetate (Micort-Hc) 2.5 % CREAM.APPL 1 DEMETRA TOP TID ITCHING ( Reported) Insulin Aspart (Novolog) 100 UNIT/ML VIAL 0 SC SEE ADMIN CRITERIA Diabetes Your insulin coverage was changed while in hospital. Sliding Scale Blood Sugar Less that 80mg/dl Initiate Hypoglycemia protocol 80-150 mg/dl 12 units 151-200 mg/dl 14 units 201-250 mg/dl 16 units 251-300 mg/dl 18 units 301-350 mg/dl 20 units 351-400 mg/dl 22 units More than 400 mg/dl 24 units call MD Please check your blood sugar at least three times a day. Inform your rn hemodialysis about this change. Insulin Detemir (Levemir) 100 UNIT/ML VIAL 60 UNITS SC BID DM Pregabalin (Lyrica) 150 MG CAPSULE 1 CAP PO BID NEUROPATHY (Reported) Propranolol HCl 20 MG TABLET 1 TAB PO BID ANXIETY (Reported) Quetiapine Fumarate 100 MG TABLET 100 MG PO AT BEDTIME ANXIETY/SLEEP Review of Systems Review of Systems: Patient is minimally mobile secondary to pain Past History Travel History Traveled to [place] past 21 day No Medical History Blood Transfusion Hx: Yes Neurological: NONE EENT: hearing loss Cardiovascular: NONE Respiratory: asthma, S/P CHEST TUBE 05/2016 Gastrointestinal: necrotizing fasciitis of the perineum S/P COLOSTOMY Hepatic: NONE Renal: left pararenal abscess Musculoskeletal: OSTEOMYELITIS OF PUBIS PUBIS FX Psychiatric: anxiety, chronic pain disorder, depression, opioid dependence, POLYSUBSTANCE ABUSE NARCOTIC DEPENDENCE SUICIDAL IDEATION Endocrine: INSULIN DEPENDENT DIABETES - noncompliant Blood Disorders: anemia Cancer(s): NONE QUANTITATIVE EQUITY HEAD/Reproductive: ECTOPIC Other Medical Hx: Left axillary abscess secondary to MSSA status post I&D November 2014 Right deltoid abscess March 2016 secondary to MSSA Surgical History Surgical History: , hysterectomy, D&C colostomy with reversal left axillary abscess November 2014 Family History Relations & Conditions If Any: FATHER (maritza krause Currently 06/16/2015- unable to get any meaningful FHx from patient, s/p drug OD.). FH: cirrhosis Psychosocial History Where Do You Live? Home Who Do You Live With? with friend Primary Language: Guamanian Smoking Status: Current Everyday Smoker ETOH Use: denies use Living Will? no Power of Residential Air Sealing Technician/HCP? no Functional Ability ADLs Independent: dressing, eating, toileting, bathing. Ambulation: independent IADLs Independent: shopping, housework, finances, food prep, telephone, transportation , medication admin. Exam & Diagnostic Data Vital Signs and I&O Vital Signs Result Date Time O2 Delivery Room Air 08/07 0955 O2 Flow Rate Room Air 08/07 0955 Pulse Ox 95 08/07 0400 B/P 120/60 08/07 0000 Temp 96.6 08/07 0000 Pulse 99 08/07 0000 Resp 17 08/07 0000 Intake & Output 08/07 0000 08/06 1600 08/06 0800 Intake Total 646 667 557.9 Output Total 700 250 100 Balance -54 417 457.9 Intake, IV 226 307 317.9 Intake, Oral 420 360 240 Number 0 Bowel Movements Output, Urine 700 250 100 Exam of her scalp shows there to be a dry scab in the area of probable subcutaneous fluid collection there is no drainage or erythema exam of her coccyx shows there to be a unstageable wound measuring approximately 4 x 20 cm 100% slough is no undermining sinus tracking or exposed bone wound base is unable to be evaluated due to 100% slough Assessment/Plan Impression/Plan: 40-year-old woman admitted with sepsis marked hypoalbuminemia and nonhealing wound of her coccyx which is currently unstageable. She is on a lower loss mattress but is immobile secondary to pain. In view of her failure to respond with Santyl recommend surgical evaluation for formal debridement. Patient should be offloaded to the extent possible. Santyl can be continued pending surgical evaluation for debridement. Consult Acknowledgment - Thank you for your consult request.
--- NOTE | 2016-08-07 20:06 | NUR ---
PT STATUS CHANGED TO GEN MED. SEEN BY WOUND MD AND PT WAS SCREAMIMG WHEN TURNED FOR MD ASSESSMENT AND SHE CONTINUES TO DECLINE TO TURN ON HER SIDE.
[2016-08-07 23:00] VITALS: BP 110/60
--- NOTE | 2016-08-08 00:26 | NUR ---
FROM 1900-PT GEN MED HOLD. PT A/OX3. C/O GENERALIZED PAIN-ONE TIME DOSE OF DILUADID GIVEN ORDERED-SEE EMAR. PT SLEPT FOR SHORT TIME AFTER RECEIVING DILAUDID. BREATH SOUNDS CLEAR WITH FEW SCATTERED EXP WHEEZES NOTED. NO COUGH, SOB OR RESP DISTRESS NOTED. ABD SOFT, NONTENDER, NONDISTENDED, POSIITVE BOWEL SOUNDS. ELIAS IN PLACE, DRAINING CLEAR YELLOW URINE. ON 800ML FLUID RESTRICTION-PT NONCOMPLIANT DESPITE MULTIPLE EXPLANATIONS. RT ARM WITH 4+ EDEMA, RED, WARM TO TOUCH. PT REFUSING TO BE TURNED DESPITE EXPLANATION OF SHY IT IS IMPORTANT TO TURN.
[2016-08-08 04:58] LABS: ABSOLUTE BASOPHIL COUNT 0 /CUMM (0.0-0.2); ABSOLUTE EOSINOPHIL COUNT 0.1 /CUMM (0.0-0.7); ABSOLUTE GRANULOCYTE CT 12.3 /CUMM (1.4-6.5); ABSOLUTE LYMPH COUNT 0.6 /CUMM (1.2-3.4); ABSOLUTE MONOCYTE COUNT 0.1 /CUMM (0.10-0.60); BASOPHIL % 0.1 % (0.0-2.0); EOSINOPHIL % 0.8 % (0-5); HEMATOCRIT 28.8 % (37-47); MEAN CORPUSCULAR HGB 26.3 PG (27.0-31.0); MEAN CORPUSCULAR HGB CONC 32.7 G/DL (33.0-37.0); MEAN CORPUSCULAR VOLUME 80.6 FL (81.0-99.0); RED BLOOD CELL CT 3.58 /CUMM (4.20-5.40)
[2016-08-08 05:33] LABS: GRANULOCYTE % 94.3 % (42.2-75.2); PLATELET COUNT 271 /CUMM (130-400)
--- NOTE | 2016-08-08 06:52 | NUR ---
PT SLEPT ON AND OFF DURING THE NIGHT. RATED GENERALIZED PAIN 10 OUT 10 THOUGHOUT SHIFT-HOUSESTAFF ONLY ORDERED 1 TIME DOSE OF DILUADID PT IS DRUG SEEKING. IV BENADRYL AND PO HALDOL GIVEN PER PT REQUEST. 02 INCREASED TO 4LNC AT 0030 PT DESATURATING DOWN TO 84-87% ON 2LNC-SATS UP TO 95-100%. RT LOWER ABD QUADRANT PERCUTINEOUS DRAIN IN PLACE-DRAINING MURKY LIGHT BROWN DRAINAGE. PT HAD LOOSE BM. ESCHAR AREA LT BUTTOKS, STAGE 2 RT BUTTOCKS-ON TOTAL CARE BED. RT ARM REMAINS RED, WARM TO TOUCH, EDEMATOUS. NO OTHER CHANGE IN PT ASSESSMENTS THOUGHOUT SHIFT
--- NOTE | 2016-08-08 07:06 | PN- Housestaff ---
Assessment/Plan Assessment: She was transferred from the intensive care unit to the general medicine floor for further evaluation after her clinical condition was stabilized. She was evaluated by orthopedics for her right shoulder complaints for which they recommended advanced imaging of the extremity to further characterize any occult pathology. She is currently declining any MRI imaging of the extremity unless she can be "knocked out". Her right shoulder has limited range of motion secondary to pain, however her right elbow is mobile but demonstrates a new cellulitis with an associated swelling of the joint. Her blood pressure is still labile for which her propranolol medication dose was reduced. She still maintained on a high dose of intravenous narcotic medications, but admits that her pain is still uncontrolled and is requesting more medications. Chest x-ray obtained this morning for her overnight event of respiratory distress insurance findings suggestive of multiple new areas of opacity in both lungs possibly consistent with sequelae of a multifocal infiltrative process. She is still maintained on intravenous oxacillin and remains afebrile without leukocytosis but with persistent bandemia. Patient is to be placed with a pro-line catheter on and coordination with anesthesia for which she will be made nothing by mouth overnight and Lovenox held that day. Patient was found to be hypotensive to 74/38 this afternoon after receiving a dose of Dilaudid. Given patient's fluid resection she was bolused with 250 mL of normal saline for which her blood pressure improved to 80/44. For hypotension in the setting of infection unresolved sepsis patient was transferred to the ICU for closer monitoring and hemodynamic stabilization and possible utilization of vasopressors. 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 For further evaluation of persistent bandemia and no obvious site of infection a CT abdomen/pelvis with intravenous contrast was obtained that demonstrated a complex multiloculated fluid collection in the right pelvis in addition to the right hematoma. Interventional radiology placed several drains and reportedly removed 300 mL of purulent material from her pelvis. -Gen. medicine -Warm compresses -Oxacillin 2 g IV every 4 hours -Dilaudid 1 g IV every 6 hours as needed for severe pain -Physical therapy/occupational therapy evaluation -Infectious disease consult Right upper extremity pain/right elbow cellulitis Radiographs of the right upper extremity did not demonstrate any acute process. Orthopedic consult placed recommended advanced imaging of the right upper extremity for further characterization of any occult pathology. Patient is currently declining any MRI imaging unless she is "knocked out". -Obtain MRI right upper extremity as outpatient -Orthopedic consult following Respiratory distress with right pleural effusion/possible pneumonia Rapid response was called after transfer to the general floor for respiratory distress where patient was saturating 93% on room air however was audibly wheezing with pulmonary examination significant for decreased airflow in bibasilar wheezing. Chest x-ray obtained demonstrated multiple new areas of opacity in both lungs which may be consistent with sequelae of multifocal infiltrative \\process. -TRC with albuterol/ipratropium when necessary -Supplemental oxygen, goal >92%, taper as tolerated -Incentive spirometry -Pulmonology consult Septic Shock / Elevated Lactic Acid: Resolved Patient met criteria for severe sepsis upon admission. She subsequently developed septic shock for with she was transferred to ICU. During the ICU stay she was given aggressive intravenous fluid resuscitation and vasopressors. Patient subsequently developed end organ damage with acute kidney injury secondary to hypotension. -Monitor vital signs for hemodynamic instability -Triple-lumen catheter in place Hyponatremia Corrected sodium within normal limits. -BEP every 12 hours Acute kidney injury /metabolic acidosis / hyponatremia Patient received intravenous contrast for CT chest and suffered from hypotension /sepsis all of which most likely predispose patient to developing. Renal ultrasound demonstrated normal appearance of both kidneys without any hydronephrosis, mass, or calculus. -Avoid nephrotoxic medications such as NSAIDs -Fluid restriction: 800 mL from all sources -Hold IVF for fluid overload -Strict in's and outs -Orta catheter -D5 1/2NS + 75 mEq NaHCO3 discontinued -NaHCO3 1300mg PO TID started -Nephrology consult -Potassium restriction in diet -Daily BEP Positive urine culture for Klebsiella Patient denies any urinary frequency/urgency/burning pain. She has been incontinent secondary to refusing to ambulate to the restroom. She denies any saddle anesthia or fecal incontinence. -Follow off antibiotics for UTI Anxiety/Depression -Propranolol decreased to 10 mg by mouth twice a day -Zoloft 25 mg by mouth daily -Seroquel 100 mg by mouth daily at bedtime -Psych consult Insulin Dependent Diabetes Mellitus -Accuchecks TIDAC/HS -Hold oral hypoglycemics -Novolog Sliding Scale insulin -Levemir 60 units SC twice a day Unstageable right buttock wound-Local wound care as per wound care assessment Peripheral Neuropathy- Lyrica 150mg PO BID Pain Plan-acetaminophen/Dilaudid/lidocaine patch Bowel regimen-Senokot/Colace Diet-diabetic diet with 2 g potassium restriction DVT PPx- Lovenox Code Status- FULL CODE
--- NOTE | 2016-08-08 07:41 | NUR ---
02 SAT 75 RESP PAGED, TX GIVEN. CRACKLES PRESENT, DR. HERNANDEZ MADE AWARE. POST TX SATS 89% NOW ON 7L.
[2016-08-08 08:00] VITALS: BP 88/46
--- NOTE | 2016-08-08 09:13 | PN- Resident CRCU ---
Subjective HPI/CRCU Issues: MRI not done yesterday because they were unable to fit her in the schedule while she was still under anesthesia. Proline placed, central line has been removed. Surgery has been consulted for possible debridement of her sacral ulcers. Would also consider rectal tube given she is reluctant to be turned to be cleaned and would rather lie on her feces. This morning, pt desat to 70% , subsequently improved to 88% on 7L O2 via NC. She feels short of breath, she is awake, alert, and oriented. SHe was not cooperative with lung exam, refusing to turn, and not wanting to take deep breaths. We want to get an xray to evalute for pulmonary edema but she wants to sleep, she wants to be left alone. BS has been creeping up to 180,223, will continue to monitor and consider restarting levemir. WIll also discuss dvt ppx with lovenox vs heparin. Na improved from 131 to 132. BUN/cr significantly improved 66/2.3 to 56/1.4. WBC 12.6 to 13 without bands. 20 ml drained from pelvis over 8 hours. Would consider repeat pelvis scan. Objective Vital Signs & I&O Last 8 Hrs of Vitals and I&O: Intake & Output 08/08 1600 08/08 0800 08/08 0000 Intake Total 712 604 Output Total 770 1100 Balance -58 -496 Intake, IV 312 124 Intake, Oral 400 480 Number 1 0 Bowel Movements Output, 20 50 Drainage Output, Urine 750 1050 Laboratory Tests 08/08 0409 Chemistry Sodium (137 - 145 mmol/L) 132 L Potassium (3.5 - 5.1 mmol/L) 4.8 Chloride (98 - 107 mmol/L) 103 Carbon Dioxide (22 - 30 mmol/L) 20 L Anion Gap (5 - 16) 9 BUN (7 - 17 mg/dL) 56 H Creatinine (0.5 - 1.0 mg/dL) 1.4 H Estimated GFR (>60 ml/min) 42 L Glucose (65 - 99 mg/dL) 223 H Calcium (8.4 - 10.2 mg/dL) 8.6 Phosphorus (2.5 - 4.5 mg/dL) 6.1 H Magnesium (1.6 - 2.3 mg/dL) 2.0 Total Bilirubin (0.2 - 1.3 mg/dL) 0.3 AST (14 - 36 U/L) 67 H ALT (9 - 52 U/L) 51 Albumin (3.5 - 5.0 g/dL) 2.1 L Hematology CBC w Diff NO MAN DIFF REQ WBC (4.8 - 10.8 /CUMM) 13.0 H RBC (4.20 - 5.40 /CUMM) 3.58 L Hgb (12.0 - 16.0 G/DL) 9.4 L Hct (37 - 47 %) 28.8 L MCV (81.0 - 99.0 FL) 80.6 L MCH (27.0 - 31.0 PG) 26.3 L RDW (11.5 - 14.5 %) 18.0 H Plt Count (130 - 400 /CUMM) 271 MPV (7.4 - 10.4 FL) 8.0 Gran % (42.2 - 75.2 %) 94.3 H Lymphocytes % (20.5 - 51.1 %) 4.3 L Monocytes % (1.7 - 9.3 %) 0.5 L Eosinophils % (0 - 5 %) 0.8 Basophils % (0.0 - 2.0 %) 0.1 Absolute Granulocytes (1.4 - 6.5 /CUMM) 12.3 H Absolute Lymphocytes (1.2 - 3.4 /CUMM) 0.6 L Absolute Monocytes (0.10 - 0.60 /CUMM) 0.1 L Absolute Eosinophils (0.0 - 0.7 /CUMM) 0.1 Absolute Basophils (0.0 - 0.2 /CUMM) 0 PUBS MCHC (33.0 - 37.0 G/DL) 32.7 L Vital Signs Date Time Temp Pulse Resp B/P Pulse O2 O2 Flow FiO2 Ox Delivery Rate 08/08 0757 93 Nasal 7.0L Cannula 08/08 0600 98 Nasal 4.0L Cannula 08/08 0052 92 Nasal 4.0L Cannula 08/07 2300 97.6 114 20 110/60 94 Nasal 2.0L Cannula 08/07 2200 94 Nasal 2.0L Cannula 08/07 2114 96 Nasal 2.0L Cannula 08/07 1600 97.0 104 20 110/70 95 Nasal 2.0L Cannula 08/07 1600 96 Nasal 2.0L Cannula 08/07 0955 Room Air Room Air Exam General Appearance: alert, awake, mild distress Respiratory: ?crackles, difficult to evaluate because she was uncooperative Cardiovascular: tachycardia Gastrointestinal: normal bowel sounds, soft, tender to palpation on the left ( not new) Current Medications: Current Medications Sig/Shahla Start time Last Medication Dose Route Stop Time Status Admin Acetaminophen 1,000 MG Q6P PRN 08/07 1630 AC N/A 1 UNIT IV Acetaminophen 1,000 MG ONCE ONE 08/07 0945 DC 08/07 IV 08/07 0946 1007 Acetaminophen 650 MG Q4 HRS NEEDED PRN 07/31 0800 AC 08/08 PO 0156 Albuterol Sulfate 3 ML BID 08/05 2200 AC 08/08 INH 0754 Albuterol Sulfate 2 PUF Q4P PRN 07/30 2200 AC 08/07 INH 0914 Collagenase 1 DEMETRA DAILY 08/04 1000 AC 08/06 TOP 1229 Diclofenac Sodium 1 DEMETRA TID PRN 07/30 1145 AC 08/05 TOP 2142 Diphenhydramine HCl 50 MG ONCE ONE 08/07 2345 DC 08/08 IV 08/07 2346 0000 Diphenhydramine HCl 50 MG Q6P PRN 08/07 1630 AC 08/07 IV 1902 Diphenhydramine HCl 75 MG Q6P PRN 07/31 1100 DC 08/05 PO 1808 Docusate Sodium 100 MG DAILY 07/31 1000 AC 08/06 PO 1027 Enoxaparin Sodium 40 MG DAILY 08/08 1000 CAN SC Escitalopram Oxalate 5 MG 0800 08/06 0800 AC 08/07 PO 1005 Fentanyl Citrate 0 .STK-MED ONE 08/07 1132 DC .ROUTE Haloperidol 2 MG Q8P PRN 08/07 1830 AC 08/08 PO 0402 Haloperidol 1 MG ONCE PRN 08/07 1630 DC PO Heparin Sodium 0 .STK-MED ONE 08/07 0927 DC (Porcine) IV Hydromorphone HCl 0.2 MG ONCE ONE 08/07 1630 DC 08/07 IV PUSH 08/07 1631 2054 Insulin Aspart 0 TIDAC/HS 08/01 0800 AC 08/07 SC 2105 Ketamine HCl 50 MG .STK-MED ONE 08/07 1055 DC IM 08/07 1056 Lidocaine 0 .STK-MED ONE 08/07 0925 DC .ROUTE Lidocaine 1 PAT DAILY 07/28 1800 AC 07/28 EXT 2004 Lidocaine/Epinephrine 0 .STK-MED ONE 08/07 0925 DC .ROUTE Miconazole Nitrate 1 DEMETRA AT BEDTIME 07/29 0130 AC 08/06 VAG 2210 Midazolam HCl 0 .STK-MED ONE 08/07 1132 CAN .ROUTE Norepinephrine 8 MG Q24H 08/05 2330 DC 08/05 Sodium Chloride 250 ML IV 2337 Oxacillin Sodium 2,000 MG Q4 08/03 1400 AC 08/08 Sodium Chloride 100 ML IV 0610 Pregabalin 150 MG BID 07/28 2200 AC 08/07 PO 2054 Quetiapine Fumarate 100 MG AT BEDTIME PRN 08/05 2200 DC 08/05 PO 214 Senna/Docusate Sodium 2 TAB DAILY 07/31 1000 AC 08/06 PO 102 Simethicone 80 MG Q6P PRN 08/03 0830 AC 08/03 PO 1001 Sodium Bicarbonate 1,300 MG TID 08/05 1059 AC 08/07 PO 2054 Impression/Plan Impression/Problem List Impression: 40-year-old lady with a PMH of diabetes, previous right-sided hemorrhagic pleural effusion S/P Pleurx catheter, lytic therapy 2, previous MSSA sepsis likely secondary to pro-line catheter, previous necrotizing fasciitis of the perineum, left pararenal abscess, osteomyelitis of pubic bone, polysubstance abuse, depression, opiate dependence who presented with complaints of right-sided hip pain, found to have pelvic abscess, s/p IR drainage was transferred from to ICU for hypotension, lethargy, and agonal breathing. Her lethargy could be due to opioid overdose, as she responded well to narcan, or it could be due to hypotension (unlikely because her mentation improved even when she was hypotensive). Orta: Day #6 Proline : Day # 2 Central line removed on day #7 Respiratory - Desat to 70%, improved to 88% on 7L O2 * Follow up CXR * Consider lasix if fluid overloaded ID # Pelvic abscess sp IR drainage * Ceftriaxone has been discontinued after 2 days. Received vancomycin for 2 days (last dose 08/03 at 4am). Vanc level 31.8 on 08/03. Vancomycin 1250 Q12 discontinued based on Dr. Dunbar's and pharmacistMayra's recc. Started oxacillin 2g IV q4 for MSSA on 08/03. Today abx day #8 * Proline placed on , August 07. Central line removed. * Dilaudid 1mg Q6P on hold. we tried to obtain pain management consult but they have seen her twice in the past and has noted that she only wants IV dilaudid and she lies, hence they feel that there is nothing to add and they won't consult on her again. * For pain, continue Diclofenac, Lyrica 150 bid, Lidocaine patch * F/U cultures (MSSA) * Plan for discharge to rehab (needs to be on IV abx, hx of drug abuse) * Continue Miconazole * Avoid benzo given hx of benzo dependence * The tube should be open to external gravity drainage via drainage bag. Tube should be flushed Q shift with 10 mL normal saline. Strict output should be measured, not including these flushes. * Consider repeat pelvic CT # Right shoulder pain with decreased passive and active ROM (improving) # Right elbow swelling (improving) - Xray and US obtained * Refuses MRI unless done under anesthesia * Appreciate Ortho (Dr. Schulz) input # The scalp lesion popped 3 PM, with purulent drainage noted - Alopecia noted Metabolic # Acute kidney injury most likely due to IV contrast, NSAIDs, hypotension, urinary retention, vancomycin - Noted worsening of BUN/Cr from 31/0.9 on admission to 56/1.9. Kidney functions continued to worsen despite IVF. She is then placed on 800ml fluid restriction with na bicarb tabs 1300 tid. Renal functions improved from 66/2.9 to 56/1.4 - Renal US did not show hydronephrosis * 1200ml fluid restriction (incl meds) with na bicarb tabs 1300 tid * Appreciate renal input * Celecoxib 100 bid discontinued * Vancomycin discontinued * Orta inserted * No NSAIDs, IV contrast or aminoglycosides # Hyponatremia - Hyponatremia predated renal failure, probably related to ADH release with stress/pain as well as contributed by antidepressants, NSAIDS - 08/03: Na 130 to 121, with glucose around 200. Fena 0.1. Serum osm 290, urine osm 350. * All drips/IV fluids should be put in NS if possible to try and limit free water. # Hyperkalemia - Most likely resultant of renal insufficiency. - 08/04: K improved from 5.6 to 4.6 Cardiovascular # Hypotension (resolved) * Left IJ central line in place * Levophed from 08/01 at 2345 to 08/02 at 1931. * Levophed again started on 08/05 at 2330 , has been discontinued since 08/07 Psych # Depression * Started Sertraline 25 daily, but discontinued due to hyponatremia. * Started on lexapro on 08/05 * Started Quetiapine 100 mg PO at bedtime, but discontinued due to concerns of causing hypotension, restarted on 08/05, discontinued on 08/07 because haldol 2mg po q8p started. * Continue Propanolol 20 bid (hold if hypotensive) * On the W-10 and the discharge instructions, please ask the receiving facility/ ECF to call and make an intake appointment at [facility], [address] [place] [address] when her discharge date is known, . # Agitation * Benadryl changed to IV PRN # Hx of drug abuse Pt transferred to ICU from due to lethargy, agonal breathing and hypotension. 08/06 urine toxicology obtained: opiate 1417 (not surprising given she was given dilaudid, although her last dose was about 10 hours prior to when urine was obtained, was 1868 9 days prior), methadone 86 (same as utox from 9 days prior), PCP (66.50, >72 prior), benzodiazepine (155, received midazolam 08/01during IR procedure), cocaine (165, was >1000 prior), cannabis 5.30 (was 43.10 prior). Negative for barbiturate, amphetamines. Given the positive benzo screen although it has not been ordered for her since she has been in the hospital, it is likely that someone is bringing it to her or it is part of her belongings. Apparently, she is using an inhaler from home. Psych has been been aware of this. * Limit visitors * OP psych follow up * Cannot go home with proline, must go to rehab Endocrine # Diabetes mellitus * Novolog tidac/qhs * Levemir 60 bid ON HOLD ,consider restarting at lower dose * Watch blood sugar closely * Consider endo consult Alimentary * Continue Senna, Docusate Skin - Pt refused to be examined on admission and refused to be changed, very reluctant to be turned - On 07/30: wound care nurse Latia noted unstageable pressure injury to right buttocks and stage 2 ulcers on left buttocks. I have not seen it personally myself because she refuses to turn or even move slightly for me, but these ulcers are most likely present on admission * Wound consult with Dr. English appreciated * Consulted surgery for possible debridement * Consider rectal tube placement Diet: CC3 with 1200 ml fluid restriction DVT ppx: alps and Lovenox FC Consults: ID, psych,renal, ortho, PT, wound, surgery Labs: bep mag phos for acute kidney injury , cbc for leukocytosis Problem List: 1. Right hip pain Pain Ratin Tomorrow's Labs & Rationales: bep mag phos for acute kidney injury , cbc for leukocytosis Plan DVT/Prophylaxis: mechanical, pharmacological
--- NOTE | 2016-08-08 09:46 | PN- Nephrology ---
Assessment/Plan Assessment: 1. BROOKLYNN: ATN post mult insults; improving 2. Acidemia: continue po Nabicarb 3. Hyponatremia: improving Suggestion: 1. continue Na bicarb 1300 mg tid 2. fluid 1200 ml/day will follow prn - thanks Subjective Subjective: Awake - no SOB No uremic sx Nooliguric Remains off pressors Objective Vital Signs and I&Os Vital Signs Date Time Temp Pulse Resp B/P Pulse O2 O2 Flow FiO2 Ox Delivery Rate 08/08 0757 93 Nasal 7.0L Cannula 08/08 0600 98 Nasal 4.0L Cannula 08/08 0052 92 Nasal 4.0L Cannula 08/07 2300 97.6 114 20 110/60 94 Nasal 2.0L Cannula 08/07 2200 94 Nasal 2.0L Cannula 08/07 2114 96 Nasal 2.0L Cannula 08/07 1600 97.0 104 20 110/70 95 Nasal 2.0L Cannula 08/07 1600 96 Nasal 2.0L Cannula 08/07 0955 Room Air Room Air Intake & Output 08/08 1600 08/08 0400 08/07 1600 08/07 0400 08/06 1600 08/06 0400 Intake Total 540 844 7449 646 1224.9 750 Output Total 770 1100 1460 700 350 195 Balance -58 -496 -365 -54 874.9 555 Intake, IV 312 124 655 226 624.9 390 Intake, Oral 400 480 440 420 600 360 Number 1 0 1 0 0 Bowel Movements Output, 20 50 20 Drainage Output, Urine 750 1050 1460 700 350 175 Physical Exam General Appearance: well developed/nourished, no apparent distress Head: atraumatic, normal appearance Ears, Nose, Throat: normal ENT inspection Neck: L sided central line Respiratory: no respiratory distress, quiet respiration, rhonchi Cardiovascular: regular rate/rhythm, friction rub (none heard) Abdomen: soft, tenderness (diffusely to palpation) Extremities: pedal edema Neurologic/Psychiatric: awake, alert, 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 Current Medications: Current Medications Sig/Shahla Start time Last Medication Dose Route Stop Time Status Admin Acetaminophen 1,000 MG Q6P PRN 08/07 1630 AC N/A 1 UNIT IV Acetaminophen 1,000 MG ONCE ONE 08/07 0945 DC 08/07 IV 08/07 0946 1007 Acetaminophen 650 MG Q4 HRS NEEDED PRN 07/31 0800 AC 08/08 PO 0156 Albuterol Sulfate 3 ML BID 08/05 2200 AC 08/08 INH 0754 Albuterol Sulfate 2 PUF Q4P PRN 07/30 2200 AC 08/07 INH 0914 Collagenase 1 DEMETRA DAILY 08/04 1000 AC 08/06 TOP 1229 Diclofenac Sodium 1 DEMETRA TID PRN 07/30 1145 AC 08/05 TOP 2142 Diphenhydramine HCl 50 MG ONCE ONE 08/07 2345 DC 08/08 IV 08/07 2346 0000 Diphenhydramine HCl 50 MG Q6P PRN 08/07 1630 AC 08/08 IV 0902 Diphenhydramine HCl 75 MG Q6P PRN 07/31 1100 DC 08/05 PO 1808 Docusate Sodium 100 MG DAILY 07/31 1000 AC 08/08 PO 0913 Enoxaparin Sodium 40 MG DAILY 08/08 1000 CAN SC Enoxaparin Sodium 40 MG DAILY 08/08 1000 AC SC Escitalopram Oxalate 5 MG 0800 08/06 0800 AC 08/08 PO 0913 Fentanyl Citrate 0 .STK-MED ONE 08/07 1132 DC .ROUTE Haloperidol 2 MG Q8P PRN 08/07 1830 AC 08/08 PO 0402 Haloperidol 1 MG ONCE PRN 08/07 1630 DC PO Hydromorphone HCl 0.2 MG ONCE ONE 08/07 1630 DC 08/07 IV PUSH 08/07 1631 2054 Insulin Aspart 0 TIDAC/HS 08/01 0800 AC 08/08 SC 0909 Ketamine HCl 50 MG .STK-MED ONE 08/07 1055 DC IM 08/07 1056 Lidocaine 1 PAT DAILY 07/28 1800 AC 07/28 EXT 2004 Miconazole Nitrate 1 DEMETRA AT BEDTIME 07/29 0130 AC 08/06 VAG 2210 Midazolam HCl 0 .STK-MED ONE 08/07 1132 CAN .ROUTE Norepinephrine 8 MG Q24H 08/05 2330 DC 08/05 Sodium Chloride 250 ML IV 2337 Oxacillin Sodium 2,000 MG Q4 08/03 1400 AC 08/08 Sodium Chloride 100 ML IV 0910 Pregabalin 150 MG BID 07/28 2200 AC 08/08 PO 0913 Quetiapine Fumarate 100 MG AT BEDTIME PRN 08/05 2200 DC 08/05 PO 2142 Senna/Docusate Sodium 2 TAB DAILY 07/31 1000 AC 08/08 PO 0912 Simethicone 80 MG Q6P PRN 08/03 0830 AC 08/03 PO 1001 Sodium Bicarbonate 1,300 MG TID 08/05 1059 AC 08/08 PO 0913 Results Pertinent Lab Results: Laboratory Tests 08/08 08/07 0409 0353 Chemistry Sodium (137 - 145 mmol/L) 132 L 131 L Potassium (3.5 - 5.1 mmol/L) 4.8 4.9 Chloride (98 - 107 mmol/L) 103 101 Carbon Dioxide (22 - 30 mmol/L) 20 L 19 L Anion Gap (5 - 16) 9 11 BUN (7 - 17 mg/dL) 56 H 66 H Creatinine (0.5 - 1.0 mg/dL) 1.4 H 2.3 H Estimated GFR (>60 ml/min) 42 L 24 L Glucose (65 - 99 mg/dL) 223 H 66 Calcium (8.4 - 10.2 mg/dL) 8.6 8.1 L Phosphorus (2.5 - 4.5 mg/dL) 6.1 H 7.2 H Magnesium (1.6 - 2.3 mg/dL) 2.0 2.0 Total Bilirubin (0.2 - 1.3 mg/dL) 0.3 0.1 L AST (14 - 36 U/L) 67 H 47 H ALT (9 - 52 U/L) 51 40 Albumin (3.5 - 5.0 g/dL) 2.1 L 1.8 L Hematology CBC w Diff NO MAN DIFF REQ MAN DIFF ORDERED WBC (4.8 - 10.8 /CUMM) 13.0 H 12.6 H RBC (4.20 - 5.40 /CUMM) 3.58 L 3.64 L Hgb (12.0 - 16.0 G/DL) 9.4 L 9.6 L Hct (37 - 47 %) 28.8 L 29.2 L MCV (81.0 - 99.0 FL) 80.6 L 80.3 L MCH (27.0 - 31.0 PG) 26.3 L 26.3 L RDW (11.5 - 14.5 %) 18.0 H 17.8 H Plt Count (130 - 400 /CUMM) 271 272 MPV (7.4 - 10.4 FL) 8.0 7.9 Gran % (42.2 - 75.2 %) 94.3 H 94.6 H Lymphocytes % (20.5 - 51.1 %) 4.3 L 4.0 L Monocytes % (1.7 - 9.3 %) 0.5 L 0.5 L Eosinophils % (0 - 5 %) 0.8 0.9 Basophils % (0.0 - 2.0 %) 0.1 0 L Absolute Granulocytes (1.4 - 6.5 /CUMM) 12.3 H 11.9 H Segmented Neutrophils (42.2 - 75.2 %) 91 H Band Neutrophils (0.0 - 5.0 %) 7 H Absolute Lymphocytes (1.2 - 3.4 /CUMM) 0.6 L 0.5 L Lymphocytes (20.5 - 51.1 %) 2 L Absolute Monocytes (0.10 - 0.60 /CUMM) 0.1 L 0.1 L Absolute Eosinophils (0.0 - 0.7 /CUMM) 0.1 0.1 Absolute Basophils (0.0 - 0.2 /CUMM) 0 0 Platelet Estimate (ADEQUATE) ADEQUATE Polychromasia 1+ Hypochromic-Microcytic 1+ Poikilocytosis 1+ Ovalocytes 1+ PUBS MCHC (33.0 - 37.0 G/DL) 32.7 L 32.8 L Other Body Source Fld Total RBCs Counted (%) 100 Serology HIV 1&2 Ab Western Blot (NONREACTIVE) NONREACTIVE 08/06 08/06 08/06 1215 1015 4999 Chemistry Sodium (137 - 145 mmol/L) 125 L Potassium (3.5 - 5.1 mmol/L) 5.4 H Chloride (98 - 107 mmol/L) 98 Carbon Dioxide (22 - 30 mmol/L) 18 L Anion Gap (5 - 16) 8 BUN (7 - 17 mg/dL) 66 H Creatinine (0.5 - 1.0 mg/dL) 2.9 H Estimated GFR (>60 ml/min) 18 L BUN/Creatinine Ratio (7 - 25 %) 22.8 Phosphorus (2.5 - 4.5 mg/dL) 7.1 H Magnesium (1.6 - 2.3 mg/dL) 1.9 Hematology CBC w Diff MAN DIFF ORDERED WBC (4.8 - 10.8 /CUMM) 14.6 H RBC (4.20 - 5.40 /CUMM) 3.92 L Hgb (12.0 - 16.0 G/DL) 10.3 L Hct (37 - 47 %) 31.5 L MCV (81.0 - 99.0 FL) 80.3 L MCH (27.0 - 31.0 PG) 26.2 L RDW (11.5 - 14.5 %) 17.6 H Plt Count (130 - 400 /CUMM) 232 MPV (7.4 - 10.4 FL) 8.0 Gran % (42.2 - 75.2 %) 95.3 H Lymphocytes % (20.5 - 51.1 %) 3.6 L Monocytes % (1.7 - 9.3 %) 0.5 L Eosinophils % (0 - 5 %) 0.6 Basophils % (0.0 - 2.0 %) 0 L Absolute Granulocytes (1.4 - 6.5 /CUMM) 13.9 H Segmented Neutrophils (42.2 - 75.2 %) 86 H Band Neutrophils (0.0 - 5.0 %) 6 H Absolute Lymphocytes (1.2 - 3.4 /CUMM) 0.5 L Lymphocytes (20.5 - 51.1 %) 4 L Monocytes (1.7 - 9.3 %) 3 Absolute Monocytes (0.10 - 0.60 /CUMM) 0.1 L Eosinophils (0 - 5.0 %) 1 Absolute Eosinophils (0.0 - 0.7 /CUMM) 0.1 Absolute Basophils (0.0 - 0.2 /CUMM) 0 Platelet Estimate (ADEQUATE) ADEQUATE Polychromasia 1+ Hypochromic-Microcytic 1+ Poikilocytosis 1+ Basophilic Stippling SLIGHT Ovalocytes 1+ PUBS MCHC (33.0 - 37.0 G/DL) 32.6 L Other Body Source Fld Total RBCs Counted (%) 100 Toxicology Urine Opiates Screen (>2000 NG/ML) 1290.00 1417.00 Methadone Screen (>300 NG/ML) 84 86 Barbiturate Screen (>200 NG/ML) < 60 < 60 Ur Phencyclidine Scrn (>25 NG/ML) 63.50 H 66.50 H Amphetamines Screen (>1000 NG/ML) < 100 < 100 U Benzodiazepines Scrn (>200 NG/ML) 136 155 Urine Cocaine Screen (>300 NG/ML) 167 165 Urine Cannabis Screen (>50 NG/ML) < 5.00 5.30 08/06 08/06 08/06 0035 0006 0005 Blood Gas pH (7.35 - 7.45 PH) 7.26 *L pCO2 (35 - 45 TORR) 38 pO2 (80 - 100 TORR) 73 L HCO3 (21 - 28 MEQ/L) 17 L ABG O2 Sat (Measured) (>96.0 %) 95.0 L P-50 (Temp Corrected) Y Carboxyhemoglobin (1.5 - 5.0 %) 0.3 L O2 Concentration % 3 LPM Temperature (97.0 - 100.0 FARH) 95.6 L O2 Delivery Method N/C Chemistry Lactic Acid (0.7 - 2.1 mmol/L) 2.0 Hematology CBC w Diff MAN DIFF ORDERED WBC (4.8 - 10.8 /CUMM) 11.8 H RBC (4.20 - 5.40 /CUMM) 3.96 L Hgb (12.0 - 16.0 G/DL) 10.5 L Hct (37 - 47 %) 31.8 L MCV (81.0 - 99.0 FL) 80.2 L MCH (27.0 - 31.0 PG) 26.4 L RDW (11.5 - 14.5 %) 17.3 H Plt Count (130 - 400 /CUMM) 224 MPV (7.4 - 10.4 FL) 7.9 Gran % (42.2 - 75.2 %) 94.9 H Lymphocytes % (20.5 - 51.1 %) 4.0 L Monocytes % (1.7 - 9.3 %) 0.5 L Eosinophils % (0 - 5 %) 0.5 Basophils % (0.0 - 2.0 %) 0.1 Absolute Granulocytes (1.4 - 6.5 /CUMM) 11.2 H Segmented Neutrophils (42.2 - 75.2 %) 81 H Band Neutrophils (0.0 - 5.0 %) 8 H Absolute Lymphocytes (1.2 - 3.4 /CUMM) 0.5 L Lymphocytes (20.5 - 51.1 %) 6 L Monocytes (1.7 - 9.3 %) 2 Absolute Monocytes (0.10 - 0.60 /CUMM) 0.1 L Eosinophils (0 - 5.0 %) 2 Absolute Eosinophils (0.0 - 0.7 /CUMM) 0.1 Basophils (0.0 - 2.0 %) 1 Absolute Basophils (0.0 - 0.2 /CUMM) 0 Platelet Estimate (ADEQUATE) ADEQUATE Polychromasia 1+ Poikilocytosis 1+ Ovalocytes 1+ PUBS MCHC (33.0 - 37.0 G/DL) 33.0 Miscellaneous Phlebotomy Draw Site LEFT RADIAL Other Body Source Fld Total RBCs Counted (%) 100 08/05 08/05 08/05 08/05 2351 1600 1300 UNK Chemistry Sodium (137 - 145 mmol/L) 124 L 123 L Cancelled Cancelled Potassium (3.5 - 5.1 mmol/L) 5.3 H 5.2 H Cancelled Cancelled Chloride (98 - 107 mmol/L) 98 96 L Cancelled Cancelled Carbon Dioxide (22 - 30 mmol/L) 19 L 18 L Cancelled Cancelled Anion Gap (5 - 16) 7 9 Cancelled Cancelled BUN (7 - 17 mg/dL) 65 H 62 H Cancelled Cancelled Creatinine (0.5 - 1.0 mg/dL) 2.9 H 2.6 H Cancelled Cancelled Estimated GFR (>60 ml/min) 18 L 20 L BUN/Creatinine Ratio (7 - 25 %) 23.8 Cancelled Glucose (65 - 99 mg/dL) 74 Cancelled Calcium (8.4 - 10.2 mg/dL) 7.9 L Cancelled Phosphorus (2.5 - 4.5 mg/dL) 7.1 H Cancelled Magnesium (1.6 - 2.3 mg/dL) 1.9 Cancelled Total Bilirubin (0.2 - 1.3 mg/dL) 0.1 L Cancelled AST (14 - 36 U/L) 29 Cancelled ALT (9 - 52 U/L) 27 Cancelled Troponin I (< 0.11 ng/ml) < 0.01 Albumin (3.5 - 5.0 g/dL) 1.7 L Cancelled Imaging/Other Studies: CXR: IMPRESSION: No significant change since prior chest x-ray. Persistent pulmonary vascular congestion, persistent bilateral airspace disease and persistent right pleural effusion. Possible right basilar infiltrate or atelectasis
--- NOTE | 2016-08-08 11:12 | PN- Infect Dx ---
Subjective Subjective: Afebrile. She reports no new complaints but states she is very tired and wants to sleep. She remains resistant to a full exam. She had 1 loose, foul-smelling bowel movement this morning. Objective Last 24 Hrs of Vital Signs/I&O Vital Signs Date Time Temp Pulse Resp B/P Pulse O2 O2 Flow FiO2 Ox Delivery Rate 08/08 1033 Room Air Room Air 08/08 0757 93 Nasal 7.0L Cannula 08/08 0600 98 Nasal 4.0L Cannula 08/08 0052 92 Nasal 4.0L Cannula 08/07 2300 97.6 114 20 110/60 94 Nasal 2.0L Cannula 08/07 2200 94 Nasal 2.0L Cannula 08/07 2114 96 Nasal 2.0L Cannula 08/07 1600 97.0 104 20 110/70 95 Nasal 2.0L Cannula 08/07 1600 96 Nasal 2.0L Cannula Intake & Output 08/08 1600 08/08 0800 08/08 0000 Intake Total 712 604 Output Total 770 1100 Balance -58 -496 Intake, IV 312 124 Intake, Oral 400 480 Number 1 0 Bowel Movements Output, 20 50 Drainage Output, Urine 750 1050 Physical Exam Other Physical Findings: She appears comfortable in no acute distress Chest Pro-Line in the left upper chest with no inflammation at the site Lungs are clear Heart regular rhythm with no murmur Abdomen soft, nontender with drainage catheter in place, with 50 mL output yesterday Extremities decreased swelling and erythema of the right forearm and elbow area, with decreased tenderness on palpation; right hip difficult to exam secondary to patient resistance Orta catheter remains in place Results Last 24 Hours of Lab Results: Laboratory Tests 08/08 0409 Chemistry Sodium (137 - 145 mmol/L) 132 L Potassium (3.5 - 5.1 mmol/L) 4.8 Chloride (98 - 107 mmol/L) 103 Carbon Dioxide (22 - 30 mmol/L) 20 L Anion Gap (5 - 16) 9 BUN (7 - 17 mg/dL) 56 H Creatinine (0.5 - 1.0 mg/dL) 1.4 H Estimated GFR (>60 ml/min) 42 L Glucose (65 - 99 mg/dL) 223 H Calcium (8.4 - 10.2 mg/dL) 8.6 Phosphorus (2.5 - 4.5 mg/dL) 6.1 H Magnesium (1.6 - 2.3 mg/dL) 2.0 Total Bilirubin (0.2 - 1.3 mg/dL) 0.3 AST (14 - 36 U/L) 67 H ALT (9 - 52 U/L) 51 Albumin (3.5 - 5.0 g/dL) 2.1 L Hematology CBC w Diff NO MAN DIFF REQ WBC (4.8 - 10.8 /CUMM) 13.0 H RBC (4.20 - 5.40 /CUMM) 3.58 L Hgb (12.0 - 16.0 G/DL) 9.4 L Hct (37 - 47 %) 28.8 L MCV (81.0 - 99.0 FL) 80.6 L MCH (27.0 - 31.0 PG) 26.3 L RDW (11.5 - 14.5 %) 18.0 H Plt Count (130 - 400 /CUMM) 271 MPV (7.4 - 10.4 FL) 8.0 Gran % (42.2 - 75.2 %) 94.3 H Lymphocytes % (20.5 - 51.1 %) 4.3 L Monocytes % (1.7 - 9.3 %) 0.5 L Eosinophils % (0 - 5 %) 0.8 Basophils % (0.0 - 2.0 %) 0.1 Absolute Granulocytes (1.4 - 6.5 /CUMM) 12.3 H Absolute Lymphocytes (1.2 - 3.4 /CUMM) 0.6 L Absolute Monocytes (0.10 - 0.60 /CUMM) 0.1 L Absolute Eosinophils (0.0 - 0.7 /CUMM) 0.1 Absolute Basophils (0.0 - 0.2 /CUMM) 0 PUBS MCHC (33.0 - 37.0 G/DL) 32.7 L Last 24 Hours of [place] Results: No recent cultures Assessment/Plan Impression: Overall improved, with blood pressure up off pressors, renal function normalizing and temperatures remaining normal on Oxacillin for a pelvic abscess secondary to MSSA, status post drainage one week ago. Her white blood cell count remains mildly elevated, possibly secondary to her persistent inflammation in the right upper extremity, though this appears improved and further imaging can be deferred at this time. Her sacral decubitus is being evaluated, with surgical evaluation recommended. Suggestion: 1. Ensure that her drainage catheter is being flushed as per IR recommendations 2. Will need a repeat CT of the pelvis when drainage becomes minimal 3. Await surgical evaluation of her sacral decubitus 4. Continue Oxacillin
--- NOTE | 2016-08-08 12:25 | PN- Orthopedic ---
Subjective Subjective: Patient seen and examined this morning. She refuses to participate in examination and asked repeatedly to be left alone. States she is in "severe pain ", does not think her arm is any better. Objective Vital Signs and I&Os Vital Signs Date Time Temp Pulse Resp B/P Pulse O2 O2 Flow FiO2 Ox Delivery Rate 08/08 1033 Room Air Room Air 08/08 0800 97.7 60 20 88/46 91 Nasal 4.0L Cannula 08/08 0757 93 Nasal 7.0L Cannula 08/08 0600 98 Nasal 4.0L Cannula 08/08 0052 92 Nasal 4.0L Cannula 08/07 2300 97.6 114 20 110/60 94 Nasal 2.0L Cannula 08/07 2200 94 Nasal 2.0L Cannula 08/07 2114 96 Nasal 2.0L Cannula 08/07 1600 97.0 104 20 110/70 95 Nasal 2.0L Cannula 08/07 1600 96 Nasal 2.0L Cannula Intake & Output 08/08 1600 08/08 0800 08/08 0000 08/07 1600 08/07 0800 08/07 0000 Intake Total 712 604 765 330 646 Output Total 770 1100 760 700 700 Balance -58 -496 5 -370 -54 Intake, IV 312 124 325 330 226 Intake, Oral 400 480 440 420 Number 1 0 1 Bowel Movements Output, 20 50 Drainage Output, Urine 750 1050 760 700 700 Physical Exam: Patient awakens to voice, responds to questions but refuses to participate in examination. Strong odor of feces in room. RUE: Patient holding right arm at 90 deg angle. Refuses to participate in examination or move arm/fingers Cellulitis over right elbow and proximal forearm; regressed from proximal markings but similar around distal forearm. Forearm soft, compressible. Skin dry. Assessment/Plan Assessment/Plan 41yo F with right arm cellulitis, slowly improving on IV abx. Low concern for septic joint, although she has a long history of soft tissue abscesses. Currently treating with Oxacillin for MSSA right pelvic abscess; line placed yesterday. 1. Continue IV abx and observation of right arm cellulitis. 2. Patient may develop blisters/bullae from decreased in swelling; treat conservatively. 3. Continue medical management of complex case. 4. Consider advanced imaging (CT or MRI) if worsening cellulitis or decline in function (although patient does not participate in examination today, she was previously moving right elbow/arm with minimal pain). Will continue to follow.
--- NOTE | 2016-08-08 15:11 | PN- Psychiatry ---
Assessment/Plan Impression: Patient is a 41-year old female with a complicated medical history, poysubstance abuse and PTSD. She remains present in [facility]. Continues to report increased pain and was overheard verbally challenging nursing and medical staff, negotiating medical procedures for pain medications. Informed by nursing staff that during XR today patient made a concerning statement that she wanted to . Followed up with patient regarding this statement who denied passive and active suicidal ideation, plans and intent. She denied homicidal ideation. She stated and also believed she will not harm herself or others. She reported that she was in a great amount of physical pain while under XR so she made statement, and reported this statement was not literal. She reported protective factors of her "children." She was alert and oriented to person, place, time and situation. Thought process was linear and organized. Thought content was anxious 2/2 pain. Cognition was grossly intact. Reviewed patient's progress today with Dr. Rose Sun who reported patient has returned mostly to her baseline and reported no acute safety concerns. Patient is tolerating Haldol 2mg Q8H prn for agitation; she denied symptoms of movement disorder or rigidity. There was no evidence of cogwheeling. Patient was agreeable to considering outpatient psychiatric treatment at [facility], once discharged from receiving facility. 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 Continue Haldol 2mg po Q8H prn for agitation. a. Monitor EKG and hold for arrhythmia or QTc greater than 475 mS. b. Monitor and replete electrolytes to the upper portion of the normal range, especially potassium and magnesium. 2. Recommend increase in Lexapro to 10mg daily for depression/anxiety. 3. On the -10 and the discharge instructions, please ask the receiving facility /ECF to call and make an intake appointment at [facility], [address] [place] [address] when her discharge date is known, . Subjective Subjective: Gait: nonambulatory Sleep: "fine" Appetite: "fine" Objective Last 24 Hrs of Vital Signs/I&O Vital Signs Date Time Temp Pulse Resp B/P Pulse O2 O2 Flow FiO2 Ox Delivery Rate 08/08 1033 Room Air Room Air 08/08 08 97.7 60 20 88/46 91 Nasal 4.0L Cannula 08/08 0757 93 Nasal 7.0L Cannula 08/08 0600 98 Nasal 4.0L Cannula 08/08 0052 92 Nasal 4.0L Cannula 08/07 2300 97.6 114 20 110/60 94 Nasal 2.0L Cannula 08/07 2199 94 Nasal 2.0L Cannula 08/07 2114 96 Nasal 2.0L Cannula 08/07 1600 97.0 104 20 110/70 95 Nasal 2.0L Cannula 08/07 1600 96 Nasal 2.0L Cannula Intake & Output 08/08 1600 08/08 0800 08/08 0000 Intake Total 712 604 Output Total 770 1100 Balance -58 -496 Intake, IV 312 124 Intake, Oral 400 480 Number 1 0 Bowel Movements Output, 20 50 Drainage Output, Urine 750 1050 Physical Exam: Mental Status Exam Presentation/Appearance: 40 CF appears older than stated age, obese, sedentary, wearing hospital garb. Orientation: Oriented to person, place, year and month. Sensorium: Awake and alert Eye contact: appropriate Affect: labile (irritable, tearful) Mood: irritable. Depression: 5 /10 (10 being the worst) secondary to pain Anxiety: 10 /10 (10 being the worst) secondary to pain Thought Content: - pt denies SI/HI, plans or intent. - pt reported hopeless/helpless thoughts regarding pain issues Thought Process: linear Speech: loud, demanding, spontaneous Judgment: limited Insight: limited Cognition: grossly intact Memory: grossly intact Attention/Concentration: distractable, short secondary to pain issues. Current Medications: Current Medications Sig/Shahla Start time Last Medication Dose Route Stop Time Status Admin Acetaminophen 650 MG .STK-MED ONE 08/08 0151 DC PO 08/08 0152 Acetaminophen 1,000 MG Q6P PRN 08/07 1630 AC N/A 1 UNIT IV Acetaminophen 650 MG Q4 HRS NEEDED PRN 07/31 0800 AC 08/08 PO 0156 Albuterol Sulfate 3 ML BID 08/05 2200 AC 08/08 INH 1259 Albuterol Sulfate 2 PUF Q4P PRN 07/30 220 AC 08/07 INH 0914 Collagenase 1 DEMETRA DAILY 08/04 1000 AC 08/06 TOP 1229 Diclofenac Sodium 1 DEMETRA TID PRN 07/30 1145 AC 08/05 TOP 2142 Diphenhydramine HCl 50 MG ONCE ONE 08/07 2345 DC 08/08 IV 08/07 2346 0000 Diphenhydramine HCl 50 MG Q6P PRN 08/07 1630 AC 08/08 IV 1500 Diphenhydramine HCl 75 MG Q6P PRN 07/31 1100 DC 08/05 PO 1808 Docusate Sodium 100 MG DAILY 07/31 1000 AC 08/08 PO 0913 Enoxaparin Sodium 40 MG DAILY 08/08 1000 CAN SC Enoxaparin Sodium 40 MG DAILY 08/08 1000 AC SC Escitalopram Oxalate 5 MG 0800 08/06 0800 AC 08/08 PO 0913 Haloperidol 2 MG Q8P PRN 08/07 1830 AC 08/08 PO 1500 Haloperidol 1 MG ONCE PRN 08/07 1630 DC PO Hydromorphone HCl 0.2 MG ONCE ONE 08/08 1500 DC IV PUSH 08/08 1501 Hydromorphone HCl 0.2 MG ONCE ONE 08/07 1630 DC 08/07 IV PUSH 08/07 1631 2054 Insulin Aspart 0 TIDAC/HS 08/01 0800 AC 08/08 SC 1343 Lidocaine 1 PAT DAILY 07/28 1800 AC 07/28 EXT 2004 Miconazole Nitrate 1 DEMETRA AT BEDTIME 07/29 0130 AC 08/06 VAG 2210 Midazolam HCl 0 .STK-MED ONE 08/07 1132 CAN .ROUTE Norepinephrine 8 MG Q24H 08/05 2330 DC 08/05 Sodium Chloride 250 ML IV 2337 Oxacillin Sodium 2,000 MG Q4 08/03 1400 AC 08/08 Sodium Chloride 100 ML IV 1347 Pregabalin 150 MG BID 07/28 2200 AC 08/08 PO 0913 Quetiapine Fumarate 100 MG AT BEDTIME PRN 08/05 2200 DC 08/05 PO 2142 Senna/Docusate Sodium 2 TAB DAILY 07/31 1000 AC 08/08 PO 0912 Simethicone 80 MG Q6P PRN 08/03 0830 AC 08/03 PO 1001 Sodium Bicarbonate 1,300 MG TID 08/05 1059 AC 08/08 PO 0913 Results Last 24 Hrs of Labs/Mics: Laboratory Tests 08/08 0409 Chemistry Sodium (137 - 145 mmol/L) 132 L Potassium (3.5 - 5.1 mmol/L) 4.8 Chloride (98 - 107 mmol/L) 103 Carbon Dioxide (22 - 30 mmol/L) 20 L Anion Gap (5 - 16) 9 BUN (7 - 17 mg/dL) 56 H Creatinine (0.5 - 1.0 mg/dL) 1.4 H Estimated GFR (>60 ml/min) 42 L Glucose (65 - 99 mg/dL) 223 H Calcium (8.4 - 10.2 mg/dL) 8.6 Phosphorus (2.5 - 4.5 mg/dL) 6.1 H Magnesium (1.6 - 2.3 mg/dL) 2.0 Total Bilirubin (0.2 - 1.3 mg/dL) 0.3 AST (14 - 36 U/L) 67 H ALT (9 - 52 U/L) 51 Albumin (3.5 - 5.0 g/dL) 2.1 L Hematology CBC w Diff NO MAN DIFF REQ WBC (4.8 - 10.8 /CUMM) 13.0 H RBC (4.20 - 5.40 /CUMM) 3.58 L Hgb (12.0 - 16.0 G/DL) 9.4 L Hct (37 - 47 %) 28.8 L MCV (81.0 - 99.0 FL) 80.6 L MCH (27.0 - 31.0 PG) 26.3 L RDW (11.5 - 14.5 %) 18.0 H Plt Count (130 - 400 /CUMM) 271 MPV (7.4 - 10.4 FL) 8.0 Gran % (42.2 - 75.2 %) 94.3 H Lymphocytes % (20.5 - 51.1 %) 4.3 L Monocytes % (1.7 - 9.3 %) 0.5 L Eosinophils % (0 - 5 %) 0.8 Basophils % (0.0 - 2.0 %) 0.1 Absolute Granulocytes (1.4 - 6.5 /CUMM) 12.3 H Absolute Lymphocytes (1.2 - 3.4 /CUMM) 0.6 L Absolute Monocytes (0.10 - 0.60 /CUMM) 0.1 L Absolute Eosinophils (0.0 - 0.7 /CUMM) 0.1 Absolute Basophils (0.0 - 0.2 /CUMM) 0 PUBS MCHC (33.0 - 37.0 G/DL) 32.7 L Thank you for including psychiatry in this case. We are signing off at this time. Please reconsult if further matters arise.
--- NOTE | 2016-08-08 15:41 | RADIOLOGY REPORT ---
EXAMINATION: XR PORTABLE CHEST CLINICAL INFORMATION: 41-year-old female with shortness of breath. Evaluate for pulmonary edema. COMPARISON: August 06, 2016 TECHNIQUE: Portable AP view of the chest was obtained. FINDINGS: Interval placement of a tunneled left internal jugular vein central venous catheter with tip in the superior cavoatrial junction. There are low lung volumes. No significant interval change in hazy bilateral alveolar opacities and mild central hilar pulmonary vascular prominence. Small right pleural effusion appears slightly decreased compared to prior. No focal consolidation. No pneumothorax. No acute osseous abnormality. Stomach appears distended. IMPRESSION: Slight interval decrease in right pleural effusion. Persistent low lung volumes with no significant change in pulmonary vascular congestion and bilateral airspace disease which may represent edema and/or pneumonia.
--- NOTE | 2016-08-08 15:43 | PN- [facility] ---
Subjective HPI/Critical Care Issues: pt seen and examined demanding pain medications patient is appears comfortable outside of room until encounter begins and immediately starts to ask for medication when asked for pain speicifics, patient says everywhere the same and not providing an adequate assessment, also does not allow for a full physicial examination Objective Current Medications: Current Medications Sig/Shahla Start time Last Medication Dose Route Stop Time Status Admin Acetaminophen 650 MG .STK-MED ONE 08/08 0151 DC PO 08/08 0152 Acetaminophen 1,000 MG Q6P PRN 08/07 1630 AC N/A 1 UNIT IV Acetaminophen 650 MG Q4 HRS NEEDED PRN 07/31 0800 AC 08/08 PO 0156 Albuterol Sulfate 3 ML BID 08/05 2200 AC 08/08 INH 1259 Albuterol Sulfate 2 PUF Q4P PRN 07/30 2200 AC 08/07 INH 0914 Collagenase 1 DEMETRA DAILY 08/04 1000 AC 08/06 TOP 1229 Diclofenac Sodium 1 DEMETRA TID PRN 07/30 1145 AC 08/05 TOP 2142 Diphenhydramine HCl 50 MG ONCE ONE 08/07 2345 DC 08/08 IV 08/07 2346 0000 Diphenhydramine HCl 50 MG Q6P PRN 08/07 1630 AC 08/08 IV 1500 Diphenhydramine HCl 75 MG Q6P PRN 07/31 1100 DC 08/05 PO 1808 Docusate Sodium 100 MG DAILY 07/31 1000 AC 08/08 PO 0913 Enoxaparin Sodium 40 MG DAILY 08/08 1000 AC SC Escitalopram Oxalate 5 MG 0800 08/06 0800 AC 08/08 PO 0913 Haloperidol 2 MG Q8P PRN 08/07 1830 AC 08/08 PO 1500 Haloperidol 1 MG ONCE PRN 08/07 1630 DC PO Hydromorphone HCl 0.2 MG ONCE ONE 08/08 1500 DC 08/08 IV PUSH 08/08 1501 1513 Hydromorphone HCl 0.2 MG ONCE ONE 08/07 1630 DC 08/07 IV PUSH 08/07 1631 2054 Insulin Aspart 0 TIDAC/HS 08/01 0800 AC 08/08 SC 1343 Lidocaine 1 PAT DAILY 07/28 1800 AC 07/28 EXT 2004 Miconazole Nitrate 1 DEMETRA AT BEDTIME 07/29 0130 AC 08/06 VAG 2210 Midazolam HCl 0 .STK-MED ONE 08/07 1132 CAN .ROUTE Norepinephrine 8 MG Q24H 08/05 2330 DC 08/05 Sodium Chloride 250 ML IV 2337 Oxacillin Sodium 2,000 MG Q4 08/03 1400 AC 08/08 Sodium Chloride 100 ML IV 1347 Pregabalin 150 MG BID 07/28 2200 AC 08/08 PO 0913 Quetiapine Fumarate 100 MG AT BEDTIME PRN 08/05 2200 DC 08/05 PO 2142 Senna/Docusate Sodium 2 TAB DAILY 07/31 1000 AC 08/08 PO 0912 Simethicone 80 MG Q6P PRN 08/03 0830 AC 08/03 PO 1001 Sodium Bicarbonate 1,300 MG TID 08/05 1059 AC 08/08 PO 0913 Vital Signs & I&O Last 24 Hrs of Vitals and I&O: Vital Signs Date Time Temp Pulse Resp B/P Pulse O2 O2 Flow FiO2 Ox Delivery Rate 08/08 1033 Room Air Room Air 08/08 0800 97.7 60 20 88/46 91 Nasal 4.0L Cannula 08/08 0757 93 Nasal 7.0L Cannula 08/08 0600 98 Nasal 4.0L Cannula 08/08 0052 92 Nasal 4.0L Cannula 08/07 2300 97.6 114 20 110/60 94 Nasal 2.0L Cannula 08/07 220 94 Nasal 2.0L Cannula 08/074 96 Nasal 2.0L Cannula 08/07 1600 97.0 104 20 110/70 95 Nasal 2.0L Cannula 08/07 1600 96 Nasal 2.0L Cannula Intake & Output 08/08 1600 08/08 0800 08/08 0000 Intake Total 712 604 Output Total 770 1100 Balance -58 -496 Intake, IV 312 124 Intake, Oral 400 480 Number 1 0 Bowel Movements Output, 20 50 Drainage Output, Urine 750 1050 Exam Other Physical Findings: gen awake and alert heent proline cvs s1, s2 lungs ctab anteriorly abd obese ext without edema Results Last 24 Hrs of Lab Results: Laboratory Tests 08/08/16 0409: Anion Gap 9, Estimated GFR 42 L, Glucose 223 H, Calcium 8.6, Phosphorus 6.1 H , Magnesium 2.0, Total Bilirubin 0.3, AST 67 H, ALT 51, Albumin 2.1 L, CBC w Diff NO MAN DIFF REQ, RBC 3.58 L, MCV 80.6 L, MCH 26.3 L, RDW 18.0 H, MPV 8.0, Gran % 94.3 H, Lymphocytes % 4.3 L, Monocytes % 0.5 L, Eosinophils % 0.8 , Basophils % 0.1, Absolute Granulocytes 12.3 H, Absolute Lymphocytes 0.6 L, Absolute Monocytes 0.1 L, Absolute Eosinophils 0.1, Absolute Basophils 0, PUBS MCHC 32.7 L Impression/Plan Impression/Plan Impression/Plan: Impression 40 year old woman - hx of multiple collections/pus, MSSA - loculated right pleural effusion chronic - hyponatremia significantly improved - [place] significantly improved Plan - oxacillin, ID following - nephrology following - pain control - hemodynamic monitoring - off levophed - monitor mag, phos, k and replete as needed - finger stick monitoring - DVT prophylaxis F/u psych, minimizing opiates, will use tylenol, benadryl, haldol TTS 35 min DG to gen med
--- NOTE | 2016-08-08 15:48 | RADIOLOGY REPORT ---
EXAMINATION: XR PORTABLE ABDOMEN CLINICAL INFORMATION: Abdominal pain, evaluate for free air. Epigastric mass. COMPARISON: 03/31/2015, CT TECHNIQUE: A single AP supine abdominal film is provided. FINDINGS: An abdominal collection of air conforms to the shape of a moderately to markedly air-filled stomach. Believe this is less likely to represent intraperitoneal free air on this supine view. Decubitus or upright views versus CT imaging could be performed to further evaluate. There are multiple air-filled loops of mildly distended small bowel loops also identified. IMPRESSION: Probable air-filled distended stomach and mildly dilated air-filled small bowel loops. Follow-up imaging is recommended as noted above.
[2016-08-08 16:00] VITALS: BP 100/80
--- NOTE | 2016-08-08 18:47 | Cons- General Surgery ---
General Information and HPI Consulting Request Date of Consult: 08/08/16 Requested By: ERIBERTO MORATAYA M.D History of Present Illness: adamantly refusing to allow me to examine her back even knowing there could be an infection there, given her history, I came twice today, will try tomorrow. Allergies/Medications Allergies: Coded Allergies: codeine (Intermediate, HIVES 06/17/16) nickel (Intermediate, RASH 06/17/16) adhesive tape (Mild, RASH 06/17/16) duloxetine (Intermediate, NAUSEA 06/17/16) hydrocodone (GI UPSET (ESOPHAGITIS) 06/17/16) ibuprofen (GI UPSET (ESOPHAGITIS) 06/17/16) Home Med List: Albuterol Sulfate (Proair Hfa) 90 MCG HFA.AER.AD 2 PUF INH Q4-6 PRN PRN SOB ( Reported) Albuterol Sulfate 2.5 MG/3 ML (0.083 %) VIAL.NEB 3 ML INH Q4 HRS NEEDED PRN SHORTNESS OF BREATH Collagenase Clostridium Hist. (Santyl) 250 UNIT/GRAM OINT...G. 1 DEMETRA TOP DAILY wound care of decubitus ulcer Diclofenac Sodium (Voltaren) 1 % GEL..GRAM. 1 DEMETRA TOP TID PRN PAIN SCALE 4-6 ( MODERATE) Diphenhydramine HCl 50 MG/ML VIAL 50 MG IV Q6P PRN ANXIETY Heparin Sodium,Porcine (Heparin Sodium) 5,000 UNIT/ML VIAL 5,000 UNIT SC Q8 DVT PPX Hydromorphone (Hydromorphone HCl 2 MG/Ml Amp) 2 MG/ML AMPUL 1 MG IV Q4P PRN PAIN SCALE 7-10 (SEVERE) Insulin Regular (Novolin R Inj) 1,000 UNITS/10 ML PANCHITO 0 UNITS SC Q6 NPO SLIDING SCALE EVERY 6 HOURS Blood Insulin Sugar Units <80 1 81-100 1 101-150 2 151-200 4 201-250 6 251-300 8 301-350 10 351-400 12 Meropenem 1 GRAM VIAL 1 GM IV IQ8 sepsis Miconazole Nitrate 2 % CREAM.APPL 1 DEMETRA VAG AT BEDTIME fungal infections Nystatin 100,000 UNIT/GRAM CREAM..G. 1 DEMETRA TOP TID PRN fungal infection Pantoprazole Sodium (Protonix) 40 MG TABLET.DR 40 MG IV DAILY GASTRIC PROPHYLAXIS Current Medications: I reviewed Current Medications Sig/Shahla Start time Last Medication Dose Route Stop Time Status Admin Acetaminophen 1,000 MG ONCE ONE 08/08 1730 DC 08/08 IV 08/08 1731 1742 Acetaminophen 650 MG .STK-MED ONE 08/08 0151 DC PO 08/08 0152 Acetaminophen 1,000 MG Q6P PRN 08/07 1630 AC 08/08 N/A 1 UNIT IV 1731 Acetaminophen 650 MG Q4 HRS NEEDED PRN 07/31 0800 AC 08/08 PO 0156 Albuterol Sulfate 3 ML BID 08/05 2200 AC 08/08 INH 1756 Albuterol Sulfate 2 PUF Q4P PRN 07/30 2200 AC 08/07 INH 0914 Collagenase 1 DEMETRA DAILY 08/04 1000 AC 08/06 TOP 1229 Diclofenac Sodium 1 DEMETRA TID PRN 07/30 1145 AC 08/05 TOP 2142 Diphenhydramine HCl 50 MG ONCE ONE 08/07 2345 DC 08/08 IV 08/07 2346 0000 Diphenhydramine HCl 50 MG Q6P PRN 08/07 1630 AC 08/08 IV 1500 Docusate Sodium 100 MG DAILY 07/31 1000 AC 08/08 PO 0913 Enoxaparin Sodium 40 MG DAILY 08/08 1000 AC SC Escitalopram Oxalate 5 MG 0800 08/06 0800 AC 08/08 PO 0913 Haloperidol 2 MG Q8P PRN 08/07 1830 AC 08/08 PO 1500 Hydromorphone HCl 0.2 MG ONCE ONE 08/08 1500 DC 08/08 IV PUSH 08/08 1501 1513 Insulin Aspart 0 TIDAC/HS 08/01 0800 AC 08/08 SC 1343 Lidocaine 1 PAT DAILY 07/28 1800 AC 07/28 EXT 2004 Miconazole Nitrate 1 DEMETRA AT BEDTIME 07/29 0130 AC 08/06 VAG 2210 Oxacillin Sodium 2,000 MG Q4 08/03 1400 AC 08/08 Sodium Chloride 100 ML IV 1347 Pregabalin 150 MG BID 07/28 2200 AC 08/08 PO 0913 Senna/Docusate Sodium 2 TAB DAILY 07/31 1000 AC 08/08 PO 0912 Simethicone 80 MG Q6P PRN 08/03 0830 AC 08/03 PO 1001 Sodium Bicarbonate 1,300 MG TID 08/05 1059 AC 08/08 PO 0913 Past History Medical History Blood Transfusion Hx: Yes Neurological: NONE EENT: hearing loss Cardiovascular: NONE Respiratory: asthma, S/P CHEST TUBE 05/2016 Gastrointestinal: necrotizing fasciitis of the perineum S/P COLOSTOMY Hepatic: NONE Renal: left pararenal abscess Musculoskeletal: OSTEOMYELITIS OF PUBIS PUBIS FX Psychiatric: anxiety, chronic pain disorder, depression, opioid dependence, POLYSUBSTANCE ABUSE NARCOTIC DEPENDENCE SUICIDAL IDEATION Endocrine: INSULIN DEPENDENT DIABETES - noncompliant Blood Disorders: anemia Cancer(s): NONE BEHAVIORAL HEALTH CASE MANAGER/Reproductive: ECTOPIC Other Medical Hx: Left axillary abscess secondary to MSSA status post I&D November 2014 Right deltoid abscess March 2016 secondary to MSSA Surgical History Pertinent Surgical History: , hysterectomy, D&C colostomy with reversal left axillary abscess November 2014 Family History Relations & Conditions If Any: FATHER (maritza krause Currently 06/16/2015- unable to get any meaningful FHx from patient, s/p drug OD.). FH: cirrhosis Psychosocial History Where Do You Live? Home Who Do You Live With? with friend Primary Language: Citizen Of [place] Smoking Status: Current Everyday Smoker ETOH Use: denies use Living Will? no Power of Vessel Slag Worker/HCP? no Functional Ability ADLs Independent: dressing, eating, toileting, bathing. Ambulation: independent IADLs Independent: shopping, housework, finances, food prep, telephone, transportation , medication admin. Exam & Diagnostic Data Vital Signs and I&O I reviewed Vital Signs Date Time Temp Pulse Resp B/P Pulse O2 O2 Flow FiO2 Ox Delivery Rate 08/08 1600 98 Room Air 08/08 1400 92 Nasal 6.0L Cannula 08/08 1033 Room Air Room Air 08/08 0800 97.7 60 20 88/46 91 Nasal 4.0L Cannula 08/08 0757 93 Nasal 7.0L Cannula 08/08 0600 98 Nasal 4.0L Cannula 08/08 0052 92 Nasal 4.0L Cannula 08/07 2300 97.6 114 20 110/60 94 Nasal 2.0L Cannula 08/070 94 Nasal 2.0L Cannula 08/07 2113 96 Nasal 2.0L Cannula I reviewed Intake & Output 08/08 1600 08/08 0800 08/08 0000 08/07 1600 08/07 0800 08/07 0000 Intake Total 560 712 604 765 330 646 Output Total 661 030 8030 760 700 700 Balance -190 -58 -496 5 -370 -54 Intake, IV 35 312 124 325 330 226 Intake, Oral 525 400 480 440 420 Number 1 1 0 1 Bowel Movements Output, 20 50 Drainage Output, Urine 791 450 5292 760 700 700 Last 24 Hours of Labs: I reviewed Laboratory Tests 08/08 0409 Chemistry Sodium (137 - 145 mmol/L) 132 L Potassium (3.5 - 5.1 mmol/L) 4.8 Chloride (98 - 107 mmol/L) 103 Carbon Dioxide (22 - 30 mmol/L) 20 L Anion Gap (5 - 16) 9 BUN (7 - 17 mg/dL) 56 H Creatinine (0.5 - 1.0 mg/dL) 1.4 H Estimated GFR (>60 ml/min) 42 L Glucose (65 - 99 mg/dL) 223 H Calcium (8.4 - 10.2 mg/dL) 8.6 Phosphorus (2.5 - 4.5 mg/dL) 6.1 H Magnesium (1.6 - 2.3 mg/dL) 2.0 Total Bilirubin (0.2 - 1.3 mg/dL) 0.3 AST (14 - 36 U/L) 67 H ALT (9 - 52 U/L) 51 Albumin (3.5 - 5.0 g/dL) 2.1 L Hematology CBC w Diff NO MAN DIFF REQ WBC (4.8 - 10.8 /CUMM) 13.0 H RBC (4.20 - 5.40 /CUMM) 3.58 L Hgb (12.0 - 16.0 G/DL) 9.4 L Hct (37 - 47 %) 28.8 L MCV (81.0 - 99.0 FL) 80.6 L MCH (27.0 - 31.0 PG) 26.3 L RDW (11.5 - 14.5 %) 18.0 H Plt Count (130 - 400 /CUMM) 271 MPV (7.4 - 10.4 FL) 8.0 Gran % (42.2 - 75.2 %) 94.3 H Lymphocytes % (20.5 - 51.1 %) 4.3 L Monocytes % (1.7 - 9.3 %) 0.5 L Eosinophils % (0 - 5 %) 0.8 Basophils % (0.0 - 2.0 %) 0.1 Absolute Granulocytes (1.4 - 6.5 /CUMM) 12.3 H Absolute Lymphocytes (1.2 - 3.4 /CUMM) 0.6 L Absolute Monocytes (0.10 - 0.60 /CUMM) 0.1 L Absolute Eosinophils (0.0 - 0.7 /CUMM) 0.1 Absolute Basophils (0.0 - 0.2 /CUMM) 0 PUBS MCHC (33.0 - 37.0 G/DL) 32.7 L Assessment/Plan Assessment/Plan Pt refused Consult Acknowledgment - Thank you for your consult request.
[2016-08-08 20:54] VITALS: BP 108/60
--- NOTE | 2016-08-09 00:01 | NUR ---
ELIAS NOTED TO BE LEAKING, PAD UNDER ELIAS WET AND TOWEL AROUND ELIAS IS WET WELL. PT SCREAMING, REFUSING TO BE TURNED AND CHANGED. ATTEMPTED TO TURN PT WITH ANOTHER NURSE, PT STATED "JUST LEAVE ME ALONE!" SCREAMING AND CRYING. GLOVE MACHINE OPERATOR MADE AWARE AT THIS TIME THAT ELIAS IS LEAKING. NEW PAD PLACED AROUND ELIAS IN BETWEEN PT'S LEG.
--- NOTE | 2016-08-09 04:15 | NUR ---
PT STATES SHE CANT BREATH, O2 SAT 94% ON 4L NC, RR WNL, NO DISTRESS NOTED, PT REQUESTS NEB TX, RESPIRAOTRY PAGED, PT ALSO STATES FOR THIS RN TO CALL MD AND TO COME SEE PT. KARINA KOHLI, STATES "I WILL NOT COME UP TO SEE THE PT, I HAVE ALREADY SPOKEN TO HER EARLIER, THIS IS NOT A REAL SICK PT".
--- NOTE | 2016-08-09 04:30 | NUR ---
PT IN DISTRESS STATING "I CANT BREATHE I NEED A TX". RT TO BEDSIDE TO GIVE TX. O2 SAT 95% ON 3L NC. MD KARINA ORELLANA PAGED TO COME ASSESS AND SPEAK WITH PT. TO ALICIA AT 0500, PT ASKING FOR ONE TIME ORDER OF IV BENADRYL. TOLD THIS RN SHE IS NOT GOING TO ORDER ANY MORE BENADRYL AND TO TELL PT THAT "WE ARE WAITING FOR THE MED FROM PHARMACY". THIS RN DID NOT TELL THE PT THAT. AND NO NEW ORDERS ARE PLACED AT THIS TIME.
[2016-08-09 05:59] LABS: ABSOLUTE BASOPHIL COUNT 0 /CUMM (0.0-0.2); ABSOLUTE EOSINOPHIL COUNT 0.1 /CUMM (0.0-0.7); ABSOLUTE GRANULOCYTE CT 13.1 /CUMM (1.4-6.5); ABSOLUTE LYMPH COUNT 0.5 /CUMM (1.2-3.4); ABSOLUTE MONOCYTE COUNT 0.1 /CUMM (0.10-0.60); BASOPHIL % 0.2 % (0.0-2.0); EOSINOPHIL % 0.9 % (0-5); GRANULOCYTE % 94.4 % (42.2-75.2); HEMATOCRIT 29.3 % (37-47); MEAN CORPUSCULAR HGB 25.7 PG (27.0-31.0); MEAN CORPUSCULAR VOLUME 80.4 FL (81.0-99.0); MEAN PLATELET VOLUME 7.8 FL (7.4-10.4); PLATELET COUNT 257 /CUMM (130-400); RBC DISTRIBUTION WIDTH 18.5 % (11.5-14.5); RED BLOOD CELL CT 3.64 /CUMM (4.20-5.40); WHITE BLOOD CELL COUNT 13.9 /CUMM (4.8-10.8)
[2016-08-09 06:00] VITALS: BP 110/60
--- NOTE | 2016-08-09 08:32 | PN- Housestaff ---
HIRAM FARFAN,DERECK 08/09/16 0831: Subjective Follow-up For: Pelvic abscess/hematoma Right upper extremity pain/cellulitis Right buttock wound Acute Kidney Injury Subjective: Patient seen and examined. She is seen lying flat in bed appearing tearful. She appears to be mildly uncomfortable. She is specifically requesting intravenous dilaudid as she is in "extreme pain". She wants 1mg of dilaudid for this. Patient continues to exhibit drug seeking behavior and is refusing oral medications and various treatments or senior billing consultant evaluations. She is refusing to participate in the interview. Review of systems is limited, she admits to generalized diffuse pain. No overnight events reported. Review of Systems Constitutional: Reports: see HPI. Objective Last 24 Hrs of Vital Signs/I&O Vital Signs Date Time Temp Pulse Resp B/P Pulse O2 O2 Flow FiO2 Ox Delivery Rate 08/09 0836 94 Nasal 3.0L Cannula 08/09 0600 97.7 106 20 110/60 95 Nasal Cannula 08/09 0453 93 Nasal 5.0L Cannula 08/09 0000 Nasal 4.0L Cannula 08/08 2054 97.6 105 20 108/60 94 Nasal 5.0L Cannula 08/08 1916 96 Nasal 4.0L Cannula 08/08 1600 98 Room Air 08/08 1600 97.3 72 24 100/80 95 Nasal 5.0L Cannula 08/08 1400 92 Nasal 6.0L Cannula Intake & Output 08/09 1600 08/09 0800 08/09 0000 Intake Total 640 250 Output Total 755 Balance -115 250 Intake, IV 300 150 Intake, Oral 340 100 Number 0 Bowel Movements Output, 5 Drainage Output, Urine 750 Physical Exam General Appearance: Alert, Mild Distress Other Physical Findings: General - well developed, well nourished obese middle aged caucasisian woman in mild distress HEENT - NCAT, EOMI, PERRL, anicteric sclera CVS - S1, S2 w/o m/g/r Resp - CTA bilaterally GI - Soft, obese, tense with mild guarding but no rigidity, bowel sounds intact - Orta catheter in place, pelvic drain in place with small amount of purulent material present Neuro - Awake and Alert, agitated, CN II - XII grossly intact Ext - normal pulses, no cyanosis/clubbing/edema Current Medications: Current Medications Sig/Shahla Start time Last Medication Dose Route Stop Time Status Admin Acetaminophen 1,000 MG .STK-MED ONE 08/09 0421 DC IV 08/09 0422 Acetaminophen 1,000 MG ONCE ONE 08/08 1730 DC 08/08 IV 08/08 1731 1742 Acetaminophen 1,000 MG Q6P PRN 08/07 1630 AC 08/09 N/A 1 UNIT IV 1155 Acetaminophen 650 MG Q4 HRS NEEDED PRN 07/31 0800 AC 08/08 PO 0156 Albuterol Sulfate 3 ML BID 08/05 2200 AC 08/09 INH 0831 Albuterol Sulfate 2 PUF Q4P PRN 07/30 2200 AC 08/07 INH 0914 Collagenase 1 DEMETRA DAILY 08/04 1000 AC 08/06 TOP 1229 Diclofenac Sodium 1 DEMETRA TID PRN 07/30 1145 AC 08/05 TOP 2142 Diphenhydramine HCl 50 MG .STK-MED ONE 08/09 0206 DC IM 08/09 0207 Diphenhydramine HCl 50 MG .STK-MED ONE 08/08 2057 DC IM 08/08 2058 Diphenhydramine HCl 50 MG .STK-MED ONE 08/08 1731 DC IM 08/08 1732 Diphenhydramine HCl 50 MG Q6P PRN 08/07 1630 AC 08/09 IV 0911 Docusate Sodium 100 MG DAILY 07/31 1000 AC 08/08 PO 0913 Enoxaparin Sodium 40 MG DAILY 08/08 1000 AC SC Escitalopram Oxalate 10 MG 0800 08/09 0800 AC PO Escitalopram Oxalate 5 MG 0800 08/06 0800 DC 08/08 PO 0913 Haloperidol 2 MG Q8P PRN 08/07 1830 AC 08/08 PO 1500 Hydromorphone HCl 0.2 MG Q6P PRN 08/09 1230 AC IV Hydromorphone HCl 0.6 MG Q6P PRN 08/09 0830 DC 08/09 IV 0903 Hydromorphone HCl 0.2 MG ONCE ONE 08/08 2130 DC 08/08 IV 08/08 213 2127 Hydromorphone HCl 0.2 MG ONCE ONE 08/08 1500 DC 08/08 IV PUSH 08/08 1501 1513 Insulin Aspart 0 TIDAC/HS 08/01 0800 AC 08/09 SC 1205 Lidocaine 1 PAT DAILY 07/28 1800 AC 07/28 EXT 2004 Miconazole Nitrate 1 DEMETRA AT BEDTIME 07/29 0130 AC 08/06 VAG 2210 Oxacillin Sodium 2,000 MG Q4 08/03 1400 AC 08/09 Sodium Chloride 100 ML IV 1025 Pregabalin 150 MG BID 07/28 2200 AC 08/08 PO 0913 Senna/Docusate Sodium 2 TAB DAILY 07/31 1000 AC 08/08 PO 0912 Simethicone 80 MG Q6P PRN 08/03 0830 AC 08/03 PO 1001 Sodium Bicarbonate 1,300 MG TID 08/05 1059 AC 08/08 PO 0913 Last 24 Hrs of Lab/Haris Results Last 24 Hrs of Labs/Mics: Laboratory Tests 08/09/16 0530: Anion Gap 11, Estimated GFR 55 L, BUN/Creatinine Ratio 43.6 H, Phosphorus 5.4 H, Magnesium 1.8, CBC w Diff MAN DIFF ORDERED, RBC 3.64 L, MCV 80.4 L, MCH 25.7 L, RDW 18.5 H, MPV 7.8, Gran % 94.4 H, Lymphocytes % 3.9 L, Monocytes % 0.6 L, Eosinophils % 0.9, Basophils % 0.2, Absolute Granulocytes 13.1 H, Segmented Neutrophils 85 H, Absolute Lymphocytes 0.5 L, Lymphocytes 10 L, Monocytes 3, Absolute Monocytes 0.1 L, Absolute Eosinophils 0.1, Absolute Basophils 0, Platelet Estimate ADEQUATE, Polychromasia 1+, Hypochromic- Microcytic 1+, Poikilocytosis 2+, Ovalocytes 1+, Stomatocytes 1+, PUBS MCHC 32.0 L, Fld Total RBCs Counted 100 Assessment/Plan Assessment: Patient was transferred from the intensive care unit back to the general medicine floor for further evaluation and care of her multiple medical problems. Currently she still has one pelvic drain in place draining small amounts of purulent material. She remains afebrile but with persistent leukocytosis while on intravenous antibiotics. General surgery consult was placed for evaluation of her unstagable buttock wound, however patient is not cooperative with examination. She is still requesting intravenous narcotic medications and refuses to be manipulated in bed or to be mobilized from the bed to chair. Orta catheter remains in place as patient refused to ambulate to the bathroom or use a bedpan and has consistently soiled herself. Her abdomen is swollen and tense today and will require a repeat CT scan with contrast once her renal function remains stable. Patient is to not be given aggressive amounts of narcotics. Pelvic abscess / Pelvic Hematoma CT abdomen/pelvis upon initial evaluation demonstrated a right pelvic collection with mass effect upon the bladder most likely healthcare sales representative of a hematoma. For further evaluation of persistent bandemia and no obvious site of infection a CT abdomen/pelvis with intravenous contrast was obtained that demonstrated a complex multiloculated fluid collection in the right pelvis in addition to the right hematoma. Interventional radiology placed several drains and reportedly removed 300 mL of purulent material from her pelvis. -Gen. medicine -Proline in place -Warm compresses -Oxacillin 2 g IV every 4 hours -Dilaudid 1 g IV every 6 hours as needed for severe pain -Physical therapy/occupational therapy evaluation -Infectious disease consult -Follow up cultures & sensitivities Right upper extremity pain/right elbow cellulitis Radiographs of the right upper extremity did not demonstrate any acute process. Orthopedic consult placed recommended advanced imaging of the right upper extremity for further characterization of any occult pathology. Patient is currently declining any MRI imaging unless she is "knocked out". -Obtain MRI right upper extremity as outpatient -Orthopedic consult following Septic Shock / Elevated Lactic Acid: Resolved Patient met criteria for severe sepsis upon admission. She subsequently developed septic shock for with she was transferred to ICU. During the ICU stay she was given aggressive intravenous fluid resuscitation and vasopressors. Patient subsequently developed end organ damage with acute kidney injury secondary to hypotension. -Monitor vital signs for hemodynamic instability -Triple-lumen catheter removed Acute kidney injury /metabolic acidosis / hyponatremia Patient received intravenous contrast for CT chest and suffered from hypotension /sepsis all of which most likely predispose patient to developing. Renal ultrasound demonstrated normal appearance of both kidneys without any hydronephrosis, mass, or calculus. -Avoid nephrotoxic medications such as NSAIDs -Fluid restriction: 1200 mL from all sources -Hold IVF for fluid overload -Strict in's and outs -Orta catheter -NaHCO3 1300mg PO TID -Nephrology consult -Daily BEP Positive urine culture for Klebsiella Patient denies any urinary frequency/urgency/burning pain. She has been incontinent secondary to refusing to ambulate to the restroom. She denies any saddle anesthia or fecal incontinence. -Follow off antibiotics for UTI Anxiety/Depression/Agitation -Propranolol decreased to 10 mg by mouth twice a day -Lexapro 10mg PO Daily -Haloperidol 2mg PO Q8H PRN - agitation -Seroquel 100 mg by mouth daily at bedtime -Psych consult Insulin Dependent Diabetes Mellitus -Accuchecks TIDAC/HS -Hold oral hypoglycemics -Novolog Sliding Scale insulin -Levemir 60 units SC twice a day ON HOLD Unstageable right buttock wound General surgery consult placed for evaluation of patients unstagable right buttock wound. Patient is refusing to be examined. -Local wound care as per wound care assessment -General Surgery Consult Peripheral Neuropathy- Lyrica 150mg PO BID Pain Plan-acetaminophen/Dilaudid/lidocaine patch Bowel regimen-Senokot/Colace Diet-diabetic diet DVT PPx- Lovenox Code Status- FULL CODE Problem List: 1. Hematoma Pain Ratin Pain Location: Generalized Right upper extremity Back Pelvis Pain Goal: Pain 7 or less Pain Plan: See assessment Tomorrow's Labs & Rationales: CBC - acute infection BEP - renal function HAN FARFAN,YUNG 08/09/16 1350: Attending MD Review Statement Attending Statement Attending MD Statement: examined this patient, discuss w/resident/PA/PROJECT MANAGEMENT INTERN, agreed w/resident/PA/PROJECT MANAGEMENT INTERN, discussed with family, reviewed EMR data (avail), discussed with nursing, discussed with case mgmt, reviewed images, amended to note Attending Assessment/Plan: Patient resting in bed, complains of abdominal pain and is tender to touch. Patient will need CAT scan of abdomen and pelvis to further evaluate her pain given her complex hospital course. Appreciate ID input. Continue oxacillin for now.
--- NOTE | 2016-08-09 12:30 | PN- Infect Dx ---
Subjective Subjective: Afebrile. She complains of abdominal pain. Loose brown stools reported. Objective Last 24 Hrs of Vital Signs/I&O Vital Signs Date Time Temp Pulse Resp B/P Pulse O2 O2 Flow FiO2 Ox Delivery Rate 08/09 0836 94 Nasal 3.0L Cannula 08/09 0600 97.7 106 20 110/60 95 Nasal Cannula 08/09 0453 93 Nasal 5.0L Cannula 08/09 0000 Nasal 4.0L Cannula 08/08 2054 97.6 105 20 108/60 94 Nasal 5.0L Cannula 08/08 1916 96 Nasal 4.0L Cannula 08/08 1600 98 Room Air 08/08 1600 97.3 72 24 100/80 95 Nasal 5.0L Cannula 08/08 1400 92 Nasal 6.0L Cannula Intake & Output 08/09 1600 08/09 0800 08/09 0000 Intake Total 640 250 Output Total 755 Balance -115 250 Intake, IV 300 150 Intake, Oral 340 100 Number 0 Bowel Movements Output, 5 Drainage Output, Urine 750 Physical Exam Other Physical Findings: She appears in no acute distress Neck Pro-Line in the left upper chest with no inflammation at the site Lungs are clear Heart regular rhythm with no murmur Abdomen obese, soft, tender to palpation diffusely, with no rebound; catheter remains in place with 20 mL output reported yesterday Back sacral decubitus necrotic with no surrounding inflammation Extremities decreased inflammation over the right elbow, with decreased tenderness and good range of motion; right hip difficult to evaluate secondary to resistance to exam Orta catheter remains in place Results Last 24 Hours of Lab Results: Laboratory Tests 08/09 0530 Chemistry Sodium (137 - 145 mmol/L) 135 L Potassium (3.5 - 5.1 mmol/L) 4.3 Chloride (98 - 107 mmol/L) 103 Carbon Dioxide (22 - 30 mmol/L) 21 L Anion Gap (5 - 16) 11 BUN (7 - 17 mg/dL) 48 H Creatinine (0.5 - 1.0 mg/dL) 1.1 H Estimated GFR (>60 ml/min) 55 L BUN/Creatinine Ratio (7 - 25 %) 43.6 H Phosphorus (2.5 - 4.5 mg/dL) 5.4 H Magnesium (1.6 - 2.3 mg/dL) 1.8 Hematology CBC w Diff MAN DIFF ORDERED WBC (4.8 - 10.8 /CUMM) 13.9 H RBC (4.20 - 5.40 /CUMM) 3.64 L Hgb (12.0 - 16.0 G/DL) 9.4 L Hct (37 - 47 %) 29.3 L MCV (81.0 - 99.0 FL) 80.4 L MCH (27.0 - 31.0 PG) 25.7 L RDW (11.5 - 14.5 %) 18.5 H Plt Count (130 - 400 /CUMM) 257 MPV (7.4 - 10.4 FL) 7.8 Gran % (42.2 - 75.2 %) 94.4 H Lymphocytes % (20.5 - 51.1 %) 3.9 L Monocytes % (1.7 - 9.3 %) 0.6 L Eosinophils % (0 - 5 %) 0.9 Basophils % (0.0 - 2.0 %) 0.2 Absolute Granulocytes (1.4 - 6.5 /CUMM) 13.1 H Segmented Neutrophils (42.2 - 75.2 %) 85 H Absolute Lymphocytes (1.2 - 3.4 /CUMM) 0.5 L Lymphocytes (20.5 - 51.1 %) 10 L Monocytes (1.7 - 9.3 %) 3 Absolute Monocytes (0.10 - 0.60 /CUMM) 0.1 L Absolute Eosinophils (0.0 - 0.7 /CUMM) 0.1 Absolute Basophils (0.0 - 0.2 /CUMM) 0 Platelet Estimate (ADEQUATE) ADEQUATE Polychromasia 1+ Hypochromic-Microcytic 1+ Poikilocytosis 2+ Ovalocytes 1+ Stomatocytes 1+ PUBS MCHC (33.0 - 37.0 G/DL) 32.0 L Other Body Source Fld Total RBCs Counted (%) 100 Last 24 Hours of Haris Results: No recent cultures Recent Imaging Studies: Chest x-ray August 08, personally reviewed, reveals low lung volumes with no change in the hazy bilateral alveolar opacities and mild central hilar vascular prominence; right pleural effusion appears slightly decreased Abdominal x-ray August 08 reveals probable air-filled distended stomach and mildly dilated air-filled small bowel loops Assessment/Plan Impression: Overall improved with blood pressure stable, renal function now normal and temperatures remaining normal on Oxacillin for a pelvic abscess secondary to MSSA, status post drainage 8 days ago. Her right upper extremity inflammation has also improved. Her abdominal discomfort is of unclear etiology, but, with diarrhea, C. difficile should be ruled out. The drainage from her catheter has decreased, suggesting either resolution of the abscess or dislodgment of the catheter and a repeat CT scan will be necessary to evaluate this. Her white blood cell count remains elevated, possibly secondary to a residual infection within the pelvis versus another infection elsewhere. Her sacral decubitus is necrotic but does not appear to be the source of an infection. She has been evaluated by Surgery but she apparently did not allow an examination. Suggestion: 1. Stool for C. difficile 2. Repeat CT of the abdomen and pelvis (would avoid contrast given recent renal insufficiency) 3. Ensure that her drainage catheter is being flushed at least twice daily 4. Would remove Orta catheter, followed by bladder scan with initiation of straight cath protocol if urinary retention 5. Further management of her sacral decubitus per Surgery 6. Continue Oxacillin
[2016-08-09 14:44] VITALS: BP 128/72
--- NOTE | 2016-08-09 16:44 | NUR ---
PATIENT REFUSED BREAKFAST AND LUNCH
--- NOTE | 2016-08-09 17:23 | CT SCAN REPORT ---
EXAMINATION: CT ABDOMEN AND PELVIS WITHOUT CONTRAST CLINICAL INFORMATION: Pelvic abscess/hematoma. Evaluate for abdominal fluid/obstruction. Pelvic drain in place. COMPARISON: Multiple priors, most recent CT abdomen/pelvis dated 08/01/2016. TECHNIQUE: Multidetector volumetric imaging was performed from the superior aspect of the liver through the pubic symphysis. Sagittal and coronal reformatted images were obtained on the technologist's workstation. DLP: 1609.15 mGy-cm FINDINGS: LUNG BASES: There are diffuse patchy airspace opacities within the bilateral lung bases, new since the prior examination. This could represent fluid overload or early infiltrates. LIVER, GALLBLADDER, AND BILIARY TREE: There is new perihepatic ascites. The liver is normal in size, shape, and attenuation. No focal hepatic lesion or biliary ductal dilatation is present. The gallbladder is unremarkable with no evidence of radiopaque gallstones, gallbladder wall thickening, or obvious pericholecystic inflammatory changes. PANCREAS: Largely fatty replaced. SPLEEN: Unremarkable. ADRENAL GLANDS: Unremarkable. KIDNEYS AND URETERS: The kidneys are normal in size, shape, and attenuation. No hydronephrosis, hydroureter, or calculi seen. No perinephric stranding. BLADDER: Nondistended with a Orta catheter in place. GASTROINTESTINAL TRACT: There is new perihepatic abdominal, and pelvic ascites which was not present on the prior examination. There are 2 small foci of intra-abdominal free air noted dependently within the upper abdomen, which could be related to the prior drain placement. The stomach is distended with an air-fluid level. There is prominence of the upper abdominal small-bowel loops. Stool is seen within the colon. These findings could represent ileus versus an early partial small-bowel obstruction. The appendix is not well visualized. ABDOMINAL WALL: There is a small fat-containing periumbilical hernia. There is subcutaneous edema within the flanks, left greater than right. LYMPH NODES: No visualized lymphadenopathy, although evaluation is limited without IV contrast. VASCULAR: There are scattered atherosclerotic calcifications within the abdominal aorta. The IVC is unremarkable. PELVIC VISCERA: The uterus and adnexa are unremarkable although incompletely evaluated on CT examination. A right lower pelvis subcutaneous drain is redemonstrated associated with a fluid collection which measures approximately 8 x 8.2 x 4.2 cm (AP x ML x CC) although the extent of the collection is difficult to evaluate on this noncontrast examination. The Hounsfield units within the collection measure approximately 15, consistent with simple fluid. There is a small focus of associated extraluminal air. This fluid collection appears less prominent than on the prior examination, however, there is new intra-abdominal ascites with small foci of upper abdominal free air which could be associated with the fluid collection. The abdominal ascites measures in the range of 3-17 Hounsfield units, consistent with simple fluid. OSSEOUS STRUCTURES: Superior and inferior left pubic rami mildly displaced fractures are redemonstrated. Severe degenerative endplate changes are redemonstrated at L4-L5, which could be the sequela of prior discitis-osteomyelitis. No associated soft tissue collection. IMPRESSION: 1. Right pelvic fluid collection with a percutaneous drain associated anteriorly. Small associated focus of extraluminal air. New moderate intra-abdominal ascites with new small foci of intra-abdominal free air, which could be related to the fluid collection. The fluid collection and ascites appear to be simple fluid as measured by Hounsfield units. 2. Unchanged right pubic rami fractures. 3. Distended stomach and prominent proximal small-bowel loops. Stool within the colon. These findings could represent focal ileus versus an early partial small-bowel obstruction. 4. New diffuse patchy airspace opacities within the bilateral lung bases which could represent fluid overload or early infiltrates. 5. Severe degenerative endplate changes at L4-L5, which could be the sequela of prior discitis-osteomyelitis.
--- NOTE | 2016-08-09 19:13 | PN- General Surgery ---
Surgical Brief Attending Note Brief Attending Note: Patient still refusing to let me look at her backside, she had a CT scan today which when you compare to the previous a little over a week ago, the sacral area is stable there is no gas in that there is minimal stranding at all so although she is at risk for a deeper process she has not developed one there. A second issue though is the new appearance of intraperitoneal fluid some around the liver and some in the pelvis and in the left lower quadrant she stable but it's not clear whether this is related to the recent drain, if she worsens this may need to be aspirated as well.
--- NOTE | 2016-08-09 22:00 | NUR ---
THIS RN WITH [facility] ATTEMPTED TO TURN AND REPOSITION THE PT BUT PT REFUSED SAYING THAT SHE HASN'T DONE ANYTHING AND DOESN'T NEED TO BE CHANGED. SHE FURTHER SAID THAT SHE WOULD LIKE TO BE CHANGED LATER. WHEN ENCOURAGED AGAIN, PT GOT REALLY UPSET AND ALMOST STARTED CRYING. NIGHT RN MULUGETA WILL BE UPDATED.
[2016-08-09 22:40] VITALS: BP 90/56
[2016-08-10 06:18] VITALS: BP 92/60
--- NOTE | 2016-08-10 06:35 | NUR ---
NURSING NOTE: PT DROWSY, HYPOTENSIVE 92/60, TACHYCARDIC HR 108, SATING 92% ON 4L NC. PER PT SHARP PAIN TO ABDOMEN, VERY PAINFUL /10. MD TODD AWARE. RN WILL CONTINUE TO MONITOR.
[2016-08-10 07:45] LABS: ABSOLUTE BASOPHIL COUNT 0.1 /CUMM (0.0-0.2); ABSOLUTE EOSINOPHIL COUNT 0.1 /CUMM (0.0-0.7); ABSOLUTE GRANULOCYTE CT 19.8 /CUMM (1.4-6.5); ABSOLUTE LYMPH COUNT 0.8 /CUMM (1.2-3.4); ABSOLUTE MONOCYTE COUNT 0.2 /CUMM (0.10-0.60); BASOPHIL % 0.3 % (0.0-2.0); EOSINOPHIL % 0.6 % (0-5); GRANULOCYTE % 94.5 % (42.2-75.2); HEMATOCRIT 33.1 % (37-47); MEAN CORPUSCULAR HGB 26.3 PG (27.0-31.0); MEAN CORPUSCULAR HGB CONC 32.3 G/DL (33.0-37.0); MEAN CORPUSCULAR VOLUME 81.5 FL (81.0-99.0); MEAN PLATELET VOLUME 7.9 FL (7.4-10.4); PLATELET COUNT 279 /CUMM (130-400); RBC DISTRIBUTION WIDTH 18.6 % (11.5-14.5); RED BLOOD CELL CT 4.07 /CUMM (4.20-5.40)
--- NOTE | 2016-08-10 07:57 | Event Note ---
Event Note Event Note: Rapid response called at 7:50am. Pt BP in 60s systolic; HR 116; satting 92% on 4L. CBC/BEP/Lactic/BCX/trops/cortisol ordered. 1L bolus started--> not appropriately responding. Will transfer to ICU.
--- NOTE | 2016-08-10 08:00 | NUR ---
RECEIVED REPORT THAT PT WAS SLEEPING AND SLIGHTLY LETHARGIC OVERNIGHT. AT BASELINE, PT RARELY SLEEPS FOR ANY PROLONGED PERIODS OF TIME AND USES CALL LIGHT FREQUENTLY. PT ASSESSED, WAKES TO VERBAL STIMULI AND DOES BECOME LETHARGIC QUICKLY THERE AFTER. VITALS OBTAINED. O2 94% ON 4L. HEART RATE 120. RR 22. BLOOD PRESSURE HEARD FAINTLY AT 60. DOPPLER USED AND SYSTOLIC PRESSURE AGAIN HEARD AT 60. RAPID RESPONSE CALLED FOR HYPOTENSION. PT CONTINUES TO COMPLAIN OF SHARP STABBING LUQ ABDOMINAL PAIN. LUQ IS ASYMETRICALLY SWOLLEN AND FIRM TO TOUCH. MD AT BEDSIDE AND FLUID BOLUS X 2 ORDERED AND ADMINISTERED. IV TYLENOL ADMINISTERED FOR PAIN 02/24. BLOOD CX X 2 DRAWN PERIPHERALLY AND SENT. LACTIC/TROPONIN/EKG DONE. XRAY AT BEDSIDE TO DO FLAT PLATE ABDOMINAL XRAY. DR. BENOIT IN TO ASSESS PT AND STATES PT SHOULD BE TRANSFERRED TO ICU. BLOOD PRESSURE REASSESSED DURING BOLUS AND UP TO 80/50 MANUALLY. TRANSFERRED TO ROOM 102 AND REPORT GIVEN TO JOSE AT BEDSIDE. MEDS SENT WITH PATIENT.
[2016-08-10 08:30] VITALS: BP 60/0
[2016-08-10 09:00] VITALS: BP 66/40
[2016-08-10 09:09] LABS: WHITE BLOOD CELL COUNT 20.9 /CUMM (4.8-10.8)
[2016-08-10 09:30] VITALS: BP 80/50
--- NOTE | 2016-08-10 09:39 | Event Note ---
Event Note Event Note: SURGERY CONSULT PLACED WITH Dr. Shaw's office for Pneumatosis intestinalis. Spoke with danie the answering service. Patient was evaluated by Dr. Cruz, they recommend and IR guided drainage of peritoneal fluid in am.
--- NOTE | 2016-08-10 09:39 | RADIOLOGY REPORT ---
EXAMINATION: XR PORTABLE ABDOMEN CLINICAL INFORMATION: Ascites, fluid collection. Insulin-dependent diabetic. COMPARISON: CT abdomen and pelvis 08/09/2016. TECHNIQUE: Portable AP view is performed of the abdomen and left lower quadrant. FINDINGS: There is gaseous dilatation of the stomach. Moderate gaseous distention mid small bowel is present. Review of the recent CT may suggest pneumatosis in the wall of the proximal stomach. Pneumatosis is not visualized on the plain films, although the gastric fundus is beyond the [id number] on the plain films. Results are called and discussed with hospitalist Dr. Harris at 0935 hrs. IMPRESSION: 1. Gaseous dilatation of the stomach. Mild gaseous distention mid small bowel. 2. Suspicious for pneumatosis proximal stomach on CT 08/09/2016, not visualized on today's plain films. Gastric fundus beyond the [id number] on the plain films.
--- NOTE | 2016-08-10 11:17 | PN- Housestaff ---
DERECK GANDHI MD 08/10/16 1112: Subjective Follow-up For: Pelvic abscess/hematoma Right upper extremity pain/cellulitis Right buttock wound Acute Kidney Injury Subjective: Rapid response was called this morning for findings of hypotension per nursing staff. Blood pressure was reportedly 60 over Doppler, HR 116, 92% on 4.0 L. The covering night team ordered a workup including a complete blood count, serum chemistry, lactic acid, blood culture, troponin, a.m. cortisol level. Patient was given 1 L of intravenous normal saline for fluid resuscitation. Review of Systems Constitutional: Reports: see HPI. Objective Last 24 Hrs of Vital Signs/I&O Vital Signs Date Time Temp Pulse Resp B/P Pulse O2 O2 Flow FiO2 Ox Delivery Rate 08/10 1036 94 Nasal 4.0L Cannula 08/10 1000 85/39 08/10 0930 80/50 08/10 0900 66/40 08/10 0830 120 22 60/0 94 Nasal 4.0L Cannula 08/10 0800 95 Nasal 4.0L Cannula 08/10 0618 97.7 108 20 92/60 92 Nasal 4.0L Cannula 08/10 0000 97 Nasal 5.0L Cannula 08/09 2240 98.1 106 20 90/56 97 Nasal 5.0L Cannula 08/09 1900 78 Room Air 08/09 1600 91 Nasal 5.0L Cannula 08/09 1444 97.6 110 20 128/72 99 Intake & Output 08/10 1600 08/10 0800 08/10 0000 Intake Total 550 250 Output Total 0 401 Balance 550 -151 Intake, IV 300 150 Intake, Oral 250 100 Output, 0 Drainage Output, Stool 1 Output, Urine 400 Physical Exam General Appearance: Mild Distress Other Physical Findings: General - well developed, well nourished obese middle aged caucasisian woman in mild distress HEENT - NCAT, EOMI, PERRL, anicteric sclera CVS - S1, S2 w/o m/g/r Resp - CTA bilaterally GI - Soft, obese, tense with mild guarding but no rigidity, bowel sounds intact - Orta catheter in place, pelvic drain in place with small amount of purulent material present Neuro - Awake and Alert, agitated, CN II - XII grossly intact Ext - normal pulses, no cyanosis/clubbing/edema Current Medications: Current Medications Sig/Shahla Start time Last Medication Dose Route Stop Time Status Admin Acetaminophen 1,000 MG .STK-MED ONE 08/09 2217 DC IV 08/09 2218 Acetaminophen 1,000 MG .STK-MED ONE 08/09 1807 DC IV 08/09 1808 Acetaminophen 1,000 MG Q6P PRN 08/07 1630 AC 08/10 N/A 1 UNIT IV 0830 Acetaminophen 650 MG Q4 HRS NEEDED PRN 07/31 0800 AC 08/08 PO 0156 Albuterol Sulfate 3 ML BID 08/05 2200 AC 08/10 INH 1157 Albuterol Sulfate 2 PUF Q4P PRN 07/30 2200 AC 08/07 INH 0914 Collagenase 1 DEMETRA DAILY 08/04 1000 AC 08/06 TOP 1229 Diclofenac Sodium 1 DEMETRA TID PRN 07/30 1145 AC 08/05 TOP 2142 Diphenhydramine HCl 50 MG .STK-MED ONE 08/09 2125 DC IM 08/09 2126 Diphenhydramine HCl 50 MG Q6P PRN 08/07 1630 AC 08/09 IV 2132 Docusate Sodium 100 MG DAILY 07/31 1000 AC 08/09 PO 1821 Enoxaparin Sodium 40 MG DAILY 08/08 1000 AC SC Escitalopram Oxalate 10 MG 0800 08/09 0800 AC PO Haloperidol 2 MG Q8P PRN 08/07 1830 AC 08/09 PO 1821 Hydromorphone HCl 0.2 MG ONCE ONE 08/10 1030 DC 08/10 IV 08/10 1031 1153 Hydromorphone HCl 0.2 MG ONCE ONE 08/09 1645 DC 08/09 IV 08/09 1646 1647 Hydromorphone HCl 0.4 MG ONCE ONE 08/09 1545 DC 08/09 IV 08/09 1546 1543 Hydromorphone HCl 0.2 MG Q6P PRN 08/09 1230 DC 08/09 IV 1520 Insulin Aspart 0 TIDAC/HS 08/01 0800 AC 08/10 SC 0830 Lidocaine 1 PAT DAILY 07/28 1800 AC 07/28 EXT 2004 Miconazole Nitrate 1 DEMETRA AT BEDTIME 07/29 0130 AC 08/06 VAG 2210 Non-Formulary 0 SEE ADMIN CRITERIA 08/10 1245 CAN Medication ANY Norepinephrine 4 MG Q24H 08/10 1345 AC 08/10 Dextrose/Water 250 ML IV 1000 Norepinephrine 4 MG Q24H 08/10 0845 DC Dextrose/Water 250 ML IV Oxacillin Sodium 2,000 MG Q4 08/03 1400 DC 08/10 Sodium Chloride 100 ML IV 0956 Piperacillin Sod/ 4.5 GM Q6H 08/10 1400 AC Tazobactam Sod IV Sodium Chloride 50 ML Pregabalin 150 MG BID 07/28 2200 AC 08/08 PO 0913 Propofol 1,000 MG Q24H 08/10 1300 CAN N/A 100 ML IV Senna/Docusate Sodium 2 TAB DAILY 07/31 1000 AC 08/09 PO 1821 Simethicone 80 MG .STK-MED ONE 08/09 1811 DC PO 08/09 1812 Simethicone 80 MG Q6P PRN 08/03 0830 AC 08/09 PO 1821 Sodium Bicarbonate 1,300 MG TID 08/05 1059 AC 08/08 PO 0913 Sodium Chloride 500 ML BOLUS ONE 08/10 0800 DC 08/10 IV 08/10 0859 0900 Sodium Chloride 500 ML BOLUS ONE 08/10 0800 DC 08/10 IV 08/10 0859 0830 Last 24 Hrs of Lab/Haris Results Last 24 Hrs of Labs/Mics: Laboratory Tests 08/10/16 0810: Lactic Acid 3.1 H, Troponin I < 0.01 08/10/16 0556: Anion Gap 10, Estimated GFR 33 L, BUN/Creatinine Ratio 30.0 H, Cortisol AM Sample 42.4 H, CBC w Diff MAN DIFF ORDERED, RBC 4.07 L, MCV 81.5, MCH 26.3 L, RDW 18.6 H, MPV 7.9, Gran % 94.5 H, Lymphocytes % 3.8 L, Monocytes % 0.8 L, Eosinophils % 0.6, Basophils % 0.3, Absolute Granulocytes 19.8 H, Segmented Neutrophils 63, Band Neutrophils 25 H, Absolute Lymphocytes 0.8 L, Lymphocytes 4 L, Monocytes 4, Absolute Monocytes 0.2, Eosinophils 4, Absolute Eosinophils 0.1, Absolute Basophils 0.1, Polychromasia 1+, Anisocytosis 2+, PUBS MCHC 32.3 L Microbiology 08/10 0815 BLOOD: Blood Culture - RECD 08/10 809 BLOOD: Blood Culture - RECD Assessment/Plan Assessment: For patient's persistent hypotension despite intravenous fluid resuscitation patient was transferred to the intensive care unit for closer monitoring and observation. Lab testing ordered by covering night team are still pending. Levophed was ordered. 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 For further evaluation of persistent bandemia and no obvious site of infection a CT abdomen/pelvis with intravenous contrast was obtained that demonstrated a complex multiloculated fluid collection in the right pelvis in addition to the right hematoma. Interventional radiology placed several drains and reportedly removed 300 mL of purulent material from her pelvis. -Transferred to intensive care unit -Proline in place -Warm compresses -Oxacillin 2 g IV every 4 hours -Avoid narcotics if possible -Physical therapy/occupational therapy evaluation -Infectious disease consult -Follow up cultures & sensitivities Right upper extremity pain/right elbow cellulitis Radiographs of the right upper extremity did not demonstrate any acute process. Orthopedic consult placed recommended advanced imaging of the right upper extremity for further characterization of any occult pathology. Patient is currently declining any MRI imaging unless she is "knocked out". -Obtain MRI right upper extremity as outpatient -Orthopedic consult following Septic Shock / Elevated Lactic Acid: Resolved Patient met criteria for severe sepsis upon admission. She subsequently developed septic shock for with she was transferred to ICU. During the ICU stay she was given aggressive intravenous fluid resuscitation and vasopressors. Patient subsequently developed end organ damage with acute kidney injury secondary to hypotension. -Monitor vital signs for hemodynamic instability -Triple-lumen catheter removed Acute kidney injury /metabolic acidosis / hyponatremia Patient received intravenous contrast for CT chest and suffered from hypotension /sepsis all of which most likely predispose patient to developing. Renal ultrasound demonstrated normal appearance of both kidneys without any hydronephrosis, mass, or calculus. -Avoid nephrotoxic medications such as NSAIDs -Fluid restriction: 1200 mL from all sources -Hold IVF for fluid overload -Strict in's and outs -Orta catheter -NaHCO3 1300mg PO TID -Nephrology consult -Daily BEP Positive urine culture for Klebsiella Patient denies any urinary frequency/urgency/burning pain. She has been incontinent secondary to refusing to ambulate to the restroom. She denies any saddle anesthia or fecal incontinence. -Follow off antibiotics for UTI Anxiety/Depression/Agitation -Propranolol decreased to 10 mg by mouth twice a day -Lexapro 10mg PO Daily -Haloperidol 2mg PO Q8H PRN - agitation -Seroquel 100 mg by mouth daily at bedtime -Psych consult Insulin Dependent Diabetes Mellitus -Accuchecks TIDAC/HS -Hold oral hypoglycemics -Novolog Sliding Scale insulin -Levemir 60 units SC twice a day ON HOLD Unstageable right buttock wound General surgery consult placed for evaluation of patients unstagable right buttock wound. Patient is refusing to be examined. -Local wound care as per wound care assessment -General Surgery Consult Peripheral Neuropathy- Lyrica 150mg PO BID Pain Plan-acetaminophen/Dilaudid/lidocaine patch Bowel regimen-Senokot/Colace Diet-diabetic diet DVT PPx- Lovenox Code Status- FULL CODE Problem List: 1. Hematoma Pain Ratin Pain Location: None Pain Goal: Pain 7 or less Pain Plan: See assessment Tomorrow's Labs & Rationales: Per ICU team HAN FARFAN,[facility] 08/10/16 1120: Attending MD Review Statement Attending Statement Attending MD Statement: examined this patient, discuss w/resident/PA/GOLF C[employer] ASSEMBLER, agreed w/resident/PA/GOL[employer] C[employer] ASSEMBLER, discussed with family, reviewed EMR data (avail), discussed with nursing, discussed with case mgmt, reviewed images, amended to note Attending Assessment/Plan: A rapid response was called this morning because the patient dropped her blood pressure 60 systolic. One unit of bolus fluid was started stat. Findings of the CAT scan abdomen and pelvis last night noted. Dr Trammell aware of the findings. Patient refused to have NG tube last night. Stat labs drawn during the rapid response came back with a white count of 20.9, 25 bands, lactic acid of 3.1. Creat 1.7. A stat abdominal film done during the rapid response shows pneumatosis in the wall of the proximal stomach. This has been communicated with Lan Trammell MD. Patient has been transferred to ICU. Recommendations: 1. Please do stat CT abdomen and pelvis, it will be done without contrast as patient's kidney function has worsened. 2. Place NG tube stat 3. Please follow the blood cultures and make sure to inform about the event, as he is actively involved in patient's care. 4. Continue Levophed, IV fluids.
--- NOTE | 2016-08-10 12:54 | CT SCAN REPORT ---
EXAMINATION: CT ABDOMEN AND PELVIS WITHOUT CONTRAST CLINICAL INFORMATION: Possible air in proximal wall of stomach seen on xray: abdominal pain and tenderness. COMPARISON: 08/10/2016 plain films and the 08/09/2016 as well as 08/01/2016 CT scans. TECHNIQUE: Multidetector volumetric imaging was performed from the superior aspect of the liver through the pubic symphysis without contrast per request. Sagittal and coronal reformatted images were obtained on the technologist workstation. DLP: 1668 mGy-cm. FINDINGS: LUNG BASES: Patchy bilateral airspace disease with basilar consolidation and air bronchograms noted more so on the right. FLUID: Moderate amount of abdominal ascites is present. Percutaneous catheter seen within the right pelvic sidewall fluid collection. There is a small amount of free fluid seen in the nondependent portion of the abdomen near the left mid abdominal diastases. LIVER, GALLBLADDER, BILIARY TREE: The non-contrast liver is normal in size, shape, and attenuation. No focal hepatic lesion or biliary ductal dilatation is present. The gallbladder is unremarkable with no evidence of radiopaque gallstones, gallbladder wall thickening, or obvious pericholecystic inflammatory changes. PANCREAS: Atrophic but otherwise unremarkable. SPLEEN: Unremarkable. ADRENAL GLANDS: Unremarkable. KIDNEYS AND URETERS: The kidneys are normal in size, shape, and attenuation. No hydronephrosis, hydroureter, or calculi seen. No perinephric stranding. BLADDER: Decompressed by Orta catheter. GASTROINTESTINAL TRACT: Patient appears to be status post right hemicolectomy with ileocolic anastomosis in the right midabdomen. Specific attention is given to the stomach. There does appear to be pre-/food products within the stomach.. Is nondependent tiny air bubble seen along the posterior fundal wall of the stomach and portions of this may be within the wall itself suggesting a nonspecific gastric pneumatosis. ABDOMINAL WALL: Diffuse anasarca is present. LYMPHOVASCULAR STRUCTURES: Mild vascular calcification in the aorta. No bulky adenopathy. PELVIC VISCERA: Unremarkable. OSSEUS STRUCTURES: Healing fractures within the pelvis are again noted. IMPRESSION: This is a complex examination. Ascites is similar to the prior study. There is a tiny amount of free air seen also similar to the prior examination. There is an abnormal appearance to the stomach. There are tiny bubbles of air seen along the nondependent portion of the gastric fundus possibly representing a component of gastric pneumatosis of uncertain significance or etiology. Nasogastric tube is seen within the lumen of the stomach. Percutaneous drain is seen within the previously noted right pelvic collection. Clinical correlation will be needed for this complex appearance.
--- NOTE | 2016-08-10 14:14 | Event Note ---
Event Note Event Note: Spoke to ID director of aviation, patient will be started on Zosyn for gram negative coverage and anaerobic coverage. Dose and frequency discussed with pharmacy, patient started on Zosyn 4.5gm Q6, till further ID recs made. D/C oxacillin.
[2016-08-10 16:00] VITALS: BP 136/47
--- NOTE | 2016-08-10 18:35 | Cons- General Surgery ---
General Information and HPI Consulting Request Date of Consult: 08/10/16 Requested By: JERICHO RAMON MD History of Present Illness: CC: Decubitus ulcer and hypotension HPI: Patient known to our service for treatment of multiple infections, diabetic smoker, last time I saw her 04/12/2016 for a cutaneous abscess that required incision and drainage. She was admitted the 13 of this month with a retroperitoneal pelvic abscess near a pelvic fracture for which she had a percutaneous drain placed. Her hospital course has been complicated by hypotension requiring IV pressors intermittently. She also developed a decubitus ulcer which I have been trying to get to past few days but she was refusing exam of the area. Last night she was transferred back to the ICU with hypotension and a stat CT scan was done. The findings were similar to yesterday 's, showing possible pneumatosis in the stomach which was very dilated some free air and significant free fluid in the peritoneum and anasarca. An NG tube has been placed already 2-1/2 L of not grossly bloody effluent produced. Also because of edema and positive fluid balance she has been on fluid restriction. She is awake and agrees today for me to examine her backside. The age of this decubitus is not known. Patient states that the area is not bothering her she denies any fevers or sweats she says she's had abdominal pain for a "long time" not focal, not more severe since yesterday, but she does feel better in her upper abdomen since the NG tube was placed. She hasn't vomited on this admission, but states that she has been vomiting in the recent past. Last bowel movement 2 days ago according to the records. The PFSH and ROS were reviewed and have not changed significantly since my initial consult in the hospital on 11/17/2014, unless stated. Allergies/Medications Allergies: Coded Allergies: codeine (Intermediate, HIVES 06/17/16) nickel (Intermediate, RASH 06/17/16) adhesive tape (Mild, RASH 06/17/16) duloxetine (Intermediate, NAUSEA 06/17/16) hydrocodone (GI UPSET (ESOPHAGITIS) 06/17/16) ibuprofen (GI UPSET (ESOPHAGITIS) 06/17/16) Home Med List: Albuterol Sulfate (Proair Hfa) 90 MCG HFA.AER.AD 2 PUF INH Q4-6 PRN PRN SOB ( Reported) Diphenhydramine HCl (Benadryl) 25 MG CAPSULE 1 CAP PO Q6 PRN ITCHING ( Reported) Ergocalciferol (Vitamin D2) (Drisdol) 50,000 UNIT CAPSULE 1 CAP PO QW Supplement Please take one of these medications every week for the next eight weeks. After that, you will be required to take one every two weeks for mainainance of your vitamin D Levels. Hydrocortisone Acetate (Micort-Hc) 2.5 % CREAM.APPL 1 DEMETRA TOP TID ITCHING ( Reported) Insulin Aspart (Novolog) 100 UNIT/ML VIAL 0 SC SEE ADMIN CRITERIA Diabetes Your insulin coverage was changed while in hospital. Sliding Scale Blood Sugar Less that 80mg/dl Initiate Hypoglycemia protocol 80-150 mg/dl 12 units 151-200 mg/dl 14 units 201-250 mg/dl 16 units 251-300 mg/dl 18 units 301-350 mg/dl 20 units 351-400 mg/dl 22 units More than 400 mg/dl 24 units call MD Please check your blood sugar at least three times a day. Inform your lens examiner about this change. Insulin Detemir (Levemir) 100 UNIT/ML VIAL 60 UNITS SC BID DM Pregabalin (Lyrica) 150 MG CAPSULE 1 CAP PO BID NEUROPATHY (Reported) Propranolol HCl 20 MG TABLET 1 TAB PO BID ANXIETY (Reported) Quetiapine Fumarate 100 MG TABLET 100 MG PO AT BEDTIME ANXIETY/SLEEP Current Medications: I reviewed Current Medications Sig/Shahla Start time Last Medication Dose Route Stop Time Status Admin Acetaminophen 1,000 MG .STK-MED ONE 08/10 0822 DC IV 08/10 0823 Acetaminophen 1,000 MG .STK-MED ONE 08/09 2217 DC IV 08/09 2218 Acetaminophen 1,000 MG .STK-MED ONE 08/09 1807 DC IV 08/09 1808 Acetaminophen 1,000 MG Q6P PRN 08/07 1630 AC 08/10 N/A 1 UNIT IV 0830 Acetaminophen 650 MG Q4 HRS NEEDED PRN 07/31 0800 AC 08/08 PO 0156 Albuterol Sulfate 3 ML BID 08/05 2200 AC 08/10 INH 1157 Albuterol Sulfate 2 PUF Q4P PRN 07/30 2200 AC 08/07 INH 0914 Collagenase 1 DEMETRA DAILY 08/04 1000 AC 08/06 TOP 1229 Diclofenac Sodium 1 DEMETRA TID PRN 07/30 1145 AC 08/05 TOP 2142 Diphenhydramine HCl 50 MG .STK-MED ONE 08/09 2125 DC IM 08/09 212 Diphenhydramine HCl 50 MG Q6P PRN 08/07 1630 AC 08/09 IV 2132 Docusate Sodium 100 MG DAILY 07/31 1000 AC 08/09 PO 1821 Enoxaparin Sodium 40 MG DAILY 08/08 1000 AC SC Escitalopram Oxalate 10 MG 0800 08/09 0800 AC PO Haloperidol 2 MG Q8P PRN 08/07 1830 AC 08/09 PO 1821 Hydromorphone HCl 0.2 MG ONCE ONE 08/10 1615 DC 08/10 IV 08/10 1616 1611 Hydromorphone HCl 0.2 MG ONCE ONE 08/10 1030 DC 08/10 IV 08/10 1031 1153 Hydromorphone HCl 0.2 MG Q6P PRN 08/09 1230 DC 08/09 IV 1520 Insulin Aspart 0 TIDAC/HS 08/01 0800 DC 08/10 SC 0830 Insulin Human Regular 0 Q6 08/10 1800 UNVr 08/10 SC 1745 Lidocaine 1 PAT DAILY 07/28 1800 AC 07/28 EXT 2004 Miconazole Nitrate 1 DEMETRA AT BEDTIME 07/29 0130 AC 08/06 VAG 2210 Non-Formulary 0 SEE ADMIN CRITERIA 08/10 1245 CAN Medication ANY Norepinephrine 4 MG Q5H 08/10 1700 AC 08/10 Dextrose/Water 250 ML IV 1742 Norepinephrine 4 MG Q24H 08/10 1345 DC 08/10 Dextrose/Water 250 ML IV 1000 Norepinephrine 4 MG Q24H 08/10 0845 DC Dextrose/Water 250 ML IV Oxacillin Sodium 2,000 MG Q4 08/03 1400 DC 08/10 Sodium Chloride 100 ML IV 0956 Piperacillin Sod/ 4.5 GM Q6H 08/10 2130 AC Tazobactam Sod IV Sodium Chloride 100 ML Piperacillin Sod/ 4.5 GM Q6H 08/10 1400 DC 08/10 Tazobactam Sod IV 1520 Sodium Chloride 50 ML Pregabalin 150 MG BID 07/28 2200 AC 08/08 PO 0913 Propofol 1,000 MG Q24H 08/10 1300 CAN N/A 100 ML IV Senna/Docusate Sodium 2 TAB DAILY 07/31 1000 AC 08/09 PO 1821 Simethicone 80 MG .STK-MED ONE 08/09 1811 DC PO 08/09 1812 Simethicone 80 MG Q6P PRN 08/03 0830 AC 08/09 PO 1821 Sodium Bicarbonate 1,300 MG TID 08/05 1059 AC 08/08 PO 0913 Sodium Chloride 500 ML BOLUS ONE 08/10 1745 UNVr 08/10 IV 08/10 1844 1742 Sodium Chloride 500 ML BOLUS ONE 08/10 1630 DC 08/10 IV 08/10 1729 1655 Sodium Chloride 500 ML BOLUS ONE 08/10 0800 DC 08/10 IV 08/10 0859 0900 Sodium Chloride 500 ML BOLUS ONE 08/10 0800 DC 08/10 IV 08/10 0859 0830 Past History Medical History Blood Transfusion Hx: Yes Neurological: NONE EENT: hearing loss Cardiovascular: NONE Respiratory: asthma, S/P CHEST TUBE 05/2016 Gastrointestinal: necrotizing fasciitis of the perineum S/P COLOSTOMY Hepatic: NONE Renal: left pararenal abscess Musculoskeletal: OSTEOMYELITIS OF PUBIS PUBIS FX Psychiatric: anxiety, chronic pain disorder, depression, opioid dependence, POLYSUBSTANCE ABUSE NARCOTIC DEPENDENCE SUICIDAL IDEATION Endocrine: INSULIN DEPENDENT DIABETES - noncompliant Blood Disorders: anemia Cancer(s): NONE AVIONICS MANAGER/Reproductive: ECTOPIC Other Medical Hx: Left axillary abscess secondary to MSSA status post I&D November 2014 Right deltoid abscess March 2016 secondary to MSSA Surgical History Pertinent Surgical History: , hysterectomy, D&C colostomy with reversal left axillary abscess November 2014 Family History Relations & Conditions If Any: FATHER (diabetese mellitis Currently 06/16/2015- unable to get any meaningful FHx from patient, s/p drug OD.). FH: cirrhosis Psychosocial History Where Do You Live? Home Who Do You Live With? with friend Primary Language: [place] Smoking Status: Current Everyday Smoker ETOH Use: denies use Living Will? no Power of Harvest Supervisor/HCP? no Functional Ability ADLs Independent: dressing, eating, toileting, bathing. Ambulation: independent IADLs Independent: shopping, housework, finances, food prep, telephone, transportation , medication admin. Review of Systems Review of Systems: As stated above Exam & Diagnostic Data Vital Signs and I&O I reviewedVital Signs Date Time Temp Pulse Resp B/P Pulse O2 O2 Flow FiO2 Ox Delivery Rate 08/10 1742 114 96/43 08/10 1036 94 Nasal 4.0L Cannula 08/10 1000 85/39 08/10 0930 80/50 08/10 0900 66/40 08/10 0830 120 22 60/0 94 Nasal 4.0L Cannula 08/10 0800 95 Nasal 4.0L Cannula 08/10 0618 97.7 108 20 92/60 92 Nasal 4.0L Cannula 08/10 0000 97 Nasal 5.0L Cannula 08/09 2240 98.1 106 20 90/56 97 Nasal 5.0L Cannula 08/09 1900 78 Room Air I reviewed Intake & Output 08/10 1600 08/10 0800 08/10 0000 08/09 1600 08/09 0800 08/09 0000 Intake Total 893 047 0063 640 250 Output Total 0 401 10 755 Balance 550 -151 1090 -115 250 Intake, IV 300 150 300 300 150 Intake, Oral 250 100 800 340 100 Number 0 Bowel Movements Output, 0 10 5 Drainage Output, Stool 1 Output, Urine 400 750 Physical Exam: Constitutional: Awake and oriented but slightly sedated from recent medication, no acute distress, conversant Eyes: sclera anicteric ENMT: ears and nose atraumatic, moist mucous membranes, poor dentition, no lip lesions Neck: Supple, trachea is midline, no cervical or supraclavicular adenopathy and no palpable thyromegaly Cardiovascular: S1, S2, no murmurs, there is diffuse peripheral edema Respiratory: clear to auscultation with normal respiratory effort and no intercostal retractions GI: abdomen soft, no rebound but diffusely tender, nondistended, no palpable hepatosplenomegaly Extremities / lymphatics: symmetrically warm, did not evaluate range of motion because she is uncomfortable near right hip area there is anasarca, no cervical, supraclavicular, axillary, or inguinal adenopathy Musculoskeletal: Could not evaluate gait and station, no digital cyanosis, good muscle strength and tone no atrophy, motor exam not done Skin: no jaundice, nondiaphoretic, no areas of erythema or induration, she does have some faint erythema in her right forearm which by the ink beckwith has diminished, also on her lower back there is a slight diffuse macular rash dry. In her mid lower sacrum is a 3-4 cm round area of erythema with a central black patch of necrotic skin with some surrounding excoriation no crepitus it's dry no induration or fluctuance. Psychiatric: mood and affect are appropriate and alert and oriented to person place and time Last 24 Hours of Labs: I reviewed Laboratory Tests 08/10 08/10 0810 0525 Chemistry Sodium (137 - 145 mmol/L) 130 L Potassium (3.5 - 5.1 mmol/L) 5.0 Chloride (98 - 107 mmol/L) 101 Carbon Dioxide (22 - 30 mmol/L) 20 L Anion Gap (5 - 16) 10 BUN (7 - 17 mg/dL) 51 H Creatinine (0.5 - 1.0 mg/dL) 1.7 H Estimated GFR (>60 ml/min) 33 L BUN/Creatinine Ratio (7 - 25 %) 30.0 H Lactic Acid (0.7 - 2.1 mmol/L) 3.1 H Troponin I (< 0.11 ng/ml) < 0.01 Cortisol AM Sample (4.46 - 22.7 ug/dL) 42.4 H Hematology CBC w Diff MAN DIFF ORDERED WBC (4.8 - 10.8 /CUMM) 20.9 H RBC (4.20 - 5.40 /CUMM) 4.07 L Hgb (12.0 - 16.0 G/DL) 10.7 L Hct (37 - 47 %) 33.1 L MCV (81.0 - 99.0 FL) 81.5 MCH (27.0 - 31.0 PG) 26.3 L RDW (11.5 - 14.5 %) 18.6 H Plt Count (130 - 400 /CUMM) 279 MPV (7.4 - 10.4 FL) 7.9 Gran % (42.2 - 75.2 %) 94.5 H Lymphocytes % (20.5 - 51.1 %) 3.8 L Monocytes % (1.7 - 9.3 %) 0.8 L Eosinophils % (0 - 5 %) 0.6 Basophils % (0.0 - 2.0 %) 0.3 Absolute Granulocytes (1.4 - 6.5 /CUMM) 19.8 H Segmented Neutrophils (42.2 - 75.2 %) 63 Band Neutrophils (0.0 - 5.0 %) 25 H Absolute Lymphocytes (1.2 - 3.4 /CUMM) 0.8 L Lymphocytes (20.5 - 51.1 %) 4 L Monocytes (1.7 - 9.3 %) 4 Absolute Monocytes (0.10 - 0.60 /CUMM) 0.2 Eosinophils (0 - 5.0 %) 4 Absolute Eosinophils (0.0 - 0.7 /CUMM) 0.1 Absolute Basophils (0.0 - 0.2 /CUMM) 0.1 Polychromasia 1+ Anisocytosis 2+ PUBS MCHC (33.0 - 37.0 G/DL) 32.3 L Assessment/Plan Assessment/Plan I reviewed on PACS myself the CT scans from today yesterday and the , since the perc drain there has been the development of anasarca and peritoneal fluid there are a few small spots of free air some are near the drain and there is one in the left upper quadrant where the abdominal wall is attenuated from previous colostomy and hernia repair, these have not changed since noticed yesterday, it' s difficult to be sure but it seems that the perc drain has not moved significantly, I discussed the case with the radiologist on review does not appear that there is some primary bowel inflammation like appendicitis, there is some nonspecific changes in the stomach suggesting pneumatosis but those have not increased in the interval, this free fluid measures "simple" and areas that are not deep dependent or affected by artifact. Also as noted previously the area of the decubitus is not veryy apparent on the imaging. Impression #1 hypotension and abdominal pain, and also oliguria Her exam is limited because of her history of chronic pain but there is some relative improvement after NG tube drainage. I admit it's not clear why she had such gastric distention. From a surgical perspective my main question is if the new peritoneal fluid is infected or not and why. For example is it related to the percutaneous drain which by itself seems to be working and has drained the collection and it's still secure, and the fluid can be explained by previous IV fluids and hypoproteinemia. She is awake and relatively alert she's not intubated she has been on fluid restriction, and along with almost 3 L out of her NG tube she is probably become dehydrated so and as a first step I recommend rehydrating her with NS to see if this can restore her urine output help with her blood pressure, eliminating the need for the pressors, this is more important than the edema at this point. The few spots of free air could be explained by the insertion manipulation and flushing of the percutaneous drain, because her exam is limited we must really rely on the imaging, I feel that her situation if she were to be taken to the operating room she risks prolonged ventilator dependency, so prefer to avoid it it would be more expedient to sample this fluid percutaneously under ultrasound guidance. If she worsens or does not improve with IV fluids we might have to intervene surgically anyway. Also agree with broadening antibiotic coverage empirically. #2 decubitus ulcer- on exam it's relatively superficial reaching into the subcutaneous layer but not to the bone but given her history and propensity for aggressive infections I sharply excised with a 10 blade this necrotic patch under aseptic conditions at the bedside, cutting it back to the bleeding edges of the subcutaneous level. This was covered with Xeroform and a wet-to-dry gauze, some bacitracin ointment and tape. She was premedicated and tolerated this procedure well. I do not feel that this is the source of her hypotension there was no deep tracking or necrosis or fasciitis. I discussed the case and plan with the treating ICU team. Problem List: 1. Diabetes mellitus 2. Abdominal pain 3. Fracture of right inferior pubic ramus 4. Oliguria 5. Decubitus ulcer 6. Hypotension 7. Pelvic abscess Consult Acknowledgment - Thank you for your consult request.
[2016-08-10 20:33] LABS: ABSOLUTE BASOPHIL COUNT 0 /CUMM (0.0-0.2); ABSOLUTE EOSINOPHIL COUNT 0.1 /CUMM (0.0-0.7); ABSOLUTE GRANULOCYTE CT 28.7 /CUMM (1.4-6.5); ABSOLUTE LYMPH COUNT 0.8 /CUMM (1.2-3.4); ABSOLUTE MONOCYTE COUNT 0.1 /CUMM (0.10-0.60); BASOPHIL % 0 % (0.0-2.0); EOSINOPHIL % 0.4 % (0-5); GRANULOCYTE % 96.4 % (42.2-75.2); HEMATOCRIT 32.8 % (37-47); MEAN CORPUSCULAR HGB 26.2 PG (27.0-31.0); MEAN PLATELET VOLUME 7.9 FL (7.4-10.4); PLATELET COUNT 319 /CUMM (130-400); RBC DISTRIBUTION WIDTH 19.1 % (11.5-14.5); WHITE BLOOD CELL COUNT 29.8 /CUMM (4.8-10.8)
--- NOTE | 2016-08-10 20:45 | NUR ---
LATE ENTRY: SHIFT NOTE [id number] 1000: RECEIVED PT FROM [facility] AFTER RAPID RESPONSE. PT CAME TO UNIT IN ICU BED. A+OX3, ON 5L NC, LUNGS CLEAR IN UPPER LOBES, DIMINISHED IN THE BASES. ST ON MONITOR. AFEBRILE. MANUAL B/P 80/50. AUTO CORRELATING. LEVO GTT STARTED AT 5MCG/KG/HR, TITRATED PER PROTOCOL, SEE FLOW SHEET. ABDOMEN SOFT, OBESE, LUQ PAIN AND TENDERNESS, SWELLING NOTED TO LUQ. PELVIC DRAIN TO LOWER ABDOMEN IN PLACE, DRAINING CLEAR REINOSO LIQUID. ELIAS IN PLACE WITH SCANT URINE OUTPUT. RIGHT ARM RED/WARM/SWOLLEN, ELEVATED ON PILLOW. SCABS NOTED TO LEFT NECK, TAPE ALLERGY FROM PREVIOUS CENTRAL LINE. MULTIPLE SCABS NOTED ALL OVER PT'S EXTREMITIES AND ON HER SCALP, PT SCRATCHES. GENERALIZED EDEMA +4 FROM WAIST DOWN. NECROTIC AREA TO RIGHT BUTTOCK, CONTACT DERMATITIS NOTED TO BOTTOM. PT REFUSES TO BE TURNED. LCW PROLINE IN PLACE, +BLOOD RETURN, BIOPATCH IN PLACE. 1130: NGT PLACED BY MP SENA AND THIS RN, CONFIRMED PLACEMENT WITH AIR INSTILLATION AND BY CT SCAN, PLACED TO LOW WALL SUCTION, 2L OF REINOSO DRAINAGE OBTAINED QUICKLY. PT TO AND FROM CT SCAN WITH NO ISSUES, REMAINS ON LEVO GTT SEE FLOW SHEET FOR TITRATION. DURING SHIFT PT RECEIVED 2 MORE 500ML NS BOLUSES DUE TO NO URINE OUTPUT FROM ELIAS. LEVO GTT TITRATED UP TO 17MCG/KG/HR BY THE END OF SHIFT. IV TYLENOL GIVEN WELL AT 2 ONE TIME DOSES OF 0.2MG IV DILAUDID. DR DELANEY DEBRIDED RIGHT BUTTOCK NECROTIC AREA AND PLACED XEROFORM, WET TO DRY DRESSING. PT REFUSES TO BE TURNED AND REPOSITIONED. CRYING, SCREAMING. HOUSE STAFF AWARE. STAT LABS DRAWN AT 1938 SENT TO LAB, AWAITING RESULTS, REPORT GIVEN TO NIGHT RN.
[2016-08-11] VITALS: BP 90/50
--- NOTE | 2016-08-11 00:07 | NUR ---
REC'D PT IN BED 1929. PT WAS CRYING OUT LOUD & C/O ABD PAIN DIFFUSE/CRAMPING. PT WAS JUST MEDICATED W/TYLENOL IV SEE EMAR. T&P/BOOSTED UP PT IN BED. R BUTTOCK CHEEK DEBRIDED BY DR. COMBS EARLIER. DRSG TO R BUTTOCK REMAINED INTACT. WEEPING NOTED TO BLE. EXCORIATED BOTTOM D/T DERMATITIS. ON A TOTAL CARE BED WITH ROTATIONAL MODE. A LOT OF REASSURANCE GIVEN. AND INFORM PT THAT THE MED WILL TAKE AFFECT WITHIN 30MIN-1HR & GIVE IT A CHANCE. INFORMED DR. HIDALGO RE. PT >PAIN 10/10 SCORE & MD STATED NOT TO GIVE ANY NARCOTIC AT ALL. ST ON THE MONITOR HR IN 110'S WITH SBP 90-110'S, ON LEVOPHED GTT, TITRATING TO MAINTAIN SBP >90 PER MD. SEE ICU SHEET. FC INSITU & ЕКАТЕРИНА URINE POOR U/O. ON 5LNC POX 93% AT TIMES POX PROBE NOT READING WELL D/T COOL FINGER TIPS. LS CLEAR BUT DIMINISHED THROUGHOUT THE LOBES. NGT TO LWS CREAMY/REINOSO COLOR D/C 3L OUTPUT SO FAR SINCE DAYS. NPO FOR NOW BUT PT REQUESTING H2O WHICH I INFORM PT NO H2O D/T ABD PAIN & STILL NPO ONLY SWABS TO BE GIVEN. ABD SOFT HYPOACTIVE BS. PERITONEAL DRAIN INSITU & FLUSHED 10CC OF NS & DRAINED CLEAR D/C. CONT MONITOR TO PT QHOURLY. SLEEPING EACH TIME BUT AROUSABLE. INFORMED DR. VALENZUELA RE. PT'S STATUS & LACTIC NOT DONE AT 2200. WILL F/U FOR MIDNIGHT LABS. 2330 RE DAWIT ASSUME CARE.
--- NOTE | 2016-08-11 00:59 | NUR ---
PT SLEEPY BUT EASILY AROUSABLE. DENIES PAIN AT THIS TIME. MANUAL BP 90/50, LEVOPHED INFUSING AT 15MCG. ST 110'S. SATURATION 95% ON 5L O2. LUNGS SOUND CLEAR. NGT IN PLACE, DRAINING TO GREENISH LIQUID. ABDOMEN SOFT, HYPOACTIVE BS. RIGHT ABDOMEN PERITONEAL DRAIN IN PLACE. ELIAS IN PLACE, POOR UO NOTED. RIGHT BUTT DRESSING DRY AND INTACT.
[2016-08-11 03:46] LABS: HEMATOCRIT 32.4 % (37-47); MEAN CORPUSCULAR HGB 26.3 PG (27.0-31.0); MEAN CORPUSCULAR HGB CONC 32.1 G/DL (33.0-37.0); MEAN CORPUSCULAR VOLUME 81.9 FL (81.0-99.0); MEAN PLATELET VOLUME 7.6 FL (7.4-10.4); PLATELET COUNT 294 /CUMM (130-400); RBC DISTRIBUTION WIDTH 18.4 % (11.5-14.5); RED BLOOD CELL CT 3.96 /CUMM (4.20-5.40)
--- NOTE | 2016-08-11 07:04 | PN- Resident CRCU ---
Subjective HPI/CRCU Issues: Pt was transferred to ICU for hypotension with systolic BP 60 over doppler. Started on levophed, currently on levophed 15. BP range systolic 83-114, diastolic 41-54. Oxacillin changed to zosyn for pseudomonal coverage. NG tube inserted and put out 4000ml of bright yellow fluid, now muddy bilious. UO continues to be low, 35ml over the past 24 hours, with 30ml drained from the pelvis over the last 24 hours. When I saw her this morning, she was initially asleep, appears comfortable. When she woke up, she still complains of diffuse abdominal pain and refused abdominal exam. She is agreeable to hold off pain meds due to risk of hypotension. PO meds have been discontinued including lexapro, haldo, lyrica, na bicarb, senna, docusate, tylenol, simethicone. THese meds would need to be reordered once pt can eat. WIll check with pharmacy regarding converting na bicarb to IV. Recc 50meq na bicarb in NS at 50ml/hr X1 bag daily. Free air in abdomen concerning for perforation... ? perforated ulcer vs diverticulitis... will get US guided drainage of pelvic collection through IR today. Surgery also on board in case she needs emergency exploratory laparotomy. Lab reviewed: WBC down from 29.8 to 23,band from 14 to 6, na 132 to 128, cr 1.8 to 2.3, lactic acid 2.5 to 2.7. 24 Hour Events: Max temp 97.3 ST 106-118 RR 14-20, on 5L NC Objective Vital Signs & I&O Last 8 Hrs of Vitals and I&O: Intake & Output 08/11 1600 08/11 0800 08/11 0000 Intake Total 528 1754 Output Total 1045 1040 Balance -517 714 Intake, IV 528 1744 Intake, Oral 0 Intake, Other 10 Number 0 Bowel Movements Output, 10 Drainage Output, 1000 1000 Gastric Drainage Output, Other 10 Output, Urine 35 30 Laboratory Tests 08/11 08/11 08/11 0320 0320 0000 Chemistry Sodium (137 - 145 mmol/L) 128 L Potassium (3.5 - 5.1 mmol/L) 5.0 Chloride (98 - 107 mmol/L) 100 Carbon Dioxide (22 - 30 mmol/L) 17 L Anion Gap (5 - 16) 10 BUN (7 - 17 mg/dL) 56 H Creatinine (0.5 - 1.0 mg/dL) 2.3 H Estimated GFR (>60 ml/min) 23 L Glucose (65 - 99 mg/dL) 188 H Lactic Acid (0.7 - 2.1 mmol/L) 2.7 H 2.5 H Calcium (8.4 - 10.2 mg/dL) 8.6 Phosphorus (2.5 - 4.5 mg/dL) 8.5 H Magnesium (1.6 - 2.3 mg/dL) 2.0 Total Bilirubin (0.2 - 1.3 mg/dL) 0.2 AST (14 - 36 U/L) 28 ALT (9 - 52 U/L) 45 Albumin (3.5 - 5.0 g/dL) 2.0 L Hematology CBC w Diff MAN DIFF ORDERED WBC (4.8 - 10.8 /CUMM) 23.0 H RBC (4.20 - 5.40 /CUMM) 3.96 L Hgb (12.0 - 16.0 G/DL) 10.4 L Hct (37 - 47 %) 32.4 L MCV (81.0 - 99.0 FL) 81.9 MCH (27.0 - 31.0 PG) 26.3 L RDW (11.5 - 14.5 %) 18.4 H Plt Count (130 - 400 /CUMM) 294 MPV (7.4 - 10.4 FL) 7.6 Segmented Neutrophils (42.2 - 75.2 %) 79 H Band Neutrophils (0.0 - 5.0 %) 6 H Lymphocytes (20.5 - 51.1 %) 13 L Eosinophils (0 - 5.0 %) 1 Metamyelocytes (0.0 - 1.0 %) 1 Platelet Estimate (ADEQUATE) ADEQUATE Polychromasia 1+ Hypochromic-Microcytic 1+ Poikilocytosis 2+ Anisocytosis 1+ Microcytic Cells 1+ Ovalocytes 1+ Stomatocytes 1+ PUBS MCHC (33.0 - 37.0 G/DL) 32.1 L Other Body Source Fld Total RBCs Counted (%) 100 08/10 08/10 3511 8978 Chemistry Sodium (137 - 145 mmol/L) 132 L Potassium (3.5 - 5.1 mmol/L) 5.2 H Chloride (98 - 107 mmol/L) 100 Carbon Dioxide (22 - 30 mmol/L) 18 L Anion Gap (5 - 16) 14 BUN (7 - 17 mg/dL) 54 H Creatinine (0.5 - 1.0 mg/dL) 1.8 H Estimated GFR (>60 ml/min) 31 L Glucose (65 - 99 mg/dL) 210 H Lactic Acid (0.7 - 2.1 mmol/L) Cancelled 3.4 H Calcium (8.4 - 10.2 mg/dL) 8.3 L Phosphorus (2.5 - 4.5 mg/dL) 8.1 H Magnesium (1.6 - 2.3 mg/dL) 2.0 Total Bilirubin (0.2 - 1.3 mg/dL) 0.4 AST (14 - 36 U/L) 31 ALT (9 - 52 U/L) 44 Albumin (3.5 - 5.0 g/dL) 2.0 L Hematology CBC w Diff MAN DIFF ORDERED WBC (4.8 - 10.8 /CUMM) 29.8 H RBC (4.20 - 5.40 /CUMM) 4.00 L Hgb (12.0 - 16.0 G/DL) 10.5 L Hct (37 - 47 %) 32.8 L MCV (81.0 - 99.0 FL) 82.0 MCH (27.0 - 31.0 PG) 26.2 L RDW (11.5 - 14.5 %) 19.1 H Plt Count (130 - 400 /CUMM) 319 MPV (7.4 - 10.4 FL) 7.9 Gran % (42.2 - 75.2 %) 96.4 H Lymphocytes % (20.5 - 51.1 %) 2.8 L Monocytes % (1.7 - 9.3 %) 0.4 L Eosinophils % (0 - 5 %) 0.4 Basophils % (0.0 - 2.0 %) 0 L Absolute Granulocytes (1.4 - 6.5 /CUMM) 28.7 H Segmented Neutrophils (42.2 - 75.2 %) 82 H Band Neutrophils (0.0 - 5.0 %) 14 H Absolute Lymphocytes (1.2 - 3.4 /CUMM) 0.8 L Lymphocytes (20.5 - 51.1 %) 2 L Monocytes (1.7 - 9.3 %) 2 Absolute Monocytes (0.10 - 0.60 /CUMM) 0.1 L Absolute Eosinophils (0.0 - 0.7 /CUMM) 0.1 Absolute Basophils (0.0 - 0.2 /CUMM) 0 Hypochromic-Microcytic 1+ Poikilocytosis 1+ Stomatocytes 1+ PUBS MCHC (33.0 - 37.0 G/DL) 32.0 L Vital Signs Date Time Temp Pulse Resp B/P Pulse O2 O2 Flow FiO2 Ox Delivery Rate 08/11 0557 112 16 96/48 08/11 0400 95 Nasal 5.0L Cannula 08/11 0041 114 16 90/50 08/11 0000 95 Nasal 5.0L Cannula 08/11 0000 96.6 114 18 90/50 95 Nasal 5.0L Cannula 08/10 2139 113 91/49 08/10 2000 93 Nasal 5.0L Cannula 08/10 1955 94 Nasal 4.0L Cannula 08/10 1742 114 96/43 08/10 1600 Nasal 5.0L Cannula 08/10 1600 97.3 114 20 136/47 94 Nasal 5.0L Cannula 08/10 1200 Nasal 5.0L Cannula 08/10 1036 94 Nasal 4.0L Cannula 08/10 1000 85/39 08/10 0930 80/50 08/10 0900 66/40 Exam General Appearance: alert, awake, mild distress Head: atraumatic Neck: normal inspection Respiratory: lungs clear Cardiovascular: regular rate/rhythm, tachycardia Gastrointestinal: tender to palpation, refused to be examined further, could not appreciate bowel sound Current Medications: Current Medications Sig/Shahla Start time Last Medication Dose Route Stop Time Status Admin Acetaminophen 1,000 MG .STK-MED ONE 08/10 1855 DC IV 08/10 1856 Acetaminophen 1,000 MG Q6P PRN 08/07 1630 AC 08/10 N/A 1 UNIT IV 1859 Acetaminophen 650 MG Q4 HRS NEEDED PRN 07/31 0800 DC 08/11 PO 0558 Albuterol Sulfate 3 ML BID 08/05 2200 AC 08/10 INH 1955 Albuterol Sulfate 2 PUF Q4P PRN 07/30 2200 AC 08/07 INH 0914 Collagenase 1 DEMETRA DAILY 08/04 1000 AC 08/06 TOP 1229 Diclofenac Sodium 1 DEMETRA TID PRN 07/30 1145 AC 08/05 TOP 2142 Diphenhydramine HCl 50 MG Q6P PRN 08/07 1630 AC 08/11 IV 0807 Docusate Sodium 100 MG DAILY 07/31 1000 DC 08/09 PO 1821 Enoxaparin Sodium 40 MG DAILY 08/08 1000 AC SC Escitalopram Oxalate 10 MG 0800 08/09 0800 DC PO Haloperidol 2 MG Q8P PRN 08/07 1830 DC 08/09 PO 1821 Hydromorphone HCl 0.2 MG ONCE ONE 08/10 1615 DC 08/10 IV 08/10 1616 1611 Hydromorphone HCl 0.2 MG ONCE ONE 08/10 1030 DC 08/10 IV 08/10 1031 1153 Insulin Aspart 0 TIDAC/HS 08/01 0800 DC 08/10 SC 0830 Insulin Human Regular 0 Q6 08/10 1800 AC 08/11 SC 0601 Lidocaine 1 PAT DAILY 07/28 1800 AC 07/28 EXT 2004 Miconazole Nitrate 1 DEMETRA AT BEDTIME 07/29 0130 AC 08/06 VAG 2210 Non-Formulary 0 SEE ADMIN CRITERIA 08/10 1245 CAN Medication ANY Norepinephrine 4 MG Q5H 08/11 0015 AC 08/11 Sodium Chloride 250 ML IV 0758 Norepinephrine 4 MG Q5H 08/10 1700 DC 08/10 Dextrose/Water 250 ML IV 2139 Norepinephrine 4 MG Q24H 08/10 1345 DC 08/10 Dextrose/Water 250 ML IV 1000 Norepinephrine 4 MG Q24H 08/10 0845 DC Dextrose/Water 250 ML IV Oxacillin Sodium 2,000 MG Q4 08/03 1400 DC 08/10 Sodium Chloride 100 ML IV 0956 Piperacillin Sod/ 4.5 GM Q6H 08/10 2130 AC 08/11 Tazobactam Sod IV 0307 Sodium Chloride 100 ML Piperacillin Sod/ 4.5 GM Q6H 08/10 1400 DC 08/10 Tazobactam Sod IV 1520 Sodium Chloride 50 ML Pregabalin 150 MG BID 07/28 2200 DC 08/08 PO 0913 Propofol 1,000 MG Q24H 08/10 1300 CAN N/A 100 ML IV Senna/Docusate Sodium 2 TAB DAILY 07/31 1000 DC 08/09 PO 1821 Simethicone 80 MG Q6P PRN 08/03 0830 DC 08/09 PO 1821 Sodium Bicarbonate 1,300 MG TID 08/05 1059 DC 08/08 PO 0913 Sodium Chloride 500 ML BOLUS ONE 08/10 1745 DC 08/10 IV 08/10 1844 1742 Sodium Chloride 500 ML BOLUS ONE 08/10 1630 DC 08/10 IV 08/10 1729 1655 Sodium Chloride 500 ML BOLUS ONE 08/10 0800 DC 08/10 IV 08/10 0859 0900 Sodium Chloride 500 ML BOLUS ONE 08/10 0800 DC 08/10 IV 08/10 0859 0830 Impression/Plan Impression/Problem List Impression: 40-year-old lady with a PMH of diabetes, previous right-sided hemorrhagic pleural effusion S/P Pleurx catheter, lytic therapy 2, previous MSSA sepsis likely secondary to pro-line catheter, previous necrotizing fasciitis of the perineum, left pararenal abscess, osteomyelitis of pubic bone, polysubstance abuse, depression, opiate dependence who presented with complaints of right-sided hip pain, found to have pelvic abscess, s/p IR drainage was transferred from to ICU for hypotension. It has been noted that her BP drops when she receives dilaudid. She was placed on levophed for blood pressure suppoert. The CT findings is concerning for acute abdomen due to perforation vs bowel obstruction (tiny amount of free air similar to prior imaging, ?perforation gastric ulcer, gastric pneumatosis, diffusely tender abdomen, no bowel sounds heard, > 4L NG tube bright yellow --> muddy green). Her lactic acid elevated up to 2.7, with poor UO (only 35ml over 24 hours). There also appears to be fluid collection in the pelvis, that looks tappable through ultrasound guidance. Dr. Dunaway will attempt US guided drainage. Lines: Orta Proline NG tube Right pelvis catheter Respiratory - Currently stable * Low threshold to intubate Cardiovascular # Hypotension * Continue pressure support with levophed, goal MAP > 65 * D5 half normal saline +75 meq per liter of sodium bicarbonate at 125 mL per hour ID # Pelvic abscess sp IR drainage (right) # Acute abdomen... peritonitis vs perforation vs bowel obstruction * Oxacillin discontinued on 08/10/16. Zosyn started on 08/10/16 to cover pseudomonas. Continue zosyn a 2.25 q6 given current clearance as per nephro recc , confirmed with pharmacy and Dr. Dunbar * Appreciate IR input, plan for US guided drainage of fluid collection/ascites * Appreciate surgery input, consider exploratory laparotomy * The tube should be open to external gravity drainage via drainage bag. Tube should be flushed Q shift with 10 mL normal saline. Strict output should be measured, not including these flushes. * Keep NG tube, keep pt NPO * PO meds have been discontinued including lexapro, haldol, lyrica, na bicarb, senna, docusate, tylenol, simethicone. These meds would need to be reordered once pt can eat. # Necrotic decubits ulcer - Excised at bedside 08/10 - Not likely to be source of infection # Right shoulder pain with decreased passive and active ROM (improving) # Right elbow swelling (improving) - Xray and US obtained * Refuses MRI unless done under anesthesia * Appreciate Ortho (Dr. Schulz) input # The scalp lesion popped 08/02 PM, with purulent drainage noted - Alopecia noted Metabolic # Acute kidney injury with low UO * Continue to follow kidney functions * Appreciate nephro input # Hyponatremia * Continue to follow sodium level * Appreciate nephro input # Hyperkalemia * Continue to monitor Psych # Depression # Hx of drug abuse * On the W-10 and the discharge instructions, please ask the receiving facility/ ECF to call and make an intake appointment at [facility], [address] [place] [address] when her discharge date is known, . * Cannot go home with proline, must go to rehab # Agitation * IV benadryl PRN Endocrine # Diabetes mellitus * Novolog tidac/qhs * Levemir 60 bid ON HOLD,consider restarting at lower dose * Watch blood sugar closely * Consider endo consult Alimentary * NPO Skin # Decubitus ulcer * Wound consult with Dr. English appreciated * Consulted surgery, necrotic patch excised at bedside, no deep tracking or necrosis or fasciitis noted. * Consider rectal tube placement Diet: NPO DVT ppx: alps and heparin FC Consults: ID, psych,renal, ortho, PT, wound, surgery Labs: bep mag phos for acute kidney injury , cbc for leukocytosis Problem List: 1. Hypotension Pain Ratin Tomorrow's Labs & Rationales: ICU CBC lactic acid critically ill Plan DVT/Prophylaxis: mechanical, pharmacological Alimentary * Continue Senna, Docusate Skin - Pt refused to be examined on admission and refused to be changed, very reluctant to be turned - On 07/30: wound care nurse Latia noted unstageable pressure injury to right buttocks and stage 2 ulcers on left buttocks. I have not seen it personally myself because she refuses to turn or even move slightly for me, but these ulcers are most likely present on admission * Wound consult with Dr. English appreciated * Consulted surgery for possible debridement * Consider rectal tube placement Diet: CC3 with 1200 ml fluid restriction DVT ppx: alps and Lovenox FC Consults: ID, psych,renal, ortho, PT, wound, surgery Labs: bep mag phos for acute kidney injury , cbc for leukocytosis Plan DVT/Prophylaxis: mechanical, pharmacological
[2016-08-11 08:00] VITALS: BP 90/53
--- NOTE | 2016-08-11 10:49 | PN- Infect Dx ---
Subjective Subjective: Afebrile. She was moved back to ICU yesterday because of hypotension. An NG tube was placed. She continues to complain of abdominal pain. Objective Last 24 Hrs of Vital Signs/I&O Vital Signs Date Time Temp Pulse Resp B/P Pulse O2 O2 Flow FiO2 Ox Delivery Rate 08/11 0557 112 16 96/48 08/11 0400 95 Nasal 5.0L Cannula 08/11 0041 114 16 90/50 08/11 0000 95 Nasal 5.0L Cannula 08/11 0000 96.6 114 18 90/50 95 Nasal 5.0L Cannula 08/10 2139 113 91/49 08/10 2000 93 Nasal 5.0L Cannula 08/10 1955 94 Nasal 4.0L Cannula 08/10 1742 114 96/43 08/10 1600 Nasal 5.0L Cannula 08/10 1600 97.3 114 20 136/47 94 Nasal 5.0L Cannula 08/10 1200 Nasal 5.0L Cannula 08/10 1036 94 Nasal 4.0L Cannula Intake & Output 08/11 1600 08/11 0800 08/11 0000 Intake Total 528 1754 Output Total 1045 1040 Balance -517 714 Intake, IV 528 1744 Intake, Oral 0 Intake, Other 10 Number 0 Bowel Movements Output, 10 Drainage Output, 1000 1000 Gastric Drainage Output, Other 10 Output, Urine 35 30 Physical Exam Other Physical Findings: She appears comfortable in no acute distress HEENT NG tube in place Chest Pro-Line in the left upper chest with no inflammation at the site Lungs are clear Heart regular rhythm with no murmur Abdomen is mildly distended, tender on minimal palpation, with guarding, no bowel sounds appreciated; drainage catheter in place with 10 mL output yesterday and 10 mL overnight Extremities decreased inflammation of the right upper extremity with improved erythema and edema Orta catheter remains in place Results Last 24 Hours of Lab Results: Laboratory Tests 08/11 08/11 08/11 0320 0320 0000 Chemistry Sodium (137 - 145 mmol/L) 128 L Potassium (3.5 - 5.1 mmol/L) 5.0 Chloride (98 - 107 mmol/L) 100 Carbon Dioxide (22 - 30 mmol/L) 17 L Anion Gap (5 - 16) 10 BUN (7 - 17 mg/dL) 56 H Creatinine (0.5 - 1.0 mg/dL) 2.3 H Estimated GFR (>60 ml/min) 23 L Glucose (65 - 99 mg/dL) 188 H Lactic Acid (0.7 - 2.1 mmol/L) 2.7 H 2.5 H Calcium (8.4 - 10.2 mg/dL) 8.6 Phosphorus (2.5 - 4.5 mg/dL) 8.5 H Magnesium (1.6 - 2.3 mg/dL) 2.0 Total Bilirubin (0.2 - 1.3 mg/dL) 0.2 AST (14 - 36 U/L) 28 ALT (9 - 52 U/L) 45 Albumin (3.5 - 5.0 g/dL) 2.0 L Hematology CBC w Diff MAN DIFF ORDERED WBC (4.8 - 10.8 /CUMM) 23.0 H RBC (4.20 - 5.40 /CUMM) 3.96 L Hgb (12.0 - 16.0 G/DL) 10.4 L Hct (37 - 47 %) 32.4 L MCV (81.0 - 99.0 FL) 81.9 MCH (27.0 - 31.0 PG) 26.3 L RDW (11.5 - 14.5 %) 18.4 H Plt Count (130 - 400 /CUMM) 294 MPV (7.4 - 10.4 FL) 7.6 Segmented Neutrophils (42.2 - 75.2 %) 79 H Band Neutrophils (0.0 - 5.0 %) 6 H Lymphocytes (20.5 - 51.1 %) 13 L Eosinophils (0 - 5.0 %) 1 Metamyelocytes (0.0 - 1.0 %) 1 Platelet Estimate (ADEQUATE) ADEQUATE Polychromasia 1+ Hypochromic-Microcytic 1+ Poikilocytosis 2+ Anisocytosis 1+ Microcytic Cells 1+ Ovalocytes 1+ Stomatocytes 1+ PUBS MCHC (33.0 - 37.0 G/DL) 32.1 L Other Body Source Fld Total RBCs Counted (%) 100 08/10 Chemistry Sodium (137 - 145 mmol/L) 132 L Potassium (3.5 - 5.1 mmol/L) 5.2 H Chloride (98 - 107 mmol/L) 100 Carbon Dioxide (22 - 30 mmol/L) 18 L Anion Gap (5 - 16) 14 BUN (7 - 17 mg/dL) 54 H Creatinine (0.5 - 1.0 mg/dL) 1.8 H Estimated GFR (>60 ml/min) 31 L Glucose (65 - 99 mg/dL) 210 H Lactic Acid (0.7 - 2.1 mmol/L) Cancelled 3.4 H Calcium (8.4 - 10.2 mg/dL) 8.3 L Phosphorus (2.5 - 4.5 mg/dL) 8.1 H Magnesium (1.6 - 2.3 mg/dL) 2.0 Total Bilirubin (0.2 - 1.3 mg/dL) 0.4 AST (14 - 36 U/L) 31 ALT (9 - 52 U/L) 44 Albumin (3.5 - 5.0 g/dL) 2.0 L Hematology CBC w Diff MAN DIFF ORDERED WBC (4.8 - 10.8 /CUMM) 29.8 H RBC (4.20 - 5.40 /CUMM) 4.00 L Hgb (12.0 - 16.0 G/DL) 10.5 L Hct (37 - 47 %) 32.8 L MCV (81.0 - 99.0 FL) 82.0 MCH (27.0 - 31.0 PG) 26.2 L RDW (11.5 - 14.5 %) 19.1 H Plt Count (130 - 400 /CUMM) 319 MPV (7.4 - 10.4 FL) 7.9 Gran % (42.2 - 75.2 %) 96.4 H Lymphocytes % (20.5 - 51.1 %) 2.8 L Monocytes % (1.7 - 9.3 %) 0.4 L Eosinophils % (0 - 5 %) 0.4 Basophils % (0.0 - 2.0 %) 0 L Absolute Granulocytes (1.4 - 6.5 /CUMM) 28.7 H Segmented Neutrophils (42.2 - 75.2 %) 82 H Band Neutrophils (0.0 - 5.0 %) 14 H Absolute Lymphocytes (1.2 - 3.4 /CUMM) 0.8 L Lymphocytes (20.5 - 51.1 %) 2 L Monocytes (1.7 - 9.3 %) 2 Absolute Monocytes (0.10 - 0.60 /CUMM) 0.1 L Absolute Eosinophils (0.0 - 0.7 /CUMM) 0.1 Absolute Basophils (0.0 - 0.2 /CUMM) 0 Hypochromic-Microcytic 1+ Poikilocytosis 1+ Stomatocytes 1+ PUBS MCHC (33.0 - 37.0 G/DL) 32.0 L Last 24 Hours of Haris Results: Blood cultures August 10 negative Recent Imaging Studies: CT of the abdomen and pelvis August 09 reveals new perihepatic abdominal and pelvic ascites, with 2 small foci of intra-abdominal air within the upper abdomen; distended stomach with an air-fluid level; drainage catheter within the fluid collection in the right pelvis, now measuring 8 x 8.2 x 4.2 cm, with a small focus of associated extraluminal air; new diffuse patchy airspace opacities within the bilateral lung bases CT of the abdomen and pelvis August 10 reveals ascites as noted on the previous study; a tiny amount of free air seen similar to the prior exam; tiny bubbles of air seen along the nondependent portion of the gastric fundus, possibly representing gastric pneumatosis Assessment/Plan Impression: Her condition has deteriorated with the development of abdominal pain, with ascites and free air raising concern for a perforated viscus, possibly a gastric ulcer, with the question of gastric pneumatosis on the recent CT scan, now on Zosyn because of possible peritonitis, with the development of leukocytosis and bandemia in the setting of ongoing hypotension, for which she is on Levophed. Her renal function has again deteriorated, possibly secondary to sepsis. The pelvic abscess secondary to MSSA has improved, though it persists, with minimal drainage from the catheter of some concern, and this has been reviewed with IR. Her right upper extremity inflammation has improved. Her sacral decubitus is necrotic but does not appear to be a source of infection. Suggestion: 1. Await surgical follow-up regarding need for possible exploration 2. Can pursue aspiration of the ascites (as discussed with Surgery and IR) 3. Further management of her sacral decubitus per Surgery 4. Continue Zosyn
--- NOTE | 2016-08-11 11:05 | PN- CRCU ---
Subjective HPI/Critical Care Issues: pt seen and examined transferred to ICU over weekend has proline sig pain awaiting IR/Surgical plan for ascites on Zosyn on abx still with significant pain cvp pending Objective Current Medications: Current Medications Sig/Shahla Start time Last Medication Dose Route Stop Time Status Admin Acetaminophen 1,000 MG .STK-MED ONE 08/10 1855 DC IV 08/10 1856 Acetaminophen 1,000 MG Q6P PRN 08/07 1630 AC 08/10 N/A 1 UNIT IV 1859 Acetaminophen 650 MG Q4 HRS NEEDED PRN 07/31 0800 DC 08/11 PO 0558 Albuterol Sulfate 3 ML BID 08/05 2200 AC 08/11 INH 1048 Albuterol Sulfate 2 PUF Q4P PRN 07/30 2200 AC 08/07 INH 0914 Collagenase 1 DEMETRA DAILY 08/04 1000 AC 08/06 TOP 1229 Diclofenac Sodium 1 DEMETRA TID PRN 07/30 1145 AC 08/05 TOP 2142 Diphenhydramine HCl 50 MG Q6P PRN 08/07 1630 AC 08/11 IV 0807 Docusate Sodium 100 MG DAILY 07/31 1000 DC 08/09 PO 1821 Enoxaparin Sodium 40 MG DAILY 08/08 1000 AC 08/11 SC 1028 Escitalopram Oxalate 10 MG 0800 08/09 0800 DC PO Haloperidol 2 MG Q8P PRN 08/07 1830 DC 08/09 PO 1821 Hydromorphone HCl 0.8 MG ONCE ONE 08/11 1045 DC 08/11 IV 08/11 1046 1043 Hydromorphone HCl 0.2 MG ONCE ONE 08/11 0930 DC 08/11 IV 08/11 0931 1041 Hydromorphone HCl 0.2 MG ONCE ONE 08/10 1615 DC 08/10 IV 08/10 1616 1611 Insulin Aspart 0 TIDAC/HS 08/01 0800 DC 08/10 SC 0830 Insulin Human Regular 0 Q6 08/10 1800 AC 08/11 SC 0601 Lidocaine 1 PAT DAILY 07/28 1800 AC 07/28 EXT 2004 Miconazole Nitrate 1 DEMETRA AT BEDTIME 07/29 0130 AC 08/06 VAG 2210 Non-Formulary 0 SEE ADMIN CRITERIA 08/10 1245 CAN Medication ANY Norepinephrine 4 MG Q5H 08/11 0015 AC 08/11 Sodium Chloride 250 ML IV 0758 Norepinephrine 4 MG Q5H 08/10 1700 DC 08/10 Dextrose/Water 250 ML IV 2139 Norepinephrine 4 MG Q24H 08/10 1345 DC 08/10 Dextrose/Water 250 ML IV 1000 Norepinephrine 4 MG Q24H 08/10 0845 DC Dextrose/Water 250 ML IV Oxacillin Sodium 2,000 MG Q4 08/03 1400 DC 08/10 Sodium Chloride 100 ML IV 0956 Piperacillin Sod/ 4.5 GM Q6H 08/10 2130 AC 08/11 Tazobactam Sod IV 1015 Sodium Chloride 100 ML Piperacillin Sod/ 4.5 GM Q6H 08/10 1400 DC 08/10 Tazobactam Sod IV 1520 Sodium Chloride 50 ML Pregabalin 150 MG BID 07/28 2200 DC 08/08 PO 0913 Propofol 1,000 MG Q24H 08/10 1300 CAN N/A 100 ML IV Senna/Docusate Sodium 2 TAB DAILY 07/31 1000 DC 08/09 PO 1821 Simethicone 80 MG Q6P PRN 08/03 0830 DC 08/09 PO 1821 Sodium Bicarbonate 50 MEQ Q20H 08/11 0930 AC Dextrose/Sodium 1,000 ML IV 08/12 0529 Chloride Sodium Bicarbonate 1,300 MG TID 08/05 1059 DC 08/08 PO 0913 Sodium Chloride 1,000 ML Q10H 08/11 1015 AC 08/11 IV 1028 Sodium Chloride 500 ML BOLUS ONE 08/10 1745 DC 08/10 IV 08/10 1844 1742 Sodium Chloride 500 ML BOLUS ONE 08/10 1630 DC 08/10 IV 08/10 1729 1655 Vital Signs & I&O Last 24 Hrs of Vitals and I&O: Vital Signs Date Time Temp Pulse Resp B/P Pulse O2 O2 Flow FiO2 Ox Delivery Rate 08/11 0557 112 16 96/48 08/11 0400 95 Nasal 5.0L Cannula 08/11 0041 114 16 90/50 08/11 0000 95 Nasal 5.0L Cannula 08/11 0000 96.6 114 18 90/50 95 Nasal 5.0L Cannula 08/10 2139 113 91/49 08/10 2000 93 Nasal 5.0L Cannula 08/10 1955 94 Nasal 4.0L Cannula 08/10 174 114 96/43 08/10 1600 Nasal 5.0L Cannula 08/10 1600 97.3 114 20 136/47 94 Nasal 5.0L Cannula 08/10 1200 Nasal 5.0L Cannula Intake & Output 08/11 1600 08/11 0800 08/11 0000 Intake Total 528 1754 Output Total 1045 1040 Balance -517 714 Intake, IV 528 1744 Intake, Oral 0 Intake, Other 10 Number 0 Bowel Movements Output, 10 Drainage Output, 1000 1000 Gastric Drainage Output, Other 10 Output, Urine 35 30 Exam Other Physical Findings: gen awake and alert heent proline cvs s1, s2 lungs ctab anteriorly abd obese ext without edema Results Last 24 Hrs of Lab Results: Laboratory Tests 08/11/16 0320: Lactic Acid 2.7 H 08/11/16 0320: Anion Gap 10, Estimated GFR 23 L, Glucose 188 H, Calcium 8.6, Phosphorus 8.5 H, Magnesium 2.0, Total Bilirubin 0.2, AST 28, ALT 45, Albumin 2.0 L, CBC w Diff MAN DIFF ORDERED, RBC 3.96 L, MCV 81.9, MCH 26.3 L, RDW 18.4 H, MPV 7.6, Segmented Neutrophils 79 H, Band Neutrophils 6 H, Lymphocytes 13 L, Eosinophils 1, Metamyelocytes 1, Platelet Estimate ADEQUATE, Polychromasia 1+, Hypochromic-Microcytic 1+, Poikilocytosis 2+, Anisocytosis 1+, Microcytic Cells 1+, Ovalocytes 1+, Stomatocytes 1+, PUBS MCHC 32.1 L, Fld Total RBCs Counted 100 08/11/16 0000: Lactic Acid 2.5 H 08/10/169: Lactic Acid Cancelled 08/10/168: Anion Gap 14, Estimated GFR 31 L, Glucose 210 H, Lactic Acid 3.4 H, Calcium 8.3 L, Phosphorus 8.1 H, Magnesium 2.0, Total Bilirubin 0.4, AST 31, ALT 44, Albumin 2.0 L, CBC w Diff MAN DIFF ORDERED, RBC 4.00 L, MCV 82.0, MCH 26.2 L, RDW 19.1 H, MPV 7.9, Gran % 96.4 H, Lymphocytes % 2.8 L, Monocytes % 0.4 L, Eosinophils % 0.4, Basophils % 0 L, Absolute Granulocytes 28.7 H, Segmented Neutrophils 82 H, Band Neutrophils 14 H, Absolute Lymphocytes 0.8 L, Lymphocytes 2 L, Monocytes 2, Absolute Monocytes 0.1 L, Absolute Eosinophils 0.1, Absolute Basophils 0, Hypochromic-Microcytic 1+, Poikilocytosis 1+, Stomatocytes 1+, PUBS MCHC 32.0 L Impression/Plan Impression/Plan Impression/Plan: Impression 40 year old woman - hx of multiple collections/pus, MSSA - loculated right pleural effusion chronic - hyponatremia - [place] Plan - zosyn, ID following - nephrology following - pain control - hemodynamic monitoring - levophed, check CVP, MAP goal >65 - f/u surgical/ID recommendations - monitor mag, phos, k and replete as needed - finger stick monitoring - DVT prophylaxis TTS 35 min
[2016-08-11 12:00] VITALS: BP 86/58
--- NOTE | 2016-08-11 12:18 | PN- Nephrology ---
Assessment/Plan Assessment: Acute kidney injury: This current episode of acute kidney injury is occurring in the setting of severe hypotension and septic shock. I suspect she is along the spectrum between prerenal azotemia and ischemic ATN. From a volume standpoint I suspect she is total body volume overloaded given the ascites and anasarca, however I suspect she is intravascular depleted given the significant volume losses from her NG tube, hemoconcentration, and ongoing severe hypotension despite pressor support. Would bolus with 500 mL of normal saline to try to help improve her blood pressure and pressor requirement, and then change continuous fluids to isotonic fluids at a higher rate of 125 cc/hr. medication should be dosed for an estimated GFR of less than 15 mL/min, given the severe renal failure with rising BUN and creatinine, and oliguria. Hydronephrosis is been ruled out on CAT scan. I do not have suspicion for other forms of renal disease such as glomerulonephritis or acute interstitial nephritis. Massive anasarca/edema: Diuretic should be held until hemodynamics improve Metabolic acidosis: I suspect this is secondary to renal failure & lactic acidosis. This is a mixed gap/non-gap acidosis. 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 Suggestion: Normal saline 500 mL bolus now D5 half normal saline +75 and the meq per liter of sodium bicarbonate at 125 mL per hour Would change Lovenox to heparin given renal failure Would recommend dosing medications for an EGFR of less than 15 mL/min, and thus would lower Zosyn to 2.25 g every 6 hours We will follow closely with you Subjective Subjective: I was asked to reevaluate the patient for worsening acute renal failure Her creatinine had improved to 1.1 however his increasing acutely now to 2.3 with oliguria She was transferred back to the ICU yesterday with severe hypotension with a systolic blood pressure of 60, as well as tachycardia and leukocytosis CAT scan revealed no hydronephrosis however did reveal pneumatosis intestinalis in the gastric wall She was started on levo fed and is currently hypotensive the blood pressure in the 80s She has a large volume of NG aspirate, and was net -2 L yesterday despite being oliguric due to the high volume of gastric losses Review of Systems: She reports pain in her abdomen Denies shortness of breath She does have edema Objective Vital Signs and I&Os Vital Signs Date Time Temp Pulse Resp B/P Pulse O2 O2 Flow FiO2 Ox Delivery Rate 08/11 1131 Nasal 5.0L Cannula 08/11 1127 Nasal 2.0L Cannula 08/11 1107 99 Nasal 4.0L Cannula 08/11 0557 112 16 96/48 08/11 0400 95 Nasal 5.0L Cannula 08/11 0041 114 16 90/50 08/11 0000 95 Nasal 5.0L Cannula 08/11 0000 96.6 114 18 90/50 95 Nasal 5.0L Cannula 08/10 2139 113 91/49 08/10 2000 93 Nasal 5.0L Cannula 08/10 1955 94 Nasal 4.0L Cannula 08/10 1742 114 96/43 08/10 1600 Nasal 5.0L Cannula 08/10 1600 97.3 114 20 136/47 94 Nasal 5.0L Cannula Intake & Output 08/11 1600 08/11 0400 08/10 1600 08/10 0400 08/09 1600 08/09 0400 Intake Total 528 1754 584 416 0434 250 Output Total 1045 1040 2030 401 765 Balance -517 714 -1197 -151 975 250 Intake, IV 528 1744 583 150 600 150 Intake, Oral 0 069 611 3406 100 Intake, Other 10 Number 0 0 Bowel Movements Output, 10 10 15 Drainage Output, 1000 1000 2000 Gastric Drainage Output, Other 10 Output, Stool 1 Output, Urine 35 30 20 400 750 Physical Exam: General: NAD, A+O x3. HEENT: mucosa dry Neck: negative for EBONY, JVD CV: tachycardic, no murmers chest: +tunnelled central line Pulm: CTAB, no rales Abd: +diffusely tender with guarding +percutaneous drain Lower Ext: 2+ edema back: +sacral edema Upper Ext: no AVFs or AVGs Neuro: neg tremor, asterixis Skin: +RUE erythema : +yao catheter Current Medications: Current Medications Sig/Shahla Start time Last Medication Dose Route Stop Time Status Admin Acetaminophen 1,000 MG .STK-MED ONE 08/10 1855 DC IV 08/10 185 Acetaminophen 1,000 MG Q6P PRN 08/07 1630 AC 08/10 N/A 1 UNIT IV 1859 Acetaminophen 650 MG Q4 HRS NEEDED PRN 07/31 0800 DC 08/11 PO 0558 Albuterol Sulfate 3 ML BID 08/05 2200 AC 08/11 INH 1048 Albuterol Sulfate 2 PUF Q4P PRN 07/30 2200 AC 08/07 INH 0914 Collagenase 1 DEMETRA DAILY 08/04 1000 AC 08/06 TOP 1229 Diclofenac Sodium 1 DEMETRA TID PRN 07/30 1145 AC 08/05 TOP 2142 Diphenhydramine HCl 50 MG Q6P PRN 08/07 1630 AC 08/11 IV 0807 Docusate Sodium 100 MG DAILY 07/31 1000 DC 08/09 PO 1821 Enoxaparin Sodium 40 MG DAILY 08/08 1000 AC 08/11 SC 1028 Escitalopram Oxalate 10 MG 0800 08/09 0800 DC PO Haloperidol 2 MG Q8P PRN 08/07 1830 DC 08/09 PO 1821 Hydromorphone HCl 0.8 MG ONCE ONE 08/11 1045 DC 08/11 IV 08/11 1046 1043 Hydromorphone HCl 0.2 MG ONCE ONE 08/11 0930 DC 08/11 IV 08/11 0931 1041 Hydromorphone HCl 0.2 MG ONCE ONE 08/10 1615 DC 08/10 IV 08/10 1616 1611 Insulin Aspart 0 TIDAC/HS 08/01 0800 DC 08/10 SC 0830 Insulin Human Regular 0 Q6 08/10 1800 AC 08/11 SC 0601 Lidocaine 1 PAT DAILY 07/28 1800 AC 07/28 EXT 2004 Miconazole Nitrate 1 DEMETRA AT BEDTIME 07/29 0130 AC 08/06 VAG 2210 Non-Formulary 0 SEE ADMIN CRITERIA 08/10 1245 CAN Medication ANY Norepinephrine 4 MG Q5H 08/11 0015 AC 08/11 Sodium Chloride 250 ML IV 0758 Norepinephrine 4 MG Q5H 08/10 1700 DC 08/10 Dextrose/Water 250 ML IV 2139 Norepinephrine 4 MG Q24H 08/10 1345 DC 08/10 Dextrose/Water 250 ML IV 1000 Norepinephrine 4 MG Q24H 08/10 0845 DC Dextrose/Water 250 ML IV Oxacillin Sodium 2,000 MG Q4 08/03 1400 DC 08/10 Sodium Chloride 100 ML IV 0956 Piperacillin Sod/ 4.5 GM Q6H 08/10 2130 AC 08/11 Tazobactam Sod IV 1015 Sodium Chloride 100 ML Piperacillin Sod/ 4.5 GM Q6H 08/10 1400 DC 08/10 Tazobactam Sod IV 1520 Sodium Chloride 50 ML Pregabalin 150 MG BID 07/28 2200 DC 08/08 PO 0913 Propofol 1,000 MG Q24H 08/10 1300 CAN N/A 100 ML IV Senna/Docusate Sodium 2 TAB DAILY 07/31 1000 DC 08/09 PO 1821 Simethicone 80 MG Q6P PRN 08/03 0830 DC 08/09 PO 1821 Sodium Bicarbonate 75 MEQ Q8H 08/11 1215 AC Dextrose/Sodium 1,000 ML IV Chloride Sodium Bicarbonate 50 MEQ Q20H 08/11 0930 DC Dextrose/Sodium 1,000 ML IV 08/12 0529 Chloride Sodium Bicarbonate 1,300 MG TID 08/05 1059 DC 08/08 PO 0913 Sodium Chloride 500 ML BOLUS ONE 08/11 1215 AC IV 08/11 1314 Sodium Chloride 1,000 ML Q10H 08/11 1015 AC 08/11 IV 1028 Sodium Chloride 500 ML BOLUS ONE 08/10 1745 DC 08/10 IV 08/10 1844 1742 Sodium Chloride 500 ML BOLUS ONE 08/10 1630 DC 08/10 IV 08/10 1729 1655 Results Pertinent Lab Results: Laboratory Tests 08/11 08/11 08/11 0320 0320 0000 Chemistry Sodium (137 - 145 mmol/L) 128 L Potassium (3.5 - 5.1 mmol/L) 5.0 Chloride (98 - 107 mmol/L) 100 Carbon Dioxide (22 - 30 mmol/L) 17 L Anion Gap (5 - 16) 10 BUN (7 - 17 mg/dL) 56 H Creatinine (0.5 - 1.0 mg/dL) 2.3 H Estimated GFR (>60 ml/min) 23 L Glucose (65 - 99 mg/dL) 188 H Lactic Acid (0.7 - 2.1 mmol/L) 2.7 H 2.5 H Calcium (8.4 - 10.2 mg/dL) 8.6 Phosphorus (2.5 - 4.5 mg/dL) 8.5 H Magnesium (1.6 - 2.3 mg/dL) 2.0 Total Bilirubin (0.2 - 1.3 mg/dL) 0.2 AST (14 - 36 U/L) 28 ALT (9 - 52 U/L) 45 Albumin (3.5 - 5.0 g/dL) 2.0 L Hematology CBC w Diff MAN DIFF ORDERED WBC (4.8 - 10.8 /CUMM) 23.0 H RBC (4.20 - 5.40 /CUMM) 3.96 L Hgb (12.0 - 16.0 G/DL) 10.4 L Hct (37 - 47 %) 32.4 L MCV (81.0 - 99.0 FL) 81.9 MCH (27.0 - 31.0 PG) 26.3 L RDW (11.5 - 14.5 %) 18.4 H Plt Count (130 - 400 /CUMM) 294 MPV (7.4 - 10.4 FL) 7.6 Segmented Neutrophils (42.2 - 75.2 %) 79 H Band Neutrophils (0.0 - 5.0 %) 6 H Lymphocytes (20.5 - 51.1 %) 13 L Eosinophils (0 - 5.0 %) 1 Metamyelocytes (0.0 - 1.0 %) 1 Platelet Estimate (ADEQUATE) ADEQUATE Polychromasia 1+ Hypochromic-Microcytic 1+ Poikilocytosis 2+ Anisocytosis 1+ Microcytic Cells 1+ Ovalocytes 1+ Stomatocytes 1+ PUBS MCHC (33.0 - 37.0 G/DL) 32.1 L Other Body Source Fld Total RBCs Counted (%) 100 08/10 08/10 08/10 2159 1938 0810 Chemistry Sodium (137 - 145 mmol/L) 132 L Potassium (3.5 - 5.1 mmol/L) 5.2 H Chloride (98 - 107 mmol/L) 100 Carbon Dioxide (22 - 30 mmol/L) 18 L Anion Gap (5 - 16) 14 BUN (7 - 17 mg/dL) 54 H Creatinine (0.5 - 1.0 mg/dL) 1.8 H Estimated GFR (>60 ml/min) 31 L Glucose (65 - 99 mg/dL) 210 H Lactic Acid (0.7 - 2.1 mmol/L) Cancelled 3.4 H 3.1 H Calcium (8.4 - 10.2 mg/dL) 8.3 L Phosphorus (2.5 - 4.5 mg/dL) 8.1 H Magnesium (1.6 - 2.3 mg/dL) 2.0 Total Bilirubin (0.2 - 1.3 mg/dL) 0.4 AST (14 - 36 U/L) 31 ALT (9 - 52 U/L) 44 Troponin I (< 0.11 ng/ml) < 0.01 Albumin (3.5 - 5.0 g/dL) 2.0 L Hematology CBC w Diff MAN DIFF ORDERED WBC (4.8 - 10.8 /CUMM) 29.8 H RBC (4.20 - 5.40 /CUMM) 4.00 L Hgb (12.0 - 16.0 G/DL) 10.5 L Hct (37 - 47 %) 32.8 L MCV (81.0 - 99.0 FL) 82.0 MCH (27.0 - 31.0 PG) 26.2 L RDW (11.5 - 14.5 %) 19.1 H Plt Count (130 - 400 /CUMM) 319 MPV (7.4 - 10.4 FL) 7.9 Gran % (42.2 - 75.2 %) 96.4 H Lymphocytes % (20.5 - 51.1 %) 2.8 L Monocytes % (1.7 - 9.3 %) 0.4 L Eosinophils % (0 - 5 %) 0.4 Basophils % (0.0 - 2.0 %) 0 L Absolute Granulocytes (1.4 - 6.5 /CUMM) 28.7 H Segmented Neutrophils (42.2 - 75.2 %) 82 H Band Neutrophils (0.0 - 5.0 %) 14 H Absolute Lymphocytes (1.2 - 3.4 /CUMM) 0.8 L Lymphocytes (20.5 - 51.1 %) 2 L Monocytes (1.7 - 9.3 %) 2 Absolute Monocytes (0.10 - 0.60 /CUMM) 0.1 L Absolute Eosinophils (0.0 - 0.7 /CUMM) 0.1 Absolute Basophils (0.0 - 0.2 /CUMM) 0 Hypochromic-Microcytic 1+ Poikilocytosis 1+ Stomatocytes 1+ PUBS MCHC (33.0 - 37.0 G/DL) 32.0 L /08/09 0556 0530 Chemistry Sodium (137 - 145 mmol/L) 130 L 135 L Potassium (3.5 - 5.1 mmol/L) 5.0 4.3 Chloride (98 - 107 mmol/L) 101 103 Carbon Dioxide (22 - 30 mmol/L) 20 L 21 L Anion Gap (5 - 16) 10 11 BUN (7 - 17 mg/dL) 51 H 48 H Creatinine (0.5 - 1.0 mg/dL) 1.7 H 1.1 H Estimated GFR (>60 ml/min) 33 L 55 L BUN/Creatinine Ratio (7 - 25 %) 30.0 H 43.6 H Phosphorus (2.5 - 4.5 mg/dL) 5.4 H Magnesium (1.6 - 2.3 mg/dL) 1.8 Cortisol AM Sample (4.46 - 22.7 ug/dL) 42.4 H Hematology CBC w Diff MAN DIFF ORDERED MAN DIFF ORDERED WBC (4.8 - 10.8 /CUMM) 20.9 H 13.9 H RBC (4.20 - 5.40 /CUMM) 4.07 L 3.64 L Hgb (12.0 - 16.0 G/DL) 10.7 L 9.4 L Hct (37 - 47 %) 33.1 L 29.3 L MCV (81.0 - 99.0 FL) 81.5 80.4 L MCH (27.0 - 31.0 PG) 26.3 L 25.7 L RDW (11.5 - 14.5 %) 18.6 H 18.5 H Plt Count (130 - 400 /CUMM) 279 257 MPV (7.4 - 10.4 FL) 7.9 7.8 Gran % (42.2 - 75.2 %) 94.5 H 94.4 H Lymphocytes % (20.5 - 51.1 %) 3.8 L 3.9 L Monocytes % (1.7 - 9.3 %) 0.8 L 0.6 L Eosinophils % (0 - 5 %) 0.6 0.9 Basophils % (0.0 - 2.0 %) 0.3 0.2 Absolute Granulocytes (1.4 - 6.5 /CUMM) 19.8 H 13.1 H Segmented Neutrophils (42.2 - 75.2 %) 63 85 H Band Neutrophils (0.0 - 5.0 %) 25 H Absolute Lymphocytes (1.2 - 3.4 /CUMM) 0.8 L 0.5 L Lymphocytes (20.5 - 51.1 %) 4 L 10 L Monocytes (1.7 - 9.3 %) 4 3 Absolute Monocytes (0.10 - 0.60 /CUMM) 0.2 0.1 L Eosinophils (0 - 5.0 %) 4 Absolute Eosinophils (0.0 - 0.7 /CUMM) 0.1 0.1 Absolute Basophils (0.0 - 0.2 /CUMM) 0.1 0 Platelet Estimate (ADEQUATE) ADEQUATE Polychromasia 1+ 1+ Hypochromic-Microcytic 1+ Poikilocytosis 2+ Anisocytosis 2+ Ovalocytes 1+ Stomatocytes 1+ PUBS MCHC (33.0 - 37.0 G/DL) 32.3 L 32.0 L Other Body Source Fld Total RBCs Counted (%) 100
[2016-08-11 13:40] LABS: ABSOLUTE BASOPHIL COUNT 0 /CUMM (0.0-0.2); ABSOLUTE EOSINOPHIL COUNT 0.4 /CUMM (0.0-0.7); ABSOLUTE GRANULOCYTE CT 17.8 /CUMM (1.4-6.5); ABSOLUTE LYMPH COUNT 0.8 /CUMM (1.2-3.4); ABSOLUTE MONOCYTE COUNT 0.5 /CUMM (0.10-0.60); BASOPHIL % 0 % (0.0-2.0); EOSINOPHIL % 2.3 % (0-5); GRANULOCYTE % 91.1 % (42.2-75.2); HEMATOCRIT 30.8 % (37-47); MEAN CORPUSCULAR HGB 26.3 PG (27.0-31.0); MEAN CORPUSCULAR HGB CONC 31.9 G/DL (33.0-37.0); MEAN CORPUSCULAR VOLUME 82.4 FL (81.0-99.0); MEAN PLATELET VOLUME 7.3 FL (7.4-10.4); PLATELET COUNT 261 /CUMM (130-400); RED BLOOD CELL CT 3.73 /CUMM (4.20-5.40); WHITE BLOOD CELL COUNT 19.6 /CUMM (4.8-10.8)
[2016-08-11 13:49] LABS: PT 11.3 SEC (9.4-12.5); PTT 31 SEC (25-37)
[2016-08-11 16:00] VITALS: BP 90/50
--- NOTE | 2016-08-11 17:25 | ULTRASOUND REPORT ---
EXAMINATION: Ultrasound-guided abdominal drain placement CLINICAL INFORMATION: Ascites. Hypotension. Acute abdomen. COMPARISON: CT abdomen pelvis 08/10/2016 TECHNIQUE: Direct ultrasound guidance using a 5 German Yueh Catheter. FINDINGS: Informed consent was obtained from the patient prior to the procedure. During this process, the procedure alternatives were explained, along with the intended outcome and benefits. The risks of the procedure, as well as the risk of not doing the procedure, was discussed. The patient was given the opportunity to ask questions regarding the procedure and appeared competent to make medical decisions. A signed consent form which documents this discussion was placed in the medical record. Ultrasound evaluation of the abdomen for ascites was performed. Moderate amount of ascites is noted in the left lower quadrant. The site was marked. A timeout procedure was performed. Sedation support was provided by the anesthesia department. Please see their note for details. The area was prepped and draped in usual sterile fashion. Using standard interventional and sterile techniques, lidocaine was used to anesthetize the region. A 5 German Yueh catheter was introduced into the left lower quadrant using standard safety needle technique. Approximately 50 mL of thin cloudy yellowish fluid was aspirated. At the request of the ordering physician, the decision was made to proceed with drain placement. A stiff Amplatz wire was advanced through the Yueh needle and coiled within the left lower quadrant fluid collection. The tract was dilated with 8, 10 and 12 German dilators and a 12 German pigtail drain was placed. The distal pigtail was locked into position. The drainage catheter was secured using a single silk suture and StatLock device. A sterile dressing was placed. The drainage catheter was attached to a bag for drainage via gravity. Fluid sent for requested analysis. The patient tolerated the procedure well. COMPLICATIONS: None. IMPRESSION: Thin, cloudy, yellowish fluid aspirated from left lower quadrant fluid collection. At the request of the ordering physician, a 12 German pigtail drain was placed successfully. No complications.
--- NOTE | 2016-08-11 19:46 | PN- General Surgery ---
Subjective Subjective: Follow-up of hypotension and peritoneal fluid and free air. She remains awake and alert complaining of abdominal pain but not worse, she still thirsty, IV fluids have been resumed including boluses her urine output has increased a little she just had some ascites sampled by interventional radiology and they left a pigtail drain and it looks like cloudy ascites, the NG tube continues to drain not grossly bloody fluid, and there slowly coming down on the leave Levophed rate. Objective Vital Signs and I&Os I reviewed Vital Signs Date Time Temp Pulse Resp B/P Pulse O2 O2 Flow FiO2 Ox Delivery Rate 08/11 1131 Nasal 5.0L Cannula 08/11 1127 Nasal 2.0L Cannula 08/11 1107 99 Nasal 4.0L Cannula 08/11 0557 112 16 96/48 08/11 0400 95 Nasal 5.0L Cannula 08/11 0041 114 16 90/50 08/11 0000 95 Nasal 5.0L Cannula 08/11 0000 96.6 114 18 90/50 95 Nasal 5.0L Cannula 08/10 2139 113 91/49 08/11 1999 93 Nasal 5.0L Cannula 08/10 195 94 Nasal 4.0L Cannula I reviewed Intake & Output 08/11 1600 08/11 0800 08/11 0000 08/10 1600 08/10 0800 08/10 0000 Intake Total 528 1754 283 550 250 Output Total 1045 1040 2030 0 401 Balance -517 714 -1747 550 -151 Intake, IV 528 1744 283 300 150 Intake, Oral 0 250 100 Intake, Other 10 Number 0 Bowel Movements Output, 10 10 0 Drainage Output, 1000 1000 2000 Gastric Drainage Output, Other 10 Output, Stool 1 Output, Urine 35 30 20 400 Physical Exam: Constitutional: no acute distress, conversant Eyes: sclera anicteric ENMT: moist mucous membranes Cardiovascular: S1-S2 no murmurs, no change in peripheral edema Respiratory: Breath sounds bilaterally, normal respiratory effort and no intercostal retractions GI: abdomen soft diffusely uncomfortable no rebound tender at 2 drain sites nondistended Extremities / lymphatics: Same as yesterday limited range of motion same peripheral edema Skin: no jaundice no rashes warm, nondiaphoretic, backside not reexamined today Psychiatric: mood and affect are appropriate and alert and oriented to person place and time Current Medications: I reviewed Current Medications Sig/Shahla Start time Last Medication Dose Route Stop Time Status Admin Acetaminophen 650 MG .STK-MED ONE 08/11 0551 DC PO 08/11 0552 Acetaminophen 1,000 MG Q6P PRN 08/07 1630 AC 08/10 N/A 1 UNIT IV 1859 Acetaminophen 650 MG Q4 HRS NEEDED PRN 07/31 0800 DC 08/11 PO 0558 Albuterol Sulfate 3 ML BID 08/05 2200 AC 08/11 INH 1048 Albuterol Sulfate 2 PUF Q4P PRN 07/30 2200 AC 08/07 INH 0914 Collagenase 1 DEMETRA DAILY 08/04 1000 AC 08/06 TOP 1229 Diclofenac Sodium 1 DEMETRA TID PRN 07/30 1145 AC 08/05 TOP 2142 Diphenhydramine HCl 50 MG .STK-MED ONE 08/11 0750 DC IM 08/11 0751 Diphenhydramine HCl 50 MG Q6P PRN 08/07 1630 AC 08/11 IV 1752 Docusate Sodium 100 MG DAILY 07/31 1000 DC 08/09 PO 1821 Enoxaparin Sodium 40 MG DAILY 08/08 1000 DC 08/11 SC 1028 Escitalopram Oxalate 10 MG 0800 08/09 0800 DC PO Haloperidol 2 MG Q8P PRN 08/07 1830 DC 08/09 PO 1821 Heparin Sodium 5,000 UNIT Q8 08/12 0600 AC (Porcine) SC Hydromorphone HCl 1 MG Q6-PRN PRN 08/11 1530 AC 08/11 IV PUSH 1753 Hydromorphone HCl 0.8 MG ONCE ONE 08/11 1045 DC 08/11 IV 08/11 1046 1043 Hydromorphone HCl 0.2 MG ONCE ONE 08/11 0930 DC 08/11 IV 08/11 0931 1041 Insulin Human Regular 0 Q6 08/10 1800 AC 08/11 SC 1744 Lidocaine 1 PAT DAILY 07/28 1800 AC 07/28 EXT 2004 Miconazole Nitrate 1 DEMETRA AT BEDTIME 07/29 0130 AC 08/06 VAG 2210 Norepinephrine 4 MG Q4H 08/11 1600 AC 08/11 Sodium Chloride 250 ML IV 1543 Norepinephrine 4 MG Q5H 08/11 0015 DC 08/11 Sodium Chloride 250 ML IV 1300 Norepinephrine 4 MG Q5H 08/10 1700 DC 08/10 Dextrose/Water 250 ML IV 2139 Pantoprazole Sodium 40 MG DAILY 08/11 1802 AC IV Piperacillin Sod/ 4.5 GM Q6H 08/11 1600 DC Tazobactam Sod IV Sodium Chloride 100 ML Piperacillin Sod/ 2.25 GM Q6H 08/11 1600 AC 08/11 Tazobactam Sod IV 1543 Sodium Chloride 100 ML Piperacillin Sod/ 4.5 GM Q6H 08/10 2130 DC 08/11 Tazobactam Sod IV 1015 Sodium Chloride 100 ML Pregabalin 150 MG BID 07/28 2200 DC 08/08 PO 0913 Senna/Docusate Sodium 2 TAB DAILY 07/31 1000 DC 08/09 PO 1821 Simethicone 80 MG Q6P PRN 08/03 0830 DC 08/09 PO 1821 Sodium Bicarbonate 75 MEQ Q8H 08/11 1215 AC 08/11 Dextrose/Sodium 1,000 ML IV 1245 Chloride Sodium Bicarbonate 50 MEQ Q20H 08/11 0930 DC Dextrose/Sodium 1,000 ML IV 08/12 0529 Chloride Sodium Bicarbonate 1,300 MG TID 08/05 1059 DC 08/08 PO 0913 Sodium Chloride 500 ML BOLUS ONE 08/11 1715 DC 08/11 IV 08/11 1814 1744 Sodium Chloride 500 ML BOLUS ONE 08/11 1215 DC 08/11 IV 08/11 1314 1215 Sodium Chloride 1,000 ML Q10H 08/11 1015 DC 08/11 IV 1028 Sucralfate 1 GM Q6 08/11 1815 AC PO Results Last 48 Hours of Labs: I reviewed Laboratory Tests 08/11 08/11 08/11 1220 UNK UNK Chemistry Sodium (137 - 145 mmol/L) 132 L Potassium (3.5 - 5.1 mmol/L) 4.9 Chloride (98 - 107 mmol/L) 99 Carbon Dioxide (22 - 30 mmol/L) 20 L Anion Gap (5 - 16) 13 BUN (7 - 17 mg/dL) 59 H Creatinine (0.5 - 1.0 mg/dL) 2.2 H Estimated GFR (>60 ml/min) 25 L Glucose (65 - 99 mg/dL) 149 H Lactic Acid (0.7 - 2.1 mmol/L) 2.2 H Calcium (8.4 - 10.2 mg/dL) 8.3 L Phosphorus (2.5 - 4.5 mg/dL) 8.5 H Magnesium (1.6 - 2.3 mg/dL) 2.0 Total Bilirubin (0.2 - 1.3 mg/dL) 0.2 AST (14 - 36 U/L) 29 ALT (9 - 52 U/L) 45 Albumin (3.5 - 5.0 g/dL) 1.9 L Coagulation PT (9.4 - 12.5 SEC) 11.3 INR (0.90 - 1.19) 1.08 APTT (25 - 37 SEC) 31 Hematology CBC w Diff MAN DIFF ORDERED WBC (4.8 - 10.8 /CUMM) 19.6 H RBC (4.20 - 5.40 /CUMM) 3.73 L Hgb (12.0 - 16.0 G/DL) 9.8 L Hct (37 - 47 %) 30.8 L MCV (81.0 - 99.0 FL) 82.4 MCH (27.0 - 31.0 PG) 26.3 L RDW (11.5 - 14.5 %) 19.0 H Plt Count (130 - 400 /CUMM) 261 MPV (7.4 - 10.4 FL) 7.3 L Gran % (42.2 - 75.2 %) 91.1 H Lymphocytes % (20.5 - 51.1 %) 4.0 L Monocytes % (1.7 - 9.3 %) 2.6 Eosinophils % (0 - 5 %) 2.3 Basophils % (0.0 - 2.0 %) 0 L Absolute Granulocytes (1.4 - 6.5 /CUMM) 17.8 H Segmented Neutrophils (42.2 - 75.2 %) 88 H Band Neutrophils (0.0 - 5.0 %) 6 H Absolute Lymphocytes (1.2 - 3.4 /CUMM) 0.8 L Lymphocytes (20.5 - 51.1 %) 3 L Monocytes (1.7 - 9.3 %) 3 Absolute Monocytes (0.10 - 0.60 /CUMM) 0.5 Absolute Eosinophils (0.0 - 0.7 /CUMM) 0.4 Absolute Basophils (0.0 - 0.2 /CUMM) 0 Platelet Estimate (ADEQUATE) VERIFIED BY SMEAR Anisocytosis 1+ PUBS MCHC (33.0 - 37.0 G/DL) 31.9 L Other Body Source Fluid WBC Pending Fld Total RBCs Counted Pending Fluid Total Protein (g/dL) 2.5 Fluid Albumin (g/dL) 1.2 Fluid LDH (U/L) 69232 Fluid Amylase (U/L) 67 08/11 08/11 08/11 0320 0320 0000 Chemistry Sodium (137 - 145 mmol/L) 128 L Potassium (3.5 - 5.1 mmol/L) 5.0 Chloride (98 - 107 mmol/L) 100 Carbon Dioxide (22 - 30 mmol/L) 17 L Anion Gap (5 - 16) 10 BUN (7 - 17 mg/dL) 56 H Creatinine (0.5 - 1.0 mg/dL) 2.3 H Estimated GFR (>60 ml/min) 23 L Glucose (65 - 99 mg/dL) 188 H Lactic Acid (0.7 - 2.1 mmol/L) 2.7 H 2.5 H Calcium (8.4 - 10.2 mg/dL) 8.6 Phosphorus (2.5 - 4.5 mg/dL) 8.5 H Magnesium (1.6 - 2.3 mg/dL) 2.0 Total Bilirubin (0.2 - 1.3 mg/dL) 0.2 AST (14 - 36 U/L) 28 ALT (9 - 52 U/L) 45 Lactate Dehydrogenase (313 - 618 U/L) 657 H Total Protein (6.3 - 8.2 g/dL) 4.5 L Albumin (3.5 - 5.0 g/dL) 2.0 L Hematology CBC w Diff MAN DIFF ORDERED WBC (4.8 - 10.8 /CUMM) 23.0 H RBC (4.20 - 5.40 /CUMM) 3.96 L Hgb (12.0 - 16.0 G/DL) 10.4 L Hct (37 - 47 %) 32.4 L MCV (81.0 - 99.0 FL) 81.9 MCH (27.0 - 31.0 PG) 26.3 L RDW (11.5 - 14.5 %) 18.4 H Plt Count (130 - 400 /CUMM) 294 MPV (7.4 - 10.4 FL) 7.6 Segmented Neutrophils (42.2 - 75.2 %) 79 H Band Neutrophils (0.0 - 5.0 %) 6 H Lymphocytes (20.5 - 51.1 %) 13 L Eosinophils (0 - 5.0 %) 1 Metamyelocytes (0.0 - 1.0 %) 1 Platelet Estimate (ADEQUATE) ADEQUATE Polychromasia 1+ Hypochromic-Microcytic 1+ Poikilocytosis 2+ Anisocytosis 1+ Microcytic Cells 1+ Ovalocytes 1+ Stomatocytes 1+ PUBS MCHC (33.0 - 37.0 G/DL) 32.1 L Other Body Source Fld Total RBCs Counted (%) 100 08/10 08/10 08/10 2159 1938 0810 Chemistry Sodium (137 - 145 mmol/L) 132 L Potassium (3.5 - 5.1 mmol/L) 5.2 H Chloride (98 - 107 mmol/L) 100 Carbon Dioxide (22 - 30 mmol/L) 18 L Anion Gap (5 - 16) 14 BUN (7 - 17 mg/dL) 54 H Creatinine (0.5 - 1.0 mg/dL) 1.8 H Estimated GFR (>60 ml/min) 31 L Glucose (65 - 99 mg/dL) 210 H Lactic Acid (0.7 - 2.1 mmol/L) Cancelled 3.4 H 3.1 H Calcium (8.4 - 10.2 mg/dL) 8.3 L Phosphorus (2.5 - 4.5 mg/dL) 8.1 H Magnesium (1.6 - 2.3 mg/dL) 2.0 Total Bilirubin (0.2 - 1.3 mg/dL) 0.4 AST (14 - 36 U/L) 31 ALT (9 - 52 U/L) 44 Troponin I (< 0.11 ng/ml) < 0.01 Albumin (3.5 - 5.0 g/dL) 2.0 L Hematology CBC w Diff MAN DIFF ORDERED WBC (4.8 - 10.8 /CUMM) 29.8 H RBC (4.20 - 5.40 /CUMM) 4.00 L Hgb (12.0 - 16.0 G/DL) 10.5 L Hct (37 - 47 %) 32.8 L MCV (81.0 - 99.0 FL) 82.0 MCH (27.0 - 31.0 PG) 26.2 L RDW (11.5 - 14.5 %) 19.1 H Plt Count (130 - 400 /CUMM) 319 MPV (7.4 - 10.4 FL) 7.9 Gran % (42.2 - 75.2 %) 96.4 H Lymphocytes % (20.5 - 51.1 %) 2.8 L Monocytes % (1.7 - 9.3 %) 0.4 L Eosinophils % (0 - 5 %) 0.4 Basophils % (0.0 - 2.0 %) 0 L Absolute Granulocytes (1.4 - 6.5 /CUMM) 28.7 H Segmented Neutrophils (42.2 - 75.2 %) 82 H Band Neutrophils (0.0 - 5.0 %) 14 H Absolute Lymphocytes (1.2 - 3.4 /CUMM) 0.8 L Lymphocytes (20.5 - 51.1 %) 2 L Monocytes (1.7 - 9.3 %) 2 Absolute Monocytes (0.10 - 0.60 /CUMM) 0.1 L Absolute Eosinophils (0.0 - 0.7 /CUMM) 0.1 Absolute Basophils (0.0 - 0.2 /CUMM) 0 Hypochromic-Microcytic 1+ Poikilocytosis 1+ Stomatocytes 1+ PUBS MCHC (33.0 - 37.0 G/DL) 32.0 L / 0556 Chemistry Sodium (137 - 145 mmol/L) 130 L Potassium (3.5 - 5.1 mmol/L) 5.0 Chloride (98 - 107 mmol/L) 101 Carbon Dioxide (22 - 30 mmol/L) 20 L Anion Gap (5 - 16) 10 BUN (7 - 17 mg/dL) 51 H Creatinine (0.5 - 1.0 mg/dL) 1.7 H Estimated GFR (>60 ml/min) 33 L BUN/Creatinine Ratio (7 - 25 %) 30.0 H Cortisol AM Sample (4.46 - 22.7 ug/dL) 42.4 H Hematology CBC w Diff MAN DIFF ORDERED WBC (4.8 - 10.8 /CUMM) 20.9 H RBC (4.20 - 5.40 /CUMM) 4.07 L Hgb (12.0 - 16.0 G/DL) 10.7 L Hct (37 - 47 %) 33.1 L MCV (81.0 - 99.0 FL) 81.5 MCH (27.0 - 31.0 PG) 26.3 L RDW (11.5 - 14.5 %) 18.6 H Plt Count (130 - 400 /CUMM) 279 MPV (7.4 - 10.4 FL) 7.9 Gran % (42.2 - 75.2 %) 94.5 H Lymphocytes % (20.5 - 51.1 %) 3.8 L Monocytes % (1.7 - 9.3 %) 0.8 L Eosinophils % (0 - 5 %) 0.6 Basophils % (0.0 - 2.0 %) 0.3 Absolute Granulocytes (1.4 - 6.5 /CUMM) 19.8 H Segmented Neutrophils (42.2 - 75.2 %) 63 Band Neutrophils (0.0 - 5.0 %) 25 H Absolute Lymphocytes (1.2 - 3.4 /CUMM) 0.8 L Lymphocytes (20.5 - 51.1 %) 4 L Monocytes (1.7 - 9.3 %) 4 Absolute Monocytes (0.10 - 0.60 /CUMM) 0.2 Eosinophils (0 - 5.0 %) 4 Absolute Eosinophils (0.0 - 0.7 /CUMM) 0.1 Absolute Basophils (0.0 - 0.2 /CUMM) 0.1 Polychromasia 1+ Anisocytosis 2+ PUBS MCHC (33.0 - 37.0 G/DL) 32.3 L Assessment/Plan Assessment/Plan Preliminary Gram stain shows mostly gram-positive cocci and rare pleomorphic gram-positive jean paul and rare yeast Impression is peritonitis from infected ascites whether its from seeding from the deep retroperitoneal pelvic abscess related to the pelvic fracture, because the percutaneous drain was transabdominal trajectory versus a gastric or peptic ulcer perforation, as if from a stress ulcer. The radiologist did comment on the CT scans that there may be some pneumatosis in the stomach, nonspecific, the stomach was quite dilated, and she was on diet at the time. I reviewed the last [address] scans on PACS myself again from the of the comparing the scattered little dots of air and the amount of ascites in general are about the same about the same, so there is no large leak of enteric gas, the small foci are clustered near the drain down below but also around the stomach around the spleen the ronal behind the pylorus. She also may have an element of gastroparesis, diabetes, stomach dilation could also be reactive due to the peritonitis, but on the other hand the stomach is very well vascularized, it would be exceedingly unusual to develop an area of ischemia there and then appear as pneumatosis, strange. The Gram stain will be not be finalized soon enough, if she worsens she may need operative exploration. On the other hand consider another study with oral contrast. If we need to take her to the operating room prefer that it be off pressors. Right at this time she is starting to make urine and her blood pressure is improving they are weaning the levophed she remains awake and alert the new drain is draining significant ascites the NG tube is also functioning well I recommend starting a PPI she hadn 't been on it, Carafate, and continue present care otherwise and repeat blood work at midnight including a type and screen if she continues to improve then would likely avoid OR. Problem List: 1. Peritonitis 2. Decubitus ulcer 3. Hypotension 4. Pelvic abscess 5. Oliguria 6. Pubic ramus fracture 7. Abdominal pain 8. Diabetes mellitus Core Measures/Miscellaneous Venous Thromboembolism VTE Risk Factors: Acute medical illness VTE Contraindications: No Contraindications VTE Diagnosis: No VTE Type: NONE VTE Confirmed by (Test): NONE Beta Jimmy Is Beta Jimmy a Home Med? No Antibiotics Is Patient on Antibiotics? No
[2016-08-12] VITALS: BP 100/50
[2016-08-12 06:04] LABS: ABSOLUTE BASOPHIL COUNT 0 /CUMM (0.0-0.2); ABSOLUTE EOSINOPHIL COUNT 0.4 /CUMM (0.0-0.7); ABSOLUTE LYMPH COUNT 0.7 /CUMM (1.2-3.4); ABSOLUTE MONOCYTE COUNT 0.1 /CUMM (0.10-0.60)
[2016-08-12 06:10] LABS: ABSOLUTE GRANULOCYTE CT 7.9 /CUMM (1.4-6.5); BASOPHIL % 0.2 % (0.0-2.0); GRANULOCYTE % 87.7 % (42.2-75.2); HEMATOCRIT 27.3 % (37-47); MEAN CORPUSCULAR HGB 26.2 PG (27.0-31.0); MEAN CORPUSCULAR HGB CONC 31.7 G/DL (33.0-37.0); MEAN CORPUSCULAR VOLUME 82.7 FL (81.0-99.0); MEAN PLATELET VOLUME 7.4 FL (7.4-10.4); PLATELET COUNT 211 /CUMM (130-400); RBC DISTRIBUTION WIDTH 18.4 % (11.5-14.5)
--- NOTE | 2016-08-12 07:59 | PN- Resident CRCU ---
Subjective HPI/CRCU Issues: Left pelvis drained cloudy yellow (most likely [place]itic) [place] [address] , many gram positive cocci, few gram positive rods, and budding yeast. It has drained 1800 ml fluid since it has been inserted (less than 24 hours), while the right only drained 10 ml over the past 24 hrs. NG tube put out 2400 ml of brown fluid (similar to the fluid in the pelvis drain now) over the past 24 hours. WBC down from 19 6 to 9, Band 6 --> 5. Hb 9.8 to 8.6, na 132 to 134, k 4.9 to 4.1, LA 2.7, alb 1.8L, bun/cr from 59/2.2 to 58/2.1 Will get gastrograffin upper GI studies to evaluate for microperforation today, and based on that will decide if pt needs to have laparotomy. She is feeling improved although her abdomen continues to be sore and tender, especially on the left side. She is still on levophed 5mcg/min. Her urine output has improved, up to 110ml/hr, although she only pt our 400 ml over the past 24 hours. She is feeling thirsty, and would like water with the ice chips. 24 Hour Events: Max temp99.1 HR 96-122 RR 12-20 Systolic bp 75-120 Diastolic bp 43-60 CVP 1--> 9 Blood sugar 177, 206 3L NC Objective Vital Signs & I&O Last 8 Hrs of Vitals and I&O: Intake & Output 08/12 1600 08/12 0800 08/12 0000 Intake Total 1258 1982 Output Total 1225 1610 Balance 33 372 Intake, IV 1058 1782 Intake, Oral 200 200 Number 0 Bowel Movements Output, 500 400 Drainage Output, 300 900 Gastric Drainage Output, Stool 0 Output, Urine 425 310 Laboratory Tests 08/12 08/12 0530 0000 Chemistry Sodium (137 - 145 mmol/L) 134 L Potassium (3.5 - 5.1 mmol/L) 4.1 Chloride (98 - 107 mmol/L) 103 Carbon Dioxide (22 - 30 mmol/L) 20 L Anion Gap (5 - 16) 11 BUN (7 - 17 mg/dL) 58 H Creatinine (0.5 - 1.0 mg/dL) 2.1 H Estimated GFR (>60 ml/min) 26 L Glucose (65 - 99 mg/dL) 173 H Lactic Acid (0.7 - 2.1 mmol/L) 2.7 H Calcium (8.4 - 10.2 mg/dL) 7.7 L Phosphorus (2.5 - 4.5 mg/dL) 7.8 H Magnesium (1.6 - 2.3 mg/dL) 2.0 Total Bilirubin (0.2 - 1.3 mg/dL) 0.2 AST (14 - 36 U/L) 22 ALT (9 - 52 U/L) 36 Albumin (3.5 - 5.0 g/dL) 1.8 L Hematology CBC w Diff MAN DIFF ORDERED Cancelled WBC (4.8 - 10.8 /CUMM) 9.0 Cancelled RBC (4.20 - 5.40 /CUMM) 3.30 L Cancelled Hgb (12.0 - 16.0 G/DL) 8.6 L Cancelled Hct (37 - 47 %) 27.3 L Cancelled MCV (81.0 - 99.0 FL) 82.7 Cancelled MCH (27.0 - 31.0 PG) 26.2 L Cancelled RDW (11.5 - 14.5 %) 18.4 H Cancelled Plt Count (130 - 400 /CUMM) 211 Cancelled MPV (7.4 - 10.4 FL) 7.4 Cancelled Gran % (42.2 - 75.2 %) 87.7 H Lymphocytes % (20.5 - 51.1 %) 7.5 L Monocytes % (1.7 - 9.3 %) 0.6 L Eosinophils % (0 - 5 %) 4.0 Basophils % (0.0 - 2.0 %) 0.2 Absolute Granulocytes (1.4 - 6.5 /CUMM) 7.9 H Segmented Neutrophils (42.2 - 75.2 %) 76 H Band Neutrophils (0.0 - 5.0 %) 5 Absolute Lymphocytes (1.2 - 3.4 /CUMM) 0.7 L Lymphocytes (20.5 - 51.1 %) 10 L Monocytes (1.7 - 9.3 %) 1 L Absolute Monocytes (0.10 - 0.60 /CUMM) 0.1 L Eosinophils (0 - 5.0 %) 6 H Absolute Eosinophils (0.0 - 0.7 /CUMM) 0.4 Basophils (0.0 - 2.0 %) 1 Absolute Basophils (0.0 - 0.2 /CUMM) 0 Metamyelocytes (0.0 - 1.0 %) 1 Platelet Estimate (ADEQUATE) ADEQUATE Hypochromic-Microcytic 2+ Anisocytosis 1+ PUBS MCHC (33.0 - 37.0 G/DL) 31.7 L Cancelled 08/11 08/11 1220 UNK Chemistry Sodium (137 - 145 mmol/L) 132 L Potassium (3.5 - 5.1 mmol/L) 4.9 Chloride (98 - 107 mmol/L) 99 Carbon Dioxide (22 - 30 mmol/L) 20 L Anion Gap (5 - 16) 13 BUN (7 - 17 mg/dL) 59 H Creatinine (0.5 - 1.0 mg/dL) 2.2 H Estimated GFR (>60 ml/min) 25 L Glucose (65 - 99 mg/dL) 149 H Lactic Acid (0.7 - 2.1 mmol/L) 2.2 H Calcium (8.4 - 10.2 mg/dL) 8.3 L Phosphorus (2.5 - 4.5 mg/dL) 8.5 H Magnesium (1.6 - 2.3 mg/dL) 2.0 Total Bilirubin (0.2 - 1.3 mg/dL) 0.2 AST (14 - 36 U/L) 29 ALT (9 - 52 U/L) 45 Albumin (3.5 - 5.0 g/dL) 1.9 L Coagulation PT (9.4 - 12.5 SEC) 11.3 INR (0.90 - 1.19) 1.08 APTT (25 - 37 SEC) 31 Hematology CBC w Diff MAN DIFF ORDERED WBC (4.8 - 10.8 /CUMM) 19.6 H RBC (4.20 - 5.40 /CUMM) 3.73 L Hgb (12.0 - 16.0 G/DL) 9.8 L Hct (37 - 47 %) 30.8 L MCV (81.0 - 99.0 FL) 82.4 MCH (27.0 - 31.0 PG) 26.3 L RDW (11.5 - 14.5 %) 19.0 H Plt Count (130 - 400 /CUMM) 261 MPV (7.4 - 10.4 FL) 7.3 L Gran % (42.2 - 75.2 %) 91.1 H Lymphocytes % (20.5 - 51.1 %) 4.0 L Monocytes % (1.7 - 9.3 %) 2.6 Eosinophils % (0 - 5 %) 2.3 Basophils % (0.0 - 2.0 %) 0 L Absolute Granulocytes (1.4 - 6.5 /CUMM) 17.8 H Segmented Neutrophils (42.2 - 75.2 %) 88 H Band Neutrophils (0.0 - 5.0 %) 6 H Absolute Lymphocytes (1.2 - 3.4 /CUMM) 0.8 L Lymphocytes (20.5 - 51.1 %) 3 L Monocytes (1.7 - 9.3 %) 3 Absolute Monocytes (0.10 - 0.60 /CUMM) 0.5 Absolute Eosinophils (0.0 - 0.7 /CUMM) 0.4 Absolute Basophils (0.0 - 0.2 /CUMM) 0 Platelet Estimate (ADEQUATE) VERIFIED BY SMEAR Anisocytosis 1+ PUBS MCHC (33.0 - 37.0 G/DL) 31.9 L Other Body Source Fluid WBC (0 - 5 /CUMM) 72943 H Fld Total RBCs Counted (0 /CUMM) 2025 H 08/11 UNK Chemistry Sodium Cancelled Potassium Cancelled Chloride Cancelled Carbon Dioxide Cancelled Anion Gap Cancelled BUN Cancelled Creatinine Cancelled Glucose Cancelled Calcium Cancelled Phosphorus Cancelled Magnesium Cancelled Total Bilirubin Cancelled AST Cancelled ALT Cancelled Albumin Cancelled Hematology Lymphocytes (%) Other Body Source Fluid Total Protein (g/dL) 2.5 Fluid Albumin (g/dL) 1.2 Fluid LDH (U/L) 83269 Fluid Amylase (U/L) 67 Microbiology Date/Time Procedure - Status Source Growth 08/11 UNK Body Fluid Culture - RES BODY FLUID 08/11 UNK Gram Stain - RES BODY FLUID Vital Signs Date Time Temp Pulse Resp B/P Pulse O2 O2 Flow FiO2 Ox Delivery Rate 08/12 0521 102 97/50 08/12 0334 98 Nasal 3.0L Cannula 08/12 0038 111 99/47 08/12 0000 97.1 112 20 100/50 98 Nasal 3.0L Cannula 08/12 0000 98 Nasal 3.0L Cannula 08/11 2140 118 101/60 08/11 2100 96 Nasal 3.0L Cannula 08/11 2000 98 Nasal 3.0L Cannula 08/11 1600 99 Nasal 3.0L Cannula 08/11 1600 98.2 115 14 90/50 99 Nasal 3.0L Cannula 08/11 1200 97.5 116 16 86/58 98 Nasal 3.0L Cannula 08/11 1131 Nasal 5.0L Cannula 08/11 1127 Nasal 2.0L Cannula 08/11 1107 99 Nasal 4.0L Cannula Exam General Appearance: alert, awake, mild distress Respiratory: normal breath sounds Cardiovascular: regular rate/rhythm, tachycardia Gastrointestinal: no bowel sound Current Medications: Current Medications Sig/Shahla Start time Last Medication Dose Route Stop Time Status Admin Acetaminophen 1,000 MG ONCE ONE 08/11 2215 DC N/A 1 UNIT IV 08/11 2229 Acetaminophen 1,000 MG Q6P PRN 08/07 1630 AC 08/11 N/A 1 UNIT IV 2237 Albuterol Sulfate 3 ML BID 08/05 2200 AC 08/11 INH 2057 Albuterol Sulfate 2 PUF Q4P PRN 07/30 2200 AC 08/07 INH 0914 Benzocaine/Menthol 1 RAYMUNDO Q2P PRN 08/11 2245 AC PO Collagenase 1 DEMETRA DAILY 08/04 1000 AC 08/06 TOP 1229 Diclofenac Sodium 1 DEMETRA TID PRN 07/30 1145 AC 08/05 TOP 2142 Diphenhydramine HCl 50 MG ONCE ONE 08/11 2230 DC 08/11 IV 08/11 2231 2238 Diphenhydramine HCl 50 MG Q6P PRN 08/07 1630 AC 08/12 IV 0644 Enoxaparin Sodium 40 MG DAILY 08/08 1000 DC 08/11 SC 1028 Fentanyl Citrate 100 MCG .STK-MED ONE 08/11 1339 DC IM 08/11 1340 Heparin Sodium 5,000 UNIT Q8 08/12 0600 AC 08/12 (Porcine) SC 0616 Hydromorphone HCl 0.6 MG ONCE ONE 08/12 1030 UNVr IV 08/12 1031 Hydromorphone HCl 1 MG Q6-PRN PRN 08/11 1530 AC 08/12 IV PUSH 0616 Hydromorphone HCl 0.8 MG ONCE ONE 08/11 1045 DC 08/11 IV 08/11 1046 1043 Hydromorphone HCl 0.2 MG ONCE ONE 08/11 0930 DC 08/11 IV 08/11 0931 1041 Insulin Human Regular 0 Q6 08/10 1800 AC 08/12 SC 0643 Ketamine HCl 50 MG .STK-MED ONE 08/11 1340 DC IM 08/11 1341 Lidocaine 1 PAT DAILY 07/28 1800 AC 07/28 EXT 2004 Miconazole Nitrate 1 DEMETRA AT BEDTIME 07/29 0130 AC 08/11 VAG 2236 Midazolam HCl 2 MG .STK-MED ONE 08/11 1340 DC IM 08/11 1341 Norepinephrine 4 MG Q8H 08/12 0500 AC Sodium Chloride 250 ML IV Norepinephrine 4 MG Q4H 08/11 1600 DC 08/12 Sodium Chloride 250 ML IV 0038 Norepinephrine 4 MG Q5H 08/11 0015 DC 08/11 Sodium Chloride 250 ML IV 1300 Nystatin 1 DEMETRA TID PRN 08/12 0730 AC TOP Pantoprazole Sodium 40 MG DAILY 08/11 1802 AC 08/12 IV 0036 Piperacillin Sod/ 4.5 GM Q6H 08/11 1600 DC Tazobactam Sod IV Sodium Chloride 100 ML Piperacillin Sod/ 2.25 GM Q6H 08/11 1600 AC 08/12 Tazobactam Sod IV 0520 Sodium Chloride 100 ML Piperacillin Sod/ 4.5 GM Q6H 08/10 2130 DC 08/11 Tazobactam Sod IV 1015 Sodium Chloride 100 ML Sodium Bicarbonate 75 MEQ Q8H 08/11 1215 AC 08/12 Dextrose/Sodium 1,000 ML IV 0015 Chloride Sodium Bicarbonate 50 MEQ .STK-MED ONE 08/11 1202 DC IV 08/11 1203 Sodium Bicarbonate 50 MEQ Q20H 08/11 0930 DC Dextrose/Sodium 1,000 ML IV 08/12 0529 Chloride Sodium Chloride 500 ML BOLUS ONE 08/11 2200 DC 08/11 IV 08/11 2259 2237 Sodium Chloride 500 ML BOLUS ONE 08/11 1715 DC 08/11 IV 08/11 1814 1744 Sodium Chloride 500 ML BOLUS ONE 08/11 1215 DC 08/11 IV 08/11 1314 1215 Sodium Chloride 1,000 ML Q10H 08/11 1015 DC 08/11 IV 1028 Sucralfate 1 GM Q6 08/11 1815 AC 08/12 PO 0617 Impression/Plan Impression/Problem List Impression: 40-year-old lady with a PMH of diabetes, previous right-sided hemorrhagic pleural effusion S/P Pleurx catheter, lytic therapy 2, previous MSSA sepsis likely secondary to pro-line catheter, previous necrotizing fasciitis of the perineum, left pararenal abscess, osteomyelitis of pubic bone, polysubstance abuse, depression, opiate dependence who presented with complaints of right-sided hip pain, found to have pelvic abscess, s/p IR drainage was transferred from to ICU for hypotension. It has been noted that her BP drops when she receives dilaudid. She was placed on levophed for blood pressure support. The CT findings is concerning for acute abdomen due to perforation vs ileus vs obstruction (tiny amount of free air similar to prior imaging, ?perforation gastric ulcer, gastric pneumatosis, diffusely tender abdomen, no bowel sounds heard, large amount of NG tube output bright yellow --> muddy green --> brown). Her lactic acid elevated up to 2.7, with poor UO. With IVF, her UO improved. There was cloudy yellow --> brown fluid collection in the pelvis, that was drained by Dr. Dunaway, and most likely represent infected ascitic fluid, which is draining significant amount of fluid. WBC down from 19.6 to 9. Lines: Orta Proline (08/07/16) NG tube (08/10/16) Right pelvis catheter (08/01/16) Left pelvis catheter (08/11/16) Respiratory - Currently stable * Low threshold to intubate Cardiovascular # Hypotension * Continue pressure support with levophed, goal MAP > 65 * D5 half normal saline +75 meq per liter of sodium bicarbonate at 125 mL per hour ID # Pelvic abscess sp IR drainage (right) # Acute abdomen... peritonitis vs perforation vs bowel obstruction vs ileus * Oxacillin discontinued on 08/10/16. Zosyn started on 08/10/16 to cover pseudomonas. Continue zosyn a 2.25 q6 given current clearance as per nephro recc , confirmed with pharmacy and Dr. Dunbar. Fluconazole 400 IV q8 started on for yeast in ascitic fluid. * Appreciate surgery input, consider exploratory laparotomy * F/U gastrograffin studies. F/U CT abd and pelvis * [place] [address], many enteroccocus, few gram positive rods, and budding yeast. F/U cx * Continue IV protonix and sucralfate * The tube should be open to external gravity drainage via drainage bag. Tube should be flushed Q shift with 10 mL normal saline. Strict output should be measured, not including these flushes. * Keep NG tube, keep pt NPO except ice chips * PO meds have been discontinued including lexapro, haldol, lyrica, na bicarb, senna, docusate, tylenol, simethicone. These meds would need to be reordered once pt can eat. # Necrotic decubits ulcer - Excised at bedside 08/10 - Not likely to be source of infection # Right shoulder pain with decreased passive and active ROM (improving) # Right elbow swelling (improving) - Xray and US obtained * Refuses MRI unless done under anesthesia * Appreciate Ortho (Dr. Schulz) input # The scalp lesion popped 08/02 PM, with purulent drainage noted - Alopecia noted Metabolic # Acute kidney injury with low UO * Continue to follow kidney functions * Appreciate nephro input # Hyponatremia * Continue to follow sodium level * Appreciate nephro input # Hyperkalemia * Continue to monitor Psych # Depression # Hx of drug abuse * On the W-10 and the discharge instructions, please ask the receiving facility/ ECF to call and make an intake appointment at [facility], [address] [place] [address] when her discharge date is known, . * Cannot go home with proline, must go to rehab # Agitation * IV benadryl PRN Endocrine # Diabetes mellitus * Novolog tidac/qhs * Levemir 60 bid ON HOLD,consider restarting at lower dose * Watch blood sugar closely * Consider endo consult Alimentary * NPO Skin # Decubitus ulcer * Wound consult with Dr. English appreciated * Consulted surgery, necrotic patch excised at bedside, no deep tracking or necrosis or fasciitis noted. * Consider rectal tube placement Diet: NPO (can have ice chips) DVT ppx: alps and heparin FC Consults: ID, psych,renal, ortho, PT, wound, surgery Labs: ICU critically ill , cbc for leukocytosis Problem List: 1. Peritonitis Pain Ratin Tomorrow's Labs & Rationales: ICU and CBC for critically ill Plan DVT/Prophylaxis: mechanical, pharmacological Plan DVT/Prophylaxis: mechanical, pharmacological
[2016-08-12 08:00] VITALS: BP 96/54
--- NOTE | 2016-08-12 09:43 | PN- Nephrology ---
Assessment/Plan Assessment: Acute kidney injury: Improved partially improved renal status today with improvement in oliguria and slight improvement in creatinine level. I suspect she is along the spectrum between a prerenal azotemia and ATN; responsiveness IV fluids supports element of prerenal azotemia especially as yesterday she had been net negative due to large NG tube aspiration, with hemoconcentration. Element of ATN suspected as despite aggressive IV fluid resuscitation renal function is only partially improved and not rapidly improving as would suspect with a pure prerenal azotemia. Massive anasarca/edema: Diuretic should be held until hemodynamics improve Metabolic acidosis: I suspect this is secondary to renal failure & lactic acidosis. This is a mixed gap/non-gap acidosis. Would discontinue the bicarbonate drip and only resume a bicarbonate level drops less than 18. 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 Suggestion: Would change IV fluids to D5 normal saline at 125 mL per hour (despite the anasarca would favor continuing IV fluids given the large volume of NG tube aspiration greater than 2 L per day, coupled with the fact that she still remains somewhat hypotensive and is requiring pressors) Discontinue bicarbonate drip however would resume if serum bicarbonate drops less than 18 Hold diuretics until hemogram is improved One starts taking by mouth, we'll start the patient on a phosphorus binder, such as Renvela 800 mg by mouth with meals No acute dialytic need We will follow closely with you Subjective Subjective: Urine output improving creatinine improved from 2.3-2.1 after an increased rate of IV fluids Still slightly hypotensive and requiring 5 mics per minute of levo, pressor requirement has improved Review of Systems: No fever or chills. Denies shortness of breath or chest pain Has ongoing abdominal pain Objective Vital Signs and I&Os Vital Signs Date Time Temp Pulse Resp B/P Pulse O2 O2 Flow FiO2 Ox Delivery Rate 08/12 0800 97.0 107 18 96/54 96 Nasal 2.0L Cannula 08/12 0521 102 97/50 08/12 0334 98 Nasal 3.0L Cannula 08/12 0038 111 99/47 08/12 0000 97.1 112 20 100/50 98 Nasal 3.0L Cannula 08/12 0000 98 Nasal 3.0L Cannula 08/11 2140 118 101/60 08/11 2100 96 Nasal 3.0L Cannula 08/11 2000 98 Nasal 3.0L Cannula 08/11 1600 99 Nasal 3.0L Cannula 08/11 1600 98.2 115 14 90/50 99 Nasal 3.0L Cannula 08/11 1200 97.5 116 16 86/58 98 Nasal 3.0L Cannula 08/11 1131 Nasal 5.0L Cannula 08/11 1127 Nasal 2.0L Cannula 08/11 1107 99 Nasal 4.0L Cannula Intake & Output 08/12 1600 08/12 0400 08/11 1600 08/11 0400 08/10 1600 08/10 0400 Intake Total 1258 1982 2253 1754 833 250 Output Total 1225 1610 2630 1040 2030 401 Balance 33 372 -377 714 -1197 -151 Intake, IV 1058 1782 2013 1744 583 150 Intake, Oral 200 200 200 0 250 100 Intake, Other 40 10 Number 0 0 0 Bowel Movements Output, 500 400 320 10 Drainage Output, 306 968 6320 1000 2000 Gastric Drainage Output, Other 10 Output, Stool 0 1 Output, Urine 425 310 110 30 20 400 Physical Exam: General: NAD, A+O x3. HEENT: mucosa dry Neck: negative for EBONY, JVD CV:tachy chest: +tunnelled central line Pulm: CTAB, no rales Abd: +diffusely tender with guarding +percutaneous drain Lower Ext: 2+ edema. feet cool back: +sacral edema Upper Ext: no AVFs or AVGs Neuro: neg tremor, asterixis Skin: +RUE erythema : +yao catheter Current Medications: Current Medications Sig/Shahla Start time Last Medication Dose Route Stop Time Status Admin Acetaminophen 1,000 MG ONCE ONE 08/11 2214 DC N/A 1 UNIT IV 08/11 2228 Acetaminophen 1,000 MG Q6P PRN 08/07 1630 AC 08/11 N/A 1 UNIT IV 2236 Albuterol Sulfate 3 ML BID 08/05 2199 AC 08/11 INH 2057 Albuterol Sulfate 2 PUF Q4P PRN 07/30 2199 AC 08/07 INH 0914 Benzocaine/Menthol 1 RAYMUNDO Q2P PRN 03/27 2245 AC PO Collagenase 1 DEMETRA DAILY 08/04 1000 AC 08/06 TOP 1229 Diclofenac Sodium 1 DEMETRA TID PRN 07/30 1145 AC 08/05 TOP 2142 Diphenhydramine HCl 50 MG ONCE ONE 08/11 2230 DC 08/11 IV 08/11 2231 2238 Diphenhydramine HCl 50 MG Q6P PRN 08/07 1630 AC 08/12 IV 0644 Enoxaparin Sodium 40 MG DAILY 08/08 1000 DC 08/11 SC 1028 Fentanyl Citrate 100 MCG .STK-MED ONE 08/11 1339 DC IM 08/11 1340 Heparin Sodium 5,000 UNIT Q8 08/12 0600 AC 08/12 (Porcine) SC 0616 Hydromorphone HCl 0.6 MG ONCE ONE 08/12 1030 AC IV 08/12 1031 Hydromorphone HCl 1 MG Q6-PRN PRN 08/11 1530 AC 08/12 IV PUSH 0616 Hydromorphone HCl 0.8 MG ONCE ONE 08/11 1045 DC 08/11 IV 08/11 1046 1043 Insulin Human Regular 0 Q6 08/10 1800 AC 08/12 SC 0643 Ketamine HCl 50 MG .STK-MED ONE 08/11 1340 DC IM 08/11 1341 Lidocaine 1 PAT DAILY 07/28 1800 AC 07/28 EXT 2004 Miconazole Nitrate 1 DEMETRA AT BEDTIME 07/29 0130 AC 08/11 VAG 2236 Midazolam HCl 2 MG .STK-MED ONE 08/11 1340 DC IM 08/11 1341 Norepinephrine 4 MG Q8H 08/12 0500 AC Sodium Chloride 250 ML IV Norepinephrine 4 MG Q4H 08/11 1600 DC 08/12 Sodium Chloride 250 ML IV 0038 Norepinephrine 4 MG Q5H 08/11 0015 DC 08/11 Sodium Chloride 250 ML IV 1300 Nystatin 1 DEMETRA TID PRN 08/12 0730 AC TOP Pantoprazole Sodium 40 MG DAILY 08/11 1802 AC 08/12 IV 0036 Piperacillin Sod/ 4.5 GM Q6H 08/11 1600 DC Tazobactam Sod IV Sodium Chloride 100 ML Piperacillin Sod/ 2.25 GM Q6H 08/11 1600 AC 08/12 Tazobactam Sod IV 0520 Sodium Chloride 100 ML Piperacillin Sod/ 4.5 GM Q6H 08/10 2130 DC 08/11 Tazobactam Sod IV 1015 Sodium Chloride 100 ML Sodium Bicarbonate 75 MEQ Q8H 08/11 1215 AC 08/12 Dextrose/Sodium 1,000 ML IV 0015 Chloride Sodium Bicarbonate 50 MEQ .STK-MED ONE 08/11 1202 DC IV 08/11 1203 Sodium Bicarbonate 50 MEQ Q20H 08/11 0930 DC Dextrose/Sodium 1,000 ML IV 08/12 0529 Chloride Sodium Chloride 500 ML BOLUS ONE 08/11 2200 DC 08/11 IV 08/11 2259 2237 Sodium Chloride 500 ML BOLUS ONE 08/11 1715 DC 08/11 IV 08/11 1814 1744 Sodium Chloride 500 ML BOLUS ONE 08/11 1215 DC 08/11 IV 08/11 1314 1215 Sodium Chloride 1,000 ML Q10H 08/11 1015 DC 08/11 IV 1028 Sucralfate 1 GM Q6 08/11 181 AC 08/12 PO 0617 Results Pertinent Lab Results: Laboratory Tests 08/12 08/12 0530 0000 Chemistry Sodium (137 - 145 mmol/L) 134 L Potassium (3.5 - 5.1 mmol/L) 4.1 Chloride (98 - 107 mmol/L) 103 Carbon Dioxide (22 - 30 mmol/L) 20 L Anion Gap (5 - 16) 11 BUN (7 - 17 mg/dL) 58 H Creatinine (0.5 - 1.0 mg/dL) 2.1 H Estimated GFR (>60 ml/min) 26 L Glucose (65 - 99 mg/dL) 173 H Lactic Acid (0.7 - 2.1 mmol/L) 2.7 H Calcium (8.4 - 10.2 mg/dL) 7.7 L Phosphorus (2.5 - 4.5 mg/dL) 7.8 H Magnesium (1.6 - 2.3 mg/dL) 2.0 Total Bilirubin (0.2 - 1.3 mg/dL) 0.2 AST (14 - 36 U/L) 22 ALT (9 - 52 U/L) 36 Albumin (3.5 - 5.0 g/dL) 1.8 L Hematology CBC w Diff MAN DIFF ORDERED Cancelled WBC (4.8 - 10.8 /CUMM) 9.0 Cancelled RBC (4.20 - 5.40 /CUMM) 3.30 L Cancelled Hgb (12.0 - 16.0 G/DL) 8.6 L Cancelled Hct (37 - 47 %) 27.3 L Cancelled MCV (81.0 - 99.0 FL) 82.7 Cancelled MCH (27.0 - 31.0 PG) 26.2 L Cancelled RDW (11.5 - 14.5 %) 18.4 H Cancelled Plt Count (130 - 400 /CUMM) 211 Cancelled MPV (7.4 - 10.4 FL) 7.4 Cancelled Gran % (42.2 - 75.2 %) 87.7 H Lymphocytes % (20.5 - 51.1 %) 7.5 L Monocytes % (1.7 - 9.3 %) 0.6 L Eosinophils % (0 - 5 %) 4.0 Basophils % (0.0 - 2.0 %) 0.2 Absolute Granulocytes (1.4 - 6.5 /CUMM) 7.9 H Segmented Neutrophils (42.2 - 75.2 %) 76 H Band Neutrophils (0.0 - 5.0 %) 5 Absolute Lymphocytes (1.2 - 3.4 /CUMM) 0.7 L Lymphocytes (20.5 - 51.1 %) 10 L Monocytes (1.7 - 9.3 %) 1 L Absolute Monocytes (0.10 - 0.60 /CUMM) 0.1 L Eosinophils (0 - 5.0 %) 6 H Absolute Eosinophils (0.0 - 0.7 /CUMM) 0.4 Basophils (0.0 - 2.0 %) 1 Absolute Basophils (0.0 - 0.2 /CUMM) 0 Metamyelocytes (0.0 - 1.0 %) 1 Platelet Estimate (ADEQUATE) ADEQUATE Hypochromic-Microcytic 2+ Anisocytosis 1+ PUBS MCHC (33.0 - 37.0 G/DL) 31.7 L Cancelled 08/11 08/11 1220 UNK Chemistry Sodium (137 - 145 mmol/L) 132 L Potassium (3.5 - 5.1 mmol/L) 4.9 Chloride (98 - 107 mmol/L) 99 Carbon Dioxide (22 - 30 mmol/L) 20 L Anion Gap (5 - 16) 13 BUN (7 - 17 mg/dL) 59 H Creatinine (0.5 - 1.0 mg/dL) 2.2 H Estimated GFR (>60 ml/min) 25 L Glucose (65 - 99 mg/dL) 149 H Lactic Acid (0.7 - 2.1 mmol/L) 2.2 H Calcium (8.4 - 10.2 mg/dL) 8.3 L Phosphorus (2.5 - 4.5 mg/dL) 8.5 H Magnesium (1.6 - 2.3 mg/dL) 2.0 Total Bilirubin (0.2 - 1.3 mg/dL) 0.2 AST (14 - 36 U/L) 29 ALT (9 - 52 U/L) 45 Albumin (3.5 - 5.0 g/dL) 1.9 L Coagulation PT (9.4 - 12.5 SEC) 11.3 INR (0.90 - 1.19) 1.08 APTT (25 - 37 SEC) 31 Hematology CBC w Diff MAN DIFF ORDERED WBC (4.8 - 10.8 /CUMM) 19.6 H RBC (4.20 - 5.40 /CUMM) 3.73 L Hgb (12.0 - 16.0 G/DL) 9.8 L Hct (37 - 47 %) 30.8 L MCV (81.0 - 99.0 FL) 82.4 MCH (27.0 - 31.0 PG) 26.3 L RDW (11.5 - 14.5 %) 19.0 H Plt Count (130 - 400 /CUMM) 261 MPV (7.4 - 10.4 FL) 7.3 L Gran % (42.2 - 75.2 %) 91.1 H Lymphocytes % (20.5 - 51.1 %) 4.0 L Monocytes % (1.7 - 9.3 %) 2.6 Eosinophils % (0 - 5 %) 2.3 Basophils % (0.0 - 2.0 %) 0 L Absolute Granulocytes (1.4 - 6.5 /CUMM) 17.8 H Segmented Neutrophils (42.2 - 75.2 %) 88 H Band Neutrophils (0.0 - 5.0 %) 6 H Absolute Lymphocytes (1.2 - 3.4 /CUMM) 0.8 L Lymphocytes (20.5 - 51.1 %) 3 L Monocytes (1.7 - 9.3 %) 3 Absolute Monocytes (0.10 - 0.60 /CUMM) 0.5 Absolute Eosinophils (0.0 - 0.7 /CUMM) 0.4 Absolute Basophils (0.0 - 0.2 /CUMM) 0 Platelet Estimate (ADEQUATE) VERIFIED BY SMEAR Anisocytosis 1+ PUBS MCHC (33.0 - 37.0 G/DL) 31.9 L Other Body Source Fluid WBC (0 - 5 /CUMM) 11167 H Fld Total RBCs Counted (0 /CUMM) 2025 H 08/11 08/11 08/11 UNK 0320 0320 Chemistry Sodium (137 - 145 mmol/L) Cancelled 128 L Potassium (3.5 - 5.1 mmol/L) Cancelled 5.0 Chloride (98 - 107 mmol/L) Cancelled 100 Carbon Dioxide (22 - 30 mmol/L) Cancelled 17 L Anion Gap (5 - 16) Cancelled 10 BUN (7 - 17 mg/dL) Cancelled 56 H Creatinine (0.5 - 1.0 mg/dL) Cancelled 2.3 H Estimated GFR (>60 ml/min) 23 L Glucose (65 - 99 mg/dL) Cancelled 188 H Lactic Acid (0.7 - 2.1 mmol/L) 2.7 H Calcium (8.4 - 10.2 mg/dL) Cancelled 8.6 Phosphorus (2.5 - 4.5 mg/dL) Cancelled 8.5 H Magnesium (1.6 - 2.3 mg/dL) Cancelled 2.0 Total Bilirubin (0.2 - 1.3 mg/dL) Cancelled 0.2 AST (14 - 36 U/L) Cancelled 28 ALT (9 - 52 U/L) Cancelled 45 Lactate Dehydrogenase (313 - 618 U/L) 657 H Total Protein (6.3 - 8.2 g/dL) 4.5 L Albumin (3.5 - 5.0 g/dL) Cancelled 2.0 L Hematology CBC w Diff MAN DIFF ORDERED WBC (4.8 - 10.8 /CUMM) 23.0 H RBC (4.20 - 5.40 /CUMM) 3.96 L Hgb (12.0 - 16.0 G/DL) 10.4 L Hct (37 - 47 %) 32.4 L MCV (81.0 - 99.0 FL) 81.9 MCH (27.0 - 31.0 PG) 26.3 L RDW (11.5 - 14.5 %) 18.4 H Plt Count (130 - 400 /CUMM) 294 MPV (7.4 - 10.4 FL) 7.6 Segmented Neutrophils (42.2 - 75.2 %) 79 H Band Neutrophils (0.0 - 5.0 %) 6 H Lymphocytes (%) 13 L Eosinophils (0 - 5.0 %) 1 Metamyelocytes (0.0 - 1.0 %) 1 Platelet Estimate (ADEQUATE) ADEQUATE Polychromasia 1+ Hypochromic-Microcytic 1+ Poikilocytosis 2+ Anisocytosis 1+ Microcytic Cells 1+ Ovalocytes 1+ Stomatocytes 1+ PUBS MCHC (33.0 - 37.0 G/DL) 32.1 L Other Body Source Fld Total RBCs Counted (%) 100 Fluid Total Protein (g/dL) 2.5 Fluid Albumin (g/dL) 1.2 Fluid LDH (U/L) 91589 Fluid Amylase (U/L) 67 08/11 08/10 08/10 0000 2159 1938 Chemistry Sodium (137 - 145 mmol/L) 132 L Potassium (3.5 - 5.1 mmol/L) 5.2 H Chloride (98 - 107 mmol/L) 100 Carbon Dioxide (22 - 30 mmol/L) 18 L Anion Gap (5 - 16) 14 BUN (7 - 17 mg/dL) 54 H Creatinine (0.5 - 1.0 mg/dL) 1.8 H Estimated GFR (>60 ml/min) 31 L Glucose (65 - 99 mg/dL) 210 H Lactic Acid (0.7 - 2.1 mmol/L) 2.5 H Cancelled 3.4 H Calcium (8.4 - 10.2 mg/dL) 8.3 L Phosphorus (2.5 - 4.5 mg/dL) 8.1 H Magnesium (1.6 - 2.3 mg/dL) 2.0 Total Bilirubin (0.2 - 1.3 mg/dL) 0.4 AST (14 - 36 U/L) 31 ALT (9 - 52 U/L) 44 Albumin (3.5 - 5.0 g/dL) 2.0 L Hematology CBC w Diff MAN DIFF ORDERED WBC (4.8 - 10.8 /CUMM) 29.8 H RBC (4.20 - 5.40 /CUMM) 4.00 L Hgb (12.0 - 16.0 G/DL) 10.5 L Hct (37 - 47 %) 32.8 L MCV (81.0 - 99.0 FL) 82.0 MCH (27.0 - 31.0 PG) 26.2 L RDW (11.5 - 14.5 %) 19.1 H Plt Count (130 - 400 /CUMM) 319 MPV (7.4 - 10.4 FL) 7.9 Gran % (42.2 - 75.2 %) 96.4 H Lymphocytes % (20.5 - 51.1 %) 2.8 L Monocytes % (1.7 - 9.3 %) 0.4 L Eosinophils % (0 - 5 %) 0.4 Basophils % (0.0 - 2.0 %) 0 L Absolute Granulocytes (1.4 - 6.5 /CUMM) 28.7 H Segmented Neutrophils (42.2 - 75.2 %) 82 H Band Neutrophils (0.0 - 5.0 %) 14 H Absolute Lymphocytes (1.2 - 3.4 /CUMM) 0.8 L Lymphocytes (20.5 - 51.1 %) 2 L Monocytes (1.7 - 9.3 %) 2 Absolute Monocytes (0.10 - 0.60 /CUMM) 0.1 L Absolute Eosinophils (0.0 - 0.7 /CUMM) 0.1 Absolute Basophils (0.0 - 0.2 /CUMM) 0 Hypochromic-Microcytic 1+ Poikilocytosis 1+ Stomatocytes 1+ PUBS MCHC (33.0 - 37.0 G/DL) 32.0 L 08/10 08/10 0810 0556 Chemistry Sodium (137 - 145 mmol/L) 130 L Potassium (3.5 - 5.1 mmol/L) 5.0 Chloride (98 - 107 mmol/L) 101 Carbon Dioxide (22 - 30 mmol/L) 20 L Anion Gap (5 - 16) 10 BUN (7 - 17 mg/dL) 51 H Creatinine (0.5 - 1.0 mg/dL) 1.7 H Estimated GFR (>60 ml/min) 33 L BUN/Creatinine Ratio (7 - 25 %) 30.0 H Lactic Acid (0.7 - 2.1 mmol/L) 3.1 H Troponin I (< 0.11 ng/ml) < 0.01 Cortisol AM Sample (4.46 - 22.7 ug/dL) 42.4 H Hematology CBC w Diff MAN DIFF ORDERED WBC (4.8 - 10.8 /CUMM) 20.9 H RBC (4.20 - 5.40 /CUMM) 4.07 L Hgb (12.0 - 16.0 G/DL) 10.7 L Hct (37 - 47 %) 33.1 L MCV (81.0 - 99.0 FL) 81.5 MCH (27.0 - 31.0 PG) 26.3 L RDW (11.5 - 14.5 %) 18.6 H Plt Count (130 - 400 /CUMM) 279 MPV (7.4 - 10.4 FL) 7.9 Gran % (42.2 - 75.2 %) 94.5 H Lymphocytes % (20.5 - 51.1 %) 3.8 L Monocytes % (1.7 - 9.3 %) 0.8 L Eosinophils % (0 - 5 %) 0.6 Basophils % (0.0 - 2.0 %) 0.3 Absolute Granulocytes (1.4 - 6.5 /CUMM) 19.8 H Segmented Neutrophils (42.2 - 75.2 %) 63 Band Neutrophils (0.0 - 5.0 %) 25 H Absolute Lymphocytes (1.2 - 3.4 /CUMM) 0.8 L Lymphocytes (20.5 - 51.1 %) 4 L Monocytes (1.7 - 9.3 %) 4 Absolute Monocytes (0.10 - 0.60 /CUMM) 0.2 Eosinophils (0 - 5.0 %) 4 Absolute Eosinophils (0.0 - 0.7 /CUMM) 0.1 Absolute Basophils (0.0 - 0.2 /CUMM) 0.1 Polychromasia 1+ Anisocytosis 2+ PUBS MCHC (33.0 - 37.0 G/DL) 32.3 L
--- NOTE | 2016-08-12 10:53 | PN- Infect Dx ---
Subjective Subjective: Afebrile. She remains on Levophed to maintain her blood pressure. She continues to complain of left-sided abdominal pain. Objective Last 24 Hrs of Vital Signs/I&O Vital Signs Date Time Temp Pulse Resp B/P Pulse O2 O2 Flow FiO2 Ox Delivery Rate 08/12 1029 97 Nasal 2.0L Cannula 08/12 0800 97.0 107 18 96/54 96 Nasal 2.0L Cannula 08/12 0800 95 Nasal 2.0L Cannula 08/12 0521 102 97/50 08/12 0334 98 Nasal 3.0L Cannula 08/12 0038 111 99/47 08/12 0000 97.1 112 20 100/50 98 Nasal 3.0L Cannula 08/12 0000 98 Nasal 3.0L Cannula 08/11 2140 118 101/60 08/11 2100 96 Nasal 3.0L Cannula 08/11 2000 98 Nasal 3.0L Cannula 08/11 1600 99 Nasal 3.0L Cannula 08/11 1600 98.2 115 14 90/50 99 Nasal 3.0L Cannula 08/11 1200 97.5 116 16 86/58 98 Nasal 3.0L Cannula 08/11 1131 Nasal 5.0L Cannula 08/11 1127 Nasal 2.0L Cannula 08/11 1107 99 Nasal 4.0L Cannula Intake & Output 08/12 1600 08/12 0800 08/12 0000 Intake Total 1258 1982 Output Total 1225 1610 Balance 33 372 Intake, IV 1058 1782 Intake, Oral 200 200 Number 0 Bowel Movements Output, 500 400 Drainage Output, 300 900 Gastric Drainage Output, Stool 0 Output, Urine 425 310 Physical Exam Other Physical Findings: She appears uncomfortable but is in no acute distress HEENT NG tube in place Chest Pro-Line left upper chest with no inflammation at the site Lungs are clear Heart regular rhythm with no murmur Abdomen obese, tender on palpation diffusely, particularly on the left, with guarding and possible rebound, positive bowel sounds; left lower quadrant catheter with 700 mL output yesterday and 500 mL overnight; lower abdominal ( pelvic) catheter with no output reported Extremities 1+ edema both lower extremities; decreased erythema and edema of the right upper extremity Orta catheter remains in place Results Last 24 Hours of Lab Results: Laboratory Tests 08/12 08/12 0530 0000 Chemistry Sodium (137 - 145 mmol/L) 134 L Potassium (3.5 - 5.1 mmol/L) 4.1 Chloride (98 - 107 mmol/L) 103 Carbon Dioxide (22 - 30 mmol/L) 20 L Anion Gap (5 - 16) 11 BUN (7 - 17 mg/dL) 58 H Creatinine (0.5 - 1.0 mg/dL) 2.1 H Estimated GFR (>60 ml/min) 26 L Glucose (65 - 99 mg/dL) 173 H Lactic Acid (0.7 - 2.1 mmol/L) 2.7 H Calcium (8.4 - 10.2 mg/dL) 7.7 L Phosphorus (2.5 - 4.5 mg/dL) 7.8 H Magnesium (1.6 - 2.3 mg/dL) 2.0 Total Bilirubin (0.2 - 1.3 mg/dL) 0.2 AST (14 - 36 U/L) 22 ALT (9 - 52 U/L) 36 Albumin (3.5 - 5.0 g/dL) 1.8 L Hematology CBC w Diff MAN DIFF ORDERED Cancelled WBC (4.8 - 10.8 /CUMM) 9.0 Cancelled RBC (4.20 - 5.40 /CUMM) 3.30 L Cancelled Hgb (12.0 - 16.0 G/DL) 8.6 L Cancelled Hct (37 - 47 %) 27.3 L Cancelled MCV (81.0 - 99.0 FL) 82.7 Cancelled MCH (27.0 - 31.0 PG) 26.2 L Cancelled RDW (11.5 - 14.5 %) 18.4 H Cancelled Plt Count (130 - 400 /CUMM) 211 Cancelled MPV (7.4 - 10.4 FL) 7.4 Cancelled Gran % (42.2 - 75.2 %) 87.7 H Lymphocytes % (20.5 - 51.1 %) 7.5 L Monocytes % (1.7 - 9.3 %) 0.6 L Eosinophils % (0 - 5 %) 4.0 Basophils % (0.0 - 2.0 %) 0.2 Absolute Granulocytes (1.4 - 6.5 /CUMM) 7.9 H Segmented Neutrophils (42.2 - 75.2 %) 76 H Band Neutrophils (0.0 - 5.0 %) 5 Absolute Lymphocytes (1.2 - 3.4 /CUMM) 0.7 L Lymphocytes (20.5 - 51.1 %) 10 L Monocytes (1.7 - 9.3 %) 1 L Absolute Monocytes (0.10 - 0.60 /CUMM) 0.1 L Eosinophils (0 - 5.0 %) 6 H Absolute Eosinophils (0.0 - 0.7 /CUMM) 0.4 Basophils (0.0 - 2.0 %) 1 Absolute Basophils (0.0 - 0.2 /CUMM) 0 Metamyelocytes (0.0 - 1.0 %) 1 Platelet Estimate (ADEQUATE) ADEQUATE Hypochromic-Microcytic 2+ Anisocytosis 1+ PUBS MCHC (33.0 - 37.0 G/DL) 31.7 L Cancelled 08/11 1220 Chemistry Sodium (137 - 145 mmol/L) 132 L Potassium (3.5 - 5.1 mmol/L) 4.9 Chloride (98 - 107 mmol/L) 99 Carbon Dioxide (22 - 30 mmol/L) 20 L Anion Gap (5 - 16) 13 BUN (7 - 17 mg/dL) 59 H Creatinine (0.5 - 1.0 mg/dL) 2.2 H Estimated GFR (>60 ml/min) 25 L Glucose (65 - 99 mg/dL) 149 H Lactic Acid (0.7 - 2.1 mmol/L) 2.2 H Calcium (8.4 - 10.2 mg/dL) 8.3 L Phosphorus (2.5 - 4.5 mg/dL) 8.5 H Magnesium (1.6 - 2.3 mg/dL) 2.0 Total Bilirubin (0.2 - 1.3 mg/dL) 0.2 AST (14 - 36 U/L) 29 ALT (9 - 52 U/L) 45 Albumin (3.5 - 5.0 g/dL) 1.9 L Coagulation PT (9.4 - 12.5 SEC) 11.3 INR (0.90 - 1.19) 1.08 APTT (25 - 37 SEC) 31 Hematology CBC w Diff MAN DIFF ORDERED WBC (4.8 - 10.8 /CUMM) 19.6 H RBC (4.20 - 5.40 /CUMM) 3.73 L Hgb (12.0 - 16.0 G/DL) 9.8 L Hct (37 - 47 %) 30.8 L MCV (81.0 - 99.0 FL) 82.4 MCH (27.0 - 31.0 PG) 26.3 L RDW (11.5 - 14.5 %) 19.0 H Plt Count (130 - 400 /CUMM) 261 MPV (7.4 - 10.4 FL) 7.3 L Gran % (42.2 - 75.2 %) 91.1 H Lymphocytes % (20.5 - 51.1 %) 4.0 L Monocytes % (1.7 - 9.3 %) 2.6 Eosinophils % (0 - 5 %) 2.3 Basophils % (0.0 - 2.0 %) 0 L Absolute Granulocytes (1.4 - 6.5 /CUMM) 17.8 H Segmented Neutrophils (42.2 - 75.2 %) 88 H Band Neutrophils (0.0 - 5.0 %) 6 H Absolute Lymphocytes (1.2 - 3.4 /CUMM) 0.8 L Lymphocytes (20.5 - 51.1 %) 3 L Monocytes (1.7 - 9.3 %) 3 Absolute Monocytes (0.10 - 0.60 /CUMM) 0.5 Absolute Eosinophils (0.0 - 0.7 /CUMM) 0.4 Absolute Basophils (0.0 - 0.2 /CUMM) 0 Platelet Estimate (ADEQUATE) VERIFIED BY SMEAR Anisocytosis 1+ PUBS MCHC (33.0 - 37.0 G/DL) 31.9 L Last 24 Hours of Haris Results: Ascitic fluid culture August 11 positive for Enterococcus, gram negative rods and yeast Blood cultures 2 August 10 negative Assessment/Plan Impression: Condition remains poor, with persistent hypotension, requiring pressors, though temperatures remain normal and white blood cell count has normalized on Zosyn Day 2 of treatment for peritonitis, status post drainage of the left lower quadrant fluid collection yesterday, which is growing multiple organisms, including Enterococcus, gram negative rods and yeast, possibly secondary to a gastric/duodenal perforation. She may well require surgery, but further evaluation for perforation is apparently planned prior to this decision. Her renal function, worsened likely secondary to sepsis, appears to be stable. The pelvic abscess secondary to MSSA has improved on the recent CT scan, but will likely need to be reevaluated as there has been no drainage from the catheter. Suggestion: 1. Await Gastrografin study, scheduled for later today 2. Further management with regard to exploration of her abdomen per Surgery 3. Follow-up final culture of the ascitic fluid 4. Will need follow-up CT of the pelvis to reevaluate the pelvic collection if drainage remains minimal 5. Begin Fluconazole 400 mg IV every 48 hours 6. Continue Zosyn pending final cultures
--- NOTE | 2016-08-12 11:48 | PN- CRCU ---
Subjective HPI/Critical Care Issues: pt seen and examined pain is controlled with Dilaudid will give extra dose for gastrograffin study, however discussed with patient that she will not get any other medication more frequently than every 6 hours unless clinically warranted Objective Current Medications: Current Medications Sig/Shahla Start time Last Medication Dose Route Stop Time Status Admin Acetaminophen 1,000 MG ONCE ONE 08/11 2215 DC N/A 1 UNIT IV 08/11 2229 Acetaminophen 1,000 MG Q6P PRN 08/07 1630 AC 08/11 N/A 1 UNIT IV 2237 Albuterol Sulfate 3 ML BID 08/05 2200 AC 08/11 INH 2057 Albuterol Sulfate 2 PUF Q4P PRN 07/30 2200 AC 08/07 INH 0914 Benzocaine/Menthol 1 RAYMUNDO Q2P PRN 08/11 2245 AC PO Collagenase 1 DEMETRA DAILY 08/04 1000 AC 08/06 TOP 1229 Dextrose/Sodium 1,000 ML Q8H 08/12 1045 AC Chloride IV Diclofenac Sodium 1 DEMETRA TID PRN 07/30 1145 AC 08/05 TOP 2142 Diphenhydramine HCl 50 MG ONCE ONE 08/11 2230 DC 08/11 IV 08/11 2231 2238 Diphenhydramine HCl 50 MG Q6P PRN 08/07 1630 AC 08/12 IV 0644 Enoxaparin Sodium 40 MG DAILY 08/08 1000 DC 08/11 SC 1028 Fentanyl Citrate 100 MCG .STK-MED ONE 08/11 1339 DC IM 08/11 1340 Fluconazole 400 MG Q48 08/12 1130 UNVr Sodium Chloride 200 ML IV Heparin Sodium 5,000 UNIT Q8 08/12 0600 AC 08/12 (Porcine) SC 0616 Hydromorphone HCl 0.6 MG ONCE ONE 08/12 1030 DC 08/12 IV 08/12 1031 1051 Hydromorphone HCl 1 MG Q6-PRN PRN 08/11 1530 AC 08/12 IV PUSH 0616 Insulin Human Regular 0 Q6 08/10 1800 AC 08/12 SC 0643 Ketamine HCl 50 MG .STK-MED ONE 08/11 1340 DC IM 08/11 1341 Lidocaine 1 PAT DAILY 07/28 1800 AC 07/28 EXT 2004 Miconazole Nitrate 1 DEMETRA AT BEDTIME 07/29 0130 AC 08/11 VAG 2236 Midazolam HCl 2 MG .STK-MED ONE 08/11 1340 DC IM 08/11 1341 Norepinephrine 4 MG Q8H 08/12 0500 AC Sodium Chloride 250 ML IV Norepinephrine 4 MG Q4H 08/11 1600 DC 08/12 Sodium Chloride 250 ML IV 0038 Norepinephrine 4 MG Q5H 08/11 0015 DC 08/11 Sodium Chloride 250 ML IV 1300 Nystatin 1 DEMETRA TID PRN 08/12 0730 AC TOP Pantoprazole Sodium 40 MG DAILY 08/11 1802 AC 08/12 IV 1014 Piperacillin Sod/ 4.5 GM Q6H 08/11 1600 DC Tazobactam Sod IV Sodium Chloride 100 ML Piperacillin Sod/ 2.25 GM Q6H 08/11 1600 AC 08/12 Tazobactam Sod IV 1014 Sodium Chloride 100 ML Piperacillin Sod/ 4.5 GM Q6H 08/10 2130 DC 08/11 Tazobactam Sod IV 1015 Sodium Chloride 100 ML Sodium Bicarbonate 75 MEQ Q8H 08/11 1215 DC 08/12 Dextrose/Sodium 1,000 ML IV 0015 Chloride Sodium Bicarbonate 50 MEQ .STK-MED ONE 08/11 1202 DC IV 08/11 1203 Sodium Bicarbonate 50 MEQ Q20H 08/11 0930 DC Dextrose/Sodium 1,000 ML IV 08/12 0529 Chloride Sodium Chloride 500 ML BOLUS ONE 08/11 2200 DC 08/11 IV 08/11 2259 2237 Sodium Chloride 500 ML BOLUS ONE 08/11 1715 DC 08/11 IV 08/11 1814 1744 Sodium Chloride 500 ML BOLUS ONE 08/11 1215 DC 08/11 IV 08/11 1314 1215 Sodium Chloride 1,000 ML Q10H 08/11 1015 DC 08/11 IV 1028 Sucralfate 1 GM Q6 08/11 1815 AC 08/12 PO 0617 Vital Signs & I&O Last 24 Hrs of Vitals and I&O: Vital Signs Date Time Temp Pulse Resp B/P Pulse O2 O2 Flow FiO2 Ox Delivery Rate 08/12 1029 97 Nasal 2.0L Cannula 08/12 0800 97.0 107 18 96/54 96 Nasal 2.0L Cannula 08/12 0800 95 Nasal 2.0L Cannula 08/12 0521 102 97/50 08/12 0334 98 Nasal 3.0L Cannula 08/12 0038 111 99/47 08/12 0000 97.1 112 20 100/50 98 Nasal 3.0L Cannula 08/12 0000 98 Nasal 3.0L Cannula 08/11 2140 118 101/60 08/11 2100 96 Nasal 3.0L Cannula 08/12 1999 98 Nasal 3.0L Cannula 08/11 1600 99 Nasal 3.0L Cannula 08/11 1600 98.2 115 14 90/50 99 Nasal 3.0L Cannula 08/11 1200 97.5 116 16 86/58 98 Nasal 3.0L Cannula Intake & Output 08/12 1600 08/12 0800 08/12 0000 Intake Total 1258 1982 Output Total 1225 1610 Balance 33 372 Intake, IV 1058 1782 Intake, Oral 200 200 Number 0 Bowel Movements Output, 500 400 Drainage Output, 300 900 Gastric Drainage Output, Stool 0 Output, Urine 425 310 Exam Other Physical Findings: gen awake and alert heent proline cvs s1, s2 lungs ctab anteriorly abd obese ext without edema Results Last 24 Hrs of Lab Results: Laboratory Tests 08/12/16 0530: Anion Gap 11, Estimated GFR 26 L, Glucose 173 H, Lactic Acid 2.7 H, Calcium 7.7 L, Phosphorus 7.8 H, Magnesium 2.0, Total Bilirubin 0.2, AST 22, ALT 36, Albumin 1.8 L, CBC w Diff MAN DIFF ORDERED, RBC 3.30 L, MCV 82.7, MCH 26.2 L, RDW 18.4 H, MPV 7.4, Gran % 87.7 H, Lymphocytes % 7.5 L, Monocytes % 0.6 L, Eosinophils % 4.0, Basophils % 0.2, Absolute Granulocytes 7.9 H, Segmented Neutrophils 76 H, Band Neutrophils 5, Absolute Lymphocytes 0.7 L, Lymphocytes 10 L, Monocytes 1 L, Absolute Monocytes 0.1 L, Eosinophils 6 H, Absolute Eosinophils 0.4, Basophils 1, Absolute Basophils 0, Metamyelocytes 1, Platelet Estimate ADEQUATE, Hypochromic-Microcytic 2+, Anisocytosis 1+, PUBS MCHC 31.7 L 08/12/16 0000: CBC w Diff Cancelled, WBC Cancelled, RBC Cancelled, Hgb Cancelled, Hct Cancelled , MCV Cancelled, MCH Cancelled, RDW Cancelled, Plt Count Cancelled, MPV Cancelled, PUBS MCHC Cancelled 08/11/16 1220: Anion Gap 13, Estimated GFR 25 L, Glucose 149 H, Lactic Acid 2.2 H, Calcium 8.3 L, Phosphorus 8.5 H, Magnesium 2.0, Total Bilirubin 0.2, AST 29, ALT 45, Albumin 1.9 L, PT 11.3, INR 1.08, APTT 31, CBC w Diff MAN DIFF ORDERED, RBC 3.73 L, MCV 82.4, MCH 26.3 L, RDW 19.0 H, MPV 7.3 L, Gran % 91.1 H, Lymphocytes % 4.0 L, Monocytes % 2.6, Eosinophils % 2.3, Basophils % 0 L, Absolute Granulocytes 17.8 H, Segmented Neutrophils 88 H, Band Neutrophils 6 H, Absolute Lymphocytes 0.8 L, Lymphocytes 3 L, Monocytes 3, Absolute Monocytes 0.5, Absolute Eosinophils 0.4, Absolute Basophils 0, Platelet Estimate VERIFIED BY SMEAR, Anisocytosis 1+, PUBS MCHC 31.9 L Impression/Plan Impression/Plan Impression/Plan: Impression 40 year old woman - hx of multiple collections/pus, MSSA - loculated right pleural effusion chronic - hyponatremia improved - [place] stable Plan - zosyn, ID following, s/p abdominal drain placement 08/11/16 - plan for Gastrografin study today - nephrology following - pain control not more frequently than q6h, will try to reduce dosing as tolerated - hemodynamic monitoring - levophed, CVP, MAP goal >65 - DVT prophylaxis TTS 35 min
--- NOTE | 2016-08-12 13:48 | RADIOLOGY REPORT ---
EXAMINATION: XR GASTROGRAFIN GI SERIES CLINICAL INFORMATION: Abdominal pain. Evaluate for gastric/duodenum perforation or obstruction. COMPARISON: CT of abdomen pelvis from 08/10/2016. TECHNIQUE: Patient was brought to the fluoroscopy suite for an upper GI series to be performed with Gastrografin contrast material. A nasogastric tube is in satisfactory position, its tip located in the gastric body. 200 mL of a 50% dilution of Gastrografin contrast material was injected into the nasogastric tube. Spot fluoroscopy images were obtained. Note that a KUB was acquired prior to the upper GI series. FLUOROSCOPY TIME: 1 minute, 22 seconds. NUMBER OF IMAGES: 7 FINDINGS: KUB demonstrates the tip of the NG tube to be located in the gastric body. Multiple gas bubbles are seen in the region of the proximal gastric body and fundus, suspicious for gastric wall pneumatosis. A few old, healed left rib fractures are noted. This gastrointestinal series is limited due to patient's physical condition and inability to stand upright, fully rotate or assume a prone position. After injection of Gastrografin contrast material into the stomach, an amorphous opacity developed over the proximal gastric body and extending lateral to the fundus. However, the patient was unable to rotate on the fluoroscopy table. Given uncertainty regarding contrast extravasation from the stomach, arrangements were made to have the patient transferred to the CT imaging suite. IMPRESSION: Findings remain suspicious for gastric pneumatosis. Gastric perforation is suspected on this limited upper GI series. The examination is particularly limited by the patient's inability to rotate on the fluoroscopy table. Arrangements have been made to have the patient transferred to the CT imaging suite for CT imaging evaluation.
--- NOTE | 2016-08-12 13:49 | CT SCAN REPORT ---
EXAMINATION: CT ABDOMEN AND PELVIS WITHOUT CONTRAST CLINICAL INFORMATION: Microperforation versus ileus versus obstruction. COMPARISON: 2 days ago on 08/10/2016 TECHNIQUE: Multidetector volumetric imaging was performed from the superior aspect of the liver through the pubic symphysis. Sagittal and coronal reformatted images were obtained on the technologist's workstation. DLP: 1689.23 mGy-cm. FINDINGS: LUNG BASES: Ground-glass changes are again seen at the lung bases. Partial collapse of right lower lobe and to a lesser extent left. Findings are unchanged since the previous study. Right pleural effusion is present. LIVER, GALLBLADDER, AND BILIARY TREE: The liver is normal in size, shape, and attenuation. No focal hepatic lesion or biliary ductal dilatation is present on this noncontrast enhanced study. The gallbladder is unremarkable with no evidence of radiopaque gallstones, gallbladder wall thickening, or obvious pericholecystic inflammatory changes. PANCREAS: Unremarkable. SPLEEN: Unremarkable. ADRENAL GLANDS: Unremarkable. KIDNEYS AND URETERS: The kidneys are normal in size, shape, and attenuation. No hydronephrosis, hydroureter, or calculi seen. No perinephric stranding. BLADDER: Decompressed by Orta catheter. GASTROINTESTINAL TRACT: Patient status post right hemicolectomy. No bowel obstruction is seen. The tiny bit of air is seen in the gastric wall previously is completely unchanged. ABDOMINAL WALL: There was air in the left abdominal wall which is significantly improved with a tiny speck of air remaining. Anasarca is present. LYMPH NODES: No lymphadenopathy. VASCULAR: Calcification of aortoiliac vessels. No evidence of aortic aneurysm. PELVIC VISCERA: A right pelvic drainage catheter remains in place and since the previous CT, a new pelvic drainage catheter has been placed on the left. A moderate amount of ascites remains which has increased slightly since the previous study. OSSEOUS STRUCTURES: Minimal anterior wedging of T11. Degenerative changes L4-L5 with marked endplate sclerosis and erosion. Pelvic fractures are again seen. IMPRESSION: Ascites has slightly increased since the previous study. There is a newly placed left lower quadrant drainage catheter present. No evidence of bowel obstruction or rupture. No free extraluminal air is seen.
--- NOTE | 2016-08-12 15:04 | NUR ---
@0800-PT ALERT AND ORIENTED. COOP. ANXIOUS. FOLLOWS COMMANDS. VSS. DILAUDID PRN-RECIEVED LAST DOSE AT 0620. CONT ON O2 THERAPY-TITRATED TO 2L FROM 3LNC. O2SAT 94-97%. LUNGS CLEAR, DIM TO BASES. NSR/ST HR 90S-110. BP<90. CONT ON LEVO GTT, CURRENTLY INFUSING AT 5MCG/MIN. CVP 8. NGT NOTED TO R NARES-LWS. MOD AMTS OF LIGHT BROWN DRAINAGE. PT ALLOWED ICE CHIPS. PT HAS RLQ PERC DRAIN WITH NO OUTPUT NOTED. LLQ PERC DRAIN WITH MOD AMTS OF LIGHT BROWN PURLULENT DRAINAGE. PT HAS ELIAS IN PLACE WITH 20-30ML HOURLY. +EDEMA NOTED. RUE +2/+3, RESOLVING CELLULITIS, ELEVATED ON PILLOWS. THIGHS REDDENED, RASH TO BUTTOCKS. R BUTTOCKS WOUND WITH XEROFORM DSG IN PLACE. BICARB GTT CONT TO INFUSE AT 125ML/HR. LABS WNL. BLE THIGHS WEEPING/. CALL HANSEN WITHIN REACH.
--- NOTE | 2016-08-12 15:14 | NUR ---
@1100-THIS RN TRAVELED WITH PT TO XRAY FOR GASTROGRAM. PT PREMEDICATED WITH DIALUDID 0.6MG X 1 PRIOR TO TRANSPORT. IV ZOSYN INFUSING. IV LEVO CONT TO INFUSE-UNABLE TO TITRATE AT THIS TIME. IVF CHANGED TO D5NS AT 125ML/HR. PT THEN TRANSPORTED TO CTSCAN OF ABD/PELVIS AND BACK TO ICU ROOM AT 1315. PT MEDICATED WITH DIALUDID 1MG AT THIS TIME. PT STARTED ON IV DIFLUCAN. PERC DRAIN FLUSHED WITH NS. CONT TO MONITOR, CALL HANSEN WITHIN REACH. NEW DSG PLACED TO R BUTTOCK WOUND.
[2016-08-12 16:00] VITALS: BP 100/60
--- NOTE | 2016-08-12 16:53 | PN- General Surgery ---
Subjective Subjective: Follow-up of infected ascites, hypotension We arranged more imaging today with contrast via the NG tube the CT scan shows a leak from the stomach. Overall patient feels better than yesterday her urine output is better her abdominal pain is still there but a little better no shortness of breath no chest pain she still thirsty no nausea no vomiting. Patient does not recall any recent increased intake of NSAIDs, or any unusual meals or drinks. Objective Vital Signs and I&Os I reviewed Vital Signs Date Time Temp Pulse Resp B/P Pulse O2 O2 Flow FiO2 Ox Delivery Rate 08/12 1351 113 100/61 08/12 1200 95 Nasal 2.0L Cannula 08/12 1029 97 Nasal 2.0L Cannula 08/12 0800 97.0 107 18 96/54 96 Nasal 2.0L Cannula 08/12 0800 95 Nasal 2.0L Cannula 08/12 0521 102 97/50 08/12 0334 98 Nasal 3.0L Cannula 08/12 0038 111 99/47 08/12 0000 97.1 112 20 100/50 98 Nasal 3.0L Cannula 08/12 0000 98 Nasal 3.0L Cannula 08/11 2140 118 101/60 08/11 2100 96 Nasal 3.0L Cannula 08/11 2000 98 Nasal 3.0L Cannula I reviewed Intake & Output 08/12 1600 08/12 0800 08/12 0000 08/11 1600 08/11 0800 08/11 0000 Intake Total 1122 1258 1982 2282 178 6864 Output Total 1650 1225 1610 1585 1045 1040 Balance -528 33 372 140 -517 714 Intake, IV 1022 1058 1782 2610 882 0274 Intake, Oral 100 200 200 200 0 Intake, Other 40 10 Number 0 0 0 Bowel Movements Output, 700 500 400 310 10 Drainage Output, 600 036 489 3895 1000 1000 Gastric Drainage Output, Other 10 Output, Stool 0 Output, Urine 350 425 310 75 35 30 Physical Exam: Constitutional: no acute distress conversant awake and alert Eyes: sclera anicteric ENT: Dry mouth Cardiovascular: S1-S2 no murmurs no change in peripheral edema Respiratory: clear to auscultation with normal respiratory effort and no intercostal retractions GI: abdomen soft mildly diffusely tender nondistended Extremities / lymphatics: As before did not evaluate full free range of motion no change in the peripheral edema Skin: no jaundice no rashes warm, nondiaphoretic Psychiatric: mood and affect are appropriate and alert and oriented to person place and time Current Medications: I reviewed Current Medications Sig/Shahla Start time Last Medication Dose Route Stop Time Status Admin Acetaminophen 1,000 MG ONCE ONE 08/11 2215 DC N/A 1 UNIT IV 08/11 2229 Acetaminophen 1,000 MG Q6P PRN 08/07 1630 AC 08/11 N/A 1 UNIT IV 2237 Albuterol Sulfate 3 ML BID 08/05 2200 AC 08/11 INH 2057 Albuterol Sulfate 2 PUF Q4P PRN 07/30 2200 AC 08/07 INH 0914 Benzocaine/Menthol 1 RAYMUNDO Q2P PRN 08/11 2245 AC PO Collagenase 1 DEMETRA DAILY 08/04 1000 AC 08/12 TOP 1350 Dextrose/Sodium 1,000 ML Q8H 08/12 1045 AC 08/12 Chloride IV 1350 Diclofenac Sodium 1 DEMETRA TID PRN 07/30 1145 AC 08/05 TOP 2142 Diphenhydramine HCl 50 MG .STK-MED ONE 08/12 0639 DC IM 08/12 0640 Diphenhydramine HCl 50 MG ONCE ONE 08/11 2230 DC 08/11 IV 08/11 2231 2238 Diphenhydramine HCl 50 MG Q6P PRN 08/07 1630 AC 08/12 IV 1351 Fluconazole 400 MG Q48 08/12 1130 AC 08/12 Sodium Chloride 200 ML IV 1350 Heparin Sodium 5,000 UNIT Q8 08/12 0600 AC 08/12 (Porcine) SC 1351 Hydromorphone HCl 1 MG ONCE ONE 08/12 1245 DC 08/12 IV 08/12 1246 1315 Hydromorphone HCl 0.6 MG ONCE ONE 08/12 1030 DC 08/12 IV 08/12 1031 1051 Hydromorphone HCl 1 MG Q6-PRN PRN 08/11 1530 AC 08/12 IV PUSH 0616 Insulin Human Regular 0 Q6 08/10 1800 AC 08/12 SC 1350 Lidocaine 1 PAT DAILY 07/28 1800 AC 07/28 EXT 2004 Miconazole Nitrate 1 DEMETRA AT BEDTIME 07/29 0130 AC 08/11 VAG 2236 Norepinephrine 4 MG Q8H 08/12 0500 AC 08/12 Sodium Chloride 250 ML IV 1351 Norepinephrine 4 MG Q4H 08/11 1600 DC 08/12 Sodium Chloride 250 ML IV 0038 Nystatin 1 DEMETRA TID PRN 08/12 0730 AC TOP Pantoprazole Sodium 40 MG DAILY 08/11 1802 AC 08/12 IV 1014 Piperacillin Sod/ 2.25 GM Q6H 08/11 1600 AC 08/12 Tazobactam Sod IV 1557 Sodium Chloride 100 ML Sodium Bicarbonate 75 MEQ Q8H 08/11 1215 DC 08/12 Dextrose/Sodium 1,000 ML IV 0015 Chloride Sodium Chloride 500 ML BOLUS ONE 08/11 2200 DC 08/11 IV 08/11 2259 2237 Sodium Chloride 500 ML BOLUS ONE 08/11 1715 DC 08/11 IV 08/11 1814 1744 Sucralfate 1 GM Q6 08/11 1815 AC 08/12 PO 1350 Results Last 48 Hours of Labs: I reviewed Laboratory Tests 08/12 08/12 0530 0000 Chemistry Sodium (137 - 145 mmol/L) 134 L Potassium (3.5 - 5.1 mmol/L) 4.1 Chloride (98 - 107 mmol/L) 103 Carbon Dioxide (22 - 30 mmol/L) 20 L Anion Gap (5 - 16) 11 BUN (7 - 17 mg/dL) 58 H Creatinine (0.5 - 1.0 mg/dL) 2.1 H Estimated GFR (>60 ml/min) 26 L Glucose (65 - 99 mg/dL) 173 H Lactic Acid (0.7 - 2.1 mmol/L) 2.7 H Calcium (8.4 - 10.2 mg/dL) 7.7 L Phosphorus (2.5 - 4.5 mg/dL) 7.8 H Magnesium (1.6 - 2.3 mg/dL) 2.0 Total Bilirubin (0.2 - 1.3 mg/dL) 0.2 AST (14 - 36 U/L) 22 ALT (9 - 52 U/L) 36 Albumin (3.5 - 5.0 g/dL) 1.8 L Hematology CBC w Diff MAN DIFF ORDERED Cancelled WBC (4.8 - 10.8 /CUMM) 9.0 Cancelled RBC (4.20 - 5.40 /CUMM) 3.30 L Cancelled Hgb (12.0 - 16.0 G/DL) 8.6 L Cancelled Hct (37 - 47 %) 27.3 L Cancelled MCV (81.0 - 99.0 FL) 82.7 Cancelled MCH (27.0 - 31.0 PG) 26.2 L Cancelled RDW (11.5 - 14.5 %) 18.4 H Cancelled Plt Count (130 - 400 /CUMM) 211 Cancelled MPV (7.4 - 10.4 FL) 7.4 Cancelled Gran % (42.2 - 75.2 %) 87.7 H Lymphocytes % (20.5 - 51.1 %) 7.5 L Monocytes % (1.7 - 9.3 %) 0.6 L Eosinophils % (0 - 5 %) 4.0 Basophils % (0.0 - 2.0 %) 0.2 Absolute Granulocytes (1.4 - 6.5 /CUMM) 7.9 H Segmented Neutrophils (42.2 - 75.2 %) 76 H Band Neutrophils (0.0 - 5.0 %) 5 Absolute Lymphocytes (1.2 - 3.4 /CUMM) 0.7 L Lymphocytes (20.5 - 51.1 %) 10 L Monocytes (1.7 - 9.3 %) 1 L Absolute Monocytes (0.10 - 0.60 /CUMM) 0.1 L Eosinophils (0 - 5.0 %) 6 H Absolute Eosinophils (0.0 - 0.7 /CUMM) 0.4 Basophils (0.0 - 2.0 %) 1 Absolute Basophils (0.0 - 0.2 /CUMM) 0 Metamyelocytes (0.0 - 1.0 %) 1 Platelet Estimate (ADEQUATE) ADEQUATE Hypochromic-Microcytic 2+ Anisocytosis 1+ PUBS MCHC (33.0 - 37.0 G/DL) 31.7 L Cancelled 08/11 08/11 1220 UNK Chemistry Sodium (137 - 145 mmol/L) 132 L Potassium (3.5 - 5.1 mmol/L) 4.9 Chloride (98 - 107 mmol/L) 99 Carbon Dioxide (22 - 30 mmol/L) 20 L Anion Gap (5 - 16) 13 BUN (7 - 17 mg/dL) 59 H Creatinine (0.5 - 1.0 mg/dL) 2.2 H Estimated GFR (>60 ml/min) 25 L Glucose (65 - 99 mg/dL) 149 H Lactic Acid (0.7 - 2.1 mmol/L) 2.2 H Calcium (8.4 - 10.2 mg/dL) 8.3 L Phosphorus (2.5 - 4.5 mg/dL) 8.5 H Magnesium (1.6 - 2.3 mg/dL) 2.0 Total Bilirubin (0.2 - 1.3 mg/dL) 0.2 AST (14 - 36 U/L) 29 ALT (9 - 52 U/L) 45 Albumin (3.5 - 5.0 g/dL) 1.9 L Coagulation PT (9.4 - 12.5 SEC) 11.3 INR (0.90 - 1.19) 1.08 APTT (25 - 37 SEC) 31 Hematology CBC w Diff MAN DIFF ORDERED WBC (4.8 - 10.8 /CUMM) 19.6 H RBC (4.20 - 5.40 /CUMM) 3.73 L Hgb (12.0 - 16.0 G/DL) 9.8 L Hct (37 - 47 %) 30.8 L MCV (81.0 - 99.0 FL) 82.4 MCH (27.0 - 31.0 PG) 26.3 L RDW (11.5 - 14.5 %) 19.0 H Plt Count (130 - 400 /CUMM) 261 MPV (7.4 - 10.4 FL) 7.3 L Gran % (42.2 - 75.2 %) 91.1 H Lymphocytes % (20.5 - 51.1 %) 4.0 L Monocytes % (1.7 - 9.3 %) 2.6 Eosinophils % (0 - 5 %) 2.3 Basophils % (0.0 - 2.0 %) 0 L Absolute Granulocytes (1.4 - 6.5 /CUMM) 17.8 H Segmented Neutrophils (42.2 - 75.2 %) 88 H Band Neutrophils (0.0 - 5.0 %) 6 H Absolute Lymphocytes (1.2 - 3.4 /CUMM) 0.8 L Lymphocytes (20.5 - 51.1 %) 3 L Monocytes (1.7 - 9.3 %) 3 Absolute Monocytes (0.10 - 0.60 /CUMM) 0.5 Absolute Eosinophils (0.0 - 0.7 /CUMM) 0.4 Absolute Basophils (0.0 - 0.2 /CUMM) 0 Platelet Estimate (ADEQUATE) VERIFIED BY SMEAR Anisocytosis 1+ PUBS MCHC (33.0 - 37.0 G/DL) 31.9 L Other Body Source Fluid WBC (0 - 5 /CUMM) 16564 H Fld Total RBCs Counted (0 /CUMM) 2025 H 08/11 08/11 08/11 UNK 0320 0320 Chemistry Sodium (137 - 145 mmol/L) Cancelled 128 L Potassium (3.5 - 5.1 mmol/L) Cancelled 5.0 Chloride (98 - 107 mmol/L) Cancelled 100 Carbon Dioxide (22 - 30 mmol/L) Cancelled 17 L Anion Gap (5 - 16) Cancelled 10 BUN (7 - 17 mg/dL) Cancelled 56 H Creatinine (0.5 - 1.0 mg/dL) Cancelled 2.3 H Estimated GFR (>60 ml/min) 23 L Glucose (65 - 99 mg/dL) Cancelled 188 H Lactic Acid (0.7 - 2.1 mmol/L) 2.7 H Calcium (8.4 - 10.2 mg/dL) Cancelled 8.6 Phosphorus (2.5 - 4.5 mg/dL) Cancelled 8.5 H Magnesium (1.6 - 2.3 mg/dL) Cancelled 2.0 Total Bilirubin (0.2 - 1.3 mg/dL) Cancelled 0.2 AST (14 - 36 U/L) Cancelled 28 ALT (9 - 52 U/L) Cancelled 45 Lactate Dehydrogenase (313 - 618 U/L) 657 H Total Protein (6.3 - 8.2 g/dL) 4.5 L Albumin (3.5 - 5.0 g/dL) Cancelled 2.0 L Hematology CBC w Diff MAN DIFF ORDERED WBC (4.8 - 10.8 /CUMM) 23.0 H RBC (4.20 - 5.40 /CUMM) 3.96 L Hgb (12.0 - 16.0 G/DL) 10.4 L Hct (37 - 47 %) 32.4 L MCV (81.0 - 99.0 FL) 81.9 MCH (27.0 - 31.0 PG) 26.3 L RDW (11.5 - 14.5 %) 18.4 H Plt Count (130 - 400 /CUMM) 294 MPV (7.4 - 10.4 FL) 7.6 Segmented Neutrophils (42.2 - 75.2 %) 79 H Band Neutrophils (0.0 - 5.0 %) 6 H Lymphocytes (%) 13 L Eosinophils (0 - 5.0 %) 1 Metamyelocytes (0.0 - 1.0 %) 1 Platelet Estimate (ADEQUATE) ADEQUATE Polychromasia 1+ Hypochromic-Microcytic 1+ Poikilocytosis 2+ Anisocytosis 1+ Microcytic Cells 1+ Ovalocytes 1+ Stomatocytes 1+ PUBS MCHC (33.0 - 37.0 G/DL) 32.1 L Other Body Source Fld Total RBCs Counted (%) 100 Fluid Total Protein (g/dL) 2.5 Fluid Albumin (g/dL) 1.2 Fluid LDH (U/L) 63468 Fluid Amylase (U/L) 67 08/11 08/10 08/10 0000 2159 1938 Chemistry Sodium (137 - 145 mmol/L) 132 L Potassium (3.5 - 5.1 mmol/L) 5.2 H Chloride (98 - 107 mmol/L) 100 Carbon Dioxide (22 - 30 mmol/L) 18 L Anion Gap (5 - 16) 14 BUN (7 - 17 mg/dL) 54 H Creatinine (0.5 - 1.0 mg/dL) 1.8 H Estimated GFR (>60 ml/min) 31 L Glucose (65 - 99 mg/dL) 210 H Lactic Acid (0.7 - 2.1 mmol/L) 2.5 H Cancelled 3.4 H Calcium (8.4 - 10.2 mg/dL) 8.3 L Phosphorus (2.5 - 4.5 mg/dL) 8.1 H Magnesium (1.6 - 2.3 mg/dL) 2.0 Total Bilirubin (0.2 - 1.3 mg/dL) 0.4 AST (14 - 36 U/L) 31 ALT (9 - 52 U/L) 44 Albumin (3.5 - 5.0 g/dL) 2.0 L Hematology CBC w Diff MAN DIFF ORDERED WBC (4.8 - 10.8 /CUMM) 29.8 H RBC (4.20 - 5.40 /CUMM) 4.00 L Hgb (12.0 - 16.0 G/DL) 10.5 L Hct (37 - 47 %) 32.8 L MCV (81.0 - 99.0 FL) 82.0 MCH (27.0 - 31.0 PG) 26.2 L RDW (11.5 - 14.5 %) 19.1 H Plt Count (130 - 400 /CUMM) 319 MPV (7.4 - 10.4 FL) 7.9 Gran % (42.2 - 75.2 %) 96.4 H Lymphocytes % (20.5 - 51.1 %) 2.8 L Monocytes % (1.7 - 9.3 %) 0.4 L Eosinophils % (0 - 5 %) 0.4 Basophils % (0.0 - 2.0 %) 0 L Absolute Granulocytes (1.4 - 6.5 /CUMM) 28.7 H Segmented Neutrophils (42.2 - 75.2 %) 82 H Band Neutrophils (0.0 - 5.0 %) 14 H Absolute Lymphocytes (1.2 - 3.4 /CUMM) 0.8 L Lymphocytes (20.5 - 51.1 %) 2 L Monocytes (1.7 - 9.3 %) 2 Absolute Monocytes (0.10 - 0.60 /CUMM) 0.1 L Absolute Eosinophils (0.0 - 0.7 /CUMM) 0.1 Absolute Basophils (0.0 - 0.2 /CUMM) 0 Hypochromic-Microcytic 1+ Poikilocytosis 1+ Stomatocytes 1+ PUBS MCHC (33.0 - 37.0 G/DL) 32.0 L Assessment/Plan Assessment/Plan Studies also reviewed the microbiology which is consistent with enteric diaz Impression is gastric perforation with leak, question possibly from a stress ulcer, I reviewed the imaging today on PACS the CT scan and the upper GI CT scan shows some leakage of Gastrografin superiorly I also went over with the radiologist's it's not clear exactly where it's coming from our the size of the hole my sense is that it's not a very large hole but on the other hand the stomach is still not decompressed even though she has an NG tube with copious thin liquid output, there is a mass effect inside the stomach whatever it is mostly involved with the wall maybe there is a focal area of necrosis. She has improved relatively with respect to her hemodynamics, levophed has been titrated down significantly she's making good urine appearing creatinine has improved her white blood cell count has improved a lot she's less acidotic but I feel that this situation is to be controlled better so we need to go to the operating room , washout of peritoneum evaluate the perforation I explained to her that there is a possibility of a gastrectomy and feeding tube jejunostomy. Risks also discussed our efforts during surgery to avoid inadvertent injury to surrounding surrounding structures such as bowel and blood vessels and spleen. We also discussed the potential risks, benefits and alternatives to the procedure and surgery in general, issues that included but were not limited to, anesthetic risks hemorrhage requiring transfusion, the risk of transfusion itself, infection, heart attack, stroke, . I explained the importance of stopping smoking as it pertains to surgery, especially with general anesthesia and healing. Problem List: 1. Gastric perforation 2. Peritonitis 3. Hypotension 4. Pelvic abscess 5. Oliguria 6. Fracture of right inferior pubic ramus 7. Abdominal pain 8. Diabetes mellitus Core Measures/Miscellaneous Venous Thromboembolism VTE Risk Factors: Acute medical illness VTE Contraindications: No Contraindications VTE Diagnosis: No VTE Type: NONE VTE Confirmed by (Test): NONE Beta Jimmy Is Beta Jimmy a Home Med? No Antibiotics Is Patient on Antibiotics? No
--- NOTE | 2016-08-12 17:22 | NUR ---
@4013-THIS RN TRAVELED WITH PT TO OR. PT AWARE OF POC. REPORT GIVEN TO ANESTHESIA AND OR NURSE. LEVO TITRATED TO 3MCG/MIN PRIOR TO TRANSPORT DOWN TO OR. IV ZOSYN INFUSING ORD. WILL REASSESS UPON RETURN TO UNIT.
[2016-08-12 23:38] VITALS: BP 100/40
--- NOTE | 2016-08-12 23:51 | NUR ---
pt came from or with no issues.sedated and not following commands. pupils reactive.+pp.gen edema (right arm>than left).sbp 90-100's and levophed cont via central line.samy intact. ivf and abx cont via central line.ett tube intact. ventilated with sats >95%.lung sounds diminished.hob elevated. ngt to lws.jtube clamped. percutaneous drain x2 intact. ryan draining mod sanguinous amt.yao patent.
[2016-08-13] VITALS: BP 102/44
--- NOTE | 2016-08-13 03:18 | RADIOLOGY REPORT ---
EXAMINATION: XR PORTABLE CHEST CLINICAL INFORMATION: Confirm position of endotracheal tube. COMPARISON: Chest radiograph 08/08/2016. TECHNIQUE: Portable AP view of the chest was obtained. FINDINGS: An endotracheal tube has been placed and its distal tip is located 4.4 cm from the az. An enteric tube extends beyond the [id number]-[id number]-[id number] of this examination. There is a left subclavian central line with its tip located at the cavoatrial junction. Lung volumes are low and there is central peribronchial thickening. Small bilateral pleural effusions and bibasilar subsegmental atelectasis. No new consolidative disease. No pneumothorax. IMPRESSION: An endotracheal tube has been placed and its tip is located 4.4 cm above the az. Otherwise no substantial change from prior imaging. Lung volumes are low and there is bibasilar subsegmental atelectasis and peribronchial thickening.
[2016-08-13 05:13] LABS: ABSOLUTE BASOPHIL COUNT 0 /CUMM (0.0-0.2); ABSOLUTE EOSINOPHIL COUNT 0.4 /CUMM (0.0-0.7); ABSOLUTE GRANULOCYTE CT 13.5 /CUMM (1.4-6.5); ABSOLUTE LYMPH COUNT 0.6 /CUMM (1.2-3.4); ABSOLUTE MONOCYTE COUNT 0.2 /CUMM (0.10-0.60); BASOPHIL % 0.2 % (0.0-2.0); EOSINOPHIL % 2.6 % (0-5); GRANULOCYTE % 91.7 % (42.2-75.2); MEAN CORPUSCULAR HGB 26.6 PG (27.0-31.0); MEAN CORPUSCULAR HGB CONC 32.4 G/DL (33.0-37.0); MEAN CORPUSCULAR VOLUME 82.3 FL (81.0-99.0); MEAN PLATELET VOLUME 7.4 FL (7.4-10.4); PLATELET COUNT 181 /CUMM (130-400); RBC DISTRIBUTION WIDTH 17.5 % (11.5-14.5); RED BLOOD CELL CT 3.41 /CUMM (4.20-5.40)
[2016-08-13 05:22] LABS: WHITE BLOOD CELL COUNT 14.8 /CUMM (4.8-10.8)
--- NOTE | 2016-08-13 05:41 | PN- General Surgery ---
See Addendum Subjective Subjective: Postop day 1 status post exploratory laparotomy and partial gastrectomy due to gangrenous stomach secondary to ischemia. Patient intubated, on fentanyl drip, levo drip, zosyn. No acute events overnight. Review of Systems: Unable to assess Objective Vital Signs and I&Os Vital Signs Date Time Temp Pulse Resp B/P Pulse O2 O2 Flow FiO2 Ox Delivery Rate 08/13 0429 109 94/43 08/13 0400 99 Ventilator 40% 08/13 0306 40 08/13 0104 40 08/13 0000 100 Ventilator 40% 08/13 0000 97.8 108 14 102/44 99 Ventilator 40% 08/12 2338 97.8 108 18 100/40 98 Ventilator 40% 08/12 2333 108 18 98/41 08/12 2300 98 Ventilator 40% 08/12 2200 40 08/12 1600 97.5 108 12 100/60 96 Nasal 2.0L Cannula 08/12 1600 95 Nasal 2.0L Cannula 08/12 1351 113 100/61 08/12 1200 95 Nasal 2.0L Cannula 08/12 1029 97 Nasal 2.0L Cannula 08/12 0800 97.0 107 18 96/54 96 Nasal 2.0L Cannula 08/12 0800 95 Nasal 2.0L Cannula Intake & Output 08/13 0800 08/13 0000 08/12 1600 08/12 0800 08/12 0000 08/11 1600 Intake Total 521 1122 1258 1982 1725 Output Total 420 1650 1225 1610 1585 Balance 101 -528 33 372 140 Intake, IV 521 1022 1058 1782 1485 Intake, Oral 100 200 200 200 Intake, Other 40 Number 0 0 Bowel Movements Output, 80 700 500 400 310 Drainage Output, 250 600 978 027 4919 Gastric Drainage Output, Stool 0 Output, Urine 90 350 425 310 75 Physical Exam: Patient intubated HEENT: Atraumatic, Neck: Supple, no lymphadenopathy Heart: Mildly tachycardic, regular rate Respiratory: No respiratory distress, intubated on mechanical ventilation, limited exam, lungs clear Abdomen: G-tube in place. Minimal distention. Dressings with mild serous sanguinous staining at the incision site and at the BLANCA drain site left side of the upper abdomen. Left-sided BLANCA drain to bulb suction with approximately 50 mL serous sanguinous fluid Lower abdominal peritoneal drains x2 in place. Scant amount of cloudy white fluid. Jejunal feeding tube in place- scant serous sanguinous drainage. Extremities: 2+ pitting bilateral lower extremity edema, Skin: Warm and dry, no rash on exposed skin Orta catheter output approximate 400 overnight NG tube to low wall suction-minimal dark gastric secretions noted in tube. No significant output. Left side BLANCA drain 625cc output overnight Left-sided lower peritoneal drain 90 mL output overnight Right-sided lower peritoneal drain, 0 output Results Last 48 Hours of Labs: Laboratory Tests 08/13 08/12 0445 0530 Chemistry Sodium (137 - 145 mmol/L) 136 L 134 L Potassium (3.5 - 5.1 mmol/L) 3.6 4.1 Chloride (98 - 107 mmol/L) 106 103 Carbon Dioxide (22 - 30 mmol/L) 19 L 20 L Anion Gap (5 - 16) 12 11 BUN (7 - 17 mg/dL) 51 H 58 H Creatinine (0.5 - 1.0 mg/dL) 1.7 H 2.1 H Estimated GFR (>60 ml/min) 33 L 26 L Glucose (65 - 99 mg/dL) 202 H 173 H Lactic Acid (0.7 - 2.1 mmol/L) 2.7 H Calcium (8.4 - 10.2 mg/dL) 7.3 L 7.7 L Phosphorus (2.5 - 4.5 mg/dL) 6.1 H 7.8 H Magnesium (1.6 - 2.3 mg/dL) 1.8 2.0 Total Bilirubin (0.2 - 1.3 mg/dL) 0.3 0.2 AST (14 - 36 U/L) 14 22 ALT (9 - 52 U/L) 34 36 Albumin (3.5 - 5.0 g/dL) 1.7 L 1.8 L Hematology CBC w Diff MAN DIFF ORDERED MAN DIFF ORDERED WBC (4.8 - 10.8 /CUMM) 14.8 H 9.0 RBC (4.20 - 5.40 /CUMM) 3.41 L 3.30 L Hgb (12.0 - 16.0 G/DL) 9.1 L 8.6 L Hct (37 - 47 %) 28.0 L 27.3 L MCV (81.0 - 99.0 FL) 82.3 82.7 MCH (27.0 - 31.0 PG) 26.6 L 26.2 L RDW (11.5 - 14.5 %) 17.5 H 18.4 H Plt Count (130 - 400 /CUMM) 181 211 MPV (7.4 - 10.4 FL) 7.4 7.4 Gran % (42.2 - 75.2 %) 91.7 H 87.7 H Lymphocytes % (20.5 - 51.1 %) 3.9 L 7.5 L Monocytes % (1.7 - 9.3 %) 1.6 L 0.6 L Eosinophils % (0 - 5 %) 2.6 4.0 Basophils % (0.0 - 2.0 %) 0.2 0.2 Absolute Granulocytes (1.4 - 6.5 /CUMM) 13.5 H 7.9 H Segmented Neutrophils (42.2 - 75.2 %) 80 H 76 H Band Neutrophils (0.0 - 5.0 %) 5 5 Absolute Lymphocytes (1.2 - 3.4 /CUMM) 0.6 L 0.7 L Lymphocytes (20.5 - 51.1 %) 6 L 10 L Monocytes (1.7 - 9.3 %) 2 1 L Absolute Monocytes (0.10 - 0.60 /CUMM) 0.2 0.1 L Eosinophils (0 - 5.0 %) 6 H 6 H Absolute Eosinophils (0.0 - 0.7 /CUMM) 0.4 0.4 Basophils (0.0 - 2.0 %) 1 1 Absolute Basophils (0.0 - 0.2 /CUMM) 0 0 Metamyelocytes (0.0 - 1.0 %) 1 Platelet Estimate (ADEQUATE) ADEQUATE ADEQUATE Polychromasia 1+ Hypochromic-Microcytic 1+ 2+ Poikilocytosis 1+ Basophilic Stippling SLIGHT Anisocytosis 1+ Ovalocytes 1+ Stomatocytes FEW PUBS MCHC (33.0 - 37.0 G/DL) 32.4 L 31.7 L Other Body Source Fld Total RBCs Counted (%) 100 08/12 08/11 0000 1220 Chemistry Sodium (137 - 145 mmol/L) 132 L Potassium (3.5 - 5.1 mmol/L) 4.9 Chloride (98 - 107 mmol/L) 99 Carbon Dioxide (22 - 30 mmol/L) 20 L Anion Gap (5 - 16) 13 BUN (7 - 17 mg/dL) 59 H Creatinine (0.5 - 1.0 mg/dL) 2.2 H Estimated GFR (>60 ml/min) 25 L Glucose (65 - 99 mg/dL) 149 H Lactic Acid (0.7 - 2.1 mmol/L) 2.2 H Calcium (8.4 - 10.2 mg/dL) 8.3 L Phosphorus (2.5 - 4.5 mg/dL) 8.5 H Magnesium (1.6 - 2.3 mg/dL) 2.0 Total Bilirubin (0.2 - 1.3 mg/dL) 0.2 AST (14 - 36 U/L) 29 ALT (9 - 52 U/L) 45 Albumin (3.5 - 5.0 g/dL) 1.9 L Coagulation PT (9.4 - 12.5 SEC) 11.3 INR (0.90 - 1.19) 1.08 APTT (25 - 37 SEC) 31 Hematology CBC w Diff Cancelled MAN DIFF ORDERED WBC (4.8 - 10.8 /CUMM) Cancelled 19.6 H RBC (4.20 - 5.40 /CUMM) Cancelled 3.73 L Hgb (12.0 - 16.0 G/DL) Cancelled 9.8 L Hct (37 - 47 %) Cancelled 30.8 L MCV (81.0 - 99.0 FL) Cancelled 82.4 MCH (27.0 - 31.0 PG) Cancelled 26.3 L RDW (11.5 - 14.5 %) Cancelled 19.0 H Plt Count (130 - 400 /CUMM) Cancelled 261 MPV (7.4 - 10.4 FL) Cancelled 7.3 L Gran % (42.2 - 75.2 %) 91.1 H Lymphocytes % (20.5 - 51.1 %) 4.0 L Monocytes % (1.7 - 9.3 %) 2.6 Eosinophils % (0 - 5 %) 2.3 Basophils % (0.0 - 2.0 %) 0 L Absolute Granulocytes (1.4 - 6.5 /CUMM) 17.8 H Segmented Neutrophils (42.2 - 75.2 %) 88 H Band Neutrophils (0.0 - 5.0 %) 6 H Absolute Lymphocytes (1.2 - 3.4 /CUMM) 0.8 L Lymphocytes (20.5 - 51.1 %) 3 L Monocytes (1.7 - 9.3 %) 3 Absolute Monocytes (0.10 - 0.60 /CUMM) 0.5 Absolute Eosinophils (0.0 - 0.7 /CUMM) 0.4 Absolute Basophils (0.0 - 0.2 /CUMM) 0 Platelet Estimate (ADEQUATE) VERIFIED BY SMEAR Anisocytosis 1+ PUBS MCHC (33.0 - 37.0 G/DL) Cancelled 31.9 L 08/11 08/11 UNK UNK Chemistry Sodium Cancelled Potassium Cancelled Chloride Cancelled Carbon Dioxide Cancelled Anion Gap Cancelled BUN Cancelled Creatinine Cancelled Glucose Cancelled Calcium Cancelled Phosphorus Cancelled Magnesium Cancelled Total Bilirubin Cancelled AST Cancelled ALT Cancelled Albumin Cancelled Hematology Lymphocytes (%) Other Body Source Fluid WBC (0 - 5 /CUMM) 75739 H Fld Total RBCs Counted (0 /CUMM) 2025 H Fluid Total Protein (g/dL) 2.5 Fluid Albumin (g/dL) 1.2 Fluid LDH (U/L) 22161 Fluid Amylase (U/L) 67 Assessment/Plan Assessment/Plan Postop day 1 status post exploratory laparoscopy with partial gastrectomy secondary to gangrenous stomach, likely ischemic as well as spontaneous bacterial peritonitis, sepsis, on pressors. Patient intubated, remains critical -Monitor drain output, expecting large output from BLANCA drain -Continue NG tube to low wall suction, nothing by mouth -Monitor for return of bowel function -Dressing changes tomorrow -Jejunal feeding tube, no tube feedings yet -Continue antibiotics, Zosyn per ID -DVT prophylaxis on heparin -Continue pressors and medical management per medical team Core Measures/Miscellaneous Venous Thromboembolism VTE Risk Factors: Acute medical illness VTE Contraindications: No Contraindications VTE Diagnosis: No VTE Type: NONE VTE Confirmed by (Test): NONE Beta Jimmy Is Beta Jimmy a Home Med? No Antibiotics Is Patient on Antibiotics? No
--- NOTE | 2016-08-13 06:42 | NUR ---
PT REMAINS INTUBATED W/ 40% FIO2, PULSE OX 100. LUNGS CLEAR BUT DIMINISHED. PT ON FENTANYL FOR PAIN MANAGEMENT/SEDATION. PT ON 37.5MCG/HR. PT DROWSY EASILY AROUSABLE AND FOLLOWS COMMANDS. PT LEVOPHED TITRATED DOWN TO 7 MCG/MIN. BP 90S-100S. PT ABD HAS DRESSING TO UPPER MIDABD AREA. DRESSING INTACT. JTUBE IN PLACE WITH SEROSANGOUS STAINING TO DRESSING. BLANCA DRAIN TO LEFT MIDABD AREA DRAINING LARGE AMOUNT OF SEROSANGEOUS FLUID. PERCUTANEOUS DRAINS IN PLACE. RIGHT DRAIN HAS NO DREAINAGE DESPITE FLUSHING. PT CVP CURRENTLY 4. PT HAS YELLOW URINE WITH SEDIMENT. PT EDEMATOUS. CREAM APPLIED TO RASH AREA IN GROIN/THIGH AREA. SANTYL DRESSING W/ XEROFORM APPLIED TO COCCYX. PT TOLERATING ALL CARE WELL. PER MD NGT NOT MANIPULATED AND SULFACARAFATE ON HOLD. NGT WITH SCANT BLOODY DRAINAGE
--- NOTE | 2016-08-13 06:51 | PN- Resident CRCU ---
Subjective HPI/CRCU Issues: Pt had partial gastrectomy for necrotic stomach. As she has put out albumin rich fluid, she received 1X50 gm albumin last night. J tube inserted. Currently she is draining bloody fluid in both the left pelvis drain and the NG. She is sedated with fentanyl at 37.5 mcg/hr, and on levophed at 7 mcg/min. She remains intubated, breathing over the vent, with settings of 12/550/40%/5 Over the past 24 hrs Max temp 97.8 HR 106-115 RR 12-18 Systolic BP 89-112 Diastolic BP 41-69 CVP 4-8 BS 240,230 + 2697 - 710 yao - 850 NG - 790 from left pelvis drain - 0 from RIGHT pelvis drain - 700 left pelvis drain Labs reviewed, wbc 9 to 14.8 (5 bands), hb 8.6 to 9.1, pl 261 --> 211 --> 181, na 134 to 136, bicarb 20 to 19, bun/cr 58/2.1 to 51/1.7. K 4.1 to 3.6, repleted with kcl, alb 1.8 to 1.7. Objective Vital Signs & I&O Last 8 Hrs of Vitals and I&O: Intake & Output 08/13 1600 08/13 0800 08/13 0000 Intake Total 1054 521 Output Total 1065 420 Balance -11 101 Intake, IV 1054 521 Intake, Oral 0 Output, 715 80 Drainage Output, 0 250 Gastric Drainage Output, Other 0 Output, Urine 350 90 Patient 119.947 kg Weight Laboratory Tests 08/13 0445 Chemistry Sodium (137 - 145 mmol/L) 136 L Potassium (3.5 - 5.1 mmol/L) 3.6 Chloride (98 - 107 mmol/L) 106 Carbon Dioxide (22 - 30 mmol/L) 19 L Anion Gap (5 - 16) 12 BUN (7 - 17 mg/dL) 51 H Creatinine (0.5 - 1.0 mg/dL) 1.7 H Estimated GFR (>60 ml/min) 33 L Glucose (65 - 99 mg/dL) 202 H Calcium (8.4 - 10.2 mg/dL) 7.3 L Phosphorus (2.5 - 4.5 mg/dL) 6.1 H Magnesium (1.6 - 2.3 mg/dL) 1.8 Total Bilirubin (0.2 - 1.3 mg/dL) 0.3 AST (14 - 36 U/L) 14 ALT (9 - 52 U/L) 34 Albumin (3.5 - 5.0 g/dL) 1.7 L Hematology CBC w Diff MAN DIFF ORDERED WBC (4.8 - 10.8 /CUMM) 14.8 H RBC (4.20 - 5.40 /CUMM) 3.41 L Hgb (12.0 - 16.0 G/DL) 9.1 L Hct (37 - 47 %) 28.0 L MCV (81.0 - 99.0 FL) 82.3 MCH (27.0 - 31.0 PG) 26.6 L RDW (11.5 - 14.5 %) 17.5 H Plt Count (130 - 400 /CUMM) 181 MPV (7.4 - 10.4 FL) 7.4 Gran % (42.2 - 75.2 %) 91.7 H Lymphocytes % (20.5 - 51.1 %) 3.9 L Monocytes % (1.7 - 9.3 %) 1.6 L Eosinophils % (0 - 5 %) 2.6 Basophils % (0.0 - 2.0 %) 0.2 Absolute Granulocytes (1.4 - 6.5 /CUMM) 13.5 H Segmented Neutrophils (42.2 - 75.2 %) 80 H Band Neutrophils (0.0 - 5.0 %) 5 Absolute Lymphocytes (1.2 - 3.4 /CUMM) 0.6 L Lymphocytes (20.5 - 51.1 %) 6 L Monocytes (1.7 - 9.3 %) 2 Absolute Monocytes (0.10 - 0.60 /CUMM) 0.2 Eosinophils (0 - 5.0 %) 6 H Absolute Eosinophils (0.0 - 0.7 /CUMM) 0.4 Basophils (0.0 - 2.0 %) 1 Absolute Basophils (0.0 - 0.2 /CUMM) 0 Platelet Estimate (ADEQUATE) ADEQUATE Polychromasia 1+ Hypochromic-Microcytic 1+ Poikilocytosis 1+ Basophilic Stippling SLIGHT Ovalocytes 1+ Stomatocytes FEW PUBS MCHC (33.0 - 37.0 G/DL) 32.4 L Other Body Source Fld Total RBCs Counted (%) 100 Vital Signs Date Time Temp Pulse Resp B/P Pulse O2 O2 Flow FiO2 Ox Delivery Rate 08/13 0625 40 08/13 0429 109 94/43 08/13 0400 99 Ventilator 40% 08/13 0306 40 08/13 0104 40 08/13 0000 100 Ventilator 40% 08/13 0000 97.8 108 14 102/44 99 Ventilator 40% 08/12 2338 97.8 108 18 100/40 98 Ventilator 40% 08/12 2333 108 18 98/41 08/12 2300 98 Ventilator 40% 08/12 2200 40 08/12 1600 97.5 108 12 100/60 96 Nasal 2.0L Cannula 08/12 1600 95 Nasal 2.0L Cannula 08/12 1351 113 100/61 08/12 1200 95 Nasal 2.0L Cannula 08/12 1029 97 Nasal 2.0L Cannula Exam General Appearance: sedated, intubated Respiratory: normal breath sounds Cardiovascular: tachycardia Gastrointestinal: soft Current Medications: Current Medications Sig/Shahla Start time Last Medication Dose Route Stop Time Status Admin Acetaminophen 1,000 MG Q6P PRN 08/07 1630 AC 08/11 N/A 1 UNIT IV 2237 Albumin Human 50 GM ONCE ONE 08/12 1945 DC IV 08/12 1946 Albuterol Sulfate 3 ML BID 08/05 2200 AC 08/11 INH 2057 Albuterol Sulfate 2 PUF Q4P PRN 07/30 2200 AC 08/07 INH 0914 Benzocaine/Menthol 1 RAYMUNDO Q2P PRN 08/11 2245 AC PO Collagenase 1 DEMETRA DAILY 08/04 1000 AC 08/13 TOP 0628 Dextrose/Sodium 1,000 ML Q8H 08/12 1045 AC 08/12 Chloride IV 2321 Diclofenac Sodium 1 DEMETRA TID PRN 07/30 1145 AC 08/05 TOP 2142 Diphenhydramine HCl 50 MG .STK-MED ONE 08/12 1346 DC IM 08/12 1347 Diphenhydramine HCl 50 MG Q6P PRN 08/07 1630 AC 08/12 IV 1351 Fentanyl Citrate 1,000 MCG Q24H 08/13 0015 AC 08/13 Dextrose/Water 250 ML IV 0131 Fentanyl Citrate 500 MCG .STK-MED ONE 08/12 1634 DC IM 08/12 1635 Fluconazole 400 MG Q48 08/12 1130 AC 08/12 Sodium Chloride 200 ML IV 1350 Heparin Sodium 5,000 UNIT Q8 08/12 0600 AC 08/13 (Porcine) SC 0625 Hydromorphone HCl 1 MG ONCE ONE 08/12 1245 DC 08/12 IV 08/12 1246 1315 Hydromorphone HCl 0.6 MG ONCE ONE 08/12 1030 DC 08/12 IV 08/12 1031 1051 Hydromorphone HCl 1 MG Q6-PRN PRN 08/11 1530 DC 08/12 IV PUSH 0616 Insulin Human Regular 0 Q6 08/10 1800 AC 08/13 SC 0624 Lidocaine 1 PAT DAILY 07/28 1800 AC 07/28 EXT 2004 Magnesium Sulfate 1 GM ONCE ONE 08/13 0730 AC Dextrose/Water 100 ML IV 08/13 1129 Magnesium Sulfate 1 GM ONCE ONE 08/13 0115 CAN Dextrose/Water 100 ML IV 08/13 0214 Miconazole Nitrate 1 DEMETRA AT BEDTIME 07/29 0130 AC 08/11 VAG 2236 Midazolam HCl 5 MG .STK-MED ONE 08/12 1633 DC IM 08/12 1634 Norepinephrine 4 MG Q8H 08/12 0500 AC 08/13 Sodium Chloride 250 ML IV 0429 Nystatin 1 DEMETRA TID PRN 08/12 0730 AC TOP Ondansetron HCl 4 MG .STK-MED ONE 08/12 1634 DC IM 08/12 1635 Pantoprazole Sodium 40 MG DAILY 08/11 1802 AC 08/12 IV 1014 Piperacillin Sod/ 2.25 GM Q6H 08/11 1600 AC 08/13 Tazobactam Sod IV 0429 Sodium Chloride 100 ML Potassium Chloride 20 MEQ Q1H 08/13 0700 DC 08/13 IV 08/13 0801 0818 Potassium Chloride 40 MEQ ONCE ONE 08/13 0645 CAN PO 08/13 0646 Potassium Chloride 20 MEQ ONCE ONE 08/13 0115 CAN PO 08/13 0116 Sodium Bicarbonate 75 MEQ Q8H 08/11 1215 DC 08/12 Dextrose/Sodium 1,000 ML IV 0015 Chloride Sucralfate 1 GM Q6 08/11 1815 AC 08/12 PO 1350 Impression/Plan Impression/Problem List Impression: 40-year-old lady with a PMH of diabetes, previous right-sided hemorrhagic pleural effusion S/P Pleurx catheter, lytic therapy 2, previous MSSA sepsis likely secondary to pro-line catheter, previous necrotizing fasciitis of the perineum, left pararenal abscess, osteomyelitis of pubic bone, polysubstance abuse, depression, opiate dependence who presented with complaints of right-sided hip pain, admitted to , found to have pelvic abscess, that was drained by Dr. Sam on 08/01/16. Post procedure, she was hypotensive and was transferred to ICU. She received levophed for 1 day, subsequently her BP was stable and pt was transferred back to . The pt was again hypotensive, and lethargic, and was transferred to ICU. She again was on levophed for a couple of days with BP stable without pressors, and was transferred back to . For the third time, she was again hypotensive requiring another ICU transfer. It has been noted that her BP drops when she receives dilaudid. She was placed on levophed for blood pressure support. The CT findings was concerning for acute abdomen due to perforation vs ileus vs obstruction (tiny amount of free air similar to prior imaging, ?perforation gastric ulcer, gastric pneumatosis, diffusely tender abdomen, no bowel sounds heard, large amount of NG tube output bright yellow --> muddy green --> brown). Her lactic acid elevated up to 2.7, with poor UO. With IVF, her UO improved. There was fluid collection in the left pelvis, that was drained by Dr. Dunaway and put out cloudy yellow --> brown fluid collection in the pelvis (similar in color and consistency to NG tube fluid), most likely representing infected ascitic fluid, consistent with peritonitis. We were concerned for perforation in the stomach due to image findings of gastric pneumatosis. Gastrograffin studies done and showed leakage of contrast out of the stomach. Pt was taken to OR on 08/12/[address] Trammell for exploratory laparotomy with partial gastrectomy for gangrenous stomach and J tube insertion. There was no perforation found, but seeping of fluid through the gangrenous wall into the peritoneal space is entirely possible causing peritonitis. The etiology of the the gangrene is unknown, could be cocaine? vasopressors? hypotension? Her other issues this admission include right upper extremity swelling (due to fall) that has now improved, with ortho following. She also developed BROOKLYNN most likely multifactorial in nature (prerenal and ATN) - insults including hypotension, contrast, vancomycin, with nephrology following. Lines: BLANCA drain d2 A line d2 J tube d2 Intubated d2 Restrains UE d2 Yao Proline (08/07/16) NG tube (08/10/16) Right pelvis catheter (08/01/16) Left pelvis catheter (08/11/16) Respiratory * Intubated * ABG today and tomorrow to adjust vent settings Cardiovascular # Hypotension * Continue pressure support with levophed, goal MAP > 65 * D5NS at 75 mL per hour, will consider bicarb drip once bicarb < 18 ID # Pelvic abscess sp IR drainage (right 08/01 and left 08/11) # Peritonitis due to gangrenous stomach (due to ischemia..cocaine? gastroparesis ? pressors?) * Oxacillin started to cover MSSA on 08/01, discontinued on 08/10/16. Zosyn started on 08/10/16 to cover pseudomonas. Fluconazole 400 IV q8 started on 08/12 for yeast in ascitic fluid. Zosyn discontinued and meropenem started on 08/13. * 08/11: [place] [address], many enteroccocus, few gram positive rods, and budding yeast. F/U cx * The tube should be open to external gravity drainage via drainage bag. Tube should be flushed Q shift with 10 mL normal saline. Strict output should be measured, not including these flushes. # S/P partial gastrectomy for gangrenous stomach, with J tube * Tube feeding as per surgery and nutrition (will place consult when pt can start tube feeding) * Continue IV protonix and sucralfate * Appreciate surgery input * NG tube not to be used, just using for drainage. * PO meds have been discontinued including lexapro, haldol, lyrica, na bicarb, senna, docusate, tylenol, simethicone. These meds would need to be reordered once pt can eat. # Necrotic decubits ulcer - Excised at bedside 08/10 - Not likely to be source of infection # Right shoulder pain with decreased passive and active ROM (improving) # Right elbow swelling (improving) - Xray and US obtained * Refuses MRI unless done under anesthesia * Appreciate Ortho (Dr. Schulz) input # The scalp lesion popped 08/02 PM, with purulent drainage noted - Alopecia noted Metabolic # Acute kidney injury * Continue to follow kidney functions * Appreciate nephro input # Hyponatremia * Continue to follow sodium level * Appreciate nephro input # Hyperkalemia * Continue to monitor Psych # Depression # Hx of drug abuse * On the W-10 and the discharge instructions, please ask the receiving facility/ ECF to call and make an intake appointment at [facility], [address] [place] [address] when her discharge date is known, . * Cannot go home with proline, must go to rehab # Agitation * IV benadryl PRN Endocrine # Diabetes mellitus * Novolog tidac/qhs * Levemir 60 bid ON HOLD,consider restarting at lower dose * Watch blood sugar closely * Consider endo consult Alimentary * NPO Skin # Decubitus ulcer * Wound consult with Dr. English appreciated * Consulted surgery, necrotic patch excised at bedside, no deep tracking or necrosis or fasciitis noted * Consider rectal tube placement Diet: NPO (intubated) , tube feeding as per surgery and nutrition DVT ppx: alps and heparin FC Consults: ID, surgery, renal, psych, ortho, PT, wound, nutrition Labs: ICU critically ill , cbc for leukocytosis, LA for lactic acidosis Problem List: 1. Gastric perforation 2. Peritonitis Pain Ratin Tomorrow's Labs & Rationales: ICU critically ill , cbc for leukocytosis, LA for lactic acidosis Plan DVT/Prophylaxis: mechanical, pharmacological
[2016-08-13 08:00] VITALS: BP 100/52
--- NOTE | 2016-08-13 10:18 | PN- Nephrology ---
Assessment/Plan Assessment: RENAL ISSUES Acute kidney injury: Improved partially improved renal status today with improvement in oliguria and slight improvement in creatinine level. I suspect she is along the spectrum between a prerenal azotemia and ATN. Massive anasarca/edema: Diuretic should be held until hemodynamics improve. Would lower IVFs to a maintenance rate. Metabolic acidosis: Stable. I suspect this is secondary to renal failure & lactic acidosis. No need bicarb gtt currently. 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 Suggestion: Would lower D5NS to 75 cc/hr Hold diuretics until hemodynamics improve Subjective Subjective: 24 hr events noted was brought back to OR for ongoing sepsis with pneumatosis of gastric wall, s/p 2/3 partial gastrectomy & washout Currently intubated remains on levophed & hypotensive cr improved to 1.7 UO was 300 cc/shift yesterday but picking up this am pt unable to provide any history as sedated Review of Systems: sedated, and unable to obtain Objective Vital Signs and I&Os Vital Signs Date Time Temp Pulse Resp B/P Pulse O2 O2 Flow FiO2 Ox Delivery Rate 08/13 0920 40 08/13 0800 97.9 104 14 100/52 100 Ventilator 40% 08/13 0800 100 Ventilator 40% 08/13 0625 40 08/13 0429 109 94/43 08/13 0400 99 Ventilator 40% 08/13 0306 40 08/13 0104 40 08/13 0000 100 Ventilator 40% 08/13 0000 97.8 108 14 102/44 99 Ventilator 40% 08/12 2338 97.8 108 18 100/40 98 Ventilator 40% 08/12 2333 108 18 98/41 08/12 2300 98 Ventilator 40% 08/12 2200 40 08/12 1600 97.5 108 12 100/60 96 Nasal 2.0L Cannula 08/12 1600 95 Nasal 2.0L Cannula 08/12 1351 113 100/61 08/12 1200 95 Nasal 2.0L Cannula 08/12 1029 97 Nasal 2.0L Cannula Intake & Output 08/13 0400 08/12 1600 08/12 0400 08/11 0400 Intake Total 6864 459 7033 1982 2253 1754 Output Total 9805 991 4167 1610 2630 1040 Balance -11 101 -495 372 -377 714 Intake, IV 9242 926 4598 1781 2012 1744 Intake, Oral 0 300 200 200 0 Intake, Other 40 10 Number 0 0 0 Bowel Movements Output, 830 75 0201 400 320 Drainage Output, 0 250 935 661 0685 1000 Gastric Drainage Output, Other 0 10 Output, Stool 0 Output, Urine 350 90 775 310 110 30 Patient 264 lb Weight Physical Exam: General: intubated/sedated HEENT: mucosa dry Neck: negative for EBONY, JVD CV:tachy chest: +tunnelled central line Pulm: CTAB, no rales Abd: +BLANCA drain, serosanguis. +percutaneous drain Lower Ext: 2+ edema. feet cool back: +sacral edema Upper Ext: no AVFs or AVGs Neuro: neg tremor, asterixis : +yao catheter Current Medications: Current Medications Sig/Shahla Start time Last Medication Dose Route Stop Time Status Admin Acetaminophen 1,000 MG Q6P PRN 08/07 1630 08/11 N/A 1 UNIT IV 2237 Albumin Human 50 GM ONCE ONE 08/12 1945 DC IV 08/12 1946 Albuterol Sulfate 3 ML BID 08/05 2200 AC 08/13 INH 0914 Albuterol Sulfate 2 PUF Q4P PRN 07/30 2200 AC 08/07 INH 0914 Benzocaine/Menthol 1 RAYMUNDO Q2P PRN 08/11 2245 AC PO Collagenase 1 DEMETRA DAILY 08/04 1000 AC 08/13 TOP 0628 Dextrose/Sodium 1,000 ML Q8H 08/12 1045 AC 08/12 Chloride IV 2321 Diclofenac Sodium 1 DEMETRA TID PRN 07/30 1145 AC 08/05 TOP 2142 Diphenhydramine HCl 50 MG .STK-MED ONE 08/12 1346 DC IM 08/12 1347 Diphenhydramine HCl 50 MG Q6P PRN 08/07 1630 AC 08/12 IV 1351 Fentanyl Citrate 1,000 MCG Q24H 08/13 0015 r 08/13 Dextrose/Water 250 ML IV 0131 Fentanyl Citrate 500 MCG .STK-MED ONE 08/12 1634 DC IM 08/12 1635 Fluconazole 400 MG Q48 08/12 1130 AC 08/12 Sodium Chloride 200 ML IV 1350 Heparin Sodium 5,000 UNIT Q8 08/12 0600 AC 08/13 (Porcine) SC 0625 Hydromorphone HCl 1 MG ONCE ONE 08/12 1245 DC 08/12 IV 08/12 1246 1315 Hydromorphone HCl 0.6 MG ONCE ONE 08/12 1030 DC 08/12 IV 08/12 1031 1051 Hydromorphone HCl 1 MG Q6-PRN PRN 08/11 1530 DC 08/12 IV PUSH 0616 Insulin Human Regular 0 Q6 08/10 1800 AC 08/13 SC 0624 Lidocaine 1 PAT DAILY 07/28 1800 AC 07/28 EXT 2004 Magnesium Sulfate 1 GM ONCE ONE 08/13 0730 AC Dextrose/Water 100 ML IV 08/13 1129 Magnesium Sulfate 1 GM ONCE ONE 08/13 0115 CAN Dextrose/Water 100 ML IV 08/13 0214 Miconazole Nitrate 1 DEMETRA AT BEDTIME 07/29 0130 AC 08/11 VAG 2236 Midazolam HCl 5 MG .STK-MED ONE 08/12 1633 DC IM 08/12 1634 Norepinephrine 4 MG Q8H 08/12 0500 AC 08/13 Sodium Chloride 250 ML IV 0429 Nystatin 1 DEMETRA TID PRN 08/12 0730 AC TOP Ondansetron HCl 4 MG .STK-MED ONE 08/12 1634 DC IM 08/12 1635 Pantoprazole Sodium 40 MG DAILY 08/11 1802 AC 08/12 IV 1014 Piperacillin Sod/ 2.25 GM Q6H 08/11 1600 AC 08/13 Tazobactam Sod IV 0429 Sodium Chloride 100 ML Potassium Chloride 20 MEQ Q1H 08/13 0700 DC 08/13 IV 08/13 0801 0907 Potassium Chloride 40 MEQ ONCE ONE 08/13 0645 CAN PO 08/13 0646 Potassium Chloride 20 MEQ ONCE ONE 08/13 0115 CAN PO 08/13 0116 Sodium Bicarbonate 75 MEQ Q8H 08/11 1215 DC 08/12 Dextrose/Sodium 1,000 ML IV 0015 Chloride Sucralfate 1 GM Q6 08/11 1815 AC 08/12 PO 1350 Results Pertinent Lab Results: Laboratory Tests 08/13 08/12 0445 0530 Chemistry Sodium (137 - 145 mmol/L) 136 L 134 L Potassium (3.5 - 5.1 mmol/L) 3.6 4.1 Chloride (98 - 107 mmol/L) 106 103 Carbon Dioxide (22 - 30 mmol/L) 19 L 20 L Anion Gap (5 - 16) 12 11 BUN (7 - 17 mg/dL) 51 H 58 H Creatinine (0.5 - 1.0 mg/dL) 1.7 H 2.1 H Estimated GFR (>60 ml/min) 33 L 26 L Glucose (65 - 99 mg/dL) 202 H 173 H Lactic Acid (0.7 - 2.1 mmol/L) 2.7 H Calcium (8.4 - 10.2 mg/dL) 7.3 L 7.7 L Phosphorus (2.5 - 4.5 mg/dL) 6.1 H 7.8 H Magnesium (1.6 - 2.3 mg/dL) 1.8 2.0 Total Bilirubin (0.2 - 1.3 mg/dL) 0.3 0.2 AST (14 - 36 U/L) 14 22 ALT (9 - 52 U/L) 34 36 Albumin (3.5 - 5.0 g/dL) 1.7 L 1.8 L Hematology CBC w Diff MAN DIFF ORDERED MAN DIFF ORDERED WBC (4.8 - 10.8 /CUMM) 14.8 H 9.0 RBC (4.20 - 5.40 /CUMM) 3.41 L 3.30 L Hgb (12.0 - 16.0 G/DL) 9.1 L 8.6 L Hct (37 - 47 %) 28.0 L 27.3 L MCV (81.0 - 99.0 FL) 82.3 82.7 MCH (27.0 - 31.0 PG) 26.6 L 26.2 L RDW (11.5 - 14.5 %) 17.5 H 18.4 H Plt Count (130 - 400 /CUMM) 181 211 MPV (7.4 - 10.4 FL) 7.4 7.4 Gran % (42.2 - 75.2 %) 91.7 H 87.7 H Lymphocytes % (20.5 - 51.1 %) 3.9 L 7.5 L Monocytes % (1.7 - 9.3 %) 1.6 L 0.6 L Eosinophils % (0 - 5 %) 2.6 4.0 Basophils % (0.0 - 2.0 %) 0.2 0.2 Absolute Granulocytes (1.4 - 6.5 /CUMM) 13.5 H 7.9 H Segmented Neutrophils (42.2 - 75.2 %) 80 H 76 H Band Neutrophils (0.0 - 5.0 %) 5 5 Absolute Lymphocytes (1.2 - 3.4 /CUMM) 0.6 L 0.7 L Lymphocytes (20.5 - 51.1 %) 6 L 10 L Monocytes (1.7 - 9.3 %) 2 1 L Absolute Monocytes (0.10 - 0.60 /CUMM) 0.2 0.1 L Eosinophils (0 - 5.0 %) 6 H 6 H Absolute Eosinophils (0.0 - 0.7 /CUMM) 0.4 0.4 Basophils (0.0 - 2.0 %) 1 1 Absolute Basophils (0.0 - 0.2 /CUMM) 0 0 Metamyelocytes (0.0 - 1.0 %) 1 Platelet Estimate (ADEQUATE) ADEQUATE ADEQUATE Polychromasia 1+ Hypochromic-Microcytic 1+ 2+ Poikilocytosis 1+ Basophilic Stippling SLIGHT Anisocytosis 1+ Ovalocytes 1+ Stomatocytes FEW PUBS MCHC (33.0 - 37.0 G/DL) 32.4 L 31.7 L Other Body Source Fld Total RBCs Counted (%) 100 08/12 08/11 0000 1220 Chemistry Sodium (137 - 145 mmol/L) 132 L Potassium (3.5 - 5.1 mmol/L) 4.9 Chloride (98 - 107 mmol/L) 99 Carbon Dioxide (22 - 30 mmol/L) 20 L Anion Gap (5 - 16) 13 BUN (7 - 17 mg/dL) 59 H Creatinine (0.5 - 1.0 mg/dL) 2.2 H Estimated GFR (>60 ml/min) 25 L Glucose (65 - 99 mg/dL) 149 H Lactic Acid (0.7 - 2.1 mmol/L) 2.2 H Calcium (8.4 - 10.2 mg/dL) 8.3 L Phosphorus (2.5 - 4.5 mg/dL) 8.5 H Magnesium (1.6 - 2.3 mg/dL) 2.0 Total Bilirubin (0.2 - 1.3 mg/dL) 0.2 AST (14 - 36 U/L) 29 ALT (9 - 52 U/L) 45 Albumin (3.5 - 5.0 g/dL) 1.9 L Coagulation PT (9.4 - 12.5 SEC) 11.3 INR (0.90 - 1.19) 1.08 APTT (25 - 37 SEC) 31 Hematology CBC w Diff Cancelled MAN DIFF ORDERED WBC (4.8 - 10.8 /CUMM) Cancelled 19.6 H RBC (4.20 - 5.40 /CUMM) Cancelled 3.73 L Hgb (12.0 - 16.0 G/DL) Cancelled 9.8 L Hct (37 - 47 %) Cancelled 30.8 L MCV (81.0 - 99.0 FL) Cancelled 82.4 MCH (27.0 - 31.0 PG) Cancelled 26.3 L RDW (11.5 - 14.5 %) Cancelled 19.0 H Plt Count (130 - 400 /CUMM) Cancelled 261 MPV (7.4 - 10.4 FL) Cancelled 7.3 L Gran % (42.2 - 75.2 %) 91.1 H Lymphocytes % (20.5 - 51.1 %) 4.0 L Monocytes % (1.7 - 9.3 %) 2.6 Eosinophils % (0 - 5 %) 2.3 Basophils % (0.0 - 2.0 %) 0 L Absolute Granulocytes (1.4 - 6.5 /CUMM) 17.8 H Segmented Neutrophils (42.2 - 75.2 %) 88 H Band Neutrophils (0.0 - 5.0 %) 6 H Absolute Lymphocytes (1.2 - 3.4 /CUMM) 0.8 L Lymphocytes (20.5 - 51.1 %) 3 L Monocytes (1.7 - 9.3 %) 3 Absolute Monocytes (0.10 - 0.60 /CUMM) 0.5 Absolute Eosinophils (0.0 - 0.7 /CUMM) 0.4 Absolute Basophils (0.0 - 0.2 /CUMM) 0 Platelet Estimate (ADEQUATE) VERIFIED BY SMEAR Anisocytosis 1+ PUBS MCHC (33.0 - 37.0 G/DL) Cancelled 31.9 L 08/11 08/11 08/11 UNK UNK 0320 Chemistry Sodium Cancelled Potassium Cancelled Chloride Cancelled Carbon Dioxide Cancelled Anion Gap Cancelled BUN Cancelled Creatinine Cancelled Glucose Cancelled Lactic Acid (0.7 - 2.1 mmol/L) 2.7 H Calcium Cancelled Phosphorus Cancelled Magnesium Cancelled Total Bilirubin Cancelled AST Cancelled ALT Cancelled Albumin Cancelled Hematology Lymphocytes (%) Other Body Source Fluid WBC (0 - 5 /CUMM) 80058 H Fld Total RBCs Counted (0 /CUMM) 2025 H Fluid Total Protein (g/dL) 2.5 Fluid Albumin (g/dL) 1.2 Fluid LDH (U/L) 66707 Fluid Amylase (U/L) 67 08/11 08/11 08/10 0320 0000 2159 Chemistry Sodium (137 - 145 mmol/L) 128 L Potassium (3.5 - 5.1 mmol/L) 5.0 Chloride (98 - 107 mmol/L) 100 Carbon Dioxide (22 - 30 mmol/L) 17 L Anion Gap (5 - 16) 10 BUN (7 - 17 mg/dL) 56 H Creatinine (0.5 - 1.0 mg/dL) 2.3 H Estimated GFR (>60 ml/min) 23 L Glucose (65 - 99 mg/dL) 188 H Lactic Acid (0.7 - 2.1 mmol/L) 2.5 H Cancelled Calcium (8.4 - 10.2 mg/dL) 8.6 Phosphorus (2.5 - 4.5 mg/dL) 8.5 H Magnesium (1.6 - 2.3 mg/dL) 2.0 Total Bilirubin (0.2 - 1.3 mg/dL) 0.2 AST (14 - 36 U/L) 28 ALT (9 - 52 U/L) 45 Lactate Dehydrogenase (313 - 618 U/L) 657 H Total Protein (6.3 - 8.2 g/dL) 4.5 L Albumin (3.5 - 5.0 g/dL) 2.0 L Hematology CBC w Diff MAN DIFF ORDERED WBC (4.8 - 10.8 /CUMM) 23.0 H RBC (4.20 - 5.40 /CUMM) 3.96 L Hgb (12.0 - 16.0 G/DL) 10.4 L Hct (37 - 47 %) 32.4 L MCV (81.0 - 99.0 FL) 81.9 MCH (27.0 - 31.0 PG) 26.3 L RDW (11.5 - 14.5 %) 18.4 H Plt Count (130 - 400 /CUMM) 294 MPV (7.4 - 10.4 FL) 7.6 Segmented Neutrophils (42.2 - 75.2 %) 79 H Band Neutrophils (0.0 - 5.0 %) 6 H Lymphocytes (20.5 - 51.1 %) 13 L Eosinophils (0 - 5.0 %) 1 Metamyelocytes (0.0 - 1.0 %) 1 Platelet Estimate (ADEQUATE) ADEQUATE Polychromasia 1+ Hypochromic-Microcytic 1+ Poikilocytosis 2+ Anisocytosis 1+ Microcytic Cells 1+ Ovalocytes 1+ Stomatocytes 1+ PUBS MCHC (33.0 - 37.0 G/DL) 32.1 L Other Body Source Fld Total RBCs Counted (%) 100 08/10 193 Chemistry Sodium (137 - 145 mmol/L) 132 L Potassium (3.5 - 5.1 mmol/L) 5.2 H Chloride (98 - 107 mmol/L) 100 Carbon Dioxide (22 - 30 mmol/L) 18 L Anion Gap (5 - 16) 14 BUN (7 - 17 mg/dL) 54 H Creatinine (0.5 - 1.0 mg/dL) 1.8 H Estimated GFR (>60 ml/min) 31 L Glucose (65 - 99 mg/dL) 210 H Lactic Acid (0.7 - 2.1 mmol/L) 3.4 H Calcium (8.4 - 10.2 mg/dL) 8.3 L Phosphorus (2.5 - 4.5 mg/dL) 8.1 H Magnesium (1.6 - 2.3 mg/dL) 2.0 Total Bilirubin (0.2 - 1.3 mg/dL) 0.4 AST (14 - 36 U/L) 31 ALT (9 - 52 U/L) 44 Albumin (3.5 - 5.0 g/dL) 2.0 L Hematology CBC w Diff MAN DIFF ORDERED WBC (4.8 - 10.8 /CUMM) 29.8 H RBC (4.20 - 5.40 /CUMM) 4.00 L Hgb (12.0 - 16.0 G/DL) 10.5 L Hct (37 - 47 %) 32.8 L MCV (81.0 - 99.0 FL) 82.0 MCH (27.0 - 31.0 PG) 26.2 L RDW (11.5 - 14.5 %) 19.1 H Plt Count (130 - 400 /CUMM) 319 MPV (7.4 - 10.4 FL) 7.9 Gran % (42.2 - 75.2 %) 96.4 H Lymphocytes % (20.5 - 51.1 %) 2.8 L Monocytes % (1.7 - 9.3 %) 0.4 L Eosinophils % (0 - 5 %) 0.4 Basophils % (0.0 - 2.0 %) 0 L Absolute Granulocytes (1.4 - 6.5 /CUMM) 28.7 H Segmented Neutrophils (42.2 - 75.2 %) 82 H Band Neutrophils (0.0 - 5.0 %) 14 H Absolute Lymphocytes (1.2 - 3.4 /CUMM) 0.8 L Lymphocytes (20.5 - 51.1 %) 2 L Monocytes (1.7 - 9.3 %) 2 Absolute Monocytes (0.10 - 0.60 /CUMM) 0.1 L Absolute Eosinophils (0.0 - 0.7 /CUMM) 0.1 Absolute Basophils (0.0 - 0.2 /CUMM) 0 Hypochromic-Microcytic 1+ Poikilocytosis 1+ Stomatocytes 1+ PUBS MCHC (33.0 - 37.0 G/DL) 32.0 L
--- NOTE | 2016-08-13 10:50 | PN- CRCU ---
Subjective HPI/Critical Care Issues: pt seen and examined levophed, fentanyl drips mechanical ventilation ros unobtainable secondary to sedation/intubation s/p partial gastrectomy Objective Current Medications: Current Medications Sig/Shahla Start time Last Medication Dose Route Stop Time Status Admin Acetaminophen 1,000 MG Q6P PRN 08/07 1630 AC 08/11 N/A 1 UNIT IV 2237 Albumin Human 50 GM ONCE ONE 08/12 1945 DC IV 08/12 1946 Albuterol Sulfate 3 ML BID 08/05 2200 AC 08/13 INH 0914 Albuterol Sulfate 2 PUF Q4P PRN 07/30 2200 AC 08/07 INH 0914 Benzocaine/Menthol 1 RAYMUNDO Q2P PRN 08/11 2245 AC PO Collagenase 1 DEMETRA DAILY 08/04 1000 AC 08/13 TOP 0628 Dextrose/Sodium 1,000 ML Q8H 08/12 1045 AC 08/13 Chloride IV 1024 Diclofenac Sodium 1 DEMETRA TID PRN 07/30 1145 AC 08/05 TOP 2142 Diphenhydramine HCl 50 MG .STK-MED ONE 08/12 1346 DC IM 08/12 1347 Diphenhydramine HCl 50 MG Q6P PRN 08/07 1630 AC 08/12 IV 1351 Fentanyl Citrate 1,000 MCG Q24H 08/13 0015 AC 08/13 Dextrose/Water 250 ML IV 0131 Fentanyl Citrate 500 MCG .STK-MED ONE 08/12 1634 DC IM 08/12 1635 Fluconazole 400 MG Q48 08/12 1130 AC 08/12 Sodium Chloride 200 ML IV 1350 Heparin Sodium 5,000 UNIT Q8 08/12 0600 AC 08/13 (Porcine) SC 0625 Hydromorphone HCl 1 MG ONCE ONE 08/12 1245 DC 08/12 IV 08/12 1246 1315 Hydromorphone HCl 1 MG Q6-PRN PRN 08/11 1530 DC 08/12 IV PUSH 0616 Insulin Human Regular 0 Q6 08/10 1800 AC 08/13 SC 0624 Lidocaine 1 PAT DAILY 07/28 1800 AC 07/28 EXT 2004 Magnesium Sulfate 1 GM ONCE ONE 08/13 0730 AC Dextrose/Water 100 ML IV 08/13 1129 Magnesium Sulfate 1 GM ONCE ONE 08/13 0115 CAN Dextrose/Water 100 ML IV 08/13 0214 Miconazole Nitrate 1 DEMETRA AT BEDTIME 07/29 0130 AC 08/11 VAG 2236 Midazolam HCl 5 MG .STK-MED ONE 08/12 1633 DC IM 08/12 1634 Norepinephrine 4 MG Q8H 08/12 0500 AC 08/13 Sodium Chloride 250 ML IV 0429 Nystatin 1 DEMETRA TID PRN 08/12 0730 AC TOP Ondansetron HCl 4 MG .STK-MED ONE 08/12 1634 DC IM 08/12 1635 Pantoprazole Sodium 40 MG DAILY 08/11 1802 AC 08/13 IV 1025 Piperacillin Sod/ 2.25 GM Q6H 08/11 1600 AC 08/13 Tazobactam Sod IV 1025 Sodium Chloride 100 ML Potassium Chloride 20 MEQ Q1H 08/13 0700 DC 08/13 IV 08/13 0801 0907 Potassium Chloride 40 MEQ ONCE ONE 08/13 0645 CAN PO 08/13 0646 Potassium Chloride 20 MEQ ONCE ONE 08/13 0115 CAN PO 08/13 0116 Sucralfate 1 GM Q6 08/11 1815 AC 08/12 PO 1350 Vital Signs & I&O Last 24 Hrs of Vitals and I&O: Vital Signs Date Time Temp Pulse Resp B/P Pulse O2 O2 Flow FiO2 Ox Delivery Rate 08/13 0920 40 08/13 0800 97.9 104 14 100/52 100 Ventilator 40% 08/13 0800 100 Ventilator 40% 08/13 0625 40 08/13 0429 109 94/43 08/13 0400 99 Ventilator 40% 08/13 0306 40 08/13 0104 40 08/13 0000 100 Ventilator 40% 08/13 0000 97.8 108 14 102/44 99 Ventilator 40% 08/12 2338 97.8 108 18 100/40 98 Ventilator 40% 08/12 2333 108 18 98/41 08/12 2300 98 Ventilator 40% 08/12 2200 40 08/12 1600 97.5 108 12 100/60 96 Nasal 2.0L Cannula 08/12 1600 95 Nasal 2.0L Cannula 08/12 1351 113 100/61 08/12 1200 95 Nasal 2.0L Cannula Intake & Output 08/13 1600 08/13 0800 08/13 0000 Intake Total 1054 521 Output Total 1065 420 Balance -11 101 Intake, IV 1054 521 Intake, Oral 0 Output, 715 80 Drainage Output, 0 250 Gastric Drainage Output, Other 0 Output, Urine 350 90 Patient 264 lb Weight Exam Other Physical Findings: gen sedated heent ett cvs s1, s2 lungs transmitted sounds, rare rhonchi abd dressings intact ext no edema Results Last 24 Hrs of Lab Results: Laboratory Tests 08/13/16 0445: Anion Gap 12, Estimated GFR 33 L, Glucose 202 H, Calcium 7.3 L, Phosphorus 6.1 H, Magnesium 1.8, Total Bilirubin 0.3, AST 14, ALT 34, Albumin 1.7 L, CBC w Diff MAN DIFF ORDERED, RBC 3.41 L, MCV 82.3, MCH 26.6 L, RDW 17.5 H, MPV 7.4, Gran % 91.7 H, Lymphocytes % 3.9 L, Monocytes % 1.6 L, Eosinophils % 2.6 , Basophils % 0.2, Absolute Granulocytes 13.5 H, Segmented Neutrophils 80 H, Band Neutrophils 5, Absolute Lymphocytes 0.6 L, Lymphocytes 6 L, Monocytes 2, Absolute Monocytes 0.2, Eosinophils 6 H, Absolute Eosinophils 0.4, Basophils 1, Absolute Basophils 0, Platelet Estimate ADEQUATE, Polychromasia 1+, Hypochromic- Microcytic 1+, Poikilocytosis 1+, Basophilic Stippling SLIGHT, Ovalocytes 1+, Stomatocytes FEW, PUBS MCHC 32.4 L, Fld Total RBCs Counted 100 Impression/Plan Impression/Plan Impression/Plan: Impression 40 year old woman - hx of multiple collections/pus, MSSA, s/p partial gastrectomy - loculated right pleural effusion chronic - hyponatremia improved - [place] stable Plan - check ABG this am to evaluate vent settings and check in am as well, cxr on - zosyn, ID following, s/p abdominal drain placement 08/11/16 - plan for Gastrografin study today - nephrology following - hemodynamic monitoring - levophed, CVP, MAP goal >65 - fentanyl for sedation/pain control - DVT prophylaxis TTS 40 min
--- NOTE | 2016-08-13 12:23 | PN- Infect Dx ---
Subjective Subjective: Afebrile. Her blood pressure remains borderline on Levophed. She was taken to the OR yesterday and remains intubated. Objective Last 24 Hrs of Vital Signs/I&O Vital Signs Date Time Temp Pulse Resp B/P Pulse O2 O2 Flow FiO2 Ox Delivery Rate 08/13 0920 40 08/13 0800 97.9 104 14 100/52 100 Ventilator 40% 08/13 0800 100 Ventilator 40% 08/13 0625 40 08/13 0429 109 94/43 08/13 0400 99 Ventilator 40% 08/13 0306 40 08/13 0104 40 08/13 0000 100 Ventilator 40% 08/13 0000 97.8 108 14 102/44 99 Ventilator 40% 08/12 2338 97.8 108 18 100/40 98 Ventilator 40% 08/12 2333 108 18 98/41 08/12 2300 98 Ventilator 40% 08/12 2200 40 08/12 1600 97.5 108 12 100/60 96 Nasal 2.0L Cannula 08/12 1600 95 Nasal 2.0L Cannula 08/12 1351 113 100/61 Intake & Output 08/13 1600 08/13 0800 08/13 0000 Intake Total 1054 521 Output Total 1065 420 Balance -11 101 Intake, IV 1054 521 Intake, Oral 0 Output, 715 80 Drainage Output, 0 250 Gastric Drainage Output, Other 0 Output, Urine 350 90 Patient 264 lb Weight Physical Exam Other Physical Findings: She is sedated on the ventilator Chest Pro-Line in the left upper chest with no inflammation at the site Lungs scattered rhonchi bilaterally Heart regular rhythm with no murmur Abdomen is distended, with [address]; left lower quadrant catheter with 90 mL output overnight and midline catheter with no output recorded overnight Extremities 2+ edema all extremities Orta catheter remains in place Results Last 24 Hours of Lab Results: Laboratory Tests 08/13 08/13 1055 0445 Blood Gas pH (7.35 - 7.45 PH) 7.36 pCO2 (35 - 45 TORR) 36 pO2 (80 - 100 TORR) 128 H HCO3 (21 - 28 MEQ/L) 20 L ABG O2 Sat (Measured) (>96.0 %) 98.0 Carboxyhemoglobin (1.5 - 5.0 %) 0 L O2 Concentration % 35% Respiration Rate (BPM) 12 O2 Delivery Method VENT Vent Mode AC Expiratory Pressure (CMH2O/P) 5 Tidal Volume (CC) 550 Chemistry Sodium (137 - 145 mmol/L) 136 L Potassium (3.5 - 5.1 mmol/L) 3.6 Chloride (98 - 107 mmol/L) 106 Carbon Dioxide (22 - 30 mmol/L) 19 L Anion Gap (5 - 16) 12 BUN (7 - 17 mg/dL) 51 H Creatinine (0.5 - 1.0 mg/dL) 1.7 H Estimated GFR (>60 ml/min) 33 L Glucose (65 - 99 mg/dL) 202 H Calcium (8.4 - 10.2 mg/dL) 7.3 L Phosphorus (2.5 - 4.5 mg/dL) 6.1 H Magnesium (1.6 - 2.3 mg/dL) 1.8 Total Bilirubin (0.2 - 1.3 mg/dL) 0.3 AST (14 - 36 U/L) 14 ALT (9 - 52 U/L) 34 Albumin (3.5 - 5.0 g/dL) 1.7 L Hematology CBC w Diff MAN DIFF ORDERED WBC (4.8 - 10.8 /CUMM) 14.8 H RBC (4.20 - 5.40 /CUMM) 3.41 L Hgb (12.0 - 16.0 G/DL) 9.1 L Hct (37 - 47 %) 28.0 L MCV (81.0 - 99.0 FL) 82.3 MCH (27.0 - 31.0 PG) 26.6 L RDW (11.5 - 14.5 %) 17.5 H Plt Count (130 - 400 /CUMM) 181 MPV (7.4 - 10.4 FL) 7.4 Gran % (42.2 - 75.2 %) 91.7 H Lymphocytes % (20.5 - 51.1 %) 3.9 L Monocytes % (1.7 - 9.3 %) 1.6 L Eosinophils % (0 - 5 %) 2.6 Basophils % (0.0 - 2.0 %) 0.2 Absolute Granulocytes (1.4 - 6.5 /CUMM) 13.5 H Segmented Neutrophils (42.2 - 75.2 %) 80 H Band Neutrophils (0.0 - 5.0 %) 5 Absolute Lymphocytes (1.2 - 3.4 /CUMM) 0.6 L Lymphocytes (20.5 - 51.1 %) 6 L Monocytes (1.7 - 9.3 %) 2 Absolute Monocytes (0.10 - 0.60 /CUMM) 0.2 Eosinophils (0 - 5.0 %) 6 H Absolute Eosinophils (0.0 - 0.7 /CUMM) 0.4 Basophils (0.0 - 2.0 %) 1 Absolute Basophils (0.0 - 0.2 /CUMM) 0 Platelet Estimate (ADEQUATE) ADEQUATE Polychromasia 1+ Hypochromic-Microcytic 1+ Poikilocytosis 1+ Basophilic Stippling SLIGHT Ovalocytes 1+ Stomatocytes FEW PUBS MCHC (33.0 - 37.0 G/DL) 32.4 L Miscellaneous Phlebotomy Draw Site LOUIE Other Body Source Fld Total RBCs Counted (%) 100 Last 24 Hours of Haris Results: Ascites culture sent August 11 positive for VRE, Enterobacter aerogenes intermediate to Zosyn and sensitive to Meropenem, Ciprofloxacin, Bactrim and Gentamicin, Lactobacillus and yeast Blood cultures 2 August 10 negative Recent Imaging Studies: Gastrografin study August 12 revealed findings suspicious for gastric pneumatosis , with probable gastric perforation CT of the abdomen and pelvis August 12 revealed increased ascites with no evidence of bowel obstruction or perforation and with no free extraluminal air seen Assessment/Plan Impression: Stable status post exploratory laparotomy and partial gastrectomy yesterday for a gangrenous stomach, felt to be secondary to ischemia, with perforation, with drainage of a significant amount of ascitic fluid. She remains afebrile with white blood cell count increased on Zosyn and Fluconazole, with cultures of the ascitic fluid aspirated 2 days ago positive for multiple organisms, including Enterobacter, which is intermediate to Zosyn, yeast, for which she is on Fluconazole, and VRE and lactobacillus, which are of unclear significance and should not require treatment. Unfortunately no OR cultures were obtained. Her renal failure, is at least in part secondary to ATN, presumably secondary to sepsis, and it appears to be improving. The pelvic abscess secondary to MSSA has improved on the recent CT scan, but she has minimal drainage from the catheter and this will need continued follow-up. Suggestion: 1. Will need to discuss catheter for pelvic collection with IR 2. Discontinue Zosyn 3. Begin Meropenem 1 g IV every 8 hours 4. Continue Fluconazole 400 mg IV every 48 hours
--- NOTE | 2016-08-13 13:29 | NUR ---
@0800-PT DROWSY/AROUS. SEDATED WITH SAS 3 ON FENT GTT AT 37.5MCG. PT FOLLOWS SOME COMMANDS. ABLE TO MOUTH WORDS. BILAT WRIST CONT FOR SAFETY OF ETT. CONT ON VENT-NO CHANGE TO SETTINGS NOTED. FIO2 40%. O2SAT 99-100%. DIM BS TO BASES. MIN SECRETIONS NOTED. NSR/ST HR 90S-110. CVP 5-6. CONT ON LEVO AT 7MCG. GOAL MAP>65. L RADIAL LOUIE NOTED,PLACED IN OR 08/12/16. NGT CONT TO R NARES, LWS-MIN BROWN DRAINAGE NOTED. NO BOWEL SOUNDS NOTED AT THIS TIME. NEW JTUBE NOTED, CLAMPED AT THIS TIME. PERCUTANEOUS DRAIN NOTED TO R AND L ABD. L ABD DRAIN NOTED WITH SS/BLOODY DRAINAGE. L ABD BLANCA SITE WITH MOD AMTS OF SS DRAINAGE. ELIAS IN PLACE WITH ADEQUATE OUTPUT NOTED WITH SEDIMENT. GEN EDEMA NOTED. R ARM REMAINS SWOLLEN. MULT SCABS TO RUE AND R BREAST. WEEPING BLE. R BUTTOCK WOUND WITH SANTYL DSG IN PLACE. EXCORIATED OPEN AREAS TO L INNER BUTTOCKS. BUE/BLE ELEVATED ON PILLOWS. LCW PROLINE IN PLACE. IVF D5NS INFUSING AT 125ML/HR. KCL 20EQ BOLUS X 2 ORD FOR K+3.6. AND 1 GM MAG BOLUS FOR MG 1.8. CONT TO MONITOR CLOSELY. CALL JADE SWENSON.
--- NOTE | 2016-08-13 13:41 | NUR ---
@1200-NEW DSG APPLIED TO SURG INCISIONS. MOUTH CARE PROVIDED. PT REFUSES TO CHANGE POSITION AT THIS TIME. CVP 6. FIO2 TITRATED TO 35% FROM 40% PER RT. CONT TO MONITOR, CALL HANSEN WITHIN REACH.
[2016-08-13 16:00] VITALS: BP 102/60
--- NOTE | 2016-08-13 23:05 | NUR ---
AVSS.SEDATED AND FOLLOW COMMANDS. PAIN MGT CONT WITH FENTANYL GTT. +PP.GEN EDEMA.GARCÍA WEAKLY.REMAIN VENTILATED WITH SATS >95%.DECREASE FIO2 TO 30%.HOB ELEVATED. IVF CONT VIA PROLINE.NGT PATENT.JT INTACT. PERCUTANEOUS X2 AND BLANCA INTACT.PLAN OF CARE REVIEWED
[2016-08-14] VITALS: BP 110/50
--- NOTE | 2016-08-14 05:00 | NUR ---
PT AWAKE AND MAKING NEEDS KNOWN BY MOUTHING WORDS AND WRITING. FENTANYL DRIP AT 62.5 MCG/HR.MONITOR SINUS RHYTHM. IVF AT 75 ML/HR.LEVOPHED DRIP BEING TITRATED.PRESENTLY ON 2 MCG/MIN.BP VIA L RADIAL [id number]=164/40.ENDOTRACHEAL TUBE TO VENTILATOR AY 30%.TUBE FEED VIA J TUBE AT 10 ML/HR.PERCUTANEOUS DRAINS PRESENT R AND L.HEMAVAC TO SELF SUCTION.DRAING BLOODY DRAINAGE
[2016-08-14 06:20] LABS: ABSOLUTE BASOPHIL COUNT 0 /CUMM (0.0-0.2); ABSOLUTE EOSINOPHIL COUNT 0.5 /CUMM (0.0-0.7); ABSOLUTE GRANULOCYTE CT 5.3 /CUMM (1.4-6.5); ABSOLUTE LYMPH COUNT 0.5 /CUMM (1.2-3.4); ABSOLUTE MONOCYTE COUNT 0.1 /CUMM (0.10-0.60); BASOPHIL % 0.2 % (0.0-2.0); EOSINOPHIL % 7.3 % (0-5); GRANULOCYTE % 82.7 % (42.2-75.2); HEMATOCRIT 25.1 % (37-47); MEAN CORPUSCULAR HGB 26.6 PG (27.0-31.0); MEAN CORPUSCULAR HGB CONC 32.2 G/DL (33.0-37.0); MEAN CORPUSCULAR VOLUME 82.6 FL (81.0-99.0); MEAN PLATELET VOLUME 7.6 FL (7.4-10.4); PLATELET COUNT 148 /CUMM (130-400); RBC DISTRIBUTION WIDTH 18.2 % (11.5-14.5); RED BLOOD CELL CT 3.04 /CUMM (4.20-5.40)
--- NOTE | 2016-08-14 06:24 | RADIOLOGY REPORT ---
EXAMINATION: XR PORTABLE CHEST CLINICAL INFORMATION: Confirm tube position. COMPARISON: Chest radiograph 08/13/2016. TECHNIQUE: Portable AP view of the chest was obtained. FINDINGS: The distal tip of the endotracheal tube is located 5.8 cm above the az. There is a left central line introduced through the internal jugular vein that terminates near the cavoatrial junction. Multiple cardiac leads overly the chest. Lung volumes are low and there is bibasilar subsegmental atelectasis and/or consolidative disease. No pneumothorax. The cardiac silhouette and upper media cells contours are unremarkable. No acute osseous finding. IMPRESSION: The distal tip of the endotracheal tube terminates 5.8 cm above the az. There are low lung volumes and bibasilar opacities that may represent a manifestation of subsegmental atelectasis or consolidative disease.
[2016-08-14 06:27] LABS: WHITE BLOOD CELL COUNT 6.4 /CUMM (4.8-10.8)
--- NOTE | 2016-08-14 06:52 | PN- Resident CRCU ---
Subjective HPI/CRCU Issues: Pt is awake and oriented despite being on fentanyl at62.4 Levophed has been off since 645am this morning She is still intubated and was communicating through writing Plan to extubate today. Likely remove A line as well She is now off restrains Requesting dilaudid despite being on fentanyl,she reports that it does nothing for her. we will wean her off the fentanyl. ABG this am 7.34/41//21 Na 136, k 3.6 to 3.8, bun/cr down to 42/1.3, discussed with ID regarding possible change in abx dose. Wbc 14.8 to 6.4, hb 9.1 to 8.1, platelet 211-->181 --> 148. Max temp 97.9 HR 95-111 RR 12-16 Systolic bp 95-115 diastolic bp 39-55 CVP 3-6 SAS 3-4 NG 150 (bilious fluid) Orta 40-180ml/hr -- total 1800 ml RYAN 480 bloody fluid left pelvis drain 190 ml Objective Vital Signs & I&O Last 8 Hrs of Vitals and I&O: Intake & Output 08/14 1600 08/14 0800 08/14 0000 Intake Total 1024 985 Output Total 940 720 Balance 84 265 Intake, IV 858 865 Intake, Tube 116 70 Feeding Intake, Tube 50 50 Irrigant Output, 230 180 Drainage Output, 50 20 Gastric Drainage Output, Urine 660 520 Laboratory Tests 08/14 08/14 08/13 0610 0430 1055 Blood Gas pH (7.35 - 7.45 PH) 7.34 L 7.36 pCO2 (35 - 45 TORR) 41 36 pO2 (80 - 100 TORR) 124 H 128 H HCO3 (21 - 28 MEQ/L) 21 20 L ABG O2 Sat (Measured) (>96.0 %) 98.0 98.0 P-50 (Temp Corrected) N Carboxyhemoglobin (1.5 - 5.0 %) 0.3 L 0 L O2 Concentration % .30 35% Respiration Rate (BPM) 12 12 O2 Delivery Method VENT VENT Vent Mode A/C AC Expiratory Pressure (CMH2O/P) 5 5 Tidal Volume (CC) 550 550 Chemistry Sodium (137 - 145 mmol/L) 136 L Potassium (3.5 - 5.1 mmol/L) 3.8 Chloride (98 - 107 mmol/L) 110 H Carbon Dioxide (22 - 30 mmol/L) 22 Anion Gap (5 - 16) 4 L BUN (7 - 17 mg/dL) 42 H Creatinine (0.5 - 1.0 mg/dL) 1.3 H Estimated GFR (>60 ml/min) 45 L Glucose (65 - 99 mg/dL) 163 H Lactic Acid (0.7 - 2.1 mmol/L) 2.7 H Calcium (8.4 - 10.2 mg/dL) 7.5 L Phosphorus (2.5 - 4.5 mg/dL) 4.2 Magnesium (1.6 - 2.3 mg/dL) 2.1 Total Bilirubin (0.2 - 1.3 mg/dL) 0.2 AST (14 - 36 U/L) 16 ALT (9 - 52 U/L) 27 Albumin (3.5 - 5.0 g/dL) 1.6 L Hematology CBC w Diff NO MAN DIFF REQ WBC (4.8 - 10.8 /CUMM) 6.4 RBC (4.20 - 5.40 /CUMM) 3.04 L Hgb (12.0 - 16.0 G/DL) 8.1 L Hct (37 - 47 %) 25.1 L MCV (81.0 - 99.0 FL) 82.6 MCH (27.0 - 31.0 PG) 26.6 L RDW (11.5 - 14.5 %) 18.2 H Plt Count (130 - 400 /CUMM) 148 MPV (7.4 - 10.4 FL) 7.6 Gran % (42.2 - 75.2 %) 82.7 H Lymphocytes % (20.5 - 51.1 %) 8.4 L Monocytes % (1.7 - 9.3 %) 1.4 L Eosinophils % (0 - 5 %) 7.3 H Basophils % (0.0 - 2.0 %) 0.2 Absolute Granulocytes (1.4 - 6.5 /CUMM) 5.3 Absolute Lymphocytes (1.2 - 3.4 /CUMM) 0.5 L Absolute Monocytes (0.10 - 0.60 /CUMM) 0.1 L Absolute Eosinophils (0.0 - 0.7 /CUMM) 0.5 Absolute Basophils (0.0 - 0.2 /CUMM) 0 PUBS MCHC (33.0 - 37.0 G/DL) 32.2 L Miscellaneous Phlebotomy Draw Site [facility] Laboratory Tests 08/14/16 0610: pH 7.34 L, pCO2 41, pO2 124 H, HCO3 21, ABG O2 Sat (Measured) 98.0, P-50 (Temp Corrected) N, Carboxyhemoglobin 0.3 L, O2 Concentration % .30, Respiration Rate 12, O2 Delivery Method VENT, Vent Mode A/C, Expiratory Pressure 5, Tidal Volume 550, Phlebotomy Draw Site [facility] 08/14/16 0430: Anion Gap 4 L, Estimated GFR 45 L, Glucose 163 H, Lactic Acid 2.7 H, Calcium 7.5 L, Phosphorus 4.2, Magnesium 2.1, Total Bilirubin 0.2, AST 16, ALT 27, Albumin 1.6 L, CBC w Diff NO MAN DIFF REQ, RBC 3.04 L, MCV 82.6, MCH 26.6 L, RDW 18.2 H, MPV 7.6, Gran % 82.7 H, Lymphocytes % 8.4 L, Monocytes % 1.4 L, Eosinophils % 7.3 H, Basophils % 0.2, Absolute Granulocytes 5.3, Absolute Lymphocytes 0.5 L, Absolute Monocytes 0.1 L, Absolute Eosinophils 0.5, Absolute Basophils 0, [facility] MCHC 32.2 L 08/13/16 1055: pH 7.36, pCO2 36, pO2 128 H, HCO3 20 L, ABG O2 Sat (Measured) 98.0, Carboxyhemoglobin 0 L, O2 Concentration % 35%, Respiration Rate 12, O2 Delivery Method VENT, Vent Mode AC, Expiratory Pressure 5, Tidal Volume 550, Phlebotomy Draw Site [facility] Vital Signs Date Time Temp Pulse Resp B/P Pulse O2 O2 Flow FiO2 Ox Delivery Rate 08/14 0832 30 08/14 0628 102 14 109/41 08/14 0621 30 08/14 0400 99 Ventilator 30% 08/14 0315 30 08/14 0031 30 08/14 0000 97.0 103 14 110/50 100 Ventilator 30% 08/14 0000 100 Ventilator 30% 08/13 2236 30 08/13 2138 98 14 121/41 08/13 2000 95 Ventilator 35% 08/13 1950 35 08/13 1615 35 08/13 1600 99 Ventilator 35% 08/13 1600 97.2 103 14 102/60 99 Ventilator 35% 08/13 1415 Nasal 5.0L Cannula 08/13 1414 35 08/13 1225 35 08/13 1217 103/40 08/13 1200 99 Ventilator 35% Exam General Appearance: alert, awake, anxious, although on fentanyl , asking for more dilaudid, cries intermittently Respiratory: normal breath sounds Cardiovascular: regular rate/rhythm Gastrointestinal: on tube feeds, bilious drain from ng , bloody drain from ryan Current Medications: Current Medications Sig/Shahla Start time Last Medication Dose Route Stop Time Status Admin Acetaminophen 1,000 MG Q6P PRN 08/07 1630 AC 08/11 N/A 1 UNIT IV 2237 Albuterol Sulfate 3 ML BID 08/05 2200 AC 08/14 INH 0825 Albuterol Sulfate 2 PUF Q4P PRN 07/30 2200 AC 08/07 INH 0914 Benzocaine/Menthol 1 RAYMUNDO Q2P PRN 08/11 2245 AC PO Collagenase 1 DEMETRA DAILY 08/04 1000 AC 08/14 TOP 0923 Dextrose/Sodium 1,000 ML Q8H 08/12 1045 AC 08/14 Chloride IV 0300 Diclofenac Sodium 1 DEMETRA TID PRN 07/30 1145 AC 08/05 TOP 2142 Diphenhydramine HCl 50 MG Q6P PRN 08/07 1630 AC 08/12 IV 1351 Fentanyl Citrate 1,000 MCG Q24H 08/13 0015 AC 08/13 Dextrose/Water 250 ML IV 2300 Fluconazole 400 MG Q48 08/12 1130 AC 08/14 Sodium Chloride 200 ML IV 0922 Heparin Sodium 5,000 UNIT Q8 08/12 0600 AC 08/14 (Porcine) SC 0629 Insulin Human Regular 0 Q6 08/10 1800 AC 08/14 SC 0655 Lidocaine 1 PAT DAILY 07/28 1800 AC 07/28 EXT 2004 Magnesium Sulfate 1 GM ONCE ONE 08/13 0730 DC 08/13 Dextrose/Water 100 ML IV 08/13 1129 1217 Meropenem 1 GM IQ8 08/13 1600 AC 08/14 IV 0922 Miconazole Nitrate 1 DEMETRA AT BEDTIME 07/29 0130 AC 08/11 VAG 2236 Norepinephrine 4 MG Q8H 08/12 0500 DC 08/14 Sodium Chloride 250 ML IV 0628 Nystatin 1 DEMETRA TID PRN 08/12 0730 AC TOP Pantoprazole Sodium 40 MG DAILY 08/11 1802 AC 08/14 IV 0923 Piperacillin Sod/ 2.25 GM Q6H 08/11 1600 DC 08/13 Tazobactam Sod IV 1025 Sodium Chloride 100 ML Potassium Chloride 20 MEQ Q1H 08/14 0730 DC 08/14 IV 08/14 0831 0921 Sucralfate 1 GM Q6 08/11 1815 AC 08/14 PO 0628 Impression/Plan Impression/Problem List Impression: 40-year-old lady with a PMH of diabetes, previous right-sided hemorrhagic pleural effusion S/P Pleurx catheter, lytic therapy 2, previous MSSA sepsis likely secondary to pro-line catheter, previous necrotizing fasciitis of the perineum, left pararenal abscess, osteomyelitis of pubic bone, polysubstance abuse, depression, opiate dependence who presented with complaints of right-sided hip pain, admitted to , found to have pelvic abscess, that was drained by Dr. Sam on 08/01/16. Post procedure, she was hypotensive and was transferred to ICU. She received levophed for 1 day, subsequently her BP was stable and pt was transferred back to . The pt was again hypotensive, and lethargic, and was transferred to ICU. She again was on levophed for a couple of days with BP stable without pressors, and was transferred back to . For the third time, she was again hypotensive requiring another ICU transfer. It has been noted that her BP drops when she receives dilaudid. She was placed on levophed for blood pressure support. The CT findings was concerning for acute abdomen due to perforation vs ileus vs obstruction (tiny amount of free air similar to prior imaging, ?perforation gastric ulcer, gastric pneumatosis, diffusely tender abdomen, no bowel sounds heard, large amount of NG tube output bright yellow --> muddy green --> brown). Her lactic acid elevated up to 2.7, with poor UO. With IVF, her UO improved. There was fluid collection in the left pelvis, that was drained by Dr. Dunaway and put out cloudy yellow --> brown fluid collection in the pelvis (similar in color and consistency to NG tube fluid), most likely representing infected ascitic fluid, consistent with peritonitis. We were concerned for perforation in the stomach due to image findings of gastric pneumatosis. Gastrograffin studies done and showed leakage of contrast out of the stomach. Pt was taken to OR on 08/12/[address] Trammell for exploratory laparotomy with partial gastrectomy for gangrenous stomach and J tube insertion. There was no perforation found, but seeping of fluid through the gangrenous wall into the peritoneal space is entirely possible causing peritonitis. The etiology of the the gangrene is unknown, could be cocaine? vasopressors? hypotension? Her other issues this admission include right upper extremity swelling (due to fall) that has now improved, with ortho following. She also developed BROOKLYNN most likely multifactorial in nature (prerenal and ATN) - insults including hypotension, contrast, vancomycin, with nephrology following. Lines: RYAN drain d3 A line d3 (can probably remove) J tube d3 Intubated d3 (can probably extubate) Restrains UE discontinued on day 3 Orat Proline (08/07/16) NG tube (08/10/16) Right pelvis catheter (08/01/16) Left pelvis catheter (08/11/16) Respiratory * Intubated 08/12 - 08/14 Cardiovascular # Hypotension * Off levophed 08/14 645AM * IVF discontinued 08/14, consider diuresis for anasarca if BP remains stable for another 24 hours ID # Pelvic abscess sp IR drainage (right 08/01 and left 08/11) # Peritonitis due to gangrenous stomach (due to ischemia..cocaine? gastroparesis ? pressors?) - 08/11: [place] [id number], VRE, enterobacter, yeast, lactobacillus. * Oxacillin started to cover MSSA on 08/01, discontinued on 08/10/16. Zosyn started on 08/10/16 to cover pseudomonas. Fluconazole 400 IV q8 started on 08/12 for yeast in ascitic fluid. Zosyn discontinued and meropenem started on 08/13. * The tube should be open to external gravity drainage via drainage bag. Tube should be flushed Q shift with 10 mL normal saline. Strict output should be measured, not including these flushes. # S/P partial gastrectomy for gangrenous stomach, with J tube * Tube feeding as per surgery and nutrition * Continue IV protonix and sucralfate * Appreciate surgery input * NG tube low wall suction * PO meds have been discontinued including lexapro, haldol, lyrica, na bicarb, senna, docusate, tylenol, simethicone. These meds would need to be reordered once pt can eat. # Necrotic decubits ulcer - Excised at bedside 08/10 - Not likely to be source of infection # Right shoulder pain with decreased passive and active ROM (improving) # Right elbow swelling (improving) - Xray and US obtained * Refuses MRI unless done under anesthesia * Appreciate Ortho (Dr. Schulz) input # The scalp lesion popped 08/02 PM, with purulent drainage noted - Alopecia noted Metabolic # Acute kidney injury * Continue to follow kidney functions * Appreciate nephro input # Hyponatremia * Continue to follow sodium level * Appreciate nephro input # Hyperkalemia * Continue to monitor Psych # Depression # Hx of drug abuse * On the W-10 and the discharge instructions, please ask the receiving facility/ ECF to call and make an intake appointment at [facility], [address] [place] [address] when her discharge date is known, . * Cannot go home with proline, must go to rehab # Agitation * IV benadryl PRN Endocrine # Diabetes mellitus * Novolog tidac/qhs * Levemir 60 bid ON HOLD,consider restarting at lower dose * Watch blood sugar closely * Consider endo consult Alimentary * On tube feeds Skin # Decubitus ulcer * Wound consult with Dr. English appreciated * Consulted surgery, necrotic patch excised at bedside, no deep tracking or necrosis or fasciitis noted * Consider rectal tube placement Diet: tube feeds DVT ppx: alps and heparin FC Consults: ID, surgery, renal, psych, ortho, PT, wound, nutrition Labs: ICU critically ill , cbc for leukocytosis, LA for lactic acidosis Problem List: 1. S/P gastrectomy Pain Ratin Tomorrow's Labs & Rationales: ICU CBC lactic acid critically ill Plan DVT/Prophylaxis: mechanical, pharmacological
[2016-08-14 08:00] VITALS: BP 108/59
--- NOTE | 2016-08-14 09:48 | PN- Nephrology ---
Assessment/Plan Assessment: Acute kidney injury: Much ipmroved. Massive anasarca/edema: Now that hemodynamics have improved would DC IVFs. If BP remains stable for 24 hours then consider starting diuretics tomorrow. 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 Suggestion: DC IV fluids If blood pressure stable x24 hours then would start low dose IV Lasix tomorrow ( ie 20 mg IV) Subjective Subjective: awake and alert remains intubated, however weaning trial in process excellent UO of 1550 cc past 24 hrs off levophed x3 hours with stable BP Review of Systems: c/o pain in abdomen denies sob/chest pain Objective Vital Signs and I&Os Vital Signs Date Time Temp Pulse Resp B/P Pulse O2 O2 Flow FiO2 Ox Delivery Rate 08/14 0832 30 08/14 0628 102 14 109/41 08/14 0621 30 08/14 0400 99 Ventilator 30% 08/14 0315 30 08/14 0031 30 08/14 0000 97.0 103 14 110/50 100 Ventilator 30% 08/14 0000 100 Ventilator 30% 08/13 2236 30 08/13 2138 98 14 121/41 08/13 2000 95 Ventilator 35% 08/13 1950 35 08/13 1615 35 08/13 1600 99 Ventilator 35% 08/13 1600 97.2 103 14 102/60 99 Ventilator 35% 08/13 1415 Nasal 5.0L Cannula 08/13 1414 35 08/13 1225 35 08/13 1217 103/40 08/13 1200 99 Ventilator 35% Intake & Output 08/14 1600 08/14 0400 08/13 1600 08/13 0400 08/12 1600 08/12 0400 Intake Total 1910 161 7241 521 2380 1982 Output Total 193 376 6383 420 2875 1610 Balance 84 265 283 101 -495 372 Intake, IV 632 706 4104 521 2080 1782 Intake, Oral 0 300 200 Intake, Other 20 Intake, Tube 116 70 Feeding Intake, Tube 50 50 Irrigant Number 0 0 Bowel Movements Output, 624 082 4759 80 1200 400 Drainage Output, 50 20 80 250 900 900 Gastric Drainage Output, Other 0 Output, Stool 0 Output, Urine 660 520 925 90 775 310 Patient 264 lb Weight Physical Exam: General: intubated/sedated HEENT: mucosa dry Neck: negative for EBONY, JVD CV:tachy chest: +tunnelled central line Pulm: CTAB, no rales Abd: +BLANCA drain, serosanguis. +percutaneous drain Lower Ext: 2+ edema. back: +sacral edema Upper Ext: no AVFs or AVGs Neuro: neg tremor, asterixis : +yao catheter Current Medications: Current Medications Sig/Shahla Start time Last Medication Dose Route Stop Time Status Admin Acetaminophen 1,000 MG Q6P PRN 08/07 1630 AC 08/11 N/A 1 UNIT IV 2237 Albuterol Sulfate 3 ML BID 08/05 2200 AC 08/14 INH 0825 Albuterol Sulfate 2 PUF Q4P PRN 07/30 2200 AC 08/07 INH 0914 Benzocaine/Menthol 1 RAYMUNDO Q2P PRN 08/11 2245 AC PO Collagenase 1 DEMETRA DAILY 08/04 1000 AC 08/14 TOP 0923 Dextrose/Sodium 1,000 ML Q8H 08/12 1045 DC 08/14 Chloride IV 0300 Diclofenac Sodium 1 DEMETRA TID PRN 07/30 1145 AC 08/05 TOP 2142 Diphenhydramine HCl 50 MG Q6P PRN 08/07 1630 AC 08/12 IV 1351 Fentanyl Citrate 1,000 MCG Q24H 08/13 0015 AC 08/13 Dextrose/Water 250 ML IV 2300 Fluconazole 400 MG Q48 08/12 1130 AC 08/14 Sodium Chloride 200 ML IV 0922 Heparin Sodium 5,000 UNIT Q8 08/12 0600 AC 08/14 (Porcine) SC 0629 Insulin Human Regular 0 Q6 08/10 1800 AC 08/14 SC 0655 Lidocaine 1 PAT DAILY 07/28 1800 AC 07/28 EXT 2004 Magnesium Sulfate 1 GM ONCE ONE 08/13 0730 DC 08/13 Dextrose/Water 100 ML IV 08/13 1129 1217 Meropenem 1 GM IQ8 08/13 1600 AC 08/14 IV 0922 Miconazole Nitrate 1 DEMETRA AT BEDTIME 07/29 0130 AC 08/11 VAG 2236 Norepinephrine 4 MG Q8H 08/12 0500 DC 08/14 Sodium Chloride 250 ML IV 0628 Nystatin 1 DEMETRA TID PRN 08/12 0730 AC TOP Pantoprazole Sodium 40 MG DAILY 08/11 1802 AC 08/14 IV 0923 Piperacillin Sod/ 2.25 GM Q6H 08/11 1600 DC 08/13 Tazobactam Sod IV 1025 Sodium Chloride 100 ML Potassium Chloride 20 MEQ Q1H 08/14 0730 DC 08/14 IV 08/14 0831 0921 Sucralfate 1 GM Q6 08/11 1815 AC 08/14 PO 0628 Results Pertinent Lab Results: Laboratory Tests 08/14 08/14 08/13 0610 0430 1055 Blood Gas pH (7.35 - 7.45 PH) 7.34 L 7.36 pCO2 (35 - 45 TORR) 41 36 pO2 (80 - 100 TORR) 124 H 128 H HCO3 (21 - 28 MEQ/L) 21 20 L ABG O2 Sat (Measured) (>96.0 %) 98.0 98.0 P-50 (Temp Corrected) N Carboxyhemoglobin (1.5 - 5.0 %) 0.3 L 0 L O2 Concentration % .30 35% Respiration Rate (BPM) 12 12 O2 Delivery Method VENT VENT Vent Mode A/C AC Expiratory Pressure (CMH2O/P) 5 5 Tidal Volume (CC) 550 550 Chemistry Sodium (137 - 145 mmol/L) 136 L Potassium (3.5 - 5.1 mmol/L) 3.8 Chloride (98 - 107 mmol/L) 110 H Carbon Dioxide (22 - 30 mmol/L) 22 Anion Gap (5 - 16) 4 L BUN (7 - 17 mg/dL) 42 H Creatinine (0.5 - 1.0 mg/dL) 1.3 H Estimated GFR (>60 ml/min) 45 L Glucose (65 - 99 mg/dL) 163 H Lactic Acid (0.7 - 2.1 mmol/L) 2.7 H Calcium (8.4 - 10.2 mg/dL) 7.5 L Phosphorus (2.5 - 4.5 mg/dL) 4.2 Magnesium (1.6 - 2.3 mg/dL) 2.1 Total Bilirubin (0.2 - 1.3 mg/dL) 0.2 AST (14 - 36 U/L) 16 ALT (9 - 52 U/L) 27 Albumin (3.5 - 5.0 g/dL) 1.6 L Hematology CBC w Diff NO MAN DIFF REQ WBC (4.8 - 10.8 /CUMM) 6.4 RBC (4.20 - 5.40 /CUMM) 3.04 L Hgb (12.0 - 16.0 G/DL) 8.1 L Hct (37 - 47 %) 25.1 L MCV (81.0 - 99.0 FL) 82.6 MCH (27.0 - 31.0 PG) 26.6 L RDW (11.5 - 14.5 %) 18.2 H Plt Count (130 - 400 /CUMM) 148 MPV (7.4 - 10.4 FL) 7.6 Gran % (42.2 - 75.2 %) 82.7 H Lymphocytes % (20.5 - 51.1 %) 8.4 L Monocytes % (1.7 - 9.3 %) 1.4 L Eosinophils % (0 - 5 %) 7.3 H Basophils % (0.0 - 2.0 %) 0.2 Absolute Granulocytes (1.4 - 6.5 /CUMM) 5.3 Absolute Lymphocytes (1.2 - 3.4 /CUMM) 0.5 L Absolute Monocytes (0.10 - 0.60 /CUMM) 0.1 L Absolute Eosinophils (0.0 - 0.7 /CUMM) 0.5 Absolute Basophils (0.0 - 0.2 /CUMM) 0 PUBS MCHC (33.0 - 37.0 G/DL) 32.2 L Miscellaneous Phlebotomy Draw Site [facility] 08/13 08/12 1115 6930 Chemistry Sodium (137 - 145 mmol/L) 136 L 134 L Potassium (3.5 - 5.1 mmol/L) 3.6 4.1 Chloride (98 - 107 mmol/L) 106 103 Carbon Dioxide (22 - 30 mmol/L) 19 L 20 L Anion Gap (5 - 16) 12 11 BUN (7 - 17 mg/dL) 51 H 58 H Creatinine (0.5 - 1.0 mg/dL) 1.7 H 2.1 H Estimated GFR (>60 ml/min) 33 L 26 L Glucose (65 - 99 mg/dL) 202 H 173 H Lactic Acid (0.7 - 2.1 mmol/L) 2.7 H Calcium (8.4 - 10.2 mg/dL) 7.3 L 7.7 L Phosphorus (2.5 - 4.5 mg/dL) 6.1 H 7.8 H Magnesium (1.6 - 2.3 mg/dL) 1.8 2.0 Total Bilirubin (0.2 - 1.3 mg/dL) 0.3 0.2 AST (14 - 36 U/L) 14 22 ALT (9 - 52 U/L) 34 36 Albumin (3.5 - 5.0 g/dL) 1.7 L 1.8 L Hematology CBC w Diff MAN DIFF ORDERED MAN DIFF ORDERED WBC (4.8 - 10.8 /CUMM) 14.8 H 9.0 RBC (4.20 - 5.40 /CUMM) 3.41 L 3.30 L Hgb (12.0 - 16.0 G/DL) 9.1 L 8.6 L Hct (37 - 47 %) 28.0 L 27.3 L MCV (81.0 - 99.0 FL) 82.3 82.7 MCH (27.0 - 31.0 PG) 26.6 L 26.2 L RDW (11.5 - 14.5 %) 17.5 H 18.4 H Plt Count (130 - 400 /CUMM) 181 211 MPV (7.4 - 10.4 FL) 7.4 7.4 Gran % (42.2 - 75.2 %) 91.7 H 87.7 H Lymphocytes % (20.5 - 51.1 %) 3.9 L 7.5 L Monocytes % (1.7 - 9.3 %) 1.6 L 0.6 L Eosinophils % (0 - 5 %) 2.6 4.0 Basophils % (0.0 - 2.0 %) 0.2 0.2 Absolute Granulocytes (1.4 - 6.5 /CUMM) 13.5 H 7.9 H Segmented Neutrophils (42.2 - 75.2 %) 80 H 76 H Band Neutrophils (0.0 - 5.0 %) 5 5 Absolute Lymphocytes (1.2 - 3.4 /CUMM) 0.6 L 0.7 L Lymphocytes (20.5 - 51.1 %) 6 L 10 L Monocytes (1.7 - 9.3 %) 2 1 L Absolute Monocytes (0.10 - 0.60 /CUMM) 0.2 0.1 L Eosinophils (0 - 5.0 %) 6 H 6 H Absolute Eosinophils (0.0 - 0.7 /CUMM) 0.4 0.4 Basophils (0.0 - 2.0 %) 1 1 Absolute Basophils (0.0 - 0.2 /CUMM) 0 0 Metamyelocytes (0.0 - 1.0 %) 1 Platelet Estimate (ADEQUATE) ADEQUATE ADEQUATE Polychromasia 1+ Hypochromic-Microcytic 1+ 2+ Poikilocytosis 1+ Basophilic Stippling SLIGHT Anisocytosis 1+ Ovalocytes 1+ Stomatocytes FEW PUBS MCHC (33.0 - 37.0 G/DL) 32.4 L 31.7 L Other Body Source Fld Total RBCs Counted (%) 100 08/12 08/11 0000 1220 Chemistry Sodium (137 - 145 mmol/L) 132 L Potassium (3.5 - 5.1 mmol/L) 4.9 Chloride (98 - 107 mmol/L) 99 Carbon Dioxide (22 - 30 mmol/L) 20 L Anion Gap (5 - 16) 13 BUN (7 - 17 mg/dL) 59 H Creatinine (0.5 - 1.0 mg/dL) 2.2 H Estimated GFR (>60 ml/min) 25 L Glucose (65 - 99 mg/dL) 149 H Lactic Acid (0.7 - 2.1 mmol/L) 2.2 H Calcium (8.4 - 10.2 mg/dL) 8.3 L Phosphorus (2.5 - 4.5 mg/dL) 8.5 H Magnesium (1.6 - 2.3 mg/dL) 2.0 Total Bilirubin (0.2 - 1.3 mg/dL) 0.2 AST (14 - 36 U/L) 29 ALT (9 - 52 U/L) 45 Albumin (3.5 - 5.0 g/dL) 1.9 L Coagulation PT (9.4 - 12.5 SEC) 11.3 INR (0.90 - 1.19) 1.08 APTT (25 - 37 SEC) 31 Hematology CBC w Diff Cancelled MAN DIFF ORDERED WBC (4.8 - 10.8 /CUMM) Cancelled 19.6 H RBC (4.20 - 5.40 /CUMM) Cancelled 3.73 L Hgb (12.0 - 16.0 G/DL) Cancelled 9.8 L Hct (37 - 47 %) Cancelled 30.8 L MCV (81.0 - 99.0 FL) Cancelled 82.4 MCH (27.0 - 31.0 PG) Cancelled 26.3 L RDW (11.5 - 14.5 %) Cancelled 19.0 H Plt Count (130 - 400 /CUMM) Cancelled 261 MPV (7.4 - 10.4 FL) Cancelled 7.3 L Gran % (42.2 - 75.2 %) 91.1 H Lymphocytes % (20.5 - 51.1 %) 4.0 L Monocytes % (1.7 - 9.3 %) 2.6 Eosinophils % (0 - 5 %) 2.3 Basophils % (0.0 - 2.0 %) 0 L Absolute Granulocytes (1.4 - 6.5 /CUMM) 17.8 H Segmented Neutrophils (42.2 - 75.2 %) 88 H Band Neutrophils (0.0 - 5.0 %) 6 H Absolute Lymphocytes (1.2 - 3.4 /CUMM) 0.8 L Lymphocytes (20.5 - 51.1 %) 3 L Monocytes (1.7 - 9.3 %) 3 Absolute Monocytes (0.10 - 0.60 /CUMM) 0.5 Absolute Eosinophils (0.0 - 0.7 /CUMM) 0.4 Absolute Basophils (0.0 - 0.2 /CUMM) 0 Platelet Estimate (ADEQUATE) VERIFIED BY SMEAR Anisocytosis 1+ PUBS MCHC (33.0 - 37.0 G/DL) Cancelled 31.9 L 08/11 08/11 UNK UNK Chemistry Sodium Cancelled Potassium Cancelled Chloride Cancelled Carbon Dioxide Cancelled Anion Gap Cancelled BUN Cancelled Creatinine Cancelled Glucose Cancelled Calcium Cancelled Phosphorus Cancelled Magnesium Cancelled Total Bilirubin Cancelled AST Cancelled ALT Cancelled Albumin Cancelled Hematology Lymphocytes (%) Other Body Source Fluid WBC (0 - 5 /CUMM) 22614 H Fld Total RBCs Counted (0 /CUMM) 2025 H Fluid Total Protein (g/dL) 2.5 Fluid Albumin (g/dL) 1.2 Fluid LDH (U/L) 81928 Fluid Amylase (U/L) 67
--- NOTE | 2016-08-14 09:49 | PN- Infect Dx ---
Subjective Subjective: Afebrile. Her blood pressure is improved, now off Levophed. She does report left-sided abdominal pain. Objective Last 24 Hrs of Vital Signs/I&O Vital Signs Date Time Temp Pulse Resp B/P Pulse O2 O2 Flow FiO2 Ox Delivery Rate 08/14 0832 30 08/14 0628 102 14 109/41 08/14 0621 30 08/14 0400 99 Ventilator 30% 08/14 0315 30 08/14 0031 30 08/14 0000 97.0 103 14 110/50 100 Ventilator 30% 08/14 0000 100 Ventilator 30% 08/13 2236 30 08/13 2138 98 14 121/41 08/13 2000 95 Ventilator 35% 08/13 1950 35 08/13 1615 35 08/13 1600 99 Ventilator 35% 08/13 1600 97.2 103 14 102/60 99 Ventilator 35% 08/13 1415 Nasal 5.0L Cannula 08/13 1414 35 08/13 1225 35 08/13 1217 103/40 08/13 1200 99 Ventilator 35% Intake & Output 08/14 1600 08/14 0800 08/14 0000 Intake Total 1024 985 Output Total 940 720 Balance 84 265 Intake, IV 858 865 Intake, Tube 116 70 Feeding Intake, Tube 50 50 Irrigant Output, 230 180 Drainage Output, 50 20 Gastric Drainage Output, Urine 660 520 Physical Exam Other Physical Findings: She is awake and alert on the ventilator in no acute distress Chest Pro-Line in the left upper chest with no inflammation at the site Lungs are clear Heart regular rhythm with no murmur Abdomen distended, tender on minimal palpation, with positive bowel sounds; drains remain in place; left lower quadrant catheter with 230 mL output yesterday; mid abdominal catheter with no output recorded yesterday Extremities 1+ edema all extremities Orta catheter remains in place Results Last 24 Hours of Lab Results: Laboratory Tests 08/14 08/14 08/13 0610 0430 1055 Blood Gas pH (7.35 - 7.45 PH) 7.34 L 7.36 pCO2 (35 - 45 TORR) 41 36 pO2 (80 - 100 TORR) 124 H 128 H HCO3 (21 - 28 MEQ/L) 21 20 L ABG O2 Sat (Measured) (>96.0 %) 98.0 98.0 P-50 (Temp Corrected) N Carboxyhemoglobin (1.5 - 5.0 %) 0.3 L 0 L O2 Concentration % .30 35% Respiration Rate (BPM) 12 12 O2 Delivery Method VENT VENT Vent Mode A/C AC Expiratory Pressure (CMH2O/P) 5 5 Tidal Volume (CC) 550 550 Chemistry Sodium (137 - 145 mmol/L) 136 L Potassium (3.5 - 5.1 mmol/L) 3.8 Chloride (98 - 107 mmol/L) 110 H Carbon Dioxide (22 - 30 mmol/L) 22 Anion Gap (5 - 16) 4 L BUN (7 - 17 mg/dL) 42 H Creatinine (0.5 - 1.0 mg/dL) 1.3 H Estimated GFR (>60 ml/min) 45 L Glucose (65 - 99 mg/dL) 163 H Lactic Acid (0.7 - 2.1 mmol/L) 2.7 H Calcium (8.4 - 10.2 mg/dL) 7.5 L Phosphorus (2.5 - 4.5 mg/dL) 4.2 Magnesium (1.6 - 2.3 mg/dL) 2.1 Total Bilirubin (0.2 - 1.3 mg/dL) 0.2 AST (14 - 36 U/L) 16 ALT (9 - 52 U/L) 27 Albumin (3.5 - 5.0 g/dL) 1.6 L Hematology CBC w Diff NO MAN DIFF REQ WBC (4.8 - 10.8 /CUMM) 6.4 RBC (4.20 - 5.40 /CUMM) 3.04 L Hgb (12.0 - 16.0 G/DL) 8.1 L Hct (37 - 47 %) 25.1 L MCV (81.0 - 99.0 FL) 82.6 MCH (27.0 - 31.0 PG) 26.6 L RDW (11.5 - 14.5 %) 18.2 H Plt Count (130 - 400 /CUMM) 148 MPV (7.4 - 10.4 FL) 7.6 Gran % (42.2 - 75.2 %) 82.7 H Lymphocytes % (20.5 - 51.1 %) 8.4 L Monocytes % (1.7 - 9.3 %) 1.4 L Eosinophils % (0 - 5 %) 7.3 H Basophils % (0.0 - 2.0 %) 0.2 Absolute Granulocytes (1.4 - 6.5 /CUMM) 5.3 Absolute Lymphocytes (1.2 - 3.4 /CUMM) 0.5 L Absolute Monocytes (0.10 - 0.60 /CUMM) 0.1 L Absolute Eosinophils (0.0 - 0.7 /CUMM) 0.5 Absolute Basophils (0.0 - 0.2 /CUMM) 0 PUBS MCHC (33.0 - 37.0 G/DL) 32.2 L Miscellaneous Phlebotomy Draw Site LOUIE PALMA Last 24 Hours of Haris Results: Blood cultures August 10 one bottle positive for gram-negative rods Recent Imaging Studies: Chest x-ray August 14, personally reviewed, reveals bibasilar densities unchanged Assessment/Plan Impression: Improving status post exploratory laparotomy and partial gastrectomy 2 days ago for a gangrenous stomach with perforation, on Meropenem and Fluconazole for a polymicrobial peritonitis with culture of the ascitic fluid aspirated 3 days ago positive for multiple organisms, including Enterobacter, yeast, VRE and lactobacillus, with the significance of the latter two organisms unclear and now with one blood culture also positive for gram-negative rods. Her temperatures and white blood cell count are now normal and her renal function has normalized. The pelvic abscess secondary to MSSA has improved on the recent CT scan, but, with minimal drainage reported from the catheter, (placed 13 days ago) will need to reassess the need for this catheter. Suggestion: 1. Will discuss further management of her pelvic abscess catheter with IR 2. Increase Fluconazole to 400 mg IV every 24 hours 3. Continue Meropenem
--- NOTE | 2016-08-14 11:59 | PN- CRCU ---
Subjective HPI/Critical Care Issues: pt seen and examined on mechanical ventilation doing well awake and comfortable fentanyl reduced Objective Current Medications: Current Medications Sig/Shahla Start time Last Medication Dose Route Stop Time Status Admin Acetaminophen 1,000 MG Q6P PRN 08/07 1630 AC 08/11 N/A 1 UNIT IV 2237 Albuterol Sulfate 3 ML BID 08/05 2200 AC 08/14 INH 0825 Albuterol Sulfate 2 PUF Q4P PRN 07/30 2200 AC 08/07 INH 0914 Benzocaine/Menthol 1 RAYMUNDO Q2P PRN 08/11 2245 AC PO Collagenase 1 DEMETRA DAILY 08/04 1000 AC 08/14 TOP 0923 Dextrose/Sodium 1,000 ML Q8H 08/12 1045 DC 08/14 Chloride IV 0300 Diclofenac Sodium 1 DEMETRA TID PRN 07/30 1145 AC 08/05 TOP 2142 Diphenhydramine HCl 50 MG Q6P PRN 08/07 1630 AC 08/12 IV 1351 Fentanyl Citrate 1,000 MCG Q24H 08/13 0015 AC 08/13 Dextrose/Water 250 ML IV 2300 Fluconazole 400 MG DAILY 08/15 1000 AC Sodium Chloride 200 ML IV Fluconazole 400 MG Q48 08/12 1130 DC 08/14 Sodium Chloride 200 ML IV 0922 Heparin Sodium 5,000 UNIT Q8 08/12 0600 AC 08/14 (Porcine) SC 0629 Hydromorphone HCl 1 MG Q6-PRN PRN 08/14 1115 DC IV PUSH Insulin Human Regular 0 Q6 08/10 1800 AC 08/14 SC 0655 Lidocaine 1 PAT DAILY 07/28 1800 AC 07/28 EXT 2004 Meropenem 1 GM IQ8 08/13 1600 AC 08/14 IV 0922 Miconazole Nitrate 1 DEMETRA AT BEDTIME 07/29 0130 AC 08/11 VAG 2236 Norepinephrine 4 MG Q8H 08/12 0500 DC 08/14 Sodium Chloride 250 ML IV 0628 Nystatin 1 DEMETRA TID PRN 08/12 0730 AC TOP Pantoprazole Sodium 40 MG DAILY 08/11 1802 AC 08/14 IV 0923 Piperacillin Sod/ 2.25 GM Q6H 08/11 1600 DC 08/13 Tazobactam Sod IV 1025 Sodium Chloride 100 ML Potassium Chloride 20 MEQ Q1H 08/14 0730 DC 08/14 IV 08/14 0831 1051 Sucralfate 1 GM Q6 08/11 1815 AC 08/14 PO 0628 Vital Signs & I&O Last 24 Hrs of Vitals and I&O: Vital Signs Date Time Temp Pulse Resp B/P Pulse O2 O2 Flow FiO2 Ox Delivery Rate 08/14 1146 99 Nasal 3.0L Cannula 08/14 0832 30 08/14 0800 98 Ventilator 30% 08/14 0800 96.1 98 14 108/59 98 Ventilator 30% 08/14 0628 102 14 109/41 08/14 0621 30 08/14 0400 99 Ventilator 30% 08/14 0315 30 08/14 0031 30 08/14 0000 97.0 103 14 110/50 100 Ventilator 30% 08/14 0000 100 Ventilator 30% 08/13 2236 30 08/13 2138 98 14 121/41 08/13 2000 95 Ventilator 35% 08/13 1950 35 08/13 1615 35 08/13 1600 99 Ventilator 35% 08/13 1600 97.2 103 14 102/60 99 Ventilator 35% 08/13 1415 Nasal 5.0L Cannula 08/13 1414 35 08/13 1225 35 08/13 1217 103/40 08/13 1200 99 Ventilator 35% Intake & Output 08/14 1600 08/14 0800 08/14 0000 Intake Total 1024 985 Output Total 940 720 Balance 84 265 Intake, IV 858 865 Intake, Tube 116 70 Feeding Intake, Tube 50 50 Irrigant Output, 230 180 Drainage Output, 50 20 Gastric Drainage Output, Urine 660 520 Exam Other Physical Findings: gen awake and alert heent ncat cvs s1, s2 lungs rare rhonchi abd dressings intact ext no edema Results Last 24 Hrs of Lab Results: Laboratory Tests 08/14/16 0610: pH 7.34 L, pCO2 41, pO2 124 H, HCO3 21, ABG O2 Sat (Measured) 98.0, P-50 (Temp Corrected) N, Carboxyhemoglobin 0.3 L, O2 Concentration % .30, Respiration Rate 12, O2 Delivery Method VENT, Vent Mode A/C, Expiratory Pressure 5, Tidal Volume 550, Phlebotomy Draw Site LOUIE 08/14/16 0430: Anion Gap 4 L, Estimated GFR 45 L, Glucose 163 H, Lactic Acid 2.7 H, Calcium 7.5 L, Phosphorus 4.2, Magnesium 2.1, Total Bilirubin 0.2, AST 16, ALT 27, Albumin 1.6 L, CBC w Diff NO MAN DIFF REQ, RBC 3.04 L, MCV 82.6, MCH 26.6 L, RDW 18.2 H, MPV 7.6, Gran % 82.7 H, Lymphocytes % 8.4 L, Monocytes % 1.4 L, Eosinophils % 7.3 H, Basophils % 0.2, Absolute Granulocytes 5.3, Absolute Lymphocytes 0.5 L, Absolute Monocytes 0.1 L, Absolute Eosinophils 0.5, Absolute Basophils 0, PUBS MCHC 32.2 L Impression/Plan Impression/Plan Impression/Plan: Impression 40 year old woman - hx of multiple collections/pus, MSSA, s/p partial gastrectomy - loculated right pleural effusion chronic - hyponatremia improved - [place] stable Plan - extubate, no need for abg - ID follow up, on meropenem and fluconazole - nephrology following - hemodynamic monitoring - levophed, CVP, MAP goal >65 - pain control - DVT prophylaxis TTS 40 min
--- NOTE | 2016-08-14 12:53 | PN- General Surgery ---
Surgical Brief Attending Note Brief Attending Note: Patient improved overnight, off pressors, awake and alert awaiting extubation, NG tube is bilious BLANCA drain near the stomach remains serosanguineous. Continue present care after extubation have to limit any oral intake only allowed to let her lips.
--- NOTE | 2016-08-14 13:37 | Operative Report ---
Operative/Inv Procedure Report Surgery Date: 08/12/16 Name of Procedure: Laparotomy abdominal washout, partial gastrectomy and insertion of feeding jejunostomy Pre-Operative Diagnosis: Gastric perforation, peritonitis Post-Operative Diagnosis: Necrosis of proximal stomach and peritonitis Estimated Blood Loss: 50ml to 100ml Surgeon/Assistant Professor Of Archaeology: Lan Trammell MD Assistant Professor Of Archaeology Dr. Castellanos Anesthesia: general endotracheal tube Operative/Procedure Note Note: Patient was positioned supine. After successful induction of general anesthesia, the patient's abdomen was prepped and draped in the usual sterile fashion. We left the 2 percutaneous drains in the lower abdomen alone and covered. We aimed a left-sided subcostal incision about 2 fingerbreadths below the palpable ribs crossing the midline a few centimeters we injected local anesthetic then made the incision with a 10 blade through the dermis and superficial subcutaneous fat and then deepened it with cautery layer by layer through the fascia and muscles until we reached the peritoneum which was incised sharply there was cloudy free fluid after opening up the entire incision we set up the Burdick retractor to expose the left upper quadrant. This area was lavaged and irrigated to gain adequate exposure of the stomach we had to mobilize the omentum off the splenic flexure this was limited overall by significant edema and adhesions between the bowel and the omentum and the peritoneal lining, paying particular attention to avoid injury to the spleen we gently retracted on the antrum of the stomach near the lesser curve, which was the only part that was spared, and you could see and feel that the cardia and most of the fundus were necrotic and gangrenous, the NG tube was visible, after we excised this tissue sharply, in so doing decompressing the rest of the stomach which still had food in it, the EG junction was viable the NG tube hugged the lesser curve towards the pylorus, you could see some additional spots of necrosis separate from the main part, some of these were only visible from the mucosal surface, there was one full-thickness one about 2 cm wide, that we debrided and then closed with 2-0 Maxon suture, and the remainder of the stomach was sewed back together essentially following the line of the NG tube starting at the EG junction with 2-0 Maxon, after irrigating and aspirating and with the aid of the LigaSure, mobilizing the omentum to cover the area of the suture line especially posteriorly and medially we irrigated aspirated checked for hemostasis placed a Fausto-Meyer drain up in this area through a separate stab incision and then from the proximal jejunum and with a Witzel technique inserted and secured a feeding jejunostomy just inferior to the abdominal incision using a size 16 red rubber catheter. Next the incision was closed in layers initially using 2-0 Vicryl suture for the peritoneum and then 0 Maxon suture for the rectus fascia continuing laterally over the obliques followed by additional Vicryl suture was some of the lateral fascia and Latanya's fascia and then subdermally and finally sylvia for skin followed by an island dressing. Estimated blood loss was 100 mL, lap and sponge counts were correct, wound expectancy was dirty, IV fluids crystalloid, complications none, patient tolerated the procedure well and was returned to the recovery room in satisfactory condition.
--- NOTE | 2016-08-14 15:53 | NUR ---
AM SHIFT NOTE,RECEIVED PATIENT W/ B/L UE WRIST RESTRAINTS,FENTANYL GTT INFUSING @ 62.4 MCG/HR, SAS 4, ABLE TO PRESS CALL HANSEN, TEXT, WRITE ON BOARD, MOUTH WORDS, FOLLOWING COMMANDS,MOVING ALL EXT.,REMOVED RESTRAINTS, AFEBRILE,REPORTS 10/10 PAIN IN ABD., LEFT RADIAL A-LINE INTACT, BP 108/59, CVP 6, NSR ST 95-104, 2/ 20 MEQ POTASSIUM BOLUS GIVEN, AM POT. 3.8, LCW PROLINE INTACT,NO S/S INFECTION, SUTURES AND BIO-PATCH INTACT, FENTANYL TITRATED AND DC'ED AT 1140 D5NS INFUSING AT 75MLS (DC'ED AT 1000) REPORTS 10/10 PAIN AT HOURLY ROUNDING VENTED AC/12, 550, 30% FIO2, 5 PEEP, O2 SAT 100%, WEAN TRIAL FROM 0850 TO 1135, EXTUBATED WITHOUT INCIDENT AT 1136, (BEGAN TO MOAN AND CRY FOR PAIN MEDS SOON EXTUBATED) 3LNC O2 SAT 100%, 0.6MG DILAUDID GIVEN AT 1330 10/10 PAIN IN ABD., TOLERATING TUBE FEED, VITAL AF 1.2 @ 10MLS/HR VIA LEFT ABD. J TUBE, Q6 F.S. 1200 183 4 UNITS NOVOLIN R GIVEN, RIGHT NGT TO LWS 150MLS GREEN OUTPUT, LARGE LOOSE BROWN GUIAC POSITIVE BM, LEFT ABD BLANCA DRAIN 190 MLS BLOODY DRAINAGE RLQ PERC. DRAIN, FLUSHED W/10MLS NS, NO ADDITIONAL OUTPUT NOTED LLQ PERC. DRAIN, FLUSHED W/10MLS/NS, 115 MLS S.S OUTPUT ELIAS INTACT, 500MLS CLEAR YELLOW U/O, EXCORIATION TO LEFT BUTTOCKS SKIN CARE PROVIDED, DSG CHANGE TO RIGHT BUTTOCKS WOUND, MULTIPLE SCABS TO RIGHT SHOULDER, RIGHT BREAST, RIGHT ARM, HEEL PROTECTORS, ALPS IN PLACE, TOTAL CARE ROTATIONAL BED,
[2016-08-14 16:00] VITALS: BP 108/58
[2016-08-14 22:00] VITALS: BP 100/58
--- NOTE | 2016-08-15 05:05 | NUR ---
PT AWAKE AND ALERT. ST 100'S, MANUAL BP 98/50. NGT TO LWS; JT WITH TF INFUSING.
[2016-08-15 05:37] LABS: ABSOLUTE BASOPHIL COUNT 0 /CUMM (0.0-0.2); ABSOLUTE EOSINOPHIL COUNT 0.4 /CUMM (0.0-0.7); ABSOLUTE LYMPH COUNT 0.4 /CUMM (1.2-3.4); ABSOLUTE MONOCYTE COUNT 0.1 /CUMM (0.10-0.60); BASOPHIL % 0.6 % (0.0-2.0); GRANULOCYTE % 79.5 % (42.2-75.2); HEMATOCRIT 25.1 % (37-47); MEAN CORPUSCULAR HGB 26.6 PG (27.0-31.0); MEAN CORPUSCULAR VOLUME 83.1 FL (81.0-99.0); MEAN PLATELET VOLUME 7.9 FL (7.4-10.4); PLATELET COUNT 118 /CUMM (130-400); RED BLOOD CELL CT 3.02 /CUMM (4.20-5.40)
--- NOTE | 2016-08-15 05:44 | PN- General Surgery ---
See Addendum Subjective Subjective: The patient was seen this morning postoperatively day #3. She complains of significant incisional pain and reports her last pain medicine was approximate 4 hours ago. She denies any nausea and has had 2 or 3 loose bowel movements overnight. She has no other complaints at the current time aside from feeling thirsty. She is tolerating tube feeds which are yet to be advanced to goal acceptable residuals. Objective Vital Signs and I&Os Vital Signs Date Time Temp Pulse Resp B/P Pulse O2 O2 Flow FiO2 Ox Delivery Rate 08/15 0400 200 Nasal 3.0L Cannula 08/15 0000 100 Nasal 3.0L Cannula 08/14 2200 98.0 104 12 100/58 99 Nasal 3.0L Cannula 08/14 2134 95 Nasal 3.0L Cannula 08/14 2000 Nasal 2.0L Cannula 08/14 1600 100 Nasal 3.0L Cannula 08/14 1600 96.2 100 17 108/58 100 Nasal 3.0L Cannula 08/14 1200 100 Nasal 3.0L Cannula 08/14 1146 99 Nasal 3.0L Cannula 08/14 0832 30 08/14 0800 98 Ventilator 30% 08/14 0800 96.1 98 14 108/59 98 Ventilator 30% 08/14 0628 102 14 109/41 08/14 0621 30 Intake & Output 08/15 0800 08/15 0000 08/14 1600 08/14 0800 08/14 0000 08/13 1600 Intake Total 460 595 919 6456 985 1259 Output Total 380 490 955 940 720 965 Balance 80 -330 -125 84 265 294 Intake, IV 30 640 380 800 9809 Intake, Oral 0 Intake, Other 350 30 20 Intake, Tube 60 80 60 116 70 Feeding Intake, Tube 50 50 100 50 50 Irrigant Number 1 1 1 0 Bowel Movements Output, 120 305 230 180 310 Drainage Output, 100 150 50 20 80 Gastric Drainage Output, Other 60 Output, Urine 320 270 500 660 520 575 Physical Exam: Gen.: Alert and complaining of pain. Skin: Warm and dry Abdomen: Soft, obese, appropriate incisional tenderness, bowel sounds positive. Surgical dressing was recently changed due to drainage around BLANCA. The BLANCA is holding suction with serosanguineous drainage in the bulb. There were 2 pelvic drains with scant output. Extremities: Bilateral lower extremities were warm without calf tenderness and there is trace edema present. Assessment/Plan Assessment/Plan Assessment: 41-year-old female status post exploratory laparotomy and subtotal gastrectomy postoperative day #3. From a surgical standpoint the patient is progressing as expected, her bowel function has returned, and she is tolerating tube feeds. Recommendations: Limit narcotics however administer appropriate analgesia Follow-up morning laboratory studies Continue to advance tube feeds to goal as tolerated Total respiratory care Out of bed to chair Keep NG tube to suction patient may have small amounts of ice chips to moisten her mouth Keep drains to self suction Now that the patient is extubated her A-line can probably be removed Continue antibiotics Care per primary team and follow-up consultation recommendations
--- NOTE | 2016-08-15 07:05 | PN- Resident CRCU ---
Subjective HPI/CRCU Issues: Pt received dilaudid about every 3 hours last night. When I saw her this morning ,she reports that her pain is "up there", then started crying and moaning in pain. We started 0.6 q4-6 this morning. She put out 1250 ml from NG tube over 24 hours. Has intructed nurse to not put anything down NG tube including flushes and meds (sucralfate has been discontinued). She is also not allowed to take anything orally. Her stool noted to be guaiac positive and she had 3 episodes of loose BM yesterday. Labs reviewed this morning, sodium improved from 136 to 141, k 3.8 to 4.3, AG 4 to 8, BUN/cr improved from 42/1.3 to 35/0.9. lactic acid 2.7 to 1.2. 24 Hour Events: T max 98 Pulse rate 98-106 RR 12-20 Systolic bp 101-132 Diastolic bp 46-54 CVP 1-4 Blood sugar 183,154 + 1547 - 2843 total (1250 NG tube, 310 BLANCA, yao 1180, 60 right pelvis, 215 left pelvis ) Objective Vital Signs & I&O Last 8 Hrs of Vitals and I&O: Intake & Output 08/15 1600 08/15 0800 08/15 0000 Intake Total 710 160 Output Total 2009 490 Balance -1300 -330 Intake, IV 30 Intake, Other 350 Intake, Tube 260 80 Feeding Intake, Tube 100 50 Irrigant Number 1 1 Bowel Movements Output, 120 120 Drainage Output, 1000 100 Gastric Drainage Output, Other 160 Output, Urine 730 270 Laboratory Tests 08/15 0400 Chemistry Sodium (137 - 145 mmol/L) 141 Potassium (3.5 - 5.1 mmol/L) 4.3 Chloride (98 - 107 mmol/L) 112 H Carbon Dioxide (22 - 30 mmol/L) 21 L Anion Gap (5 - 16) 8 BUN (7 - 17 mg/dL) 35 H Creatinine (0.5 - 1.0 mg/dL) 0.9 Estimated GFR (>60 ml/min) > 60 Glucose (65 - 99 mg/dL) 151 H Lactic Acid (0.7 - 2.1 mmol/L) 1.2 Calcium (8.4 - 10.2 mg/dL) 7.9 L Phosphorus (2.5 - 4.5 mg/dL) 3.2 Magnesium (1.6 - 2.3 mg/dL) 2.0 Total Bilirubin (0.2 - 1.3 mg/dL) 0.3 AST (14 - 36 U/L) 21 ALT (9 - 52 U/L) 35 Albumin (3.5 - 5.0 g/dL) 1.7 L Hematology CBC w Diff NO MAN DIFF REQ WBC (4.8 - 10.8 /CUMM) 5.0 RBC (4.20 - 5.40 /CUMM) 3.02 L Hgb (12.0 - 16.0 G/DL) 8.0 L Hct (37 - 47 %) 25.1 L MCV (81.0 - 99.0 FL) 83.1 MCH (27.0 - 31.0 PG) 26.6 L RDW (11.5 - 14.5 %) 18.0 H Plt Count (130 - 400 /CUMM) 118 L MPV (7.4 - 10.4 FL) 7.9 Gran % (42.2 - 75.2 %) 79.5 H Lymphocytes % (20.5 - 51.1 %) 8.8 L Monocytes % (1.7 - 9.3 %) 2.1 Eosinophils % (0 - 5 %) 9.0 H Basophils % (0.0 - 2.0 %) 0.6 Absolute Granulocytes (1.4 - 6.5 /CUMM) 4.0 Absolute Lymphocytes (1.2 - 3.4 /CUMM) 0.4 L Absolute Monocytes (0.10 - 0.60 /CUMM) 0.1 L Absolute Eosinophils (0.0 - 0.7 /CUMM) 0.4 Absolute Basophils (0.0 - 0.2 /CUMM) 0 PUBS MCHC (33.0 - 37.0 G/DL) 32.0 L Microbiology Date/Time Procedure - Status Source Growth 08/15 0834 Clostridium difficile Toxin A & B - COLB STOOL Vital Signs Date Time Temp Pulse Resp B/P Pulse O2 O2 Flow FiO2 Ox Delivery Rate 08/15 0400 200 Nasal 3.0L Cannula 08/15 0000 100 Nasal 3.0L Cannula 08/14 2200 98.0 104 12 100/58 99 Nasal 3.0L Cannula 08/14 2134 95 Nasal 3.0L Cannula 08/14 2000 Nasal 2.0L Cannula 08/14 1600 100 Nasal 3.0L Cannula 08/14 1600 96.2 100 17 108/58 100 Nasal 3.0L Cannula 08/14 1200 100 Nasal 3.0L Cannula 08/14 1146 99 Nasal 3.0L Cannula Exam General Appearance: alert, awake, mild distress, anasarca Respiratory: lungs clear Cardiovascular: regular rate/rhythm, tachycardia Gastrointestinal: tender to touch Weaning Parameters NIF: 36 Minute Volume: 10.0 Resp rate: 16 Vt: 602 Heart Rate: 100 Weaning Schedule Start Time: 0847 Minute Volume: 10.0 Resp Rate: 16 Vt: 602 Heart Rate: 100 End Time: 1136 Minute Volume: 7.56 Resp Rate: 18 Vt: 507 Heart Rate: 104 Current Medications: Current Medications Sig/Shahla Start time Last Medication Dose Route Stop Time Status Admin Acetaminophen 1,000 MG Q6P PRN 08/07 1630 AC 08/11 N/A 1 UNIT IV 2237 Albuterol Sulfate 3 ML BID 08/05 2200 AC 08/14 INH 2132 Albuterol Sulfate 2 PUF Q4P PRN 07/30 2200 AC 08/07 INH 0914 Benzocaine/Menthol 1 RAYMUNDO Q2P PRN 08/11 2245 AC PO Collagenase 1 DEMETRA DAILY 08/04 1000 AC 08/15 TOP 0924 Diclofenac Sodium 1 DEMETRA TID PRN 07/30 1145 AC 08/05 TOP 2142 Diphenhydramine HCl 50 MG Q6P PRN 08/07 1630 AC 08/12 IV 1351 Fentanyl Citrate 1,000 MCG Q24H 08/13 0015 DC 08/13 Dextrose/Water 250 ML IV 2300 Fluconazole 400 MG DAILY 08/15 1000 AC 08/15 Sodium Chloride 200 ML IV 0925 Fluconazole 400 MG Q48 08/12 1130 DC 08/14 Sodium Chloride 200 ML IV 0922 Heparin Sodium 5,000 UNIT Q8 08/12 0600 AC 08/15 (Porcine) SC 0555 Hydromorphone HCl 0.6 MG Q4-6 PRN PRN 08/15 0900 AC 08/15 IV 0926 Hydromorphone HCl 0.6 MG ONCE ONE 08/15 0545 DC 08/15 IV 08/15 0546 0557 Hydromorphone HCl 0.6 MG ONCE ONE 08/15 0215 DC 08/15 IV PUSH 08/15 0216 0205 Hydromorphone HCl 0.6 MG ONCE ONE 08/14 2030 DC 08/14 IV PUSH 08/14 2031 2040 Hydromorphone HCl 1 MG ONCE ONE 08/14 1615 DC 08/14 IV PUSH 08/14 1616 1623 Hydromorphone HCl 0.6 MG ONCE ONE 08/14 1300 DC 08/14 IV 08/14 1301 1332 Hydromorphone HCl 1 MG Q6-PRN PRN 08/14 1115 DC IV PUSH Insulin Human Regular 0 Q6 08/10 1800 AC 08/15 SC 0630 Lidocaine 1 PAT DAILY 07/28 1800 AC 07/28 EXT 2004 Meropenem 1 GM IQ8 08/13 1600 AC 08/15 IV 0842 Miconazole Nitrate 1 DEMETRA AT BEDTIME 07/29 0130 AC 08/14 VAG 2339 Nystatin 1 DEMETRA TID PRN 08/12 0730 AC 08/15 TOP 0924 Pantoprazole Sodium 40 MG DAILY 08/11 1802 AC 08/15 IV 0925 Sucralfate 1 GM Q6 08/11 1815 DC 08/15 PO 0556 Impression/Plan Impression/Problem List Impression: 40-year-old lady with a PMH of diabetes, previous right-sided hemorrhagic pleural effusion S/P Pleurx catheter, lytic therapy 2, previous MSSA sepsis likely secondary to pro-line catheter, previous necrotizing fasciitis of the perineum, left pararenal abscess, osteomyelitis of pubic bone, polysubstance abuse, depression, opiate dependence who presented with complaints of right-sided hip pain, admitted to , found to have pelvic abscess, that was drained by Dr. Sam on 08/01/16. Post procedure, she was hypotensive and was transferred to ICU. She received levophed for 1 day, subsequently her BP was stable and pt was transferred back to . The pt was again hypotensive, and lethargic, and was transferred to ICU. She again was on levophed for a couple of days with BP stable without pressors, and was transferred back to . For the third time, she was again hypotensive requiring another ICU transfer. It has been noted that her BP drops when she receives dilaudid. She was placed on levophed for blood pressure support. The CT findings was concerning for acute abdomen due to perforation vs ileus vs obstruction (tiny amount of free air similar to prior imaging, ?perforation gastric ulcer, gastric pneumatosis, diffusely tender abdomen, no bowel sounds heard, large amount of NG tube output bright yellow --> muddy green --> brown). Her lactic acid elevated up to 2.7, with poor UO. With IVF, her UO improved. There was fluid collection in the left pelvis, that was drained by Dr. Dunaway and put out cloudy yellow --> brown fluid collection in the pelvis (similar in color and consistency to NG tube fluid), most likely representing infected ascitic fluid, consistent with peritonitis. We were concerned for perforation in the stomach due to image findings of gastric pneumatosis. Gastrograffin studies done and showed leakage of contrast out of the stomach. Pt was taken to OR on 08/12/[address] Trammell for exploratory laparotomy with partial gastrectomy for gangrenous stomach and J tube insertion. There was no perforation found, but seeping of fluid through the gangrenous wall into the peritoneal space is entirely possible causing peritonitis. The etiology of the the gangrene is unknown, could be cocaine? vasopressors? hypotension? Her other issues this admission include right upper extremity swelling (due to fall) that has now improved, with ortho following. She also developed BROOKLYNN most likely multifactorial in nature (BUN/Cr up to 66/2.9) prerenal and ATN - insults including hypotension, contrast, vancomycin, with nephrology following, and kidney functions improved. Lines: BLANCA drain d4 J tube d4 Yao Proline (08/07/16) NG tube (08/10/16) Right pelvis catheter (08/01/16) Left pelvis catheter (08/11/16) Restrains UE discontinued after 3 days Extubated after 3 days A line removed after 4 days Respiratory * Intubated 08/12 - 08/14 Cardiovascular # Hypotension * Off levophed 08/14 645AM * IVF discontinued 08/14, consider diuresis for anasarca if BP remains stable for another 24 hours ID # Pelvic abscess sp IR drainage (right 08/01 and left 08/11) # Peritonitis due to gangrenous stomach (due to ischemia..cocaine? gastroparesis ? pressors?) - 08/11: [place] [address], VRE, enterobacter, yeast, lactobacillus. * Oxacillin started to cover MSSA on 08/01, discontinued on 08/10/16. Zosyn started on 08/10/16 to cover pseudomonas. Fluconazole 400 IV q8 started on 08/12 for yeast in ascitic fluid, changed to daily when kidney functions improved. Zosyn discontinued and meropenem started on 08/13. * The tube should be open to external gravity drainage via drainage bag. Tube should be flushed Q shift with 10 mL normal saline. Strict output should be measured, not including these flushes. # S/P partial gastrectomy for gangrenous stomach, with J tube * Tube feeding as per surgery and nutrition * Continue IV protonix * Appreciate surgery input * NG tube low wall suction. NOTHING THROUGH NG TUBE, sucralfate has been discontinued. * PO meds have been discontinued including lexapro, haldol, lyrica, na bicarb, senna, docusate, tylenol, simethicone. These meds would need to be reordered once pt can eat. # Necrotic decubits ulcer - Excised at bedside 08/10 - Not likely to be source of infection # Right shoulder pain with decreased passive and active ROM (improving) # Right elbow swelling (improving) - Xray and US obtained * Refuses MRI unless done under anesthesia * Appreciate Ortho (Dr. Schulz) input # The scalp lesion popped 08/02 PM, with purulent drainage noted - Alopecia noted Metabolic # Acute kidney injury * Continue to follow kidney functions * Appreciate nephro input * Consider starting renvela if phos elevated # Hyponatremia * Continue to follow sodium level * Appreciate nephro input # Hyperkalemia * Continue to monitor Psych # Depression # Hx of drug abuse * On the -10 and the discharge instructions, please ask the receiving facility/ ECF to call and make an intake appointment at [facility], [address] [place] [address] when her discharge date is known, . * Cannot go home with proline, must go to rehab # Agitation * IV benadryl PRN Endocrine # Diabetes mellitus * Novolog tidac/qhs * Levemir 60 bid ON HOLD,consider restarting at lower dose * Watch blood sugar closely * Consider endo consult Alimentary * On tube feeds Skin # Decubitus ulcer * Wound consult with Dr. English appreciated * Consulted surgery, necrotic patch excised at bedside, no deep tracking or necrosis or fasciitis noted * Consider rectal tube placement Diet: tube feeds DVT ppx: alps and heparin FC Consults: ID, surgery, renal, psych, ortho, PT, wound, nutrition Labs: ICU critically ill , cbc for leukocytosis, LA for lactic acidosis Problem List: 1. S/P gastrectomy Pain Ratin Tomorrow's Labs & Rationales: CBC and ICU for critically ill Plan DVT/Prophylaxis: mechanical, pharmacological
[2016-08-15 08:00] VITALS: BP 106/50
--- NOTE | 2016-08-15 09:17 | NUR ---
EXTREMELY LARGE WATERY BROWN GUIAC NEGATIVE STOOL, C-DIFF SENT
--- NOTE | 2016-08-15 11:39 | PN- Infect Dx ---
Subjective Subjective: Afebrile. She feels improved but would like to take something po. She does report persistent abdominal pain. Objective Last 24 Hrs of Vital Signs/I&O Vital Signs Date Time Temp Pulse Resp B/P Pulse O2 O2 Flow FiO2 Ox Delivery Rate 08/15 1041 97 Nasal 3.0L Cannula 08/15 0400 200 Nasal 3.0L Cannula 08/15 0000 100 Nasal 3.0L Cannula 08/14 2200 98.0 104 12 100/58 99 Nasal 3.0L Cannula 08/14 2134 95 Nasal 3.0L Cannula 08/14 2000 Nasal 2.0L Cannula 08/14 1600 100 Nasal 3.0L Cannula 08/14 1600 96.2 100 17 108/58 100 Nasal 3.0L Cannula 08/14 1200 100 Nasal 3.0L Cannula 08/14 1146 99 Nasal 3.0L Cannula Intake & Output 08/15 1600 08/15 0800 08/15 0000 Intake Total 710 160 Output Total 2009 490 Balance -1300 -330 Intake, IV 30 Intake, Other 350 Intake, Tube 260 80 Feeding Intake, Tube 100 50 Irrigant Number 1 1 Bowel Movements Output, 120 120 Drainage Output, 1000 100 Gastric Drainage Output, Other 160 Output, Urine 730 270 Physical Exam Other Physical Findings: She appears comfortable in no acute distress HEENT NG tube in place with 350 mL output overnight Chest Pro-Line in the left upper chest with no inflammation at the site Lungs are clear anteriorly Heart regular rhythm with no murmur Abdomen distended, tender to palpation diffusely, with positive bowel sounds; left lower quadrant catheter with 175 mL output yesterday and 60 mL overnight; midline (pelvic) catheter with 50 mL output yesterday and 60 mL overnight Extremities 1+ edema all extremities Orta catheter remains in place Results Last 24 Hours of Lab Results: Laboratory Tests 08/15 0400 Chemistry Sodium (137 - 145 mmol/L) 141 Potassium (3.5 - 5.1 mmol/L) 4.3 Chloride (98 - 107 mmol/L) 112 H Carbon Dioxide (22 - 30 mmol/L) 21 L Anion Gap (5 - 16) 8 BUN (7 - 17 mg/dL) 35 H Creatinine (0.5 - 1.0 mg/dL) 0.9 Estimated GFR (>60 ml/min) > 60 Glucose (65 - 99 mg/dL) 151 H Lactic Acid (0.7 - 2.1 mmol/L) 1.2 Calcium (8.4 - 10.2 mg/dL) 7.9 L Phosphorus (2.5 - 4.5 mg/dL) 3.2 Magnesium (1.6 - 2.3 mg/dL) 2.0 Total Bilirubin (0.2 - 1.3 mg/dL) 0.3 AST (14 - 36 U/L) 21 ALT (9 - 52 U/L) 35 Albumin (3.5 - 5.0 g/dL) 1.7 L Hematology CBC w Diff NO MAN DIFF REQ WBC (4.8 - 10.8 /CUMM) 5.0 RBC (4.20 - 5.40 /CUMM) 3.02 L Hgb (12.0 - 16.0 G/DL) 8.0 L Hct (37 - 47 %) 25.1 L MCV (81.0 - 99.0 FL) 83.1 MCH (27.0 - 31.0 PG) 26.6 L RDW (11.5 - 14.5 %) 18.0 H Plt Count (130 - 400 /CUMM) 118 L MPV (7.4 - 10.4 FL) 7.9 Gran % (42.2 - 75.2 %) 79.5 H Lymphocytes % (20.5 - 51.1 %) 8.8 L Monocytes % (1.7 - 9.3 %) 2.1 Eosinophils % (0 - 5 %) 9.0 H Basophils % (0.0 - 2.0 %) 0.6 Absolute Granulocytes (1.4 - 6.5 /CUMM) 4.0 Absolute Lymphocytes (1.2 - 3.4 /CUMM) 0.4 L Absolute Monocytes (0.10 - 0.60 /CUMM) 0.1 L Absolute Eosinophils (0.0 - 0.7 /CUMM) 0.4 Absolute Basophils (0.0 - 0.2 /CUMM) 0 PUBS MCHC (33.0 - 37.0 G/DL) 32.0 L Last 24 Hours of Haris Results: Ascitic fluid culture August 11 from IR aspiration positive for Enterobacter, lactobacillus, VRE and Sarah albicans Blood culture August 10 positive for probable anaerobe Stool C. difficile pending Assessment/Plan Impression: Continues to improve status post successful extubation yesterday, now 3 days status post exploratory laparotomy and partial gastrectomy for a gangrenous stomach with perforation, on Meropenem and Fluconazole for a polymicrobial peritonitis with culture of the ascitic fluid aspirated 4 days ago positive for multiple organisms, including Enterobacter and yeast and with one blood culture positive for gram-negative rods, likely anaerobes. Her temperatures and white blood cell count are normal, but her platelet count has decreased, possibly secondary to sepsis versus medications, and it should be monitored. It appears that she still has drainage from the catheter for the pelvic abscess secondary to MSSA, placed 2 weeks ago, but will need to reassess this collection once her drainage has stopped. Suggestion: 1. Monitor platelet count 2. Eventual follow-up CT of the pelvis when the drainage for her pelvic collection is minimal 3. Continue Meropenem and Fluconazole
--- NOTE | 2016-08-15 12:26 | NUR ---
PER DR. AUGUSTE AND DR. FRY DO NOT TAKE THE A-LINE OUT UNTIL AFTERNOON
--- NOTE | 2016-08-15 12:40 | PN- CRCU ---
Subjective HPI/Critical Care Issues: pt seen and examined successfully extubated pain is controlled with current dilaudid regimen no new events off levophed afebrile abdominal pain persists Objective Current Medications: Current Medications Sig/Shahla Start time Last Medication Dose Route Stop Time Status Admin Acetaminophen 1,000 MG Q6P PRN 08/07 1630 AC 08/11 N/A 1 UNIT IV 2237 Albuterol Sulfate 3 ML BID 08/05 2200 AC 08/15 INH 1040 Albuterol Sulfate 2 PUF Q4P PRN 07/30 2200 AC 08/07 INH 0914 Benzocaine/Menthol 1 RAYMUNDO Q2P PRN 08/11 2245 AC PO Collagenase 1 DEMETRA DAILY 08/04 1000 AC 08/15 TOP 0924 Diclofenac Sodium 1 DEMETRA TID PRN 07/30 1145 AC 08/05 TOP 2142 Diphenhydramine HCl 50 MG Q6P PRN 08/07 1630 AC 08/12 IV 1351 Fentanyl Citrate 1,000 MCG Q24H 08/13 0015 DC 08/13 Dextrose/Water 250 ML IV 2300 Fluconazole 400 MG DAILY 08/15 1000 AC 08/15 Sodium Chloride 200 ML IV 0925 Heparin Sodium 5,000 UNIT Q8 08/12 0600 AC 08/15 (Porcine) SC 0555 Hydromorphone HCl 0.6 MG Q4-PRN PRN 08/15 1045 AC IV Hydromorphone HCl 0.6 MG Q4-6 PRN PRN 08/15 0900 DC 08/15 IV 0926 Hydromorphone HCl 0.6 MG ONCE ONE 08/15 0545 DC 08/15 IV 08/15 0546 0557 Hydromorphone HCl 0.6 MG ONCE ONE 08/15 0215 DC 08/15 IV PUSH 08/15 0216 0205 Hydromorphone HCl 0.6 MG ONCE ONE 08/14 2030 DC 08/14 IV PUSH 08/14 2031 2040 Hydromorphone HCl 1 MG ONCE ONE 08/14 1615 DC 08/14 IV PUSH 08/14 1616 1623 Hydromorphone HCl 0.6 MG ONCE ONE 08/14 1300 DC 08/14 IV 08/14 1301 1332 Insulin Human Regular 0 Q6 08/10 1800 AC 08/15 SC 1223 Lidocaine 1 PAT DAILY 07/28 1800 AC 07/28 EXT 2004 Meropenem 1 GM IQ8 08/13 1600 AC 08/15 IV 0842 Miconazole Nitrate 1 DEMETRA AT BEDTIME 07/29 0130 AC 08/14 VAG 2339 Nystatin 1 DEMETRA TID PRN 08/12 0730 AC 08/15 TOP 0924 Pantoprazole Sodium 40 MG DAILY 08/11 1802 AC 08/15 IV 0925 Sucralfate 1 GM Q6 08/11 1815 DC 08/15 PO 0556 Vital Signs & I&O Last 24 Hrs of Vitals and I&O: Vital Signs Date Time Temp Pulse Resp B/P Pulse O2 O2 Flow FiO2 Ox Delivery Rate 08/15 1041 97 Nasal 3.0L Cannula 08/15 0400 200 Nasal 3.0L Cannula 08/15 0000 100 Nasal 3.0L Cannula 08/14 2200 98.0 104 12 100/58 99 Nasal 3.0L Cannula 08/14 2134 95 Nasal 3.0L Cannula 08/14 2000 Nasal 2.0L Cannula 08/14 1600 100 Nasal 3.0L Cannula 08/14 1600 96.2 100 17 108/58 100 Nasal 3.0L Cannula Intake & Output 08/15 1600 08/15 0800 08/15 0000 Intake Total 710 160 Output Total 2009 490 Balance -1300 -330 Intake, IV 30 Intake, Other 350 Intake, Tube 260 80 Feeding Intake, Tube 100 50 Irrigant Number 1 1 Bowel Movements Output, 120 120 Drainage Output, 1000 100 Gastric Drainage Output, Other 160 Output, Urine 730 270 Exam Other Physical Findings: gen alert and comfortable heent ngt cvs s1, s2 lungs clear anterior chest, does not want to be turned proline in place abd distended, tenderness ext 1+ edema Results Last 24 Hrs of Lab Results: Laboratory Tests 08/15/16 0400: Anion Gap 8, Estimated GFR > 60, Glucose 151 H, Lactic Acid 1.2, Calcium 7.9 L , Phosphorus 3.2, Magnesium 2.0, Total Bilirubin 0.3, AST 21, ALT 35, Albumin 1.7 L, CBC w Diff NO MAN DIFF REQ, RBC 3.02 L, MCV 83.1, MCH 26.6 L, RDW 18.0 H, MPV 7.9, Gran % 79.5 H, Lymphocytes % 8.8 L, Monocytes % 2.1, Eosinophils % 9.0 H, Basophils % 0.6, Absolute Granulocytes 4.0, Absolute Lymphocytes 0.4 L, Absolute Monocytes 0.1 L, Absolute Eosinophils 0.4, Absolute Basophils 0, PUBS MCHC 32.0 L Impression/Plan Impression/Plan Impression/Plan: Impression 40 year old woman - hx of multiple collections/pus, MSSA, s/p partial gastrectomy - loculated right pleural effusion chronic - hyponatremia improved - BROOKLYNN stable - thrombocytopenia Plan - ID follow up, on meropenem and fluconazole - nephrology following - surgical follow up - hemodynamic monitoring - off levophed - pain control - monitor coags, cbc - DVT prophylaxis at all times TTS 35 min
[2016-08-15 16:00] VITALS: BP 94/44
[2016-08-15 23:00] VITALS: BP 100/50
--- NOTE | 2016-08-16 00:45 | NUR ---
PT ALERT AND ORIENTED PAIN SCALE 2. ON 3L O2, SATURATION 99%, LUNGS SOUND CLEAR.ABDOMEN SOFT,HYPOACTIVE BS. TOLERATING TF OF VITAL AF AT 30ML/H. NGT IN PLACE, DRAINING TO GREEN DRAINAGE. ELIAS IN [place], [place] UO AT THIS TIME.
--- NOTE | 2016-08-16 06:55 | PN- General Surgery ---
See Addendum Subjective Subjective: s/p subtotal gastrectomy continued c/o incisional pain otherwise no others denies cp, sob tolerating tube feeds advancing to goal Objective Vital Signs and I&Os Vital Signs Date Time Temp Pulse Resp B/P Pulse O2 O2 Flow FiO2 Ox Delivery Rate 08/16 0400 98 Nasal 3.0L Cannula 08/16 0000 99 Nasal 3.0L Cannula 08/15 2300 96.7 106 24 100/50 100 Nasal 3.0L Cannula 08/15 2000 100 Nasal 3.0L Cannula 08/15 1932 100 Nasal 3.0L Cannula 08/15 1600 100 Nasal 3.0L Cannula 08/15 1600 97.1 106 16 94/44 100 Nasal 3.0L Cannula 08/15 1200 100 Nasal 3.0L Cannula 08/15 1041 97 Nasal 3.0L Cannula 08/15 0800 97.7 106 14 106/50 95 Nasal 3.0L Cannula 08/15 0800 100 Nasal 3.0L Cannula Intake & Output 08/16 0800 08/16 0000 08/15 1600 08/15 0800 08/15 0000 08/14 1600 Intake Total 380 550 710 160 830 Output Total 9941 582 0441 490 955 Balance -1350 -370 -1300 -330 -125 Intake, IV 40 270 30 640 Intake, Oral 0 0 Intake, Other 0 350 30 Intake, Tube 240 180 260 80 60 Feeding Intake, Tube 100 100 100 50 100 Irrigant Number 2 1 1 1 Bowel Movements Output, 1080 270 120 120 305 Drainage Output, 50 1000 100 150 Gastric Drainage Output, Other 160 Output, Urine 650 600 730 270 500 Physical Exam: Gen.: Alert and complaining of pain. Skin: Warm and dry Abdomen: Soft, obese, appropriate incisional tenderness, bowel sounds positive. Surgical dressing was recently changed due to drainage around BLANCA. The BLANCA is holding suction with serosanguineous drainage in the bulb. There were 2 pelvic drains with scant output. Extremities: Bilateral lower extremities were warm without calf tenderness and there is trace edema present. Results Last 48 Hours of Labs: Laboratory Tests 08/16 399 Chemistry Sodium (137 - 145 mmol/L) 141 Potassium (3.5 - 5.1 mmol/L) 4.3 Chloride (98 - 107 mmol/L) 112 H Carbon Dioxide (22 - 30 mmol/L) 21 L Anion Gap (5 - 16) 8 BUN (7 - 17 mg/dL) 35 H Creatinine (0.5 - 1.0 mg/dL) 0.9 Estimated GFR (>60 ml/min) > 60 Glucose (65 - 99 mg/dL) 151 H Lactic Acid (0.7 - 2.1 mmol/L) 1.2 Calcium (8.4 - 10.2 mg/dL) 7.9 L Phosphorus (2.5 - 4.5 mg/dL) 3.2 Magnesium (1.6 - 2.3 mg/dL) 2.0 Total Bilirubin (0.2 - 1.3 mg/dL) 0.3 AST (14 - 36 U/L) 21 ALT (9 - 52 U/L) 35 Albumin (3.5 - 5.0 g/dL) 1.7 L Hematology CBC w Diff NO MAN DIFF REQ WBC (4.8 - 10.8 /CUMM) 5.0 RBC (4.20 - 5.40 /CUMM) 3.02 L Hgb (12.0 - 16.0 G/DL) 8.0 L Hct (37 - 47 %) 25.1 L MCV (81.0 - 99.0 FL) 83.1 MCH (27.0 - 31.0 PG) 26.6 L RDW (11.5 - 14.5 %) 18.0 H Plt Count (130 - 400 /CUMM) 118 L MPV (7.4 - 10.4 FL) 7.9 Gran % (42.2 - 75.2 %) 79.5 H Lymphocytes % (20.5 - 51.1 %) 8.8 L Monocytes % (1.7 - 9.3 %) 2.1 Eosinophils % (0 - 5 %) 9.0 H Basophils % (0.0 - 2.0 %) 0.6 Absolute Granulocytes (1.4 - 6.5 /CUMM) 4.0 Absolute Lymphocytes (1.2 - 3.4 /CUMM) 0.4 L Absolute Monocytes (0.10 - 0.60 /CUMM) 0.1 L Absolute Eosinophils (0.0 - 0.7 /CUMM) 0.4 Absolute Basophils (0.0 - 0.2 /CUMM) 0 PUBS MCHC (33.0 - 37.0 G/DL) 32.0 L Assessment/Plan Assessment/Plan Limit narcotics Follow-up morning laboratory studies Continue to advance tube feeds to goal as tolerated Total respiratory care Out of bed to chair Keep NG tube to suction patient may have small amounts of ice chips to moisten her mouth Keep drains to self suction Continue antibiotics Care per primary team and follow-up consultation recommendations
[2016-08-16 07:42] VITALS: BP 100/50
--- NOTE | 2016-08-16 08:40 | PN- Resident CRCU ---
Subjective HPI/CRCU Issues: Agent seen and examined this morning. She was lying comfortably in bed in no acute distress. He was complaining of generalized body aches, and the fact that she cannot eat or drink anything bothers her. She understands why she is nothing by mouth but feels frustrated secondary to prolonged illness. NG tube in place and draining green bilious liquid, means on 1 L nasal cannula oxygen satting in the 90s, systolic blood pressure around 90. Objective Vital Signs & I&O Last 8 Hrs of Vitals and I&O: Vital Signs Date Time Temp Pulse Resp B/P Pulse O2 O2 Flow FiO2 Ox Delivery Rate 08/16 0808 95 Nasal 1.0L Cannula 08/16 0742 97 Nasal 3.0L Cannula 08/16 0742 97.6 113 23 100/50 97 Nasal 3.0L Cannula 08/16 0400 98 Nasal 3.0L Cannula 08/16 0000 99 Nasal 3.0L Cannula 08/15 2300 96.7 106 24 100/50 100 Nasal 3.0L Cannula 08/15 2000 100 Nasal 3.0L Cannula 08/15 1932 100 Nasal 3.0L Cannula 08/15 1600 100 Nasal 3.0L Cannula 08/15 1600 97.1 106 16 94/44 100 Nasal 3.0L Cannula 08/15 1200 100 Nasal 3.0L Cannula Intake & Output 08/16 1600 08/16 0800 08/16 0000 Intake Total 380 Output Total 1730 Balance -1350 Intake, IV 40 Intake, Tube 240 Feeding Intake, Tube 100 Irrigant Output, 1080 Drainage Output, Urine 650 Exam General Appearance: well developed/nourished, no apparent distress, alert, awake Head: atraumatic, normal appearance Respiratory: normal breath sounds Cardiovascular: regular rate/rhythm Gastrointestinal: normal bowel sounds, ryan drain in place with pinkish drainage Extremities: swelling Weaning Parameters NIF: 36 Minute Volume: 10.0 Resp rate: 16 Vt: 602 Heart Rate: 100 Weaning Schedule Start Time: 0847 Minute Volume: 10.0 Resp Rate: 16 Vt: 602 Heart Rate: 100 End Time: 1136 Minute Volume: 7.56 Resp Rate: 18 Vt: 507 Heart Rate: 104 Current Medications: Current Medications Sig/Shahla Start time Last Medication Dose Route Stop Time Status Admin Acetaminophen 1,000 MG Q6P PRN 08/07 1630 AC 03/27 N/A 1 UNIT IV 2237 Albuterol Sulfate 3 ML BID 08/05 2200 AC 08/16 INH 0803 Albuterol Sulfate 2 PUF Q4P PRN 07/30 2200 AC 08/07 INH 0914 Alteplase, 2 MG ONE ONE 08/16 0630 DC 08/16 Recombinant IV 08/16 0631 0927 Benzocaine/Menthol 1 RAYMUNDO Q2P PRN 08/11 2245 AC PO Collagenase 1 DEMETRA DAILY 08/04 1000 AC 08/16 TOP 0954 Diclofenac Sodium 1 DEMETRA TID PRN 07/30 1145 AC 08/05 TOP 2142 Diphenhydramine HCl 50 MG Q6P PRN 08/07 1630 AC 08/12 IV 1351 Fluconazole 400 MG DAILY 08/15 1000 AC 08/15 Sodium Chloride 200 ML IV 0925 Heparin Sodium 5,000 UNIT Q8 08/12 0600 AC 08/16 (Porcine) SC 0554 Hydromorphone HCl 0.6 MG Q4-PRN PRN 08/15 1045 AC 08/16 IV 0916 Insulin Human Regular 0 Q6 08/10 1800 AC 08/16 SC 0554 Lidocaine 1 PAT DAILY 07/28 1800 AC 07/28 EXT 2004 Meropenem 1 GM IQ8 08/13 1600 AC 08/16 IV 0914 Miconazole Nitrate 1 DEMETRA AT BEDTIME 07/29 0130 AC 08/14 VAG 2339 Nystatin 1 DEMETRA TID PRN 08/12 0730 AC 08/16 TOP 0954 Pantoprazole Sodium 40 MG DAILY 08/11 1802 AC 08/16 IV 0914 Sucralfate 1 GM Q6 08/16 0830 AC 08/16 PO 0955 Antibiotics Antibiotic: meropenem fluconazole Impression/Plan Impression/Problem List Impression: 40-year-old lady with a PMH of diabetes, previous right-sided hemorrhagic pleural effusion S/P Pleurx catheter, lytic therapy 2, previous MSSA sepsis likely secondary to pro-line catheter, previous necrotizing fasciitis of the perineum, left pararenal abscess, osteomyelitis of pubic bone, polysubstance abuse, depression, opiate dependence who presented with complaints of right-sided hip pain, admitted to , found to have pelvic abscess, that was drained by Dr. Sam on 08/01/16. Post procedure, she was hypotensive and was transferred to ICU. She received levophed for 1 day, subsequently her BP was stable and pt was transferred back to . The pt was again hypotensive, and lethargic, and was transferred to ICU. She again was on levophed for a couple of days with BP stable without pressors, and was transferred back to . For the third time, she was again hypotensive requiring another ICU transfer. It has been noted that her BP drops when she receives dilaudid. She was placed on levophed for blood pressure support. The CT findings was concerning for acute abdomen due to perforation vs ileus vs obstruction (tiny amount of free air similar to prior imaging, ?perforation gastric ulcer, gastric pneumatosis, diffusely tender abdomen, no bowel sounds heard, large amount of NG tube output bright yellow --> muddy green --> brown). Her lactic acid elevated up to 2.7, with poor UO. With IVF, her UO improved. There was fluid collection in the left pelvis, that was drained by Dr. Dunaway and put out cloudy yellow --> brown fluid collection in the pelvis (similar in color and consistency to NG tube fluid), most likely representing infected ascitic fluid, consistent with peritonitis. We were concerned for perforation in the stomach due to image findings of gastric pneumatosis. Gastrograffin studies done and showed leakage of contrast out of the stomach. Pt was taken to OR on 08/12/[address] Trammell for exploratory laparotomy with partial gastrectomy for gangrenous stomach and J tube insertion. There was no perforation found, but seeping of fluid through the gangrenous wall into the peritoneal space is entirely possible causing peritonitis. The etiology of the the gangrene is unknown, could be cocaine? vasopressors? hypotension? Her other issues this admission include right upper extremity swelling (due to fall) that has now improved, with ortho following. She also developed BROOKLYNN most likely multifactorial in nature (BUN/Cr up to 66/2.9) prerenal and ATN - insults including hypotension, contrast, vancomycin, with nephrology following, and kidney functions improved. Lines: RYAN drain d5 J tube d5 Orta Proline (08/07/16) NG tube (08/10/16) Right pelvis catheter (08/01/16) Left pelvis catheter (08/11/16) Restrains UE discontinued after 3 days Extubated after 3 days A line removed after 4 days Respiratory * Intubated 08/12 - 08/14 Cardiovascular # Hypotension * Off levophed 08/14 645AM * IVF discontinued 08/14, consider diuresis for anasarca if BP remains stable for another 24 hours ID # Pelvic abscess sp IR drainage (right 08/01 and left 08/11) # Peritonitis due to gangrenous stomach (due to ischemia..cocaine? gastroparesis ? pressors?) - 08/11: [place] [address], VRE, enterobacter, yeast, lactobacillus. * Oxacillin started to cover MSSA on 08/01, discontinued on 08/10/16. Zosyn started on 08/10/16 to cover pseudomonas. Fluconazole 400 IV q8 started on 08/12 for yeast in ascitic fluid, changed to daily when kidney functions improved. Zosyn discontinued and meropenem started on 08/13. * The tube should be open to external gravity drainage via drainage bag. Tube should be flushed Q shift with 10 mL normal saline. Strict output should be measured, not including these flushes. # S/P partial gastrectomy for gangrenous stomach, with J tube * Tube feeding as per surgery and nutrition * Continue IV protonix * Appreciate surgery input * NG tube low wall suction. NOTHING THROUGH NG TUBE, sucralfate has been discontinued. * PO meds have been discontinued including lexapro, haldol, lyrica, na bicarb, senna, docusate, tylenol, simethicone. These meds would need to be reordered once pt can eat. # Necrotic decubits ulcer - Excised at bedside 08/10 - Not likely to be source of infection # Right shoulder pain with decreased passive and active ROM (improving) # Right elbow swelling (improving) - Xray and US obtained * Refuses MRI unless done under anesthesia * Appreciate Ortho (Dr. Schulz) input # The scalp lesion popped 08/02 PM, with purulent drainage noted - Alopecia noted Metabolic # Acute kidney injury * Continue to follow kidney functions * Appreciate nephro input * Consider starting renvela if phos elevated # Hyponatremia * Continue to follow sodium level * Appreciate nephro input # Hyperkalemia * Continue to monitor Psych # Depression # Hx of drug abuse * On the -10 and the discharge instructions, please ask the receiving facility/ ECF to call and make an intake appointment at [facility], [address] [place] [address], [place], [place] when her discharge date is known, . * Cannot go home with proline, must go to rehab # Agitation * IV benadryl PRN Endocrine # Diabetes mellitus * Novolog tidac/qhs * Levemir 60 bid ON HOLD,consider restarting at lower dose * Watch blood sugar closely * Consider endo consult Alimentary * On tube feeds Skin # Decubitus ulcer * Wound consult with Dr. English appreciated * Consulted surgery, necrotic patch excised at bedside, no deep tracking or necrosis or fasciitis noted * Consider rectal tube placement Diet: tube feeds DVT ppx: alps and heparin FC Problem List: 1. S/P colostomy takedown 2. S/P gastrectomy 3. Pelvic abscess Pain Ratin Tomorrow's Labs & Rationales: icu bundle cbc Plan DVT/Prophylaxis: mechanical, pharmacological
--- NOTE | 2016-08-16 08:44 | PN- CRCU ---
Subjective HPI/Critical Care Issues: The patient is awake and alert. She continues to complain of a dry mouth and generalized pain. She was given Lasix yesterday with good effect. There were no overnight events Objective Current Medications: Current Medications Sig/Shahla Start time Last Medication Dose Route Stop Time Status Admin Acetaminophen 1,000 MG Q6P PRN 08/07 1630 AC 08/11 N/A 1 UNIT IV 2237 Albuterol Sulfate 3 ML BID 08/05 2200 AC 08/16 INH 0803 Albuterol Sulfate 2 PUF Q4P PRN 07/30 2200 AC 08/07 INH 0914 Alteplase, 2 MG ONE ONE 08/16 0630 DC Recombinant IV 08/16 0631 Benzocaine/Menthol 1 RAYMUNDO Q2P PRN 08/11 2245 AC PO Collagenase 1 DEMETRA DAILY 08/04 1000 AC 08/15 TOP 0924 Diclofenac Sodium 1 DEMETRA TID PRN 07/30 1145 AC 08/05 TOP 2142 Diphenhydramine HCl 50 MG Q6P PRN 08/07 1630 AC 08/12 IV 1351 Fluconazole 400 MG DAILY 08/15 1000 AC 08/15 Sodium Chloride 200 ML IV 0925 Heparin Sodium 5,000 UNIT Q8 08/12 0600 AC 08/16 (Porcine) SC 0554 Hydromorphone HCl 0.6 MG Q4-PRN PRN 08/15 1045 AC 08/16 IV 0500 Hydromorphone HCl 0.6 MG Q4-6 PRN PRN 08/15 0900 DC 08/15 IV 0926 Insulin Human Regular 0 Q6 08/10 1800 AC 08/16 SC 0554 Lidocaine 1 PAT DAILY 07/28 1800 AC 07/28 EXT 2004 Meropenem 1 GM IQ8 08/13 1600 AC 08/16 IV 0008 Miconazole Nitrate 1 DEMETRA AT BEDTIME 07/29 0130 AC 08/14 VAG 2339 Nystatin 1 DEMETRA TID PRN 08/12 0730 AC 08/15 TOP 0924 Pantoprazole Sodium 40 MG DAILY 08/11 1802 AC 08/15 IV 0925 Sucralfate 1 GM Q6 08/16 0830 AC PO Sucralfate 1 GM Q6 08/11 1815 DC 08/15 PO 0556 Vital Signs & I&O Last 24 Hrs of Vitals and I&O: Vital Signs Date Time Temp Pulse Resp B/P Pulse O2 O2 Flow FiO2 Ox Delivery Rate 08/16 0808 95 Nasal 1.0L Cannula 08/16 0742 97 Nasal 3.0L Cannula 08/16 0742 97.6 113 23 100/50 97 Nasal 3.0L Cannula 08/16 0400 98 Nasal 3.0L Cannula 08/16 0000 99 Nasal 3.0L Cannula 08/15 2300 96.7 106 24 100/50 100 Nasal 3.0L Cannula 08/15 2000 100 Nasal 3.0L Cannula 08/15 1932 100 Nasal 3.0L Cannula 08/15 1600 100 Nasal 3.0L Cannula 08/15 1600 97.1 106 16 94/44 100 Nasal 3.0L Cannula 08/15 1200 100 Nasal 3.0L Cannula 08/15 1041 97 Nasal 3.0L Cannula Intake & Output 08/16 1600 08/16 0800 08/16 0000 Intake Total 380 Output Total 1730 Balance -1350 Intake, IV 40 Intake, Tube 240 Feeding Intake, Tube 100 Irrigant Output, 1080 Drainage Output, Urine 650 Exam General Appearance: alert, awake, mild distress, generalized anasarca Head: atraumatic, normal appearance Neck: supple Respiratory: no respiratory distress, lungs clear Cardiovascular: regular rate/rhythm Abdomen: generalized tenderness to touch Extremities: anasarca with LE swelling Skin: intact, normal color, warm/dry Results Last 24 Hrs of Lab Results: Pending. Impression/Plan Impression/Plan Impression/Plan: 1. History of multiple collections/pus, MSSA, s/p partial gastrectomy. 2. Loculated right pleural effusion, chronic. 3. Hyponatremia, resolved. 4. BROOKLYNN, stable. 5. Thrombocytopenia, worse on yesterday's CBC. 6. Anemia without evidence of active bleeding. 7. Diabetes mellitus - on SS insluin, Levemir on hold. 8. Chronic pain. 9. History of drug abuse. Recommendations: * Follow-up morning lab results. * Continue tube feeds, advance as tolerated. * Ok for 1 dose of PO carafate, per surgery. * Patient to stay NPO otherwise, can swab mouth only. * Continue antibiotics as per ID - meropenem and fluconazole. * Will give Lasix 20 mg IV x 1 today, if ok with nephrology. * Continue Dilaudid for pain control, do not advance current dosing schedule. * Benadryl as needed. * Continue DVT and GI prophylaxis. * Skin care protocol. * Continue to monitor in the critical care unit, and continue all supportive care.
--- NOTE | 2016-08-16 09:51 | PN- Infect Dx ---
Subjective Subjective: Afebrile. Her blood pressure is stable off pressors. She continues to complain of abdominal pain and dry mouth. Objective Last 24 Hrs of Vital Signs/I&O Vital Signs Date Time Temp Pulse Resp B/P Pulse O2 O2 Flow FiO2 Ox Delivery Rate 08/16 0808 95 Nasal 1.0L Cannula 08/16 0742 97 Nasal 3.0L Cannula 08/16 0742 97.6 113 23 100/50 97 Nasal 3.0L Cannula 08/16 0400 98 Nasal 3.0L Cannula 08/16 0000 99 Nasal 3.0L Cannula 08/15 2300 96.7 106 24 100/50 100 Nasal 3.0L Cannula 08/15 2000 100 Nasal 3.0L Cannula 08/15 1932 100 Nasal 3.0L Cannula 08/15 1600 100 Nasal 3.0L Cannula 08/15 1600 97.1 106 16 94/44 100 Nasal 3.0L Cannula 08/15 1200 100 Nasal 3.0L Cannula 08/15 1041 97 Nasal 3.0L Cannula Intake & Output 08/16 1600 08/16 0800 08/16 0000 Intake Total 380 Output Total 1730 Balance -1350 Intake, IV 40 Intake, Tube 240 Feeding Intake, Tube 100 Irrigant Output, 1080 Drainage Output, Urine 650 Physical Exam Other Physical Findings: She appears comfortable in no acute distress HEENT NG tube in place with 350 mL output yesterday Neck Pro-Line in the left upper chest with no inflammation at the site Lungs are clear Heart regular rhythm with no murmur Abdomen soft, tender to palpation diffusely, with positive bowel sounds; BLANCA drain in place with bloody drainage; left lower quadrant catheter with 100 mL output yesterday; midline catheter with 60 mL output yesterday Extremities 1+ edema all extremities Orta catheter remains in place Results Last 24 Hours of Lab Results: No labs from today Last 24 Hours of Haris Results: Stool C. difficile August 15 negative Blood cultures 2 August 10 positive for anaerobic gram-negative rods Assessment/Plan Impression: Continues to improve now 4 days status post exploratory laparotomy and partial gastrectomy for a gangrenous stomach with perforation, on Meropenem and Fluconazole for a polymicrobial peritonitis with culture of the ascitic fluid aspirated 5 days ago positive for multiple organisms, including Enterobacter and yeast and with blood cultures from 6 days ago positive for anaerobic gram- negative rods. Her temperatures remain normal, but her platelet count yesterday was decreased, possibly secondary to sepsis versus medications, and it needs to be monitored. It appears that she still has drainage from the catheter for the pelvic abscess secondary to MSSA, placed 15 days ago, but will need to reassess this collection once her drainage has stopped. Suggestion: 1. Repeat labs with close monitoring of her platelet count 2. Eventual follow-up CT of the pelvis when the drainage from her pelvic collection is minimal 3. Continue Meropenem and Fluconazole
--- NOTE | 2016-08-16 09:53 | NUR ---
ALTEPLASE INSERTED LCW PROLINE AT 0930
--- NOTE | 2016-08-16 12:32 | RADIOLOGY REPORT ---
EXAMINATION: XR PORTABLE CHEST CLINICAL INFORMATION: 41-year-old woman with congestion. COMPARISON: 08/14/1929 17 chest radiograph TECHNIQUE: Portable AP view of the chest was obtained. FINDINGS: Lung volumes remain low post removal of an endotracheal tube. A left-sided central venous catheter appears to have been retracted in the interim and the tip now projects over the region of the distal innominate vein. A nasogastric tube also appears to have been retracted with the side-port probably above the GE junction and the tip projecting over the most proximal portion of the stomach. There is persistent opacity at the right lung base that probably reflects elevation of the right hemidiaphragm as well as a right-sided effusion, probably with atelectasis. IMPRESSION: 1. Low lung volumes with increasing opacity at the right lung base that likely reflects an effusion with associated atelectasis. 2. Apparent interval retraction of a left sided central venous catheter and nasogastric tube.
[2016-08-16 14:08] LABS: ABSOLUTE BASOPHIL COUNT 0 /CUMM (0.0-0.2); ABSOLUTE EOSINOPHIL COUNT 0.5 /CUMM (0.0-0.7); ABSOLUTE GRANULOCYTE CT 4.5 /CUMM (1.4-6.5); ABSOLUTE LYMPH COUNT 0.5 /CUMM (1.2-3.4); ABSOLUTE MONOCYTE COUNT 0.4 /CUMM (0.10-0.60); BASOPHIL % 0.7 % (0.0-2.0); EOSINOPHIL % 9.1 % (0-5); GRANULOCYTE % 76.4 % (42.2-75.2); HEMATOCRIT 25.2 % (37-47); MEAN CORPUSCULAR HGB 26.5 PG (27.0-31.0); MEAN CORPUSCULAR HGB CONC 31.5 G/DL (33.0-37.0); MEAN CORPUSCULAR VOLUME 83.9 FL (81.0-99.0); MEAN PLATELET VOLUME 8.3 FL (7.4-10.4); PLATELET COUNT 149 /CUMM (130-400); RBC DISTRIBUTION WIDTH 18.8 % (11.5-14.5); RED BLOOD CELL CT 3.01 /CUMM (4.20-5.40)
[2016-08-16 14:31] LABS: WHITE BLOOD CELL COUNT 5.9 /CUMM (4.8-10.8)
[2016-08-16 16:00] VITALS: BP 110/58
--- NOTE | 2016-08-16 20:51 | NUR ---
PT A/O GARCÍA TO COMMAND REQUESTING PAIN MED Q4H FOR ABD PAIN OF 7. MEDICATED WITH RELIEF. LIMITS SET TO TURNING IN BED AND DRINKING, BED NOW ON ROTATION MODE. NGT TO LWS DRINING LT GREEN FLUID, TF VIA JT ORDERED. ABD DRSG INTACT WITH DRAINS IN PLACE.
[2016-08-16 22:17] VITALS: BP 97/44
--- NOTE | 2016-08-17 05:58 | PN- General Surgery ---
See Addendum Subjective Subjective: No acute overnight events reported. Patient is weepy, crying about npo status. Denies chest pain, shortness of breath and difficulty breathing. Has ngt but denies nausea and vomitting. Admits to having pain but is more upset about dry mouth. Objective Vital Signs and I&Os Vital Signs Date Time Temp Pulse Resp B/P Pulse O2 O2 Flow FiO2 Ox Delivery Rate 08/17 0353 96 08/17 0046 94 Room Air 08/16 2217 99.7 116 20 97/44 94 Room Air 08/16 2024 94 Room Air 08/16 2016 93 Room Air 08/16 1600 98.7 110 15 110/58 95 Room Air 08/16 1600 95 Room Air 08/16 1201 96 Room Air 08/16 1200 98 Nasal 1.0L Cannula 08/16 0808 95 Nasal 1.0L Cannula 08/16 0742 97 Nasal 3.0L Cannula 08/16 0742 97.6 113 23 100/50 97 Nasal 3.0L Cannula Intake & Output 08/17 0808/17 0000 08/16 1600 08/16 0800 08/16 0000 08/15 1600 Intake Total 340 640 380 550 Output Total 874 191 1112 920 Balance - -370 Intake, IV 240 40 270 Intake, Oral 0 0 Intake, Other 0 Intake, Tube 240 300 240 180 Feeding Intake, Tube 100 100 100 100 Irrigant Number 1 2 Bowel Movements Output, 120 1080 270 Drainage Output, 100 50 Gastric Drainage Output, Other 0 Output, Urine 540 650 650 600 Physical Exam: General: Alert and oriented x3, crying Cardiac: tachycardic, 110's-120's, s1s2 Pulm: CTA bilaterally Abdomen: Non-distended, dressings intact, pelvic drain x2 with minimal output overnight, jpx1 holding suction, serosanguinous output. Tolerating j tube feeds. Extremities: Moves all extremities. Distal sensations intact. Calves soft bilaterally Assessment/Plan Assessment/Plan This is a 41 year old POD 5 s/p subtotal gastrectomy for gangrenous stomach -Strict NPO -Continue tube feeds as tolerated -Continue carafate -Continue protonix iv for gi ppx -SQ hep for dvt ppx -Continue meropenum/diflucan -f/u am labs -Continue medicine as primary team -Will d/w Dr. Trammell
[2016-08-17 06:09] LABS: ABSOLUTE BASOPHIL COUNT 0.1 /CUMM (0.0-0.2); ABSOLUTE EOSINOPHIL COUNT 0.5 /CUMM (0.0-0.7); ABSOLUTE GRANULOCYTE CT 4.3 /CUMM (1.4-6.5); ABSOLUTE LYMPH COUNT 0.7 /CUMM (1.2-3.4); ABSOLUTE MONOCYTE COUNT 0.4 /CUMM (0.10-0.60); BASOPHIL % 0.9 % (0.0-2.0); EOSINOPHIL % 9.2 % (0-5); GRANULOCYTE % 71.9 % (42.2-75.2); HEMATOCRIT 24.5 % (37-47); MEAN CORPUSCULAR HGB 27.2 PG (27.0-31.0); MEAN CORPUSCULAR HGB CONC 32.2 G/DL (33.0-37.0); MEAN CORPUSCULAR VOLUME 84.5 FL (81.0-99.0); PLATELET COUNT 168 /CUMM (130-400); RBC DISTRIBUTION WIDTH 18.1 % (11.5-14.5)
[2016-08-17 08:00] VITALS: BP 106/58
--- NOTE | 2016-08-17 08:12 | PN- Resident CRCU ---
Subjective HPI/CRCU Issues: Pt seen this morning, intermittently cries due to discomfort. Sucralfate has been restarted. Pt wants to talk to Dr. Trammell. Reports that the site of NG tube insertion hurts whenever she bumps it on something. Labs reviewed WBC 6, hb 7.9, platelet 168, na 141, k 4.2, bun/cr 19/0.6, phos 2.1, mag 1.8, given 1X mag sulf. Noted that her hb is slowly trending down, most likely due to blood draws and perioperative blood loss. Would consider discontinuing heparin for dvt ppx if hb continues to drop. 24 hours data: Maxt temp 99 HR 106-120 RR13-23 Systolic bp 81-103 diastolic bp 44-65 BS 186, 137 CVP 5-12 +1320 -4185 (1980 UO,1525 NG bilious, JP590, right pelvis 60, left pelvis 20 serosanguinous) Objective Vital Signs & I&O Last 8 Hrs of Vitals and I&O: Intake & Output 08/17 1600 08/17 0800 08/17 0000 Intake Total 340 340 Output Total 1035 760 Balance -695 -420 Intake, Tube 240 240 Feeding Intake, Tube 100 100 Irrigant Number 1 Bowel Movements Output, 120 120 Drainage Output, 125 100 Gastric Drainage Output, Other 0 Output, Urine 790 540 Laboratory Tests 08/17 04 0520 1215 Chemistry Sodium (137 - 145 mmol/L) 141 142 Potassium (3.5 - 5.1 mmol/L) 4.2 4.3 Chloride (98 - 107 mmol/L) 110 H 111 H Carbon Dioxide (22 - 30 mmol/L) 27 25 Anion Gap (5 - 16) 4 L 6 BUN (7 - 17 mg/dL) 19 H 24 H Creatinine (0.5 - 1.0 mg/dL) 0.6 0.6 Estimated GFR (>60 ml/min) > 60 > 60 Glucose (65 - 99 mg/dL) 120 H 151 H Calcium (8.4 - 10.2 mg/dL) 8.1 L 8.2 L Phosphorus (2.5 - 4.5 mg/dL) 2.1 L 2.5 Magnesium (1.6 - 2.3 mg/dL) 1.8 1.9 Total Bilirubin (0.2 - 1.3 mg/dL) 0.2 0.3 AST (14 - 36 U/L) 24 28 ALT (9 - 52 U/L) 34 38 Albumin (3.5 - 5.0 g/dL) 1.8 L 1.9 L Hematology CBC w Diff NO MAN DIFF REQ NO MAN DIFF REQ WBC (4.8 - 10.8 /CUMM) 6.0 5.9 RBC (4.20 - 5.40 /CUMM) 2.90 L 3.01 L Hgb (12.0 - 16.0 G/DL) 7.9 L 7.9 L Hct (37 - 47 %) 24.5 L 25.2 L MCV (81.0 - 99.0 FL) 84.5 83.9 MCH (27.0 - 31.0 PG) 27.2 26.5 L RDW (11.5 - 14.5 %) 18.1 H 18.8 H Plt Count (130 - 400 /CUMM) 168 149 MPV (7.4 - 10.4 FL) 8.0 8.3 Gran % (42.2 - 75.2 %) 71.9 76.4 H Lymphocytes % (20.5 - 51.1 %) 11.3 L 7.7 L Monocytes % (1.7 - 9.3 %) 6.7 6.1 Eosinophils % (0 - 5 %) 9.2 H 9.1 H Basophils % (0.0 - 2.0 %) 0.9 0.7 Absolute Granulocytes (1.4 - 6.5 /CUMM) 4.3 4.5 Absolute Lymphocytes (1.2 - 3.4 /CUMM) 0.7 L 0.5 L Absolute Monocytes (0.10 - 0.60 /CUMM) 0.4 0.4 Absolute Eosinophils (0.0 - 0.7 /CUMM) 0.5 0.5 Absolute Basophils (0.0 - 0.2 /CUMM) 0.1 0 PUBS MCHC (33.0 - 37.0 G/DL) 32.2 L 31.5 L Vital Signs Date Time Temp Pulse Resp B/P Pulse O2 O2 Flow FiO2 Ox Delivery Rate 08/17 0917 94 Room Air Room Air 08/17 0353 96 08/17 0046 94 Room Air 08/16 2217 99.7 116 20 97/44 94 Room Air 08/16 2024 94 Room Air 08/16 2017 93 Room Air 08/16 1600 98.7 110 15 110/58 95 Room Air 08/16 1600 95 Room Air 08/16 1201 96 Room Air 08/16 1200 98 Nasal 1.0L Cannula Exam General Appearance: alert, awake, mild distress Respiratory: normal breath sounds Cardiovascular: regular rate/rhythm, tachycardia Gastrointestinal: tender Weaning Parameters NIF: 36 Minute Volume: 10.0 Resp rate: 16 Vt: 602 Heart Rate: 100 Weaning Schedule Start Time: 0847 Minute Volume: 10.0 Resp Rate: 16 Vt: 602 Heart Rate: 100 End Time: 1136 Minute Volume: 7.56 Resp Rate: 18 Vt: 507 Heart Rate: 104 Current Medications: Current Medications Sig/Shahla Start time Last Medication Dose Route Stop Time Status Admin Acetaminophen 1,000 MG Q6P PRN 08/07 1630 AC 08/11 N/A 1 UNIT IV 2237 Albuterol Sulfate 3 ML BID 08/05 2200 AC 08/17 INH 0916 Albuterol Sulfate 2 PUF Q4P PRN 07/30 2200 AC 08/07 INH 0914 Benzocaine/Menthol 1 RAYMUNDO Q2P PRN 08/11 2245 AC PO Collagenase 1 DEMETRA DAILY 08/04 1000 AC 08/16 TOP 0954 Diclofenac Sodium 1 DEMETRA TID PRN 07/30 1145 AC 08/05 TOP 2142 Diphenhydramine HCl 50 MG .STK-MED ONE 08/16 2141 DC IM 08/16 2142 Diphenhydramine HCl 50 MG Q6P PRN 08/07 1630 AC 08/17 IV 0614 Fluconazole 400 MG DAILY 08/15 1000 AC 08/16 Sodium Chloride 200 ML IV 1223 Heparin Sodium 5,000 UNIT Q8 08/12 0600 AC 08/17 (Porcine) SC 0508 Hydromorphone HCl 0.6 MG Q4-PRN PRN 08/15 1045 AC 08/17 IV 0829 Insulin Human Regular 0 Q6 08/10 1800 AC 08/17 SC 0524 Lidocaine 1 PAT DAILY 07/28 1800 AC 07/28 EXT 2004 Magnesium Sulfate 1 GM ONCE ONE 08/17 0830 AC 08/17 Dextrose/Water 100 ML IV 08/17 1229 0953 Meropenem 1 GM IQ8 08/13 1600 AC 08/17 IV 0829 Miconazole Nitrate 1 DEMETRA AT BEDTIME 07/29 0130 AC 08/16 VAG 2130 Nystatin 1 DEMETRA TID PRN 08/12 0730 AC 08/16 TOP 0954 Pantoprazole Sodium 40 MG DAILY 08/11 1802 AC 08/16 IV 0914 Sucralfate 1 GM Q6 08/16 0830 08/17 PO 0508 Impression/Plan Impression/Problem List Impression: 40-year-old lady with a PMH of diabetes, previous right-sided hemorrhagic pleural effusion S/P Pleurx catheter, lytic therapy 2, previous MSSA sepsis likely secondary to pro-line catheter, previous necrotizing fasciitis of the perineum, left pararenal abscess, osteomyelitis of pubic bone, polysubstance abuse, depression, opiate dependence who presented with complaints of right-sided hip pain, admitted to , found to have pelvic abscess, that was drained by Dr. Sam on 08/01/16. Post procedure, she was hypotensive and was transferred to ICU. She received levophed for 1 day, subsequently her BP was stable and pt was transferred back to . The pt was again hypotensive, and lethargic, and was transferred to ICU. She again was on levophed for a couple of days with BP stable without pressors, and was transferred back to . For the third time, she was again hypotensive requiring another ICU transfer. It has been noted that her BP drops when she receives dilaudid. She was placed on levophed for blood pressure support. The CT findings was concerning for acute abdomen due to perforation vs ileus vs obstruction (tiny amount of free air similar to prior imaging, ?perforation gastric ulcer, gastric pneumatosis, diffusely tender abdomen, no bowel sounds heard, large amount of NG tube output bright yellow --> muddy green --> brown). Her lactic acid elevated up to 2.7, with poor UO. With IVF, her UO improved. There was fluid collection in the left pelvis, that was drained by Dr. Dunaway and put out cloudy yellow --> brown fluid collection in the pelvis (similar in color and consistency to NG tube fluid), most likely representing infected ascitic fluid, consistent with peritonitis. We were concerned for perforation in the stomach due to image findings of gastric pneumatosis. Gastrograffin studies done and showed leakage of contrast out of the stomach. Pt was taken to OR on 08/12/[address] Trammell for exploratory laparotomy with partial gastrectomy for gangrenous stomach and J tube insertion. There was no perforation found, but seeping of fluid through the gangrenous wall into the peritoneal space is entirely possible causing peritonitis. The etiology of the the gangrene is unknown, could be cocaine? vasopressors? hypotension? Her other issues this admission include right upper extremity swelling (due to fall) that has now improved, with ortho following. She also developed BROOKLYNN most likely multifactorial in nature (BUN/Cr up to 66/2.9) prerenal and ATN - insults including hypotension, contrast, vancomycin, with nephrology following, and kidney functions improved. Lines: BLANCA drain d6 J tube d6 Orta Proline (08/07/16) NG tube (08/10/16) Right pelvis catheter (08/01/16) Left pelvis catheter (08/11/16) Restrains UE discontinued after 3 days Extubated after 3 days A line removed after 4 days Respiratory * Intubated 08/12 - 08/14 Cardiovascular # Hypotension * Off levophed 08/14 645AM * IVF discontinued 08/14, consider diuresis for anasarca if BP remains stable for another 24 hours ID # Pelvic abscess sp IR drainage (right 08/01 and left 08/11) # Peritonitis due to gangrenous stomach (due to ischemia..cocaine? gastroparesis ? pressors?) - 08/11: [place] [address], VRE, enterobacter, yeast, lactobacillus. * Oxacillin started to cover MSSA on 08/01, discontinued on 08/10/16. Zosyn started on 08/10/16 to cover pseudomonas. Fluconazole 400 IV q8 started on 08/12 for yeast in ascitic fluid, changed to daily when kidney functions improved. Zosyn discontinued and meropenem started on 08/13. * The tube should be open to external gravity drainage via drainage bag. Tube should be flushed Q shift with 10 mL normal saline. Strict output should be measured, not including these flushes. # S/P partial gastrectomy for gangrenous stomach, with J tube * Tube feeding as per surgery and nutrition * Continue IV protonix , sucralfate * Appreciate surgery input * NG tube low wall suction. NOTHING THROUGH NG TUBE, sucralfate has been discontinued. * PO meds have been discontinued including lexapro, haldol, lyrica, na bicarb, senna, docusate, tylenol, simethicone. These meds would need to be reordered once pt can eat. # Necrotic decubits ulcer - Excised at bedside 08/10 - Not likely to be source of infection # Right shoulder pain with decreased passive and active ROM (improving) # Right elbow swelling (improving) - Xray and US obtained * Refuses MRI unless done under anesthesia * Appreciate Ortho (Dr. Schulz) input # The scalp lesion popped 08/02 PM, with purulent drainage noted - Alopecia noted Metabolic # Acute kidney injury * Continue to follow kidney functions * Appreciate nephro input * Consider starting renvela if phos elevated # Hyponatremia * Continue to follow sodium level * Appreciate nephro input # Hyperkalemia * Continue to monitor Psych # Depression # Hx of drug abuse * On the W-10 and the discharge instructions, please ask the receiving facility/ ECF to call and make an intake appointment at [facility], [address] [place] [address] when her discharge date is known, . * Cannot go home with proline, must go to rehab # Agitation * IV benadryl PRN Endocrine # Diabetes mellitus * Novolog tidac/qhs * Levemir 60 bid ON HOLD,consider restarting at lower dose * Watch blood sugar closely * Consider endo consult Alimentary * On tube feeds Skin # Decubitus ulcer * Wound consult with Dr. English appreciated * Consulted surgery, necrotic patch excised at bedside, no deep tracking or necrosis or fasciitis noted * Consider rectal tube placement Diet: tube feeds DVT ppx: alps and heparin FC Consults: ID, surgery, renal, psych, ortho, PT, wound, nutrition Labs: ICU critically ill , cbc for leukocytosis, LA for lactic acidosis Problem List: 1. S/P gastrectomy Pain Ratin Tomorrow's Labs & Rationales: ICU and CBC for critically ill Plan DVT/Prophylaxis: mechanical, pharmacological
--- NOTE | 2016-08-17 10:08 | PN- CRCU ---
Subjective HPI/Critical Care Issues: The patient is awake and alert. She continues to complain of a dry mouth and ongoing pain. She has adequate bowel movements and is tolerating tube feeds well. Her MAXIMUM TEMPERATURE was 99.7. Her oxygen saturation is in the high 90s on room air. She has had significant negative fluid balance over the past 24 hours. There were no overnight events. Objective Current Medications: Current Medications Sig/Shahla Start time Last Medication Dose Route Stop Time Status Admin Acetaminophen 1,000 MG Q6P PRN 08/07 1630 AC 08/11 N/A 1 UNIT IV 2237 Albuterol Sulfate 3 ML BID 08/05 2200 AC 08/17 INH 0916 Albuterol Sulfate 2 PUF Q4P PRN 07/30 2200 AC 08/07 INH 0914 Benzocaine/Menthol 1 RAYMUNDO Q2P PRN 08/11 2245 AC PO Collagenase 1 DEMETRA DAILY 08/04 1000 AC 08/16 TOP 0954 Diclofenac Sodium 1 DEMETRA TID PRN 07/30 1145 AC 08/05 TOP 2142 Diphenhydramine HCl 50 MG .STK-MED ONE 08/16 2141 DC IM 08/16 2142 Diphenhydramine HCl 50 MG Q6P PRN 08/07 1630 AC 08/17 IV 0614 Fluconazole 400 MG DAILY 08/15 1000 AC 08/16 Sodium Chloride 200 ML IV 1223 Heparin Sodium 5,000 UNIT Q8 08/12 0600 AC 08/17 (Porcine) SC 0508 Hydromorphone HCl 0.6 MG Q4-PRN PRN 08/15 1045 AC 08/17 IV 0829 Insulin Human Regular 0 Q6 08/10 1800 AC 08/17 SC 0524 Lidocaine 1 PAT DAILY 07/28 1800 AC 07/28 EXT 2004 Magnesium Sulfate 1 GM ONCE ONE 08/17 0830 AC Dextrose/Water 100 ML IV 08/17 1229 Meropenem 1 GM IQ8 08/13 1600 AC 08/17 IV 0829 Miconazole Nitrate 1 DEMETRA AT BEDTIME 07/29 0130 AC 08/16 VAG 2130 Nystatin 1 DEMETRA TID PRN 08/12 0730 AC 08/16 TOP 0954 Pantoprazole Sodium 40 MG DAILY 08/11 1802 AC 08/16 IV 0914 Sucralfate 1 GM Q6 08/16 0830 AC 08/17 PO 0508 Vital Signs & I&O Last 24 Hrs of Vitals and I&O: Vital Signs Date Time Temp Pulse Resp B/P Pulse O2 O2 Flow FiO2 Ox Delivery Rate 08/17 0917 94 Room Air Room Air 08/17 0353 96 08/17 0046 94 Room Air 08/16 2217 99.7 116 20 97/44 94 Room Air 08/16 2024 94 Room Air 08/16 2017 93 Room Air 08/16 1600 98.7 110 15 110/58 95 Room Air 08/16 1600 95 Room Air 08/16 1201 96 Room Air 08/16 1200 98 Nasal 1.0L Cannula Intake & Output 08/17 1600 08/17 0800 08/17 0000 Intake Total 340 340 Output Total 1035 760 Balance -695 -420 Intake, Tube 240 240 Feeding Intake, Tube 100 100 Irrigant Number 1 Bowel Movements Output, 120 120 Drainage Output, 125 100 Gastric Drainage Output, Other 0 Output, Urine 790 540 Exam General Appearance: alert, awake, mild distress, generalized anasarca Head: atraumatic, normal appearance Neck: supple Respiratory: no respiratory distress, lungs clear Cardiovascular: regular rate/rhythm Abdomen: generalized tenderness to touch Extremities: anasarca with LE swelling Skin: intact, normal color, warm/dry Results Last 24 Hrs of Lab Results: Laboratory Tests 08/17/16 0520: Anion Gap 4 L, Estimated GFR > 60, Glucose 120 H, Calcium 8.1 L, Phosphorus 2.1 L, Magnesium 1.8, Total Bilirubin 0.2, AST 24, ALT 34, Albumin 1.8 L, CBC w Diff NO MAN DIFF REQ, RBC 2.90 L, MCV 84.5, MCH 27.2, RDW 18.1 H, MPV 8.0, Gran % 71.9, Lymphocytes % 11.3 L, Monocytes % 6.7, Eosinophils % 9.2 H, Basophils % 0.9, Absolute Granulocytes 4.3, Absolute Lymphocytes 0.7 L, Absolute Monocytes 0.4, Absolute Eosinophils 0.5, Absolute Basophils 0.1, PUBS MCHC 32.2 L 08/16/16 1215: Anion Gap 6, Estimated GFR > 60, Glucose 151 H, Calcium 8.2 L, Phosphorus 2.5, Magnesium 1.9, Total Bilirubin 0.3, AST 28, ALT 38, Albumin 1.9 L, CBC w Diff NO MAN DIFF REQ, RBC 3.01 L, MCV 83.9, MCH 26.5 L, RDW 18.8 H, MPV 8.3, Gran % 76.4 H, Lymphocytes % 7.7 L, Monocytes % 6.1, Eosinophils % 9.1 H, Basophils % 0.7, Absolute Granulocytes 4.5, Absolute Lymphocytes 0.5 L, Absolute Monocytes 0.4, Absolute Eosinophils 0.5, Absolute Basophils 0, PUBS MCHC 31.5 L Impression/Plan Impression/Plan Impression/Plan: 1. History of multiple collections/pus, MSSA, s/p partial gastrectomy, polymicrobial sepsis. 2. Loculated right pleural effusion, chronic. 3. Hyponatremia, resolved. 4. BROOKLYNN, stable. 5. Thrombocytopenia, resolved. 6. Anemia without evidence of active bleeding, stable. 7. Diabetes mellitus - on SS insluin, Levemir on hold. 8. Chronic pain. 9. History of drug abuse. Recommendations: * Continue tube feeds, advance as tolerated. * Patient to stay NPO, can swab mouth only as per surgery. * Continue antibiotics as per ID - meropenem and fluconazole. * Continue with electrolyte supplementation. * Continue Dilaudid for pain control, do not advance current dosing schedule. * Benadryl as needed. * Continue DVT and GI prophylaxis. * Skin care protocol. * Continue to monitor in the critical care unit, and continue all supportive care.
[2016-08-17 12:00] VITALS: BP 106/54
[2016-08-17 16:00] VITALS: BP 104/58
--- NOTE | 2016-08-17 19:37 | NUR ---
SHIFT NOTE: [id number]: PT IS A+OX3. ON RA, LUNGS CLEAR. ST ON MONITOR, AFEBRILE. VSS. CVP 12-12. NGT TO RT NARE AT 55CM TO LOW WALL SUCTION, GREEN/CLEAR OUTPUT. SMALL BROWN BM. TUBE FEED RUNNING VIA J TUBE, VITAL AF WITH 110ML WATER FLUSHES Q4, TITRATING TUBE FEED TO GOAL, SEE FLOW SHEET. ELIAS REMAINS IN PLACE WITH CLEAR YELLOW URINE, ADEQUATE OUTPUT. 2 PERCUTANEOUS DRAINS REMOVED BY SURGICAL PA DESIRE, OCCLUSIVE DRESSINGS PLACED. LEFT ABDOMEN BLANCA, SS DRAINAGE, LARGE AMOUNT OF OUTPUT. SURGICAL SITE TO ABDOMEN WITH CLEAN DRY DRESSING IN PLACE. MULTIPLE SCABS/SCRATCHES NOTED. WOUND TO RIGHT BUTTOCK CHANGED AT 1630, SANTYL/XEROFORM/TELFA AND PAPER TAPE. PT TOLERATED WELL WITH PAIN MEDICATION PRIOR TO DRESSING CHANGE. CONTACT DERMATITIS IMPROVING TO BOTTOM. LEFT CHEST PROLINE IN PLACE, SUTURED, BIOPATCH IN PLACE, NO BLOOD RETURN, FLUSHES WELL, ALTEPLASE ORDERED. PT ON IV ABX. PT KEEPS ASKING FOR SOMETHING TO DRINK, INFORMED PT THAT SHE IS NOT ALLOWED TO HAVE ANYTHING, ONLY HER PO CARAFATE WHEN SCHEDULED. PT NOTED TO BE SUCKING ON WET WASH CLOTH TO TRY AND OBTAIN LIQUID.
[2016-08-18] VITALS: BP 120/44
--- NOTE | 2016-08-18 02:19 | NUR ---
LATE ENTRY: UNABLE TO DRAW BLOOD FROM LCW CATHETER BUT FLUSHES EASILY, ALTEPLACE ORDERED, PHARMACY AND THREAD GRINDER TOOL CALLED CONCERNING ORDER BECAUSE CATHETER IS EASILY FLUSHED. MEDICATION GIVEN ORDERED. PT REQUESTING PAIN MEDICATION EVERY 4 HOURS, FREQUENT MOUTH CARE GIVEN.
--- NOTE | 2016-08-18 06:56 | PN- Resident CRCU ---
Subjective HPI/CRCU Issues: Pt seen today, started crying when I was walking into her room, complains about her throat hurting and wanting to drink. Abdomen carton forming machine tender. Right and left pelvis drain have been removed by surgery yesterday. 24 hour data: max temp 98.2 MS 110-114 ST RR 16-20 at RA CVP 8-12 systolic BP 99-128 diastolic BP 46-54 +2070 - 2640 total (1380 urine, 550 ng, 710 ryan) Hb down from 7.9 to 7.3. Will type and cross Objective Vital Signs & I&O Last 8 Hrs of Vitals and I&O: Intake & Output / 1600 04/ 0800 04/03 0000 Intake Total 670 600 Output Total 590 1120 Balance 80 -520 Intake, Oral 10 Intake, Tube 450 370 Feeding Intake, Tube 220 220 Irrigant Output, 100 480 Drainage Output, 50 Gastric Drainage Output, Urine 440 640 Laboratory Tests / 0600 Chemistry Sodium Pending Potassium Pending Chloride Pending Carbon Dioxide Pending Anion Gap Pending BUN Pending Creatinine Pending Glucose Pending Calcium Pending Phosphorus Pending Magnesium Pending Total Bilirubin Pending AST Pending ALT Pending Albumin Pending Hematology CBC w Diff NO MAN DIFF REQ WBC (4.8 - 10.8 /CUMM) 7.8 RBC (4.20 - 5.40 /CUMM) 2.69 L Hgb (12.0 - 16.0 G/DL) 7.3 *L Hct (37 - 47 %) 22.9 L MCV (81.0 - 99.0 FL) 85.0 MCH (27.0 - 31.0 PG) 27.1 RDW (11.5 - 14.5 %) 18.6 H Plt Count (130 - 400 /CUMM) 196 MPV (7.4 - 10.4 FL) 8.2 Gran % (42.2 - 75.2 %) 76.2 H Lymphocytes % (20.5 - 51.1 %) 9.7 L Monocytes % (1.7 - 9.3 %) 4.2 Eosinophils % (0 - 5 %) 9.6 H Basophils % (0.0 - 2.0 %) 0.3 Absolute Granulocytes (1.4 - 6.5 /CUMM) 5.9 Absolute Lymphocytes (1.2 - 3.4 /CUMM) 0.8 L Absolute Monocytes (0.10 - 0.60 /CUMM) 0.3 Absolute Eosinophils (0.0 - 0.7 /CUMM) 0.7 Absolute Basophils (0.0 - 0.2 /CUMM) 0 PUBS MCHC (33.0 - 37.0 G/DL) 31.9 L Laboratory Tests 08/18/16 0600: Sodium Pending, Potassium Pending, Chloride Pending, Carbon Dioxide Pending, Anion Gap Pending, BUN Pending, Creatinine Pending, Glucose Pending, Calcium Pending, Phosphorus Pending, Magnesium Pending, Total Bilirubin Pending, AST Pending, ALT Pending, Albumin Pending, CBC w Diff NO MAN DIFF REQ, RBC 2.69 L, MCV 85.0, MCH 27.1, RDW 18.6 H, MPV 8.2, Gran % 76.2 H, Lymphocytes % 9.7 L, Monocytes % 4.2, Eosinophils % 9.6 H, Basophils % 0.3, Absolute Granulocytes 5.9, Absolute Lymphocytes 0.8 L, Absolute Monocytes 0.3, Absolute Eosinophils 0.7, Absolute Basophils 0, PUBS MCHC 31.9 L Vital Signs Date Time Temp Pulse Resp B/P Pulse O2 O2 Flow FiO2 Ox Delivery Rate 08/18 0433 95 Room Air 08/18 0000 94 08/18 0000 98.2 113 24 120/44 94 Room Air 08/17 2219 96 Room Air Room Air 08/17 2000 92 Room Air 08/17 1600 97.6 108 20 104/58 93 Room Air 08/17 1200 97.3 108 20 106/54 96 Room Air 08/17 0917 94 Room Air Room Air Exam General Appearance: alert, awake, mild distress Ears, Nose, Throat: no pharyngeal erythema Respiratory: lungs clear Cardiovascular: tachycardia Gastrointestinal: soft, tender to palpation Weaning Parameters NIF: 36 Minute Volume: 10.0 Resp rate: 16 Vt: 602 Heart Rate: 100 Weaning Schedule Start Time: 0847 Minute Volume: 10.0 Resp Rate: 16 Vt: 602 Heart Rate: 100 End Time: 1136 Minute Volume: 7.56 Resp Rate: 18 Vt: 507 Heart Rate: 104 Current Medications: Current Medications Sig/Shahla Start time Last Medication Dose Route Stop Time Status Admin Acetaminophen 1,000 MG Q6P PRN 08/07 1630 AC 08/11 N/A 1 UNIT IV 2237 Albuterol Sulfate 3 ML BID 08/05 2200 AC 08/17 INH 2218 Albuterol Sulfate 2 PUF Q4P PRN 07/30 2200 AC 08/07 INH 0914 Alteplase, 2 MG ONE ONE 08/17 2230 DC 08/17 Recombinant IV 08/17 2231 2249 Alteplase, 2 MG ONE ONE 08/17 1900 CAN Recombinant IV 08/17 2359 Benzocaine/Menthol 1 RAYMUNDO Q2P PRN 08/11 2245 AC PO Collagenase 1 DEMETRA DAILY 08/04 1000 AC 08/17 TOP 1018 Diclofenac Sodium 1 DEMETRA TID PRN 07/30 1145 AC 08/05 TOP 2142 Diphenhydramine HCl 50 MG .STK-MED ONE 08/17 1826 DC IM 08/17 1827 Diphenhydramine HCl 50 MG .STK-MED ONE 08/17 1218 DC IM 08/17 1219 Diphenhydramine HCl 50 MG Q6P PRN 08/07 1630 AC 08/17 IV 1830 Fluconazole 400 MG DAILY 08/15 1000 AC 08/17 Sodium Chloride 200 ML IV 1017 Heparin Sodium 5,000 UNIT Q8 08/12 0600 AC 08/18 (Porcine) SC 0550 Hydromorphone HCl 0.6 MG Q4-PRN PRN 08/15 1045 AC 08/18 IV 0549 Insulin Human Regular 4 UNITS .STK-MED ONE 08/17 1809 DC IV 08/17 1810 Insulin Human Regular 4 UNITS .STK-MED ONE 08/17 1133 DC IV 08/17 1134 Insulin Human Regular 0 Q6 08/10 1800 AC 08/18 SC 0607 Lidocaine 1 PAT DAILY 07/28 1800 AC 07/28 EXT 2004 Magnesium Sulfate 1 GM ONCE ONE 08/17 0830 DC 08/17 Dextrose/Water 100 ML IV 08/17 1229 0953 Meropenem 1 GM IQ8 08/13 1600 AC 08/18 IV 0035 Miconazole Nitrate 1 DEMETRA AT BEDTIME 07/29 0130 AC 08/17 VAG 2234 Nystatin 1 DEMETRA TID PRN 08/12 0730 AC 08/16 TOP 0954 Pantoprazole Sodium 40 MG DAILY 08/11 1802 AC 08/17 IV 1138 Phenol 2 SPRAY Q2P PRN 08/18 0800 AC EXT Sucralfate 1 GM Q6 08/16 0830 AC 08/18 PO 0550 Impression/Plan Impression/Problem List Impression: 40-year-old lady with a PMH of diabetes, previous right-sided hemorrhagic pleural effusion S/P Pleurx catheter, lytic therapy 2, previous MSSA sepsis likely secondary to pro-line catheter, previous necrotizing fasciitis of the perineum, left pararenal abscess, osteomyelitis of pubic bone, polysubstance abuse, depression, opiate dependence who presented with complaints of right-sided hip pain, admitted to , found to have pelvic abscess, that was drained by Dr. Sam on 08/01/16. Post procedure, she was hypotensive and was transferred to ICU. She received levophed for 1 day, subsequently her BP was stable and pt was transferred back to . The pt was again hypotensive, and lethargic, and was transferred to ICU. She again was on levophed for a couple of days with BP stable without pressors, and was transferred back to . For the third time, she was again hypotensive requiring another ICU transfer. It has been noted that her BP drops when she receives dilaudid. She was placed on levophed for blood pressure support. The CT findings was concerning for acute abdomen due to perforation vs ileus vs obstruction (tiny amount of free air similar to prior imaging, gastric pneumatosis, ?perforation gastric ulcer, diffusely tender abdomen, no bowel sounds heard, large amount of NG tube output bright yellow --> muddy green --> brown). Her lactic acid elevated up to 2.7, with poor UO. With IVF, her UO improved. There was fluid collection in the left pelvis, that was drained by Dr. Dunaway and put out cloudy yellow --> brown fluid collection in the pelvis (similar in color and consistency to NG tube fluid), most likely representing infected ascitic fluid, consistent with peritonitis. We were concerned for perforation in the stomach due to image findings of gastric pneumatosis. Gastrograffin studies done and showed leakage of contrast out of the stomach. Pt was taken to OR on 08/12/[address] Trammell for exploratory laparotomy with partial gastrectomy for gangrenous stomach and J tube insertion. There was no perforation found, but seeping of fluid through the gangrenous wall into the peritoneal space is entirely possible causing peritonitis. The etiology of the the gangrene is unknown, could be cocaine? vasopressors? hypotension? She was started on tube feeds and have been tolerating it well. Her other issues this admission include right pelvis infection (sp IR drainage on 08/01/16 followed by first hypotensive episode requiring ICU monitoring), right upper extremity swelling (due to intentional fall) that has now improved, with ortho following. She also developed BROOKLYNN most likely multifactorial in nature (BUN/Cr up to 66/2.9) prerenal and ATN - insults including hypotension, contrast, vancomycin, with nephrology following, and kidney functions improved. Lines: RYAN drain d7 J tube d7 Orta (UO better now, would consider removing) Proline (08/07/16) NG tube (08/10/16) Right pelvis catheter (08/01/16 - 08/17/16) Left pelvis catheter (08/11/16 - 08/17/16) Restrains UE discontinued after 3 days Extubated after 3 days A line removed after 4 days Respiratory * Intubated 08/12 - 08/14 Cardiovascular # Hypotension * Off levophed 08/14 645AM * IVF discontinued 08/14, consider diuresis for anasarca if BP remains stable for another 24 hours ID # Pelvic abscess sp IR drainage (right 08/01 and left 08/11) # Peritonitis due to gangrenous stomach (due to ischemia..cocaine? gastroparesis ? pressors?) - 08/11: [place] [address], VRE, enterobacter, yeast, lactobacillus. * Oxacillin started to cover MSSA on 08/01, discontinued on 08/10/16. Zosyn started on 08/10/16 to cover pseudomonas. Fluconazole 400 IV q8 started on 08/12 for yeast in ascitic fluid, changed to daily when kidney functions improved. Zosyn discontinued and meropenem started on 08/13. * The tube should be open to external gravity drainage via drainage bag. Tube should be flushed Q shift with 10 mL normal saline. Strict output should be measured, not including these flushes. # S/P partial gastrectomy for gangrenous stomach, with J tube * Tube feeding as per surgery and nutrition * Continue IV protonix , sucralfate * Appreciate surgery input * NG tube low wall suction. NOTHING THROUGH NG TUBE other than sucralfate * Chloroseptic spray for throat pain * PO meds have been discontinued including lexapro, haldol, lyrica, na bicarb, senna, docusate, tylenol, simethicone. These meds would need to be reordered once pt can eat. # Necrotic decubitus ulcer - Excised at bedside 08/10 - Not likely to be source of infection # Right shoulder pain with decreased passive and active ROM (improving) # Right elbow swelling (improving) - Xray and US obtained * Refuses MRI unless done under anesthesia * Appreciate Ortho (Dr. Schulz) input # The scalp lesion popped 08/02 PM, with purulent drainage noted - Alopecia noted Heme # Anemia - 08/12/16: received 1 PRBC - 08/18/16: Hb down to 7.3 * Consider transfusing 1PRBC today Metabolic # Acute kidney injury resolved * Continue to follow kidney functions * Appreciate nephro input * Consider starting renvela if phos elevated # Hyponatremia * Continue to follow sodium level * Appreciate nephro input # Hyperkalemia * Continue to monitor Psych # Depression # Hx of drug abuse * On the W-10 and the discharge instructions, please ask the receiving facility/ ECF to call and make an intake appointment at [facility], [address] [place] [address], [place], [place] when her discharge date is known, . * Cannot go home with proline, must go to rehab # Agitation * IV benadryl PRN Endocrine # Diabetes mellitus * Novolog tidac/qhs * Levemir 60 bid ON HOLD,consider restarting at lower dose * Watch blood sugar closely * Consider endo consult Alimentary * On tube feeds Skin # Decubitus ulcer * Wound consult with Dr. English appreciated * Consulted surgery, necrotic patch excised at bedside, no deep tracking or necrosis or fasciitis noted * Consider rectal tube placement Diet: tube feeds DVT ppx: alps and heparin FC Consults: ID, surgery, renal, psych, ortho, PT, wound, nutrition Labs: BEP mag for electrolytes, CBC for anemia Problem List: 1. S/P gastrectomy Pain Ratin Tomorrow's Labs & Rationales: CBC for anemia BEP mag for electrolyte Plan DVT/Prophylaxis: mechanical, pharmacological
[2016-08-18 07:49] LABS: ABSOLUTE EOSINOPHIL COUNT 0.7 /CUMM (0.0-0.7); ABSOLUTE LYMPH COUNT 0.8 /CUMM (1.2-3.4); HEMATOCRIT 22.9 % (37-47); MEAN PLATELET VOLUME 8.2 FL (7.4-10.4); RED BLOOD CELL CT 2.69 /CUMM (4.20-5.40)
[2016-08-18 07:59] LABS: ABSOLUTE BASOPHIL COUNT 0 /CUMM (0.0-0.2); ABSOLUTE GRANULOCYTE CT 5.9 /CUMM (1.4-6.5); ABSOLUTE MONOCYTE COUNT 0.3 /CUMM (0.10-0.60); BASOPHIL % 0.3 % (0.0-2.0); EOSINOPHIL % 9.6 % (0-5); GRANULOCYTE % 76.2 % (42.2-75.2); MEAN CORPUSCULAR HGB 27.1 PG (27.0-31.0); MEAN CORPUSCULAR HGB CONC 31.9 G/DL (33.0-37.0); PLATELET COUNT 196 /CUMM (130-400); RBC DISTRIBUTION WIDTH 18.6 % (11.5-14.5); WHITE BLOOD CELL COUNT 7.8 /CUMM (4.8-10.8)
[2016-08-18 08:00] VITALS: BP 122/70
--- NOTE | 2016-08-18 08:32 | PN- General Surgery ---
See Addendum Subjective Subjective: No acute events overnight. Both pelvic IR drains were removed yesterday. Pt was noted to have high ngt outputs, but admitted to sneaking sips of water. Output was since about 100 mL overnight. At this time, her biggest complaint is sore throat and dry mouth. She is requesting mobilization and wants to go home. C/o pain at the incision and drain sites, as expected. Passing flatus and having loose BM's. Objective Vital Signs and I&Os Vital Signs Date Time Temp Pulse Resp B/P Pulse O2 O2 Flow FiO2 Ox Delivery Rate 08/18 0433 95 Room Air 08/18 0000 94 08/18 0000 98.2 113 24 120/44 94 Room Air 08/17 2219 96 Room Air Room Air 08/17 2000 92 Room Air 08/17 1600 97.6 108 20 104/58 93 Room Air 08/17 1200 97.3 108 20 106/54 96 Room Air 08/17 0917 94 Room Air Room Air Intake & Output 08/18 1600 08/18 0800 08/18 0000 08/17 1600 08/17 0800 08/17 0000 Intake Total 670 600 800 340 340 Output Total 590 7377 175 8416 760 Balance 80 -520 -30 -695 -420 Intake, IV 390 Intake, Oral 10 10 Intake, Tube 450 370 300 240 240 Feeding Intake, Tube 220 220 100 100 100 Irrigant Number 1 Bowel Movements Output, 100 480 130 120 120 Drainage Output, 50 400 125 100 Gastric Drainage Output, Other 0 Output, Urine 440 640 300 790 540 Physical Exam: Gen: Pt is awake and alert. She is whining and wincing with complaints of pain, stating "I want to go home..." Abdomen: Obese, soft. Incision is c/d/i with sylvia in place. There is some mucopurulent drainage noted from the pelvic drain sites. LLQ BLANCA drain remains in place. Hypoactive BS were heard. Results Last 48 Hours of Labs: Laboratory Tests 08/18 08/17 0600 0520 Chemistry Sodium (137 - 145 mmol/L) Pending 141 Potassium (3.5 - 5.1 mmol/L) Pending 4.2 Chloride (98 - 107 mmol/L) Pending 110 H Carbon Dioxide (22 - 30 mmol/L) Pending 27 Anion Gap (5 - 16) Pending 4 L BUN (7 - 17 mg/dL) Pending 19 H Creatinine (0.5 - 1.0 mg/dL) Pending 0.6 Estimated GFR (>60 ml/min) > 60 Glucose (65 - 99 mg/dL) Pending 120 H Calcium (8.4 - 10.2 mg/dL) Pending 8.1 L Phosphorus (2.5 - 4.5 mg/dL) Pending 2.1 L Magnesium (1.6 - 2.3 mg/dL) Pending 1.8 Total Bilirubin (0.2 - 1.3 mg/dL) Pending 0.2 AST (14 - 36 U/L) Pending 24 ALT (9 - 52 U/L) Pending 34 Albumin (3.5 - 5.0 g/dL) Pending 1.8 L Hematology CBC w Diff NO MAN DIFF REQ NO MAN DIFF REQ WBC (4.8 - 10.8 /CUMM) 7.8 6.0 RBC (4.20 - 5.40 /CUMM) 2.69 L 2.90 L Hgb (12.0 - 16.0 G/DL) 7.3 *L 7.9 L Hct (37 - 47 %) 22.9 L 24.5 L MCV (81.0 - 99.0 FL) 85.0 84.5 MCH (27.0 - 31.0 PG) 27.1 27.2 RDW (11.5 - 14.5 %) 18.6 H 18.1 H Plt Count (130 - 400 /CUMM) 196 168 MPV (7.4 - 10.4 FL) 8.2 8.0 Gran % (42.2 - 75.2 %) 76.2 H 71.9 Lymphocytes % (20.5 - 51.1 %) 9.7 L 11.3 L Monocytes % (1.7 - 9.3 %) 4.2 6.7 Eosinophils % (0 - 5 %) 9.6 H 9.2 H Basophils % (0.0 - 2.0 %) 0.3 0.9 Absolute Granulocytes (1.4 - 6.5 /CUMM) 5.9 4.3 Absolute Lymphocytes (1.2 - 3.4 /CUMM) 0.8 L 0.7 L Absolute Monocytes (0.10 - 0.60 /CUMM) 0.3 0.4 Absolute Eosinophils (0.0 - 0.7 /CUMM) 0.7 0.5 Absolute Basophils (0.0 - 0.2 /CUMM) 0 0.1 PUBS MCHC (33.0 - 37.0 G/DL) 31.9 L 32.2 L 08/16 1215 Chemistry Sodium (137 - 145 mmol/L) 142 Potassium (3.5 - 5.1 mmol/L) 4.3 Chloride (98 - 107 mmol/L) 111 H Carbon Dioxide (22 - 30 mmol/L) 25 Anion Gap (5 - 16) 6 BUN (7 - 17 mg/dL) 24 H Creatinine (0.5 - 1.0 mg/dL) 0.6 Estimated GFR (>60 ml/min) > 60 Glucose (65 - 99 mg/dL) 151 H Calcium (8.4 - 10.2 mg/dL) 8.2 L Phosphorus (2.5 - 4.5 mg/dL) 2.5 Magnesium (1.6 - 2.3 mg/dL) 1.9 Total Bilirubin (0.2 - 1.3 mg/dL) 0.3 AST (14 - 36 U/L) 28 ALT (9 - 52 U/L) 38 Albumin (3.5 - 5.0 g/dL) 1.9 L Hematology CBC w Diff NO MAN DIFF REQ WBC (4.8 - 10.8 /CUMM) 5.9 RBC (4.20 - 5.40 /CUMM) 3.01 L Hgb (12.0 - 16.0 G/DL) 7.9 L Hct (37 - 47 %) 25.2 L MCV (81.0 - 99.0 FL) 83.9 MCH (27.0 - 31.0 PG) 26.5 L RDW (11.5 - 14.5 %) 18.8 H Plt Count (130 - 400 /CUMM) 149 MPV (7.4 - 10.4 FL) 8.3 Gran % (42.2 - 75.2 %) 76.4 H Lymphocytes % (20.5 - 51.1 %) 7.7 L Monocytes % (1.7 - 9.3 %) 6.1 Eosinophils % (0 - 5 %) 9.1 H Basophils % (0.0 - 2.0 %) 0.7 Absolute Granulocytes (1.4 - 6.5 /CUMM) 4.5 Absolute Lymphocytes (1.2 - 3.4 /CUMM) 0.5 L Absolute Monocytes (0.10 - 0.60 /CUMM) 0.4 Absolute Eosinophils (0.0 - 0.7 /CUMM) 0.5 Absolute Basophils (0.0 - 0.2 /CUMM) 0 PUBS MCHC (33.0 - 37.0 G/DL) 31.5 L Assessment/Plan Assessment/Plan Pt is a 41 yo F who is now POD # 6 s/p subtotal gastrectomy for gangrenous stomach. She is tolerating tube feeds. She did have high ngt outputs, but likely due to ingestion of water. Continues to have bowel function. Plan: -Continue npo with tube feeds via feeding J tube. Continue ngt to low wall suction. -Pt will likely need imaging (gastrograffin swallow) prior to advancement. Will discuss the timing of this with attending. -Continue IV abx and diflucan as per ID. -Carafate and protonix for GI ppx. -Consider mobilization or bed exercises. -Consider blood transfusion. -Medical management per primary team. -Will d/w attending.
--- NOTE | 2016-08-18 09:46 | PN- CRCU ---
See Addendum Subjective HPI/Critical Care Issues: pt seen and examined 95% ra afebrile tachycardic this am normotensive hgb 7.3 creatinine 2.3 Objective Current Medications: Current Medications Sig/Shahla Start time Last Medication Dose Route Stop Time Status Admin Acetaminophen 1,000 MG Q6P PRN 08/07 1630 AC 08/11 N/A 1 UNIT IV 2237 Albuterol Sulfate 3 ML BID 08/05 2200 AC 08/18 INH 0817 Albuterol Sulfate 2 PUF Q4P PRN 07/30 2200 AC 08/07 INH 0914 Alteplase, 2 MG ONE ONE 08/17 2230 DC 08/17 Recombinant IV 08/17 2231 2249 Alteplase, 2 MG ONE ONE 08/17 1900 CAN Recombinant IV 08/17 2359 Benzocaine/Menthol 1 RAYMUNDO Q2P PRN 08/11 2245 AC PO Collagenase 1 DEMETRA DAILY 08/04 1000 AC 08/17 TOP 1018 Diclofenac Sodium 1 DEMETRA TID PRN 07/30 1145 AC 08/05 TOP 2142 Diphenhydramine HCl 50 MG .STK-MED ONE 08/17 1826 DC IM 08/17 1827 Diphenhydramine HCl 50 MG .STK-MED ONE 08/17 1218 DC IM 08/17 1219 Diphenhydramine HCl 50 MG Q6P PRN 08/07 1630 AC 08/18 IV 0822 Fluconazole 400 MG DAILY 08/15 1000 AC 08/17 Sodium Chloride 200 ML IV 1017 Heparin Sodium 5,000 UNIT Q8 08/12 0600 AC 08/18 (Porcine) SC 0550 Hydromorphone HCl 0.6 MG Q4-PRN PRN 08/15 1045 AC 08/18 IV 0549 Insulin Human Regular 4 UNITS .STK-MED ONE 08/17 1809 DC IV 08/17 1810 Insulin Human Regular 4 UNITS .STK-MED ONE 08/17 1133 DC IV 08/17 1134 Insulin Human Regular 0 Q6 08/10 1800 AC 08/18 SC 0607 Lidocaine 1 PAT DAILY 07/28 1800 AC 07/28 EXT 2004 Magnesium Sulfate 1 GM ONCE ONE 08/17 0830 DC 08/17 Dextrose/Water 100 ML IV 08/17 1229 0953 Meropenem 1 GM IQ8 08/13 1600 AC 08/18 IV 0825 Miconazole Nitrate 1 DEMETRA AT BEDTIME 07/29 0130 08/17 VAG 2234 Nystatin 1 DEMETRA TID PRN 08/12 0730 08/16 TOP 0954 Pantoprazole Sodium 40 MG DAILY 08/11 1802 08/18 IV 0826 Phenol 2 SPRAY Q2P PRN 08/18 0800 08/18 EXT 0834 Sucralfate 1 GM Q6 08/16 0830 08/18 PO 0550 Vital Signs & I&O Last 24 Hrs of Vitals and I&O: Vital Signs Date Time Temp Pulse Resp B/P Pulse O2 O2 Flow FiO2 Ox Delivery Rate 08/18 0822 95 Room Air 08/18 0800 98.3 117 20 122/70 97 Room Air 08/18 0800 97 Room Air 08/18 0433 95 Room Air 08/18 0000 94 08/18 0000 98.2 113 24 120/44 94 Room Air 08/17 2219 96 Room Air Room Air 08/17 2000 92 Room Air 08/17 1600 97.6 108 20 104/58 93 Room Air 08/17 1200 97.3 108 20 106/54 96 Room Air Intake & Output 08/18 1600 08/18 0800 08/18 0000 Intake Total 670 600 Output Total 590 1120 Balance 80 -520 Intake, Oral 10 Intake, Tube 450 370 Feeding Intake, Tube 220 220 Irrigant Output, 100 480 Drainage Output, 50 Gastric Drainage Output, Urine 440 640 Exam Other Physical Findings: gen alert and comfortable heent ngt cvs s1, s2 lungs clear anterior chest, does not want to be turned proline in place abd distended, tenderness ext 1+ edema Results Last 24 Hrs of Lab Results: Laboratory Tests 08/18/16 0600: Anion Gap 7, Estimated GFR > 60, Glucose 151 H, Calcium 8.0 L, Phosphorus 2.3 L, Magnesium 1.8, Total Bilirubin 0.3, AST 27, ALT 35, Albumin 1.9 L, CBC w Diff NO MAN DIFF REQ, RBC 2.69 L, MCV 85.0, MCH 27.1, RDW 18.6 H, MPV 8.2, Gran % 76.2 H, Lymphocytes % 9.7 L, Monocytes % 4.2, Eosinophils % 9.6 H, Basophils % 0.3, Absolute Granulocytes 5.9, Absolute Lymphocytes 0.8 L, Absolute Monocytes 0.3, Absolute Eosinophils 0.7, Absolute Basophils 0, PUBS MCHC 31.9 L Impression/Plan Impression/Plan Impression/Plan: Impression 41 year old woman - hx of multiple collections/pus, MSSA, s/p partial gastrectomy - BROOKLYNN stable - anemia Plan - ID follow up, on meropenem and fluconazole - given tachycardia and anemia - would transfuse 1 unit - nephrology following - surgical follow up - hemodynamic monitoring - off levophed - pain control - monitor coags, cbc - DVT prophylaxis at all times TTS 35 min
--- NOTE | 2016-08-18 10:38 | PN- Infect Dx ---
Subjective Subjective: Afebrile. She continues to complain of abdominal pain. Objective Last 24 Hrs of Vital Signs/I&O Vital Signs Date Time Temp Pulse Resp B/P Pulse O2 O2 Flow FiO2 Ox Delivery Rate 08/18 821 95 Room Air 08/18 08 98.3 117 20 122/70 97 Room Air 08/18 0800 97 Room Air 08/18 0433 95 Room Air 08/18 0000 94 04 0000 98.2 113 24 120/44 94 Room Air 08/17 2219 96 Room Air Room Air 08/17 2000 92 Room Air 08/17 1600 97.6 108 20 104/58 93 Room Air 08/17 1200 97.3 108 20 106/54 96 Room Air Intake & Output 08/18 1600 08/18 08 04 0000 Intake Total 670 600 Output Total 590 1120 Balance 80 -520 Intake, Oral 10 Intake, Tube 450 370 Feeding Intake, Tube 220 220 Irrigant Output, 100 480 Drainage Output, 50 Gastric Drainage Output, Urine 440 640 Physical Exam Other Physical Findings: She appears comfortable in no distress HEENT NG tube remains in place, with 525 mL output yesterday and 50 mL overnight Chest Pro-Line in the left upper chest with no inflammation at the site Lungs are clear Heart regular rhythm with no murmur Abdomen soft, obese, tender on minimal palpation, positive bowel sounds; BLANCA drain remains in place; the 2 percutaneous catheters, both placed by IR, have been removed Extremities 1+ edema both lower extremities Orta catheter remains in place Results Last 24 Hours of Lab Results: Laboratory Tests 08/18 0600 Chemistry Sodium (137 - 145 mmol/L) 145 Potassium (3.5 - 5.1 mmol/L) 4.3 Chloride (98 - 107 mmol/L) 111 H Carbon Dioxide (22 - 30 mmol/L) 27 Anion Gap (5 - 16) 7 BUN (7 - 17 mg/dL) 16 Creatinine (0.5 - 1.0 mg/dL) 0.5 Estimated GFR (>60 ml/min) > 60 Glucose (65 - 99 mg/dL) 151 H Calcium (8.4 - 10.2 mg/dL) 8.0 L Phosphorus (2.5 - 4.5 mg/dL) 2.3 L Magnesium (1.6 - 2.3 mg/dL) 1.8 Total Bilirubin (0.2 - 1.3 mg/dL) 0.3 AST (14 - 36 U/L) 27 ALT (9 - 52 U/L) 35 Albumin (3.5 - 5.0 g/dL) 1.9 L Hematology CBC w Diff NO MAN DIFF REQ WBC (4.8 - 10.8 /CUMM) 7.8 RBC (4.20 - 5.40 /CUMM) 2.69 L Hgb (12.0 - 16.0 G/DL) 7.3 *L Hct (37 - 47 %) 22.9 L MCV (81.0 - 99.0 FL) 85.0 MCH (27.0 - 31.0 PG) 27.1 RDW (11.5 - 14.5 %) 18.6 H Plt Count (130 - 400 /CUMM) 196 MPV (7.4 - 10.4 FL) 8.2 Gran % (42.2 - 75.2 %) 76.2 H Lymphocytes % (20.5 - 51.1 %) 9.7 L Monocytes % (1.7 - 9.3 %) 4.2 Eosinophils % (0 - 5 %) 9.6 H Basophils % (0.0 - 2.0 %) 0.3 Absolute Granulocytes (1.4 - 6.5 /CUMM) 5.9 Absolute Lymphocytes (1.2 - 3.4 /CUMM) 0.8 L Absolute Monocytes (0.10 - 0.60 /CUMM) 0.3 Absolute Eosinophils (0.0 - 0.7 /CUMM) 0.7 Absolute Basophils (0.0 - 0.2 /CUMM) 0 PUBS MCHC (33.0 - 37.0 G/DL) 31.9 L Last 24 Hours of Haris Results: Blood cultures 2 August 10 identified as Prevotella Recent Imaging Studies: Chest x-ray August 16 low lung volumes with increasing opacity at the right lung base Assessment/Plan Impression: Overall improvement continues, with temperatures and white blood cell count remaining normal on Meropenem and Fluconazole for polymicrobial peritonitis/ sepsis secondary to Enterobacter, Prevotella and yeast now 6 days status post exploratory laparotomy and partial gastrectomy for a gangrenous stomach with perforation. Both percutaneously placed catheters have been removed, including the one initially placed 17 days ago for the pelvic abscess secondary to MSSA, which was felt to be secondary to osteomyelitis of the right inferior pubic ramus secondary to seeding from her previous bacteremia. Suggestion: 1. Repeat CT of the pelvis to follow-up the right pelvic abscess 2. Would remove Orta catheter and initiate straight cath protocol if urinary retention 3. Continue Meropenem and Fluconazole
--- NOTE | 2016-08-18 11:09 | NUR ---
Patient is alert and oriented x's 3, able to follow commands and answer questions appropriately. Uncooperative and anxious at times. ST on tele monitor, HR= 100-120's- SBP: 90-110's with + pulses. Denies chest pain. On room air, lungs clear and diminished at the bases- O2 sats 97%. R. nares ngt in place to low wall suction with light green output noted. [place] to upper abdomen are clean dry and intact. A left lower BLANCA drain is noted with brown/ss output. J tube in place with Vital AF infusing at a goal rate of 70mls/hr with 110ml of water flushes every 4 hours. No residual was noted. Dressings to lower abdomen where perc drains were remvoed were changed this morning- scant amounts of ss output noted. Surgical ADI Driver and Dr. Trammell in to assess with this RN earlier. Hypoactive bowel sounds are noted. Last BM 08/17. Orta is in place draining clear yellow urine. Unstageable pressure injury to r. buttock with wound care/surgical following. LCW proline in place and dressing was reinforced. IV abx per order. Pt to receive 1 unit of prbc and CBC to be drawn after infusion. She was medicated with dilaudid for pain- Chloraseptic spray ordered and given for c/o soure throat. Mouth care provided multiple times. Pt educated on the importance of turning and repositioning frequently and the rotation was turned on her total care bed. Vitals are currently stable. Per Dr. Sun d/c CVP monitoring. Will continue to closely monitor patient.
--- NOTE | 2016-08-18 12:56 | NUR ---
PHYSICAL THERAPY: Recieved consult orders for Re-evaluation; per RN, patient was requesting OOB by P.T. today. Attempted to evaluate patient, refusing to work w/ P.T. unless given pain medication; Per RN patient is not due for pain medication at this time. Patient educated on needs for OOB, evaluation, and d/c plan; notified that she is not due for pain meds. Patient became very upset and refusing to work with P.T. MD was notified. P.T. to f/u as appropriate.
--- NOTE | 2016-08-18 13:00 | NUR ---
Physical therapy notified this RN that patient will not work with PT unless she receives pain medication. Pt is not due for dilaudid until 1400- Per Physical therapist she is unable to come back at that time for therapy. Dr. Sun notified- No additional pain medications to be given at this time.
[2016-08-18 16:00] VITALS: BP 128/40
--- NOTE | 2016-08-18 16:37 | Event Note ---
Event Note Event Note: Called to ICU by MP Vega due to an acute increase in NGT drainage. Between the times of 3pm and 4 pm, there was an increase of drainage from NGT totaling approximately 630 cc. At this time, Dea confessed to drinking fluids. Dr. Trammell has been made aware.
--- NOTE | 2016-08-18 17:06 | NUR ---
At approx 1615, 700mls of light brown output was noted to the suction canister from pts NGT after draining only 70mls from the 7-3 shift. Patients family at the bedside during event. Patient admitted to this RN, surgical ADI Driver, and Nurse Group President that she did take fluids by mouth after she was instructed and educated continously of her strict NPO orders. Dr. Trammell was also notified of event. Patient and family were educated again on the importance of not taking fluids by mouth- complications of non-compliance were again reinforced and pt verbalized understanding. Will continue to closely monitor patient.
[2016-08-18 17:51] LABS: ABSOLUTE BASOPHIL COUNT 0.1 /CUMM (0.0-0.2); ABSOLUTE EOSINOPHIL COUNT 0.8 /CUMM (0.0-0.7); ABSOLUTE GRANULOCYTE CT 6.4 /CUMM (1.4-6.5); ABSOLUTE LYMPH COUNT 0.7 /CUMM (1.2-3.4); ABSOLUTE MONOCYTE COUNT 0.4 /CUMM (0.10-0.60); BASOPHIL % 0.9 % (0.0-2.0); EOSINOPHIL % 9.1 % (0-5); GRANULOCYTE % 76.8 % (42.2-75.2); MEAN CORPUSCULAR HGB 27.3 PG (27.0-31.0); MEAN CORPUSCULAR HGB CONC 32.1 G/DL (33.0-37.0); MEAN CORPUSCULAR VOLUME 84.9 FL (81.0-99.0); MEAN PLATELET VOLUME 7.8 FL (7.4-10.4); PLATELET COUNT 204 /CUMM (130-400); RED BLOOD CELL CT 3.34 /CUMM (4.20-5.40); WHITE BLOOD CELL COUNT 8.4 /CUMM (4.8-10.8)
[2016-08-18 17:53] LABS: HEMATOCRIT 28.4 % (37-47)
--- NOTE | 2016-08-18 18:46 | NUR ---
Patient medicated with dilaudid prior to dressing change- Patient has been non-compliant with turning and repositioning and dressing changes during this admission despite constant education of wound care and complications related to noncompliants. Patient continues to verbalize understanding of all education. At time of skin assessment right buttock wound remains an unstageable pressure injury- 4 X 3cm with approx 75% of mixed pale yellow and moist black necrotic non vialble tissue- approx 25% is pale red and moist- Wound has been debrided by surgery multiple times- Will dicuss with housestaff need for possible additional debridement. Scant amounts of serosanegnous drainage is noted- Right buttock presents with a stage 2 pressure injury which has declined from previous assessment- Wound measures 7 X 1cm- 100% red moist tissue no areas of slough or necrosis are currently noted. Periwound consists of red denuded and excoriated areas. INC associated dermitis also noted to periarea, buttocks, and extends to the inner thighs. Right axila and right breast wounds remain unchanged- Unstageable to top of head stable and unchanged. Patient again educated by this RN on turning and repositioning and wound care. She has refused a clinatron mattress and verbalized understanding that with non compliance the wounds will continue to decline resulting in further interventions or possible infection. Patient verbalized understanding. Wounds were cleansed at this time. Santyl applied Fb a DPD- Barrier cream applied to stage 2 left buttock. Patient also turned at this time. Rotation therapy to be turned on intermittently. Call placed to OR to notify Dr. Elias about possible debridement of wound. Dr. Hanna also notified. Pts family previously at the bedside- Her cousin was also educated on wound care and important of turning and repositoning- to reinforce and discuss with patient. Will continue to closely monitor patient.
[2016-08-19] VITALS: BP 102/60
--- NOTE | 2016-08-19 04:00 | NUR ---
PATIENT REMAINS ALERT AND ORIENTED.MONITOR SINUS TACHYCARDIA.INCONTINENT OF STOOL.R BUTTOCK DRESSING CHANGED.ABD PAD REPLACED.ABDOMINAL DRESSING CHANGED BY SURGICAL PA. TUBE FEEDING CONTINUES VIA J TUBE.NGT TO LOW WALL SUCTION DRAINING GREEN FLUID.
--- NOTE | 2016-08-19 04:47 | PN- General Surgery ---
See Addendum Subjective Subjective: Awake, complaining of dry mouth. Admitted to drinking iced tea yesterday afternoon after 700cc drained into her NGT. Pt was again spoken to about the importance of having absolutely nothing by mouth. Objective Vital Signs and I&Os Vital Signs Date Time Temp Pulse Resp B/P Pulse O2 O2 Flow FiO2 Ox Delivery Rate 08/19 0000 97.6 111 18 102/60 92 Room Air 08/19 0000 92 Room Air 08/18 2107 95 Room Air Room Air 08/18 2000 94 Room Air 08/18 1600 98.1 114 20 128/40 96 Room Air 08/18 1600 97 Room Air 08/18 1547 Nasal 5.0L Cannula 08/18 1200 94 Room Air 08/18 0822 95 Room Air 08/18 0800 98.3 117 20 122/70 97 Room Air 08/18 0800 97 Room Air Intake & Output 08/19 0800 08/19 0000 04/03 1600 03 0800 08/18 0000 /02 1600 Intake Total 760 1160 670 600 800 Output Total 240 052 573 1295 830 Balance 520 540 80 -520 -30 Intake, Blood 330 Product Intake, IV 260 390 Intake, Oral 10 10 Intake, Tube 515 420 450 370 300 Feeding Intake, Tube 245 150 220 220 100 Irrigant Output, 40 50 100 480 130 Drainage Output, 200 70 50 400 Gastric Drainage Output, Urine 500 440 640 300 Physical Exam: TF at 70cc/hr NGT 200cc evening shift - bilious BLANCA about 10cc - mucopurulent, thick +loose stools General: alert and oriented times three Chest: clear anteriorly Abd: soft, +BS, nondistended Wound: sylvia intact, wound looks good, some yellow drainage from drain sites in lower abdomen - dressings changed, BLANCA site and J tube site look good. Assessment/Plan Assessment/Plan Pt is a 41 yo F who is now POD # 7 s/p subtotal gastrectomy for gangrenous stomach. She is tolerating tube feeds. Her high ngt outputs are erroneous as pt continues to drink liquid which she obtains from visitors. Continues to have bowel function. Plan: -Continue npo with tube feeds via feeding J tube. Continue ngt to low wall suction. -Pt will likely need imaging (gastrograffin swallow) prior to advancement. Will discuss the timing of this with attending. -Continue IV abx and diflucan as per ID. -Carafate and protonix for GI ppx. -Consider mobilization or bed exercises. -Medical management per primary team. -Will d/w attending.
[2016-08-19 04:57] LABS: ABSOLUTE BASOPHIL COUNT 0.1 /CUMM (0.0-0.2); ABSOLUTE EOSINOPHIL COUNT 0.7 /CUMM (0.0-0.7); ABSOLUTE GRANULOCYTE CT 7.3 /CUMM (1.4-6.5); ABSOLUTE LYMPH COUNT 0.9 /CUMM (1.2-3.4); ABSOLUTE MONOCYTE COUNT 0.3 /CUMM (0.10-0.60); BASOPHIL % 0.5 % (0.0-2.0); EOSINOPHIL % 7.8 % (0-5); GRANULOCYTE % 78.6 % (42.2-75.2); HEMATOCRIT 27.5 % (37-47); MEAN CORPUSCULAR HGB 27.5 PG (27.0-31.0); MEAN CORPUSCULAR HGB CONC 32.4 G/DL (33.0-37.0); MEAN CORPUSCULAR VOLUME 84.8 FL (81.0-99.0); MEAN PLATELET VOLUME 7.6 FL (7.4-10.4); PLATELET COUNT 205 /CUMM (130-400); RBC DISTRIBUTION WIDTH 17.7 % (11.5-14.5); RED BLOOD CELL CT 3.24 /CUMM (4.20-5.40); WHITE BLOOD CELL COUNT 9.3 /CUMM (4.8-10.8)
--- NOTE | 2016-08-19 07:28 | PN- Resident CRCU ---
Subjective HPI/CRCU Issues: Pt was seen today, she appears tired altough awake and alert. She wants to ask Dr. Trammell if she can have ice chips. SHe received 1.5 mg of ativan last night. SHe refused physical therapy yesterday, unless she was given an extra dose of pain meds. Orta has been removed and she has been incontinent. She received 1 unit of prbc with hb up from 7.3 to 9.1 to 8.9 this morning. Mag 1.8 to 1.5, repleted. 24 hr data: max temp 98. HR 108-114 ST RR 19-22, RA systolicbp 102-129 diastolic bp 41-77 off pressors BS 217,228,185 NG 570 BLANCA 110 Na 133 to 132. Pt can likely be made GM, and plan to get repeat CT pelvis if she will be transferred as she has more pain when getting transferred from bed to bed. Objective Vital Signs & I&O Last 8 Hrs of Vitals and I&O: Intake & Output 08/19 0800 08/19 0000 08/18 1600 Intake Total 164 168 9484 Output Total 320 240 620 Balance 553 520 540 Intake, Blood 330 Product Intake, IV 200 260 Intake, Tube 538 515 420 Feeding Intake, Tube 135 245 150 Irrigant Output, 20 40 50 Drainage Output, 300 200 70 Gastric Drainage Output, Urine 500 Laboratory Tests 08/19 08/18 0415 1630 Chemistry Sodium (137 - 145 mmol/L) 145 Potassium (3.5 - 5.1 mmol/L) 4.2 Chloride (98 - 107 mmol/L) 111 H Carbon Dioxide (22 - 30 mmol/L) 26 Anion Gap (5 - 16) 8 BUN (7 - 17 mg/dL) 14 Creatinine (0.5 - 1.0 mg/dL) 0.5 Estimated GFR (>60 ml/min) > 60 BUN/Creatinine Ratio (7 - 25 %) 28.0 H Magnesium (1.6 - 2.3 mg/dL) 1.5 L Hematology CBC w Diff NO MAN DIFF REQ NO MAN DIFF REQ WBC (4.8 - 10.8 /CUMM) 9.3 8.4 RBC (4.20 - 5.40 /CUMM) 3.24 L 3.34 L Hgb (12.0 - 16.0 G/DL) 8.9 L 9.1 L Hct (37 - 47 %) 27.5 L 28.4 L MCV (81.0 - 99.0 FL) 84.8 84.9 MCH (27.0 - 31.0 PG) 27.5 27.3 RDW (11.5 - 14.5 %) 17.7 H 18.0 H Plt Count (130 - 400 /CUMM) 205 204 MPV (7.4 - 10.4 FL) 7.6 7.8 Gran % (42.2 - 75.2 %) 78.6 H 76.8 H Lymphocytes % (20.5 - 51.1 %) 9.9 L 8.8 L Monocytes % (1.7 - 9.3 %) 3.2 4.4 Eosinophils % (0 - 5 %) 7.8 H 9.1 H Basophils % (0.0 - 2.0 %) 0.5 0.9 Absolute Granulocytes (1.4 - 6.5 /CUMM) 7.3 H 6.4 Absolute Lymphocytes (1.2 - 3.4 /CUMM) 0.9 L 0.7 L Absolute Monocytes (0.10 - 0.60 /CUMM) 0.3 0.4 Absolute Eosinophils (0.0 - 0.7 /CUMM) 0.7 0.8 Absolute Basophils (0.0 - 0.2 /CUMM) 0.1 0.1 PUBS MCHC (33.0 - 37.0 G/DL) 32.4 L 32.1 L Laboratory Tests 08/19/16 0415: Anion Gap 8, Estimated GFR > 60, BUN/Creatinine Ratio 28.0 H, Magnesium 1.5 L, CBC w Diff NO MAN DIFF REQ, RBC 3.24 L, MCV 84.8, MCH 27.5, RDW 17.7 H, MPV 7.6, Gran % 78.6 H, Lymphocytes % 9.9 L, Monocytes % 3.2, Eosinophils % 7.8 H , Basophils % 0.5, Absolute Granulocytes 7.3 H, Absolute Lymphocytes 0.9 L, Absolute Monocytes 0.3, Absolute Eosinophils 0.7, Absolute Basophils 0.1, PUBS MCHC 32.4 L 08/18/16 1630: CBC w Diff NO MAN DIFF REQ, RBC 3.34 L, MCV 84.9, MCH 27.3, RDW 18.0 H, MPV 7.8, Gran % 76.8 H, Lymphocytes % 8.8 L, Monocytes % 4.4, Eosinophils % 9.1 H , Basophils % 0.9, Absolute Granulocytes 6.4, Absolute Lymphocytes 0.7 L, Absolute Monocytes 0.4, Absolute Eosinophils 0.8, Absolute Basophils 0.1, PUBS MCHC 32.1 L Vital Signs Date Time Temp Pulse Resp B/P Pulse O2 O2 Flow FiO2 Ox Delivery Rate 08/19 0400 94 Room Air 08/19 0000 97.6 111 18 102/60 92 Room Air 08/19 0000 92 Room Air 08/18 2107 95 Room Air Room Air 08/18 2000 94 Room Air 08/18 1600 98.1 114 20 128/40 96 Room Air 08/18 1600 97 Room Air 08/18 1547 Nasal 5.0L Cannula 08/18 1200 94 Room Air 08/18 0822 95 Room Air 08/18 0800 98.3 117 20 122/70 97 Room Air 08/18 0800 97 Room Air Intake & Output 08/19 0800 Intake Total 873 Output Total 320 Balance 553 Intake, IV 200 Intake, Tube 538 Feeding Intake, Tube 135 Irrigant Output, 20 Drainage Output, 300 Gastric Drainage Exam General Appearance: alert, awake, mild distress, refused to be examined Weaning Parameters NIF: 36 Minute Volume: 10.0 Resp rate: 16 Vt: 602 Heart Rate: 100 Weaning Schedule Start Time: 0847 Minute Volume: 10.0 Resp Rate: 16 Vt: 602 Heart Rate: 100 End Time: 1136 Minute Volume: 7.56 Resp Rate: 18 Vt: 507 Heart Rate: 104 Current Medications: Current Medications Sig/Shahla Start time Last Medication Dose Route Stop Time Status Admin Acetaminophen 1,000 MG Q6P PRN 08/07 1630 AC 08/11 N/A 1 UNIT IV 2237 Albuterol Sulfate 3 ML BID 08/05 220 AC 08/18 INH 0817 Albuterol Sulfate 2 PUF Q4P PRN 07/30 2200 AC 08/07 INH 0914 Benzocaine/Menthol 1 RAYMUNDO Q2P PRN 08/11 2245 AC PO Collagenase 1 DEMETRA DAILY 08/04 1000 AC 08/18 TOP 1430 Dextrose/Lactated 1,000 ML Q10H 08/18 1000 DC 08/18 Ringer's IV 08/18 1959 1356 Diclofenac Sodium 1 DEMETRA TID PRN 07/30 1145 AC 08/05 TOP 2142 Diphenhydramine HCl 50 MG .STK-MED ONE 08/18 2203 DC IM 08/18 2204 Diphenhydramine HCl 50 MG .STK-MED ONE 08/18 1545 DC IM 08/18 1546 Diphenhydramine HCl 50 MG .STK-MED ONE 08/18 0813 DC IM 08/18 0814 Diphenhydramine HCl 50 MG Q6P PRN 08/07 1630 AC 08/19 IV 0410 Fluconazole 400 MG DAILY 08/15 1000 AC 08/18 Sodium Chloride 200 ML IV 1003 Heparin Sodium 5,000 UNIT Q8 08/12 0600 AC 08/19 (Porcine) SC 0609 Hydromorphone HCl 0.6 MG Q4-PRN PRN 08/15 1045 AC 08/19 IV 0604 Insulin Human Regular 6 UNITS .STK-MED ONE 08/18 1819 DC IV 08/18 1820 Insulin Human Regular 0 Q6 08/10 1800 AC 08/19 SC 0622 Lidocaine 1 PAT DAILY 07/28 1800 AC 07/28 EXT 2004 Lorazepam 0.5 MG ONCE ONE 08/18 2315 DC 08/18 IV 08/18 2316 2323 Lorazepam 1 MG ONCE ONE 08/18 1630 DC 08/18 IV 08/18 1631 1627 Magnesium Sulfate 1 GM Q2H 08/19 0800 AC Dextrose/Water 100 ML IV 08/19 1159 Meropenem 1 GM IQ8 08/13 1600 AC 08/18 IV 2359 Miconazole Nitrate 1 DEMETRA AT BEDTIME 07/29 0130 AC 08/17 VAG 2234 Nystatin 1 DEMETRA TID PRN 08/12 0730 AC 08/16 TOP 0954 Pantoprazole Sodium 40 MG DAILY 08/11 1802 AC 08/18 IV 0826 Phenol 2 SPRAY Q2P PRN 08/18 0800 AC 08/18 EXT 0834 Sucralfate 1 GM Q6 08/16 0830 AC 08/19 PO 0608 Impression/Plan Impression/Problem List Impression: 40-year-old lady with a PMH of diabetes, previous right-sided hemorrhagic pleural effusion S/P Pleurx catheter, lytic therapy 2, previous MSSA sepsis likely secondary to pro-line catheter, previous necrotizing fasciitis of the perineum, left pararenal abscess, osteomyelitis of pubic bone, polysubstance abuse, depression, opiate dependence who presented with complaints of right-sided hip pain, admitted to , found to have pelvic abscess, that was drained by Dr. Sam on 08/01/16. Post procedure, she was hypotensive and was transferred to ICU. She received levophed for 1 day, subsequently her BP was stable and pt was transferred back to . The pt was again hypotensive, and lethargic, and was transferred to ICU. She again was on levophed for a couple of days with BP stable without pressors, and was transferred back to . For the third time, she was again hypotensive requiring another ICU transfer. It has been noted that her BP drops when she receives dilaudid. She was placed on levophed for blood pressure support. The CT findings was concerning for acute abdomen due to perforation vs ileus vs obstruction (tiny amount of free air similar to prior imaging, gastric pneumatosis, ?perforation gastric ulcer, diffusely tender abdomen, no bowel sounds heard, large amount of NG tube output bright yellow --> muddy green --> brown). Her lactic acid elevated up to 2.7, with poor UO. With IVF, her UO improved. There was fluid collection in the left pelvis, that was drained by Dr. Dunaway and put out cloudy yellow --> brown fluid collection in the pelvis (similar in color and consistency to NG tube fluid), most likely representing infected ascitic fluid, consistent with peritonitis. We were concerned for perforation in the stomach due to image findings of gastric pneumatosis. Gastrograffin studies done and showed leakage of contrast out of the stomach. Pt was taken to OR on 08/12/[address] Trammell for exploratory laparotomy with partial gastrectomy for gangrenous stomach and J tube insertion. There was no perforation found, but seeping of fluid through the gangrenous wall into the peritoneal space is entirely possible causing peritonitis. The etiology of the the gangrene is unknown, could be cocaine? vasopressors? hypotension? She was started on tube feeds and have been tolerating it well, except she constantly complains of dry mouth because she is not allowed to take anything PO (although she did admitted to drinking icetea). Her other issues this admission include right pelvis infection (sp IR drainage on 08/01/16 followed by first hypotensive episode requiring ICU monitoring), right upper extremity swelling (due to intentional fall) that has now improved, with ortho following. She also developed [place] most likely multifactorial in nature (BUN/Cr up to 66/2.9) prerenal and ATN - insults including hypotension, contrast, vancomycin, with nephrology following, and kidney functions improved. Lines: BLANCA drain d8 J tube d8 Proline (08/07/16) NG tube (08/10/16) Right pelvis catheter (08/01/16 - 08/17/16) Left pelvis catheter (08/11/16 - 08/17/16) Restrains UE discontinued after 3 days Extubated after 3 days A line removed after 4 days Orta (removed) Respiratory * Intubated 08/12 - 08/14 Cardiovascular # Hypotension * Off levophed 08/14 645AM * IVF discontinued 08/14, consider diuresis for anasarca ID # Pelvic abscess sp IR drainage (right 08/01 and left 08/11, catheters removed 08/17) # Peritonitis due to gangrenous stomach (due to ischemia..cocaine? gastroparesis ? pressors?) - 08/11: [place] [address], VRE, enterobacter, yeast, lactobacillus. * Oxacillin started to cover MSSA on 08/01, discontinued on 08/10/16. Zosyn started on 08/10/16 to cover pseudomonas. Fluconazole 400 IV q8 started on 08/12 for yeast in ascitic fluid, changed to daily when kidney functions improved. Zosyn discontinued and meropenem started on 08/13. * Plan for repeat CT pelvis prior to discharge # S/P partial gastrectomy for gangrenous stomach, with J tube * Tube feeding as per surgery and nutrition * Continue IV protonix , sucralfate * Appreciate surgery input * NG tube low wall suction. NOTHING THROUGH NG TUBE other than sucralfate * Chloroseptic spray for throat pain * PO meds have been discontinued including lexapro, haldol, lyrica, na bicarb, senna, docusate, tylenol, simethicone. These meds would need to be reordered once pt can eat. # Necrotic decubitus ulcer - Excised at bedside 08/10 - Not likely to be source of infection # Right shoulder pain with decreased passive and active ROM (improving) # Right elbow swelling (improving) - Xray and US obtained * Refuses MRI unless done under anesthesia * Appreciate Ortho (Dr. Schulz) input # The scalp lesion popped 08/02 PM, with purulent drainage noted - Alopecia noted Heme # Anemia - 08/12/16: received 1 PRBC - 08/18/16: Hb down to 7.3, transfused 1 unit , hb came up to 9.1 * Follow CBC Metabolic # Acute kidney injury resolved * Continue to follow kidney functions * Appreciate nephro input * Consider starting renvela if phos elevated # Hyponatremia * Continue to follow sodium level * Appreciate nephro input # Hyperkalemia * Continue to monitor Psych # Depression # Hx of drug abuse * On the W-10 and the discharge instructions, please ask the receiving facility/ ECF to call and make an intake appointment at [facility], [address] [place] [address] when her discharge date is known, . * Cannot go home with proline, must go to rehab # Agitation * IV benadryl PRN Endocrine # Diabetes mellitus * Novolog tidac/qhs * Levemir 60 bid ON HOLD,consider restarting at lower dose * Watch blood sugar closely * Consider endo consult Alimentary * On tube feeds Skin # Decubitus ulcer * Wound consult with Dr. English appreciated * Consulted surgery, necrotic patch excised at bedside, no deep tracking or necrosis or fasciitis noted * Consider rectal tube placement Diet: tube feeds DVT ppx: alps and heparin FC Consults: ID, surgery, renal, psych, ortho, PT, wound, nutrition Labs: BEP mag for electrolytes, CBC for anemia Problem List: 1. S/P gastrectomy Pain Ratin Tomorrow's Labs & Rationales: bep mag and phos for electrolyte cbc for anemia Plan DVT/Prophylaxis: mechanical, pharmacological
[2016-08-19 08:00] VITALS: BP 116/62
--- NOTE | 2016-08-19 08:00 | NUR ---
Patient is alert and oriented x's 3, able to follow commands and answer questions appropriately- can be anxious, non compliant and uncooperative. ST on tele monitor, HR= 100-110's. SBP: 120's and pt denies chest pain. On room air, lungs clear. O2 sats 96%. R. nares NGT in place to low wall suction with light green output noted. Strict NPO and this was reinforced to patient at this time with verbalized understanding. [place] to upper abdomen clean dry and intact. J tube in place and Vital AF is infusing at a goal rate of 70mls/hr with 110ml water flush every 4 hours- no residual noted at this time. Left lower quadrant BLANCA drain in place with brown output noted. INC of urine and stool- Pt is refusing to turn at this time stating that "She would like to be left alone and will turn after pain medications are given." Dilaudid is due at 1000. Patient re-educated on wound care and the importance of turning and repositioning. LCW proline in place and site is WNL- patient due for IV abx. Pt scheduled to work with patient this morning- Vitals are currently stable. Will continue to closely monitor patient.
--- NOTE | 2016-08-19 10:49 | PN- CRCU ---
Subjective HPI/Critical Care Issues: pt seen and examined ngt remains afebrile 94% saturation pain is controlled with dilaudid wbc 9.3 Objective Current Medications: Current Medications Sig/Shahla Start time Last Medication Dose Route Stop Time Status Admin Acetaminophen 1,000 MG Q6P PRN 08/07 1630 AC 08/11 N/A 1 UNIT IV 2237 Albuterol Sulfate 3 ML BID 08/05 2200 AC 08/18 INH 0817 Albuterol Sulfate 2 PUF Q4P PRN 07/30 2200 AC 08/07 INH 0914 Benzocaine/Menthol 1 RAYMUNDO Q2P PRN 08/11 2245 AC PO Collagenase 1 DEMETRA DAILY 08/04 1000 AC 08/18 TOP 1430 Dextrose/Lactated 1,000 ML Q10H 08/18 1000 DC 08/18 Ringer's IV 08/18 1959 1356 Diclofenac Sodium 1 DEMETRA TID PRN 07/30 1145 AC 08/05 TOP 2142 Diphenhydramine HCl 50 MG .STK-MED ONE 08/18 2203 DC IM 08/18 2204 Diphenhydramine HCl 50 MG .STK-MED ONE 08/18 1545 DC IM 08/18 1546 Diphenhydramine HCl 50 MG Q6P PRN 08/07 1630 AC 08/19 IV 1033 Fluconazole 400 MG DAILY 08/15 1000 AC 08/19 Sodium Chloride 200 ML IV 0853 Heparin Sodium 5,000 UNIT Q8 08/12 0600 AC 08/19 (Porcine) SC 0609 Hydromorphone HCl 0.6 MG Q4-PRN PRN 08/15 1045 AC 08/19 IV 1002 Insulin Human Regular 6 UNITS .STK-MED ONE 08/18 1819 DC IV 08/18 1820 Insulin Human Regular 0 Q6 08/10 1800 AC 08/19 SC 0622 Lidocaine 1 PAT DAILY 07/28 1800 AC 07/28 EXT 2004 Lorazepam 0.5 MG ONCE ONE 08/18 2315 DC 08/18 IV 08/18 2316 2323 Lorazepam 1 MG ONCE ONE 08/18 1630 DC 08/18 IV 08/18 1631 1627 Magnesium Sulfate 1 GM Q2H 08/19 0800 AC Dextrose/Water 100 ML IV 08/19 1159 Meropenem 1 GM IQ8 08/13 1600 AC 08/19 IV 0846 Miconazole Nitrate 1 DEMETRA AT BEDTIME 07/29 0130 AC 08/17 VAG 2234 Nystatin 1 DEMETRA TID PRN 08/12 0730 08/16 TOP 0954 Pantoprazole Sodium 40 MG DAILY 08/11 180 08/19 IV 0846 Phenol 2 SPRAY Q2P PRN 08/18 0800 AC 08/18 EXT 0834 Sucralfate 1 GM Q6 08/16 0830 AC 08/19 PO 0608 Vital Signs & I&O Last 24 Hrs of Vitals and I&O: Vital Signs Date Time Temp Pulse Resp B/P Pulse O2 O2 Flow FiO2 Ox Delivery Rate 08/19 0400 94 Room Air 08/19 0000 97.6 111 18 102/60 92 Room Air 08/19 0000 92 Room Air 08/18 2107 95 Room Air Room Air 08/18 2000 94 Room Air 08/18 1600 98.1 114 20 128/40 96 Room Air 08/18 1600 97 Room Air 08/18 1547 Nasal 5.0L Cannula 08/18 1200 94 Room Air Intake & Output 08/19 1600 08/19 0800 08/19 0000 Intake Total 873 760 Output Total 320 240 Balance 553 520 Intake, IV 200 Intake, Tube 538 515 Feeding Intake, Tube 135 245 Irrigant Output, 20 40 Drainage Output, 300 200 Gastric Drainage Exam Other Physical Findings: gen alert and comfortable heent ngt cvs s1, s2 lungs clear anterior chest, does not want to be turned proline in place abd distended, tenderness ext 1+ edema Results Last 24 Hrs of Lab Results: Laboratory Tests 08/19/16 0415: Anion Gap 8, Estimated GFR > 60, BUN/Creatinine Ratio 28.0 H, Phosphorus 2.1 L , Magnesium 1.5 L, CBC w Diff NO MAN DIFF REQ, RBC 3.24 L, MCV 84.8, MCH 27.5, RDW 17.7 H, MPV 7.6, Gran % 78.6 H, Lymphocytes % 9.9 L, Monocytes % 3.2, Eosinophils % 7.8 H, Basophils % 0.5, Absolute Granulocytes 7.3 H, Absolute Lymphocytes 0.9 L, Absolute Monocytes 0.3, Absolute Eosinophils 0.7, Absolute Basophils 0.1, PUBS MCHC 32.4 L 08/18/16 1630: CBC w Diff NO MAN DIFF REQ, RBC 3.34 L, MCV 84.9, MCH 27.3, RDW 18.0 H, MPV 7.8, Gran % 76.8 H, Lymphocytes % 8.8 L, Monocytes % 4.4, Eosinophils % 9.1 H , Basophils % 0.9, Absolute Granulocytes 6.4, Absolute Lymphocytes 0.7 L, Absolute Monocytes 0.4, Absolute Eosinophils 0.8, Absolute Basophils 0.1, PUBS MCHC 32.1 L Impression/Plan Impression/Plan Impression/Plan: Impression 41 year old woman - hx of multiple collections/pus, MSSA, s/p partial gastrectomy - resolved [place] - anemia improved Plan - ID follow up, on meropenem and fluconazole - s/p transfusion with great response - surgical follow up, still NPO, alimentary status per surgery - pain control - monitor coags, cbc - DVT prophylaxis at all times TTS 35 min Downgrade to GM
--- NOTE | 2016-08-19 11:06 | PN- Infect Dx ---
Subjective Subjective: Afebrile. She continues to complain of abdominal pain. She apparently had a significant amount of NG tube output yesterday after drinking a significant amount of iced tea. Objective Last 24 Hrs of Vital Signs/I&O Vital Signs Date Time Temp Pulse Resp B/P Pulse O2 O2 Flow FiO2 Ox Delivery Rate 08/19 0400 94 Room Air 08/19 0000 97.6 111 18 102/60 92 Room Air 08/19 0000 92 Room Air 08/18 2107 95 Room Air Room Air 08/18 2000 94 Room Air 08/18 1600 98.1 114 20 128/40 96 Room Air 08/18 1600 97 Room Air 08/18 1547 Nasal 5.0L Cannula 08/18 1200 94 Room Air Intake & Output 08/19 1600 08/19 0800 08/19 0000 Intake Total 873 760 Output Total 320 240 Balance 553 520 Intake, IV 200 Intake, Tube 538 515 Feeding Intake, Tube 135 245 Irrigant Output, 20 40 Drainage Output, 300 200 Gastric Drainage Physical Exam Other Physical Findings: She appears comfortable in no acute distress HEENT NG tube in place with 300 mL output overnight Neck Pro-Line in the left upper chest with no inflammation at the site Lungs are clear Heart regular rhythm with no murmur Abdomen is soft, less tender on palpation, positive bowel sounds; BLANCA drain with purulent fluid; J-tube in place Extremities 1+ edema both lower extremities Results Last 24 Hours of Lab Results: Laboratory Tests 08/19 08/18 0415 1630 Chemistry Sodium (137 - 145 mmol/L) 145 Potassium (3.5 - 5.1 mmol/L) 4.2 Chloride (98 - 107 mmol/L) 111 H Carbon Dioxide (22 - 30 mmol/L) 26 Anion Gap (5 - 16) 8 BUN (7 - 17 mg/dL) 14 Creatinine (0.5 - 1.0 mg/dL) 0.5 Estimated GFR (>60 ml/min) > 60 BUN/Creatinine Ratio (7 - 25 %) 28.0 H Phosphorus (2.5 - 4.5 mg/dL) 2.1 L Magnesium (1.6 - 2.3 mg/dL) 1.5 L Hematology CBC w Diff NO MAN DIFF REQ NO MAN DIFF REQ WBC (4.8 - 10.8 /CUMM) 9.3 8.4 RBC (4.20 - 5.40 /CUMM) 3.24 L 3.34 L Hgb (12.0 - 16.0 G/DL) 8.9 L 9.1 L Hct (37 - 47 %) 27.5 L 28.4 L MCV (81.0 - 99.0 FL) 84.8 84.9 MCH (27.0 - 31.0 PG) 27.5 27.3 RDW (11.5 - 14.5 %) 17.7 H 18.0 H Plt Count (130 - 400 /CUMM) 205 204 MPV (7.4 - 10.4 FL) 7.6 7.8 Gran % (42.2 - 75.2 %) 78.6 H 76.8 H Lymphocytes % (20.5 - 51.1 %) 9.9 L 8.8 L Monocytes % (1.7 - 9.3 %) 3.2 4.4 Eosinophils % (0 - 5 %) 7.8 H 9.1 H Basophils % (0.0 - 2.0 %) 0.5 0.9 Absolute Granulocytes (1.4 - 6.5 /CUMM) 7.3 H 6.4 Absolute Lymphocytes (1.2 - 3.4 /CUMM) 0.9 L 0.7 L Absolute Monocytes (0.10 - 0.60 /CUMM) 0.3 0.4 Absolute Eosinophils (0.0 - 0.7 /CUMM) 0.7 0.8 Absolute Basophils (0.0 - 0.2 /CUMM) 0.1 0.1 PUBS MCHC (33.0 - 37.0 G/DL) 32.4 L 32.1 L Last 24 Hours of Haris Results: No new cultures Assessment/Plan Impression: Stable with temperatures and white blood cell count remaining normal on Meropenem and Fluconazole for polymicrobial peritonitis/sepsis secondary to Enterobacter, Prevotella and yeast now 1 week status post exploratory laparotomy and partial gastrectomy for a gangrenous stomach with perforation. The appearance of the fluid in her BLANCA drain is of some concern and may need to consider a leak or fistula. The status of her right pelvic abscess is unclear, with her most recent imaging revealing a decrease in size, now status post removal of the catheter that had been placed 18 days ago, with MSSA isolated from the culture. 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 Have discussed with IR who feels that repeat imaging can be deferred until she is closer to discharge. Suggestion: 1. Will need a repeat CT of the abdomen and pelvis with oral and IV contrast prior to discharge 2. Further evaluation/management of her GI status per Surgery 3. Continue Meropenem and Fluconazole
--- NOTE | 2016-08-19 12:00 | NUR ---
Surgical PA called to the bedside- Jtube outer sutures no longer intact- Dr. Trammell also at the bedside to assess. Jtube still remains in proper place- Outer sutures replaced by surgical PA and tube feeds restarted. Will continue to closely monitor patient.
[2016-08-19 16:00] VITALS: BP 110/70
--- NOTE | 2016-08-19 16:03 | PN- Psychiatry ---
Assessment/Plan Impression: Identifying Info: 40-year-old single female well known to this service presents to [facility] emergency department on 07/27/16 with severe right hip pain. She was in DKA and was admitted to medicine for physical therapy, IV fluids, monitoring of her glucose, endocrinology consult, nonnarcotic pain management. Subsequently dx with multiple medical comorbidities and seen today in CCU. SUBJECTIVE Patient reports she is too tired to purchase patient interview at this time but does request Ativan. She also reports that she did not feel haloperidol as previously ordered was sufficient to control her feelings of agitation. Brief ROS Gait: Impaired Sleep: Hypersomnia Appetite: (not assessed) OBJECTIVE Mental Status Exam Presentation/Appearance: Patient is not cooperative with full evaluation. Hospital garb. Lying in bed Orientation: Oriented to self and place Sensorium: Somnolent Eye contact: Poor Affect: Blunted Mood: Dysphoric, anxious Depression: Endorses Anxiety: Endorses Thought Content: - Denies SI/HI, AH/VH, PI. States and also believes they will not kill themselves. Thought Process: Linear and goal directed with continued perseveration on medications Speech: Soft Judgment: Poor Insight: Poor Cognition: Memory: Grossly intact Attention/Concentration: Grossly intact ASSESSMENT 40 yo SCF with pain and high medication tolerance reports continued distress. She continues to request additional medication which is a typical presentation for her. She could potentially benefit from reinitiation of haloperidol at a higher dose however given her current somnolent state it would not be prudent to start this medication at this time. 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 No new recommendations for psychotropics at this time. 2. Patient is agreeable to outpatient psych, On the W-10 and the discharge instructions, please ask the receiving facility/ECF to call and make an intake appointment at [facility], [address] [place] [address] when her discharge date is known, [phone]. 3. Please have patient followed by psych at receiving facility. Thank you for including psychiatry in this case we'll continue to follow. Subjective Subjective: . Objective Last 24 Hrs of Vital Signs/I&O Vital Signs Date Time Temp Pulse Resp B/P Pulse O2 O2 Flow FiO2 Ox Delivery Rate 08/19 1245 95 Room Air 08/19 0800 95 Room Air 08/19 0800 97.7 110 18 116/62 95 Room Air 08/19 0400 94 Room Air 08/19 0000 97.6 111 18 102/60 92 Room Air 08/19 0000 92 Room Air 08/18 2107 95 Room Air Room Air 08/18 2000 94 Room Air Intake & Output 08/19 1600 08/19 0800 08/19 0000 Intake Total 873 760 Output Total 320 240 Balance 553 520 Intake, IV 200 Intake, Tube 538 515 Feeding Intake, Tube 135 245 Irrigant Output, 20 40 Drainage Output, 300 200 Gastric Drainage Current Medications Sig/Shahla Start time Last Medication Dose Route Stop Time Status Admin Acetaminophen 1,000 MG Q6P PRN 08/07 1630 AC 08/11 N/A 1 UNIT IV 2237 Albuterol Sulfate 3 ML BID 08/05 2200 AC 08/18 INH 0817 Albuterol Sulfate 2 PUF Q4P PRN 07/30 2200 AC 08/07 INH 0914 Benzocaine/Menthol 1 RAYMUNDO Q2P PRN 08/11 2245 AC PO Collagenase 1 DEMETRA DAILY 08/04 1000 AC 08/19 TOP 1129 Dextrose/Lactated 1,000 ML Q10H 08/18 1000 DC 08/18 Ringer's IV 08/18 1959 1356 Diclofenac Sodium 1 DEMETRA TID PRN 07/30 1145 AC 08/05 TOP 2142 Diphenhydramine HCl 50 MG .STK-MED ONE 08/19 0401 DC IM 08/19 0402 Diphenhydramine HCl 50 MG .STK-MED ONE 08/18 2203 DC IM 08/18 2204 Diphenhydramine HCl 50 MG Q6P PRN 08/07 1630 AC 08/19 IV 1033 Fluconazole 400 MG DAILY 08/15 1000 AC 08/19 Sodium Chloride 200 ML IV 0853 Heparin Sodium 5,000 UNIT Q8 08/12 0600 AC 08/19 (Porcine) SC 1412 Hydromorphone HCl 0.6 MG Q4-PRN PRN 08/15 1045 AC 08/19 IV 1411 Insulin Human Regular 6 UNITS .STK-MED ONE 08/18 1819 DC IV 08/18 1820 Insulin Human Regular 0 Q6 08/10 1800 AC 08/19 SC 1222 Lidocaine 1 PAT DAILY 07/28 1800 AC 07/28 EXT 2003 Lorazepam 0.5 MG ONCE ONE 08/18 2315 DC 08/18 IV 08/18 2316 2323 Lorazepam 1 MG ONCE ONE 08/18 1630 DC 08/18 IV 08/18 1631 1627 Magnesium Sulfate 1 GM Q2H 08/19 0800 DC 08/19 Dextrose/Water 100 ML IV 08/19 1159 1254 Meropenem 1 GM IQ8 08/13 1600 AC 08/19 IV 0846 Miconazole Nitrate 1 DEMETRA AT BEDTIME 07/29 0130 AC 08/17 VAG 2234 Nystatin 1 DEMETRA TID PRN 08/12 0730 AC 08/16 TOP 0954 Pantoprazole Sodium 40 MG DAILY 08/11 1802 AC 08/19 IV 0846 Phenol 2 SPRAY Q2P PRN 08/18 0800 AC 08/18 EXT 0834 Sucralfate 1 GM Q6 08/16 0830 AC 08/19 PO 0608 Laboratory Tests 08/19/16 0415: Anion Gap 8, Estimated GFR > 60, BUN/Creatinine Ratio 28.0 H, Phosphorus 2.1 L , Magnesium 1.5 L, CBC w Diff NO MAN DIFF REQ, RBC 3.24 L, MCV 84.8, MCH 27.5, RDW 17.7 H, MPV 7.6, Gran % 78.6 H, Lymphocytes % 9.9 L, Monocytes % 3.2, Eosinophils % 7.8 H, Basophils % 0.5, Absolute Granulocytes 7.3 H, Absolute Lymphocytes 0.9 L, Absolute Monocytes 0.3, Absolute Eosinophils 0.7, Absolute Basophils 0.1, PUBS MCHC 32.4 L 08/18/16 1630: CBC w Diff NO MAN DIFF REQ, RBC 3.34 L, MCV 84.9, MCH 27.3, RDW 18.0 H, MPV 7.8, Gran % 76.8 H, Lymphocytes % 8.8 L, Monocytes % 4.4, Eosinophils % 9.1 H , Basophils % 0.9, Absolute Granulocytes 6.4, Absolute Lymphocytes 0.7 L, Absolute Monocytes 0.4, Absolute Eosinophils 0.8, Absolute Basophils 0.1, PUBS MCHC 32.1 L
[2016-08-20] VITALS: BP 96/60
[2016-08-20 05:10] LABS: ABSOLUTE BASOPHIL COUNT 0.1 /CUMM (0.0-0.2); ABSOLUTE GRANULOCYTE CT 6.4 /CUMM (1.4-6.5); ABSOLUTE LYMPH COUNT 0.9 /CUMM (1.2-3.4); ABSOLUTE MONOCYTE COUNT 0.3 /CUMM (0.10-0.60); BASOPHIL % 1.1 % (0.0-2.0); EOSINOPHIL % 11.3 % (0-5); GRANULOCYTE % 73.1 % (42.2-75.2); HEMATOCRIT 26.8 % (37-47); MEAN CORPUSCULAR HGB CONC 31.6 G/DL (33.0-37.0); MEAN CORPUSCULAR VOLUME 85.5 FL (81.0-99.0); MEAN PLATELET VOLUME 7.3 FL (7.4-10.4); PLATELET COUNT 212 /CUMM (130-400); RBC DISTRIBUTION WIDTH 18.8 % (11.5-14.5); RED BLOOD CELL CT 3.14 /CUMM (4.20-5.40); WHITE BLOOD CELL COUNT 8.8 /CUMM (4.8-10.8)
--- NOTE | 2016-08-20 05:47 | PN- General Surgery ---
See Addendum Subjective Subjective: Awake, complaining of abdominal pain (no change) and dry mouth. No fever, no chills, no wosrening sx. Objective Vital Signs and I&Os Vital Signs Date Time Temp Pulse Resp B/P Pulse O2 O2 Flow FiO2 Ox Delivery Rate 08/20 0000 97.2 107 20 96/60 93 Room Air 08/20 0000 93 Room Air 08/19 2054 96 Room Air Room Air 08/19 1600 98.0 88 20 110/70 96 Room Air 08/19 1245 95 Room Air 08/19 0800 95 Room Air 08/19 0800 97.7 110 18 116/62 95 Room Air Intake & Output 08/20 0808/20 0000 08/19 1600 08/19 0808/19 0000 08/18 1600 Intake Total 790 645 815 167 9980 Output Total 270 270 320 240 620 Balance 520 375 553 520 540 Intake, Blood 330 Product Intake, IV 0 200 260 Intake, Oral 30 Intake, Tube 515 395 538 515 420 Feeding Intake, Tube 245 250 135 245 150 Irrigant Number 0 2 Bowel Movements Output, 70 120 20 40 50 Drainage Output, 200 150 300 200 70 Gastric Drainage Output, Urine 500 Physical Exam: TF at 70cc/hr NGT 200cc evening shift - bilious, 350 overnight BLANCA minimal mucopurulent, thick +loose stools wbc- 8.8 (trending down) General: alert and oriented times three Chest: clear anteriorly Heart-mild tachycardia, regular Abd: soft, +BS, nondistended, diffusely tender. Wound: sylvia intact, wound looks good, minimal serous drainage laterally. BLANCA site and J tube site look good, sutured in place,no signs of infection. Assessment/Plan Assessment/Plan Pt is a 41 yo F who is now POD # 8 s/p subtotal gastrectomy for gangrenous stomach. She is tolerating tube feeds. Her high ngt outputs are elevated since yesterday. Continues to have bowel function. Plan: -Continue current care -Continue npo with tube feeds via feeding J tube. Continue ngt to low wall suction. -Pt will likely need imaging (gastrograffin swallow) prior to advancement. Will discuss the timing of this with attending. -Continue IV abx and diflucan as per ID. -DVT prophylaxsis with heparin sq -Pain medication as needed (keep to minimum) -Carafate and protonix for GI ppx. -Consider mobilization or bed exercises. -Medical management per primary team. -Will d/w attending. Core Measures/Miscellaneous Venous Thromboembolism VTE Risk Factors: Acute medical illness VTE Contraindications: No Contraindications VTE Diagnosis: No VTE Type: NONE VTE Confirmed by (Test): NONE Beta Jimmy Is Beta Jimmy a Home Med? No Antibiotics Is Patient on Antibiotics? No
--- NOTE | 2016-08-20 07:06 | PN- Housestaff ---
Subjective Follow-up For: sp gastrectomy Subjective: she received one dose of ativan last night. Pt seen this morning, still reports "feeling like crap". She did well with physical therapy yesterday, she sat the at the edge of the bed, and was asking to roll over. She continues to not follow instructions to not take anything orally. Her nurse noted that she was drinking ice chips overnight. Her tube feeds changed to glucerna this morning. Labs reviewed, her hb 8.9 to 8.5, k 4.0, phos 2.5, mg 1.7. systolic bp 96-128, diastolic bp 44-70. ordered 2Xmg sulf. Review of Systems Constitutional: Reports: see HPI. Gastrointestinal: Reports: abdominal pain. Objective Last 24 Hrs of Vital Signs/I&O Vital Signs Date Time Temp Pulse Resp B/P Pulse O2 O2 Flow FiO2 Ox Delivery Rate 08/20 0000 97.2 107 20 96/60 93 Room Air 08/20 0000 93 Room Air 08/19 2054 96 Room Air Room Air 08/19 1600 98.0 88 20 110/70 96 Room Air 08/19 1245 95 Room Air Intake & Output 08/20 1600 05 0800 08/20 0000 Intake Total 565 790 Output Total 350 270 Balance 215 520 Intake, IV 0 0 Intake, Oral 30 30 Intake, Tube 425 515 Feeding Intake, Tube 110 245 Irrigant Number 1 0 Bowel Movements Output, 0 70 Drainage Output, 350 200 Gastric Drainage Physical Exam General Appearance: Alert, Oriented X3, Cooperative, Mild Distress Cardiovascular: Normal S1, Normal S2, tachycardic Lungs: Clear to Auscultation, Normal Air Movement Abdomen: Normal Bowel Sounds, Soft, diffusely tender Neurological: Normal Speech Current Medications: Current Medications Sig/Shahla Start time Last Medication Dose Route Stop Time Status Admin Acetaminophen 1,000 MG Q6P PRN 08/07 1630 AC 08/11 N/A 1 UNIT IV 2237 Albuterol Sulfate 3 ML BID 08/05 2199 AC 08/18 INH 0817 Albuterol Sulfate 2 PUF Q4P PRN 07/30 220 AC 08/07 INH 0914 Benzocaine/Menthol 1 RAYMUNDO Q2P PRN 08/11 2245 AC PO Collagenase 1 DEMETRA DAILY 08/04 1000 AC 08/19 TOP 1129 Diclofenac Sodium 1 DEMETRA TID PRN 07/30 1145 AC 08/05 TOP 2142 Diphenhydramine HCl 50 MG .STK-MED ONE 08/19 2331 DC IM 08/19 2332 Diphenhydramine HCl 50 MG .STK-MED ONE 08/19 1752 DC IM 08/19 1753 Diphenhydramine HCl 50 MG .STK-MED ONE 08/19 1025 DC IM 08/19 1026 Diphenhydramine HCl 50 MG Q6P PRN 08/07 1630 AC 08/20 IV 0542 Fluconazole 400 MG DAILY 08/15 1000 AC 08/19 Sodium Chloride 200 ML IV 0853 Heparin Sodium 5,000 UNIT Q8 08/12 0600 AC 08/20 (Porcine) SC 0535 Hydromorphone HCl 0.6 MG Q4-PRN PRN 08/15 1045 AC 08/20 IV 0625 Insulin Human Regular 0 Q6 08/10 1800 AC 08/20 SC 0532 Lidocaine 20 ML .STK-MED ONE 08/19 1126 DC IA 08/19 1127 Lidocaine 1 PAT DAILY 07/28 1800 AC 07/28 EXT 2004 Lorazepam 0.5 MG ONCE ONE 08/20 0015 DC 08/20 IV 08/20 0016 0015 Magnesium Sulfate 1 GM Q2H 08/20 0715 AC Dextrose/Water 100 ML IV 08/20 1114 Magnesium Sulfate 1 GM Q2H 08/19 0800 DC 08/19 Dextrose/Water 100 ML IV 08/19 1159 1254 Meropenem 1 GM IQ8 08/13 1600 AC 08/19 IV 2340 Miconazole Nitrate 1 DEMETRA AT BEDTIME 07/29 0130 AC 08/17 VAG 2234 Nystatin 1 DEMETRA TID PRN 08/12 0730 AC 08/16 TOP 0954 Pantoprazole Sodium 40 MG DAILY 08/11 1802 AC 08/19 IV 0846 Phenol 2 SPRAY Q2P PRN 08/18 0800 AC 08/18 EXT 0834 Sucralfate 1 GM Q6 08/16 0830 AC 08/20 PO 0536 Last 24 Hrs of Lab/Haris Results Last 24 Hrs of Labs/Mics: Laboratory Tests 08/20/16 0435: Anion Gap 8, Estimated GFR > 60, BUN/Creatinine Ratio 26.0 H, Phosphorus 2.5, Magnesium 1.7, CBC w Diff NO MAN DIFF REQ, RBC 3.14 L, MCV 85.5, MCH 27.0, RDW 18.8 H, MPV 7.3 L, Gran % 73.1, Lymphocytes % 10.6 L, Monocytes % 3.9, Eosinophils % 11.3 H, Basophils % 1.1, Absolute Granulocytes 6.4, Absolute Lymphocytes 0.9 L, Absolute Monocytes 0.3, Absolute Eosinophils 1.0, Absolute Basophils 0.1, PUBS MCHC 31.6 L Assessment/Plan Assessment: 40-year-old lady with a PMH of diabetes, previous right-sided hemorrhagic pleural effusion S/P Pleurx catheter, lytic therapy 2, previous MSSA sepsis likely secondary to pro-line catheter, previous necrotizing fasciitis of the perineum, left pararenal abscess, osteomyelitis of pubic bone, polysubstance abuse, depression, opiate dependence who presented with complaints of right-sided hip pain, admitted to , found to have pelvic abscess, that was drained by Dr. Sam on 08/01/16. Post procedure, she was hypotensive and was transferred to ICU. She received levophed for 1 day, subsequently her BP was stable and pt was transferred back to . The pt was again hypotensive, and lethargic, and was transferred to ICU. She again was on levophed for a couple of days with BP stable without pressors, and was transferred back to . For the third time, she was again hypotensive requiring another ICU transfer. It has been noted that her BP drops when she receives dilaudid. She was placed on levophed for blood pressure support. The CT findings was concerning for acute abdomen due to perforation vs ileus vs obstruction (tiny amount of free air similar to prior imaging, gastric pneumatosis, ?perforation gastric ulcer, diffusely tender abdomen, no bowel sounds heard, large amount of NG tube output bright yellow --> muddy green --> brown). Her lactic acid elevated up to 2.7, with poor UO. With IVF, her UO improved. There was fluid collection in the left pelvis, that was drained by Dr. Dunaway and put out cloudy yellow --> brown fluid collection in the pelvis (similar in color and consistency to NG tube fluid), most likely representing infected ascitic fluid, consistent with peritonitis. We were concerned for perforation in the stomach due to image findings of gastric pneumatosis. Gastrograffin studies done and showed leakage of contrast out of the stomach. Pt was taken to OR on 08/12/[address] Trammell for exploratory laparotomy with partial gastrectomy for gangrenous stomach and J tube insertion. There was no perforation found, but seeping of fluid through the gangrenous wall into the peritoneal space is entirely possible causing peritonitis. The etiology of the the gangrene is unknown, could be cocaine? vasopressors? hypotension? She was started on tube feeds and have been tolerating it well, except she constantly complains of dry mouth because she is not allowed to take anything PO (although she did admit to drinking icetea and have been seen drinking icechips) . Her other issues this admission include right pelvis infection (sp IR drainage on 08/01/16 followed by first hypotensive episode requiring ICU monitoring), right upper extremity swelling (due to intentional fall) that has now improved, with ortho following. She also developed BROOKLYNN most likely multifactorial in nature (BUN/Cr up to 66/2.9) prerenal and ATN - insults including hypotension, contrast, vancomycin, with nephrology following, and kidney functions improved. Lines: BLANCA drain d9 J tube d9 Proline (08/07/16) NG tube (08/10/16) Right pelvis catheter (08/01/16 - 08/17/16) Left pelvis catheter (08/11/16 - 08/17/16) Restrains UE discontinued after 3 days Extubated after 3 days A line removed after 4 days Orta (removed) Respiratory * Intubated 08/12 - 08/14 Cardiovascular # Hypotension * Off levophed 08/14 645AM * IVF discontinued 08/14, consider diuresis for anasarca ID # Pelvic abscess sp IR drainage (right 08/01 and left 08/11, catheters removed 08/17) # Peritonitis due to gangrenous stomach (due to ischemia..cocaine? gastroparesis ? pressors?) - 08/11: [place] [address], VRE, enterobacter, yeast, lactobacillus. * Oxacillin started to cover MSSA on 08/01, discontinued on 08/10/16. Zosyn started on 08/10/16 to cover pseudomonas. Fluconazole 400 IV q8 started on 08/12 for yeast in ascitic fluid, changed to daily when kidney functions improved. Zosyn discontinued and meropenem started on 08/13. * Plan for repeat CT pelvis prior to discharge # S/P partial gastrectomy for gangrenous stomach, with J tube * Tube feeding as per surgery and nutrition * Continue IV protonix , sucralfate * Appreciate surgery input * NG tube low wall suction. NOTHING THROUGH NG TUBE other than sucralfate (but pt noncompliant) * Chloroseptic spray for throat pain * Consider repeat CT gastrograffin study to evaluate for leakage * PO meds have been discontinued including lexapro, haldol, lyrica, na bicarb, senna, docusate, tylenol, simethicone. These meds would need to be reordered once pt can eat. # Necrotic decubitus ulcer - Excised at bedside 08/10 - Not likely to be source of infection # Right shoulder pain with decreased passive and active ROM (improving) # Right elbow swelling (improving) - Xray and US obtained * Refuses MRI unless done under anesthesia * Appreciate Ortho (Dr. Schulz) input # The scalp lesion popped 08/02 PM, with purulent drainage noted - Alopecia noted Heme # Anemia - 08/12/16: received 1 PRBC - 08/18/16: Hb down to 7.3, transfused 1 unit , hb came up to 9.1 * Follow CBC Metabolic # Acute kidney injury resolved * Continue to follow kidney functions * Appreciate nephro input # Hyponatremia * Continue to follow sodium level * Appreciate nephro input # Hyperkalemia * Continue to monitor Psych # Depression # Hx of drug abuse * On the W-10 and the discharge instructions, please ask the receiving facility/ ECF to call and make an intake appointment at [facility], [address] [place] [address] when her discharge date is known, . * Cannot go home with proline, must go to rehab # Agitation * IV benadryl PRN Endocrine # Diabetes mellitus * Novolog tidac/qhs * Levemir 60 bid ON HOLD,consider restarting at lower dose * Watch blood sugar closely * Consider endo consult Alimentary * On tube feeds Skin # Decubitus ulcer * Wound consult with Dr. English appreciated * Consulted surgery, necrotic patch excised at bedside, no deep tracking or necrosis or fasciitis noted * Consider rectal tube placement Diet: tube feeds DVT ppx: alps and heparin FC Consults: ID, surgery, renal, psych, ortho, PT, wound, nutrition Labs: BEP mag phos for electrolytes, CBC for anemia Problem List: 1. S/P gastrectomy Pain Ratin Pain Location: diffuse abdomen Pain Goal: Pain 7 or less Pain Plan: dilaudid Tomorrow's Labs & Rationales: BEP mag phos for electrolytes, CBC for anemia DVT/Prophylaxis: mechanical, pharmacological
[2016-08-20 08:00] VITALS: BP 116/64
--- NOTE | 2016-08-20 10:23 | PN- Pulmonary ---
Subjective HPI/Critical Care Issues: pt seen and examined doing well pain controlled npo per surgery no other events Objective Current Medications: Current Medications Sig/Shahla Start time Last Medication Dose Route Stop Time Status Admin Acetaminophen 1,000 MG Q6P PRN 08/07 1630 AC 08/11 N/A 1 UNIT IV 2237 Albuterol Sulfate 3 ML BID 08/05 2200 AC 08/18 INH 0817 Albuterol Sulfate 2 PUF Q4P PRN 07/30 2200 AC 08/07 INH 0914 Benzocaine/Menthol 1 RAYMUNDO Q2P PRN 08/11 2245 AC PO Collagenase 1 DEMETRA DAILY 08/04 1000 AC 08/20 TOP 0957 Diclofenac Sodium 1 DEMETRA TID PRN 07/30 1145 AC 08/05 TOP 2142 Diphenhydramine HCl 50 MG .STK-MED ONE 08/19 2331 DC IM 08/19 2332 Diphenhydramine HCl 50 MG .STK-MED ONE 08/19 1752 DC IM 08/19 1753 Diphenhydramine HCl 50 MG .STK-MED ONE 08/19 1025 DC IM 08/19 1026 Diphenhydramine HCl 50 MG Q6P PRN 08/07 1630 AC 08/20 IV 0542 Fluconazole 400 MG DAILY 08/15 1000 AC 08/20 Sodium Chloride 200 ML IV 0957 Heparin Sodium 5,000 UNIT Q8 08/12 0600 AC 08/20 (Porcine) SC 0535 Hydromorphone HCl 0.6 MG Q4-PRN PRN 08/15 1045 AC 08/20 IV 0625 Insulin Human Regular 0 Q6 08/10 1800 AC 08/20 SC 0532 Lidocaine 20 ML .STK-MED ONE 08/19 1126 DC IA 08/19 1127 Lidocaine 1 PAT DAILY 07/28 1800 AC 07/28 EXT 2003 Lorazepam 0.5 MG ONCE ONE 08/20 0015 DC 08/20 IV 08/20 0016 0015 Magnesium Sulfate 1 GM Q2H 08/20 0715 AC 08/20 Dextrose/Water 100 ML IV 08/20 1114 0921 Magnesium Sulfate 1 GM Q2H 08/19 0800 DC 08/19 Dextrose/Water 100 ML IV 08/19 1159 1254 Meropenem 1 GM IQ8 08/13 1600 AC 08/20 IV 0811 Miconazole Nitrate 1 DEMETRA AT BEDTIME 03/14 0130 08/17 VAG 2234 Nystatin 1 DEMETRA TID PRN 08/12 0730 08/20 TOP 1001 Pantoprazole Sodium 40 MG DAILY 08/11 1802 08/20 IV 0957 Phenol 2 SPRAY Q2P PRN 08/18 0800 08/18 EXT 0834 Sucralfate 1 GM Q6 08/16 0830 08/20 PO 0536 Vital Signs & I&O Last 24 Hrs of Vitals and I&O: Vital Signs Date Time Temp Pulse Resp B/P Pulse O2 O2 Flow FiO2 Ox Delivery Rate 08/20 0925 96 Room Air 08/20 0000 97.2 107 20 96/60 93 Room Air 08/20 0000 93 Room Air 08/19 2054 96 Room Air Room Air 08/19 1600 98.0 88 20 110/70 96 Room Air 08/19 1245 95 Room Air Intake & Output 08/20 1600 08/20 0800 08/20 0000 Intake Total 565 790 Output Total 350 270 Balance 215 520 Intake, IV 0 0 Intake, Oral 30 30 Intake, Tube 425 515 Feeding Intake, Tube 110 245 Irrigant Number 1 0 Bowel Movements Output, 0 70 Drainage Output, 350 200 Gastric Drainage Exam Other Physical Findings: gen alert and awake heent ngt cvs s1, s2 lungs clear anterior chest proline in place abd distended, tenderness ext trace edema Results Last 24 Hrs of Lab Results: Laboratory Tests 08/20/16 0435: Anion Gap 8, Estimated GFR > 60, BUN/Creatinine Ratio 26.0 H, Phosphorus 2.5, Magnesium 1.7, CBC w Diff NO MAN DIFF REQ, RBC 3.14 L, MCV 85.5, MCH 27.0, RDW 18.8 H, MPV 7.3 L, Gran % 73.1, Lymphocytes % 10.6 L, Monocytes % 3.9, Eosinophils % 11.3 H, Basophils % 1.1, Absolute Granulocytes 6.4, Absolute Lymphocytes 0.9 L, Absolute Monocytes 0.3, Absolute Eosinophils 1.0, Absolute Basophils 0.1, PUBS MCHC 31.6 L Impression/Plan Impression/Plan Impression/Plan: Impression 41 year old woman - hx of multiple collections/pus, MSSA, s/p partial gastrectomy - resolved BROOKLYNN - anemia improved Plan - ID follow up, on meropenem and fluconazole - s/p transfusion with great response - surgical follow up, still NPO, alimentary status per surgery - pain control - monitor coags, cbc - DVT prophylaxis at all times GM hold
--- NOTE | 2016-08-20 10:40 | NUR ---
Physical Therapy - Pt refusing PT today, not feeling well and unwilling to reconsider despite encouargement and education re: importance of mobility. Reviewed supine therex and patient agrees to perform as able. Will f/u as appropriate.
--- NOTE | 2016-08-20 10:43 | PN- Infect Dx ---
Subjective Subjective: Afebrile. She continues to complain of a dry mouth along with other complaints. Objective Last 24 Hrs of Vital Signs/I&O Vital Signs Date Time Temp Pulse Resp B/P Pulse O2 O2 Flow FiO2 Ox Delivery Rate 08/20 924 96 Room Air 08/20 0000 97.2 107 20 96/60 93 Room Air 08/20 0000 93 Room Air 08/19 2054 96 Room Air Room Air 08/19 1600 98.0 88 20 110/70 96 Room Air 08/19 1245 95 Room Air Intake & Output 08/20 1600 08/20 0800 08/20 0000 Intake Total 565 790 Output Total 350 270 Balance 215 520 Intake, IV 0 0 Intake, Oral 30 30 Intake, Tube 425 515 Feeding Intake, Tube 110 245 Irrigant Number 1 0 Bowel Movements Output, 0 70 Drainage Output, 350 200 Gastric Drainage Physical Exam Other Physical Findings: She appears comfortable, overall improved, in no acute distress HEENT NG tube remains in place, with 350 mL output overnight Neck Pro-Line in the left upper chest with no inflammation at the site Lungs are clear Heart regular rhythm with no murmur Abdomen soft, tender on minimal palpation, with positive bowel sounds; BLANCA drain with mucopurulent drainage, with 210 mL output yesterday Extremities 1+ edema all extremities Results Last 24 Hours of Lab Results: Laboratory Tests 08/20 043 Chemistry Sodium (137 - 145 mmol/L) 145 Potassium (3.5 - 5.1 mmol/L) 4.0 Chloride (98 - 107 mmol/L) 110 H Carbon Dioxide (22 - 30 mmol/L) 27 Anion Gap (5 - 16) 8 BUN (7 - 17 mg/dL) 13 Creatinine (0.5 - 1.0 mg/dL) 0.5 Estimated GFR (>60 ml/min) > 60 BUN/Creatinine Ratio (7 - 25 %) 26.0 H Phosphorus (2.5 - 4.5 mg/dL) 2.5 Magnesium (1.6 - 2.3 mg/dL) 1.7 Hematology CBC w Diff NO MAN DIFF REQ WBC (4.8 - 10.8 /CUMM) 8.8 RBC (4.20 - 5.40 /CUMM) 3.14 L Hgb (12.0 - 16.0 G/DL) 8.5 L Hct (37 - 47 %) 26.8 L MCV (81.0 - 99.0 FL) 85.5 MCH (27.0 - 31.0 PG) 27.0 RDW (11.5 - 14.5 %) 18.8 H Plt Count (130 - 400 /CUMM) 212 MPV (7.4 - 10.4 FL) 7.3 L Gran % (42.2 - 75.2 %) 73.1 Lymphocytes % (20.5 - 51.1 %) 10.6 L Monocytes % (1.7 - 9.3 %) 3.9 Eosinophils % (0 - 5 %) 11.3 H Basophils % (0.0 - 2.0 %) 1.1 Absolute Granulocytes (1.4 - 6.5 /CUMM) 6.4 Absolute Lymphocytes (1.2 - 3.4 /CUMM) 0.9 L Absolute Monocytes (0.10 - 0.60 /CUMM) 0.3 Absolute Eosinophils (0.0 - 0.7 /CUMM) 1.0 Absolute Basophils (0.0 - 0.2 /CUMM) 0.1 PUBS MCHC (33.0 - 37.0 G/DL) 31.6 L Last 24 Hours of Haris Results: No recent cultures Assessment/Plan Impression: Stable with temperatures and white blood cell count remaining normal on Meropenem and Fluconazole for polymicrobial peritonitis/sepsis secondary to Enterobacter, Prevotella and yeast now 8 days status post exploratory laparotomy and partial gastrectomy for a gangrenous stomach with perforation. The appearance of the drainage from her BLANCA drain is of some concern and further evaluation, with a contrast study, may ultimately be required. She will also require reimaging of the pelvis to assess the pelvic abscess, felt to be secondary to osteomyelitis of the right inferior pubic ramus, with the drainage catheter that had been placed 19 days ago removed several days ago. Suggestion: 1. Further evaluation regarding her BLANCA drainage, eg. a contrast study, per Surgery 2. Will need a repeat CT of the abdomen and pelvis with oral and IV contrast at some point 3. Continue Meropenem and Fluconazole
--- NOTE | 2016-08-20 13:33 | NUR ---
PHYSICAL THERAPY. Pt ADAMENTLY REFUSING PT TREATMENT 2/2 PAIN AND GENERALIZED MALAISE DESPITE ENCOURAGEMENT. DECREASING Pt'S FREQUENCY TO 2-3X/WEEK 2/2 FREQUENT REFUSALS AND LIMITED ABILITY TO PARTICIPATE IN SKILLED PT. Pt OBSERVED ACTIVELY MOVING EXTREMITIES IN BED, ENCOURAGED AROM T/O DAY. CONSIDER HOYERING Pt OOB TOLERATED FOR POSITION CHANGE.
[2016-08-20 16:00] VITALS: BP 115/62
--- NOTE | 2016-08-20 22:44 | NUR ---
PT A/OX3.ANXIOUS AT TIMES AND EMOTIONAL SUPPORT PROVIDED.C/O INCISIONAL DISCOMFORT AND PAIN MGT CONT WITH DILAUDID. LCTA AND ON RA.+PP.GEN EDEMA.NPO AND ORAL CARE DONE.TF CONT VIA JTUBE.NGT PATENT.INCONTINENT OF URINE AND PERINEAL CARE DONE.DSG TO BUTTOCKS INTACT.PLAN OF CARE REVIEWED
[2016-08-21] VITALS: BP 110/70
--- NOTE | 2016-08-21 01:05 | NUR ---
PT ALERT AND ORIENTED. MEDICATED WITH DILAUDID 0.6 MG IV FOR C/O PAIN, 10/25. LUNGS SOUND CLEAR. ABDOMEN SOFT, HYPOACTIVE BS. TOLERATING TF OF FS GLUCERNA 1.2 AT 30 ML/H, WATER FLUSHES ORDERED. MEREPENEM GIVEN.
[2016-08-21 04:28] LABS: ABSOLUTE BASOPHIL COUNT 0.1 /CUMM (0.0-0.2); ABSOLUTE GRANULOCYTE CT 6.6 /CUMM (1.4-6.5); ABSOLUTE LYMPH COUNT 1.1 /CUMM (1.2-3.4); ABSOLUTE MONOCYTE COUNT 0.3 /CUMM (0.10-0.60); BASOPHIL % 1.3 % (0.0-2.0); EOSINOPHIL % 10.5 % (0-5); GRANULOCYTE % 72.7 % (42.2-75.2); HEMATOCRIT 26.6 % (37-47); MEAN CORPUSCULAR HGB 27.6 PG (27.0-31.0); MEAN CORPUSCULAR HGB CONC 32.3 G/DL (33.0-37.0); MEAN CORPUSCULAR VOLUME 85.3 FL (81.0-99.0); MEAN PLATELET VOLUME 7.4 FL (7.4-10.4); PLATELET COUNT 237 /CUMM (130-400); RBC DISTRIBUTION WIDTH 20.3 % (11.5-14.5); RED BLOOD CELL CT 3.12 /CUMM (4.20-5.40); WHITE BLOOD CELL COUNT 9.1 /CUMM (4.8-10.8)
--- NOTE | 2016-08-21 06:35 | PN- General Surgery ---
Subjective Subjective: no major changes overnight awake alert deneis cp, sob, tolerating tube feeds no new abdominal sxs/pain Objective Vital Signs and I&Os Vital Signs Date Time Temp Pulse Resp B/P Pulse O2 O2 Flow FiO2 Ox Delivery Rate 08/21 99.0 100 22 110/70 Room Air 08/21 0000 96 Room Air 08/20 2145 96 Room Air Room Air 08/20 1600 95 Room Air 08/20 1600 97.8 112 18 115/62 95 Room Air 08/20 1047 Nasal 5.0L Cannula 08/20 09 96 Room Air 08/20 08 94 Room Air 08/20 08 97.6 112 20 116/64 94 Room Air Intake & Output 08/21 0808/21 0000 08/20 1600 08/20 0808/20 0000 08/19 1600 Intake Total 500 480 840 565 790 645 Output Total 240 0 340 350 270 270 Balance 260 480 500 215 520 375 Intake, IV 490 0 0 Intake, Oral 0 30 30 Intake, Other 0 Intake, Tube 300 240 230 425 515 395 Feeding Intake, Tube 200 240 120 110 245 250 Irrigant Number 2 1 0 2 Bowel Movements Output, 40 0 140 0 70 120 Drainage Output, 200 200 350 200 150 Gastric Drainage Physical Exam: abd wound c/d/i ileostomy tube in place diffuse abdominal pain(unchanged) ryan drainge(seropurulent)- 40cc overnight ngt-200cc overnight brown Assessment/Plan Assessment/Plan -Continue IV abx and diflucan as per ID. -DVT prophylaxsis with heparin sq -Pain medication as needed (keep to minimum) -Carafate and protonix for GI ppx. -Consider mobilization or bed exercises. -Medical management per primary team. -Will d/w attending.
--- NOTE | 2016-08-21 07:06 | PN- Housestaff ---
Subjective Follow-up For: sp gastrectomy Subjective: Pt seen today, appears more comfortable than usual. I would like to taper her dilaudid but she refuses, saying that the pain comes back at the 4 hour tony and she insists that she does not withdraw from opiates. She understands that she cannot get dilaudid outside the hospital. When asked about the pain in her abdomen, she said "my stomach has been fine, I am due for my pain meds soon". She frequently calls the nurses in to wet her mouth. Her bP has been stable 96-116/60-70. Mag 1.7 to 1.8 with 2gm mag sulfate. Tube feed was changed and so far tolerating well. Review of Systems Constitutional: Reports: see HPI. Objective Last 24 Hrs of Vital Signs/I&O Vital Signs Date Time Temp Pulse Resp B/P Pulse O2 O2 Flow FiO2 Ox Delivery Rate 08/21 0000 99.0 100 22 110/70 Room Air 08/21 0000 96 Room Air 08/20 2145 96 Room Air Room Air 08/20 1600 95 Room Air 08/20 1600 97.8 112 18 115/62 95 Room Air 08/20 1047 Nasal 5.0L Cannula 08/20 0925 96 Room Air Intake & Output 08/21 1600 / 0800 08/21 0000 Intake Total 500 480 Output Total 240 0 Balance 260 480 Intake, Tube 300 240 Feeding Intake, Tube 200 240 Irrigant Output, 40 0 Drainage Output, 200 Gastric Drainage Physical Exam General Appearance: Alert, Oriented X3, Cooperative, No Acute Distress Cardiovascular: Normal S1, Normal S2, tachycardic Lungs: Clear to Auscultation, Normal Air Movement Abdomen: Soft, tender, hypoactive bowel sound Extremities: + pitting edema Current Medications: Current Medications Sig/Shahla Start time Last Medication Dose Route Stop Time Status Admin Acetaminophen 1,000 MG Q6P PRN 08/07 1630 AC 08/11 N/A 1 UNIT IV 223 Albuterol Sulfate 3 ML BID 08/05 2199 AC 08/20 INH 2143 Albuterol Sulfate 2 PUF Q4P PRN 07/30 2199 AC 08/07 INH 0914 Benzocaine/Menthol 1 RAYMUNDO Q2P PRN 08/11 2245 AC PO Collagenase 1 DEMETRA DAILY 08/04 1000 AC 08/20 TOP 0957 Diclofenac Sodium 1 DEMETRA TID PRN 07/30 1145 AC 08/05 TOP 2142 Diphenhydramine HCl 50 MG .STK-MED ONE 08/21 0025 DC IM 08/21 0026 Diphenhydramine HCl 50 MG .STK-MED ONE 08/20 1818 DC IM 08/20 1819 Diphenhydramine HCl 50 MG .STK-MED ONE 08/20 1226 DC IM 08/20 1227 Diphenhydramine HCl 50 MG Q6P PRN 08/07 1630 AC 08/21 IV 0031 Fluconazole 400 MG DAILY 08/15 1000 AC 08/20 Sodium Chloride 200 ML IV 0957 Heparin Sodium 5,000 UNIT Q8 08/12 0600 AC 08/21 (Porcine) SC 0550 Hydromorphone HCl 0.6 MG Q4-PRN PRN 08/15 1045 AC 08/21 IV 0832 Insulin Human Regular 0 Q6 08/10 1800 AC 08/21 SC 0551 Lidocaine 1 PAT DAILY 07/28 1800 AC 07/28 EXT 2004 Magnesium Sulfate 1 GM Q2H 08/21 0730 AC 08/21 Dextrose/Water 100 ML IV 08/21 1129 0827 Magnesium Sulfate 1 GM Q2H 08/20 0715 WV 08/20 Dextrose/Water 100 ML IV 08/20 1114 0921 Meropenem 1 GM IQ8 08/13 1600 AC 08/20 IV 2334 Miconazole Nitrate 1 DEMETRA AT BEDTIME 07/29 0130 AC 08/17 VAG 2234 Nystatin 1 DEMETRA TID PRN 08/12 0730 08/20 TOP 1001 Pantoprazole Sodium 40 MG DAILY 08/11 1802 08/20 IV 0957 Phenol 2 SPRAY Q2P PRN 08/18 0800 AC 08/18 EXT 0834 Sucralfate 1 GM Q6 08/16 0830 08/21 PO 0549 Last 24 Hrs of Lab/Haris Results Last 24 Hrs of Labs/Mics: Laboratory Tests 08/21/16 0400: Anion Gap 6, Estimated GFR > 60, BUN/Creatinine Ratio 28.0 H, Phosphorus 3.4, Magnesium 1.8, CBC w Diff NO MAN DIFF REQ, RBC 3.12 L, MCV 85.3, MCH 27.6, RDW 20.3 H, MPV 7.4, Gran % 72.7, Lymphocytes % 11.8 L, Monocytes % 3.7, Eosinophils % 10.5 H, Basophils % 1.3, Absolute Granulocytes 6.6 H, Absolute Lymphocytes 1.1 L, Absolute Monocytes 0.3, Absolute Eosinophils 1.0, Absolute Basophils 0.1, PUBS MCHC 32.3 L Assessment/Plan Assessment: 40-year-old lady with a PMH of diabetes, previous right-sided hemorrhagic pleural effusion S/P Pleurx catheter, lytic therapy 2, previous MSSA sepsis likely secondary to pro-line catheter, previous necrotizing fasciitis of the perineum, left pararenal abscess, osteomyelitis of pubic bone, polysubstance abuse, depression, opiate dependence who presented with complaints of right-sided hip pain, admitted to , found to have pelvic abscess, that was drained by Dr. Sam on 08/01/16. Post procedure, she was hypotensive and was transferred to ICU. She received levophed for 1 day, subsequently her BP was stable and pt was transferred back to . The pt was again hypotensive, and lethargic, and was transferred to ICU. She again was on levophed for a couple of days with BP stable without pressors, and was transferred back to . For the third time, she was again hypotensive requiring another ICU transfer. It has been noted that her BP drops when she receives dilaudid. She was placed on levophed for blood pressure support. The CT findings was concerning for acute abdomen due to perforation vs ileus vs obstruction (tiny amount of free air similar to prior imaging, gastric pneumatosis, ?perforation gastric ulcer, diffusely tender abdomen, no bowel sounds heard, large amount of NG tube output bright yellow --> muddy green --> brown). Her lactic acid elevated up to 2.7, with poor UO. With IVF, her UO improved. There was fluid collection in the left pelvis, that was drained by Dr. Dunaway and put out cloudy yellow --> brown fluid collection in the pelvis (similar in color and consistency to NG tube fluid), most likely representing infected ascitic fluid, consistent with peritonitis. We were concerned for perforation in the stomach due to image findings of gastric pneumatosis. Gastrograffin studies done and showed leakage of contrast out of the stomach. Pt was taken to OR on 08/12/[address] Trammell for exploratory laparotomy with partial gastrectomy for gangrenous stomach and J tube insertion. There was no perforation found, but seeping of fluid through the gangrenous wall into the peritoneal space is entirely possible causing peritonitis. The etiology of the the gangrene is unknown, could be cocaine? vasopressors? hypotension? She was started on tube feeds and have been tolerating it well, except she constantly complains of dry mouth because she is not allowed to take anything PO (although she did admit to drinking icetea and have been seen drinking icechips) . Her other issues this admission include right pelvis infection (sp IR drainage on 08/01/16 followed by first hypotensive episode requiring ICU monitoring), right upper extremity swelling (due to intentional fall) that has now improved, with ortho following. She also developed BROOKLYNN most likely multifactorial in nature (BUN/Cr up to 66/2.9) prerenal and ATN - insults including hypotension, contrast, vancomycin, with nephrology following, and kidney functions improved. Lines: BLANCA drain d10 J tube d10 Proline (08/07/16) NG tube (08/10/16) Right pelvis catheter (08/01/16 - 08/17/16) Left pelvis catheter (08/11/16 - 08/17/16) Restrains UE discontinued after 3 days Extubated after 3 days A line removed after 4 days Orta (removed) Respiratory * Intubated 08/12 - 08/14 Cardiovascular # Hypotension * Off levophed 08/14 645AM * IVF discontinued 08/14, consider diuresis for anasarca ID # Pelvic abscess sp IR drainage (right 08/01 and left 08/11, catheters removed 08/17) # Peritonitis due to gangrenous stomach (due to ischemia..cocaine? gastroparesis ? pressors?) - 08/11: [place] [address], VRE, enterobacter, yeast, lactobacillus. * Oxacillin started to cover MSSA on 08/01, discontinued on 08/10/16. Zosyn started on 08/10/16 to cover pseudomonas. Fluconazole 400 IV q8 started on 08/12 for yeast in ascitic fluid, changed to daily when kidney functions improved. Zosyn discontinued and meropenem started on 08/13. * Plan for repeat CT pelvis prior to discharge * dilaudid 0.6 q4 p . cannot start lyrica as meds cannot be given through ng tube # S/P partial gastrectomy for gangrenous stomach, with J tube * Tube feeding as per surgery and nutrition * Continue IV protonix , sucralfate * Appreciate surgery input * NG tube low wall suction. NOTHING THROUGH NG TUBE other than sucralfate (but pt noncompliant) * Chloroseptic spray for throat pain * Consider repeat CT gastrograffin study to evaluate for leakage (most likely next week) * PO meds have been discontinued including lyrica, lexapro, haldol, na bicarb, senna, docusate, tylenol, simethicone. These meds would need to be reordered once pt can eat. # Necrotic decubitus ulcer - Excised at bedside 08/10 - Not likely to be source of infection # Right shoulder pain with decreased passive and active ROM (improving) # Right elbow swelling (improving) - Xray and US obtained * Refuses MRI unless done under anesthesia * Appreciate Ortho (Dr. Schulz) input # The scalp lesion popped 08/02 PM, with purulent drainage noted - Alopecia noted Heme # Anemia - 08/12/16: received 1 PRBC - 08/18/16: Hb down to 7.3, transfused 1 unit , hb came up to 9.1 * Follow CBC Metabolic # Acute kidney injury resolved * Continue to follow kidney functions * Appreciate nephro input # Hyponatremia * Continue to follow sodium level * Appreciate nephro input # Hyperkalemia * Continue to monitor Psych # Depression # Hx of drug abuse * On the W-10 and the discharge instructions, please ask the receiving facility/ ECF to call and make an intake appointment at [facility], [address] [place] [address] when her discharge date is known, . * Cannot go home with proline, must go to rehab # Agitation * IV benadryl PRN Endocrine # Diabetes mellitus * Novolog tidac/qhs * Levemir 60 bid ON HOLD,consider restarting at lower dose * Watch blood sugar closely * Consider endo consult Alimentary * On tube feeds Skin # Decubitus ulcer * Wound consult with Dr. English appreciated * Consulted surgery, necrotic patch excised at bedside, no deep tracking or necrosis or fasciitis noted * Consider rectal tube placement Diet: tube feeds DVT ppx: alps and heparin FC Consults: ID, surgery, renal, psych, ortho, PT, wound, nutrition Labs: BEP mag phos for electrolytes, CBC for anemia Problem List: 1. S/P gastrectomy Pain Ratin Pain Location: abdomen Pain Goal: Pain 4 or less Pain Plan: dilaudid Tomorrow's Labs & Rationales: bep mag phos for electrolyte repletion cbc for anemia DVT/Prophylaxis: mechanical, pharmacological
[2016-08-21 08:00] VITALS: BP 112/60
--- NOTE | 2016-08-21 11:30 | PN- Pulmonary ---
Subjective HPI/Critical Care Issues: pt seen and examined pain is somewhat controlled with dialudid recommended tylenol and pt willing to try in addition to dilaudid no other events afebrile no leukocytosis Objective Current Medications: Current Medications Sig/Shahla Start time Last Medication Dose Route Stop Time Status Admin Acetaminophen 1,000 MG Q6P PRN 08/07 1630 AC 08/21 N/A 1 UNIT IV 1127 Albuterol Sulfate 3 ML BID 08/05 2200 AC 08/20 INH 2143 Albuterol Sulfate 2 PUF Q4P PRN 07/30 2200 AC 08/07 INH 0914 Benzocaine/Menthol 1 RAYMUNDO Q2P PRN 08/11 2245 AC PO Collagenase 1 DEMETRA DAILY 08/04 1000 AC 08/21 TOP 1033 Diclofenac Sodium 1 DEMETRA TID PRN 07/30 1145 AC 08/05 TOP 2142 Diphenhydramine HCl 50 MG .STK-MED ONE 08/21 0025 DC IM 08/21 0026 Diphenhydramine HCl 50 MG .STK-MED ONE 08/20 1818 DC IM 08/20 1819 Diphenhydramine HCl 50 MG .STK-MED ONE 08/20 1226 DC IM 08/20 1227 Diphenhydramine HCl 50 MG Q6P PRN 08/07 1630 AC 08/21 IV 0920 Fluconazole 400 MG DAILY 08/15 1000 AC 08/21 Sodium Chloride 200 ML IV 1033 Heparin Sodium 5,000 UNIT Q8 08/12 0600 AC 08/21 (Porcine) SC 0550 Hydromorphone HCl 0.6 MG Q4-PRN PRN 08/15 1045 AC 08/21 IV 0832 Insulin Human Regular 0 Q6 08/10 1800 AC 08/21 SC 0551 Lidocaine 1 PAT DAILY 07/28 1800 AC 07/28 EXT 2004 Magnesium Sulfate 1 GM Q2H 08/21 0730 DC 08/21 Dextrose/Water 100 ML IV 08/21 1129 1049 Meropenem 1 GM IQ8 08/13 1600 AC 08/21 IV 1032 Miconazole Nitrate 1 DEMETRA AT BEDTIME 07/29 0130 AC 08/17 VAG 2234 Nystatin 1 DEMETRA TID PRN 08/12 0730 AC 08/20 TOP 1001 Pantoprazole Sodium 40 MG DAILY 08/11 1802 AC 08/21 IV 0920 Phenol 2 SPRAY Q2P PRN 08/18 0800 AC 08/18 EXT 0834 Pregabalin 25 MG TID 08/21 1045 CAN PO Pregabalin 150 MG BID 08/21 1045 CAN PO Sucralfate 1 GM Q6 08/16 08 AC 08/21 PO 0549 Vital Signs & I&O Last 24 Hrs of Vitals and I&O: Vital Signs Date Time Temp Pulse Resp B/P Pulse O2 O2 Flow FiO2 Ox Delivery Rate 08/21 0856 96 Room Air 08/21 0800 99.1 70 18 112/60 95 Room Air 08/21 0000 99.0 100 22 110/70 Room Air 08/21 0000 96 Room Air 08/20 2145 96 Room Air Room Air 08/20 1600 95 Room Air 08/20 1600 97.8 112 18 115/62 95 Room Air Intake & Output 08/21 1600 08/21 0800 04 0000 Intake Total 500 480 Output Total 120 240 0 Balance -120 260 480 Intake, Tube 300 240 Feeding Intake, Tube 200 240 Irrigant Output, 120 40 0 Drainage Output, 200 Gastric Drainage Exam Other Physical Findings: gen alert and awake heent ngt cvs s1, s2 lungs clear anterior chest proline in place abd distended, tenderness ext trace edema Results Last 24 Hrs of Lab Results: Laboratory Tests 08/21/16 0400: Anion Gap 6, Estimated GFR > 60, BUN/Creatinine Ratio 28.0 H, Phosphorus 3.4, Magnesium 1.8, CBC w Diff NO MAN DIFF REQ, RBC 3.12 L, MCV 85.3, MCH 27.6, RDW 20.3 H, MPV 7.4, Gran % 72.7, Lymphocytes % 11.8 L, Monocytes % 3.7, Eosinophils % 10.5 H, Basophils % 1.3, Absolute Granulocytes 6.6 H, Absolute Lymphocytes 1.1 L, Absolute Monocytes 0.3, Absolute Eosinophils 1.0, Absolute Basophils 0.1, PUBS MCHC 32.3 L Impression/Plan Impression/Plan Impression/Plan: Impression 41 year old woman - hx of multiple collections/pus, MSSA, s/p partial gastrectomy - resolved BROOKLYNN - anemia improved Plan - ID follow up, on meropenem and fluconazole - s/p transfusion with great response - surgical follow up, still NPO, alimentary status per surgery - pain control - will continue dilaudid and tylenol to regimen - monitor coags, cbc - DVT prophylaxis at all times GM hold
--- NOTE | 2016-08-21 14:14 | NUR ---
PHYSICAL THERAPY: ATTEMPTED TO SEE PATIENT THIS P.M. PATIENT REFUSING P.T. STATING "I AM VERY SICK TOO, I DO NOT FEEL GOOD." OFFERED ENCOURAGEMENT AND EDUCATION REGARDING BENEFITS OF OOB AND EXERICSE, PATIENT CONTINUES TO REFUSE, STATING "MAYBE TOMORROW." PATIENT HAS REFUSED P.T. MULTIPLE TIMES THIS WEEK, MD WAS MADE AWARE OF SITUATION. WILL F/U TOMORROW.
[2016-08-21 16:00] VITALS: BP 112/60
--- NOTE | 2016-08-21 16:28 | Patient Discharge Instructions ---
Discharge Instructions General Discharge Information You were seen/treated for: sepsis 2/2 to necrosis of stomach s/p partial gastrectomy. Special Instructions: please follow up with your PCP upon dishcarge. Please follow up with your surgeon upon discharge. Acute Coronary Syndrome Inclusion Criteria At DC or during hospital stay patient has or had the following: ACS DIAGNOSIS No Discharge Core Measures Meds if any: Prescribed or Continued at Discharge Meds if any: NOT Prescribed or Continued at Discharge Congestive Heart Failure Inclusion Criteria At DC or during hospital stay patient has or had the following: CHF DIAGNOSIS No Discharge Core Measures Meds if any: Prescribed or Continued at Discharge Meds if any: NOT Prescribed or Continued at Discharge Cerebrovascular accident Inclusion Criteria At DC or during hospital stay patient has or had the following: CVA/TIA Diagnosis No Discharge Core Measures Meds if any: Prescribed or Continued at Discharge Meds if any: NOT Prescribed or Continued at Discharge Venous thromboembolism Inclusion Criteria VTE Diagnosis No VTE Type NONE VTE Confirmed by (Test) NONE Discharge Core Measures - Per Current guidelines, there needs to be overlap - treatment for the first 5 days of Warfarin therapy. - If discharged on Warfarin prior to 5 days of - overlap therapy, the patient will need to be - assessed for post discharge needs including - *Post discharge parental anticoagulation - *Warfarin and/or parental anticoagulation education - *Follow up date to check INR post discharge At least 5 days overlap therapy as Inpatient No Meds if any: Prescribed or Continued at Discharge Note: Overlap Therapy is Warfarin and Anticoagulant Meds if any: NOT Prescribed or Continued at Discharge
[2016-08-21 22:00] VITALS: BP 96/56
[2016-08-21 22:50] VITALS: BP 106/54
--- NOTE | 2016-08-22 00:38 | NUR ---
LATE ENTRY 08/21/16: PT ARRIVED TO FLOOR AT [facility]. 2245. A&O X 3, J TUBE WITH TUBE FEED TO GRAVITY. 10CC RESIDUAL OBTAINED. UNABLE TO FLUSH. MD LARA CALLED AND RECOMMENDED CALLING SURGERY. SURGERY CONSULTED, ADVISED TO CONTINUE FLUSHING ATTEMPTS WITH WARM WATER WITH GOOD EFFECT BRIEFLY. PUMP CONTINUED TO ALARM, NEW PUMP ATTEMPTED WITH NO EFFECT. ROLL REPAIRER AWARE. RECIEVING NURSE AWARE AND CONTINUES FLUSHING AND TROUBLESHOOTING WHILE WAITING FOR NEW PUMP. NGT IN L NARES TO LWS, BLANCA DRAIN TO GRAVITY. BED LOW, LOCKED, CALL HANSEN WITHIN REACH. MAINTAIN SAFETY PRECATIONS.
[2016-08-22 05:57] LABS: ABSOLUTE BASOPHIL COUNT 0.1 /CUMM (0.0-0.2); ABSOLUTE EOSINOPHIL COUNT 0.8 /CUMM (0.0-0.7); ABSOLUTE GRANULOCYTE CT 9.6 /CUMM (1.4-6.5); ABSOLUTE LYMPH COUNT 1.1 /CUMM (1.2-3.4); ABSOLUTE MONOCYTE COUNT 0.3 /CUMM (0.10-0.60); BASOPHIL % 0.7 % (0.0-2.0); EOSINOPHIL % 6.7 % (0-5); GRANULOCYTE % 80.9 % (42.2-75.2); HEMATOCRIT 27.1 % (37-47); MEAN CORPUSCULAR HGB 27.8 PG (27.0-31.0); MEAN CORPUSCULAR HGB CONC 32.7 G/DL (33.0-37.0); MEAN CORPUSCULAR VOLUME 85.1 FL (81.0-99.0); MEAN PLATELET VOLUME 7.4 FL (7.4-10.4); PLATELET COUNT 269 /CUMM (130-400); RBC DISTRIBUTION WIDTH 19.4 % (11.5-14.5); RED BLOOD CELL CT 3.18 /CUMM (4.20-5.40); WHITE BLOOD CELL COUNT 11.9 /CUMM (4.8-10.8)
[2016-08-22 06:45] VITALS: BP 100/60
--- NOTE | 2016-08-22 07:43 | NUR ---
NURSING NOTE: ASSUMED CARE OF PT. PT REFUSING FALL RISK RED WRISTBAND RED SOCKS AND BED ALARM. PT REFUSING ALPS. PT ALSO REFUSING SIZEWISE MATTRESS, RENAN JOINT SETTER MADE AWARE OF ABOVE. CONT TO MONITOR. PT AWARE TO CALL FOR ASSIST
--- NOTE | 2016-08-22 07:48 | Transfer of Care Summary ---
Hospital Course Course Hospital Course: 41-year-old lady with a PMH of diabetes, previous right-sided hemorrhagic pleural effusion S/P Pleurx catheter, lytic therapy 2, previous MSSA sepsis likely secondary to pro-line catheter, previous necrotizing fasciitis of the perineum, left pararenal abscess, osteomyelitis of pubic bone, polysubstance abuse, depression, opiate dependence who presented with complaints of right-sided hip pain, admitted to , found to have pelvic abscess, that was drained by Dr. Sam on 08/01/16 (removed 08/17/16). Post procedure, she was hypotensive and was transferred to ICU. She was started on oxacillin for MSSA found in the fluid drained. She received levophed for 1 day, subsequently her BP was stable and pt was transferred back to . The pt was again found hypotensive , apneic, and lethargic, and was transferred to ICU. She again was on levophed for a couple of days with BP subsequently stable without pressors, and was transferred back to . For the third time, she was again hypotensive requiring another ICU transfer. Abx was changed to zosyn then to meropenem. It has been noted that her BP drops when she receives dilaudid. She was placed on levophed for blood pressure support. The CT abd/pelvis findings was concerning for acute abdomen due to perforation vs ileus vs obstruction (tiny amount of free air similar to prior imaging, gastric pneumatosis, ?perforation gastric ulcer, diffusely tender abdomen, no bowel sounds heard, large amount of NG tube output bright yellow --> muddy green --> brown fluid). Her lactic acid elevated up to 2.7, with poor urine output. With IVF, her UO improved. There was fluid collection in the left pelvis, that was drained by Dr. Dunaway on 08/11/16 ( removed 08/17/16) put out cloudy yellow --> brown fluid collection in the pelvis ( similar in color and consistency to NG tube fluid), most likely representing infected ascitic fluid, consistent with peritonitis. The fluid grew VRE, enterobacter aerogenes, joce, and lactobacillus. Fluconazole added to her abx regimen. We were concerned for perforation in the stomach due to image findings of gastric pneumatosis. Gastrograffin studies done and showed leakage of contrast out of the stomach. Pt was taken to OR on 08/12/[address] Trammell for exploratory laparotomy with partial gastrectomy for gangrenous stomach and J tube insertion. There was no perforation found, but seeping of fluid through the gangrenous wall into the peritoneal space is entirely possible causing peritonitis. The etiology of the the gangrene is unknown, could be cocaine? vasopressors? hypotension? She was started on tube feeds and have been tolerating it well, except she constantly complains of dry mouth because she is not allowed to take anything PO (although she is not compliant with instructions to not drink). As per Dr. Castellanos, she is now allowed to have 1/4 of a cup a day. Currently, her BP has been stable for a week without pressors. Her urine output has been good with yao taken out and she is incontinent. Her abdominal pain has improved. She continues to refuse to work with PT due to pain. Her other issues this admission include right upper extremity swelling (due to intentional trauma) that has now improved, with ortho consulted. She also developed BROOKLYNN most likely multifactorial in nature (BUN/Cr up to 66/2.9) prerenal and ATN - insults including hypotension, contrast, vancomycin, with nephrology following, and kidney functions improved and nephrology consulted. Assessment/Plan: BLANCA drain d10 J tube d10 Proline (placed 08/07/16) NG tube (placed 08/10/16) Right pelvis catheter (placed 08/01/16 - removed 08/17/16) Left pelvis catheter (placed 08/11/16 - removed 08/17/16) Respiratory * Intubated 08/12 - 08/14 Cardiovascular # Hypotension * Off levophed 08/14 645AM * IVF discontinued 08/14, consider diuresis for anasarca ID # Pelvic abscess sp IR drainage (right 08/01 and left 08/11, catheters removed 08/17) # Peritonitis due to gangrenous stomach (due to ischemia..cocaine? gastroparesis ? pressors?) - 08/11: [place] [address], VRE, enterobacter, yeast, lactobacillus. * Oxacillin started to cover MSSA on 08/01 (after right pelvis drainage), discontinued on 08/10/16. Zosyn started on 08/10/16 to cover pseudomonas. Fluconazole 400 IV q8 started on 08/12 for yeast in ascitic fluid, changed to daily when kidney functions improved. Zosyn discontinued and meropenem started on 08/13. Currently on fluconazole and meropenem * Plan for repeat CT pelvis (with contrast) prior to discharge * dilaudid 0.6 q4 p . cannot start lyrica as meds cannot be given through ng tube # S/P partial gastrectomy for gangrenous stomach, with J tube * Tube feeding as per surgery and nutrition * Continue IV protonix , sucralfate * Appreciate surgery input * NG tube low wall suction. NOTHING THROUGH NG TUBE other than sucralfate and 1/ 4 cup of water/ice (but pt noncompliant) * Chloroseptic spray for throat pain * Consider repeat CT gastrograffin study to evaluate for leakage (most likely next week) * PO meds have been discontinued including lyrica, lexapro, haldol, na bicarb, senna, docusate, tylenol, simethicone. These meds would need to be reordered once pt can eat. # Necrotic decubitus ulcer - Excised at bedside 08/10 - Not likely to be source of infection # Right shoulder pain with decreased passive and active ROM (improving) # Right elbow swelling (improving) - Xray and US obtained * Refuses MRI unless done under anesthesia * Appreciate Ortho (Dr. Schulz) input # The scalp lesion popped 08/02 PM, with purulent drainage noted - Alopecia noted Heme # Anemia - 08/12/16: received 1 PRBC - 08/18/16: Hb down to 7.3, transfused 1 unit , hb came up to 9.1 * Follow CBC Metabolic # Acute kidney injury resolved * Continue to follow kidney functions * Appreciate nephro input # Hyponatremia * Continue to follow sodium level * Appreciate nephro input # Hyperkalemia * Continue to monitor Psych # Depression # Hx of drug abuse * On the W-10 and the discharge instructions, please ask the receiving facility/ ECF to call and make an intake appointment at [facility], [address] [place] [address] when her discharge date is known, . * Cannot go home with proline, must go to rehab # Agitation * IV benadryl PRN Endocrine # Diabetes mellitus * Accucheck & novolog ss * Levemir 60 bid ON HOLD,consider restarting at lower dose * Watch blood sugar closely Alimentary * On tube feeds Skin # Decubitus ulcer * Wound consult with Dr. English appreciated * Consulted surgery, necrotic patch excised at bedside, no deep tracking or necrosis or fasciitis noted * Consider rectal tube placement Diet: tube feeds DVT ppx: alps and heparin FC Consults: ID, surgery, renal, psych, ortho, PT, wound, nutrition Labs: BEP mag phos for electrolytes, CBC for anemia Attending MD Review Statement Documenting Attending: JERICHO RAMON MD
--- NOTE | 2016-08-22 08:20 | NUR ---
late entry: J-tube not flushing, surgical pA aware, advised to flush w/ soda. Tubing changed,flushing well. Dressing changed to bottom. Pt refusing size boyle, bed alarm, and alps. Desated at 0600 to 88% ra. placed on 2 l, pox-94% BLANCA drain put out 275 ml of drainage from 0000. Surigcal PA aware. NNO.
--- NOTE | 2016-08-22 08:48 | PN- Housestaff ---
HELLEN FARFAN,RENAN 08/22/16 0847: Subjective Follow-up For: -Status post partial gastrectomy for gangrenous stomach with perforation -Pelvic abscess Complaints: pain scale (0-10), pain scale 9/10 max, but well-managed Subjective: I followed up and examined the patient today. She is lying in her bed, in mild distress, due to pain. Her only complaint is intermittent pain that goes a max of 9/10 but is well managed with medications. Her BLANCA drain is filling up fast, with ....ml purulent colored in last 24 hr. Her NG tube is in place, 250ml in past 24hr drainage. J-tube in place, getting tube feeding without any problem. Review of Systems Constitutional: Reports: see HPI. Denies: chills, fever. Cardiovascular: Reports: no symptoms. Respiratory: Reports: no symptoms. Gastrointestinal: Reports: see HPI. Genitourinary: Reports: no symptoms. Musculoskeletal: Reports: no symptoms. Skin: Reports: see HPI, erythema (right forearm). Neurological/Psychological: Reports: no symptoms, anxiety. Objective Last 24 Hrs of Vital Signs/I&O Vital Signs Date Time Temp Pulse Resp B/P Pulse O2 O2 Flow FiO2 Ox Delivery Rate 08/22 1024 94 Room Air Room Air 08/22 0934 20 93 Room Air 08/22 0934 20 95 Nasal 2.0L Cannula 08/22 0645 98.8 113 20 100/60 93 Nasal 2.0L Cannula 08/22 0000 Room Air 08/21 2250 98.6 102 20 106/54 92 08/21 2220 Room Air Room Air 08/21 2200 98.5 106 20 96/56 92 Room Air 08/21 1600 95 Room Air 08/21 1600 97.8 88 20 112/60 95 Room Air Intake & Output 08/22 1600 08/22 0800 04/ 0000 Intake Total 745 180 Output Total 300 80 Balance 445 100 Intake, IV 60 Intake, Tube 525 Feeding Intake, Tube 220 120 Irrigant Output, 300 80 Drainage Output, 0 Gastric Drainage Physical Exam General Appearance: Alert, Oriented X3, Cooperative, Mild Distress, anxious Other Physical Findings: Physical examnination: General: obese patient, in mild distress, anxious Head: Normocephalic, atraumatic Eyes: Pupils normal in size, regular, reacting to light and accommodation, EOM normal Ears: B/l normal on inspection Nose: Normal on inspection Throat/mouth: Moist mucosa Neck: Supple, full range of motion, no thyromegaly Chest wall has Proline in situ Heart: Regular rate, regular rhythm Lung: Normal breath sound bilaterally Added sound not heard Abd: Soft, mod tenderness over surgical incision site in the mid-abdomen, incision site has red border s/o cellulitis but no pus draining currently, BLANCA drain has purulent drainage no distention appreciated Back: Normal range of motion Extremities: right forearm is red and swollen, tense, no open wound; b/l pedal edema, Distal neurovascular intact Neurologic: Alert, oriented x3, Cranial exam grossly intact, Speech is clear and coherent Skin: Warm and dry Current Medications: Current Medications Sig/Shahla Start time Last Medication Dose Route Stop Time Status Admin Acetaminophen 1,000 MG Q6P PRN 08/07 1630 AC 08/21 N/A 1 UNIT IV 1127 Albuterol Sulfate 3 ML BID 08/05 2200 AC 08/22 INH 1020 Albuterol Sulfate 2 PUF Q4P PRN 07/30 2200 AC 08/07 INH 0914 Benzocaine/Menthol 1 RAYMUNDO Q2P PRN 08/11 2245 AC PO Collagenase 1 DEMETRA DAILY 08/04 1000 AC 08/21 TOP 1033 Diclofenac Sodium 1 DEMETRA TID PRN 07/30 1145 AC 08/05 TOP 2142 Diphenhydramine HCl 50 MG .STK-MED ONE 08/22 0413 DC IM 08/22 0414 Diphenhydramine HCl 50 MG .STK-MED ONE 08/21 2206 DC IM 08/21 2207 Diphenhydramine HCl 50 MG .STK-MED ONE 08/21 2157 DC IM 08/21 2158 Diphenhydramine HCl 50 MG .STK-MED ONE 08/21 1524 DC IM 08/21 1525 Diphenhydramine HCl 50 MG Q6P PRN 08/07 1630 AC 08/22 IV 0924 Fluconazole 400 MG DAILY 08/15 1000 AC 08/22 Sodium Chloride 200 ML IV 0924 Heparin Sodium 5,000 UNIT Q8 08/12 0600 AC 08/22 (Porcine) SC 0527 Hydromorphone HCl 0.6 MG Q4-PRN PRN 08/15 1045 AC 08/22 IV 1158 Insulin Human Regular 10 UNITS .STK-MED ONE 08/22 0530 DC IV 08/22 0531 Insulin Human Regular 1 UNITS .STK-MED ONE 08/21 2347 DC IV 08/21 2348 Insulin Human Regular 0 Q6 08/10 1800 AC 08/22 SC 0534 Lidocaine 1 PAT DAILY 07/28 1800 AC 07/28 EXT 2004 Lorazepam 0.5 MG ONCE ONE 08/22 0200 DC 08/22 IV 08/22 0201 0220 Meropenem 1 GM IQ8 08/13 1600 AC 08/22 IV 0852 Miconazole Nitrate 1 DEMETRA AT BEDTIME 07/29 0130 AC 08/17 VAG 2234 Nystatin 1 DEMETRA TID PRN 08/12 0730 AC 08/20 TOP 1001 Pantoprazole Sodium 40 MG DAILY 08/11 1802 AC 08/22 IV 0852 Phenol 2 SPRAY Q2P PRN 08/18 0800 AC 08/18 EXT 0834 Sucralfate 1 GM Q6 08/16 0830 AC 08/22 PO 0527 Last 24 Hrs of Lab/Haris Results Last 24 Hrs of Labs/Mics: Laboratory Tests 08/22/16 0535: Anion Gap 4 L, Estimated GFR > 60, BUN/Creatinine Ratio 34.0 H, Phosphorus 3.9 , Magnesium 1.8, CBC w Diff NO MAN DIFF REQ, RBC 3.18 L, MCV 85.1, MCH 27.8, RDW 19.4 H, MPV 7.4, Gran % 80.9 H, Lymphocytes % 9.1 L, Monocytes % 2.6, Eosinophils % 6.7 H, Basophils % 0.7, Absolute Granulocytes 9.6 H, Absolute Lymphocytes 1.1 L, Absolute Monocytes 0.3, Absolute Eosinophils 0.8, Absolute Basophils 0.1, PUBS MCHC 32.7 L Assessment/Plan Assessment: 40-year-old lady with a PMH of diabetes, previous right-sided hemorrhagic pleural effusion S/P Pleurx catheter, lytic therapy 2, previous MSSA sepsis likely secondary to pro-line catheter, previous necrotizing fasciitis of the perineum, left pararenal abscess, osteomyelitis of pubic bone, polysubstance abuse, depression, opiate dependence who presented with complaints of right-sided hip pain, admitted to , found to have pelvic abscess, that was drained by Dr. Sam on 08/01/16. Post procedure, she was hypotensive and was transferred to ICU. She received levophed for 1 day, subsequently her BP was stable and pt was transferred back to . The pt was again hypotensive, and lethargic, and was transferred to ICU. She again was on levophed for a couple of days with BP stable without pressors, and was transferred back to . For the third time, she was again hypotensive requiring another ICU transfer. It has been noted that her BP drops when she receives dilaudid. She was placed on levophed for blood pressure support. The CT findings was concerning for acute abdomen due to perforation vs ileus vs obstruction (tiny amount of free air similar to prior imaging, gastric pneumatosis, ?perforation gastric ulcer, diffusely tender abdomen, no bowel sounds heard, large amount of NG tube output bright yellow --> muddy green --> brown). Her lactic acid elevated up to 2.7, with poor UO. With IVF, her UO improved. There was fluid collection in the left pelvis, that was drained by Dr. Dunaway and put out cloudy yellow --> brown fluid collection in the pelvis (similar in color and consistency to NG tube fluid), most likely representing infected ascitic fluid, consistent with peritonitis. We were concerned for perforation in the stomach due to image findings of gastric pneumatosis. Gastrograffin studies done and showed leakage of contrast out of the stomach. Pt was taken to OR on 08/12/[address] Trammell for exploratory laparotomy with partial gastrectomy for gangrenous stomach and J tube insertion. There was no perforation found, but seeping of fluid through the gangrenous wall into the peritoneal space is entirely possible causing peritonitis. The etiology of the the gangrene is unknown, could be cocaine? vasopressors? hypotension? She was started on tube feeds and have been tolerating it well, except she constantly complains of dry mouth because she is not allowed to take anything PO (although she did admit to drinking icetea and have been seen drinking icechips) . Her other issues this admission include right pelvis infection (sp IR drainage on 08/01/16 followed by first hypotensive episode requiring ICU monitoring), right upper extremity swelling (due to intentional fall) that has now improved, with ortho following. She also developed BROOKLYNN most likely multifactorial in nature (BUN/Cr up to 66/2.9) prerenal and ATN - insults including hypotension, contrast, vancomycin, with nephrology following, and kidney functions improved. Lines: BLANCA drain d11 J tube d11 Proline (08/07/16) NG tube (08/10/16) Right pelvis catheter (08/01/16 - 08/17/16) Left pelvis catheter (08/11/16 - 08/17/16) Restrains UE discontinued after 3 days Extubated after 3 days A line removed after 4 days Orta (removed) Respiratory * Intubated 08/12 - 08/14 after the surgery Cardiovascular # Hypotension * Off levophed 08/14 645AM * IVF discontinued 08/14, consider diuresis for anasarca * Blood pressure has been within normal limits, with a slight decrease earlier today at 100/60 at 7 AM ID # Pelvic abscess sp IR drainage (right 08/01 and left 08/11, catheters removed 08/17) # Peritonitis due to gangrenous stomach (due to ischemia..cocaine? gastroparesis ? pressors?) - 08/11: [place] [address], VRE, enterobacter, yeast, lactobacillus. * Oxacillin started to cover MSSA on 08/01, discontinued on 08/10/16. Zosyn started on 08/10/16 to cover pseudomonas. Fluconazole 400 IV q8 started on 08/12 for yeast in ascitic fluid, changed to daily when kidney functions improved. Zosyn discontinued and meropenem started on 08/13. * Plan for repeat CT pelvis prior to discharge * dilaudid 0.6 q4 p . cannot start lyrica as meds cannot be given through ng tube # S/P partial gastrectomy for gangrenous stomach, with J tube * Tube feeding as per surgery and nutrition * Continue IV protonix , sucralfate * Appreciate surgery input * NG tube low wall suction. GIVE NOTHING THROUGH NG TUBE other than sucralfate ( but pt noncompliant) * Chloroseptic spray for throat pain * She is getting repeat CAT scan of her abdomen and pelvis, with Gastrografin as oral contrast and IV contrast as well to rule out any leaks, and to follow-up on pelvic abscess. * PO meds have been discontinued including lyrica, lexapro, haldol, na bicarb, senna, docusate, tylenol, simethicone. These meds would need to be reordered once pt can eat. # Necrotic decubitus ulcer - Excised at bedside 08/10 - Not likely to be source of infection # Right shoulder pain with decreased passive and active ROM (improving) # Right elbow swelling (improving) - Xray and US obtained * Refuses MRI unless done under anesthesia * Appreciate Ortho (Dr. Schulz) input * She is undergoing right upper extremity and right lower extremity venous Doppler study to rule out any DVT today. Results: Negative for right upper extremity deep vein thrombosis. Complex 12.5 cm collection at the level of the elbow. Recommend clinical correlation. If further imaging is clinically appropriate, then MRI without and with contrast would be recommended for further evaluation. #Right leg seemed slightly bigger in size than the left one today. He has right lower extremity Doppler ultrasound was ordered to rule out DVT today. Results: Incomplete exam. The right common femoral and great saphenous veins are patent. The patient refused the rest of the exam. # The scalp lesion popped 08/02 PM, with purulent drainage noted - Alopecia noted Heme # Anemia - 08/12/16: received 1 PRBC - 08/18/16: Hb down to 7.3, transfused 1 unit , hb came up to 9.1 * Follow CBC Metabolic # Acute kidney injury resolved * Continue to follow kidney functions * Appreciate nephro input # Hyponatremia * Continue to follow sodium level * Appreciate nephro input # Hyperkalemia * Continue to monitor Psych # Depression # Hx of drug abuse * On the W-10 and the discharge instructions, please ask the receiving facility/ ECF to call and make an intake appointment at [facility], [address] [place] [address] when her discharge date is known, . * Cannot go home with proline, must go to rehab # Agitation * IV benadryl PRN Endocrine # Diabetes mellitus * Novolog tidac/qhs * Levemir 60 bid ON HOLD,consider restarting at lower dose * Watch blood sugar closely * Consider endo consult Alimentary * On tube feeds Skin # Decubitus ulcer * Wound consult with Dr. English appreciated, is getting Santyl dressing daily for her low back wound * Consulted surgery, necrotic patch excised at bedside, no deep tracking or necrosis or fasciitis noted * Consider rectal tube placement Diet: tube feeds DVT ppx: alps and heparin FC Consults: ID, surgery, renal, psych, ortho, PT, wound, nutrition Labs: BEP mag phos for electrolytes, CBC for anemia Problem List: 1. Gastric perforation 2. S/P gastrectomy 3. Pelvic abscess 4. Decubitus ulcer 5. Chronic pain syndrome Pain Ratin Pain Location: Multiple sites Pain Goal: Pain 4 or less Pain Plan: Dilaudid every 4 hours, Benadryl IV is in place. Tomorrow's Labs & Rationales: CBC, BNP, magnesium, phosphorus, INR, to follow-up on her septic status, renal function, hyperkalemia. RAFIA FARFAN,ERIBERTO 08/22/16 1721: Attending MD Review Statement Attending Statement Attending MD Statement: examined this patient, discuss w/resident/PA/ELECTRICIAN RECTIFIER MAINTENANCE, agreed w/resident/PA/ELECTRICIAN RECTIFIER MAINTENANCE, reviewed EMR data (avail), discussed with nursing, discussed with case mgmt, amended to note Attending Assessment/Plan: Patient seen and examined. Her excessive is medical record was reviewed. Found her lying in bed complaining of pain but does admit to relief with her current pain regimen. Denies shortness of breath. Denies chest pain. On examination she does have swollen right forearm tender to touch. Her right lower extremity also is swollen compared to left and is mildly tender to touch. Distal pulses are palpable on the upper and lower extremities. Abdomen is soft with some tenderness on exam. PEG tube is in place as well as BLANCA drain draining purulent material. Following discussion with the ID service CT scan of the abdomen was obtained. It shows decrease in the size of the collection at the site of the BLANCA Stephanie however she does have multiple smaller abscesses scattered in the abdomen. Doppler of the right upper extremity shows significant enlargement of the collection. She did not allow Doppler of the lower extremity to be completed secondary to pain. Recommendations: -Continue current antibiotic course. Keep patient nothing by mouth completely. -Please follow-up with the general surgery service regarding CT abdomen findings. She may require further exploration. -Follow-up with the general surgery service regarding her right upper extremity collection. This may require drainage as this has increased significantly in size compared to prior imaging. -We'll try to repeat the Doppler of the right lower extremity following analgesic medication.
--- NOTE | 2016-08-22 09:33 | NUR ---
NURSING NOTE: PT C/O ITCHINESS, OK TO GIVE BENADRYL EARLY PER MD ORDER. PT REQUESTING US TO BE AFTER NEXT PAIN MED DOSE; US SCHEDULED FOR 1300PM; NEXT PRN PAIN MEDS DUE AT 1200PM. CONT TO MONITOR. LEATHER STAKER AWARE OF ABOVE.
--- NOTE | 2016-08-22 10:27 | PN- Pulmonary ---
Subjective HPI/Critical Care Issues: pt seen and examined transferred out of icu feeling and looking significantly better today feels better with pain following surgical recommendations regarding alimentary status Objective Current Medications: Current Medications Sig/Shahla Start time Last Medication Dose Route Stop Time Status Admin Acetaminophen 1,000 MG Q6P PRN 08/07 1630 AC 08/21 N/A 1 UNIT IV 1127 Albuterol Sulfate 3 ML BID 08/05 2200 AC 08/22 INH 1020 Albuterol Sulfate 2 PUF Q4P PRN 07/30 2200 AC 08/07 INH 0914 Benzocaine/Menthol 1 RAYMUNDO Q2P PRN 08/11 2245 AC PO Collagenase 1 DEMETRA DAILY 08/04 1000 AC 08/21 TOP 1033 Diclofenac Sodium 1 DEMETRA TID PRN 07/30 1145 AC 08/05 TOP 2142 Diphenhydramine HCl 50 MG .STK-MED ONE 08/21 2206 DC IM 08/21 2207 Diphenhydramine HCl 50 MG .STK-MED ONE 08/21 2157 DC IM 08/21 2158 Diphenhydramine HCl 50 MG .STK-MED ONE 08/21 1524 DC IM 08/21 1525 Diphenhydramine HCl 50 MG Q6P PRN 08/07 1630 AC 08/22 IV 0924 Fluconazole 400 MG DAILY 08/15 1000 AC 08/22 Sodium Chloride 200 ML IV 0924 Heparin Sodium 5,000 UNIT Q8 08/12 0600 AC 08/22 (Porcine) SC 0527 Hydromorphone HCl 0.6 MG Q4-PRN PRN 08/15 1045 AC 08/22 IV 0811 Insulin Human Regular 1 UNITS .STK-MED ONE 08/21 2347 DC IV 08/21 2348 Insulin Human Regular 0 Q6 08/10 1800 AC 08/22 SC 0534 Lidocaine 1 PAT DAILY 07/28 1800 AC 07/28 EXT 2004 Lorazepam 0.5 MG ONCE ONE 08/22 0200 DC 04 IV 08/22 0201 0220 Magnesium Sulfate 1 GM Q2H 08/21 0730 DC 08/21 Dextrose/Water 100 ML IV 08/21 1129 1049 Meropenem 1 GM IQ8 08/13 1600 AC 08/22 IV 0852 Miconazole Nitrate 1 DEMETRA AT BEDTIME 07/29 0130 AC 08/17 VAG 2234 Nystatin 1 DEMETRA TID PRN 08/12 0730 AC 08/20 TOP 1001 Pantoprazole Sodium 40 MG DAILY 08/11 1802 08/22 IV 0852 Phenol 2 SPRAY Q2P PRN 08/18 08 AC 08/18 EXT 0834 Pregabalin 25 MG TID 08/21 1045 CAN PO Pregabalin 150 MG BID 08/21 1045 CAN PO Sucralfate 1 GM Q6 08/16 0830 AC 08/22 PO 0527 Vital Signs & I&O Last 24 Hrs of Vitals and I&O: Vital Signs Date Time Temp Pulse Resp B/P Pulse O2 O2 Flow FiO2 Ox Delivery Rate 08/22 0934 20 93 Room Air 08/22 0934 20 95 Nasal 2.0L Cannula 08/22 0645 98.8 113 20 100/60 93 Nasal 2.0L Cannula 08/22 0000 Room Air 08/21 2250 98.6 102 20 106/54 92 08/21 2220 Room Air Room Air 08/21 2200 98.5 106 20 96/56 92 Room Air 08/21 1600 95 Room Air 08/21 1600 97.8 88 20 112/60 95 Room Air Intake & Output 08/22 1600 07 0800 08/22 0000 Intake Total 745 180 Output Total 300 80 Balance 445 100 Intake, IV 60 Intake, Tube 525 Feeding Intake, Tube 220 120 Irrigant Output, 300 80 Drainage Output, 0 Gastric Drainage Exam Other Physical Findings: gen alert and awake heent ngt cvs s1, s2 lungs clear anterior chest proline in place abd distended, tenderness ext trace edema Results Last 24 Hrs of Lab Results: Laboratory Tests 08/22/16 0535: Anion Gap 4 L, Estimated GFR > 60, BUN/Creatinine Ratio 34.0 H, Phosphorus 3.9 , Magnesium 1.8, CBC w Diff NO MAN DIFF REQ, RBC 3.18 L, MCV 85.1, MCH 27.8, RDW 19.4 H, MPV 7.4, Gran % 80.9 H, Lymphocytes % 9.1 L, Monocytes % 2.6, Eosinophils % 6.7 H, Basophils % 0.7, Absolute Granulocytes 9.6 H, Absolute Lymphocytes 1.1 L, Absolute Monocytes 0.3, Absolute Eosinophils 0.8, Absolute Basophils 0.1, PUBS MCHC 32.7 L Impression/Plan Impression/Plan Impression/Plan: Impression 41 year old woman - hx of multiple collections/pus, MSSA, s/p partial gastrectomy - resolved BROOKLYNN - anemia improved - s/p transfusion Plan - ID follow up, on meropenem and fluconazole - surgical follow up, still NPO, alimentary status per surgery - pain control - will continue dilaudid and tylenol to regimen - monitor coags, cbc - DVT prophylaxis at all times Call with any further questions
--- NOTE | 2016-08-22 11:03 | PN- General Surgery ---
Surgical Brief Attending Note Brief Attending Note: Patient's persistent saliva appearing drainage from her BLANCA. There is also gas leaking from the BLANCA which makes sealing it difficult. Findings concerning for persistent gastric leak. I discussed the case with radiology. Given her body habitus, the feeling is that a CT scan, bariatric protocol rule out leak, would be better to establish a diagnosis and to ensure that the leak is controlled with the drain but is currently placed. Cuts through the pelvis can be obtained to ensure resolution of the pelvic abscess.
--- NOTE | 2016-08-22 11:30 | PN- Infect Dx ---
Subjective Subjective: Afebrile. She complains of abdominal pain and right upper extremity pain Objective Last 24 Hrs of Vital Signs/I&O Vital Signs Date Time Temp Pulse Resp B/P Pulse O2 O2 Flow FiO2 Ox Delivery Rate 08/22 1024 94 Room Air Room Air 08/22 0934 20 93 Room Air 08/22 0934 20 95 Nasal 2.0L Cannula 08/22 0645 98.8 113 20 100/60 93 Nasal 2.0L Cannula 08/22 0000 Room Air 08/21 2250 98.6 102 20 106/54 92 08/21 2220 Room Air Room Air 08/21 2200 98.5 106 20 96/56 92 Room Air 08/21 1600 95 Room Air 08/21 1600 97.8 88 20 112/60 95 Room Air Intake & Output 08/22 1600 08/22 0800 08/22 0000 Intake Total 745 180 Output Total 300 80 Balance 445 100 Intake, IV 60 Intake, Tube 525 Feeding Intake, Tube 220 120 Irrigant Output, 300 80 Drainage Output, 0 Gastric Drainage Physical Exam Other Physical Findings: She appears comfortable in no acute distress HEENT 250 mL drainage yesterday with none overnight Chest Pro-Line in the left upper chest with no inflammation at the site Lungs are clear Heart regular rhythm with no murmur Abdomen obese, soft, tender on minimal palpation; incision is clean with minimal erythema on the lateral aspect; BLANCA drain with 240 mL output yesterday and 300 mL overnight of purulent fluid Extremities right forearm edema with patches of erythema, tender to palpation; bilateral lower extremity edema, right greater than left Results Last 24 Hours of Lab Results: Laboratory Tests 08/22 0535 Chemistry Sodium (137 - 145 mmol/L) 137 Potassium (3.5 - 5.1 mmol/L) 4.7 Chloride (98 - 107 mmol/L) 104 Carbon Dioxide (22 - 30 mmol/L) 30 Anion Gap (5 - 16) 4 L BUN (7 - 17 mg/dL) 17 Creatinine (0.5 - 1.0 mg/dL) 0.5 Estimated GFR (>60 ml/min) > 60 BUN/Creatinine Ratio (7 - 25 %) 34.0 H Phosphorus (2.5 - 4.5 mg/dL) 3.9 Magnesium (1.6 - 2.3 mg/dL) 1.8 Hematology CBC w Diff NO MAN DIFF REQ WBC (4.8 - 10.8 /CUMM) 11.9 H RBC (4.20 - 5.40 /CUMM) 3.18 L Hgb (12.0 - 16.0 G/DL) 8.9 L Hct (37 - 47 %) 27.1 L MCV (81.0 - 99.0 FL) 85.1 MCH (27.0 - 31.0 PG) 27.8 RDW (11.5 - 14.5 %) 19.4 H Plt Count (130 - 400 /CUMM) 269 MPV (7.4 - 10.4 FL) 7.4 Gran % (42.2 - 75.2 %) 80.9 H Lymphocytes % (20.5 - 51.1 %) 9.1 L Monocytes % (1.7 - 9.3 %) 2.6 Eosinophils % (0 - 5 %) 6.7 H Basophils % (0.0 - 2.0 %) 0.7 Absolute Granulocytes (1.4 - 6.5 /CUMM) 9.6 H Absolute Lymphocytes (1.2 - 3.4 /CUMM) 1.1 L Absolute Monocytes (0.10 - 0.60 /CUMM) 0.3 Absolute Eosinophils (0.0 - 0.7 /CUMM) 0.8 Absolute Basophils (0.0 - 0.2 /CUMM) 0.1 PUBS MCHC (33.0 - 37.0 G/DL) 32.7 L Last 24 Hours of Haris Results: No recent cultures Assessment/Plan Impression: Overall stable with temperatures remaining normal but with white blood cell count increased today, possibly due to a complication of her recent surgery, for example a leak, with purulent appearing BLANCA drainage, or to a residual pelvic abscess, status post drainage 3 weeks ago, with the drain removed 5 days ago. She remains on Meropenem and Fluconazole for polymicrobial peritonitis/sepsis secondary to Enterobacter, Prevotella and yeast, now 10 days status post exploratory laparotomy and partial gastrectomy for a gangrenous stomach with perforation, and for Staph aureus isolated from the pelvic abscess, felt to be secondary to osteomyelitis of the right inferior pubic ramus. Her right upper extremity inflammation persists and may warrant further evaluation. Suggestion: 1. Further evaluation for possible leak, with gastrografin study or CT, per Surgery 2. Coordinate follow-up CT of the abdomen and pelvis with oral and IV contrast (for the pelvic abscess) with Surgery 3. Would consider imaging of the right upper extremity (for example with CT if she goes to CT) or ultrasound 4. Continue Meropenem and Fluconazole pending above
--- NOTE | 2016-08-22 12:23 | NUR ---
NURSING NOTE: PT SCHEDULED FOR US THEN CT SCAN OF PELVIS PER MD ORDER. PT REFUSING TO HAVE BUTT WOUND DRESSING CHANGED AT THIS TIME. LCW PROLINE DRSSSING CHANGED PER PROTOCOL. STERILE TECHNIQUE USED, PT ALSO WORE MASK. NO REDNESS OR DRAINAGE AT SITE; BIOPATCH APPLIED, +BLOOD RETURN X BOTH LUMENS. PT HAS MULTIPLE SCABS TO ABDOMEN, PT REFUSING TO BE TURNED AND REPOSTIONED AND FOR RN TO ASSESS WOUND TO BUTT; PT STATES "AFTER ALL MY TESTS PLEASE." DSG TO J TUBE AND BLANCA DRAIN SITE CHANGED BY THIS RN TODAY. GUNITE NOZZLE OPERATOR AWARE CONT TO MONITOR
--- NOTE | 2016-08-22 13:23 | NUR ---
NURSING NOTE: PT LEFT FLOOR VIA STRETCHER WITH DISTRIBUTION FOR R ARM AND R LEG US AND CT SCAN OF ABD/PELVIS PER MD ORDER. NGT CLAMPT. BLANCA DRAIN TO ABDOMEN, J TUBE CLAMPT. LCW PROLINE INTACT. TICKET TO RIDE COMPLTE, TOWER EXCAVATOR OPERATOR AWARE THAT 1200PM INSULIN WASNT GIVEN BECAUSE TF WAS ON HOLD. AWAIT RETURN TO FLOOR. CONT TO MONITOR.
--- NOTE | 2016-08-22 13:46 | NUR ---
Physical Therapy: Attempted to see pt this afternoon as pt was refusing mobility with even nursing this morning. Pt FREDRICK at this time. Will follow up as appropriate next week. Thank you.
--- NOTE | 2016-08-22 14:20 | NUR ---
nursing note: pt back to floor via stretcher with distribution from us and ct scan, pt awake, a/ox3, c/o pain; md #[id number] called and made aware and to come see her; pt updated. pt refusing to have sheets moved and to turn to have butt dressing changed. ngt to lws, tube feeding via j tube, ryan drain intact. cont to monitor.
--- NOTE | 2016-08-22 14:22 | ULTRASOUND REPORT ---
EXAMINATION: US TRIPLEX LOWER EXTREMITY, RIGHT CLINICAL INFORMATION: Right calf swelling. COMPARISON: None TECHNIQUE: Color-flow triplex imaging with spectral analysis and compression Doppler were performed on the right lower extremity. FINDINGS: The patient refused complete evaluation. Only the right common femoral and great saphenous veins were assessed. These were patent and compressible. IMPRESSION: Incomplete exam. The right common femoral and great saphenous veins are patent. The patient refused the rest of the exam.
--- NOTE | 2016-08-22 14:22 | ULTRASOUND REPORT ---
EXAMINATION: US TRIPLEX UPPER EXTREMITY, RIGHT CLINICAL INFORMATION: Right arm swelling. COMPARISON: None TECHNIQUE: Color-flow triplex imaging with spectral analysis and compression Doppler were performed on the right upper extremity. FINDINGS: There is no evidence of DVT in the right upper extremity. The internal jugular vein and imaged portion of the subclavian vein are patent. The axillary vein, brachial veins, basilic vein, and cephalic vein are patent and compressible. There is a 12.5 x 4.7 x 3.9 cm complex fluid collection in the elbow. IMPRESSION: Negative for right upper extremity deep vein thrombosis. Complex 12.5 cm collection at the level of the elbow. Recommend clinical correlation. If further imaging is clinically appropriate, then MRI without and with contrast would be recommended for further evaluation.
[2016-08-22 15:09] VITALS: BP 104/70
--- NOTE | 2016-08-22 15:39 | CT SCAN REPORT ---
EXAMINATION: CT ABDOMEN AND PELVIS WITH CONTRAST CLINICAL INFORMATION: Pelvic abscess drained on 08/01/2016. One drain on the right removed. Status post surgical drainage of a left subdiaphragmatic abscess collection with placement of drains. Per chart: History of right hemicolectomy. COMPARISON: CT exams of the abdomen and pelvis on August 01, August 09 (left subdiaphragmatic abscess), August 10, and August 12. TECHNIQUE: Multidetector volumetric imaging was performed of the abdomen and pelvis after the IV administration of 98 mL of Optiray 320 intravenous contrast. Oral contrast was also administered via the indwelling NG tube. Sagittal and coronal reformatted images were obtained on the technologist's workstation. DLP: 1575 mGy-cm FINDINGS: Surgical Consultant view demonstrates new skin sylvia across the left upper quadrant left flank area. There is still a mass effect on the body of the stomach which is displaced medially by phlegmonous tissue reaction at the site of the prior subdiaphragmatic abscess left upper quadrant, now drained. One surgically placed drainage catheter terminates in the immediate left subdiaphragmatic region, and the other terminates in the left flank region. Other drainage drainage catheters in the pelvis have been removed. LUNG BASES: There is a small left pleural effusion associated with minimal compression atelectasis of left lower lobe. In addition, there is a small right pleural effusion and evidence of a loculated rim-enhancing fluid collection in the lower right hemithorax abutting the dome of the diaphragm and posterior mediastinum. This measures approximately 8.8 cm in greatest diameter in addition, there is focal consolidation of the posterior medial aspect of the right lower lobe. LIVER, GALLBLADDER, AND BILIARY TREE: Normal. PANCREAS: Atrophic. SPLEEN: Unremarkable. No abscess. ADRENAL GLANDS: Unremarkable. KIDNEYS AND URETERS: Normal. BLADDER: Distended but compressed by adjacent loculated fluid collections. A small amount of air is seen in the lumen of the urinary bladder thought to be iatrogenic. Series 2, image 84. GASTROINTESTINAL TRACT: The following observations can be made regarding the abdominal cavity: 1. The left subdiaphragmatic abscess collection has been drained via a surgically placed drainage catheter. Edematous tissue remains in the immediate left subdiaphragmatic region. 2. New long elongated encapsulated fluid collection beginning beneath the dome of the right hemidiaphragm extending into the right pericolonic gutter and subhepatic spaces measuring 26 cm in greatest cephalocaudad dimension. Series 602, image 37/118. 3. Encapsulated crescentic in shape fluid collection in the left pericolic gutter measuring approximately 19 cm in cephalocaudad dimension. Series 602, image 59. 4. An ovoid encapsulated fluid collection to the left of the urinary bladder in the lower left pelvis measuring 12 - 13 cm in diameter. Series 2, image 79/104. Series 602, image 48. 5. Interval avoiding E fluid collection just to the right of the urinary bladder and medial to the right acetabulum measuring 6.9 cm in greatest diameter. Series 2, image 84. 6. A long continuous series of small encapsulated fluid collections beginning deep in the right pelvic sidewall extending superiorly into the right iliac fossa and from there anteriorly and laterally into the proximal right medial thigh anterior to the femur and right hip joint. Fluid collections extend inferiorly within the right thigh. The last slice series 2 image 104 still shows the encapsulated fluid collections which most likely extend more inferiorly. 7. A series of encapsulated fluid collections that most likely communicate with each other located posterior to the gluteus ashley on the right and extend inferiorly lateral to the hip joint and lateral to the right femur. These also extend more inferiorly from the last slice of the series. Series 2, image 104. 8. An encapsulated fluid collection the cul-de-sac measuring approximately 7.8 cm in width. Series 2, image 76/104. ABDOMINAL WALL: Generalized anasarca. LYMPH NODES: Normal. VASCULAR: Unremarkable. PELVIC VISCERA: Now no drainage catheters in the pelvis. OSSEOUS STRUCTURES: No change as previously described. IMPRESSION: 1. The left subdiaphragmatic abscess has been drained surgically. Phlegmon persists. This results in some displacement of the stomach medially. 2. Numerous encapsulated fluid collections throughout the abdomen and pelvis and right thigh as described above. 3. Encapsulated intrapleural collection right hemithorax. Small bilateral effusions.
--- NOTE | 2016-08-22 17:24 | PN- General Surgery ---
Surgical Brief Attending Note Brief Attending Note: CT reviewed. Findings suspicious for persistent leak at gastric repair site. There is no fluid collection at the stomach--surgically placed drain appears to be contolling the leak. No surgical intervention can be performed or will be in the near future. This will be a long process of healing, during which she will not be able to take anything orally--potentially 6-8 weeks. She has a feeding jejunostomy, which at this point is life saving for her. Continue NG, npo except scant ice/swabs. In regards to the new fluid collections seen, recommend IR drainage of RUQ and LLQ/pelvis collections on Thursday, unless her condition deteriorates from an infectious standpoint. I will be available throughout the weekend.
[2016-08-22 18:48] VITALS: BP 102/64
--- NOTE | 2016-08-22 19:11 | NUR ---
NURSING NOTE: PT CONTINUES TO REFUSE REPOSITIONING AND TO HAVE DRESSING CHANGED TO BUTTOCK. PT NPO WITH NO ICE CHIPS AT PRESENT PER DR. MORATAYA. PT AWARE AND MOUTH SWABS AT BEDSIDE. PT VS CHARTED. MEDICATED AT 1845 FOR PAIN 02/24. WILL CONTINUE TO MONITOR.
[2016-08-22 23:25] VITALS: BP 100/50
--- NOTE | 2016-08-23 04:31 | NUR ---
PT REFUSES REPOSITIONING AND FALL PREVENTION MEASURES
[2016-08-23 07:09] VITALS: BP 98/54
[2016-08-23 07:22] VITALS: BP 100/50
--- NOTE | 2016-08-23 07:51 | PN- General Surgery ---
Subjective Subjective: No acute events overnight. Continued pain in the abdomen which is no worse. Denies fever nausea or vomiting. Objective Vital Signs and I&Os Vital Signs Date Time Temp Pulse Resp B/P Pulse O2 O2 Flow FiO2 Ox Delivery Rate 08/23 0622 102 100/50 08/23 0709 98.7 112 20 98/54 92 Room Air 08/22 2325 98.6 109 18 100/50 93 Room Air 08/22 2234 96 Room Air Room Air 08/22 1848 98.8 104 18 102/64 93 Room Air Room Air 08/22 1509 98.9 100 22 104/70 92 Room Air 08/22 1024 94 Room Air Room Air 08/22 0934 20 93 Room Air 08/22 0934 20 95 Nasal 2.0L Cannula 08/22 08 95 Nasal 2.0L Cannula Intake & Output 08/23 0800 08/23 0000 08/22 1600 08/22 0800 08/22 0000 08/21 1600 Intake Total 60 225 990 745 180 560 Output Total 690 635 625 300 80 170 Balance -630 -410 365 445 100 390 Intake, IV 60 300 60 Intake, Oral 0 Intake, 225 TPN/PPN Intake, Tube 450 525 320 Feeding Intake, Tube 240 220 120 240 Irrigant Number 0 Bowel Movements Output, 10 180 175 300 80 120 Drainage Output, 80 5 0 0 50 Gastric Drainage Output, Other 600 Output, Urine 450 450 Physical Exam: Well-developed well-nourished no apparent distress. HEENT: Atraumatic, extraocular motion intact. NG tube in place, mild to moderate amount of bilious gastric contents noted in tube Neck: Supple, no lymphadenopathy Heart: tachycardic with a rhythm Respiratory: No respiratory distress, clear to auscultation anteriorly Abdomen: Incision is healing well, no signs of infection, minimal serous discharge laterally. Left side BLANCA drain in place with small amount of serous fluid discharge at drain site. Drain has approximately 75 mL of white mucopurulent discharge. Extremities: +1 pitting bilateral lower extremity edema, full range of motion, bilateral calves nontender Neuro: Alert and oriented x3 Psych: Mood affect normal, normal memory normal judgment. Skin: Warm and dry, no rash on exposed skin Results Last 48 Hours of Labs: Laboratory Tests 08/23 08/22 0546 0535 Chemistry Sodium (137 - 145 mmol/L) Pending 137 Potassium (3.5 - 5.1 mmol/L) Pending 4.7 Chloride (98 - 107 mmol/L) Pending 104 Carbon Dioxide (22 - 30 mmol/L) Pending 30 Anion Gap (5 - 16) Pending 4 L BUN (7 - 17 mg/dL) Pending 17 Creatinine (0.5 - 1.0 mg/dL) Pending 0.5 Estimated GFR (>60 ml/min) > 60 BUN/Creatinine Ratio (7 - 25 %) Pending 34.0 H Phosphorus (2.5 - 4.5 mg/dL) Pending 3.9 Magnesium (1.6 - 2.3 mg/dL) Pending 1.8 Coagulation PT Pending INR Pending Hematology CBC w Diff Pending NO MAN DIFF REQ WBC (4.8 - 10.8 /CUMM) Pending 11.9 H RBC (4.20 - 5.40 /CUMM) Pending 3.18 L Hgb (12.0 - 16.0 G/DL) Pending 8.9 L Hct (37 - 47 %) Pending 27.1 L MCV (81.0 - 99.0 FL) Pending 85.1 MCH (27.0 - 31.0 PG) Pending 27.8 RDW (11.5 - 14.5 %) Pending 19.4 H Plt Count (130 - 400 /CUMM) Pending 269 MPV (7.4 - 10.4 FL) Pending 7.4 Gran % (42.2 - 75.2 %) 80.9 H Lymphocytes % (20.5 - 51.1 %) 9.1 L Monocytes % (1.7 - 9.3 %) 2.6 Eosinophils % (0 - 5 %) 6.7 H Basophils % (0.0 - 2.0 %) 0.7 Absolute Granulocytes (1.4 - 6.5 /CUMM) 9.6 H Absolute Lymphocytes (1.2 - 3.4 /CUMM) 1.1 L Absolute Monocytes (0.10 - 0.60 /CUMM) 0.3 Absolute Eosinophils (0.0 - 0.7 /CUMM) 0.8 Absolute Basophils (0.0 - 0.2 /CUMM) 0.1 PUBS MCHC (33.0 - 37.0 G/DL) Pending 32.7 L Assessment/Plan Assessment/Plan Pt is a 41 yo F who is now POD # 11 s/p subtotal gastrectomy for gangrenous stomach. She is tolerating tube feeds. CT scan shows numerous intra-abdominal collections from leaking stomach. Plan: -Continue current care -Plan for IR drainage of intra-abdominal collections on Thursday unless patient becomes ill over weekend. -Continue BLANCA drain, large output this am -Continue npo with tube feeds via feeding J tube. Continue ngt to low wall suction. -Continue IV abx and diflucan as per ID. -DVT prophylaxsis with heparin sq -Pain medication as needed (keep to minimum) -Carafate by mouth and protonix IV for GI ppx. -Out of bed -Medical management per primary team. Core Measures/Miscellaneous Venous Thromboembolism VTE Risk Factors: Acute medical illness VTE Contraindications: No Contraindications VTE Diagnosis: No VTE Type: NONE VTE Confirmed by (Test): NONE Beta Jimmy Is Beta Jimmy a Home Med? No Antibiotics Is Patient on Antibiotics? No
[2016-08-23 08:11] LABS: ABSOLUTE BASOPHIL COUNT 0.1 /CUMM (0.0-0.2); ABSOLUTE EOSINOPHIL COUNT 0.7 /CUMM (0.0-0.7); ABSOLUTE GRANULOCYTE CT 7.8 /CUMM (1.4-6.5); ABSOLUTE LYMPH COUNT 1.1 /CUMM (1.2-3.4); ABSOLUTE MONOCYTE COUNT 0.4 /CUMM (0.10-0.60); BASOPHIL % 0.7 % (0.0-2.0); GRANULOCYTE % 76.8 % (42.2-75.2); HEMATOCRIT 27.4 % (37-47); MEAN CORPUSCULAR HGB 27.9 PG (27.0-31.0); MEAN CORPUSCULAR HGB CONC 32.4 G/DL (33.0-37.0); MEAN CORPUSCULAR VOLUME 86.2 FL (81.0-99.0); MEAN PLATELET VOLUME 8.4 FL (7.4-10.4); PLATELET COUNT 275 /CUMM (130-400); RBC DISTRIBUTION WIDTH 21.2 % (11.5-14.5); RED BLOOD CELL CT 3.18 /CUMM (4.20-5.40); WHITE BLOOD CELL COUNT 10.2 /CUMM (4.8-10.8)
--- NOTE | 2016-08-23 08:26 | PN- Housestaff ---
[facility] 08/23/16 0826: Subjective Follow-up For: -Status post partial gastrectomy for gangrenous stomach with perforation -Pelvic abscess Subjective: Patient was seen and examined this morning, no overnight events reported by the nurse or the patient, vital signs blood pressure 100/50, pulse 102, remained afebrile with good saturation on room air. Patient reported abdominal pain, waiting for dailudid dose, denied any chest pain, shortness of breath, cough, nausea or vomiting, dysuria. Review of Systems Constitutional: Reports: see HPI. Objective Last 24 Hrs of Vital Signs/I&O Vital Signs Date Time Temp Pulse Resp B/P Pulse O2 O2 Flow FiO2 Ox Delivery Rate 08/23 0722 102 100/50 08/23 0709 98.7 112 20 98/54 92 Room Air 08/22 2325 98.6 109 18 100/50 93 Room Air 08/22 2234 96 Room Air Room Air 08/22 1848 98.8 104 18 102/64 93 Room Air Room Air 08/22 1509 98.9 100 22 104/70 92 Room Air Intake & Output 08/23 1600 08/23 0800 08/23 0000 Intake Total 60 225 Output Total 690 635 Balance -630 -410 Intake, IV 60 Intake, 225 TPN/PPN Output, 10 180 Drainage Output, 80 5 Gastric Drainage Output, Other 600 Output, Urine 450 Physical Exam General Appearance: Alert, Oriented X3, Cooperative, No Acute Distress Skin: No Rashes HEENT: Atraumatic, PERRLA, EOMI, Mucous Membr. moist/pink Neck: Supple Cardiovascular: Regular Rate, Normal S1, Normal S2, No Murmurs Lungs: Clear to Auscultation, Normal Air Movement Abdomen: Normal Bowel Sounds, Distended, multiple surgical sites, no active bleeding, patient refused palpation Neurological: Normal Speech, Strength at 5/5 X4 Ext, Normal Tone, Sensation Intact, Cranial Nerves 3-12 NL, Reflexes 2+ Extremities: No Clubbing, No Cyanosis, Normal Pulses, BL +1 pedal edema Assessment/Plan Assessment: 40-year-old lady with a PMH of diabetes, previous right-sided hemorrhagic pleural effusion S/P Pleurx catheter, lytic therapy 2, previous MSSA sepsis likely secondary to pro-line catheter, previous necrotizing fasciitis of the perineum, left pararenal abscess, osteomyelitis of pubic bone, polysubstance abuse, depression, opiate dependence who presented with complaints of right-sided hip pain, admitted to , found to have pelvic abscess, that was drained by Dr. Sam on 08/01/16. Post procedure, she was hypotensive and was transferred to ICU. She received levophed for 1 day, subsequently her BP was stable and pt was transferred back to . The pt was again hypotensive, and lethargic, and was transferred to ICU. She again was on levophed for a couple of days with BP stable without pressors, and was transferred back to . For the third time, she was again hypotensive requiring another ICU transfer. It has been noted that her BP drops when she receives dilaudid. She was placed on levophed for blood pressure support. The CT findings was concerning for acute abdomen due to perforation vs ileus vs obstruction (tiny amount of free air similar to prior imaging, gastric pneumatosis, ?perforation gastric ulcer, diffusely tender abdomen, no bowel sounds heard, large amount of NG tube output bright yellow --> muddy green --> brown). Her lactic acid elevated up to 2.7, with poor UO. With IVF, her UO improved. There was fluid collection in the left pelvis, that was drained by Dr. Dunaway and put out cloudy yellow --> brown fluid collection in the pelvis (similar in color and consistency to NG tube fluid), most likely representing infected ascitic fluid, consistent with peritonitis. We were concerned for perforation in the stomach due to image findings of gastric pneumatosis. Gastrograffin studies done and showed leakage of contrast out of the stomach. Pt was taken to OR on 08/12/[address] Trammell for exploratory laparotomy with partial gastrectomy for gangrenous stomach and J tube insertion. There was no perforation found, but seeping of fluid through the gangrenous wall into the peritoneal space is entirely possible causing peritonitis. The etiology of the the gangrene is unknown, could be cocaine? vasopressors? hypotension? She was started on tube feeds and have been tolerating it well, except she constantly complains of dry mouth because she is not allowed to take anything PO (although she did admit to drinking icetea and have been seen drinking icechips) . Her other issues this admission include right pelvis infection (sp IR drainage on 08/01/16 followed by first hypotensive episode requiring ICU monitoring), right upper extremity swelling (due to intentional fall) that has now improved, with ortho following. She also developed BROOKLYNN most likely multifactorial in nature (BUN/Cr up to 66/2.9) prerenal and ATN - insults including hypotension, contrast, vancomycin, with nephrology following, and kidney functions improved. Lines: BLANCA drain d12 J tube d12 Proline (08/07/16) NG tube (08/10/16) Right pelvis catheter (08/01/16 - 08/17/16) Left pelvis catheter (08/11/16 - 08/17/16) Restrains UE discontinued after 3 days Extubated after 3 days A line removed after 4 days Orta (removed) Respiratory * Intubated 08/12 - 08/14 after the surgery Cardiovascular # Hypotension * Off levophed 08/14 645AM * IVF discontinued 08/14, consider diuresis for anasarca * Blood pressure has been within normal limits, with a slight decrease earlier today at 100/60 at 7 AM ID # Pelvic abscess sp IR drainage (right 08/01 and left 08/11, catheters removed 08/17) # Peritonitis due to gangrenous stomach (due to ischemia..cocaine? gastroparesis ? pressors?) - 08/11: [place] [address], VRE, enterobacter, yeast, lactobacillus. * Oxacillin started to cover MSSA on 08/01, discontinued on 08/10/16. Zosyn started on 08/10/16 to cover pseudomonas. Fluconazole 400 IV q8 started on 08/12 for yeast in ascitic fluid, changed to daily when kidney functions improved. Zosyn discontinued and meropenem started on 08/13. * Plan for repeat CT pelvis prior to discharge * dilaudid 0.6 q4 p . cannot start lyrica as meds cannot be given through ng tube # S/P partial gastrectomy for gangrenous stomach, with J tube * Tube feeding as per surgery and nutrition * Continue IV protonix , sucralfate * Appreciate surgery input * NG tube low wall suction. GIVE NOTHING THROUGH NG TUBE other than sucralfate ( but pt noncompliant) * Chloroseptic spray for throat pain * CTA abomin and pelvis releaved 1. The left subdiaphragmatic abscess has been drained surgically. Phlegmon persists. This results in some displacement of the stomach medially. 2. Numerous encapsulated fluid collections throughout the abdomen and pelvis and right thigh as described above. 3. Encapsulated intrapleural collection right hemithorax. Small bilateral effusions. * PO meds have been discontinued including lyrica, lexapro, haldol, na bicarb, senna, docusate, tylenol, simethicone. These meds would need to be reordered once pt can eat. # Necrotic decubitus ulcer - Excised at bedside 08/10 - Not likely to be source of infection # Right shoulder pain with decreased passive and active ROM (improving) # Right elbow swelling (improving) - Xray and US obtained * Refuses MRI unless done under anesthesia * Appreciate Ortho (Dr. Schulz) input * She is undergoing right upper extremity and right lower extremity venous Doppler study to rule out any DVT today. Results: Negative for right upper extremity deep vein thrombosis. Complex 12.5 cm collection at the level of the elbow. Recommend clinical correlation. If further imaging is clinically appropriate, then MRI without and with contrast would be recommended for further evaluation. Fluid collection was drained today by [facility] and culture was sent. #Right leg seemed slightly bigger in size than the left one. He has right lower extremity Doppler ultrasound was ordered to rule out DVT, patient refused the study despite giving pain medication. # The scalp lesion popped 08/02 PM, with purulent drainage noted - Alopecia noted Heme # Anemia - 08/12/16: received 1 PRBC - 08/18/16: Hb down to 7.3, transfused 1 unit , hb came up to 9.1 * Follow CBC Metabolic # Acute kidney injury resolved * Continue to follow kidney functions * Appreciate nephro input # Hyponatremia * Continue to follow sodium level * Appreciate nephro input # Hyperkalemia * Continue to monitor Psych # Depression # Hx of drug abuse * On the W-10 and the discharge instructions, please ask the receiving facility/ ECF to call and make an intake appointment at [facility], [address] [place] [address] when her discharge date is known, . * Cannot go home with proline, must go to rehab # Agitation * IV benadryl PRN Endocrine # Diabetes mellitus * Novolog tidac/qhs * Levemir 60 bid ON HOLD,consider restarting at lower dose * Watch blood sugar closely * Consider endo consult Alimentary * On tube feeds Skin # Decubitus ulcer * Wound consult with Dr. English appreciated, is getting Santyl dressing daily for her low back wound * Consulted surgery, necrotic patch excised at bedside, no deep tracking or necrosis or fasciitis noted * Consider rectal tube placement Diet: tube feeds DVT ppx: alps and heparin FC Consults: ID, surgery, renal, psych, ortho, PT, wound, nutrition Problem List: 1. Pelvic abscess Pain Ratin Pain Location: Abdominal pain Pain Goal: Pain 4 or less Pain Plan: Severe pain pathway Tomorrow's Labs & Rationales: BEP mag phos for electrolytes, CBC for anemia ERIBERTO MORATAYA MD 08/23/16 1107: Attending MD Review Statement Attending Statement Attending MD Statement: examined this patient, discuss w/resident/PA/EMPLOYMENT SERVICES DIRECTOR, agreed w/resident/PA/EMPLOYMENT SERVICES DIRECTOR, reviewed EMR data (avail), discussed with nursing, amended to note Attending Assessment/Plan: Patient seen and examined. Lying in bed. Not in acute distress at present. No issues overnight reported by nursing staff. She remains afebrile and hemodynamically stable. She continues to have significant drainage from her BLANCA drain. Surgical site remains intact. She continues to have right upper extremity and right lower extremity swelling. Distal pulses remain palpable. Extremities remain tender. Recommendations: -Maintain nothing by mouth status. Continue IV hydration. -Follow-up with the IR service for placement of drainage tubes as recommended by surgery service on Thursday. -Right upper extremity collection discussed with the surgical service. We'll follow-up recommendations. -Please reattempt to obtain Doppler of the right lower extremity today. Patient should be premedicated just prior to procedure for pain control.
[2016-08-23 08:32] LABS: PT 10.8 SEC (9.4-12.5)
--- NOTE | 2016-08-23 09:30 | NUR ---
NURSING NOTE: PT MEDICATED FOR PAIN, ALL AM IV MEDS GIVEN, PT REFUSING TO BE REPOSITIONED AND TO HAVE WOUND TO BOTTOM/J TUBE AND J DRAIN CHANGED. DR MORATAYA AWARE. PT STATES "IM GOING TO GET SOME SLEEP AND MAYBE YOU CAN DO IT LATER" CONT TO MONITOR. PT EDUCATED ABOUT SKIN INTEGRITY PROTOCOL. PT CONTINUES TO REFUSE BED ALARM, ATTENDING AWARE.
--- NOTE | 2016-08-23 12:14 | NUR ---
NURSING NOTE: S/P BEDSIDE I&D OF R ELBOW BY JULIETTE JOSHI. LIDO GIVEN BY JULIETTE JOSHI APPROX 300ML BLOODY PUS FLUID CAME OUT; PACKING/GAUZE/ABD PAD PLACE TO ARM; WRAPPED IN SERINA WRAP. ELEVATED ON PILLOW. 156 AWARE
--- NOTE | 2016-08-23 12:17 | PN- Pulmonary ---
Subjective HPI/Critical Care Issues: Patient seen and examined this morning she received pain medication and is happy currently. The imaging was reviewed. From the respiratory status she is stable. Objective Current Medications: Current Medications Sig/Shahla Start time Last Medication Dose Route Stop Time Status Admin Acetaminophen 1,000 MG Q6P PRN 08/07 1630 AC 08/21 N/A 1 UNIT IV 1127 Albuterol Sulfate 3 ML BID 08/05 2200 AC 08/22 INH 1020 Albuterol Sulfate 2 PUF Q4P PRN 07/30 2200 AC 08/07 INH 0914 Benzocaine/Menthol 1 RAYMUNDO Q2P PRN 08/11 2245 AC PO Collagenase 1 DEMETRA DAILY 08/04 1000 AC 08/21 TOP 1033 Diclofenac Sodium 1 DEMETRA TID PRN 07/30 1145 AC 08/05 TOP 2142 Diphenhydramine HCl 50 MG .STK-MED ONE 08/23 0257 DC IM 08/23 0258 Diphenhydramine HCl 50 MG .STK-MED ONE 08/22 2114 DC IM 08/22 2115 Diphenhydramine HCl 50 MG .STK-MED ONE 08/22 1514 DC IM 08/22 1515 Diphenhydramine HCl 50 MG Q6P PRN 08/07 1630 AC 08/23 IV 0933 Fluconazole 400 MG DAILY 08/15 1000 AC 08/23 Sodium Chloride 200 ML IV 0912 Heparin Sodium 5,000 UNIT Q8 08/12 0600 AC 08/23 (Porcine) SC 0534 Hydromorphone HCl 0.6 MG Q4-PRN PRN 08/15 1045 AC 08/23 IV 0934 Insulin Human Regular 2 UNITS .STK-MED ONE 08/22 2358 DC IV 08/22 2359 Insulin Human Regular 4 UNITS .STK-MED ONE 08/22 1721 DC IV 08/22 1722 Insulin Human Regular 0 Q6 08/10 1800 AC 08/23 SC 0535 Lidocaine 1 PAT DAILY 07/28 1800 AC 07/28 EXT 2004 Lidocaine/Epinephrine 20 ML ONCE ONE 08/23 1130 DC 0408 SC 08/23 1131 1150 Lorazepam 0.5 MG ONCE ONE 08/22 2145 DC 07 IV 08/22 2146 2333 Meropenem 1 GM IQ8 08/13 1600 AC 08/23 IV 0911 Miconazole Nitrate 1 DEMETRA AT BEDTIME 07/29 0130 AC 08/17 VAG 2234 Nystatin 1 DEMETRA TID PRN 08/12 0730 AC 08/20 TOP 1001 Pantoprazole Sodium 40 MG DAILY 08/11 1802 AC 08/23 IV 0912 Phenol 2 SPRAY Q2P PRN 08/18 0800 AC 08/18 EXT 0834 Sucralfate 1 GM Q6 08/16 0830 AC 08/23 PO 0535 Vital Signs & I&O Last 24 Hrs of Vitals and I&O: Vital Signs Date Time Temp Pulse Resp B/P Pulse O2 O2 Flow FiO2 Ox Delivery Rate 08/23 0722 102 100/50 08/23 0709 98.7 112 20 98/54 92 Room Air 08/22 2325 98.6 109 18 100/50 93 Room Air 08/22 2234 96 Room Air Room Air 08/22 1848 98.8 104 18 102/64 93 Room Air Room Air 08/22 1509 98.9 100 22 104/70 92 Room Air Intake & Output 08/23 1600 08/23 0800 08/23 0000 Intake Total 60 225 Output Total 690 635 Balance -630 -410 Intake, IV 60 Intake, 225 TPN/PPN Output, 10 180 Drainage Output, 80 5 Gastric Drainage Output, Other 600 Output, Urine 450 Exam Other Physical Findings: gen alert and awake heent ngt cvs s1, s2 lungs clear anterior chest proline in place abd distended, tenderness ext trace edema Results Last 24 Hrs of Lab Results: Laboratory Tests 08/23/16 0546: Anion Gap 6, Estimated GFR > 60, BUN/Creatinine Ratio 33.3 H, Phosphorus 4.2, Magnesium 1.7, PT 10.8, INR 1.03, CBC w Diff NO MAN DIFF REQ, RBC 3.18 L, MCV 86.2, MCH 27.9, RDW 21.2 H, MPV 8.4, Gran % 76.8 H, Lymphocytes % 11.2 L, Monocytes % 4.3, Eosinophils % 7.0 H, Basophils % 0.7, Absolute Granulocytes 7.8 H, Absolute Lymphocytes 1.1 L, Absolute Monocytes 0.4, Absolute Eosinophils 0.7, Absolute Basophils 0.1, PUBS MCHC 32.4 L Impression/Plan Impression/Plan Impression/Plan: Impression 41 year old woman - hx of multiple collections/pus, MSSA, s/p partial gastrectomy - resolved [place] - anemia improved - s/p transfusion - small left pleural effusion, compression atelectasis, small right pleural effusion with a loculated rim-enhanicing fluid collection in the right lower hemithorax abutting the dome of the diaphragm and posterior mediastinum Plan - will need longitudinal follow up for the pleural disease, currently feeling well from respiratory perspective, IST if tolerated - ID follow up, on meropenem and fluconazole - surgical follow up, still NPO, alimentary status per surgery - pain control - will continue dilaudid and tylenol to regimen - monitor coags, cbc - DVT prophylaxis at all times Call with any further questions
--- NOTE | 2016-08-23 12:19 | Procedure ---
See Addendum Minor Surgical Procedure Note Date of Procedure: 08/23/16 Procedure Note: I was asked by the medical team to evaluate the patient's right upper extremity from a surgical standpoint. She has been having swelling and redness in that arm for over a week and she has had 2 ultrasounds, last ultrasound shows a 12 x 8 cm collection at the posterior olecranon region which I have reviewed. On physical exam the patient's right upper extremity was edematous, diffusely erythematous, exquisitely tender to palpation especially at the olecranon bursa region and the skin of the M bursa region was extremely thin. Elbow range of motion was limited secondary to pain but I do not feel as though this is a septic arthritis. Neurovascularly intact distally. Risks and benefits of procedure discussed with patient, after sterile prep with chlorhexidine and injection of 10 mL of 2% lidocaine with epinephrine to the right olecranon region, and 11 blade scalpel was used to make an approximately 3 -4 cm incision at the olecranon bursa. A large amount of purulent and bloody foul-smelling discharge was expressed. There is a discharge that a Yankauer suction was used and wall suction canister was needed to collect all the discharge. In total there was 200 mL in the suction canister plus whatever had been expressed out onto the chucks. Approximately 300 mL total. Upon further deep inspection of the wound, and inflamed thickened olecranon bursa was noted and this was excised as much as possible with 11 blade scalpel at the bedside. Quarter-inch iodoform packing was placed approximately 6 inches worth. Steril dressing and ABD applied and Kit wrap applied to the right upper extremity for compression. Pillows or place underneath the right arm for elevation purposes and warm compresses were recommended. A culture was obtained We'll obtain x-ray to evaluate for osteomyelitis. Patient tolerated the procedure well without complications. Discussed with Dr. Castellanos
--- NOTE | 2016-08-23 12:19 | PN- General Surgery ---
Surgical Brief Attending Note Brief Attending Note: NO CHANGES TO RECOMMENDATIONS YESTERDAY. LARGE ABSCESS TO RIGHT OLECRANON BURSA DRAINED BY SURGICAL PA. CULTURES TAKEN.
--- NOTE | 2016-08-23 13:09 | NUR ---
NURSING NOTE: PT MEDICATED EARLY WITH PRN DILAUDID PER MD ORDER TO GO FOR R LEG US AND R ELBOW XRAY. PT LEFT FLOOR AT THIS TIME, PT INC OF URINE BUT REFUSING NURSE TO CHANGE HER, PT STATES "WHEN I GET BACK" PT AWAKE, A/OX3, BLANCA DRAIN TO ABD. J TUBE FLUSHED AND PATENT FOR TRANSPORT, NGT CLAMPT. AWAIT RETURN TO FLOOR. DSG TO ELBOW INTACT
--- NOTE | 2016-08-23 14:00 | NUR ---
NURSING NOTE: RECIEVED CALL FROM US, PT REFUSING TO FINSIH US UNLESS SHE GETS MORE PAIN MEDS, 156 PAGED AND AWARE, SEE ONE TIME ORDER. WILL MEDICATE IN US
--- NOTE | 2016-08-23 14:40 | NUR ---
NURSING NOTE: PT BACK TO FLOOR VIA STRETCHER WITH DISTRIBUTION FROM US AND R ELBOW XRAY, PT AWAKE, A/OX3, PT BATHED, ALL DRESSINGS CHANGED,?BLISTER LIKE RED AREA TO L BUTT; WOUND CARE REEVAL MESSAGE SENT. NPO, NGT TO LWS, BLANCA DRAIN TO ABD. TUBE FEEDING VIA J TUBE; ALL NEW TUBING HUNG. PT SETTLED INTO BED, NEEDS IN REACH
--- NOTE | 2016-08-23 14:46 | ULTRASOUND REPORT ---
EXAMINATION: US TRIPLEX LOWER EXTREMITY, RIGHT CLINICAL INFORMATION: Right lower extremity swelling COMPARISON: 08/22/2016 TECHNIQUE: Color-flow triplex imaging with spectral analysis and compression Doppler were performed on the right lower extremity. FINDINGS: The patient declined complete evaluation. A single image of the right common femoral vein was obtained. No analysis could be performed. IMPRESSION: Incomplete exam. Patient declined examination secondary to pain.
[2016-08-23 15:00] VITALS: BP 102/48
--- NOTE | 2016-08-23 15:16 | Event Note ---
Event Note Event Note: Situation Received a call from ultrasound suite, patient is shouting and screaming of pain upon pressing on right leg with the ultrasound probe. Background Patient has right lower extremity swelling, questionable DVT Assessment Patient received the scheduled dilauded dose 0.6 prior to the exam, I ordered her another dose of 0.6 dilauded. Patient continues to scream of pain, went down to the ultrasound suite and tried to explained the importance of completing the test, roadway technician reported that she wasn't able to do anything because patient keeps yelling and screaming. Patient is refusing the study. Recommendation Attending was made aware, will assess again tomorrow and give recommendation accordingly. Patient vital signs are stable, no acute distress. Will continue to follow.
--- NOTE | 2016-08-23 15:25 | RADIOLOGY REPORT ---
EXAMINATION: XR ELBOW, RIGHT CLINICAL INFORMATION: Septic olecranon bursitis. Assess underlying bone. COMPARISON: None TECHNIQUE: Right elbow is imaged in 4 views. FINDINGS: There is no fracture, dislocation, or destructive process. Bony mineralization appears normal. There is no focal cortical lucency or periostitis. No elbow effusion appreciated. There is soft tissue swelling and some increased density within the posterior elbow soft tissues consistent with the clinical history. There is no gas tracking in the soft tissue planes. IMPRESSION: No osteomyelitis demonstrated.
[2016-08-23 22:19] VITALS: BP 102/58
--- NOTE | 2016-08-24 05:12 | NUR ---
NSG NOTE: PT REFUSING REPOSITIONING THROUGHOUT THE NIGHT. PT ALSO REFUSING DRESSING TO BUTTOCK TO BE CHANGED BY THIS RN. PT CRYING "I'M IN TOO MUCH PAIN, I CAN'T DO IT RIGHT NOW." PT EDUCATED ON SKIN INTEGRITY PROTOCOL. PT ALSO REFUSING BED ALARM. PRECISION LENS GRINDER APPRENTICE AWARE. WILL MONITOR.
[2016-08-24 06:53] VITALS: BP 106/52
[2016-08-24 07:34] LABS: ABSOLUTE BASOPHIL COUNT 0.1 /CUMM (0.0-0.2); ABSOLUTE EOSINOPHIL COUNT 0.8 /CUMM (0.0-0.7); ABSOLUTE GRANULOCYTE CT 7.2 /CUMM (1.4-6.5); ABSOLUTE LYMPH COUNT 1.2 /CUMM (1.2-3.4); ABSOLUTE MONOCYTE COUNT 0.6 /CUMM (0.10-0.60); BASOPHIL % 1.2 % (0.0-2.0); EOSINOPHIL % 8.1 % (0-5); GRANULOCYTE % 72.6 % (42.2-75.2); HEMATOCRIT 26.8 % (37-47); MEAN CORPUSCULAR HGB 28.1 PG (27.0-31.0); MEAN CORPUSCULAR HGB CONC 32.5 G/DL (33.0-37.0); MEAN CORPUSCULAR VOLUME 86.5 FL (81.0-99.0); MEAN PLATELET VOLUME 8.2 FL (7.4-10.4); PLATELET COUNT 303 /CUMM (130-400); RED BLOOD CELL CT 3.09 /CUMM (4.20-5.40)
--- NOTE | 2016-08-24 08:22 | PN- Infect Dx ---
Subjective Subjective: Afebrile. She complains of pain in the right arm, abdomen and right leg Objective Last 24 Hrs of Vital Signs/I&O Vital Signs Date Time Temp Pulse Resp B/P Pulse O2 O2 Flow FiO2 Ox Delivery Rate 08/24 0653 98.0 104 20 106/52 99 Nasal 2.0L Cannula 08/24 0000 Nasal 2.0L Cannula 08/23 2219 98.6 124 20 102/58 92 Nasal 2.0L Cannula 08/23 1855 86 Room Air 08/23 1645 Room Air 08/23 1500 98.6 98 20 102/48 93 Room Air 08/23 1253 95 Room Air Intake & Output 08/24 1600 08/24 0800 08/24 0000 Intake Total 840 Output Total 160 Balance 680 Intake, Oral 0 Intake, Tube 600 Feeding Intake, Tube 240 Irrigant Output, 120 Drainage Output, 40 Gastric Drainage Physical Exam Other Physical Findings: She is awake and alert in no acute distress, appearing relatively comfortable HEENT NG tube remains in place Chest Pro-Line in the left upper chest with no inflammation at the site Lungs are clear Abdomen is obese, soft, tender on palpation diffusely; BLANCA drain in place with purulent fluid Extremities right upper extremity dressing intact; bilateral lower extremity edema, right greater than left Results Last 24 Hours of Lab Results: Laboratory Tests 08/24 637 Chemistry Sodium Pending Potassium Pending Chloride Pending Carbon Dioxide Pending Anion Gap Pending BUN Pending Creatinine Pending BUN/Creatinine Ratio Pending Hematology CBC w Diff MAN DIFF ORDERED WBC (4.8 - 10.8 /CUMM) 10.0 RBC (4.20 - 5.40 /CUMM) 3.09 L Hgb (12.0 - 16.0 G/DL) 8.7 L Hct (37 - 47 %) 26.8 L MCV (81.0 - 99.0 FL) 86.5 MCH (27.0 - 31.0 PG) 28.1 RDW (11.5 - 14.5 %) 21.0 H Plt Count (130 - 400 /CUMM) 303 MPV (7.4 - 10.4 FL) 8.2 Gran % (42.2 - 75.2 %) 72.6 Lymphocytes % (20.5 - 51.1 %) 12.4 L Monocytes % (1.7 - 9.3 %) 5.7 Eosinophils % (0 - 5 %) 8.1 H Basophils % (0.0 - 2.0 %) 1.2 Absolute Granulocytes (1.4 - 6.5 /CUMM) 7.2 H Segmented Neutrophils (42.2 - 75.2 %) 62 Band Neutrophils (0.0 - 5.0 %) 15 H Absolute Lymphocytes (1.2 - 3.4 /CUMM) 1.2 Lymphocytes (20.5 - 51.1 %) 10 L Monocytes (1.7 - 9.3 %) 5 Absolute Monocytes (0.10 - 0.60 /CUMM) 0.6 Eosinophils (0 - 5.0 %) 7 H Absolute Eosinophils (0.0 - 0.7 /CUMM) 0.8 Basophils (0.0 - 2.0 %) 1 Absolute Basophils (0.0 - 0.2 /CUMM) 0.1 Platelet Estimate (ADEQUATE) VERIFIED BY SMEAR Polychromasia 1+ Anisocytosis 1+ Stomatocytes 1+ PUBS MCHC (33.0 - 37.0 G/DL) 32.5 L Last 24 Hours of Haris Results: Right elbow culture August 23 positive for Staph aureus Recent Imaging Studies: CT of the abdomen and pelvis August 23 reveals a small left pleural effusion with minimal atelectasis; a small right pleural effusion with a loculated rim- enhancing fluid collection in the lower right hemithorax, measuring 8.8 cm in greatest diameter; a new encapsulated fluid collection beneath the dome of the right hemidiaphragm extending into the right pericolic gutter and subhepatic spaces measuring 26 cm; an encapsulated fluid collection in the left pericolic gutter measuring 19 cm; an encapsulated fluid collection to the left of the urinary bladder measuring 12-13 cm; fluid collection to the right of the urinary bladder measuring 6.9 cm; a long continuous series of small encapsulated fluid collections beginning deep in the right pelvic sidewall extending superiorly into the right iliac fossa and laterally and anteriorly into the proximal right medial thigh anterior to the femur and right hip joint; a series of encapsulated fluid collections posterior to the gluteus ashley on the right and extending inferior laterally to the hip joint and laterally to the right femur; an encapsulated fluid collection in the cul-de-sac measuring 7.8 cm Doppler of the right upper extremity negative for DVT, but revealing a complex 12.5 cm collection at the level of the elbow Doppler of the right lower extremity unable to be completed X-ray of the right elbow no evidence of osteomyelitis Assessment/Plan Impression: Multiple encapsulated fluid collections throughout the abdomen, pelvis and right thigh seen on the recent CT scan, some likely related to her recent surgery 12 days ago for a gangrenous stomach with perforation, for which she remains on Meropenem and Fluconazole, and some presumably residual from her pelvic abscess which she presented with on admission and which was partially drained with a catheter that was inserted 23 days ago and removed one week ago. She underwent aspiration of 300 mL of purulent fluid from the right olecranon bursa yesterday, with Staph aureus isolated from this culture. She remains afebrile with a normal white blood cell count on Meropenem and Fluconazole despite the multiple collections seen on the recent imaging studies, but she will require drainage of these collections, either by IR or surgically. Her CT scan and these are suspicious for a persistent leak at the surgical site, with no surgical intervention apparently planned for this at this time. Suggestion: 1. Follow-up final culture from the right olecranon bursa 2. Would pursue drainage of the collections seen on the recent CT scan in the a.m. (will need to discuss with IR and surgery) 3. Consider need for orthopedic follow-up for more definitive drainage of the right olecranon bursa 4. Continue Meropenem and Fluconazole
--- NOTE | 2016-08-24 08:27 | PN- Housestaff ---
[facility] 08/24/16 0827: Subjective Follow-up For: -Status post partial gastrectomy for gangrenous stomach with perforation -Pelvic abscess Subjective: Patient was seen and examined this morning, she reported "not feeling good, want to have rest", she refused to have CTA with IV and oral contrast today and wanted be done tomorrow. Patient reported pain in the right arm, after incision and drainage has been done yesterday. Patient denied any shortness of breath, coughing, chest pain, palpitation. Vital signs are stable, no overnight events reported by the nurse of the patient. Review of Systems Constitutional: Reports: see HPI. Objective Last 24 Hrs of Vital Signs/I&O Vital Signs Date Time Temp Pulse Resp B/P Pulse O2 O2 Flow FiO2 Ox Delivery Rate 08/24 0653 98.0 104 20 106/52 99 Nasal 2.0L Cannula 08/24 0000 Nasal 2.0L Cannula 08/23 2219 98.6 124 20 102/58 92 Nasal 2.0L Cannula 08/23 1855 86 Room Air 08/23 1645 Room Air 08/23 1500 98.6 98 20 102/48 93 Room Air 08/23 1253 95 Room Air Intake & Output 08/24 1600 08/24 0800 08/24 0000 Intake Total 840 840 Output Total 540 160 Balance 300 680 Intake, Oral 0 Intake, Tube 600 600 Feeding Intake, Tube 240 240 Irrigant Output, 90 120 Drainage Output, 50 40 Gastric Drainage Output, Urine 400 Physical Exam General Appearance: Alert, Oriented X3, Cooperative, No Acute Distress Skin: No Rashes HEENT: Atraumatic, PERRLA, EOMI, Mucous Membr. moist/pink Neck: Supple Cardiovascular: Regular Rate, Normal S1, Normal S2, No Murmurs Lungs: Clear to Auscultation, Normal Air Movement Abdomen: Normal Bowel Sounds Neurological: Normal Speech, Strength at 5/5 X4 Ext, Normal Tone, Sensation Intact, Cranial Nerves 3-12 NL, Reflexes 2+ Extremities: No Clubbing, No Cyanosis, Normal Pulses, BL +2 pedal edema, RLE bigger than LLE, no erythema, no tenderness, no pain Assessment/Plan Assessment: 40-year-old lady with a PMH of diabetes, previous right-sided hemorrhagic pleural effusion S/P Pleurx catheter, lytic therapy 2, previous MSSA sepsis likely secondary to pro-line catheter, previous necrotizing fasciitis of the perineum, left pararenal abscess, osteomyelitis of pubic bone, polysubstance abuse, depression, opiate dependence who presented with complaints of right-sided hip pain, admitted to , found to have pelvic abscess, that was drained by Dr. Sam on 08/01/16. Post procedure, she was hypotensive and was transferred to ICU. She received levophed for 1 day, subsequently her BP was stable and pt was transferred back to . The pt was again hypotensive, and lethargic, and was transferred to ICU. She again was on levophed for a couple of days with BP stable without pressors, and was transferred back to . For the third time, she was again hypotensive requiring another ICU transfer. It has been noted that her BP drops when she receives dilaudid. She was placed on levophed for blood pressure support. The CT findings was concerning for acute abdomen due to perforation vs ileus vs obstruction (tiny amount of free air similar to prior imaging, gastric pneumatosis, ?perforation gastric ulcer, diffusely tender abdomen, no bowel sounds heard, large amount of NG tube output bright yellow --> muddy green --> brown). Her lactic acid elevated up to 2.7, with poor UO. With IVF, her UO improved. There was fluid collection in the left pelvis, that was drained by Dr. Dunaway and put out cloudy yellow --> brown fluid collection in the pelvis (similar in color and consistency to NG tube fluid), most likely representing infected ascitic fluid, consistent with peritonitis. We were concerned for perforation in the stomach due to image findings of gastric pneumatosis. Gastrograffin studies done and showed leakage of contrast out of the stomach. Pt was taken to OR on 08/12/[address] Trammell for exploratory laparotomy with partial gastrectomy for gangrenous stomach and J tube insertion. There was no perforation found, but seeping of fluid through the gangrenous wall into the peritoneal space is entirely possible causing peritonitis. The etiology of the the gangrene is unknown, could be cocaine? vasopressors? hypotension? She was started on tube feeds and have been tolerating it well, except she constantly complains of dry mouth because she is not allowed to take anything PO (although she did admit to drinking icetea and have been seen drinking icechips) . Her other issues this admission include right pelvis infection (sp IR drainage on 08/01/16 followed by first hypotensive episode requiring ICU monitoring), right upper extremity swelling (due to intentional fall) that has now improved, with ortho following. She also developed BROOKLYNN most likely multifactorial in nature (BUN/Cr up to 66/2.9) prerenal and ATN - insults including hypotension, contrast, vancomycin, with nephrology following, and kidney functions improved. Lines: BLANCA drain d13 J tube d13 Proline (08/07/16) NG tube (08/10/16) Right pelvis catheter (08/01/16 - 08/17/16) Left pelvis catheter (08/11/16 - 08/17/16) Restrains UE discontinued after 3 days Extubated after 3 days A line removed after 4 days Orta (removed) Respiratory * Intubated 08/12 - 08/14 after the surgery Cardiovascular # Hypotension * Off levophed 08/14 645AM * IVF discontinued 08/14, consider diuresis for anasarca ID # Pelvic abscess sp IR drainage (right 08/01 and left 08/11, catheters removed 08/17) # Peritonitis due to gangrenous stomach (due to ischemia..cocaine? gastroparesis ? pressors?) - 08/11: [place] [address], VRE, enterobacter, yeast, lactobacillus. * Oxacillin started to cover MSSA on 08/01, discontinued on 08/10/16. Zosyn started on 08/10/16 to cover pseudomonas. Fluconazole 400 IV q8 started on 08/12 for yeast in ascitic fluid, changed to daily when kidney functions improved. Zosyn discontinued and meropenem started on 08/13. Continue meropenem and fluconazole * Plan for repeat CT pelvis prior to discharge * dilaudid 0.6 q4 p . cannot start lyrica as meds cannot be given through ng tube # S/P partial gastrectomy for gangrenous stomach, with J tube * Tube feeding as per surgery and nutrition * Continue IV protonix , sucralfate * Appreciate surgery input * NG tube low wall suction. GIVE NOTHING THROUGH NG TUBE other than sucralfate ( but pt noncompliant) * Chloroseptic spray for throat pain * CTA abomin and pelvis releaved 1. The left subdiaphragmatic abscess has been drained surgically. Phlegmon persists. This results in some displacement of the stomach medially. 2. Numerous encapsulated fluid collections throughout the abdomen and pelvis and right thigh as described above. 3. Encapsulated intrapleural collection right hemithorax. Small bilateral effusions. * PO meds have been discontinued including lyrica, lexapro, haldol, na bicarb, senna, docusate, tylenol, simethicone. These meds would need to be reordered once pt can eat. # Necrotic decubitus ulcer - Excised at bedside 08/10 - Not likely to be source of infection # Right shoulder pain with decreased passive and active ROM (improving) # Right elbow swelling (improving) - Xray and US obtained * Refuses MRI unless done under anesthesia * Appreciate Ortho (Dr. Schulz) input * Right upper extremity and right lower extremity venous Doppler study to rule out any DVT Results: Negative for right upper extremity deep vein thrombosis. Complex 12.5 cm collection at the level of the elbow. Recommend clinical correlation. If further imaging is clinically appropriate, then MRI without and with contrast would be recommended for further evaluation. * I&D was done by PA 08/23, nurse will call for dressing change #Right leg seemed slightly bigger in size than the left one. He has right lower extremity Doppler ultrasound was ordered to rule out DVT, patient refused the study despite giving pain medication. #Will obtain CT with IV and oral contrast to rule out DVT and fluid collection in abdomen pelvis and lower extremity, patient refused the study today and wanted to try tomorrow # The scalp lesion popped 08/02 PM, with purulent drainage noted - Alopecia noted Heme # Anemia - 08/12/16: received 1 PRBC - 08/18/16: Hb down to 7.3, transfused 1 unit , hb came up to 9.1 * Follow CBC Metabolic # Acute kidney injury resolved * Continue to follow kidney functions * Appreciate nephro input # Hyponatremia * Continue to follow sodium level * Appreciate nephro input # Hyperkalemia * Continue to monitor Psych # Depression # Hx of drug abuse * On the W-10 and the discharge instructions, please ask the receiving facility/ ECF to call and make an intake appointment at [facility], [address] [place] [address], [place] when her discharge date is known, . * Cannot go home with proline, must go to rehab # Agitation * IV benadryl PRN Endocrine # Diabetes mellitus * Novolog tidac/qhs * Levemir 60 bid ON HOLD,consider restarting at lower dose * Watch blood sugar closely * Consider endo consult Alimentary * On tube feeds Skin # Decubitus ulcer * Wound consult with Dr. English appreciated, is getting Santyl dressing daily for her low back wound * Consulted surgery, necrotic patch excised at bedside, no deep tracking or necrosis or fasciitis noted * Consider rectal tube placement Diet: tube feeds DVT ppx: alps and heparin FC Consults: ID, surgery, renal, psych, ortho, PT, wound, nutrition Problem List: 1. Pelvic abscess Pain Ratin Pain Location: Abdomen and right elbow Pain Goal: Pain 4 or less Pain Plan: severe pain pathway Tomorrow's Labs & Rationales: COLLAR CUTTER, BMP RAFIA FARFAN,ERIBERTO 08/24/16 1135: Attending MD Review Statement Attending Statement Attending MD Statement: examined this patient, discuss w/resident/PA/HE[employer]CRAFT MECHANIC, agreed w/resident/PA/[employer] MECHANIC, reviewed EMR data (avail), discussed with nursing, amended to note Attending Assessment/Plan: Patient seen and examined. Doppler of the right lower extremity was unsuccessful yesterday due to significant pain during the procedure despite premedication. On examination the right lower extremity remains markedly swollen compared to the left with 2-3+ pitting edema. Distal pulses are difficult to palpate due to the significant edema. The limb however shows no evidence of ischemia. She is also particularly swollen and tender in the right thigh. This physical examination, her prolonged hospital stay and CT abdomen findings of pelvic collection extending into the thigh raises concern for either deep venous thrombosis or impeded venous return due to mass effect from the collections. Case was discussed with the radiology service regarding obtaining a venogram to rule out DVT and access for mass effect as well as right thigh fluid collection. Radiologist however with 4 sets this study is a very high likely would've been inconclusive. His recommendations are to pursue ultrasound to rule out DVT and CT scan with by mouth and IV contrast. About 300 mL of purulent material was drained from the right upper extremity yesterday following my discussion with the orthopedic service. This morning that her right upper extremity dressing and her bed sheets underlying the area was completely soaked with purulent material. Recommendations: -Gen. surgery follow-up of the right upper extremity collection for dressing change and possible repeat drainage. -Patient does not wish to proceed with CT scan of the lower extremity today. She wishes to defer the procedure till tomorrow. I will reengage the patient again about attempting lower extremity Doppler possibly with more sedation. -Continue antibiotic and antifungal therapy. -ID follow-up appreciated. This will be discussed with the interventional radiology service tomorrow regarding further drainage of the other abdominal collections.
--- NOTE | 2016-08-24 09:47 | NUR ---
NSG NOTE: PT REFUSING AGAIN TO BE REPOSITIONED AND HAVE DSG TO BUTTOCKS CHANGED. PT ALSO REFUSING TO GET CLEANED UP BY MST. PT STATING "NOT NOW. MAYBE LATER." PT EDUCATED ON IMPORTANCE OF SKIN INTEGRITY PROTOCOL. WILL ATTEMPT TO CHANGE DSG AND CLEAN PT LATER IN THE DAY.
--- NOTE | 2016-08-24 13:10 | PN- General Surgery ---
Surgical Brief Attending Note Brief Attending Note: NO NEW RECOMMENDATIONS. SHE WANTS A SLEEPING PILL. DEFER BURSITIS TO ORTHO.
[2016-08-24 13:52] VITALS: BP 126/72
--- NOTE | 2016-08-24 19:47 | PN- Orthopedic ---
Subjective Subjective: Pt seen and examined by Dr Schulz Complaining of right elbow pain - although lying directly on her right arm. Objective Vital Signs and I&Os Vital Signs Date Time Temp Pulse Resp B/P Pulse O2 O2 Flow FiO2 Ox Delivery Rate 08/24 1352 98.1 114 20 126/72 93 Room Air 08/24 0653 98.0 104 20 106/52 99 Nasal 2.0L Cannula 08/24 0000 Nasal 2.0L Cannula 08/239 98.6 124 20 102/58 92 Nasal 2.0L Cannula Intake & Output 08/24 1600 08/24 0000 08/23 1600 08/23 0000 Intake Total 604 615 5143 60 225 Output Total 540 160 665 690 635 Balance 300 680 375 -630 -410 Intake, IV 200 60 Intake, Oral 0 0 Intake, Other 0 Intake, 225 TPN/PPN Intake, Tube 600 600 600 Feeding Intake, Tube 240 240 240 Irrigant Number 0 Bowel Movements Output, 90 120 165 10 180 Drainage Output, 50 40 50 80 5 Gastric Drainage Output, Other 600 Output, Urine 400 450 450 Physical Exam: Dressing changed Purulent drainage noted Packing left in place Outer dressing of fluff/ABD/kerlex replaced Assessment/Plan Assessment/Plan 41 yo female with right elbow cellulitis s/p I and D at bedside yesterday. Recommend packing changes every other day Outer dressing changed daily or more frequently as needed by nursing to keep dry. Recommend dressing of fluff/ABD/SERINA Recommend MRI of RUE to further evaluate
--- NOTE | 2016-08-24 20:44 | NUR ---
ALERT AND ORIENTED X 3. VITAL SIGNS STABLE. DENIES CHEST PAIN. + PULSES ON ROOM AIR. DSGS ARE C/D/I. MEDICATION GIVEN FOR DISCOMFORT PATIENT RESTING AT THIS TIME. WILL CONTINUE TO MONITOR
[2016-08-24 22:28] VITALS: BP 124/70
--- NOTE | 2016-08-24 22:44 | PN- Orthopedic ---
Subjective Subjective: Patient seen today for follow up of right elbow pain. Reports pain in elbow and arm and refuses to move right upper extremity. Patient tearful and asks repeatedly to be left alone. An ultrasound of the right upper extremity showed a complex fluid collection; I& D of right olecranon bursa performed by surgical ADI Cortes on 08/23/16. Per PA note, ~300mL purluent fluid drained from right posterior elbow. Packed with iodoform gauze and dressed. Request by General Surgery to reevaluate s/p I&D. Objective Vital Signs and I&Os Vital Signs Date Time Temp Pulse Resp B/P Pulse O2 O2 Flow FiO2 Ox Delivery Rate 08/24 2135 91 Room Air 08/24 1352 98.1 114 20 126/72 93 Room Air 08/24 0653 98.0 104 20 106/52 99 Nasal 2.0L Cannula 08/24 0000 Nasal 2.0L Cannula 08/23 2219 98.6 124 20 102/58 92 Nasal 2.0L Cannula Intake & Output 08/24 1600 08/24 0800 08/24 0000 08/23 1600 08/24 0700 08/23 0000 Intake Total 130 476 1075 60 225 Output Total 540 160 665 690 635 Balance 300 680 375 -630 -410 Intake, IV 200 60 Intake, Oral 0 0 Intake, Other 0 Intake, 225 TPN/PPN Intake, Tube 600 600 600 Feeding Intake, Tube 240 240 240 Irrigant Number 0 Bowel Movements Output, 90 120 165 10 180 Drainage Output, 50 40 50 80 5 Gastric Drainage Output, Other 600 Output, Urine 400 450 450 Physical Exam: Patient laying supine, tearful. Unwilling to participate in examination. RUE: bandage to RUE saturated with blood-tinged fluid External dressings removed; gauze and ABD saturated with blood-tinged, yellow- brown fluid Packing remains in posterior wound; difficult to evaluate due to patient's unwillingness to participate in examination. Tenderness over proximal forearm with surrounding cellulitis. No cellulitis of distal forearm, wrist, or hand but patient reports tenderness to even light touch Reports intact sensation to light touch over wrist/hand Gauze and ABD reapplied to right elbow and secured with kerlix Assessment/Plan Assessment/Plan 41yo F with multiple medical problems; orthopaedics asked to reevaluate right posterior elbow s/p bedside I&D of right septic olecranon bursitis by surgical PA. Drainage of ~300mL purulent material per note; cultures growing S. aureus, senstivities pending. 1. Recommend daily dressing change to include packing within wound. Please allow incision to stay open to allow for additional drainage. 2. Encouraged patient not to put direct pressue on the right posterior elbow; recommend elevation of right arm 3. Change external dressings if they become saturated 4. Follow up sensitivities and tailor antibiotics accordingly 5. Continue to monitor drainage and cellulitis. Attending MD Review Statement Attending Statement Attending MD Statement: examined this patient, discuss w/resident/PA/PAY PER CLICK STRATEGIST, reviewed images
--- NOTE | 2016-08-24 23:47 | NUR ---
COULD NOT COMPLETE DSG CHANGE TO R BUTTOCK DUE TO PATIENTS PAIN/REFUSAL. PATIENT CONTINUES TO REFUSE BED ALARM, RED SOCKS, AND ALPS
--- NOTE | 2016-08-25 04:25 | NUR ---
NSG NOTE: PT CONTINUES TO REFUSE REPOSITIONING THROUGHOUT THE NIGHT AND TO HAVE DRESSING TO BUTTOCKS REMOVED AND CHANGED. PT EDUCATED ON SKIN INTEGRITY PROTOCOL AND THE IMPORTANCE OF REPOSITIONING TO OFF LOAD PRESSURE POINTS. PT ALSO REFUSING BED LINENS AND INCONTINENCE PADS TO BE CHANGED AT THIS TIME. WILL CONTINUE TO ENCOURAGE REPOSITIONING.
--- NOTE | 2016-08-25 06:21 | NUR ---
NSG NOTE: THIS RN IN ROOM TO MEDICATE PT WHEN PT STATED "MY NG TUBE JUST FELL OUT." NGT COMPLETELY OUT OF PT AND LAYING ON BED. MD DIAZ CALLED AND MADE AWARE. PT ALSO REFUSING TO HAVE ANOTHER NGT PLACED AT THIS TIME. MST ALSO IN ROOM WITH PT AND OFFERED INCONTINENT CARE AND REPOSITIONING. PT REFUSING, STATING "NOT NOW, LATER." [facility].
[2016-08-25 06:22] VITALS: BP 104/52
--- NOTE | 2016-08-25 07:36 | PN- General Surgery ---
See Addendum Subjective Subjective: Patient complain of pain to the abdomen and right elbow, no change in symptoms. Denies fever or flulike illness. She states her NG tube"fell out" early this morning. She requested not be placed again. Long discussion with patient regarding need for NG tube. Objective Vital Signs and I&Os Vital Signs Date Time Temp Pulse Resp B/P Pulse O2 O2 Flow FiO2 Ox Delivery Rate 08/25 621 98.9 106 20 104/52 92 08/24 2228 98.1 111 20 124/70 95 Room Air 08/24 2135 91 Room Air 08/24 1352 98.1 114 20 126/72 93 Room Air Intake & Output 08/25 0000 08/24 1600 08/24 0000 08/23 1600 Intake Total 840 963 248 0225 Output Total 40 40 540 160 665 Balance 800 -40 300 680 375 Intake, IV 200 Intake, Oral 0 0 Intake, Other 0 Intake, Tube 600 600 600 600 Feeding Intake, Tube 240 240 240 240 Irrigant Number 1 0 Bowel Movements Output, 40 40 90 120 165 Drainage Output, 0 50 40 50 Gastric Drainage Output, Urine 400 450 Physical Exam: Well-developed well-nourished , moaning in pain. HEENT: Atraumatic, extraocular motion intact Neck: Supple, no lymphadenopathy Respiratory: No respiratory distress lungs clear anterior Heart: Mild tachycardia Abdomen: Upper abdominal transverse incision is healing well. Minimal discharge noted left lateral region. Thin white/Purulent drainage noted in bulb syringe, moderate discharge the dressing around BLANCA site Extremities: +1 pitting lower extremity edema, Right upper extremity right elbow, dressing removed it was saturated with purulent discharge. Still with moderate erythema and swelling to the right upper extremity, no new pockets of fluctuance noted, overall at his improved significantly since I&D 2 days ago. Packing was removed and small amount of half-inch iodoform gauze packing was placed to patient's tolerance. Wound is still open and draining. ABDs and Kit wrap applied to the right upper extremity. Neurovascularly intact. No suspicion of septic elbow on exam Neuro: Alert and oriented x3 Psych: Appears anxious, normal memory normal judgment. Skin: Warm and dry, no rash on exposed skin Results Last 48 Hours of Labs: Laboratory Tests 08/25 08/24 0616 0638 Chemistry Sodium (137 - 145 mmol/L) Pending 133 L Potassium (3.5 - 5.1 mmol/L) Pending 5.0 Chloride (98 - 107 mmol/L) Pending 100 Carbon Dioxide (22 - 30 mmol/L) Pending 29 Anion Gap (5 - 16) Pending 3 L BUN (7 - 17 mg/dL) Pending 24 H Creatinine (0.5 - 1.0 mg/dL) Pending 0.7 Estimated GFR (>60 ml/min) > 60 BUN/Creatinine Ratio (7 - 25 %) Pending 34.3 H Hematology CBC w Diff Pending MAN DIFF ORDERED WBC (4.8 - 10.8 /CUMM) Pending 10.0 RBC (4.20 - 5.40 /CUMM) Pending 3.09 L Hgb (12.0 - 16.0 G/DL) Pending 8.7 L Hct (37 - 47 %) Pending 26.8 L MCV (81.0 - 99.0 FL) Pending 86.5 MCH (27.0 - 31.0 PG) Pending 28.1 RDW (11.5 - 14.5 %) Pending 21.0 H Plt Count (130 - 400 /CUMM) Pending 303 MPV (7.4 - 10.4 FL) Pending 8.2 Gran % (42.2 - 75.2 %) 72.6 Lymphocytes % (20.5 - 51.1 %) 12.4 L Monocytes % (1.7 - 9.3 %) 5.7 Eosinophils % (0 - 5 %) 8.1 H Basophils % (0.0 - 2.0 %) 1.2 Absolute Granulocytes (1.4 - 6.5 /CUMM) 7.2 H Segmented Neutrophils (42.2 - 75.2 %) 62 Band Neutrophils (0.0 - 5.0 %) 15 H Absolute Lymphocytes (1.2 - 3.4 /CUMM) 1.2 Lymphocytes (20.5 - 51.1 %) 10 L Monocytes (1.7 - 9.3 %) 5 Absolute Monocytes (0.10 - 0.60 /CUMM) 0.6 Eosinophils (0 - 5.0 %) 7 H Absolute Eosinophils (0.0 - 0.7 /CUMM) 0.8 Basophils (0.0 - 2.0 %) 1 Absolute Basophils (0.0 - 0.2 /CUMM) 0.1 Platelet Estimate (ADEQUATE) VERIFIED BY SMEAR Polychromasia 1+ Anisocytosis 1+ Stomatocytes 1+ PUBS MCHC (33.0 - 37.0 G/DL) Pending 32.5 L Assessment/Plan Assessment/Plan Postop day #13 status post partial gastrectomy due to gangrenous stomach -Will discuss with Dr. Castellanos, hold off on replacing NG tube this morning. Plan for IR guided aspiration of multiple abdominal collections today. Keep nothing by mouth. Continue antibiotics. Postprocedure day #2 status post I&D and partial bursectomy of the right elbow septic olecranon bursa -Dressing change, packing removed in its entirety, small amount of packing was replaced to patient's tolerance. Overall is improving. Culture shows staph so far, likely MRSA, follow cultures and defer to infectious disease for antibiotics. Dressing changes daily. Elevation and warm compresses
--- NOTE | 2016-08-25 07:45 | PN- Housestaff ---
HELLEN FARFAN,RENAN 08/25/16 0745: Subjective Follow-up For: Status post partial gastrectomy for necrotic stomach, status post incision and drainage for septic bursitis on right elbow, status post incision and drainage with drain placement for pelvic abscess Complaints: pain over abdomen and right elbow Subjective: I followed up and examined the patient today. Surgical PA was also in the room, changing her dressing from the right elbow incision and drainage site. She was complaining of pain over her right elbow, and all over her abdomen, her vitals have been stable and no issues overnight. She still has BLANCA drain, NG tube, and place, and the erythema over her right arm has decreased significantly following the drainage. Over the weekend, her right elbow was drained for purulent/septic bursitis, and surgical PA is trying to get an appointment with IR regarding drainage of her abdominal abscesses today. She is still NPO for now, but her NG tube fell off earlier this morning, and we are trying to place a new one in. Review of Systems Constitutional: Reports: no symptoms. Cardiovascular: Reports: no symptoms. Respiratory: Reports: no symptoms. Gastrointestinal: Reports: see HPI, abdominal pain (all over, not new). Genitourinary: Reports: no symptoms. Musculoskeletal: Reports: see HPI. Skin: Reports: see HPI, erythema (rt arm, decreased). Neurological/Psychological: Reports: no symptoms, anxiety. Objective Last 24 Hrs of Vital Signs/I&O Vital Signs Date Time Temp Pulse Resp B/P Pulse O2 O2 Flow FiO2 Ox Delivery Rate 08/25 0622 98.9 106 20 104/52 92 08/24 2228 98.1 111 20 124/70 95 Room Air 08/24 2135 91 Room Air 08/24 1352 98.1 114 20 126/72 93 Room Air Intake & Output 08/25 1600 08/25 0800 08/25 0000 Intake Total 840 Output Total 40 40 Balance 800 -40 Intake, Tube 600 Feeding Intake, Tube 240 Irrigant Number 1 Bowel Movements Output, 40 40 Drainage Output, 0 Gastric Drainage Physical Exam General Appearance: Alert, Oriented X3, Cooperative, Mild Distress Other Physical Findings: General: obese patient, in mild distress, anxious Head: Normocephalic, atraumatic Eyes: Pupils normal in size, regular, reacting to light and accommodation, EOM normal Ears: B/l normal on inspection Nose: Normal on inspection Throat/mouth: Moist mucosa Neck: Supple, full range of motion, no thyromegaly Chest wall has Proline in situ Heart: Regular rate, regular rhythm Lung: Normal breath sound bilaterally, Added sound not heard Abd: Soft, mild tenderness all over abdomen, dressing in situ, incision site has red border s/o cellulitis but no pus draining currently, BLANCA drain has purulent drainage no distention appreciated Back: Normal range of motion Extremities: right forearm redness and swelling has markedly reduced, no more tense, there is a wound gap with a gauze in place over dorsal aspect of her right proximal forearm; b/l pedal edema R>L, Distal neurovascular intact Neurologic: Alert, oriented x3, Cranial exam grossly intact, Speech is clear and coherent Skin: Warm and dry, see ext exam above Current Medications: Current Medications Sig/Shahla Start time Last Medication Dose Route Stop Time Status Admin Acetaminophen 1,000 MG Q6P PRN 08/07 1630 AC 08/21 N/A 1 UNIT IV 1127 Albuterol Sulfate 3 ML Q4 HRS NEEDED PRN 08/24 1130 AC 08/24 INH 2135 Albuterol Sulfate 2 PUF Q4P PRN 07/30 2200 AC 08/07 INH 0914 Benzocaine/Menthol 1 RAYMUNDO Q2P PRN 08/11 2245 AC PO Collagenase 1 DEMETRA DAILY 08/04 1000 AC 08/25 TOP 0923 Dextrose/Sodium 1,000 ML Q13H 08/26 0000 AC Chloride IV 08/26 1259 Diclofenac Sodium 1 DEMETRA TID PRN 07/30 1145 AC 08/05 TOP 2142 Diphenhydramine HCl 50 MG .STK-MED ONE 08/24 2225 DC IM 08/24 2226 Diphenhydramine HCl 50 MG .STK-MED ONE 08/24 1531 DC IM 08/24 1532 Diphenhydramine HCl 50 MG Q6P PRN 08/07 1630 AC 08/25 IV 1029 Fluconazole 400 MG DAILY 08/15 1000 AC 08/25 Sodium Chloride 200 ML IV 0913 Heparin Sodium 5,000 UNIT Q8 08/12 0600 AC 08/25 (Porcine) SC 0559 Hydrocortisone 1 DEMETRA TID 08/24 2300 AC 08/25 EXT 0923 Hydromorphone HCl 1 MG Q4P PRN 08/25 0945 AC IV Hydromorphone HCl 0.6 MG Q4-PRN PRN 08/15 1045 DC 08/25 IV 0812 Insulin Human Regular 2 UNITS .STK-MED ONE 08/25 0031 DC IV 08/25 0032 Insulin Human Regular 4 UNITS .STK-MED ONE 08/24 1802 DC IV 08/24 1803 Insulin Human Regular 4 UNITS .STK-MED ONE 08/24 1200 DC IV 08/24 1201 Insulin Human Regular 0 Q6 08/10 1800 AC 08/25 SC 0603 Lidocaine 1 PAT DAILY 07/28 1800 AC 07/28 EXT 2004 Meropenem 1 GM IQ8 08/13 1600 AC 08/25 IV 0911 Miconazole Nitrate 1 DEMETRA AT BEDTIME 07/29 0130 AC 08/17 VAG 2234 Nystatin 1 DEMETRA TID PRN 08/12 0730 AC 08/20 TOP 1001 Pantoprazole Sodium 40 MG DAILY 08/11 1802 AC 08/25 IV 0914 Phenol 2 SPRAY Q2P PRN 08/18 0800 AC 08/18 EXT 0834 Sucralfate 1 GM Q6 08/16 0830 AC 08/25 PO 0559 Last 24 Hrs of Lab/Haris Results Last 24 Hrs of Labs/Mics: Laboratory Tests 08/25/16 0616: Anion Gap 7, Estimated GFR > 60, BUN/Creatinine Ratio 35.7 H, CBC w Diff MAN DIFF ORDERED, RBC 3.09 L, MCV 86.2, MCH 28.3, RDW 21.8 H, MPV 8.4, Gran % 76.9 H, Lymphocytes % 11.1 L, Monocytes % 5.7, Eosinophils % 5.6 H, Basophils % 0.7, Absolute Granulocytes 8.4 H, Segmented Neutrophils 68, Band Neutrophils 19 H, Absolute Lymphocytes 1.2, Lymphocytes 9 L, Monocytes 4, Absolute Monocytes 0.6, Absolute Eosinophils 0.6, Absolute Basophils 0.1, Platelet Estimate ADEQUATE, Polychromasia 1+, Stomatocytes FEW, PUBS MCHC 32.8 L Assessment/Plan Assessment: 40-year-old lady with a PMH of diabetes, previous right-sided hemorrhagic pleural effusion S/P Pleurx catheter, lytic therapy 2, previous MSSA sepsis likely secondary to pro-line catheter, previous necrotizing fasciitis of the perineum, left pararenal abscess, osteomyelitis of pubic bone, polysubstance abuse, depression, opiate dependence who presented with complaints of right-sided hip pain, admitted to , found to have pelvic abscess, that was drained by Dr. Sam on 08/01/16. Post procedure, she was hypotensive and was transferred to ICU. She received levophed for 1 day, subsequently her BP was stable and pt was transferred back to . The pt was again hypotensive, and lethargic, and was transferred to ICU. She again was on levophed for a couple of days with BP stable without pressors, and was transferred back to . For the third time, she was again hypotensive requiring another ICU transfer. It has been noted that her BP drops when she receives dilaudid. She was placed on levophed for blood pressure support. The CT findings was concerning for acute abdomen due to perforation vs ileus vs obstruction (tiny amount of free air similar to prior imaging, gastric pneumatosis, ?perforation gastric ulcer, diffusely tender abdomen, no bowel sounds heard, large amount of NG tube output bright yellow --> muddy green --> brown). Her lactic acid elevated up to 2.7, with poor UO. With IVF, her UO improved. There was fluid collection in the left pelvis, that was drained by Dr. Dunaway and put out cloudy yellow --> brown fluid collection in the pelvis (similar in color and consistency to NG tube fluid), most likely representing infected ascitic fluid, consistent with peritonitis. We were concerned for perforation in the stomach due to image findings of gastric pneumatosis. Gastrograffin studies done and showed leakage of contrast out of the stomach. Pt was taken to OR on 08/12/[address] Trammell for exploratory laparotomy with partial gastrectomy for gangrenous stomach and J tube insertion. There was no perforation found, but seeping of fluid through the gangrenous wall into the peritoneal space is entirely possible causing peritonitis. The etiology of the the gangrene is unknown, could be cocaine? vasopressors? hypotension? She was started on tube feeds and have been tolerating it well, except she constantly complains of dry mouth because she is not allowed to take anything PO (although she did admit to drinking icetea and have been seen drinking icechips) . Her other issues this admission include right pelvis infection (sp IR drainage on 08/01/16 followed by first hypotensive episode requiring ICU monitoring), right upper extremity swelling (due to intentional fall) that has now improved, with ortho following. She also developed BROOKLYNN most likely multifactorial in nature (BUN/Cr up to 66/2.9) prerenal and ATN - insults including hypotension, contrast, vancomycin, with nephrology following, and kidney functions improved. Lines: BLANCA drain in place with purulent fluid J tube in place Proline (08/07/16) NG tube (08/10/16) fell off this AM, replacing it today Right pelvis catheter (08/01/16 - 08/17/16) Left pelvis catheter (08/11/16 - 08/17/16) Restrains UE discontinued after 3 days Extubated after 3 days, was intubated for surgery A line removed after 4 days Orta (removed) Respiratory * Intubated 08/12 - 08/14 after the surgery Cardiovascular # Hypotension * Off levophed 08/14 645AM * IVF discontinued 08/14, consider diuresis for anasarca ID # Pelvic abscess sp IR drainage (right 08/01 and left 08/11, catheters removed 08/17) # Peritonitis due to gangrenous stomach (due to ischemia..cocaine? gastroparesis ? pressors?) Patient underwent partial gastrectomy due to gangrenous stomach, and has a BLANCA tube drain in place which is collecting copious amount of purulent fluid every day * -Patient is currently on meropenem and fluconazole, pending further culture reports # S/P partial gastrectomy for gangrenous stomach, with J tube Patient is complaining of abdominal pain and the BLANCA drain has been purulent with copious amount of collections in the past few days. She underwent CAT scan of her abdominal pelvis on 08/23/2016 which revealed multiple intra-abdominal collections, and is now planned to be trained and study for the same tomorrow morning. * -Nothing by mouth/hold tube feedings from midnight pending CT-guided aspiration tomorrow morning * -Of note, PO meds have been discontinued including lyrica, lexapro, haldol, na bicarb, senna, docusate, tylenol, simethicone. These meds would need to be reordered once pt can eat. # Necrotic decubitus ulcer * - Excised at bedside 08/10 * - Not likely to be source of infection # Right shoulder pain with decreased passive and active ROM (improving) # Right elbow swelling (improving) Patient had been complaining of right arm pain and swelling and redness since her admission this time, which was investigated earlier and was found to have minimal collection in right olecranon bursa not amenable to drainage, over time however, she had much larger swelling and on 08/23/16 she underwent ultrasound to rule out any DVT, but instead was found to be having 12.5 cm collection, which was drained over the weekend (08/23/16) and has been evaluated by orthopedics as well. * -Currently, she has gauze in the I&D site of right forearm, redness and swelling has decreased, surgical PA is taking care of the wound every day, will continue to follow their recommendations. #Right leg seemed slightly bigger in size than the left one. Patient refused right lower extremity ultrasound Doppler to rule out DVT on 12/2016, and 08/24/2016, and thus has been planned to undergo CT scan of her right lower extremity to rule out DVT as well. * Patient can undergo the procedure tomorrow at the same time as she is having a CT-guided abdominal collection drainage as well # Scalp lesion popped 08/02 PM, with purulent drainage noted - Alopecia noted in the area, no inflammation/fluctuance/collection Heme # Anemia - 08/12/16: received 1 PRBC - 08/18/16: Hb down to 7.3, transfused 1 unit , hb came up to 9.1 * Follow CBC Metabolic # Acute kidney injury resolved * Continue to follow kidney functions * Appreciate nephro input # Hyponatremia * Continue to follow sodium level, which has been running low * Appreciate nephro input # Hyperkalemia * Continue to monitor, is 5.3 today Psych # Depression # Hx of drug abuse * On the W-10 and the discharge instructions, please ask the receiving facility/ ECF to call and make an intake appointment at [facility], [address] [place] [address] when her discharge date is known, . * Cannot go home with proline, must go to rehab # Agitation * IV benadryl PRN Endocrine # Diabetes mellitus * Levemir 60 bid ON HOLD,consider restarting at lower dose * Patient is on every 6 hours regular insulin scale * Watch blood sugar closely * Consider endo consult Alimentary * On tube feeds Skin # Decubitus ulcer * Wound consult with Dr. English appreciated, is getting Santyl dressing daily for her low back wound * Consulted surgery, necrotic patch excised at bedside, no deep tracking or necrosis or fasciitis noted * Consider rectal tube placement Diet: tube feeds DVT ppx: alps and heparin FC Consults: ID, surgery, renal, psych, ortho, PT, wound, nutrition Problem List: 1. Gastric perforation 2. S/P gastrectomy 3. Pelvic abscess 4. Decubitus ulcer 5. Pubic ramus fracture Pain Ratin Pain Location: abdomen, right forearm Pain Goal: Pain 4 or less Pain Plan: increased Dilaudid today Still has Julyryl that's working for her Tomorrow's Labs & Rationales: CBC, BEP, body fluids RAFIA FARFAN,ERIBERTO 08/25/16 1415: Attending MD Review Statement Attending Statement Attending MD Statement: examined this patient, discuss w/resident/PA/CARD SORTER, agreed w/resident/PA/CARD SORTER, reviewed EMR data (avail), discussed with nursing, reviewed images, amended to note Attending Assessment/Plan: Patient seen and examined. Complains of increased pain in the right elbow following manipulation for dressing changes. She is afebrile hemodynamically stable. NG tube was dislodged yesterday and is difficult to replace. Abdominal BLANCA drain remains in place draining copious amounts of purulent fluid. Right upper extremity remains swollen and nontender with dressing so with purulent material. Right lower extremity remains swollen as well. There is no clinical evidence of ischemia. Recommendations: -Case was discussed with orthopedic service today. No further recommendations for drainage of right upper extremity abscess. Dressing changes daily and as needed. -Multiple intra-abdominal abscesses will be drained by the interventional radiology service tomorrow. Tube feedings will be held after midnight. She will be started on IV fluids at that time. -While she is in the interventional radiology suite, CT imaging will be done of the right lower extremity to rule out abscess and mass effect. -Continue antibiotic therapy as recommended by the ID service. -In view of her recent I&D and plan procedures recommend increasing dose of Dilaudid to 1 mg every 4 hours when necessary pain.
[2016-08-25 07:49] LABS: ABSOLUTE BASOPHIL COUNT 0.1 /CUMM (0.0-0.2); ABSOLUTE EOSINOPHIL COUNT 0.6 /CUMM (0.0-0.7); ABSOLUTE GRANULOCYTE CT 8.4 /CUMM (1.4-6.5); ABSOLUTE LYMPH COUNT 1.2 /CUMM (1.2-3.4); ABSOLUTE MONOCYTE COUNT 0.6 /CUMM (0.10-0.60); BASOPHIL % 0.7 % (0.0-2.0); EOSINOPHIL % 5.6 % (0-5); GRANULOCYTE % 76.9 % (42.2-75.2); HEMATOCRIT 26.6 % (37-47); MEAN CORPUSCULAR HGB 28.3 PG (27.0-31.0); MEAN CORPUSCULAR HGB CONC 32.8 G/DL (33.0-37.0); MEAN CORPUSCULAR VOLUME 86.2 FL (81.0-99.0); MEAN PLATELET VOLUME 8.4 FL (7.4-10.4); PLATELET COUNT 328 /CUMM (130-400); RBC DISTRIBUTION WIDTH 21.8 % (11.5-14.5); RED BLOOD CELL CT 3.09 /CUMM (4.20-5.40); WHITE BLOOD CELL COUNT 10.9 /CUMM (4.8-10.8)
--- NOTE | 2016-08-25 08:06 | NUR ---
NSG NOTE: PT CRYING IN PAIN. DRESSING TO R ELBOW JUST REPACKED BY SURGICAL PA. PER MD URRUTIA OK FOR PT TO GET IV DILAUDID ONE HOUR EARLY. WILL MONITOR.
--- NOTE | 2016-08-25 11:02 | PN- Infect Dx ---
Subjective Subjective: Afebrile. She complains of abdominal pain, right elbow pain and right hip pain Objective Last 24 Hrs of Vital Signs/I&O Vital Signs Date Time Temp Pulse Resp B/P Pulse O2 O2 Flow FiO2 Ox Delivery Rate 08/25 0622 98.9 106 20 104/52 92 08/24 2228 98.1 111 20 124/70 95 Room Air 08/24 2135 91 Room Air 08/24 1352 98.1 114 20 126/72 93 Room Air Intake & Output 08/25 1600 08/25 0800 08/25 0000 Intake Total 840 Output Total 40 40 Balance 800 -40 Intake, Tube 600 Feeding Intake, Tube 240 Irrigant Number 1 Bowel Movements Output, 40 40 Drainage Output, 0 Gastric Drainage Physical Exam Other Physical Findings: She appears comfortable in no acute distress Chest Pro-Line in the left upper chest with no inflammation at the site Lungs are clear Heart regular rhythm with no murmur Abdomen is soft, obese, tender on normal palpation diffusely, with positive bowel sounds; BLANCA drain remains in place with purulent drainage Extremities right lower extremity and hip resistant to any movement, with right lower extremity swelling compared to the left; right upper extremity dressing in place Results Last 24 Hours of Lab Results: Laboratory Tests 08/25 06 Chemistry Sodium (137 - 145 mmol/L) 134 L Potassium (3.5 - 5.1 mmol/L) 5.3 H Chloride (98 - 107 mmol/L) 97 L Carbon Dioxide (22 - 30 mmol/L) 30 Anion Gap (5 - 16) 7 BUN (7 - 17 mg/dL) 25 H Creatinine (0.5 - 1.0 mg/dL) 0.7 Estimated GFR (>60 ml/min) > 60 BUN/Creatinine Ratio (7 - 25 %) 35.7 H Hematology CBC w Diff MAN DIFF ORDERED WBC (4.8 - 10.8 /CUMM) 10.9 H RBC (4.20 - 5.40 /CUMM) 3.09 L Hgb (12.0 - 16.0 G/DL) 8.7 L Hct (37 - 47 %) 26.6 L MCV (81.0 - 99.0 FL) 86.2 MCH (27.0 - 31.0 PG) 28.3 RDW (11.5 - 14.5 %) 21.8 H Plt Count (130 - 400 /CUMM) 328 MPV (7.4 - 10.4 FL) 8.4 Gran % (42.2 - 75.2 %) 76.9 H Lymphocytes % (20.5 - 51.1 %) 11.1 L Monocytes % (1.7 - 9.3 %) 5.7 Eosinophils % (0 - 5 %) 5.6 H Basophils % (0.0 - 2.0 %) 0.7 Absolute Granulocytes (1.4 - 6.5 /CUMM) 8.4 H Segmented Neutrophils (42.2 - 75.2 %) 68 Band Neutrophils (0.0 - 5.0 %) 19 H Absolute Lymphocytes (1.2 - 3.4 /CUMM) 1.2 Lymphocytes (20.5 - 51.1 %) 9 L Monocytes (1.7 - 9.3 %) 4 Absolute Monocytes (0.10 - 0.60 /CUMM) 0.6 Absolute Eosinophils (0.0 - 0.7 /CUMM) 0.6 Absolute Basophils (0.0 - 0.2 /CUMM) 0.1 Platelet Estimate (ADEQUATE) ADEQUATE Polychromasia 1+ Stomatocytes FEW PUBS MCHC (33.0 - 37.0 G/DL) 32.8 L Last 24 Hours of Haris Results: Right olecranon bursa culture August 23 positive for Staph aureus sensitive to Oxacillin Assessment/Plan Impression: Multiple encapsulated fluid collections throughout the abdomen, pelvis and right thigh seen on the recent CT scan, most of which likely represent complications of her surgery 13 days ago for a gangrenous stomach with perforation, for which she remains on Meropenem and Fluconazole, but with the right hip/thigh/gluteal process, including possible septic arthritis, most likely residual from her pelvic abscess which was identified on admission and which was partially drained with a catheter inserted 24 days ago and removed 8 days ago. She underwent aspiration of 300 mL of purulent fluid from the right olecranon bursa 2 days ago , with Staph aureus isolated from this culture and this may warrant further drainage if it recurs. Have reviewed her CT findings with IR, with plans for possible aspiration and drainage of the multiple collections as well as the right hip joint later today, though this may need to be deferred per Anesthesia because her J-tube feedings were not held. Her CT findings are also suspicious for a persistent leak at the surgical site, with no surgical intervention apparently planned for this at this time. The findings on the recent CT scan of a loculated rim-enhancing fluid collection in the lower right hemithorax are chronic and of unclear significance. This was never felt to be infected but, given evidence of infection in multiple other areas, seeding of this collection is possible and further evaluation and intervention of this collection may need to be considered. Suggestion: 1. Await IR drainage of the multiple abdominal and pelvic collections as well as aspiration of the right hip joint 2. Further management of the right hip and right olecranon bursa per Orthopedics 3. Will need to consider further evaluation/intervention of the right chest 4. Continue Meropenem and Fluconazole pending above
[2016-08-25 14:24] VITALS: BP 102/64
[2016-08-25 22:10] VITALS: BP 96/42
[2016-08-26 06:15] VITALS: BP 100/58
--- NOTE | 2016-08-26 07:19 | PN- Housestaff ---
HIRAM FARFAN,DERECK 08/26/16 0719: Subjective Follow-up For: Partial gastrectomy Septic bursitis Abdominal/pelvic abscesses Subjective: Patient seen and examined. She is seen sitting upright in bed resting comfortably. She appears to be in no acute distress. She admits to "feeling like crap" but states that her pain is well controlled as long she gets her regular doses of intravenous Dilaudid. She is tolerating her tube feeds well. She understands the current plan to proceed with interventional radiology is plan to place drains for her identified multiple pelvic abscesses that will occur tomorrow, she has no further questions at this time. She denies any further subjective complaints. Additionally she denies any headache, fever, chills, chest pain, palpitations, shortness breath, cough, nausea, vomiting, diarrhea. No overnight events reported. Review of Systems Constitutional: Reports: see HPI. Objective Last 24 Hrs of Vital Signs/I&O Vital Signs Date Time Temp Pulse Resp B/P Pulse O2 O2 Flow FiO2 Ox Delivery Rate 08/26 1509 98.3 104 22 121/52 91 Room Air 08/26 1409 92 Room Air Room Air 08/26 0758 94 08/26 0615 98.9 113 22 100/58 93 Room Air 08/25 2210 98.6 106 22 96/42 93 08/25 2109 94 Room Air Room Air Intake & Output 08/26 1600 08/26 0800 08/26 0000 Intake Total 600 1440 420 Output Total 175 90 261 Balance 425 1350 159 Intake, IV 600 600 Intake, Oral 0 Intake, Tube 0 600 300 Feeding Intake, Tube 0 240 120 Irrigant Number 1 2 2 Bowel Movements Output, 175 90 60 Drainage Output, Stool 1 Output, Urine 200 Physical Exam General Appearance: Alert, Oriented X3, Cooperative, No Acute Distress Other Physical Findings: General -well-developed, well-nourished morbidly obese woman in no acute distress HEENT - NCAT, PERRL, EOMI, anicteric sclera Cardio - S1, S2 w/o murmurs/gallops/rubs Resp - CTA bilaterally w/o wheezing/rhochi/crackles GI - soft, obese, mild diffuse tenderness, nondistended, bowel sounds present, healing surgical incisions with minimal surrounding erythema without induration or drainage, BLANCA drain purulent drainage Neuro - Awake and alert, CN II - XII grossly intact Extremities - no edema, no cyanosis/clubbing/edema, right upper extremity wrapped in sterile surgical dressing without any evidence of drainage with pulses intact in the extremity Current Medications: Current Medications Sig/Shahla Start time Last Medication Dose Route Stop Time Status Admin Acetaminophen 1,000 MG Q6P PRN 08/07 1630 AC 08/21 N/A 1 UNIT IV 1127 Albuterol Sulfate 3 ML Q4 HRS NEEDED PRN 08/24 1130 AC 08/24 INH 2135 Albuterol Sulfate 2 PUF Q4P PRN 07/30 2200 AC 08/07 INH 0914 Benzocaine/Menthol 1 RAYMUNDO Q2P PRN 08/11 2245 AC PO Collagenase 1 DEMETRA DAILY 08/04 1000 AC 08/26 TOP 0500 Dextrose/Sodium 1,000 ML Q13H 08/26 0000 DC 08/26 Chloride IV 08/26 1259 0011 Diclofenac Sodium 1 DEMETRA TID PRN 07/30 1145 AC 08/05 TOP 2142 Diphenhydramine HCl 50 MG .STK-MED ONE 08/26 0555 DC IM 08/26 0556 Diphenhydramine HCl 50 MG .STK-MED ONE 08/25 2346 DC IM 08/25 2347 Diphenhydramine HCl 50 MG .STK-MED ONE 08/25 1627 DC IM 08/25 1628 Diphenhydramine HCl 50 MG Q6P PRN 08/07 1630 AC 08/26 IV 1029 Fluconazole 400 MG DAILY 08/15 1000 AC 08/26 Sodium Chloride 200 ML IV 0915 Heparin Sodium 5,000 UNIT Q8 08/12 0600 AC 08/26 (Porcine) SC 1501 Hydrocortisone 1 DEMETRA TID 08/24 2300 AC 08/26 EXT 1502 Hydromorphone HCl 0.4 MG ONCE ONE 08/26 0545 DC 08/26 IV 08/26 0546 0600 Hydromorphone HCl 1 MG Q4P PRN 08/25 0945 AC 08/26 IV 1501 Insulin Human Regular 1 UNITS .STK-MED ONE 08/26 0555 DC IV 08/26 0556 Insulin Human Regular 0 Q6 08/10 1800 AC 08/26 SC 0601 Lidocaine 1 PAT DAILY 07/28 1800 AC 07/28 EXT 2004 Meropenem 1 GM IQ8 08/13 1600 AC 08/26 IV 0738 Miconazole Nitrate 1 DEMETRA AT BEDTIME 07/29 0130 AC 08/17 VAG 2234 Nystatin 1 DEMETRA TID PRN 08/12 0730 AC 08/20 TOP 1001 Pantoprazole Sodium 40 MG DAILY 08/11 1802 AC 08/26 IV 0738 Phenol 2 SPRAY Q2P PRN 08/18 0800 AC 08/18 EXT 0834 Sucralfate 1 GM Q6 08/16 0830 AC 08/26 PO 0510 Last 24 Hrs of Lab/Haris Results Last 24 Hrs of Labs/Mics: Laboratory Tests 08/26/16 0530: Anion Gap 9, Estimated GFR > 60, BUN/Creatinine Ratio 34.3 H, CBC w Diff NO MAN DIFF REQ, RBC 3.13 L, MCV 86.8, MCH 28.6, RDW 22.8 H, MPV 8.6, Gran % 76.1 H, Lymphocytes % 12.7 L, Monocytes % 5.4, Eosinophils % 5.3 H, Basophils % 0.5, Absolute Granulocytes 9.1 H, Absolute Lymphocytes 1.5, Absolute Monocytes 0.6, Absolute Eosinophils 0.6, Absolute Basophils 0.1, PUBS MCHC 33.0 Microbiology 08/26 804 BODY FLUID: Body Fluid Culture - COLB 08/26 804 BODY FLUID: Gram Stain - COLB 08/27 799 BODY FLUID: Body Fluid Culture - COLB 08/27 799 BODY FLUID: Gram Stain - COLB Assessment/Plan Assessment: Patient continues to remain afebrile while on intravenous meropenem, however has developed a mild leukocytosis to 11.9 today. Patient has multiple known abdominal abscesses that may be contributing to this leukocytosis. Patient is to have several drains placed by interventional radiology tomorrow to help alleviate these abscesses. Her tube feeds are held and patient will be maintained on D5 half-normal saline for nutrition. Gangrenous stomach status post partial gastrectomy -Gen. medicine -BLANCA drain in place -Fluconazole 400 mg IV daily -Meropenem 1 g IV every 8 hours -Infectious disease consult -Gen. surgery consult -Follow-up cultures and sensitivities Pelvic/abdominal abscesses CT abdomen/pelvis on 08/22/16 demonstrated numerous encapsulated fluid collections throughout the abdomen, pelvis, and right thigh in addition to an encapsulated intrapleural collection in the right hemithorax small bilateral effusions. -Hold tube feeds at midnight for IR procedure in morning -Nothing by mouth -Antibiotics as above History of polysubstance abuse/anxiety/depression On the W-10 and the discharge instructions, please ask the receiving facility/ ECF to call and make an intake appointment at [facility], [address] [place] [address] when her discharge date is known, . -Cannot go home with proline, must go to rehab Right shoulder pain/right elbow swelling/right elbow abscess status post arthrocentesis Arthrocentesis of elbow removed 300 mL of purulent material. Extremity remains wrapped in sterile surgical dressing without obvious drainage. Patient has free range of movement of the extremity and admits to mild pain. -Follow-up fluid collection cultures Decubitus ulcer -Wound care consult -Local wound care per wound care consult recommendations Diabetes mellitus -Accu-Cheks 3 times a day before meals/at bedtime -Hold oral hypoglycemics -Levemir 60 bid ON HOLD,consider restarting at lower dose -NovoLog sliding scale insulin Anemia Patient required transfusion of 1 unit of packed red blood cells for acute blood loss anemia. -PRBC transfused: 1 Hypokalemia-resolved Hyponatremia-resolved Acute kidney injury-resolved Pain plan-Dilaudid Diet-nothing by mouth, tube feeds on hold for IR procedure tomorrow DVT prophylaxis-subcutaneous heparin/alps CODE STATUS-full code Problem List: 1. Gastric perforation Pain Ratin Pain Location: Multiple msk sites abdomen Pain Goal: Pain 7 or less Pain Plan: See assessment Tomorrow's Labs & Rationales: CBC-abscesses BEP-tube feeds ERIBERTO MORATAYA MD 08/26/16 1028: Attending MD Review Statement Attending Statement Attending MD Statement: examined this patient, discuss w/resident/PA/ADMINISTRATIVE AND PROGRAM SPECIALIST, agreed w/resident/PA/ADMINISTRATIVE AND PROGRAM SPECIALIST, reviewed EMR data (avail), discussed with nursing, discussed with case mgmt, amended to note Attending Assessment/Plan: Patient was scheduled to undergo intra-abdominal catheter placement today by the interventional radiology group. Unfortunately her tube feeding was not held by the nursing staff and heart procedure has been postponed by the IR service due to concern all aspiration from feeding is currently going directly into her jejunum. The low likelihood for aspiration has been discussed with IR service however the procedure will be done tomorrow. She offers no new complaints other than paralyzed pain for which she is receiving analgesic therapy. She is currently receiving intravenous Dilaudid essentially [id number]. She is also requesting Benadryl in addition due to pruritus. Recommendations: -Nursing staff and leadership have been provided with clear instructions to hold tube feeding from midnight tonight. -Continue current antibiotic regimen. -Procedure she will undergo CT imaging of her right leg while she is under anesthesia. -Her white cell count is slowly trending upwards. We'll continue to monitor closely. She is afebrile currently and is on antibiotic therapy. -She continues to have mild hyperkalemia. Recommend hydration with half-normal saline at 100 mL an hour for 1 L. Repeat serum chemistry in the a.m.
--- NOTE | 2016-08-26 07:23 | NUR ---
NURSING NOTE: AWAITING REPORT FROM NIGHT RN, PT NPO FOR IR PROCEDURE. TUBE FEEDING STOPPED AT THIS TIME, ANESTHESIA AWARE, AUGUST SOFTWARE ADMINISTRATOR MADE AWARE, CONT TO MONITOR.
[2016-08-26 07:56] LABS: ABSOLUTE BASOPHIL COUNT 0.1 /CUMM (0.0-0.2); ABSOLUTE EOSINOPHIL COUNT 0.6 /CUMM (0.0-0.7); ABSOLUTE GRANULOCYTE CT 9.1 /CUMM (1.4-6.5); ABSOLUTE LYMPH COUNT 1.5 /CUMM (1.2-3.4); ABSOLUTE MONOCYTE COUNT 0.6 /CUMM (0.10-0.60); BASOPHIL % 0.5 % (0.0-2.0); EOSINOPHIL % 5.3 % (0-5); GRANULOCYTE % 76.1 % (42.2-75.2); HEMATOCRIT 27.2 % (37-47); MEAN CORPUSCULAR HGB 28.6 PG (27.0-31.0); MEAN CORPUSCULAR VOLUME 86.8 FL (81.0-99.0); MEAN PLATELET VOLUME 8.6 FL (7.4-10.4); PLATELET COUNT 364 /CUMM (130-400); RBC DISTRIBUTION WIDTH 22.8 % (11.5-14.5); RED BLOOD CELL CT 3.13 /CUMM (4.20-5.40); WHITE BLOOD CELL COUNT 11.9 /CUMM (4.8-10.8)
--- NOTE | 2016-08-26 10:29 | NUR ---
NURSING NOTE: PT C/O ITCHY TO BODY; HYDROCORTISONE CREAM ALREADY GIVEN THIS AM, 218 CALLED AND MADE AWARE, OK TO GIVE BENADRYL AT THIS TIME; SEE NURSING MISC
[2016-08-26 15:09] VITALS: BP 121/52
--- NOTE | 2016-08-26 15:44 | PN- Wound Care ---
Subjective Subjective: Patient continues to complain of pain with movement reportedly she has refused offloading mattress. Objective Vital Signs and I&Os Vital Signs Result Date Time Pulse Ox 91 08/26 1509 B/P 121/52 08/26 1509 O2 Delivery Room Air 08/26 1509 Temp 98.3 08/26 1509 Pulse 104 08/26 1509 Resp 22 08/26 1509 O2 Flow Rate Room Air 08/26 1409 FiO2 30 08/14 0832 Intake & Output 08/26 0000 08/25 1600 08/25 0800 Intake Total 420 725 840 Output Total 261 25 40 Balance 159 700 800 Intake, IV 150 Intake, Tube 300 575 600 Feeding Intake, Tube 120 240 Irrigant Number 2 0 Bowel Movements Output, 60 25 40 Drainage Output, 0 Gastric Drainage Output, Stool 1 Output, Urine 200 Exam of the right buttock shows there to be a primarily unstageable ulcer measuring approximately 3.5 x 2 cm with greater than 90% slough the wound has depth of approximately 1 cm there is no probable bone over the right buttock is a 1.5 x 0.8 cm unstageable ulcer Impression/Plan Impression/Plan Impression/Plan: 40-year-old woman admitted with sepsis marked hypoalbuminemia bilateral buttock unstageable ulcers. Recommend use of enzymatic debridement with Santyl. We have stressed the need for aggressive offloading due to immobility and current refusal to be on a low air loss mattress. We've explained the need to be on a Clinitron mattress and hopefully she will except
--- NOTE | 2016-08-26 16:23 | NUR ---
wound care: pt evaluated with dr amador for pressure injuries to gary buttocks - (please refer to dr amador note) - discussed importance of repositioning and need for specialty air mattress / clinitron mattress - pt cont to refuse despite multiple attempts at education and risk/benefit description - recommendation: please obtain clinitron mattress - pt is at high risk for breakdown, as she is incontinent and refuses all repositioning and inc care despite education and reinforcement by staff
--- NOTE | 2016-08-26 18:27 | PN- General Surgery ---
Surgical Brief Attending Note Brief Attending Note: patient is stable. NG "fell out" yesterday. Please do not attempt reinsertion. Observe with npo. Drain output without significant change thus far. Multiple abdominal fluid collections. Plan for IR drainage. It has be cancelled twice in two days due to tube feeds. Please turn them off at midnight so that drainage can occur. Would also pursue imaging of right thigh to better delineate what appears to be a tracking deep intramuscular infectious process.
[2016-08-26 22:59] VITALS: BP 104/50
--- NOTE | 2016-08-27 05:48 | NUR ---
PT C/O INCREASED PAIN FOLLOWING TOILETING AND CLEANING. REQUESTING PAIN MEDICATION. PER OPERATING ROOM TECH SPEAKER MOUNTER, BETTINA ROSARIO TO GIVE PAIN MEDS AT THIS TIME.
[2016-08-27 07:00] VITALS: BP 98/50
--- NOTE | 2016-08-27 07:21 | PN- Housestaff ---
DERECK GANDHI MD 08/27/16 0721: Subjective Follow-up For: Partial gastrectomy Septic bursitis Abdominal/pelvic abscesses Subjective: Patient seen and examined. She is seen sitting upright in bed resting comfortably. She appears to be in no acute distress. She reports persistent diffuse pain but otherwise denies any new subjective complaints. She continues to report "feeling like crap". She is to undergo a procedure with interventional radiology today and understands the clinical course and associated risks. Otherwise she denies any headache, fever, chills, chest pain, shortness breath, nausea, vomiting, diarrhea. No overnight events reported. Review of Systems Constitutional: Reports: see HPI. Objective Last 24 Hrs of Vital Signs/I&O Vital Signs Date Time Temp Pulse Resp B/P Pulse O2 O2 Flow FiO2 Ox Delivery Rate 08/27 1434 Nasal 5.0L Cannula 08/27 1137 97.8 102 20 106/70 93 Room Air 08/27 1102 93 Room Air Room Air 08/27 0800 93 Room Air 08/27 0700 98.7 108 20 98/50 92 Room Air 08/26 2259 98.2 113 20 104/50 94 Room Air 08/26 2210 Room Air Room Air Intake & Output 08/27 1600 08/27 0800 04 0000 Intake Total 375 600 600 Output Total 125 990 500 Balance 250 -390 100 Intake, IV 375 600 600 Intake, Oral 0 Number 0 1 1 Bowel Movements Output, 125 390 200 Drainage Output, Urine 600 300 Physical Exam General Appearance: Alert, Oriented X3, Cooperative, No Acute Distress Other Physical Findings: General -well-developed, well-nourished morbidly obese woman in no acute distress HEENT - NCAT, PERRL, EOMI, anicteric sclera Cardio - S1, S2 w/o murmurs/gallops/rubs Resp - CTA bilaterally w/o wheezing/rhochi/crackles GI - soft, obese, mild diffuse tenderness, nondistended, bowel sounds present, healing surgical incisions with minimal surrounding erythema without induration or drainage, BLANCA drain purulent drainage Neuro - Awake and alert, CN II - XII grossly intact Extremities - no edema, no cyanosis/clubbing/edema, right upper extremity wrapped in sterile surgical dressing without any evidence of drainage with pulses intact in the extremity Current Medications: Current Medications Sig/Shahla Start time Last Medication Dose Route Stop Time Status Admin Acetaminophen 1,000 MG Q6P PRN 08/07 1630 AC 08/21 N/A 1 UNIT IV 1127 Albuterol Sulfate 3 ML Q4 HRS NEEDED PRN 08/24 1130 AC 08/27 INH 1057 Albuterol Sulfate 2 PUF Q4P PRN 07/30 2200 AC 08/07 INH 0914 Benzocaine/Menthol 1 RAYMUNDO Q2P PRN 08/11 2245 AC PO Collagenase 1 DEMETRA DAILY 08/04 1000 AC 08/27 TOP 0946 Dextrose/Sodium 1,000 ML Q13H 08/26 1600 DC 08/27 Chloride IV 0328 Diclofenac Sodium 1 DEMETRA TID PRN 07/30 1145 AC 08/05 TOP 2142 Diphenhydramine HCl 50 MG .STK-MED ONE 08/27 0318 DC IM 08/27 0319 Diphenhydramine HCl 50 MG .STK-MED ONE 08/26 2139 DC IM 08/26 2140 Diphenhydramine HCl 50 MG Q6P PRN 08/07 1630 AC 08/27 IV 1631 Fluconazole 400 MG DAILY 08/15 1000 AC 08/27 Sodium Chloride 200 ML IV 0825 Heparin Sodium 5,000 UNIT Q8 08/12 0600 AC 08/26 (Porcine) SC 2144 Hydrocortisone 1 DEMETRA TID 08/24 2300 AC 08/27 EXT 0826 Hydromorphone HCl 1 MG Q4P PRN 08/25 0945 AC 08/27 IV 1631 Insulin Human Regular 1 UNITS .STK-MED ONE 08/27 0616 DC IV 08/27 0617 Insulin Human Regular 0 Q6 08/10 1800 AC 08/27 SC 0619 Lidocaine 1 PAT DAILY 07/28 1800 AC 07/28 EXT 2004 Meropenem 1 GM IQ8 08/13 1600 AC 08/27 IV 0825 Miconazole Nitrate 1 DEMETRA AT BEDTIME 07/29 0130 AC 08/17 VAG 2234 Nystatin 1 DEMETRA TID PRN 08/12 0730 AC 08/20 TOP 1001 Pantoprazole Sodium 40 MG DAILY 08/11 1802 AC 08/27 IV 0825 Phenol 2 SPRAY Q2P PRN 08/18 0800 AC 08/18 EXT 0834 Sucralfate 1 GM Q6 08/16 0830 AC 08/26 PO 0510 Last 24 Hrs of Lab/Haris Results Last 24 Hrs of Labs/Mics: Laboratory Tests 08/27/16 1000: Fluid WBC Cancelled, Fld Total RBCs Counted Cancelled 08/27/16 1000: Fluid WBC Cancelled, Fld Total RBCs Counted Cancelled 08/27/16 1000: Fluid Glucose Cancelled, Fluid Total Protein Cancelled, Fluid Albumin Cancelled, Fluid LDH Cancelled, Fluid Amylase Cancelled 08/27/16 0600: Anion Gap 6, Estimated GFR > 60, BUN/Creatinine Ratio 34.3 H, Total Beta HCG NEGATIVE, PT 11.2, INR 1.07, CBC w Diff MAN DIFF ORDERED, RBC 3.06 L, MCV 87.2, MCH 28.3, RDW 23.3 H, MPV 8.3, Gran % 77.4 H, Lymphocytes % 10.6 L, Monocytes % 5.5, Eosinophils % 5.9 H, Basophils % 0.6, Absolute Granulocytes 10.9 H, Segmented Neutrophils 62, Band Neutrophils 20 H, Absolute Lymphocytes 1.5, Lymphocytes 8 L, Absolute Monocytes 0.8 H, Eosinophils 8 H, Absolute Eosinophils 0.8, Basophils 1, Absolute Basophils 0.1, Metamyelocytes 1, Platelet Estimate ADEQUATE, Polychromasia 2+, Hypochromic-Microcytic 2+, Poikilocytosis 2 +, Anisocytosis 2+, PUBS MCHC 32.5 L Microbiology 08/27 1554 TRUNK/O.R.: Culture & Sensitivity - RECD 08/27 155 TRUNK/O.R.: Gram Stain - RECD 08/27 1552 TRUNK/O.R.: Culture & Sensitivity - RECD 08/27 1552 TRUNK/O.R.: Gram Stain - RECD 08/28 1551 TRUNK/O.R.: Culture & Sensitivity - RECD 08/28 1551 TRUNK/O.R.: Gram Stain - RECD 08/27 1550 TRUNK/O.R.: Culture & Sensitivity - RECD 08/270 TRUNK/O.R.: Gram Stain - RECD 08/27 1005 BODY FLUID: Body Fluid Culture - CAN Cancelled: CANCELLED PER DR REED 08/27 1005 BODY FLUID: Gram Stain - CAN Cancelled: CANCELLED PER DR REED 08/27 UNK BODY FLUID: Body Fluid Culture - CAN Cancelled: CANCELLED PER DR REED 08/27 UNK BODY FLUID: Gram Stain - CAN Cancelled: CANCELLED PER DR REED 08/27 UNK BODY FLUID: Body Fluid Culture - CAN Cancelled: CANCELLED DR COWART 08/27 UNK BODY FLUID: Gram Stain - CAN Cancelled: CANCELLED DR COWART 08/27 0937 URINE ROUT: Urine Culture - COLB Assessment/Plan Assessment: Patient continues to remain afebrile while on intravenous meropenem with worsening leukocytosis over the past 2 days. Patient is to go to the interventional radiology suite today and to undergo aspiration of the multiple identified fluid collections with drain placement. She is also to undergo a right-sided thoracentesis and right hip arthrocentesis for aspiration of the identified loculations in these areas as well. Cultures of these aspirations are to be sent in addition to other studies for the pleural effusion. Patient remains nothing by mouth with tube feeds on hold which are to be restarted this evening after she returns to the floor. Gangrenous stomach status post partial gastrectomy -Gen. medicine -BLANCA drain in place -Fluconazole 400 mg IV daily -Meropenem 1 g IV every 8 hours -Infectious disease consult -Gen. surgery consult -Follow-up cultures and sensitivities -Follow-up cultures and sensitivities of labs drawn on 08/27/16 Pelvic/abdominal abscesses CT abdomen/pelvis on 08/22/16 demonstrated numerous encapsulated fluid collections throughout the abdomen, pelvis, and right thigh in addition to an encapsulated intrapleural collection in the right hemithorax small bilateral effusions. -Hold tube feeds at midnight for IR procedure in morning -Nothing by mouth -Antibiotics as above History of polysubstance abuse/anxiety/depression On the W-10 and the discharge instructions, please ask the receiving facility/ ECF to call and make an intake appointment at [facility], [address] [place] [address] when her discharge date is known, . -Cannot go home with proline, must go to rehab Right shoulder pain/right elbow swelling/right elbow abscess status post arthrocentesis Arthrocentesis of elbow removed 300 mL of purulent material. Extremity remains wrapped in sterile surgical dressing without obvious drainage. Patient has free range of movement of the extremity and admits to mild pain. -Follow-up fluid collection cultures -Orthopedic consult Decubitus ulcer -Wound care consult -Local wound care per wound care consult recommendations Diabetes mellitus -Accu-Cheks 3 times a day before meals/at bedtime -Hold oral hypoglycemics -Levemir 60 bid ON HOLD,consider restarting at lower dose -NovoLog sliding scale insulin Anemia Patient required transfusion of 1 unit of packed red blood cells for acute blood loss anemia. -PRBC transfused: 1 Hypokalemia-resolved Hyponatremia-resolved Acute kidney injury-resolved Pain plan-Dilaudid Diet-nothing by mouth, tube feeds on hold for IR procedure tomorrow DVT prophylaxis-subcutaneous heparin/alps CODE STATUS-full code Problem List: 1. Pelvic abscess Pain Ratin Pain Location: Diffuse/generalized Pain Goal: Pain 7 or less Pain Plan: See assessment Tomorrow's Labs & Rationales: CBC-leukocytosis BEP-intravenous antibiotics OMARI MORATAYA MDGERALDPUJA 08/27/16 1511: Attending MD Review Statement Attending Statement Attending MD Statement: examined this patient, discuss w/resident/PA/SENIOR BIOINFORMATICS SCIENTIST, agreed w/resident/PA/SENIOR BIOINFORMATICS SCIENTIST, reviewed EMR data (avail), discussed with nursing, discussed with case mgmt, amended to note Attending Assessment/Plan: Patient seen and examined. No new complaints today other than her generalized pain. She remains afebrile hemodynamically stable however labs to show increasing white cell count. Drain remains in place with significant output she drained about 240 mL yesterday. Her right upper extremity appears smaller this morning. Dressing over the right forearm remains in place. A right lower extremity remains swollen with no evidence of limb ischemia. She is scheduled to undergo IR drainage of her multiple abdominal abscesses today as well as drainage of left thigh collection. She is also scheduled for drainage of right hemithorax. Gen. surgery follow-up today appreciated. Her WBC continues to trend upwards. Recommendations: -Samples will be sent for cultures and cell count. -We'll discuss case with the orthopedic service regarding recommendations by the general surgical service to transfer to an orthopedic specialty Hospital. -Continue current pain management regimen. -Continue current antibiotic regimen.
[2016-08-27 08:32] LABS: PT 11.2 SEC (9.4-12.5)
[2016-08-27 09:18] LABS: ABSOLUTE BASOPHIL COUNT 0.1 /CUMM (0.0-0.2); ABSOLUTE EOSINOPHIL COUNT 0.8 /CUMM (0.0-0.7); ABSOLUTE GRANULOCYTE CT 10.9 /CUMM (1.4-6.5); ABSOLUTE LYMPH COUNT 1.5 /CUMM (1.2-3.4); ABSOLUTE MONOCYTE COUNT 0.8 /CUMM (0.10-0.60); BASOPHIL % 0.6 % (0.0-2.0); EOSINOPHIL % 5.9 % (0-5); GRANULOCYTE % 77.4 % (42.2-75.2); HEMATOCRIT 26.6 % (37-47); MEAN CORPUSCULAR HGB 28.3 PG (27.0-31.0); MEAN CORPUSCULAR HGB CONC 32.5 G/DL (33.0-37.0); MEAN CORPUSCULAR VOLUME 87.2 FL (81.0-99.0); MEAN PLATELET VOLUME 8.3 FL (7.4-10.4); PLATELET COUNT 357 /CUMM (130-400); RBC DISTRIBUTION WIDTH 23.3 % (11.5-14.5); RED BLOOD CELL CT 3.06 /CUMM (4.20-5.40)
--- NOTE | 2016-08-27 09:29 | NUR ---
NURSING NOTE: PT C/O 02/24 PAIN, OK TO MEDICATE WITH DILAUDID PER DR MORATAYA. CONT TO MONITOR. PT GOING TO IR AT 1200PM FOR DRAINAGE
--- NOTE | 2016-08-27 09:47 | NUR ---
NURSING NOTE: PT CONTINUES TO REFUSE SPECIALTY MATTRESS, PT STATES "JUAN MOHAMUD IN THEM BEFORE AND IM CLAUSTROPHOBIC" ATTENDING AWARE, ORDER PLACED FOR ELIAS PER MD ORDER; PER IR RN ABCESS CLOSE TO BLADDER AND RADIOLOGIST WANTS IT FOR DECOMPRESSION, PT STATES "I NEED TO BE ASLEEP FOR THAT" IR RN MORGAN TO PLACE. TAPPER HAND AWARE, WILL SEND ELIAS KIT/UC LABEL, CONT TO MONITOR.
--- NOTE | 2016-08-27 11:21 | PN- General Surgery ---
Surgical Brief Attending Note Brief Attending Note: Case discussed with interventional radiology. There are multiple abdominal fluid collections, many of which do not communicate. Plan will be to place at least 3 intra-abdominal drains. There is also an extensive, complex infiltrating fluid collection in her pelvic and thigh musculature, likely related to the prior infected hematoma related to her pubic ramus fracture. This area will be sampled as well with possible drain placement. Given the extensive nature of the infectious process in her pelvis and upper thigh, if infection is present, this is likely a process which would be best treated at a tertiary orthopedic Center. We should discuss with her attending orthopedic surgeons first though. Lan Trammell MD to reassume care tomorrow. Patient pulled out her nasogastric tube 2 days ago. Given the new onset of bilious drainage from her left upper quadrant surgically placed drain, she may need to have her nasogastric tube replaced under fluoroscopic guidance to decrease the fistula output and improve likelihood of nonoperative closure of her gastric leak. I discussed this matter with interventional radiology and the feeling is that that would have to be a procedure performed in the future due to the complexity of her percutaneous drainage planned for today.
[2016-08-27 11:37] VITALS: BP 106/70
--- NOTE | 2016-08-27 11:43 | PN- Infect Dx ---
Subjective Subjective: Afebrile. She feels well today with no complaints at this time. Objective Last 24 Hrs of Vital Signs/I&O Vital Signs Date Time Temp Pulse Resp B/P Pulse O2 O2 Flow FiO2 Ox Delivery Rate 08/27 1102 93 Room Air Room Air 08/27 0700 98.7 108 20 98/50 92 Room Air 08/26 2259 98.2 113 20 104/50 94 Room Air 08/26 2210 Room Air Room Air 08/26 1509 98.3 104 22 121/52 91 Room Air 08/26 1409 92 Room Air Room Air Intake & Output 08/27 1600 08/27 0800 08/27 0000 Intake Total 600 600 Output Total 990 500 Balance -390 100 Intake, IV 600 600 Number 1 1 Bowel Movements Output, 390 200 Drainage Output, Urine 600 300 Physical Exam Other Physical Findings: She appears comfortable in no acute distress Chest Pro-Line in the left upper chest with no inflammation at the site Extremities decreased swelling of the right elbow, with packing in place; bilateral lower extremity edema, right greater than left, though decreased from previous exam Results Last 24 Hours of Lab Results: Laboratory Tests 08/27 0600 Chemistry Sodium (137 - 145 mmol/L) 131 L Potassium (3.5 - 5.1 mmol/L) 4.9 Chloride (98 - 107 mmol/L) 96 L Carbon Dioxide (22 - 30 mmol/L) 29 Anion Gap (5 - 16) 6 BUN (7 - 17 mg/dL) 24 H Creatinine (0.5 - 1.0 mg/dL) 0.7 Estimated GFR (>60 ml/min) > 60 BUN/Creatinine Ratio (7 - 25 %) 34.3 H Total Beta HCG (NEGATIVE) NEGATIVE Coagulation PT (9.4 - 12.5 SEC) 11.2 INR (0.90 - 1.19) 1.07 Hematology CBC w Diff MAN DIFF ORDERED WBC (4.8 - 10.8 /CUMM) 14.0 H RBC (4.20 - 5.40 /CUMM) 3.06 L Hgb (12.0 - 16.0 G/DL) 8.7 L Hct (37 - 47 %) 26.6 L MCV (81.0 - 99.0 FL) 87.2 MCH (27.0 - 31.0 PG) 28.3 RDW (11.5 - 14.5 %) 23.3 H Plt Count (130 - 400 /CUMM) 357 MPV (7.4 - 10.4 FL) 8.3 Gran % (42.2 - 75.2 %) 77.4 H Lymphocytes % (20.5 - 51.1 %) 10.6 L Monocytes % (1.7 - 9.3 %) 5.5 Eosinophils % (0 - 5 %) 5.9 H Basophils % (0.0 - 2.0 %) 0.6 Absolute Granulocytes (1.4 - 6.5 /CUMM) 10.9 H Segmented Neutrophils (42.2 - 75.2 %) 62 Band Neutrophils (0.0 - 5.0 %) 20 H Absolute Lymphocytes (1.2 - 3.4 /CUMM) 1.5 Lymphocytes (20.5 - 51.1 %) 8 L Absolute Monocytes (0.10 - 0.60 /CUMM) 0.8 H Eosinophils (0 - 5.0 %) 8 H Absolute Eosinophils (0.0 - 0.7 /CUMM) 0.8 Basophils (0.0 - 2.0 %) 1 Absolute Basophils (0.0 - 0.2 /CUMM) 0.1 Metamyelocytes (0.0 - 1.0 %) 1 Platelet Estimate (ADEQUATE) ADEQUATE Polychromasia 2+ Hypochromic-Microcytic 2+ Poikilocytosis 2+ Anisocytosis 2+ PUBS MCHC (33.0 - 37.0 G/DL) 32.5 L Last 24 Hours of Haris Results: No recent cultures Assessment/Plan Impression: Multiple encapsulated fluid collections throughout the abdomen, pelvis and right thigh seen on the recent CT scan, most of which likely represent complications from her surgery 15 days ago for a gangrenous stomach with perforation, for which she remains on Meropenem and Fluconazole, but with the right hip/thigh/ gluteal process, with possible septic arthritis or bursitis, most likely residual from her pelvic abscess which was identified on admission and which was partially drained with a catheter that was inserted 26 days ago and removed 10 days ago. She is scheduled for aspiration and drainage of these multiple collections as well as the right hip joint/bursa later today. The findings on the CT scan of a loculated rim-enhancing fluid collection in the lower right hemithorax are chronic and of unclear significance. This was never proven to be infected but, given evidence of infection in multiple other areas, seeding of this collection is possible and aspiration and possible drainage of this collection is also scheduled for today. Her CT findings are also suspicious for a persistent leak at the surgical site, with no surgical intervention apparently planned for this at this time. She underwent aspiration of 300 mL of purulent fluid from the right olecranon bursa 4 days ago, with Staph aureus isolated from this culture and this may warrant further drainage if it recurs. Suggestion: 1. Await IR drainage of the multiple abdominal and pelvic collections, aspiration of the right hip joint/bursa and aspiration/possible drainage of the right hemithorax collection later today 2. Orthopedic follow-up regarding her right olecranon bursa and right hip after above 3. Continue Meropenem and Fluconazole pending above
--- NOTE | 2016-08-27 11:57 | NUR ---
NURSING NOTE: PT LEFT FLOOR VIA STRETCHER WITH DISTRIBUTION FOR MULTIPLE PROCEDURES IN IR. REPORT GIVEN TO MORGAN GRESHAM. PT AWAKE, A/OX3, ROOM AIR, VITALS OBTAINED AND DOCUMENTED. BLANCA DRAIN TO ABDOMEN. DSGS TO ABDOMEN, R ELBOW AND R BUTT C/D/I. PT NOT REQUESTING PAIN MEDS AT THIS TIME, ELIAS KIT SENT TO IR FOR RN TO PLACE WHILE UNDER ANESTHESIA. FSG 121; NO COVERAGE GIVEN. PREPROCEDURE CHECKLIST/STAMPER AND MED LIST SENT. TICKET TO RIDE COMPLETE, PINK BRACELET TO R ARM, ISOLATION WRISTBAND IN PLACE, PT REFUSING ALL FALL PRECATION PROTOCOLS. AWAIT RETURN TO FLOOR. CONT TO MONITOR. LCW PROLINE INTACT; BOTH LUMENS FLUSHED/PATENT AND +BLOOD RETURN.
--- NOTE | 2016-08-27 14:59 | NUR ---
PHYSICAL THERAPY- PT CONT TO REFUSE ALL P.T. (AND MOST OTHER) INTERVENTIONS AT THIS TIME, INCLUDING REPOSITIONING AND LINEN CHANGES WHEN INCONT. WILL DISCONTINUE ATTEMPTS AT P.T. AT THIS TIME 2* CONSISTENT REFUSALS TO PARTICIPATE. HOWEVER, RECOMMEND OOB VIA CHELSIE LIFT TO AVOID SEQUELAE OF PROLONGED BEDREST WHILE MAINTAINING SAFETY. PLEASE RECONSULT *WHEN PT IS PREPARED TO PARTICIPATE W/ P.T. SERVICES*. THANK YOU.
[2016-08-27 16:35] VITALS: BP 90/50
--- NOTE | 2016-08-27 16:36 | CT SCAN REPORT ---
EXAMINATION: CT CHEST, ABDOMEN, PELVIS, AND THIGHS WITH CONTRAST CLINICAL INFORMATION: 41-year-old female with multifocal abscesses. COMPARISON: 08/22/2016 CT abdomen pelvis TECHNIQUE: Multidetector volumetric imaging was performed from the mid chest through the knees following the administration of just intravenous contrast: 100 mL Optiray 320. No contrast reaction reported. Sagittal and coronal reformatted images were obtained on the technologist workstation. Total exam dose-length product 2063 mGy-cm FINDINGS: CHEST: Please note the entire lungs are not included in this study, as it was performed to evaluate the patient's bilateral pleural effusions. LUNG: There is mild bibasilar atelectasis without focal consolidation. PLEURA: There are small bilateral pleural effusions. Additionally, there is a 8.3 x 3.8 cm loculated collection adjacent to the pleural fluid at the right lung base, highly suspicious for abscess/empyema. MEDIASTINUM: Normal heart size. No pericardial effusion. No hilar or mediastinal lymphadenopathy in the visualized chest.. VASCULAR: Minimal atherosclerotic calcification. CHEST WALL/AXILLA: No axillary or internal mammary lymphadenopathy. ABDOMEN/PELVIS: LIVER: The liver is normal in size, shape, and attenuation. No focal hepatic lesion or biliary ductal dilatation is present. GALLBLADDER: Unremarkable. PANCREAS: Well-visualized with fatty infiltration. SPLEEN: Normal size. No focal lesion. ADRENAL GLANDS: Normal; no mass. KIDNEYS AND URETERS: The kidneys are normal in size, shape, and attenuation. No hydronephrosis, hydroureter, or calculi. GASTROINTESTINAL TRACT: No evidence for obstruction. Normal appendix. PERITONEAL CAVITY: As seen on the previous CT, there is a right upper quadrant fluid collection with a hyperdense rim. There is also a left lower quadrant fluid collection which appears to communicate to a more inferior left lower quadrant collection, and eventually to a fluid collection in the cul-de-sac. There is also a multiloculated collection in the right hemipelvis, with a 3.6 x 6.2 cm component abutting the bladder, with fluid tracking along the iliacus muscle, and extending around the acetabulum, right hip joint, into the greater trochanteric bursa. There are no new sites of abscess. MUSCULATURE: There are abscesses overlying or involving the right gluteal muscles. There are multifocal abscesses involving and displacing right thigh muscles, in both anterior and posterior compartments. BLADDER: No focal mass or wall thickening seen. No bladder calculi. OSSEOUS STRUCTURES: There is severe degenerative disc disease at L4-L5, with progressive destructive endplate changes. IMPRESSION: 1. Multifocal abdominal and pelvic abscesses without new abscess. 2. Right lung empyema. 3. Severe multiloculated abscesses around the right hip and pelvis, extending along the anterior and posterior thigh musculature. 4. L4-L5 degenerative changes, with questionable progressive disc destruction. Cannot exclude infectious discitis.
--- NOTE | 2016-08-27 16:42 | CT SCAN REPORT ---
EXAMINATION: CT LOWER EXTREMITY WITH CONTRAST, RIGHT CLINICAL INFORMATION: Multiple abscesses. Leukocytosis. Right lower extremity pain and swelling. COMPARISON: None. TECHNIQUE: CT of the right thigh is performed following intravenous administration of 94 mL of Optiray 320 iodinated contrast. DLP: 2063 mGy-cm (including the CT chest, abdomen and pelvis). FINDINGS: There are peripherally enhancing fluid collections extending the length of the right lower psoas and iliacus muscles and iliopsoas tendon to the lesser trochanter. This communicates with collections along the obturator externus and internus muscles, right thigh adductor and hamstring muscles and the vastus medialis and intermedius muscles to the level of the mid thigh. This communicates with a peripherally enhancing fluid collection along the gluteus medius muscle, superficial to the greater trochanter, deep to the iliotibial band with medial displacement of the vastus lateralis muscle. This lateral fluid collection which has maximal transverse measurements of 3.8 x 8.1 cm extends a length of approximately 30 cm. The proximal aspect superficial to the greater trochanter was subsequently aspirated under CT guidance. There is diffuse subcutaneous edema. IMPRESSION: Extensive peripherally enhancing fluid collections throughout the muscles of the right hemipelvis and proximal right thigh presumably representing communicating abscesses. A portion of these collections was subsequently aspirated.
[2016-08-27 17:00] VITALS: BP 98/54
--- NOTE | 2016-08-27 20:03 | NUR ---
PATIENT RETURNED TO FLOOR AT 1630 FROM PACU S/P DRAIN PLACEMENT PT VERY AGITATED, AND IN PAIN VS 98.2 107 18 90/50 94% ROOM AIR ORIGINAL BLANCA DRAIN TO L ABD REPLACED WITH LARGER DRAIN 2 PERC DRAINS TO GRAVITY PLACED TO RUQ ABD AND TO LLQ ABD, TO BE FLUSHED AND ASP WITH 10CC Q 8HRS PT MEDICATED WITH 1MG IV DILAUDID AND BENADRYL, AND 1600 MEDS PATIENT RESTING COMFORTABLY CONTINUE TO MONITOR
--- NOTE | 2016-08-27 20:35 | NUR ---
PATIENT REFUSING ALL OFFERS OF REPOSITIONING AND INCONTINENT CARE, STATING "I DON'T WANT ANYONE TOUCHING MY BODY" EDUCATED ON IMPORTANCE OF BOTH, PATIENT STATED, "LATER" CONTINUE TO MONITOR
[2016-08-27 22:23] VITALS: BP 102/58
--- NOTE | 2016-08-28 00:45 | NUR ---
NURSE NOTE: PT REFUSING TO LET ME ASSESS HER AT THIS TIME. STATED " MAYBE LATER YOU CAN". NOTICED R ELBOW DRESSIGN WAS SATURATED OFFERED TO CHANGE IT, PT REFUSING WELL. WILL ATTEMPT TO ASSESS AGAIN.
[2016-08-28 06:47] VITALS: BP 96/44
--- NOTE | 2016-08-28 07:14 | PN- Housestaff ---
HIRAM FARFAN,DERECK 08/28/16 0714: Subjective Follow-up For: Partial gastrectomy Septic bursitis Abdominal/pelvic abscesses Subjective: Patient seen and examined. She is seen lying flat in bed resting comfortably. She appears to be in no acute distress. She continues to report a persistent diffuse pain and is requesting intravenous narcotic medications, specifically Dilaudid. Otherwise she admits to "feeling like crap" and refuses to answer any further questions. It was explained to her that she may be transferred later today for further care for which she verbalized understanding, however reluctantly. Additionally she denies any blurred/double vision, lightheadedness/dizziness, headache, fever, chills, chest pain, palpitations, shortness of breath, cough, nausea, vomiting, diarrhea. No overnight events reported. Review of Systems Constitutional: Reports: see HPI. Objective Last 24 Hrs of Vital Signs/I&O Vital Signs Date Time Temp Pulse Resp B/P Pulse O2 O2 Flow FiO2 Ox Delivery Rate 08/28 1343 98.8 102 20 102/48 96 Nasal 2.0L Cannula 08/28 1149 98.6 104 20 100/58 98 Nasal 4.0L Cannula 08/28 1140 94 Nasal 4.0L Cannula 08/28 0839 102 100/60 08/28 0800 93 Room Air 08/28 0647 97.8 122 20 96/44 93 Room Air 08/27 2223 98.4 98 20 102/58 94 Room Air 08/27 2217 91 Room Air 08/27 1700 97.8 110 18 98/54 93 Room Air 08/27 1635 98.2 107 18 90/50 94 Room Air Intake & Output 08/28 1600 08/28 0800 08/28 0000 Intake Total 250 250 Output Total 115 540 530 Balance 135 -540 -280 Intake, IV 250 Intake, Oral 0 0 Intake, Tube 110 Feeding Intake, Tube 140 Irrigant Number 0 Bowel Movements Output, 115 290 530 Drainage Output, Urine 250 Physical Exam General Appearance: Alert, Oriented X3, Cooperative, No Acute Distress Other Physical Findings: General -well-developed, well-nourished morbidly obese woman in no acute distress HEENT - NCAT, PERRL, EOMI, anicteric sclera Cardio - S1, S2 w/o murmurs/gallops/rubs, surgical dressing and right chest wall with scant amount of serosanguineous drainage Resp - CTA bilaterally w/o wheezing/rhochi/crackles GI - soft, obese, mild diffuse tenderness, nondistended, bowel sounds present, healing surgical incisions with minimal surrounding erythema without induration or drainage, BLANCA drain purulent drainage, multiple intact drainage sites with purulent material without surrounding erythema/induration Neuro - Awake and alert, CN II - XII grossly intact Extremities - no edema, no cyanosis/clubbing/edema, right upper extremity wrapped in sterile surgical dressing scant amount of serosanguineous drainage with pulses intact in the extremity Current Medications: Current Medications Sig/Shahla Start time Last Medication Dose Route Stop Time Status Admin Acetaminophen 1,000 MG Q6P PRN 08/07 1630 08/21 N/A 1 UNIT IV 1127 Albuterol Sulfate 3 ML Q4 HRS NEEDED PRN 08/24 1130 08/27 INH 1057 Albuterol Sulfate 2 PUF Q4P PRN 07/30 2200 08/07 INH 0914 Benzocaine/Menthol 1 RAYMUNDO Q2P PRN 08/11 2245 AC PO Collagenase 1 DEMETRA DAILY 08/04 1000 08/28 TOP 0100 Dextrose/Sodium 1,000 ML Q13H 08/26 1600 PA 08/27 Chloride IV 0328 Diclofenac Sodium 1 DEMETRA TID PRN 07/30 1145 08/05 TOP 2142 Diphenhydramine HCl 50 MG .STK-MED ONE 08/28 0608 DC IM 08/28 0609 Diphenhydramine HCl 50 MG .STK-MED ONE 08/28 0025 PA IM 08/28 0026 Diphenhydramine HCl 50 MG .STK-MED ONE 08/27 1628 DC IM 08/27 1629 Diphenhydramine HCl 50 MG Q6P PRN 08/07 1630 08/28 IV 1222 Fluconazole 400 MG DAILY 08/15 1000 08/28 Sodium Chloride 200 ML IV 0823 Heparin Sodium 5,000 UNIT Q8 08/12 0600 08/28 (Porcine) SC 0620 Hydrocortisone 1 DEMETRA TID 08/24 2300 08/28 EXT 0824 Hydromorphone HCl 0.4 MG ONCE ONE 08/28 1045 DC 08/28 IV 08/28 1046 1059 Hydromorphone HCl 1 MG ONCE ONE 08/27 1815 DC 08/27 IV 08/27 1816 1821 Hydromorphone HCl 1 MG Q4P PRN 08/25 0945 AC 08/28 IV 1222 Insulin Human Regular 1 UNITS .STK-MED ONE 08/28 0608 DC IV 08/28 0609 Insulin Human Regular 1 UNITS .STK-MED ONE 08/28 0026 DC IV 08/28 0027 Insulin Human Regular 0 Q6 08/10 1800 AC 08/28 SC 0621 Lidocaine 1 PAT DAILY 07/28 1800 AC 07/28 EXT 2004 Meropenem 1 GM IQ8 08/13 1600 AC 08/28 IV 0823 Miconazole Nitrate 1 DEMETRA AT BEDTIME 07/29 0130 AC 08/17 VAG 2234 Nystatin 1 DEMETRA TID PRN 08/12 0730 AC 08/20 TOP 1001 Pantoprazole Sodium 40 MG DAILY 08/11 1802 AC 08/28 IV 0823 Phenol 2 SPRAY Q2P PRN 08/18 0800 AC 08/18 EXT 0834 Sucralfate 1 GM Q6 08/16 0830 AC 08/27 PO 1821 Last 24 Hrs of Lab/Haris Results Last 24 Hrs of Labs/Mics: Laboratory Tests 08/28/16 0640: Anion Gap 7, Estimated GFR > 60, BUN/Creatinine Ratio 37.1 H, CBC w Diff MAN DIFF ORDERED, RBC 2.95 L, MCV 86.6, MCH 28.5, RDW 23.1 H, MPV 8.3, Gran % 86.0 H, Lymphocytes % 6.5 L, Monocytes % 3.6, Eosinophils % 3.7, Basophils % 0.2, Absolute Granulocytes 16.9 H, Segmented Neutrophils 79 H, Band Neutrophils 11 H, Absolute Lymphocytes 1.3, Lymphocytes 2 L, Monocytes 6, Absolute Monocytes 0.7 H, Eosinophils 2, Absolute Eosinophils 0.7, Absolute Basophils 0, Platelet Estimate VERIFIED BY SMEAR, Polychromasia 1+, Anisocytosis 2+, PUBS MCHC 32.9 L Microbiology 08/27 1554 TRUNK/O.R.: Culture & Sensitivity - RES 08/27 1554 TRUNK/O.R.: Gram Stain - RES 08/27 1552 TRUNK/O.R.: Culture & Sensitivity - RES 08/27 1552 TRUNK/O.R.: Gram Stain - RES 08/28 1551 TRUNK/O.R.: Culture & Sensitivity - RES STAPH AUREUS 08/27 1552 TRUNK/O.R.: Gram Stain - RES Assessment/Plan Assessment: Patient remains afebrile while on intravenous meropenem but continues to have worsening leukocytosis with bandemia over the past 3 days. Underwent multiple procedures with assistance of CT scan yesterday by interventional radiology. Right-sided thoracentesis aspirated purulent material, multiple abdominal drains were placed with aspiration of further purulent material, and right hip arthrocentesis was attempted with aspiration of a scant amount of loculated purulent material. Surgical team discussed the management of the findings of purulent material tracking from the right hip potentially down to the right knee and it was ultimately decided that patient would require transfer to a tertiary care center for further evaluation by an orthopedist/trauma team for management of her pelvic fracture/possible osteomyelitis and multiple diffuse abscesses/ loculations. Patient was apparently hypoxic in the 80s this afternoon per nursing staff for which she was placed back on supplemental oxygen via nasal cannula and a chest x -ray was obtained to rule out any occult pulmonary pathology or potential pneumothorax given her recent thoracentesis. Chest x-ray demonstrated improvement of the known effusion and no other acute pathology. Patient is to be transferred to [facility] under the care of Dr. Willoughby for further evaluation and care of her multiple active medical problems. Gangrenous stomach status post partial gastrectomy -Gen. medicine -BLANCA drain in place -Fluconazole 400 mg IV daily -Meropenem 1 g IV every 8 hours -Infectious disease consult -Gen. surgery consult -Follow-up cultures and sensitivities -Follow-up cultures and sensitivities of labs drawn on 08/27/16 Pelvic/abdominal abscesses CT abdomen/pelvis on 08/22/16 demonstrated numerous encapsulated fluid collections throughout the abdomen, pelvis, and right thigh in addition to an encapsulated intrapleural collection in the right hemithorax small bilateral effusions. -Hold tube feeds at midnight for IR procedure in morning -Nothing by mouth -Antibiotics as above History of polysubstance abuse/anxiety/depression On the W-10 and the discharge instructions, please ask the receiving facility/ ECF to call and make an intake appointment at [facility], [address] [place] [address] when her discharge date is known, . -Cannot go home with proline, must go to rehab Right shoulder pain/right elbow swelling/right elbow abscess status post arthrocentesis Arthrocentesis of elbow removed 300 mL of purulent material. Extremity remains wrapped in sterile surgical dressing without obvious drainage. Patient has free range of movement of the extremity and admits to mild pain. -Follow-up fluid collection cultures -Orthopedic consult Decubitus ulcer -Wound care consult -Local wound care per wound care consult recommendations Diabetes mellitus -Accu-Cheks 3 times a day before meals/at bedtime -Hold oral hypoglycemics -Levemir 60 bid ON HOLD,consider restarting at lower dose -NovoLog sliding scale insulin Anemia Patient required transfusion of 1 unit of packed red blood cells for acute blood loss anemia. -PRBC transfused: 1 Hypokalemia-resolved Hyponatremia-resolved Acute kidney injury-resolved Pain plan-Dilaudid Diet-Tube feeds DVT prophylaxis-subcutaneous heparin/alps CODE STATUS-full code Problem List: 1. Pelvic abscess Pain Ratin Pain Location: Diffuse Pain Goal: Remain pain free Pain Plan: See assessment Tomorrow's Labs & Rationales: None Discharge Plan Discharge Disposition: transfer to another hosp Stable for Discharge? Yes Anticipated Discharge (Day): today If Discharged Today/In 24 Hrs: enter [facility] discharge ord, W-10/discharge paper done, DC summary done, CMR done ERIBERTO MORATAYA MD 08/28/16 1349: Attending MD Review Statement Attending Statement Attending MD Statement: examined this patient, discuss w/resident/PA/[facility], agreed w/resident/PA/[facility], reviewed EMR data (avail), discussed with nursing, discussed with case mgmt, amended to note Attending Assessment/Plan: Patient seen and examined. Lethargic but not oriented 3. Reports generalized pain controlled with current regimen. Denies shortness of breath. Denies cough. This afternoon she was found to be hypoxic in the 80s. With oxygen supplementation oxygenation has improved. Repeat chest x-ray done today shows improvement of her pleural collection. Breath sounds are diminished on auscultation. Swelling of the right upper extremity as reduce swelling drainage. Intact dressing in place. Her right lower extremity however remains significantly swollen and tender to touch. Distal pulses are not palpable due to the edema. There is no cyanosis of the limb. Problems: 1. Multiple abscesses (abdomen and pelvis) 2. Peritonitis due to gangrenous stomach possibly due to ischemia s/p partial gastrectomy. 3. Right elbow Septic bursitis s/p drainage of 300 mL of pus 4. Septic shock 5. Decubitus ulcer 6. Diabetes mellitus 7. Right-sided empyema 8. Chronic pain syndrome Recommendations: -Per recommendations of the surgical service patient is being transferred to [facility] for further management. Case has been accepted by the hospitalist service there. I did speak with Dr. Willoughby. -Patient will need surgical follow-up and management of her intra-abdominal drains. -She will require monitoring of her right-sided empyema. Chest x-ray today shows improvement in size following drainage yesterday. -She will require urgent evaluation by the surgical service of her right hip collection with further excision down the extremity. -She'll require evaluation by the orthopedic service for possible pelvic bone infection resulting in her intrapelvic abscess. -She will require ID follow-up for antibiotic guidance. -Patient has acute on chronic pain. She has been managed here on Dilaudid 1 mg IV every 4 hours as needed and IV Benadryl 50 mg IV every 6 hours as needed.
--- NOTE | 2016-08-28 08:02 | NUR ---
NURSE NOTE: SALES TRAINEE MADE AWAR HR 122 AND BP 98/44
[2016-08-28 08:03] LABS: ABSOLUTE BASOPHIL COUNT 0 /CUMM (0.0-0.2); ABSOLUTE EOSINOPHIL COUNT 0.7 /CUMM (0.0-0.7); ABSOLUTE GRANULOCYTE CT 16.9 /CUMM (1.4-6.5); ABSOLUTE LYMPH COUNT 1.3 /CUMM (1.2-3.4); ABSOLUTE MONOCYTE COUNT 0.7 /CUMM (0.10-0.60); BASOPHIL % 0.2 % (0.0-2.0); EOSINOPHIL % 3.7 % (0-5); HEMATOCRIT 25.6 % (37-47); MEAN CORPUSCULAR HGB 28.5 PG (27.0-31.0); MEAN CORPUSCULAR HGB CONC 32.9 G/DL (33.0-37.0); MEAN CORPUSCULAR VOLUME 86.6 FL (81.0-99.0); MEAN PLATELET VOLUME 8.3 FL (7.4-10.4); PLATELET COUNT 363 /CUMM (130-400); RBC DISTRIBUTION WIDTH 23.1 % (11.5-14.5); RED BLOOD CELL CT 2.95 /CUMM (4.20-5.40); WHITE BLOOD CELL COUNT 19.6 /CUMM (4.8-10.8)
[2016-08-28 08:39] VITALS: BP 100/60
--- NOTE | 2016-08-28 10:38 | Discharge Summary ---
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, with initial source felt to be her abdominal wound from a previous colostomy, which was placed at the time of her Bianka's gangrene and eventually reversed, with a recurrent left perirenal abscess, treated with multiple courses of IV antibiotics; previous right-sided hemorrhagic pleural effusion S/P Pleurx catheter, lytic therapy 2, previous MSSA sepsis likely secondary to pro-line catheter, previous necrotizing fasciitis of the perineum, left pararenal abscess , osteomyelitis of pubic bone, most recently hospitalized 3 months prior to admission with persistent pelvic pain after a previous fall that had resulted in a fracture of the right inferior pubic ramus, managed conservatively by Orthopedics, with recurrent MSSA bacteremia felt to be secondary to an infected Pro-Line, treated with a total of nearly 8 weeks of IV Oxacillin, which was completed 2 months prior to admission, with her hospital course also complicated by a right hemothorax, requiring a chest tube, seen in the emergency room several times after discharge with various complaints, most recent 5 weeks prior to admission, with a CT of the pelvis on one of those visits only revealing the right pubic fracture and a CT of the chest revealing a moderate right hemopneumothorax, admitted on July 27, 3 days after a fall with the complaint of right hip and pelvic pain and inability to walk. On admission she was afebrile. Laboratory data revealed a white blood cell count of 14,000, glucose 619, BUN/creatine 31 and 0.9, sodium 120, alk phosphatase 189. CT of the pelvis revealed old fractures of the right superior and inferior pubic rami with partial interval healing and with no acute fractures and a new right pelvic collection with mass effect upon the bladder, measuring 9.3 x 5.4 x 10.7 cm, suggestive of a hematoma. She was followed off antibiotics. She did have a fever to 101.4 on July 29 but has been otherwise afebrile with no complaints of chills or sweats. Her white blood cell count has remained elevated with bandemia. She has had persistent pain since admission, managed with Tylenol and Benadryl. She was admitted to , found to have pelvic abscess, that was drained by interventional radiology on August 01. Drain was removed on 08/17/2016. Postprocedure she was hypotensive and her transfer to the intensive care unit, oxacillin was started for MSSA that cultured from the drainage fluid. She was also begun on pressors, levo fed for 1 day after which her blood pressure stabilized. She was subsequently transferred back to general medicine where shortly afterward she became hypotensive again and was transferred to the intensive care unit. Oxacillin was discontinued, she was treated with Zosyn and eventually begun on meropenem which she is currently on along with fluconazole. She developed peritonitis secondary to gastric gangrene likely due to septic shock and resultant ischemia. Patient pulled out her nasogastric tube 2 days ago. Given the new onset of bilious drainage from her left upper quadrant surgically placed drain, she may need to have her nasogastric tube replaced under fluoroscopic guidance to decrease the fistula output and improve likelihood of nonoperative closure of her gastric leak. I discussed this matter with interventional radiology and the feeling is that that would have to be a procedure performed in the future due to the complexity of her percutaneous drainage planned for today. She underwent IR guided drainage of multiple abdominal fluid collections, many of which do not communicate. 3 intra-abdominal drains were placed. There is also an extensive, complex infiltrating fluid collection in her pelvic and thigh musculature, likely related to the prior infected hematoma related to her pubic ramus fracture. This area will be sampled as well with possible drain placement. Given the extensive nature of the infectious process in her pelvis and upper thigh, if infection is present, this is likely a process which would be best treated at a tertiary orthopedic Center. - Problems - Multiple abscesses (abdomen and pelvis) Peritonitis due to gangrenous stomach possibly due to ischemia s/p partial gastrectomy. Right elbow Septic bursitis s/p drainage Septic shock Decubitus ulcer Allergies: Coded Allergies: codeine (Intermediate, HIVES 06/17/16) nickel (Intermediate, RASH 06/17/16) adhesive tape (Mild, RASH 06/17/16) duloxetine (Intermediate, NAUSEA 06/17/16) hydrocodone (GI UPSET (ESOPHAGITIS) 06/17/16) ibuprofen (GI UPSET (ESOPHAGITIS) 06/17/16) Pertinent Lab Results: Vital Signs Date Time Temp Pulse Resp B/P Pulse O2 O2 Flow FiO2 Ox Delivery Rate 08/28 0839 102 100/60 08/28 0647 97.8 122 20 96/44 93 Room Air 08/27 2223 98.4 98 20 102/58 94 Room Air 08/27 2217 91 Room Air 08/27 1700 97.8 110 18 98/54 93 Room Air 08/27 1635 98.2 107 18 90/50 94 Room Air 08/27 1434 Nasal 5.0L Cannula 08/27 1137 97.8 102 20 106/70 93 Room Air 08/27 1102 93 Room Air Room Air 08/27 0800 93 Room Air 08/27 0700 98.7 108 20 98/50 92 Room Air 08/26 2259 98.2 113 20 104/50 94 Room Air 08/26 2210 Room Air Room Air 08/26 1509 98.3 104 22 121/52 91 Room Air 08/26 1409 92 Room Air Room Air 08/26 0758 94 08/26 0615 98.9 113 22 100/58 93 Room Air 08/25 2210 98.6 106 22 96/42 93 04 2109 94 Room Air Room Air 08/25 1428 95 Room Air 08/25 1424 98.3 102 20 102/64 94 Room Air 08/25 1400 Nasal 5.0L Cannula 08/25 0622 98.9 106 20 104/52 92 08/24 2228 98.1 111 20 124/70 95 Room Air 04 2135 91 Room Air 08/24 1352 98.1 114 20 126/72 93 Room Air 08/24 0653 98.0 104 20 106/52 99 Nasal 2.0L Cannula 08/24 0000 Nasal 2.0L Cannula 08/23 2219 98.6 124 20 102/58 92 Nasal 2.0L Cannula 08/23 1855 86 Room Air 0408 1645 Room Air 0408 1500 98.6 98 20 102/48 93 Room Air 04 1253 95 Room Air 0408 0800 93 Room Air 04/08 0722 102 100/50 0408 0709 98.7 112 20 98/54 92 Room Air 04/07 2325 98.6 109 18 100/50 93 Room Air 04/07 2234 96 Room Air Room Air 04/07 1848 98.8 104 18 102/64 93 Room Air Room Air 04/07 1509 98.9 100 22 104/70 92 Room Air 04/07 1024 94 Room Air Room Air 04/07 0934 20 93 Room Air 04/07 0934 20 95 Nasal 2.0L Cannula 04/07 0800 95 Nasal 2.0L Cannula 04/07 0645 98.8 113 20 100/60 93 Nasal 2.0L Cannula 04/07 0000 Room Air 04/06 2250 98.6 102 20 106/54 92 04/06 2220 Room Air Room Air 04/06 2200 98.5 106 20 96/56 92 Room Air 04/06 1600 95 Room Air 04/06 1600 97.8 88 20 112/60 95 Room Air 04/06 0856 96 Room Air 04/06 0800 99.1 70 18 112/60 95 Room Air 04/06 0000 99.0 100 22 110/70 Room Air 04/06 0000 96 Room Air 04/05 2145 96 Room Air Room Air 04/05 1600 95 Room Air 04/05 1600 97.8 112 18 115/62 95 Room Air 04/05 1047 Nasal 5.0L Cannula 04/05 0925 96 Room Air 04/05 0800 94 Room Air 04/05 0800 97.6 112 20 116/64 94 Room Air 04/05 0000 97.2 107 20 96/60 93 Room Air 04/05 0000 93 Room Air 04/04 2054 96 Room Air Room Air 04/04 1600 98.0 88 20 110/70 96 Room Air 04/04 1245 95 Room Air 04/04 0800 95 Room Air 04/04 0800 97.7 110 18 116/62 95 Room Air 04/04 0400 94 Room Air 04/04 0000 97.6 111 18 102/60 92 Room Air 04/04 0000 92 Room Air 04/03 2107 95 Room Air Room Air 04/03 2000 94 Room Air 04/03 1600 98.1 114 20 128/40 96 Room Air 04/03 1600 97 Room Air 04/03 1547 Nasal 5.0L Cannula 04/03 1200 94 Room Air 04/03 0822 95 Room Air 04/03 0800 98.3 117 20 122/70 97 Room Air 04/03 0800 97 Room Air 04/03 0433 95 Room Air 04/03 0000 94 04/03 0000 98.2 113 24 120/44 94 Room Air 04/02 2219 96 Room Air Room Air 04/ 2000 92 Room Air 04/02 1600 97.6 108 20 104/58 93 Room Air 04/ 1200 97.3 108 20 106/54 96 Room Air 04/02 0917 94 Room Air Room Air 04/02 0800 96.9 108 18 106/58 95 Room Air 04/02 0353 96 04/02 0046 94 Room Air 04/ 2217 99.7 116 20 97/44 94 Room Air 04/ 2024 94 Room Air 08/16 2017 93 Room Air 04/ 1600 98.7 110 15 110/58 95 Room Air 04 1600 95 Room Air 04 1201 96 Room Air 04 1200 98 Nasal 1.0L Cannula 08/16 0808 95 Nasal 1.0L Cannula 08/16 0742 97 Nasal 3.0L Cannula 08/16 0742 97.6 113 23 100/50 97 Nasal 3.0L Cannula 08/16 0400 98 Nasal 3.0L Cannula 08/16 0000 99 Nasal 3.0L Cannula 08/15 2300 96.7 106 24 100/50 100 Nasal 3.0L Cannula 08/15 2000 100 Nasal 3.0L Cannula 08/15 1932 100 Nasal 3.0L Cannula 08/15 1600 100 Nasal 3.0L Cannula 08/15 1600 97.1 106 16 94/44 100 Nasal 3.0L Cannula 08/15 1200 100 Nasal 3.0L Cannula 08/15 1041 97 Nasal 3.0L Cannula 08/15 0800 97.7 106 14 106/50 95 Nasal 3.0L Cannula 08/15 0800 100 Nasal 3.0L Cannula 08/15 0400 200 Nasal 3.0L Cannula 08/15 0000 100 Nasal 3.0L Cannula 08/14 2200 98.0 104 12 100/58 99 Nasal 3.0L Cannula 08/14 2134 95 Nasal 3.0L Cannula 08/14 2000 Nasal 2.0L Cannula 08/14 1600 100 Nasal 3.0L Cannula 08/14 1600 96.2 100 17 108/58 100 Nasal 3.0L Cannula 08/14 1200 100 Nasal 3.0L Cannula 08/14 1146 99 Nasal 3.0L Cannula 08/14 0832 30 03 0800 98 Ventilator 30% 08/14 0800 96.1 98 14 108/59 98 Ventilator 30% 08/14 0628 102 14 109/41 03/30 0621 30 03 0400 99 Ventilator 30% 08/14 0315 30 03 0031 30 03 0000 97.0 103 14 110/50 100 Ventilator 30% 03 0000 100 Ventilator 30% 08/13 2236 30 08/13 2138 98 14 121/41 08/13 2000 95 Ventilator 35% 08/13 1950 35 08/13 1615 35 08/13 1600 99 Ventilator 35% 08/13 1600 97.2 103 14 102/60 99 Ventilator 35% 08/13 1415 Nasal 5.0L Cannula 08/13 1414 35 08/13 1225 35 08/13 1217 103/40 08/13 1200 99 Ventilator 35% 08/13 0920 40 08/13 0800 97.9 104 14 100/52 100 Ventilator 40% 08/13 0800 100 Ventilator 40% 08/13 0625 40 08/13 0429 109 94/43 08/13 0400 99 Ventilator 40% 08/13 0306 40 08/13 0104 40 08/13 0000 100 Ventilator 40% 08/13 0000 97.8 108 14 102/44 99 Ventilator 40% 08/12 2338 97.8 108 18 100/40 98 Ventilator 40% 08/12 2333 108 18 98/41 08/12 2300 98 Ventilator 40% 08/12 2200 40 08/12 1600 97.5 108 12 100/60 96 Nasal 2.0L Cannula 08/12 1600 95 Nasal 2.0L Cannula 08/12 1351 113 100/61 08/12 1200 95 Nasal 2.0L Cannula 08/12 1029 97 Nasal 2.0L Cannula 08/12 0800 97.0 107 18 96/54 96 Nasal 2.0L Cannula 08/12 0800 95 Nasal 2.0L Cannula 08/12 0521 102 97/50 08/12 0334 98 Nasal 3.0L Cannula 08/12 0038 111 99/47 08/12 0000 97.1 112 20 100/50 98 Nasal 3.0L Cannula 08/12 0000 98 Nasal 3.0L Cannula 08/11 2140 118 101/60 08/11 2100 96 Nasal 3.0L Cannula 08/12 1999 98 Nasal 3.0L Cannula 08/11 1600 99 Nasal 3.0L Cannula 08/11 1600 98.2 115 14 90/50 99 Nasal 3.0L Cannula 08/11 1200 97.5 116 16 86/58 98 Nasal 3.0L Cannula 08/11 1131 Nasal 5.0L Cannula 08/11 1127 Nasal 2.0L Cannula 08/11 1107 99 Nasal 4.0L Cannula 08/11 0800 97 Nasal 3.0L Cannula 08/11 0800 97.6 110 20 90/53 97 Nasal 3.0L Cannula 08/11 0557 112 16 96/48 08/11 0400 95 Nasal 5.0L Cannula 08/11 0041 114 16 90/50 08/11 0000 95 Nasal 5.0L Cannula 08/11 0000 96.6 114 18 90/50 95 Nasal 5.0L Cannula 08/10 2139 113 91/49 08/11 1999 93 Nasal 5.0L Cannula 08/10 1955 94 Nasal 4.0L Cannula 08/10 1742 114 96/43 08/10 1600 Nasal 5.0L Cannula 08/10 1600 97.3 114 20 136/47 94 Nasal 5.0L Cannula 08/10 1200 Nasal 5.0L Cannula 08/10 1036 94 Nasal 4.0L Cannula 08/10 1000 85/39 08/10 0930 80/50 08/10 0900 66/40 08/10 0830 120 22 60/0 94 Nasal 4.0L Cannula 08/10 0800 95 Nasal 4.0L Cannula 08/10 0618 97.7 108 20 92/60 92 Nasal 4.0L Cannula 08/10 0000 97 Nasal 5.0L Cannula 08/09 2240 98.1 106 20 90/56 97 Nasal 5.0L Cannula 08/09 1900 78 Room Air 08/09 1600 91 Nasal 5.0L Cannula 08/09 1444 97.6 110 20 128/72 99 08/09 0836 94 Nasal 3.0L Cannula 08/09 0600 97.7 106 20 110/60 95 Nasal Cannula 08/09 0453 93 Nasal 5.0L Cannula 08/09 0000 Nasal 4.0L Cannula 08/08 2054 97.6 105 20 108/60 94 Nasal 5.0L Cannula 08/08 1916 96 Nasal 4.0L Cannula 08/08 1600 98 Room Air 08/08 1600 97.3 72 24 100/80 95 Nasal 5.0L Cannula 08/08 1400 92 Nasal 6.0L Cannula 08/08 1033 Room Air Room Air 08/08 0800 97.7 60 20 88/46 91 Nasal 4.0L Cannula 08/08 0757 93 Nasal 7.0L Cannula 08/08 0600 98 Nasal 4.0L Cannula 08/08 0052 92 Nasal 4.0L Cannula 08/07 2300 97.6 114 20 110/60 94 Nasal 2.0L Cannula 08/07 2200 94 Nasal 2.0L Cannula 08/07 2114 96 Nasal 2.0L Cannula 08/07 1600 97.0 104 20 110/70 95 Nasal 2.0L Cannula 08/07 1600 96 Nasal 2.0L Cannula 08/07 0955 Room Air Room Air 08/07 0800 97.8 100 18 130/70 98 Nasal 2.0L Cannula 08/07 0800 97 Nasal 2.0L Cannula 08/07 0400 95 Nasal 2.0L Cannula 08/07 0000 94 Nasal 2.0L Cannula 08/07 0000 96.6 99 17 120/60 94 Nasal 2.0L Cannula 08/06 2000 96 Nasal 2.0L Cannula 08/06 1600 99 Nasal 5.0L Cannula 08/06 1600 97.5 96 15 82/50 100 Nasal 5.0L Cannula 08/06 1200 100 Nasal 5.0L Cannula 08/06 1102 Room Air Room Air 08/06 1058 Room Air Room Air 08/06 0950 94 Nasal 4.0L Cannula 08/06 0911 98 Nasal 3.0L Cannula 08/06 0800 96.7 95 14 95/50 100 Nasal 5.0L Cannula 08/06 0611 88 Nasal 3.0L Cannula 08/06 0400 98 Nasal 3.0L Cannula 08/06 0000 95.6 84 19 80/48 95 Nasal 3.0L Cannula 08/05 2337 85 64/38 08/05 2016 98 Nasal 3.0L Cannula 08/05 2000 95 Nasal 3.0L Cannula 08/05 1602 93 24 80/48 93 Nasal 3.0L Cannula 08/05 1600 Nasal 3.0L Cannula 08/05 1450 98.1 97 22 80/33 89 Nasal 2.0L Cannula 08/05 1425 96 20 76/42 89 Nasal 2.0L Cannula 08/05 1201 93 112/61 03 1200 98.9 93 20 112/61 95 Nasal 2.0L Cannula 08/05 0825 97.8 96 20 93/52 95 Nasal 2.0L Cannula 08/05 0800 94 Nasal 3.0L Cannula 08/05 0524 98.4 94 24 105/55 94 Nasal 3.0L Cannula 08/05 0400 88/58 03 0327 97.6 92 24 73/55 94 Nasal 3.0L Cannula 08/05 0154 98.3 100 22 90/60 94 Nasal 3.0L Cannula 08/05 0000 94 Nasal 3.0L Cannula 08/04 2330 102 16 108/60 94 Nasal 3.0L Cannula 08/04 2244 130 122/60 08/04 2237 98.2 133 18 132/58 87 Room Air 08/04 2215 130 18 122/60 85 Room Air 08/04 1600 96.5 72 18 110/80 97 Room Air 08/04 1120 Room Air Room Air 08/04 1109 117 92/64 08/04 0800 96.5 113 20 124/70 98 Room Air 08/04 0800 96 Room Air 08/04 0401 97 Room Air 08/04 0000 96.1 112 16 98/42 99 Room Air 08/04 0000 99 Room Air 08/03 2326 112 96/48 08/04 1999 96 Room Air 08/03 1600 97.0 104 20 112/60 97 Room Air 08/03 1200 97.4 102 18 110/60 94 Room Air 08/03 1001 110 107/58 08/03 0800 97.5 110 18 100/60 96 Room Air 08/03 0400 94 Room Air 08/03 0000 97 Nasal 4.0L Cannula 08/03 0000 97.0 107 17 118/52 97 Nasal 4.0L Cannula 08/02 2133 113 118/85 08/03 1999 99 Nasal 4.0L Cannula 08/02 1600 Nasal 4.0L Cannula 08/02 1600 98.3 122 20 106/50 94 Nasal 4.0L Cannula 08/02 1200 97.8 118 22 110/48 94 Room Air 08/02 0929 115 118/51 08/02 0800 Nasal 3.0L Cannula 08/02 0800 99.0 110 20 104/40 100 Nasal 3.0L Cannula 08/02 0533 97.5 106 21 93/54 03/18 0400 99 Nasal 3.0L Cannula 08/02 0003 96.9 96 22 75/34 03/18 0000 98 Nasal 3.0L Cannula 08/02 0000 97.4 96 19 78/40 98 Nasal 3.0L Cannula 08/01 2228 78/42 08/01 2000 99 Nasal 3.0L Cannula 08/01 1600 95 Nasal 4.0L Cannula 08/01 1600 98.6 86 14 100/48 93 Nasal 4.0L Cannula 08/01 1531 Room Air Room Air 08/01 0918 90/50 03/17 0640 98.2 64 18 112/56 96 Room Air 07/31 1957 70 148/70 16 1535 98.1 95 20 110/60 97 Room Air 07/31 0627 98.7 91 20 98/56 96 Room Air 07/31 0000 96 Room Air 07/30 2253 99.0 99 20 110/60 96 /15 2106 84 114/60 03/15 1508 Room Air Room Air 07/30 1456 98.8 90 20 102/58 94 /15 0637 98.6 98 20 102/56 94 Room Air 03/14 2215 99.2 101 20 80/60 95 Room Air 03/14 2120 101 80/60 03/14 1625 99.1 03/14 1622 99.1 03/14 1518 101.4 03/14 1515 96 80/50 03/14 1436 101.4 102 20 80/60 93 Room Air 03/14 0729 98.1 94 20 142/68 94 / 2331 97.5 92 20 94 Room Air /13 2151 90 140/65 03/13 2125 Room Air Room Air 07/28 1715 97.3 102 18 118/70 95 Room Air 07/28 1422 98.2 102 18 129/65 98 Room Air 07/28 1350 98.2 03/ 1046 98.2 116 18 115/70 98 Room Air 07/28 0807 98.2 110 18 124/60 98 Room Air 07/28 0521 98.3 113 20 126/58 97 Room Air 07/27 2343 Room Air 07/27 2336 96.4 112 22 120/57 97 Room Air Last 24 Hours I&Os 08/28 1600 08/28 0800 08/28 0000 Intake Total 250 Output Total 540 530 Balance -540 -280 Intake, Oral 0 Intake, Tube 110 Feeding Intake, Tube 140 Irrigant Output, 290 530 Drainage Output, Urine 250 Laboratory Tests 08/28/16 0640: Anion Gap 7, Estimated GFR > 60, BUN/Creatinine Ratio 37.1 H, CBC w Diff MAN DIFF ORDERED, RBC 2.95 L, MCV 86.6, MCH 28.5, RDW 23.1 H, MPV 8.3, Gran % 86.0 H, Lymphocytes % 6.5 L, Monocytes % 3.6, Eosinophils % 3.7, Basophils % 0.2, Absolute Granulocytes 16.9 H, Segmented Neutrophils 79 H, Band Neutrophils 11 H, Absolute Lymphocytes 1.3, Lymphocytes 2 L, Monocytes 6, Absolute Monocytes 0.7 H, Eosinophils 2, Absolute Eosinophils 0.7, Absolute Basophils 0, Platelet Estimate VERIFIED BY SMEAR, Polychromasia 1+, Anisocytosis 2+, PUBS MCHC 32.9 L Microbiology Date/Time Procedure - Status Source Growth 08/27 1555 Culture & Sensitivity - RES TRUNK/O.R. 08/27 1555 Gram Stain - RES TRUNK/O.R. 08/27 1005 Body Fluid Culture - CAN BODY FLUID Cancelled: CANCELLED PER DR REED 08/27 1005 Gram Stain - CAN BODY FLUID Cancelled: CANCELLED PER DR REED 08/27 0937 Urine Culture - COLB URINE ROUT 08/23 1120 Culture & Sensitivity - COMP EXTREMITIE STAPH AUREUS 08/23 1120 Gram Stain - COMP EXTREMITIE Orders Procedure Date/time Status Wound Care/Dressing 08/28 0749 Active CBC WITHOUT DIFFERENTIAL 08/28 0600 Complete BASIC ELECTROLYTES PLUS BUN&CR 08/28 0600 Complete Tube Feeding 08/27 D Active Nursing Misc 08/27 1719 Active Drains/Tubes 08/27 1714 Active TRUNK AREA OR SPEC 08/27 1555 Active TRUNK AREA OR SPEC 08/27 1553 Active TRUNK AREA OR SPEC 08/27 1552 Active TRUNK AREA OR SPEC 08/27 1550 Active US-GUIDANCE 08/27 1242 Active CULTURE,URINE 08/27 0937 Active PROTHROMBIN TIME 08/27 0600 Complete HUMAN BETA HCG SCREEN 08/27 0600 Complete CBC WITHOUT DIFFERENTIAL 08/27 0600 Complete BASIC ELECTROLYTES PLUS BUN&CR 08/27 0600 Complete AEROSOL CHG 08/27 UNK Complete RT RE-EVALUATION 08/27 UNK Complete Orta, Insertion/Removal/Asses 08/[address] THORACENTESIS 08/[address] PERCUTANEOUS ABSCESS DRAIN 08/27 UNK Active Nursing Misc 08/26 UNK Complete MISSING MEDICATION FORM 08/26 UNK Active Disposition Summary Disposition Principal Diagnosis: See Summary Additional Diagnosis: See Summary Discharge Disposition: other general hospital Discharge Instructions General Discharge Information Code Status: Full Code Patient's Diet: tube feeds with glucerna 1.2 with 120 mm water flush every 4 hours Patient's Activity: self limited Follow-Up Instructions/Appts: follow up as per when patient is discharged Medications at Discharge Discharge Medications: Stop taking the following medications: Pregabalin (Lyrica) 150 MG CAPSULE ORAL TWICE DAILY Diphenhydramine HCl (Benadryl) 25 MG CAPSULE ORAL EVERY SIX HOURS as needed for ITCHING Hydrocortisone Acetate (Micort-Hc) 2.5 % CREAM.APPL On the skin THREE TIMES DAILY Ergocalciferol (Vitamin D2) (Drisdol) 50,000 UNIT CAPSULE ORAL Once a Week Qty = 8 Insulin Aspart (Novolog) 100 UNIT/ML VIAL Inject into fatty tissue SEE INSTRUCTIONS Days = 30 Quetiapine Fumarate (Quetiapine Fumarate) 100 MG TABLET ORAL AT BEDTIME Days = 14 Insulin Detemir (Levemir) 100 UNIT/ML VIAL Inject into fatty tissue TWICE DAILY Days = 30 Continue taking these medications: Albuterol Sulfate (Proair Hfa) 90 MCG HFA.AER.AD 2 Puff Inhale through mouth EVERY 4-6 HOURS NEEDED as needed for SOB Comments: Last Taken: 06/10/16 Time: 1000 Propranolol HCl (Propranolol HCl) 20 MG TABLET 1 Tablet ORAL TWICE DAILY Comments: NOT TAKEN IN HOSPITAL Start taking the following new medications: Diphenhydramine HCl (Diphenhydramine HCl) 50 MG/ML VIAL 50 Milligram INTRAVEN EVERY SIX HOURS NEEDED as needed for ANXIETY Qty = 1 No Refills Meropenem (Meropenem) 1 GRAM VIAL 1 Gram INTRAVEN IV EVERY 8 HOURS Qty = 1 No Refills Albuterol Sulfate (Albuterol Sulfate) 2.5 MG/3 ML (0.083 %) VIAL.NEB 3 Milliliters Inhale through mouth EVERY 4 HOURS NEEDED as needed for SHORTNESS OF BREATH Qty = 1 No Refills Heparin Sodium,Porcine (Heparin Sodium) 5,000 UNIT/ML VIAL 5,000 Unit Inject into fatty tissue EVERY 8 HOURS Qty = 1 No Refills Diclofenac Sodium (Voltaren) 1 % GEL..GRAM. 1 Application On the skin THREE TIMES DAILY as needed for PAIN SCALE 4-6 ( MODERATE) Qty = 1 No Refills Pantoprazole Sodium (Protonix) 40 MG TABLET.DR 40 Milligram INTRAVEN DAILY Qty = 1 No Refills Insulin Regular (Novolin R Inj) 1,000 UNITS/10 ML PANCHITO 0 Units Inject into fatty tissue EVERY SIX HOURS Qty = 1 No Refills Miconazole Nitrate (Miconazole Nitrate) 2 % CREAM.APPL 1 Application VAGINALLY AT BEDTIME Qty = 1 No Refills Nystatin (Nystatin) 100,000 UNIT/GRAM CREAM..G. 1 Application On the skin THREE TIMES DAILY as needed for fungal infection Qty = 1 No Refills Collagenase Clostridium Hist. (Santyl) 250 UNIT/GRAM OINT...G. 1 Application On the skin DAILY Qty = 1 No Refills Hydromorphone (Hydromorphone HCl 2 MG/Ml Amp) 2 MG/ML AMPUL 1 Milligram INTRAVEN EVERY 4 HOURS NEEDED as needed for PAIN SCALE 7-10 ( SEVERE) Qty = 1 No Refills Copies To: ANGE MORATAYA M.D, MD,DAVIN Palma MD Review Statement Documenting Attending: ERIBERTO MORATAYA M.D
--- NOTE | 2016-08-28 10:43 | RADIOLOGY REPORT ---
PROCEDURE: CT AND US GUIDED PERCUTANEOUS ABSCESS DRAIN RIGHT ABDOMEN CT AND US GUIDED CT PERCUTANEOUS ABSCESS DRAIN LEFT ABDOMEN CT GUIDED RIGHT HIP ASPIRATION CT THORACENTESIS, CLINICAL INFORMATION: 41-year-old female with multifocal abdominal, pelvic, right hip, and thigh abscesses. Additionally, patient has findings of empyema on CT. COMPARISON: CT chest abdomen and pelvis and thighs performed immediately prior to this procedure and dictated separately. SEDATION: The procedure was performed with general anesthesia, as per the [facility] anesthesiology department. CONSENT: Informed consent was obtained from the patient prior to the procedures. During this process, the procedures and potential alternatives were explained along with the intended outcome and benefits. The risks of the procedures including the possibility of an unsuccessful procedure, as well as the risk of not doing the procedure were discussed. The patient was given the opportunity to ask questions regarding the procedure and appear competent he decisions. A signed consent form was document this discussion was placed in the medical record. A time out procedure was performed. TECHNIQUE AND FINDINGS: The patient's abdomen was prepped and draped in the usual sterile fashion. The patient's preceding CT was used to localize appropriate levels for drainage in the abdomen in the patient's supine position. Once the levels were localized, ultrasound guidance was used for needle placement into the abscesses. Using standard interventional and sterile technique, a one-step needle was first introduced via an anterior approach into the right upper quadrant, perihepatic fluid collection. This yielded purulent fluid. Using a 0.035 inch Amplatz Super Stiff wire, the one-step needle was exchanged after serial dilation for a 10 [place] locking pigtail drainage catheter. At this point, we turned our attention to the patient's left lower quadrant abscess. Once the position was marked with CT guidance, ultrasound was used for needle guidance into the collection. This also yielded purulent fluid. After serial dilation, a 10 [place] locking pigtail drainage catheter was placed into the collection over a 0.035 inch Amplatz Super Stiff wire. The collection was aspirated, and communication to the 2 inferior pelvic collections was noted. Next, we turned our attention to the multiloculated right hip and thigh collection. Given the significant loculation, only aspiration for microbiology was performed as leaving a drainage catheter would be futile. Under CT guidance, a one-step needle was directed into a dominant component of the collection over the greater trochanter. This yielded very thick pus. A sample was sent for microbiology. Following these 3 procedures, we did a postprocedure CT abdomen, which demonstrated the 2 locking pigtail catheters in excellent position. The abscesses were decreased in size. There was no evidence of immediate complication. Next, we repositioned the patient into a lateral decubitus position with the right side up. Localizing CT redemonstrated the right loculated pleural fluid, suspicious for empyema. Under CT guidance, a one-step needle was directed into the loculated collection. This yielded jackie pus. 75 mL of pus was aspirated. There was only minimal fluid remaining in the loculated collection following this aspiration, and therefore the decision was made not to leave a drainage catheter. Post procedure CT of the chest demonstrates near resolution of the loculated collection without evidence of pneumothorax. Good hemostasis was achieved at all sites. Orders were written to the chart. The findings were discussed with both infectious disease, surgery, and the housestaff. The patient returned to her inpatient bed in good condition . IMPRESSION: 1. Successful CT and ultrasound-guided right upper quadrant abscess drainage. 2. Successful CT and ultrasound-guided left lower quadrant abscess drainage, which appeared to communicate with inferior and deeper pelvic collections. 3. Successful CT guided right hip abscess aspiration. 4. Successful CT-guided right empyema aspiration. Plan: Monitor drainage output with flushes 2-3 times daily. Consider repeat imaging prior to drainage removal to ensure resolution of the abdominal and pelvic collections. Given how loculated the collections in the right hip and thigh appear with difficult aspiration of very thick pus/debris, percutaneous drainage of these collections is of unlikely benefit. Surgical options should be considered.
[2016-08-28] MEDS ORDERED: HYDROMORPHO2 MG/1 M3 IV (10:47)
--- NOTE | 2016-08-28 11:37 | PN- Infect Dx ---
Subjective Subjective: Afebrile. She complains of pain diffusely, including her abdomen, right leg/hip and right elbow. Objective Last 24 Hrs of Vital Signs/I&O Vital Signs Date Time Temp Pulse Resp B/P Pulse O2 O2 Flow FiO2 Ox Delivery Rate 08/28 0839 102 100/60 08/28 0647 97.8 122 20 96/44 93 Room Air 08/27 2223 98.4 98 20 102/58 94 Room Air 08/27 2217 91 Room Air 08/27 1700 97.8 110 18 98/54 93 Room Air 08/27 1635 98.2 107 18 90/50 94 Room Air 08/27 1434 Nasal 5.0L Cannula 08/27 1137 97.8 102 20 106/70 93 Room Air Intake & Output 08/28 1600 08/28 0800 08/28 0000 Intake Total 250 Output Total 540 530 Balance -540 -280 Intake, Oral 0 Intake, Tube 110 Feeding Intake, Tube 140 Irrigant Output, 290 530 Drainage Output, Urine 250 Physical Exam Other Physical Findings: She appears comfortable in no acute distress Chest Pro-Line in the left upper chest with no inflammation at the site Lungs are clear Heart regular rhythm with no murmur Abdomen soft, tender on minimal palpation; BLANCA drain with purulent fluid, with 675 mL output yesterday and 200 mL overnight; 2 percutaneous drains placed August 27 by IR with 30 mL output from one and 60 mL output from the other overnight Extremities right elbow wound with packing in place, with drainage on the dressing, tender to palpation; right triceps erythema and fluctuance, nontender to palpation; bilateral lower extremity edema, right greater than left, with pain on minimal movement of the right leg Results Last 24 Hours of Lab Results: Laboratory Tests 08/28 0640 Chemistry Sodium (137 - 145 mmol/L) 132 L Potassium (3.5 - 5.1 mmol/L) 5.0 Chloride (98 - 107 mmol/L) 97 L Carbon Dioxide (22 - 30 mmol/L) 28 Anion Gap (5 - 16) 7 BUN (7 - 17 mg/dL) 26 H Creatinine (0.5 - 1.0 mg/dL) 0.7 Estimated GFR (>60 ml/min) > 60 BUN/Creatinine Ratio (7 - 25 %) 37.1 H Hematology CBC w Diff MAN DIFF ORDERED WBC (4.8 - 10.8 /CUMM) 19.6 H RBC (4.20 - 5.40 /CUMM) 2.95 L Hgb (12.0 - 16.0 G/DL) 8.4 L Hct (37 - 47 %) 25.6 L MCV (81.0 - 99.0 FL) 86.6 MCH (27.0 - 31.0 PG) 28.5 RDW (11.5 - 14.5 %) 23.1 H Plt Count (130 - 400 /CUMM) 363 MPV (7.4 - 10.4 FL) 8.3 Gran % (42.2 - 75.2 %) 86.0 H Lymphocytes % (20.5 - 51.1 %) 6.5 L Monocytes % (1.7 - 9.3 %) 3.6 Eosinophils % (0 - 5 %) 3.7 Basophils % (0.0 - 2.0 %) 0.2 Absolute Granulocytes (1.4 - 6.5 /CUMM) 16.9 H Segmented Neutrophils (42.2 - 75.2 %) 79 H Band Neutrophils (0.0 - 5.0 %) 11 H Absolute Lymphocytes (1.2 - 3.4 /CUMM) 1.3 Lymphocytes (20.5 - 51.1 %) 2 L Monocytes (1.7 - 9.3 %) 6 Absolute Monocytes (0.10 - 0.60 /CUMM) 0.7 H Eosinophils (0 - 5.0 %) 2 Absolute Eosinophils (0.0 - 0.7 /CUMM) 0.7 Absolute Basophils (0.0 - 0.2 /CUMM) 0 Platelet Estimate (ADEQUATE) VERIFIED BY SMEAR Polychromasia 1+ Anisocytosis 2+ PUBS MCHC (33.0 - 37.0 G/DL) 32.9 L Last 24 Hours of [place] Results: Right hip bursal culture August 27 positive for Staph aureus Right empyema culture August 27 no growth so far Right upper quadrant and left lower quadrant collections August 27 no growth so far Assessment/Plan Impression: Stable with temperatures remaining normal though with increasing white blood cell count with bandemia status post IR drainage yesterday of multiple fluid collections throughout the abdomen and pelvis, presumably related to her surgery 16 days ago for gastric perforation, and of the right greater trochanteric bursa fluid, which is growing Staph aureus, presumably related to her right pelvic abscess which was noted on admission (and drained initially 27 days ago) and is likely related to seeding of her inferior pubic ramus fracture, and of the right empyema, which was likely residual from her previous hydropneumothorax. She remains on Meropenem and Fluconazole, which can be continued pending final cultures. She continues to have a significant amount of purulent drainage from the BLANCA drain, felt to be secondary to a leak at the surgical site, with no surgical intervention apparently planned for this at this time. Her right olecranon bursa was drained 5 days ago, with overall improvement, though she continues to have drainage from this area and now has a new area of fluctuance proximal to this. Given the significant amount of inflammation in the right hip area, throughout the muscles of the right hemipelvis and proximal right thigh and extending to the right knee and to the gluteal area suspect she will require open drainage. This has been discussed with Orthopedics who does not feel that this can be done here and recommends transfer to a facility where this can be performed. Suggestion: 1. Follow-up recent cultures 2. Await possible transfer to [place] 3. Continue Meropenem and Fluconazole pending above
[2016-08-28 11:49] VITALS: BP 100/58
--- NOTE | 2016-08-28 11:53 | NUR ---
NURSING NOTE: R.T PLACED PT ON 4L NC, ROOM AIR SAT 77% WHEN R.T WOKE HER UP FOR A TREATMENT. VITALS OBTAINED AND STABLE. PT DENIES DISTRESS, S/P THORACENTESIS YESTERDAY, DR MORATAYA MADE AWARE, CONT TO MONITOR. 4L NC 98%. PT ENC TO USE INSENTIVR SPIR
--- NOTE | 2016-08-28 12:19 | PN- General Surgery ---
See Addendum Subjective Subjective: Patient continues to complain of pain in the abdomen, right lower extremity right upper extremity Objective Vital Signs and I&Os Vital Signs Date Time Temp Pulse Resp B/P Pulse O2 O2 Flow FiO2 Ox Delivery Rate 08/28 1149 98.6 104 20 100/58 98 Nasal 4.0L Cannula 08/28 1140 94 Nasal 4.0L Cannula 08/28 0839 102 100/60 08/28 0647 97.8 122 20 96/44 93 Room Air 08/27 2223 98.4 98 20 102/58 94 Room Air 08/27 2217 91 Room Air 08/27 1700 97.8 110 18 98/54 93 Room Air 08/27 1635 98.2 107 18 90/50 94 Room Air 08/27 1434 Nasal 5.0L Cannula Intake & Output 08/28 1600 08/28 0800 08/28 0000 08/27 1600 08/27 0800 08/27 0000 Intake Total 250 375 600 600 Output Total 540 530 125 990 500 Balance -540 -280 250 -390 100 Intake, IV 375 600 600 Intake, Oral 0 0 Intake, Tube 110 Feeding Intake, Tube 140 Irrigant Number 0 1 1 Bowel Movements Output, 290 530 125 390 200 Drainage Output, Urine 250 600 300 Physical Exam: Well-developed well-nourished no apparent distress. HEENT: Atraumatic, Neck: Supple, no lymphadenopathy Respiratory: No respiratory distress Abdomen: Drains and J tube in place, purulent drainage noted. transverse abd wound healing. Extremities: RUE - modearte thin purulent drainage from elbow. RLE thight swelling and tenderness, pain with ROM. Neuro: Alert and oriented x3 Psych: anxous, normal memory normal judgment. 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 Patient also status post I&D right elbow-continues to drain purulent fluid Status post multiple IR drainage from intra-abdominal intrapelvic collections and cultures yesterday Continues on antibiotics per ID White count increasing, intra-abdominal and pelvic infections continues to worsening tracking down into her right lower extremity, discussed with Dr. Schulz, orthopedic surgery, recommends transfer to a tertiary care facility for further management and treatment of her worsening infections. Discussed with Lan Trammell MD, general surgery. Core Measures/Miscellaneous Venous Thromboembolism VTE Risk Factors: Acute medical illness VTE Contraindications: No Contraindications VTE Diagnosis: No VTE Type: NONE VTE Confirmed by (Test): NONE Beta Jimmy Is Beta Jimmy a Home Med? No Antibiotics Is Patient on Antibiotics? No
--- NOTE | 2016-08-28 12:54 | RADIOLOGY REPORT ---
EXAMINATION: XR PORTABLE CHEST CLINICAL INFORMATION: Hypoxia. Recent thoracentesis. COMPARISON: Chest x-ray done on 08/16/2016. TECHNIQUE: Portable AP view of the chest was obtained. FINDINGS: Low lung volume is present. There is a [id number] amount of right-sided pleural effusion present; appears improved since prior study. Possible extension of disease noted within the right minor fissure. There is a left-sided central line present, with its tip seen at the cavoatrial junction. The cardiomediastinal silhouette is mildly enlarged possibly related to technique, unchanged. IMPRESSION: The size of the right-sided pleural effusion/presumed empyema appears smaller since 08/16/2016. No other significant change.
--- NOTE | 2016-08-28 13:42 | PN- Orthopedic ---
Subjective Subjective: Patient was seen and examined on 08/27/2016. She reports improvement in right elbow pain, but still has difficulty with range of motion secondary to pain. She does not like to amount of drainage coming for her elbow and requests more frequent external dressing changes. Patient was subsequently taken to IR for guided drainage of R chest, RUQ, and LLQ fluid collections. Per conversation with the IR radiologist, Kristian Garcia, yesterday afternoon, he was unable to aspirate the collections surrounding the right greater trochanter as the material was too thick. He notes communication of the collections involving the gluteus, iliacus, and the anterior, lateral and posterior thigh. No evidence of infection in the right hip joint and no effusion. Objective Vital Signs and I&Os Vital Signs Date Time Temp Pulse Resp B/P Pulse O2 O2 Flow FiO2 Ox Delivery Rate 08/28 1149 98.6 104 20 100/58 98 Nasal 4.0L Cannula 08/28 1140 94 Nasal 4.0L Cannula 08/28 0839 102 100/60 08/28 0647 97.8 122 20 96/44 93 Room Air 08/27 2223 98.4 98 20 102/58 94 Room Air 08/27 2217 91 Room Air 08/27 1700 97.8 110 18 98/54 93 Room Air 08/27 1635 98.2 107 18 90/50 94 Room Air 08/27 1434 Nasal 5.0L Cannula Intake & Output 08/28 1600 08/28 0800 08/28 0000 08/27 1600 08/27 0800 08/27 0000 Intake Total 250 375 600 600 Output Total 540 530 125 990 500 Balance -540 -280 250 -390 100 Intake, IV 375 600 600 Intake, Oral 0 0 Intake, Tube 110 Feeding Intake, Tube 140 Irrigant Number 0 1 1 Bowel Movements Output, 290 530 125 390 200 Drainage Output, Urine 250 600 300 Physical Exam: Patient examined yesterday (08/27/2016) prior to guided aspirations. Alert, oriented, in no acute distress. Resting supine in bed. RUE: Purulent brownish drainage noted from right elbow wound. Erythema surrounding right proximal and distal elbow. Tender over proximal forearm, mild tenderness over posterior triceps/anterior biceps. Elbow ROM 20-100, pain noted with attempt to fully straighten arm. Intact finger manager track, wrist flexion/extension Sensation intact to light touch over left left hand median/ulnar/radial nerve distribution Palpable radial pulse, hand warm and well-perfused. Results Recent Imaging Studies: CT scan abdomen/pelvis and RLE 08/27/2016: "There is also a multiloculated collection in the right hemipelvis, with a 3.6 x 6.2 cm component abutting the bladder, with fluid tracking along the iliacus muscle, and extending around the acetabulum, right hip joint, into the greater trochanteric bursa. There are no new sites of abscess. MUSCULATURE: There are abscesses overlying or involving the right gluteal muscles. There are multifocal abscesses involving and displacing right thigh muscles, in both anterior and posterior compartments." Assessment/Plan Assessment/Plan 41yo F with history of multiple superficial abscesses presented in July 2016 with a right pelvic abscess in proximimity to old rami fractures; initially addressed with IR-guided drainage. She also had erythema of the RUE consistent with cellulitis that initially improved on IV abx; no advanced imaging of the RUE was obtained due to patient compliance. 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 Repeat imaging of the abdomen/pelvis showed persisted pelvis abscesses and additional loculated collections in the region of the iliacus, acetabulum, gluteus, greater trochanter, and extending down into the right thigh musculature. Per discussionw with IR, then collections are likely in continuity and too thick to undergo guided aspiration and drainage. No evidence of intra- articular right hip infection. Given the location and extent of abscess formation in the pelvis and right leg, recommend transfer of this patient to a tertiary care center for debridement of pelvic and thigh abscesses. This will likely require extensive debridement by either orthopaedics or general surgery with complex post-operative care. Regarding the right upper extremity, continue dressing changes and wound packing to allow bursa to continue to drain. Recommend further imaging of the RUE to assess for additional abscesses/fluid collections or fluid collections.
[2016-08-28 13:43] VITALS: BP 102/48
[2016-08-28] MEDS ORDERED: ALBUTEROL2.5 MG/3 M INH (16:29)
[2016-08-28] MEDS ORDERED: SANTYL30 GM TOP (16:29)
[2016-08-28] MEDS ORDERED: VOLTAREN100 GM TOP (16:30)
[2016-08-28] MEDS ORDERED: NOVOLIN R100 UNIT/1 SC (16:30)
[2016-08-28] MEDS ORDERED: HEPARIN SO5000 UNIT3 SC (16:30)
[2016-08-28] MEDS ORDERED: MICONAZOLE NITR45 GM VAG (16:34)
[2016-08-28] MEDS ORDERED: MEROPENEM1 G1 IV (16:34)
[2016-08-28] MEDS ORDERED: PROTONIX40 M3 IV (16:35)
[2016-08-28] MEDS ORDERED: NYSTATIN15 G1 TOP (16:35)
--- NOTE | 2016-08-28 17:28 | NUR ---
TUBE FEED INCREASED TO GOAL RATE OF 75CC/HR
[2016-08-28] MEDS ORDERED: DIPHENHYDR50 MG/1 M1 IV (18:25)
== END 2016-08-28 21:43 | disposition short-term general hospital (02) | DRG 711 ==
LOC: ENRESERVTM → ENRESERVDT → ERH 23:31 → ERHI 07-28 13:12 → CRI 07-28 13:12 → 2NB 07-28 13:12 → 2NA 07-28 13:12 → CRI 08-01 15:28 → 2NB 08-04 21:16 → CRI 08-05 17:05 → 2NA 08-08 20:36 → CRI 08-10 09:17 → 2NB 08-21 22:37
PROVIDERS: Emergency Medicine; Internal Medicine; Internal Medicine Interventional Cardiology; Radiology Diagnostic Radiology; Student in an Organized Health Care Education/Training Program; ADMIT Internal Medicine
PROC: 0W9J30Z Drainage of Pelvic Cavity with Drainage Device, Percutaneous Approach (ICD-10-PCS; principal; 2016-08-01)
PROC: 05HN33Z Insertion of Infusion Device into Left Internal Jugular Vein, Percutaneous Approach (ICD-10-PCS; 2016-08-02)
PROC: 0DHA3UZ Insertion of Feeding Device into Jejunum, Percutaneous Approach (ICD-10-PCS; 2016-08-12)
PROC: 0DB60ZZ Excision of Stomach, Open Approach (ICD-10-PCS; 2016-08-12)
PROC: 30233N1 Transfusion of Nonautologous Red Blood Cells into Peripheral Vein, Percutaneous Approach (ICD-10-PCS; 2016-08-18)
PROC: 0R9L3ZX Drainage of Right Elbow Joint, Percutaneous Approach, Diagnostic (ICD-10-PCS; 2016-08-23)
DX: T81.4XXA Infection following a procedure, initial encounter (principal); A41.9 Sepsis, unspecified organism; L02.91 Cutaneous abscess, unspecified; S30.0XXA Contusion of lower back and pelvis, initial encounter; W19.XXXA Unspecified fall, initial encounter; Z91.81 History of falling; Y92.009 Unspecified place in unspecified non-institutional (private) residence as the place of occurrence of the external cause; E11.65 Type 2 diabetes mellitus with hyperglycemia; Z79.4 Long term (current) use of insulin; Z91.19 Patient's noncompliance with other medical treatment and regimen; Z87.828 Personal history of other (healed) physical injury and trauma; R45.851 Suicidal ideations; T81.12XA Postprocedural septic shock, initial encounter; N17.0 Acute kidney failure with tubular necrosis
CPT/HCPCS: 04007; 2NAP; 2NBP; 84133; 84300; 87070; 87075; 87106; 87107; 87143; 87149; 87184; 87186; CCU; 36415; 73060-RT; 73070-RT; 73090-RT; 74000; 74176; 74177; 74241; 75989; 76775; 76881; 77001; 80307; 81001; 82436; 82570; 86920; 87040; 87071; 87086; 87147; 87389; 88305; 93005; 93010; 94799; 97110-GO; 97162-GP; 97530-GO; 99232; C1769; G0463; J0131; J0696; J1170; J1200; J1450; J1642; J1644; J1650; J1815; J1885; J2060; J2185; J2310; J2405; J2543; J2550; J2997; J3010; J3370; J3490; J7040; J7042; J7060; P9016; P9047

== ENCOUNTER 2017-06-19 09:03 | Inpatient (IN) | payer OTHER ==
[~2017-06-19] VITALS: Ht 167.6 cm; Wt 104.3 kg
[~2017-06-19 09:03] MED LIST changes: +ACEPHEN650 M1 PR; +ACIDOPHILUS1 EACH PO; +ALBUTEROL2.5 MG/3 M INH; +AMBIEN10 M1 PO; +ASPIRIN EC81 M1 PO; +ATORVASTATIN CA40 M1 PO; +AUGMENTIN 875-1 EACH PO; +BANOPHEN50 MG PO; +COMPAZINE25 M1 PR; +DESITIN DIAPER28 GM TOP; +DIPHENHYDR50 MG/1 M1 IV; +DOCUSATE SODIU1 EACH PO; +DOXYCYCLINE HY100 M4 PO; +DULCOLAX10 M1 RC; +ENEMA133 M1 RC; +ESCITALOPRAM OX10 MG PO; +HEMORRHOIDAL CR51 GM PR; +HEPARIN SO5000 UNIT3 SC; +HYDROMORPHO1 MG/1 M4 PO; +HYDROMORPHO2 MG/1 M3 IV; +IPRAT-ALBUT 0.5-3 ML INH; +KEFLEX500 M1 PO; +LANTUS100 UNIT/1 SC; +LIDODERM1 EACH EXT; +LYRICA25 M1 PO; +MAPAP325 M1 PO; +MEROPENEM1 G1 IV; +MICONAZOLE NITR45 GM VAG; +MILK OF MA400 MG/52 PO; +MULTIVITAMINS1 EAC3 PO; +NOVOLIN R100 UNIT/1 SC; +NYSTATIN15 G1 TOP; +OMEPRAZOLE20 M2 PO; +PROCHLORPERAZIN10 MG PO; +PROSOURCE275 GM PO; +PROTONIX40 M3 IV; +REMERON45 M1 PO; +SANTYL30 GM TOP; +VITAMIN C500 M8 PO; +VOLTAREN100 GM TOP
--- NOTE | 2017-06-19 09:59 | ED GENERAL ADULT ---
History of Present Illness General Chief Complaint: General Adult Stated Complaint: ?PNA LOW WHITE BLD CELL COUNT/? CELLULITIS Source: patient, old records, EMS, W10 Exam Limitations: no limitations Vital Signs & Intake/Output Vital Signs & Intake/Output Vital Signs Date Time Temp Pulse Resp B/P B/P Pulse O2 O2 Flow FiO2 Mean Ox Delivery Rate 06/20 0726 98.1 111 22 122/68 95 Nasal 2.0L Cannula 06/20 0000 94 Nasal 2.0L Cannula 06/19 2323 98.4 106 20 134/72 94 06/19 2200 Nasal 2.0L Cannula 06/19 1846 97.6 110 20 122/62 98 Room Air 06/19 1616 98.1 103 20 114/58 98 Room Air 06/19 1344 96 Nasal 2.0L Cannula ED Intake and Output 06/20 0000 06/19 1200 Intake Total 680 0 Output Total 2300 Balance -1620 0 Intake, Oral 680 0 Output, Urine 2300 Patient 230 lb 230 lb Weight Weight Reported by Patient Measurement Method Allergies Coded Allergies: codeine (Intermediate, HIVES 06/17/16) nickel (Intermediate, RASH 06/17/16) adhesive tape (Mild, RASH 06/17/16) duloxetine (Intermediate, NAUSEA 06/17/16) hydrocodone (GI UPSET (ESOPHAGITIS) 06/17/16) ibuprofen (GI UPSET (ESOPHAGITIS) 06/17/16) Triage Note: PT BIBA FROM ECF FOR POSSIBLE PNA AND PER PT "THEY SAID I NEED A BLOOD TRANSFUSION." REPORTS MILD SOB. NO DISTRESS NOTED. NON HEALING "ABCESS" TO LATERAL SIDE OF RIGHT LEG WITH YELLOW WOUND BED AND REDNESS AND WARMTH TO PERIPHERY. Triage Nurses Notes Reviewed? yes Onset: Abrupt Duration: day(s):, week(s): Timing: recent history Injury Environment: home No Modifying Factors: none HPI: 41-year-old female comes into emergency room for further evaluation of pain and swelling to her lower legs as well as some shortness of breath. 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, with recurrent MSSA sepsis, recurrent left perirenal abscess, right-sided hemorrhagic pleural effusion s/p pleurx catheter, left pararenal abscess, osteomyelitis of pubic bone, admitted to [facility] (July 2016) for multiple abscesses (abdomen and plevis) with peritonitis with MSSA sepsis (2/2 gangrenous stomach s/p partial gastrectomy) with significant extension of the inflammation into the right hemipelvis and thigh that required open drainage and wound VAC, requiring transfer to [facility] ( through 12/05/2016) as well as multiple abscesses, gastric perforation and septic shock, cellulitis and acute kidney injury that required 3 sessions of hemodialysis (November 2016). Patient is currently at skilled nursing. She was recently admitted for upper GI bleed. Patient reports that she's had some shortness of breath with mucus production and cough. She's had some increased swelling to her legs bilaterally currently has a wound VAC in the right leg. She denies any vomiting. She's been on oxygen for the past month which is not normal for her. She was sent in for further evaluation from nursing facility. (José Miguel JOSHI,Ar) Reconcile Medications Acetaminophen (Acephen) 650 MG SUPP.RECT 1 SUPP TN Q4H PRN PAIN/TEMP>101 ( Reported) Acetaminophen (Mapap) 325 MG TABLET 2 TAB PO Q4H PRN PAIN/TEMP/>101 (Reported ) Albuterol Sulfate 2.5 MG/3 ML (0.083 %) VIAL.NEB 1 VIAL INH Q6H PRN SOB ( Reported) Albuterol Sulfate (Proair Hfa) 90 MCG HFA.AER.AD 2 PUF INH Q4H PRN RESP. ( Reported) Ascorbic Acid (Vitamin C) 500 MG TABLET 1 TAB PO BID SUPPLEMENT (Reported) Aspirin (Ecotrin*) 81 MG TABLET.DR 1 TAB PO DAILY HEART/BLOOD (Reported) Atorvastatin Calcium 40 MG TABLET 1 TAB PO DAILY CHOLESTEROL (Reported) Bisacodyl (Dulcolax) 10 MG SUPP.RECT 1 SUP RC DAILY PRN NO BM (Reported) Cephalexin (Keflex) 500 MG CAPSULE 1 CAP PO BID Antibiotic suppression Start on May 07 (after Augmentin finishes). This will be continued indefinitely for suppression. Cod Liver Oil/Zinc Oxide (Desitin Diaper Rash 40% Paste) 40 % PASTE..G. 1 DEMETRA TOP BID Sacral ulcer Diphenhydramine HCl (Banophen) 50 MG CAPSULE 1 CAP PO BID SLEEP (Reported) Ergocalciferol (Vitamin D2) (Vitamin D2) 50,000 UNIT CAPSULE 1 CAP PO QW SUPPLEMENT (Reported) Escitalopram Oxalate 10 MG TABLET 1 TAB PO DAILY MENTAL HEALTH (Reported) Furosemide (Lasix) 20 MG TABLET 1 TAB PO DAILY DIURETIC (Reported) Hydromorphone HCl 1 MG/ML LIQUID 3 ML PO Thursday PRIOR TO WOUND VAC CHANGE (Reported) Insulin Aspart (Novolog) 100 UNIT/ML VIAL 0 UNITS SC AT BEDTIME Diabetes Blood Glucose Insulin less than 250 0 units 251-300 2 units 301-350 3 units 351-400 4 units more than 400 5 units Insulin Aspart (Novolog) 100 UNIT/ML VIAL 0 UNITS SC TIDAC Diabetes Blood Sugar Insulin less than 80 no insulin 80-150 3 units 151-200 4 units 201-250 5 units 251-300 6 units 300-350 7 units 301-350 8 units 351-400 9 units Insulin Detemir (Levemir) 100 UNIT/ML VIAL 20 UNITS SC BID DM (Reported) Lactobacillus Acidophilus (Acidophilus) 1 EACH CAPSULE 1 CAP PO BID PROBIOTIC (Reported) Lidocaine (Lidoderm) 5 % ADH..PATCH 1 PAT EXT DAILY Pain Magnesium Chloride (Slow-Mag) 71.5 MG TABLET.DR 1 TAB PO DAILY HYPOMAGNESEMIA Magnesium Hydroxide (Milk Of Magnesia) 400 MG/5 ML ORAL.SUSP 30 ML PO DAILY PRN NO BM IN 3 DAYS (Reported) Mirtazapine (Remeron) 30 MG TABLET 1 TAB PO QHS MENTAL HEALTH (Reported) Multivitamin,Ther and Minerals (Multivitamins With Minerals Hp) 1 EACH CAPSULE 1 CAP PO DAILY SUPPLEMENT (Reported) Na Phos,M-B/Na Phos,Di-Ba (Enema) 19 GRAM-7 GRAM/118 ML ENEMA 1 E RC DAILY PRN NO BM (Reported) Omeprazole 20 MG CAPSULE.DR 40 MG PO BID Upper GI bleed Oxycodone HCl 15 MG TABLET 1 TAB PO Q4H PRN PAIN (Reported) Phenyleph/Pramoxin/Glycr/W.pet (Hemorrhoidal Cream) 0.25 %-1 % CREAM..G. 1 DEMETRA TN Q6P PRN Hemorrhoids Pregabalin (Lyrica) 100 MG CAPSULE 1 CAP PO BID NERVE PAIN (Reported) Prochlorperazine (Compazine) 25 MG SUPP.RECT 1 SUP TN Q6H PRN N/V (Reported) Prochlorperazine Maleate 10 MG TABLET 1 TAB PO Q6 PRN COMPLAINTS OF NAUSEA ( Reported) Protein Supplement (Prosource) 275 GM POWDER 30 ML PO TID SUPPLEMENT ( Reported) Sennosides/Docusate Sodium (Docusate Sodium-Senna Tablet) 8.6 MG-50 MG TABLET 1 TAB PO BID GI (Reported) Zolpidem Tartrate (Ambien) 10 MG TABLET 1 TAB PO QHS SLEEP (Reported) (Ifeanyi FARFAN,Camille) Past History Medical History Any Pertinent Medical History? 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: ECTOPIC necrotizing fasciitis of the perineum Other Medical Hx: Left axillary abscess secondary to MSSA status post I&D November 2014 Right deltoid abscess March 2016 secondary to MSSA Recurrent abscesses in the pelvis History of MRSA: Yes History of VRE: Yes History of CDIFF: No Surgical History Surgical History: , hysterectomy, D&C colostomy with reversal left axillary abscess November 2014 status post partial gastrectomy status post multiple debridements and colostomy for necrotizing fasciitis Psychosocial History Who do you live with Patient/Self Services at Home None What is your primary language Indonesian Family History Family History, If Any: FATHER (diabetese mellitis Currently 06/16/2015- unable to get any meaningful FHx from patient, s/p drug OD.). FH: cirrhosis Hx Contributory? No (Ar Villalba) Review of Systems Review of Systems Constitutional: Reports: see HPI. EENTM: Reports: no symptoms. Respiratory: Reports: see HPI. Cardiovascular: Reports: no symptoms. GI: Reports: no symptoms. Genitourinary: Reports: no symptoms. Musculoskeletal: Reports: see HPI. Skin: Reports: see HPI. Neurological/Psychological: Reports: no symptoms. Hematologic/Endocrine: Reports: no symptoms. Immunologic/Allergic: Reports: no symptoms. All Other Systems: Reviewed and Negative (Ar Villalba) Physical Exam Physical Exam General Appearance: no apparent distress, alert, awake Head: atraumatic Eyes: Bilateral: normal appearance. Ears, Nose, Throat: normal ENT inspection, hearing grossly normal Neck: normal inspection Respiratory: no respiratory distress Cardiovascular: regular rate/rhythm Back: normal inspection Extremities: OPEN WOUND TO HIS RIGHT LATERAL THIGH,, SOME MILD ERYTHEMA, NO DISCHARGE APPRECIATED, SOME ERYTHEMA TO BILATERAL LOWER EXTREMITIES, 1+ PITTING EDEMA, Neurologic/Psych: awake, alert, oriented x 3 Skin: intact Core Measures ACS in differential dx? No CVA/TIA Diagnosis: No Sepsis Present: No Sepsis Focused Exam Completed? No (Ar Villalba) Progress Differential Diagnoses I considered the following diagnoses in my evaluation of the patient: Cellulitis, osteomyelitis, DVT, pneumonia, CHF, sepsis, acute blood loss anemia, Plan of Care: Orders Procedure Date/time Status CBC WITHOUT DIFFERENTIAL 06/21 0600 Active BASIC ELECTROLYTES PLUS BUN&CR 06/21 0600 Active Consistent Carbohydrate 1 06/20 B Active LEUKOCYTE POOR (PACKED CELLS) 06/20 1046 Active TOTAL IRON BINDING CAPACITY 06/20 0845 Active FERRITIN 06/20 0845 Active SERUM IRON 06/20 0845 Active CBC WITHOUT DIFFERENTIAL 06/20 0600 Complete BASIC ELECTROLYTES PLUS BUN&CR 06/20 0600 Active Wound Care/Dressing 06/20 0002 Active TRC EVALUATION (GEN) 06/20 UNK Active Lab Add-on Test 06/20 UNK Active Hemoccult 06/20 UNK Active Regular Diet 06/19 D Complete Vital Signs 06/19 2318 Active Teach/Educate 06/19 2318 Active Pain Treatment and Response 06/19 2318 Active Nutritional Intake, Monitor 06/19 2318 Active Isolation 06/19 2318 Active Intake & Output 06/19 2318 Active Patient Care Conference 06/19 2318 Active Activity/Ambulation 06/19 2318 Active Patient Data 06/19 1934 Active TRC EVALUATION (GEN) 06/19 1837 Active ED Holding Orders 06/19 1658 Active Admit to inpatient 06/19 1658 Active Vital Signs 06/19 1658 Active Code Status 06/19 1658 Active Add-on Test (ER Only) 06/19 1559 Active Intake & Output 06/19 0959 Active B-TYPE NATRIURETIC PEP (BNP) 06/19 0927 Complete House Staff 06/19 UNK Active Nursing Misc 06/19 UNK Active FingerStick- Glucose 06/19 UNK Active ECHOCARDIOGRAM 06/19 UNK Active Current Medications Sig/Shahla Start time Last Medication Dose Stop Time Status Admin Ergocalciferol 50,000 IU Th 06/25 1000 AC (Drisdol) Hydromorphone HCl 2 MG Q6P PRN 06/20 1245 AC (Dilaudid) Enoxaparin Sodium 40 MG DAILY 06/20 1000 AC (Lovenox) Insulin Aspart 0 TIDAC 06/20 0800 AC (NovoLOG) Diphenhydramine HCl 25 MG AT BEDTIME PRN 06/19 2345 AC 06/20 (Benadryl) 0042 Phenylephrine HCl 1 DEMETRA Q6P PRN 06/19 2345 AC (Formulation R (HEMORRHOIDAL OINT) 30GM) Senna/Docusate Sodium 1 TAB BID PRN 06/19 2345 AC (Senokot S) Cephalexin 500 MG BID 06/19 2200 AC 06/20 (Keflex 500MG Cap) 0039 Insulin Detemir 20 UNITS BID 06/19 2200 AC 06/20 (Levemir) 0846 Mirtazapine 30 MG AT BEDTIME 06/19 2200 AC 06/20 (Remeron) 0039 Pregabalin 100 MG BID 06/19 2200 AC 06/20 (Lyrica) 0039 Zinc Oxide 1 DEMETRA BID 06/19 2200 AC 06/20 (Desitin) 0043 Acetaminophen 500 MG Q6P PRN 06/19 1945 AC (Tylenol) Oxycodone HCl 15 MG Q4 HRS NEEDED PRN 06/19 194 AC 06/20 (Roxicodone) 0426 Lidocaine 1 PAT DAILY 06/19 1926 AC (Lidoderm) Laboratory Tests 06/20/17 0845: Anion Gap 12, Estimated GFR > 60, BUN/Creatinine Ratio 48.3 H, Iron 15 L, TIBC 423, Ferritin Pending, CBC w Diff NO MAN DIFF REQ, RBC 2.88 L, MCV 77.6 L, MCH 23.9 L, MCHC 30.8 L, RDW 18.0 H, MPV 8.3, Gran % 80.5 H, Lymphocytes % 12.7 L, Monocytes % 6.6, Eosinophils % 0.1, Basophils % 0.1, Absolute Granulocytes 3.5, Absolute Lymphocytes 0.5 L, Absolute Monocytes 0.3, Absolute Eosinophils 0 , Absolute Basophils 0 Microbiology 06/19 2030 BLOOD: Blood Culture - RES Diagnostic Imaging: Viewed by Me: Radiology Read. Discussed w/RAD: Radiology Read. Radiology Impression: PATIENT: SIS MARTINI PRESENT AGE: 41 PATIENT ACCOUNT NO: [id number] : 76 LOCATION: [facility] ORDERING PHYSICIAN: Ar JOSHI SERVICE DATE: 06/19/17 EXAM TYPE : RAD - XRY-PORTABLE CHEST XRAY EXAMINATION: XR PORTABLE CHEST CLINICAL INFORMATION: Shortness of breath COMPARISON: 04/25/2017 TECHNIQUE: Portable frontal view of the chest was obtained. FINDINGS: Persistent bibasilar atelectasis and right pleural effusion, similar to the previous study. Stable cardiomediastinal silhouette. Central vascular congestion. The right IJ central venous catheter has been removed. No pneumothorax. IMPRESSION: Persistent bibasilar atelectasis and small right pleural effusion. Central vascular congestion. DICTATED BY: Mohinder Thornotn MD DATE/TIME DICTATED:06/19/171101 RACKING MACHINE OPERATOR:SHELBIE DATE/TIME TRANSCRIBED:06/19/171101 CONFIDENTIAL, DO NOT COPY WITHOUT APPROPRIATE AUTHORIZATION. <Electronically signed in Other Vendor System> SIGNED BY: Mohinder Thornton MD 06/19/17 1115 Initial ED EKG: normal sinus rhythm, rate (105) (Ar Villalba) Departure Departure Disposition: STILL A PATIENT Condition: Stable Clinical Impression Primary Impression: CHF (congestive heart failure) Secondary Impressions: Fluid overload, Symptomatic anemia Referrals: Patricia Lynch MD (PCP/Family) Departure Forms: Customer Survey General Discharge Information Admission Note Spoke With: Fabiola Silva MD Documentation of Exam: Documentation of any treatments & extenuating circumstances including Concerns Regarding Discharge (functional status, medication knowledge or non-compliance, living conditions, etc.) that warrant an admission rather than observation: Patient will require IV Lasix. Blood transfusion. Cardiac consultation. Cardiac telemetry. Echocardiogram. (Ar Villalba) PA/POTATO SEED CUTTER Co-Sign Statement Statement: ED Attending supervision documentation- [] I saw and evaluated the patient. I have also reviewed all the pertinent lab results and diagnostic results. I agree with the findings and the plan of care as documented in the PA's/POTATO SEED CUTTER's documentation. [X] I have reviewed the ED Record and agree with the PA's/POTATO SEED CUTTER's documentation. [] Additions or exceptions (if any) to the PAs/POTATO SEED CUTTER's note and plan are summarized below: [] (Ifeanyi FARFAN,Camille) Critical Care Note Critical Care Note Critical Care Time: 30-74 min (35) (José Miguel JOSHI,Ar)
[2017-06-19 10:06] LABS: ABSOLUTE BASOPHIL COUNT 0 /CUMM (0.0-0.2); ABSOLUTE EOSINOPHIL COUNT 0.6 /CUMM (0.0-0.7); ABSOLUTE GRANULOCYTE CT 2.9 /CUMM (1.4-6.5); ABSOLUTE LYMPH COUNT 0.7 /CUMM (1.2-3.4); ABSOLUTE MONOCYTE COUNT 0.2 /CUMM (0.10-0.60); BASOPHIL % 0.2 % (0.0-2.0); HEMATOCRIT 25.1 % (37-47); MEAN CORPUSCULAR HGB 23.8 PG (27.0-31.0); MEAN CORPUSCULAR HGB CONC 30.5 G/DL (33.0-37.0); MEAN CORPUSCULAR VOLUME 78.2 FL (81.0-99.0); MEAN PLATELET VOLUME 8.8 FL (7.4-10.4); RBC DISTRIBUTION WIDTH 17.4 % (11.5-14.5); RED BLOOD CELL CT 3.21 /CUMM (4.20-5.40); WHITE BLOOD CELL COUNT 4.4 /CUMM (4.8-10.8)
[2017-06-19 10:12] LABS: PT 10.6 SEC (9.4-12.5); PTT 24 SEC (25-37)
[2017-06-19 10:19] LABS: GRANULOCYTE % 65.9 % (42.2-75.2); PLATELET COUNT 213 /CUMM (130-400)
--- NOTE | 2017-06-19 11:15 | RADIOLOGY REPORT ---
EXAMINATION: XR PORTABLE CHEST CLINICAL INFORMATION: Shortness of breath COMPARISON: 04/25/2017 TECHNIQUE: Portable frontal view of the chest was obtained. FINDINGS: Persistent bibasilar atelectasis and right pleural effusion, similar to the previous study. Stable cardiomediastinal silhouette. Central vascular congestion. The right IJ central venous catheter has been removed. No pneumothorax. IMPRESSION: Persistent bibasilar atelectasis and small right pleural effusion. Central vascular congestion.
--- NOTE | 2017-06-19 17:06 | History & Physical ---
General Information and HPI Allergies/Medications Allergies: Coded Allergies: codeine (Intermediate, HIVES 06/17/16) nickel (Intermediate, RASH 06/17/16) adhesive tape (Mild, RASH 06/17/16) duloxetine (Intermediate, NAUSEA 06/17/16) hydrocodone (GI UPSET (ESOPHAGITIS) 06/17/16) ibuprofen (GI UPSET (ESOPHAGITIS) 06/17/16) Home Med list Acetaminophen (Acephen) 650 MG SUPP.RECT 1 SUPP NH Q4H PRN PAIN/TEMP>101 ( Reported) Acetaminophen (Mapap) 325 MG TABLET 2 TAB PO Q4H PRN PAIN/TEMP/>101 (Reported ) Albuterol Sulfate 2.5 MG/3 ML (0.083 %) VIAL.NEB 1 VIAL INH Q6H PRN SOB ( Reported) Albuterol Sulfate (Proair Hfa) 90 MCG HFA.AER.AD 2 PUF INH Q4H PRN RESP. ( Reported) Ascorbic Acid (Vitamin C) 500 MG TABLET 1 TAB PO BID SUPPLEMENT (Reported) Aspirin (Ecotrin*) 81 MG TABLET.DR 1 TAB PO DAILY HEART/BLOOD (Reported) Atorvastatin Calcium 40 MG TABLET 1 TAB PO DAILY CHOLESTEROL (Reported) Bisacodyl (Dulcolax) 10 MG SUPP.RECT 1 SUP RC DAILY PRN NO BM (Reported) Cephalexin (Keflex) 500 MG CAPSULE 1 CAP PO BID Antibiotic suppression Start on May 07 (after Augmentin finishes). This will be continued indefinitely for suppression. Cod Liver Oil/Zinc Oxide (Desitin Diaper Rash 40% Paste) 40 % PASTE..G. 1 DEMETRA TOP BID Sacral ulcer Diphenhydramine HCl (Banophen) 50 MG CAPSULE 1 CAP PO BID SLEEP (Reported) Ergocalciferol (Vitamin D2) (Vitamin D2) 50,000 UNIT CAPSULE 1 CAP PO QW SUPPLEMENT (Reported) Escitalopram Oxalate 10 MG TABLET 1 TAB PO DAILY MENTAL HEALTH (Reported) Furosemide (Lasix) 20 MG TABLET 1 TAB PO DAILY DIURETIC (Reported) Hydromorphone HCl 1 MG/ML LIQUID 3 ML PO Thursday PRIOR TO WOUND VAC CHANGE (Reported) Insulin Aspart (Novolog) 100 UNIT/ML VIAL 0 UNITS SC AT BEDTIME Diabetes Blood Glucose Insulin less than 250 0 units 251-300 2 units 301-350 3 units 351-400 4 units more than 400 5 units Insulin Aspart (Novolog) 100 UNIT/ML VIAL 0 UNITS SC TIDAC Diabetes Blood Sugar Insulin less than 80 no insulin 80-150 3 units 151-200 4 units 201-250 5 units 251-300 6 units 300-350 7 units 301-350 8 units 351-400 9 units Insulin Detemir (Levemir) 100 UNIT/ML VIAL 20 UNITS SC BID DM (Reported) Lactobacillus Acidophilus (Acidophilus) 1 EACH CAPSULE 1 CAP PO BID PROBIOTIC (Reported) Lidocaine (Lidoderm) 5 % ADH..PATCH 1 PAT EXT DAILY Pain Magnesium Chloride (Slow-Mag) 71.5 MG TABLET.DR 1 TAB PO DAILY HYPOMAGNESEMIA Magnesium Hydroxide (Milk Of Magnesia) 400 MG/5 ML ORAL.SUSP 30 ML PO DAILY PRN NO BM IN 3 DAYS (Reported) Mirtazapine (Remeron) 30 MG TABLET 1 TAB PO QHS MENTAL HEALTH (Reported) Multivitamin,Ther and Minerals (Multivitamins With Minerals Hp) 1 EACH CAPSULE 1 CAP PO DAILY SUPPLEMENT (Reported) Na Phos,M-B/Na Phos,Di-Ba (Enema) 19 GRAM-7 GRAM/118 ML ENEMA 1 E RC DAILY PRN NO BM (Reported) Omeprazole 20 MG CAPSULE.DR 40 MG PO BID Upper GI bleed Oxycodone HCl 15 MG TABLET 1 TAB PO Q4H PRN PAIN (Reported) Phenyleph/Pramoxin/Glycr/W.pet (Hemorrhoidal Cream) 0.25 %-1 % CREAM..G. 1 DEMETRA NH Q6P PRN Hemorrhoids Pregabalin (Lyrica) 100 MG CAPSULE 1 CAP PO BID NERVE PAIN (Reported) Prochlorperazine (Compazine) 25 MG SUPP.RECT 1 SUP NH Q6H PRN N/V (Reported) Prochlorperazine Maleate 10 MG TABLET 1 TAB PO Q6 PRN COMPLAINTS OF NAUSEA ( Reported) Protein Supplement (Prosource) 275 GM POWDER 30 ML PO TID SUPPLEMENT ( Reported) Sennosides/Docusate Sodium (Docusate Sodium-Senna Tablet) 8.6 MG-50 MG TABLET 1 TAB PO BID GI (Reported) Zolpidem Tartrate (Ambien) 10 MG TABLET 1 TAB PO QHS SLEEP (Reported) Past History Travel History Traveled to [place] past 21 day No Medical History Neurological: peripheral neuropathy EENT: hearing loss Cardiovascular: NONE Respiratory: asthma, S/P CHEST TUBE 05/2016 Gastrointestinal: G-TUBE (REMOVED) Hepatic: NONE Renal: left pararenal abscess Musculoskeletal: OSTEOMYELITIS OF PUBIS PUBIS FX Psychiatric: anxiety, chronic pain disorder, depression, opioid dependence, POLYSUBSTANCE ABUSE NARCOTIC DEPENDENCE SUICIDAL IDEATION Endocrine: INSULIN DEPENDENT DIABETES - noncompliant Blood Disorders: anemia Cancer(s): NONE 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: ECTOPIC necrotizing fasciitis of the perineum Other Medical Hx: Left axillary abscess secondary to MSSA status post I&D November 2014 Right deltoid abscess March 2016 secondary to MSSA Recurrent abscesses in the pelvis History of MRSA: Yes History of VRE: Yes History of CDIFF: No Surgical History Surgical History: , hysterectomy, D&C colostomy with reversal left axillary abscess November 2014 status post partial gastrectomy status post multiple debridements and colostomy for necrotizing fasciitis Past Family/Social History Family History Relations & Conditions if any FATHER (diabetese mellitis Currently 06/16/2015- unable to get any meaningful FHx from patient, s/p drug OD.). FH: cirrhosis Psychosocial History Who Do You Live With? with friend Services at Home: None Primary Language: Hungarian Living Will? no Power of Financial Administration Officer/HCP? no Functional Ability ADLs Independent: dressing, eating, toileting, bathing. Ambulation: independent IADLs Independent: shopping, housework, finances, food prep, telephone, transportation , medication admin. Core Measures/Misc (02/01) Cerebrovascular Accident CVA/TIA Diagnosis: No Sepsis (View protocol) Sepsis Present: No Sepsis Present: No
[2017-06-19] MEDS ORDERED: LYRICA100 M1 PO (17:16)
[2017-06-19] MEDS ORDERED: REMERON30 M3 PO (17:18)
[2017-06-19] MEDS ORDERED: VITAMIN D250000 UNIT PO (17:19)
[2017-06-19] MEDS ORDERED: PROAIR HFA8.5 GM INH (17:20)
[2017-06-19] MEDS ORDERED: LASIX20 M1 PO (17:24)
--- NOTE | 2017-06-19 19:45 | History & Physical ---
Russel FARFAN,Nam 06/19/171944: General Information and HPI MD Statement: I have seen and personally examined SIS MARTINI and documented this H&P. The patient is a 41 year old F who presented with a patient stated chief complaint of shortness of breath. History of Present Illness: Ms. Martini is a 41 y/o F with PMH of h/o Job's syndrome, T2DM, polysubstance abuse, Bianka's gangrene/necrotizing fasciitis of the perineum, with recurrent MSSA sepsis, recurrent left perirenal abscess, right-sided hemorrhagic pleural effusion s/p pleurx catheter, left pararenal abscess, osteomyelitis of pubic bone, last admitted to [place] (July 2016) for multiple abscesses (abdomen and plevis) with peritonitis with MSSA sepsis (2/2 gangrenous stomach s/p partial gastrectomy) with significant extension of the inflammation into the right hemipelvis and thigh that required open drainage and wound VAC, requiring transfer to [facility] (08/28/2016 through 12/05/2016) as well as multiple abscesses, gastric perforation and septic shock, cellulitis and acute kidney injury that required 3 sessions of hemodialysis (November 2016), presented to the ED with chief complaint of shortness of breathing and bilateral leg swelling. Onset of symptoms about 1 or 2 weeks ago with worsening aggression now requiring O2 supplementation of 3 L nasal cannula, Associated symptoms include leg swelling but does not recall any recent weight gain. Denied any chest pain, palpitations, increased orthopnea or PND. Denies any recent infection, sick contacts or travel. Review of of system is negative for dysuria, abdominal pain ,or diarrhea. Allergies/Medications Allergies: Coded Allergies: codeine (Intermediate, HIVES 06/17/16) nickel (Intermediate, RASH 06/17/16) adhesive tape (Mild, RASH 06/17/16) duloxetine (Intermediate, NAUSEA 06/17/16) hydrocodone (GI UPSET (ESOPHAGITIS) 06/17/16) ibuprofen (GI UPSET (ESOPHAGITIS) 06/17/16) Home Med list Acetaminophen (Acephen) 650 MG SUPP.RECT 1 SUPP MO Q4H PRN PAIN/TEMP>101 ( Reported) Acetaminophen (Mapap) 325 MG TABLET 2 TAB PO Q4H PRN PAIN/TEMP/>101 (Reported ) Albuterol Sulfate 2.5 MG/3 ML (0.083 %) VIAL.NEB 1 VIAL INH Q6H PRN SOB ( Reported) Albuterol Sulfate (Proair Hfa) 90 MCG HFA.AER.AD 2 PUF INH Q4H PRN RESP. ( Reported) Ascorbic Acid (Vitamin C) 500 MG TABLET 1 TAB PO BID SUPPLEMENT (Reported) Aspirin (Ecotrin*) 81 MG TABLET.DR 1 TAB PO DAILY HEART/BLOOD (Reported) Atorvastatin Calcium 40 MG TABLET 1 TAB PO DAILY CHOLESTEROL (Reported) Bisacodyl (Dulcolax) 10 MG SUPP.RECT 1 SUP RC DAILY PRN NO BM (Reported) Cephalexin (Keflex) 500 MG CAPSULE 1 CAP PO BID Antibiotic suppression Start on May 07 (after Augmentin finishes). This will be continued indefinitely for suppression. Cod Liver Oil/Zinc Oxide (Desitin Diaper Rash 40% Paste) 40 % PASTE..G. 1 DEMETRA TOP BID Sacral ulcer Diphenhydramine HCl (Banophen) 50 MG CAPSULE 1 CAP PO BID SLEEP (Reported) Ergocalciferol (Vitamin D2) (Vitamin D2) 50,000 UNIT CAPSULE 1 CAP PO QW SUPPLEMENT (Reported) Escitalopram Oxalate 10 MG TABLET 1 TAB PO DAILY MENTAL HEALTH (Reported) Furosemide (Lasix) 20 MG TABLET 1 TAB PO DAILY DIURETIC (Reported) Hydromorphone HCl 1 MG/ML LIQUID 3 ML PO Thursday PRIOR TO WOUND VAC CHANGE (Reported) Insulin Aspart (Novolog) 100 UNIT/ML VIAL 0 UNITS SC AT BEDTIME Diabetes Blood Glucose Insulin less than 250 0 units 251-300 2 units 301-350 3 units 351-400 4 units more than 400 5 units Insulin Aspart (Novolog) 100 UNIT/ML VIAL 0 UNITS SC TIDAC Diabetes Blood Sugar Insulin less than 80 no insulin 80-150 3 units 151-200 4 units 201-250 5 units 251-300 6 units 300-350 7 units 301-350 8 units 351-400 9 units Insulin Detemir (Levemir) 100 UNIT/ML VIAL 20 UNITS SC BID DM (Reported) Lactobacillus Acidophilus (Acidophilus) 1 EACH CAPSULE 1 CAP PO BID PROBIOTIC (Reported) Lidocaine (Lidoderm) 5 % ADH..PATCH 1 PAT EXT DAILY Pain Magnesium Chloride (Slow-Mag) 71.5 MG TABLET.DR 1 TAB PO DAILY HYPOMAGNESEMIA Magnesium Hydroxide (Milk Of Magnesia) 400 MG/5 ML ORAL.SUSP 30 ML PO DAILY PRN NO BM IN 3 DAYS (Reported) Mirtazapine (Remeron) 30 MG TABLET 1 TAB PO QHS MENTAL HEALTH (Reported) Multivitamin,Ther and Minerals (Multivitamins With Minerals Hp) 1 EACH CAPSULE 1 CAP PO DAILY SUPPLEMENT (Reported) Na Phos,M-B/Na Phos,Di-Ba (Enema) 19 GRAM-7 GRAM/118 ML ENEMA 1 E RC DAILY PRN NO BM (Reported) Omeprazole 20 MG CAPSULE.DR 40 MG PO BID Upper GI bleed Oxycodone HCl 15 MG TABLET 1 TAB PO Q4H PRN PAIN (Reported) Phenyleph/Pramoxin/Glycr/W.pet (Hemorrhoidal Cream) 0.25 %-1 % CREAM..G. 1 DEMETRA MO Q6P PRN Hemorrhoids Pregabalin (Lyrica) 100 MG CAPSULE 1 CAP PO BID NERVE PAIN (Reported) Prochlorperazine (Compazine) 25 MG SUPP.RECT 1 SUP MO Q6H PRN N/V (Reported) Prochlorperazine Maleate 10 MG TABLET 1 TAB PO Q6 PRN COMPLAINTS OF NAUSEA ( Reported) Protein Supplement (Prosource) 275 GM POWDER 30 ML PO TID SUPPLEMENT ( Reported) Sennosides/Docusate Sodium (Docusate Sodium-Senna Tablet) 8.6 MG-50 MG TABLET 1 TAB PO BID GI (Reported) Zolpidem Tartrate (Ambien) 10 MG TABLET 1 TAB PO QHS SLEEP (Reported) Past History Travel History Traveled to [place] past 21 day No Medical History Neurological: peripheral neuropathy EENT: hearing loss Cardiovascular: NONE Respiratory: asthma, S/P CHEST TUBE 05/2016 Gastrointestinal: G-TUBE (REMOVED) Hepatic: NONE Renal: left pararenal abscess Musculoskeletal: OSTEOMYELITIS OF PUBIS PUBIS FX Psychiatric: anxiety, chronic pain disorder, depression, opioid dependence, POLYSUBSTANCE ABUSE NARCOTIC DEPENDENCE SUICIDAL IDEATION Endocrine: INSULIN DEPENDENT DIABETES - noncompliant Blood Disorders: anemia Cancer(s): NONE 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: ECTOPIC necrotizing fasciitis of the perineum Other Medical Hx: Left axillary abscess secondary to MSSA status post I&D November 2014 Right deltoid abscess March 2016 secondary to MSSA Recurrent abscesses in the pelvis History of MRSA: Yes History of VRE: Yes History of CDIFF: No Surgical History Surgical History: , hysterectomy, D&C colostomy with reversal left axillary abscess November 2014 status post partial gastrectomy status post multiple debridements and colostomy for necrotizing fasciitis Past Family/Social History Family History Relations & Conditions if any FATHER (maritza krause Currently 06/16/2015- unable to get any meaningful FHx from patient, s/p drug OD.). FH: cirrhosis Psychosocial History Who Do You Live With? with friend Services at Home: None Primary Language: Paraguayan Living Will? no Power of Mortar Maker/HCP? no Functional Ability ADLs Independent: dressing, eating, toileting, bathing. Ambulation: independent IADLs Independent: shopping, housework, finances, food prep, telephone, transportation , medication admin. Review of Systems Review of Systems Constitutional: Reports: no symptoms, see HPI. EENTM: Reports: no symptoms. Cardiovascular: Reports: peripheral edema. Respiratory: Reports: short of breath. GI: Reports: no symptoms. Genitourinary: Reports: no symptoms. Musculoskeletal: Reports: no symptoms. Skin: Reports: no symptoms. Neurological/Psychological: Reports: no symptoms. Hematologic/Endocrine: Reports: no symptoms. Immunologic/Allergic: Reports: no symptoms. All Other Systems: Reviewed and Negative Exam & Diagnostic Data Last 24 Hrs of Vital Signs/I&O Vital Signs Date Time Temp Pulse Resp B/P B/P Pulse O2 O2 Flow FiO2 Mean Ox Delivery Rate 06/19 1846 97.6 110 20 122/62 98 Room Air 06/19 1616 98.1 103 20 114/58 98 Room Air 06/19 1344 96 Nasal 2.0L Cannula 06/19 1217 111 20 136/60 99 Nasal 3.0L Cannula 06/19 1007 Nasal 3.0L Cannula 06/19 0919 98.5 102 20 122/70 92 Intake & Output 06/19 1600 06/19 0800 06/19 0000 Intake Total 0 Output Total Balance 0 Intake, Oral 0 Patient 104.326 kg Weight Weight Reported by Patient Measurement Method Physical Exam General Appearance Alert, Oriented X3, mild distress Skin erythematous wound area covered with dreasing on the lateral aspect of thigh. mumltile erythematous area underneath skin fold of abdominal area. Skin Temp/Moisture Exam: Cool/Dry Sepsis Skin Exam (color): Normal for Ethnicity HEENT EOMI, Mucous Membr. moist/pink Neck Supple, JVD Lymphatic Cervical nl Cardiovascular Regular Rate Lungs mild bibasilar crackles Abdomen erythema with some discharge prominent on abdominal folds Neurological Normal Speech Extremities No Clubbing, lateral aspect of right thigh has a open wound with mild discharge. Vascular Pulses Symmetrical Last 24 Hrs of Labs/Haris: Laboratory Tests 06/19/17 1215: Urine Color STRAW, Urine Clarity CLEAR, Urine pH 6.0, Ur Specific [place] 1.010, Urine Protein NEG, Urine Ketones NEG, Urine Nitrite NEG, Urine Bilirubin NEG, Urine Urobilinogen 0.2, Ur Leukocyte Esterase TRACE H, Ur Microscopic SEDIMENT EXAMINED, Urine RBC RARE, Urine WBC 1-3 H, Ur Epithelial Cells FEW, Urine Bacteria RARE H, Urine Mucus RARE, Micro UA Comment BUDDING YEAST H, Urine Hemoglobin TRACE-INTACT, Urine Glucose NEG 06/19/17 09: Anion Gap 11, Estimated GFR > 60, BUN/Creatinine Ratio 41.4 H, Glucose 181 H, Lactic Acid 2.7 H, Calcium 9.1, Total Bilirubin 0.3, AST 32, ALT 26, Alkaline Phosphatase 104, Lyh-G-Czxwtgycwoa Pept 784 H, Total Protein 6.4, Albumin 3.9, Globulin 2.5, Albumin/Globulin Ratio 1.6, PT 10.6, INR 1.01, APTT 24 L, CBC w Diff NO MAN DIFF REQ, RBC 3.21 L, MCV 78.2 L, MCH 23.8 L, MCHC 30.5 L, RDW 17.4 H, MPV 8.8, Gran % 65.9, Lymphocytes % 15.6 L, Monocytes % 4.3, Eosinophils % 14.0 H, Basophils % 0.2, Absolute Granulocytes 2.9, Absolute Lymphocytes 0.7 L, Absolute Monocytes 0.2, Absolute Eosinophils 0.6, Absolute Basophils 0 Microbiology 06/19 2030 BLOOD: Blood Culture - RECD 06/19 926 BLOOD: Blood Culture - RECD Assessment/Plan Assessment: Patient is 41 y/o F with tensive medical history including job syndrome with multiple abscess formation, type 2 diabetes, presented to the ED with chief complaint of 1-2 weeks history of shortness of breathing requiring 2-3 L of O2 saturation and bilateral leg swelling. No leukocytosis and patient is afebrile. Physical exam remarkable for JVD, and Chest x-ray negative for infectious pathology however suggestive of pulmonary congestive findings. Impression * Dyspnea with worsening progression. In the setting of lower extremity edema, chest x-ray suggestive of pulmonary congestion, and JVD; Acute decompensated Heart failure (ADHF) is most likely the etiology of patient's symptoms. Infectious resp etiology is very unlikely given the lack of fever/cough, and negative CXR for acute infectious pathology. Her chronic anemia could contribute to her dsypnea, however this does not present with lower extremity swelling,JVD, or pulmonary vascular congestion. * History of chronic diseases: Diabetes, job syndrome, LE swelling. Plan Admit to telemetry for close cardiac monitoring Status post IV Lasix 60 mg, will reassess tomorrow IV dose Continue O2 supplementation to keep sats above 90% Ins and outs Echocardiogram tomorrow morning Accu check 3 times a day and bedtime Awaiting further cardiology recommendation Obtain wound consult tomorrow morning Continue all her home regimen for her chronic conditions As Ranked By This Provider Problem List: 1. Fluid overload 2. Acute decompensated heart failure Core Measures/Misc (02/01) Acute Coronary Syndrome ACS Diagnosis: No Congestive Heart Failure Congestive Heart Failure Diagnosis Yes Cerebrovascular Accident CVA/TIA Diagnosis: No VTE (View Protocol) VTE Risk Factors Age>40 No Mechanical VTE Prophylaxis d/t N/A MechProphylax Ordered No VTE Pharm Prophylaxis d/t NA PharmProphylax ordered Sepsis (View protocol) Sepsis Present: No Fabiola Silva MD 06/19/17 2017: Attending MD Review Statement Attending Statement Attending MD Statement: examined this patient, discuss w/resident/PA/PROJECT ASST, agreed w/resident/PA/PROJECT ASST, reviewed EMR data (avail) Attending Assessment/Plan: 41F PMH T2DM, polysubstance abuse, Bianka's gangrene/necrotizing fasciitis of the perineum, with recurrent MSSA sepsis, recurrent left perirenal abscess, right-sided hemorrhagic pleural effusion s/p pleurx catheter, left pararenal abscess, osteomyelitis of pubic bone presenting with a few weeks of progressive shortness of breath, requiring 2L NC the past 2 weeks, also with bilateral lower extremity edema, consistent with hypervolemia. CXR shows pulmonary vascular congestion. EKG NSR, labs unremarkable, no evidence of infection. Plan - Admit to telemetry - Cardiology consult - Echocardiogram - IV Lasix - I/O daily weights - Continue home medications - DVT PPx
--- NOTE | 2017-06-19 20:20 | Admission Certification ---
Admission Certification Certification Statement - As attending physician, I certify that at the time of - admission, based on clinical presentation, severity of - symptoms, need for further diagnostic testing and - therapeutic interventions, and risk of adverse outcomes - without in-hospital treatment, in my clinical assessment, - this patient requires an acute hospital stay for a minimum - of two nights or longer. I have also considered psychsocial - factors such as support system, advanced age, financial - issues, cognitive issues, and failed out-patient treatments, - past re-admission history, safety of patient, and lack of - compliance as applicable. Specific rationale supporting this admission is: Acute new onset CHF
[2017-06-19 23:23] VITALS: BP 134/72
[2017-06-20 07:26] VITALS: BP 122/68
--- NOTE | 2017-06-20 08:10 | PN- Housestaff ---
Jeremy FARFAN,Zhanna 06/20/17 0810: Subjective Follow-up For: Congestive heart failure Complaints: COMPLAINS OF PAIN RIGHT LEG Tele-Events Since Last Visit: Sinus rhythm heart rate 100 Subjective: She was seen and examined at bedside today. Patient refused to be examined today. She complained of right leg pain and requested Dilaudid. She denies chest pain, chest pressure, nausea, vomiting, headache, palpitations, shortness of breath. Review of Systems Constitutional: Reports: no symptoms. Cardiovascular: Reports: no symptoms. Respiratory: Reports: no symptoms. Gastrointestinal: Reports: no symptoms. Genitourinary: Reports: no symptoms. Musculoskeletal: Reports: no symptoms. Objective Last 24 Hrs of Vital Signs/I&O Vital Signs Date Time Temp Pulse Resp B/P B/P Pulse O2 O2 Flow FiO2 Mean Ox Delivery Rate 06/20 0726 98.1 111 22 122/68 95 Nasal 2.0L Cannula 06/20 0000 94 Nasal 2.0L Cannula 06/19 2323 98.4 106 20 134/72 94 06/19 2200 Nasal 2.0L Cannula 06/19 1846 97.6 110 20 122/62 98 Room Air 06/19 1616 98.1 103 20 114/58 98 Room Air Intake & Output 06/20 1600 06/20 0800 06/20 0000 Intake Total 50 680 Output Total 2300 Balance 50 -1620 Intake, Oral 50 680 Output, Urine 2300 Patient 230 lb Weight Physical Exam General Appearance: Alert, Oriented X3, Cooperative, Mild Distress Other Physical Findings: Examination-patient refused for any blood draw, physical examination today. Current Medications: Current Medications Sig/Shahla Start time Last Medication Dose Route Stop Time Status Admin Acetaminophen 1,000 MG Q8P PRN 06/19 1945 DC IV Acetaminophen 500 MG Q6P PRN 06/19 1945 AC PO Albuterol Sulfate 3 ML ONCE ONE 06/19 1999 DC 06/19 INH 06/19 Cephalexin 500 MG BID 06/19 2200 AC 06/20 PO 1318 Diphenhydramine HCl 50 MG ONCE ONE 06/20 0245 DC 06/20 IV 06/20 0246 0259 Diphenhydramine HCl 25 MG AT BEDTIME PRN 06/19 2345 AC 06/20 PO 0042 Diphenhydramine HCl 0 .STK-MED ONE 06/19 1530 DC PO Diphenhydramine HCl 25 MG ONCE ONE 06/19 1500 DC 06/19 PO 06/19 1501 1531 Diphenhydramine HCl 25 MG ONCE ONE 06/19 1500 DC 06/19 PO 06/19 1501 1532 Enoxaparin Sodium 40 MG DAILY 06/20 1000 AC 06/20 SC 1318 Ergocalciferol 50,000 IU Th 06/25 1000 AC PO Furosemide 40 MG DAILY 06/20 1428 AC IV Furosemide 0 .STK-MED ONE 06/19 1910 DC IV Furosemide 60 MG ONCE ONE 06/19 1715 DC 06/19 IV 06/19 1716 1918 Hydromorphone HCl 2 MG Q6P PRN 06/20 1245 AC 06/20 IV 1310 Hydromorphone HCl 0.6 MG ONCE ONE 06/19 2200 DC 06/19 IV 06/19 2201 2203 Insulin Aspart 0 TIDAC 06/20 0800 AC SC Insulin Detemir 20 UNITS BID 06/19 2200 AC 06/20 SC 0846 Ipratropium [place] 2.5 ML ONCE ONE 06/19 1999 DC 06/19 INH 06/19 2000 2011 Lidocaine 1 PAT DAILY 06/19 1926 AC EXT Methylprednisolone 0 .STK-MED ONE 06/19 2002 DC .ROUTE Methylprednisolone 125 MG ONCE ONE 06/19 1999 DC IV 06/19 2000 Mirtazapine 30 MG AT BEDTIME 06/19 2200 AC 06/20 PO 0039 Oxycodone HCl 15 MG Q4 HRS NEEDED PRN 06/19 1945 AC 06/20 PO 0426 Oxycodone HCl 0 .STK-MED ONE 06/19 1708 DC PO Oxycodone HCl 15 MG ONCE ONE 06/19 1615 DC 06/19 PO 06/19 1616 1711 Phenylephrine HCl 1 DEMETRA Q6P PRN 06/19 2345 AC [place] Polyethylene Glycol 17 GM DAILY 06/20 1437 AC PO Pregabalin 100 MG BID 06/19 2200 AC 06/20 PO 1349 Senna/Docusate Sodium 2 TAB DAILY 06/20 1437 AC PO Senna/Docusate Sodium 1 TAB BID PRN 06/19 2345 AC PO Sodium Polystyrene 60 ML ONCE ONE 06/20 1445 DC Sulfonate PO 06/20 1446 Zinc Oxide 1 DEMETRA BID 06/19 2200 AC 06/20 TOP 1346 Last 24 Hrs of Lab/Haris Results Last 24 Hrs of Labs/Mics: Laboratory Tests 06/20/17 0845: Anion Gap 12, Estimated GFR > 60, BUN/Creatinine Ratio 48.3 H, Iron 15 L, TIBC 423, Ferritin 7.2, CBC w Diff NO MAN DIFF REQ, RBC 2.88 L, MCV 77.6 L, MCH 23.9 L, MCHC 30.8 L, RDW 18.0 H, MPV 8.3, Gran % 80.5 H, Lymphocytes % 12.7 L, Monocytes % 6.6, Eosinophils % 0.1, Basophils % 0.1, Absolute Granulocytes 3.5, Absolute Lymphocytes 0.5 L, Absolute Monocytes 0.3, Absolute Eosinophils 0 , Absolute Basophils 0 Microbiology 06/19 2030 BLOOD: Blood Culture - RES Assessment/Plan Assessment: Patient is 41 y/o F with tensive medical history including job syndrome with multiple abscess formation, type 2 diabetes, presented to the ED with chief complaint of 5 days history of shortness of breathing requiring 2-3 L of O2 saturation and bilateral leg swelling. No leukocytosis and patient is afebrile. Chest x-ray negative for infectious pathology however suggestive of congestion but not overt pulmonary edema. Impression * Acute on chronic congestive heart failure * We will get an echocardiogram and cardiology follow-up. * She was seen by cardiology today who suggested to start her on IV Lasix 40 daily. * We will do thyroid function test, stat ABG, d-dimer to rule out any PE. If d- dimer is elevated we will do an imaging. * Complains of pain right leg-agent is requesting Dilaudid. This was discussed with the attending and we'll started on Dilaudid 2 mg every 6 when necessary. [ Patient has history of polysubstance abuse] * Ins and outs * Acute check 3 times a day and bedtime. * Daily weight. * Continue her home medication. Code- fULL CODE Problem List: 1. CHF (congestive heart failure) Pain Ratin Pain Location: NONE Pain Goal: Remain pain free Pain Plan: TYLENOL Tomorrow's Labs & Rationales: ISA HAMEEDENOL Danny FARFAN,Eduarugrussel 06/20/17 1544: Attending MD Review Statement Attending Statement Attending MD Statement: examined this patient, discuss w/resident/PA/HUMAN FACTORS ADVISOR LEAD, agreed w/resident/PA/HUMAN FACTORS ADVISOR LEAD, reviewed EMR data (avail), discussed with nursing, amended to note Attending Assessment/Plan: Patient seen and examined. Lying in bed complaining of lower extremity pain. Denies shortness of breath at rest but states she is dyspneic with exertion. Denies chest pain. Denies palpitation. No events on telemetry monitoring so far. On examination she has diminished breath sounds bilaterally. She has bilateral lower extremity edema 1-2+ with right greater than left. Recommendations: Continue diuresis with Lasix 40 mg IV daily for pulmonary congestion. Follow-up echocardiogram results. Recommend bilateral lower extremity Doppler to rule out deep vein thrombosis. If her d-dimer is significantly elevated recommend CT angiogram to rule out pulmonary embolism. Begin patient on Dilaudid 2 mg IV every 6 hours as needed pain It is noted in the past that she had a spontaneous hemothorax. Will monitor the size of a effusions with serial x-rays. Transfuse 1 unit of PRBC and keep hemoglobin level greater than 7. Check stool guaiac. Obtain hemolytic workup. Recommend GI consultation for further evaluation of her anemia. She does have history of bleeding gastric ulcer in the past. Begin patient on Protonix 40 mg IV twice daily.
[2017-06-20 10:13] LABS: ABSOLUTE BASOPHIL COUNT 0 /CUMM (0.0-0.2); ABSOLUTE EOSINOPHIL COUNT 0 /CUMM (0.0-0.7); ABSOLUTE GRANULOCYTE CT 3.5 /CUMM (1.4-6.5); ABSOLUTE LYMPH COUNT 0.5 /CUMM (1.2-3.4); ABSOLUTE MONOCYTE COUNT 0.3 /CUMM (0.10-0.60); BASOPHIL % 0.1 % (0.0-2.0); EOSINOPHIL % 0.1 % (0-5); GRANULOCYTE % 80.5 % (42.2-75.2); HEMATOCRIT 22.4 % (37-47); MEAN CORPUSCULAR HGB 23.9 PG (27.0-31.0); MEAN CORPUSCULAR HGB CONC 30.8 G/DL (33.0-37.0); MEAN CORPUSCULAR VOLUME 77.6 FL (81.0-99.0); MEAN PLATELET VOLUME 8.3 FL (7.4-10.4); PLATELET COUNT 161 /CUMM (130-400); RED BLOOD CELL CT 2.88 /CUMM (4.20-5.40); WHITE BLOOD CELL COUNT 4.3 /CUMM (4.8-10.8)
--- NOTE | 2017-06-20 11:07 | Cons- Cardiology ---
General Information and HPI Consulting Request Date of Consult: 06/20/17 Requested By: Fabiola Silva MD History of Present Illness: Ms. Urias is a 41 year old female with history of diabetes, HIES (Job's syndrome) and polysubstance abuse. Over the past several days this patient has noted shortness of breath with orthopnea. This symptom has become progressively worse over the past couple days. She has also noted bilateral leg swelling with tenderness of her legs. Otherwise this patient denies chest discomfort, lightheadedness or palpitations. This patient was very anemic upon admission and has a chest X-ray showing some central vascular congestion. A prior echocardiogram showed normal LV function. 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 She has had multiple abscesses and sepsis. The patient has also had a right-sided hemorrhagic pleural effusion and is s/p a Pleur-X catheter. She has had peritonitis with MSSA sepsis secondary to a gangrenous stomach and is status post a partial gastrectomy. She has experienced gastric perforation and septic shock. Allergies/Medications Allergies: Coded Allergies: codeine (Intermediate, HIVES 06/17/16) nickel (Intermediate, RASH 06/17/16) adhesive tape (Mild, RASH 06/17/16) duloxetine (Intermediate, NAUSEA 06/17/16) hydrocodone (GI UPSET (ESOPHAGITIS) 06/17/16) ibuprofen (GI UPSET (ESOPHAGITIS) 06/17/16) Home Med List: Acetaminophen (Acephen) 650 MG SUPP.RECT 1 SUPP LA Q4H PRN PAIN/TEMP>101 ( Reported) Acetaminophen (Mapap) 325 MG TABLET 2 TAB PO Q4H PRN PAIN/TEMP/>101 (Reported ) Albuterol Sulfate 2.5 MG/3 ML (0.083 %) VIAL.NEB 1 VIAL INH Q6H PRN SOB ( Reported) Albuterol Sulfate (Proair Hfa) 90 MCG HFA.AER.AD 2 PUF INH Q4H PRN RESP. ( Reported) Ascorbic Acid (Vitamin C) 500 MG TABLET 1 TAB PO BID SUPPLEMENT (Reported) Aspirin (Ecotrin*) 81 MG TABLET.DR 1 TAB PO DAILY HEART/BLOOD (Reported) Atorvastatin Calcium 40 MG TABLET 1 TAB PO DAILY CHOLESTEROL (Reported) Bisacodyl (Dulcolax) 10 MG SUPP.RECT 1 SUP RC DAILY PRN NO BM (Reported) Cephalexin (Keflex) 500 MG CAPSULE 1 CAP PO BID Antibiotic suppression Start on May 07 (after Augmentin finishes). This will be continued indefinitely for suppression. Cod Liver Oil/Zinc Oxide (Desitin Diaper Rash 40% Paste) 40 % PASTE..G. 1 DEMETRA TOP BID Sacral ulcer Diphenhydramine HCl (Banophen) 50 MG CAPSULE 1 CAP PO BID SLEEP (Reported) Ergocalciferol (Vitamin D2) (Vitamin D2) 50,000 UNIT CAPSULE 1 CAP PO QW SUPPLEMENT (Reported) Escitalopram Oxalate 10 MG TABLET 1 TAB PO DAILY MENTAL HEALTH (Reported) Furosemide (Lasix) 20 MG TABLET 1 TAB PO DAILY DIURETIC (Reported) Hydromorphone HCl 1 MG/ML LIQUID 3 ML PO Thursday PRIOR TO WOUND VAC CHANGE (Reported) Insulin Aspart (Novolog) 100 UNIT/ML VIAL 0 UNITS SC AT BEDTIME Diabetes Blood Glucose Insulin less than 250 0 units 251-300 2 units 301-350 3 units 351-400 4 units more than 400 5 units Insulin Aspart (Novolog) 100 UNIT/ML VIAL 0 UNITS SC TIDAC Diabetes Blood Sugar Insulin less than 80 no insulin 80-150 3 units 151-200 4 units 201-250 5 units 251-300 6 units 300-350 7 units 301-350 8 units 351-400 9 units Insulin Detemir (Levemir) 100 UNIT/ML VIAL 20 UNITS SC BID DM (Reported) Lactobacillus Acidophilus (Acidophilus) 1 EACH CAPSULE 1 CAP PO BID PROBIOTIC (Reported) Lidocaine (Lidoderm) 5 % ADH..PATCH 1 PAT EXT DAILY Pain Magnesium Chloride (Slow-Mag) 71.5 MG TABLET.DR 1 TAB PO DAILY HYPOMAGNESEMIA Magnesium Hydroxide (Milk Of Magnesia) 400 MG/5 ML ORAL.SUSP 30 ML PO DAILY PRN NO BM IN 3 DAYS (Reported) Mirtazapine (Remeron) 30 MG TABLET 1 TAB PO QHS MENTAL HEALTH (Reported) Multivitamin,Ther and Minerals (Multivitamins With Minerals Hp) 1 EACH CAPSULE 1 CAP PO DAILY SUPPLEMENT (Reported) Na Phos,M-B/Na Phos,Di-Ba (Enema) 19 GRAM-7 GRAM/118 ML ENEMA 1 E RC DAILY PRN NO BM (Reported) Omeprazole 20 MG CAPSULE.DR 40 MG PO BID Upper GI bleed Oxycodone HCl 15 MG TABLET 1 TAB PO Q4H PRN PAIN (Reported) Phenyleph/Pramoxin/Glycr/W.pet (Hemorrhoidal Cream) 0.25 %-1 % CREAM..G. 1 DEMETRA LA Q6P PRN Hemorrhoids Pregabalin (Lyrica) 100 MG CAPSULE 1 CAP PO BID NERVE PAIN (Reported) Prochlorperazine (Compazine) 25 MG SUPP.RECT 1 SUP LA Q6H PRN N/V (Reported) Prochlorperazine Maleate 10 MG TABLET 1 TAB PO Q6 PRN COMPLAINTS OF NAUSEA ( Reported) Protein Supplement (Prosource) 275 GM POWDER 30 ML PO TID SUPPLEMENT ( Reported) Sennosides/Docusate Sodium (Docusate Sodium-Senna Tablet) 8.6 MG-50 MG TABLET 1 TAB PO BID GI (Reported) Zolpidem Tartrate (Ambien) 10 MG TABLET 1 TAB PO QHS SLEEP (Reported) Review of Systems Review of Systems: diffuse pain Past History Travel History Traveled to [place] past 21 day No Medical History Neurological: peripheral neuropathy EENT: hearing loss Cardiovascular: NONE Respiratory: asthma, S/P CHEST TUBE 05/2016 Gastrointestinal: G-TUBE (REMOVED) Hepatic: NONE Renal: left pararenal abscess Musculoskeletal: OSTEOMYELITIS OF PUBIS PUBIS FX Psychiatric: anxiety, chronic pain disorder, depression, opioid dependence, POLYSUBSTANCE ABUSE NARCOTIC DEPENDENCE SUICIDAL IDEATION Endocrine: INSULIN DEPENDENT DIABETES - noncompliant Blood Disorders: anemia Cancer(s): NONE REQUISITION APPROVER/Reproductive: ECTOPIC necrotizing fasciitis of the perineum Other Medical Hx: Left axillary abscess secondary to MSSA status post I&D November 2014 Right deltoid abscess March 2016 secondary to MSSA 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 FH: cirrhosis Psychosocial History Where Do You Live? Extended Care Facility Who Do You Live With? with friend Services at Home: None Primary Language: [place] Smoking Status: Former Smoker Living Will? no Power of Distribution Center Associate/HCP? no Functional Ability ADLs Independent: dressing, eating, toileting, bathing. Ambulation: independent IADLs Independent: shopping, housework, finances, food prep, telephone, transportation , medication admin. Exam & Diagnostic Data Vital Signs and I&O Vital Signs Date Time Temp Pulse Resp B/P B/P Pulse O2 O2 Flow FiO2 Mean Ox Delivery Rate 06/20 0726 98.1 111 22 122/68 95 Nasal 2.0L Cannula 06/20 0000 94 Nasal 2.0L Cannula 06/19 2323 98.4 106 20 134/72 94 06/19 2200 Nasal 2.0L Cannula 06/19 1846 97.6 110 20 122/62 98 Room Air 06/19 1616 98.1 103 20 114/58 98 Room Air 06/19 1344 96 Nasal 2.0L Cannula 06/19 1217 111 20 136/60 99 Nasal 3.0L Cannula Intake & Output 06/20 1600 06/20 0800 06/20 0000 06/19 1600 06/19 0800 06/19 0000 Intake Total 50 680 0 Output Total 2300 Balance 50 -1620 0 Intake, Oral 50 680 0 Output, Urine 2300 Patient 230 lb 230 lb Weight Weight Reported by Patient Measurement Method Physical Exam: General: WD/overweight female in NAD; alert and oriented x 3 HEENT: NC/AT, PERRL, EOMI Neck: postive JVD heart: RRR w/o murmur Lungs: clear bilaterally Abdomen: soft, obese, NT, +ve bowel sounds Extremities: 2+ leg edema bilaterally Assessment/Plan Assessment/Plan * This patient has some vascular congestion on her X-ray along with JVD and leg swelling consistent with decompensated right and left heart failure as a cause of her shortness of breath. She is also very anemic which may directly result in shortness of breath or, if longstanding, may have put a strain on her heart causing decompensated heart failure. Finally, Lyrica is a medication that can cause some fluid retension. * Obtain TFT's including a TSH and free T4. * Check a D-dimer and ABG to assess for a possible PE as a cause of increased RV pressures. If abnormal she will need a CT angiogram. * Diurese with Lasix 40mg IV daily. * Obtain an echocardiogram to assess for a pericardial effusion since this patient has low voltage on her ECG and to assess her overall EF. Consult Acknowledgment - Thank you for your consult request.
[2017-06-20 16:00] VITALS: BP 128/78
[2017-06-20 23:13] VITALS: BP 96/52
--- NOTE | 2017-06-21 03:51 | CT SCAN REPORT ---
EXAMINATION: CT ANGIOGRAM OF THE CHEST WITH AND WITHOUT CONTRAST (CT PULMONARY ANGIOGRAM FOR PE) CLINICAL INFORMATION: SOB, LE swelling, elevated D-dimer COMPARISON: Chest x-ray June 19, 2017 TECHNIQUE: Prior to contrast administration, noncontrast localization images were obtained. Subsequently, multidetector volumetric imaging was performed from the thoracic inlet to below the diaphragms following the administration of 95 mL Optiray 350 intravenous contrast. No contrast reaction reported. Sagittal, coronal, and MIP oblique sagittal reformatted images were obtained on the CT workstation, uploaded to PACS, and reviewed. Total exam dose-length product 524.67 mGy-cm. FINDINGS: QUALITY OF STUDY/CONTRAST BOLUS: Satisfactory PULMONARY ARTERIES: No central or segmental pulmonary emboli. THORACIC AORTA: No aneurysm or dissection. LUNG: Asymmetric elevation of right diaphragm compared to left. Focal consolidation with air bronchograms in the right lower lobe posteriorly. PLEURA: Small layering right pleural effusion and left pleural effusion. MEDIASTINUM: Normal heart size. No pericardial effusion. No hilar or mediastinal lymphadenopathy. No evidence of septal bowing or right heart strain. CHEST WALL/AXILLA: No axillary or internal mammary lymphadenopathy. OSSEOUS STRUCTURES: Degenerative spondylosis of dorsal spine endplate spurring of the vertebrae. UPPER ABDOMEN: Unremarkable. No reflux of contrast into the hepatic veins to suggest elevated right heart pressures. IMPRESSION: 1. No evidence of pulmonary embolism. 2. Right lower lobe infiltrate. 3. Small bilateral pleural effusions. VTE: negative
[2017-06-21 06:34] VITALS: BP 122/62
[2017-06-21 08:56] LABS: ABSOLUTE BASOPHIL COUNT 0 /CUMM (0.0-0.2); ABSOLUTE EOSINOPHIL COUNT 0.4 /CUMM (0.0-0.7); ABSOLUTE GRANULOCYTE CT 1.9 /CUMM (1.4-6.5); ABSOLUTE MONOCYTE COUNT 0.4 /CUMM (0.10-0.60); BASOPHIL % 0.4 % (0.0-2.0); EOSINOPHIL % 11.2 % (0-5); GRANULOCYTE % 52.2 % (42.2-75.2); MEAN CORPUSCULAR HGB 24.3 PG (27.0-31.0); MEAN CORPUSCULAR HGB CONC 30.4 G/DL (33.0-37.0); MEAN CORPUSCULAR VOLUME 79.8 FL (81.0-99.0); MEAN PLATELET VOLUME 8.4 FL (7.4-10.4); PLATELET COUNT 170 /CUMM (130-400); RBC DISTRIBUTION WIDTH 17.9 % (11.5-14.5); RED BLOOD CELL CT 3.13 /CUMM (4.20-5.40); WHITE BLOOD CELL COUNT 3.7 /CUMM (4.8-10.8)
--- NOTE | 2017-06-21 10:00 | Cons- Gastroenterology ---
General Information and HPI Consulting Request Date of Consult: 06/21/17 Requested By: Fabiola Silva MD Reason for Consult: Anemia, history of Gi bleeding/PUD, guaiac positive stool Source of Information: patient, old records Exam Limitations: poor historian History of Present Illness: Ms. 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 She is complaining of bilateral lower abdominal swelling and pain in both her legs, but she is without any specific new GI complaints. She is without abdominal pain with eating, heartburn, vomiting/hematemesis or dysphagia. She has also been without any brbpr or melena. Since admission she has been getting IV diuresis for volume overload. She has been noted to be anemic for which she was transfused with one unit of PRBCs with appropriate correction of her hgb. She has remained hemodynamically stable since admission and without evidence of overt GI bleeding. Allergies/Medications Allergies: Coded Allergies: codeine (Intermediate, HIVES 06/17/16) nickel (Intermediate, RASH 06/17/16) adhesive tape (Mild, RASH 06/17/16) duloxetine (Intermediate, NAUSEA 06/17/16) hydrocodone (GI UPSET (ESOPHAGITIS) 06/17/16) ibuprofen (GI UPSET (ESOPHAGITIS) 06/17/16) Home Med List: Acetaminophen (Acephen) 650 MG SUPP.RECT 1 SUPP MA Q4H PRN PAIN/TEMP>101 ( Reported) Acetaminophen (Mapap) 325 MG TABLET 2 TAB PO Q4H PRN PAIN/TEMP/>101 (Reported ) Albuterol Sulfate 2.5 MG/3 ML (0.083 %) VIAL.NEB 1 VIAL INH Q6H PRN SOB ( Reported) Albuterol Sulfate (Proair Hfa) 90 MCG HFA.AER.AD 2 PUF INH Q4H PRN RESP. ( Reported) Ascorbic Acid (Vitamin C) 500 MG TABLET 1 TAB PO BID SUPPLEMENT (Reported) Aspirin (Ecotrin*) 81 MG TABLET.DR 1 TAB PO DAILY HEART/BLOOD (Reported) Atorvastatin Calcium 40 MG TABLET 1 TAB PO DAILY CHOLESTEROL (Reported) Bisacodyl (Dulcolax) 10 MG SUPP.RECT 1 SUP RC DAILY PRN NO BM (Reported) Cephalexin (Keflex) 500 MG CAPSULE 1 CAP PO BID Antibiotic suppression Start on May 07 (after Augmentin finishes). This will be continued indefinitely for suppression. Cod Liver Oil/Zinc Oxide (Desitin Diaper Rash 40% Paste) 40 % PASTE..G. 1 DEMETRA TOP BID Sacral ulcer Diphenhydramine HCl (Banophen) 50 MG CAPSULE 1 CAP PO BID SLEEP (Reported) Diphenhydramine HCl/Zinc Acet (Itch Relief Cream) 2 %-0.1 % CREAM..G. 1 DEMETRA TOP Q4P PRN Ithciness Ergocalciferol (Vitamin D2) (Vitamin D2) 50,000 UNIT CAPSULE 1 CAP PO QW SUPPLEMENT (Reported) Escitalopram Oxalate 10 MG TABLET 1 TAB PO DAILY MENTAL HEALTH (Reported) Ferrous Sulfate 325 MG (65 MG IRON) TABLET.DR 325 MG PO TID Iron supplemet Furosemide (Lasix) 20 MG TABLET 1 TAB PO DAILY DIURETIC (Reported) Furosemide (Lasix) 40 MG TABLET 40 MG PO 7:30 AM, & 4:30 PM Leg swelling Hydromorphone HCl 1 MG/ML LIQUID 3 ML PO Thursday PRIOR TO WOUND VAC CHANGE (Reported) Insulin Aspart (Novolog) 100 UNIT/ML VIAL 0 UNITS SC AT BEDTIME Diabetes Blood Glucose Insulin less than 250 0 units 251-300 2 units 301-350 3 units 351-400 4 units more than 400 5 units Insulin Aspart (Novolog) 100 UNIT/ML VIAL 0 UNITS SC TIDAC Diabetes Blood Sugar Insulin less than 80 no insulin 80-150 3 units 151-200 4 units 201-250 5 units 251-300 6 units 300-350 7 units 301-350 8 units 351-400 9 units Insulin Detemir (Levemir) 100 UNIT/ML VIAL 20 UNITS SC BID DM (Reported) Lactobacillus Acidophilus (Acidophilus) 1 EACH CAPSULE 1 CAP PO BID PROBIOTIC (Reported) Lidocaine (Lidoderm) 5 % ADH..PATCH 1 PAT EXT DAILY Pain Magnesium Chloride (Slow-Mag) 71.5 MG TABLET.DR 1 TAB PO DAILY HYPOMAGNESEMIA Magnesium Hydroxide (Milk Of Magnesia) 400 MG/5 ML ORAL.SUSP 30 ML PO DAILY PRN NO BM IN 3 DAYS (Reported) Mirtazapine (Remeron) 30 MG TABLET 1 TAB PO QHS MENTAL HEALTH (Reported) Multivitamin,Ther and Minerals (Multivitamins With Minerals Hp) 1 EACH CAPSULE 1 CAP PO DAILY SUPPLEMENT (Reported) Na Phos,M-B/Na Phos,Di-Ba (Enema) 19 GRAM-7 GRAM/118 ML ENEMA 1 E RC DAILY PRN NO BM (Reported) Omeprazole 20 MG CAPSULE.DR 40 MG PO BID Upper GI bleed Oxycodone HCl 15 MG TABLET 1 TAB PO Q4H PRN PAIN (Reported) Phenyleph/Pramoxin/Glycr/W.pet (Hemorrhoidal Cream) 0.25 %-1 % CREAM..G. 1 DEMETRA MA Q6P PRN Hemorrhoids Pregabalin (Lyrica) 100 MG CAPSULE 1 CAP PO BID NERVE PAIN (Reported) Prochlorperazine (Compazine) 25 MG SUPP.RECT 1 SUP MA Q6H PRN N/V (Reported) Prochlorperazine Maleate 10 MG TABLET 1 TAB PO Q6 PRN COMPLAINTS OF NAUSEA ( Reported) Protein Supplement (Prosource) 275 GM POWDER 30 ML PO TID SUPPLEMENT ( Reported) Sennosides/Docusate Sodium (Docusate Sodium-Senna Tablet) 8.6 MG-50 MG TABLET 1 TAB PO BID GI (Reported) Zolpidem Tartrate (Ambien) 10 MG TABLET 1 TAB PO QHS SLEEP (Reported) Current Medications: Current Medications Sig/Shahla Start time Last Medication Dose Route Stop Time Status Admin Acetaminophen 500 MG Q6P PRN 06/19 1945 AC PO Albuterol Sulfate 3 ML Q4H PRN 06/23 1430 AC 06/23 INH 1419 Cephalexin 500 MG BID 06/24 1000 AC 06/24 PO 0934 Cephalexin 500 MG BID 06/19 2200 DC 06/23 PO 0825 Diphenhydramine HCl 25 MG ONCE ONE 06/24 0915 DC 06/24 IV 06/24 0916 0933 Diphenhydramine HCl 50 MG ONCE ONE 06/24 0830 CAN PO 06/24 0831 Diphenhydramine HCl 25 MG ONCE ONE 06/24 0230 DC 06/24 IV 06/24 0231 0345 Diphenhydramine HCl 50 MG ONCE ONE 06/23 2130 DC 06/23 PO 06/23 2131 2212 Diphenhydramine HCl 25 MG ONCE ONE 06/23 1430 DC 06/23 IV 06/23 1431 1438 Diphenhydramine HCl 1 DEMETRA Q4P PRN 06/22 1445 AC 06/22 TOP 2005 Diphenhydramine HCl 25 MG AT BEDTIME PRN 06/19 2345 AC 06/20 PO 2039 Ergocalciferol 50,000 IU Th 06/25 1000 AC PO Ferrous Sulfate 325 MG TID 06/22 1154 AC 06/24 PO 0934 Furosemide 40 MG 7:30 AM, & 4:30 PM 06/23 1630 AC 06/24 PO 0934 Furosemide 40 MG 7:30 AM, & 4:30 PM 06/21 1705 DC 06/23 IV 0824 Hydromorphone HCl 2 MG Q6P PRN 06/20 1245 DC 06/24 IV 0625 Insulin Aspart 0 TIDAC 06/20 0800 AC 06/24 SC 0933 Insulin Detemir 20 UNITS BID 06/19 2200 AC 06/24 SC 0934 Lidocaine 1 PAT DAILY 06/19 1926 AC 06/21 EXT 0858 Mirtazapine 30 MG AT BEDTIME 06/19 2200 AC 06/23 PO 2212 Oxycodone HCl 15 MG Q4 HRS NEEDED PRN 06/19 1945 AC 06/20 PO 0426 Pantoprazole Sodium 40 MG BID 06/20 1554 AC 06/24 IV 0933 Phenylephrine HCl 1 DEMETRA Q6P PRN 06/19 2345 AC MA Polyethylene Glycol 17 GM DAILY 06/20 1437 AC PO Pregabalin 100 MG BID 06/19 2200 AC 06/24 PO 0934 Senna/Docusate Sodium 2 TAB DAILY 06/20 1437 AC PO Senna/Docusate Sodium 1 TAB BID PRN 06/19 2345 AC PO Zinc Oxide 1 DEMETRA BID 06/19 2200 AC 06/24 TOP 0934 Past History Travel History Traveled to [place] past 21 day No Medical History Neurological: peripheral neuropathy EENT: hearing loss Cardiovascular: NONE Respiratory: asthma, S/P CHEST TUBE 05/2016 Gastrointestinal: G-TUBE (REMOVED) Hepatic: NONE Renal: left pararenal abscess Musculoskeletal: OSTEOMYELITIS OF PUBIS PUBIS FX Psychiatric: anxiety, chronic pain disorder, depression, opioid dependence, POLYSUBSTANCE ABUSE NARCOTIC DEPENDENCE SUICIDAL IDEATION Endocrine: INSULIN DEPENDENT DIABETES - noncompliant Blood Disorders: anemia Cancer(s): NONE CHAINSTITCH BINDER/Reproductive: ECTOPIC necrotizing fasciitis of the perineum Other Medical Hx: Left axillary abscess secondary to MSSA status post I&D November 2014 Right deltoid abscess March 2016 secondary to MSSA 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 FH: cirrhosis Psychosocial History Where Do You Live? Extended Care Facility Who Do You Live With? with friend Services at Home: None Primary Language: Vietnamese Smoking Status: Former Smoker Living Will? no Power of Measurement And Verification Engineer/HCP? no Functional Ability ADLs Independent: dressing, eating, toileting, bathing. Ambulation: independent IADLs Independent: shopping, housework, finances, food prep, telephone, transportation , medication admin. Review of Systems Review of Systems Constitutional: Reports: malaise, weakness. Denies: fever, unexplained weight loss. EENTM: Denies: no symptoms. Cardiovascular: Reports: edema, orthopena, peripheral edema. Respiratory: Reports: short of breath. Denies: cough. GI: Denies: no symptoms. Genitourinary: Denies: no symptoms. Musculoskeletal: Reports: joint pain, muscle pain. Skin: Denies: no symptoms. Neurological/Psychological: Reports: emotional problems, weakness. Hematologic/Endocrine: Denies: no symptoms. Immunologic/Allergic: Denies: no symptoms. All Other Systems: Reviewed and Negative Exam & Diagnostic Data Vital Signs and I&O Vital Signs Date Time Temp Pulse Resp B/P B/P Pulse O2 O2 Flow FiO2 Mean Ox Delivery Rate 06/21 0800 98 Nasal 2.0L Cannula 06/21 0634 97.4 89 20 122/62 99 Nasal 2.0L Cannula 06/20 2313 98.5 106 18 96/52 99 Nasal Cannula 06/20 2137 Room Air 06/20 1600 98.8 98 18 128/78 98 Nasal 2.0L Cannula 06/20 1509 Nasal 2.0L Cannula 06/20 1200 98 Nasal 2.0L Cannula Intake & Output 06/21 1600 06/21 0400 06/20 1600 06/20 04006/19 1600 06/19 0400 Intake Total 650 200 420 680 0 Output Total 500 2300 Balance 650 0 Intake, IV 20 Intake, Oral 650 200 400 680 0 Output, Urine 500 2300 Patient 230 lb 230 lb Weight Weight Reported by Patient Measurement Method Physical Exam General Appearance: well developed/nourished, no apparent distress, alert, awake , anxious Head: atraumatic, normal appearance Eyes: Bilateral: normal appearance. Ears, Nose, Throat: normal pharynx, normal ENT inspection Neck: normal inspection, supple Respiratory: chest non-tender, no respiratory distress, decreased breath sounds Cardiovascular: regular rate/rhythm Gastrointestinal: normal bowel sounds, soft, non-tender Rectal: deferred Extremities: pedal edema Neurologic/Psych: no motor/sensory deficits, awake, alert, oriented x 3 Skin: intact, normal color, warm/dry Results Pertinent Lab Results: Laboratory Tests 06/21 06/20 0825 1999 Chemistry Sodium (137 - 145 mmol/L) 142 Potassium (3.5 - 5.1 mmol/L) 4.9 Chloride (98 - 107 mmol/L) 99 Carbon Dioxide (22 - 30 mmol/L) 32 H Anion Gap (5 - 16) 11 BUN (7 - 17 mg/dL) 34 H Creatinine (0.5 - 1.0 mg/dL) 0.8 Estimated GFR (>60 ml/min) > 60 BUN/Creatinine Ratio (7 - 25 %) 42.5 H Coagulation D-Dimer High Sensitivty (0 - 243 ng/ml) 7174 H Hematology CBC w Diff NO MAN DIFF REQ WBC (4.8 - 10.8 /CUMM) 3.7 L RBC (4.20 - 5.40 /CUMM) 3.13 L Hgb (12.0 - 16.0 G/DL) 7.6 L Hct (37 - 47 %) 25.0 L MCV (81.0 - 99.0 FL) 79.8 L MCH (27.0 - 31.0 PG) 24.3 L MCHC (33.0 - 37.0 G/DL) 30.4 L RDW (11.5 - 14.5 %) 17.9 H Plt Count (130 - 400 /CUMM) 170 MPV (7.4 - 10.4 FL) 8.4 Gran % (42.2 - 75.2 %) 52.2 Lymphocytes % (20.5 - 51.1 %) 26.5 Monocytes % (1.7 - 9.3 %) 9.7 H Eosinophils % (0 - 5 %) 11.2 H Basophils % (0.0 - 2.0 %) 0.4 Absolute Granulocytes (1.4 - 6.5 /CUMM) 1.9 Absolute Lymphocytes (1.2 - 3.4 /CUMM) 1.0 L Absolute Monocytes (0.10 - 0.60 /CUMM) 0.4 Absolute Eosinophils (0.0 - 0.7 /CUMM) 0.4 Absolute Basophils (0.0 - 0.2 /CUMM) 0 06/20 06/19 0845 1232 Chemistry Sodium (137 - 145 mmol/L) 139 Potassium (3.5 - 5.1 mmol/L) 5.4 H Chloride (98 - 107 mmol/L) 98 Carbon Dioxide (22 - 30 mmol/L) 29 Anion Gap (5 - 16) 12 BUN (7 - 17 mg/dL) 29 H Creatinine (0.5 - 1.0 mg/dL) 0.6 Estimated GFR (>60 ml/min) > 60 BUN/Creatinine Ratio (7 - 25 %) 48.3 H Lactic Acid Cancelled Iron (37 - 170 ug/dL) 15 L TIBC (265 - 497 ug/dL) 423 Ferritin (6.24 - 137 ng/mL) 7.2 TSH (0.270 - 4.200 uIU/mL) 0.799 Free T4 (0.64 - 1.79 ng/dL) 0.82 Hematology CBC w Diff NO MAN DIFF REQ WBC (4.8 - 10.8 /CUMM) 4.3 L RBC (4.20 - 5.40 /CUMM) 2.88 L Hgb (12.0 - 16.0 G/DL) 6.9 *L Hct (37 - 47 %) 22.4 L MCV (81.0 - 99.0 FL) 77.6 L MCH (27.0 - 31.0 PG) 23.9 L MCHC (33.0 - 37.0 G/DL) 30.8 L RDW (11.5 - 14.5 %) 18.0 H Plt Count (130 - 400 /CUMM) 161 MPV (7.4 - 10.4 FL) 8.3 Gran % (42.2 - 75.2 %) 80.5 H Lymphocytes % (20.5 - 51.1 %) 12.7 L Monocytes % (1.7 - 9.3 %) 6.6 Eosinophils % (0 - 5 %) 0.1 Basophils % (0.0 - 2.0 %) 0.1 Absolute Granulocytes (1.4 - 6.5 /CUMM) 3.5 Absolute Lymphocytes (1.2 - 3.4 /CUMM) 0.5 L Absolute Monocytes (0.10 - 0.60 /CUMM) 0.3 Absolute Eosinophils (0.0 - 0.7 /CUMM) 0 Absolute Basophils (0.0 - 0.2 /CUMM) 0 06/19 06/19 1215 0927 Chemistry Sodium (137 - 145 mmol/L) 141 Potassium (3.5 - 5.1 mmol/L) 5.1 Chloride (98 - 107 mmol/L) 100 Carbon Dioxide (22 - 30 mmol/L) 30 Anion Gap (5 - 16) 11 BUN (7 - 17 mg/dL) 29 H Creatinine (0.5 - 1.0 mg/dL) 0.7 Estimated GFR (>60 ml/min) > 60 BUN/Creatinine Ratio (7 - 25 %) 41.4 H Glucose (65 - 99 mg/dL) 181 H Lactic Acid (0.7 - 2.1 mmol/L) 2.7 H Calcium (8.4 - 10.2 mg/dL) 9.1 Total Bilirubin (0.2 - 1.3 mg/dL) 0.3 AST (14 - 36 U/L) 32 ALT (9 - 52 U/L) 26 Alkaline Phosphatase (<127 U/L) 104 Pla-[id number] Pept (<125 pg/mL) 784 H Total Protein (6.3 - 8.2 g/dL) 6.4 Albumin (3.5 - 5.0 g/dL) 3.9 Globulin (1.9 - 4.2 gm/dL) 2.5 Albumin/Globulin Ratio (1.1 - 2.2 %) 1.6 Coagulation PT (9.4 - 12.5 SEC) 10.6 INR (0.90 - 1.19) 1.01 APTT (25 - 37 SEC) 24 L Hematology CBC w Diff NO MAN DIFF REQ WBC (4.8 - 10.8 /CUMM) 4.4 L RBC (4.20 - 5.40 /CUMM) 3.21 L Hgb (12.0 - 16.0 G/DL) 7.6 L Hct (37 - 47 %) 25.1 L MCV (81.0 - 99.0 FL) 78.2 L MCH (27.0 - 31.0 PG) 23.8 L MCHC (33.0 - 37.0 G/DL) 30.5 L RDW (11.5 - 14.5 %) 17.4 H Plt Count (130 - 400 /CUMM) 213 MPV (7.4 - 10.4 FL) 8.8 Gran % (42.2 - 75.2 %) 65.9 Lymphocytes % (20.5 - 51.1 %) 15.6 L Monocytes % (1.7 - 9.3 %) 4.3 Eosinophils % (0 - 5 %) 14.0 H Basophils % (0.0 - 2.0 %) 0.2 Absolute Granulocytes (1.4 - 6.5 /CUMM) 2.9 Absolute Lymphocytes (1.2 - 3.4 /CUMM) 0.7 L Absolute Monocytes (0.10 - 0.60 /CUMM) 0.2 Absolute Eosinophils (0.0 - 0.7 /CUMM) 0.6 Absolute Basophils (0.0 - 0.2 /CUMM) 0 Urines Urine Color (YEL,AMB,STR) STRAW Urine Clarity (CLEAR) CLEAR Urine pH (5.0 - 8.0) 6.0 Ur Specific [place] (1.001 - 1.035) 1.010 Urine Protein (NEG,<30 MG/DL) NEG Urine Ketones (NEG) NEG Urine Nitrite (NEG) NEG Urine Bilirubin (NEG) NEG Urine Urobilinogen (0.1 - 1.0 EU/dl) 0.2 Ur Leukocyte Esterase (NEG) TRACE H Ur Microscopic SEDIMENT EXAMINED Urine RBC (0 - 5 /HPF) RARE Urine WBC (0 - 2 /HPF) 1-3 H Ur Epithelial Cells (NONE,FEW) FEW Urine Bacteria (NEG/NONE) RARE H Urine Mucus (FEW,NONE) RARE Micro UA Comment BUDDING YEAST H Urine Hemoglobin (NEG) TRACE-INTACT Urine Glucose (N MG/DL) NEG Imaging/Other Studies: Endoscopy Procedure Medical History: unchanged (see [facility] consult note) Mental Status: alert/oriented Heart/Lung Eval Prior to Sedation: within normal limits Candidate for Sedation? Yes Procedure Date: 04/25/17 Procedure Type: EGD with bicap cautery and epi lunch counter manager: Cassie Oconnor MD ASA Classification: IV Indications: Melena, anemia, hematemesis. Instrument: diagnostic gastroscope Meds Received: MAC Patient's Tolerance: good Complications: none Extent Reached: second part of duodenum Procedure: After getting written informed consent the patient was placed in the left lateral decubitus position with pulse oximetry, cardiac monitoring, and supplemental oxygen given. A bite block was inserted and IV sedation was given until the desired effect was achieved. A high definition upper Olympus endoscope was then inserted into the mouth and advanced to the second portion of the duodenum with little difficulty. Retroflexed views and photodocumentation was obtained. Findings: Esophagus: The esophageal mucosa was grossly normal appearance and there was a normal-appearing Z line at 36 cm from the incisors. The hiatal narrowing was at approximately 38 cm from the incisors accounting for a 2 cm sliding hiatal hernia. Stomach: Within the body of the stomach were 2 ulcers approximately 1 cm in size one of the ulcers was clean-based the other ulcer had an eschar overlying a small visible vessel. The ulcer was treated with epinephrine injection using a scleral needle and then the vessel was obliterated using BiCAP cautery with good hemostasis being achieved at the end of treatment. Retroflexed views revealed a small hiatal hernia and there was also evidence of prior surgery and what appeared to be a fistula opening within the fundus. Duodenum: The duodenal bulb, sweep, and folds were grossly normal in appearance. There was bile appreciated throughout to the second portion of the duodenum. Impression: 1. 2 small gastric ulcers one with a small vessel status post treatment with epinephrine injection and BiCAP cautery. 2. 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 3. No active bleeding appreciated. Assessment/Plan Assessment/Recommendations: Assessment: Ms. Urias is a 41-year-old female with multiple medical problems currently admitted for volume overload/CHF which she is receiving IV diuresis. She does have a history of peptic ulcer disease and underwent an upper endoscopy last month for active upper GI bleeding which did reveal 2 ulcers and a visible vessel that was treated with BiCAP cautery. While she is anemic she is not far from her baseline hemoglobin so as she is without overt GI bleeding I do not feel that a repeat upper endoscopy is necessary at this time. It may ultimately be reasonable to pursue a repeat EGD to assess for ulcer healing and rule out an underlying malignancy, but this can be pursued as an outpatient and my overall suspicion for malignancy is very low. Recommendations: 1. Treatment of volume overload as per primary care team. 2. Change IV protonix to a po ppi daily 3. Follow daily cbc and transfuse as needed to keep hgb > 7 or as per cardiology recommendations. 4. Notify GI for signs of overt GI bleeding 5. Consideration may be given for a repeat EGD to confirm ulcer healing once her volume status has improved or this can be pursued as an outpatient if at all considering all of her other comorbidities. Please re-contact GI for any new acute GI issues that arise while she is admitted. Problem List: 1. Anemia 2. Guaiac positive stools Consult Acknowledgment - Thank you for your consult request.
--- NOTE | 2017-06-21 10:03 | PN- Housestaff ---
Carmel FARFAN,Ameya 06/21/17 1002: Subjective Follow-up For: Congestive heart failure Subjective: Patient was seen and examined today. Patient states she has shoulder/neck pain. States she twisted her neck when she was moving in bed and now has difficulty moving it from side to side. Patient states she has 5/10 pain in her lower extremities. Continues to have lower extremity swelling. Patient denies chest pain or SOB. Patient is not keeping her legs elevated higher than her chest because she is not able to lie flat in bed. Patient sits up sleeping. States she starts feeling SOB and anxious if she does so. Patient states her legs and stomach have been weeping. Denies fever, chills, n/v/c/d, hematuria/dysuria. Patient is refusing bilateral lower extremity doppler. Review of Systems Constitutional: Reports: no symptoms. Cardiovascular: Reports: peripheral edema. Respiratory: Reports: orthopnea. Gastrointestinal: Reports: no symptoms. Genitourinary: Reports: no symptoms. Musculoskeletal: Reports: see HPI. Objective Last 24 Hrs of Vital Signs/I&O Vital Signs Date Time Temp Pulse Resp B/P B/P Pulse O2 O2 Flow FiO2 Mean Ox Delivery Rate 06/21 0800 98 Nasal 2.0L Cannula 06/21 0634 97.4 89 20 122/62 99 Nasal 2.0L Cannula 06/20 2313 98.5 106 18 96/52 99 Nasal Cannula 06/20 2137 Room Air 06/20 1600 98.8 98 18 128/78 98 Nasal 2.0L Cannula 06/20 1509 Nasal 2.0L Cannula 06/20 1200 98 Nasal 2.0L Cannula Intake & Output 06/21 1600 06/21 0800 06/21 0000 Intake Total 650 200 Output Total Balance 650 200 Intake, Oral 650 200 Physical Exam General Appearance: Alert, Oriented X3, Cooperative, No Acute Distress Skin Temp/Moisture Exam: Warm/Dry HEENT: Atraumatic, Mucous Membr. moist/pink Cardiovascular: Regular Rate, Normal S1, Normal S2 Lungs: Clear to Auscultation, Normal Air Movement Abdomen: Normal Bowel Sounds, Soft, No Tenderness Extremities: No Clubbing, No Cyanosis, Normal Pulses, bilateral lower extremity edema up to thighs Current Medications: Current Medications Sig/Shahla Start time Last Medication Dose Route Stop Time Status Admin Acetaminophen 1,000 MG Q8P PRN 06/19 1945 DC IV Acetaminophen 500 MG Q6P PRN 06/19 1945 AC PO Cephalexin 500 MG BID 06/19 2200 AC 06/21 PO 0856 Diphenhydramine HCl 50 MG .STK-MED ONE 06/21 0007 DC IM 06/21 0008 Diphenhydramine HCl 25 MG ONCE ONE 06/20 2345 CAN PO 06/20 2346 Diphenhydramine HCl 50 MG ONCE ONE 06/20 2345 DC 06/21 IV 06/20 2346 0010 Diphenhydramine HCl 25 MG AT BEDTIME PRN 06/19 2345 AC 06/20 PO 2039 Enoxaparin Sodium 40 MG DAILY 06/20 1000 AC 06/21 SC 0856 Ergocalciferol 50,000 IU Th 06/25 1000 AC PO Furosemide 40 MG DAILY 06/20 1428 AC 06/21 IV 0858 Hydromorphone HCl 2 MG Q6P PRN 06/20 1245 AC 06/21 IV 0608 Insulin Aspart 0 TIDAC 06/20 0800 AC 06/21 SC 0857 Insulin Detemir 20 UNITS BID 06/19 2200 AC 06/21 SC 0857 Lidocaine 1 PAT DAILY 06/19 1926 AC 06/21 EXT 0858 Mirtazapine 30 MG AT BEDTIME 06/19 2200 AC 06/20 PO 2158 Oxycodone HCl 15 MG Q4 HRS NEEDED PRN 06/19 1945 AC 06/20 PO 0426 Pantoprazole Sodium 40 MG BID 06/20 1554 AC 06/21 IV 0857 Phenylephrine HCl 1 DEMETRA Q6P PRN 06/19 2345 AC NE Polyethylene Glycol 17 GM DAILY 06/20 1437 AC PO Pregabalin 100 MG BID 06/19 2200 AC 06/21 PO 0856 Senna/Docusate Sodium 2 TAB DAILY 06/20 1437 AC PO Senna/Docusate Sodium 1 TAB BID PRN 06/19 2345 AC PO Sodium Polystyrene 60 ML ONCE ONE 06/20 1445 DC Sulfonate PO 06/20 1446 Zinc Oxide 1 DEMETRA BID 06/19 2200 AC 06/21 TOP 0857 Last 24 Hrs of Lab/Haris Results Last 24 Hrs of Labs/Mics: Laboratory Tests 06/21/17 0825: Anion Gap 11, Estimated GFR > 60, BUN/Creatinine Ratio 42.5 H, CBC w Diff NO MAN DIFF REQ, RBC 3.13 L, MCV 79.8 L, MCH 24.3 L, MCHC 30.4 L, RDW 17.9 H, MPV 8.4, Gran % 52.2, Lymphocytes % 26.5, Monocytes % 9.7 H, Eosinophils % 11.2 H, Basophils % 0.4, Absolute Granulocytes 1.9, Absolute Lymphocytes 1.0 L, Absolute Monocytes 0.4, Absolute Eosinophils 0.4, Absolute Basophils 0 06/20/17 2000: D-Dimer High Sensitivty 7174 H Assessment/Plan Assessment: Patient is 41 y/o F with tensive medical history including job syndrome with multiple abscess formation, type 2 diabetes, presented to the ED with chief complaint of 5 days history of shortness of breathing requiring 2-3 L of O2 saturation and bilateral leg swelling. No leukocytosis and patient is afebrile. Chest x-ray negative for infectious pathology however suggestive of congestion but not overt pulmonary edema. Impression * Acute on chronic congestive heart failure * We will get an echocardiogram and cardiology follow-up. * She was seen by cardiology and lasix was increased to 40mg IV BID * CTA was negative. TSH/T4 nl. * Patient is refusing bilateral lower extremity dopplers despite receiving pain medication prior to the study. * Protonix for GI prophylasix - history of gastric ulcers * GI consult for evaluation of anemia * Patient received 1 pRBC yesterday. Repeat H/H: 7.6. Transfuse for Hgb <7. * Complains of pain right leg-agent is requesting Dilaudid. This was discussed with the attending and we'll started on Dilaudid 2 mg every 6 when necessary. [ Patient has history of polysubstance abuse] * Ins and outs * Accucheck 3 times a day and bedtime. * Daily weight. * Continue her home medication. Consider discontinuing lyrica - can cause LE edema. Code: FULL CODE Diet: Diabetic diet DVT PPx: Lovenox Problem List: 1. Acute decompensated heart failure 2. Symptomatic anemia Pain Ratin Pain Location: legs Pain Goal: Pain 4 or less Pain Plan: Dilaudid Tylenol Tomorrow's Labs & Rationales: bep - lasix cbc - anemia Power Delagdo MD 06/21/17 1603: Attending MD Review Statement Attending Statement Attending MD Statement: examined this patient, discuss w/resident/PA/GEM CUTTER, agreed w/resident/PA/GEM CUTTER, reviewed EMR data (avail), discussed with nursing, amended to note Attending Assessment/Plan: Patient seen and examined. Resting comfortably not in acute distress. She reports feeling better today. Reports the pain is better controlled on the current regimen. She denies chest pain or shortness of breath. Denies palpitations. On telemetry monitoring she has remained in sinus rhythm with occasional sinus tachycardia. She is afebrile. She is hemodynamically stable. On examination she has diminished breath sounds bilaterally. Abdomen is soft and nontender. She has bilateral lower extremity edema The right appears slightly worse than left. Recommendations: -Cardiology follow-up appreciated. Recommendations are to increase dose of diuretic regimen. Recommend obtaining chest x-ray today to evaluate progression of her congestion. Awaiting echocardiogram. -Hemoglobin level improved following transfusion. Follow-up recommendations of the GI service. Continue intravenous PPI therapy. Monitor CBCs daily. -Recommend Dopplers of lower extremity to rule out deep vein thrombosis. -Continue current pain regimen.
--- NOTE | 2017-06-21 10:41 | PN- Cardiology ---
Subjective Subjective: * Breathing is improved but not quite to baseline. She also complains of a posterior neck discomfort. * sinus rhythm * chest CT shows a right lower lobe infiltrate without evidence of PE. Small bilateral pleural effusions noted. * low H/H Objective Vital Signs and I&Os Vital Signs Date Time Temp Pulse Resp B/P B/P Pulse O2 O2 Flow FiO2 Mean Ox Delivery Rate 06/21 0800 98 Nasal 2.0L Cannula 06/21 0634 97.4 89 20 122/62 99 Nasal 2.0L Cannula 06/20 2313 98.5 106 18 96/52 99 Nasal Cannula 06/20 2137 Room Air 06/20 1600 98.8 98 18 128/78 98 Nasal 2.0L Cannula 06/20 1509 Nasal 2.0L Cannula 06/20 1200 98 Nasal 2.0L Cannula Intake & Output 06/21 1600 06/21 0800 06/21 0000 06/20 1600 06/20 0800 06/20 0000 Intake Total 650 200 370 50 680 Output Total 500 2300 Balance 650 200 -130 50 -1620 Intake, IV 20 Intake, Oral 650 200 350 50 680 Output, Urine 500 2300 Patient 230 lb Weight Physical Exam: General: WD/overweight female in NAD; alert and oriented x 3 HEENT: NC/AT, PERRL, EOMI Neck: postive JVD heart: RRR w/o murmur Lungs: clear bilaterally Abdomen: soft, obese, NT, +ve bowel sounds Extremities: 2+ leg edema bilaterally Assessment/Plan Assessment/Plan * This patient has some vascular congestion on her X-ray along with JVD and leg swelling consistent with decompensated right and left heart failure as a cause of her shortness of breath. She is also very anemic which may directly result in shortness of breath or, if longstanding, may have put a strain on her heart causing decompensated heart failure. Finally, Lyrica is a medication that can cause some fluid retension. * No evidence of a PE on CT angiogram. * Increase Lasix to 40mg IV BID. Follow her BUN, creatinine and potassium. * Obtain an echocardiogram to assess for a pericardial effusion since this patient has low voltage on her ECG and to assess her overall EF. Continue telemetry? Yes
[2017-06-21 14:56] VITALS: BP 102/60
--- NOTE | 2017-06-21 21:23 | RADIOLOGY REPORT ---
EXAMINATION: XR PORTABLE CHEST CLINICAL INFORMATION: CHF COMPARISON: Chest 06/19/2017. CTA chest earlier same day TECHNIQUE: Portable frontal view of the chest was obtained. FINDINGS: There is opacification of the right base unchanged. Minimal opacification of the left base possibly atelectasis along with effusion as noted on prior CT. Cardiac silhouette is concomitant pulmonary vascularity unremarkable. IMPRESSION: No change compared with CTA performed same day. Persistent right lower lobe consolidation. Small bilateral effusions possibly atelectasis left base
[2017-06-21 22:03] VITALS: BP 114/70
--- NOTE | 2017-06-22 07:44 | ECHOCARDIOGRAM REPORT ---
SIS MARTINI Age: 41 : 1975 Gender: F Exam Date: 06/21/2017 13:51 Exam Location: 1 [address] Ht (in): 66 Wt (lb): 230 BSA: 2.25 BP: 122 / 62 Ordering Physician: Nam Goode MD Referring Physician: Mehrdad Saenz MD, PhD Technologist: Nisa Epps [facility] Room Number: 185 Indications: HEART FAILURE Rhythm: Sinus Technical Quality: fair FINDINGS Left Ventricle Normal left ventricular size, wall thickness and systolic function with no obvious regional wall motion abnormalities. Normal left ventricular diastolic filling pattern for age. The ejection fraction is visually estimated at 70%. Right Ventricle The right ventricle is normal in size and function. Right Atrium The right atrium is normal in size. Left Atrium The left atrium is normal in size. The interatrial septum is intact. Mitral Valve The mitral valve is normal in structure and function. There is mild to moderate mitral regurgitation. Aortic Valve Structurally normal aortic valve without significant sclerosis or stenosis. There is no aortic regurgitation. Tricuspid Valve The tricuspid valve is normal in structure and function. There is moderate tricuspid regurgitation. Pulmonary artery systolic pressure is mildly elevated to 44mmHg. Pulmonic Valve Structurally normal pulmonic valve. There is trace pulmonic regurgitation. Pericardium Normal pericardium without effusion. No pleural effusion. Great Vessels Normal aortic root dimension. The aortic arch and great vessels are well seen and are normal. CONCLUSIONS 1. Normal EF of 70%. 2. Mild to moderate mitral regurgitation. 3. Moderate tricuspid regurgitation. 4. Trace pulmonic regurgitation. 5. Mild pulmonary hypertension. Mehrdad Saenz M.D. (Electronically Signed) Final Date: 22 June 2017 07:44 MEASUREMENTS (Male / Female) Normal Values 2D ECHO LV Diastolic Diameter PLAX 4.4 cm 4.2 - 5.9 / 3.9 - 5.3 cm LV Systolic Diameter PLAX 2.9 cm 2.1 - 4.0 cm LV Fractional Shortening PLAX 34.1 % 25 - 46 % LV Ejection Fraction 2D Teich 63.3 % IVS Diastolic Thickness 1.1 cm LVPW Diastolic Thickness 1.2 cm LV Relative Wall Thickness 0.5 RV Internal Dim ED PLAX 2.5 cm 1.9 - 3.8 cm LVOT Diameter 2.0 cm Aortic Root Diameter 2.8 cm LA Systolic Diameter LX 4.0 cm 3.0 - 4.0 / 2.7 - 3.8 cm LA Volume 42.0 cm 18 - 58 / 22 - 52 cm Ascending Aorta Diameter 2.4 cm DOPPLER AV Peak Velocity 163.0 cm/s AV Peak Gradient 11.0 mmHg AV Mean Velocity 113.0 cm/s AV Mean Gradient 6.0 mmHg AV Velocity Time Integral 78.9 cm LVOT Peak Velocity 108.0 cm/s LVOT Peak Gradient 4.7 mmHg LVOT Mean Velocity 80.9 cm/s LVOT Mean Gradient 3.0 mmHg LVOT Velocity Time Integral 22.8 cm LVOT Stroke Volume 71.6 cm AV Area Cont Eq vti 0.9 cm AV Area Cont Eq pk 2.1 cm MV Peak Velocity 134.0 cm/s MV Peak Gradient 7.2 mmHg MV Mean Velocity 79.4 cm/s MV Mean Gradient 3.0 mmHg Mitral E Point Velocity 103.0 cm/s Mitral A Point Velocity 60.7 cm/s Mitral E to A Ratio 1.7 MV PHT Velocity 144.0 cm/s MV Deceleration Screven 1199.0 cm/s MV Pressure Half Time 36.0 ms MV Area PHT 6.1 cm MV Deceleration Time 313.0 ms TR Peak Velocity 311.0 cm/s TR Peak Gradient 38.7 mmHg Right Atrial Pressure 5.0 mmHg Pulmonary Artery Systolic Pressu 43.7 mmHg Right Ventricular Systolic Press 43.7 mmHg PV Peak Velocity 127.0 cm/s PV Peak Gradient 6.5 mmHg PV Mean Velocity 92.5 cm/s PV Mean Gradient 4.0 mmHg PV Velocity Time Integral 26.4 cm LV E' Lateral Velocity 15.7 cm/s Mitral E to LV E' Lateral Ratio 6.6 LV E' Septal Velocity 9.9 cm/s Mitral E to LV E' Septal Ratio 10.4
--- NOTE | 2017-06-22 08:32 | PN- Housestaff ---
Johnny Fish MD,Ami 06/22/17 0831: Subjective Follow-up For: Volume overload/ Congestive heart failure. Tele-Events Since Last Visit: SR, ST 89-110 Subjective: Patient visited today, was lying in bed in no acute distress, was alert and oriented. Was complaining of itchiness in several parts of the body, including monitoring adhesives, IV line adhesive, and posterior right thigh, she was requesting Benadryl. She reported improved swelling. No fever or chills, no chest pain, no other events.. Initiall CBC revealed low PLT count, lab was repeated and showed increased number to basline. Review of Systems Constitutional: Reports: see HPI. Objective Last 24 Hrs of Vital Signs/I&O Vital Signs Date Time Temp Pulse Resp B/P B/P Pulse O2 O2 Flow FiO2 Mean Ox Delivery Rate 06/22 1357 98.2 104 20 134/68 91 Nasal 2.5L Cannula 06/22 1025 100 Nasal 2.0L Cannula 06/22 0800 94 Nasal 2.0L Cannula 06/22 0000 94 Nasal 2.0L Cannula 06/21 2203 97.8 101 18 114/70 97 06/21 1456 98.5 98 20 102/60 99 Nasal 2.0L Cannula Intake & Output 06/22 1600 06/22 0800 06/22 0000 Intake Total 150 120 Output Total 2049 360 Balance -2049 150 -240 Intake, Oral 150 120 Number 1 Bowel Movements Output, Urine 2049 360 Physical Exam General Appearance: Alert, Oriented X3, Cooperative, No Acute Distress Skin: as noted above, redness in posterior right thigh dressing in place in right thigh Skin Temp/Moisture Exam: Warm/Dry Sepsis Skin Exam (color): Normal for Ethnicity HEENT: Atraumatic, EOMI, Mucous Membr. moist/pink Cardiovascular: Regular Rate, Normal S1, Normal S2 Lungs: Clear to Auscultation Abdomen: Soft, No Tenderness Extremities: bilateral leg swelling Current Medications: Current Medications Sig/Shahla Start time Last Medication Dose Route Stop Time Status Admin Acetaminophen 500 MG Q6P PRN 06/19 1945 AC PO Cephalexin 500 MG BID 06/190 AC 06/22 PO 0841 Diphenhydramine HCl 25 MG ONCE ONE 06/22 1445 DC 06/22 IV 06/22 1446 1448 Diphenhydramine HCl 1 DEMETRA Q4P PRN 06/22 1445 TOP Diphenhydramine HCl 25 MG ONCE ONE 06/22 0800 DC 06/22 IV 06/22 0801 0840 Diphenhydramine HCl 50 MG ONCE ONE 06/21 2100 DC 06/21 PO 06/21 2101 2210 Diphenhydramine HCl 25 MG AT BEDTIME PRN 06/19 2345 AC 06/20 PO 2039 Enoxaparin Sodium 40 MG DAILY 06/20 1000 OK 06/22 SC 0840 Ergocalciferol 50,000 IU Th 06/25 1000 AC PO Ferrous Sulfate 325 MG TID 06/22 1154 AC 06/22 PO 1334 Furosemide 40 MG 7:30 AM, & 4:30 PM 06/21 1705 AC 06/22 IV 0840 Furosemide 40 MG DAILY 06/20 1428 DC 06/21 IV 0858 Hydromorphone HCl 2 MG Q6P PRN 06/20 1245 AC 06/22 IV 1209 Insulin Aspart 0 TIDAC 06/20 0800 AC 06/22 SC 1209 Insulin Detemir 20 UNITS BID 06/19 2200 06/22 SC 1030 Lidocaine 1 PAT DAILY 06/19 1926 AC 06/21 EXT 0858 Mirtazapine 30 MG AT BEDTIME 06/19 2200 AC 06/21 PO 2206 Oxycodone HCl 15 MG Q4 HRS NEEDED PRN 06/19 1945 06/20 PO 0426 Pantoprazole Sodium 40 MG BID 06/20 1554 AC 06/22 IV 0839 Phenylephrine HCl 1 DEMETRA Q6P PRN 06/19 2345 MO Polyethylene Glycol 17 GM DAILY 06/20 1437 AC PO Pregabalin 100 MG BID 06/19 2200 AC 06/22 PO 1033 Senna/Docusate Sodium 2 TAB DAILY 06/20 1437 AC PO Senna/Docusate Sodium 1 TAB BID PRN 06/19 2345 PO Zinc Oxide 1 DEMETRA BID 06/19 2200 06/21 TOP 2209 Last 24 Hrs of Lab/Haris Results Last 24 Hrs of Labs/Mics: Laboratory Tests 06/22/17 1050: CBC w Diff Pending, WBC Pending, RBC Pending, Hgb Pending, Hct Pending, MCV Pending, MCH Pending, MCHC Pending, RDW Pending, Plt Count Pending, MPV Pending 06/22/17 0805: Anion Gap 11, Estimated GFR > 60, BUN/Creatinine Ratio 48.8 H 06/22/17 0700: CBC w Diff NO MAN DIFF REQ, RBC 3.30 L, MCV 80.0 L, MCH 24.9 L, MCHC 31.1 L, RDW 17.9 H, MPV 10.3, Gran % 57.2, Lymphocytes % 20.0 L, Monocytes % 8.3, Eosinophils % 14.3 H, Basophils % 0.2, Absolute Granulocytes 2.3, Absolute Lymphocytes 0.8 L, Absolute Monocytes 0.3, Absolute Eosinophils 0.6, Absolute Basophils 0, Retic Count 1.59 Assessment/Plan Assessment: Patient is 41 y/o F with tensive medical history including job syndrome with multiple abscess formation, type 2 diabetes, presented to the ED with chief complaint of 5 days history of shortness of breathing requiring 2-3 L of O2 saturation and bilateral leg swelling. No leukocytosis and patient is afebrile. Chest x-ray negative for infectious pathology however suggestive of congestion but not overt pulmonary edema. Impression * Acute on chronic congestive heart failure * We will get an echocardiogram and cardiology follow-up. * She was seen by cardiology and lasix was increased to 40mg IV BID * CTA was negative. TSH/T4 nl. * Patient is refusing bilateral lower extremity dopplers despite receiving pain medication prior to the study. * Protonix for GI prophylasix - history of gastric ulcers * GI consult for evaluation of anemia * Patient received 1 pRBC yesterday. Repeat H/H: 7.6. Transfuse for Hgb <7. * Complains of pain right leg-agent is requesting Dilaudid. This was discussed with the attending and we'll started on Dilaudid 2 mg every 6 when necessary. [ Patient has history of polysubstance abuse] * Ins and outs * Accucheck 3 times a day and bedtime. * Daily weight. * Continue her home medication. Consider discontinuing lyrica - can cause LE edema. * wound consult Code: FULL CODE Diet: Diabetic diet DVT PPx: Lovenox Problem List: 1. Acute decompensated heart failure Pain Ratin (at time of interview) Pain Location: generalized Pain Goal: Pain 4 or less Pain Plan: Continue current plan Tomorrow's Labs & Rationales: CBC Dwayne De Leon MD 06/22/17 1859: Attending MD Review Statement Attending Statement Attending MD Statement: examined this patient, discuss w/resident/PA/TRAINING TECHNICIAN, agreed w/resident/PA/TRAINING TECHNICIAN, reviewed EMR data (avail), discussed with nursing, discussed with case mgmt, reviewed images, amended to note Attending Assessment/Plan: The patient was seen and discussed with house staff. Also discussed with [place] police lieutenant (Silvia) who recommended skin care regimen. Surgical advice regarding right hip wound will be obtained. Appreciate cardiology input. Continue IV Lasix and follow-up H/H post transfusion.
[2017-06-22 08:48] LABS: ABSOLUTE BASOPHIL COUNT 0 /CUMM (0.0-0.2); ABSOLUTE EOSINOPHIL COUNT 0.6 /CUMM (0.0-0.7); ABSOLUTE GRANULOCYTE CT 2.3 /CUMM (1.4-6.5); ABSOLUTE LYMPH COUNT 0.8 /CUMM (1.2-3.4); ABSOLUTE MONOCYTE COUNT 0.3 /CUMM (0.10-0.60); BASOPHIL % 0.2 % (0.0-2.0); GRANULOCYTE % 57.2 % (42.2-75.2); HEMATOCRIT 26.4 % (37-47); MEAN CORPUSCULAR HGB 24.9 PG (27.0-31.0); MEAN CORPUSCULAR HGB CONC 31.1 G/DL (33.0-37.0); MEAN PLATELET VOLUME 10.3 FL (7.4-10.4); RBC DISTRIBUTION WIDTH 17.9 % (11.5-14.5)
[2017-06-22 09:24] LABS: EOSINOPHIL % 14.3 % (0-5)
[2017-06-22 09:25] LABS: PLATELET COUNT 62 /CUMM (130-400)
--- NOTE | 2017-06-22 11:55 | ULTRASOUND REPORT ---
EXAMINATION: US TRIPLEX OF LOWER EXTREMITIES, BILATERAL CLINICAL INFORMATION: Swelling COMPARISON: None TECHNIQUE: Attempted exam however patient the could not tolerate pressure and refused the exam. FINDINGS: Few images acquired of the RIGHT calf unremarkable. IMPRESSION: Nondiagnostic, patient did not tolerate pressure, declined the exam.
[2017-06-22 13:03] LABS: ABSOLUTE BASOPHIL COUNT 0 /CUMM (0.0-0.2); ABSOLUTE EOSINOPHIL COUNT 0.8 /CUMM (0.0-0.7); ABSOLUTE GRANULOCYTE CT 3.3 /CUMM (1.4-6.5); ABSOLUTE LYMPH COUNT 0.9 /CUMM (1.2-3.4); ABSOLUTE MONOCYTE COUNT 0.4 /CUMM (0.10-0.60); MEAN CORPUSCULAR HGB 24.7 PG (27.0-31.0); MEAN PLATELET VOLUME 8.6 FL (7.4-10.4); WHITE BLOOD CELL COUNT 5.4 /CUMM (4.8-10.8)
[2017-06-22 13:57] VITALS: BP 134/68
[2017-06-22 14:52] LABS: BASOPHIL % 0.3 % (0.0-2.0); EOSINOPHIL % 14.5 % (0-5); HEMATOCRIT 27.5 % (37-47); MEAN CORPUSCULAR VOLUME 79.9 FL (81.0-99.0); RBC DISTRIBUTION WIDTH 18.4 % (11.5-14.5); RED BLOOD CELL CT 3.44 /CUMM (4.20-5.40)
[2017-06-22 14:54] LABS: PLATELET COUNT 177 /CUMM (130-400)
[2017-06-22 21:33] VITALS: BP 118/76
[2017-06-23 07:13] VITALS: BP 136/74
[2017-06-23 07:53] LABS: ABSOLUTE BASOPHIL COUNT 0 /CUMM (0.0-0.2); ABSOLUTE EOSINOPHIL COUNT 0.8 /CUMM (0.0-0.7); ABSOLUTE GRANULOCYTE CT 2.6 /CUMM (1.4-6.5); ABSOLUTE LYMPH COUNT 0.8 /CUMM (1.2-3.4); ABSOLUTE MONOCYTE COUNT 0.4 /CUMM (0.10-0.60); BASOPHIL % 0.6 % (0.0-2.0); GRANULOCYTE % 57.4 % (42.2-75.2); HEMATOCRIT 25.9 % (37-47); MEAN CORPUSCULAR HGB 24.3 PG (27.0-31.0); MEAN CORPUSCULAR HGB CONC 30.6 G/DL (33.0-37.0); MEAN CORPUSCULAR VOLUME 79.3 FL (81.0-99.0); MEAN PLATELET VOLUME 8.7 FL (7.4-10.4); PLATELET COUNT 166 /CUMM (130-400); RBC DISTRIBUTION WIDTH 18.4 % (11.5-14.5); RED BLOOD CELL CT 3.26 /CUMM (4.20-5.40); WHITE BLOOD CELL COUNT 4.6 /CUMM (4.8-10.8)
[2017-06-23 08:52] LABS: EOSINOPHIL % 17.1 % (0-5)
--- NOTE | 2017-06-23 11:38 | PN- Cardiology ---
Subjective Subjective: The patient has no complaints today. She is not short of breath. She is off oxygen. She is in sinus on the monitor without obvious arrhythmias. She has not had troponins drawn on this admission. Her EKG is unremarkable. Her echocardiogram shows mild pulmonary hypertension and some mitral and tricuspid regurgitation. LV systolic function is normal. Objective Vital Signs and I&Os Vital Signs Date Time Temp Pulse Resp B/P B/P Pulse O2 O2 Flow FiO2 Mean Ox Delivery Rate 06/23 712 97.9 96 16 136/74 96 Nasal 4.0L Cannula 06/23 0000 Nasal 2.0L Cannula 06/22 2133 98.9 101 18 118/76 96 06/22 1600 Nasal 2.0L Cannula 06/22 1357 98.2 104 20 134/68 91 Nasal 2.5L Cannula Intake & Output 06/23 0800 06/23 0000 06/22 1600 06/22 0000 Intake Total 729 855 9768 150 120 Output Total 1250 2350 360 Balance -600 240 -1330 150 -240 Intake, Oral 985 368 4912 150 120 Number 1 1 Bowel Movements Output, Urine 1250 2350 360 Physical Exam: She is in no distress HEENT exam is normal Chest is clear Heart regular rhythm, no murmurs Extremities chronic edema noted Current Medications: Current Medications Sig/Shahla Start time Last Medication Dose Route Stop Time Status Admin Acetaminophen 500 MG Q6P PRN 06/19 1945 AC PO Cephalexin 500 MG BID 06/19 2200 AC 06/23 PO 0825 Diphenhydramine HCl 25 MG ONCE ONE 06/23 0815 DC 06/23 IV 06/23 0816 0822 Diphenhydramine HCl 50 MG ONCE ONE 06/22 2145 DC 06/22 PO 06/22 2146 2315 Diphenhydramine HCl 25 MG ONCE ONE 06/22 1445 DC 06/22 IV 06/22 1446 1448 Diphenhydramine HCl 1 DEMETRA Q4P PRN 06/22 1445 AC 06/22 TOP 2005 Diphenhydramine HCl 25 MG AT BEDTIME PRN 06/19 2345 AC 06/20 PO 2039 Ergocalciferol 50,000 IU Th 06/25 1000 AC PO Ferrous Sulfate 325 MG TID 06/22 1154 AC 06/23 PO 0825 Furosemide 40 MG 7:30 AM, & 4:30 PM 06/21 1705 AC 06/23 IV 0824 Hydromorphone HCl 2 MG Q6P PRN 06/20 1245 AC 06/23 IV 0601 Insulin Aspart 0 TIDAC 06/20 0800 AC 06/23 SC 0758 Insulin Detemir 20 UNITS BID 06/19 2200 AC 06/23 SC 0826 Lidocaine 1 PAT DAILY 06/19 1926 AC 06/21 EXT 0858 Mirtazapine 30 MG AT BEDTIME 06/19 220 AC 06/22 PO 2146 Oxycodone HCl 15 MG Q4 HRS NEEDED PRN 06/19 1945 AC 06/20 PO 0426 Pantoprazole Sodium 40 MG BID 06/20 1554 AC 06/23 IV 0824 Phenylephrine HCl 1 DEMETRA Q6P PRN 06/19 2345 AC FL Polyethylene Glycol 17 GM DAILY 06/20 1437 AC PO Pregabalin 100 MG BID 06/19 2200 AC 06/23 PO 0825 Senna/Docusate Sodium 2 TAB DAILY 06/20 1437 AC PO Senna/Docusate Sodium 1 TAB BID PRN 06/19 2345 AC PO Zinc Oxide 1 DEMETRA BID 06/19 220 AC 06/23 TOP 0825 Results Last 48 Hrs of Labs/Mics: Laboratory Tests 06/23/17 0635: Anion Gap 12, Estimated GFR > 60, BUN/Creatinine Ratio 48.8 H, CBC w Diff NO MAN DIFF REQ, RBC 3.26 L, MCV 79.3 L, MCH 24.3 L, MCHC 30.6 L, RDW 18.4 H, MPV 8.7, Gran % 57.4, Lymphocytes % 16.9 L, Monocytes % 8.0, Eosinophils % 17.1 H, Basophils % 0.6, Absolute Granulocytes 2.6, Absolute Lymphocytes 0.8 L, Absolute Monocytes 0.4, Absolute Eosinophils 0.8, Absolute Basophils 0 06/22/17 1050: CBC w Diff NO MAN DIFF REQ, RBC 3.44 L, MCV 79.9 L, MCH 24.7 L, MCHC 31.0 L, RDW 18.4 H, MPV 8.6, Gran % 61.0, Lymphocytes % 16.1 L, Monocytes % 8.1, Eosinophils % 14.5 H, Basophils % 0.3, Absolute Granulocytes 3.3, Absolute Lymphocytes 0.9 L, Absolute Monocytes 0.4, Absolute Eosinophils 0.8, Absolute Basophils 0 06/22/17 0805: Anion Gap 11, Estimated GFR > 60, BUN/Creatinine Ratio 48.8 H 06/22/17 0700: CBC w Diff NO MAN DIFF REQ, RBC 3.30 L, MCV 80.0 L, MCH 24.9 L, MCHC 31.1 L, RDW 17.9 H, MPV 10.3, Gran % 57.2, Lymphocytes % 20.0 L, Monocytes % 8.3, Eosinophils % 14.3 H, Basophils % 0.2, Absolute Granulocytes 2.3, Absolute Lymphocytes 0.8 L, Absolute Monocytes 0.3, Absolute Eosinophils 0.6, Absolute Basophils 0, Retic Count 1.59 Assessment/Plan Assessment/Plan The patient is stable from a cardiac standpoint. Her edema is resolving. She can be changed to oral Lasix. She can be removed from telemetry. Please call for further cardiac input Continue telemetry? No
--- NOTE | 2017-06-23 11:51 | PN- Housestaff ---
See Addendum Subjective Follow-up For: Leg swelling and shortness of breathing New onset CHF Tele-Events Since Last Visit: SR, [place] 95-104 Subjective: Patient visited today, was lying in bed comfortably in no acute distress, was alert and oriented. Was feeling itchy in right chest and right arm, right hip and was requesting for IV Benadryl. Patient strongly believe that no other medication would help her ( not even a hydroxyzine or oral or local antihistamine or a steroid). Patient improved in terms of breathing and swelling of the legs. PT consult was placed. No fever or chills, no shortness of breathing, no chest pain, no other events. There would be a chance that patient can be discharged O nursing facility tomorrow. Patient is currently off telemetry and GM hold. Review of Systems Constitutional: Reports: see HPI. Objective Last 24 Hrs of Vital Signs/I&O Vital Signs Date Time Temp Pulse Resp B/P B/P Pulse O2 O2 Flow FiO2 Mean Ox Delivery Rate 06/23 1435 98.4 100 18 132/74 97 Nasal 2.0L Cannula 06/23 1401 93 Nasal 2.0L Cannula 06/23 0800 97 Nasal 2.5L Cannula 06/23 0713 97.9 96 16 136/74 96 Nasal 4.0L Cannula 06/23 0000 Nasal 2.0L Cannula 06/22 2133 98.9 101 18 118/76 96 Intake & Output 06/23 1600 /06 0800 02 0000 Intake Total 1000 650 240 Output Total 2200 1250 Balance -1200 -600 240 Intake, Oral 1000 650 240 Output, Urine 2200 1250 Physical Exam General Appearance: Alert, Oriented X3, Cooperative, No Acute Distress Skin: scratch tony, erythema in the right upper arm and chest, bilateral leg erythema, right thigh in dressing, eythema and scratch beckwith Skin Temp/Moisture Exam: Warm/Dry Sepsis Skin Exam (color): Normal for Ethnicity HEENT: Atraumatic, EOMI, Mucous Membr. moist/pink Cardiovascular: Regular Rate, Normal S1, Normal S2 Lungs: Clear to Auscultation Abdomen: Soft, No Tenderness Neurological: Normal Speech Extremities: scratch tony, erythema in the right upper arm and chest, bilateral leg erythema, right thigh in dressing, eythema and scratch beckwith Current Medications: Current Medications Sig/Shahla Start time Last Medication Dose Route Stop Time Status Admin Acetaminophen 500 MG Q6P PRN 06/19 1945 AC PO Albuterol Sulfate 3 ML Q4H PRN 06/23 1430 AC 06/23 INH 1419 Cephalexin 500 MG BID 06/19 2200 AC 06/23 PO 0825 Diphenhydramine HCl 25 MG ONCE ONE 06/23 1430 DC 06/23 IV 06/23 1431 1438 Diphenhydramine HCl 25 MG ONCE ONE 06/23 0815 DC 06/23 IV 06/23 0816 0822 Diphenhydramine HCl 50 MG ONCE ONE 06/22 2145 DC 06/22 PO 06/22 2146 2315 Diphenhydramine HCl 1 DEMETRA Q4P PRN 06/22 1445 06/22 TOP 2005 Diphenhydramine HCl 25 MG AT BEDTIME PRN 06/19 2345 06/20 PO 2039 Ergocalciferol 50,000 IU Th 06/25 1000 AC PO Ferrous Sulfate 325 MG TID 06/22 1154 AC 06/23 PO 0825 Furosemide 40 MG 7:30 AM, & 4:30 PM 06/23 1630 AC PO Furosemide 40 MG 7:30 AM, & 4:30 PM 06/21 1705 DC 06/23 IV 0824 Hydromorphone HCl 2 MG Q6P PRN 06/20 1245 AC 06/23 IV 1147 Insulin Aspart 0 TIDAC 06/20 0800 AC 06/23 SC 1147 Insulin Detemir 20 UNITS BID 06/19 2200 AC 06/23 SC 0826 Lidocaine 1 PAT DAILY 06/19 1926 AC 06/21 EXT 0858 Mirtazapine 30 MG AT BEDTIME 06/19 2200 AC 06/22 PO 2146 Oxycodone HCl 15 MG Q4 HRS NEEDED PRN 06/19 1945 AC 06/20 PO 0426 Pantoprazole Sodium 40 MG BID 06/20 1554 AC 06/23 IV 0824 Phenylephrine HCl 1 DEMETRA Q6P PRN 06/19 2345 AC IN Polyethylene Glycol 17 GM DAILY 06/20 1437 AC PO Pregabalin 100 MG BID 06/19 2200 AC 06/23 PO 0825 Senna/Docusate Sodium 2 TAB DAILY 06/20 1437 AC PO Senna/Docusate Sodium 1 TAB BID PRN 06/19 2345 AC PO Zinc Oxide 1 DEMETRA BID 06/19 2200 AC 06/23 TOP 0825 Last 24 Hrs of Lab/Haris Results Last 24 Hrs of Labs/Mics: Laboratory Tests 06/23/17 0635: Anion Gap 12, Estimated GFR > 60, BUN/Creatinine Ratio 48.8 H, CBC w Diff NO MAN DIFF REQ, RBC 3.26 L, MCV 79.3 L, MCH 24.3 L, MCHC 30.6 L, RDW 18.4 H, MPV 8.7, Gran % 57.4, Lymphocytes % 16.9 L, Monocytes % 8.0, Eosinophils % 17.1 H, Basophils % 0.6, Absolute Granulocytes 2.6, Absolute Lymphocytes 0.8 L, Absolute Monocytes 0.4, Absolute Eosinophils 0.8, Absolute Basophils 0 Assessment/Plan Assessment: Patient is 41 y/o F with tensive medical history including job syndrome with multiple abscess formation, type 2 diabetes, presented to the ED with chief complaint of 5 days history of shortness of breathing requiring 2-3 L of O2 saturation and bilateral leg swelling. No leukocytosis and patient is afebrile. Chest x-ray negative for infectious pathology however suggestive of congestion but not overt pulmonary edema. Echo: 1. Normal EF of 70%. 2. Mild to moderate mitral regurgitation. 3. Moderate tricuspid regurgitation. 4. Trace pulmonic regurgitation. 5. Mild pulmonary hypertension. CTA was negative. TSH/T4 nl. Impression * Acute on chronic congestive heart failure * Patient initially on IV Lasix, will change to by mouth Lasix 40 twice a day today * Patient is refusing bilateral lower extremity dopplers despite receiving pain medication prior to the study. * Protonix for GI prophylasix - history of gastric ulcers * Will follow GI consult for evaluation of anemia * Patient received 1 pRBC. Repeat H/H: 7.9. Transfuse for Hgb <7. * Complains of pain right leg-agent is requesting Dilaudid. This was discussed with the attending and we'll started on Dilaudid 2 mg every 6 when necessary. [ Patient has history of polysubstance abuse] * Ins and outs * Accucheck 3 times a day and bedtime. * Daily weight. * Continue her home medication. Consider discontinuing lyrica - can cause LE edema. * wound consult Code: FULL CODE Diet: Diabetic diet DVT PPx: Lovenox Problem List: 1. Acute decompensated heart failure Pain Ratin Pain Location: Generalized Pain Goal: Pain 4 or less Pain Plan: The current plan Tomorrow's Labs & Rationales: C KATHRYN BEP
[2017-06-23 14:35] VITALS: BP 132/74
[2017-06-23 21:57] VITALS: BP 120/76
[2017-06-24 06:39] VITALS: BP 124/66
--- NOTE | 2017-06-24 07:35 | PN- Housestaff ---
See Addendum Subjective Follow-up For: Leg swelling and shortness of breathing New onset decompensated CHF sec to anemia Tele-Events Since Last Visit: Off tele Subjective: Patient visited today, was lying in bed comfortably in no acute distress, was alert and oriented. Reported improved swelling of the legs, improved shortness of breathing. No fever or chills, no shortness of breathing, no chest pain, no other events. She was able to take a few steps. We asked PT evaluation. Change IV Lasix to by mouth Lasix 40 twice a day yesterday. Review of Systems Constitutional: Reports: see HPI. Objective Last 24 Hrs of Vital Signs/I&O Vital Signs Date Time Temp Pulse Resp B/P B/P Pulse O2 O2 Flow FiO2 Mean Ox Delivery Rate 06/24 638 97.9 92 18 124/66 98 Nasal 2.0L Cannula 06/23 2157 98.3 100 18 120/76 97 06/23 1435 98.4 100 18 132/74 97 Nasal 2.0L Cannula 06/23 1401 93 Nasal 2.0L Cannula 06/23 0800 97 Nasal 2.5L Cannula Intake & Output 06/24 0800 06/24 0000 06/23 1600 Intake Total 261 521 8188 Output Total 200 1775 2200 Balance -80 -1575 -1200 Intake, IV 20 Intake, Oral 916 871 5526 Output, Urine 200 1775 2200 Physical Exam General Appearance: Alert, Oriented X3, Cooperative, No Acute Distress Skin: scratch tony, erythema in the right upper arm and chest, bilateral leg erythema, right thigh in dressing, eythema and scratch beckwith Skin Temp/Moisture Exam: Warm/Dry Sepsis Skin Exam (color): Normal for Ethnicity HEENT: Atraumatic, EOMI, Mucous Membr. moist/pink Cardiovascular: Regular Rate, Normal S1, Normal S2 Lungs: Clear to Auscultation Abdomen: Soft, No Tenderness Neurological: Normal Speech, Strength at 5/5 X4 Ext Extremities: +1-+2 bilateral edema Current Medications: Current Medications Sig/Shahla Start time Last Medication Dose Route Stop Time Status Admin Acetaminophen 500 MG Q6P PRN 06/19 1945 AC PO Albuterol Sulfate 3 ML Q4H PRN 06/23 1430 AC 06/23 INH 1419 Cephalexin 500 MG BID 06/19 2200 DC 06/23 PO 0825 Diphenhydramine HCl 25 MG ONCE ONE 06/24 0230 DC 06/24 IV 06/24 0231 0345 Diphenhydramine HCl 50 MG ONCE ONE 06/23 2130 DC 06/23 PO 06/23 2131 2212 Diphenhydramine HCl 25 MG ONCE ONE 06/23 1430 DC 06/23 IV 06/23 1431 1438 Diphenhydramine HCl 25 MG ONCE ONE 06/23 0815 DC 06/23 IV 06/23 0816 0822 Diphenhydramine HCl 1 DEMETRA Q4P PRN 06/22 1445 AC 06/22 TOP 2005 Diphenhydramine HCl 25 MG AT BEDTIME PRN 06/19 2345 AC 06/20 PO 2039 Ergocalciferol 50,000 IU Th 06/25 1000 AC PO Ferrous Sulfate 325 MG TID 06/22 1154 AC 06/23 PO 2212 Furosemide 40 MG 7:30 AM, & 4:30 PM 06/23 1630 AC 06/23 PO 1800 Furosemide 40 MG 7:30 AM, & 4:30 PM 06/21 1705 DC 06/23 IV 0824 Hydromorphone HCl 2 MG Q6P PRN 06/20 1245 AC 06/24 IV 0625 Insulin Aspart 0 TIDAC 06/20 0800 AC 06/23 SC 1147 Insulin Detemir 20 UNITS BID 06/19 2200 AC 06/23 SC 2219 Lidocaine 1 PAT DAILY 06/19 1926 AC 06/21 EXT 0858 Mirtazapine 30 MG AT BEDTIME 06/19 2200 AC 06/23 PO 2212 Oxycodone HCl 15 MG Q4 HRS NEEDED PRN 06/19 1945 AC 06/20 PO 0426 Pantoprazole Sodium 40 MG BID 06/20 1554 AC 06/23 IV 0824 Phenylephrine HCl 1 DEMETRA Q6P PRN 06/19 2345 AC AK Polyethylene Glycol 17 GM DAILY 06/20 1437 AC PO Pregabalin 100 MG BID 06/19 2200 AC 06/23 PO 2213 Senna/Docusate Sodium 2 TAB DAILY 06/20 1437 AC PO Senna/Docusate Sodium 1 TAB BID PRN 06/19 2345 AC PO Zinc Oxide 1 DEMETRA BID 06/19 2200 AC 06/23 TOP 2212 Last 24 Hrs of Lab/Haris Results Last 24 Hrs of Labs/Mics: Laboratory Tests 06/24/17 0625: CBC w Diff Pending, WBC Pending, RBC Pending, Hgb Pending, Hct Pending, MCV Pending, MCH Pending, MCHC Pending, RDW Pending, Plt Count Pending, MPV Pending Assessment/Plan Assessment: Patient was 41 y/o F with extensive medical history including job syndrome with multiple abscess formation, type 2 diabetes, presented to the ED with chief complaint of 5 days history of shortness of breathing requiring 2-3 L of O2 saturation and bilateral leg swelling. No leukocytosis and patient was afebrile. Chest x-ray negative for infectious pathology however suggestive of congestion but not overt pulmonary edema. Physical Exam General Appearance Alert, Oriented X3, mild distress Skin erythematous wound area covered with dreasing on the lateral aspect of thigh. mumltile erythematous area underneath skin fold of abdominal area. Skin Temp/Moisture Exam: Cool/Dry Sepsis Skin Exam (color): Normal for Ethnicity HEENT EOMI, Mucous Membr. moist/pink Neck Supple, JVD Lymphatic Cervical nl Cardiovascular Regular Rate Lungs mild bibasilar crackles Abdomen erythema with some discharge prominent on abdominal folds Neurological Normal Speech Extremities No Clubbing, lateral aspect of right thigh has a open wound with mild discharge. Vascular Pulses Symmetrical Labs at admission: Hb 7.6, PLT 213, WBC 4.4, d-dimer 7000, lactic acid 2.7, BEP others insignificant, ProBNP 784, TSH/T4 nl. Imagings at admission: Echo: 1. Normal EF of 70%. 2. Mild to moderate mitral regurgitation. 3. Moderate tricuspid regurgitation. 4. Trace pulmonic regurgitation. 5. Mild pulmonary hypertension. CXR: Persistent bibasilar atelectasis and small right pleural effusion. Central vascular congestion. CTA: No change compared with CTA performed same day. Persistent right lower lobe consolidation. Small bilateral effusions possibly atelectasis left base Patient was admitted to telemetry floor for management of following conditions: Leg swelling and shortness of breathing associated with anemia One unit of blood was transfused to correct anemia H&h remained stable around 7.6-8 today. Patient was initially on IV Lasix, with improvement of the conditino was changed to by mouth Lasix 40 twice a day.Patient refused bilateral lower extremity dopplers despite receiving pain medication prior to the study. echo showed Normal EF. Anemia Blood transufusion was done, GI consulte who suggested to discontinue aspirin and follow in outpatient for repeating endoscopy. Protonix IV was administered initially and changed to by mouth pantoprazole upon discharge. Chronic pain Patient complained of pain right leg-agent was requesting Dilaudid. This was discussed with the attending and started on Dilaudid 2 mg every 6 when necessary. [Patient has history of polysubstance abuse]. Patient started to have itching with dilaudid for which benadryl was administered. Patient was stable to be discharged on home PO pain medications. FC Diabetic diet DVT ppx: ALPS Patient was discharged with instuctions below: -Please follow-up with your primary care provider within 7 days after discharge. 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 -Please come back to the hospital if your symptoms got worse. Problem List: 1. Anemia 2. Acute decompensated heart failure Pain Ratin Pain Location: generalized Pain Goal: Pain 4 or less Pain Plan: Conitnue current plan Tomorrow's Labs & Rationales: CBC BEP
[2017-06-24 08:16] LABS: ABSOLUTE BASOPHIL COUNT 0 /CUMM (0.0-0.2); ABSOLUTE EOSINOPHIL COUNT 0.8 /CUMM (0.0-0.7); ABSOLUTE GRANULOCYTE CT 2.6 /CUMM (1.4-6.5); ABSOLUTE LYMPH COUNT 0.8 /CUMM (1.2-3.4); ABSOLUTE MONOCYTE COUNT 0.4 /CUMM (0.10-0.60); BASOPHIL % 0.6 % (0.0-2.0); GRANULOCYTE % 56.6 % (42.2-75.2); HEMATOCRIT 24.3 % (37-47); MEAN CORPUSCULAR HGB 24.7 PG (27.0-31.0); MEAN CORPUSCULAR HGB CONC 31.4 G/DL (33.0-37.0); MEAN CORPUSCULAR VOLUME 78.7 FL (81.0-99.0); MEAN PLATELET VOLUME 8.3 FL (7.4-10.4); PLATELET COUNT 166 /CUMM (130-400); RBC DISTRIBUTION WIDTH 19.1 % (11.5-14.5); RED BLOOD CELL CT 3.08 /CUMM (4.20-5.40); WHITE BLOOD CELL COUNT 4.6 /CUMM (4.8-10.8)
[2017-06-24 09:37] LABS: EOSINOPHIL % 16.8 % (0-5)
[2017-06-24] MEDS ORDERED: FERROUS SULFAT325 M2 PO ×2 (10:08→11:35)
[2017-06-24] MEDS ORDERED: LASIX40 M1 PO (10:08)
[2017-06-24] MEDS ORDERED: ITCH RELIEF CRE28 GM TOP (10:08)
--- NOTE | 2017-06-24 10:55 | Discharge Summary ---
Visit Information Visit Dates Admission Date: 06/19/17 Discharge Date: 06/24/2017 Hospital Course Course Attending Physician: Dwayne Bean MD Primary Care Physician: Syed FARFAN,[facility] Course: Patient was 41 y/o F with extensive medical history including job syndrome with multiple abscess formation, type 2 diabetes, presented to the ED with chief complaint of 5 days history of shortness of breathing requiring 2-3 L of O2 saturation and bilateral leg swelling. No leukocytosis and patient was afebrile. Chest x-ray negative for infectious pathology however suggestive of congestion but not overt pulmonary edema. Physical Exam General Appearance Alert, Oriented X3, mild distress Skin erythematous wound area covered with dreasing on the lateral aspect of thigh. mumltile erythematous area underneath skin fold of abdominal area. Skin Temp/Moisture Exam: Cool/Dry Sepsis Skin Exam (color): Normal for Ethnicity HEENT EOMI, Mucous Membr. moist/pink Neck Supple, JVD Lymphatic Cervical nl Cardiovascular Regular Rate Lungs mild bibasilar crackles Abdomen erythema with some discharge prominent on abdominal folds Neurological Normal Speech Extremities No Clubbing, lateral aspect of right thigh has a open wound with mild discharge. Vascular Pulses Symmetrical Labs at admission: Hb 7.6, PLT 213, WBC 4.4, d-dimer 7000, lactic acid 2.7, BEP others insignificant, ProBNP 784, TSH/T4 nl. Imagings at admission: Echo: 1. Normal EF of 70%. 2. Mild to moderate mitral regurgitation. 3. Moderate tricuspid regurgitation. 4. Trace pulmonic regurgitation. 5. Mild pulmonary hypertension. CXR: Persistent bibasilar atelectasis and small right pleural effusion. Central vascular congestion. CTA: No change compared with CTA performed same day. Persistent right lower lobe consolidation. Small bilateral effusions possibly atelectasis left base Patient was admitted to telemetry floor for management of following conditions: Leg swelling and shortness of breathing associated with anemia One unit of blood was transfused to correct anemia H&h remained stable around 7.6-8 today. Patient was initially on IV Lasix, with improvement of the conditino was changed to by mouth Lasix 40 twice a day.Patient refused bilateral lower extremity dopplers despite receiving pain medication prior to the study. echo showed Normal EF. Anemia Blood transufusion was done, GI consulte who suggested to discontinue aspirin and follow in outpatient for repeating endoscopy. Protonix IV was administered initially and changed to by mouth pantoprazole upon discharge. Chronic pain Patient complained of pain right leg-agent was requesting Dilaudid. This was discussed with the attending and started on Dilaudid 2 mg every 6 when necessary. [Patient has history of polysubstance abuse]. Patient started to have itching with dilaudid for which benadryl was administered. Patient was stable to be discharged on home PO pain medications. Allergies: Coded Allergies: codeine (Intermediate, HIVES 06/17/16) nickel (Intermediate, RASH 06/17/16) adhesive tape (Mild, RASH 06/17/16) duloxetine (Intermediate, NAUSEA 06/17/16) hydrocodone (GI UPSET (ESOPHAGITIS) 06/17/16) ibuprofen (GI UPSET (ESOPHAGITIS) 06/17/16) Pertinent Lab Results: PATIENT: SIS MARTINI PRESENT AGE: 41 PATIENT ACCOUNT NO: [id number] : [birth year] LOCATION: [facility] ORDERING PHYSICIAN: Nam Goode MD SERVICE DATE: 06/19/17- EXAM TYPE: CARD - ECHOCARDIOGRAM SIS MARTINI Age: 41 : 1975 Gender: F Exam Date: 06/21/2017 13:51 Exam Location: [facility] [place] Ht (in): 66 Wt (lb): 230 BSA: 2.25 BP: 122 / 62 Ordering Physician: Nam Goode MD Referring Physician: Mehrdad Saenz MD, PhD Technologist: Nisa Epps [facility] Room Number: 185 Indications: HEART FAILURE Rhythm: Sinus Technical Quality: fair FINDINGS Left Ventricle Normal left ventricular size, wall thickness and systolic function with no obvious regional wall motion abnormalities. Normal left ventricular diastolic filling pattern for age. The ejection fraction is visually estimated at 70%. Right Ventricle The right ventricle is normal in size and function. Right Atrium The right atrium is normal in size. Left Atrium The left atrium is normal in size. The interatrial septum is intact. Mitral Valve The mitral valve is normal in structure and function. There is mild to moderate mitral regurgitation. Aortic Valve Structurally normal aortic valve without significant sclerosis or stenosis. There is no aortic regurgitation. Tricuspid Valve The tricuspid valve is normal in structure and function. There is moderate tricuspid regurgitation. Pulmonary artery systolic pressure is mildly elevated to 44mmHg. Pulmonic Valve Structurally normal pulmonic valve. There is trace pulmonic regurgitation. Pericardium Normal pericardium without effusion. No pleural effusion. Great Vessels Normal aortic root dimension. The aortic arch and great vessels are well seen and are normal. CONCLUSIONS 1. Normal EF of 70%. 2. Mild to moderate mitral regurgitation. 3. Moderate tricuspid regurgitation. 4. Trace pulmonic regurgitation. 5. Mild pulmonary hypertension. Mehrdad Saenz M.D. (Electronically Signed) Final Date: 22 June 2017 07:44 MEASUREMENTS (Male / Female) Normal Values 2D ECHO LV Diastolic Diameter PLAX 4.4 cm 4.2 - 5.9 / 3.9 - 5.3 cm LV Systolic Diameter PLAX 2.9 cm 2.1 - 4.0 cm LV Fractional Shortening PLAX 34.1 % 25 - 46 % LV Ejection Fraction 2D Teich 63.3 % IVS Diastolic Thickness 1.1 cm LVPW Diastolic Thickness 1.2 cm LV Relative Wall Thickness 0.5 RV Internal Dim ED PLAX 2.5 cm 1.9 - 3.8 cm LVOT Diameter 2.0 cm Aortic Root Diameter 2.8 cm LA Systolic Diameter LX 4.0 cm 3.0 - 4.0 / 2.7 - 3.8 cm LA Volume 42.0 cm 18 - 58 / 22 - 52 cm Ascending Aorta Diameter 2.4 cm DOPPLER AV Peak Velocity 163.0 cm/s AV Peak Gradient 11.0 mmHg AV Mean Velocity 113.0 cm/s AV Mean Gradient 6.0 mmHg AV Velocity Time Integral 78.9 cm LVOT Peak Velocity 108.0 cm/s LVOT Peak Gradient 4.7 mmHg LVOT Mean Velocity 80.9 cm/s LVOT Mean Gradient 3.0 mmHg LVOT Velocity Time Integral 22.8 cm LVOT Stroke Volume 71.6 cm AV Area Cont Eq vti 0.9 cm AV Area Cont Eq pk 2.1 cm MV Peak Velocity 134.0 cm/s MV Peak Gradient 7.2 mmHg MV Mean Velocity 79.4 cm/s MV Mean Gradient 3.0 mmHg Mitral E Point Velocity 103.0 cm/s Mitral A Point Velocity 60.7 cm/s Mitral E to A Ratio 1.7 MV PHT Velocity 144.0 cm/s MV Deceleration Larue 1199.0 cm/s MV Pressure Half Time 36.0 ms MV Area PHT 6.1 cm MV Deceleration Time 313.0 ms TR Peak Velocity 311.0 cm/s TR Peak Gradient 38.7 mmHg Right Atrial Pressure 5.0 mmHg Pulmonary Artery Systolic Pressu 43.7 mmHg Right Ventricular Systolic Press 43.7 mmHg PV Peak Velocity 127.0 cm/s PV Peak Gradient 6.5 mmHg PV Mean Velocity 92.5 cm/s PV Mean Gradient 4.0 mmHg PV Velocity Time Integral 26.4 cm LV E' Lateral Velocity 15.7 cm/s Mitral E to LV E' Lateral Ratio 6.6 LV E' Septal Velocity 9.9 cm/s Mitral E to LV E' Septal Ratio 10.4 DICTATED BY: Mehrdad Saenz MD, PHD DATE/TIME DICTATED:06/22/17743 ETHYLBENZENE CRACKING SUPERVISOR:SHELBIE DATE/TIME TRANSCRIBED:06/22/17743 CONFIDENTIAL, DO NOT COPY WITHOUT APPROPRIATE AUTHORIZATION. <Electronically signed in Other Vendor System> SIGNED BY: Mehrdad Saenz MD, PHD 06/22/17743 PATIENT: SIS MARTINI PRESENT AGE: 41 PATIENT ACCOUNT NO: [id number] : 76 LOCATION: [facility] ORDERING PHYSICIAN: Ar JOSHI SERVICE DATE: 06/19/17 EXAM TYPE: RAD - XRY-PORTABLE CHEST XRAY EXAMINATION: XR PORTABLE CHEST CLINICAL INFORMATION: Shortness of breath COMPARISON: 04/25/2017 TECHNIQUE: Portable frontal view of the chest was obtained. FINDINGS: Persistent bibasilar atelectasis and right pleural effusion, similar to the previous study. Stable cardiomediastinal silhouette. Central vascular congestion. The right IJ central venous catheter has been removed. No pneumothorax. IMPRESSION: Persistent bibasilar atelectasis and small right pleural effusion. Central vascular congestion. DICTATED BY: Mohinder Thornton MD DATE/TIME DICTATED:06/19/171101 ETHYLBENZENE CRACKING SUPERVISOR:SHELBIE DATE/TIME TRANSCRIBED:06/19/171101 CONFIDENTIAL, DO NOT COPY WITHOUT APPROPRIATE AUTHORIZATION. <Electronically signed in Other Vendor System> SIGNED BY: Mohinder Thornton MD 07/05 1115 ========= PATIENT: SIS MARTINI PRESENT AGE: 41 PATIENT ACCOUNT NO: [id number] : 76 LOCATION: [facility] ORDERING PHYSICIAN: Ar JOSHI SERVICE DATE: 06/19/17 EXAM TYPE: US - US-EXT BILAT VENOUS DOPPLER EXAMINATION: US TRIPLEX OF LOWER EXTREMITIES, BILATERAL CLINICAL INFORMATION: Swelling COMPARISON: None TECHNIQUE: Attempted exam however patient the could not tolerate pressure and refused the exam. FINDINGS: Few images acquired of the RIGHT calf unremarkable. IMPRESSION: Nondiagnostic, patient did not tolerate pressure, declined the exam. DICTATED BY: Nabil Lopez MD DATE/TIME DICTATED:06/22/171149 ETHYLBENZENE CRACKING SUPERVISOR:SHELBIE DATE/TIME TRANSCRIBED:06/22/171149 CONFIDENTIAL, DO NOT COPY WITHOUT APPROPRIATE AUTHORIZATION. <Electronically signed in Other Vendor System> SIGNED BY: Nabil Lopez MD [id number] PATIENT: SIS MARTINI PRESENT AGE: 41 PATIENT ACCOUNT NO: [id number] : 76 LOCATION: [facility] ORDERING PHYSICIAN: Magdalena Rapp MD SERVICE DATE: 06/21/17- EXAM TYPE: RAD - XRY-PORTABLE CHEST XRAY EXAMINATION: XR PORTABLE CHEST CLINICAL INFORMATION: CHF COMPARISON: Chest 06/19/2017. CTA chest earlier same day TECHNIQUE: Portable frontal view of the chest was obtained. FINDINGS: There is opacification of the right base unchanged. Minimal opacification of the left base possibly atelectasis along with effusion as noted on prior CT. Cardiac silhouette is concomitant pulmonary vascularity unremarkable. IMPRESSION: No change compared with CTA performed same day. Persistent right lower lobe consolidation. Small bilateral effusions possibly atelectasis left base DICTATED BY: Dwayne Rivera MD DATE/TIME DICTATED:06/21/172113 ETHYLBENZENE CRACKING SUPERVISOR:SHELBIE DATE/TIME TRANSCRIBED:06/21/172113 CONFIDENTIAL, DO NOT COPY WITHOUT APPROPRIATE AUTHORIZATION. <Electronically signed in Other Vendor System> SIGNED BY: Dwayne Rivera MD 06/21 ======= PATIENT: SIS MARTINI PRESENT AGE: 41 PATIENT ACCOUNT NO: [id number] : [birth year] LOCATION: [facility] ORDERING PHYSICIAN: Nirmal Gustafson MD SERVICE DATE: 06/21/17 EXAM TYPE: CAT - CTA CHEST-PULMONARY EMBOLISM EXAMINATION: CT ANGIOGRAM OF THE CHEST WITH AND WITHOUT CONTRAST (CT PULMONARY ANGIOGRAM FOR PE) CLINICAL INFORMATION: SOB, LE swelling, elevated D-dimer COMPARISON: Chest x-ray June 19, 2017 TECHNIQUE: Prior to contrast administration, noncontrast localization images were obtained. Subsequently, multidetector volumetric imaging was performed from the thoracic inlet to below the diaphragms following the administration of 95 mL Optiray 350 intravenous contrast. No contrast reaction reported. Sagittal, coronal, and MIP oblique sagittal reformatted images were obtained on the CT workstation, uploaded to PACS, and reviewed. Total exam dose-length product 524.67 mGy-cm. FINDINGS: QUALITY OF STUDY/CONTRAST BOLUS: Satisfactory PULMONARY ARTERIES: No central or segmental pulmonary emboli. THORACIC AORTA: No aneurysm or dissection. LUNG: Asymmetric elevation of right diaphragm compared to left. Focal consolidation with air bronchograms in the right lower lobe posteriorly. PLEURA: Small layering right pleural effusion and left pleural effusion. MEDIASTINUM: Normal heart size. No pericardial effusion. No hilar or mediastinal lymphadenopathy. No evidence of septal bowing or right heart strain. CHEST WALL/AXILLA: No axillary or internal mammary lymphadenopathy. OSSEOUS STRUCTURES: Degenerative spondylosis of dorsal spine endplate spurring of the vertebrae. UPPER ABDOMEN: Unremarkable. No reflux of contrast into the hepatic veins to suggest elevated right heart pressures. IMPRESSION: 1. No evidence of pulmonary embolism. 2. Right lower lobe infiltrate. 3. Small bilateral pleural effusions. VTE: negative DICTATED BY: Vidal Hairston MD DATE/TIME DICTATED:06/21/17343 ETHYLBENZENE CRACKING SUPERVISOR:SHELBIE DATE/TIME TRANSCRIBED:06/21/17343 CONFIDENTIAL, DO NOT COPY WITHOUT APPROPRIATE AUTHORIZATION. <Electronically signed in Other Vendor System> SIGNED BY: Vidal Hairston MD 06/21/17 0351 Disposition Summary Disposition Principal Diagnosis: volume overload and SOB microcytic anemia Additional Diagnosis: hx of Jobs syndrome on chronic suppression abx therapy DM type 2 Discharge Disposition: SNF Discharge Instructions General Discharge Information Code Status: Full Code Patient's Diet: heart healthy and diabetic Patient's Activity: as tolerated Follow-Up Instructions/Appts: -Please follow-up with your primary care provider within 7 days after discharge. -please follow-up with your manager special events 7 days after discharge -Please follow-up with your GI doctor 7 days after discharge -We have made changes to your home medications, please read the instructions carefully. -Please come back to the hospital if your symptoms got worse. Medications at Discharge Discharge Medications: Stop taking the following medications: Aspirin (Ecotrin*) 81 MG TABLET. ORAL DAILY Omeprazole (Omeprazole) 20 MG CAPSULE. ORAL TWICE DAILY Qty = 60 Furosemide (Lasix) 20 MG TABLET ORAL DAILY Continue taking these medications: Lactobacillus Acidophilus (Acidophilus) 1 EACH CAPSULE 1 Capsule ORAL TWICE DAILY Comments: NOT GIVEN IN HOSPITAL Atorvastatin Calcium (Atorvastatin Calcium) 40 MG TABLET 1 Tablet ORAL DAILY Qty = 30 Comments: NOT GIVEN IN HOSPITAL Diphenhydramine HCl (Banophen) 50 MG CAPSULE 1 Capsule ORAL TWICE DAILY Comments: NOT GIVEN IN HOSPITAL IV GIVEN Last Taken: 05/02/17 Time: 3:00 PM Sennosides/Docusate Sodium (Docusate Sodium-Senna Tablet) 8.6 MG-50 MG TABLET 1 Tablet ORAL TWICE DAILY Comments: NOT GIVEN IN HOSPITAL Escitalopram Oxalate (Escitalopram Oxalate) 10 MG TABLET 1 Tablet ORAL DAILY Comments: NOT GIVEN IN HOSPITAL Magnesium Hydroxide (Milk Of Magnesia) 400 MG/5 ML ORAL.SUSP 30 Milliliters ORAL DAILY as needed for NO BM IN 3 DAYS Comments: NOT GIVEN IN HOSPITAL Prochlorperazine Maleate (Prochlorperazine Maleate) 10 MG TABLET 1 Tablet ORAL EVERY SIX HOURS as needed for COMPLAINTS OF NAUSEA Comments: NOT GIVEN IN HOSPITAL Oxycodone HCl (Oxycodone HCl) 15 MG TABLET 1 Tablet ORAL Q4H as needed for PAIN Comments: NOT GIVEN IN HOSPITAL Ascorbic Acid (Vitamin C) 500 MG TABLET 1 Tablet ORAL TWICE DAILY Comments: NOT GIVEN IN HOSPITAL Zolpidem Tartrate (Ambien) 10 MG TABLET 1 Tablet ORAL TAKE AT BEDTIME Comments: NOT GIVEN IN HOSPITAL Protein Supplement (Prosource) 275 GM POWDER 30 Milliliters ORAL THREE TIMES DAILY Comments: NOT GIVEN IN HOSPITAL Acetaminophen (Acephen) 650 MG SUPP.RECT 1 SUPPOSITORY RECTALLY Q4H as needed for PAIN/TEMP>101 Comments: NOT GIVEN IN HOSPITAL Acetaminophen (Mapap) 325 MG TABLET 2 Tablet ORAL Q4H as needed for PAIN/TEMP/>101 Comments: NOT GIVEN IN HOSPITAL Albuterol Sulfate (Albuterol Sulfate) 2.5 MG/3 ML (0.083 %) VIAL.NEB 1 VIAL Inhale through mouth Q6H as needed for SOB Comments: NOT GIVEN IN HOSPITAL Bisacodyl (Dulcolax) 10 MG SUPP.RECT 1 Suppository RECTAL DAILY as needed for NO BM Comments: NOT GIVEN IN HOSPITAL Na Phos,M-B/Na Phos,Di-Ba (Enema) 19 GRAM-7 GRAM/118 ML ENEMA 1 Enema RECTAL DAILY as needed for NO BM Comments: NOT GIVEN IN HOSPITAL Hydromorphone HCl (Hydromorphone HCl) 1 MG/ML LIQUID 3 Milliliters ORAL THURSDAY, THURSDAY AND THURSDAY Comments: not given in hospital Lidocaine (Lidoderm) 5 % ADH..PATCH 1 Patch ON SKIN DAILY Qty = 30 Comments: Last Taken:06/21/17 Time:0858 Cod Liver Oil/Zinc Oxide (Desitin Diaper Rash 40% Paste) 40 % PASTE..G. 1 Application On the skin TWICE DAILY Qty = 1 Comments: not given at hospital Phenyleph/Pramoxin/Glycr/W.pet (Hemorrhoidal Cream) 0.25 %-1 % CREAM..G. 1 Application RECTALLY EVERY SIX HOURS NEEDED as needed for Hemorrhoids Qty = 1 Comments: NOT GIVEN IN HOSPITAL Magnesium Chloride (Slow-Mag) 71.5 MG TABLET.DR 1 Tablet ORAL DAILY Qty = 7 Comments: NOT GIVEN IN HOSPITAL Insulin Aspart (Novolog) 100 UNIT/ML VIAL 0 Units Inject into fatty tissue AT BEDTIME Qty = 30 Instructions: Blood Glucose Insulin less than 250 0 units 251-300 2 units 301-350 3 units 351-400 4 units more than 400 5 units Comments: Last Taken: 06/24/17 Time: 1230 Insulin Aspart (Novolog) 100 UNIT/ML VIAL 0 Units Inject into fatty tissue 3 TIMES DAILY BEFORE MEALS Qty = 30 Instructions: Blood Sugar Insulin less than 80 no insulin 80-150 3 units 151-200 4 units 201-250 5 units 251-300 6 units 300-350 7 units 301-350 8 units 351-400 9 units Comments: Last Taken: 06/24/17 Time: 1230 Insulin Detemir (Levemir) 100 UNIT/ML VIAL 20 Units Inject into fatty tissue TWICE DAILY Comments: Last Taken: 06/24/17 Time: 933 Multivitamin,Ther and Minerals (Multivitamins With Minerals Hp) 1 EACH CAPSULE 1 Capsule ORAL DAILY Comments: NOT GIVEN IN HOSPITAL Prochlorperazine (Compazine) 25 MG SUPP.RECT 1 Suppository RECTALLY Q6H as needed for N/V Comments: NOT GIVEN IN HOSPITAL Cephalexin (Keflex) 500 MG CAPSULE 1 Capsule ORAL TWICE DAILY Qty = 90 Instructions: Start on May 07 (after Augmentin finishes). This will be continued indefinitely for suppression. Comments: Last Taken:06/24/17 Time:933 Pregabalin (Lyrica) 100 MG CAPSULE 1 Capsule ORAL TWICE DAILY Comments: Last Taken:06/24/17 Time:933 Mirtazapine (Remeron) 30 MG TABLET 1 Tablet ORAL TAKE AT BEDTIME Comments: Last Taken:06/23/17 Time:2211 Ergocalciferol (Vitamin D2) (Vitamin D2) 50,000 UNIT CAPSULE 1 Capsule ORAL Once a Week Comments: not given a hospital Albuterol Sulfate (Proair Hfa) 90 MCG HFA.AER.AD 2 Puff Inhale through mouth Q4H as needed for RESP. Comments: not given at hospital Start taking the following new medications: Furosemide (Lasix) 40 MG TABLET 40 Milligram ORAL 7:30AM & 4:30PM Qty = 60 Refills = 1 Comments: Last Taken:06/24/17 Time:933 Diphenhydramine HCl/Zinc Acet (Itch Relief Cream) 2 %-0.1 % CREAM..G. 1 Application On the skin EVERY 4 HOURS NEEDED as needed for Ithciness Qty = 5 No Refills Comments: Last Taken:06/24/17 Time:2004 Ferrous Sulfate (Ferrous Sulfate) 325 MG (65 MG IRON) TABLET. 325 Milligram ORAL TWICE DAILY Qty = 60 No Refills Instructions: please consume two times a day with food Comments: Last Taken:06/24/17 Time:933 Pantoprazole Sodium (Pantoprazole Sodium) 40 MG TABLET.DR 1 Tablet ORAL TWICE DAILY Qty = 60 Refills = 1 Comments: not given in hospital Copies To: Pradip FARFAN,Mehrdad Dowling; Naeem Oconnor MD Attending MD Review Statement Documenting Attending: Dwayne Bean MD Other Findings: The patient was seen and discussed with house staff. Agree with plan of care upon discharge. OK to discharge back to [place]. Will discontinue ASA and change PPI to pantoprazole. Close follow of BEP and H/H. Anemia appears to be mixed (iron deficiency and anemia of chronic disease). No evidence of current GI bleeding. Dr. Oconnor states the patient should have eventual follow-up EGD to document healing of ulcer.
[2017-06-24] MEDS ORDERED: PANTOPRAZOLE SO40 M1 PO (11:35)
--- NOTE | 2017-06-24 11:43 | Patient Discharge Instructions ---
Discharge Instructions General Discharge Information You were seen/treated for: volume overload and SOB Anemia Watch for these problems: Severe chest pain, palpitation, nausea, vomiting, increased swelling, dizziness, change in stool color, bleeding, or worsening of any other symptoms Special Instructions: -Please follow-up with your primary care provider within 7 days after discharge. -please follow-up with your turbinated bone grinder 7 days after discharge -Please follow-up with your GI doctor 7 days after discharge -We have made changes to your home medications, please read the instructions carefully. -Please come back to the hospital if your symptoms got worse. Diet Continue normal diet: No Recommended Diet: Diabetic Additional DIET Information: Heart healthy, 2 g sodium restriction Activity Full Activity/No Limits: No Activity Self Limited: Yes Acute Coronary Syndrome Inclusion Criteria At DC or during hospital stay patient has or had the following: ACS DIAGNOSIS No Discharge Core Measures Meds if any: Prescribed or Continued at Discharge Meds if any: NOT Prescribed or Continued at Discharge Congestive Heart Failure Inclusion Criteria At DC or during hospital stay patient has or had the following: CHF DIAGNOSIS No Discharge Core Measures Meds if any: Prescribed or Continued at Discharge Meds if any: NOT Prescribed or Continued at Discharge Cerebrovascular accident Inclusion Criteria At DC or during hospital stay patient has or had the following: CVA/TIA Diagnosis No Discharge Core Measures Meds if any: Prescribed or Continued at Discharge Meds if any: NOT Prescribed or Continued at Discharge Venous thromboembolism Inclusion Criteria VTE Diagnosis No VTE Type NONE VTE Confirmed by (Test) NONE Discharge Core Measures - Per Current guidelines, there needs to be overlap - treatment for the first 5 days of Warfarin therapy. - If discharged on Warfarin prior to 5 days of - overlap therapy, the patient will need to be - assessed for post discharge needs including - *Post discharge parental anticoagulation - *Warfarin and/or parental anticoagulation education - *Follow up date to check INR post discharge At least 5 days overlap therapy as Inpatient No Meds if any: Prescribed or Continued at Discharge Note: Overlap Therapy is Warfarin and Anticoagulant Meds if any: NOT Prescribed or Continued at Discharge
== END 2017-06-24 14:00 | DRG 663 ==
LOC: ERH 09:03 → ERHI 16:58 → 1NO 16:58 → ENRESERV 21:00 → ENTRNSPT 21:25 → EDTRNSPT 21:37 → EDTRNSPTSTS 21:37 → 1NO 21:42 → CMPTRNSPT 21:52 → 1NO 06-22 08:02 → ENPENDDIS 06-24 13:15 → 1NO 06-24 14:00
PROVIDERS: Physician Assistant Medical; Radiology Vascular & Interventional Radiology; Student in an Organized Health Care Education/Training Program
PROC: 30233N1 Transfusion of Nonautologous Red Blood Cells into Peripheral Vein, Percutaneous Approach (ICD-10-PCS; principal; 2017-06-21)
DX: D50.9 Iron deficiency anemia, unspecified (principal); E87.70 Fluid overload, unspecified; E11.40 Type 2 diabetes mellitus with diabetic neuropathy, unspecified; Z79.4 Long term (current) use of insulin; D71 Functional disorders of polymorphonuclear neutrophils; F11.20 Opioid dependence, uncomplicated; D63.8 Anemia in other chronic diseases classified elsewhere; F41.9 Anxiety disorder, unspecified; G89.4 Chronic pain syndrome; H91.90 Unspecified hearing loss, unspecified ear; E11.42 Type 2 diabetes mellitus with diabetic polyneuropathy; Z91.14 Patient's other noncompliance with medication regimen; F19.10 Other psychoactive substance abuse, uncomplicated; Z87.11 Personal history of peptic ulcer disease; I34.0 Nonrheumatic mitral (valve) insufficiency; I36.1 Nonrheumatic tricuspid (valve) insufficiency; I27.29 Other secondary pulmonary hypertension
CPT/HCPCS: 1NP; 36415; 71045; 81001; 82436; 86920; 87040; 93005; 93010; 93306; 93970; 97116-GO; 97161-GP; 97530-GO; 99291; J0131; J1200; J1650; J1940; J2930; P9016